=== PATIENT | female | born 1965 | race African-American/Black ===

== ENCOUNTER 2021-04-23 10:44 | Outpatient (CLI) | payer OTHER, SELFPAY ==
--- NOTE | 2021-04-23 | ECHO_ITS ---
Patient Info Name: Rosa Babb Age: 55 years : 1965 Gender: Female Ht: 62 in Wt: 220 lbs BSA: 2.14 m2 HR: 85 bpm BP: 115 / 69 mmHg Heart Rhythm: Sinus Rhythm Technical Quality: Good Exam Date: 04/23/2021 11:19 AM Exam Location: [facility] Patient Status: Outpatient Admit Date: 04/23/2021 Staff Ordering Physician: Aaron Smith MD Supervisor Special Effects: Lexi Attending Provider: Aaron Smith MD Referring Physician: Luis HERRON; Exam Type: CA echo doppler color flow Study Info Indications Z12.31 - Encounter for screening mammogram for malignant neoplasm of breast Complete two-dimensional, color flow and Doppler transthoracic echocardiogram is performed. Summary 1. Complete two-dimensional, color flow and Doppler transthoracic echocardiogram is performed. 2. Normal left ventricular size thickness and contractility, normal ejection fraction. 3. No valvular abnormalities. Left Ventricle Left ventricular chamber dimension is normal. Left ventricular systolic function is normal, estimated at 60-65%. The left ventricular diastolic function is normal. Right Ventricle Right ventricular chamber dimension is normal. Left Atria Left atrial chamber dimension is normal. Right Atria Right atrial chamber dimension is normal. Aortic Valve The aortic valve is normal. Pulmonic Valve The pulmonic valve is normal. Mitral Valve The mitral valve has normal leaflets. Tricuspid Valve The tricuspid valve leaflets are normal. Pericardium/Pleural The pericardium appears normal. Aorta The aortic root size at the sinus of Valsalva is normal. Left Ventricular Outflow Tract Name Value Normal LVOT 2D LVOT Diameter 2.0 cm LVOT Doppler LVOT Peak Gradient 6 mmHg LVOT Mean Gradient 4 mmHg LVOT VTI 25 cm LVOT VTI/AV VTI Ratio 0.5 LVOT Stroke Volume 81 ml LVOT CO 17.5 l/min LVOT CI 8.1 l/min/m2 Pulmonic Valve Name Value Normal PV Doppler PV Peak Gradient 6 mmHg Mitral Valve Name Value Normal MV Doppler MV Decel Angelina 336 cm/s2 MV PHT 68 ms MV Area (PHT) 3.3 cm2 4.0-5.0 MV Diastolic Function MV E Peak Velocity 78 cm/s MV A Peak Velocity 81
== END 2021-04-23 10:45 | disposition home or self-care (01) ==
LOC: ANHCARD 10:46
PROVIDERS: PCP Family Medicine; Visit Provider Internal Medicine Hematology & Oncology
DX: C50.012 Malignant neoplasm of nipple and areola, left female breast (principal); Z17.0 Estrogen receptor positive status [ER+]
CPT/HCPCS: 93306

== ENCOUNTER → 2021-06-21 01:10 | Outpatient (CLI) | payer OTHER, SELFPAY ==
[2021-06-21 22:45] LABS: SARS-CoV-2 RNA PCR Negative
== END ==
PROVIDERS: PCP Family Medicine
DX: Z01.812 Encounter for preprocedural laboratory examination (principal); C50.012 Malignant neoplasm of nipple and areola, left female breast; Z17.0 Estrogen receptor positive status [ER+]; Z20.822 Contact with and (suspected) exposure to COVID-19
CPT/HCPCS: C9803; U0003; U0005

== ENCOUNTER 2021-09-24 08:28 | Outpatient (CLI) | payer OTHER, SELFPAY ==
--- NOTE | 2021-09-24 | ECHO_ITS ---
Patient Info Name: Rosa Babb Age: 56 years : 1965 Gender: Female Ht: 63 in Wt: 215 lbs BSA: 2.13 m2 HR: 78 bpm BP: 141 / 83 mmHg Technical Quality: Fair Exam Date: 09/24/2021 9:20 AM Exam Location: [facility] Patient Status: Outpatient Admit Date: 09/24/2021 Staff Ordering Physician: Aaron Smith MD Z[employer] Technician: Elina Beckett RDCS Attending Provider: Aaron Smith MD Referring Physician: Luis HERRON; Exam Type: CA echo doppler color flow Study Info Indications - MALIGNANT NEOPLASM OF TH E LEFT BREAST Complete two-dimensional, color flow and Doppler transthoracic echocardiogram is performed. Summary 1. Complete two-dimensional, color flow and Doppler transthoracic echocardiogram is performed. 2. Left ventricular chamber dimension is normal. 3. Left ventricular systolic function is normal, estimated at 60-65%. 4. There is mildly increased left ventricular wall thickness. 5. The left ventricular diastolic function is grade I diastolic dysfunction. 6. E/e' 9 is minimally elevated. 7. There is mild aortic valve sclerosis. 8. There is trace mitral valve regurgitation. 9. No pulmonary hypertension, estimated pulmonary arterial systolic pressure is 35 mmHg. Left Ventricle E/e' 9 is minimally elevated. Left ventricular chamber dimension is normal. Left ventricular systolic function is normal, estimated at 60-65%. There is mildly increased left ventricular wall thickness. The left ventricular diastolic function is grade I diastolic dysfunction. Right Ventricle Right ventricular chamber dimension is normal. Right ventricular systolic function is normal. Left Atria Left atrial chamber dimension is normal. Right Atria Right atrial chamber dimension is normal. Aortic Valve The aortic valve is trileaflet. There is mild aortic valve sclerosis. There is no aortic valve stenosis. There is no aortic valve regurgitation. Pulmonic Valve There is no pulmonic regurgitation. Mitral Valve There is no mitral valve stenosis. There is trace mitral valve regurgitation. Tricuspid Valve There is no tricuspid valve regurgitation. No pulmonary hypertension, estimated pulmonary arterial systolic pressure is 35 mmHg. Pericardium/Pleural There is no pericardial effusion. Inferior Vena Cava Normal inferior vena cava with >50% collapse upon inspiration consistent with normal right atrial pressure, 5 mmHg. Aorta The aortic root size at the sinus of Valsalva is normal. Left Ventricular Outflow Tract Name Value Normal LVOT 2D LVOT Diameter 2.0 cm LVOT Doppler LVOT Peak Gradient 5 mmHg LVOT Mean Gradient 3 mmHg LVOT VTI 22 cm LVOT VTI/AV VTI Ratio 0.7 LVOT Stroke Volume 70 ml LVOT CO 13.7 l/min LVOT CI 6.5 l/min/m2 Pulmonic Valve Name Value
== END 2021-09-24 08:29 | disposition home or self-care (01) ==
LOC: ANHCARD 08:32
PROVIDERS: PCP Family Medicine; Visit Provider Internal Medicine Hematology & Oncology
DX: C50.012 Malignant neoplasm of nipple and areola, left female breast (principal); Z17.0 Estrogen receptor positive status [ER+]; I35.1 Nonrheumatic aortic (valve) insufficiency
CPT/HCPCS: 93306

== ENCOUNTER 2021-10-20 13:40 | Outpatient (CLI) | payer OTHER, SELFPAY ==
[2021-10-20 15:11] LABS: Cholesterol 207 mg/dL (0-200); HDL Direct 49 mg/dL; Triglycerides 154 mg/dL (<150)
[2021-10-20 15:16] LABS: Hemoglobin A1C 7.2 % (<5.7)
[2021-10-20 15:21] LABS: LDL Cholesterol Direct 108 mg/dL
[2021-10-20 15:46] LABS: Vitamin D 25 Hydroxy 30.7 ng/mL
== END 2021-10-20 13:41 | disposition home or self-care (01) ==
LOC: ANHLAB 13:44
PROVIDERS: PCP Family Medicine; Visit Provider Internal Medicine Hematology & Oncology
DX: E78.2 Mixed hyperlipidemia (principal); E11.9 Type 2 diabetes mellitus without complications; E55.9 Vitamin D deficiency, unspecified
CPT/HCPCS: 36415; 80061; 82306; 83036

== ENCOUNTER 2022-02-06 12:29 | Outpatient (CLI) | payer OTHER, SELFPAY ==
--- NOTE | 2022-02-06 | ECHO_ITS ---
Patient Info Name: Rosa Babb Age: 56 years : 1965 Gender: Female Ht: 61 in Wt: 222 lbs BSA: 2.14 m2 HR: 78 bpm BP: 136 / 73 mmHg Technical Quality: Fair Exam Date: 02/06/2022 12:58 PM Exam Location: [facility] Patient Status: Outpatient Admit Date: 02/06/2022 Staff Ordering Physician: Aaron Smith MD Hydrodynamics Teacher: Elina Beckett RDCS Attending Provider: Aaron Smith MD Referring Physician: Luis HERRON; Exam Type: CA echo doppler color flow Study Info Indications - MALIGNANT NEOPLASM LEFT BREAST Complete two-dimensional, color flow and Doppler transthoracic echocardiogram is performed. Summary 1. Complete two-dimensional, color flow and Doppler transthoracic echocardiogram is performed. 2. Left ventricular chamber dimension is normal. 3. Left ventricular systolic function is normal, estimated at 60-65%. 4. The left ventricular diastolic function is normal. 5. E/e' tissue doppler is not performed. 6. Global longitudinal strain is not performed. 7. No pulmonary hypertension, estimated pulmonary arterial systolic pressure is 31 mmHg. Left Ventricle E/e' tissue doppler is not performed. Global longitudinal strain is not performed. Left ventricular chamber dimension is normal. Left ventricular systolic function is normal, estimated at 60-65%. The left ventricular diastolic function is normal. Right Ventricle Right ventricular chamber dimension is normal. Right ventricular systolic function is normal. Left Atria Left atrial chamber dimension is normal. Right Atria Right atrial chamber dimension is normal. Aortic Valve The aortic valve is trileaflet. There is no aortic valve stenosis. There is no aortic valve regurgitation. Pulmonic Valve There is no pulmonic regurgitation. Mitral Valve There is no mitral valve stenosis. There is no mitral valve regurgitation. Tricuspid Valve There is no tricuspid valve regurgitation. No pulmonary hypertension, estimated pulmonary arterial systolic pressure is 31 mmHg. Pericardium/Pleural There is no pericardial effusion. Inferior Vena Cava Normal inferior vena cava with >50% collapse upon inspiration consistent with normal right atrial pressure, 5 mmHg. Aorta The aortic root size at the sinus of Valsalva is normal. Left Ventricular Outflow Tract Name Value Normal LVOT 2D LVOT Diameter 2.0 cm LVOT Doppler LVOT Peak Gradient 6 mmHg LVOT Mean Gradient 4 mmHg LVOT VTI 25 cm LVOT VTI/AV VTI Ratio 0.5 LVOT Stroke Volume 79 ml LVOT CO 17.9 l/min LVOT CI 8.4 l/min/m2 Pulmonic Valve Name Value Normal PV Doppler PV Peak Gradient
== END 2022-02-06 12:30 | disposition home or self-care (01) ==
LOC: ANHCARD 12:30
PROVIDERS: PCP Family Medicine; Visit Provider Internal Medicine Hematology & Oncology
DX: C50.012 Malignant neoplasm of nipple and areola, left female breast (principal); Z17.0 Estrogen receptor positive status [ER+]
CPT/HCPCS: 93306

== ENCOUNTER 2022-04-17 14:17 | Outpatient (CLI) | payer OTHER, SELFPAY ==
--- NOTE | 2022-04-17 | ECHO_ITS ---
Patient Info Name: Rosa Babb Age: 56 years : 1965 Gender: Female Ht: 62 in Wt: 249 lbs BSA: 2.29 m2 HR: 96 bpm BP: 163 / 80 mmHg Heart Rhythm: Sinus Rhythm Technical Quality: Fair Exam Date: 04/17/2022 2:42 PM Exam Location: [facility] Patient Status: Outpatient Admit Date: 04/17/2022 Staff Ordering Physician: Aaron Smith MD Supervisor Real Estate Office: Lexi Fried RDCS Attending Provider: Aaron Smith MD Referring Physician: Luis HERRON; Exam Type: CA echo doppler color flow Study Info Indications - Left breast cancer Complete two-dimensional, color flow and Doppler transthoracic echocardiogram is performed. Summary 1. Complete two-dimensional, color flow and Doppler transthoracic echocardiogram is performed. 2. Left ventricular chamber dimension is normal. 3. Left ventricular systolic function is normal, estimated at 65-70%. 4. The left ventricular diastolic function is grade II diastolic dysfunction. 5. E/e' 6 is not elevated. 6. There is moderate aortic valve sclerosis. 7. The mitral valve has mildly calcified leaflets. 8. There is trace tricuspid valve regurgitation. 9. No pulmonary hypertension, estimated pulmonary arterial systolic pressure is 21 mmHg. Left Ventricle E/e' 6 is not elevated. Left ventricular chamber dimension is normal. Left ventricular systolic function is normal, estimated at 65-70%. The left ventricular diastolic function is grade II diastolic dysfunction. Right Ventricle Right ventricular chamber dimension is normal. Right ventricular systolic function is normal. Left Atria Left atrial chamber dimension is normal. Right Atria Right atrial chamber dimension is normal. Aortic Valve The aortic valve is trileaflet. There is moderate aortic valve sclerosis. There is no aortic valve stenosis. There is no aortic valve regurgitation. Pulmonic Valve There is no pulmonic regurgitation. Mitral Valve The mitral valve has mildly calcified leaflets. There is no mitral valve stenosis. There is no mitral valve regurgitation. Tricuspid Valve There is trace tricuspid valve regurgitation. No pulmonary hypertension, estimated pulmonary arterial systolic pressure is 21 mmHg. Pericardium/Pleural There is no pericardial effusion. Inferior Vena Cava Normal inferior vena cava with >50% collapse upon inspiration consistent with normal right atrial pressure, 5 mmHg. Aorta The aortic root size at the sinus of Valsalva is normal. Left Ventricular Outflow Tract Name Value Normal LVOT 2D LVOT Diameter 2.0 cm LVOT Doppler LVOT Peak Gradient 9 mmHg LVOT Mean Gradient 4 mmHg LVOT VTI 23 cm LVOT VTI/AV VTI Ratio 0.5 LVOT Stroke Volume 69 ml LVOT CO 6.0 l/min LVOT CI 2.6 l/min/m2 Pulmonic Valve Name Value
== END 2022-04-17 14:18 | disposition home or self-care (01) ==
PROVIDERS: PCP Family Medicine; Visit Provider Internal Medicine Hematology & Oncology
DX: C50.012 Malignant neoplasm of nipple and areola, left female breast (principal); Z17.0 Estrogen receptor positive status [ER+]
CPT/HCPCS: 93306

== ENCOUNTER 2022-06-19 15:30 | Outpatient (RCR) | payer OTHER, SELFPAY ==
--- NOTE | 2022-04-14 10:12 | PTOPEVAL ---
PHYSICAL THERAPY EVALUATION AND PLAN OF CARE 04-14-22 Thank you for referring Rosa Babb to [facility] for the diagnosis of lymphedema. Mrs. Babb is scheduled to be seen for therapy? 2 x/week for 4 weeks. Please review, sign, date and return this plan of care LARRY. I agree with and certify that the following plan of care is medically necessary. Referring Physician Date Attending Provider: Chayo Zepeda MD Past Medical History Source of Past Medical History Patient Cardiovascular History Hx Hypertension Yes: meds Respiratory History Hx Asthma Yes Hx COVID-19 Yes: taste and smell still affected Hx Pneumonia Yes Endocrine History Hx Diabetes Yes: diet control/monitor Other History Hx Cancer Yes: L breast cancer Hx Chemotherapy Yes Hx Radiation Therapy Yes Hx Other Medical Conditions Yes: 229#- had lost about 25# with chemo, now starting to gain some back Evaluation Information Diagnosis lymphedema Onset January 2022 Prior Level of Function Activity Level (Last 3 Months) Occupation [employer]- off for summer Hand Dominance Right Activity of Daily Living Ability Independent Indoor/Home Mobility Independent Community Mobility Independent Stairs Ability Independent Functional Cognition (Planning, Shopping Independent , Taking Medications) Cooking Yes Cleaning Yes Laundry Yes Shopping Yes Driving Yes Home Setting Living Situation With Adult Child Support Available Local Family Support Comments Additional Prior Level of Function reports do not have all her Comments energy level back, about 75% of what she used to be; adult son just graduated college and lives with her; is walking for fitness; does not do any arm exercises Pain Assessment Self Report Self Report Pain Level 0 Pain Score Pain Score 0: Self Report General Upper Extremity Range of Motion Reason Not Measured WNL/Left,WNL/Right Gross Upper Extremity Range of Motion no pain reported with shoulder Comments motions General Upper Extremity Strength Reason Not Measured WNL/Left,WNL/Right Gross Upper Extremity Strength Comments reports doing all her home and self care task
--- NOTE | 2022-05-12 15:57 | PTOPEVAL ---
PHYSICAL THERAPY RE-EVALUATION AND UPDATED PLAN OF CARE 05-12-22 Refer to the clinical summary below, for her status today, compared to the initial evaluation. The goals were partially achieved. Continue PT treatment 1-2 x/week for 5 weeks. Thank you for referring Rosa Babb to [facility].? Please review, sign, date and return this updated plan of care LARRY. I agree with and certify that the following plan of care is medically necessary. Referring Physician Date Attending Provider: Chayo Zepeda MD Subjective Information Rosa reports: discomfort and Query Text:As Reported By Patient/ pain are less; still have the Family firm areas; doing her self massage and using the swell pad over the tight areas; is going to have the last infusion next week, then the following week, her port site will be taken out; returning to work on Jun 08 and want to continue to get the breast softer tissue; Pain Assessment Pain Scale Pain Scale Used Numeric (1 - 10) Self Report Pain Assessment Left Chest Reported Pain Level 1 Pain Description Soreness,Tightness Pain Frequency Chronic,Continuous Other Pain Description L breast and lateral trunk Lowest Pain Intensity 1 Greatest Pain Intensity 1 Additional Pain Score Comments pain is less and stays at 1/10 Interventions Used Interventions Used By Clinicians Education,Exercise General Upper Extremity Range of Motion Reason Not Measured WNL/Left,WNL/Right Gross Upper Extremity Range of Motion active L shoulder ROM is WNL Comments and reports tightness when horizontal adduction General Upper Extremity Strength Reason Not Measured WNL/Left,WNL/Right Gross Upper Extremity Strength Comments pt reports using L arm with home and self care tasks; good functional strength Skin Inspection Location Left Breast,Left Upper Extremity,Left Anterior Upper Quadrant Skin Observations [place] Tissue Texture Firm Lymphedema Stage II Skin Inspection Comment in supine: L breast fibrotic tissue measured out from nipple: - inner breast 7 cm-- reports of soreness with palpation; upper breast 1 cm- no tenderness; outer breast 10 cm- no ten
--- NOTE | 2022-06-19 16:06 | PTOPEVAL ---
PHYSICAL THERAPY DISCHARGE REPORT 06-19-22 Refer to the clinical summary below, for her status at discharge. The goals were partially achieved. Discharge PT services. Thank you for referring Rosa Babb to [facility].? Please review, sign, date and return this Discharge report LARRY. I agree with and certify that the following plan of care is medically necessary. Referring Physician Date Attending Provider: Chayo Zepeda MD Subjective Information Rosa reports: has been doing Query Text:As Reported By Patient/ her self massage, wearing the Family compression bra and everything is the same; does not want to be touched today-- just measure her arm and be done with therapy; She has returned to work and doing ok with work and everything at home. Pain Assessment Self Report Self Report Pain Level 0 Pain Score Pain Score 0: Self Report Lymphedema Evaluation LE Circumferential Measurement Left LE Lymphedema Side Left Total Left Lower Extremity Left LE: cm Circumferential Measurement (cm) Skin Inspection Location Left Upper Extremity Tissue Texture Firm Skin Inspection Comment L UE with good skin color; minimal fibrosis over upper- medial humerus area; in sitting, with posterior view, she has edema over R and L upper-lateral trunk; pt did not want her trunk or breast area examined today-- stated it is the same, nothing has changed ; education/review with pt: continue self MLD, skin monitor, wear compression over breasts and trunk; she did not have any questions ; reinforced with her to call if she has any other questions or concerns. And if need to continue therapy, would need a new dr order. UE Circumferential Measurement Left UE Lymphedema Side Left Mid-Proximal Third Finger (cm) 6.2 Palm (cm) 19.4 Wrist Crease (cm) 16 4 cm From Wrist (cm) 18.8 8 cm From Wrist (cm) 21.4 12 cm From Wrist (cm) 24.4 16 cm From Wrist (cm)
== END 2022-06-22 08:40 | disposition home or self-care (01) ==
LOC: ANHPT 15:30
PROVIDERS: PCP Family Medicine
DX: I89.0 Lymphedema, not elsewhere classified (principal); C50.012 Malignant neoplasm of nipple and areola, left female breast; Z17.0 Estrogen receptor positive status [ER+]
CPT/HCPCS: 97140; 97161

== ENCOUNTER 2022-12-07 15:08 | Outpatient (CLI) | payer OTHER, SELFPAY ==
[2022-12-07 18:36] LABS: Cholesterol 231 mg/dL (0-200); HDL Direct 50 mg/dL; Triglycerides 143 mg/dL (<150)
[2022-12-07 18:47] LABS: LDL Cholesterol Direct 116 mg/dL
== END 2022-12-07 15:09 | disposition home or self-care (01) ==
LOC: ANHLAB 15:09
PROVIDERS: PCP Family Medicine; Visit Provider Family Medicine
DX: E11.9 Type 2 diabetes mellitus without complications (principal); E78.2 Mixed hyperlipidemia
CPT/HCPCS: 36415; 80061; 83036

== ENCOUNTER 2023-01-26 13:40 | Outpatient (CLI) | payer OTHER, SELFPAY ==
--- NOTE | ~2023-01-26 | DEXA_ITS ---
Bone Density Report Name: KEVIN CHAKRABORTY Age: 57 Sex: Female Ethnicity: Black Date of : 1965 Indication: postmenopausal; screening for osteoporosis; height loss; cancer; asthma or emphysema; hysterectomy; Referring Provider: BOLA VASQUEZ Study: Bone densitometry was performed. Exam Date: January 26, 2023 Accession number: [id number] Bone Density: Region BMD T-score Z-score Classification AP Spine(L1-L4) 1.166 1.1 1.6 Normal Femoral Neck (Left) 0.802 -0.4 0.0 Normal Total Hip (Left) 1.084 1.2 1.1 Normal Femoral Neck (Right) 0.772 -0.7 -0.3 Normal Total Hip (Right) 0.984 0.3 0.4 Normal Total Hip Mean 1.034 0.8 0.8 Normal World Health Organization criteria for BMD impression classify patients as: Normal (T-score at or above -1.0), Osteopenia (T-score between -1.0 and -2.5), or Osteoporosis (T-score at or below -2.5). 10-year Fracture Risk: FRAX not reported because: All T-scores for Spine Total, Hip Total, Femoral Neck at or above -1.0 Clinical Information Provided by Patient: Has the following medical conditions: Asthma or Emphysema, Cancer, Hysterectomy Patient maximum height was 62 Menopause Age: 38 No regular weight bearing exercise Drinks caffeinated beverages Onset of menses at age 11 Number of children 1 Impression: The patient has normal bone mass. Discussion: BONE DENSITY IS ABOVE THE MINIMUM DESIRABLE LEVEL AT ALL SKELETAL SITES TESTED. This patient?s bone mineral density is above the minimum desirable level (T-score -1.0 or better) at all sites measured. The patient should follow a healthful lifestyle (good nutrition with adequate calcium and vitamin D, and appropriate weight-bearing exercise). Follow-Up: Consider repeating this study in 5 years or sooner if there is some new clinical indication. Reported by: NYLA on 01/26/2023 2:06:00 PM. Reviewed, dictated and finalized at location [facility]
== END 2023-01-26 13:41 | disposition home or self-care (01) ==
PROVIDERS: PCP Family Medicine; Visit Provider Internal Medicine Hematology & Oncology
DX: M85.89 Other specified disorders of bone density and structure, multiple sites (principal)
CPT/HCPCS: 77080

== ENCOUNTER 2023-07-26 15:13 | Outpatient (CLI) | payer OTHER, SELFPAY ==
[2023-07-26 15:28] LABS: Basophils Percent Auto 0.2 % (0.2-1.2); Hematocrit 39.7 % (37.0-47.0); Hemoglobin 12.9 g/dL (12.0-15.0); Immature Granulocyte Absolute 0.01 K/mm3 (0.00-0.031); Immature Granulocyte Percent A 0.2 % (0-0.5); Lymphocytes Absolute Auto 1.68 K/mm3 (0.9-3.2); Mean Corpuscular HGB Conc 32.5 g/dl (32-36); Mean Corpuscular Hemoglobin 27.8 pg (26-34); Mean Corpuscular Volume 85.6 fl (80-100); Mean Platelet Volume 9.2 fl (7.4-10.4); Monocytes Absolute Auto 0.4 K/mm3 (0.1-0.6); Neutrophils Absolute Auto 4.4 K/mm3 (1.3-6.7); Neutrophils Percent Auto 67.6 % (45.5-73.1); Platelet Count Result 285 k/mm3 (150-375); Red Blood Count 4.64 M/mm3 (4.2-5.4); Red Cell Distribution Width 13.2 % (11.5-14.5); White Blood Count 6.5 K/mm3 (4.5-10.0)
[2023-07-26 16:43] LABS: Cholesterol 223 mg/dL (0-200); HDL Direct 65 mg/dL; Triglycerides 88 mg/dL (<150)
[2023-07-26 16:44] LABS: Alanine Aminotransferase 19 U/L (6-35); Albumin Level 4.1 g/dL (3.5-5.1); Alkaline Phosphatase 84 U/L (38-126); Anion Gap 6 mmol/L (8-16); Aspartate Amino Transferase 23 U/L (14-36); Bilirubin,Total 0.3 mg/dL (0.2-1.3); Blood Urea Nitrogen 12 mg/dL (7-17); Calcium 9.1 mg/dL (8.4-10.2); Carbon Dioxide 31 mmol/L (22-30); Chloride 104 mmol/L (98-107); Estimated Glomerular Filt Rate > 60; Glucose 105 mg/dL (65-110); Potassium 3.5 mmol/L (3.4-5.0); Sodium 141 mmol/L (137-145)
[2023-07-26 16:45] LABS: Creatinine Urine 217.9 mg/dL
[2023-07-26 16:50] LABS: MALB Creatinine Ratio 3.1 mg/g (0-30); Microalbumin Urine Random 6.8 mg/L (0-16.7)
[2023-07-26 16:54] LABS: LDL Cholesterol Direct 123 mg/dL
[2023-07-26 16:58] LABS: Hemoglobin A1C 6.3 % (<5.7)
[2023-07-29 05:23] LABS: CA 15-3 18 U/mL (<32)
== END 2023-07-26 15:14 | disposition home or self-care (01) ==
PROVIDERS: PCP Family Medicine; Visit Provider Internal Medicine Hematology & Oncology
DX: E78.2 Mixed hyperlipidemia (principal); R79.0 Abnormal level of blood mineral; E11.9 Type 2 diabetes mellitus without complications; R53.83 Other fatigue; C50.012 Malignant neoplasm of nipple and areola, left female breast; Z17.0 Estrogen receptor positive status [ER+]
CPT/HCPCS: 36415; 80053; 80061; 82043; 82728; 83036; 84443; 85025; 86300

== ENCOUNTER 2023-11-30 15:27 | Outpatient (CLI) | payer OTHER, SELFPAY ==
[2023-11-30 15:48] LABS: Basophils Percent Auto 0.2 % (0.2-1.2); Hematocrit 40.5 % (37.0-47.0); Hemoglobin 13.1 g/dL (12.0-15.0); Immature Granulocyte Absolute 0.01 K/mm3 (0.00-0.031); Immature Granulocyte Percent A 0.2 % (0-0.5); Lymphocytes Absolute Auto 1.64 K/mm3 (0.9-3.2); Lymphocytes Percent Auto 29.7 % (18.3-44.2); Mean Corpuscular HGB Conc 32.3 g/dl (32-36); Mean Corpuscular Hemoglobin 27.5 pg (26-34); Mean Corpuscular Volume 84.9 fl (80-100); Mean Platelet Volume 9.6 fl (7.4-10.4); Monocytes Absolute Auto 0.5 K/mm3 (0.1-0.6); Monocytes Percent Auto 8.5 % (2.6-8.5); Neutrophils Absolute Auto 3.4 K/mm3 (1.3-6.7); Neutrophils Percent Auto 61.4 % (45.5-73.1); Platelet Count Result 275 k/mm3 (150-375); Red Blood Count 4.77 M/mm3 (4.2-5.4); Red Cell Distribution Width 12.9 % (11.5-14.5); White Blood Count 5.5 K/mm3 (4.5-10.0)
[2023-11-30 16:28] LABS: Alanine Aminotransferase 16 U/L (6-35); Alkaline Phosphatase 77 U/L (38-126); Anion Gap 5 mmol/L (8-16); Aspartate Amino Transferase 20 U/L (14-36); Bilirubin,Total 0.3 mg/dL (0.2-1.3); Blood Urea Nitrogen 16 mg/dL (7-17); Calcium 9.9 mg/dL (8.4-10.2); Carbon Dioxide 31 mmol/L (22-30); Chloride 103 mmol/L (98-107); Estimated Glomerular Filt Rate > 60; Glucose 115 mg/dL (65-110); Potassium 3.9 mmol/L (3.4-5.0); Sodium 139 mmol/L (137-145)
[2023-11-30 17:19] LABS: Hemoglobin A1C 6.1 % (<5.7)
[2023-12-03 06:31] LABS: CA 15-3 18 U/mL (<32)
== END 2023-11-30 15:28 | disposition home or self-care (01) ==
LOC: ANHLAB 15:29
PROVIDERS: PCP Family Medicine; Visit Provider Internal Medicine Hematology & Oncology
DX: C50.012 Malignant neoplasm of nipple and areola, left female breast (principal); Z17.0 Estrogen receptor positive status [ER+]; E11.9 Type 2 diabetes mellitus without complications
CPT/HCPCS: 36415; 80053; 83036; 85025; 86300

== ENCOUNTER 2024-03-31 09:54 | Outpatient (CLI) | payer OTHER, SELFPAY ==
[2024-03-31 10:10] LABS: Basophils Percent Auto 0.2 % (0.2-1.2); Hematocrit 41.6 % (37.0-47.0); Hemoglobin 13.5 g/dL (12.0-15.0); Immature Granulocyte Absolute 0.01 K/mm3 (0.00-0.031); Immature Granulocyte Percent A 0.2 % (0-0.5); Lymphocytes Absolute Auto 1.42 K/mm3 (0.9-3.2); Lymphocytes Percent Auto 26.2 % (18.3-44.2); Mean Corpuscular HGB Conc 32.5 g/dl (32-36); Mean Corpuscular Hemoglobin 27.9 pg (26-34); Mean Platelet Volume 9.5 fl (7.4-10.4); Monocytes Absolute Auto 0.3 K/mm3 (0.1-0.6); Monocytes Percent Auto 5.9 % (2.6-8.5); Neutrophils Absolute Auto 3.7 K/mm3 (1.3-6.7); Neutrophils Percent Auto 67.5 % (45.5-73.1); Platelet Count Result 292 k/mm3 (150-375); Red Blood Count 4.84 M/mm3 (4.2-5.4); Red Cell Distribution Width 13.3 % (11.5-14.5); White Blood Count 5.4 K/mm3 (4.5-10.0)
[2024-03-31 12:48] LABS: Alanine Aminotransferase 17 U/L (6-35); Alkaline Phosphatase 80 U/L (38-126); Anion Gap 5 mmol/L (4-12); Aspartate Amino Transferase 23 U/L (14-36); Bilirubin,Total 0.4 mg/dL (0.2-1.3); Blood Urea Nitrogen 10 mg/dL (7-17); Calcium 9.1 mg/dL (8.4-10.2); Carbon Dioxide 29 mmol/L (22-30); Chloride 107 mmol/L (98-107); Estimated Glomerular Filt Rate > 60; Glucose 132 mg/dL (65-110); Potassium 3.3 mmol/L (3.4-5.0); Sodium 141 mmol/L (137-145)
[2024-04-04 07:09] LABS: CA 15-3 19 U/mL (<32)
== END 2024-03-31 09:55 | disposition home or self-care (01) ==
LOC: ANHLAB 09:56
PROVIDERS: PCP Family Medicine; Visit Provider Internal Medicine Hematology & Oncology
DX: C50.012 Malignant neoplasm of nipple and areola, left female breast (principal); Z17.0 Estrogen receptor positive status [ER+]
CPT/HCPCS: 36415; 80053; 85025; 86300

== ENCOUNTER 2024-07-26 14:52 | Outpatient (CLI) | payer OTHER, SELFPAY ==
[2024-07-26 15:16] LABS: Basophils Percent Auto 0.2 % (0.2-1.2); Hematocrit 40.3 % (37.0-47.0); Hemoglobin 13.1 g/dL (12.0-15.0); Immature Granulocyte Absolute 0.02 K/mm3 (0.00-0.031); Immature Granulocyte Percent A 0.3 % (0-0.5); Lymphocytes Absolute Auto 1.59 K/mm3 (0.9-3.2); Mean Corpuscular HGB Conc 32.5 g/dl (32-36); Mean Corpuscular Hemoglobin 27.9 pg (26-34); Mean Corpuscular Volume 85.7 fl (80-100); Mean Platelet Volume 9.4 fl (7.4-10.4); Monocytes Absolute Auto 0.5 K/mm3 (0.1-0.6); Monocytes Percent Auto 7.4 % (2.6-8.5); Neutrophils Absolute Auto 4.3 K/mm3 (1.3-6.7); Neutrophils Percent Auto 67.1 % (45.5-73.1); Platelet Count Result 256 k/mm3 (150-375); Red Cell Distribution Width 13.1 % (11.5-14.5); White Blood Count 6.4 K/mm3 (4.5-10.0)
[2024-07-26 16:29] LABS: Alanine Aminotransferase 24 U/L (6-35); Alkaline Phosphatase 95 U/L (38-126); Anion Gap 8 mmol/L (4-12); Aspartate Amino Transferase 26 U/L (14-36); Bilirubin,Total 0.2 mg/dL (0.2-1.3); Blood Urea Nitrogen 15 mg/dL (7-17); Calcium 9.3 mg/dL (8.4-10.2); Carbon Dioxide 26 mmol/L (22-30); Chloride 106 mmol/L (98-107); Estimated Glomerular Filt Rate > 60; Glucose 92 mg/dL (65-110); Potassium 4.2 mmol/L (3.4-5.0); Sodium 140 mmol/L (137-145)
[2024-07-27 07:35] LABS: CA 15-3 19 U/mL (<32)
== END 2024-07-26 14:53 | disposition home or self-care (01) ==
LOC: ANHLAB 14:55
PROVIDERS: Visit Provider Internal Medicine Hematology & Oncology
DX: C50.012 Malignant neoplasm of nipple and areola, left female breast (principal); Z17.0 Estrogen receptor positive status [ER+]
CPT/HCPCS: 36415; 80053; 85025; 86300

== ENCOUNTER 2024-10-02 14:46 | Outpatient (CLI) | payer OTHER, SELFPAY ==
--- NOTE | ~2024-10-02 | DEXA_ITS ---
Bone Density Report Name: KEVIN CHAKRABORTY Age: 59 Sex: Female Ethnicity: Black Date of : 1965 Indication: postmenopausal; screening for osteoporosis; height loss; cancer; asthma or emphysema; hysterectomy; Referring Provider: BOLA VASQUEZ Study: Bone densitometry was performed. Exam Date: October 02, 2024 Accession number: [id number] Bone Density: Region BMD T-score Z-score Classification AP Spine(L1-L4) 1.130 0.8 1.5 Normal Femoral Neck (Left) 0.800 -0.4 0.0 Normal Total Hip (Left) 1.010 0.6 0.7 Normal Femoral Neck (Right) 0.737 -1.0 -0.4 Normal Total Hip (Right) 0.982 0.3 0.5 Normal Total Hip Mean 0.996 0.5 0.6 Normal World Health Organization criteria for BMD impression classify patients as: Normal (T-score at or above -1.0), Osteopenia (T-score between -1.0 and -2.5), or Osteoporosis (T-score at or below -2.5). 10-year Fracture Risk: FRAX not reported because: All T-scores for Spine Total, Hip Total, Femoral Neck at or above -1.0 Previous Exams: Region Exam Age BMD T-score BMD Change BMD Change Date g/cm2 vs Baseline vs Previous AP Spine (L1-L4) 10/02/2024 59 1.130 0.8 -0.035 (-3.0%) -0.035 (-3.0%) 01/26/2023 57 1.166 1.1 Total Hip(Left) 10/02/2024 59 1.010 0.6 -0.075 (-6.9%) -0.075 (-6.9%) 01/26/2023 57 1.084 1.2 Total Hip(Right) 10/02/2024 59 0.982 0.3 -0.002 (-0.2%) -0.002 (-0.2%) 01/26/2023 57 0.984 0.3 *Denotes significance at 95% confidence level, LSC for AP Spine = 0.022 g/cm2, LSC for Total Hip = 0.027 g/cm2 Clinical Information Provided by Patient: Has the following medical conditions: Asthma or Emphysema, Cancer, Hysterectomy, breast ca Patient maximum height was 62 Menopause Age: 38 No regular weight bearing exercise Drinks caffeinated beverages Onset of menses at age 11 Number of children 1 Impression: The patient has normal bone mass. The BMD for the AP Spine (L1-L4) decreased, changing by -3.0% since the last DXA exam. The BMD for the Total Hip(Left) decreased, changing by -6.9% since the last DXA exam. Discussion: BONE DENSITY IS ABOVE THE MINIMUM DESIRABLE LEVEL AT ALL SKELETAL SITES TESTED. This patient?s bone mineral density is above the minimum desirable level (T-score -1.0 or better) at all sites measured. The patient should follow a healthful lifestyle (good nutrition with adequate calcium and vitamin D, and appropriate weight-bearing exercise). Follow-Up: Consider repeating this study in 3 to 4 years to reassess this patient's status, or sooner if there is some new clinical indication. Reported by: PIERCE on 10/02/2024 3:15:00 PM. Reviewed, dictated and finalized at location A. [facility]
== END 2024-10-02 14:47 | disposition home or self-care (01) ==
LOC: ANHIMG 14:48
PROVIDERS: PCP Family Medicine; Visit Provider Internal Medicine Hematology & Oncology
DX: M85.89 Other specified disorders of bone density and structure, multiple sites (principal)
CPT/HCPCS: 77080

== ENCOUNTER 2024-10-16 00:27 | Day surgery (SDC) | payer OTHER, SELFPAY ==
[2024-10-05 14:40] VITALS: BMI 39.2
[2024-10-16 10:51] VITALS: BP 178/82; PULSE 86; RESP 16; TEMP 36.1; O2SAT 98
[2024-10-16] MEDS: LACTATED RINGERS 1,000 ML 150 ML IV CONT (11:01)
[2024-10-16 11:12] LABS: Glucose Point of Care 72 mg/dl (65-105)
--- NOTE | 2024-10-16 11:42 | WPDANESEPPF ---
Anes - Initial Pre Proc Eval Procedure: Operation Date: 10/16/24 12:30 Proposed Procedures p Screening Colonoscopy - Anshul Mccoy MD Date/Time: 10/16/24 11:42 Surgeon: Anshul Mccoy MD Pre Op Diagnosis: neoplasm screening Patient Data Age: 59 Gender: F Height: 1.57 m Weight: 96.5 kg Last Vital Signs Temp 97.0 F L 10/16/24 10:51 Pulse 86 10/16/24 10:51 Resp 16 10/16/24 10:51 BP 178/82 H 10/16/24 10:51 Pulse Ox 98 10/16/24 10:51 O2 Del Method Room Air 10/16/24 10:51 Allergies Allergy/AdvReac Type Severity Reaction Status Date / Time latex Allergy Mild Rash Verified 10/16/24 10:48 Home Medications ?Medication ?Instructions ?Recorded ?Confirmed ?Type anastrozole 1 mg tablet (Arimidex) 1 mg PO DAILY 10/13/21 10/16/24 History cholecalciferol (vitamin D3) 25 25 mcg PO DAILY #30 caps 10/13/21 10/16/24 Rx mcg (1,000 unit) capsule clobetasol 0.05 % topical cream 1 applic topical DAILY #90 grams 04/01/22 10/05/24 Rx montelukast 10 mg tablet 10 mg PO QHS #90 tabs 11/09/22 10/05/24 Rx fluticasone 500 mcg-salmeterol 50 1 inh inhalation Q12H 03/23/23 10/05/24 History mcg/dose blistr powdr for inhalation (Advair Diskus) budesonide 160 mcg-glycopyr 9 2 inh inhalation BID #10.7 grams 05/10/23 10/16/24 Rx mcg-formot 4.8 mcg/actuation HFA inhaler (Breztri Aerosphere) albuterol sulfate 90 mcg/actuation 1 inh inhalation QID PRN Shortness 02/10/24 10/16/24 Rx aerosol inhaler Of Breath Or Wheezing #3 device dulaglutide 0.75 mg/0.5 mL 0.75 mg (0.5 mL) subcut WEEKLY #6 06/22/24 10/05/24 Rx subcutaneous pen injector mL (Trulicity) atorvastatin 10 mg tablet 10 mg PO DAILY #90 tabs 08/01/24 10/16/24 Rx Laboratory Tests 10/16/24 11:10 POC Capillary Glucose 72 mg/dl (65-105) Patient hx anesthesia problems: none Family hx anesthesia problems: none Results Review: All pre-operative results and documents have been reviewed as part of the pre-operative evaluation. [facility] Past Medical History Medical History BRADY (obstructive sleep apnea) Vitamin D deficiency Malignant neoplasm of breast Hyperlipidemia associated with type 2 diabetes mellitus Mild persistent asthma Diabetes Essential hypertension Surgical History Surgical History History of lumpectomy of left breast H/O: hysterectomy Family History Family History Mother Diabetes mellitus Depression Hypertension High cholesterol Brain cancer Glaucoma Father Diabetes mellitus Hypertension Cerebrovascular accident Social History Social History Smoking status: Never smoker Second hand tobacco smoke exposure: No Alcohol intake: never Alcohol use details: rare Substance use: never Substance use type: does not use Lack of Transportation: No Lack of Food: Never True Current Housing: I Have Housing Concerned About Future Housing: No Difficulty Paying Gas/Electric Bills: No Difficulty Paying for Meds: No Currently Unemployed: No Education: Associate Degree Difficulty w/ Childcare or Family Care: No Living arrangements: with family Occupation/Education: occupation Gender identity (if verbalized by the patient): Female Spiritual care concerns: No Agree to blood products: Yes Anes - Eval Final PreProcedure Day of Procedure 10/16/24 11:42 Patient weight: obese Heart: regular rate and rhythm Lungs: clear to auscultation Airway: Mallampati scale class II Neurological: alert and oriented Last oral intake: >/= 8 hours ASA classification: III Emergent: no Anesthetic plan: proceed Anesthesia type and monitoring: general GIVS and standard monitoring Results Review: All pre-operative results and documents have been reviewed as part of the pre-operative evaluation. Hyperlipidemia, obesity, breast ca, in remission. Informed Consent: The patient's anesthetic plan and its attendant risks and benefits were discussed with the patient/family/POA. Questions were solicited and answers provided to the satisfaction of the patient/family/POA.
--- NOTE | 2024-10-16 11:49 | PM.HPGS ---
History of Present Illness History of Present Illness Consent: Risks, benefits, and alternatives have been discussed and questions answered. Patient agrees to proceed with procedure. Chief complaint: neoplasm screening Narrative: Rosa Babb is a 59 year old female here for screening colonoscopy, last one 10 years ago Review of Systems Review of Systems: All systems reviewed & are unremarkable except as noted in HPI and below PMFSH Past Medical History Medical History (Updated 10/16/24 @ 11:49 by Anshul Mccoy MD) Colon cancer screening BRADY (obstructive sleep apnea) Vitamin D deficiency Malignant neoplasm of breast Hyperlipidemia associated with type 2 diabetes mellitus Mild persistent asthma Diabetes Essential hypertension Surgical History Surgical History History of lumpectomy of left breast H/O: hysterectomy Family History Family History Mother Diabetes mellitus Depression Hypertension High cholesterol Brain cancer Glaucoma Father Diabetes mellitus Hypertension Cerebrovascular accident Social History Social History Smoking status: Never smoker Second hand tobacco smoke exposure: No Alcohol intake: never Alcohol use details: rare Substance use: never Substance use type: does not use Lack of Transportation: No Lack of Food: Never True Current Housing: I Have Housing Concerned About Future Housing: No Difficulty Paying Gas/Electric Bills: No Difficulty Paying for Meds: No Currently Unemployed: No Education: Associate Degree Difficulty w/ Childcare or Family Care: No Living arrangements: with family Occupation/Education: occupation Gender identity (if verbalized by the patient): Female Spiritual care concerns: No Agree to blood products: Yes Meds Home Medications and Allergies Home Medications ?Medication ?Instructions ?Recorded ?Confirmed ?Type anastrozole 1 mg tablet (Arimidex) 1 mg PO DAILY 10/13/21 10/16/24 History cholecalciferol (vitamin D3) 25 25 mcg PO DAILY #30 caps 10/13/21 10/16/24 Rx mcg (1,000 unit) capsule clobetasol 0.05 % topical cream 1 applic topical DAILY #90 grams 04/01/22 10/05/24 Rx montelukast 10 mg tablet 10 mg PO QHS #90 tabs 11/09/22 10/05/24 Rx fluticasone 500 mcg-salmeterol 50 1 inh inhalation Q12H 03/23/23 10/05/24 History mcg/dose blistr powdr for inhalation (Advair Diskus) budesonide 160 mcg-glycopyr 9 2 inh inhalation BID #10.7 grams 05/10/23 10/16/24 Rx mcg-formot 4.8 mcg/actuation HFA inhaler (Breztri Aerosphere) albuterol sulfate 90 mcg/actuation 1 inh inhalation QID PRN Shortness 02/10/24 10/16/24 Rx aerosol inhaler Of Breath Or Wheezing #3 device dulaglutide 0.75 mg/0.5 mL 0.75 mg (0.5 mL) subcut WEEKLY #6 06/22/24 10/05/24 Rx subcutaneous pen injector mL (Trulicity) atorvastatin 10 mg tablet 10 mg PO DAILY #90 tabs 08/01/24 10/16/24 Rx Allergies Allergy/AdvReac Type Severity Reaction Status Date / Time latex Allergy Mild Rash Verified 10/16/24 10:48 Vital Signs Vital Signs - 24 hr 10/16/24 10:51 Temperature 97.0 F L Pulse Rate 86 Respiratory Rate 16 Blood Pressure 178/82 H Pulse Oximetry 98 Oxygen Delivery Room Air Exam Const: General: comfortable and no acute distress HENMT: Face/Nose/Sinus: Normal nares present Eyes: General: appearance normal, both eyes and all related structures Neck: Neck: no JVD Resp: Auscultation: clear to auscultation bilaterally Cardio: Rate: regular rate Rhythm: regular rhythm GI: Inspection: non-distended GI Palp: Yes Soft to palpation Skin: General skin exam: normal color Neuro: General: gait normal Speech: normal speech Extrem: General: normal to inspection Psych: Mental Status: mental status grossly normal Assessment and Plan Assessment and plan (1) Colon cancer screening: Code(s): Z12.11 - Encounter for screening for malignant neoplasm of colon Status: Acute Assessment and Plan: colonoscopy
[2024-10-16 12:06] VITALS: BP 136/67; PULSE 82; RESP 18; O2SAT 100
[2024-10-16 12:16] VITALS: BP 153/72; PULSE 77; RESP 22; O2SAT 100
[2024-10-16 12:26] VITALS: BP 157/79; PULSE 67; RESP 20; O2SAT 100
[2024-10-16 12:36] LABS: Glucose Point of Care 54 mg/dl (65-105)
--- NOTE | 2024-10-16 12:38 | SUR.PHASEII ---
Notified of patients low blood sugar of 54, patient is not having symptoms. Patient was given crackers and juice.
[2024-10-16 12:55] LABS: Glucose Point of Care 54 mg/dl (65-105)
--- NOTE | 2024-10-16 13:16 | SUR.PHASEII ---
Patients blood sugar was 88, was notified
[2024-10-16 13:17] LABS: Glucose Point of Care 88 mg/dl (65-105)
--- OUTSIDE RECORDS SUMMARY | 2024-10-23 02:07 | XMS_ITS ---
Author Organization [facility] Address [address] [place] [address] Phone Care Team Providers Care Alarm Installation Technician Name Role Phone MARIUM العلي, EROS Lucas Unavailable [phone] Problems Includes: Active, inactive, and resolved Problems All Visits Onset Date Resolved Date Provider Condition S tatus Breast Neoplasm Malignant 12/26/2020 PABLO TA RN [facility] Active Last Documented On 12/26/2020 12:54PM ; [facility] Note: invasive ductal carcinoma 12/23/20 b x Lichen Sclerosus Et Atrophicus 08/05/2020 PABLO TA RN [facility] Active Last Documented On 08/05/2020 2:01PM ; [facility] Note: Unchanged Diabetes Mellitus Type 2 08/05/2020 PABLO TA RN [facility] Active Last Documented On 0 2:01PM ; [facility] Hypertension Systemic 08/05/2020 PABLO TA RN [place] Active Last Documented On 0 2:01PM ; [facility] Plan of Treatment Findings Encounter Date Ordered Clinical summary pro vided to patient WELL WOMAN EXAM with PABLO TA RN [place] 08/05/2020 Last Documented On 0 2:06PM ; [facility] Ordered weight loss diet WELL WOMAN EXAM with ISABELLA TA RN [facility] 08/05/2020 Last Documented On 0 2:06PM ; [facility] Ordered Clinical summary pro vided to patient NEW TRANSPORTATION DISPATCH MANAGER EXAM with PABLO TA RN [place] 06/21/2019 Last Documented On 9 5:20PM ; [facility] Ordered weight loss diet NEW TRANSPORTATION DISPATCH MANAGER EXAM with PABLO TA RN [place] 06/21/2019 Last Documented On 9 5:20PM ; [facility] Instructions to patient Instructed to call if excess gilberto bleeding or abdominal/pelvic pain Last Documented On 0 1:37PM ; [facility] Instructions For Patient: Mo nthly Self Breast Exam Last Documented On 0 1:37PM ; [facility] Recommend diet and exercise at least 30 min three times per week Last Documented On 0 1:37PM ; [facility] Instructions for patient : K eep the area around the vulva dry. Allow the area to have exposure to air. Avoid irritants such as fabric softeners and perfumed soaps.~ Last Documented On 0 3:32PM ; [facility] Lose weight Last Documented On 9 5:08PM ; [facility] Instructed to call if excess gilberto bleeding or abdominal/pelvic pain Last Documented On 9 5:08PM ; [facility] Instructions For Patient: Mo nthly Self Breast Exam Last Documented On 9 5:08PM ; [facility] Recommend diet and exercise at least 30 min three times per week Last Documented On 9 5:08PM ; [facility] Education and Decision Aids were provided during visit for: Patient Education: Daily franny cium and vitamin D Last Documented On 0 1:37PM ; [facility] Patient Education: Daily franny cium and vitamin D Last Documented On 9 5:08PM ; [facility] Assessments Includes: Assessments for all patient encounters Findings Encounter Date Lichen sclerosus et atrophicus WELL WOMA N EXAM with PABLO TA RN [place] 08/05/2020 Last Documented On 0 2:06PM ; [facility] Routine gynecological exam w ith abnormal findings WELL WOMAN EXAM with PABLO TA RN [place] 08/05/2020 Last Documented On 0 2:06PM ; [facility] Lichen sclerosus et atrophic us resolving per pt. report MED CHECK with PABLO MARQUEZ 11/13/2019 Last Documented On 0 3:35PM ; [facility] Lichen sclerosus et atrophicus 2 WK CK-UP with Shayy TA RN [facility] 08/08/2019 Last Documented On 9 11:21AM ; [facility] Assessment of abnormal Pap s mear of cervix PROCEDURE OFFICE with PABLO TA RN [facility] 07/11/2019 Last Documented On 9 5:14PM ; [facility] Vaginitis PROCEDURE OFFICE with PABLO BRIGGS RN [facility] 07/11/2019 Last Documented On 9 5:14PM ; [facility] Vulvitis r/o lichens PROCEDURE OFFICE with PABLO TA RN [facility] 07/11/2019 Last Documented On 9 5:14PM ; [facility] Furunculosis NEW TRANSPORTATION DISPATCH MANAGER EXAM with PABLO TA RN [facility] 06/21/2019 Last Documented On 9 5:20PM ; [facility] Routine gynecological exam w ith abnormal findings NEW TRANSPORTATION DISPATCH MANAGER EXAM with PABLO TA RN [facility] 06/21/2019 Last Documented On 9 5:20PM ; [facility] Vaginitis NEW TRANSPORTATION DISPATCH MANAGER EXAM with PABLO TA RN [facility] 06/21/2019 Last Documented On 9 5:20PM ; [facility] Vulvar ulceration NEW TRANSPORTATION DISPATCH MANAGER EXAM with PABLO Mcintyre RN [facility] 06/21/2019 Last Documented On 9 5:20PM ; [facility] Vulvitis r/o lichens NEW TRANSPORTATION DISPATCH MANAGER EXAM with PABLO PEREZ RN [facility] 06/21/2019 Last Documented On 9 5:20PM ; [facility] Instructions Includes: Instructions for all patient encounters Instructions to patient Instructed to call if excess gilberto bleeding or abdominal/pelvic pain Last Documented On 0 1:37PM ; [facility] Instructions For Patient: Mo nthly Self Breast Exam Last Documented On 0 1:37PM ; [facility] Recommend diet and exercise at least 30 min three times per week Last Documented On 0 1:37PM ; [facility] Instructions for patient : K eep the area around the vulva dry. Allow the area to have exposure to air. Avoid irritants such as fabric softeners and perfumed soaps.~ Last Documented On 0 3:32PM ; [facility] Lose weight Last Documented On 9 5:08PM ; [facility] Instructed to call if excess gilberto bleeding or abdominal/pelvic pain Last Documented On 9 5:08PM ; [facility] Instructions For Patient: Mo nthly Self Breast Exam Last Documented On 9 5:08PM ; [facility] Recommend diet and exercise at least 30 min three times per week Last Documented On 9 5:08PM ; [facility] Education and Decision Aids were provided during visit for: Patient Education: Daily franny cium and vitamin D Last Documented On 0 1:37PM ; [facility] Patient Education: Daily franny cium and vitamin D Last Documented On 9 5:08PM ; [facility] Medical Equipment - Implanted Devices Includes: Current and historical Devices No Medical Equipment Recorded Medications Includes: Current and historical Medications Current Medications (continue as prescribed) Lisinopril-hydroCHLOROthiazide 20-12.5 MG Oral Tablet 06/21/2019 Provider: Diagnosis: TAKE 2 TABLETS ONCE DAILY Last Documented On 06/21/2019 3:31PM By Rose Ny MA ; [facility] Turmeric 500 MG Oral Capsule 06/21/2019 Provider: Diagnosis: TAKE TWO TABLETS TWICE A DAY Last Documented On 06/21/2019 3:32PM By Rose Ny MA ; [facility] Meloxicam 15 MG Oral Tablet 06/21/2019 Provider: Diagnosis: TAKE ONE TABLET ONCE A DAY Last Documented On 06/21/2019 3:32PM By Rose Ny MA ; [facility] Indomethacin 25 MG Oral Capsule 06/21/2019 Provider: Diagnosis: TAKE ONE CAPSULE 3 TIMES A DAY NEEDED FOR KVNG N Last Documented On 06/21/2019 3:31PM By Rose Ny MA ; [facility] glipiZIDE 5 MG Oral Tablet 06/21/2019 Provider: Diagnosis: TAKE ONE TABLET DAILY Last Documented On 06/21/2019 3:30PM By Rose Ny MA ; [facility] Fluticasone Propionate (Inha l) 50 MCG/BLIST Inhalation Aerosol Powder Breath Activated 06/21/2019 Provider: Diagnosis: INHALE ONE PUFF TWO TIMES A DAY Last Documented On 06/21/2019 3:30PM By Rose Ny MA ; [facility] Cyanocobalamin 500 MCG Oral Tablet 06/21/2019 Provid er: Diagnosis: TAKE ONCE DAILY Last Documented On 06/21/2019 3:28PM By Rose Ny MA ; [facility] cloNIDine HCl 0.1 MG Oral Tablet 06/21/2019 Provider : Diagnosis: TAKE ONE TABLET TWICE A DAY Last Documented On 06/21/2019 3:27PM By Rose Ny MA ; [facility] amLODIPine Besylate 5 MG Oral Tablet 06/21/2019 Prov ider: Diagnosis: TAKE ONE TABLET DAILY Last Documented On 06/21/2019 3:25PM By Rose Ny MA ; [facility] Past Medications on file Clobetasol Propionate 0.05% External Cream 10/02/2021 - 10/22/2021 Provider: PABLO MARQUEZ Diagnosis: Lichen sclerosus et atrophicus DIRECTED, APPLY 2 TIMES W SHELBY no further refills authorized pt needs annual exam Last Documented On 1 8:07AM By PABLO KNAPP ; [facility] Clobetasol Propionate 0.05% External Cream 08/05/2020 - 10/02/2021 Provider: PABLO MARQUEZ Diagnosis: Lichen sclerosus et atrophicus as directed APPLY 3 times we ekly to ext. genitalia Last Documented On 1 8:07AM By PABLO WOODRUFF ; [facility] Clobetasol Propionate 0.05% External Cream 08/05/2020 - 08/05/2020 Provider: PABLO MARQUEZ Diagnosis: Lichen sclerosus et atrophicus as directed APPLY 3 times we ekly to ext. genitalia Last Documented On 0 1:56PM By PABLO WOODRUFF ; [facility] Sulfamethoxazole-Trimethopri m 800-160 MG Oral Tablet 08/05/2020 - 08/19/2020 Provider: PABLO TA RN [place] Diagnosis: Furuncle, unspecified One tablet twice a day ONE TAB 2 TIMES A DAY WIT H FOOD Last Documented On 0 2:05PM By PABLO WOODRUFF ; [facility] Fluconazole 150 MG Oral Tablet 08/05/2020 - 08/09/2020 Provider: PABLO TA RN [place] Diagnosis: Acute vulvitis 1 daily Pt. is to take 1 day 3 and 1 day 7 of antibiotics Last Documented On 0 2:05PM By PABLO KNAPP ; [facility] Clobetasol Propionate 0.05% External Cream 11/13/2019 - 08/05/2020 Provider: PABLO Navarro [place] Diagnosis: Lichen sclerosus et atrophicus as directed APPLY BID X 1 WE EKS THEN 1 TIME DAILY X 1 WEEK, THEN 2 TIMES WEEKLY Last Documented On 0 1:55PM By PABLO KNAPP ; [facility] Clobetasol Propionate 0.05% External Cream 08/08/2019 - 11/06/2019 Provider: PABLO Navarro [place] Diagnosis: Lichen sclerosus et atrophicus as directed apply two times weekly after BID x 1 week then qd use x 1 week Last Documented On 9 11:19AM By PABLO KNAPP ; [facility] Clobetasol Propionate 0.05% External Cream 08/08/2019 - 11/13/2019 Provider: PABLO Navarro [place] Diagnosis: Lichen sclerosus et atrophicus as directed APPLY BID X 1 WE EKS THEN 1 TIME DAILY X 1 WEEK, THEN 2 TIMES WEEKLY Last Documented On 0 3:34PM By PABLO KNAPP ; [facility] Clindamycin HCl 300 MG Oral Capsule 07/17/2019 - 07/24/2019 Provider: PABLO TA RN [place] Diagnosis: Acute vulvitis One tablet twice a day Last Documented On 9 9:57AM By PABLO KNAPP ; [facility] Sulfamethoxazole-Trimethopri m 800-160 MG Oral Tablet 07/11/2019 - 07/21/2019 Provider: PABLO TA RN [place] Diagnosis: Acute vulvitis One tablet twice a day ONE TAB 2 TIMES A DAY WIT H FOOD Last Documented On 9 4:52PM By PABLO KNAPP ; [facility] Naproxen 500 MG Oral Tablet 07/11/2019 - 07/18/2019 Provider: PABLO MARQUEZ Diagnosis: Acute vulvitis One tablet twice a day ONE T AB TWICE A DAY WITH FOOD DON'T EXCEED 2 TABS IN 24 HOURS Last Documented On 9 5:24PM By PABLO WOODRUFF ; [facility] Terazol 7 0.4% Vaginal Cream 07/11/2019 - 07/25/2019 Provider: PABLO MARQUEZ Diagnosis: Acute vulvitis as directed 1 KRISH IN VAGINA EVERY NIGHT X 14 apply bid to external genitalia Last Documented On 9 4:52PM By PABLO WOODRUFF ; [facility] Triamcinolone Acetonide 0.1% External Cream 06/21/2019 - 06/28/2019 Provider: PABLO MARQUEZ Diagnosis: Acute vulvitis as directed PLEASE DISPENSE 80 GM USE 50/50 MIX W/NYSTATIN CREAM AND APPLY TO AFFECTED AREAS 3 TIMES A DAY DIRECTED Last Documented On 9 5:00PM By PABLO KNAPP ; [facility] Nystatin 588781 UNIT/GM External Cream 06/21/2019 - 07/12/2019 Provider: PABLO TA RN [place] Diagnosis: Acute vulvitis as directed 50/50 mix with t riamcinolone cream apply THREE TIMES A DAY TO AFFECTED AREAS Last Documented On 9 5:00PM By PABLO WOODRUFF ; [facility] Sulfamethoxazole-Trimethopri m 800-160 MG Oral Tablet 06/21/2019 - 06/28/2019 Provider: PABLO MARQUEZ Diagnosis: Furuncle, unspecified One tablet twice a day ONE TAB 2 TIMES A DAY WIT H FOOD Last Documented On 9 5:00PM By PABLO WOODRUFF ; [facility] Terconazole 0.4% Vaginal Cream 06/21/2019 - 07/12/2019 Provider: PABLO MARQUEZ Diagnosis: Acute vaginitis as directed one krish in vagin a every night x 7 apply bid to perineum Last Documented On 9 5:00PM By PABLO WOODRUFF ; [facility] Aspirin 81 MG Oral Tablet 06/21/2019 - 08/08/2019 Prov ider: Diagnosis: TAKE ONE TABLET DAILY OR NEEDED Last Documented On 08/08/2019 9:14AM By Eloisa LR ; [facility] Medications Administered Includes: Administered Medications in patient's chart No Administered Medications Recorded Results Includes: Results from 10/23/2023 through 10/23/2024 No Results Recorded For Specified Dates History of Present Illness History of Present Illness not supported for this document type No History of Present Illness Recorded Social History Description Last Updated Activities 08/05/2020 Last Documented On 0 2:06PM ; [facility] Alcohol use occa 08/05/2020 Last Documented On 0 2:06PM ; [facility] Alcohol use: 2 drinks or less per day oc c 08/05/2020 Last Documented On 0 2:06PM ; [facility] Education history 08/05/2020 Last Documented On 0 2:06PM ; [facility] Non-smoker 08/05/2020 Last Documented On 0 2:06PM ; [facility] Not a smoker 08/05/2020 Last Documented On 0 2:06PM ; [facility] Not using drugs 08/05/2020 Last Documented On 0 2:06PM ; [facility] 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[employer] mom recently from brain cancer 08/05/2020 Last Documented On 0 2:06PM ; [facility] Sexually active 08/05/2020 Last Documented On 0 2:06PM ; [facility] Single partner x 6 yrs 08/05/2020 Last Documented On 0 2:06PM ; [facility] Smoking status : Never smoker 08/05/2020 Last Documented On 0 2:06PM ; [facility] Procedures and Surgical History Surgical History Last Updated History of hysterectomy 08/08/2019 Last Documented On 9 11:21AM ; [facility] History of vaginal hysterect albina PARTIAL d/t menorrhagia ovaries intact bilaterally 06/21/2019 Last Documented On 9 5:20PM ; [facility] Medical History Includes: Medical History in patient's chart Description Last Updated Sexually active with 1 partners in the l ast year 08/08/2019 Last Documented On 9 11:21AM ; [facility] History of asthma 08/08/2019 Last Documented On 9 11:21AM ; [facility] History of benign essential hypertension 08/08/2019 Last Documented On 9 11:21AM ; [facility] History of type 1 diabetes mellitus 07/25 Last Documented On 9 11:21AM ; [facility] LMP: 2009 08/08/2019 Last Documented On 9 11:21AM ; [facility] Sexually active 08/08/2019 Last Documented On 9 11:21AM ; [facility] History of a DXA of the lateral lumbar s pine was performed 07/04/2019 08/08/2019 Last Documented On 9 11:21AM ; [facility] History of complete colonoscopy 2016 Last Documented On 9 11:21AM ; [facility] History of Pap smear done 07/12/201907/25 Last Documented On 9 11:21AM ; [facility] History of screening mammogram was perfo rmed 05/09/2019 08/08/2019 Last Documented On 9 11:21AM ; [facility] Last pap smear date 06/21/2019 07/11/2019 Last Documented On 9 5:14PM ; [facility] A colonoscopy was performed 2016 [facility] Last Documented On 9 5:20PM ; [facility] Result: normal 06/21/2019 Last Documented On 9 5:20PM ; [facility] High blood pressure ~Diabete s- herself and parents ~Kindey failure- father ~Brain cancer- mother ~Infertility 06/21/2019 Last Documented On 9 5:20PM ; [facility] 1 06/21/2019 Last Documented On 9 5:20PM ; [facility] Last mammogram date: 05/09/2019 9 Last Documented On 9 5:20PM ; [facility] Para 1 06/21/2019 Last Documented On 9 5:20PM ; [facility] Family History Includes: Family History in patient's chart Description Last Updated Maternal history of hypertension both pa rtents 08/08/2019 Last Documented On 9 11:21AM ; [facility] Maternal history of pure hypercholestero lemia both parents 08/08/2019 Last Documented On 9 11:21AM ; [facility] No family history of malignant female br east neoplasm 08/08/2019 Last Documented On 9 11:21AM ; [facility] No family history of malignant neoplasm of large intestine 08/08/2019 Last Documented On 9 11:21AM ; [facility] No family history of malignant neoplasm of the ovary 08/08/2019 Last Documented On 9 11:21AM ; [facility] No family history of uterine cancer 07/25 Last Documented On 9 11:21AM ; [facility] Paternal history of diabetes mellitus agustina th parents 08/08/2019 Last Documented On 9 11:21AM ; [facility] Review of Systems Review of Systems not supported for this document type No Review of Systems Recorded Mental Status No Mental Status Recorded Functional Status No Functional Status Recorded Physical Exam Physical Exam not supported for this document type No Physical Exam Recorded Allergies Includes: Active, inactive, and resolved Allergies No Known Allergies Insurance Includes: Active Insurance Policies Plan Name Member ID Group # Subscriber Relationship Effect gilberto Dates 1 - [facility] [id number] KEVIN CHAKRABORTY Self Clinical Notes Includes: Signed Clinical Notes starting from 11/13/2022 No Clinical Notes Recorded
--- OUTSIDE RECORDS SUMMARY | 2024-10-23 02:07 | XMS_ITS ---
Care Plan - [facility] Created on: October 23, 2024 KEVIN CHAKRABORTY : 1965 Sex: Female Author Organization [facility] Address [address] [place] [address] Phone Care Team Providers Care Real Estate Asset Manager Name Role Phone MARIUM العلي, EROS C Unavailable [phone]
--- OUTSIDE RECORDS SUMMARY | 2024-10-23 02:07 | XMS_ITS | Clinical Summary ---
Author Organization [facility] Address [address] [place] [address] Phone Care Team Providers Care Chart Collector Name Role Phone EROS CAUSEY MD Unavailable [phone] Reason for Visit and Chief Complaint CHART UPDATE Problems Includes: Problems addressed during this encounter and other active Problems Current Visit Onset Date Resolved Date Provider Conditio n Status Breast Neoplasm Malignant 12/26/2020 PABLO TA RN [facility] Active Last Documented On 12/26/2020 12:54PM ; [facility] Note: invasive ductal carcinoma 12/23/20 b x Past Visits Onset Date Resolved Date Provider Condition Status Lichen Sclerosus Et Atrophicus 08/05/2020 PABLO TA RN [facility] Active Last Documented On 08/05/2020 2:01PM ; [facility] Note: Unchanged Diabetes Mellitus Type 2 08/05/2020 PABLO TA RN [facility] Active Last Documented On 0 2:01PM ; [facility] Hypertension Systemic 08/05/2020 PABLO TA RN [facility] Active Last Documented On 0 2:01PM ; [facility] Plan of Treatment No Plan of Treatment Recorded Assessments Includes: Assessments from this encounter No Assessments Recorded Medical Equipment - Implanted Devices Includes: Current Devices No Medical Equipment Recorded Medications Includes: Medications discussed during this encounter and other current Medications Current Medications (continue as prescribed) Lisinopril-hydroCHLOROthiazide 20-12.5 MG Oral Tablet 06/21/2019 Provider: Diagnosis: TAKE 2 TABLETS ONCE DAILY Last Documented On 06/21/2019 3:31PM By Rose Ny MA ; [facility] Turmeric 500 MG Oral Capsule 06/21/2019 Provider: Diagnosis: TAKE TWO TABLETS TWICE A DAY Last Documented On 06/21/2019 3:32PM By Rose Ny MA ; [facility] Meloxicam 15 MG Oral Tablet 06/21/2019 Provider: Diagnosis: TAKE ONE TABLET ONCE A DAY Last Documented On 06/21/2019 3:32PM By Rose Ny MA ; [facility] Indomethacin 25 MG Oral Capsule 06/21/2019 Provider: Diagnosis: TAKE ONE CAPSULE 3 TIMES A DAY NEEDED FOR KVNG N Last Documented On 06/21/2019 3:31PM By Rose Ny MA ; [facility] glipiZIDE 5 MG Oral Tablet 06/21/2019 Provider: Diagnosis: TAKE ONE TABLET DAILY Last Documented On 06/21/2019 3:30PM By Rose Ny MA ; [facility] Fluticasone Propionate (Inha l) 50 MCG/BLIST Inhalation Aerosol Powder Breath Activated 06/21/2019 Provider: Diagnosis: INHALE ONE PUFF TWO TIMES A DAY Last Documented On 06/21/2019 3:30PM By Rose Ny MA ; [facility] Cyanocobalamin 500 MCG Oral Tablet 06/21/2019 Provid er: Diagnosis: TAKE ONCE DAILY Last Documented On 06/21/2019 3:28PM By Rose Ny MA ; [facility] cloNIDine HCl 0.1 MG Oral Tablet 06/21/2019 Provider : Diagnosis: TAKE ONE TABLET TWICE A DAY Last Documented On 06/21/2019 3:27PM By Rose Ny MA ; [facility] amLODIPine Besylate 5 MG Oral Tablet 06/21/2019 Prov ider: Diagnosis: TAKE ONE TABLET DAILY Last Documented On 06/21/2019 3:25PM By Rose Ny MA ; [facility] Past Medications on file Clobetasol Propionate 0.05% External Cream 10/02/2021 - 10/22/2021 Provider: PABLO Navarro [place] Diagnosis: Lichen sclerosus et atrophicus DIRECTED, APPLY 2 TIMES W EEKLY no further refills authorized pt needs annual exam Last Documented On 8:07AM By PABLO TA HI- ; [facility] Sulfamethoxazole-Trimethopri m 800-160 MG Oral Tablet 08/05/2020 - 08/19/2020 Provider: PABLO TA RN [facility] Diagnosis: Furuncle, unspecified One tablet twice a day ONE TAB 2 TIMES A DAY WIT H FOOD Last Documented On 0 2:05PM By PABLO KNAPP ; [facility] Fluconazole 150 MG Oral Tablet 08/05/2020 - 08/09/2020 Provider: PABLO TA RN [place] Diagnosis: Acute vulvitis 1 daily Pt. is to take 1 day 3 and 1 day 7 of antibiotics Last Documented On 0 2:05PM By PABLO KNAPP ; [facility] Clobetasol Propionate 0.05% External Cream 08/08/2019 - 11/06/2019 Provider: PABLO Navarro [place] Diagnosis: Lichen sclerosus et atrophicus as directed apply two times weekly after BID x 1 week then qd use x 1 week Last Documented On 9 11:19AM By PABLO KNAPP ; [facility] Clindamycin HCl 300 MG Oral Capsule 07/17/2019 - 07/24/2019 Provider: PABLO TA RN [facility] Diagnosis: Acute vulvitis One tablet twice a day Last Documented On 9 9:57AM By PABLO KNAPP ; [facility] Sulfamethoxazole-Trimethopri m 800-160 MG Oral Tablet 07/11/2019 - 07/21/2019 Provider: PABLO TA RN [place] Diagnosis: Acute vulvitis One tablet twice a day ONE TAB 2 TIMES A DAY WIT H FOOD Last Documented On 9 4:52PM By PABLO KNAPP ; [facility] Naproxen 500 MG Oral Tablet 07/11/2019 - 07/18/2019 Provider: PABLO TA RN [place] Diagnosis: Acute vulvitis One tablet twice a day ONE T AB TWICE A DAY WITH FOOD DON'T EXCEED 2 TABS IN 24 HOURS Last Documented On 9 5:24PM By PABLO WOODRUFF ; [facility] Terazol 7 0.4% Vaginal Cream 07/11/2019 - 07/25/2019 Provider: PABLO TA RN [place] Diagnosis: Acute vulvitis as directed 1 ARLET IN VAGINA EVERY NIGHT X 14 apply bid to external genitalia Last Documented On 9 4:52PM By PABLO KNAPP ; [facility] Triamcinolone Acetonide 0.1% External Cream 06/21/2019 - 06/28/2019 Provider: PABLO TA RN [facility] Diagnosis: Acute vulvitis as directed PLEASE DISPENSE 80 GM USE 50/50 MIX W/NYSTATIN CREAM AND APPLY TO AFFECTED AREAS 3 TIMES A DAY DIRECTED Last Documented On 9 5:00PM By PABLO KNAPP ; [facility] Nystatin [id number] UNIT/GM External Cream 06/21/2019 - 07/12/2019 Provider: PABLO TA RN [place] Diagnosis: Acute vulvitis as directed 50/50 mix with t riamcinolone cream apply THREE TIMES A DAY TO AFFECTED AREAS Last Documented On 9 5:00PM By PABLO KNAPP ; [facility] Sulfamethoxazole-Trimethopri m 800-160 MG Oral Tablet 06/21/2019 - 06/28/2019 Provider: PABLO TA RN [place] Diagnosis: Furuncle, unspecified One tablet twice a day ONE TAB 2 TIMES A DAY WIT H FOOD Last Documented On 9 5:00PM By PABLO WOODRUFF ; [facility] Terconazole 0.4% Vaginal Cream 06/21/2019 - 07/12/2019 Provider: PABLO TA RN [facility] Diagnosis: Acute vaginitis as directed one arlet in vagin a every night x 7 apply bid to perineum Last Documented On 9 5:00PM By PABLO KNAPP ; [facility] Medications Administered Includes: Administered Medications from this encounter No Administered Medications Recorded Results Includes: Results discussed during this encounter No Results Recorded For Specified Dates History of Present Illness Includes: History of Present Illness from this encounter No History of Present Illness Recorded Social History No Social History Recorded - Smoking Status Unknown Procedures and Surgical History Surgical History Last Updated History of hysterectomy 08/08/2019 Last Documented On 1 12:51PM ; [facility] History of vaginal hysterect albina PARTIAL d/t menorrhagia ovaries intact bilaterally 06/21/2019 Last Documented On 1 12:51PM ; [facility] Medical History Includes: Medical History addressed during this encounter Description Last Updated Sexually active with 1 partners in the l ast year 08/08/2019 Last Documented On 1 12:51PM ; [facility] History of asthma 08/08/2019 Last Documented On 1 12:51PM ; [facility] History of benign essential hypertension 08/08/2019 Last Documented On 1 12:51PM ; [facility] History of type 1 diabetes mellitus 07/25 Last Documented On 1 12:51PM ; [facility] LMP: 2009 08/08/2019 Last Documented On 1 12:51PM ; [facility] Sexually active 08/08/2019 Last Documented On 1 12:51PM ; [facility] History of a DXA of the lateral lumbar s pine was performed 07/04/2019 08/08/2019 Last Documented On 1 12:51PM ; [facility] History of complete colonoscopy 2016 Last Documented On 1 12:51PM ; [facility] History of Pap smear done 07/12/201907/25 Last Documented On 1 12:51PM ; [facility] History of screening mammogram was perfo rmed 05/09/2019 08/08/2019 Last Documented On 1 12:51PM ; [facility] Last pap smear date 06/21/2019 07/11/2019 Last Documented On 1 12:51PM ; [facility] A colonoscopy was performed 2016 [facility] Last Documented On 1 12:51PM ; [facility] Result: normal 06/21/2019 Last Documented On 1 12:51PM ; [facility] High blood pressure ~Diabete s- herself and parents ~Kindey failure- father ~Brain cancer- mother ~Infertility 06/21/2019 Last Documented On 1 12:51PM ; [facility] 1 06/21/2019 Last Documented On 1 12:51PM ; [facility] Last mammogram date: 05/09/2019 9 Last Documented On 1 12:51PM ; [facility] Para 1 06/21/2019 Last Documented On 1 12:51PM ; [facility] Family History Includes: Family History addressed during this encounter Description Last Updated Maternal history of hypertension both pa rtents 08/08/2019 Last Documented On 1 12:51PM ; [facility] Maternal history of pure hypercholestero lemia both parents 08/08/2019 Last Documented On 1 12:51PM ; [facility] No family history of malignant female br east neoplasm 08/08/2019 Last Documented On 1 12:51PM ; [facility] No family history of malignant neoplasm of large intestine 08/08/2019 Last Documented On 1 12:51PM ; [facility] No family history of malignant neoplasm of the ovary 08/08/2019 Last Documented On 12:51PM ; [facility] No family history of uterine cancer 07/25 Last Documented On 1 12:51PM ; [facility] Paternal history of diabetes mellitus agustina th parents 08/08/2019 Last Documented On 1 12:51PM ; [facility] Review of Systems Includes: Review of Systems from this encounter No Review of Systems Recorded Mental Status Includes: Mental Status from this encounter No Mental Status Recorded Functional Status Includes: Functional Status from this encounter No Functional Status Recorded Physical Exam Includes: Physical Exam from this encounter No Physical Exam Recorded Allergies Includes: Active Allergies No Known Allergies Encounters Encounter Provider Location Date Check-In Time Check-Out Time Diagnosis CHART UPDATE PABLO TA RN [facility] 12/26/2020 12:51PM 11:59PM Insurance Includes: Active Insurance Policies Plan Name Member ID Group # Subscriber Relationship Effect gilberto Dates 1 - [facility] [id number] KEVIN CHAKRABORTY Self Clinical Notes Includes: Clinical Notes from this encounter No Clinical Notes Recorded
--- OUTSIDE RECORDS SUMMARY | 2024-10-23 02:08 | XMS_ITS | Encounter Summary ---
Author Organization [facility] Address [address] [place] [address] Phone Care Team Providers Care Salesperson Art Objects Name Role Phone Rosa Shi MD Primary Care Provider [phone] Reason for Referral * Consult, Test & Initiate Treatment (Routine) - Closed Specialty Diagnoses / Procedures Referred By Vi t Referred To Contact Diagnoses COVID-19 Sebastian Huang, DO [address] [facility] [address] [place] [address] Phone: tel: fax: [facility] [address] [place] [address] Phone: tel: fax: Referral ID Status Reason Start Date Expiration Date Visits Re quested Visits Authorized [id number] Closed 12/03/2020 1 1 Scheduling Instructions Rosa is being referred for Covid. Please contact patient for scheduling questions or concerns. See below for Rosa's current medications, allergies and problem list. CURRENT MEDS: Current Outpatient Medications: ALBUTEROL IN, take 1 Puff by inhalation every 4 hours as needed., Disp: , Rfl: amLODIPine (NORVASC) 5 MG Tablet, Take 1 Tablet by mouth daily., Disp: 90 Tablet, Rfl: 0 atorvastatin (LIPITOR) 20 MG Tablet, Take 1 Tablet by mouth daily., Disp: 90 Tablet, Rfl: 0 Blood Glucose Monitoring Suppl Device, Diagnosis: Diabetes type 2 Blood testing frequency: 3 times a day, Disp: 1 Each, Rfl: 0 dexamethasone 6 MG Tablet, Take 1 Tablet by mouth daily (with breakfast) for 8 days., Disp: 8 Tablet, Rfl: 0 fluticasone-salmeterol (Advair Diskus) 100-50 MCG/DOSE AEROSOL POWDER, BREATH ACTIVATED, take 1 Puff by inhalation 2 times daily as needed. Indications: Asthma, Disp: , Rfl: Glucose Blood Strip, Diagnosis: Diabetes type 2 Blood testing frequency: 3 times a day, Disp: 100 Strip, Rfl: 0 Lancets Misc, Use as directed, Disp: 100 Lancet, Rfl: 0 metFORMIN (GLUCOPHAGE) 500 MG Tablet, Take 1 Tablet by mouth daily., Disp: 180 Tablet, Rfl: 0 No current facility-administered medications for this visit. ALLERGIES: No Known Allergies PROBLEM LIST: Patient Active Problem List: COVID-19 HTN (hypertension) Type 2 diabetes mellitus, without long-term current use of insulin (HCC) Insomnia Hyperlipidemia ICAL INVESTIGATOR Reason for Visit * Reason Onset Date Comments Transition of Care 12/02/2020 Encounter Details Date Type Department Care Team (Latest Contact Info) Description 12/02/2020 Post Discharge Follow-up [facility] [employer] Designer Management [address] [place] [address] Cathy Cortes RN COVID-19 (Primary Dx) Social History Tobacco Use Types Packs/Day Years Used Date Smoking Tobacco: Never Smokeless Tobacco: Never Alcohol Use Standard Drinks/Week Comments Not Asked 0 (1 standard drink = 0.6 oz pur e alcohol) OCASIONALLY AUDIT-C Answer Date Recorded Q1: How often do you have a drink containing alc ohol? Never 11/28/2020 Average Number of Drinks Not on file 021 Frequency of Binge Drinking Not on file 01/2021 Comments No Sex and Gender Information Value Date Recorded Sex Assigned at Not on file Legal Sex Female 8:52 PM CDT Gender Identity Not on file Sexual Orientation Not on file COVID-19 Exposure Response Date Recorded In the last month, have you been in contact with someone who was confirmed or suspected to have Coronavirus / COVID-19? Yes 11/28/2020 7:05 AM CLERICAL INVESTIGATOR documented as of this encounter Miscellaneous Notes * Telephone Encounter - Cathy Cortes RN - 12/03/2020 10:18 AM CLERICAL INVESTIGATOR Care Management: Called patient for post discharge follow up; second attempt Patient states she is doing much better; denies any shortness of breath; denies any fever, chills, or cough She did not have any questions regarding discharge instructions; medication review complete; no issues She got all her medications and diabetic testing supplies picked up with out any issues She is checking her blood sugars; states she is checking three times a day before meals She states this am blood sugar was 109; educated on dexamethasone and how can increase blood sugars; she verbalized understanding Patient states she is scheduled for follow up on 12/09 with pcp; denies any issues with transportation Patient referred to [facility] program ICAL INVESTIGATOR * Telephone Encounter - Cathy Cortes RN - 12/02/2020 8:28 AM CST Care Management: Patient was discharged from [facility] on 12/01/2020 Dx: Acute respiratory failure with hypoxia (HCC) Principal problem Called patient for post discharge follow up; no answer Will attempt again at a later time ICAL INVESTIGATOR documented in this encounter Plan of Treatment Scheduled Referrals Name Type Priority Associated Diagnoses Order Schedule COVID ADVANCED MONITORING REFERRAL Outpatient Referral Routine COVID-19 Expected: 12/03/2020, Expires: 12/03/2021 documented as of this encounter Visit Diagnoses Diagnosis COVID-19- Primary documented in this encounter Additional Health Concerns Infection Onset Date Last Indicated Resolved Time COVID - 19 Confirmed 11/28/2020 11/28/2020 021 12:18 AM CLERICAL INVESTIGATOR documented as of this encounter Care Teams Salesperson Art Objects Relationship Specialty Start Date End Date Rosa Shi MD [address] [place] [address] PCP - General Family Medicine 11/28/20 documented as of this encounter
--- OUTSIDE RECORDS SUMMARY | 2024-10-23 02:08 | XMS_ITS | Clinical Summary ---
Author Organization [facility] Address [address] [place] [address] Phone Care Team Providers Care Car Whacker Name Role Phone MARIUM العلي, EROS Lucas Unavailable [phone] Reason for Visit and Chief Complaint The patient presents for a problem. L labial biopsy site check. Pt reports she completed all rx as directed, and is feeling much better after tx - The Chief Complaint is: 2 week site check, pt doing well as of today Problems Includes: Problems addressed during this encounter and other active Problems Current Visit Onset Date Resolved Date Provider Conditio n Status Lichen Sclerosus Et Atrophicus 08/05/2020 PABLO TA RN [facility] Active Last Documented On 08/05/2020 2:01PM ; [facility] Note: Unchanged Past Visits Onset Date Resolved Date Provider Condition Status Breast Neoplasm Malignant 12/26/2020 PABLO TA RN [facility] Active Last Documented On 12/26/2020 12:54PM ; [facility] Note: invasive ductal carcinoma 12/23/20 b x Diabetes Mellitus Type 2 08/05/2020 PABLO TA RN [place] Active Last Documented On 0 2:01PM ; [facility] Hypertension Systemic 08/05/2020 PABLO TA RN [place] Active Last Documented On 0 2:01PM ; [facility] Plan of Treatment No Plan of Treatment Recorded Assessments Includes: Assessments from this encounter Findings - Lichen sclerosus et atrophicus - Last Documented On 08/08/2019 11:21AM ; [facility] Medical Equipment - Implanted Devices Includes: Current Devices No Medical Equipment Recorded Medications Includes: Medications discussed during this encounter and other current Medications Discontinued / Stopped on this date on 06/21/2019 Aspirin 81 MG Oral Tablet Provider: Diagnosis: Last Documented On 08/08/2019 9:14AM By Eloisa LR ; [facility] New / Renewed during this visit PABLO TA RN [place] on 08/08/2019 Clobetasol Propionate 0.05% External Cream Provider: PABLO TA RN Melanie P 90 day supply: 1 tube, 0 refills Diagnosis: Lichen sclerosus et atrophicus as directed apply two times weekly after BID x 1 week then qd use x 1 week Pharmacy: [address] [address] - Last Documented On 9 11:19AM By PABLO MARQUEZ- ; [facility] Clobetasol Propionate 0.05% External Cream Provider: PABLO TA RN Melanie Cook 30 day supply: 1 tube, 2 refills Diagnosis: Lichen sclerosus et atrophicus as directed APPLY BID X 1 WE EKS THEN 1 TIME DAILY X 1 WEEK, THEN 2 TIMES WEEKLY Pharmacy: [facility] [address] , [facility] [place], [address] - Last Documented On 0 3:34PM By PABLO MARQUEZ- ; [facility] Current Medications (continue as prescribed) Lisinopril-hydroCHLOROthiazide 20-12.5 MG Oral Tablet 06/21/2019 Provider: Diagnosis: TAKE 2 TABLETS ONCE DAILY Last Documented On 06/21/2019 3:31PM By Rose Ny MA ; [facility] Turmeric 500 MG Oral Capsule 06/21/2019 Provider: Diagnosis: TAKE TWO TABLETS TWICE A DAY Last Documented On 06/21/2019 3:32PM By Roes Ny MA ; [facility] Meloxicam 15 MG Oral Tablet 06/21/2019 Provider: Diagnosis: TAKE ONE TABLET ONCE A DAY Last Documented On 06/21/2019 3:32PM By Rose Ny MA ; [facility] Indomethacin 25 MG Oral Capsule 06/21/2019 Provider: Diagnosis: TAKE ONE CAPSULE 3 TIMES A DAY NEEDED FOR KVNG N Last Documented On 06/21/2019 3:31PM By Rose Ny MA ; [facility] glipiZIDE 5 MG Oral Tablet 06/21/2019 Provider: Diagnosis: TAKE ONE TABLET DAILY Last Documented On 06/21/2019 3:30PM By Rose Ny MA ; [facility] Fluticasone Propionate (Inha l) 50 MCG/BLIST Inhalation Aerosol Powder Breath Activated 06/21/2019 Provider: Diagnosis: INHALE ONE PUFF TWO TIMES A DAY Last Documented On 06/21/2019 3:30PM By Rose Ny MA ; [facility] Cyanocobalamin 500 MCG Oral Tablet 06/21/2019 Provid er: Diagnosis: TAKE ONCE DAILY Last Documented On 06/21/2019 3:28PM By Rose Ny MA ; [facility] cloNIDine HCl 0.1 MG Oral Tablet 06/21/2019 Provider : Diagnosis: TAKE ONE TABLET TWICE A DAY Last Documented On 06/21/2019 3:27PM By Rose Ny MA ; [facility] amLODIPine Besylate 5 MG Oral Tablet 06/21/2019 Prov ider: Diagnosis: TAKE ONE TABLET DAILY Last Documented On 06/21/2019 3:25PM By Rose Ny MA ; [facility] Past Medications on file Clobetasol Propionate 0.05% External Cream 10/02/2021 - 10/22/2021 Provider: PABLO Navarro [place] Diagnosis: Lichen sclerosus et atrophicus DIRECTED, APPLY 2 TIMES W EEKLY no further refills authorized pt needs annual exam Last Documented On 1 8:07AM By PABLO KNAPP ; [facility] Sulfamethoxazole-Trimethopri m 800-160 MG Oral Tablet 08/05/2020 - 08/19/2020 Provider: PABLO TA RN [place] Diagnosis: Furuncle, unspecified One tablet twice a day ONE TAB 2 TIMES A DAY WIT H FOOD Last Documented On 0 2:05PM By PABLO KNAPP ; [facility] Fluconazole 150 MG Oral Tablet 08/05/2020 - 08/09/2020 Provider: PABLO TA RN [place] Diagnosis: Acute vulvitis 1 daily Pt. is to take 1 day 3 and 1 day 7 of antibiotics Last Documented On 0 2:05PM By PABLO KNAPP ; [facility] Clindamycin HCl 300 MG Oral Capsule 07/17/2019 - 07/24/2019 Provider: PABLO MARQUEZ Diagnosis: Acute vulvitis One tablet twice a day Last Documented On 9 9:57AM By PABLO WOODRUFF ; [facility] Sulfamethoxazole-Trimethopri m 800-160 MG Oral Tablet 07/11/2019 - 07/21/2019 Provider: PABLO OSPINA Diagnosis: Acute vulvitis One tablet twice a day ONE TAB 2 TIMES A DAY WIT H FOOD Last Documented On 9 4:52PM By PABLO WOODRUFF ; [facility] Naproxen 500 MG Oral Tablet 07/11/2019 - 07/18/2019 Provider: PABLO MARQUEZ Diagnosis: Acute vulvitis One tablet twice a day ONE T AB TWICE A DAY WITH FOOD DON'T EXCEED 2 TABS IN 24 HOURS Last Documented On 9 5:24PM By PABLO WOODRUFF ; [facility] Terazol 7 0.4% Vaginal Cream 07/11/2019 - 07/25/2019 Provider: PABLO MARQUEZ Diagnosis: Acute vulvitis as directed 1 KRISH IN VAGINA EVERY NIGHT X 14 apply bid to external genitalia Last Documented On 9 4:52PM By PABLO WOODRUFF ; [facility] Triamcinolone Acetonide 0.1% External Cream 06/21/2019 - 06/28/2019 Provider: PABLO OSPINA Diagnosis: Acute vulvitis as directed PLEASE DISPENSE 80 GM USE 50/50 MIX W/NYSTATIN CREAM AND APPLY TO AFFECTED AREAS 3 TIMES A DAY DIRECTED Last Documented On 9 5:00PM By PABLO WOODRUFF ; [facility] Nystatin 073723 UNIT/GM External Cream 06/21/2019 - 07/12/2019 Provider: PABLO MARQUEZ Diagnosis: Acute vulvitis as directed 50/50 mix with t riamcinolone cream apply THREE TIMES A DAY TO AFFECTED AREAS Last Documented On 9 5:00PM By PABLO WOODRUFF ; [facility] Sulfamethoxazole-Trimethopri m 800-160 MG Oral Tablet 06/21/2019 - 06/28/2019 Provider: PABLO MARQUEZ BC Diagnosis: Furuncle, unspecified One tablet twice a day ONE TAB 2 TIMES A DAY WIT H FOOD Last Documented On 9 5:00PM By PABLO WOODRUFF ; [facility] Terconazole 0.4% Vaginal Cream 06/21/2019 - 07/12/2019 Provider: PABLO MARQUEZ BC Diagnosis: Acute vaginitis as directed one krish in vagin a every night x 7 apply bid to perineum Last Documented On 9 5:00PM By PABLO WOODRUFF ; [facility] Medications Administered Includes: Administered Medications from this encounter No Administered Medications Recorded Vital Signs Includes: Vital Signs from this encounter Vital Name 08/08/2019 09:05A Blood Pressure Sitting L 140/80 BP Cuff Size Regular Height (in) 62 Weight (lb) 232 Body Mass Index (kg/m2) 42.4 Body Surface Area (m2) 2.0 Last Documented: On 08/08/2019 9:10AM ; [facility] Results Includes: Results discussed during this encounter No Results Recorded For Specified Dates History of Present Illness Includes: History of Present Illness from this encounter ALINE CHAKRABORTY is a 53 year old female. - Allergy list reviewed - Medication list reviewed - Medication reconciliation performed Social History Description Last Updated Activities 08/05/2020 Last Documented On 9 9:05AM ; [facility] Alcohol use: 2 drinks or less per day oc c 08/05/2020 Last Documented On 9 9:05AM ; [facility] Education history 08/05/2020 Last Documented On 9 9:05AM ; [facility] Non-smoker 08/05/2020 Last Documented On 9 9:05AM ; [facility] Not a smoker 08/05/2020 Last Documented On 9 9:05AM ; [facility] Personal history social [employer] mom recently from brain cancer 08/05/2020 Last Documented On 9 9:05AM ; [facility] Sexually active 1 partner 08/05/2020 Last Documented On 9 9:05AM ; [facility] Single partner x 6 yrs 08/05/2020 Last Documented On 9 9:05AM ; [facility] Alcohol use occa 08/08/2019 Last Documented On 9 11:21AM ; [facility] Not using drugs 08/08/2019 Last Documented On 9 11:21AM ; [facility] Smoking status : Never smoker 08/08/2019 Last Documented On 9 11:21AM ; [facility] Procedures and Surgical History Includes: Procedures from this encounter Procedures Code Diagnosis Performing Provider Service L ocation Service Date education and instructions Last Documented On 9 9:50AM ; [facility] Surgical History Last Updated History of hysterectomy 08/08/2019 Last Documented On 9 11:21AM ; [facility] History of vaginal hysterect albina PARTIAL d/t menorrhagia ovaries intact bilaterally 06/21/2019 Last Documented On 9 9:03AM ; [facility] Medical History Includes: Medical History addressed during this encounter Description Last Updated Sexually active with 1 partners in the l ast year 08/08/2019 Last Documented On 9 11:21AM ; [facility] History of asthma 08/08/2019 Last Documented On 9 11:21AM ; [facility] History of benign essential hypertension 08/08/2019 Last Documented On 9 11:21AM ; [facility] History of type 1 diabetes mellitus 07/25 Last Documented On 9 11:21AM ; [facility] LMP: 2009 08/08/2019 Last Documented On 9 11:21AM ; [facility] Sexually active 08/08/2019 Last Documented On 9 11:21AM ; [facility] History of a DXA of the lateral lumbar s pine was performed 07/04/2019 08/08/2019 Last Documented On 9 11:21AM ; [facility] History of complete colonoscopy 2016 Last Documented On 9 11:21AM ; [facility] History of Pap smear done 07/12/201907/25 Last Documented On 9 11:21AM ; [facility] History of screening mammogram was perfo rmed 05/09/2019 08/08/2019 Last Documented On 9 11:21AM ; [facility] Last pap smear date 06/21/2019 07/11/2019 Last Documented On 9 9:03AM ; [facility] A colonoscopy was performed 2016 [facility] Last Documented On 9 9:03AM ; [facility] Result: normal 06/21/2019 Last Documented On 9 9:03AM ; [facility] High blood pressure ~Diabete s- herself and parents ~Kindey failure- father ~Brain cancer- mother ~Infertility 06/21/2019 Last Documented On 9 9:03AM ; [facility] 1 06/21/2019 Last Documented On 9 9:03AM ; [facility] Last mammogram date: 05/09/2019 9 Last Documented On 9 9:03AM ; [facility] Para 1 06/21/2019 Last Documented On 9 9:03AM ; [facility] Family History Includes: Family History addressed during this encounter Description Last Updated Maternal history of hypertension both pa rtents 08/08/2019 Last Documented On 9 11:21AM ; [facility] Maternal history of pure hypercholestero lemia both parents 08/08/2019 Last Documented On 9 11:21AM ; [facility] No family history of malignant female br east neoplasm 08/08/2019 Last Documented On 9 11:21AM ; [facility] No family history of malignant neoplasm of large intestine 08/08/2019 Last Documented On 9 11:21AM ; [facility] No family history of malignant neoplasm of the ovary 08/08/2019 Last Documented On 9 11:21AM ; [facility] No family history of uterine cancer 07/25 Last Documented On 9 11:21AM ; [facility] Paternal history of diabetes mellitus agustina th parents 08/08/2019 Last Documented On 9 11:21AM ; [facility] Review of Systems Includes: Review of Systems from this encounter Systemic: No fever and no chills. Head: No headache. Eyes: No vision problems. Cardiovascular: No chest pain or discomfort. Pulmonary: No dyspnea. Gastrointestinal: No nausea, no vomiting, and no abdominal pain. Genitourinary: No increase in urinary frequency. No dysuria. Skin: No skin lesions and no rash. Mental Status Includes: Mental Status from this encounter No Mental Status Recorded Functional Status Includes: Functional Status from this encounter No Functional Status Recorded Physical Exam Includes: Physical Exam from this encounter Allergies Includes: Active Allergies No Known Allergies Encounters Encounter Provider Location Date Check-In Time Check-Out Time Diagnosis 2 WK CK-UP PABLO TA RN NP [facility] ICE CREAM VAN VENDOR 9 9:02AM 9:38AM Lichen Sclerosus Et Atrophicus Insurance Includes: Active Insurance Policies Plan Name Member ID Group # Subscriber Relationship Effect gilberto Dates 1 - [facility] [id number] KEVIN CHAKRABORTY Self Clinical Notes Includes: Clinical Notes from this encounter No Clinical Notes Recorded
--- OUTSIDE RECORDS SUMMARY | 2024-10-23 02:08 | XMS_ITS | Referral Summary ---
Author Organization [facility] Address [address] [place] [address] Care Team Providers Care Field Service Representative Name Role Phone Unavailable Primary Care Provider Unavailabl e Source Comments [facility],non-owned Affiliates and Associated Physician Practices is amultiple site organization consisting of ambulatory clinics and hospital sitesin [place], [place] and [place]. This disclosure is being madepursuant to the Care Everywhere program and may not contain all information available regarding this patient. Last updated 18.[facility] [employer] Allergies No known active allergies Social History Tobacco Use Types Packs/Day Years Used Date Smoking Tobacco: Never Alcohol Use Standard Drinks/Week Comments Yes 0 (1 standard drink = 0.6 oz pur e alcohol) occationally Sex and Gender Information Value Date Recorded Sex Assigned at Not on file Gender Identity Not on file Sexual Orientation Not on file Plan of Treatment Not on file
--- OUTSIDE RECORDS SUMMARY | 2024-10-23 02:08 | XMS_ITS | Encounter Summary ---
Author Organization [employer] Care Team Providers Care Messaging Architect Name Role Phone Rosa Shi MD Primary Care Provider [phone] Encounter Details Date Type Department Care Team (Latest Contact Info) Description 11/28/2020 Travel Social History Tobacco Use Types Packs/Day Years [...] Coronavirus / COVID-19? Yes 11/28/2020 7:05 AM INSIDE STEWARD/STEWARDESS documented as of this encounter Functional Status documented as of this encounter Plan of Treatment Not on file documented as of this encounter Visit Diagnoses Not on filedocumented in this encounter Additional Health Concerns Infection Onset Date Last Indicated Resolved Time COVID - 19 Confirmed 11/28/2020 11/28/2020 021 12:18 AM INSIDE STEWARD/STEWARDESS documented as of this encounter Care Teams Messaging Architect Relationship Specialty Start Date End Date Rosa Shi MD [address] [place] [address] PCP - General Family Medicine 11/28/20 documented as of this encounter
--- OUTSIDE RECORDS SUMMARY | 2024-10-23 02:08 | XMS_ITS | Encounter Summary ---
Author Organization [facility] Address [address] [place] [address] Phone Care Team Providers Care Pastry Sous Chef Name Role Phone Kevin Velásquez MD Primary Care Provider [phone] Reason for Visit * Reason Comments COVID-19 Shortness of Breath * Auth/Cert Specialty Diagnoses / Procedures Referred By Contac t Referred To Contact Diagnoses Acute hypoxemic respiratory failure due to COVID-19 (HCC) COVID-19 Referral ID Status Reason Start Date Expiration Date Visits Re quested Visits Authorized [id number] 1 1 Encounter Details Date Type Department Care Team (Latest Contact Info) Description 11/28/2020 7:01 AM MANAGER TRADE MARKETING - 12/01/2020 11:20 AM MANAGER TRADE MARKETING Hospital Encounter [facility] Med Surg [address] [place] [address] Skip Gudino MD Dianati, Behfar, MD [address] [place] [address] Candace Owens MD [address] [place] [address] Acute respiratory failure with hypoxia (HCC) Discharge Disposition: Discharged to home or Selfcare Social History Tobacco Use Types Packs/Day Years [...] Coronavirus / COVID-19? Yes 11/28/2020 7:05 AM MANAGER TRADE MARKETING documented as of this encounter Last Filed Vital Signs Vital Sign Reading Time Taken Comments Blood Pressure 172/88 12/01/2020 7:00 AM MANAGER TRADE MARKETING Pulse 89 12/01/2020 9:06 AM MANAGER TRADE MARKETING Temperature 36.2 ??C (97.2 ??F) 12/01/2020 7:00 AM CS T Respiratory Rate 18 12/01/2020 9:06 AM MANAGER TRADE MARKETING Oxygen Saturation 90% 12/01/2020 9:06 AM MANAGER TRADE MARKETING Inhaled Oxygen Concentration - - Weight 106.6 kg (235 lb) 11/28/2020 7:13 AM MANAGER TRADE MARKETING Height 160 cm (5' 3 ) 11/28/2020 7:13 AM MANAGER TRADE MARKETING Body Mass Index 41.63 11/28/2020 7:13 AM MANAGER TRADE MARKETING documented in this encounter Functional Status documented as of this encounter Discharge Summaries * Candace Owens MD - 12/01/2020 9:19 AM CST [facility] DISCHARGE SUMMARY Name: Kevin Babb Age: 55 y.o. : 1965 Attending Physician: Candace Owens MD Admission Date/Time: 11/28/2020 Expected Discharge Date: 12/01/2020 Primary Care Physician: KEVIN VELÁSQUEZ MD Discharging Provider: Candace Owens MD INSTRUCTIONS FOR PHYSICIANS ON FOLLOW UP AFTER DISCHARGE: Follow-up with PCP: KEVIN VELÁSQUEZ MD in 2 weeks Recommended Tests/Labs to order at follow-up: none Pending Labs/Path/Imaging: none Discharge Instructions: Discharge Condition: improved Disposition: Home Diet: Diabetic Diet Activity: activity as tolerated Primary Discharge Diagnosis: Acute respiratory failure with hypoxia (HCC) due to COVID-19, diabetes, hypertension, BMI 41.6, hyperlipidemia, Discharge Diagnoses: As above Active Hospital Problems Diagnosis Date Noted ??? Hyperlipidemia [E78.5] 12/01/2020 ??? COVID-19 [U07.1] 11/28/2020 ??? HTN (hypertension) [I10] 11/28/2020 ??? Type 2 diabetes mellitus, without long-term current use of insulin (HCC) [E11.9] 11/28/2020 ??? Insomnia [G47.00] 11/28/2020 Resolved Hospital Problems Diagnosis Date Noted Date Resolved ??? Acute respiratory failure with hypoxia (HCC) [J96.01] 11/28/2020 12/01/2020 ??? Acute hypoxemic respiratory failure due to COVID-19 (HCC) [U07.1, J96.01] 12/01/2020 12/01/2020 ??? Pneumonia [J18.9] 11/28/2020 12/01/2020 Admitting Diagnoses: As above HOSPITAL COURSE: Kevin Babb was admitted 11/28/2020 with Acute respiratory failure with hypoxia (HCC) . Surgeries performed during stay: * No surgery found * Consults: Patient admitted on 11/28/2020 for evaluation of increasing shortness of breath symptoms. Patient indicates she was diagnosed with COVID-19 on 11/22/2020. Since then, patient had been developing fevers chills and body aches over the past several days. Supportive care as prescribed by her PCP was not sufficient. Patient was placed into COVID isolation on 11/28/2020. COVID marker obtained on 11/28 2020 had returned positive. Patient was started on oxygen, Decadron, and remdesivir therapies. Respiratory status gradually improved, and patient was able to be removed from oxygen supplementation. Patient complete course of Decadron as apart outpatient management. While in hospital, elevated glucose levels were identified. Patient indicated she was not aware of diagnosis of diabetes. Patient was started on supportive measures. By time of discharge, it was identified patient was given prescription for glipizide and lisinopril hydrochlorothiazide combination medication over 1 year ago. However,patient indicates she was not aware of this, and she had not filled prescriptions in more than 6 months (as per discussion with pharmacist). Patient will be provided prescription for metformin, glucometer, lancets, and test strips. Patient is asked to record fingerstick glucose levels 3 times a day, and present this chart to coal trimmer office for evaluation for further adjustments. Lab testings were also identified patient having hyperlipidemia. Atorvastatin will be put started, and patient has been provided prescription as well. Patient is advised to monitor for signs of side effects ofatorvastatin medications such as muscle aches, yellowing of skin, or yellowing of white areas of eyes. Patient is as to monitor fingerstick glucose levels, and advised to contact PCP or go to emergenc y room if she has glucose levels below 60 or above 400. Patient advised to complete course of dexamethasone as apart of management of COVID-19. In addition, patient is advised to remain in quarantineuntil 12/12/2020, and patient advised to have minimal contact with persons during this time interval, avoid all ill persons during this time interval, wear a mask, maintain social distancing, and follow government guidelines post quarantine. Exam Day of Discharge: Temp Av.6 ??F (36.4 ??C) Min: 97.2 ??F (36.2 ??C) Max: 98.1 ??F (36.7 ??C) BP Min: 168/90 Max: 177/90 Pulse Av Min: 64 Max: 89 Heart Rate (Monitor) Av.1 Min: 64 Max: 83 Resp Av Min: 18 Max: 24 SpO2 Av.8 % Min: 85 % Max: 98 % O2 Flow Rate (l/min): 2 l/min General: alert, and in no distress. Neck: No JVD. CVS: RRR, no murmur. Chest: clear to auscultation, no wheezes, rales or rhonchi, symmetric air entry. Heart: regular rate and rhythm, S1, S2 normal, no murmur, click, rub or gallop Abdominal: soft, nontender, nondistended. Positive Bowel sounds. Extremities: no edema, no clubbing or cyanosis. Urology: deferred Lab / Imaging Review: Lab Results Component Value Date WBC 9.36 12/01/2020 HEMOGLOBIN 13.7 12/01/2020 HEMATOCRIT 43.1 12/01/2020 PLATELETCNT 404 12/01/2020 MCV 81.6 (L) 12/01/2020 Lab Results Component Value Date SODIUM 139 12/01/2020 POTASSIUM 4.0 12/01/2020 CHLORIDE 100 12/01/2020 CO2VEN 29 12/01/2020 ANIONGAP 14.0 12/01/2020 GLUCOSE 72 12/01/2020 BUN 15 12/01/2020 CREATININE 0.62 12/01/2020 BCRATIO8 24 (H) 12/01/2020 TOTALPROTEIN 7.3 12/01/2020 ALBUMIN 3.4 (L) 12/01/2020 CALCIUM 9.1 12/01/2020 TBIL 0.4 12/01/2020 SGOTAST 13 12/01/2020 SGPTALT 21 12/01/2020 ALKALINEPHO 86 12/01/2020 GFRNA >60 12/01/2020 GFRA >60 12/01/2020 Lab Results Component Value Date GLUCOSEPOCT 63 (L) 12/01/2020 Lab Results Component Value Date INR 1.0 12/01/2020 PTP 13.3 12/01/2020 Lab Results Component Value Date HGBA1C 8.5 (H) 11/29/2020 No results found for: [id number] Lab Results Component Value Date TROPONINI <0.300 11/28/2020 TROPONINI <0.300 11/28/2020 Lab Results Component Value Date FERRITIN 390 (H) 11/29/2020 No components found for: FOLATE No results found for: PHARTERIAL, PO2ART, FOX2RFT, CO2ART, O2ART No results found for: LACACIDPOCT, LACTICA CT CHEST W CONTRAST Result Date: 11/28/2020 IMPRESSION: 1. No large or central PE. Peripheral pulmonary arteries difficult to visualize due to motion. 2. Diffuse bilateral pulmonary ground-glass opacities and consolidation in keeping with COVID-19 pneumonia given patient has this diagnosis. 3. Left breast mass-correlate with mammogram when patient's clinical status is stable DISCHARGE MEDICATION LIST: Medication List START taking these medications atorvastatin 20 MG Tabs Commonly known as: LIPITOR Take 1 Tablet by mouth daily. Blood Glucose Monitoring Suppl Kristel Diagnosis: Diabetes type 2 Blood testing frequency: 3 times a day dexamethasone 6 MG Tabs Take 1 Tablet by mouth daily (with breakfast) for 8 days. Glucose Blood Strp Diagnosis: Diabetes type 2 Blood testing frequency: 3 times a day Lancets Misc Use as directed metFORMIN 500 MG Tabs Commonly known as: GLUCOPHAGE Take 1 Tablet by mouth daily. CONTINUE taking these medications Advair Diskus 100-50 MCG/DOSE Aepb Generic drug: fluticasone-salmeterol ALBUTEROL IN Where to Get Your Medications Information about where to get these medications is not yet available Ask your nurse or doctor about these medications ?? atorvastatin 20 MG Tabs ?? Blood Glucose Monitoring Suppl Kristel ?? dexamethasone 6 MG Tabs ?? Glucose Blood Strp ?? Lancets Misc ?? metFORMIN 500 MG Tabs Time spent on interview, examination, final orders, recommendations, and care coordination for thishospital discharge: Greater than 30 minutes spent in coordinating care----33 minutes Thank you very much for allowing the [facility] to participate in the care of this patient. If you have any questions, please don't hesitate to call. Signed: Candace Owens MD, 12/01/2020, 9:19 AM MANAGER TRADE MARKETING [employer] documented in this encounter Discharge Instructions * Appointments* Candace Owens MD - 12/01/2020 9:14 AM MANAGER TRADE MARKETING Quarantine end: 12/12/2020. Patient advised to have minimal contact with other persons during this time interval of quarantine. Patient advised to wear mask during this quarantine time interval, and as per government guidelines post quarantine time interval. Patient is requested to that have contactwith ill persons during time of quarantine. Patient's new diagnosis of diabetes, and she is requested to monitor fingerstick glucose levels before meals 3 times a day. These values need to be recorded on a sheet of paper, and this table needs to be presented to clinic evaluation with endocrinology, Dr. Conley. Patient will be discharged home with prescription for metformin 500 mg p.o. once a day. If patient is identified with elevated glucose levels over 400 OR if glucose levels less than 60, she should notify her PCP or present to emergency room for evaluation. Patient advised to complete course of steroid therapy for treatment of COVID-19 infection. Patient has a new diagnosis of hyperlipidemia, and is also started on atorvastatin as part of management. Patient advised to monitor for signs of muscle aches, abdominal pain, weakness, yellowing of skin, yellowing of the white areas of eyes, or if she experience other symptoms. Patient advised to n otify PCP /or present to emergency room if these symptoms or other were to present. 5. Patient indicated she was informed of dx of DM and HTN previously, but she did not have these medications. Patient will be given Rx for Amlodipine as it was prescribed for her in 10/2019. Follow upevaluation of BP and need for adjustments will be coordinated with PCP and coal trimmer. GER TRADE MARKETING GER TRADE MARKETING GER TRADE MARKETING documented in this encounter Medications at Time of Discharge ALBUTEROL IN take 1 Puff by inhalation every 4 hours as needed. amLODIPine (NORVASC) 5 MG Tablet Take 1 Tablet by mouth daily. 90 Tablet 12/02/2020 atorvastatin (LIPITOR) 20 MG Tablet Take 1 Tablet by mouth daily. 90 Tablet 12/01/2020 Blood Glucose Monitoring Suppl Device Diagnosis: Diabetes type 2 Blood testing frequency: 3 times a day 1 Each 12/01/2020 fluticasone-salm eterol (Advair Diskus) 100-50 MCG/DOSE AEROSOL POWDER, BREATH ACTIVATEDIndicat ions:Asthma take 1 Puff by inhalation 2 times daily as needed. Indications: Asthma Glucose Blood Strip Diagnosis: Diabetes type 2 Blood testing frequency: 3 times a day 100 Strip 12/01/2020 Lancets Misc Use as directed 100 Lancet 12/01/2020 metFORMIN (GLUCOPHAGE) 500 MG Tablet Take 1 Tablet by mouth daily. 180 Tablet 12/01/2020 dexamethasone 6 MG Tablet Take 1 Tablet by mouth daily (with breakfast) for 8 days. 8 Tablet 12/01/2020 documented as of this encounter Progress Notes * Candace Owens MD - 11/30/2020 6:43 PM CST [facility] INPATIENT DAILY PROGRESS NOTE Anticipated Date of Discharge: 12/02/2020 Kevin Babb is a 55 y.o. female at Hospital LOS: 2 days Assessment: Active Hospital Problems Diagnosis Date Noted ??? COVID-19 11/28/2020 ??? Acute respiratory failure with hypoxia (HCC) 11/28/2020 ??? HTN (hypertension) 11/28/2020 ??? Type 2 diabetes mellitus, without long-term current use of insulin (HCC) 11/28/2020 ??? Pneumonia 11/28/2020 ??? Insomnia 11/28/2020 Resolved Hospital Problems No resolved problems to display. Vitals: 11/30/20 1440 11/30/20 1500 11/30/20 1644 11/30/20 1652 Temp: 98.1 ??F (36.7 ??C) TempSrc: Heart Rate (Monitor): 81 70 Pulse: Resp: 20 BP: 177/90 Height: Weight: SpO2: (!) 85% 90% I/O last 3 completed shifts: In: 180 [P.O.:180] Out: 3 [Urine:3] Plan: 1. Acute respiratory failure with hypoxia -SpO2 upon ER arrival=??83%??on RA. Requiring??4??L oxygen with SpO2 of 95% -Not on home O2 -Chest CT??revealed diffuse bilateral pulmonary ground-glass opacities and consolidation in keeping with COVID-19 pneumonia given patient has this diagnosis.?? -Solumedrol IV -Scheduled??inhalers -Titrate O2 to keep O2 sats >92% -Supportive treatment -Continuous pulse oximeter -clinically improving---will attempt to wean off oxygen supplementation 11/30/2020 2.??Pneumonia, CAP -Most likely gram-positive bacteria vs atypical, will cover with Ceftriaxone and azithromycin?? -Chest CT??revealed diffuse bilateral pulmonary ground-glass opacities and consolidation in keeping with COVID-19 pneumonia given patient has this diagnosis.?? -WBC 12.65---11/30/2020 WBC 10.02 -Scheduled??inhalers -Supportive treatment with PRN O2 -procalcitonin negative; will discontinue IV antibiotics ?? 3. Covid 19 -Patient presented with??worsening shortness of breath, chest pain when coughing -Requiring 4L O2/NC; satting 95% -Remdesivir -Elevated??D-dimer=1.17 -CRP 22.33 -Ferritin ordered -LDH 381 -Procalcitonin??0.14 -COVID 19 test??positive on 11/22/2020 -CT chest??revealed diffuse bilateral pulmonary ground-glass opacities and consolidation in keeping with COVID-19 pneumonia given patient has this diagnosis -Albuterol by inhaler -Patient to remain in contact/droplet isolation -clinically improving ?? 4. DM type 2 New diagnosis -BS 173 -Hemoglobin A1C 8.5 Lantus insulin protocol Fingersticks q.a.c. and HS with sliding scale coverage Diabetic teaching ?? 4. Insomnia -Takes OTC melatonin -Melatonin 3mg nightly ?? 5. Asthma -Continue home inhaler ? Code Status:??CPR-Full Treatment DVT Prophylaxis:??Lovenox 40mg Q24h and Sequential Compression Devices?? Disposition: Possible discharge home 12/01/2020 if patient is able to be successfully weaned off ofoxygen supplementation ? Subjective: Interval History: Patient seen at chair side. No new complaints referred. Patient indicates she hasbeen able to sit without use of oxygen and ambulate without use of oxygen at times. Pending discussion with nursing staff for weaning attempt. Review of Systems: A 14 point comprehensive review of systems was negative, except as documented in HPI. Objective: Exam: General: alert, oriented and in no acute distress. Skin: normal coloration and turgor, no rashes. HEENT: normocephalic, atraumatic. Pupils equal, round and reactive to light. Extraocular movements intact. Oronasopharynx pink and moist, no lesion or exudate. Neck: Supple. No JVD, lymphadenopathy thyromegaly or carotid bruits auscultated. CVS: RRR, S1/S2 normal, no murmurs, gallops or rubs. Chest: clear to auscultation, no wheezes, rales or rhonchi, symmetric air entry and normal respiratory effort. Abdominal: soft, nontender, nondistended. Positive Bowel sounds, no organomegaly appreciated. Extremities: no edema, no clubbing or cyanosis. Neuro: CN 2-12 grossly intact, normal speech, no focal findings or movement disorder noted. Gait not tested.. Lab Results: No results found for: PHARTERIAL, PO2ART, JZX2IDO, CO2ART, O2ART Lab Results Component Value Date WBC 10.02 11/30/2020 HEMOGLOBIN 11.4 (L) 11/30/2020 HEMATOCRIT 37.5 11/30/2020 PLATELETCNT 277 11/30/2020 MCV 84.7 11/30/2020 Lab Results Component Value Date SODIUM 139 11/30/2020 POTASSIUM 4.4 11/30/2020 CHLORIDE 105 11/30/2020 CO2VEN 25 11/30/2020 ANIONGAP 13.4 11/30/2020 GLUCOSE 87 11/30/2020 BUN 16 11/30/2020 CREATININE 0.60 11/30/2020 BCRATIO8 27 (H) 11/30/2020 TOTALPROTEIN 7.0 11/30/2020 ALBUMIN 3.1 (L) 11/30/2020 CALCIUM 8.9 11/30/2020 TBIL <0.3 11/30/2020 SGOTAST 18 11/30/2020 SGPTALT 23 11/30/2020 ALKALINEPHO 88 11/30/2020 GFRNA >60 11/30/2020 GFRA >60 11/30/2020 Lab Results Component Value Date TROPONINI <0.300 11/28/2020 No components found for: FOLATE No results found for: LACACIDPOCT, LACTICA No results found for: [id number] Lab Results Component Value Date FERRITIN 390 (H) 11/29/2020 Lab Results Component Value Date GLUCOSEPOCT 142 (H) 11/30/2020 EKG: EKG 12 LEAD Result Date: 11/30/2020 Sinus tachycardia Left ventricular hypertrophy by voltage only ST junctional depression is nonspecific Comparison Summary: No serial comparison made Summary: Abnormal ECG Confirmed by Bill Ghosh [id number] on 11/30/2020 11:43:11 AM Imaging: No results found. By: Candace Owens MD, 11/30/2020 6:43 PM MANAGER TRADE MARKETING [employer] * Candace Owens MD - 11/29/2020 5:40 PM CST [facility] INPATIENT DAILY PROGRESS NOTE Anticipated Date of Discharge: 12/04/2020 Kevin Babb is a 55 y.o. female at Hospital LOS: 1 day Assessment: Active Hospital Problems Diagnosis Date Noted ??? COVID-19 11/28/2020 ??? Acute respiratory failure with hypoxia (HCC) 11/28/2020 ??? HTN (hypertension) 11/28/2020 ??? Type 2 diabetes mellitus, without long-term current use of insulin (HCC) 11/28/2020 ??? Pneumonia 11/28/2020 ??? Insomnia 11/28/2020 Resolved Hospital Problems No resolved problems to display. Vitals: 11/28/20 2307 11/29/20 0819 11/29/20 0852 11/29/20 1500 Temp: 97.5 ??F (36.4 ??C) 97.4 ??F (36.3 ??C) TempSrc: Tympanic Heart Rate (Monitor): 76 72 95 Pulse: 75 Resp: 16 18 BP: 146/74 Height: Weight: SpO2: 91% 97% I/O last 3 completed shifts: In: 690 [P.O.:400; IV Piggyback:290] Out: - Plan: 1. Acute respiratory failure with hypoxia -SpO2 upon ER arrival= 83% on RA. Requiring 4 L oxygen with SpO2 of 95% -Not on home O2 -Chest CT revealed diffuse bilateral pulmonary ground-glass opacities and consolidation in keeping with COVID-19 pneumonia given patient has this diagnosis. -Solumedrol IV -Scheduled inhalers -Titrate O2 to keep O2 sats >92% -Supportive treatment -Continuous pulse oximeter ?? 2. Pneumonia, CAP -Most likely gram-positive bacteria vs atypical, will cover with Ceftriaxone and azithromycin -Chest CT revealed diffuse bilateral pulmonary ground-glass opacities and consolidation in keeping with COVID-19 pneumonia given patient has this diagnosis. -WBC 12.65 -Scheduled inhalers -Supportive treatment with PRN O2 ?? 3. Covid 19 -Patient presented with worsening shortness of breath, chest pain when coughing -Requiring 4L O2/NC; satting 95% -Remdesivir -Elevated??D-dimer=1.17 -CRP 22.33 -Ferritin ordered -LDH 381 -Procalcitonin??0.14 -COVID 19 test positive on 11/22/2020 -CT chest revealed diffuse bilateral pulmonary ground-glass opacities and consolidation in keeping with COVID-19 pneumonia given patient has this diagnosis -Albuterol by inhaler -Patient to remain in contact/droplet isolation ?? 4. DM type 2 New diagnosis -BS 173 -Hemoglobin A1C 8.5 Lantus insulin protocol Fingersticks q.a.c. and HS with sliding scale coverage Diabetic teaching ?? 4. Insomnia -Takes OTC melatonin -Melatonin 3mg nightly ?? 5. Asthma -Continue home inhaler ? Code Status: CPR-Full Treatment DVT Prophylaxis: Lovenox 40mg Q24h and Sequential Compression Devices ?? Subjective: Interval History: Patient seen at chair side. No new complaints referred. At present time, patient refers decreased cough and phlegm production. Slight body aches with coughing events are noted at times. Review of Systems: A 14 point comprehensive review of systems was negative, except as documented in HPI. Objective: Exam: General: alert, oriented and in no acute distress. Skin: normal coloration and turgor, no rashes. HEENT: normocephalic, atraumatic. Pupils equal, round and reactive to light. Extraocular movements intact. Oronasopharynx pink and moist, no lesion or exudate. Neck: Supple. No JVD, lymphadenopathy thyromegaly or carotid bruits auscultated. CVS: RRR, S1/S2 normal, no murmurs, gallops or rubs. Chest: clear to auscultation, no wheezes, rales or rhonchi, symmetric air entry and normal respiratory effort. Abdominal: soft, nontender, nondistended. Positive Bowel sounds, no organomegaly appreciated. Extremities: no edema, no clubbing or cyanosis. Neuro: CN 2-12 grossly intact, normal speech, no focal findings or movement disorder noted. Gait not tested.. Lab Results: No results found for: PHARTERIAL, PO2ART, STZ6ZOI, CO2ART, O2ART Lab Results Component Value Date WBC 8.36 11/29/2020 HEMOGLOBIN 12.7 11/29/2020 HEMATOCRIT 40.4 11/29/2020 PLATELETCNT 340 11/29/2020 MCV 82.8 11/29/2020 Lab Results Component Value Date SODIUM 137 11/29/2020 POTASSIUM 4.5 11/29/2020 CHLORIDE 100 11/29/2020 CO2VEN 29 11/29/2020 ANIONGAP 12.5 11/29/2020 GLUCOSE 190 (H) 11/29/2020 BUN 16 11/29/2020 CREATININE 0.68 11/29/2020 BCRATIO8 24 (H) 11/29/2020 TOTALPROTEIN 7.6 11/29/2020 ALBUMIN 3.4 (L) 11/29/2020 CALCIUM 9.0 11/29/2020 TBIL 0.3 11/29/2020 SGOTAST 21 11/29/2020 SGPTALT 24 11/29/2020 ALKALINEPHO 102 11/29/2020 GFRNA >60 11/29/2020 GFRA >60 11/29/2020 Lab Results Component Value Date TROPONINI <0.300 11/28/2020 No components found for: FOLATE No results found for: LACACIDPOCT, LACTICA No results found for: [id number] Lab Results Component Value Date FERRITIN 390 (H) 11/29/2020 Lab Results Component Value Date GLUCOSEPOCT 270 (H) 11/29/2020 EKG: No results found. Imaging: No results found. By: Candace Owens MD, 11/29/2020 5:40 PM MANAGER TRADE MARKETING GER [employer]ET[employer] documented in this encounter H&P Notes * Komal Lugo APN, KEY MAKER - 11/28/2020 5:00 PM CST HOSPITALIST ADMISSION HISTORY & PHYSICAL EXAM Anticipated Date of Discharge: 12/04/2020 PATIENT NAME: Kevin Babb, : 1965, MR#[id number] CHIEF COMPLAINT Having trouble breathing HPI Kevin Babb is a 55 y.o. female with a pmhx of asthma, borderline DM, insomnia, and HTN who presented to the ED with worsening trouble breathing. She began feeling ill on 11/19/2020. She went toher PCP on 11/22/2020 and was diagnosed with COVID 19. She had a fever, chills, body aches, fatigue,head ache, congestion, cough, and nausea/vomiting. Her PCP prescribed steroids and an albuterol inhaler. She was unable to keep the steroid medication down due to vomiting. Her symptoms progressivelyworsened. Two days ago she knew she should go to the ER due to her worsening SOB, wheezing, lightheadedness, N/V but waited until today. Nothing improved her symptoms. Kevin describes her chest pain as midsternal non-radiating tightness that only occurs with coughing or moving. Upon getting to the ED her O2 sat was 84% on RA. After 4L O2/NC was applied, her O2 went up to 95%.She also received IV decadron 6mg in ED. A CT chest was done after D Dimer was found to be elevatedwhich revealed no large or central PE, and diffuse bilateral pulmonary ground-glass opacities and consolidation in keeping with COVID-19 pneumonia given patient has this diagnosis. HOME MEDICATIONS: Prior to Admission Medications Prescriptions Last Dose Informant Patient Reported? Taking? ALBUTEROL IN 11/27/2020 at 2200 Yes Yes Sig: take 1 Puff by inhalation every 4 hours as needed. fluticasone-salmeterol (Advair Diskus) 100-50 MCG/DOSE AEROSOL POWDER, BREATH ACTIVATED 11/27/2020 atunknown time Yes Yes Sig: take 1 Puff by inhalation 2 times daily as needed. Indications: Asthma Facility-Administered Medications: None ALLERGIES: Allergies There is no known ICA information for this patient. REVIEW OF SYSTEMS: Review of Systems Constitutional: Positive for chills, fever and malaise/fatigue. HENT: Positive for congestion and sore throat. Negative for ear pain, hearing loss and tinnitus. Eyes: Negative for blurred vision, double vision and pain. Respiratory: Positive for cough and shortness of breath. Cardiovascular: Positive for chest pain (when coughing or moving) and palpitations. Negative for leg swelling. Gastrointestinal: Positive for abdominal pain, nausea and vomiting. Negative for constipation, diarrhea and heartburn. Genitourinary: Negative. Musculoskeletal: Negative. Skin: Negative. Neurological: Positive for dizziness, weakness and headaches. Negative for loss of consciousness. Endo/Heme/Allergies: Negative. Psychiatric/Behavioral: Negative for depression, hallucinations and suicidal ideas. The patient is nervous/anxious and has insomnia. PAST MEDICAL HISTORY She has a past medical history of Asthma. PAST SURGICAL HISTORY: has a past surgical history that includes Hysterectomy. FAMILY HISTORY: family history includes Cancer in her mother; Diabetes in her father and mother; Hypertension in her father and mother; Stroke in her father and mother. SOCIAL HISTORY : reports that she has never smoked. She has never used smokeless tobacco. She reports that she does not use drugs. PHYSICAL EXAM : VITALS: BP 152/86 Pulse 90 Temp 97.7 ??F (36.5 ??C) (Tympanic) Resp (!) 36 Ht 5' 3 (1.6 m) Wt 235 lb (106.6 kg) SpO2 92% BMI 41.63 kg/m?? Temp (24hrs), Av.7 ??F (37.1 ??C), Min:97.7 ??F (36.5 ??C), Max:99.6 ??F (37.6 ??C) Weight: Wt Readings from Last 1 Encounters: 11/28/20 235 lb (106.6 kg) Body mass index is 41.63 kg/m??. EXAM: Physical Exam Constitutional: She is oriented to person, place, and time. Sitting in her bedside chair eating with O2/NC in place in no acute distress HENT: Head: Normocephalic and atraumatic. Right Ear: External ear normal. Left Ear: External ear normal. Eyes: Pupils are equal, round, and reactive to light. EOM and lids are normal. Neck: Normal range of motion and full passive range of motion without pain. Cardiovascular: Regular rhythm, normal heart sounds, intact distal pulses and normal pulses. Bradycardia present. Pulses: Radial pulses are 2+ on the right side and 2+ on the left side. Dorsalis pedis pulses are 2+ on the right side and 2+ on the left side. Pulmonary/Chest: Effort normal. Tachypnea noted. She has decreased breath sounds in the right upperfield and the left upper field. She has rales in the right middle field, the right lower field and the left lower field. She exhibits tenderness. Abdominal: Soft. Normal appearance and bowel sounds are normal. There is no abdominal tenderness. Musculoskeletal: Normal range of motion. Neurological: She is alert and oriented to person, place, and time. She has normal motor skills, normal sensation and intact cranial nerves. No cranial nerve deficit. Gait normal. GCS score is 15. Skin: Skin is warm, dry and intact. No cyanosis. Nails show no clubbing. Psychiatric: Mood, memory, affect and judgment normal. Nursing note and vitals reviewed. DATA REVIEW : Ct Chest W Contrast Result Date: 11/28/2020 IMPRESSION: 1. No large or central PE. Peripheral pulmonary arteries difficult to visualize due to motion. 2. Diffuse bilateral pulmonary ground-glass opacities and consolidation in keeping with COVID-19 pneumonia given patient has this diagnosis. 3. Left breast mass-correlate with mammogram when patient's clinical status is stable EKG: Time:0708 Rhythm: Sinus tachycardia Rate: 107 Interpretation: Normal axis, normal intervals, left ventricular hypertrophy by voltage criteria, noacute ischemic changes. CBC: Lab Results Component Value Date WBC 12.65 (H) 11/28/2020 RBC 5.41 (H) 11/28/2020 HEMOGLOBIN 14.0 11/28/2020 HEMATOCRIT 44.1 11/28/2020 PLATELETCNT 300 11/28/2020 CMP: Lab Results Component Value Date SODIUM 135 (L) 11/28/2020 POTASSIUM 3.8 11/28/2020 CHLORIDE 93 (L) 11/28/2020 CO2VEN 29 11/28/2020 ANIONGAP 16.8 11/28/2020 GLUCOSE 173 (H) 11/28/2020 BUN 11 11/28/2020 CREATININE 0.73 11/28/2020 BCRATIO8 15 11/28/2020 TOTALPROTEIN 8.4 (H) 11/28/2020 ALBUMIN 3.8 11/28/2020 CALCIUM 9.2 11/28/2020 TBIL 0.5 11/28/2020 SGPTALT 23 11/28/2020 ALKALINEPHO 110 (H) 11/28/2020 GFRNA >60 11/28/2020 GFRA >60 11/28/2020 Coagulation: Lab Results Component Value Date PTP 13.6 11/28/2020 INR 1.0 11/28/2020 PTT 32 11/28/2020 Cardiac markers: Lab Results Component Value Date TROPONINI <0.300 11/28/2020 TROPONINI <0.300 11/28/2020 Outside reports reviewed: ER records, radiology reports, lab reports, xray reports, historical medical records. ASSESSMENT: There are no hospital problems to display for this patient. PLAN: 1. Acute respiratory failure with hypoxia -SpO2 upon ER arrival= 83% on RA. Requiring 4 L oxygen with SpO2 of 95% -Not on home O2 -Chest CT revealed diffuse bilateral pulmonary ground-glass opacities and consolidation in keeping with COVID-19 pneumonia given patient has this diagnosis. -Solumedrol IV -Scheduled inhalers -Titrate O2 to keep O2 sats >92% -Supportive treatment -Continuous pulse oximeter 2. Pneumonia, CAP -Most likely gram-positive bacteria vs atypical, will cover with Ceftriaxone and azithromycin -Chest CT revealed diffuse bilateral pulmonary ground-glass opacities and consolidation in keeping with COVID-19 pneumonia given patient has this diagnosis. -WBC 12.65 -Scheduled inhalers -Supportive treatment with PRN O2 3. Covid 19 -Patient presented with worsening shortness of breath, chest pain when coughing -Requiring 4L O2/NC; satting 95% -Start Remdesivir -Elevated D-dimer=1.17 -CRP ordered -Ferritin ordered -LDH ordered -Procalcitonin pending -COVID 19 test positive on 11/22/2020 -CT chest revealed diffuse bilateral pulmonary ground-glass opacities and consolidation in keeping with COVID-19 pneumonia given patient has this diagnosis -Albuterol by inhaler -Patient to remain in contact/droplet isolation 4. DM type 2 -BS 173 -Hemoglobin A1C ordered -Starting basal bolus insulin therapy -Initiate 4. Insomnia -Takes OTC melatonin -Melatonin 3mg nightly 5. Asthma -Continue home inhaler Home meds to be resumed as appropriate. Other changes to meds to be made based on progress during hospitalization. Code Status: CPR-Full Treatment DVT Prophylaxis: Lovenox 40mg Q24h and Sequential Compression Devices Consult with: None Advance Care Planning: Aggregate face to face time discussing end of life advance care planning with patient and/or family and/or Power of K 12 Principal 1 minutes. Discussed CPR/Intubation/Treatment Goals/Quality of life/Intensity of Care. Patient desires: CPR-Full Treatment Komal Lugo APN, CNS 11/28/2020 5:01 PM MA[employer]GER [employer] Primary Care Physician: KEVIN VELÁSQUEZ MD Cosigned by Patrick Oliva MD at 11/29/2020 8:15 AM MANAGER [employer] Associated attestation - Patrick Oliva MD - 11/29/2020 8:15 AM MANAGER [employer] ADULT HOSPITALIST ATTENDING I have seen and evaluated the patient and discussed the patient's management with SILK SCREEN CUTTER Komal Lugo. I agree with the history, physical, assessment, and plan as outlined in the attached note. Patrick Oliva MD 11/28/2020 6:30 PM documented in this encounter ED Notes * Kathi Menchaca RN - 11/28/2020 11:19 AM CST Patient to [address] [place] [address] via stretcher with PCT. Pt remains on 2L via [place] for transfer. VSS and no distress noted at this time. Belongings sent with patient. NS continuing to infuse. [employer] * Kathi Menchaca RN - 11/28/2020 11:12 AM CST Pt medicated per provider orders. Pt educated on intended effects and side effects of medication and verbalized understanding, able to provide teach back of education. [employer] * Kathi Menchaca RN - 11/28/2020 11:01 AM CST Report given to SRINIVASAN Rodriguez on 2 . Kathi Raines RN - 11/28/2020 10:50 AM CST [place] from Medical Records at [facility] will be faxing patient's positive COVID results to ED. Kathi Raines RN - 11/28/2020 10:[address] Gudino patient will not need to be swabbed for COVID today due to her recent positive COVIDswab and clinical signs/results. Kathi Raines RN - 11/28/2020 10:01 AM CST Pt using bedside commode at this time. No distress noted; call light in reach. Kathi Raines RN - 11/28/2020 9:41 AM CST Pt updated on status and timeframe. No distress noted at this time. Call light in reach. Kathi Raines RN - 11/28/2020 8:30 AM CST Pt medicated per provider orders. Pt educated on intended effects and side effects of medication and verbalized understanding, able to provide teach back of education. [employer] * Skip Gudino MD - 11/28/2020 8:00 AM CST Chief Complaint Patient presents with ??? COVID-19 ??? Shortness of Breath The patient is a 55-year-old female who has a past history notable for asthma, hypertension, and diabetes currently not on any medical therapy. She tested positive for COVID-19 on November 28 and over the past couple of days she has noted decreased sense of smell, decreased sense of taste, shortness of breath, chest pain, fevers, nausea, vomiting, and myalgias. She presented to the emergency department with O2 sats on room air of 82%. She states that she has been unable to keep anything down for the past 2 days. On 2 L nasal cannula she is feeling less short of breath. She does complain of chest pain. Current Facility-Administered Medications Medication Dose Route Frequency Provider Last Rate Last Admin ??? ipratropium-albuterol (COMBIVENT RESPIMAT) 20-100 MCG/ACT inhaler 2 Puff 2 Puff Inhalation Skip Lagos MD No current outpatient medications on file. No Known Allergies Past Medical History Positives Diagnosis Date ??? Asthma Past Surgical History: Procedure Laterality Date ??? HYSTERECTOMY Social History Socioeconomic History ??? Marital status: Spouse name: Not on file ??? Number of children: Not on file ??? Years of education: Not on file ??? Highest education level: Not on file Occupational History ??? Not on file Social Needs ??? Financial resource strain: Not on file ??? Food insecurity Worry: Not on file Inability: Not on file ??? Transportation needs Medical: Not on file Non-medical: Not on file Tobacco Use ??? Smoking status: Never Smoker Substance and Sexual Activity ??? Alcohol use: Not on file Comment: OCASIONALLY ??? Drug use: Never ??? Sexual activity: Not on file Lifestyle ??? Physical activity Days per week: Not on file Minutes per session: Not on file ??? Stress: Not on file Relationships ??? Social connections Talks on phone: Not on file Gets together: Not on file Attends jehovah's witness service: Not on file Active member of club or organization: Not on file Attends meetings of clubs or organizations: Not on file Relationship status: Not on file ??? Intimate partner violence Fear of current or ex partner: Not on file Emotionally abused: Not on file Physically abused: Not on file Forced sexual activity: Not on file Other Topics Concern ??? Not on file Social History Narrative ??? Not on file BP (!) 132/96 Pulse 100 Temp 99.6 ??F (37.6 ??C) (Tympanic) Resp (!) 35 Ht 5' 3 (1.6 m) Wt 235 lb (106.6 kg) SpO2 95% BMI 41.63 kg/m?? Review of Systems Constitutional: Positive for appetite change, fatigue and fever. Respiratory: Positive for cough, chest tightness and shortness of breath. Cardiovascular: Positive for chest pain. Gastrointestinal: Positive for nausea and vomiting. Genitourinary: Negative. Musculoskeletal: Positive for myalgias. Skin: Negative. Neurological: Negative. Psychiatric/Behavioral: Negative. All other systems reviewed and are negative. Physical Exam Vitals signs and nursing note reviewed. Constitutional: General: She is not in acute distress. Appearance: She is obese. HENT: Head: Normocephalic and atraumatic. Eyes: Extraocular Movements: Extraocular movements intact. Pupils: Pupils are equal, round, and reactive to light. Neck: Musculoskeletal: Normal range of motion. Cardiovascular: Rate and Rhythm: Regular rhythm. Tachycardia present. Heart sounds: No murmur. No gallop. Pulmonary: Effort: Pulmonary effort is normal. Breath sounds: Normal breath sounds. No wheezing, rhonchi or rales. Chest: Chest wall: No tenderness. Abdominal: Palpations: Abdomen is soft. There is no mass. Tenderness: There is no abdominal tenderness. There is no guarding. Neurological: Mental Status: She is alert. Procedures Imaging Results CT CHEST W CONTRAST (Final result) Result time 11/28/20 09:41:51 Final result by Jeimy Alberto MD (11/28/20 09:41:51) Impression: IMPRESSION: 1. No large or central PE. Peripheral pulmonary arteries difficult to visualize due to motion. 2. Diffuse bilateral pulmonary ground-glass opacities and consolidation in keeping with COVID-19 pneumonia given patient has this diagnosis. 3. Left breast mass-correlate with mammogram when patient's clinical status is stable Narrative: EXAM DESCRIPTION: CT angiogram chest REASON FOR STUDY: PE suspected, intermediate prob, positive D-dimer, mid chest pain and shortness of breath, COVID positive 11/22/2020, D-dimer 1.17 TECHNIQUE: CT angiogram of the chest performed with intravenous contrast using helical scanning technique with dynamic intravenous contrast injection. Reconstructed coronal and sagittal MPR images reviewed. All images stored on PACS. 3D MIP images rendered on scanning unit and reviewed at time of interpretation. Automated exposure control was used as a dose optimization technique for this examination. CONTRAST TYPE/DOSE: 100 mL Isovue 370 injected via left antecubital fossa without complication COMPARISON: No prior chest CT FINDINGS: VASCULATURE: No large or central PE. The peripheral pulmonary arteries are difficult to visualize due to motion. 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 LUNGS: Diffuse bilateral pulmonary ground-glass opacities and consolidation with some medial basilar atelectasis. PLEURA: Tiny bilateral pleural effusions. No pneumothorax. MEDIASTINUM/YANN: No identified masses or abnormal nodes. HEART: Heart size is normal with no pericardial effusion. AXILLA: No adenopathy. CHEST WALL: 2.9 x 1.6 cm nodule lateral left breast. HARDWARE/LINES/TUBES: None. UPPER ABDOMEN: Hepatic steatosis. MUSCULOSKELETAL: No significant abnormality. OTHER: No significant abnormality. THIS IS AN ELECTRONICALLY VERIFIED FINAL REPORT 11/28/2020 9:38 AM - Electronically signed by Jeimy Alberto M.D. : Report ID: [id number] Reading Location: [place] [address] XR CHEST SINGLE VIEW PORTABLE (Canceled) Labs Reviewed CMP (COMPREHENSIVE METABOLIC PANEL) - Abnormal; Notable for the following components: Result Value SODIUM 135 (*) CHLORIDE 93 (*) GLUCOSE 173 (*) TOTAL PROTEIN 8.4 (*) A/G RATIO 0.8 (*) ALKALINE PHOSPHATASE 110 (*) All other components within normal limits D-DIMER - Abnormal; Notable for the following components: D DIMER 1.17 (*) All other components within normal limits Narrative: The FDA has approved this method to exclude the diagnosis of DVT and/or PE at the cutoff value of <0.50 mcg/mL FEU. CBC WITH AUTO DIFFERENTIAL - Abnormal; Notable for the following components: WBC 12.65 (*) RBC 5.41 (*) MCV 81.5 (*) MCH 25.9 (*) NEUTROPHILS 84.6 (*) LYMPHOCYTES 10.8 (*) ABSOLUTE NEUTROPHILS 10.71 (*) All other components within normal limits PROTIME (PT) (PROTHROMBIN TIME) - Normal APTT (PTT) - Normal Narrative: Therapeutic range for unfractionated heparin at 0.3-0.7 U/mL is an aPTT value in the range of 71-100 seconds. Critical value for the PTT test is >= 122 seconds. TROPONIN I (TRP I) - Normal EXTRA TUBES Narrative: The following orders were created for panel order Extra Tubes. Procedure Abnormality Status --------- ------ Blue Top Tube[[id number]] Final result Gold Top Tube[[id number]] Final result Lavender Top Tube[[id number]] Final result Lavender Top Tube[[id number]] Final result MINT GREEN, LI HEPARIN/S...[[id number]] Final result MINT GREEN, LI HEPARIN/S...[[id number]] Final result Please view results for these tests on the individual orders. COMPLETE BLOOD COUNT (CBC) WITH DIFF Narrative: The following orders were created for panel order Complete Blood Count (CBC) WITH Diff. Procedure Abnormality Status --------- ------ CBC with Auto Differential[[id number]] Abnormal Final result Please view results for these tests on the individual orders. PROCALCITONIN TROPONIN I (TRP I) BLUE TOP TUBE GOLD TOP TUBE LAVENDER TOP TUBE LAVENDER TOP TUBE MINT GREEN, LI HEPARIN/SST TOP TUBE MINT GREEN, LI HEPARIN/SST TOP TUBE CT CHEST W CONTRAST Final Result IMPRESSION: 1. No large or central PE. Peripheral pulmonary arteries difficult to visualize due to motion. 2. Diffuse bilateral pulmonary ground-glass opacities and consolidation in keeping with COVID-19 pneumonia given patient has this diagnosis. 3. Left breast mass-correlate with mammogram when patient's clinical status is stable Extra Tubes Final Result Complete Blood Count (CBC) WITH Diff Final Result CMP (Comprehensive Metabolic Panel) Final Result D-DIMER [id number] Final Result PROTIME (PT) (PROTHROMBIN TIME) Final Result APTT (PTT) Final Result Initial Troponin Final Result EKG 12 LEAD (Results Pending) Procalcitonin (Results Pending) Repeat Troponin in 3 hours (Results Pending) ECG Report Time:707 Rhythm: Sinus tachycardia Rate: 107 Interpretation: Normal axis, normal intervals, left ventricular hypertrophy by voltage criteria, noacute ischemic changes. MDM Number of Diagnoses or Management Options Critical Care Total time providing critical care: 30-74 minutes Total time providing critical care: 30-74 minutes. This excludes time spent performing separately reportable procedures and services. Clinical Impression 1. COVID-19 2. Acute hypoxemic respiratory failure due to COVID-19 (HCC) I discussed with Dr. Patrick Oliva, (Admitting Physician) all pertinent aspects of the case including HPI details, physical exam findings, testing completed, medications given, the pt's condition, my clinical impression, and the need for admission for for further evaluation and treatment. Dr. Patrick Oliva agrees to accept the patient at this time. The patient/family understand and agree with the plan. [employer] * Kathi Menchaca RN - 11/28/2020 7:[address] Gudino at bedside. [employer] * Kathi Menchaca RN - 11/28/2020 7:29 AM CST Pt's SpO2 now back down to 2L via NC and SPO2 94%. Continuing to closely monitor. IV access established and blood work drawn. Call light in reach. [employer] * Rossy Jackosn RN - 11/28/2020 7:16 AM CST Pt to ED with complaints of increased shortness of breath and medial chest pain radiating into her back and neck since yesterday. Pt reports she tested positive for COVID-19 on 11/22/20; symptoms began 11/19/20. Initial SpO2 83% on room air. Pt placed on 4L/NC O2 bringing SpO2 to 95%. Pt reports hx of asthma. States she has been using inhalers without relief. EKG obtained. Pt placed on NIBP, SpO2, a nd cardiac monitors. [employer] documented in this encounter Miscellaneous Notes * Plan of Care - Mady Harper RN - 12/01/2020 11:38 AM CST Problem: Adult Inpatient Plan of Care Goal: Plan of Care Review Outcome: Outcome Achieved Goal: Absence of Hospital-Acquired Illness or Injury Outcome: Outcome Achieved Goal: Optimal Comfort and Wellbeing Outcome: Outcome Achieved Goal: Readiness for Transition of Care Outcome: Outcome Achieved Goal: Rounds/Family Conference Outcome: Outcome Achieved Problem: Fluid Imbalance (Pneumonia) Goal: Fluid Balance Outcome: Outcome Achieved Problem: Infection (Pneumonia) Goal: Resolution of Infection Signs/Symptoms Outcome: Outcome Achieved Problem: Respiratory Compromise (Pneumonia) Goal: Effective Oxygenation and Ventilation Outcome: Outcome Achieved [employer] * Interdisciplinary - Mady Harper RN - 12/01/2020 11:20 AM CST Patient discharged to home in stable condition with discharge papers Patient stated she understood all discharge and follow up instructions IVs removed prior to discharge [employer] * Gui - Destiney Monge RN - 12/01/2020 10:30 AM CST Case Management Discharge Readiness Note Kevin's readmission risk level (if calculated) is: 1-Low Patient Class: Inpatient Consecutive Inpatient Midnights 3 Actual day(s) of hospital stay (compare to working DRG): 3 Discharge: Mode of transportation at discharge:: Family car Additional Information regarding DC Plan: Patient will discharge home with son. She is to follow upwith Dr. Conley in 2 weeks r/t new dx DM & HLD. Patient's Phone numbers: [phone] (home) Preferred contact number: (if different from above) : n/a Notifications of Discharge Plan: Nursing notified: YES . Patient/ Family notified: Kevin (If applicable, Medicare Notice Given to Responsible Green Party: ) Decision Maker / Plant Care Worker Information Medical Decision Maker Assessment: Patient is medical decision-maker [employer] * Gui - Marleny Browne, SYLVIE - 12/01/2020 9:06 AM CST Sa02-90% on room air HR-89 RR-18 [employer] * Surya Corbin RN - 12/01/2020 6:36 AM CST Spot checked pts O2 saturations after she ambulated to the bathroom. Pt was at 84-86%. Stuck pt on 1L of O2 via NC and pt was at 88%. Turned pt up to 2L via NC and pt read 91%. Will continue to monitor. [employer] * Surya Corbin RN - 12/01/2020 4:31 AM CST Pt up in chair resting at this. A&Ox4. Pt is on room air, with saturations around 95%. No SOB reported. Pt is still refusing IVF. No complaints or signs of distress at this time. Pt is up ADLIB. Call light is with in reach. Will continue to monitor. [employer] * Interdisciplinary - Surya Mota RN - 12/01/2020 1:24 AM CST Pt refusing IV fluids at this time. [employer] * Plan of Care - Surya Mota RN - 12/01/2020 12:48 AM CST Problem: Adult Inpatient Plan of Care Goal: Plan of Care Review Outcome: Ongoing (see interventions/notes) Flowsheets Taken 12/01/2020 0047 by Surya Mota RN Outcome Summary: Pt on 1L NC with saturations >92%. Will continue to spot check pt on room air and try to wean pt off of oxygen. Will continue to monitor. Taken 11/30/2020 1945 by Surya Mota RN Plan of Care Reviewed With: patient Today's Goal: titrate down to room air with saturations >92% Taken 11/30/2020 1717 by Mady Campo RN Progress: improving Does the patient need assistance with discharge and/or transitioning to the next level of care?: Yes, case management already following Goal: Absence of Hospital-Acquired Illness or Injury Outcome: Ongoing (see interventions/notes) Goal: Optimal Comfort and Wellbeing Outcome: Ongoing (see interventions/notes) Goal: Readiness for Transition of Care Outcome: Ongoing (see interventions/notes) Goal: Rounds/Family Conference Outcome: Ongoing (see interventions/notes) Problem: Fluid Imbalance (Pneumonia) Goal: Fluid Balance Outcome: Ongoing (see interventions/notes) Problem: Infection (Pneumonia) Goal: Resolution of Infection Signs/Symptoms Outcome: Ongoing (see interventions/notes) Problem: Respiratory Compromise (Pneumonia) Goal: Effective Oxygenation and Ventilation Outcome: Ongoing (see interventions/notes) [employer] * Interdisciplinary - Surya Mota RN - 11/30/2020 7:45 PM CST Pt up in chair. NS running @100mL/hr. Up ADLIB. Pt on 1L of oxygen via NC. Call light is with in reach. Will continue with assessment, documentation, and monitoring. [employer] * Interdisciplinary - Mady Harper RN - 11/30/2020 6:26 PM CST Patient has been resting in bed this shift without complaints of pain Patient titrated to 1L NC Sheis up around the room without assistance Will continue to monitor [employer] * Plan of Care - Mady Harper RN - 11/30/2020 5:18 PM CST Problem: Adult Inpatient Plan of Care Goal: Plan of Care Review Flowsheets Taken 11/30/2020 1717 Progress: improving Outcome Summary: Patient is down to 1L O2 NC Today's Goal: Titrate to room air Does the patient need assistance with discharge and/or transitioning to the next level of care?: Yes, case management already following Taken 11/30/2020 1100 Plan of Care Reviewed With: patient Goal: Absence of Hospital-Acquired Illness or Injury Intervention: Prevent VTE (venous thromboembolism) Flowsheets (Taken 11/30/2020 1100) VTE Prevention/Management: anticoagulant therapy maintained Goal: Optimal Comfort and Wellbeing Intervention: Provide Person-Centered Care Flowsheets (Taken 11/30/2020 1717) Trust Relationship/Rapport: care explained questions answered Goal: Rounds/Family Conference Flowsheets (Taken 11/29/2020 1720) Participants: patient case coordinator physician nursing physical therapy patient pharmacy occupational therapy Problem: Infection (Pneumonia) Goal: Resolution of Infection Signs/Symptoms Intervention: Prevent Infection Progression Flowsheets (Taken 11/30/2020 0200 by Tay Carlson, SRINIVASAN) Fever Reduction/Comfort Measures: lightweight bedding lightweight clothing Problem: Respiratory Compromise (Pneumonia) Goal: Effective Oxygenation and Ventilation Intervention: Promote Airway Secretion Clearance Flowsheets (Taken 11/30/2020 1717) Cough And Deep Breathing: done independently per patient [employer] * Interdisciplinary - aCthy Stoll CRT - 11/30/2020 7:58 AM CST Patient's O2 sats are 98% on 3L nasal cannula decreased to 2L [employer] * Interdisciplinary - Tay Carlson RN - 11/30/2020 5:11 AM CST Pt is resting in bed and is easily aroused. Pt is alert and oriented x 4. Pt has no complaints of pain or discomfort at this time. Pt has call light within reach and fall precautions are in place. [employer] * Plan of Care - Tay Carlson RN - 11/30/2020 2:50 AM CST Problem: Adult Inpatient Plan of Care Goal: Plan of Care Review Outcome: Ongoing (see interventions/notes) Flowsheets Taken 11/30/2020 0249 by Tay Carlson RN Outcome Summary: Pt has maintained levels on 3L of O2 Taken 11/30/2020 0200 by Tay Carlson, SRINIVASAN Plan of Care Reviewed With: patient Today's Goal: Titrate Oxygen Taken 11/29/2020 1720 by Mady Campo RN Progress: no change Does the patient need assistance with discharge and/or transitioning to the next level of care?: Yes, case management already following Goal: Absence of Hospital-Acquired Illness or Injury Outcome: Ongoing (see interventions/notes) Goal: Optimal Comfort and Wellbeing Outcome: Ongoing (see interventions/notes) Goal: Readiness for Transition of Care Outcome: Ongoing (see interventions/notes) Goal: Rounds/Family Conference Outcome: Ongoing (see interventions/notes) Problem: Fluid Imbalance (Pneumonia) Goal: Fluid Balance Outcome: Ongoing (see interventions/notes) Problem: Infection (Pneumonia) Goal: Resolution of Infection Signs/Symptoms Outcome: Ongoing (see interventions/notes) Problem: Respiratory Compromise (Pneumonia) Goal: Effective Oxygenation and Ventilation Outcome: Ongoing (see interventions/notes) [employer] * Interdisciplinary - Tay Carlson RN - 11/30/2020 2:26 AM CST Pt is resting in chair and is easily aroused. Pt is alert and oriented x 4. Pt has no complaints ofpain or discomfort at this time. Pt has call light within reach and fall precautions are in place [employer] * Gui - Mady Harper RN - 11/29/2020 6:48 PM CST Patient given incentive spirometer earlier this shift and educated on how to use it [employer] * Interdisciplinary - Mady Harper RN - 11/29/2020 6:13 PM CST Patient has been resting up in the recliner She goes to the bathroom without assistance Tylenol given for generalized aches Will continue to monitor [employer] * Plan of Care - Mady Harper RN - 11/29/2020 5:22 PM CST Problem: Adult Inpatient Plan of Care Goal: Plan of Care Review Flowsheets (Taken 11/29/2020 1720) Progress: no change Plan of Care Reviewed With: patient Outcome Summary: Patient has been titrated down from 4L to 3L this shift Today's Goal: Titrate oxygen Does the patient need assistance with discharge and/or transitioning to the next level of care?: Yes, case management already following Goal: Absence of Hospital-Acquired Illness or Injury Intervention: Prevent VTE (venous thromboembolism) Flowsheets (Taken 11/29/2020 1720) VTE Prevention/Management: ambulation encouraged anticoagulant therapy maintained Goal: Optimal Comfort and Wellbeing Intervention: Provide Person-Centered Care Flowsheets (Taken 11/29/2020 1720) Trust Relationship/Rapport: care explained questions answered Goal: Rounds/Family Conference Flowsheets (Taken 11/29/2020 1720) Participants: patient case coordinator physician nursing physical therapy patient pharmacy occupational therapy Problem: Infection (Pneumonia) Goal: Resolution of Infection Signs/Symptoms Intervention: Prevent Infection Progression Flowsheets (Taken 11/29/2020 1302) Fever Reduction/Comfort Measures: lightweight bedding medication administered [employer] * Plan of Care - Lianet Calix LCSW - 11/29/2020 3:13 PM [employer] Case Management Comprehensive Assessment Kevin's readmission risk level (if calculated) is: 1-Low Patient Class: Inpatient Consecutive Inpatient Midnights 1 Actual day(s) of hospital stay (compare to working DRG): 1 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 Patient and her adult son live in a house with no steps to enter. 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 She does her own ADL's,meals, laundry, housework and driving. She uses and has no DME. Her primary care is Dr. Velásquez. She has [employer] and prescription coverage through her employer. She manages her own medications and denies any trouble getting or paying for them. She does not have an advanced directive and did not want information when asked. Kevin is not a 30 day re-hospitalization. Plan of Care (Problem/ situation/ barrier + goals/ milestones + interventions + evaluation of progress = Plan of Care) Hospital Plan:supplemental oxygen, remdisivir, supportive care Anticipated Discharge Plan: Home (no arranged services) 11/29/20 Patient/ patient student services representative's preferences regarding the discharge plan: Home Discharge Planning Choice Documentation, if applicable: post acute choices were not presented during this contact. SUMMARY (summary of interaction with patient/decision maker, family and interdisciplinary team) Met with Kevin and introduced self and role and discussed plan of care. Patient plans to return home at nd. She has support of her son, sister and other family. She has already been isolating at home as was diagnosed with COVID 19 prior to admission. She denies any dc needs or concerns at this time. Worker will monitor for home oxygen needs. Suspected or Confirmed COVID-19 Home Assessment Does patient have ability to self isolate? Please explain. YES Does the patient have a mask or other [facility] approved covering to cover their mouth and nose when caregivers are present? YES Will patient have access to a private bathroom not shared with others? YES Does patient have adequate care giving? YES Are those caregivers able to adhere to the isolation precautions needed? YES Does patient need home health? NO Does patient have access to adequate food, water, and medications? YES IM Letter Documentation, if applicable N/A - Payor is not Medicare Decision Maker / Plant Care Worker Information Patient is medical decision-maker [employer] * Interdisciplinary - Pablo Oscar RD, LDN - 11/29/2020 1:36 PM [employer] Images from the original note were not included. ASSESSMENT: Nutrition Assessment triggered by hemoglobin A1c, newly diagnosed DM PROBLEM: Altered nutrition related laboratory values, related to DM as evidenced by hemoglobin A1C. Principal Problem: Acute respiratory failure with hypoxia (HCC) Past Medical History: Past Medical History Positives Diagnosis Date ??? Asthma Diet: DIET CHO CONSISTENT MEDIUM CALORIE Chew/swallow: no difficulty Intake Adequacy: reduced since onset of symptoms 11/19/20 IV's: decadron Skin/Wound: Oliver score 23, intact Labs noted: Hemoglobin A1C w/ Estimated Glucose Ref Range & Units 11/29/20 HGB-A1C 4.0 - 6.0 % 8.5High Est Average Glucose mg/dL 197.3 Glucose 135-386 Albumin 3.4 Triglycerides 156 Meds noted: remdesivir Diabetes Medications Insulin insulin glargine (LANTUS) 100 UNIT/ML injection 32 Units 32 Units, Subcutaneous, NIGHTLY insulin lispro (HumaLOG) 100 UNIT/ML injection 10 Units 10 Units, Subcutaneous, 3 TIMES DAILY BEFORE MEALS insulin lispro (HumaLOG) 100 UNIT/ML injection 2-12 Units 2-12 Units, Subcutaneous, 4 TIMES DAILY WITH MEALS & NIGHTLY, MILD SLIDING SCALE
If BS = 70-180, give no correction Insulin. ??
If BS = 181-200, give 2 Units. ??
If BS = 201-250, give 4 Units. ??
If BS = 251-300, give 6 Units.
If BS = 301-350, give 8 Units.
If BS = 351-400, give 10 Units.
If BS is greater than 400, give 12 Units and call physician. Diabetic Other glucose (GLUTOSE) 40 % gel GEL 15 g 15 g, Oral, PRN, Dose is based on glucose. 37.5 g tube = 15 GRAMS of GLUCOSE. For 15 GRAM GLUCOSE dose, give entire 37.5 g size tube.

Administer 1 dose if patient is unable to takefood, but conscious and able to swallow Linked Group 1: Or Linked Group Details Carbohydrates dextrose 50 % solution 12.5 g 12.5 g, Intravenous, PRN, If IV patent in patient with blood glucose of 50 or less, or Unconscious,Conscious but NPO or Unable to Swallow regardless of blood glucose, administer 1 dose of dextrose 50% solution. Linked Group 1: Or Linked Group Details Education needs: not addressed Patient needs history of glucose intolerance or DM Height: Ht Readings from Last 1 Encounters: 11/28/20 5' 3 (1.6 m) Weight: Wt Readings from Last 1 Encounters: 11/28/20 235 lb (106.6 kg) BMI weight range for height: 107-140 BMI: Body mass index is 41.63 kg/m??. BMI equal to or greater than 40 indicative of obesity Adjusted body weight: 145 pounds NEEDS: Calories: 3719-5613 Protein: 65(1.0 grams per kg adjusted body weight) Fluid: 1600 GOAL: promote nutritional adequacy INTERVENTION: patient admitted with shortness of breath and recent Covid19 diagnosis. Receiving decadron. Hemoglobin A1c was above the [employer] Diabetes [employer] treatment diagnostic criteria of of lessthan 6.5%. Patient denies history of glucose intolerance or Diabetes mellitis. Basel/bolus insulin in place to control blood glucose. General diet changed to 1800 calorie carbohydrate consistent diet. Suggest endocrinology referral. Reassess 12/02/[address], GABE [employer] * Interdisciplinary - Marleny Browne CRT - 11/29/2020 8:21 AM CST Sa02-91% on 3L nasal cannula RR-16 HR-75 [employer] * Interdisciplinary - Tay Carlson RN - 11/29/2020 6:04 AM CST Pt is resting in bed and is easily aroused. Pt is alert and oriented x 4. Pt has no complaints of pain or discomfort at this time. Pt has call light within reach and fall precautions are in place. [employer] * Plan of Care - Tay Carlson RN - 11/29/2020 1:52 AM CST Problem: Adult Inpatient Plan of Care Goal: Plan of Care Review Outcome: Ongoing (see interventions/notes) Flowsheets Taken 11/28/2020 2307 by Tay Carlson RN Plan of Care Reviewed With: patient Today's Goal: SPo2 greater than 92% this shift Taken 11/28/2020 1744 by Ivette Blount RN Progress: no change Outcome Summary: SPo2 maintained greater than 92% on 3L/NC Does the patient need assistance with discharge and/or transitioning to the next level of care?: Yes, will consult case management Goal: Absence of Hospital-Acquired Illness or Injury Outcome: Ongoing (see interventions/notes) Goal: Optimal Comfort and Wellbeing Outcome: Ongoing (see interventions/notes) Goal: Readiness for Transition of Care Outcome: Ongoing (see interventions/notes) Goal: Rounds/Family Conference Outcome: Ongoing (see interventions/notes) Problem: Fluid Imbalance (Pneumonia) Goal: Fluid Balance Outcome: Ongoing (see interventions/notes) Problem: Infection (Pneumonia) Goal: Resolution of Infection Signs/Symptoms Outcome: Ongoing (see interventions/notes) Problem: Respiratory Compromise (Pneumonia) Goal: Effective Oxygenation and Ventilation Outcome: Ongoing (see interventions/notes) [employer] * Interdisciplinary - Tay Carlson RN - 11/29/2020 12:07 AM CST Pt is resting in her chair. Pt is easily aroused and is alert and oriented x 4. Pt has no complaints of pain or discomfort at this time. Pt has call light within reach and fall precautions are in place. [employer] * Plan of Care - Ivette Blount RN - 11/28/2020 5:46 PM CST Problem: Adult Inpatient Plan of Care Goal: Plan of Care Review Outcome: Ongoing (see interventions/notes) Flowsheets Taken 11/28/2020 6594 Progress: no change Outcome Summary: SPo2 maintained greater than 92% on 3L/NC Today's Goal: SPo2 greater than 92% this shift Does the patient need assistance with discharge and/or transitioning to the next level of care?: Yes, will consult case management Taken 11/28/2020 1200 Plan of Care Reviewed With: patient Goal: Absence of Hospital-Acquired Illness or Injury Outcome: Ongoing (see interventions/notes) Goal: Optimal Comfort and Wellbeing Outcome: Ongoing (see interventions/notes) Goal: Readiness for Transition of Care Outcome: Ongoing (see interventions/notes) Goal: Rounds/Family Conference Outcome: Ongoing (see interventions/notes) Problem: Fluid Imbalance (Pneumonia) Goal: Fluid Balance Outcome: Ongoing (see interventions/notes) Problem: Infection (Pneumonia) Goal: Resolution of Infection Signs/Symptoms Outcome: Ongoing (see interventions/notes) Problem: Respiratory Compromise (Pneumonia) Goal: Effective Oxygenation and Ventilation Outcome: Ongoing (see interventions/notes) [employer] documented in this encounter Plan of Treatment Scheduled Orders Name Type Priority Associated Diagnoses Orde r Schedule Pulse Oximetry, Spot PFT Routine WITH VITALS until discontinued starting 11/28/2020 documented as of this encounter Procedures Procedure Name Priority Date/Time Associated Diagnosis Comments POCT GLUCOSE Routine 12/01/2020 9:15 AM [employer] N-TERMINAL- PRO B TYPE NATRIURETIC PEPTIDE STAT 12/01/2020 6:21 AM [employer] CBC WITH AUTO DIFFERENTIAL Routine 12/01/2020 6:21 AM [employer] PROTIME (PT) (PROTHROMBIN TIME) Routine 12/01/2020 6:21 AM [employer] CMP (COMPREHENSIVE METABOLIC PANEL) Routine 12/01/2020 6:21 AM [employer] COMPLETE BLOOD COUNT (CBC) WITH DIFF Routine 12/01/2020 6:21 AM [employer] POCT GLUCOSE Routine 12/01/2020 5:28 AM [employer] POCT GLUCOSE Routine 11/30/2020 8:47 PM [employer] POCT GLUCOSE Routine 11/30/2020 4:50 PM [employer] POCT GLUCOSE Routine 11/30/2020 12:20 PM [employer] CBC WITH AUTO DIFFERENTIAL Routine 11/30/2020 5:25 AM [employer] PROTIME (PT) (PROTHROMBIN TIME) Routine 11/30/2020 5:25 AM [employer] CMP (COMPREHENSIVE METABOLIC PANEL) Routine 11/30/2020 5:25 AM [employer] COMPLETE BLOOD COUNT (CBC) WITH DIFF Routine 11/30/2020 5:25 AM [employer] POCT GLUCOSE Routine 11/30/2020 5:07 AM [employer] POCT GLUCOSE Routine 11/29/2020 8:19 PM [employer] URINALYSIS REFLEX IF INDICATED BY ABNORMAL RESULTS Routine 11/29/2020 6:25 PM [employer] UR MICROALBUMIN/CREATININ E RATIO RANDOM Routine 11/29/2020 6:25 PM [employer] POCT GLUCOSE Routine 11/29/2020 5:07 PM [employer] POCT GLUCOSE Routine 11/29/2020 11:57 AM [employer] POCT GLUCOSE Routine 11/29/2020 5:43 AM [employer] HEMOGLOBIN A1C W/ ESTIMATED GLUCOSE Routine 11/29/2020 4:00 AM [employer] CBC WITH AUTO DIFFERENTIAL Routine 11/29/2020 4:00 AM [employer] THYROID STIMULATING HORMONE (TSH) Routine 11/29/2020 4:00 AM [employer] PROTIME (PT) (PROTHROMBIN TIME) Routine 11/29/2020 4:00 AM [employer] LIPID PANEL Routine 11/29/2020 4:00 AM [employer] LACTATE DEHYDROGENASE (LD) Routine 11/29/2020 4:00 AM [employer] FERRITIN Routine 11/29/2020 4:00 AM [employer] CMP (COMPREHENSIVE METABOLIC PANEL) Routine 11/29/2020 4:00 AM [employer] COMPLETE BLOOD COUNT (CBC) WITH DIFF Routine 11/29/2020 4:00 AM [employer] C-REACTIVE PROTEIN (CRP) QUANT Routine 11/29/2020 4:00 AM [employer] POCT GLUCOSE Routine 11/28/2020 8:13 PM [employer] TROPONIN I (TRP I) STAT 11/28/2020 4: 17 PM [employer] PROTIME (PT) (PROTHROMBIN TIME) Routine 11/28/2020 4:17 PM [employer] CMP (COMPREHENSIVE METABOLIC PANEL) Routine 11/28/2020 4:17 [address] [address] CHEST W CONTRAST STAT 11/28/2020 9 :23 AM [employer] MDI TREATMENT RT-INITIAL STAT 11/28/2020 8:34 AM [employer] PROCALCITONIN STAT 11/28/2020 7:18 AM [employer] EXTRA TUBES STAT 11/28/2020 7:18 AM [employer] MINT GREEN, LI HEPARIN/SST TOP TUBE STAT 11/28/2020 7:18 AM [employer] MINT GREEN, LI HEPARIN/SST TOP TUBE STAT 11/28/2020 7:18 AM [employer] GOLD TOP TUBE STAT 11/28/2020 7:18 AM [employer] BLUE TOP TUBE STAT 11/28/2020 7:18 AM [employer] LAVENDER TOP TUBE STAT 11/28/2020 7:1 8 AM [employer] LAVENDER TOP TUBE STAT 11/28/2020 7:1 8 AM [employer] CBC WITH AUTO DIFFERENTIAL STAT 11/28/2020 7:18 AM [employer] TROPONIN I (TRP I) STAT 11/28/2020 7: 18 AM [employer] APTT (PTT) STAT 11/28/2020 7:18 AM [employer] PROTIME (PT) (PROTHROMBIN TIME) STAT 11/28/2020 7:18 AM MA[employer] D-DIMER STAT 11/28/2020 7:18 AM [employer] CMP (COMPREHENSIVE METABOLIC PANEL) STAT 11/28/2020 7:18 AM [employer] COMPLETE BLOOD COUNT (CBC) WITH DIFF STAT 11/28/2020 7:18 AM [employer] EKG 12 LEAD STAT 11/28/2020 7:08 AM [employer] documented in this encounter Results * (ABNORMAL) POCT Glucose (12/01/2020 9:15 AM MANA[employer]) Only the most recent of11 resultswithin the time period is included. GLUCOSE,BEDSID E POCT 234(H) 70 - 99 mg/dL 12/01/2020 9:20 AM MANAGER [employer]ING [facility] Blood 12/01/2020 9:15 AM [employer] 12/01/2020 9:20 AM MANA[employer] us None Provider POINT OF CARE TESTING Final Resu lt [facility] [place] [address] * NT-proBNP (12/01/2020 6:21 AM MANAGER [employer]) [facility] NT PROBNP 168.1 5.0 - 227.0 pg/mL 12/01/2020 9:02 AM MANAGER [employer] MARK[employer]ING [facility] Comment:NT-proBNP values < 3 00 pg/mL have a 99% negative predictive value for excluding acute congestive heart failure (CHF) in all age groups. In the absence of renal failure, CHF is suggested in adults < 50 years of age with a NT-pro BNP > 450 pg/mL; in adults 50-75 years of age with a NT-proBNP > 900 pg/mL; and in adults > 75 years of age with a NT-proBNP > 1800 pg/mL. For patients with an e-GFR < 60 a NT-proBNP > 1200 pg/mL yields a diagnostic sensitivity and specificity of 89% and 72% for acute CHF. ([facility] data) Blood Venipuncture / Unknown 12/01/2020 6:21 AM [employer] 12/01/2020 6:25 AM [employer] us Candace Boyce MD CHEMISTRY ORDERABLES Final Re sult [facility] [place] [address] * (ABNORMAL) CBC with Auto Differential (12/01/2020 6:21 AM MANA[employer]) Only the most recent of4 resultswithin the time period is included. WBC 9.36 4.00 - 12.00 10(3)/mcL 12/01/2020 6:56 AM [facility] RBC 5.28 3.80 - 5.30 10(6)/mcL 12/01/2020 6:56 AM [facility] HEMOGLOBIN (HGB) 13.7 12.0 - 15.8 g/dL 12/01/2020 6:56 AM [facility] HEMATOCRIT (HCT) 43.1 36.0 - 47.0 % 12/01/2020 6:56 AM [facility] MCV 81.6(L) 82.0 - 96.0 fL 12/01/2020 6:56 AM [facility] MCH 25.9(L) 26.0 - 34.0 pg 12/01/2020 6:56 AM [facility] MCHC 31.8 31.0 - 36.0 g/dL 12/01/2020 6:56 AM [facility] PLATELET COUNT 404 140 - 440 10(3)/mcL 12/01/2020 6:56 AM [facility] RDW 12.8 11.8 - 15.5 % 12/01/2020 6:56 AM [facility] MPV 10.2 9.7 - 12.4 fL 12/01/2020 6:56 AM [facility] NEUTROPHILS 68.8 47.0 - 73.0 % 12/01/2020 6:56 AM [facility] LYMPHOCYTES 23.7 18.0 - 42.0 % 12/01/2020 6:56 AM [facility] MONOCYTES 7.4 4.0 - 12.0 % 12/01/2020 6:56 AM [facility] EOSINOPHILS 0.0 0.0 - 5.0 % 12/01/2020 6:56 AM [facility] BASOPHILS 0.1 0.0 - 1.0 % 12/01/2020 6:56 AM [facility] ABSOLUTE NEUTROPHILS 6.44 1.60 - 7.70 10(3)/[facility] 12/01/2020 6:56 AM [facility] ABSOLUTE LYMPHOCYTES 2.22 1.30 - 3.20 10(3)/[facility] 12/01/2020 6:56 AM [facility] ABSOLUTE MONOCYTES 0.69 0.20 - 1.00 10(3)/[facility] 12/01/2020 6:56 AM [facility] ABSOLUTE EOSINOPHIL 0.00 0.00 - 0.40 10(3)/[facility] 12/01/2020 6:56 AM [facility] ABSOLUTE BASOPHILS 0.01 0.00 - 0.10 10(3)/[facility] 12/01/2020 6:56 AM [facility] NRBC PER 100 WBC 0 12/01/19 6:56 AM [facility] Blood Venipuncture / Unknown 12/01/2020 6:21 AM [employer] 12/01/2020 6:25 AM [facility] us Komal Lugo SENIOR COMMUNICATIONS ENGINEER, KEY MAKER HEMATOLOGY ORDERABLE S Final Result [facility] [place] [address] * (ABNORMAL) CMP (Comprehensive Metabolic Panel) (12/01/2020 6:21 AM [employer]) Only the most recent of5 resultswithin the time period is included. SODIUM 139 136 - 144 mmol/L 12/01/2020 6:48 AM [facility] POTASSIUM 4.0 3.5 - 5.1 mmol/L 12/01/2020 6:48 AM [facility] CHLORIDE 100 100 - 110 mmol/L 12/01/2020 6:48 AM [facility] CO2, VENOUS 29 22 - 32 mmol/L 12/01/2020 6:48 AM [facility] ANION GAP 14.0 8.0 - 20.0 mmol/L 12/01/2020 6:48 AM [facility] GLUCOSE 72 70 - 99 mg/dL 12/01/2020 6:48 AM [facility] BUN 15 6 - 20 mg/dL 12/01/2020 6:48 AM [facility] CREATININE, BLOOD 0.62 0.60 - 1.10 mg/dL 12/01/2020 6:48 AM [facility] BUN/CREATININE RATIO 24(H) 12 - 20 ratio 12/01/2020 6:48 AM [facility] TOTAL PROTEIN 7.3 6.0 - 8.3 g/dL 12/01/2020 6:48 AM [facility] ALBUMIN 3.4(L) 3.5 - 5.2 g/dL 12/01/2020 6:48 AM [facility] Comment: The colormetric methods used for the determination of Albumin may lead to falsely elevated test results in patients suffering from renal failure or insufficiency due to interference with other proteins. A/G RATIO 0.9(L) 1.0 - 2.0 12/01/2020 6:48 AM [facility] CALCIUM 9.1 8.9 - 10.3 mg/dL 12/01/2020 6:48 AM [facility] T BILI 0.4 <=1.2 mg/dL 12/01/2020 6:48 AM [facility] SGOT (AST) 13 <=32 U/L 12/01/2020 6:48 AM [facility] SGPT (ALT) 21 <=41 U/L 12/01/2020 6:48 AM MANAGER TRADE MARKET[employer] [facility] ALKALINE PHOSPHATASE 86 35 - 105 U/L 12/01/2020 6:48 AM MANAGER TRADE [employer] [facility] GFR, EST. NONAFRICAN >60 >=60 12/01/2020 6:48 AM MANAGER [employer]ING [facility] GFR, EST. >60 >=60 021 6:48 AM MANAGER [employer] [facility] Comment: Creatinine Clearance is the preferred criteria for selecting drug dose adjustments in renally impaired patients. ??The GFR is provided as additional pertinent clinical information. GFR is reported in mL/min/1.73 sq m. Blood Venipuncture / Unknown 12/01/2020 6:21 AM MANAGER TR[employer] 12/01/2020 6:25 AM MANAGER TR[employer] MARK[employer] Patrick Oliva MD CHEMISTRY ORDERABLES Final Res ult Performing Organization Address City/State/[facility] Co de Phone Number [facility] [place] [address] * PROTIME (PT) (PROTHROMBIN TIME) (12/01/2020 6:21 AM MANAGER [employer]) Only the most recent of5 resultswithin the time period is included. PROTIME-PATIENT 13.3 11.6 - 14.8 sec 12/01/2020 6:56 AM MANAGER TRADE [employer] [facility] INR 1.0 0.9 - 1.2 12/01/2020 6:56 AM MANAGER TRADE [employer] [facility] Comment: Therapeutic Ranges INR = 2.0-3.0: Venous thromb, atrial fib, pul embolism, tissue heart valve, ami. INR = 2.5-3.5: Mechanical heart valve Critical value for INR is >/= 4.5 Blood Venipuncture / Unknown 12/01/2020 6:21 AM MANAGER [employer] 12/01/2020 6:25 AM MANAGER TR[employer] us Patrick Oliva MD HEMATOLOGY ORDERABLES Final Re sult [facility] [place] [address] * (ABNORMAL) URINALYSIS REFLEX IF INDICATED BY ABNORMAL RESULTS (11/29/2020 6:25 PM MANAGER [employer]) SPECIFIC GRAVITY 1.020 1.003 - 1.030 11/29/2020 6:57 PM MANAGER TRADE [employer] [facility] URINE PH 5.0 5.0 - 9.0 11/29/2020 6:57 PM MANAGER TRADE [employer] [facility] WBC ESTERASE Negative Negative 11/29/2020 6:57 PM MANAGER TRADE [employer] [facility] NITRITE Negative Negative 11/29/2020 6:57 PM [facility] PROTEIN, RANDOM URINE 30 mg/dL(A) Negative 11/29/2020 6:57 PM [facility] URINE GLUCOSE, QUAL 250 mg/dL(A) Negative 11/29/2020 6:57 PM MANAGER TRADE [employer] [facility] URINE KETONES 5 mg/dL(A) Negative 11/29/2020 6:57 PM MANAGER TRADE [employer] [facility] UROBILINOGEN Normal Normal mg/dL 11/29/2020 6:57 PM [facility] URINE BILIRUBIN Negative Negative 6:57 PM [facility] URINE BLOOD 10 /uL(A) Negative isma/ul 11/29/2020 6:57 PM [facility] URINALYSIS COLOR Yellow 11/29/19 6:57 PM [facility] URINALYSIS CLARITY Slightly Cloudy 11/29/2020 6:57 PM [facility] WBC (Urine) 0-5 Negative, 0-5 /hpf 11/29/2020 6:57 PM [facility] URINE RBC'S 6-10(A) Negative, 0-2 /hpf 11/29/2020 6:57 PM [facility] EPITHELIAL CELLS Large amount squamous /lpf 11/29/2020 6:57 PM MANAGER [employer]ING [facility] BACTERIA, URINE Moderate(A) Negative /hpf 11/29/2020 6:57 PM MANAGER TRADE [employer] [facility] Urine URINE SPECIMEN / Unknown Non-Phlebotomy Collection / Unknown 11/29/2020 6:25 PM MANAGER [employer] 11/29/2020 6:29 PM MANAGER [employer] Candace Boyce MD URINE ORDERABLES Final Result [facility] [place] [address] * Ur Microalbumin/Creatinine Ratio Random (11/29/2020 6:25 PM MANAGER [employer]) RAN UR MICROALBUMIN 1.26 <=2.00 mg/dL 11/29/2020 7:04 PM MANAGER [employer]ING [facility] CREATININE URINE 121.6 28.0 - 217.0 mg/dL 11/29/2020 7:04 PM MANAGER TRADE [employer] [facility] ALB/CREAT RATIO <13 1 - 30 mg/g CRE 11/29/2020 7:04 PM MANAGER TRADE [employer] [facility] Urine Non-Phlebotomy Collection / Unknown 11/29/2020 6:25 PM MANAGER [employer] 11/29/2020 6:29 PM MANAGER [employer] Candace Boyce MD URINE ORDERABLES Final Result [facility] [place] [address] * (ABNORMAL) Lipid Panel AM (11/29/2020 4:00 AM MANAGER [employer]) CHOLESTEROL 192 <=200 mg/dL 11/29/2020 5:47 AM MANAGER [employer]ING [facility] TRIGLYCERIDES 156(H) <150 mg/dL 11/29/2020 5:47 AM MANAGER [employer]ING [facility] HDL CHOLESTEROL 46.5 >40 mg/dL 02/05/202 1 5:47 AM MANAGER [employer]ING [facility] LDL 114 5 - 130 mg/dL 11/29/2020 5:47 AM MANAGER [employer]ING [facility] VLDL 31 5 - 55 mg/dL 11/29/2020 5:47 AM MANAGER [employer]ING [facility] CHOL/HDL RATIO 4.1 0.0 - 4.4 11/29/2020 5:47 AM MANAGER [employer]ING [facility] NON-HDL CHOLESTEROL 145.5(H) <130 mg/dL 11/29/2020 5:47 AM MANAGER [employer]ING [facility] Blood BLOOD SPECIMEN / Unknown Butterfly Puncture / Unknown 11/29/2020 4:00 AM MANAGER [employer] 11/29/2020 4:19 AM MANAGER [employer] Candace Boyce MD CHEMISTRY ORDERABLES Final Re sult Performing Organization Address City/[facility]/ZIP Co de Phone Number [facility] [place] [address] * Thyroid Stimulating Hormone (TSH) (11/29/2020 4:00 AM MANAGER [employer]) TSH 0.584 0.270 - 4.200 mIU/L 11/29/2020 5:55 AM MANAGER TRADE [employer] [facility] Blood Butterfly Punctu re / Unknown 11/29/2020 4:00 AM MANAGER [employer] 11/29/2020 4:19 AM MANAGER [employer] Patrick Oliva MD CHEMISTRY ORDERABLES Final Res ult Performing Organization Address City/[facility]/ZIP Co de Phone Number [facility] [place] [address] * (ABNORMAL) Hemoglobin A1C w/ Estimated Glucose (11/29/2020 4:00 AM MANAGER [employer]) HGB-A1C 8.5(H) 4.0 - 6.0 % 11/29/2020 7:19 AM MANAGER [employer]ING [facility] Est Average Glucose 197.3 mg/dL 11/29/2020 7:19 AM MANAGER [employer]ING [facility] Blood Butterfly Punctu re / Unknown 11/29/2020 4:00 AM MANAGER [employer] 11/29/2020 4:19 AM MANAGER [employer]ING Narrative [facility] - 11/29/2020 7:19 AM MANAGER [employer] HEMOGLOBIN A1C: DIABETIC PATIENTS: WELL-CONTROLLED: ?? 6.2 - 7.0 INTERMEDIATE WELL-CONTROLLED: ??7.0 - 9.0 POORLY-CONTROLLED: ??>9.0 us Komal Lugo APRN, KEY MAKER CHEMISTRY ORDERABLES Final Result Performing Organization Address City/[facility]/ZIP Co de Phone Number [facility] [place] [address] * (ABNORMAL) LACTATE DEHYDROGENASE (LD) (11/29/2020 4:00 AM MANAGER [employer]) LDH 381(H) 135 - 214 U/L 11/29/2020 6:42 AM MANAGER [employer]ING [facility] Comment: Hemolysis present: results may be falsely elevated. Blood Butterfly Punctu re / Unknown 11/29/2020 4:00 AM MANAGER [employer]ING 11/29/2020 4:19 AM MANAGER [employer] us Komal Lugo APRN, KEY MAKER CHEMISTRY ORDERABLES Final Result Performing Organization Address City/[facility]/ZIP Co de Phone Number [facility] [place] [address] * (ABNORMAL) Ferritin (11/29/2020 4:00 AM MANAGER [employer]) FERRITIN 390(H) 13 - 150 ng/mL 11/29/2020 5:55 AM MANAGER TRADE [employer] [facility] Blood Butterfly Punctu re / Unknown 11/29/2020 4:00 AM MANAGER [employer]ING 11/29/2020 4:19 AM MANAGER [employer]ING Komal Lugo APRN, KEY MAKER CHEMISTRY ORDERABLES Final Result Performing Organization Address [facility] Co de Phone Number [facility] [place] [address] * (ABNORMAL) C-Reactive Protein (CRP) Quant (11/29/2020 4:00 AM MANAGER [employer]) C-REACTIVE PROTEIN 22.33(H) <0.50 mg/dL 11/29/2020 5:55 AM MANAGER TRADE MARKETING [facility] Blood Butterfly Punctu re / Unknown 11/29/2020 4:00 AM MANAGER [employer]ING 11/29/2020 4:19 AM MANAGER [employer] MARK[employer]ING us Komal Lugo APRN, KEY MAKER CHEMISTRY ORDERABLES Final Result Performing Organization Address [facility] Co de Phone Number [facility] [place] [address] * Repeat Troponin in 3 hours (11/28/2020 4:17 PM MANAGER [employer]) Only the most recent of2 resultswithin the time period is included. TROPONIN I <0.300 <=0.300 ng/mL 11/28/2020 4:51 PM MANAGER [employer]ING [facility] Blood Venipuncture / Unknown 11/28/2020 4:17 PM MANAGER [employer]ING 11/28/2020 4:17 PM MANAGER [employer] MARKETING us Skip Gudino MD CHEMISTRY ORDERABLES Final Result Performing Organization Address [facility] Co de Phone Number [facility] [place] [address] * CT CHEST W CONTRAST (11/28/2020 9:23 AM MANAGER [employer]) Anatomical Region Laterality Modality Chest N/A Computed Tomogra phy 11/28/2020 9:38 AM MANAGER [employer]ING Impressions 11/28/2020 9:41 AM MANAGER [employer]ING IMPRESSION: ?? 1. ??No large or central PE. ??Peripheral pulmonary arteries difficult to visualize due to motion. 2. ??Diffuse bilateral pulmonary ground-glass opacities and consolidation in keeping with COVID-19 pneumonia given patient has this diagnosis. 3. ??Left breast mass-correlate with mammogram when patient's clinical status is stable Narrative 11/28/2020 9:41 AM MANAGER [employer] EXAM DESCRIPTION: ?? CT angiogram chest REASON FOR STUDY: ?? PE suspected, intermediate prob, positive D-dimer, mid chest pain and shortness of breath, COVID positive 11/22/2020, D-dimer 1.17 TECHNIQUE: ??CT angiogram of the chest performed with intravenous contrast using helical scanning technique with dynamic intravenous contrast injection. Reconstructed coronal and sagittal MPR images reviewed. All images stored on PACS. ??3D MIP images rendered on scanning unit and reviewed at time of interpretation. Automated exposure control was used as a dose optimization technique for this examination. CONTRAST TYPE/DOSE: ?? 100 mL Isovue 370 injected via ??left antecubital fossa without complication COMPARISON: ?? No prior chest CT FINDINGS: ??VASCULATURE: ??No large or central PE. ??The peripheral pulmonary arteries are difficult to visualize due to motion. 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 LUNGS: ??Diffuse bilateral pulmonary ground-glass opacities and consolidation with some medial basilar atelectasis. PLEURA: ??Tiny bilateral pleural effusions. ??No pneumothorax. MEDIASTINUM/YANN: ??No identified masses or abnormal nodes. HEART: ??Heart size is normal with no pericardial effusion. AXILLA: ??No adenopathy. CHEST WALL: ??2.9 x 1.6 cm nodule lateral left breast. HARDWARE/LINES/TUBES: ??None. UPPER ABDOMEN: ??Hepatic steatosis. MUSCULOSKELETAL: ??No significant abnormality. OTHER: ??No significant abnormality. THIS IS AN ELECTRONICALLY VERIFIED FINAL REPORT 11/28/2020 9:38 AM - Electronically signed by Jeimy Alberto M.D. : D: ??11/28/2020 9:38 AM T: ??11/28/2020 9:38 AM Report ID: [id number] Reading Location: ??[id number] Procedure Note Jeimy Alberto MD - 11/28/2020 EXAM DESCRIPTION: CT angiogram chest REASON FOR STUDY: PE suspected, intermediate prob, positive D-dimer, mid chest pain and shortness of breath, COVID positive 11/22/2020, D-dimer 1.17 TECHNIQUE: CT angiogram of the chest performed with intravenous contrast using helical scanning technique with dynamic intravenous contrast injection. Reconstructed coronal and sagittal MPR images reviewed. All images stored on PACS. 3D MIP images rendered on scanning unit and reviewed at time of interpretation. Automated exposure control was used as a dose optimization technique for this examination. CONTRAST TYPE/DOSE: 100 mL Isovue 370 injected via left antecubital fossa without complication COMPARISON: No prior chest CT FINDINGS: VASCULATURE: No large or central PE. The peripheral pulmonary arteries are difficult to visualize due to motion. 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 LUNGS: Diffuse bilateral pulmonary ground-glass opacities and consolidation with some medial basilar atelectasis. PLEURA: Tiny bilateral pleural effusions. No pneumothorax. MEDIASTINUM/YANN: No identified masses or abnormal nodes. HEART: Heart size is normal with no pericardial effusion. AXILLA: No adenopathy. CHEST WALL: 2.9 x 1.6 cm nodule lateral left breast. HARDWARE/LINES/TUBES: None. UPPER ABDOMEN: Hepatic steatosis. MUSCULOSKELETAL: No significant abnormality. OTHER: No significant abnormality. THIS IS AN ELECTRONICALLY VERIFIED FINAL REPORT 11/28/2020 9:38 AM - Electronically signed by Jeimy Alberto M.D. : Report ID: [id number] Reading Location: [id number] IMPRESSION: 1. No large or central PE. Peripheral pulmonary arteries difficult to visualize due to motion. 2. Diffuse bilateral pulmonary ground-glass opacities and consolidation in keeping with COVID-19 pneumonia given patient has this diagnosis. 3. Left breast mass-correlate with mammogram when patient's clinical status is stable us Skip Gudino MD IM CT ORDERABLES Final Res ult * Procalcitonin (11/28/2020 7:18 AM MANAGER [employer] MARK[employer]) PROCALCITONIN 0.14 <=0.25 ng/mL [facility] [id number] 11/28/2020 3:12 PM MANAGER TRADE MARKETING [facility] Blood Venous Catheter (IV) / Unknown 11/28/2020 7:18 AM MANAGER [employer] MARK[employer]ING 11/28/2020 7:36 AM MANAGER TR[employer] MARKETING Narrative [facility] - 11/28/2020 3:12 PM MANAGER [employer] MARK[employer]ING If the differential diagnosis is systemic bacterial infection, sepsis, or septic shock use these guidelines: <=0.25 ng/mL: Low risk for systemic bacterial infection, sepsis, or septic shock. ??Localized bacterial infection possible: Suggest re-testing in 24 hours >=0.50 ng/mL: ??Systemic bacterial infection, sepsis, or septic shock are possible: suggest re-testing in approximately 24 hours. ?? If the differential diagnosis is suspected lower respiratory tract infection (LRTI) or there is confirmed LRTI: < 0.1 ng/mL: ?? Suggests absence of bacterial infection. ?? Antibiotic therapy strongly discouraged. 0.1-0.25 ng/mL: ??Suggests bacterial infection is unlikely. ??Antibiotic therapy discouraged. 0.26-0.5 ng/mL: ??Suggests possible bacterial infection. ??Antibiotic therapy encouraged. > 0.5 ng/mL: Suggests bacterial infection. ?? Antibiotic therapy strongly encouraged us Skip Gudino MD IMMUNOLOGY ORDERABLES Final Result [facility] [address] [place] [address], * APTT (PTT) (11/28/2020 7:18 AM MANAGER [employer] MARK[employer]ING) PTT 32 24 - 36 sec 11/28/2020 8:25 AM MANAGER TRADE MARKETING [facility] Blood Venous Catheter (IV) / Unknown 11/28/2020 7:18 AM MANAGER [employer]ING 11/28/2020 7:36 AM MANAGER TR[employer] MARKETING Narrative [facility] - 11/28/2020 8:25 AM MANAGER TRADE MARK[employer]ING Therapeutic range for unfractionated heparin at 0.3-0.7 U/mL is an aPTT value in the range of 71-100 seconds. Critical value for the PTT test is >= 122 seconds. Skip Gudino MD HEMATOLOGY ORDERABLES Final Result Performing Organization Address [facility] Co de Phone Number [facility] [place] [address] * (ABNORMAL) D-DIMER [id number] (11/28/2020 7:18 AM MANAGER [employer] MARK[employer]) D DIMER 1.17(H) <0.50 mcg/mL FEU 11/28/2020 8:27 AM MANAGER TRADE MARKETING [facility] Blood Venous Catheter (IV) / Unknown 11/28/2020 7:18 AM MANAGER [employer] MARK[employer]ING 11/28/2020 7:36 AM MANAGER TR[employer] MARKETING Narrative [facility] - 11/28/2020 8:27 AM MANAGER TRADE MARK[employer]ING The FDA has approved this method to exclude the diagnosis of DVT and/or PE at the cutoff value of <0.50 mcg/mL FEU. Skip Gudino MD HEMATOLOGY ORDERABLES Final Result Performing Organization Address [facility] de Phone Number [facility] [place] [address] * MINDIAMANTE SAMAYOA HEPARIN/SST TOP TUBE (11/28/2020 7:18 AM MANAGER TRADE MARKETING) Only the most recent of2 resultswithin the time period is included. Blood Venous Catheter (IV) / Unknown 11/28/2020 7:18 AM MANAGER TR[employer] MARKETING 11/28/2020 7:36 AM MANAGER TR[employer] MARKETING Skip Gudino MD HEMATOLOGY ORDERABLES Final Result Performing Organization Address City/[facility] Co de Phone Number [facility] [place] [address] * Lavender Top Tube (11/28/2020 7:18 AM MANAGER TR[employer] MARKETING) Only the most recent of2 resultswithin the time period is included. Blood Venous Catheter (IV) / Unknown 11/28/2020 7:18 AM MANAGER TR[employer] MARKETING 11/28/2020 7:36 AM MANAGER TRADE MARKETING us Skip Gudino MD HEMATOLOGY ORDERABLES Final Result Performing Organization Address [facility] de Phone Number [facility] [place] [address] * Gold Top Tube (11/28/2020 7:18 AM MANAGER TR[employer] MARKETING) Blood Venous Catheter (IV) / Unknown 11/28/2020 7:18 AM MANAGER TR[employer] MARKETING 11/28/2020 7:36 AM MANAGER TRADE MARKETING Skip Gudino MD CHEMISTRY ORDERABLES Final Result Performing Organization Address [facility] de Phone Number [facility] [place] [address] * Blue Top Tube (11/28/2020 7:18 AM MANAGER TR[employer] MARKETING) Blood Venous Catheter (IV) / Unknown 11/28/2020 7:18 AM MANAGER TRADE MARKETING 11/28/2020 7:36 AM MANAGER TRADE MARKETING us Skip Gudino MD HEMATOLOGY ORDERABLES Final Result Performing Organization Address [facility] de Phone Number [facility] [place] [address] * EKG 12 LEAD (11/28/2020 7:08 AM MANAGER TR[employer] MARKETING) Ventricular Rate BPM EXTERNAL EKG Atrial Rate BPM EXTERNAL EKG P-R Interval 142 ms EXTERNAL EKG QRS Duration 76 ms EXTERNAL EKG Q-T Duration 312 ms EXTERNAL EKG QTC CALCULATION 417 ms EXTERNAL EKG P [place] 46 degrees EXTERNAL EKG R [place] -2 degrees EXTERNAL EKG T [place] 59 degrees EXTERNAL EKG 11/28/2020 7:08 AM MANAGER TR[employer] MARKETING Impressions EXTERNAL EKG - 11/30/2020 11:43 AM MANAGER [employer] MARK[employer]ING Sinus tachycardia Left ventricular hypertrophy by voltage only ST junctional depression is nonspecific Comparison Summary: No serial comparison made Summary: Abnormal ECG Confirmed by Bill Ghosh [id number] on 11/30/2020 11:43:11 AM Narrative Procedure Note Sharad Khan MD - 11/30/2020 IMPRESSION: Sinus tachycardia Left ventricular hypertrophy by voltage only ST junctional depression is nonspecific Comparison Summary: No serial comparison made Summary: Abnormal ECG Confirmed by Bill Ghosh [id number] on 11/30/2020 11:43:11 AM us Skip Gudino MD IMG ECG ORDERABLES Final Re sult EXTERNAL EKG documented in this encounter Visit Diagnoses Diagnosis Acute respiratory failure with hypoxia (HCC)- Primary Acute respiratory failure COVID-19 Acute hypoxemic respiratory failure due to COVID-19 (HCC) Pneumonia due to infectious organism, unspecified laterality, unspecified part of lung Type 2 diabetes mellitus with other oral complication, without long-term current use of insulin (HCC) COVID-19 HTN (hypertension) Unspecified essential hypertension Type 2 diabetes mellitus, without long-term current use of insulin (HCC) Pneumonia Pneumonia, organism unspecified Insomnia Insomnia, unspecified Hyperlipidemia Other and unspecified hyperlipidemia Acute hypoxemic respiratory failure due to COVID-19 (HCC) documented in this encounter Admitting Diagnoses Diagnosis COVID-19 Acute hypoxemic respiratory failure due to COVID-19 (HCC) documented in this encounter Administered Medications Inactive Administered Medications - up to 3 most recent administrations Medication Order MAR Action Action Date Dose Rate Site 0.9 % sodium chloride solution at 75 mL/hr, Intravenous, ONCE, 1 dose, On Daphnie 11/28/20 at 0830 New Bag 11/28/2020 8:26 AM MANAGER [employer] 1,000 mL 75 mL/hr 0.9 % sodium chloride solution at 100 mL/hr, Intravenous, CONTINUOUS, Starting on Daphnie 11/28/20 at 1400, Until 12/01/20 at 0756 New 11/30/2020 10:33 AM MANAGER [employer]ING 100 mL/hr New Bag 11/29/2020 3:45 PM MANAGER [employer]ING 100 mL/hr New 11/29/2020 12:38 AM MANAGER [employer]ING 100 mL/hr acetaminophen (TYLENOL) suppository 650 mg 650 mg, Rectal, EVERY 4 HOURS PRN, Starting on Daphnie 11/28/20 at 1335, Until 12/01/20 at 1340, Mild pain or more severe pain if patient requests, Fever, If patient is taking oral intake without complications and both PO/ND orders are active, administer through the oral route. acetaminophen (TYLENOL) tablet 650 mg 650 mg, Oral, ONCE, 1 dose, On Daphnie 11/28/20 at 0830, Maximum dose of acetaminophen is 4000 mg from all sources in 24 hours. Given 11/28/2020 8:27 AM MANAGER [employer] 650 mg acetaminophen (TYLENOL) tablet 650 mg 650 mg, Oral, EVERY 4 HOURS PRN, Starting on Daphnie 11/28/20 at 1335, Until [place] 12/01/20 at 1340, Mild pain or more severe pain if patient requests, Fever, If patient is taking oral intake without complications and both PO/ND orders are active, administer through the oral route. Given 11/29/2020 7:38 AM MANAGER [employer] 650 mg amLODIPine (NORVASC) tablet 2.5 mg 2.5 mg, Oral, DAILY, First dose on Daphnie 11/28/20 at 1130, Until Discontinued Given 12/01/2020 9:10 AM MANAGER [employer] 2.5 mg Given 11/30/2020 10:26 AM MANAGER [employer]ING 2.5 mg Given 11/29/2020 9:13 AM MANAGER [employer]ING 2.5 mg AMLODIPINE BESYLATE 5 MG PO TABS 1 dose, Starting on Daphnie 11/28/20 at 1104, Until [place] 11/28/20 at 1111, Created by cabinet override azithromycin (ZITHROMAX) tablet 500 mg 500 mg, Oral, DAILY, First dose on Daphnie 11/28/20 at 1400, Until Discontinued, Indications: Community Acquired PneumoniaIndications:Community Acquired Pneumonia Given 11/29/2020 9:13 AM MANAGER [employer] 500 mg Given 11/28/2020 3:23 PM MANAGER [employer]ING 500 mg cefTRIAXone (ROCEPHIN) injection 1 g 1 g, Intravenous, EVERY 24 HOURS, First dose on Daphnie 11/28/20 at 1400, Until Discontinued, Indications: Community Acquired PneumoniaIndications:Community Acquired Pneumonia Given 11/29/2020 3:46 PM MANAGER [employer]ING 1 g Given 11/28/2020 3:23 PM MANAGER [employer]ING 1 g dexamethasone (DECADRON) injection 6 mg 6 mg, Intravenous, ONCE, 1 dose, On Daphnie 11/28/20 at 0830 Given 11/28/2020 8:27 AM MANAGER [employer]ING 6 mg dexamethasone (DECADRON) injection 6 mg 6 mg, Intravenous, DAILY, First dose on Wed11/29/20 at 0900, Until Discontinued Given 11/29/2020 9:13 AM MANAGER [employer] 6 mg dexamethasone (DECADRON) tablet 6 mg 6 mg, Oral, DAILY WITH BREAKFAST, First dose on Wed11/30/20 at 0800, Until Discontinued Given 12/01/2020 9:10 AM MANAGER [employer]ING 6 mg Given 11/30/2020 10:26 AM MANAGER [employer]ING 6 mg dextrose 50 % solution 12.5 g 12.5 g, Intravenous, PRN, Starting on Daphnie 11/28/20 at 1817, Until 12/01/20 at 1340, Low blood sugar, If IV patent in patient with blood glucose of 50 or less, or Unconscious, Conscious but NPO or Unable to Swallow regardless of blood glucose, administer 1 dose of dextrose 50% solution. enoxaparin (LOVENOX) injection 40 mg 40 mg, Subcutaneous, EVERY 24 HOURS SCHEDULED (Daily), First dose on Daphnie 11/28/20 at 1400, Until Discontinued, Upon new order verification, pharmacy to adjust enoxaparin dose for creatinine clearance less than 30 mL/minIndications:Prophylaxis of Venous Thromboembolism Given 12/01/2020 9:09 AM MANAGER [employer] 40 mg Left Abdomen Given 11/30/2020 10:26 AM MANAGER [employer] 40 mg L eft Abdomen Given 11/29/2020 9:13 AM MANAGER [employer] 40 mg Le ft Abdomen glucagon injection SOLR 1 mg 1 mg, Intramuscular, PRN, Starting on Daphnie 11/28/20 at 1817, Until 12/01/20 at 1340, Low blood sugar, If patient has no intravenous access and blood glucose of 50 or less, or Unconscious, Conscious but NPO or Unable to Swallow regardless of blood glucose administer 1 dose of glucagon. Glucagon may cause vomiting. Position patient on the side. glucagon injection SOLR 1 mg 1 mg, Subcutaneous, PRN, Starting on Daphnie 11/28/20 at 1817, Until 12/01/20 at 1340, Low blood sugar, If patient has no intravenous access and blood glucose of 50 or less, or Unconscious, Conscious but NPO or Unable to Swallow regardless of blood glucose administer 1 dose of glucagon. Glucagon may cause vomiting. Position patient on the side. glucose (GLUTOSE) 40 % gel GEL 15 g 15 g, Oral, PRN, Starting on [facility] 11/28/20 at 1817, Until [place] 12/01/20 at 1340, Low blood sugar, Dose is based on glucose. 37.5 g tube = 15 GRAMS of GLUCOSE. For 15 GRAM GLUCOSE dose, give entire 37.5 g size tube. Administer 1 dose if patient is unable to take food, but conscious and able to swallow insulin glargine (LANTUS) 100 UNIT/ML injection 32 Units 32 Units, Subcutaneous, NIGHTLY, First dose on [facility] 11/28/20 at 2100, Until Discontinued Given 11/30/2020 9:00 PM [employer] 32 Units Left Abdomen Given 11/29/2020 9:35 PM [employer] 32 Units Ri ght Abdomen Given 11/28/2020 9:08 PM [employer] 32 Units Le ft Abdomen insulin lispro (HumaLOG) 100 UNIT/ML injection 10 Units 10 Units, Subcutaneous, 3 TIMES DAILY BEFORE MEALS, First dose on [facility] 11/28/20 at 1830, Until Discontinued Given 12/01/2020 9:09 AM [employer] 10 Units Left Abdomen Given 11/30/2020 5:39 PM [employer] 10 Units Le ft Abdomen Given 11/30/2020 1:18 PM [employer] 10 Units Le ft Abdomen insulin lispro (HumaLOG) 100 UNIT/ML injection 2-12 Units 2-12 Units, Subcutaneous, 4 TIMES DAILY WITH MEALS & NIGHTLY, First dose on [facility] 11/28/20 at 1830, Until Discontinued, MILD SLIDING SCALE If BS = 70-180, give no correction Insulin. ?? If BS = 181-200, give 2 Units. ?? If BS = 201-250, give 4 Units. ?? If BS = 251-300, give 6 Units. If BS = 301-350, give 8 Units. If BS = 351-400, give 10 Units. If BS is greater than 400, give 12 Units and call physician. Given 11/30/2020 1:18 PM [employer] 4 Units Left Abdomen Given 11/29/2020 9:35 PM [employer] 6 Units Le ft Abdomen Given 11/29/2020 5:58 PM [employer] 4 Units Le ft Abdomen iopamidol (ISOVUE-370) 76 % injection 100 mL 100 mL, Intravenous, ONCE, 1 dose, On [facility] 11/28/20 at 0930 Given 11/28/2020 9:22 AM [employer] 100 mL ketorolac (TORADOL) injection 15 mg 15 mg, Intravenous, ONCE, 1 dose, On [facility] 11/28/20 at 0830 Given 11/28/2020 8:27 AM [employer] 15 mg melatonin tablet 3 mg 3 mg, Oral, NIGHTLY, First dose on [facility] 11/28/20 at 2100, Until Discontinued Given 11/29/2020 9:35 PM [employer] 3 mg Given 11/28/2020 9:08 PM [employer] 3 mg ondansetron (ZOFRAN) injection 4 mg 4 mg, Intravenous, ONCE, 1 dose, On [facility] 11/28/20 at 0830 Given 11/28/2020 8:27 AM [employer] 4 mg ondansetron (ZOFRAN) injection 4 mg 4 mg, Intravenous, EVERY 6 HOURS PRN, Starting on [facility] 11/28/20 at 1335, Until 12/01/20 at 1340, Nausea - 1st line, 1. First Line Antiemetic. 2. Use Injection only if patient unable to tolerate oral medications. ondansetron (ZOFRAN-ODT) disintegrating tablet 4 mg 4 mg, Oral, EVERY 6 HOURS PRN, Starting on [facility] 11/28/20 at 1335, Until 12/01/20 at 1340, Nausea - 1st line, 1. First Line Antiemetic. 2. Use PO form unless unable to tolerate PO medications, then use Injection Given 11/29/2020 7:40 AM [employer] 4 mg Given 11/28/2020 4:33 PM [employer] 4 mg Remdesivir 100 mg in 0.9 % sodium chloride 270 mL Total Volume IVPB 100 mg, Intravenous, EVERY 24 HOURS, 4 doses, First dose on Wed11/29/20 at 1500, Last dose on Wed12/02/20 at 1500, Administer over 120 Minutes, After infusion is complete, flush with at least 30 mL of 0.9% sodium chloride., at 135 mL/hr New Bag 11/30/2020 4:35 PM [employer] 100 mg 135 mL/hr New Bag 11/29/2020 3:46 PM [employer] 100 mg 135 mL/hr Remdesivir 200 mg in 0.9 % sodium chloride 290 mL Total Volume IVPB 200 mg, Intravenous, ONCE, 1 dose, On [place] 11/28/20 at 1500, Administer over 120 Minutes, After infusion is complete, flush with at least 30 mL of 0.9% sodium chloride., at 145 mL/hr New Bag 11/28/2020 3:22 PM [employer] 200 mg 145 mL/hr senna (SENOKOT) tablet 8.6 mg 8.6 mg (1 Tablet), Oral, 2 TIMES DAILY PRN, Starting on [facility] 11/28/20 at 1336, Until 12/01/20 at 1340, Constipation - 1st lineIndications:Constipation traZODone (DESYREL) tablet 50 mg 50 mg, Oral, NIGHTLY PRN, Starting on 11/30/20 at 2124, Until 12/01/20 at 1340, Sleep Given 12/01/2020 1:23 AM [employer] 50 mg documented in this encounter Active and Recently Administered Medications Times are shown in [employer]. Scheduled Medication Order 11/29/2020 11/30/2020 12/01/2020 amLODIPine (NORVASC) tablet 2.5 mg 2.5 mg, Oral, DAILY, First dose on [facility] 11/28/20 at 1130, Until Discontinued 09 (Given - Provider: Mady Harper RN) 1026 (Given - Provider: Mady Harper RN) 0910 (Given - Provider: Mady Harper RN) azithromycin (ZITHROMAX) tablet 500 mg (CANCELED) 500 mg, Oral, DAILY, First dose on [place] 11/28/20 at 1400, Until Discontinued, Indications: Community Acquired Pneumonia 09 (Given - Provider: Mady Harper RN) cefTRIAXone (ROCEPHIN) injection 1 g (CANCELED) 1 g, Intravenous, EVERY 24 HOURS, First dose on [facility] 11/28/20 at 1400, Until Discontinued, Indications: Community Acquired Pneumonia 1546 (Given - Provider: Mady Harper RN) dexamethasone (DECADRON) injection 6 mg (CANCELED) 6 mg, Intravenous, DAILY, First dose on Wed11/29/20 at 0900, Until Discontinued 912 (Given - Provider: Mady Harper RN) dexamethasone (DECADRON) tablet 6 mg 6 mg, Oral, DAILY WITH BREAKFAST, First dose on [facility] 11/30/20 at 0800, Until Discontinued 1026 (Given - Provider: Mady Harper RN) 0910 (Given - Provider: Mady Harper RN) enoxaparin (LOVENOX) injection 40 mg 40 mg, Subcutaneous, EVERY 24 HOURS SCHEDULED (Daily), First dose on [facility] 11/28/20 at 1400, Until Discontinued, Upon new order verification, pharmacy to adjust enoxaparin dose for creatinine clearance less than 30 mL/min 09 (Given - Provider: Mady Harper RN) 1026 (Given - Provider: Mady Harper RN) 0909 (Given - Provider: Mady Harper RN) insulin glargine (LANTUS) 100 UNIT/ML injection 32 Units 32 Units, Subcutaneous, NIGHTLY, First dose on [place] 11/28/20 at 2100, Until Discontinued 2134 (Given - Provider: Tay Carlson RN) 2100 (Given - Provider: Surya Mota RN - Comment: bushra Vargas RN) insulin lispro (HumaLOG) 100 UNIT/ML injection 10 Units 10 Units, Subcutaneous, 3 TIMES DAILY BEFORE MEALS, First dose on [place] 11/28/20 at 1830, Until Discontinued 912 (Given - Provider: Mady Harper RN)1229 (Given - Provider: Mady Harper RN)1758 (Given - Provider: Mady Harper RN) 1026 (Given - Provider: Mady Harper RN)1318 (Given - Provider: Mady Harper RN)1739 (Given - Provider: Mady Harper RN) 0909 (Given - Provider: Mady Harper RN) insulin lispro (HumaLOG) 100 UNIT/ML injection 2-12 Units 2-12 Units, Subcutaneous, 4 TIMES DAILY WITH MEALS & NIGHTLY, First dose on [place] 11/28/20 at 1830, Until Discontinued, MILD SLIDING SCALE If BS = 70-180, give no correction Insulin. ?? If BS = 181-200, give 2 Units. ?? If BS = 201-250, give 4 Units. ?? If BS = 251-300, give 6 Units. If BS = 301-350, give 8 Units. If BS = 351-400, give 10 Units. If BS is greater than 400, give 12 Units and call physician. 0900 (Not Given - Provider: Mady Harper RN - Reason: Order parameters not met)1300 (Not Given - Provider: Mady Harper RN - Reason: Order parameters not met)1758 (Given - Provider: Mady Harper RN)2135 (Given - Provider: Tay Carlson RN) 0900 (Not Given - Provider: Mady Harper RN - Reason: Order parameters not met)1318 (Given - Provider: Mady Harper RN)1700 (Not Given - Provider: Mady Harper RN - Reason: Order parameters not met)2100 (Not Given - Provider: Surya Mota RN - Reason: Order parameters not met) 0900 (Not Given - Provider: Mady Harper RN - Reason: Order parameters not met) melatonin tablet 3 mg 3 mg, Oral, NIGHTLY, First dose on [facility] 11/28/20 at 2100, Until Discontinued 2134 (Given - Provider: Tay Carlson RN) 2099 (Not Given - Provider: Surya Mota RN - Reason: Patient/family refused) Remdesivir 100 mg in 0.9 % sodium chloride 270 mL Total Volume IVPB 100 mg, Intravenous, EVERY 24 HOURS, 4 doses, First dose on Wed11/29/20 at 1500, Last dose on Wed12/02/20 at 1500, Administer over 120 Minutes, After infusion is complete, flush with at least 30 mL of 0.9% sodium chloride., at 135 mL/hr 1546 (New Bag - Provider: Mady Harper RN)1746 (Stopped - Provider: Mady Harper RN) 1635 (New Bag - Provider: Mady Harper RN)1835 (Stopped - Provider: Surya Mota RN) Continuous Medication Order 11/29/2020 11/30/2020 12/01/2020 0.9 % sodium chloride solution (CANCELED) at 100 mL/hr, Intravenous, CONTINUOUS, Starting on [place] 11/28/20 at 1400, Until 12/01/20 at 0756 0038 (New Bag - Provider: Tay Carlson RN)1544 (Stopped - Provider: Mady Harper RN)1545 (New Bag - Provider: Mady Harper, SRINIVASAN) 1032 (Stopped - Provider: Mady Harper RN)1033 (New Bag - Provider: Mady Harper RN) 0123 (Stopped - Provider: Surya Mota RN) PRN Medication Order 11/29/2020 11/30/2020 12/01/2020 acetaminophen (TYLENOL) suppository 650 mg(Linked Group 1) 650 mg, Rectal, EVERY 4 HOURS PRN, Starting on [place] 11/28/20 at 1335, Until 12/01/20 at 1340, Mild pain or more severe pain if patient requests, Fever, If patient is taking oral intake without complications and both PO/ND orders are active, administer through the oral route. 0738 (See Alternative - Provider: Mady Harper RN) acetaminophen (TYLENOL) tablet 650 mg(Linked Group 1) 650 mg, Oral, EVERY 4 HOURS PRN, Starting on [place] 11/28/20 at 1335, Until 12/01/20 at 1340, Mild pain or more severe pain if patient requests, Fever, If patient is taking oral intake without complications and both PO/ND orders are active, administer through the oral route. 0738 (Given - Provider: Mady Harper RN) dextrose 50 % solution 12.5 g(Linked Group 2) 12.5 g, Intravenous, PRN, Starting on [place] 11/28/20 at 1817, Until 12/01/20 at 1340, Low blood sugar, If IV patent in patient with blood glucose of 50 or less, or Unconscious, Conscious but NPO or Unable to Swallow regardless of blood glucose, administer 1 dose of dextrose 50% solution. glucagon injection SOLR 1 mg(Linked Group 2) 1 mg, Intramuscular, PRN, Starting on [place] 11/28/20 at 1817, Until 12/01/20 at 1340, Low blood sugar, If patient has no intravenous access and blood glucose of 50 or less, or Unconscious, Conscious but NPO or Unable to Swallow regardless of blood glucose administer 1 dose of glucagon. Glucagon may cause vomiting. Position patient on the side. glucagon injection SOLR 1 mg(Linked Group 2) 1 mg, Subcutaneous, PRN, Starting on [facility] 11/28/20 at 1817, Until Sun 2 at 1340, Low blood sugar, If patient has no intravenous access and blood glucose of 50 or less, or Unconscious, Conscious but NPO or Unable to Swallow regardless of blood glucose administer 1 dose of glucagon. Glucagon may cause vomiting. Position patient on the side. glucose (GLUTOSE) 40 % gel GEL 15 g(Linked Group 2) 15 g, Oral, PRN, Starting on [facility] 11/28/20 at 1817, Until 12/01/20 at 1340, Low blood sugar, Dose is based on glucose. 37.5 g tube = 15 GRAMS of GLUCOSE. For 15 GRAM GLUCOSE dose, give entire 37.5 g size tube. Administer 1 dose if patient is unable to take food, but conscious and able to swallow ondansetron (ZOFRAN) injection 4 mg(Linked Group 3) 4 mg, Intravenous, EVERY 6 HOURS PRN, Starting on [facility] 11/28/20 at 1335, Until 12/01/20 at 1340, Nausea - 1st line, 1. First Line Antiemetic. 2. Use Injection only if patient unable to tolerate oral medications. 0740 (See Alternative - Provider: Mady Harper RN) ondansetron (ZOFRAN-ODT) disintegrating tablet 4 mg(Linked Group 3) 4 mg, Oral, EVERY 6 HOURS PRN, Starting on [facility] 11/28/20 at 1335, Until 12/01/20 at 1340, Nausea - 1st line, 1. First Line Antiemetic. 2. Use PO form unless unable to tolerate PO medications, then use Injection 0740 (Given - Provider: Mady Harper RN) senna (SENOKOT) tablet 8.6 mg 8.6 mg (1 Tablet), Oral, 2 TIMES DAILY PRN, Starting on [facility] 11/28/20 at 1336, Until 12/01/20 at 1340, Constipation - 1st line traZODone (DESYREL) tablet 50 mg 50 mg, Oral, NIGHTLY PRN, Starting on 11/30/20 at 2124, Until 12/01/20 at 1340, Sleep 0123 (Given - Provid er: Surya Mota RN) Linked Groups Order Group 1: acetaminophen (TYLENOL) tablet 650 mgJump to med 650 mg, Oral, EVERY 4 HOURS PRN, Starting on [facility] 11/28/20 at 1335, Until 12/01/20 at 1340, Mild pain or more severe pain if patient requests, Fever, If patient is taking oral intake without complications and both PO/ND orders are active, administer through the oral route. Or acetaminophen (TYLENOL) suppository 650 mgJump to med 650 mg, Rectal, EVERY 4 HOURS PRN, Starting on [facility] 11/28/20 at 1335, Until 12/01/20 at 1340, Mild pain or more severe pain if patient requests, Fever, If patient is taking oral intake without complications and both PO/ND orders are active, administer through the oral route. Group 2: glucose (GLUTOSE) 40 % gel GEL 15 gJump to med 15 g, Oral, PRN, Starting on [facility] 11/28/20 at 1817, Until 12/01/20 at 1340, Low blood sugar, Dose is based on glucose. 37.5 g tube = 15 GRAMS of GLUCOSE. For 15 GRAM GLUCOSE dose, give entire 37.5 g size tube. Administer 1 dose if patient is unable to take food, but conscious and able to swallow Or dextrose 50 % solution 12.5 gJump to med 12.5 g, Intravenous, PRN, Starting on [facility] 11/28/20 at 1817, Until 12/01/20 at 1340, Low blood sugar, If IV patent in patient with blood glucose of 50 or less, or Unconscious, Conscious but NPO or Unable to Swallow regardless of blood glucose, administer 1 dose of dextrose 50% solution. Or glucagon injection SOLR 1 mgJump to med 1 mg, Intramuscular, PRN, Starting on [facility] 11/28/20 at 1817, Until 12/01/20 at 1340, Low blood sugar, If patient has no intravenous access and blood glucose of 50 or less, or Unconscious, Conscious but NPO or Unable to Swallow regardless of blood glucose administer 1 dose of glucagon. Glucagon may cause vomiting. Position patient on the side. Or glucagon injection SOLR 1 mgJump to med 1 mg, Subcutaneous, PRN, Starting on [facility] 11/28/20 at 1817, Until 12/01/20 at 1340, Low blood sugar, If patient has no intravenous access and blood glucose of 50 or less, or Unconscious, Conscious but NPO or Unable to Swallow regardless of blood glucose administer 1 dose of glucagon. Glucagon may cause vomiting. Position patient on the side. Group 3: ondansetron (ZOFRAN-ODT) disintegrating tablet 4 mgJump to med 4 mg, Oral, EVERY 6 HOURS PRN, Starting on [facility] 11/28/20 at 1335, Until 12/01/20 at 1340, Nausea - 1st line, 1. First Line Antiemetic. 2. Use PO form unless unable to tolerate PO medications, then use Injection Or ondansetron (ZOFRAN) injection 4 mgJump to med 4 mg, Intravenous, EVERY 6 HOURS PRN, Starting on [facility] 11/28/20 at 1335, Until 12/01/20 at 1340, Nausea - 1st line, 1. First Line Antiemetic. 2. Use Injection only if patient unable to tolerate oral medications. documented in this encounter Additional Health Concerns Infection Onset Date Last Indicated Resolved Time COVID - 19 Confirmed 11/28/2020 11/28/2020 021 12:18 AM [employer] documented as of this encounter Care Teams [employer] Relationship Specialty Start Date End Date Kvein Velásquez MD [address] [place] [address] PCP - General Family Medicine 11/28/20 documented as of this encounter
--- OUTSIDE RECORDS SUMMARY | 2024-10-23 02:08 | XMS_ITS | Clinical Summary ---
Author Organization [facility] Address [address] [place] [address] Phone Care Team Providers Care Customer Service Correspondence Clerk Name Role Phone MARIUM العلي, EROS Lucas Unavailable [phone] Reason for Visit and Chief Complaint The Chief Complaint is: 3 month med check on Clobetasol Problems Includes: Problems addressed during this encounter and other active Problems Current Visit Onset Date Resolved Date Provider Conditio n Status Lichen Sclerosus Et Atrophicus 08/05/2020 PABLO TA RN [facility] Active Last Documented On 08/05/2020 2:01PM ; [facility] Note: Unchanged Past Visits Onset Date Resolved Date Provider Condition Status Breast Neoplasm Malignant 12/26/2020 PABLO TA RN [place] Active Last Documented On 12/26/2020 12:54PM ; [facility] Note: invasive ductal carcinoma 12/23/20 b x Diabetes Mellitus Type 2 08/05/2020 PABLO TA RN [place] Active Last Documented On 0 2:01PM ; [facility] Hypertension Systemic 08/05/2020 PABLO TA RN [place] Active Last Documented On 0 2:01PM ; [facility] Plan of Treatment Instructions to patient Instructions for patient : K eep the area around the vulva dry. Allow the area to have exposure to air. Avoid irritants such as fabric softeners and perfumed soaps.~ Last Documented On 0 3:32PM ; [facility] Assessments Includes: Assessments from this encounter Findings - Lichen sclerosus et atrophicus resolving per pt. report - Last Documented On 11/13/2019 3:35PM ; [facility] Instructions Includes: Instructions from this encounter Instructions to patient Instructions for patient : K eep the area around the vulva dry. Allow the area to have exposure to air. Avoid irritants such as fabric softeners and perfumed soaps.~ Last Documented On 0 3:32PM ; [facility] Medical Equipment - Implanted Devices Includes: Current Devices No Medical Equipment Recorded Medications Includes: Medications discussed during this encounter and other current Medications New / Renewed during this visit PABLO MARQUEZ BC on 11/13/2019 Clobetasol Propionate 0.05% External Cream Provider: PABLO HOPE P BC 30 day supply: 1 tube, 4 refills Diagnosis: Lichen sclerosus et atrophicus as directed APPLY BID X 1 WE EKS THEN 1 TIME DAILY X 1 WEEK, THEN 2 TIMES WEEKLY Pharmacy: [facility] [id number] , [place], [id number] - Last Documented On 0 1:55PM By PABLO WOODRUFF ; [facility] Current Medications (continue as prescribed) Lisinopril-hydroCHLOROthiazide 20-12.5 MG Oral Tablet 06/21/2019 Provider: Diagnosis: TAKE 2 TABLETS ONCE DAILY Last Documented On 06/21/2019 3:31PM By Rose Ny MA ; [facility] Turmeric 500 MG Oral Capsule 06/21/2019 Provider: Diagnosis: TAKE TWO TABLETS TWICE A DAY Last Documented On 06/21/2019 3:32PM By Rose Ny MA ; [facility] Meloxicam 15 MG Oral Tablet 06/21/2019 Provider: Diagnosis: TAKE ONE TABLET ONCE A DAY Last Documented On 06/21/2019 3:32PM By Rose Ny MA ; [facility] Indomethacin 25 MG Oral Capsule 06/21/2019 Provider: Diagnosis: TAKE ONE CAPSULE 3 TIMES A DAY NEEDED FOR KVNG N Last Documented On 06/21/2019 3:31PM By Rose Ny MA ; [facility] glipiZIDE 5 MG Oral Tablet 06/21/2019 Provider: Diagnosis: TAKE ONE TABLET DAILY Last Documented On 06/21/2019 3:30PM By Rose Ny MA ; [facility] Fluticasone Propionate (Inha l) 50 MCG/BLIST Inhalation Aerosol Powder Breath Activated 06/21/2019 Provider: Diagnosis: INHALE ONE PUFF TWO TIMES A DAY Last Documented On 06/21/2019 3:30PM By Rose Ny MA ; [facility] Cyanocobalamin 500 MCG Oral Tablet 06/21/2019 Provid er: Diagnosis: TAKE ONCE DAILY Last Documented On 06/21/2019 3:28PM By Rose Ny MA ; [facility] cloNIDine HCl 0.1 MG Oral Tablet 06/21/2019 Provider : Diagnosis: TAKE ONE TABLET TWICE A DAY Last Documented On 06/21/2019 3:27PM By Rose Ny MA ; [facility] amLODIPine Besylate 5 MG Oral Tablet 06/21/2019 Prov ider: Diagnosis: TAKE ONE TABLET DAILY Last Documented On 06/21/2019 3:25PM By Rose Ny MA ; [facility] Past Medications on file Clobetasol Propionate 0.05% External Cream 10/02/2021 - 10/22/2021 Provider: PABLO MARQUEZ Diagnosis: Lichen sclerosus et atrophicus DIRECTED, APPLY 2 TIMES W [id number] no further refills authorized pt needs annual exam Last Documented On 1 8:07AM By PABLO KNAPP ; [facility] Sulfamethoxazole-Trimethopri m 800-160 MG Oral Tablet 08/05/2020 - 08/19/2020 Provider: PABLO TA RN [place] Diagnosis: Furuncle, unspecified One tablet twice a day ONE TAB 2 TIMES A DAY WIT H FOOD Last Documented On 0 2:05PM By PABLO WOODRUFF ; [facility] Fluconazole 150 MG Oral Tablet 08/05/2020 - 08/09/2020 Provider: PABLO TA RN [place] Diagnosis: Acute vulvitis 1 daily Pt. is to take 1 day 3 and 1 day 7 of antibiotics Last Documented On 0 2:05PM By PABLO WOODRUFF ; [facility] Clobetasol Propionate 0.05% External Cream 08/08/2019 - 11/06/2019 Provider: PABLO MARQUEZ Diagnosis: Lichen sclerosus et atrophicus as directed apply two times weekly after BID x 1 week then qd use x 1 week Last Documented On 9 11:19AM By PABLO WOODRUFF ; [facility] Clindamycin HCl 300 MG Oral Capsule 07/17/2019 - 07/24/2019 Provider: PABLO MARQUEZ Diagnosis: Acute vulvitis One tablet twice a day Last Documented On 9 9:57AM By PABLO WOODRUFF ; [facility] Sulfamethoxazole-Trimethopri m 800-160 MG Oral Tablet 07/11/2019 - 07/21/2019 Provider: PABLO MARQUEZ Diagnosis: Acute vulvitis One tablet twice a day ONE TAB 2 TIMES A DAY WIT H FOOD Last Documented On 9 4:52PM By PABLO KNAPP ; [facility] Naproxen 500 MG Oral Tablet 07/11/2019 - 07/18/2019 Provider: PABLO MARQUEZ Diagnosis: Acute vulvitis One tablet twice a day ONE T AB TWICE A DAY WITH FOOD DON'T EXCEED 2 TABS IN 24 HOURS Last Documented On 9 5:24PM By PABLO KNAPP ; [facility] Terazol 7 0.4% Vaginal Cream 07/11/2019 - 07/25/2019 Provider: PABLO MARQUEZ Diagnosis: Acute vulvitis as directed 1 KRISH IN VAGINA EVERY NIGHT X 14 apply bid to external genitalia Last Documented On 9 4:52PM By PABLO WOODRUFF ; [facility] Triamcinolone Acetonide 0.1% External Cream 06/21/2019 - 06/28/2019 Provider: PABLO MARQUEZ Diagnosis: Acute vulvitis as directed PLEASE DISPENSE 80 GM USE 50/50 MIX W/NYSTATIN CREAM AND APPLY TO AFFECTED AREAS 3 TIMES A DAY DIRECTED Last Documented On 9 5:00PM By PABLO WOODRUFF ; [facility] Nystatin 240086 UNIT/GM External Cream 06/21/2019 - 07/12/2019 Provider: PABLO MARQUEZ Diagnosis: Acute vulvitis as directed 50/50 mix with t riamcinolone cream apply THREE TIMES A DAY TO AFFECTED AREAS Last Documented On 9 5:00PM By PABLO WOODRUFF ; [facility] Sulfamethoxazole-Trimethopri m 800-160 MG Oral Tablet 06/21/2019 - 06/28/2019 Provider: PABLO MARQUEZ BC Diagnosis: Furuncle, unspecified One tablet twice a day ONE TAB 2 TIMES A DAY WIT H FOOD Last Documented On 9 5:00PM By PABLO WOODRUFF ; [facility] Terconazole 0.4% Vaginal Cream 06/21/2019 - 07/12/2019 Provider: PABLO MARQUEZ BC Diagnosis: Acute vaginitis as directed one krish in vagin a every night x 7 apply bid to perineum Last Documented On 9 5:00PM By PABLO WOODRUFF ; [facility] Medications Administered Includes: Administered Medications from this encounter No Administered Medications Recorded Vital Signs Includes: Vital Signs from this encounter Vital Name 11/13/2019 03:22P 11/13/2019 02: 51P Blood Pressure Sitting (mmHg) 120/76 Height (in) 61 62 Weight (lb) 235 Body Mass Index (kg/m2) 44.4 Body Surface Area (m2) 2.0 Last Documented: On 11/13/2019 3:23PM ; [facility] On 11/13/2019 2:51PM ; [facility] Results Includes: Results discussed during this encounter No Results Recorded For Specified Dates History of Present Illness Includes: History of Present Illness from this encounter ALINE CHAKRABORTY is a 54 year old female. The patient presents with the following symptoms: - No genital lesion - No vulvar itching or burning - No vaginal itching or burning - No rash on the vulva Social History Description Last Updated Activities 08/05/2020 Last Documented On 0 2:51PM ; [facility] Alcohol use occa 08/05/2020 Last Documented On 0 2:51PM ; [facility] Alcohol use: 2 drinks or less per day oc c 08/05/2020 Last Documented On 0 2:51PM ; [facility] Education history 08/05/2020 Last Documented On 0 2:51PM ; [facility] Not using drugs 08/05/2020 Last Documented On 0 2:51PM ; [facility] 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[employer] mom recently from brain cancer 08/05/2020 Last Documented On 0 2:51PM ; [facility] Sexually active 1 partner 08/05/2020 Last Documented On 0 2:51PM ; [facility] Single partner x 6 yrs 08/05/2020 Last Documented On 0 2:51PM ; [facility] Smoking status : Never smoker 08/05/2020 Last Documented On 0 2:51PM ; [facility] Procedures and Surgical History Includes: Procedures from this encounter Procedures Code Diagnosis Performing Provider Service L ocation Service Date education and instructions Last Documented On 0 3:33PM ; [facility] Clinical summary provided to patient Last Documented On 0 3:33PM ; [facility] Surgical History Last Updated History of hysterectomy 08/08/2019 Last Documented On 0 2:50PM ; [facility] History of vaginal hysterect albina PARTIAL d/t menorrhagia ovaries intact bilaterally 06/21/2019 Last Documented On 0 2:50PM ; [facility] Medical History Includes: Medical History addressed during this encounter Description Last Updated Sexually active with 1 partners in the l ast year 08/08/2019 Last Documented On 0 2:50PM ; [facility] History of asthma 08/08/2019 Last Documented On 0 2:50PM ; [facility] History of benign essential hypertension 08/08/2019 Last Documented On 0 2:50PM ; [facility] History of type 1 diabetes mellitus 07/25 Last Documented On 0 2:50PM ; [facility] LMP: 200808/08/2019 Last Documented On 0 2:50PM ; [facility] Sexually active 08/08/2019 Last Documented On 0 2:50PM ; [facility] History of a DXA of the lateral lumbar s pine was performed 07/04/2019 08/08/2019 Last Documented On 0 2:50PM ; [facility] History of complete colonoscopy 2016 Last Documented On 0 2:50PM ; [facility] History of Pap smear done 07/12/201907/25 Last Documented On 0 2:50PM ; [facility] History of screening mammogram was perfo rmed 05/09/2019 08/08/2019 Last Documented On 0 2:50PM ; [facility] Last pap smear date 06/21/2019 07/11/2019 Last Documented On 0 2:50PM ; [facility] A colonoscopy was performed 2017 [facility] Last Documented On 0 2:50PM ; [facility] Result: normal 06/21/2019 Last Documented On 0 2:50PM ; [facility] High blood pressure ~Diabete s- herself and parents ~Kindey failure- father ~Brain cancer- mother ~Infertility 06/21/2019 Last Documented On 0 2:50PM ; [facility] 1 06/21/2019 Last Documented On 0 2:50PM ; [facility] Last mammogram date: 05/09/2019 9 Last Documented On 0 2:50PM ; [facility] Para 1 06/21/2019 Last Documented On 0 2:50PM ; [facility] Family History Includes: Family History addressed during this encounter Description Last Updated Maternal history of hypertension both pa rtents 08/08/2019 Last Documented On 0 2:50PM ; [facility] Maternal history of pure hypercholestero lemia both parents 08/08/2019 Last Documented On 0 2:50PM ; [facility] Paternal history of diabetes mellitus agustina th parents 08/08/2019 Last Documented On 0 2:50PM ; [facility] Review of Systems Includes: Review of Systems from this encounter Systemic: No fever and no chills. Head: No headache. Cardiovascular: No chest pain or discomfort. Pulmonary: No dyspnea. Gastrointestinal: No nausea, no vomiting, and no abdominal pain. Mental Status Includes: Mental Status from this encounter No Mental Status Recorded Functional Status Includes: Functional Status from this encounter No Functional Status Recorded Physical Exam Includes: Physical Exam from this encounter Allergies Includes: Active Allergies No Known Allergies Encounters Encounter Provider Location Date Check-In Time Check- Out Time Diagnosis MED CHECK PABLO TA RN NP [facility] 0 2:26PM 3:31PM Lichen Sclerosus Et Atrophicus Insurance Includes: Active Insurance Policies Plan Name Member ID Group # Subscriber Relationship Effect gilberto Dates 1 - [facility] [id number] KEVIN CHAKRABORTY Self Clinical Notes Includes: Clinical Notes from this encounter No Clinical Notes Recorded
--- OUTSIDE RECORDS SUMMARY | 2024-10-23 02:08 | XMS_ITS | Clinical Summary ---
Author Organization [facility] Address [address] [place] [address] Phone Care Team Providers Care Shop Tailor Name Role Phone MARIUM العلي, EROS Lucas Unavailable [phone] Reason for Visit and Chief Complaint CHART UPDATE Problems Includes: Problems addressed during this encounter and other active Problems All Visits Onset Date Resolved Date Provider Condition S tatus Breast Neoplasm Malignant 12/26/2020 PABLO TA RN [facility] Active Last Documented On 12/26/2020 12:54PM ; [facility] Note: invasive ductal carcinoma 12/23/20 b x Lichen Sclerosus Et Atrophicus 08/05/2020 PABLO TA RN [place] Active Last Documented On 08/05/2020 2:01PM ; [facility] Note: Unchanged Diabetes Mellitus Type 2 08/05/2020 PABLO TA RN [place] Active Last Documented On 0 2:01PM ; [facility] Hypertension Systemic 08/05/2020 PABLO TA RN [place] Active Last Documented On 0 2:01PM ; [facility] Plan of Treatment No Plan of [...] By Rose Ny MA ; [facility] Turmeric 500 MG Oral Capsule 06/21/2019 Provider: Diagnosis: TAKE TWO TABLETS TWICE A DAY Last Documented On 06/21/2019 3:32PM By Rose Ny MA ; [facility] Meloxicam 15 MG Oral Tablet 06/21/2019 Provider: Diagnosis: TAKE ONE TABLET ONCE A DAY Last Documented On 06/21/2019 3:32PM By Rose Ny MA ; [facility] Indomethacin 25 MG Oral Capsule 06/21/2019 Provider: Diagnosis: TAKE ONE CAPSULE 3 TIMES A DAY NEEDED FOR KVNG N Last Documented On 06/21/2019 3:31PM By Rose Ny MA ; [facility] glipiZIDE 5 MG Oral Tablet 06/21/2019 Provider: Diagnosis: TAKE ONE TABLET DAILY Last Documented On 06/21/2019 3:30PM By Rose Ny MA ; [facility] Fluticasone Propionate (Inha l) 50 MCG/BLIST Inhalation Aerosol Powder Breath Activated 06/21/2019 Provider: Diagnosis: INHALE ONE PUFF TWO TIMES A DAY Last Documented On 06/21/2019 3:30PM By Rose Ny MA ; [facility] Cyanocobalamin 500 MCG Oral Tablet 06/21/2019 Provid er: Diagnosis: TAKE ONCE DAILY Last Documented On 06/21/2019 3:28PM By Rose Ny MA ; [facility] cloNIDine HCl 0.1 MG Oral Tablet 06/21/2019 Provider : Diagnosis: TAKE ONE TABLET TWICE A DAY Last Documented On 06/21/2019 3:27PM By Rose Ny MA ; [facility] amLODIPine Besylate 5 MG Oral Tablet 06/21/2019 Prov ider: Diagnosis: TAKE ONE TABLET DAILY Last Documented On 06/21/2019 3:25PM By Rose Ny MA ; [facility] Medications Administered Includes: Administered Medications from this encounter No Administered Medications Recorded Results Includes: Results discussed during this encounter No Results Recorded For Specified Dates History of Present Illness Includes: History of Present Illness from this encounter No History of Present Illness Recorded Social History No Social History Recorded - Smoking Status Unknown Medical History Includes: Medical History addressed during this encounter No Medical History Recorded Family History Includes: Family History addressed during this encounter No Family History Recorded Review of Systems Includes: Review of Systems [...] Time Diagnosis CHART UPDATE PABLO TA RN [facility] 08/07/2020 3:29PM 11:59PM Insurance Includes: Active Insurance Policies Plan Name Member ID Group # Subscriber Relationship Effect gilberto Dates 1 - [facility] [id number] KEVIN CHAKRABORTY Self Clinical Notes Includes: Clinical Notes from this encounter No Clinical Notes Recorded
--- OUTSIDE RECORDS SUMMARY | 2024-10-23 02:08 | XMS_ITS | Clinical Summary ---
Author Organization [facility] Address [address] [place] [address] Care Team Providers Care Dry Plasterer Helper Name Role Phone Unavailable Primary Care Provider Unavailabl e Source Comments [facility],non-owned Affiliates and Associated Physician Practices is amultiple site organization consisting of ambulatory clinics and hospital sitesin [place], [place], [place] and [place]. This disclosure is being madepursuant to the Care Everywhere program and may not contain all information available regarding this patient. Last updated 18.[facility] [employer] Allergies No known active allergies Social History Tobacco Use Types Packs/Day Years Used Date Smoking Tobacco: Never Alcohol Use Standard Drinks/Week Comments Yes 0 (1 standard drink = 0.6 oz pur e alcohol) occationally Sex and Gender Information Value Date Recorded Sex Assigned at Not on file Gender Identity Not on file Sexual Orientation Not on file Plan of Treatment Health Maintenance Due Date Last Done Comments COLOGUARD (AGES 45-75) - COL ON CA SCREENING 1963 COLON MONITORING 1963 COLONOSCOPY - COLON CA SCREENING 1963 CT COLONOGRAPHY - COLON CA SCREENING 1963 Colorectal Cancer Screening 1963 FIT - COLON CA SCREENING 1963 FLEX SIG - COLON CA SCREENING 1963 LIPID TESTING 1963 MAMMOGRAM 1963 HIV SCREENING 1978 HEPATITIS C SCREENING 09/07/1981 DTAP/TDAP/TD VACCINES (1 - Tdap) 1982 ZOSTER VACCINE (1 of 2) 2013 PAP SMEAR 04/17/2014 04/17/2011 (Previously completed) DEPRESSION SCREENING 10/25/2023 COVID-19 VACCINE (2023-2 5 season) 2024 INFLUENZA VACCINE (#1) 2024 Respiratory Syncytial Virus (RSV) Vaccine Pt: or over 60 yrs (1 - 1-dose 75+ series) 2038 HEPATITIS B VACCINE Aged Out No longe r eligible based on patient's age to complete this topic HIB VACCINE Aged Out No longer eligi ble based on patient's age to complete this topic HPV VACCINE Aged Out No longer eligi ble based on patient's age to complete this topic MENINGOCOCCAL VACCINE Aged Out No camryn duong eligible based on patient's age to complete this topic PNEUMOCOCCAL VACCINE Aged Out No long er eligible based on patient's age to complete this topic
--- OUTSIDE RECORDS SUMMARY | 2024-10-23 02:08 | XMS_ITS | Encounter Summary ---
Author Organization [facility] Address [address] [place] [address] Phone Care Team Providers Care Administrative Assistant Receptionist Name Role Phone Rosa Shi MD Primary Care Provider [phone] Reason for Visit * Reason Onset Date Comments COVID-19 12/04/2020 Encounter Details Date Type Department Care Team (Latest Contact Info) Description 12/04/2020 [facility] [address] [place] [address] Abel Alvarez, BAR HELPER, RUG REPAIRER [address] [place] [address] COVID-19 virus infection (Primary Dx) Social History Tobacco Use Types [...] Coronavirus / COVID-19? Yes 11/28/2020 7:05 AM TAR DISTILLATION SUPERVISOR documented as of this encounter Progress Notes * Abel Alvarez APN, CNS - 12/04/2020 8:46 AM CST The patient was contacted regarding the recent Covid at Home referral. After chart review and patient discussion, the referral was declined for the following reason: Symptoms improved. Will follow with PCP . DISTILLATION SUPERVISOR documented in this encounter Plan of Treatment Not on file documented as of this encounter Visit Diagnoses Diagnosis COVID-19 virus infection- Primary documented in this encounter Additional Health Concerns Infection Onset Date Last Indicated Resolved Time COVID - 19 Confirmed 11/28/2020 11/28/2020 021 12:18 AM TAR DISTILLATION SUPERVISOR documented as of this encounter Care Teams Administrative Assistant Receptionist Relationship Specialty Start Date End Date Rosa Shi MD [address] [place] [address] PCP - General Family Medicine 11/28/20 documented as of this encounter
--- OUTSIDE RECORDS SUMMARY | 2024-10-23 02:08 | XMS_ITS | Clinical Summary ---
Author Organization [facility] Address [address] [place] [address] Phone Care Team Providers Care Heel Edge Inker Machine Name Role Phone EROS CAUSEY MD Unavailable [phone] Reason for Visit and Chief Complaint gynecologic annual exam - The Chief Complaint is: Annual Exam Problems Includes: Problems addressed during this encounter and other active Problems Current Visit Onset Date Resolved Date Provider Conditio n Status Lichen Sclerosus Et Atrophicus 08/05/2020 PABLO TA RN [facility] BC Active Last Documented On 08/05/2020 2:01PM ; [facility] Note: Unchanged Diabetes Mellitus Type 2 08/05/2020 PABLO TA RN [place] BC Active Last Documented On 0 2:01PM ; [facility] Hypertension Systemic 08/05/2020 PABLO TA RN [place] Active Last Documented On 0 2:01PM ; [facility] Past Visits Onset Date Resolved Date Provider Condition Status Breast Neoplasm Malignant 12/26/2020 PABLO TA RN [place] BC Active Last Documented On 12/26/2020 12:54PM ; [facility] Note: invasive ductal carcinoma 12/23/20 b x Plan of Treatment - Weight loss diet - Last Documented On 08/05/2020 2:06PM ; [facility] - Clinical summary provided to patient - Last Documented On 08/05/2020 2:06PM ; [facility] PT TO CALL WITH ANY CHANGE IN STATUS ALL QUESTIONS ANSWERED WITH UNDERSTANDING VERBALIZED BY PT. - Last Documented On 08/05/2020 2:06PM ; [facility] Instructions to patient Instructed to call if excess gilberto bleeding or abdominal/pelvic pain Last Documented On 0 1:37PM ; [facility] Instructions For Patient: Mo nthly Self Breast Exam Last Documented On 0 1:37PM ; [facility] Recommend diet and exercise at least 30 min three times per week Last Documented On 0 1:37PM ; [facility] Education and Decision Aids were provided during visit for: Patient Education: Daily franny cium and vitamin D Last Documented On 0 1:37PM ; [facility] Assessments Includes: Assessments from this encounter Findings - Routine gynecological exam with abnormal findings - Last Documented On 08/05/2020 2:06PM ; [facility] - Lichen sclerosus et atrophicus - Last Documented On 08/05/2020 2:06PM ; [facility] Instructions Includes: Instructions from this encounter Instructions to patient Instructed to call if excess gilberto bleeding or abdominal/pelvic pain Last Documented On 0 1:37PM ; [facility] Instructions For Patient: Mo nthly Self Breast Exam Last Documented On 0 1:37PM ; [facility] Recommend diet and exercise at least 30 min three times per week Last Documented On 0 1:37PM ; [facility] Education and Decision Aids were provided during visit for: Patient Education: Daily franny cium and vitamin D Last Documented On 0 1:37PM ; [facility] Medical Equipment - Implanted Devices Includes: Current Devices No Medical Equipment Recorded Medications Includes: Medications discussed during this encounter and other current Medications New / Renewed during this visit PABLO MARQUEZ on 08/05/2020 Clobetasol Propionate 0.05% External Cream Provider: PABLO TA RN Melanie [facility] 30 day supply: 1 tube, 7 refills Diagnosis: Lichen sclerosus et atrophicus as directed APPLY 3 times we ekly to ext. genitalia Pharmacy: [facility] [place] - [address] , [place], [address] - Last Documented On 1 8:07AM By PABLO MARQUEZ- ; [facility] Sulfamethoxazole-Trimethopri m 800-160 MG Oral Tablet Provider: PABLO MARQUEZ 7 day supply: 14 tablet, 1 refills Diagnosis: Furuncle, unspecified One tablet twice a day ONE T AB 2 TIMES A DAY WITH FOOD Pharmacy: [facility] [place] - [address] [place] [address] , [place], [address] - Last Documented On 0 2:05PM By PABLO WOODRUFF ; [facility] Fluconazole 150 MG Oral Tablet Provider: PABLO TA RN N [facility] 2 day supply: 2 tablet, 1 refills Diagnosis: Acute vulvitis 1 daily Pt. is to take 1 day 3 and 1 day 7 of antibiotics Pharmacy: [facility] [place] - [address] [place] [address] , [place], [address] - Last Documented On 0 2:05PM By PABLO WOODRUFF ; [facility] Current Medications (continue as prescribed) Lisinopril-hydroCHLOROthiazide 20-12.5 MG Oral Tablet 06/21/2019 Provider: Diagnosis: TAKE 2 TABLETS ONCE DAILY Last Documented On 06/21/2019 3:31PM By Rose Ny MA ; [facility] Turmeric 500 MG Oral Capsule 06/21/2019 Provider: Diagnosis: TAKE TWO TABLETS TWICE A DAY Last Documented On 06/21/2019 3:32PM By Rose Ny MA ; [facility] Meloxicam 15 MG Oral Tablet 06/21/2019 Provider: Diagnosis: TAKE ONE TABLET ONCE A DAY Last Documented On 06/21/2019 3:32PM By Rose Ny MA ; [facility] Indomethacin 25 MG Oral Capsule 06/21/2019 Provider: Diagnosis: TAKE ONE CAPSULE 3 TIMES A DAY NEEDED FOR KVNG N Last Documented On 06/21/2019 3:31PM By Rose Ny MA ; [facility] glipiZIDE 5 MG Oral Tablet 06/21/2019 Provider: Diagnosis: TAKE ONE TABLET DAILY Last Documented On 06/21/2019 3:30PM By Rose Ny MA ; [facility] Fluticasone Propionate (Inha l) 50 MCG/BLIST Inhalation Aerosol Powder Breath Activated 06/21/2019 Provider: Diagnosis: INHALE ONE PUFF TWO TIMES A DAY Last Documented On 06/21/2019 3:30PM By Rose Ny MA ; [facility] Cyanocobalamin 500 MCG Oral Tablet 06/21/2019 Provid er: Diagnosis: TAKE ONCE DAILY Last Documented On 06/21/2019 3:28PM By Rose Ny MA ; [facility] cloNIDine HCl 0.1 MG Oral Tablet 06/21/2019 Provider : Diagnosis: TAKE ONE TABLET TWICE A DAY Last Documented On 06/21/2019 3:27PM By Rose Ny MA ; [facility] amLODIPine Besylate 5 MG Oral Tablet 06/21/2019 Prov ider: Diagnosis: TAKE ONE TABLET DAILY Last Documented On 06/21/2019 3:25PM By Rose Ny MA ; [facility] Past Medications on file Clobetasol Propionate 0.05% External Cream 10/02/2021 - 10/22/2021 Provider: PABLO MARQUEZ Diagnosis: Lichen sclerosus et atrophicus DIRECTED, APPLY 2 TIMES W EEKLY no further refills authorized pt needs annual exam Last Documented On 1 8:07AM By PABLO KNAPP ; [facility] Clobetasol Propionate 0.05% External Cream 08/08/2019 - 11/06/2019 Provider: PABLO MARQUEZ Diagnosis: Lichen sclerosus et atrophicus as directed apply two times weekly after BID x 1 week then qd use x 1 week Last Documented On 9 11:19AM By PABLO WOODRUFF ; [facility] Clindamycin HCl 300 MG Oral Capsule 07/17/2019 - 07/24/2019 Provider: PABLO TA RN [place] Diagnosis: Acute vulvitis One tablet twice a day Last Documented On 9 9:57AM By PABLO WOODRUFF ; [facility] Sulfamethoxazole-Trimethopri m 800-160 MG Oral Tablet 07/11/2019 - 07/21/2019 Provider: PABLO TA RN [place] Diagnosis: Acute vulvitis One tablet twice a day ONE TAB 2 TIMES A DAY WIT H FOOD Last Documented On 9 4:52PM By PABLO WOODRUFF ; [facility] Naproxen 500 MG Oral Tablet 07/11/2019 - 07/18/2019 Provider: PABLO TA RN [place] Diagnosis: Acute vulvitis One tablet twice a day ONE T AB TWICE A DAY WITH FOOD DON'T EXCEED 2 TABS IN 24 HOURS Last Documented On 9 5:24PM By PABLO WOODRUFF ; [facility] Terazol 7 0.4% Vaginal Cream 07/11/2019 - 07/25/2019 Provider: PABLO MARQUEZ Diagnosis: Acute vulvitis as directed 1 KRISH IN VAGINA EVERY NIGHT X 14 apply bid to external genitalia Last Documented On 9 4:52PM By PABLO WOODRUFF ; [facility] Triamcinolone Acetonide 0.1% External Cream 06/21/2019 - 06/28/2019 Provider: PABLO TA RN [place] Diagnosis: Acute vulvitis as directed PLEASE DISPENSE 80 GM USE 50/50 MIX W/NYSTATIN CREAM AND APPLY TO AFFECTED AREAS 3 TIMES A DAY DIRECTED Last Documented On 9 5:00PM By PABLO WOODRUFF ; [facility] Nystatin 167783 UNIT/GM External Cream 06/21/2019 - 07/12/2019 Provider: PABLO MARQUEZ Diagnosis: Acute vulvitis as directed 50/50 mix with t riamcinolone cream apply THREE TIMES A DAY TO AFFECTED AREAS Last Documented On 9 5:00PM By PABLO KNAPP ; [facility] Sulfamethoxazole-Trimethopri m 800-160 MG Oral Tablet 06/21/2019 - 06/28/2019 Provider: PABLO TA RN [place] Diagnosis: Furuncle, unspecified One tablet twice a day ONE TAB 2 TIMES A DAY WIT H FOOD Last Documented On 9 5:00PM By PABLO WOODRUFF ; [facility] Terconazole 0.4% Vaginal Cream 06/21/2019 - 07/12/2019 Provider: PABLO TA RN [place] Diagnosis: Acute vaginitis as directed one krish in vagin a every night x 7 apply bid to perineum Last Documented On 9 5:00PM By PABLO WOODRUFF ; [facility] Medications Administered Includes: Administered Medications from this encounter No Administered Medications Recorded Vital Signs Includes: Vital Signs from this encounter Vital Name 08/05/2020 01:22P 08/05/2020 01: 19P Blood Pressure Sitting (mmHg) 128/68 Temp-Oral (F) 98.2 Weight (lb) 232 Height (in) 61 Last Documented: On 08/05/2020 1:26PM ; [facility] On 08/05/2020 1:19PM ; [facility] Results Includes: Results discussed during this encounter No Results Recorded For Specified Dates History of Present Illness Includes: History of Present Illness from this encounter HPI KEVIN CHAKRABORTY is a 54 year old female. - Allergy list reviewed - Medication reconciliation performed Pt using clobetasol cream twice weekly but still experiencing some itching. Pt also reports boils to breast and groin region Social History Description Last Updated Activities 08/05/2020 Last Documented On 0 2:06PM ; [facility] Alcohol use occa 08/05/2020 Last Documented On 0 2:06PM ; [facility] Alcohol use: 2 drinks or less per day oc c 08/05/2020 Last Documented On 0 2:06PM ; [facility] Education history 08/05/2020 Last Documented On 0 2:06PM ; [facility] Non-smoker 08/05/2020 Last Documented On 0 2:06PM ; [facility] Not a smoker 08/05/2020 Last Documented On 0 2:06PM ; [facility] Not using drugs 08/05/2020 Last Documented On 0 2:06PM ; [facility] 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[employer] mom recently from brain cancer 08/05/2020 Last Documented On 0 2:06PM ; [facility] Sexually active 08/05/2020 Last Documented On 0 2:06PM ; [facility] Sexually active 1 partner 08/05/2020 Last Documented On 0 2:06PM ; [facility] Single partner x 6 yrs 08/05/2020 Last Documented On 0 2:06PM ; [facility] Smoking status : Never smoker 08/05/2020 Last Documented On 0 2:06PM ; [facility] Procedures and Surgical History Includes: Procedures from this encounter Procedures Code Diagnosis Performing Provider Service L ocation Service Date education and instructions Last Documented On 0 1:37PM ; [facility] explanation of plan Last Documented On 0 1:37PM ; [facility] medical regimen review Last Documented On 0 1:37PM ; [facility] Urged Exercise and Diet , exercise at le ast 30 min three times per week Last Documented On 0 1:37PM ; [facility] Surgical History Last Updated History of hysterectomy 08/08/2019 Last Documented On 0 1:19PM ; [facility] History of vaginal hysterect albina PARTIAL d/t menorrhagia ovaries intact bilaterally 06/21/2019 Last Documented On 0 1:19PM ; [facility] Medical History Includes: Medical History addressed during this encounter Description Last Updated Sexually active with 1 partners in the l ast year 08/08/2019 Last Documented On 0 1:19PM ; [facility] History of asthma 08/08/2019 Last Documented On 0 1:19PM ; [facility] History of benign essential hypertension 08/08/2019 Last Documented On 0 1:19PM ; [facility] History of type 1 diabetes mellitus 07/25 Last Documented On 0 1:19PM ; [facility] LMP: [id number]/08/2019 Last Documented On 0 1:19PM ; [facility] Sexually active 08/08/2019 Last Documented On 0 1:19PM ; [facility] History of a DXA of the lateral lumbar s pine was performed 07/04/2019 08/08/2019 Last Documented On 0 1:19PM ; [facility] History of complete colonoscopy 2016 Last Documented On 0 1:19PM ; [facility] History of Pap smear done 07/12/201907/25 Last Documented On 0 1:19PM ; [facility] History of screening mammogram was perfo rmed 05/09/2019 08/08/2019 Last Documented On 0 1:19PM ; [facility] Last pap smear date 06/21/2019 07/11/2019 Last Documented On 0 1:19PM ; [facility] A colonoscopy was performed 2017 [facility] Last Documented On 0 1:19PM ; [facility] Result: normal 06/21/2019 Last Documented On 0 1:19PM ; [facility] High blood pressure ~Diabete s- herself and parents ~Kindey failure- father ~Brain cancer- mother ~Infertility 06/21/2019 Last Documented On 0 1:19PM ; [facility] 1 06/21/2019 Last Documented On 0 1:19PM ; [facility] Last mammogram date: 05/09/2019 9 Last Documented On 0 1:19PM ; [facility] Para 1 06/21/2019 Last Documented On 0 1:19PM ; [facility] Family History Includes: Family History addressed during this encounter Description Last Updated Maternal history of hypertension both pa rtents 08/08/2019 Last Documented On 0 1:19PM ; [facility] Maternal history of pure hypercholestero lemia both parents 08/08/2019 Last Documented On 0 1:19PM ; [facility] No family history of malignant female br east neoplasm 08/08/2019 Last Documented On 0 1:19PM ; [facility] No family history of malignant neoplasm of large intestine 08/08/2019 Last Documented On 0 1:19PM ; [facility] No family history of malignant neoplasm of the ovary 08/08/2019 Last Documented On 0 1:19PM ; [facility] No family history of uterine cancer 07/25 Last Documented On 0 1:19PM ; [facility] Paternal history of diabetes mellitus agustina th parents 08/08/2019 Last Documented On 0 1:19PM ; [facility] Review of Systems Includes: Review of Systems from this encounter Systemic: Not tiring easily. No fever, no chills, no unusual bleeding, and no recent weight change. No pain. Head: No headache. Neck: No neck pain and no swollen glands in the neck. Eyes: No vision problems. Breasts: No breast symptoms, no breast lump, no pain in breast, and patient performs self breast exams. Cardiovascular: No chest pain or discomfort and no palpitations. Pulmonary: No pulmonary symptoms, no dyspnea, no cough, and no wheezing. Gastrointestinal: No heartburn. No nausea, no vomiting, no abdominal pain, no diarrhea, and no constipation. Genitourinary: No change in urinary frequency and no incomplete emptying of bladder. No urinary loss of control and no dysuria. No genital lesion and no vaginal dryness. No vaginal discharge itching to L labia majora. Endocrine: No polydipsia, no hot flashes, and libido has not changed. Musculoskeletal: No back pain, no muscle aches, and no localized joint pain. Neurological: No dizziness. Psychological: No anxiety, no depression, and a desire to continue living. Skin: Pruritus and skin lesion: furuncle to R breast x 1 week. No rash. Mental Status Includes: Mental Status from this encounter Description Oriented to time, place, and person No anxiety A desire to continue living Functional Status Includes: Functional Status from this encounter No Functional Status Recorded Physical Exam Includes: Physical Exam from this encounter Allergies Includes: Active Allergies No Known Allergies Encounters Encounter Provider Location Date Check-In Time Check-Out Time Diagnosis WELL WOMAN EXAM PABLO TA RN HI [facility] 08/05/20 20 1:30PM 1:56PM Routine Gynecological Exam with Abnormal Findings,Lichen Sclerosus Et Atrophicus Insurance Includes: Active Insurance Policies Plan Name Member ID Group # Subscriber Relationship Effect gilberto Dates 1 - [facility] [id number] KEVIN CHAKRABORTY Self Clinical Notes Includes: Clinical Notes from this encounter No Clinical Notes Recorded
--- OUTSIDE RECORDS SUMMARY | 2024-10-23 02:08 | XMS_ITS | Patient Health Summary ---
Author Organization [facility] Address [address] [place] [address] Care Team Providers Care Carton Folder Name Role Phone Unavailable Primary Care Provider Unavailabl e Note from [facility],non-owned Affiliates and Associated Physician Practices is amultiple site organization consisting of ambulatory clinics and hospital sitesin [place], [place], [place] and [place]. This disclosure is being madepursuant to the Care Everywhere program and may not contain all information available regarding this patient. Last updated 18.[facility] Allergies No known active allergies Social History Tobacco Use Types Packs/Day Years Used Date Smoking Tobacco: Never Alcohol Use Standard Drinks/Week Comments Yes 0 (1 standard drink = 0.6 oz pur e alcohol) occationally Sex and Gender Information Value Date Recorded Sex Assigned at Not on file Gender Identity Not on file Sexual Orientation Not on file Procedures * GROSS + MICRO EXAM(Performed 02/24/2006) Results * GROSS + MICRO EXAM (02/24/2006 12:00 AM CDT) Result CASE NUMBER [id number] Comment: ORDERING PHYSICIAN ??CATALINO GALLARDO SPECIMEN TYPE ?Uterus and cervix Surgeon ?DR. CATALINO GALLARDO Gross Exam ? Dr. Fidel Hwang M.D. Gross Report ? COPY TO INDICATION FOR PROCEDURE ?? UTERINE FIBROIDS, DYSMENORRHEA, MENOMETRORRHAGIA OPERATION ?? YEHUDA GROSS THE SPECIMEN IS RECEIVED IN ONE CONTAINER LABELED WITH THE PATIENT'S NAME AND UTERUS, CERVIX AND CONSISTS OF A UTERUS WITH ATTACHED CERVIX. ??THE SPECIMEN WEIGHS 150 GRAMS AND MEASURES 11.5 CM. IN LENGTH X 7 CM. IN WIDTH X 6 CM. ANTERIOR TO POSTERIOR. ??THE SEROSAL SURFACE IS SMOOTH AND MOJICA. ??THE ECTOCERVIX IS SMOOTH AND MOIJCA WITH A DIAMETER OF 3.5 CM. ??THE SPECIMEN IS OPENED REVEALING AN ENDOCERVICAL CANAL MEASURING APPROXIMATELY 4 CM. IN LENGTH. ??THE ENDOMETRIAL CAVITY MEASURES APPROXIMATELY 3.5 X 3 CM. ??THE ENDOMETRIUM MEASURES 0.2 CM. IN THICKNESS. ??THE MYOMETRIAL WALL MEASURES 2.5 CM. IN THICKNESS. ??A FEW MOJICA NODULES ARE NOTED WITHIN THE MYOMETRIUM THAT MEASURES UP TO 0.8 CM. IN DIAMETER AND ARE MOJICA AND WHORLED ON CUT SURFACE. ??THE SPECIMEN IS SUBMITTED FOLLOWS A. ?? ANTERIOR CERVIX B. ?? POSTERIOR CERVIX C. ?? ANTERIOR ENDOMYOMETRIUM D. ?? POSTERIOR ENDOMYOMETRIUM E. ?? AMBULATORY SERVICE REPRESENTATIVE SECTIONS FROM NODULES [place]/CS MICROSCOPIC EXAM ? MICROSCOPIC SECTION OF THE CERVIX SHOW THAT IN PART TO BE SURFACED BY SQUAMOUS NORMALLY MATURING EPITHELIUM AND IN PART BY UNREMARKABLE COLUMNAR EPITHELIUM. ??ENDOCERVICAL GLANDS DISPLAY NORMAL MORPHOLOGY. ??ENDOMETRIUM SHOW PROLIFERATIVE PATTERN. ??HYPERPLASIA OR MALIGNANCY IS NOT SEEN. ??WITHIN THE MYOMETRIUM SMALL LEIOMYOMAS ARE PRESENT. THOSE ARE COMPOSED OF INTERLACING BUNDLES OF SMOOTH MUSCLE. ??THERE IS NO INCREASE IN CELLULARITY OR MITOTIC ACTIVITY IDENTIFIED. [employer] DIAGNOSIS ? DIAGNOSIS [1] ??UTERUS, TOTAL ABDOMINAL HYSTERECTOMY -- ?? CERVIX ? -NO PATHOLOGIC DIAGNOSIS -- ?? ENDOMETRIUM ? -PROLIFERATIVE PATTERN -- ?? MYOMETRIUM ? -LEIOMYOMATA. [employer] Released By ?LUDWIG MONAE CPT Code ? 57749 MISCELLANEOUS SAMPLE S / Unknown 02/24/2006 02/25/2006 7:22 AM CDT Historical Provider LAB - PATHOLOGY/C YTOLOGY ORDERABLES
--- OUTSIDE RECORDS SUMMARY | 2024-10-23 02:08 | XMS_ITS | Clinical Summary ---
Author Organization [facility] Address [address] [place] [address] Phone Care Team Providers Care Shirt Operator Name Role Phone Rosa Shi MD Primary Care Provider [phone] Allergies No known active allergies Medications fluticasone-césar meterol (Advair Diskus) 100-50 MCG/DOSE AEROSOL POWDER, BREATH ACTIVATEDIndica tions:Asthma take 1 Puff by inhalation 2 times daily as needed. Indications: Asthma Active ALBUTEROL IN take 1 Puff by inhalation every 4 hours as needed. Active Lancets Misc Use as directed 100 Lancet 1 Active Glucose Blood Strip Diagnosis: Diabetes type 2 Blood testing frequency: 3 times a day 100 Strip 1 Active Blood Glucose Monitoring Suppl Device Diagnosis: Diabetes type 2 Blood testing frequency: 3 times a day 1 Each 1 Active atorvastatin (LIPITOR) 20 MG Tablet Take 1 Tablet by mouth daily. 90 Tablet 1 Active metFORMIN (GLUCOPHAGE) 500 MG Tablet Take 1 Tablet by mouth daily. 180 Tablet 1 Active amLODIPine (NORVASC) 5 MG Tablet Take 1 Tablet by mouth daily. 90 Tablet 1 Active Active Problems Problem Noted Date Diagnosed Date Hyperlipidemia 12/01/2020 COVID-19 11/28/2020 HTN (hypertension) 11/28/2020 Type 2 diabetes mellitus, wi thout long-term current use of insulin 11/28/2020 Insomnia 11/28/2020 Resolved Problems Problem Noted Date Diagnosed Date Resolved Date Acute hypoxemic respiratory failure due to COVID-19 12/01/2020 12/01/2020 Acute respiratory failure with hypoxia 11/28/2020 12/01/2020 Pneumonia 11/28/2020 12/01/2020 Family History Medical History Relation Name Comments Diabetes Father Hypertension Father Stroke Father Cancer Mother Diabetes Mother Hypertension Mother Stroke Mother Relation Name Status Comments Father Mother Social History Tobacco Use Types Packs/Day Years [...] on file Sexual Orientation Not on file Last Filed Vital Signs Vital Sign Reading Time Taken Comments Blood Pressure 172/88 12/01/2020 7:00 AM SUPPORT MANAGER Pulse 89 12/01/2020 9:06 AM SUPPORT MANAGER Temperature 36.2 ??C (97.2 ??F) 12/01/2020 7:00 AM CS T Respiratory Rate 18 12/01/2020 9:06 AM SUPPORT MANAGER Oxygen Saturation 90% 12/01/2020 9:06 AM SUPPORT MANAGER Inhaled Oxygen Concentration - - Weight 106.6 kg (235 lb) 11/28/2020 7:13 AM SUPPORT MANAGER Height 160 cm (5' 3 ) 11/28/2020 7:13 AM SUPPORT MANAGER Body Mass Index 41.63 11/28/2020 7:13 AM SUPPORT MANAGER Plan of Treatment Health Maintenance Due Date Last Done Comments Diabetes: Eye Exam 1963 Diabetes: Foot Exam 1963 Hepatitis C Virus (HCV) Screening 1963 TdaP Immunization 1963 Pneumococcal Immunization Combined (1 of 2 - PCV) 1969 Pneumococcal Immunization (50+ years) (1 of 2 - PCV) 1982 Colonoscopy 2008 Colorectal Cancer Screening 2008 Cologuard 2013 Immunochemical Fecal Occult Blood 2013 Mammogram 2013 Zoster Immunization (1 of 2) 2013 Diabetes: Hemoglobin A1c 05/29/2021 11/29/2020 Diabetes: Nephropathy Screening 12/01/2021 12/01/2020, 11/30/2020, 11/29/2020, Additional history exists Influenza Immunization (#1) 2024 10/0 10/2018, 07/25/2018, 07/13/2018 SARS-COV-2 Immunization ( season) 2024 08/23/2021, 01/04/2021, 12/07/2020 Respiratory Syncytial Virus (RSV) Immunization (Adult) (1 - 1-dose 75+ series) 2038 Hepatitis B Immunization Aged Out No longer eligible based on patient's age to complete this topic Meningococcal Immunization (ACWY) Aged Out No longer eligible based on patient's age to complete this topic Rotavirus Immunization Aged Out No lo nger eligible based on patient's age to complete this topic Procedures Procedure Name Priority Date/Time Associated Diagnosis Comments CMP (COMPREHENSIVE METABOLIC PANEL) Routine 12/01/2020 6:21 AM SUPPORT MANAGER HEMOGLOBIN A1C W/ ESTIMATED GLUCOSE Routine 11/29/2020 4:00 AM SUPPORT MANAGER from Last 3 Months or Most Recently Relevant to Health Maintenance Results * (ABNORMAL) CMP (Comprehensive Metabolic Panel) (12/01/2020 6:21 AM SUPPORT MANAGER) SODIUM 139 136 - 144 mmol/L 12/01/2020 6:48 AM SUPPORT MANAGER [facility] POTASSIUM 4.0 3.5 - 5.1 mmol/L 12/01/2020 6:48 AM SUPPORT MANAGER [facility] CHLORIDE 100 100 - 110 mmol/L 12/01/2020 6:48 AM SUPPORT MANAGER [facility] CO2, VENOUS 29 22 - 32 mmol/L 12/01/2020 6:48 AM SUPPORT MANAGER [facility] ANION GAP 14.0 8.0 - 20.0 mmol/L 12/01/2020 6:48 AM [facility] GLUCOSE 72 70 - 99 mg/dL 12/01/2020 6:48 AM [facility] BUN 15 6 - 20 mg/dL 12/01/2020 6:48 AM [facility] CREATININE, BLOOD 0.62 0.60 - 1.10 mg/dL 12/01/2020 6:48 AM [facility] BUN/CREATININE RATIO 24(H) 12 - 20 ratio 12/01/2020 6:48 AM [facility] TOTAL PROTEIN 7.3 6.0 - 8.3 g/dL 12/01/2020 6:48 AM [facility] ALBUMIN 3.4(L) 3.5 - 5.2 g/dL 12/01/2020 6:48 AM [facility] Comment: The colormetric methods used for the determination of Albumin may lead to falsely elevated test results in patients suffering from renal failure or insufficiency due to interference with other proteins. A/G RATIO 0.9(L) 1.0 - 2.0 12/01/2020 6:48 AM [facility] CALCIUM 9.1 8.9 - 10.3 mg/dL 12/01/2020 6:48 AM [facility] T BILI 0.4 <=1.2 mg/dL 12/01/2020 6:48 AM [facility] SGOT (AST) 13 <=32 U/L 12/01/2020 6:48 AM [facility] SGPT (ALT) 21 <=41 U/L 12/01/2020 6:48 AM [facility] ALKALINE PHOSPHATASE 86 35 - 105 U/L 12/01/2020 6:48 AM [facility] GFR, EST. NONAFRICAN >60 >=60 12/01/2020 6:48 AM [facility] GFR, EST. >60 >=60 021 6:48 AM [facility] Comment: Creatinine Clearance is the preferred criteria for selecting drug dose adjustments in renally impaired patients. ??The GFR is provided as additional pertinent clinical information. GFR is reported in mL/min/1.73 sq m. Blood Venipuncture / Unknown 12/01/2020 6:21 AM SUPPORT MANAGER 12/01/2020 6:25 AM SUPPORT MANAGER Patrick Oliva MD CHEMISTRY ORDERABLES Final Res ult Performing Organization Address [facility] Co de Phone Number [facility] [address] [place] [address] * (ABNORMAL) Hemoglobin A1C w/ Estimated Glucose (11/29/2020 4:00 AM SUPPORT MANAGER) HGB-A1C 8.5(H) 4.0 - 6.0 % 11/29/2020 7:19 AM SUPPORT MANAGER [facility] Est Average Glucose 197.3 mg/dL 11/29/2020 7:19 AM SUPPORT MANAGER [facility] Blood Butterfly Punctu re / Unknown 11/29/2020 4:00 AM SUPPORT MANAGER 11/29/2020 4:19 AM SUPPORT MANAGER Narrative [facility] - 11/29/2020 7:19 AM SUPPORT MANAGER HEMOGLOBIN A1C: DIABETIC PATIENTS: WELL-CONTROLLED: ?? 6.2 - 7.0 INTERMEDIATE WELL-CONTROLLED: ??7.0 - 9.0 POORLY-CONTROLLED: ??>9.0 Komal Lugo APRN, CHARGEBACK SPECIALIST CHEMISTRY ORDERABLES Final Result Performing Organization Address [facility] de Phone Number [facility] [address] [place] [address] from Last 3 Months or Most Recently Relevant to Health Maintenance Advance Directives * Full Code (Latest Code Status on File) Date Activated Date Inactivated Comments 11/28/2020 9:45 AM 12/01/2020 1:45 PM CPR-Full Treat ment: FULL ARREST: Attempt Resuscitation/CPR wit intubation and mechanical ventilation. PRE-ARREST: Use entire range of life support measures to stabilize the patient. Care Teams Shirt Operator Relationship Specialty Start Date End Date Bird, Rosa S, MD [address] [place] [address] PCP - General Family Medicine 11/28/20
--- OUTSIDE RECORDS SUMMARY | 2024-10-23 02:08 | XMS_ITS | Encounter Summary ---
Author Organization [facility] Address [address] [place] [address] Care Team Providers Care Automatic Dry Starch Operator Name Role Phone Unavailable Primary Care Provider Unavailabl e Encounter Details Date Type Department Care Team (Late st Contact Info) Description 02/24/2006 Orders Only [facility] [address] [place] [address] ProviderCoty MD Social History Tobacco Use Types Packs/Day Years Used Date Smoking Tobacco: Never Assessed Sex and Gender Information Value Date Recorded Sex Assigned at Not on file Gender Identity Not on file Sexual Orientation Not on file documented as of this encounter Plan of Treatment Not on file documented as of this encounter Procedures Procedure Name Priority Date/Time Associated Diagnosis Comments GROSS + MICRO EXAM LARRY 02/24/2006 12 :00 AM CDT documented in this encounter Results * GROSS + MICRO EXAM (02/24/2006 [...] AND [place]. ??THE ECTOCERVIX IS SMOOTH AND [place] WITH A DIAMETER OF 3.5 CM. ??THE [...] ENDOMYOMETRIUM D. ?? POSTERIOR ENDOMYOMETRIUM E. ?? MANAGEMENT ACCOUNTS MANAGER SECTIONS FROM NODULES KS/CS MICROSCOPIC EXAM ? [...] INCREASE IN CELLULARITY OR MITOTIC ACTIVITY IDENTIFIED. [employer] DIAGNOSIS ? DIAGNOSIS [1] ??UTERUS, TOTAL ABDOMINAL HYSTERECTOMY -- ?? CERVIX ? -NO PATHOLOGIC DIAGNOSIS -- ?? ENDOMETRIUM ? -PROLIFERATIVE PATTERN -- ?? MYOMETRIUM ? -LEIOMYOMATA. [employer] Released By ?LUDWIG MONAE CPT Code ? 40297 MISCELLANEOUS SAMPLE S / Unknown 02/24/2006 02/25/2006 7:22 AM CDT Historical Provider LAB - PATHOLOGY/C YTOLOGY ORDERABLES documented in this encounter Visit Diagnoses Not on filedocumented in this encounter
--- OUTSIDE RECORDS SUMMARY | 2024-10-23 02:09 | XMS_ITS | Encounter Summary ---
Author Organization [facility] Healthcare Address [address] [place] [address] Care Team Providers Care Newspaper Manager Name Role Phone Rosa Shi MD Primary Care Provider [phone] Reason for Visit * Diagnostic Imaging (Routine) - Closed Specialty Diagnoses / Procedures Referred By Contac t Referred To Contact Diagnoses Closed displaced fracture of lateral malleolus of left fibula, initial encounter Procedures XR Ankle Left 3+ Vw Noah Villafana Jr., MD [address] [place] [address] Phone: tel: fax: [facility] Medical Group Referral ID Status Reason Start Date Expiration Date Visits Re quested Visits Authorized [id number] Closed 11/17/2023 12/16/2024 1 1 Encounter Details Date Type Department Care Team (Latest Contact Info) Description 11/17/2023 2:51 PM HIGH SCHOOL LIBRARIAN - 11/17/2023 11:59 PM HIGH SCHOOL LIBRARIAN Hospital Encounter [facility] [id number] [id number] Discharge Disposition: Discharge to home or self care Social History Tobacco Use Types Packs/Day Years Used Date Smoking Tobacco: Never Smokeless Tobacco: Never Alcohol Use Standard Drinks/Week Comments No 0 (1 standard drink = 0.6 oz pur e alcohol) PHQ-2 Answer Date Recorded PHQ-2 Score 1 11/23/2019 Comments No Sex and Gender Information Value Date Recorded Sex Assigned at Not on file Legal Sex Female 8:35 AM HIGH SCHOOL LIBRARIAN Gender Identity Not on file Sexual Orientation Not on file documented as of this encounter Medications at Time of Discharge acetaminophen-co deine (TYLENOL with CODEINE #3) 300-30 mg per tablet Take 1-2 tablets by mouth every 4-6 hours as needed for pain control. 40 tablet 11/03/2023 Advair Diskus 500-50 mcg/dose diskus inhaler USE 1 INHALATION TWICE A DAY 180 each 3 08/26/2020 amLODIPine (NORVASC) 10 mg tablet Take 1 tablet (10 mg total) by mouth daily 90 tablet 1 11/23/2019 anastrozole (ARIMIDEX) 1 mg tablet 10/09/2022 atorvastatin (LIPITOR) 20 mg tablet Take 1 tablet (20 mg total) by mouth daily 12/01/2020 blood glucose diagnostic strip Diagnosis: Diabetes type 2 Blood testing frequency: 3 times a day 12/01/2020 cholecalciferol (VITAMIN D-3) 1,000 unit capsule Take by mouth daily clobetasoL (TEMOVATE) 0.05 % cream DIRECTED APPLY TWICE DAILY TO AFFECTED AREA(S) FOR 1 WEEK THEN 1 TIME DAILY FOR 1 WEEK THEN 2 TIMES WEEKLY 11/13/2019 cloNIDine (CATAPRES) 0.1 mg tablet cloNIDine HCl 0.1 MG Oral Tablet QTY: 0 tablet Days: 0 Refills: 0 Written: 06/21/19 Patient Instructions: TAKE ONE TABLET TWICE A DAY 06/21/2019 cyanocobalamin (Vitamin B-12) 500 mcg tabletIndication s:Prevention of Vitamin B12 Deficiency Take 1 tablet (500 mcg total) by mouth daily flash glucose scanning reader ([employer] AISTYLE ANDIE 14 DAY READER) misc 1 application every 2 (two) weeks 2 each 5 07/04/2019 glipiZIDE (GLUCOTROL) 5 mg tablet Take 1 tablet (5 mg total) by mouth daily 90 tablet 3 11/23/2019 lisinopril-hydro CHLOROthiazide (ZESTORETIC) 20-12.5 mg per tablet Take 2 tablets by mouth daily 180 tablet 1 09/27/2019 metFORMIN (GLUCOPHAGE) 500 mg tablet Take 500 mg by mouth daily 12/01/2020 nystatin cream APPLY DIRECTED A 50 50 MIX WITH TRIAMCINOLONE CREAM TOPICALLY TO AFFECTED AREA THREE TIMES DAILY 11/17/2019 Trulicity 0.75 mg/0.5 mL pen injector 0.5 mL (0.75 mg total) by other route once a week 07/16/2023 turmeric root extract 500 mg capsule Take by mouth 2 (two) times a day. azithromycin (ZITHROMAX) 250 mg tabletIndication s:Upper respiratory tract infection, unspecified type Take 2 tablets the first day, then 1 tablet daily for 4 days. 6 tablet 07/15/2022 4 ibuprofen (ADVIL,MOTRIN) 600 mg tablet Take 1 tablet (600 mg total) by mouth 3 (three) times a day as needed for pain 10/31/2023 4 indomethacin (INDOCIN) 25 mg capsule Indomethacin 25 MG Oral Capsule QTY: 0 capsule Days: 0 Refills: 0 Written: 06/21/19 Patient Instructions: TAKE ONE CAPSULE 3 TIMES A DAY NEEDED FOR PAIN 06/21/2019 4 meloxicam (MOBIC) 15 mg tablet Meloxicam 15 MG Oral Tablet QTY: 0 tablet Days: 0 Refills: 0 Written: 06/21/19 Patient Instructions: TAKE ONE TABLET ONCE A DAY 06/21/2019 4 documented as of this encounter Discharge Disposition Disposition Code Departure Means Destination Discharge to home or self care documented in this encounter Plan of Treatment Not on file documented as of this encounter Procedures Procedure Name Priority Date/Time Associated Diagnosis Comments XR ANKLE LEFT 3 OR MORE VIEWS Schedule Routine, Read Routine (OP Routine) 11/17/2023 3:18 PM HIGH SCHOOL LIBRARIAN Closed displaced fracture of lateral malleolus of left fibula with routine healing, subsequent encounter documented in this encounter Results * XR Ankle Left 3+ Vw (11/17/2023 3:18 PM HIGH SCHOOL LIBRARIAN) Anatomical Region Laterality Modality Lower Extremities, Ankle Left Compute d Radiography Narrative 11/17/2023 3:18 PM HIGH SCHOOL LIBRARIAN Left ankle three views nonweightbearing in the cast shows the minimally displaced lateral malleolus fracture position is essentially unchanged. ?? The mortise is still anatomic, but the fracture is not healed. Noah Villafana Jr., MD IMG XR PROCEDURES F inal Result documented in this encounter Visit Diagnoses Not on filedocumented in this encounter Additional Health Concerns Infection Onset Date Last Indicated Resolved Time COVID: Recovered Comment:Added based on recent COVID infection. 09/16/2023 10/31/2023 12/15/2023 3:[address] documented as of this encounter Care Teams Newspaper Manager Relationship Specialty Start Date End Date Rosa Shi MD PCP - General Family Medicine 10/20/22 documented as of this encounter
--- OUTSIDE RECORDS SUMMARY | 2024-10-23 02:09 | XMS_ITS | Encounter Summary ---
Author Organization [facility] Healthcare Address [address] [place] [address] Care Team Providers Care Director Of Development Name Role Phone Rosa Shi MD Primary Care Provider [phone] Reason for Visit * Diagnostic Imaging (Routine) - Closed Specialty Diagnoses / Procedures Referred By Contac t Referred To Contact Diagnoses Pain Procedures XR Ankle Left 3 or More Views Minoo Wu NP [address] [place] [address] Phone: tel:[phone] fax:[phone] [address] Referral ID Status Reason Start Date Expiration Date Visits Re quested Visits Authorized [id number] Closed 10/31/2023 11/29/2024 1 1 Encounter Details Date Type Department Care Team (Latest Contact Info) Description 10/31/2023 11:27 AM GROUND CREW SUPERVISOR - 10/31/2023 11:59 PM GROUND CREW SUPERVISOR Hospital Encounter [facility] [address] [place] [address] Discharge Disposition: Discharge to home or self [...] on file Legal Sex Female 8:35 AM GROUND CREW SUPERVISOR Gender Identity Not on file Sexual Orientation Not on file documented as of this encounter Medications at Time of Discharge Advair Diskus 500-50 mcg/dose diskus inhaler USE [...] by mouth daily flash glucose scanning reader ([employer] ANDIE 14 DAY READER) [facility] 1 application every 2 (two) weeks 2 [...] ANKLE LEFT 3 OR MORE VIEWS Schedule LARRY, Read LARRY (Appt Today, Awaiting Results) 10/31/2023 11:43 AM GROUND CREW SUPERVISOR Pain documented in this encounter Results * XR Ankle Left 3 or More Views (10/31/2023 11:43 AM GROUND CREW SUPERVISOR) Anatomical Region Laterality Modality Lower Extremities, Ankle Left Compute d Radiography 10/31/2023 11:4 8 AM GROUND CREW SUPERVISOR Narrative 10/31/2023 11:50 AM GROUND CREW SUPERVISOR EXAM DESCRIPTION: XR ANKLE LEFT 3 OR MORE VIEWS REASON FOR STUDY: pain ?? Fell x yesterday. ?? Complaints of Pain/Swelling to mainly L knee/ankle. ?? Difficulty bearing weight. ?? No prior injuries/fractures/surgery to LLE. ?? Urgent care wrapped LLE prior to imaging. ?? TECHNIQUE: 3 ??radiographic view(s) of the ??left ankle . COMPARISON: None FINDINGS: BONES/JOINTS: There is a mildly displaced fracture of the distal fibula of a proximally 3 mm. ??No additional fractures are seen. ??The joint spaces are normal. ??There is a plantar calcaneal enthesophyte. SOFT TISSUES: Diffuse soft tissue swelling is present. ?? IMPRESSION: Distal fibular fracture. THIS IS AN ELECTRONICALLY VERIFIED FINAL REPORT 10/31/2023 11:50 AM - Electronically signed by ??Savita Shetty M.D. LL: LL D: ??10/31/2023 11:50 AM T: ??10/31/2023 11:50 AM Report ID: [id number] Reading Location: ??[id number] Procedure Note Savita Shetty MD - 10/31/2023 EXAM DESCRIPTION: XR ANKLE LEFT 3 OR MORE VIEWS REASON FOR STUDY: pain Fell x yesterday. Complaints of Pain/Swelling to mainly L knee/ankle. Difficulty bearing weight. No prior injuries/fractures/surgery to LLE. Urgent care wrapped LLE prior to imaging. TECHNIQUE: 3 radiographic view(s) of the left ankle . COMPARISON: None FINDINGS: BONES/JOINTS: There is a mildly displaced fracture of the distal fibula ofa proximally 3 mm. No additional fractures are seen. The joint spaces are normal. There is a plantar calcaneal enthesophyte. SOFT TISSUES: Diffuse soft tissue swelling is present. IMPRESSION: Distal fibular fracture. THIS IS AN ELECTRONICALLY VERIFIED FINAL REPORT 10/31/2023 11:50 AM - Electronically signed by Savita Shetty M.D. LL: LL Report ID: [id number] Reading Location: [id number] Minoo Wu RADIO ENGINEER IMG XR PROCEDURES Final Res ult documented in this encounter Visit Diagnoses Not on filedocumented in this encounter Additional Health Concerns Infection Onset Date Last Indicated Resolved Time COVID: Recovered Comment:Added based on recent COVID infection. 09/16/2023 10/31/2023 12/15/2023 3:[address] documented as of this encounter Care Teams Director Of Development Relationship Specialty Start Date End Date Rosa Shi MD PCP - General Family Medicine 12/27/22 documented as of this encounter
--- OUTSIDE RECORDS SUMMARY | 2024-10-23 02:09 | XMS_ITS | Encounter Summary ---
Author Organization [facility] Healthcare Address [address] [place] [address] Care Team Providers Care Research Agricultural Engineer Name Role Phone Rosa Shi MD Primary Care Provider [phone] Encounter Details Date Type Department Care Team (Late st Contact Info) Description 08/01/2023 Immunization [facility] [address] [place] [address] Fang Bernard RN Need for vaccination (Primary Dx) Social History Tobacco Use Types Packs/Day Years Used Date Smoking Tobacco: Never Smokeless Tobacco: Never Alcohol Use Standard Drinks/Week Comments No 0 (1 standard drink = 0.6 oz pur e alcohol) PHQ-2 Answer Date Recorded PHQ-2 Score 1 11/23/2019 Comments No Sex and Gender Information Value Date Recorded Sex Assigned at Not on file Legal Sex Female 8:35 AM GIFT SHOP CLERK Gender Identity Not on file Sexual Orientation Not on file documented as of this encounter Plan of Treatment Not on file documented as of this encounter Visit Diagnoses Diagnosis Need for vaccination- Primary Need for prophylactic vaccination and inoculation against unspecified single disease documented in this encounter Orders Immunization/Injection Count Last Ordered Date First Ordered Date FLU VACCINE QUAD PF 3Y+ IM - AFLURIA 1 05/2023 documented in this encounter Care Teams Research Agricultural Engineer Relationship Specialty Start Date End Date Rosa Shi MD PCP - General Family Medicine 10/20/22 documented as of this encounter
--- OUTSIDE RECORDS SUMMARY | 2024-10-23 02:09 | XMS_ITS | Encounter Summary ---
Author Organization [facility] Healthcare Address [address] [facility] [address] [place] [address] Care Team Providers Care Pruner Name Role Phone Rosa Shi MD Primary Care Provider [phone] Reason for Visit * Diagnostic Imaging (Routine) - Closed Specialty Diagnoses / Procedures Referred By Contac t Referred To Contact Diagnoses Closed displaced fracture of lateral malleolus of left fibula with routine healing, subsequent encounter Procedures XR Ankle Left 3+ [place] [address] [address] Phone: tel: fax: [facility] Medical Group Referral ID Status Reason Start Date Expiration Date Visits Re quested Visits Authorized [id number] Closed 12/01/2023 12/30/2024 1 1 Encounter Details Date Type Department Care Team (Latest Contact Info) Description 12/01/2023 3:28 PM KILN FIRER - 12/01/2023 11:59 PM KILN FIRER Hospital Encounter [facility] [address] [phone] Discharge Disposition: Discharge to home or self [...] on file Legal Sex Female 8:35 AM KILN FIRER Gender Identity Not on file Sexual Orientation [...] by mouth daily flash glucose scanning reader ([employer] ANDIE 14 DAY READER) misc 1 application [...] 1 tablet (600 mg total) by mouth every 6 (six) hours as needed for pain Take with food 90 tablet 11/18/2023 4 indomethacin (INDOCIN) 25 mg capsule Indomethacin [...] VIEWS Schedule Routine, Read Routine (OP Routine) 12/01/2023 3:45 PM KILN FIRER Closed displaced fracture of lateral malleolus of left fibula with routine healing, subsequent encounter documented in this encounter Results * XR Ankle Left 3+ Vw (12/01/2023 3:45 PM KILN FIRER) Anatomical Region Laterality Modality Lower Extremities, Ankle Left Compute d Radiography Narrative 12/01/2023 3:45 PM KILN FIRER My interpretation of her x-rays today: ??Three views of her left ankle including weight-bearing AP, lateral, and mortise show the Anaya B lateral malleolus fracture remains in good and is being treated non operatively. ?? There has been no change the alignment of the fracture fragment. ??There is callus formation present. Charlene HURD IMG XR PROCEDURES Final Resu lt documented in this encounter Visit Diagnoses Not on filedocumented in this encounter Additional Health Concerns Infection Onset Date Last Indicated Resolved Time COVID: Recovered Comment:Added based on recent COVID infection. 09/16/2023 10/31/2023 12/15/2023 3:[address] documented as of this encounter Care Teams Pruner Relationship Specialty Start Date End Date Rosa Shi MD PCP - General Family Medicine 10/20/22 documented as of this encounter
--- OUTSIDE RECORDS SUMMARY | 2024-10-23 02:09 | XMS_ITS | Encounter Summary ---
Author Organization [facility] Healthcare Address [address] [facility] [address] [place] [address] Care Team Providers Care Mitigation Supervisor Name Role Phone Rosa Shi MD Primary Care Provider [phone] Encounter Details Date Type Department Care Team (Late st Contact Info) Description 11/18/2023 Telephone [facility] Orthopedics and Sports Medicine at [address] [address] Noah Villafana Jr., MD [address] [place] [id number] Social History Tobacco Use Types Packs/Day Years Used Date Smoking Tobacco: Never Smokeless Tobacco: Never Alcohol Use Standard Drinks/Week Comments No 0 (1 standard drink = 0.6 oz pur e alcohol) PHQ-2 Answer Date Recorded PHQ-2 Score 1 11/23/2019 Comments No Sex and Gender Information Value Date Recorded Sex Assigned at Not on file Legal Sex Female 8:35 AM 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 Gender Identity Not on file Sexual Orientation Not on file documented as of this encounter Ordered Prescriptions Prescription Sig Dispense Quantity Refills Last Filled Start Date End Date ibuprofen (ADVIL,MOTRIN) 600 mg tablet Take 1 tablet (600 mg total) by mouth every 6 (six) hours as needed for pain Take with food 90 tablet 11/18/2023 12/22/2023 documented in this encounter Miscellaneous Notes * Telephone Encounter - Naty Barahona - 11/18/2023 2:06 PM CST Patient informed ING 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 * Telephone Encounter - Naty Barahona - 11/18/2023 10:14 AM CST Patient requesting refill on Ibuprofen DAVID Vega ING 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 documented in this encounter Plan of Treatment Not on file documented as of this encounter Visit Diagnoses Not on filedocumented in this encounter Discontinued Medications Medication Sig Discontinue Reason Start Date End Da te ibuprofen (ADVIL,MOTRIN) 600 mg tablet Take 1 tablet (600 mg total) by mouth 3 (three) times a day as needed for pain Reorder 10/31/2023 11/18/2023 documented as of this encounter Additional Health Concerns Infection Onset Date Last Indicated Resolved Time COVID: Recovered Comment:Added based on recent COVID infection. 09/16/2023 10/31/2023 12/15/2023 3:[address] documented as of this encounter Care Teams Mitigation Supervisor Relationship Specialty Start Date End Date Rosa Shi MD PCP - General Family Medicine 10/20/22 documented as of this encounter
--- OUTSIDE RECORDS SUMMARY | 2024-10-23 02:09 | XMS_ITS | Encounter Summary ---
Author Organization [facility] Healthcare Address [address] [place] [address] Care Team Providers Care Staking Engineer Name Role Phone Rosa Shi MD Primary Care Provider [phone] Reason for Referral * Diagnostic Imaging (Routine) - Closed Specialty Diagnoses / Procedures Referred By Vi t Referred To Contact Diagnoses Closed displaced fracture of lateral malleolus of left fibula with routine healing, subsequent encounter Procedures XR Ankle Left 3 or More Views Charlene [place] [id number] [place] [address] Phone: tel: fax: Referral ID Status Reason Start Date Expiration Date Visits Re quested Visits Authorized [id number] Closed 12/22/2023 01/20/2025 1 1 C COORDINATOR Reason for Visit * Reason Comments Follow-up Post-op Encounter Details Date Type Department Care Team (Late st Contact Info) Description 12/22/2023 3:00 PM MUSIC COORDINATOR Office Visit [facility] Medical Group Orthopedics and Sports Medicine at [facility] [address] [address] [place] [address] [address] Closed displaced fracture of lateral malleolus of left fibula with routine healing, subsequent encounter (Primary Dx) Social History Tobacco Use Types Packs/Day Years Used Date Smoking Tobacco: Never Smokeless Tobacco: Never Alcohol Use Standard Drinks/Week Comments No 0 (1 standard drink = 0.6 oz pur e alcohol) PHQ-2 Answer Date Recorded PHQ-2 Score 1 11/23/2019 Comments No Sex and Gender Information Value Date Recorded Sex Assigned at Not on file Legal Sex Female 8:35 AM MUSIC COORDINATOR Gender Identity Not on file Sexual Orientation Not on file documented as of this encounter Last Filed Vital Signs Vital Sign Reading Time Taken Comments Blood Pressure - - Pulse - - Temperature - - Respiratory Rate - - Oxygen Saturation - - Inhaled Oxygen Concentration - - Weight 95.3 kg (210 lb) 12/22/2023 2:34 PM MUSIC COORDINATOR Height 157.5 cm (5' 2.01 ) 12/22/2023 2:34 PM CS T Body Mass Index 38.4 12/22/2023 2:34 PM MUSIC COORDINATOR documented in this encounter Ordered Prescriptions Prescription Sig Dispense Quantity Refills Last Filled Start Date End Date ibuprofen (ADVIL,MOTRIN) 800 mg tablet Take 1 tablet (800 mg total) by mouth every 8 (eight) hours as needed for pain 90 tablet 12/22/2023 01/21/2024 documented in this encounter Progress Notes * Charlene Montano PA - 12/22/2023 3:00 PM CST Images from the original note were not included. FOLLOW UP VISIT Subjective CHIEF COMPLAINT She had concerns including Follow-up and Post-op of the Left Ankle. HISTORY OF PRESENT ILLNESS This is a 58-year-old female who is here today to be re-evaluated for left ankle lateral malleolus fracture which has been treated nonoperatively and occurred approximately 6 weeks ago. She appears to be doing better. She appears to have less edema. She is still having some difficulties with anklerange of motion. She is ambulating more easily in her boot now. She states that yesterday she had fa irly significant pain to the ankle. It is a little better today. She is wondering if there is any change to her x-rays or if she has done something to her ankle. Pain Assessment Pain Assessment: 0-10 Pain Score: 5 - Moderate pain Pain Location: Ankle Pain Orientation: Left Pain Descriptors: Tingling, Aching Pain Frequency: Intermittent MEDICATIONS She has a current medication list which includes the following prescription(s): acetaminophen-codeine, advair diskus, allopurinol, amlodipine, anastrozole, atorvastatin, blood glucose diagnostic, cholecalciferol, clobetasol, clonidine, cyanocobalamin, flash glucose scanning reader, glipizide, ibuprofen, lisinopril- hydrochlorothiazide, metformin, nystatin, trulicity, and turmeric root extract. REVIEW OF SYSTEMS Review of Systems Objective PHYSICAL EXAM Ht 157.5 cm (5' 2.01 ) Wt 95.3 kg (210 lb) BMI 38.40 kg/m?? She is alert and oriented x3. She has in no acute distress. He is cooperative with the exam. She still has some tenderness to her lateral malleolus as expected. She does not appear to have any significant tenderness medially. She has been doing a little bit with her exercises. However, she is stillhaving difficulty with dorsiflexion and plantar flexion when compared to her other side. She is still very limited on inversion and eversion as well. This is as expected. She still has mild to moderate edema throughout the foot and ankle. She is using her boot for ambulation and is doing fairly well with this but is still limping. She appears neurovascularly at baseline. REVIEW OF X-RAYS/STUDIES/LABS XR Ankle Left 3 or More Views My interpretation of her x-rays today: Three views of her left ankle including weight-bearing AP, lateral, and mortise show that the lateral malleolus fracture which was a Anaya B in nature remains in good position. There has been no migration or change the alignment of the fracture fragment. This was treated non operatively. She appears to have good callus formation present. Ankle mortise remains congruent and well aligned. Assessment/Plan Rosa was seen today for follow-up and post-op. Diagnoses and all orders for this visit: Closed displaced fracture of lateral malleolus of left fibula with routine healing, subsequent encounter - XR Ankle Left 3 or More Views Other orders - ibuprofen (ADVIL,MOTRIN) 800 mg tablet; Take 1 tablet (800 mg total) by mouth every 8 (eight) hours as needed for pain PLAN This is a 58-year-old female who is here today to be re-evaluated for her left ankle status post Anaya B lateral malleolus fracture which she sustained about 6 weeks ago. She is doing better with this. She will continue to work on her range of motion and start coming out of her boot as she tolerates this. She may start transitioning to regular shoe wear as she tolerates this. However, if she is st ill painful, I would stay in the boot for a little bit longer yet. We will see how she does with working on her exercises. I did let her know that if she is still very stiff when I see her in a monththat we will get her over to physical therapy. We will see how she does with this the next month. She will return in 1 month for re-evaluation and new weight-bearing x-rays of her left ankle. She knows to call with any further questions or concerns. I did refill her ibuprofen today. We did increaseher to the 800 mg dose 3 times a day at her request. VICKEY Aguirre C COORDINATOR documented in this encounter Plan of Treatment Not on file documented as of this encounter Procedures Procedure Name Priority Date/Time Associated Diagnosis Comments XR ANKLE LEFT 3 OR MORE VIEWS Schedule Routine, Read Routine (OP Routine) 12/22/2023 5:38 PM MUSIC COORDINATOR Closed displaced fracture of lateral malleolus of left fibula with routine healing, subsequent encounter documented in this encounter Results * XR Ankle Left 3 or More Views (12/22/2023 5:38 PM MUSIC COORDINATOR) Anatomical Region Laterality Modality Lower Extremities, Ankle Left Compute d Radiography Narrative 12/22/2023 5:38 PM MUSIC COORDINATOR My interpretation of her x-rays today: ??Three views of her left ankle including weight-bearing AP, lateral, and mortise show that the lateral malleolus fracture which was a Anaya B in nature remains in good position. There has been no migration or change the alignment of the fracture fragment. ??This was treated non operatively. ??She appears to have good callus formation present. ??Ankle mortise remains congruent and well aligned. us Charlene HURD IMG XR PROCEDURES Final Resu lt documented in this encounter Visit Diagnoses Diagnosis Closed displaced fracture of lateral malleolus of left fibula with routine healing, subsequent encounter- Primary documented in this encounter Discontinued Medications Medication Sig Discontinue Reason Start Date End Da te ibuprofen (ADVIL,MOTRIN) 600 mg tablet Take 1 tablet (600 mg total) by mouth every 6 (six) hours as needed for pain Take with food Dose adjustment 11/18/2023 12/22/2023 azithromycin (ZITHROMAX) 250 mg tabletIndications:Uppe r respiratory tract infection, unspecified type Take 2 tablets the first day, then 1 tablet daily for 4 days. Therapy completed 07/15/2022 12/22/2023 indomethacin (INDOCIN) 25 mg capsule Indomethacin 25 MG Oral Capsule QTY: 0 capsule Days: 0 Refills: 0 Written: 06/21/19 Patient Instructions: TAKE ONE CAPSULE 3 TIMES A DAY NEEDED FOR PAIN Alternate therapy 06/21/2019 12/22/2023 meloxicam (MOBIC) 15 mg tablet Meloxicam 15 MG Oral Tablet QTY: 0 tablet Days: 0 Refills: 0 Written: 06/21/19 Patient Instructions: TAKE ONE TABLET ONCE A DAY Alternate therapy 06/21/2019 12/22/2023 documented as of this encounter Care Teams Staking Engineer Relationship Specialty Start Date End Date Rosa Shi MD PCP - General Family Medicine 10/20/22 documented as of this encounter
--- OUTSIDE RECORDS SUMMARY | 2024-10-23 02:09 | XMS_ITS | Encounter Summary ---
Author Organization [facility] Healthcare Address [address] [place] [address] Care Team Providers Care Salesperson Shoes Name Role Phone Rosa Shi MD Primary Care Provider [phone] Encounter Details Date Type Department Care Team (Latest Contact Info) Description 10/31/2023 11:28 AM STOCK ROOM MANAGER - 10/31/2023 11:59 PM STOCK ROOM MANAGER Hospital Encounter [facility] [address] [place] [id number] Discharge Disposition: Discharge to home or self [...] on file Legal Sex Female 8:35 AM STOCK ROOM MANAGER Gender Identity Not on file Sexual Orientation [...] by mouth daily flash glucose scanning reader ([employer] 14 DAY READER) [facility] [place] 1 application every 2 (two) weeks 2 [...] Name Priority Date/Time Associated Diagnosis Comments XR TIBIA FIBULA LEFT 2 VIEWS Schedule LARRY, Read LARRY (Appt Today, Awaiting Results) 10/31/2023 11:43 AM STOCK ROOM MANAGER Pain documented in this encounter Results * XR Tibia Fibula Left 2 Views (10/31/2023 11:43 AM STOCK ROOM MANAGER) Anatomical Region Laterality Modality Lower Extremities, Lower Leg Left Com puted Radiography 10/31/2023 11:5 0 AM STOCK ROOM MANAGER Narrative 10/31/2023 11:51 AM STOCK ROOM MANAGER EXAM DESCRIPTION: XR TIBIA FIBULA LEFT 2 VIEWS REASON FOR STUDY: pain ?? Fell x yesterday. ?? Complaints of Pain/Swelling to mainly L knee/ankle. ?? Difficulty bearing weight. ?? No prior injuries/fractures/surgery to LLE. ?? Urgent care wrapped LLE prior to imaging. ?? TECHNIQUE: 2 ??radiographic view(s) of the ??left leg . COMPARISON: None FINDINGS: BONES/JOINTS: Minimally displaced fracture of the distal fibula. ??No additional fractures are seen. ??There are degenerative changes at the knee joint. SOFT TISSUES: Soft tissue swelling is present about the ankle. ?? IMPRESSION: Distal fibular fracture. THIS IS AN ELECTRONICALLY VERIFIED FINAL REPORT 10/31/2023 11:51 AM - Electronically signed by ??Savita Shetty M.D. LL: LL D: ??10/31/2023 11:51 AM T: ??10/31/2023 11:51 AM Report ID: [id number] Reading Location: ??[id number] Procedure Note Savita Shetty MD - 10/31/2023 EXAM DESCRIPTION: XR TIBIA FIBULA LEFT 2 VIEWS REASON FOR STUDY: pain Fell x yesterday. Complaints of Pain/Swelling to mainly L knee/ankle. Difficulty bearing weight. No prior injuries/fractures/surgery to LLE. Urgent care wrapped LLE prior to imaging. TECHNIQUE: 2 radiographic view(s) of the left leg . COMPARISON: None FINDINGS: BONES/JOINTS: Minimally displaced fracture of the distal fibula. No additional fractures are seen. There are degenerative changes at the knee joint. SOFT TISSUES: Soft tissue swelling is present about the ankle. IMPRESSION: Distal fibular fracture. THIS IS AN ELECTRONICALLY VERIFIED FINAL REPORT 10/31/2023 11:51 AM - Electronically signed by Savita Shetty M.D. LL: LL Report ID: [id number] Reading Location: [place] [address] us Minoo Wu EMBEDDED SOFTWARE DESIGN ENGINEER IMG XR PROCEDURES Final Res ult documented in this encounter Visit Diagnoses Not on filedocumented in this encounter Additional Health Concerns Infection Onset Date Last Indicated Resolved Time COVID: Recovered Comment:Added based on recent COVID infection. 09/16/2023 10/31/2023 12/15/2023 3:[address] documented as of this encounter Care Teams Salesperson Shoes Relationship Specialty Start Date End Date Rosa Shi MD PCP - General Family Medicine 10/20/22 documented as of this encounter
--- OUTSIDE RECORDS SUMMARY | 2024-10-23 02:09 | XMS_ITS | Encounter Summary ---
Author Organization [facility] Healthcare Address [address] [facility] [place] [address] Care Team Providers Care Dynamics Ax Technical Architect Name Role Phone Rosa Shi MD Primary Care Provider [phone] Reason for Visit * Diagnostic Imaging (Routine) - Closed Specialty Diagnoses / Procedures Referred By Contac t Referred To Contact Diagnoses Closed displaced fracture of lateral malleolus of left fibula with routine healing, subsequent encounter Procedures XR Ankle Left 3 [place] [address] [address] Phone: tel: fax: Referral ID Status Reason Start Date Expiration Date Visits Re quested Visits Authorized [id number] Closed 12/22/2023 01/20/2025 1 1 Encounter Details Date Type Department Care Team (Latest Contact Info) Description 12/22/2023 2:43 PM WAITER/WAITRESS - 12/22/2023 11:59 PM WAITER/WAITRESS Hospital Encounter [facility] [id number] [address] Discharge Disposition: Discharge to home or self [...] on file Legal Sex Female 8:35 AM WAITER/WAITRESS Gender Identity Not on file Sexual Orientation [...] by mouth daily flash glucose scanning reader ([employer] 14 DAY READER) misc 1 application [...] by mouth 2 (two) times a day. ibuprofen (ADVIL,MOTRIN) 800 mg tablet Take 1 tablet (800 mg total) by mouth every 8 (eight) hours as needed for pain 90 tablet 12/22/2023 4 documented as of this encounter Discharge Disposition Disposition Code Departure Means Destination Discharge to home or self care documented in this encounter Plan of Treatment Not on file documented as of this encounter Procedures Procedure Name Priority Date/Time Associated Diagnosis Comments XR ANKLE LEFT 3 OR MORE VIEWS Schedule Routine, Read Routine (OP Routine) 12/22/2023 5:38 PM WAITER/WAITRESS Closed displaced fracture of lateral malleolus of left fibula with routine healing, subsequent encounter documented in this encounter Results * XR Ankle Left 3 or More Views (12/22/2023 5:38 PM WAITER/WAITRESS) Anatomical Region Laterality Modality Lower Extremities, Ankle Left Compute d Radiography Narrative 12/22/2023 5:38 PM WAITER/WAITRESS My interpretation of her x-rays today: ??Three [...] ??Ankle mortise remains congruent and well aligned. Charlene HURD IMG XR PROCEDURES Final Resu lt documented in this encounter Visit Diagnoses Not on filedocumented in this encounter Care Teams Dynamics Ax Technical Architect Relationship Specialty Start Date End Date Rosa Shi MD PCP - General Family Medicine 10/20/22 documented as of this encounter
--- OUTSIDE RECORDS SUMMARY | 2024-10-23 02:09 | XMS_ITS | Encounter Summary ---
Author Organization [facility] Healthcare Address [address] [place] [address] Care Team Providers Care Carbonation Equipment Tender Name Role Phone Rosa Shi MD Primary Care Provider [phone] Reason for Referral * Diagnostic Imaging (Routine) - Closed Specialty Diagnoses / Procedures Referred By iV t Referred To Contact Diagnoses Closed displaced fracture of lateral malleolus of left fibula with routine healing, subsequent encounter Procedures XR Ankle Left 3+ Vw Charlene Montano [place] [id number] [place] [id number] Phone: tel: fax: [facility] Referral ID Status Reason Start Date Expiration Date Visits Re quested Visits Authorized [id number] Closed 01/21/2024 02/19/2025 1 1 Reason for Visit * Reason Comments Follow-up Post-op Encounter Details Date Type Department Care Team (Late st Contact Info) Description 01/21/2024 11:30 AM CDT Office Visit [facility] Orthopedics and Sports Medicine at [address] [phone] Charlene Montano PA [address] [place] [id number] Closed displaced fracture of lateral malleolus [...] on file Legal Sex Female 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 FOLLOW UP VISIT Subjective CHIEF COMPLAINT She had concerns including Follow-up and Post-op of the Left Ankle. HISTORY OF PRESENT ILLNESS This is a 58-year-old female who is here today to be re-evaluated for her left ankle status post Anaya B lateral malleolus fracture which she sustained just under 3 months ago. She continues to improve. She has been working on her exercises. However, she is a little frustrated as she is still having some swelling and tenderness especially over the lateral side. She is wondering if this is normal and what else we suggest. Pain Assessment Pain Assessment: 0-10 Pain Score: 4 Pain Location: Ankle Pain Orientation: Left Pain Descriptors: Aching, Sore, Discomfort, Tightness Pain Frequency: Positional MEDICATIONS She has a current medication list which includes the following prescription(s): acetaminophen-codeine, advair diskus, allopurinol, amlodipine, anastrozole, atorvastatin, blood glucose diagnostic, cholecalciferol, clobetasol, clonidine, cyanocobalamin, flash glucose scanning reader, glipizide, ibuprofen, lisinopril- hydrochlorothiazide, metformin, nystatin, trulicity, and turmeric root extract. REVIEW OF SYSTEMS Review of Systems Constitutional: Negative for chills and fever. HENT: Negative for hearing loss. Eyes: Negative for visual disturbance. Respiratory: Negative for cough and shortness of breath. Cardiovascular: Negative for chest pain and palpitations. Gastrointestinal: Negative for constipation, diarrhea, nausea and vomiting. Endocrine: Negative for cold intolerance, heat intolerance, polydipsia and polyuria. Genitourinary: Negative for difficulty urinating, enuresis and urgency. Musculoskeletal: See HPI Skin: Negative for rash. Neurological: Negative for seizures and weakness. Hematological: Does not bruise/bleed easily. Psychiatric/Behavioral: Negative for dysphoric mood. The patient is not nervous/anxious. Objective PHYSICAL EXAM Ht 157.5 cm (5' 2.01 ) BMI 38.40 kg/m?? She is alert and oriented x3. She has in no acute distress. She is cooperative with the exam. She appears to be doing better with range of motion. However, she is still having some difficulty with dorsiflexion as well as eversion. Plantar flexion is almost equal to her other side and inversion is almost equal to her other side. She does state that she still has a little bit of tenderness with inversion as well. She does have some mild to moderate edema throughout the foot and ankle most pronounced over the lateral malleolus. This is as expected. She still has a little bit of tenderness directly over the fracture itself as well. However, this is improving. She is ambulating more easily although she still limps intermittently to her left lower extremity as expected. REVIEW OF X-RAYS/STUDIES/LABS XR Ankle Left 3+ Vw My interpretation of her x-rays today: Three views of her left ankle including weight-bearing AP, lateral, and mortise show that the Anaya B lateral malleolus fracture remains in good position. Therehas been no migration or failure of the fracture fragment. There is continued callus formation present. This appears to be bridging now. Assessment/Plan Rosa was seen today for follow-up and post-op. Diagnoses and all orders for this visit: Closed displaced fracture of lateral malleolus of left fibula with routine healing, subsequent encounter - XR Ankle Left 3+ Vw PLAN This is a 58-year-old female who is here today to be re-evaluated for her left ankle status post Anaya B lateral malleolus fracture which she sustained just under 3 months ago. She appears to be doing better. She is working on her exercises. I have given her new foot and ankle conditioning program exercises to do from the [employer] website. We will see how she does with this. This will include strengthening for her. I believe this should help significantly. We also discussed compression stockings. We will see how she does with this as well. She will follow up in 6 weeks for re-evaluation. She will continue to work on her exercises. She does not need new x-rays at that time unless something has changed. She may continue to work back up to more of her normal activities as well. She knows to call with any further questions or concerns. VICKEY Aguirre documented in this encounter Plan of Treatment Not on file documented as of this encounter Procedures Procedure Name Priority Date/Time Associated Diagnosis Comments XR ANKLE LEFT 3 OR MORE VIEWS Schedule Routine, Read Routine (OP Routine) 01/21/2024 3:15 PM CDT Closed displaced fracture of lateral malleolus of left fibula with routine healing, subsequent encounter documented in this encounter Results * XR Ankle Left 3+ Vw (01/21/2024 3:15 PM CDT) Anatomical Region Laterality Modality Lower Extremities, Ankle Left Compute d Radiography Narrative 01/21/2024 3:15 PM CDT My interpretation of her x-rays today: ??Three views of her left ankle including weight-bearing AP, lateral, and mortise show that the Anaya B lateral malleolus fracture remains in good position. ??There has been no migration or failure of the fracture fragment. ??There is continued callus formation present. ??This appears to be bridging now. us Charlene HURD IMG XR PROCEDURES Final Resu lt documented in this encounter Visit Diagnoses Diagnosis Closed displaced fracture of lateral malleolus of left fibula with routine healing, subsequent encounter- Primary documented in this encounter Care Teams Carbonation Equipment Tender Relationship Specialty Start Date End Date Rosa Shi MD PCP - General Family Medicine 10/20/22 documented as of this encounter
--- OUTSIDE RECORDS SUMMARY | 2024-10-23 02:09 | XMS_ITS | Encounter Summary ---
Author Organization [facility] Healthcare Address [address] [facility] [address] [place] [address] Care Team Providers Care Press Assistant Name Role Phone Rosa Shi MD Primary Care Provider [phone] Reason for Visit * Reason Comments Nasal Congestion Fatigue/ Ear pain (R ight) nasel congestion/ productive diarrhea. BA exposed/covid Encounter Details Date Type Department Care Team (Late st Contact Info) Description 09/06/2023 9:00 AM BOILER OPERATORS SUPERVISOR Office Visit [facility] Convenient Care at [address] [place] [address] Cathy Taylor, VICKEY [address] [place], [place] [id number] COVID-19 (Primary Dx) Social History Tobacco Use Types Packs/Day Years Used Date Smoking Tobacco: Never Smokeless Tobacco: Never Alcohol Use Standard Drinks/Week Comments No 0 (1 standard drink = 0.6 oz pur e alcohol) PHQ-2 Answer Date Recorded PHQ-2 Score 1 11/23/2019 Comments No Sex and Gender Information Value Date Recorded Sex Assigned at Not on file Legal Sex Female 8:35 AM BOILER OPERATORS SUPERVISOR Gender Identity Not on file Sexual Orientation Not on file documented as of this encounter Last Filed Vital Signs Vital Sign Reading Time Taken Comments Blood Pressure 150/80 09/06/2023 9:05 AM BOILER OPERATORS SUPERVISOR Pulse 82 09/06/2023 9:05 AM BOILER OPERATORS SUPERVISOR Temperature 36.8 ??C (98.3 ??F) 09/06/2023 9:05 AM CS T Respiratory Rate 16 09/06/2023 9:05 AM BOILER OPERATORS SUPERVISOR Oxygen Saturation 96% 09/06/2023 9:05 AM BOILER OPERATORS SUPERVISOR Inhaled Oxygen Concentration - - Weight 98.4 kg (217 lb) 09/06/2023 9:05 AM BOILER OPERATORS SUPERVISOR Height 157.5 cm (5' 2 ) 09/06/2023 9:05 AM BOILER OPERATORS SUPERVISOR Body Mass Index 39.69 09/06/2023 9:05 AM BOILER OPERATORS SUPERVISOR documented in this encounter Patient Instructions * Patient Instructions* Cathy Taylor PA - 09/06/2023 9:00 AM BOILER OPERATORS SUPERVISOR You must isolate for 5 days after the day of your symptom onsetor until your symptoms are improvingand you have gone 24 hours without a fever without the use of medications, whichever happens last. You must then wear a well fitted mask for 5 additional days any time you are in public or around others. You can take Coricidin and use Flonase, a Neti pot, and a humidifier as directed for congestion. The Coricidin is also for your cough. You can take Tylenol or ibuprofen as directed for fever and aches/pains. Make sure to drink plenty of fluids and get plenty of rest. Follow-up with your primary care provider. Go to the ER if you develop difficulty swallowing, chest pain, or any other concerning symptoms. ER OPERATORS SUPERVISOR documented in this encounter Progress Notes * Cathy Taylor PA - 09/06/2023 9:00 AM CST Images from the original note were not included. Subjective/Objective Patient ID: Rosa Babb is a 57 y.o. female. Chief Complaint Nasal Congestion (Fatigue/ Ear pain (Right) nasel congestion/ productive diarrhea. BA exposed/covid) Patient is a 57-year-old female who presents for evaluation of loss of appetite, fatigue, fever, right ear pain, rhinorrhea, postnasal drip, congestion, cough, body aches, headache, onset 2 days ago.She also notes that she had 1 episode of diarrhea. She denies chest pain, vomiting, abdominal pain.She reports COVID exposure last week. Review of Systems All systems reviewed and are negative or non contributory for this patient's presentation today other than as stated in the HPI. Physical Exam Constitutional: General: She is not in acute distress. Appearance: Normal appearance. She is obese. She is not ill-appearing or toxic-appearing. HENT: Head: Normocephalic. Right Ear: Tympanic membrane, ear canal and external ear normal. Left Ear: Tympanic membrane, ear canal and external ear normal. Nose: Nose normal. Mouth/Throat: Mouth: Mucous membranes are moist. Pharynx: Oropharynx is clear. No oropharyngeal exudate or posterior oropharyngeal erythema. Eyes: General: Lids are normal. Conjunctiva/sclera: Conjunctivae normal. Cardiovascular: Rate and Rhythm: Normal rate and regular rhythm. Heart sounds: Murmur (Systolic) heard. Pulmonary: Effort: Pulmonary effort is normal. Breath sounds: Normal breath sounds and air entry. Musculoskeletal: General: Normal range of motion. Cervical back: Normal range of motion and neck supple. Skin: General: Skin is warm and dry. Neurological: General: No focal deficit present. Mental Status: She is alert and oriented to person, place, and time. Mental status is at baseline. Psychiatric: Mood and Affect: Mood normal. Behavior: Behavior normal. Vitals: 09/06/23 0905 BP: 150/80 BP Location: Right arm Patient Position: Sitting Pulse: 82 Resp: 16 Temp: 36.8 ??C (98.3 ??F) TempSrc: Oral SpO2: 96% Weight: 98.4 kg (217 lb) Height: 157.5 cm (5' 2 ) Assessment/Plan You must isolate for 5 days after the day of your symptom onsetor until your symptoms are improvingand you have gone 24 hours without a fever without the use of medications, whichever happens last. You must then wear a well fitted mask for 5 additional days any time you are in public or around others. You can take Coricidin and use Flonase, a Neti pot, and a humidifier as directed for congestion. The Coricidin is also for your cough. You can take Tylenol or ibuprofen as directed for fever and aches/pains. Make sure to drink plenty of fluids and get plenty of rest. Follow-up with your primary care provider. Go to the ER if you develop difficulty swallowing, chest pain, or any other concerning symptoms. Diagnoses and all orders for this visit: COVID-19 (Primary) - POC Influenza A/B, COVID-19 antigen Recent Results (from the past 4 hour(s)) POC Influenza A/B, COVID-19 antigen Collection Time: 09/06/23 9:10 AM Result Value Ref Range Influenza A Ag, POC Negative Negative Influenza B Ag, POC Negative Negative COVID-19 Ag POC Positive (A) Presumptive Negative, Invalid Patient Education: Disposition Treatment plan including expectations, follow up, and return precautions discussed with patient/parent, verbalizes understanding. Medication dosage, use, and potential adverse reactions discussed with patient/parent. Advised to follow up with PCP if symptoms do not resolve as expected or sooner if condition worsens. Signs/symptoms warranting ER evaluation reviewed. Patient and/or guardian was given an opportunity to ask questions, questions answered. VICKEY Paul ER OPERATORS SUPERVISOR ER OPERATORS SUPERVISOR documented in this encounter Plan of Treatment Not on file documented as of this encounter Procedures Procedure Name Priority Date/Time Associated Diagnosis Comments POC INFLUENZA A/B, COVID-19 ANTIGEN Routine 09/06/2023 9:10 AM BOILER OPERATORS SUPERVISOR COVID-19 documented in this encounter Results * (ABNORMAL) POC Influenza A/B, COVID-19 antigen (09/06/2023 9:10 AM BOILER OPERATORS SUPERVISOR) [facility] Influenza A Ag, POC Negative Negative [facility] Influenza B Ag, POC Negative Negative [facility] COVID-19 Ag POC Positive(A) Presumptive Negative, Invalid [facility] Swab 09/06/2023 9:10 AM BOILER OPERATORS SUPERVISOR us Cathy HURD POINT OF CARE TEST ORDERABLES Final Result [place] [id number] [address] [phone] documented in this encounter Visit Diagnoses Diagnosis COVID-19- Primary documented in this encounter Additional Health Concerns Infection Onset Date Last Indicated Resolved Time COVID: Suspected 09/06/2023 09/06/2023 09/06/2023 9:15 AM BOILER OPERATORS SUPERVISOR COVID19 09/06/2023 09/06/2023 09/16/2023 3:05 AM BOILER OPERATORS SUPERVISOR documented as of this encounter Care Teams Press Assistant Relationship Specialty Start Date End Date Rosa Shi MD PCP - General Family Medicine 10/20/22 documented as of this encounter
--- OUTSIDE RECORDS SUMMARY | 2024-10-23 02:09 | XMS_ITS | Clinical Summary ---
Author Organization [facility] Address [address] [place] [address] Care Team Providers Care Identification Printing Machine Setter Name Role Phone Kevin Shi MD Primary Care Provider [phone] Allergies Active Allergy Reactions Criticality Noted Date Comments Latex Rash Medium 05/07/2022 Medications cyanocobalamin (Vitamin B-12) 500 mcg tabletIndicati ons:Prevention of Vitamin B12 Deficiency Take 1 tablet (500 mcg total) by mouth daily Active turmeric root extract 500 mg capsule Take by mouth 2 (two) times a day. Active flash glucose scanning reader ([employer] ANDIE 14 DAY READER) misc 1 application every 2 (two) weeks 2 each 5 9 Active lisinopril-hyd roCHLOROthiazi de (ZESTORETIC) 20-12.5 mg per tablet Take 2 tablets by mouth daily 180 tablet 1 9 Active nystatin cream APPLY DIRECTED A 50 50 MIX WITH TRIAMCINOLONE CREAM TOPICALLY TO AFFECTED AREA THREE TIMES DAILY 0 Active clobetasoL (TEMOVATE) 0.05 % cream DIRECTED APPLY TWICE DAILY TO AFFECTED AREA(S) FOR 1 WEEK THEN 1 TIME DAILY FOR 1 WEEK THEN 2 TIMES WEEKLY 0 Active amLODIPine (NORVASC) 10 mg tablet Take 1 tablet (10 mg total) by mouth daily 90 tablet 1 0 Active glipiZIDE (GLUCOTROL) 5 mg tablet Take 1 tablet (5 mg total) by mouth daily 90 tablet 3 0 Active Additional Information Patient not taking.Reported on 10/20/2022 allopurinoL (ZYLOPRIM) 100 mg tablet Take 1 tablet (100 mg total) by mouth daily 90 tablet 1 0 Active cloNIDine (CATAPRES) 0.1 mg tablet cloNIDine HCl 0.1 MG Oral Tablet QTY: 0 tablet Days: 0 Refills: 0 Written: 06/21/19 Patient Instructions: TAKE ONE TABLET TWICE A DAY 9 Active Advair Diskus 500-50 mcg/dose diskus inhaler USE 1 INHALATION TWICE A DAY 180 each 3 0 Active anastrozole (ARIMIDEX) 1 mg tablet 2 Active atorvastatin (LIPITOR) 20 mg tablet Take 1 tablet (20 mg total) by mouth daily 1 Active blood glucose diagnostic strip Diagnosis: Diabetes type 2 Blood testing frequency: 3 times a day 1 Active cholecalcifero l (VITAMIN D-3) 1,000 unit capsule Take by mouth daily Active metFORMIN (GLUCOPHAGE) 500 mg tablet Take 500 mg by mouth daily 1 Active acetaminophen- codeine (TYLENOL with CODEINE #3) 300-30 mg per tablet Take 1-2 tablets by mouth every 4-6 hours as needed for pain control. 40 tablet 4 Active Trulicity 0.75 mg/0.5 mL pen injector 0.5 mL (0.75 mg total) by other route once a week 3 Active albuterol HFA (PROVENTIL HFA,VENTOLIN HFA,PROAIR HFA) 90 mcg/actuation inhaler INHALE 1 PUFF BY MOUTH 4 TIMES DAILY NEEDED FOR SHORTNESS OF BREATH OR WHEEZING 4 Active Active Problems Problem Noted Date Diagnosed Date Closed displaced fracture of lateral malleolus of fibula with routine healing 01/21/2024 Malignant neoplasm of left female breast 021 Hyperlipidemia 12/01/2020 COVID-19 11/28/2020 Menopause syndrome 06/14/2018 Depression 03/10/2014 Overview (01/27/2017): DEPRESSIVE DISORDER NEC Assessment & Plan (11/24/2019 8:07 PM GRAVITY PROSPECTING OPERATOR HELPER): History of depression. Currently listed on patient's problem list. She is not currently on medication. I had a long conversation with patient about depression, signs and symptoms of depression and treatment options. Patient denies true depression and thinks she handles stress well. Doesn't recognize her behavior as depressive behavior or thoughts. States she doesn't want to take medication and doesn't see the need because it will not change anything. I asked her to at least talk to her son and see if he recognizes any depression symptoms in her Type 2 diabetes mellitus, wi adilia long-term current use of insulin 03/10/2014 Overview (07/15/2022): DMII WO CMP NT ST UNCNTR Assessment & Plan (11/24/2019 8:01 PM GRAVITY PROSPECTING OPERATOR HELPER): Uncontrolled. Due for repeat hga1c. We discussed in depth that she needs to work on diet, weight loss and exercise if she wants to feel healthier, take less medication, and feel less tired. Order given for labs. Continue glipizide. Consider further treatment , endocrinology referral pending lab results. Assessment & Plan (07/06/2019 8:52 AM CDT): Diabetes is unchanged. Reminded to bring in blood sugar diary at next visit. Dietary recommendations for ADA diet. Discussed foot care. Diabetes will be reassessed in 6 months We discussed last hemoglobin A1c. Order given for repeat hemoglobin A1c. Discussed checking blood sugars. Patient is adamant that she cannot stick her finger on any kind of daily basis. She was interested and the [employer] 14 day reader and the sample reader was given with refills on the reader. Patient was still not sure about applying the reader ever 14 days.. She will check cost on the reader refills and considerate Asthma 03/10/2014 Overview (01/27/2017): ASTHMA NOS Hyperlipidemia due to type 2 diabetes mellitus 0 03/10/2014 Overview (01/27/2017): PURE HYPERCHOLESTEROLEM Assessment & Plan (11/24/2019 8:02 PM GRAVITY PROSPECTING OPERATOR HELPER): Due for repeat lipid panel. Ordered today. Not currently on statin. F/u 6-7 weeks with lab results Assessment & Plan (07/06/2019 8:54 AM CDT): Lipid abnormalities are improving with treatment. Pharmacotherapy as ordered. Lipids will be reassessed in 6 months. Atopic rhinitis 03/10/2014 Overview (01/27/2017): ALLERGIC RHINITIS NOS Insomnia 03/10/2014 Overview (07/15/2022): PERSISTENT INSOMNIA HTN (hypertension) 03/10/2014 Overview (07/15/2022): BENIGN HYPERTENSION Assessment & Plan (11/24/2019 7:58 PM GRAVITY PROSPECTING OPERATOR HELPER): Elevated in office today as patient is upset. She also takes all of her medication at bedtime. Clonidine makes her fatigued. Will discontinue clonidine. Increase amlodipine to 10mg daily. F/u 6-7 weeks Assessment & Plan (07/06/2019 8:53 AM CDT): Hypertension is improving with treatment. Continue current medications. Blood pressure will be reassessed 6 months. S/P YEHUDA (total abdominal hysterectomy) 2 Resolved Problems Problem Noted Date Diagnosed Date Resolved Date Acute non-recurrent maxillary sinusitis 11/17/2018 07/04/2019 Lichen 03/10/2014 11/24/2019 Overview (01/27/2017): LICHEN NOS Immunizations Name Administration Dates Next Due Influenza, Quadrivalent, Spl it, Preservative Free, Intramuscular 08/01/2023,10/20/2017 Influenza, Split 10/21/2011,08/04/2010 Influenza, Trivalent, IM (MDV) 08/01/2014 Influenza, Unspecified 07/25/2019,07/25/2018 Pneumococcal Polysaccharide PPV23 08/04/2010 Tdap 08/04/2010 Surgical History Surgery Date Site/Laterality Comments TUBAL LIGATION Bilateral tubal ligation HYSTERECTOMY Medical History Medical History Date Comments Diabetes mellitus (HCC) Asthma Malignant neoplasm of left female breast (HCC) Family History Medical History Relation Name Comments Diabetes type II Father Diabetes -T ype II; Hypertension Father Hypertension; Kidney disease Father Renal disease ; Stroke Father Stroke; Diabetes type II Mother Diabetes -T ype II; Hypertension Mother Hypertension; Relation Name Status Comments Father (Age 72) Mother (Age 73) Social History Tobacco Use Types Packs/Day Years Used Date Smoking Tobacco: Never Smokeless Tobacco: Never Tobacco Cessation:Counseling Given: Not Answered Alcohol Use Standard Drinks/Week Comments No 0 (1 standard drink = 0.6 oz pur e alcohol) PHQ-2 Answer Date Recorded PHQ-2 Score 1 11/23/2019 Comments No Sex and Gender Information Value Date Recorded Sex Assigned at Not on file Legal Sex Female 8:35 AM GRAVITY PROSPECTING OPERATOR HELPER Gender Identity Not on file Sexual Orientation Not on file Occupation Industry Job Start Date Job End Date Soon to be retired from [employer] March 09 Not on file Not on file Not on file Obstetrics History Para Term AB IAB SAB Ectopic Multiple Livin g Live Births 1 1 1 Date Outcome GA Total Labor Labor/2nd/3rd Weight Sex Type Anes PTL Herminia A1 A5 Name Clin Term Last Filed Vital Signs Vital Sign Reading Time Taken Comments Blood Pressure 144/80 11/03/2023 8:56 AM GRAVITY PROSPECTING OPERATOR HELPER Pulse 82 09/06/2023 9:05 AM GRAVITY PROSPECTING OPERATOR HELPER Temperature 36.8 ??C (98.3 ??F) 09/06/2023 9:05 AM CS T Respiratory Rate 16 09/06/2023 9:05 AM GRAVITY PROSPECTING OPERATOR HELPER Oxygen Saturation 96% 09/06/2023 9:05 AM GRAVITY PROSPECTING OPERATOR HELPER Inhaled Oxygen Concentration - - Weight 95.3 kg (210 lb) 03/06/2024 2:10 PM CDT Height 157.5 cm (5' 2 ) 03/06/2024 2:10 PM CDT Body Mass Index 38.41 03/06/2024 2:10 PM CDT Plan of Treatment Health Maintenance Due Date Last Done Comments Albumin Creatinine Ratio, Urine 1965 Hepatitis C Screening 1965 Hepatitis B Screening 1981 Regular Well Visit/Exam 18-64 1981 Zoster Vaccine (1 of 2) 1982 Pneumococcal vaccine <65 (2 of 2 - PCV) 08/04/2011 08/04/2010 Lipid Panel 04/20/2019 04/20/2018, 09/24, 03/18/2017, Additional history exists Hemoglobin A1C 08/15/2019 02/13/2019, 01/24, 08/18/2018, Additional history exists eGFR 02/14/2020 02/13/2019, 03/26, 10/05/2017, Additional history exists Foot Exam 07/04/2020 07/04/2019, 10/20/2017 DTaP/Tdap/Td Vaccine (2 - Td or Tdap) 08/04/2020 08/04/2010 Dilated Eye Exam 09/02/2020 09/02/2019, 08/2018, 11/30/2016 Depression Screening 11/23/2020 11/23/2019, 03/29/2019, 04/18/2018, Additional history exists Breast Cancer Screening-Mammogram 10/21/2022 10/21/2021, 04/18/2019, 04/09/2018, Additional history exists Influenza Vaccine (#1) 2024 3, 07/25/2019, 07/25/2018, Additional history exists Colon Cancer Screening-Colonoscopy 11/12/2024 11/12/2014, 11/12/2014, 11/12/2014 Colon Cancer Screening-CT Colonography Discontinued 11/12/2014, 11/12/2014, 11/12/2014 Colon Cancer Screening-DNA Stool Discontinued 11/12/2014, 11/12/2014, 11/12/2014 Colon Cancer Screening-FIT Discontinued 11/12, 11/12/2014, 11/12/2014 Colon Cancer Screening-Sigmoidoscopy Discontinued 11/12/2014, 11/12/2014, 11/12/2014 Procedures Procedure Name Priority Date/Time Associated Diagnosis Comments HM DIABETES EYE EXAM Routine 09/02/2019 SCREENING MAMMOGRAM BILATERAL W SHAY Schedule Routine, Read Routine (OP Routine) 04/18/2019 10:15 AM CDT Breast screening, unspecified EGFR Routine 02/13/2019 11:52 AM CDT Type 2 diabetes mellitus with hyperglycemia, unspecified whether jail insulin use ([facility]) HEMOGLOBIN A1C Routine 02/13/2019 11:52 AM CDT Type 2 diabetes mellitus with hyperglycemia, unspecified whether long term care administrator insulin use (CMS/HCC) LIPID PANEL Routine 04/20/2018 10:14 AM CDT Type 2 diabetes mellitus with hyperglycemia, unspecified whether long term care administrator insulin use (CMS/HCC) COLONOSCOPY IMAGES 11/12/2014 from Last 3 Months or Most Recently Relevant to Health Maintenance Results * DIABETES EYE EXAM (09/02/2019) Diabetic Eye Exam Normal [facility] Provider MD HEALTH MAINTENANCE Final Result * Screening Mammogram Bilateral W Shay (04/18/2019 10:15 AM CDT) Anatomical Region Laterality Modality Breast Bilateral Mammography 04/18/2019 10:2 0 AM CDT Impressions 04/18/2019 10:21 AM CDT 1. ??NO DEFINITIVE MAMMOGRAPHIC EVIDENCE OF MALIGNANCY. 2. ??ANNUAL FOLLOW-UP RECOMMENDED. BI-RADS 1 Electronically signed by: Keith Anguiano M.D Narrative 04/18/2019 10:21 AM CDT SCREENING MAMMOGRAM BILATERAL W SHAY HISTORY: Encounter for screening mammogram for malignant neoplasm of breast. TECHNIQUE: 2 views of each breast were obtained with bilateral breast tomosynthesis. COMPARISON: 04/09/2018. FINDINGS: Scattered parenchymal densities bilaterally. No suspicious mass or calcification is seen to suggest mammographic evidence of malignancy. Digital technology was employed plus computer aided detection software (R2) was utilized in interpretation of these images. ??This facility utilizes a reminder system to notify patient's of yearly mammograms. us Polina Rajput MD IMG MAMMO PROCEDURES F inal Result * eGFR (02/13/2019 11:52 AM CDT) eGFR 100 mL/min/1.7 3 m2 JEFE FOX (BERTA) Comment: Interpretive Data Reference Interval Normal ?>/= 90 mL/min/1.73m2 Mildly decreased* ? 60 - 89 mL/min/1.73m2 Mildly to moderately decreased ?45 - 59 mL/min/1.73m2 Moderately to severely decreased ??30 - 44 mL/min/1.73m2 Severely decreased ?15 - 29 mL/min/1.73m2 Kidney Failure ?< 15 ??mL/min/1.73m2 *Relative to young adult level If -Malawian multiply value by 1.16. Estimated glomerular filtration rate is determined by the CKD-EPI equation recommended by the National Kidney Foundation (KDIGO 2012 Clinical Practice Guideline for the Evaluation and Management of Chronic Kidney Disease. Kidney Intnl Suppl Oct 2012;3:1). The CKD-EPI equation should not be used for patients with unstable renal function and has not been validated in children and those over 70. Current interpretive data was last reviewed 2016. Blood specimen (specimen) 02/13/2019 11:52 AM CDT 02/13/2019 2:22 PM CDT Narrative JEFE FOX (BERTA) - 02/13/2019 2:40 PM CDT Polina Rajput MD LAB BLOOD ORDERABLES F inal Result JEFE CABA) [address] [facility] Department [place] [address] * (ABNORMAL) Hemoglobin A1c (02/13/2019 11:52 AM CDT) Hgb A1C 7.6(H) 4.0 - 5.6 % JEFE CABA) Estimated Average Glucose 171 mg/dL JEFE CABA) Comment: The ADA recommends reporting an estimated Average Glucose (eAG) with all Hemoglobin A1c results using the equation derived from a study of 507 normal and diabetic adults. ??Minority populations were underrepresented and children were not included. ?? (Diabetes Care 31:9428-7136, 2008). ??The eAG is not equivalent to a fasting glucose. Blood specimen (specimen) 02/13/2019 11:52 AM CDT 02/13/2019 2:22 PM CDT Narrative JEFE FOX (BERTA) - 02/13/2019 2:48 PM CDT Polina Rajput MD LAB BLOOD ORDERABLES F inal Result JEFE FOX (BERTA) [address] [facility] Department [place] [address] * Lipid panel (04/20/2018 10:14 AM CDT) Cholesterol 196 40 - 199 mg/dL JEFE FOX (BERTA) Comment: Interpretive Data Desirable: ??Less than 200 mg/dl ? Borderline High: ?200 - 239 mg/dl ? High: ??Greater than ?? 239 mg/dl Current interpretive data was last revised on 2014. Triglycerides 94.0 <=150.0 mg/dL JEFE FOX (BERTA) Comment: Interpretive Data Normal: ? Less than 150 mg/dl Borderline high: ??150-199 mg/dl ?? High: ? 200-499 mg/dl ? Very high: ??Greater than or equal to 500 mg/dl Current interpretive data was last revised on 2017. HDL 56 40 - 60 mg/dL JEFE FOX (BERTA) Comment: Interpretive Data Low HDL Cholesterol: ? Less than 40 mg/dl Normal HDL Cholesterol: ??40-60 mg/dl High HDL Cholesterol: ?Greater than 60 mg/dl Current interpretive data was last revised on 2014. LDL, calculated 121 mg/dL NAYELY FOX (BERTA) Comment: Interpretive Data Optimal ? Less than 100 mg/dL ? Near optimal/Above optimal ??100 - 129 mg/dL ? Borderline high ? 130 - 159 mg/dL ? High ?160 - 189 mg/dL ? Very high ? Greater than or = 190 mg/dL ? LDL values are not valid when the total Triglyceride is greater than 300 mg/dL. Current interpretive data was last revised on 2014. Non-HDL Cholesterol 140 mg/dL JEFE FOX (PARMA) Comment: Interpretive Data Optimal ? Less than 130 mg/dL Low Risk ?130 - 159 mg/dL Moderate Risk ? 160 - 189 mg/dL High Risk ? Greater than or equal to 190 mg/dL Current interpretive data was last revised on 2014. Blood specimen (specimen) 04/20/2018 10:14 AM CDT 04/20/2018 2:15 PM CDT Narrative JEFE RUDDY (BERTA) - 04/20/2018 2:56 PM CDT Has the patient been fasting for 8 hours or more?->Yes Has the patient fasted?->Yes Polina Rajput MD LAB BLOOD ORDERABLES F inal Result JEFE RUDDY MELCHORN) [address] [facility] Department [place] [address] * COLONOSCOPY IMAGES (11/12/2014) Anatomical Region Laterality Modality Other Narrative 11/12/2014 Ordered by an unspecified provider. us Historical Provider GI PROCEDURE ORDERABLES F inal Result from Last 3 Months or Most Recently Relevant to Health Maintenance Insurance [facility] CHOICE PLUS Member Subscriber Plan / Payer (Ef fective 2016-Present) Name:Kevin Chakraborty Relation to Subscriber:Self Name:Kevin Chakraborty Payer ID:[id number] (NAIC) Type:[facility] HMO/PPO Address: [address] CHOICE PLUS [facility] CHOICE PLUS [facility] CHOICE PLUS Care Teams Identification Printing Machine Setter Relationship Specialty Start Date End Date Kevin Shi MD PCP - General Family Medicine 10/20/22
--- OUTSIDE RECORDS SUMMARY | 2024-10-23 02:09 | XMS_ITS | Encounter Summary ---
Author Organization [facility] Address [address] [place] [address] Care Team Providers Care Vaccine Customer Representative Name Role Phone Rosa Shi MD Primary Care Provider [phone] Reason for Visit * Diagnostic Imaging (Routine) - Closed Specialty Diagnoses / Procedures Referred By Contac t Referred To Contact Diagnoses Pain Procedures XR Knee Left 1 or 2 Views Minoo Wu NP [address] [place] [address] Phone: tel:[phone] fax:[phone] [address] Referral ID Status Reason Start Date Expiration Date Visits Re quested Visits Authorized [id number] Closed 10/31/2023 11/29/2024 1 1 Encounter Details Date Type Department Care Team (Latest Contact Info) Description 10/31/2023 11:28 AM CHEMISTRY RESEARCH ASSISTANT - 10/31/2023 11:59 PM CHEMISTRY RESEARCH ASSISTANT Hospital Encounter [facility] [address] [place] [id number] Discharge Disposition: Discharge to home or self [...] on file Legal Sex Female 8:35 AM CHEMISTRY RESEARCH ASSISTANT Gender Identity Not on file Sexual Orientation [...] by mouth daily flash glucose scanning reader ([employer] ANDIE 14 DAY READER) [facility] [place] application every 2 (two) weeks 2 [...] Name Priority Date/Time Associated Diagnosis Comments XR KNEE LEFT 1 OR 2 VIEWS Schedule LARRY, Read LARRY (Appt Today, Awaiting Results) 10/31/2023 11:43 AM CHEMISTRY RESEARCH ASSISTANT Pain documented in this encounter Results * XR Knee Left 1 or 2 Views (10/31/2023 11:43 AM CHEMISTRY RESEARCH ASSISTANT) Anatomical Region Laterality Modality Lower Extremities, Knee Left Computed Radiography 10/31/2023 11:4 7 AM CHEMISTRY RESEARCH ASSISTANT Narrative 10/31/2023 11:48 AM CHEMISTRY RESEARCH ASSISTANT EXAM DESCRIPTION: XR KNEE LEFT 1 OR 2 VIEWS REASON FOR STUDY: pain ?? Fell x yesterday. ?? Complaints of Pain/Swelling to mainly L knee/ankle. ?? Difficulty bearing weight. ?? No prior injuries/fractures/surgery to LLE. ?? Urgent care wrapped LLE prior to imaging. ? TECHNIQUE: 2 ??radiographic view(s) of the ??left knee . COMPARISON: None FINDINGS: BONES/JOINTS: There is no acute fracture, malalignment or osseous abnormality. There is osteophyte formation joint space narrowing involving the patellofemoral and medial femorotibial joints. SOFT TISSUES: There is a small suprapatellar joint effusion. ?? IMPRESSION: Degenerative joint disease. Small joint effusion. THIS IS AN ELECTRONICALLY VERIFIED FINAL REPORT 10/31/2023 11:48 AM - Electronically signed by ??Savita Shetty M.D. LL: LL D: ??10/31/2023 11:48 AM T: ??10/31/2023 11:48 AM Report ID: [id number] Reading Location: ??[id number] Procedure Note Savita Shetty MD - 10/31/2023 EXAM DESCRIPTION: XR KNEE LEFT 1 OR 2 VIEWS REASON FOR STUDY: pain Fell x yesterday. Complaints of Pain/Swelling to mainly L knee/ankle. Difficulty bearing weight. No prior injuries/fractures/surgery to LLE. Urgent care wrapped LLE prior to imaging. TECHNIQUE: 2 radiographic view(s) of the left knee . COMPARISON: None FINDINGS: BONES/JOINTS: There is no acute fracture, malalignment or osseousabnormality. There is osteophyte formation joint space narrowing involving the patellofemoral and medial femorotibial joints. SOFT TISSUES: There is a small suprapatellar joint effusion. IMPRESSION: Degenerative joint disease. Small joint effusion. THIS IS AN ELECTRONICALLY VERIFIED FINAL REPORT 10/31/2023 11:48 AM - Electronically signed by Savita Shetty M.D. LL: LL Report ID: [id number] Reading Location: [id number] Minoo Wu RESEARCH AND DEVELOPMENT TESTER IMG XR PROCEDURES Final Res ult documented in this encounter Visit Diagnoses Not on filedocumented in this encounter Additional Health Concerns Infection Onset Date Last Indicated Resolved Time COVID: Recovered Comment:Added based on recent COVID infection. 09/16/2023 10/31/2023 12/15/2023 3:[address] documented as of this encounter Care Teams Vaccine Customer Representative Relationship Specialty Start Date End Date Rosa Shi MD PCP - General Family Medicine 10/20/22 documented as of this encounter
--- OUTSIDE RECORDS SUMMARY | 2024-10-23 02:09 | XMS_ITS | Encounter Summary ---
Author Organization [facility] Healthcare Address [address] [place] [address] Care Team Providers Care Service Specialist Name Role Phone Rosa Shi MD Primary Care Provider [phone] Reason for Visit * Reason Comments Fracture Follow-up Encounter Details Date Type Department Care Team (Late st Contact Info) Description 03/06/2024 2:30 PM CDT Office Visit [facility] Medical Group Orthopedics and Sports Medicine at [facility] [address] [phone] [place] Montano [place] [id number] [place] [address] Closed displaced fracture of lateral malleolus [...] on file 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 FOLLOW UP VISIT Subjective CHIEF COMPLAINT She had concerns including Fracture and Follow-up of the Left Ankle. HISTORY OF PRESENT ILLNESS Year old female here today to be re-evaluated for her left Anaya B lateral malleolus fracture whichwas treated non operatively. She is doing better. She is back to doing almost all of her normal activities. She is ambulating better. She does have some intermittent changes and swelling which she says is better as well. She is wondering if there is anything else she needs to do at this point. Pain Assessment Pain Assessment: 0-10 Pain Score: 4 Pain Location: Ankle Pain Orientation: Left Pain Descriptors: Aching Pain Frequency: Intermittent Pain Onset: Ongoing Clinical Progression: Not changed Result of Injury: No MEDICATIONS She has a current medication list which includes the following prescription(s): acetaminophen-codeine, advair diskus, albuterol hfa, amlodipine, anastrozole, atorvastatin, blood glucose diagnostic, cholecalciferol, clobetasol, cyanocobalamin, flash glucose scanning reader, lisinopril-hydrochlorothiazide, nystatin, trulicity, turmeric root extract, allopurinol, clonidine, glipizide, and metformin. REVIEW OF SYSTEMS Review of Systems Constitutional: [...] Objective PHYSICAL EXAM Ht 157.5 cm (5' 2 ) Wt 95.3 kg (210 lb) BMI 38.41 kg/m?? She is alert and oriented x3. She is in no acute distress. She is cooperative with the exam. Her range of motion is almost equal to her other side in all planes now. Strength is returning as well. She is ambulating fairly easily with intermittent limping to her left lower extremity. She appears neurovascularly intact. She has minimal edema. She has no significant tenderness to her ankle. REVIEW OF X-RAYS/STUDIES/LABS None today Assessment/Plan Rosa was seen today for fracture and follow-up. Diagnoses and all orders for this visit: Closed displaced fracture of lateral malleolus of left fibula with routine healing, subsequent encounter PLAN This is a 58-year-old female who is 4 months out from Anaya B lateral malleolus fracture of her left ankle. She appears to be doing very well. She is back to almost all of her normal activities. She will continue to work up with strengthening and the rest of her walking as she tolerates this. She will continue to do exercises as needed. She will follow up as needed and knows to call with any further questions or concerns. VICKEY Aguirre Cosigned by Noah Villafana Jr., MD at 03/07/2024 4:44 PM CDT documented in this encounter Plan of Treatment Not on file documented as of this encounter Visit Diagnoses Diagnosis Closed displaced fracture of lateral malleolus of left fibula with routine healing, subsequent encounter- Primary documented in this encounter Historical Medications * This list may reflect changes made after this encounter. albuterol HFA (PROVENTIL HFA,VENTOLIN HFA,PROAIR HFA) 90 mcg/actuation inhaler INHALE 1 PUFF BY MOUTH 4 TIMES DAILY NEEDED FOR SHORTNESS OF BREATH OR WHEEZING 02/10/2024 added in this encounter Care Teams Service Specialist Relationship Specialty Start Date End Date Rosa Shi MD PCP - General Family Medicine 10/20/22 documented as of this encounter
--- OUTSIDE RECORDS SUMMARY | 2024-10-23 02:09 | XMS_ITS | Encounter Summary ---
Author Organization [facility] Healthcare Address [address] [place] [address] Care Team Providers Care [employer] Scout Name Role Phone Rosa Shi MD Primary Care Provider [phone] Reason for Visit * Reason Onset Date Comments Covid-19 Home Monitoring 09/08/2023 Encounter Details Date Type Department Care Team (Late st Contact Info) Description 09/08/2023 Telephone [facility] Accountable Care Organization [address] [place] [address] Adwoa Ga MA [address] [place] [address] Covid-19 Home Monitoring Social History Tobacco Use Types Packs/Day Years Used Date Smoking Tobacco: Never Smokeless Tobacco: Never Alcohol Use Standard Drinks/Week Comments No 0 (1 standard drink = 0.6 oz pur e alcohol) PHQ-2 Answer Date Recorded PHQ-2 Score 1 11/23/2019 Comments No Sex and Gender Information Value Date Recorded Sex Assigned at Not on file 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 COVID-19 Symptom questionnaire was completed today. Symptoms were addressed to be Mild. Escalation was not needed. Next Program Call Due: 09/09 COVID-19 Home Monitoring Flowsheet Answers: Temp/Pulse Ox Temp: (no fever) Symptom Monitoring Are you feeling short of breath today?: No Are you having a cough today?: Yes Cough Details:: Better Are you experiencing weakness today?: No How is your appetite compared to yesterday?: Unchanged Are you vomiting?: No Are you experiencing diarrhea? : Yes Diarrhea Details:: Same SHOES SEWER documented in this encounter Plan of Treatment Not on file documented as of this encounter Visit Diagnoses Not on filedocumented in this encounter Additional Health Concerns Infection Onset Date Last Indicated Resolved Time COVID19 09/06/2023 09/06/2023 09/16/2023 3:05 AM HAND SHOES SEWER documented as of this encounter Care Teams [employer] Scout Relationship Specialty Start Date End Date Rosa Shi MD PCP - General Family Medicine 10/20/22 documented as of this encounter
--- OUTSIDE RECORDS SUMMARY | 2024-10-23 02:09 | XMS_ITS | Encounter Summary ---
Author Organization [facility] Healthcare Address [address] [place] [address] Care Team Providers Care Acquisition Professional Name Role Phone Rosa Shi MD Primary Care Provider [phone] Reason for Referral * Diagnostic Imaging (Routine) - Closed Specialty Diagnoses / Procedures Referred By Vi t Referred To Contact Diagnoses Closed displaced fracture of lateral malleolus of left fibula with routine healing, subsequent encounter Procedures XR Ankle Left 3+ Vw Charlene Montano [place] [id number] [place] [address] Phone: tel: fax: [facility] Medical Group Referral ID Status Reason Start Date Expiration Date Visits Re quested Visits Authorized [id number] Closed 12/01/2023 12/30/2024 1 1 ETING EFFECTIVENESS MANAGER Reason for Visit * Reason Comments Post-op Encounter Details Date Type Department Care Team (Late st Contact Info) Description 12/01/2023 3:30 PM MARKETING EFFECTIVENESS MANAGER Office Visit [facility] Medical [facility] Orthopedics and Sports Medicine at 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 Gender Identity Not on file Sexual Orientation Not on file documented as of this encounter Last Filed Vital Signs Vital Sign Reading Time Taken Comments Blood Pressure - - Pulse - - Temperature - - Respiratory Rate - - Oxygen Saturation - - Inhaled Oxygen Concentration - - Weight 97.5 kg (215 lb) 12/01/2023 3:05 PM MARKETING EFFECTIVENESS MANAGER Height 157.5 cm (5' 2.01 ) 12/01/2023 3:05 PM CS T Body Mass Index 39.31 12/01/2023 3:05 PM MARKETING EFFECTIVENESS MANAGER documented in this encounter Progress Notes * Charlene Montano PA - 12/01/2023 3:30 PM CST Images from the original note were not included. FOLLOW UP VISIT Subjective CHIEF COMPLAINT She had concerns including Post-op of the Left Ankle. HISTORY OF PRESENT ILLNESS This is a 58-year-old female who is here today to be re-evaluated for her left ankle status post Anaya B lateral malleolus fracture. She is approximately 1 month out from injury. She appears to be doing somewhat better. She states that her ankle is feeling better. She is wondering what her x-rays show. Pain Assessment Pain Assessment: 0-10 Pain Score: 2 Pain Location: Ankle Pain Orientation: Left Pain Descriptors: Tightness MEDICATIONS She has a current medication list which includes the following prescription(s): acetaminophen-codeine, advair diskus, allopurinol, amlodipine, anastrozole, atorvastatin, azithromycin, blood glucose diagnostic, cholecalciferol, clobetasol, clonidine, cyanocobalamin, flash glucose scanning reader, glipizide, ibuprofen, indomethacin, lisinopril-hydrochlorothiazide, meloxicam, metformin, nystatin, trulicity, and turmeric root extract. REVIEW OF SYSTEMS Review of Systems Objective PHYSICAL EXAM Ht 157.5 cm (5' 2.01 ) Wt 97.5 kg (215 lb) BMI 39.31 kg/m?? She is alert and oriented x3. She has in no acute distress. She is cooperative with the exam. She has been walking on her foot and ankle. She is using her cane. She is able to dorsiflex and plantar flex fairly easily although this is not equal to her other side. Inversion and eversion is still verylimited as expected. She is able to dorsiflex and plantar flex her toes appropriately. Sensation appears to be intact to light touch. REVIEW OF X-RAYS/STUDIES/LABS XR Ankle Left 3+ Vw My interpretation of her x-rays today: Three views of her left ankle including weight-bearing AP, lateral, and mortise show the Anaya B lateral malleolus fracture remains in good and is being treatednon operatively. There has been no change the alignment of the fracture fragment. There is callus formation present. Assessment/Plan Rosa was seen today for post-op. Diagnoses and all orders for this visit: Closed displaced fracture of lateral malleolus of left fibula with routine healing, subsequent encounter - XR Ankle Left 3+ Vw PLAN This is a 58-year-old female who is here today to be re-evaluated for her left ankle status post Anaya B lateral malleolus fracture from approximately 1 month ago. She appears to be doing better. Herpain level is better. She has callus formation present on x-ray. She may be weight-bearing as tolerated in her boot. She is not to ambulate without the boot. She may come out of the boot at least twice a day for [id number] exercises and writing the ABCs with her foot. We will see how she does with this. She will follow up in 3 weeks for re-evaluation and weight-bearing x-rays of her left ankle. She knows to call with any further questions or concerns. VICKEY Aguirre ETING EFFECTIVENESS MANAGER documented in this encounter Plan of Treatment Not on file documented as of this encounter Procedures Procedure Name Priority Date/Time Associated Diagnosis Comments XR ANKLE LEFT 3 OR MORE VIEWS Schedule Routine, Read Routine (OP Routine) 12/01/2023 3:45 PM MARKETING EFFECTIVENESS MANAGER Closed displaced fracture of lateral malleolus of left fibula with routine healing, subsequent encounter documented in this encounter Results * XR Ankle Left 3+ Vw (12/01/2023 3:45 PM MARKETING EFFECTIVENESS MANAGER) Anatomical Region Laterality Modality Lower Extremities, Ankle Left Compute d Radiography Narrative 12/01/2023 3:45 PM MARKETING EFFECTIVENESS MANAGER My interpretation of her x-rays today: ??Three views of her left ankle including weight-bearing AP, lateral, and mortise show the Anaya B lateral malleolus fracture remains in good and is being treated non operatively. ?? There has been no change the alignment of the fracture fragment. ??There is callus formation present. us Charlene HURD IMG XR PROCEDURES Final Resu lt documented in this encounter Visit Diagnoses Diagnosis Closed displaced fracture of lateral malleolus of left fibula with routine healing, subsequent encounter- Primary documented in this encounter Additional Health Concerns Infection Onset Date Last Indicated Resolved Time COVID: Recovered Comment:Added based on recent COVID infection. 09/16/2023 10/31/2023 12/15/2023 3:[address] documented as of this encounter Care Teams Acquisition Professional Relationship Specialty Start Date End Date Rosa Shi MD PCP - General Family Medicine 10/20/22 documented as of this encounter
--- OUTSIDE RECORDS SUMMARY | 2024-10-23 02:09 | XMS_ITS | Encounter Summary ---
Author Organization [facility] Healthcare Address [address] [place] [address] Care Team Providers Care Hospice Office Coordinator Name Role Phone Rosa Shi MD Primary Care Provider [phone] Reason for Visit * Reason Onset Date Comments Covid-19 Home Monitoring 09/07/2023 Enrollm ent call day 1 Encounter Details Date Type Department Care Team (Late st Contact Info) Description 09/07/2023 Telephone [facility] Accountable Care Organization [address] [place], [place] [id number] Adwoa Ga MA [address] [place] [address] Covid-19 Home Monitoring (Enrollment call day 1 ) Social History Tobacco Use Types Packs/Day Years Used Date Smoking Tobacco: Never Smokeless Tobacco: Never Alcohol Use Standard Drinks/Week Comments No 0 (1 standard drink = 0.6 oz pur e alcohol) PHQ-2 Answer Date Recorded PHQ-2 Score 1 11/23/2019 Comments No Sex and Gender Information Value Date Recorded Sex Assigned at Not on file 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 The patient was contacted via phone for enrollment in the program. The patient has declined to participate in the automated MyChart Injection Moulding Machine Operator Program, but has verbally agreed to the Phone Only Home Monitoring Program, which includes being contacted for a daily phone assessment by a [facility]/ staff member. The patient was informed that members of the healthcare team will contact them depending on the symptoms that they report. This call could come from a variety of phone numbers depending on which member of the healthcare team is contacting the patient, and the patient should be prepared to answer calls from a variety of phone numbers. If the patient is unable to be reached for 3 days, they will be disenrolled from the program. Patient is aware that we will try and reach them at every available phone number, including HIPAA contacts. After review, the patient agreed to participate. The ???COVID19 Home Monitoring?? order was placedto enroll the patient in the phone only version of the program. ON GUARD SUPERVISOR documented in this encounter Plan of Treatment Not on file documented as of this encounter Visit Diagnoses Not on filedocumented in this encounter Additional Health Concerns Infection Onset Date Last Indicated Resolved Time COVID19 09/06/2023 09/06/2023 09/16/2023 3:05 AM PRISON GUARD SUPERVISOR documented as of this encounter Care Teams Hospice Office Coordinator Relationship Specialty Start Date End Date Rosa Shi MD PCP - General Family Medicine 10/20/22 documented as of this encounter
--- OUTSIDE RECORDS SUMMARY | 2024-10-23 02:09 | XMS_ITS | Encounter Summary ---
Author Organization [facility] Healthcare Address [address] [place] [address] Care Team Providers Care Forestry Adviser Name Role Phone Rosa Shi MD Primary Care Provider [phone] Reason for Visit * Diagnostic Imaging (Routine) - Closed Specialty Diagnoses / Procedures Referred By Contac t Referred To Contact Diagnoses Closed displaced fracture of lateral malleolus of left fibula with routine healing, subsequent encounter Procedures XR Ankle Left 3+ [place] [address] [address] Phone: tel: fax: [facility] Medical Group Referral ID Status Reason Start Date Expiration Date Visits Re quested Visits Authorized [id number] Closed 01/21/2024 02/19/2025 1 1 Encounter Details Date Type Department Care Team (Latest Contact Info) Description 01/21/2024 11:15 AM CDT - 01/21/2024 11:59 PM CDT Hospital Encounter [facility] [address] [phone] Discharge Disposition: Discharge to home or self [...] on file 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 documented as of this encounter Discharge Disposition [...] present. ??This appears to be bridging now. Charlene HURD IMG XR PROCEDURES Final Resu lt documented in this encounter Visit Diagnoses Not on filedocumented in this encounter Care Teams Forestry Adviser Relationship Specialty Start Date End Date Rosa Shi MD PCP - General Family Medicine 10/20/22 documented as of this encounter
--- OUTSIDE RECORDS SUMMARY | 2024-10-23 02:09 | XMS_ITS | Encounter Summary ---
Author Organization [facility] Healthcare Address [address] [place] [address] Care Team Providers Care Painter Spring Name Role Phone Rosa Shi MD Primary Care Provider [phone] Reason for Visit * Reason Onset Date Comments Covid-19 Home Monitoring 09/09/2023 Encounter Details Date Type Department Care Team (Late st Contact Info) Description 09/09/2023 Telephone [facility] Accountable Care Organization [address] [place] [address] Adwoa Ga MA [address] [place] [address] Covid-19 Home Monitoring Social History Tobacco Use Types Packs/Day Years Used Date Smoking Tobacco: Never Smokeless Tobacco: Never Alcohol Use Standard Drinks/Week Comments No 0 (1 standard drink = 0.6 oz pur e alcohol) PHQ-2 Answer Date Recorded PHQ-2 Score 1 11/23/2019 Comments No Sex and Gender Information Value Date Recorded Sex Assigned at Not on file 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 COVID-19 Symptom questionnaire was not completed today, because the patient could not be reached. Next Program Call Due: 09/10+ [facility] day 1 OOM ATTENDANT * Telephone Encounter - Adwoa Ga MA - 09/09/2023 12:55 PM CST COVID Home Monitoring Unable to Reach Called patient for home monitoring URMILA assessment Unable to reach patient. Patient will receive follow up call today OOM ATTENDANT documented in this encounter Plan of Treatment Not on file documented as of this encounter Visit Diagnoses Not on filedocumented in this encounter Additional Health Concerns Infection Onset Date Last Indicated Resolved Time COVID19 09/06/2023 09/06/2023 09/16/2023 3:05 AM TAPROOM ATTENDANT documented as of this encounter Care Teams Painter Spring Relationship Specialty Start Date End Date Rosa Shi MD PCP - General Family Medicine 10/20/22 documented as of this encounter
--- OUTSIDE RECORDS SUMMARY | 2024-10-23 02:09 | XMS_ITS | Encounter Summary ---
Author Organization [facility] Healthcare Address [address] [place] [address] Care Team Providers Care Patient Registration Representative Name Role Phone Rosa Shi MD Primary Care Provider [phone] Reason for Referral * Procedure (Routine) - Authorized Specialty Diagnoses / Procedures Referred By Contac t Referred To Contact Diagnoses Closed displaced fracture of lateral malleolus of left fibula, initial encounter Procedures Orthopedic [place] [address] [address] Phone: tel: fax: [facility] Medical [facility] Referral ID Status Reason Start Date Expiration Date V isits Requested Visits Authorized [id number] Authorized 11/03/2023 12/02/2024 1 1 NSING ANALYST Reason for Visit * Reason Comments Pain Encounter Details Date Type Department Care Team (Latest Contact Info) Description 11/03/2023 9:00 AM LICENSING ANALYST Office Visit [facility] Orthopedics and Sports Medicine at [facility] [id number] [place] [phone] [place] [id number] [address] Closed displaced fracture of lateral malleolus of left fibula, initial encounter (Primary Dx); Primary osteoarthritis of left knee Social History Tobacco Use Types Packs/Day Years Used Date Smoking Tobacco: Never Smokeless Tobacco: Never Alcohol Use Standard Drinks/Week Comments No 0 (1 standard drink = 0.6 oz pur e alcohol) PHQ-2 Answer Date Recorded PHQ-2 Score 1 11/23/2019 Comments No Sex and Gender Information Value Date Recorded Sex Assigned at Not on file Legal Sex Female 8:35 AM LICENSING ANALYST Gender Identity Not on file Sexual Orientation Not on file documented as of this encounter Last Filed Vital Signs Vital Sign Reading Time Taken Comments Blood Pressure 144/80 11/03/2023 8:56 AM LICENSING ANALYST Pulse - - Temperature - - Respiratory Rate - - Oxygen Saturation - - Inhaled Oxygen Concentration - - Weight 97.5 kg (215 lb) 11/03/2023 8:56 AM LICENSING ANALYST Height 157.5 cm (5' 2 ) 11/03/2023 8:56 AM LICENSING ANALYST Body Mass Index 39.32 11/03/2023 8:56 AM LICENSING ANALYST documented in this encounter Ordered Prescriptions Prescription Sig Dispense Quantity Refills Last Filled Start Date End Date acetaminophen-code ine (TYLENOL with CODEINE #3) 300-30 mg per tablet Take 1-2 tablets by mouth every 4-6 hours as needed for pain control. 40 tablet 11/03/2023 documented in this encounter Progress Notes * Noah Villafana Jr., MD - 11/03/2023 9:00 AM CSTAssociated Order(s): Orthopedic Injury Treatment Post-Procedure Diagnose(s): Closed displaced fracture of lateral malleolus of left fibula, initial encounter Images from the original note were not included. NEW PATIENT VISIT Subjective CHIEF COMPLAINT Rosa Gupta Holley was seen today for consultation requested by Rosa Shi MD for Pain of the Left Ankle HISTORY OF PRESENT ILLNESS She has a 58-year-old black female with a painful left ankle. She slipped and fell on 10/31/2023 injuring her left ankle. Denies any loss of consciousness shortness of breath or chest pain just a simple mechanical fall. Went to an urgent care was diagnosed with a fracture placed into a splint and sent see me. 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 Pain Assessment Pain Assessment: 0-10 Pain Score: 7 Pain Location: Ankle Pain Descriptors: Aching Pain Frequency: With movement/cough Aggravating Factors: Walking, Standing Multiple Pain Sites: Two Pain 2 Pain Score 2: 2 Pain Location 2: Knee Pain Descriptors 2: Aching Aggravating Factors 2: Bending PAST MEDICAL HISTORY She has a past medical history of Asthma, Diabetes mellitus (HCC), and Malignant neoplasm of left female breast (HCC) (01/09/2021). She has no past medical history of Atypical ductal hyperplasia of breast, BRCA1 negative, BRCA1 positive, BRCA2 negative, BRCA2 positive, Breast cyst, Breast injury, Colon cancer (CMS/HCC) (HCC), Ductal hyperplasia of breast, Endometrial cancer (CMS/HCC) (HCC), Fibrocystic breast, History of chemotherapy, History of radiation therapy, Lobular carcinoma in situ of breast, Ovarian cancer (HCC), Smoking, or Thyroid cancer (HCC). PAST SURGICAL HISTORY She has a past surgical history that includes Tubal ligation and Hysterectomy. MEDICATIONS She has a current medication list which includes the following prescription(s): acetaminophen-codeine, advair diskus, allopurinol, amlodipine, anastrozole, atorvastatin, azithromycin, blood glucose diagnostic, cholecalciferol, clobetasol, clonidine, cyanocobalamin, flash glucose scanning reader, glipizide, indomethacin, lisinopril-hydrochlorothiazide, meloxicam, metformin, nystatin, and turmeric root extract. ALLERGIES She is allergic to latex. SOCIAL HISTORY She reports that she has never smoked. She has never used smokeless tobacco. No alcohol history on file. FAMILY HISTORY Her family history includes Diabetes type II in her father and mother; Hypertension in her father and mother; Kidney disease in her father; Stroke in her father. REVIEW OF SYSTEMS Review of Systems Objective PHYSICAL EXAM BP 144/80 Ht 157.5 cm (5' 2 ) Wt 97.5 kg (215 lb) BMI 39.32 kg/m?? Left foot Inspection Erythema: absent Effusion: 1+ Surgical scar/wound: absent. Deformity: absent Edema: 1+ Skin temperature: normal Gait: antalgic and unable to bear weight Standing exam: Hindfoot: neutral Forefoot: neutral Medial ankle: Deltoid: no Medial malleolus: no Lateral ankle: Lateral malleolus: yes Range of motion The patient has reduced range of motion of the left foot and ankle. The patient has pain with range of motion of the left foot and ankle. Neurovascular The patient has normal vascular on the left side of their body. The patient has normal sensation on the left side of their body. Comments: Range of motion and strength of the left ankle is decreased secondary to tenderness. All motor units are functional. Tenderness and swelling is localized to the lateral malleolar area. No evidence of a compartment syndrome. REVIW OF X-RAYS/STUDIES/LABS Left ankle three views nonweightbearing done on 10/31/2023 shows a minimally displaced Anaya B lateral malleolus fracture with some shortening and slight posterior displacement. The mortise is anatomic. Left tibia two views from the same date shows the minimally displaced distal fibular fracture as well as some left medial joint space arthritis joint space narrowing and spurring. Left knee two views nonweightbearing on the same date shows medial joint space narrowing with patellofemoral arthritic changes noted as well and a spurs off the superior patella. Assessment/Plan Rosa was seen today for pain. Diagnoses and all orders for this visit: Closed displaced fracture of lateral malleolus of left fibula, initial encounter - Orthopedic Injury Treatment Primary osteoarthritis of left knee Other orders - acetaminophen-codeine (TYLENOL with CODEINE #3) 300-30 mg per tablet; Take 1-2 tablets by mouth every 4-6 hours as needed for pain control. She has a minimally displaced left Anaya B lateral malleolus fracture after mechanical fall on 10/31/2023. She also has pre-existing left knee arthritis. She has no medial tenderness or swelling of the ankle. Since that has a minimally displaced fracture with no medial tenderness elected to treat her in a short-leg cast as opposed to needing surgery or a walker boot. Orthopedic Injury Treatment Performed by: Noah Villafana Jr., MD Authorized by: Noah Villafana Jr., MD [place] Protocol: Verbal consent obtained?: Yes Risks and benefits: Risks, benefits and alternatives were discussed Consent given by: Patient Patient states understanding of procedure being performed: Yes Patient's understanding of procedure matches consent: Yes A time out verifies correct patient, procedure, equipment, mining support worker and site/side marked as required: Injury: Injury location: Ankle Location details: Left ankle Injury type: Fracture Fracture type: lateral malleolus Fracture type: lateral malleolus Pre-procedure assessment: Neurovascular status: Neurovascularly intact Range of motion: reduced Procedure details: Selections made in this section will also lock the Injury type section above.: Manipulation performed?: No Immobilization: Cast Splint type: Short leg Supplies used: Fiberglass Post-procedure assessment: Neurovascular status: Neurovascularly intact Range of motion: unchanged patient tolerated the procedure well with no immediate complications PLAN She was placed into a short-leg nonweightbearing cast today. See me in 2 weeks, get x-rays of the ankle in the cast. She will probably need 1 month of immobilization in the cast. Given a prescriptionfor Tylenol 3 for pain control. Given a note to be off work and till 11/09/2023. I recommend her getting a knee scooter. Noah Villafana Jr., MD NSING ANALYST documented in this encounter Plan of Treatment Not on file documented as of this encounter Procedures Procedure Name Priority Date/Time Associated Diagnosis Comments [place] CLTX DSTL FIBULAR FX LAT MALLS W/O MANJ Routine 11/03/2023 9:00 AM LICENSING ANALYST Closed displaced fracture of lateral malleolus of left fibula, initial encounter [place] APPLICATION SHORT LEG SPLINT CALF FOOT Routine 11/03/2023 9:00 AM LICENSING ANALYST Closed displaced fracture of lateral malleolus of left fibula, initial encounter documented in this encounter Results * NJ APPLICATION SHORT LEG SPLINT CALF FOOT, [place] CLTX DSTL FIBULAR FX LAT MALLS W/O MANJ (11/03/2023 9:00 AM LICENSING ANALYST) Narrative Noah Villafana Jr., MD - 11/03/2023 9:00 AM LICENSING ANALYST Noah Villafana Jr., MD ? 11/03/2023 ??9:55 AM Orthopedic Injury Treatment Performed by: Noah Villafana Jr., MD Authorized by: Noah Villafana Jr., MD ?? [place] Protocol: ??Verbal consent obtained?: Yes ?Risks and benefits: Risks, benefits and alternatives were discussed ?Consent given by: ??Patient ??Patient states understanding of procedure being performed: Yes ?Patient's understanding of procedure matches consent: Yes ?? A time out verifies correct patient, procedure, equipment, mining support worker and site/side marked as required: Injury: ??Injury location: ??Ankle ??Location details: ??Left ankle ??Injury type: ??Fracture ??Fracture type: lateral malleolus ?Fracture type: lateral malleolus ?? Pre-procedure assessment: ??Neurovascular status: Neurovascularly intact ?Range of motion: reduced ?? Procedure details: Selections made in this section will also lock the Injury type section above.: ??Manipulation performed?: No ?Immobilization: ??Cast ??Splint type: ??Short leg ??Supplies used: ??Fiberglass Post-procedure assessment: ??Neurovascular status: Neurovascularly intact ?Range of motion: unchanged ? patient tolerated the procedure well with no immediate complications us Noah Villafana Jr., MD IN CLINIC/BEDSIDE O RDERABLES Final Result documented in this encounter Visit Diagnoses Diagnosis Closed displaced fracture of lateral malleolus of left fibula, initial encounter- Primary Primary osteoarthritis of left knee documented in this encounter Additional Health Concerns Infection Onset Date Last Indicated Resolved Time COVID: Recovered Comment:Added based on recent COVID infection. 09/16/2023 10/31/2023 12/15/2023 3:[address] documented as of this encounter Care Teams Patient Registration Representative Relationship Specialty Start Date End Date Rosa Shi MD PCP - General Family Medicine 10/20/22 documented as of this encounter
--- OUTSIDE RECORDS SUMMARY | 2024-10-23 02:09 | XMS_ITS | Encounter Summary ---
Author Organization [facility] Healthcare Address [address] [place] [address] Care Team Providers Care Housekeeping Room Attendant Name Role Phone Rosa Shi MD Primary Care Provider [phone] Reason for Visit * Reason Onset Date Comments Covid-19 Home Monitoring 09/11/2023 Encounter Details Date Type Department Care Team (Late st Contact Info) Description 09/11/2023 Telephone [facility] Accountable Care Organization [address] [place] [address] Jaz Sandoval MA [address] [facility] [address] [place] [address] Covid-19 Home Monitoring Social History Tobacco Use Types Packs/Day Years Used Date Smoking Tobacco: Never Smokeless Tobacco: Never Alcohol Use Standard Drinks/Week Comments No 0 (1 standard drink = 0.6 oz pur e alcohol) PHQ-2 Answer Date Recorded PHQ-2 Score 1 11/23/2019 Comments No Sex and Gender Information Value Date Recorded Sex Assigned at Not on file Legal Sex Female 8:35 AM TEXTILE SCREEN MAKER Gender Identity Not on file Sexual Orientation Not on file documented as of this encounter Miscellaneous Notes * Telephone Encounter - Jaz Sandoval MA - 09/11/2023 9:57 AM CST This patient is being disenrolled from the phone-only version of the COVID-19 home monitoring program for the following reason: Complete The patient has either completed the full 14-day program or has expressed 3 days of improved or no symptoms and 7 days since initial onset. We recommend that they are scheduled for a telemedicine evaluation with a primary care provider within 3 days of completion of the program. For questions or concerns about the home monitoring program, please contact . ILE SCREEN MAKER documented in this encounter Plan of Treatment Not on file documented as of this encounter Visit Diagnoses Not on filedocumented in this encounter Additional Health Concerns Infection Onset Date Last Indicated Resolved Time COVID19 09/06/2023 09/06/2023 09/16/2023 3:05 AM TEXTILE SCREEN MAKER documented as of this encounter Care Teams Housekeeping Room Attendant Relationship Specialty Start Date End Date Rosa Shi MD PCP - General Family Medicine 10/20/22 documented as of this encounter
--- OUTSIDE RECORDS SUMMARY | 2024-10-23 02:09 | XMS_ITS | Encounter Summary ---
Author Organization [facility] Healthcare Address [address] [place] [address] Care Team Providers Care Cloth Hauler Name Role Phone Rosa Shi MD Primary Care Provider [phone] Reason for Visit * Reason Onset Date Comments Covid-19 Home Monitoring 09/10/2023 Encounter Details Date Type Department Care Team (Late st Contact Info) Description 09/10/2023 Telephone [facility] Accountable Care Organization [address] [place] [address] Adwoa Ga MA [address] [place] [id number] Covid-19 Home Monitoring Social History Tobacco Use Types Packs/Day Years Used Date Smoking Tobacco: Never Smokeless Tobacco: Never Alcohol Use Standard Drinks/Week Comments No 0 (1 standard drink = 0.6 oz pur e alcohol) PHQ-2 Answer Date Recorded PHQ-2 Score 1 11/23/2019 Comments No Sex and Gender Information Value Date Recorded Sex Assigned at Not on file Legal Sex Female 8:35 AM COOKING CHEF Gender Identity Not on file Sexual Orientation Not on file documented as of this encounter Miscellaneous Notes * Telephone Encounter - Adwoa Ga MA - 09/10/2023 10:02 AM CST This patient has enrolled in the PHONE ONLY version of COVID-19 Home Monitoring Program. COVID-19 Symptom questionnaire was completed today. Symptoms were addressed to be Mild. Escalation was not needed. Next Program Call Due: 09/11 COVID-19 Home Monitoring Flowsheet Answers: Temp/Pulse Ox Temp: (no fever) Symptom Monitoring Are you feeling short of breath today?: No Are you having a cough today?: Yes Cough Details:: Better Are you experiencing weakness today?: No How is your appetite compared to yesterday?: Unchanged Are you vomiting?: No Are you experiencing diarrhea? : Yes Diarrhea Details:: Better ING CHEF documented in this encounter Plan of Treatment Not on file documented as of this encounter Visit Diagnoses Not on filedocumented in this encounter Additional Health Concerns Infection Onset Date Last Indicated Resolved Time COVID19 09/06/2023 09/06/2023 09/16/2023 3:05 AM COOKING CHEF documented as of this encounter Care Teams Cloth Hauler Relationship Specialty Start Date End Date Rosa Shi MD PCP - General Family Medicine 10/20/22 documented as of this encounter
--- OUTSIDE RECORDS SUMMARY | 2024-10-23 02:09 | XMS_ITS | Encounter Summary ---
Author Organization [facility] Healthcare Address [address] [place] [address] Care Team Providers Care Comb Machine Operator Name Role Phone Rosa Shi MD Primary Care Provider [phone] Reason for Referral * Diagnostic Imaging (Routine) - Closed Specialty Diagnoses / Procedures Referred By Ritaac t Referred To Contact Diagnoses Closed displaced fracture of lateral malleolus of left fibula, initial encounter Procedures XR Ankle Left 3+ [place] [address] [address] Phone: tel: fax: [facility] Medical Group Referral ID Status Reason Start Date Expiration Date Visits Re quested Visits Authorized [id number] Closed 11/17/2023 12/16/2024 1 1 UNTING FILE CLERK Reason for Visit * Reason Comments Post-op Encounter Details Date Type Department Care Team (Late st Contact Info) Description 11/17/2023 3:00 PM ACCOUNTING FILE CLERK Office Visit [facility] Medical [facility] Orthopedics and Sports Medicine at [address] [phone] [place] [address] [address] Closed displaced fracture of lateral [...] on file Legal Sex Female 8:35 AM ACCOUNTING FILE CLERK Gender Identity Not on file Sexual Orientation Not on file documented as of this encounter Last Filed Vital Signs Vital Sign Reading Time Taken Comments Blood Pressure - - Pulse - - Temperature - - Respiratory Rate - - Oxygen Saturation - - Inhaled Oxygen Concentration - - Weight 97.5 kg (215 lb) 11/17/2023 2:33 PM ACCOUNTING FILE CLERK Height 157.5 cm (5' 2.01 ) 11/17/2023 2:33 PM CS T Body Mass Index 39.31 11/17/2023 2:33 PM ACCOUNTING FILE CLERK documented in this encounter Progress Notes * Noah Villafana Jr., MD - 11/17/2023 3:00 PM CST Images from the original note were not included. FOLLOW UP VISIT Subjective CHIEF COMPLAINT She had concerns including Post-op of the Left Ankle. HISTORY OF PRESENT ILLNESS She is seen for her minimally displaced left Anaya B lateral malleolus fracture after mechanical fall on 10/31/23. She has been in a nonweightbearing cast. She comes in to the office just using a cane. Pain Assessment Pain Assessment: 0-10 Pain Score: 0 - No pain Pain Location: Ankle Pain Orientation: Left MEDICATIONS She has a current medication list which includes the following prescription(s): ibuprofen, trulicity, acetaminophen-codeine, advair diskus, allopurinol, amlodipine, anastrozole, atorvastatin, azithromycin, blood glucose diagnostic, cholecalciferol, clobetasol, clonidine, cyanocobalamin, flash glucose scanning reader, glipizide, indomethacin, lisinopril-hydrochlorothiazide, meloxicam, metformin, nystatin, and turmeric root extract. REVIEW OF SYSTEMS Review of Systems Objective PHYSICAL EXAM Ht 157.5 cm (5' 2.01 ) Wt 97.5 kg (215 lb) BMI 39.31 kg/m?? Ortho Exam Left foot and ankle The bottom of the cast is completely broken out. She comes in today weight- bearing just she has in a cane Saint she is just putting a little bit of weight on the foot. REVIEW OF X-RAYS/STUDIES/LABS XR Ankle Left 3+ Vw Left ankle three views nonweightbearing in the cast shows the minimally displaced lateral malleolusfracture position is essentially unchanged. The mortise is still anatomic, but the fracture is not healed. Assessment/Plan Rosa was seen today for post-op. Diagnoses and all orders for this visit: Closed displaced fracture of lateral malleolus of left fibula with routine healing, subsequent encounter - XR Ankle Left 3+ Vw She is about 2 weeks follow-up for her minimally displaced left Anaya B lateral malleolus fracture.She has been full weight-bearing in her cast and the bottom of the cast is broken out. X-ray position shows no change with some slight displacement of the fracture but similar to the prior radiographs with the mortise still being anatomic. PLAN Placed into a new short-leg cast supposedly nonweightbearing been built up more substantially said she probably will walk on it. See me in 2 weeks, remove the cast and get x-rays of the left ankle and hopefully allow protected weight- bearing in a walker boot. I told her to protect the ankle and stay off it. Noah Villafana Jr., MD UNTING FILE CLERK documented in this encounter Plan of Treatment Not on file documented as of this encounter Procedures Procedure Name Priority Date/Time Associated Diagnosis Comments XR ANKLE LEFT 3 OR MORE VIEWS Schedule Routine, Read Routine (OP Routine) 11/17/2023 3:18 PM ACCOUNTING FILE CLERK Closed displaced fracture of lateral malleolus of left fibula with routine healing, subsequent encounter documented in this encounter Results * XR Ankle Left 3+ Vw (11/17/2023 3:18 PM ACCOUNTING FILE CLERK) Anatomical Region Laterality Modality Lower Extremities, Ankle Left Compute d Radiography Narrative 11/17/2023 3:18 PM ACCOUNTING FILE CLERK Left ankle three views nonweightbearing in the [...] may reflect changes made after this encounter. Trulicity 0.75 mg/0.5 mL pen injector 0.5 mL (0.75 mg total) by other route once a week 07/16/2023 ibuprofen (ADVIL,MOTRIN) 600 mg tablet Take 1 tablet (600 mg total) by mouth 3 (three) times a day as needed for pain 10/31/2023 11/18/2023 added in this encounter Additional Health Concerns Infection Onset Date Last Indicated Resolved Time COVID: Recovered Comment:Added based on recent COVID infection. 09/16/2023 10/31/2023 12/15/2023 3:[address] documented as of this encounter Care Teams Comb Machine Operator Relationship Specialty Start Date End Date Rosa Shi MD PCP - General Family Medicine 10/20/22 documented as of this encounter
--- OUTSIDE RECORDS SUMMARY | 2024-10-23 02:09 | XMS_ITS | Referral Summary ---
Author Organization [facility] Address [address] [place] [address] Care Team Providers Care Foot Roentgenologist Name Role Phone Kevin Shi MD Primary Care Provider [phone] Allergies Active Allergy Reactions Criticality Noted Date Comments Latex Rash Medium 05/07/2022 Medications cyanocobalamin (Vitamin B-12) 500 mcg tabletIndicati ons:Prevention of Vitamin B12 Deficiency Take 1 tablet (500 mcg total) by mouth daily Active turmeric root extract 500 mg capsule Take by mouth 2 (two) times a day. Active flash glucose scanning reader ([employer] ANDIE 14 DAY READER) misc 1 application [...] NEC Assessment & Plan (11/24/2019 8:07 PM TRACTOR MECHANIC HELPER): History of depression. Currently listed on [...] UNCNTR Assessment & Plan (11/24/2019 8:01 PM TRACTOR MECHANIC HELPER): Uncontrolled. Due for repeat hga1c. We [...] daily basis. She was interested and the nprogress 14 day reader and the sample reader was given with refills on the reader. Patient was still not sure about applying the reader ever 14 days.. She will check cost on the reader refills and considerate Asthma 03/10/2014 Overview (01/27/2017): ASTHMA NOS Hyperlipidemia due to type 2 diabetes mellitus 0 03/10/2014 Overview (01/27/2017): PURE HYPERCHOLESTEROLEM Assessment & Plan (11/24/2019 8:02 PM TRACTOR MECHANIC HELPER): Due for repeat lipid panel. Ordered [...] HYPERTENSION Assessment & Plan (11/24/2019 7:58 PM TRACTOR MECHANIC HELPER): Elevated in office today as patient [...] 07/25/2019,07/25/2018 Pneumococcal Polysaccharide PPV23 08/04/2010 Tdap 08/04/2010 Social History Tobacco Use Types Packs/Day Years [...] on file Legal Sex Female 8:35 AM TRACTOR MECHANIC HELPER Gender Identity Not on file Sexual Orientation Not on file Occupation Industry Job Start Date Job End Date Soon to be retired from [employer] March 09 Not on file Not on file Not on file Last Filed Vital Signs Vital Sign Reading Time Taken Comments Blood Pressure 144/80 11/03/2023 8:56 AM TRACTOR MECHANIC HELPER Pulse 82 09/06/2023 9:05 AM TRACTOR MECHANIC HELPER Temperature 36.8 ??C (98.3 ??F) 09/06/2023 9:05 AM CS T Respiratory Rate 16 09/06/2023 9:05 AM TRACTOR MECHANIC HELPER Oxygen Saturation 96% 09/06/2023 9:05 AM TRACTOR MECHANIC HELPER Inhaled Oxygen Concentration - - Weight 95.3 kg (210 lb) 03/06/2024 2:10 PM CDT Height 157.5 cm (5' 2 ) 03/06/2024 2:10 PM CDT Body Mass Index 38.41 03/06/2024 2:10 PM CDT Plan of Treatment Not on file Procedures Procedure Name Priority Date/Time Associated Diagnosis Comments DIABETES EYE EXAM Routine 09/02/2019 SCREENING MAMMOGRAM BILATERAL W SHAY Schedule Routine, Read Routine (OP Routine) 04/18/2019 10:15 AM CDT Breast screening, unspecified EGFR Routine 02/13/2019 11:52 AM CDT Type 2 diabetes mellitus with hyperglycemia, unspecified whether oil heaterman insulin use (CMS/HCC) HEMOGLOBIN A1C Routine 02/13/2019 11:52 AM CDT Type 2 diabetes mellitus with hyperglycemia, unspecified whether oil heaterman insulin use (CMS/HCC) LIPID PANEL Routine 04/20/2018 10:14 AM CDT Type 2 diabetes mellitus with hyperglycemia, unspecified whether shelter insulin use (CMS/HCC) COLONOSCOPY IMAGES 11/12/2014 from Last 3 Months or Most Recently Relevant to Health Maintenance Results * HM DIABETES EYE EXAM (09/02/2019) Diabetic Eye Exam Normal [facility] Provider HEALTH MAINTENANCE Final Result * Screening Mammogram [...] system to notify patient's of yearly mammograms. Polina Rajput MD IMG MAMMO PROCEDURES F [...] ??mL/min/1.73m2 *Relative to young adult level If -Fijian multiply value by 1.16. Estimated glomerular filtration [...] 02/13/2019 2:22 PM CDT Narrative [facility] ([place]) - 02/13/2019 2:40 PM CDT Polina Rajput MD LAB BLOOD ORDERABLES F inal Result JEFE [facility] ([place]) 1 [facility] Department [place] [address] * (ABNORMAL) Hemoglobin A1c (02/13/2019 11:52 AM CDT) Hgb A1C 7.6(H) 4.0 - 5.6 % JEFE FOX ([place]) Estimated Average Glucose 171 mg/dL JEFE FOX ([place]) Comment: The ADA recommends reporting an estimated Average Glucose (eAG) with all Hemoglobin A1c results using the equation derived from a study of 507 normal and diabetic adults. ??Minority populations were underrepresented and children were not included. ?? (Diabetes Care 31:4578-2855, 2008). ??The eAG is not equivalent to a fasting glucose. Blood specimen (specimen) 02/13/2019 11:52 AM CDT 02/13/2019 2:22 PM CDT Narrative JEFE FOX ([place]) - 02/13/2019 2:48 PM CDT Polina Rajput MD LAB BLOOD ORDERABLES F inal Result JEFE FOX ([place]) 1 [facility] Department [place] [address] * Lipid panel (04/20/2018 10:14 AM CDT) [...] revised on 2014. Non-HDL Cholesterol 140 mg/dL KAYLAMIGUE FOX ([place]) Comment: Interpretive Data Optimal ? [...] BLOOD ORDERABLES F inal Result JEFE RUDDY ([place]) 1 [facility] [place] [address] * COLONOSCOPY IMAGES (11/12/2014) Anatomical Region Laterality Modality Other Narrative 11/12/2014 Ordered by an unspecified provider. us Historical Provider GI PROCEDURE ORDERABLES F inal Result from Last 3 Months or Most Recently Relevant to Health Maintenance Insurance [facility] CHOICE PLUS Member Subscriber Plan / Payer (Ef fective 2016-Present) Name:Palmer Kevin A Relation to Subscriber:Self Name:Kevin Babb Payer ID:[id number] (NA) Type:[facility] HMO/PPO Address: [address] CHOICE PLUS [facility] CHOICE PLUS [facility] CHOICE PLUS Care Teams Foot Roentgenologist Relationship Specialty Start Date End Date Kevin Shi MD PCP - General Family Medicine 10/20/22
--- OUTSIDE RECORDS SUMMARY | 2024-10-23 02:10 | XMS_ITS | Encounter Summary ---
Author Organization [facility] Address [address] [place] [address] Care Team Providers Care District Resource Officer Name Role Phone Emelia Yang NP Primary Care Provider [phone] Reason for Referral * Diagnostic Imaging (Routine) - Closed Specialty Diagnoses / Procedures Referred By Contac t Referred To Contact Diagnoses Special screening for osteoporosis Procedures Dexa Axial Skeleton Bone Density 1 or 2 Site Nani Mckeon NP Phone: tel: fax: [address] [phone] Referral ID Status Reason Start Date Expiration Date Visits Re quested Visits Authorized [id number] Closed 06/22/2019 12/31/2020 1 1 Reason for Visit * Diagnostic Imaging (Routine) - Closed Specialty Diagnoses / Procedures Referred By Contac t Referred To Contact Diagnoses Special screening for osteoporosis Procedures Dexa Axial Skeleton Bone Density 1 or 2 Site Nani Mckeon NP Phone: tel: fax: [address] [phone] Referral ID Status Reason Start Date Expiration Date Visits Re quested Visits Authorized [id number] Closed 06/22/2019 12/31/2020 1 1 Encounter Details Date Type Department Care Team (Latest Contact Info) Description 07/04/2019 2:14 PM CDT - 07/04/2019 11:59 PM CDT Hospital Encounter [facility] [address] [place] [address] Tucker Pedroza MD [address] [place] [address] Nani Mckeon NP [address] [place] [address] Special screening for osteoporosis Discharge Disposition: Discharge to home or self care Social History Tobacco Use Types Packs/Day Years Used Date Smoking Tobacco: Never Smokeless Tobacco: Never Alcohol Use Standard Drinks/Week Comments No 0 (1 standard drink = 0.6 oz pur e alcohol) PHQ-2 Answer Date Recorded PHQ-2 Score 0 06/14/2019 Comments No Sex and Gender Information Value Date Recorded Sex Assigned at Not on file Legal Sex Female 8:35 AM ASSET MANAGEMENT LEAD Gender Identity Not on file Sexual Orientation Not on file documented as of this encounter Medications at Time of Discharge cloNIDine (CATAPRES) 0.1 mg tablet cloNIDine HCl 0.1 MG Oral Tablet QTY: 0 tablet Days: 0 Refills: 0 Written: 06/21/19 Patient Instructions: TAKE ONE TABLET TWICE A DAY 06/21/2019 cyanocobalamin (Vitamin B-12) 500 mcg tabletIndication s:Prevention of Vitamin B12 Deficiency Take 1 tablet (500 mcg total) by mouth daily flash glucose scanning reader ([employer] ANDIE 14 DAY READER) [facility] application every 2 (two) weeks 2 each 5 07/04/2019 turmeric root extract 500 mg capsule Take by mouth 2 (two) times a day. allopurinol (ZYLOPRIM) 100 mg tablet Take 1 tablet (100 mg total) by mouth daily 90 tablet 03/29/2019 0 amLODIPine (NORVASC) 5 mg tablet TAKE 1 TABLET DAILY 90 tablet 2 01/02/2019 9 cloNIDine (CATAPRES) 0.1 mg tablet TAKE 1 TABLET BY MOUTH TWICE DAILY 180 tablet 1 05/15/2019 0 fluticasone propion-salmeter ol (ADVAIR DISKUS) 500-50 mcg/dose diskus inhalerIndicatio ns:Maintenance Therapy for Asthma Inhale 1 puff 2 (two) times a day 180 each 1 03/29/2019 9 fluticasone propionate (FLOVENT DISKUS) 50 mcg/actuation diskus inhaler Fluticasone Propionate (Inhal) 50 MCG/BLIST Inhalation Aerosol Powder Breath Activated QTY: 0 Days: 0 Refills: 0 Written: 06/21/19 Patient Instructions: INHALE ONE PUFF TWO TIMES A DAY 06/21/2019 0 glipiZIDE (GLUCOTROL) 5 mg tablet TAKE 1 TABLET DAILY 90 tablet 3 02/20/2019 0 indomethacin (INDOCIN) 25 mg capsule Take 1 capsule (25 mg total) by mouth 3 (three) times a day as needed for pain (pain) 30 capsule 5 02/14/2019 0 indomethacin (INDOCIN) 25 mg capsule Indomethacin 25 MG Oral Capsule QTY: 0 capsule Days: 0 Refills: 0 Written: 06/21/19 Patient Instructions: TAKE ONE CAPSULE 3 TIMES A DAY NEEDED FOR PAIN 06/21/2019 4 lisinopril-hydro CHLOROthiazide (PRINZIDE,ZESTOR ETIC) 20-12.5 mg per tablet TAKE 2 TABLETS ONCE DAILY 180 tablet 3 09/26/2018 9 meloxicam (MOBIC) 15 mg tablet Meloxicam 15 [...] Procedure Name Priority Date/Time Associated Diagnosis Comments DEXA AXIAL SKELETON BONE DENSITY 1 OR MORE SITES Schedule Routine, Read Routine (OP Routine) 07/04/2019 2:41 PM CDT Special screening for osteoporosis documented in this encounter Results * Dexa Axial Skeleton Bone Density 1 or 2 Site (07/04/2019 2:41 PM CDT) Anatomical Region Laterality Modality Body N/A Other 07/04/2019 3:04 PM CDT Impressions 07/04/2019 3:05 PM CDT 1. ??NORMAL BONE MINERAL DENSITY OF THE LUMBAR SPINE. 2. ??NORMAL BONE MINERAL DENSITY OF THE LEFT HIP. ?? Ten year fracture risk (FRAX Score) for major osteoporotic fracture is not reported because all T-scores are at or above -1.0. COMMENT: W.H.O. defines the T-score of between -1 and -2.5 as osteopenia, the level at which there may be an increased risk of developing osteoporosis and fractures in the future. ??Osteoporosis is defined as T-score lower than -2.5 (significantly increased risk of fracture due to osteoporosis). ??T-score is a comparison to peak bone mineral density of young adult reference population. ??Z-score is a comparison to bone mineral density of sex and age group population. ?? Electronically signed by: Miguel Dennis M.D. Narrative 07/04/2019 3:05 PM CDT EXAM: DEXA Bone Density Axial HISTORY: Encounter for screening for osteoporosis 53-year-old postmenopausal female who states no current medical therapy. FINDINGS: LUMBAR SPINE: Mean bone mineral content is 1.258 g/cm2. The T-score is 1.9. LEFT HIP: Mean bone mineral content is 0.754 g/cm2. The neck T-score is -0.9. ?? The total T-score is 1.4. ?? Procedure Note Miguel Dennis MD - 07/04/2019 EXAM: DEXA Bone Density Axial HISTORY: Encounter for screening for osteoporosis 53-year-old postmenopausal female who states no current medical therapy. FINDINGS: LUMBAR SPINE: Mean bone mineral content is 1.258 g/cm2. The T-score is 1.9. LEFT HIP: Mean bone mineral content is 0.754 g/cm2. The neck T-score is -0.9. The total T-score is 1.4. IMPRESSION: 1. NORMAL BONE MINERAL DENSITY OF THE LUMBAR SPINE. 2. NORMAL BONE MINERAL DENSITY OF THE LEFT HIP. Ten year fracture risk (FRAX Score) for major osteoporotic fracture is not reported because all T-scores are at or above -1.0. COMMENT: W.H.O. defines the T-score of between -1 and -2.5 as osteopenia, the level at which there may be an increased risk of developing osteoporosis and fractures in the future. Osteoporosis is defined as T-score lower than -2.5 (significantly increased risk of fracture due to osteoporosis). T-score is a comparison to peak bone mineral density of young adult reference population. Z-score is a comparison to bone mineral density of sex and age group population. Electronically signed by: Miguel Dennis M.D. Nani Mckeon NP IMJyoti DXA PROCEDURES Final Resul t documented in this encounter Visit Diagnoses Diagnosis Special screening for osteoporosis documented in this encounter Care Teams District Resource Officer Relationship Specialty Start Date End Date Emelia Yang NP PCP - General Family Medicine 05/15/19 08/25/20 documented as of this encounter
--- OUTSIDE RECORDS SUMMARY | 2024-10-23 02:10 | XMS_ITS | Encounter Summary ---
Author Organization [facility] Facility Care Team Providers Care Painter Aircraft Name Role Phone Polina Rajput MD Primary Care Provider Encounter Details Date Type Department Care Team (Latest Contact Info) Description 02/13/2019 Travel Social History Tobacco Use Types Packs/Day Years Used Date Smoking Tobacco: Never Smokeless Tobacco: Never Alcohol Use Standard Drinks/Week Comments No 0 (1 standard drink = 0.6 oz pur e alcohol) Comments No Sex and Gender Information Value Date Recorded Sex Assigned at Not on file Legal Sex Female 8:35 AM NEON TUBE PUMPER Gender Identity Not on file Sexual Orientation Not on file documented as of this encounter Plan of Treatment Not on file documented as of this encounter Visit Diagnoses Not on filedocumented in this encounter Care Teams Painter Aircraft Relationship Specialty Start Date End Date Polina Rajput MD PCP - General 01/22/17 05/14/19 documented as of this encounter
--- OUTSIDE RECORDS SUMMARY | 2024-10-23 02:10 | XMS_ITS | Encounter Summary ---
Author Organization [facility] Address [address] [place] [address] Care Team Providers Care Curtain Framer Name Role Phone Emelia Yang HI Primary Care Provider [phone] Encounter Details Date Type Department Care Team (Late st Contact Info) Description 04/23/2021 Orders Only [facility] Cardiology [address] [place] [id number] Pro Maurice MD [address] [facility] [address] [place] [address] Social History Tobacco Use Types Packs/Day Years Used Date Smoking Tobacco: Never Smokeless Tobacco: Never Alcohol Use Standard Drinks/Week Comments No 0 (1 standard drink = 0.6 oz pur e alcohol) PHQ-2 Answer Date Recorded PHQ-2 Score 1 11/23/2019 Comments No Sex and Gender Information Value Date Recorded Sex Assigned at Not on file Legal Sex Female 8:35 AM APPLIED TECHNOLOGIST Gender Identity Not on file Sexual Orientation Not on file documented as of this encounter Plan of Treatment Not on file documented as of this encounter Procedures Procedure Name Priority Date/Time Associated Diagnosis Comments CARDIOLOGY DOCUMENT SCAN Routine 04/23/2021 documented in this encounter Results * SCAN - CARDIOLOGY (04/23/2021) Anatomical Region Laterality Modality Other Pro Maurice MD CV CARDIAC SERVICES PROC EDURES Final Result documented in this encounter Visit Diagnoses Not on filedocumented in this encounter Care Teams Curtain Framer Relationship Specialty Start Date End Date Emelia Yang NP PCP - General 09/18/20 10/19/22 documented as of this encounter
--- OUTSIDE RECORDS SUMMARY | 2024-10-23 02:10 | XMS_ITS | Encounter Summary ---
Author Organization [facility] Facility Care Team Providers Care Drainage Inspector Name Role Phone Emelia Yang NP Primary Care Provider [phone] Encounter Details Date Type Department Care Team (Latest Contact Info) Description 11/23/2019 Travel Social History Tobacco Use Types Packs/Day Years Used Date Smoking Tobacco: Never Smokeless Tobacco: Never Alcohol Use Standard Drinks/Week Comments No 0 (1 standard drink = 0.6 oz pur e alcohol) PHQ-2 Answer Date Recorded PHQ-2 Score 1 11/23/2019 Comments No Sex and Gender Information Value Date Recorded Sex Assigned at Not on file Legal Sex Female 8:35 AM CORDUROY CUTTER OPERATOR Gender Identity Not on file Sexual Orientation Not on file documented as of this encounter Plan of Treatment Not on file documented as of this encounter Visit Diagnoses Not on filedocumented in this encounter Care Teams Drainage Inspector Relationship Specialty Start Date End Date Emelia Yang NP PCP - General Family Medicine 05/15/19 08/25/20 documented as of this encounter
--- OUTSIDE RECORDS SUMMARY | 2024-10-23 02:10 | XMS_ITS | Encounter Summary ---
Author Organization [facility] Facility Care Team Providers Care Compensation Advisor Name Role Phone Emelia Yang NP Primary Care Provider [phone] Encounter Details Date Type Department Care Team (Latest Contact Info) Description 07/04/2019 Travel Social History Tobacco Use Types Packs/Day Years Used Date Smoking Tobacco: Never Smokeless Tobacco: Never Alcohol Use Standard Drinks/Week Comments No 0 (1 standard drink = 0.6 oz pur e alcohol) PHQ-2 Answer Date Recorded PHQ-2 Score 0 06/14/2019 Comments No Sex and Gender Information Value Date Recorded Sex Assigned at Not on file Legal Sex Female 8:35 AM PLATEMAKER Gender Identity Not on file Sexual Orientation Not on file documented as of this encounter Plan of Treatment Not on file documented as of this encounter Visit Diagnoses Not on filedocumented in this encounter Care Teams Compensation Advisor Relationship Specialty Start Date End Date Emelia Yang NP PCP - General Family Medicine 05/15/19 08/25/20 documented as of this encounter
--- OUTSIDE RECORDS SUMMARY | 2024-10-23 02:10 | XMS_ITS | Encounter Summary ---
Author Organization [facility] Address [address] [place] [address] Care Team Providers Care Spray Painter Helper Name Role Phone Polina Rajput MD Primary Care Provider Encounter Details Date Type Department Care Team (Late st Contact Info) Description 03/14/2019 Telephone [facility] [address] [place] [address] Polina Rajput MD [address] [address] Social History Tobacco Use Types Packs/Day Years [...] encounter Miscellaneous Notes * Telephone Encounter - Polina Rajput MD - 03/16/2019 9:22 AM CDT Lab order for NRL has been generated. Thanks. * Telephone Encounter - Nickie Montalvo MA - 03/14/2019 9:57 AM CDT Pt wanting her uric acid level checked, she will use NRL documented in this encounter Plan of Treatment Not on file documented as of this encounter Visit Diagnoses Not on filedocumented in this encounter Care Teams Spray Painter Helper Relationship Specialty Start Date End Date Polina Rajput MD PCP - General 01/22/17 05/14/19 documented as of this encounter
--- OUTSIDE RECORDS SUMMARY | 2024-10-23 02:10 | XMS_ITS | Encounter Summary ---
Author Organization [facility] Address [address] [place] [address] Care Team Providers Care Aircraft Structural Design Engineer Name Role Phone Polina Rajput MD Primary Care Provider Reason for Visit * Reason Comments bump on R hand middle finger Encounter Details Date Type Department Care Team (Late st Contact Info) Description 02/13/2019 10:45 AM CDT Office Visit [facility] [address] [place] [address] Polina Rajput MD [address] [id number] Acute gout of right hand, unspecified cause (Primary Dx) Social History Tobacco Use Types Packs/Day Years Used Date Smoking Tobacco: Never Smokeless Tobacco: Never Alcohol Use Standard Drinks/Week Comments No 0 (1 standard drink = 0.6 oz pur e alcohol) Comments No Sex and Gender Information Value Date Recorded Sex Assigned at Not on file Legal Sex Female 8:35 AM PLATING DEPARTMENT HELPER Gender Identity Not on file Sexual Orientation Not on file documented as of this encounter Last Filed Vital Signs Vital Sign Reading Time Taken Comments Blood Pressure 171/98 02/13/2019 10:52 AM CDT Pulse - - Temperature 36.9 ??C (98.4 ??F) 02/13/2019 10:52 AM C DT Respiratory Rate - - Oxygen Saturation 95% 02/13/2019 10:52 AM CDT Inhaled Oxygen Concentration - - Weight 105.7 kg (233 lb) 02/13/2019 10:52 AM CDT Height 154.9 cm (5' 1 ) 02/13/2019 10:52 AM CDT Body Mass Index 44.02 02/13/2019 10:52 AM CDT documented in this encounter Ordered Prescriptions Prescription Sig Dispense Quantity Refills Last Filled Start Date End Date indomethacin (INDOCIN) 25 mg capsule Take 1 capsule (25 mg total) by mouth 3 (three) times a day as needed for pain (pain) 30 capsule 5 02/13/2019 9 documented in this encounter Progress Notes * Polina Rajput MD - 02/13/2019 10:45 AM CDT Images from the original note were not included. Subjective/Objective Patient ID: Rosa Babb is a 53 y.o. female. Chief Complaint bump on R hand middle finger HPI patient presents with chief complaint of above. Duration now is of the past 3-4 months. It is increasing in size. It is somewhat tender. Patient denies any specific trauma or injury. She did try a course of antibiotics without significant improvement in symptoms. Incidentally, patient notes that she has some swelling in her right ankle that usually is exacerbated whenever she eats seafood. She has not been told in the past that she has had history of gout. Denies chest pain shortness of breath or other associated symptoms. Review of Systems Constitutional: Positive for fatigue. Negative for activity change, appetite change, chills, diaphoresis, fever and unexpected weight change. HENT: Negative for congestion. Respiratory: Negative for cough, choking, chest tightness and stridor. Cardiovascular: Negative for chest pain. Musculoskeletal: Positive for joint swelling. Negative for arthralgias and back pain. Physical Exam Constitutional: She appears well-developed and well-nourished. No distress. HENT: Head: Atraumatic. Right Ear: External ear normal. Cardiovascular: Normal rate and regular rhythm. Pulmonary/Chest: Effort normal and breath sounds normal. No respiratory distress. Abdominal: Soft. Bowel sounds are normal. Musculoskeletal: Hands: Skin: Skin is warm. Rosa was seen today for bump on r hand middle finger. Diagnoses and all orders for this visit: Acute gout of right hand, unspecified cause Comments: Highly suspect this diagnosis. Treatment with indomethacin per EMR. Patient temporarily stop meloxicam. Check uric acid level. Adjust treatment plan accordi Orders: - Uric acid; Future Other orders - indomethacin (INDOCIN) 25 mg capsule; Take 1 capsule (25 mg total) by mouth 3 (three) times a dayas needed for pain (pain) documented in this encounter Plan of Treatment Not on file documented as of this encounter Results * (ABNORMAL) Uric acid (02/13/2019 11:52 AM CDT) Uric acid 7.5(H) 2.5 - 7.0 mg/dL JEFE FOX ([place]) Blood specimen (specimen) 02/13/2019 11:52 AM CDT 02/13/2019 2:22 PM CDT Narrative JEFE FOX ([place]) - 02/13/2019 2:40 PM CDT Polina Rajput MD LAB BLOOD ORDERABLES F inal Result JEFE FOX ([place]) 1 [facility] Department [place] [address] documented in this encounter Visit Diagnoses Diagnosis Acute gout of right hand, unspecified cause- Primary Acute gout of right hand, unspecified cause Type 2 diabetes mellitus with hyperglycemia, unspecified whether halfway insulin use (HCC) documented in this encounter Discontinued Medications Medication Sig Discontinue Reason Start Date End Da te cloNIDine (CATAPRES) 0.1 mg tablet Therapy completed 11/06/2018 02/13/2019 documented as of this encounter Care Teams Aircraft Structural Design Engineer Relationship Specialty Start Date End Date Polina Rajput MD PCP - General 01/22/17 05/14/19 documented as of this encounter
--- OUTSIDE RECORDS SUMMARY | 2024-10-23 02:10 | XMS_ITS | Encounter Summary ---
Author Organization [facility] Address [address] [facility] [address] [place] [id number] Care Team Providers Care Oracle Reports Developer Name Role Phone Emelia Yang NP Primary Care Provider [phone] Reason for Visit * Reason Comments Hood Eye Started last night m atted when woke up, painful Encounter Details Date Type Department Care Team (Late st Contact Info) Description 12/06/2019 8:00 AM ARTIST SCIENTIFIC Office Visit [facility] Care [address] [facility] [place] [address] [place] [address] Kiara Man NP [address] [facility] [place] [address] Acute conjunctivitis of left eye, unspecified acute conjunctivitis type (Primary Dx) Social History Tobacco Use Types Packs/Day Years Used Date Smoking Tobacco: Never Smokeless Tobacco: Never Alcohol Use Standard Drinks/Week Comments No 0 (1 standard drink = 0.6 oz pur e alcohol) PHQ-2 Answer Date Recorded PHQ-2 Score 1 11/23/2019 Comments No Sex and Gender Information Value Date Recorded Sex Assigned at Not on file Legal Sex Female 8:35 AM ARTIST SCIENTIFIC Gender Identity Not on file Sexual Orientation Not on file documented as of this encounter Last Filed Vital Signs Vital Sign Reading Time Taken Comments Blood Pressure 182/96 12/06/2019 8:20 AM ARTIST SCIENTIFIC Pulse 75 12/06/2019 8:20 AM ARTIST SCIENTIFIC Temperature 36.8 ??C (98.3 ??F) 12/06/2019 8:20 AM CS T Respiratory Rate 18 12/06/2019 8:20 AM ARTIST SCIENTIFIC Oxygen Saturation 97% 12/06/2019 8:20 AM ARTIST SCIENTIFIC Inhaled Oxygen Concentration - - Weight 106.1 kg (234 lb) 12/06/2019 8:20 AM ARTIST SCIENTIFIC Height 157.5 cm (5' 2 ) 12/06/2019 8:20 AM ARTIST SCIENTIFIC Body Mass Index 42.8 12/06/2019 8:20 AM ARTIST SCIENTIFIC documented in this encounter Patient Instructions * Patient Instructions* Kiara Zaragoza NP - 12/06/2019 8:00 AM ARTIST SCIENTIFIC Use your eye drops or ointment as directed Practice good hand hygiene before and after administering medication Wash your hands if you touch your eye Do not touch the tip of the medication bottle to your eye Follow up with PCP if you are not getting better in a 3-4 days Go to the ER if you experience deep eye pain or vision loss/changes ST SCIENTIFIC documented in this encounter Ordered Prescriptions Prescription Sig Dispense Quantity Refills Last Filled Start Date End Date ofloxacin (OCUFLOX) 0.3 % ophthalmic solutionIndications :Acute conjunctivitis of left eye, unspecified acute conjunctivitis type Administer 1 drop into both eyes every 4 (four) hours for 5 days 10 mL 12/06/2019 0 documented in this encounter Progress Notes * Kiara Zaragoza NP - 12/06/2019 8:00 AM CST Subjective/Objective Patient ID: Rosa Babb is a 54 y.o. female. Chief Complaint Hood Eye (Started last night matted when woke up, painful ) Presents to clinic for left eye redness, drainage, itching & pain that started today. She woke up w her eye matted shut. She has had a little bit of cold symptoms & has taken sudafed. 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 Conjunctivitis The current episode started today. The onset was sudden. The problem has been unchanged. Nothing relieves the symptoms. Associated symptoms include eye itching, congestion, cough, eye discharge, eye pain and eye redness. Pertinent negatives include no fever, no nausea, no vomiting and no headaches. Review of Systems Constitutional: Negative for chills and fever. HENT: Positive for congestion and postnasal drip. Eyes: Positive for pain, discharge, redness and itching. Respiratory: Positive for cough. Gastrointestinal: Negative for nausea and vomiting. Neurological: Negative for headaches. Physical Exam Constitutional: Appearance: She is well-developed. Eyes: General: Left eye: Discharge (yellow) present. Extraocular Movements: Extraocular movements intact. Conjunctiva/sclera: Left eye: Left conjunctiva is injected. Neck: Musculoskeletal: Normal range of motion. Cardiovascular: Rate and Rhythm: Normal rate and regular rhythm. Pulmonary: Effort: Pulmonary effort is normal. Breath sounds: Normal breath sounds. Musculoskeletal: Normal range of motion. Skin: General: Skin is warm and dry. Neurological: Mental Status: She is alert and oriented to person, place, and time. Psychiatric: Speech: Speech normal. Behavior: Behavior normal. Vitals: 12/06/19 0820 BP: (!) 182/96 BP Location: Left arm Patient Position: Sitting Pulse: 75 Resp: 18 Temp: 36.8 ??C (98.3 ??F) TempSrc: Oral SpO2: 97% Weight: 106.1 kg (234 lb) Height: 157.5 cm (5' 2 ) Assessment/Plan Use your eye drops or ointment as directed Practice good hand hygiene before and after administering medication Wash your hands if you touch your eye Do not touch the tip of the medication bottle to your eye Follow up with PCP if you are not getting better in a 3-4 days Go to the ER if you experience deep eye pain or vision loss/changes Diagnoses and all orders for this visit: Acute conjunctivitis of left eye, unspecified acute conjunctivitis type (Primary) - ofloxacin (OCUFLOX) 0.3 % ophthalmic solution; Administer 1 drop into both eyes every 4 (four) hours for 5 days Disposition- Discussed medications dosages, usage & potential side effects. Risks and interactions reviewed with patient. Indications for testing reviewed. Patient has been instructed to follow up w PCP or go to ER for any signs or symptoms that are of concern or worsening. Patient verbalizes understanding. The patient was given the opportunity to ask all questions and to have all questions answered. Patient is in agreement with the plan of care Kiara Zaragoza NP ST [facility]IFIC documented in this encounter Plan of Treatment Not on file documented as of this encounter Visit Diagnoses Diagnosis Acute conjunctivitis of left eye, unspecified acute conjunctivitis type- Primary documented in this encounter Discontinued Medications Medication Sig Discontinue Reason Start Date End Da te fluticasone propionate (FLOVENT DISKUS) 50 mcg/actuation diskus inhaler Fluticasone Propionate (Inhal) 50 MCG/BLIST Inhalation Aerosol Powder Breath Activated QTY: 0 Days: 0 Refills: 0 Written: 06/21/19 Patient Instructions: INHALE ONE PUFF TWO TIMES A DAY Duplicate order 06/21/2019 12/06/2019 documented as of this encounter Historical Medications * This list may reflect changes made after this encounter. cloNIDine (CATAPRES) 0.1 mg tablet cloNIDine HCl 0.1 MG Oral Tablet QTY: 0 tablet Days: 0 Refills: 0 Written: 06/21/19 Patient Instructions: TAKE ONE TABLET TWICE A DAY 06/21/2019 indomethacin (INDOCIN) 25 mg capsule Indomethacin 25 MG Oral Capsule QTY: 0 capsule Days: 0 Refills: 0 Written: 06/21/19 Patient Instructions: TAKE ONE CAPSULE 3 TIMES A DAY NEEDED FOR PAIN 06/21/2019 4 fluticasone propionate (FLOVENT DISKUS) 50 mcg/actuation diskus inhaler Fluticasone Propionate (Inhal) 50 MCG/BLIST Inhalation Aerosol Powder Breath Activated QTY: 0 Days: 0 Refills: 0 Written: 06/21/19 Patient Instructions: INHALE ONE PUFF TWO TIMES A DAY 06/21/2019 0 meloxicam (MOBIC) 15 mg tablet Meloxicam 15 MG Oral Tablet QTY: 0 tablet Days: 0 Refills: 0 Written: 06/21/19 Patient Instructions: TAKE ONE TABLET ONCE A DAY 06/21/2019 4 added in this encounter Care Teams Oracle Reports Developer Relationship Specialty Start Date End Date Emelia Yang NP PCP - General Family Medicine 05/15/19 08/25/20 documented as of this encounter
--- OUTSIDE RECORDS SUMMARY | 2024-10-23 02:10 | XMS_ITS | Encounter Summary ---
Author Organization [facility] Address [address] [facility] [address] [place] [address] Care Team Providers Care Director On Air Name Role Phone Trey Emelia CABLE SPLICER APPRENTICE Primary Care Provider [phone] Reason for Visit * Reason Comments Cough Sore throat X7 days Encounter Details Date Type Department Care Team (Late st Contact Info) Description 07/15/2022 1:15 PM CDT Office Visit [facility] [address] [facility] [place] [address] Kiara Man NP [address] [facility] [place] [address] Upper respiratory tract infection, unspecified type (Primary Dx) Social History Tobacco Use [...] on file 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 Gender Identity Not on file Sexual Orientation Not on file documented as of this encounter Last Filed Vital Signs Vital Sign Reading Time Taken Comments Blood Pressure 142/82 07/15/2022 1:18 PM CDT Pulse 91 07/15/2022 1:18 PM CDT Temperature 37.4 ??C (99.3 ??F) 07/15/2022 1:18 PM CD T Respiratory Rate 16 07/15/2022 1:18 PM CDT Oxygen Saturation 97% 07/15/2022 1:18 PM CDT Inhaled Oxygen Concentration - - Weight 106.1 kg (233 lb 14.5 oz) 07/15/2022 1:18 PM CDT Height 157.5 cm (5' 2.01 ) 07/15/2022 1:18 PM CD T Body Mass Index 42.77 07/15/2022 1:18 PM CDT documented in this encounter Patient Instructions * Patient Instructions* Kiara Man NP - 07/15/2022 1:15 PM CDT Complete any medications as prescribed You will need to take OTC medications Mucinex for chest congestion Sudafed for nasal/head congestion Zyrtec for nasal drainage Flonase for sinuses Dayquil/Delysm for cough Tylenol/Motrin for fever Drink plenty of fluids to stay hydrated Get plenty of rest If your symptoms worsen or you experience shortness of breath, RTC or go to ER. If you have been prescribed any medications, take them as directed documented in this encounter Ordered Prescriptions Prescription Sig Dispense Quantity Refills Last Filled Start Date End Date azithromycin (ZITHROMAX) 250 mg tabletIndications: Upper respiratory tract infection, unspecified type Take 2 tablets the first day, then 1 tablet daily for 4 days. 6 tablet 07/15/2022 4 documented in this encounter Progress Notes * Kiara Man NP - 07/15/2022 1:15 PM CDT Images from the original note were not included. Subjective/Objective Patient ID: Rosa Babb is a 56 y.o. female. Chief Complaint Cough (Sore throat X7 days) Presents to clinic for sore throat, cough, ear pain x1 week. She has taken sudafed, mucinex, tylenol. Just completed treatments for breast cancer. Cough Associated symptoms include ear pain, headaches, myalgias, postnasal drip, rhinorrhea and a sore throat. Pertinent negatives include no fever, rash or shortness of breath. Review of Systems Constitutional: Positive for fatigue. Negative for activity change, appetite change and fever. HENT: Positive for ear pain, postnasal drip, rhinorrhea and sore throat. Negative for congestion, ear discharge and sinus pressure. Eyes: Negative for discharge. Respiratory: Positive for cough. Negative for shortness of breath. Gastrointestinal: Negative for diarrhea, nausea and vomiting. Musculoskeletal: Positive for myalgias. Skin: Negative for rash. Neurological: Positive for headaches. Hematological: Negative for adenopathy. Physical Exam Vitals reviewed. Constitutional: General: She is not in acute distress. Appearance: Normal appearance. She is well-developed. She is not ill-appearing. HENT: Head: Normocephalic. Right Ear: Tympanic membrane, ear canal and external ear normal. Left Ear: Tympanic membrane, ear canal and external ear normal. Nose: No congestion or rhinorrhea. Right Sinus: No maxillary sinus tenderness or frontal sinus tenderness. Left Sinus: No maxillary sinus tenderness or frontal sinus tenderness. Mouth/Throat: Lips: [place]. Mouth: Mucous membranes are moist. Pharynx: Oropharynx is clear. Eyes: General: Right eye: No discharge. Left eye: No discharge. Conjunctiva/sclera: Conjunctivae normal. Cardiovascular: Rate and Rhythm: Normal rate and regular rhythm. Pulmonary: Effort: Pulmonary effort is normal. No respiratory distress. Breath sounds: Normal breath sounds and air entry. Abdominal: Tenderness: There is no abdominal tenderness. Musculoskeletal: General: Normal range of motion. Cervical back: Neck supple. Lymphadenopathy: Head: Right side of head: No tonsillar adenopathy. Left side of head: No tonsillar adenopathy. Cervical: No cervical adenopathy. Skin: General: Skin is warm and dry. Findings: No rash. Neurological: Mental Status: She is alert and oriented to person, place, and time. Mental status is at baseline. Psychiatric: Attention and Perception: Attention normal. Mood and Affect: Mood normal. Behavior: Behavior normal. Behavior is cooperative. Thought Content: Thought content normal. Judgment: Judgment normal. Vitals: 07/15/22 1318 BP: 142/82 BP Location: Right arm Patient Position: Sitting Pulse: 91 Resp: 16 Temp: 37.4 ??C (99.3 ??F) TempSrc: Oral SpO2: 97% Weight: 106.1 kg (233 lb 14.5 oz) Height: 157.5 cm (5' 2.01 ) Assessment/Plan Complete any medications as prescribed You will need to take OTC medications Mucinex for chest congestion Sudafed for nasal/head congestion Zyrtec for nasal drainage Flonase for sinuses Dayquil/Delysm for cough Tylenol/Motrin for fever Drink plenty of fluids to stay hydrated Get plenty of rest If your symptoms worsen or you experience shortness of breath, RTC or go to ER. If you have been prescribed any medications, take them as directed Diagnoses and all orders for this visit: Upper respiratory tract infection, unspecified type (Primary) - azithromycin (ZITHROMAX) 250 mg tablet; Take 2 tablets the first day, then 1 tablet daily for 4 days. No results found for this or any previous visit (from the past 4 hour(s)). Patient Education: Disposition Treatment plan including expectations, follow up, and return precautions discussed with patient/parent, verbalizes understanding. Medication dosage, use, and potential adverse reactions discussed with patient/parent. Advised to follow up with PCP if symptoms do not resolve as expected or sooner if condition worsens. Signs/symptoms warranting ER evaluation reviewed. Patient and/or guardian was given an opportunity to ask questions, questions answered. Kiara Man NP documented in this encounter Plan of Treatment Not on file documented as of this encounter Visit Diagnoses Diagnosis Upper respiratory tract infection, unspecified type- Primary documented in this encounter Care Teams Director On Air Relationship Specialty Start Date End Date Emelia Yang NP PCP - General 09/18/20 10/19/22 documented as of this encounter
--- OUTSIDE RECORDS SUMMARY | 2024-10-23 02:10 | XMS_ITS | Encounter Summary ---
Author Organization [facility] Address [address] [place] [address] Care Team Providers Care Balance Truing Inspector Name Role Phone Polina Rajput MD Primary Care Provider Reason for Referral * Diagnostic Imaging (Routine) - Closed Specialty Diagnoses / Procedures Referred By Vi jackson Referred To Contact Diagnoses Breast screening, unspecified Procedures Screening Mammogram Bilateral W Polina Call MD Phone: tel: fax: [address] [phone] Referral ID Status Reason Start Date Expiration Date Visits Re quested Visits Authorized [id number] Closed 04/03/2019 10/12/2020 1 1 Reason for Visit * Diagnostic Imaging (Routine) - Closed Specialty Diagnoses / Procedures Referred By Vi jackson Referred To Contact Diagnoses Breast screening, unspecified Procedures Screening Mammogram Bilateral W Polina Call MD Phone: tel: fax: [address] [phone] Referral ID Status Reason Start Date Expiration Date Visits Re quested Visits Authorized [id number] Closed 04/03/2019 10/12/2020 1 1 Encounter Details Date Type Department Care Team (Late st Contact Info) Description 04/18/2019 10:01 AM CDT - 04/18/2019 11:59 PM CDT Hospital Encounter [facility] [address] [place] [address] Polina Rapjut MD [address] [facility] [address] [address] Breast screening, unspecified Discharge Disposition: Discharge to home or self care Social History Tobacco Use Types Packs/Day Years Used Date Smoking Tobacco: Never Smokeless Tobacco: Never Alcohol Use Standard Drinks/Week Comments No 0 (1 standard drink = 0.6 oz pur e alcohol) Comments No Sex and Gender Information Value Date Recorded Sex Assigned at Not on file 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 Gender Identity Not on file Sexual Orientation Not on file documented as of this encounter Last Filed Vital Signs Vital Sign Reading Time Taken Comments Blood Pressure - - Pulse - - Temperature - - Respiratory Rate - - Oxygen Saturation - - Inhaled Oxygen Concentration - - Weight 105.7 kg (233 lb) 04/18/2019 10:09 AM CDT Height 157.5 cm (5' 2 ) 04/18/2019 10:09 AM CDT Body Mass Index 42.62 04/18/2019 10:09 AM CDT documented in this encounter Medications at Time of Discharge cyanocobalamin (Vitamin B-12) 500 mcg tabletIndications :Prevention of Vitamin B12 Deficiency Take 1 tablet (500 mcg total) by mouth daily turmeric root extract 500 mg capsule Take by mouth 2 (two) times a day. allopurinol (ZYLOPRIM) 100 mg tablet Take 1 tablet (100 mg total) by mouth daily 90 tablet 03/29/2019 11/23/2019 amLODIPine (NORVASC) 5 mg tablet TAKE 1 TABLET DAILY 90 tablet 2 01/02/2019 10/04/2019 cloNIDine (CATAPRES) 0.1 mg tablet Take 1 tablet (0.1 mg total) by mouth 2 (two) times a day. 60 tablet 5 04/18/2018 05/14/2019 fluticasone propion-salmetero l (ADVAIR DISKUS) 500-50 mcg/dose diskus inhalerIndication s:Maintenance Therapy for Asthma Inhale 1 puff 2 (two) times a day 180 each 1 03/29/2019 09/20/2019 glipiZIDE (GLUCOTROL) 5 mg tablet TAKE 1 TABLET DAILY 90 tablet 3 02/20/2019 11/23/2019 indomethacin (INDOCIN) 25 mg capsule Take 1 capsule (25 mg total) by mouth 3 (three) times a day as needed for pain (pain) 30 capsule 5 02/14/2019 11/23/2019 lisinopril-hydroC HLOROthiazide (PRINZIDE,ZESTORE TIC) 20-12.5 mg per tablet TAKE 2 TABLETS ONCE DAILY 180 tablet 3 09/26/2018 09/27/2019 documented as of this encounter Discharge Disposition Disposition Code Departure Means Destination Discharge to home or self care documented in this encounter Progress Notes * Polina Rajput MD - 04/18/2019 11:59 PM CDT Mammogram is negative for malignancy. Repeat in one year. Thanks. documented in this encounter Plan of Treatment Not on file documented as of this encounter Procedures Procedure Name Priority Date/Time Associated Diagnosis Comments SCREENING MAMMOGRAM BILATERAL W JESS Schedule Routine, Read Routine (OP Routine) 04/18/2019 10:15 AM CDT Breast screening, unspecified documented in this encounter Results * Screening Mammogram Bilateral W Jess (04/18/2019 10:15 AM CDT) Anatomical Region Laterality Modality Breast Bilateral Mammography 04/18/2019 10:2 0 AM CDT Impressions 04/18/2019 10:21 AM CDT 1. ??NO DEFINITIVE MAMMOGRAPHIC EVIDENCE OF MALIGNANCY. 2. ??ANNUAL FOLLOW-UP RECOMMENDED. BI-RADS 1 Electronically signed by: Lyndsey Lockhart 04/18/2019 10:21 AM CDT SCREENING MAMMOGRAM BILATERAL W JESS HISTORY: Encounter for screening mammogram for malignant [...] MD IMG MAMMO PROCEDURES F inal Result documented in this encounter Visit Diagnoses Diagnosis Breast screening, unspecified documented in this encounter Care Teams Balance Truing Inspector Relationship Specialty Start Date End Date Polina Rajput MD PCP - General 01/22/17 05/14/19 documented as of this encounter
--- OUTSIDE RECORDS SUMMARY | 2024-10-23 02:10 | XMS_ITS | Encounter Summary ---
Author Organization [facility] Medical Group Address [address] [place] [address] Care Team Providers Care Environmental Technical Officer Name Role Phone Polina Rajput MD Primary Care Provider Reason for Visit * Reason Comments Diabetes Encounter Details Date Type Department Care Team (Late st Contact Info) Description 03/29/2019 11:00 AM CDT Office Visit [facility] [address] [place] [address] Polina Rajput MD [address] [address] Gout involving toe, unspecified cause, unspecified chronicity, unspecified laterality (Primary Dx) Social History Tobacco Use Types Packs/Day Years Used Date Smoking Tobacco: Never Smokeless Tobacco: Never Alcohol Use Standard Drinks/Week Comments No 0 (1 standard drink = 0.6 oz pur e alcohol) Comments No Sex and Gender Information Value Date Recorded Sex Assigned at Not on file 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 Gender Identity Not on file Sexual Orientation Not on file documented as of this encounter Last Filed Vital Signs Vital Sign Reading Time Taken Comments Blood Pressure 156/82 03/29/2019 11:13 AM CDT Pulse 80 03/29/2019 11:13 AM CDT Temperature - - Respiratory Rate - - Oxygen Saturation 97% 03/29/2019 11:13 AM CDT Inhaled Oxygen Concentration - - Weight 105.7 kg (233 lb) 03/29/2019 11:13 AM CDT Height 154.9 cm (5' 1 ) 03/29/2019 11:13 AM CDT Body Mass Index 44.02 03/29/2019 11:13 AM CDT documented in this encounter Ordered Prescriptions Prescription Sig Dispense Quantity Refills Last Filled Start Date End Date fluticasone propion-salmeterol (ADVAIR DISKUS) 500-50 mcg/dose diskus inhalerIndications :Maintenance Therapy for Asthma Inhale 1 puff 2 (two) times a day 180 each 1 03/29/2019 09/20/2019 allopurinol (ZYLOPRIM) 100 mg tablet Take 1 tablet (100 mg total) by mouth daily 90 tablet 03/29/2019 11/23/2019 documented in this encounter Progress Notes * Polina Rajput MD - 03/29/2019 11:00 AM CDT Subjective/Objective Patient ID: Rosa Babb is a 53 y.o. female. 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 Uric acid levels are elevated, but she had significant improvement this go around of her symptoms after completing indomethacin therapy. She is interested in taking chronic m edication to help with prevent recurrences. She has also looked at her diet and is intentionally trying to reduce her intake through her food choices. Review of Systems Constitutional: Positive for activity change and appetite change. Negative for chills, diaphoresis,fever and unexpected weight change. Respiratory: Negative for cough, choking, chest tightness, shortness of breath, wheezing and stridor. Cardiovascular: Negative for chest pain, palpitations and leg swelling. Gastrointestinal: Negative for abdominal distention and abdominal pain. Endocrine: Negative for cold intolerance and heat intolerance. Genitourinary: Negative for difficulty urinating, dysuria, flank pain, frequency, hematuria and urgency. Musculoskeletal: Negative for arthralgias and back pain. Skin: Negative for color change. Neurological: Negative for dizziness, facial asymmetry, light-headedness and headaches. Hematological: Negative for adenopathy. Does not bruise/bleed easily. Physical Exam Constitutional: She appears well-developed and well-nourished. No distress. HENT: Right Ear: External ear normal. Left Ear: External ear normal. Mouth/Throat: Oropharynx is clear and moist. Neck: Normal range of motion. Neck supple. Cardiovascular: Normal rate and regular rhythm. Pulmonary/Chest: Effort normal and breath sounds normal. No stridor. No respiratory distress. She has no wheezes. Abdominal: Soft. Bowel sounds are normal. She exhibits no distension. Skin: Skin is warm and dry. Psychiatric: She has a normal mood and affect. Her behavior is normal. Rosa was seen today for diabetes. Diagnoses and all orders for this visit: Gout involving toe, unspecified cause, unspecified chronicity, unspecified laterality Comments: starting allopurinol per emr. use indomethacin only for acute attacks. consider recheck levels in 10-12 wks. Other orders - allopurinol (ZYLOPRIM) 100 mg tablet; Take 1 tablet (100 mg total) by mouth daily - fluticasone propion-salmeterol (ADVAIR DISKUS) 500-50 mcg/dose diskus inhaler; Inhale 1 puff 2 (two) times a day documented in this encounter Plan of Treatment Not on file documented as of this encounter Visit Diagnoses Diagnosis Gout involving toe, unspecified cause, unspecified chronicity, unspecified laterality- Primary documented in this encounter Discontinued Medications Medication Sig Discontinue Reason Start Date End Da te aspirin 81 mg tablet take 1 tablet (81MG) by ORAL route every day Therapy completed 01/15/2010 03/29/2019 fluticasone propion-salmeterol (ADVAIR DISKUS) 500-50 mcg/dose diskus inhaler Inhale 1 puff 2 (two) times a day Reorder 03/10/2019 03/29/2019 meloxicam (MOBIC) 15 mg tablet Take 1 tablet (15 mg total) by mouth daily. Therapy completed 08/01/2018 03/29/2019 documented as of this encounter Care Teams Environmental Technical Officer Relationship Specialty Start Date End Date Polina Rajput MD PCP - General 01/22/17 05/14/19 documented as of this encounter
--- OUTSIDE RECORDS SUMMARY | 2024-10-23 02:10 | XMS_ITS | Encounter Summary ---
Author Organization [facility] Care Team Providers Care Warehouse Associate Driver Name Role Phone Emelia Yang NP Primary Care Provider [phone] Encounter Details Date Type Department Care Team (Latest Contact Info) Description 01/23/2020 Travel Social History Tobacco Use Types Packs/Day Years Used Date Smoking Tobacco: Never Smokeless Tobacco: Never Alcohol Use Standard Drinks/Week Comments No 0 (1 standard drink = 0.6 oz pur e alcohol) PHQ-2 Answer Date Recorded PHQ-2 Score 1 11/23/2019 Comments No Sex and Gender Information Value Date Recorded Sex Assigned at Not on file 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 No / Unsure 01/23/2020 11:11 AM CDT documented as of this encounter Plan of Treatment Not on file documented as of this encounter Visit Diagnoses Not on filedocumented in this encounter Care Teams Warehouse Associate Driver Relationship Specialty Start Date End Date Emelia Yang NP PCP - General Family Medicine 05/15/19 08/25/20 documented as of this encounter
--- OUTSIDE RECORDS SUMMARY | 2024-10-23 02:10 | XMS_ITS | Encounter Summary ---
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
--- OUTSIDE RECORDS SUMMARY | 2024-10-23 02:10 | XMS_ITS | Encounter Summary ---
Author Organization [facility] Healthcare Address [address] [place] [address] Care Team Providers Care Facilities Manager Name Role Phone Emelia Yang NP Primary Care Provider [phone] Encounter Details Date Type Department Care Team (Late st Contact Info) Description 11/14/2019 3:25 PM GENERAL OFFICE DISPATCHER Lab [address] Irlanda Keating, [place] [address] [facility] [address] [place] [address] Emelia Yang NP [address] [facility] [address] [place], [place] [id number] Social History Tobacco Use Types Packs/Day Years Used Date Smoking Tobacco: Never Smokeless Tobacco: Never Alcohol Use Standard Drinks/Week Comments No 0 (1 standard drink = 0.6 oz pur e alcohol) PHQ-2 Answer Date Recorded PHQ-2 Score 0 06/14/2019 Comments No Sex and Gender Information Value Date Recorded Sex Assigned at Not on file 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
--- OUTSIDE RECORDS SUMMARY | 2024-10-23 02:10 | XMS_ITS | Encounter Summary ---
Author Organization [facility] Medical Group Address [address] [place] [address] Care Team Providers Care Powder Expert Name Role Phone Polina Rajput MD Primary Care Provider Encounter Details Date Type Department Care Team (Late st Contact Info) Description 01/02/2019 Orders Only [facility] of [address] [place] [address] Polina Rajput MD [address] [facility] [address] [place] [address] Social History Tobacco Use Types Packs/Day Years Used Date Smoking Tobacco: Never Smokeless Tobacco: Never Alcohol Use Standard Drinks/Week Comments No 0 (1 standard drink = 0.6 oz pur e alcohol) Comments No Sex and Gender Information Value Date Recorded Sex Assigned at Not on file 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
--- OUTSIDE RECORDS SUMMARY | 2024-10-23 02:10 | XMS_ITS | Encounter Summary ---
Author Organization [facility] Medical Group Address [address] [facility] [address] [place] [address] Care Team Providers Care Hay Farmer Name Role Phone Rosa Shi MD Primary Care Provider Reason for Visit * Reason Comments COVID-19 EVALUATION Fatigue, ear pain, p nd, nasal discharge, sinus pressure, sore throat, cough, sob, BA, JULIAN, loss of taste & smell. Sx onset 10/13 Encounter Details Date Type Department Care Team (Late st Contact Info) Description 10/20/2022 11:15 AM GRADUATE NURSE Office Visit [facility] [address] [place] [address] [place] [address] Cathy Taylor, VICKEY [address] [place] [address] Acute maxillary sinusitis, recurrence not specified (Primary Dx); Sore throat Social History Tobacco Use Types Packs/Day Years [...] on file Legal Sex Female 8:35 AM GRADUATE NURSE Gender Identity Not on file Sexual Orientation Not on file documented as of this encounter Last Filed Vital Signs Vital Sign Reading Time Taken Comments Blood Pressure 144/78 10/20/2022 11:09 AM GRADUATE NURSE Pulse 94 10/20/2022 11:09 AM GRADUATE NURSE Temperature 37 ??C (98.6 ??F) 10/20/2022 11:09 AM GRADUATE NURSE Respiratory Rate 18 10/20/2022 11:09 AM GRADUATE NURSE Oxygen Saturation 96% 10/20/2022 11:09 AM GRADUATE NURSE Inhaled Oxygen Concentration - - Weight 105.7 kg (233 lb) 10/20/2022 11:09 AM GRADUATE NURSE Height 157.5 cm (5' 2.01 ) 10/20/2022 11:09 AM C Body Mass Index 42.6 10/20/2022 11:09 AM GRADUATE NURSE documented in this encounter Patient Instructions * Patient Instructions* Cathy Taylor PA - 10/20/2022 11:15 AM GRADUATE NURSE Research has proven that unless you are running a fever or symptoms start to improve then get worseagain, sinus infections are typically viral until days 9-10. Finish the entire antibiotic prescription. Take this with food. Eat yogurt or take probiotic daily while on antibiotics. Symptomatic treatments include: - Over the counter antihistamine such as loratadine (Claritin) or cetirizine (Zyrtec) to reduce secretions. The D formula includes pseudoephedrine and can be helpful as a decongestant but SHOULD NOT BE USED IF YOU HAVE A HISTORY OF HIGH BLOOD PRESSURE. - Coricidin HBP may be taken for congestion if you have a history of high blood pressure. - Topical decongestants are another option such as Afrin. Do not use for more than 3 days as it cancause rebound congestion worse than original congestion. - Robitussin for cough - Guafenesin (Mucinex) to thin secretions - Acetaminophen (Tylenol), ibuprofen (Motrin, Advil), or Aleve (naproxen) for pain or fever. - The use of hypertonic saline to irrigate nasal passageways can be helpful. Over the counter systems include Neti Pot and Nasopure. Use with distilled water. - Salt water gargles and throat lozenges can be helpful for sore throat. - To prevent spreading the illness to others cover your sneeze and cough into your arm and not yourhand, don't allow others to eat or drink with the same utensils or glass, and use hand armature balancer before touching people or common surfaces. - Apply warm packs to face to facilitate sinus drainage. - Use cool mist humidifier in bedroom at night. - Increase fluid consumption and rest. - Follow up with your primary care provider. - Go to the ER if you develop difficulty breathing, chest pain, or any other concerning symptoms. UATE NURSE documented in this encounter Ordered Prescriptions Prescription Sig Dispense Quantity Refills Last Filled Start Date End Date doxycycline (VIBRAMYCIN) 100 mg capsuleIndications: Acute maxillary sinusitis, recurrence not specified Take 1 tablet/caps ule (100 mg total) by mouth 2 (two) times a day for 7 days 14 tablet/capsule 10/20/2022 10/27/2022 documented in this encounter Progress Notes * Cathy Taylor PA - 10/20/2022 11:15 AM CST Images from the original note were not included. Subjective/Objective Patient ID: Rosa Babb is a 57 y.o. female. Chief Complaint COVID-19 EVALUATION (Fatigue, ear pain, pnd, nasal discharge, sinus pressure, sore throat, cough, sob, BA, JULIAN, loss of taste & smell. Sx onset 10/13) Patient is a 57 y/o female with history of HTN, HLD, DM II, malignant neoplasm of left breast, who presents for evaluation of fatigue, right ear pain, rhinorrhea, postnasal drip, congestion, sinus pressure, cough, body aches, headache, and loss of taste and smell x 8 days. She states that she has baseline dyspnea on exertion and has noticed it a little bit more . She denies a fever, chest pain,or any other symptoms. Review of Systems Constitutional: Positive for fatigue. Negative for chills and fever. HENT: Positive for congestion, ear pain, postnasal drip, rhinorrhea and sinus pressure. Eyes: Negative for discharge. Respiratory: Positive for cough and shortness of breath. Cardiovascular: Negative for chest pain. Gastrointestinal: Negative for diarrhea, nausea and vomiting. Musculoskeletal: Positive for myalgias. Neurological: Positive for headaches. Physical Exam Constitutional: General: She is not in acute distress. Appearance: Normal appearance. She is obese. She is not ill-appearing or toxic-appearing. HENT: Head: Normocephalic. Right Ear: Tympanic membrane, ear canal and external ear normal. Left Ear: Tympanic membrane, ear canal and external ear normal. Nose: Right Sinus: Maxillary sinus tenderness present. Mouth/Throat: Mouth: Mucous membranes are moist. Pharynx: Oropharynx is clear. Eyes: General: Lids are normal. Extraocular Movements: Extraocular movements intact. Conjunctiva/sclera: Conjunctivae normal. Pupils: Pupils are equal, round, and reactive to light. Cardiovascular: Rate and Rhythm: Normal rate and regular rhythm. Heart sounds: Normal heart sounds. Pulmonary: Effort: Pulmonary effort is normal. No respiratory distress. Breath sounds: Normal breath sounds and air entry. No stridor. No wheezing, rhonchi or rales. Musculoskeletal: General: Normal range of motion. Cervical back: Normal range of motion and neck supple. Skin: General: Skin is warm and dry. Neurological: General: No focal deficit present. Mental Status: She is alert and oriented to person, place, and time. Mental status is at baseline. Psychiatric: Mood and Affect: Mood normal. Behavior: Behavior normal. Vitals: 10/20/22 1109 BP: 144/78 Pulse: 94 Resp: 18 Temp: 37 ??C (98.6 ??F) SpO2: 96% Weight: 105.7 kg (233 lb) Height: 157.5 cm (5' 2.01 ) Assessment/Plan Research has proven that unless you are running a fever or symptoms start to improve then get worseagain, sinus infections are typically viral until days 9-10. Finish the entire antibiotic prescription. Take this with food. Eat yogurt or take probiotic daily while on antibiotics. Symptomatic treatments include: - Over the counter antihistamine such as loratadine (Claritin) or cetirizine (Zyrtec) to reduce secretions. The D formula includes pseudoephedrine and can be helpful as a decongestant but SHOULD NOT BE USED IF YOU HAVE A HISTORY OF HIGH BLOOD PRESSURE. - Coricidin HBP may be taken for congestion if you have a history of high blood pressure. - Topical decongestants are another option such as Afrin. Do not use for more than 3 days as it cancause rebound congestion worse than original congestion. - Robitussin for cough - Guafenesin (Mucinex) to thin secretions - Acetaminophen (Tylenol), ibuprofen (Motrin, Advil), or Aleve (naproxen) for pain or fever. - The use of hypertonic saline to irrigate nasal passageways can be helpful. Over the counter systems include Neti Pot and Nasopure. Use with distilled water. - Salt water gargles and throat lozenges can be helpful for sore throat. - To prevent spreading the illness to others cover your sneeze and cough into your arm and not yourhand, don't allow others to eat or drink with the same utensils or glass, and use hand armature balancer before touching people or common surfaces. - Apply warm packs to face to facilitate sinus drainage. - Use cool mist humidifier in bedroom at night. - Increase fluid consumption and rest. - Follow up with your primary care provider. - Go to the ER if you develop difficulty breathing, chest pain, or any other concerning symptoms. Diagnoses and all orders for this visit: Acute maxillary sinusitis, recurrence not specified (Primary) - doxycycline (VIBRAMYCIN) 100 mg capsule; Take 1 tablet/capsule (100 mg total) by mouth 2 (two) times a day for 7 days Sore throat - POC Influenza A/B, COVID-19 antigen Recent Results (from the past 4 hour(s)) POC Influenza A/B, COVID-19 antigen Collection Time: 10/20/22 11:56 AM Result Value Ref Range Inflenza A Ag, POC Negative Negative Influenza B Ag, POC Negative Negative COVID-19 Ag POC Presumptive Negative Presumptive Negative, Invalid Patient Education: Disposition Treatment [...] to ask questions, questions answered. VICKEY Paul PA UATE NURSE documented in this encounter Plan of Treatment Not on file documented as of this encounter Procedures Procedure Name Priority Date/Time Associated Diagnosis Comments POC INFLUENZA A/B, COVID-19 ANTIGEN Routine 10/20/2022 11:56 AM GRADUATE NURSE Sore throat documented in this encounter Results * POC Influenza A/B, COVID-19 antigen (10/20/2022 11:56 AM GRADUATE NURSE) Influenza A Ag, POC Negative Negative [facility] Influenza B Ag, POC Negative Negative [facility] COVID-19 Ag POC Presumptive Negative Presumptive Negative, Invalid [facility] Nasal 10/20/2022 11:5 6 AM GRADUATE NURSE Cathy HURD POINT OF CARE TEST ORDERABLES Final Result [facility] [address] [facility] [place] [address] [place] [address] documented in this encounter Visit Diagnoses Diagnosis Acute maxillary sinusitis, recurrence not specified- Primary Sore throat Acute pharyngitis documented in this encounter Historical Medications * This list may reflect changes made after this encounter. metFORMIN (GLUCOPHAGE) 500 mg tablet Take 500 mg by mouth daily 12/01/2020 cholecalciferol (VITAMIN D-3) 1,000 unit capsule Take by mouth daily blood glucose diagnostic strip Diagnosis: Diabetes type 2 Blood testing frequency: 3 times a day 12/01/2020 atorvastatin (LIPITOR) 20 mg tablet Take 1 tablet (20 mg total) by mouth daily 12/01/2020 anastrozole (ARIMIDEX) 1 mg tablet 10/09/2022 added in this encounter Additional Health Concerns Infection Onset Date Last Indicated Resolved Time COVID: Suspected 10/20/2022 10/20/2022 10/20/2022 11:57 AM GRADUATE NURSE documented as of this encounter Care Teams Hay Farmer Relationship Specialty Start Date End Date Rosa Shi MD PCP - General Family Medicine 10/20/22 documented as of this encounter
--- OUTSIDE RECORDS SUMMARY | 2024-10-23 02:10 | XMS_ITS | Encounter Summary ---
Author Organization [facility] Medical Group Address [address] [facility] [address] [facility] [address] [place] [address] Care Team Providers Care Clinique Counter Manager Name Role Phone Polina Rajput MD Primary Care Provider Encounter Details Date Type Department Care Team (Late st Contact Info) Description 03/16/2019 Orders Only [facility] of [address] [place] [address] Polina Rajput MD [address] [facility] [address] [place] [address] Acute gout, unspecified cause, unspecified site (Primary Dx) Social History Tobacco Use Types Packs/Day Years Used Date Smoking Tobacco: Never Smokeless Tobacco: Never Alcohol Use Standard Drinks/Week Comments No 0 (1 standard drink = 0.6 oz pur e alcohol) Comments No Sex and Gender Information Value Date Recorded Sex Assigned at Not on file 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
--- OUTSIDE RECORDS SUMMARY | 2024-10-23 02:10 | XMS_ITS | Encounter Summary ---
Author Organization [facility] Address [address] [place] [address] Care Team Providers Care Beverage Host Name Role Phone Emelia Yang NP Primary Care Provider [phone] Reason for Visit * Reason Onset Date Comments lab reminder 08/15/2019 Encounter Details Date Type Department Care Team (Late st Contact Info) Description 08/15/2019 Telephone [facility] [address] [place] [address] Emelia Yang NP [address] [facility] [address] [place] [address] lab reminder Social History Tobacco Use Types Packs/Day Years Used Date Smoking Tobacco: Never Smokeless Tobacco: Never Alcohol Use Standard Drinks/Week Comments No 0 (1 standard drink = 0.6 oz pur e alcohol) PHQ-2 Answer Date Recorded PHQ-2 Score 0 06/14/2019 Comments No Sex and Gender Information Value Date Recorded Sex Assigned at Not on file 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 Also notified she needs to schedule appt for December 2019. She will call back to schedule when she has her calender. * Telephone Encounter - Eloisa Edmond MA - 08/15/2019 1:09 PM CDT LMOMTCB to remind her to get labs done that were ordered 07/04/19. Unable to leave detailed message due to hippa. documented in this encounter Plan of Treatment Not on file documented as of this encounter Visit Diagnoses Not on filedocumented in this encounter Care Teams Beverage Host Relationship Specialty Start Date End Date Emelia Yang NP PCP - General Family Medicine 05/15/19 08/25/20 documented as of this encounter
--- OUTSIDE RECORDS SUMMARY | 2024-10-23 02:10 | XMS_ITS | Encounter Summary ---
Author Organization [facility] Address [address] [place] [address] Care Team Providers Care Domain Architect Name Role Phone Emelia Yang NP Primary Care Provider [phone] Reason for Visit * Reason Comments Transfer from Dr. Fish Encounter Details Date Type Department Care Team (Late st Contact Info) Description 07/04/2019 4:15 PM CDT Office Visit [facility] [address] [place] [address] Emelia Yang NP [address] [place] [address] Type 2 diabetes mellitus with complication, without long-term current use of insulin (CMS/HCC) (Primary Dx); Hypertension associated with diabetes (CMS/HCC); Hyperlipidemia due to type 2 diabetes mellitus (CMS/HCC) Social History Tobacco Use Types Packs/Day Years Used Date Smoking Tobacco: Never Smokeless Tobacco: Never Alcohol Use Standard Drinks/Week Comments No 0 (1 standard drink = 0.6 oz pur e alcohol) PHQ-2 Answer Date Recorded PHQ-2 Score 0 06/14/2019 Comments No Sex and Gender Information Value Date Recorded Sex Assigned at Not on file Legal Sex Female 8:35 AM EGG TRAYER Gender Identity Not on file Sexual Orientation Not on file documented as of this encounter Last Filed Vital Signs Vital Sign Reading Time Taken Comments Blood Pressure 132/76 07/04/2019 4:10 PM CDT Pulse 95 07/04/2019 4:09 PM CDT Temperature - - Respiratory Rate - - Oxygen Saturation 96% 07/04/2019 4:09 PM CDT Inhaled Oxygen Concentration - - Weight 106.2 kg (234 lb 1.6 oz) 07/04/2019 4:09 PM CDT Height 157.5 cm (5' 2 ) 07/04/2019 4:09 PM CDT Body Mass Index 42.82 07/04/2019 4:09 PM CDT documented in this encounter Ordered Prescriptions Prescription Sig Dispense Quantity Refills Last Filled Start Date End Date flash glucose scanning reader ([employer] ANDIE 14 DAY READER) misc 1 application every 2 (two) weeks 2 each 5 07/04/2019 documented in this encounter Progress Notes * Emelia Yang, SECURITIES BROKER - 07/04/2019 4:15 PM CDT Images from the original note were not included. Chief Complaint Patient presents with ??? Transfer from Dr. Polina Cortes She presents for her follow-up diabetic visit. She has type 2 diabetes mellitus. No MedicAlert identification noted. Her disease course has been worsening (last hga1c was 7.8%). There are no hypoglycemic associated symptoms. Pertinent negatives for hypoglycemia include no dizziness or headaches. Pertinent negatives for diabetes include no blurred vision, no chest pain, no fatigue, no visual change, no weakness and no weight loss. Symptoms are stable. Risk factors for coronary artery disease include dyslipidemia, diabetes mellitus, hypertension and post-menopausal. Current diabetic treatment includes oral agent (monotherapy). She is compliant with treatment most of the time. Her weight is stable. She is following a diabetic diet. She has not had a previous visit with a dietitian. Home blood sugar record trend: Patient does not check blood sugars. States she does not like sticking her finger and cannot do it. An ERIC inhibitor/angiotensin II receptor debra is being taken. She does not see a financial representative.Eye exam is current. Subjective Hx htn and hyperlipidemia: Had labs drawn last January and had normal cmp and lipid panel. Blood pressure currently controlled She is in menopause - she continues to have dryness. -she has lichen sclerosis and sees gynecology.She is going to get a biopsy next week. Current Outpatient Medications: ??? allopurinol (ZYLOPRIM) 100 mg tablet, Take 1 tablet (100 mg total) by mouth daily, Disp: 90 tablet, Rfl: 0 ??? amLODIPine (NORVASC) 5 mg tablet, TAKE 1 TABLET DAILY, Disp: 90 tablet, Rfl: 2 ??? cloNIDine (CATAPRES) 0.1 mg tablet, TAKE 1 TABLET BY MOUTH TWICE DAILY, Disp: 180 tablet, Rfl: 1 ??? cyanocobalamin (Vitamin B-12) 500 mcg tablet, Take 500 mcg by mouth daily., Disp: , Rfl: ??? fluticasone propion-salmeterol (ADVAIR DISKUS) 500-50 mcg/dose diskus inhaler, Inhale 1 puff 2 (two) times a day, Disp: 180 each, Rfl: 1 ??? glipiZIDE (GLUCOTROL) 5 mg tablet, TAKE 1 TABLET DAILY, Disp: 90 tablet, Rfl: 3 ??? indomethacin (INDOCIN) 25 mg capsule, Take 1 capsule (25 mg total) by mouth 3 (three) times a day as needed for pain (pain), Disp: 30 capsule, Rfl: 5 ??? lisinopril-hydroCHLOROthiazide (PRINZIDE,ZESTORETIC) 20-12.5 mg per tablet, TAKE 2 TABLETS ONCEDAILY, Disp: 180 tablet, Rfl: 3 ??? turmeric root extract 500 mg capsule, Take by mouth 2 (two) times a day., Disp: , Rfl: ??? flash glucose scanning reader ([employer] ANDIE 14 DAY READER) [facility], 1 application every 2 (two)weeks, Disp: 2 each, Rfl: 5 Patient Active Problem List Diagnosis ??? Depression ??? Type 2 diabetes mellitus (CMS/HCC) ??? Asthma ??? Hyperlipidemia due to type 2 diabetes mellitus (CMS/HCC) ??? Lichen ??? Atopic rhinitis ??? Persistent insomnia ??? Hypertension associated with diabetes (CMS/HCC) ??? Menopause syndrome ??? S/P YEHUDA (total abdominal hysterectomy) Social History Socioeconomic History ??? Marital status: Legally Spouse name: Not on file ??? Number of children: Not on file ??? Years of education: Not on file ??? Highest education level: Not on file Tobacco Use ??? Smoking status: Never Smoker ??? Smokeless tobacco: Never Used Substance and Sexual Activity ??? Alcohol use: No BP 132/76 (BP Location: Left arm, Patient Position: Sitting) Pulse 95 Ht 157.5 cm (5' 2 ) Wt 106.2 kg (234 lb 1.6 oz) SpO2 96% BMI 42.82 kg/m?? Review of Systems Constitutional: Negative for chills, fatigue, fever, malaise/fatigue and weight loss. HENT: Negative for ear discharge and ear pain. Eyes: Negative for blurred vision, double vision, pain and discharge. Respiratory: Negative for cough. Cardiovascular: Negative for chest pain, palpitations, claudication and leg swelling. Gastrointestinal: Negative for abdominal pain, heartburn, nausea and vomiting. Genitourinary: Negative for dysuria. Musculoskeletal: Negative for myalgias. Skin: Negative for rash. Neurological: Negative for dizziness, weakness and headaches. Objective Physical Exam Constitutional: She is oriented to person, place, and time. She appears well- developed and well-nourished. No distress. HENT: Head: Normocephalic. Right Ear: Tympanic membrane, external ear and ear canal normal. Left Ear: Tympanic membrane, external ear and ear canal normal. Mouth/Throat: Oropharynx is clear and moist. Eyes: Conjunctivae are normal. Neck: Neck supple. No tracheal deviation present. No thyromegaly present. Cardiovascular: Normal rate, regular rhythm and normal heart sounds. Exam reveals no friction rub. No murmur heard. Pulses: Dorsalis pedis pulses are 2+ on the right side, and 2+ on the left side. Posterior tibial pulses are 2+ on the right side, and 2+ on the left side. Pulmonary/Chest: Effort normal and breath sounds normal. No respiratory distress. She has no wheezes. She has no rales. Musculoskeletal: She exhibits no edema. Right foot: There is normal range of motion and no deformity. Left foot: There is normal range of motion and no deformity. Feet: Right Foot: Monofilament exam normal. Protective Sensation: 3 sites tested. 3 sites sensed. Skin Integrity: Negative for ulcer, skin breakdown or dry skin. Left Foot: Monofilament exam normal. Protective Sensation: 3 sites tested. 3 sites sensed. Skin Integrity: Negative for ulcer, skin breakdown or dry skin. Lymphadenopathy: She has no cervical adenopathy. Neurological: She is alert and oriented to person, place, and time. Skin: Skin is warm and dry. Diagnoses and all orders for this visit: Type 2 diabetes mellitus with complication, without long-term current use of insulin ([facility]) (Primary) Assessment & Plan: Diabetes is unchanged. Reminded to bring in blood sugar diary at next visit. Dietary recommendations for ADA diet. Discussed foot care. Diabetes will be reassessed in 6 months We discussed last hemoglobin A1c. Order given for repeat hemoglobin A1c. Discussed checking blood sugars. Patient is adamant that she cannot stick her finger on any kind of daily basis. She was interested and the [employer] lever 14 day reader and the sample reader was given with refills on the reader. Patient was still not sure about applying the reader ever 14 days.. She will check cost on the reader refills and considerate Orders: - Albumin Creatinine Ratio, Urine; Future - Hemoglobin A1c; Future Hypertension associated with diabetes ([facility]) Assessment & Plan: Hypertension is improving with treatment. Continue current medications. Blood pressure will be reassessed 6 months. Hyperlipidemia due to type 2 diabetes mellitus ([facility]) Assessment & Plan: Lipid abnormalities are improving with treatment. Pharmacotherapy as ordered. Lipids will be reassessed in 6 months. Orders: - Lipid panel; Future - Comprehensive metabolic panel; Future Other orders - flash glucose scanning reader ([employer] ANDIE 14 DAY READER) misc; 1 application every 2 (two) weeks Pt voiced understanding of plan of care and f/u Return in about 6 months (around 01/02/2020). Emelia Yang NP Cosigned by Frank Dumont MD at 07/06/2019 9:01 AM CDT documented in this encounter Miscellaneous Notes * Assessment & Plan Note - Emelia Yang NP - 07/06/2019 8:53 AM CDT Associated Problem(s): Hyperlipidemia due to type 2 diabetes mellitus ([facility]) Lipid abnormalities are improving with treatment. Pharmacotherapy as ordered. Lipids will be reassessed in 6 months. * Assessment & Plan Note - Emelia Yang NP - 07/06/2019 8:53 AM CDT Associated Problem(s): HTN (hypertension) Hypertension is improving with treatment. Continue current medications. Blood pressure will be reassessed 6 months. * Assessment & Plan Note - Emelia Yang NP - 07/06/2019 8:44 AM CDT Associated Problem(s): Type 2 diabetes mellitus, without long-term current use of insulin (HCC) Diabetes is unchanged. Reminded to bring in blood sugar diary at next visit. Dietary recommendations for ADA diet. Discussed foot care. Diabetes will be reassessed in 6 months We discussed last hemoglobin A1c. Order given for repeat hemoglobin A1c. Discussed checking blood sugars. Patient is adamant that she cannot stick her finger on any kind of daily basis. She was interested and the [employer] 14 day reader and the sample reader was given with refills on the reader. Patient was still not sure about applying the reader ever 14 days.. She will check cost on the reader refills and considerate documented in this encounter Plan of Treatment Not on file documented as of this encounter Visit Diagnoses Diagnosis Type 2 diabetes mellitus with complication, without long-term current use of insulin (HCC)- Primary Hypertension associated with diabetes (HCC) Unspecified essential hypertension Hyperlipidemia due to type 2 diabetes mellitus (HCC) documented in this encounter Care Teams Domain Architect Relationship Specialty Start Date End Date Emelia Yang NP PCP - General Family Medicine 05/15/19 08/25/20 documented as of this encounter
--- OUTSIDE RECORDS SUMMARY | 2024-10-23 02:10 | XMS_ITS | Encounter Summary ---
Author Organization [facility] Medical Group Address [address] [place] [address] Care Team Providers Care Therapeutic Recreation Leader Name Role Phone Emelia Yang NP Primary Care Provider [phone] Reason for Visit * Reason Comments Diabetes Hypertension Hyperlipidemia Encounter Details Date Type Department Care Team (Late st Contact Info) Description 11/23/2019 3:30 PM SURGICAL ONCOLOGIST Office Visit [facility] [address] [place] [address] Emelia Yang NP [address] [facility] [address] [place] [address] Type 2 diabetes mellitus without complication, without long-term current use of insulin (CMS/HCC) (Primary Dx); Hyperlipidemia due to type 2 diabetes mellitus (CMS/HCC); Hypertension associated with diabetes (CMS/HCC); Encounter for hepatitis C screening test for low risk patient; Moderate episode of recurrent major depressive disorder (CMS/HCC) Social History Tobacco Use Types Packs/Day Years Used Date Smoking Tobacco: Never Smokeless Tobacco: Never Alcohol Use Standard Drinks/Week Comments No 0 (1 standard drink = 0.6 oz pur e alcohol) PHQ-2 Answer Date Recorded PHQ-2 Score 1 11/23/2019 Comments No Sex and Gender Information Value Date Recorded Sex Assigned at Not on file Legal Sex Female 8:35 AM SURGICAL ONCOLOGIST Gender Identity Not on file Sexual Orientation Not on file documented as of this encounter Last Filed Vital Signs Vital Sign Reading Time Taken Comments Blood Pressure 175/81 11/23/2019 3:41 PM SURGICAL ONCOLOGIST Pulse 92 11/23/2019 3:40 PM SURGICAL ONCOLOGIST Temperature - - Respiratory Rate - - Oxygen Saturation 97% 11/23/2019 3:40 PM SURGICAL ONCOLOGIST Inhaled Oxygen Concentration - - Weight 106.5 kg (234 lb 11.2 oz) 11/23/2019 3:40 PM SURGICAL ONCOLOGIST Height 157.5 cm (5' 2 ) 11/23/2019 3:40 PM SURGICAL ONCOLOGIST Body Mass Index 42.93 11/23/2019 3:40 PM SURGICAL ONCOLOGIST documented in this encounter Ordered Prescriptions Prescription Sig Dispense Quantity Refills Last Filled Start Date End Date allopurinoL (ZYLOPRIM) 100 mg tablet Take 1 tablet (100 mg total) by mouth daily 90 tablet 1 11/23/2019 glipiZIDE (GLUCOTROL) 5 mg tablet Take 1 tablet (5 mg total) by mouth daily 90 tablet 3 11/23/2019 amLODIPine (NORVASC) 10 mg tablet Take 1 tablet (10 mg total) by mouth daily 90 tablet 1 11/23/2019 fluticasone propion-salmeterol (Advair Diskus) 500-50 mcg/dose diskus inhalerIndications :Maintenance Therapy for Asthma Inhale 1 puff 2 (two) times a day 180 each 3 11/23/2019 08/26/2020 documented in this encounter Progress Notes * Emelia Yang, PHYSIOTHERAPY PRACTICE MANAGER - 11/23/2019 3:30 PM CST Images from the original note were not included. Chief Complaint Patient presents with ??? Diabetes ??? Hypertension ??? Hyperlipidemia Diabetes She presents for her follow-up diabetic visit. She has type 2 diabetes mellitus. Her disease coursehas been stable. There are no hypoglycemic associated symptoms. Pertinent negatives for hypoglycemia include no dizziness or headaches. Associated symptoms include fatigue. Pertinent negatives for diabetes include no blurred vision, no chest pain, no polydipsia, no polyphagia, no polyuria, no weakness and no weight loss. Symptoms are worsening. Risk factors for coronary artery disease include hypertension. Current diabetic treatment includes oral agent (monotherapy). She is compliant with treatment some of the time. She is following a generally healthy diet. When asked about meal planning, she reported none. Home blood sugar record trend: refuses to check. An ERIC inhibitor/angiotensin II receptor debra is being taken. She does not see a stable manager.Eye exam is current. Hypertension This is a chronic problem. The problem has been waxing and waning since onset. The problem is uncontrolled. Associated symptoms include malaise/fatigue. Pertinent negatives include no blurred vision,chest pain, headaches or palpitations. There are no associated agents to hypertension. Risk factorsfor coronary artery disease include diabetes mellitus, dyslipidemia, obesity, post- menopausal stateand stress. Past treatments include ERIC inhibitors, diuretics, calcium channel blockers and centralalpha agonists. The current treatment provides mild improvement. Compliance problems include medication side effects and diet. Hyperlipidemia This is a chronic problem. The problem is controlled. Lipid results: due for labs. Exacerbating diseases include diabetes and obesity. Pertinent negatives include no chest pain or myalgias. Current antihyperlipidemic treatment includes diet change. Compliance problems include adherence to diet and medication side effects. Subjective Pt is quite upset today. She didn't have her labs drawn because there was a mixup with the order. She is upset because she is on so many medications and she doesn't feel like she is any better nor is her health improved. . She thinks that after all of these years and taking all of these medications she should feel less tired and be more healthy than she is. Pt is angry that she is tired all the time. States she is tired of taking medications all the time.States she takes all of her medications at night because they make her tired. She knows that the one medication makes her tired. She is suppose to take it twice a day, but she takes it two tablets atbedtime otherwise she cannot go to work on it. Pt states she is still upset about her mother dying two years ago from brain cancer that her doctors didn't know about and then she 3 months after the diagnoses. States she doesn't trust health care providers. Pt crying and upset when she is talking about her mother. Has 23 y/o son living with her, who she is proud of since he graduated from college. Current Outpatient Medications: ??? allopurinoL (ZYLOPRIM) 100 mg tablet, Take 1 tablet (100 mg total) by mouth daily, Disp: 90 tablet, Rfl: 1 ??? amLODIPine (NORVASC) 10 mg tablet, Take 1 tablet (10 mg total) by mouth daily, Disp: 90 tablet,Rfl: 1 ??? clobetasoL (TEMOVATE) 0.05 % cream, DIRECTED APPLY TWICE DAILY TO AFFECTED AREA(S) FOR 1 WEEK THEN 1 TIME DAILY FOR 1 WEEK THEN 2 TIMES WEEKLY, Disp: , Rfl: ??? cyanocobalamin (Vitamin B-12) 500 mcg tablet, Take 500 mcg by mouth daily., Disp: , Rfl: ??? flash glucose scanning reader (Chorus ANDIE 14 DAY READER) [facility], 1 application every 2 (two)weeks, Disp: 2 each, Rfl: 5 ??? fluticasone propion-salmeterol (Advair Diskus) 500-50 mcg/dose diskus inhaler, Inhale 1 puff 2 (two) times a day, Disp: 180 each, Rfl: 3 ??? glipiZIDE (GLUCOTROL) 5 mg tablet, Take 1 tablet (5 mg total) by mouth daily, Disp: 90 tablet, Rfl: 3 ??? lisinopril-hydroCHLOROthiazide (ZESTORETIC) 20-12.5 mg per tablet, Take 2 tablets by mouth daily, Disp: 180 tablet, Rfl: 1 ??? nystatin cream, APPLY DIRECTED A 50 50 MIX WITH TRIAMCINOLONE CREAM TOPICALLY TO AFFECTED AREA THREE TIMES DAILY, Disp: , Rfl: ??? turmeric root extract 500 mg capsule, Take by mouth 2 (two) times a day., Disp: , Rfl: Patient Active Problem List Diagnosis ??? Depression ??? Type 2 diabetes mellitus (CMS/HCC) ??? Asthma ??? Hyperlipidemia due to type 2 diabetes mellitus (CMS/HCC) ??? Atopic rhinitis ??? Persistent insomnia ??? [...] Sexual Activity ??? Alcohol use: No BP (!) 175/81 (BP Location: Right arm, Patient Position: Sitting) Pulse 92 Ht 157.5 cm (5' 2 ) Wt 106.5 kg (234 lb 11.2 oz) SpO2 97% BMI 42.93 kg/m?? Review of Systems Constitutional: Positive for fatigue and malaise/fatigue. Negative for chills, fever and weight loss. HENT: Negative for ear discharge and ear pain. Eyes: Negative for blurred vision, double vision, pain and discharge. Respiratory: Negative for cough. Cardiovascular: Negative for chest pain, palpitations, claudication and leg swelling. Gastrointestinal: Negative for abdominal pain, heartburn, nausea and vomiting. Genitourinary: Negative for dysuria. Musculoskeletal: Negative for myalgias. Skin: Negative for rash. Neurological: Negative for dizziness, weakness and headaches. Endo/Heme/Allergies: Negative for polydipsia and polyphagia. Psychiatric/Behavioral: Negative for depression (pt denies depression, but upset, angry and crying in office). Objective Physical Exam Constitutional: General: She is not in acute distress. Appearance: She is well-developed. Cardiovascular: Rate and Rhythm: Normal rate and regular rhythm. Heart sounds: No murmur. Pulmonary: Effort: Pulmonary effort is normal. No respiratory distress. Breath sounds: Normal breath sounds. No wheezing. Skin: General: Skin is warm and dry. Neurological: Mental Status: She is alert and oriented to person, place, and time. Psychiatric: Mood and Affect: Affect is angry and tearful (at times). Speech: Speech normal. Behavior: Behavior is agitated. Behavior is not aggressive. Diagnoses and all orders for this visit: Type 2 diabetes mellitus without complication, without long-term current use of insulin ([facility]) (Primary) Assessment & Plan: Uncontrolled. Due for repeat hga1c. We discussed in depth that she needs to work on diet, weight loss and exercise if she wants to feel healthier, take less medication, and feel less tired. Order given for labs. Continue glipizide. Consider further treatment , endocrinology referral pending lab results. Orders: - Hemoglobin A1c; Future - Albumin Creatinine Ratio, Urine; Future Hyperlipidemia due to type 2 diabetes mellitus (CMS/HCC) Assessment & Plan: Due for repeat lipid panel. Ordered today. Not currently on statin. F/u 6-7 weeks with lab results Orders: - Lipid panel; Future - Comprehensive metabolic panel; Future Hypertension associated with diabetes ([facility]) Assessment & Plan: Elevated in office today as patient is upset. She also takes all of her medication at bedtime. Clonidine makes her fatigued. Will discontinue clonidine. Increase amlodipine to 10mg daily. F/u 6-7 weeks Orders: - TSH reflex to free T4; Future Encounter for hepatitis C screening test for low risk patient - Hepatitis C antibody; Future Moderate episode of recurrent major depressive disorder (CMS/HCC) Assessment & Plan: History of depression. Currently listed on patient's [...] he recognizes any depression symptoms in her Other orders - amLODIPine (NORVASC) 10 mg tablet; Take 1 tablet (10 mg total) by mouth daily - glipiZIDE (GLUCOTROL) 5 mg tablet; Take 1 tablet (5 mg total) by mouth daily - fluticasone propion-salmeterol (Advair Diskus) 500-50 mcg/dose diskus inhaler; Inhale 1 puff 2 (two) times a day - allopurinoL (ZYLOPRIM) 100 mg tablet; Take 1 tablet (100 mg total) by mouth daily I spent a total of 45 minutes of which more than 50% of the time was spent face to face in counseling and coordination of care. This time included: discussion of health problems, health solutions, medications, medications changes. Depression, depression treatment and definition. Pt voiced understanding of plan of care and f/u Return in about 6 weeks (around 01/04/2020). Emelia Yang NP Cosigned by Irlanda Keating DO at 11/24/2019 9:45 PM SURGICAL ONCOLOGIST ICAL ONCOLOGIST ICAL ONCOLOGIST documented in this encounter Miscellaneous Notes * Assessment & Plan Note - Emelia Yang NP - 11/24/2019 8:04 PM SURGICAL ONCOLOGIST Associated Problem(s): Depression History of depression. Currently listed on patient's [...] he recognizes any depression symptoms in her ICAL ONCOLOGIST * Assessment & Plan Note - Emelia Yang NP - 11/24/2019 8:01 PM SURGICAL ONCOLOGIST Associated Problem(s): Hyperlipidemia due to type 2 diabetes mellitus (HCC) Due for repeat lipid panel. Ordered today. Not currently on statin. F/u 6-7 weeks with lab results ICAL ONCOLOGIST * Assessment & Plan Note - Emelia Yang NP - 11/24/2019 7:59 PM SURGICAL ONCOLOGIST Associated Problem(s): Type 2 diabetes mellitus, without long-term current use of insulin (HCC) Uncontrolled. Due for repeat hga1c. We discussed in depth that she needs to work on diet, weight loss and exercise if she wants to feel healthier, take less medication, and feel less tired. Order given for labs. Continue glipizide. Consider further treatment , endocrinology referral pending lab results. ICAL ONCOLOGIST * Assessment & Plan Note - Emelia Yang NP - 11/24/2019 7:56 PM SURGICAL ONCOLOGIST Associated Problem(s): HTN (hypertension) Elevated in office today as patient is upset. She also takes all of her medication at bedtime. Clonidine makes her fatigued. Will discontinue clonidine. Increase amlodipine to 10mg daily. F/u 6-7 weeks ICAL ONCOLOGIST documented in this encounter Plan of Treatment Not on file documented as of this encounter Visit Diagnoses Diagnosis Type 2 diabetes mellitus without complication, without long-term current use of insulin (CMS/HCC) (HCC)- Primary Hyperlipidemia due to type 2 diabetes mellitus (HCC) Hypertension associated with diabetes (HCC) Unspecified essential hypertension Encounter for hepatitis C screening test for low risk patient Moderate episode of recurrent major depressive disorder (HCC) documented in this encounter Discontinued Medications Medication Sig Discontinue Reason Start Date End Da te cloNIDine (CATAPRES) 0.1 mg tablet TAKE 1 TABLET BY MOUTH TWICE DAILY 05/15/2019 11/23/2019 amLODIPine (NORVASC) 5 mg tablet Take 1 tablet (5 mg total) by mouth daily Reorder 10/04/2019 11/23/2019 glipiZIDE (GLUCOTROL) 5 mg tablet TAKE 1 TABLET DAILY Reorder 02/20/2019 11/23/2019 fluticasone propion-salmeterol (ADVAIR DISKUS) 500-50 mcg/dose diskus inhalerIndications:Ma intenance Therapy for Asthma Inhale 1 puff 2 (two) times a day Reorder 09/20/2019 11/23/2019 indomethacin (INDOCIN) 25 mg capsule Take 1 capsule (25 mg total) by mouth 3 (three) times a day as needed for pain (pain) 02/14/2019 11/23/2019 terconazole (TERAZOL 7) 0.4 % vaginal cream INSERT 1 APPLICATORFUL VAGINALLY NIGHTLY FOR 7 NIGHTS DIRECTED AND TWICE DAILY TO PERINEUM. 11/17/2019 11/23/2019 allopurinol (ZYLOPRIM) 100 mg tablet Take 1 tablet (100 mg total) by mouth daily Reorder 03/29/2019 11/23/2019 documented as of this encounter Historical Medications * This list may reflect changes made after this encounter. clobetasoL (TEMOVATE) 0.05 % cream DIRECTED APPLY TWICE DAILY TO AFFECTED AREA(S) FOR 1 WEEK THEN 1 TIME DAILY FOR 1 WEEK THEN 2 TIMES WEEKLY 11/13/2019 nystatin cream APPLY DIRECTED A 50 50 MIX WITH TRIAMCINOLONE CREAM TOPICALLY TO AFFECTED AREA THREE TIMES DAILY 11/17/2019 terconazole (TERAZOL 7) 0.4 % vaginal cream INSERT 1 APPLICATORFUL VAGINALLY NIGHTLY FOR 7 NIGHTS DIRECTED AND TWICE DAILY TO PERINEUM. 11/17/2019 0 added in this encounter Care Teams Therapeutic Recreation Leader Relationship Specialty Start Date End Date Emelia Yang NP PCP - General Family Medicine 05/15/19 08/25/20 documented as of this encounter
--- OUTSIDE RECORDS SUMMARY | 2024-10-23 02:10 | XMS_ITS | Encounter Summary ---
Author Organization [facility] Healthcare Address [address] [place] [address] Care Team Providers Care Community Representative Name Role Phone Polina Rajput MD Primary Care Provider Encounter Details Date Type Department Care Team (Late st Contact Info) Description 02/13/2019 11:55 AM CDT Lab [facility] [address] [place], [place] Polina Rajput MD [address] [facility] [address] [place] [address] Acute gout of right hand, unspecified cause; Type 2 diabetes mellitus with hyperglycemia, unspecified whether terminal clerk insulin use ([facility]) Discharge Disposition: Discharge to home or self care Social History Tobacco Use Types Packs/Day Years Used Date Smoking Tobacco: Never Smokeless Tobacco: Never Alcohol Use Standard Drinks/Week Comments No 0 (1 standard drink = 0.6 oz pur e alcohol) Comments No Sex and Gender Information Value Date Recorded Sex Assigned at Not on file Legal Sex Female 8:35 AM BLADDER CLEANER Gender Identity Not on file Sexual Orientation Not on file documented as of this encounter Discharge Disposition Disposition Code Departure Means Destination Discharge to home or self care documented in this encounter Progress Notes * Polina Rajput MD - 02/13/2019 11:55 AM CDT Ok to let patient know that uric acid level is elevated consistent with gout. Please stay on the new medication prescribed by me and keep follow up appointment. Thanks. documented in this encounter Plan of Treatment Not on file documented as of this encounter Procedures Procedure Name Priority Date/Time Associated Diagnosis Comments EGFR Routine 02/13/2019 11:52 AM CDT Type 2 diabetes mellitus with hyperglycemia, unspecified whether terminal clerk insulin use ([facility]) URIC ACID Routine 02/13/2019 11:52 AM CDT Acute gout of right hand, unspecified cause HEMOGLOBIN A1C Routine 02/13/2019 11:52 AM CDT Type 2 diabetes mellitus with hyperglycemia, unspecified whether terminal clerk insulin use ([facility]) COMPREHENSIVE METABOLIC PANEL Routine 02/13/2019 11:52 AM CDT Type 2 diabetes mellitus with hyperglycemia, unspecified whether longterm insulin use ([facility]) documented in this encounter Results * eGFR (02/13/2019 11:52 AM CDT) eGFR 100 mL/min/1.7 3 m2 [facility] ([place]) Comment: Interpretive Data Reference Interval Normal ?>/= 90 mL/min/1.73m2 Mildly decreased* ? 60 - 89 mL/min/1.73m2 Mildly to moderately decreased ?45 - 59 mL/min/1.73m2 Moderately to severely decreased ??30 - 44 mL/min/1.73m2 Severely decreased ?15 - 29 mL/min/1.73m2 Kidney Failure ?< 15 ??mL/min/1.73m2 *Relative to young adult level If -[place] multiply value by 1.16. Estimated glomerular filtration [...] CDT 02/13/2019 2:22 PM CDT Narrative [facility] ([place]) - 02/13/2019 2:40 PM CDT us Polina Rajput MD LAB BLOOD ORDERABLES F inal Result [facility] ([place]) [address] [facility] Department [place] [address] * Comprehensive metabolic panel (02/13/2019 11:52 AM CDT) Sodium 142 135 - 145 mmol/L [facility] ([place]) Potassium, pl 4.2 3.3 - 4.9 mmol/L [facility] ([place]) Chloride 105 97 - 110 mmol/L [facility] ([place]) CO2 27 22 - 32 mmol/L [facility] ([place]) Anion gap 10 2 - 15 mmol/L [facility] ([place]) BUN 11 8 - 25 mg/dL [facility] ([place]) Creatinine 0.65 0.60 - 1.10 mg/dL [facility] ([place]) Glucose 93 70 - 199 mg/dL [facility] ([place]) Comment: Interpretive Data Fasting glucose >/= 126 mg/dl is diagnostic for diabetes. ?? Fasting is defined as no caloric intake for at least 8 hours. Fasting glucose between 100 mg/dl to 125 mg/dl is diagnostic of prediabetes. In a patient with classic symptoms of hyperglycemia or hyperglycemic crisis, a random glucose >/= 200 mg/dl is diagnostic for diabetes. In the absence of unequivocal hyperglycemia, results should be confirmed by repeat testing. The classification and Diagnosis of Diabetes Diabetes Care 2017;40 (Suppl. 1):S11. Current interpretive data was last revised 2017. Calcium 9.2 8.5 - 10.3 mg/dL [facility] ([place]) Bilirubin, total 0.2 0.1 - 1.2 mg/dL [facility] ([place]) Protein, pl 7.7 6.5 - 8.5 g/dL [facility] ([place]) Albumin 3.9 3.5 - 5.0 g/dL [facility] ([place]) Alk phos 83 40 - 130 Units/L [facility] ([place]) ALT 18 7 - 45 Units/L [facility] ([place]) AST 21 10 - 45 Units/L [facility] ([place]) Blood specimen (specimen) 02/13/2019 11:52 AM CDT 02/13/2019 2:22 PM CDT [facility]ative [facility] ([place] - 02/13/2019 2:40 PM CDT Polina Rajput MD LAB BLOOD ORDERABLES F inal Result [facility] ([place]) [address] [facility] Department [place] [address] * (ABNORMAL) Hemoglobin A1c (02/13/2019 11:52 AM CDT) Hgb A1C 7.6(H) 4.0 - 5.6 % [facility] ([place]) Estimated Average Glucose 171 mg/dL [facility] ([place]) Comment: The ADA recommends reporting an estimated Average Glucose (eAG) with all Hemoglobin A1c results using the equation derived from a study of 507 normal and diabetic adults. ??Minority populations were underrepresented and children were not included. ?? (Diabetes Care 31:0745-1835, 2008). ??The eAG is not equivalent to a fasting glucose. Blood specimen (specimen) 02/13/2019 11:52 AM CDT 02/13/2019 2:22 PM CDT Narrative [facility] ([place]) - 02/13/2019 2:48 PM CDT Polina Rajput MD LAB BLOOD ORDERABLES F inal Result Performing Organization Address City/[facility]/ZIP Co de Phone Number [facility] ([place]) [address] [facility] [place] [address] * (ABNORMAL) Uric acid (02/13/2019 11:52 AM CDT) Uric acid 7.5(H) 2.5 - 7.0 mg/dL [facility] ([place]) Blood specimen (specimen) 02/13/2019 11:52 AM CDT 02/13/2019 2:22 PM CDT Narrative [facility] ([place]) - 02/13/2019 2:40 PM CDT Polina Rajput MD LAB BLOOD ORDERABLES F inal Result Performing Organization Address [facility] Co de Phone Number [facility] ([place]) [address] [facility] [place] [address] documented in this encounter Visit Diagnoses Diagnosis Acute gout of right hand, unspecified cause Type 2 diabetes mellitus with hyperglycemia, unspecified whether terminal clerk insulin use (HCC) documented in this encounter Care Teams Community Representative Relationship Specialty Start Date End Date Polina Rajput MD PCP - General 01/22/17 05/14/19 documented as of this encounter
--- OUTSIDE RECORDS SUMMARY | 2024-10-23 02:10 | XMS_ITS | Encounter Summary ---
Author Organization [facility] Healthcare Address [address] [place] [address] Care Team Providers Care Acoustic Warfare Analyst Name Role Phone Polina Rajput MD Primary Care Provider Encounter Details Date Type Department Care Team (Late st Contact Info) Description 03/02/2019 3:20 PM CDT Lab [address] Polina Rajput MD [address] [facility] [address] [place] [address] Social History Tobacco Use Types Packs/Day Years Used Date Smoking Tobacco: Never Smokeless Tobacco: Never Alcohol Use Standard Drinks/Week Comments No 0 (1 standard drink = 0.6 oz pur e alcohol) Comments No Sex and Gender Information Value Date Recorded Sex Assigned at Not on file Legal Sex Female 8:35 AM PSYCHOLOGY PROFESSOR Gender Identity Not on file Sexual Orientation Not on file documented as of this encounter Plan of Treatment Not on file documented as of this encounter Visit Diagnoses Not on filedocumented in this encounter Care Teams Acoustic Warfare Analyst Relationship Specialty Start Date End Date Polina Rajput MD PCP - General 01/22/17 05/14/19 documented as of this encounter
--- OUTSIDE RECORDS SUMMARY | 2024-10-23 02:10 | XMS_ITS | Encounter Summary ---
Author Organization [facility] Care Team Providers Care Non Ferrous Material Handler Name Role Phone Emelia Yang NP Primary Care Provider [phone] Encounter Details Date Type Department Care Team (Latest Contact Info) Description 12/06/2019 Travel Social History Tobacco Use Types Packs/Day Years Used Date Smoking Tobacco: Never Smokeless Tobacco: Never Alcohol Use Standard Drinks/Week Comments No 0 (1 standard drink = 0.6 oz pur e alcohol) PHQ-2 Answer Date Recorded PHQ-2 Score 1 11/23/2019 Comments No Sex and Gender Information Value Date Recorded Sex Assigned at Not on file Legal Sex Female 8:35 AM CATEGORY MANAGER Gender Identity Not on file Sexual Orientation Not on file documented as of this encounter Plan of Treatment Not on file documented as of this encounter Visit Diagnoses Not on filedocumented in this encounter Care Teams Non Ferrous Material Handler Relationship Specialty Start Date End Date Emelia Yang NP PCP - General Family Medicine 05/15/19 08/25/20 documented as of this encounter
--- OUTSIDE RECORDS SUMMARY | 2024-10-23 02:10 | XMS_ITS | Encounter Summary ---
Author Organization [facility] Medical Group Address [address] [place] [address] Care Team Providers Care Commissary Representative Name Role Phone Polina Rajput MD Primary Care Provider Encounter Details Date Type Department Care Team (Late st Contact Info) Description 01/02/2019 Telephone [facility] of [address] [place] [address] Polina Rajput MD [address] [address] Social History Tobacco Use Types Packs/Day Years Used Date Smoking Tobacco: Never Smokeless Tobacco: Never Alcohol Use Standard Drinks/Week Comments No 0 (1 standard drink = 0.6 oz pur e alcohol) Comments No Sex and Gender Information Value Date Recorded Sex Assigned at Not on file 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 Please follow up if sxschange or worsen. Thanks. * Telephone Encounter - Nickie Montalvo MA - 01/02/2019 2:34 PM CDT Pt calling stating she has a yeast infection from taking antibiotics a few weeks ago, She is wanting to know if you will send in something for this? documented in this encounter Plan of Treatment Not on file documented as of this encounter Visit Diagnoses Not on filedocumented in this encounter Care Teams Commissary Representative Relationship Specialty Start Date End Date Polina Rajput MD PCP - General 01/22/17 05/14/19 documented as of this encounter
--- OUTSIDE RECORDS SUMMARY | 2024-10-23 02:10 | XMS_ITS | Encounter Summary ---
Author Organization [facility] Address [address] [place] [address] Care Team Providers Care Rehab Care Assistant Name Role Phone Emelia Yang NP Primary Care Provider [phone] Reason for Referral * Diagnostic Imaging (Routine) - Closed Specialty Diagnoses / Procedures Referred By Vi jackson Referred To Contact Diagnoses Arthralgia of hand, unspecified laterality Localized swelling, mass, or lump of upper extremity, unspecified laterality Procedures XR Hand Right 2 Views Kevin Velásquez MD Phone: tel: fax: [address] [phone] Referral ID Status Reason Start Date Expiration Date Visits Re quested Visits Authorized [id number] Closed 09/18/2020 10/18/2021 1 1 ATTENDANT Reason for Visit * Diagnostic Imaging (Routine) - Closed Specialty Diagnoses / Procedures Referred By Vi t Referred To Contact Diagnoses Arthralgia of hand, unspecified laterality Localized swelling, mass, or lump of upper extremity, unspecified laterality Procedures XR Hand Right 2 Views eKvin Velásquez MD Phone: tel: fax: [address] [phone] Referral ID Status Reason Start Date Expiration Date Visits Re quested Visits Authorized [id number] Closed 09/18/2020 10/18/2021 1 1 Encounter Details Date Type Department Care Team (Late st Contact Info) Description 09/18/2020 9:30 AM AREA ATTENDANT - 09/18/2020 11:59 PM AREA ATTENDANT Hospital Encounter [facility] [address] [place] [address] Kevin Velásquez MD [address] [place] [address] Arthralgia of hand, unspecified laterality; Localized swelling, mass, or lump of upper extremity, unspecified laterality Discharge Disposition: Discharge to home or self [...] on file 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 Female 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 Gender Identity Not on file Sexual Orientation Not on file documented as of this encounter Medications at Time of Discharge Advair Diskus 500-50 mcg/dose diskus inhaler USE 1 INHALATION TWICE A DAY 180 each 3 08/26/2020 allopurinoL (ZYLOPRIM) 100 mg tablet Take 1 tablet (100 mg total) by mouth daily 90 tablet 1 11/23/2019 amLODIPine (NORVASC) 10 mg tablet Take 1 tablet (10 mg total) by mouth daily 90 tablet 1 11/23/2019 clobetasoL (TEMOVATE) 0.05 % cream DIRECTED APPLY [...] by mouth daily flash glucose scanning reader (Ancanco ANDIE 14 DAY READER) misc 1 application every 2 (two) weeks 2 each 5 07/04/2019 glipiZIDE (GLUCOTROL) 5 mg tablet Take 1 tablet (5 mg total) by mouth daily 90 tablet 3 11/23/2019 lisinopril-hydro CHLOROthiazide (ZESTORETIC) 20-12.5 mg per tablet Take 2 tablets by mouth daily 180 tablet 1 09/27/2019 nystatin cream APPLY DIRECTED A 50 50 MIX WITH TRIAMCINOLONE CREAM TOPICALLY TO AFFECTED AREA THREE TIMES DAILY 11/17/2019 turmeric root extract 500 mg capsule Take by mouth 2 (two) times a day. indomethacin (INDOCIN) 25 mg capsule Indomethacin 25 [...] Name Priority Date/Time Associated Diagnosis Comments XR HAND RIGHT 2 VIEWS Schedule Routine, Read Routine (OP Routine) 09/18/2020 9:40 AM AREA ATTENDANT Arthralgia of hand, unspecified laterality Localized swelling, mass, or lump of upper extremity, unspecified laterality documented in this encounter Results * XR Hand Right 2 Views (09/18/2020 9:40 AM AREA ATTENDANT) Anatomical Region Laterality Modality Upper Extremities, Hand Right Computed Radiography 09/18/2020 1:2 7 PM AREA ATTENDANT Impressions 09/18/2020 1:29 PM AREA ATTENDANT 1. 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 2. ??No discrete osseous erosion. 3. ??Posterior soft tissue swelling over the 3rd distal interphalangeal joint. Electronically signed by: Rudy Stanton M.D. Narrative 09/18/2020 1:29 PM AREA ATTENDANT EXAMINATION: XR HAND RIGHT 2 VIEWS ORDERING HEALTHCARE PROVIDER: KEVIN VELÁSQUEZ HISTORY: PAIN IN JOINTS OF UNSPECIFIED HAND, LOCALIZED SWELL, MASS & LUMP. Checking for gout. Chronic Pain when touched over a year ??. Blister on the 3rd digit No prior injuries or surgeries ?? TECHNIQUE: Right hand 2 views COMPARISON: None FINDINGS: There is no acute fracture or dislocation. ??There is osteoarthritis in the hand, including severe osteoarthritis of the 3rd distal interphalangeal joint with osteophyte formation and joint space narrowing. ??Posterior osteophyte from the 3rd metacarpal base may partially attributable abnormality. ??There is overlying soft tissue swelling. ??There is no osseous erosion. ??There is no radiopaque foreign body. Procedure Note Rudy Stanton MD - 09/18/2020 EXAMINATION: XR HAND RIGHT 2 VIEWS ORDERING HEALTHCARE PROVIDER: KEVIN VELÁSQUEZ HISTORY: PAIN IN JOINTS OF UNSPECIFIED HAND, LOCALIZED SWELL, MASS & LUMP. Checking for gout. Chronic Pain when touched over a year . Blister on the 3rd digit No prior injuries or surgeries TECHNIQUE: Right hand 2 views COMPARISON: None FINDINGS: There is no acute fracture or dislocation. There is osteoarthritis in the hand, including severe osteoarthritis of the 3rd distal interphalangeal joint with osteophyte formation and joint space narrowing. Posterior osteophyte from the 3rd metacarpal base may partially attributable abnormality. There is overlying soft tissue swelling. There is no osseous erosion. There is no radiopaque foreign body. IMPRESSION: 1. 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 2. No discrete osseous erosion. 3. Posterior soft tissue swelling over the 3rd distal interphalangeal joint. Electronically signed by: Rudy Stanton M.D. us Kevin Velásquez MD IMG XR PROCEDURES Final Result documented in this encounter Visit Diagnoses Diagnosis Arthralgia of hand, unspecified laterality Localized swelling, mass, or lump of upper extremity, unspecified laterality documented in this encounter Care Teams Rehab Care Assistant Relationship Specialty Start Date End Date Emelia Yang NP PCP - General 09/18/20 10/19/22 documented as of this encounter
--- OUTSIDE RECORDS SUMMARY | 2024-10-23 02:11 | XMS_ITS | Encounter Summary ---
Author Organization [facility] Healthcare Address [address] [place] [address] Care Team Providers Care Stopper Maker Name Role Phone Polina Rajput MD Primary Care Provider Encounter Details Date Type Department Care Team (Late st Contact Info) Description 11/09/2011 8:55 AM CLUTCH SPECIALIST - 11/09/2011 11:59 PM CLUTCH SPECIALIST Hospital Encounter [facility] Polina Rajput MD [address] [facility] [address] [place] [address] Osteoarthrosis; Other malaise and fatigue; Palindromic rheumatism, shoulder region; Localized osteoarthrosis, shoulder region; Effusion of lower leg joint Social History Tobacco Use Types Packs/Day Years Used Date Smoking Tobacco: Never Assessed Comments Unknown Sex and Gender Information Value Date Recorded Sex Assigned at Not on file 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 Gender Identity Not on file Sexual Orientation Not on file documented as of this encounter Medications at Time of Discharge aspirin 81 mg tablet take 1 tablet (81MG) by ORAL route every day 0 01/15/2010 03/29/2019 fluticasone-salme terol (ADVAIR DISKUS) 500-50 mcg/dose diskus inhaler INHALE ONE DOSE BY MOUTH TWICE DAILY 3 3 06/14/2007 08/01/2018 lisinopril-hydroC HLOROthiazide (PRINZIDE,ZESTORE TIC) 20-12.5 mg per tablet Take two by mouth one time per day 180 3 09/13/2007 10/01/2017 documented as of this encounter Plan of Treatment Not on file documented as of this encounter Visit Diagnoses Diagnosis Osteoarthrosis Osteoarthrosis, unspecified whether generalized or localized, unspecified site Other malaise and fatigue Palindromic rheumatism, shoulder region Localized osteoarthrosis, shoulder region Localized osteoarthrosis not specified whether primary or secondary, shoulder region Effusion of lower leg joint documented in this encounter Care Teams Stopper Maker Relationship Specialty Start Date End Date Polina Rajput MD PCP - General 04/16/10 01/21/17 documented as of this encounter
--- OUTSIDE RECORDS SUMMARY | 2024-10-23 02:11 | XMS_ITS | Encounter Summary ---
Author Organization [facility] Medical Group Address [address] [place] [address] Care Team Providers Care Senior Manager Creative Services Name Role Phone Polina Rajput MD Primary Care Provider Encounter Details Date Type Department Care Team (Late st Contact Info) Description 03/18/2017 Orders Only [facility] of [address] [place] [address] Polina Rajput MD [address] [facility] [address] [place] [address] Social History Tobacco Use Types Packs/Day Years Used Date Smoking Tobacco: Never Alcohol Use Standard Drinks/Week Comments No 0 (1 standard drink = 0.6 oz pur e alcohol) Comments Unknown Sex and Gender Information Value Date Recorded Sex Assigned at Not on file 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 Gender Identity Not on file Sexual Orientation Not on file documented as of this encounter Plan of Treatment Not on file documented as of this encounter Procedures Procedure Name Priority Date/Time Associated Diagnosis Comments TSH Routine 03/18/2017 8:33 AM CDT documented in this encounter Results * TSH (03/18/2017 8:33 AM CDT) Thyroid Stimulating Hormone 1.88 0.34 - 5.60 mcIUnit/mL [facility] Blood specimen (specimen) 03/18/2017 8:33 AM CDT 03/18/2017 8:33 AM CDT Polina Rajput MD LAB BLOOD ORDERABLES E dited Result - Final JE[facility] [id number] Department [place] [address] documented in this encounter Visit Diagnoses Not on filedocumented in this encounter Care Teams Senior Manager Creative Services Relationship Specialty Start Date End Date Polina Rajput MD PCP - General 01/22/17 05/14/19 documented as of this encounter
--- OUTSIDE RECORDS SUMMARY | 2024-10-23 02:11 | XMS_ITS | Encounter Summary ---
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 (CMS/HCC) Discharge Disposition: Discharge to home or self care Social History Tobacco Use Types Packs/Day Years Used Date Smoking Tobacco: Never Alcohol Use Standard Drinks/Week Comments No 0 (1 standard drink = 0.6 oz pur e alcohol) Comments Unknown Sex and Gender Information Value Date Recorded Sex Assigned at Not on file Legal Sex Female 8:[address] ATTENDANT Gender Identity Not on file Sexual Orientation Not on file documented as of this encounter Discharge Disposition Disposition Code Departure Means Destination Discharge to home or self care documented in this encounter Plan of Treatment Not on file documented as of this encounter Procedures Procedure Name Priority Date/Time Associated Diagnosis Comments EGFR Routine 10/05/2017 3:[address] ATTENDANT Type 2 diabetes mellitus without complication, unspecified 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 insulin use 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 (CMS/HCC) HEMOGLOBIN A1C Routine 10/05/2017 3:[address] ATTENDANT Type 2 diabetes mellitus without complication, unspecified 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 eGFR 73 mL/min/1.7 3 m2 [facility] LOVELL Comment: Interpretive Data Reference Interval Normal ?>/= 90 mL/min/1.73m2 Mildly decreased* ? 60 - 89 mL/min/1.73m2 Mildly to moderately decreased ?45 - 59 mL/min/1.73m2 Moderately to severely decreased ??30 - 44 mL/min/1.73m2 Severely decreased ?15 - 29 mL/min/1.73m2 Kidney Failure ?< 15 ??mL/min/1.73m2 *Relative to young adult level If -Kazakh multiply value by 1.16. Estimated glomerular filtration [...] was last reviewed 2016. Blood specimen (specimen) 10/05/2017 3:[address] ATTENDANT 10/05/2017 7:[address] ATTENDANT Narrative JEFE - 10/05/2017 8:[address] ATTENDANT Polina Rajput MD LAB BLOOD ORDERABLES F inal Result [facility] [address] [facility] Department [place] [address] * Lipid panel (10/05/2017 3:[address] ATTENDANT) Cholesterol 188 100 - 200 mg/dL [facility] Comment: Interpretive Data Desirable: ?<200 mg/dL Borderline high: ??200-239 mg/dL High: ? >240 mg/dL Current interpretive data was last revised on 2016. Triglycerides 136 10 - 150 mg/dL [facility] Comment: Interpretive Data Desirable: ? < 150 ? mg/dL Borderline High: ? 150 - 199 mg/dL High: ?200 - 499 mg/dL Very High: ? > or = 499 ??mg/dL Current interpretive data was last revised on 2016. HDL 52 40 - 59 mg/dL JEFE Comment: Interpretive Data Less than 40 mg/dL - Low; A major risk factor for heart disease. Greater than or equal to 60 mg/dL - High; ??Considered protective of heart disease. Current interpretive data was last revised on 2016. LDL, calculated 109 60 - 129 mg/dL [facility] Comment: Interpretive Data Optimal: ? < 100 mg/dL Near Optimal: ?100 - 129 mg/dL Borderline High: ?? 130 - 159 mg/dL High: ?> 160 mg/dL Current interpretive data was last revised on 2016. Non-HDL Cholesterol 136 mg/dL [facility] Comment: Interpretive Data When triglycerides are >200 mg/dL, non-HDL C is a secondary target of therapy, with a goal 30 mg/dL higher than the identified LDL-C goal. Current interpretive data was last revised 2016. Blood specimen (specimen) 10/05/2017 3:[address] ATTENDANT 10/05/2017 7:[address] ATTENDANT Narrative [facility]ERNER [facility] - 10/05/2017 8:[address] ATTENDANT Polina Rajput MD LAB BLOOD ORDERABLES F inal Result [facility] [address] [place] [address] * Comprehensive metabolic panel (10/05/2017 3:[address] ATTENDANT) Sodium 141 135 - 145 mmol/L [facility] Potassium, pl 3.8 3.5 - 5.1 mmol/L [facility] CO2 30 22 - 32 mmol/L [facility] BUN 10 8 - 24 mg/dL [facility] Glucose 149 70 - 199 mg/dL [facility] Comment: Interpretive Data Fasting glucose >/= 126 [...] Current interpretive data was last revised 2017. Creatinine 0.89 0.60 - 1.30 mg/dL [facility] Calcium 9.1 8.4 - 10.5 mg/dL [facility] Chloride 104 100 - 114 mmol/L [facility] Albumin 3.8 3.2 - 4.8 g/dL [facility] AST 17 7 - 40 Units/L [facility] ALT 16 1 - 45 Units/L [facility] Alk phos 76 30 - 110 Units/L [facility] Bilirubin, total 0.10 0.10 - 1.30 mg/dL [facility] Protein, pl 7.3 6.0 - 8.3 g/dL [facility] Anion gap 11 8 - 16 mmol/L [facility] Blood specimen (specimen) 10/05/2017 3:[address] ATTENDANT 10/05/2017 7:[address] ATTENDANT Narrative JEFE - 10/05/2017 8:[address] ATTENDANT Polina Rajput MD LAB BLOOD ORDERABLES F inal Result Performing Organization Address City/[facility]/ZIP Co de Phone Number JE[facility] NAS [address] Department [place] [address] * (ABNORMAL) Hemoglobin A1c (10/05/2017 3:[address] ATTENDANT) Hgb A1C 7.6(H) 4.0 - 6.0 % JE[facility] Comment: Interpretive Data Hemoglobin A1c ADA Interpretive Guidelines ??<7% ?? Glycemia controlled ??>8% ?? Hyperglycemia, additional action recommended Shree Immunochemical Method Current interpretive data was last revised on 2016 Testing performed by: [facility], [place] [address] Estimated Average Glucose 171 mg/dL JE[facility] Comment:Testing performed by : [facility], [address], [place] [address] Blood specimen (specimen) 10/05/2017 3:[address] ATTENDANT 10/06/2017 7:[address] ATTENDANT Narrative JEFE - 10/06/2017 8:[address] ATTENDANT Polina Rajput MD LAB BLOOD ORDERABLES F inal Result Performing Organization Address [facility] Co de Phone Number JEFE [address] Department [place] [address] * DISCHARGE LABORATORY CUMULATIVE REPORT (10/05/2017 12:[address] ATTENDANT) Narrative 10/05/2017 12:[address] ATTENDANT Ordered by an unspecified provider. [facility] Provider LAB BLOOD ORDERABLES Dede l Result documented in this encounter Visit Diagnoses Diagnosis Type 2 diabetes mellitus without complication, unspecified skilled nursing insulin use status documented in this encounter Care Teams Change Management Facilitator Relationship Specialty Start Date End Date Polina Rajput MD PCP - General 01/22/17 05/14/19 documented as of this encounter
--- OUTSIDE RECORDS SUMMARY | 2024-10-23 02:11 | XMS_ITS | Encounter Summary ---
Author Organization [facility] Healthcare Address [address] [place] [address] Care Team Providers Care Grinder Set Up Operator External Name Role Phone Polina Rajput MD Primary Care Provider Encounter Details Date Type Department Care Team (Late st Contact Info) Description 08/18/2018 11:55 AM CDT [facility] [address] [place], [place] Polina Rajput MD [address] [facility] [address] [place] [address] Type 2 diabetes mellitus with hyperglycemia, without long-term current use of insulin (CMS/[facility]) Discharge Disposition: Discharge to home or self care Social History Tobacco Use Types Packs/Day Years Used Date Smoking Tobacco: Never Smokeless Tobacco: Never Alcohol Use Standard Drinks/Week Comments No 0 (1 standard drink = 0.6 oz pur e alcohol) Comments No Sex and Gender Information Value Date Recorded Sex Assigned at Not on file 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 Gender Identity Not on file Sexual Orientation Not on file documented as of this encounter Discharge Disposition Disposition Code Departure Means Destination Discharge to home or self care documented in this encounter Plan of Treatment Not on file documented as of this encounter Procedures Procedure Name Priority Date/Time Associated Diagnosis Comments HEMOGLOBIN A1C Routine 08/18/2018 11:55 AM CDT Type 2 diabetes mellitus with hyperglycemia, without long-term current use of insulin (CMS/[facility]) documented in this encounter Results * (ABNORMAL) Hemoglobin A1c (08/18/2018 11:55 AM CDT) Hgb A1C 6.7(H) 4.0 - 5.6 % [facility] FOX (BERTA) Estimated Average Glucose 146 mg/dL [facility] FOX (BERTA) Comment: The ADA recommends reporting an estimated Average Glucose (eAG) with all Hemoglobin A1c results using the equation derived from a study of 507 normal and diabetic adults. ??Minority populations were underrepresented and children were not included. ?? (Diabetes Care 31:7449-9073, 2008). ??The eAG is not equivalent to a fasting glucose. Blood specimen (specimen) 08/18/2018 11:55 AM CDT 08/18/2018 2:18 PM CDT Narrative JEFE FOX (BERTA) - 08/18/2018 2:50 PM CDT Polina Rajput MD LAB BLOOD ORDERABLES F inal Result JE[facility] FOX (BERTA) [address] [facility] Department [place] [address] documented in this encounter Visit Diagnoses Diagnosis Type 2 diabetes mellitus with hyperglycemia, without long-term current use of insulin (HCC) documented in this encounter Care Teams Grinder Set Up Operator External Relationship Specialty Start Date End Date Polina Rajput MD PCP - General 01/22/17 05/14/19 documented as of this encounter
--- OUTSIDE RECORDS SUMMARY | 2024-10-23 02:11 | XMS_ITS | Encounter Summary ---
Author Organization [facility] Address [address] [facility] [address] [place] [address] Care Team Providers Care Inseminator Name Role Phone Polina Rajput MD Primary Care Provider Encounter Details Date Type Department Care Team (Late st Contact Info) Description 03/18/2017 Orders Only [facility] of [address] [place] [address] Polina Rajput MD [address] [facility] [address] [place] [address] Social History Tobacco Use Types Packs/Day Years Used Date Smoking Tobacco: Never Alcohol Use Standard Drinks/Week Comments No 0 (1 standard drink = 0.6 oz pur e alcohol) Comments Unknown Sex and Gender Information Value Date Recorded Sex Assigned at Not on file 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 1 - 9 ?? mIU/ml ??Mid-Follicular ?2 - 11 ??mIU/ml ??Mid-Cycle ?19 - 100 mIU/ml ??Mid-Luteal ?1 - 13 ??mIU/ml ??Post Menopausal ??11 - 60 ??mIU/ml -- Male ?1 - 9 ?? mIU/ml Current interpretive data was last revised 2016 Blood specimen (specimen) 03/18/2017 8:33 AM CDT 03/18/2017 8:33 AM CDT Polina Rajput MD LAB BLOOD ORDERABLES F inal Result [facility] [address] [facility] Department [place] [address] documented in this encounter Visit Diagnoses Not on filedocumented in this encounter Care Teams Inseminator Relationship Specialty Start Date End Date Polina Rajput MD PCP - General 01/22/17 05/14/19 documented as of this encounter
--- OUTSIDE RECORDS SUMMARY | 2024-10-23 02:11 | XMS_ITS | Encounter Summary ---
Author Organization [facility] Address [address] [place] [address] Care Team Providers Care Modeling Teacher Name Role Phone Polina Rajput MD Primary Care Provider Encounter Details Date Type Department Care Team (Late st Contact Info) Description 05/05/2018 Orders Only [facility] of [address] [place] [address] Polina Rajput MD [address] [facility] [address] [place] [address] Social History Tobacco Use Types Packs/Day Years Used Date Smoking Tobacco: Never Smokeless Tobacco: Never Alcohol Use Standard Drinks/Week Comments No 0 (1 standard drink = 0.6 oz pur e alcohol) Comments No Sex and Gender Information Value Date Recorded Sex Assigned at Not on file 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 45 g 05/05/2018 9 documented in this encounter Plan of Treatment Not on file documented as of this encounter Visit Diagnoses Not on filedocumented in this encounter Discontinued Medications Medication Sig Discontinue Reason Start Date End Da te mometasone (ELOCON) 0.1 % ointment Apply topically daily. Reorder 05/04/2018 05/05/2018 documented as of this encounter Care Teams Modeling Teacher Relationship Specialty Start Date End Date Polina Rajput MD PCP - General 01/22/17 05/14/19 documented as of this encounter
--- OUTSIDE RECORDS SUMMARY | 2024-10-23 02:11 | XMS_ITS | Encounter Summary ---
Author Organization [facility] Address [address] [place] [address] Care Team Providers Care Material Assistant Name Role Phone Polina Rajput MD Primary Care Provider Reason for Visit * Reason Comments Follow-up Encounter Details Date Type Department Care Team (Late st Contact Info) Description 08/01/2018 5:15 PM CDT Office Visit [facility] of [address] [place] [address] Polina Rajput MD [facility] [address] [address] Type 2 diabetes mellitus with hyperglycemia, without long-term current use of insulin (CMS/HCC) (Primary Dx); Benign hypertension; Moderate episode of recurrent major depressive disorder (CMS/HCC); Menopause syndrome; Uncomplicated asthma, unspecified asthma severity, unspecified whether persistent Social History Tobacco Use Types Packs/Day Years Used Date Smoking Tobacco: Never Smokeless Tobacco: Never Alcohol Use Standard Drinks/Week Comments No 0 (1 standard drink = 0.6 oz pur e alcohol) Comments No Sex and Gender Information Value Date Recorded Sex Assigned at Not on file 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 Gender Identity Not on file Sexual Orientation Not on file documented as of this encounter Last Filed Vital Signs Vital Sign Reading Time Taken Comments Blood Pressure 134/84 08/01/2018 5:01 PM CDT Pulse 84 08/01/2018 5:01 PM CDT Temperature - - Respiratory Rate - - Oxygen Saturation 99% 08/01/2018 5:01 PM CDT Inhaled Oxygen Concentration - - Weight 109.3 kg (241 lb) 08/01/2018 5:01 PM CDT Height 154.9 cm (5' 1 ) 08/01/2018 5:01 PM CDT Body Mass Index 45.54 08/01/2018 5:01 PM CDT documented in this encounter Ordered Prescriptions Prescription Sig Dispense Quantity Refills Last Filled Start Date End Date meloxicam (MOBIC) 15 mg tablet Take 1 tablet (15 mg total) by mouth daily. 90 tablet 2 08/01/2018 03/29/2019 fluticasone-salmet beny (ADVAIR DISKUS) 500-50 mcg/dose diskus inhaler Inhale 1 puff 2 (two) times a day. 60 each 3 08/01/2018 03/10/2019 documented in this encounter Progress Notes * Polina Rajput MD - 08/01/2018 5:15 PM CDT Subjective/Objective Patient ID: Rosa Babb is a 52 y.o. female. Chief Complaint Follow-up HPI She is here for follow-up of her chronic conditions. Overall, she is feeling discouraged. She is taking her medications as prescribed, but she feels as if nothing has changed for her. Feeling extreme fatigue particularly after 7:00 p.m.. 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 Patient is worried that her fatigue is related to her medications. Patient is quite teary-eyed today during her visit. She denies thoughts of hurting herself or others. She does notice some difference with regards to her Premarin in terms of vaginal dryness. Review of Systems Constitutional: Positive for fatigue. Negative for activity change, appetite change, chills, diaphoresis, fever and unexpected weight change. Respiratory: Negative for choking and chest tightness. Cardiovascular: Positive for leg swelling. Negative for chest pain. Gastrointestinal: Negative for abdominal distention and abdominal pain. Genitourinary: Negative for pelvic pain, vaginal bleeding and vaginal discharge. Musculoskeletal: Negative for back pain. Psychiatric/Behavioral: Positive for behavioral problems and decreased concentration. Negative for self-injury. Physical Exam Constitutional: She appears distressed. Neck: Normal range of motion. Neck supple. No JVD present. Cardiovascular: Normal rate and regular rhythm. No murmur heard. Pulmonary/Chest: Effort normal and breath sounds normal. Abdominal: Soft. Bowel sounds are normal. She exhibits no distension and no mass. There is no tenderness. There is no guarding. Musculoskeletal: Normal range of motion. She exhibits no edema. Neurological: She is alert. She displays normal reflexes. Psychiatric: She exhibits a depressed mood. Rosa was seen today for follow-up. Diagnoses and all orders for this visit: Type 2 diabetes mellitus with hyperglycemia, without long-term current use of insulin ([facility]) Comments: Check hemoglobin A1c. Reassurance that it is important for patient to take medication ensuring compliance. Orders: - Hemoglobin A1c; Future Benign hypertension Comments: Significant improvement in number since starting a medication. Advised patient not to discontinue medications. Moderate episode of recurrent major depressive disorder ([facility]) Comments: Strongly recommended patient start SS RI therapy. Patient declines. She will keep me posted of her symptoms Menopause syndrome Comments: clinically improved with start of Premarin. Recheck in 3-6 months. Other orders - fluticasone-salmeterol (ADVAIR DISKUS) 500-50 mcg/dose diskus inhaler; Inhale 1 puff 2 (two) times a day. - meloxicam (MOBIC) 15 mg tablet; Take 1 tablet (15 mg total) by mouth daily. documented in this encounter Plan of Treatment Not on file documented as of this encounter Results * (ABNORMAL) Hemoglobin A1c [...] children were not included. ?? (Diabetes Care 31:[id number], 2007). ??The eAG is not equivalent to a fasting glucose. Blood specimen (specimen) 08/18/2018 11:55 AM CDT 08/18/2018 2:18 PM CDT Narrative [facility] ([place]) - 08/18/2018 2:50 PM CDT Polina Rajput MD LAB BLOOD ORDERABLES F inal Result [facility] ([place]) [address] [facility] Department [place] [address] documented in this encounter Visit Diagnoses Diagnosis Type 2 diabetes mellitus with hyperglycemia, without long-term current use of insulin (HCC)- Primary Benign hypertension Essential hypertension, benign Moderate episode of recurrent major depressive disorder (HCC) Menopause syndrome Symptomatic menopausal or female climacteric states Uncomplicated asthma, unspecified asthma severity, unspecified whether persistent Type 2 diabetes mellitus with hyperglycemia, without long-term current use of insulin (HCC) documented in this encounter Discontinued Medications Medication Sig Discontinue Reason Start Date End Da te fluticasone-salmeterol (ADVAIR DISKUS) 500-50 mcg/dose diskus inhaler INHALE ONE DOSE BY MOUTH TWICE DAILY Reorder 06/14/2007 08/01/2018 meloxicam (MOBIC) 15 mg tablet TAKE 1 TABLET DAILY Reorder 11/26/2017 08/01/2018 documented as of this encounter Care Teams Material Assistant Relationship Specialty Start Date End Date Polina Rajput MD PCP - General 01/22/17 05/14/19 documented as of this encounter
--- OUTSIDE RECORDS SUMMARY | 2024-10-23 02:11 | XMS_ITS | Encounter Summary ---
Author Organization [facility] Address [address] [place] [address] Care Team Providers Care Textile Science Technician Name Role Phone Polina Rajput MD Primary Care Provider Reason for Visit * Reason Comments Follow-up vaginal itching Encounter Details Date Type Department Care Team (Late st Contact Info) Description 05/02/2018 4:15 PM CDT Office Visit [facility] of [address] [place] [address] Polina Rajput MD [address] [id number] Perimenopause (Primary Dx); Type 2 diabetes mellitus with hyperglycemia, unspecified whether intermediate accountant insulin use (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 Gender Identity Not on file Sexual Orientation Not on file documented as of this encounter Last Filed Vital Signs Vital Sign Reading Time Taken Comments Blood Pressure 132/74 05/02/2018 4:19 PM CDT Pulse 93 05/02/2018 4:19 PM CDT Temperature - - Respiratory Rate - - Oxygen Saturation 95% 05/02/2018 4:19 PM CDT Inhaled Oxygen Concentration - - Weight 103 kg (227 lb) 05/02/2018 4:19 PM CDT Height 154.9 cm (5' 1 ) 05/02/2018 4:19 PM CDT Body Mass Index 42.89 05/02/2018 4:19 PM CDT documented in this encounter Progress Notes * Polina Rajput MD - 05/02/2018 4:15 PM CDT Subjective/Objective Patient ID: Rosa Babb is a 52 y.o. female. Chief Complaint Follow-up (vaginal itching) HPI patient is here for follow-up of her recent check of diabetes hypertension and vaginitis. Her blood pressure and blood glucose has improved, however, her vaginal discomfort has not. She is restarted back her blood pressure medication as well as her diabetic medication. She denies any visual start disturbances chest pain or shortness of breath. She still has labia pruritic symptoms. No discharge. She has done 2 rounds of Diflucan therapy without significant improvement of her symptoms. Associated symptoms include hot flashes mood swings and irritability. Patient with history of partial hysterectomy greater than 10 years ago. She is wondering if her symptoms may be related to menopause. Review of Systems Constitutional: Positive for fatigue. Negative for activity change, appetite change, fever and unexpected weight change. Respiratory: Negative for shortness of breath and stridor. Cardiovascular: Negative for chest pain and leg swelling. Gastrointestinal: Negative for abdominal distention and abdominal pain. Endocrine: Negative for cold intolerance. Genitourinary: Positive for genital sores and vaginal pain. Negative for dysuria, hematuria and menstrual problem. Neurological: Negative for facial asymmetry and headaches. Hematological: Negative for adenopathy. Physical Exam Constitutional: She appears well-developed and well-nourished. No distress. HENT: Right Ear: External ear normal. Left Ear: External ear normal. Mouth/Throat: Oropharynx is clear and moist. Eyes: EOM are normal. Neck: Normal range of motion. Neck supple. No JVD present. Cardiovascular: Normal rate, regular rhythm and normal heart sounds. Pulmonary/Chest: Effort normal and breath sounds normal. Abdominal: Soft. Bowel sounds are normal. She exhibits no distension. There is no tenderness. Skin: Skin is warm and dry. Psychiatric: She has a normal mood and affect. Thought content normal. Vitals reviewed. Rosa was seen today for follow-up. Diagnoses and all orders for this visit: Perimenopause Comments: Check FSH and LH. Adjust treatment plan accordingly pending results. Orders: - LH; Future - Follicle stimulating hormone; Future Type 2 diabetes mellitus with hyperglycemia, unspecified whether intermediate accountant insulin use ([facility]) Comments: Doing much better with regimen. Recheck A1c in 3 months. Orders: - POCT microalbumin Benign hypertension Comments: Also it will significantly improved with restart of medications. Recheck in 3 months. documented in this encounter Plan of Treatment Not on file documented as of this encounter Procedures Procedure Name Priority Date/Time Associated Diagnosis Comments POCT MICROALBUMIN Routine 05/02/2018 6:3 0 PM CDT Type 2 diabetes mellitus with hyperglycemia, unspecified whether intermediate accountant insulin use ([facility]) HM URINE MICROALBUMNIN Routine 05/02/2018 documented in this encounter Results * Follicle stimulating hormone (05/04/2018 3:28 PM CDT) FSH 49.8 mIUnits/mL [facility] ([place]) Comment: Interpretive Data Reference Interval Female ??<10 years ? 1 - 19 ??mIU/ml ??Mid-Follicular ?4 - 9 ?? mIU/ml ??Mid-Cycle ? 4 - 23 ??mIU/ml ??Mid-Luteal ?2 - 5 ?? mIU/ml ??Post Menopausal ??16 - 114 mIU/ml -- Male ?1 - 19 ??mIU/ml Current interpretive data was last revised on 2016 Testing performed by: [facility], [address] [place] [address], [place]., [address] Blood specimen (specimen) 05/04/2018 3:28 PM CDT 05/05/2018 11:04 AM CDT Narrative [facility] ([place]) - 05/05/2018 12:04 PM CDT us Polina Rajput MD LAB BLOOD ORDERABLES F inal Result Performing Organization Address [facility] [[email or web address]] Co de Phone Number JEFE [facility] ([place]) [address] [facility] [place] [address] * LH (05/04/2018 3:28 PM CDT) LH 29 mIUnits/mL [facility] Hall ([place]) Comment: Interpretive Data Reference Interval Female ??<10 years ? 1 - 9 ?? mIU/ml ??Mid-Follicular ?2 - 11 ??mIU/ml ??Mid-Cycle ?19 - 100 mIU/ml ??Mid-Luteal ?1 - 13 ??mIU/ml ??Post Menopausal ??11 - 60 ??mIU/ml -- Male ?1 - 9 ?? mIU/ml Current interpretive data was last revised 2016 Testing performed by: [facility], [address] [place] [address]., [id number] Blood specimen (specimen) 05/04/2018 3:28 PM CDT 05/05/2018 11:04 AM CDT Narrative [facility] ([place]) - 05/05/2018 12:04 PM CDT us Polina Rajput MD LAB BLOOD ORDERABLES F inal Result Performing Organization Address [facility]/ZIP Co de Phone Number [facility] ([place]) 1 [facility] [place] [address] * POCT microalbumin (05/02/2018 6:30 PM CDT) Microalbumin, POC 30mg mg/L Urine 05/02/2018 6:30 PM CDT Polina Rajput MD POINT OF CARE TEST ORD ERABLES Final Result * HM URINE MICROALBUMNIN (05/02/2018) SCRIBED Microalbumin 30 mg Historical Provider HEALTH MAINTENANCE Final Result documented in this encounter Visit Diagnoses Diagnosis Perimenopause- Primary Symptomatic menopausal or female climacteric states Type 2 diabetes mellitus with hyperglycemia, unspecified whether intermediate accountant insulin use (HCC) Benign hypertension Essential hypertension, benign Perimenopause Symptomatic menopausal or female climacteric states documented in this encounter Discontinued Medications Medication Sig Discontinue Reason Start Date End Da te fluconazole (DIFLUCAN) 150 mg tablet Take 1 tablet (150 mg total) by mouth as directed. Take one tab now. Repeat in 7 days if symptoms persist. 04/25/2018 05/02/2018 documented as of this encounter Care Teams Textile Science Technician Relationship Specialty Start Date End Date Polina Rajput MD PCP - General 01/22/17 05/14/19 documented as of this encounter
--- OUTSIDE RECORDS SUMMARY | 2024-10-23 02:11 | XMS_ITS | Encounter Summary ---
Author Organization [facility] Address [address] [place] [address] Care Team Providers Care Quantitative Consultant Name Role Phone Polina Rajptu MD Primary Care Provider Encounter Details Date Type Department Care Team (Late st Contact Info) Description 05/04/2018 Telephone [facility] of [address] [place] [address] Polina Rajput MD [address] [address] Social History Tobacco Use Types Packs/Day Years Used Date Smoking Tobacco: Never Smokeless Tobacco: Never Alcohol Use Standard Drinks/Week Comments No 0 (1 standard drink = 0.6 oz pur e alcohol) Comments No Sex and Gender Information Value Date Recorded Sex Assigned at Not on file 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 Will have atpharmacy tomorrow. Thanks. * Telephone Encounter - Nickie Montalvo MA - 05/04/2018 3:36 PM CDT Pt calling stating she does not have the ointment she was given from the cyber systems administrator she saw awhile back soshe does not know the name of it. She is wanting to know if you will send in something for the vaginal problem she is having. documented in this encounter Plan of Treatment Not on file documented as of this encounter Visit Diagnoses Not on filedocumented in this encounter Care Teams Quantitative Consultant Relationship Specialty Start Date End Date Polina Rajput MD PCP - General 01/22/17 05/14/19 documented as of this encounter
--- OUTSIDE RECORDS SUMMARY | 2024-10-23 02:11 | XMS_ITS | Encounter Summary ---
Author Organization [facility] Address [address] [place] [address] Care Team Providers Care Research Management Associate Name Role Phone Lucas Rajput MD Primary Care Provider Encounter Details Date Type Department Care Team (Late st Contact Info) Description 12/14/2015 10:59 AM OIL DISPENSER - 12/14/2015 11:59 PM OIL DISPENSER Hospital Encounter [facility] Lucas Rajput MD [address] [facility] [address] [place] [address] Encounter for screening mammogram for malignant neoplasm of breast Social History Tobacco Use Types Packs/Day Years Used Date Smoking Tobacco: Never Alcohol Use Standard Drinks/Week Comments No 0 (1 standard drink = 0.6 oz pur e alcohol) Comments Unknown Sex and Gender Information Value Date Recorded Sex Assigned at Not on file Legal Sex Female 8:35 AM OIL DISPENSER Gender Identity Not on file Sexual Orientation Not on file documented as of this encounter Medications at Time of Discharge amLODIPine (NORVASC) 5 mg tablet TAKE ONE TABLET BY MOUTH EVERY DAY 90 2 05/30/2013 07/01/2017 aspirin 81 mg tablet take 1 tablet (81MG) by ORAL route every day 0 01/15/2010 03/29/2019 fluticasone-salme terol (ADVAIR DISKUS) 500-50 mcg/dose diskus inhaler INHALE ONE DOSE BY MOUTH TWICE DAILY 3 3 06/14/2007 08/01/2018 lisinopril-hydroC HLOROthiazide (PRINZIDE,ZESTORE TIC) 20-12.5 mg per tablet Take two by mouth one time per day 180 3 09/13/2007 10/01/2017 meloxicam (MOBIC) 7.5 mg tablet TAKE ONE TABLET BY MOUTH TWICE DAILY FOR PAIN/ARTHRITI S 60 0 12/24/2014 03/29/2017 documented as of this encounter Plan of Treatment Not on file documented as of this encounter Procedures Procedure Name Priority Date/Time Associated Diagnosis Comments DIGITAL MAMMOGRAPHY Routine 12/14/2015 1 1:14 AM OIL DISPENSER documented in this encounter Results * DIGITAL MAMMOGRAPHY (12/14/2015 11:14 AM OIL DISPENSER) Anatomical Region Laterality Modality Breast Mammography 12/14/2015 11:1 4 AM OIL DISPENSER Narrative 12/16/2015 12:12 PM OIL DISPENSER Screening Mamm Bi ??Acc#: ??[id number] DATE OF EXAM: ??Dec 14 2015 Performed by: virgilio CLINICAL HISTORY: Screening. RESULT: Craniocaudal and mediolateral oblique views demonstrate breasts composed of scattered fibroglandular densities. ??No dominant mass, skin thickening, nipple retraction or suspicious cluster of microcalcifications is seen. ??Left upper outer quadrant intramammary lymph node with fatty replacement is old and unchanged. Digital technology was employed plus computer-aided detection software (R2) was utilized in interpretation of these images. ??This facility utilizes a reminder system to notify patients of yearly mammograms. IMPRESSION: 1. NO FINDING SUSPICIOUS FOR MALIGNANCY. 2. NO SIGNIFICANT CHANGE SINCE 10 DECEMBER 2014 OR 13 NOVEMBER 2013. 3. RECOMMEND RE-SCREENING IN ONE YEAR. BI-RADS CATEGORY 2 - BENIGN Interpreting Physician: ??DR OBEY SHARPE M.D. ??Read on: ??Dec 16 2015 11:07A Transcribed by: ??mrr ??On: Dec 16 2015 11:07A Approved Electronically by: ??ANNEMARIE Regan, DR BARNHART ??on: ??Dec 16 2015 12:12P Attending: ??LUCAS RAJPUT Requesting: ??LUANGJAMEKORN, ZAVALA Requesting Fax: ??[phone] Attending Fax: ??[phone] Attending ID: ??[id number] Requesting ID: ??[id number] Report To 1 ID: ??[id number] Report To 1 Name: ??LUCAS RAJPUT Report To 1 FAX: ??[phone] NextGen Order #: Procedure Note Provider, MD Coty - 02/11/2017 Screening Mamm Bi Acc#: [id number] DATE OF EXAM: Dec 14 2015 Performed by: virgilio CLINICAL HISTORY: Screening. RESULT: Craniocaudal and mediolateral oblique views demonstrate breasts composedof scattered fibroglandular densities. No dominant mass, skin thickening,nipple retraction or suspicious cluster of microcalcifications is seen.Left upper outer quadrant intramammary lymph node with fatty replacementis old and unchanged. Digital technology was employed plus computer-aideddetection software (Maximus) was utilized in interpretation of these images.This facility utilizes a reminder system to notify patients of yearlymammograms. IMPRESSION: 1. NO FINDING SUSPICIOUS FOR MALIGNANCY. 2. NO SIGNIFICANT CHANGE SINCE 10 DECEMBER 2014 OR 13 NOVEMBER 2013. 3. RECOMMEND RE-SCREENING IN ONE YEAR. BI-RADS CATEGORY 2 - BENIGN Interpreting Physician: DR OBEY SHARPE M.D. Read on: Dec 16 201511:07A Transcribed by: aisha On: Dec 16 2015 11:07A Approved Electronically by: ANNEMARIE Regan, DR BARNHART on: Dec 16 201512:12P Attending: LUCAS RAJPUT Requesting: LUCAS RAJPUT Requesting Attending Attending ID: [id number] Requesting ID: [id number] Report To 1 ID: [id number] Report To 1 Name: LUCAS RAJPUT Report To 1 FAX: [phone] NextGen Order #: us Historical Provider MD [place] [facility]ED[facility] Dede l Result documented in this encounter Visit Diagnoses Diagnosis Encounter for screening mammogram for malignant neoplasm of breast documented in this encounter Care Teams Research Management Associate Relationship Specialty Start Date End Date Lucas Rajput MD PCP - General 04/16/10 01/21/17 documented as of this encounter
--- OUTSIDE RECORDS SUMMARY | 2024-10-23 02:11 | XMS_ITS | Encounter Summary ---
Author Organization [facility] Address [address] [place] [address] Care Team Providers Care Personnel Consultant Name Role Phone Polina Rajput MD Primary Care Provider Reason for Visit * Reason Comments Follow-up 6 months labs work Encounter Details Date Type Department Care Team (Late st Contact Info) Description 10/20/2017 11:00 AM CASING MAN Office Visit [facility] [address] [place] [address] Polina Rajput MD [address] [id number] Benign hypertension (Primary Dx); Need for vaccination; Pure hypercholesterolemia ; Recurrent major depressive disorder, remission status unspecified (CMS/HCC); Type 2 diabetes mellitus with complication, without long-term current use of insulin (CMS/[facility]) Social History Tobacco Use Types Packs/Day Years Used Date Smoking Tobacco: Never Smokeless Tobacco: Never Alcohol Use Standard Drinks/Week Comments No 0 (1 standard drink = 0.6 oz pur e alcohol) Comments Unknown Sex and Gender Information Value Date Recorded Sex Assigned at Not on file Legal Sex Female 8:35 AM CASING MAN Gender Identity Not on file Sexual Orientation Not on file documented as of this encounter Last Filed Vital Signs Vital Sign Reading Time Taken Comments Blood Pressure 159/86 10/20/2017 10:58 AM CASING MAN Pulse 81 10/20/2017 10:58 AM CASING MAN Temperature - - Respiratory Rate - - Oxygen Saturation 97% 10/20/2017 10:58 AM CASING MAN Inhaled Oxygen Concentration - - Weight 106.6 kg (235 lb) 10/20/2017 10:58 AM CASING MAN Height 154.9 cm (5' 1 ) 10/20/2017 10:58 AM CASING MAN Body Mass Index 44.4 10/20/2017 10:58 AM CASING MAN documented in this encounter Progress Notes * Polina Rajput MD - 10/20/2017 11:00 AM CST Subjective/Objective Patient ID: Rosa Babb is a 52 y.o. female. Chief Complaint Follow-up (6 months labs work) HPI she is here for follow up of her chronic conditons. Overall, she is doing well. She admits thatshe has not been taking her antihypertensive med as prescribed due to forgetfulness. Other meds sheis taking as prescribed. Denies chest pain, shortness of breath or other associated sxs. Review of Systems Constitutional: Positive for fatigue and unexpected weight change. Negative for activity change, appetite change, diaphoresis and fever. Eyes: Negative for visual disturbance. Respiratory: Negative for chest tightness. Cardiovascular: Negative for chest pain, palpitations and leg swelling. Gastrointestinal: Negative for abdominal distention. Genitourinary: Negative for difficulty urinating. Musculoskeletal: Positive for joint swelling. Neurological: Negative for dizziness. Hematological: Does not bruise/bleed easily. Psychiatric/Behavioral: Negative for sleep disturbance. The patient is not nervous/anxious. Physical Exam Eyes: EOM are normal. Left eye exhibits no discharge. Neck: Normal range of motion. Neck supple. Cardiovascular: Normal rate, regular rhythm and normal heart sounds. Pulses: Dorsalis pedis pulses are 2+ on the right side, and 2+ on the left side. Pulmonary/Chest: Effort normal and breath sounds normal. Abdominal: Soft. Bowel sounds are normal. She exhibits no distension. There is no tenderness. Musculoskeletal: Normal range of motion. She exhibits edema. Feet: Right Foot: Monofilament exam normal. Left Foot: Monofilament exam normal. Neurological: She is alert. Skin: Skin is warm. Rosa was seen today for follow-up. Diagnoses and all orders for this visit: Benign hypertension Comments: uncontrolled. pt. will restart med as prescribed.Take home bp readings for us. If not controlled orimproved, follow up in 6 weeks. If improved, 6 months Need for vaccination Comments: update immunizations today. Orders: - Flulaval Quad PF 6 months or older IM Pure hypercholesterolemia Comments: controlled on current regimen. r echeck in 6 months. Recurrent major depressive disorder, remission status unspecified (CMS/HCC) Comments: stable on current med regimen. REcheck in 6 months Type 2 diabetes mellitus with complication, without long-term current use of insulin (CMS/HCC) Comments: fairly stable on regimen. dietary modifications. rEcheck in 6 months. NG MAN documented in this encounter Plan of Treatment Not on file documented as of this encounter Visit Diagnoses Diagnosis Benign hypertension- Primary Essential hypertension, benign Need for vaccination Need for prophylactic vaccination and inoculation against unspecified single disease Pure hypercholesterolemia Recurrent major depressive disorder, remission status unspecified (HCC) Type 2 diabetes mellitus with complication, without long-term current use of insulin (HCC) documented in this encounter Orders Immunization/Injection Count Last Ordered Date First Ordered Date FLU VACCINE QUAD PRESV FREE 6 MO OR OLDER IM 1 10/20/2017 documented in this encounter Care Teams Personnel Consultant Relationship Specialty Start Date End Date Polina Rajput MD PCP - General 01/22/17 05/14/19 documented as of this encounter
--- OUTSIDE RECORDS SUMMARY | 2024-10-23 02:11 | XMS_ITS | Encounter Summary ---
Author Organization [facility] Healthcare Address [address] [place] [address] Care Team Providers Care Community Support Associate Name Role Phone Lucas Rajput MD Primary Care Provider Encounter Details Date Type Department Care Team (Late st Contact Info) Description 12/10/2014 7:48 AM SERVICE OR WORK DISPATCHER CHIEF - 12/10/2014 11:59 PM SERVICE OR WORK DISPATCHER CHIEF Hospital Encounter [facility] Lucas Rajput MD [address] [facility] [address] [place] [address] Other screening mammogram Social History Tobacco Use Types Packs/Day Years Used Date Smoking Tobacco: Never Assessed Comments Unknown Sex and Gender Information Value Date Recorded Sex Assigned at Not on file Legal Sex Female 8:35 AM SERVICE OR WORK 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 Screening Mamm Bi ??Acc#: ??[id number] DATE OF EXAM: ??Dec 10 2014 CLINICAL HISTORY: Routine screening. RESULT: A screening mammogram was performed and compared with prior studies dated 11/13/13 and 10/26/12. The breast tissue is composed of scattered fibroglandular densities (25 to 50% glandular). ??Little change since the prior mammograms is noted. An intramammary lymph node in the left upper outer quadrant is unchanged. No new dominant mass, architectural distortion or suspicious calcifications are seen. Digital technology was employed plus computer-aided detection software (R2) was utilized in interpretation of these images. ??This facility utilizes a reminder system to notify patients of yearly mammograms. IMPRESSION: 1. NO SUSPICIOUS FINDINGS TO INDICATE MALIGNANCY. BI-RADS CATEGORY 2 - BENIGN Interpreting Physician: ??TAMERA MUKHERJEE M.D. ??Read on: ??Dec 10 2014 8:12A Transcribed by: ??wale ?? On: Dec 10 2014 11:26A Approved Electronically by: ??TAMERA MUKHERJEE M.D. ??on: ??Dec 10 2014 11:27A Attending: ??LUCAS RAJPUT Requesting: ??LUCAS RAJPUT Requesting Fax: ??-- Attending Fax: ??-- Attending ID: ?? Requesting ID: ??[id number] Report To 1 ID: ??[id number] Report To 1 Name: ??LUCAS RAJPUT Report To 1 FAX: ??-- NextGen Order #: Procedure Note Provider, MD Coty - 02/11/2017 Performed by: Screening Mamm Bi Acc#: [id number] DATE OF EXAM: Dec 10 2014 CLINICAL HISTORY: Routine screening. RESULT: A screening mammogram was performed and compared with prior studies date11/13/13 and 10/26/12. The breast tissue is composed of scatteredfibroglandular densities (25 to 50% glandular). Little change since theprior mammograms is noted. An intramammary lymph node in the left upperouter quadrant is unchanged. No new dominant mass, architecturaldistortion or suspicious calcifications are seen. Digital technology wasemployed plus computer-aided detection software (R2) was utilized ininterpretation of these images. This facility utilizes a reminder systemto notify patients of yearly mammograms. IMPRESSION: 1. NO SUSPICIOUS FINDINGS TO INDICATE MALIGNANCY. BI-RADS CATEGORY 2 -BENIGN Interpreting Physician: TAMERA MUKHERJEE M.D. Read on: Dec 10 20148:12A Transcribed by: wale On: Dec 10 2014 11:26A Approved Electronically by: TAMERA MUKHERJEE M.D. on: Dec 10 201411:27A Attending: LUCAS RAJPUT Requesting: LUCAS RAJPUT Requesting Fax: -- Attending Fax: -- Attending ID: Requesting ID: [id number] Report To 1 ID: [id number] Report To 1 Name: LUCAS RAJPUT Report To 1 FAX: -- NextGen Order #: Historical Provider MD [facility] Dede l Result documented in this encounter Visit Diagnoses Diagnosis Other screening mammogram documented in this encounter Care Teams Community Support Associate Relationship Specialty Start Date End Date Lucas Rajptu MD PCP - General 04/16/10 01/21/17 documented as of this encounter
--- OUTSIDE RECORDS SUMMARY | 2024-10-23 02:11 | XMS_ITS | Encounter Summary ---
Author Organization [facility] Medical [facility] Address [address] [place] [address] Care Team Providers Care Debt Management Counselor Name Role Phone Polina Rajput MD Primary Care Provider Reason for Visit * Reason Onset Date Comments Med Refill 06/28/2018 Encounter Details Date Type Department Care Team (Late st Contact Info) Description 06/28/2018 Telephone [facility] [address] [place] [address] Polina Rajput MD [facility] [address] [address] Med Refill Social History Tobacco Use Types Packs/Day Years Used Date Smoking Tobacco: Never Smokeless Tobacco: Never Alcohol Use Standard Drinks/Week Comments No 0 (1 standard drink = 0.6 oz pur e alcohol) Comments No Sex and Gender Information Value Date Recorded Sex Assigned at Not on file Legal Sex Female 8:35 AM 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 Will send rx [facility]. Thanks. * Telephone Encounter - Nickie Montalvo MA - 06/28/2018 4:40 PM CDT Pt states these are working and would like a 90 day sent to mail order documented in this encounter Plan of Treatment Not on file documented as of this encounter Visit Diagnoses Not on filedocumented in this encounter Care Teams Debt Management Counselor Relationship Specialty Start Date End Date Polina Rajput MD PCP - General 01/22/17 05/14/19 documented as of this encounter
--- OUTSIDE RECORDS SUMMARY | 2024-10-23 02:11 | XMS_ITS | Encounter Summary ---
Author Organization [facility] Medical [facility] Address [address] [place] [address] Care Team Providers Care Internet Marketing Executive Name Role Phone Polina Rajput MD Primary Care Provider Reason for Visit * Reason Comments Cough x 5 days Encounter Details Date Type Department Care Team (Late st Contact Info) Description 12/19/2018 5:15 PM FAMILY AND CONSUMER SCIENCES TEACHER Office Visit [facility] [address] [place] [address] Polina Rajput MD [facility] [address] [address] Type 2 diabetes mellitus with hyperglycemia, unspecified whether detention insulin use ([facility]) (Primary Dx); Acute sinusitis, recurrence not specified, unspecified location Social History Tobacco Use Types Packs/Day Years Used Date Smoking Tobacco: Never Smokeless Tobacco: Never Alcohol Use Standard Drinks/Week Comments No 0 (1 standard drink = 0.6 oz pur e alcohol) Comments No Sex and Gender Information Value Date Recorded Sex Assigned at Not on file Legal Sex Female 8:35 AM FAMILY AND CONSUMER SCIENCES TEACHER Gender Identity Not on file Sexual Orientation Not on file documented as of this encounter Last Filed Vital Signs Vital Sign Reading Time Taken Comments Blood Pressure 144/83 12/19/2018 5:19 PM FAMILY AND CONSUMER SCIENCES TEACHER Pulse 83 12/19/2018 5:19 PM FAMILY AND CONSUMER SCIENCES TEACHER Temperature 36.8 ??C (98.2 ??F) 12/19/2018 5:19 PM CS T Respiratory Rate - - Oxygen Saturation 98% 12/19/2018 5:19 PM FAMILY AND CONSUMER SCIENCES TEACHER Inhaled Oxygen Concentration - - Weight 107 kg (236 lb) 12/19/2018 5:19 PM FAMILY AND CONSUMER SCIENCES TEACHER Height 154.9 cm (5' 1 ) 12/19/2018 5:19 PM FAMILY AND CONSUMER SCIENCES TEACHER Body Mass Index 44.59 12/19/2018 5:19 PM FAMILY AND CONSUMER SCIENCES TEACHER documented in this encounter Ordered Prescriptions Prescription Sig Dispense Quantity Refills Last Filled Start Date End Date methylPREDNISolone (MEDROL DOSEPACK) 4 mg Dosepack Take as directed on package. 21 tablet 12/19/2018 9 codeine-guaifenesi n 7.5-225 mg/5 mL liquid Take 1-2 tsp every 6 hours prn for cough 120 mL 12/19/2018 9 amoxicillin-clavul anate (AUGMENTIN) 875-125 mg per tablet Take 1 tablet by mouth 2 (two) times a day for 10 days. 20 tablet 12/19/2018 9 documented in this encounter Progress Notes * Polina Rajput MD - 12/19/2018 5:15 PM CST Subjective/Objective Patient ID: Rosa Babb is a 53 y.o. female. Chief Complaint Cough (x 5 days) HPIPt prsents with sxs of above. Duration is 5 days. Associated sxs include fatigue, cough, congestion of chest and sinuses. Multiple sick contacts with similar sxs. No other associated sxs or modifying factors. Review of Systems Constitutional: Positive for activity change and fatigue. Negative for appetite change, chills, fever and unexpected weight change. HENT: Positive for congestion, postnasal drip, sinus pain and sinus pressure. Respiratory: Positive for cough. Negative for shortness of breath and wheezing. Cardiovascular: Negative for chest pain and leg swelling. Gastrointestinal: Negative for abdominal pain. Endocrine: Negative for cold intolerance and heat intolerance. Genitourinary: Negative for difficulty urinating. Physical Exam Constitutional: She appears well-developed and well-nourished. She appears distressed. HENT: Nose: Right sinus exhibits maxillary sinus tenderness and frontal sinus tenderness. Left sinus exhibits maxillary sinus tenderness and frontal sinus tenderness. Cardiovascular: Normal rate and regular rhythm. Pulmonary/Chest: Effort normal and breath sounds normal. Abdominal: Soft. Bowel sounds are normal. Skin: Skin is warm. Psychiatric: She has a normal mood and affect. Her behavior is normal. Rosa was seen today for cough. Diagnoses and all orders for this visit: Type 2 diabetes mellitus with hyperglycemia, unspecified whether detention insulin use ([facility]) - Hemoglobin A1c; Future - Comprehensive metabolic panel; Future Acute sinusitis, recurrence not specified, unspecified location Comments: augmentin and medrol godwin per emr. follow up if sxs persist or worsen. Other orders - amoxicillin-clavulanate (AUGMENTIN) 875-125 mg per tablet; Take 1 tablet by mouth 2 (two) times aday for 10 days. - Discontinue: codeine-guaifenesin 7.5-225 mg/5 mL liquid; Take 1-2 tsp every 6 hours prn for cough - methylPREDNISolone (MEDROL DOSEPACK) 4 mg Dosepack; Take as directed on package. LY AND CONSUMER SCIENCES TEACHER documented in this encounter Plan of Treatment Not on file documented as of this encounter Results * Comprehensive metabolic panel (02/13/2019 11:52 AM [...] 2017. Calcium 9.2 8.5 - 10.3 mg/dL [facility] ([place]) Bilirubin, total 0.2 0.1 - 1.2 mg/dL [facility] ([place]) Protein, pl 7.7 6.5 - 8.5 g/dL [facility] ([place]) Albumin 3.9 3.5 - 5.0 g/dL [facility] ([place]) Alk phos 83 40 - 130 Units/L [facility] ([place]) ALT 18 7 - 45 Units/L [facility] ([place]) AST 21 10 - 45 Units/L [facility] ([place]) Blood specimen (specimen) 02/13/2019 11:52 AM CDT 02/13/2019 2:22 PM CDT Narrative [facility] ([place]) - 02/13/2019 2:40 PM CDT Polina Rajput MD LAB BLOOD ORDERABLES F inal Result [facility] ([place]) 1 [facility] Department [place] [address] * (ABNORMAL) Hemoglobin A1c (02/13/2019 11:52 AM CDT) Hgb A1C 7.6(H) 4.0 - 5.6 % [facility] ([place]) Estimated Average Glucose 171 mg/dL [facility] ([place]) Comment: The ADA recommends reporting an estimated Average Glucose (eAG) with all Hemoglobin A1c results using the equation derived from a study of 507 normal and diabetic adults. ??Minority populations were underrepresented and children were not included. ?? (Diabetes Care 31:5236-3886, 2008). ??The eAG is not equivalent to a fasting glucose. Blood specimen (specimen) 02/13/2019 11:52 AM CDT 02/13/2019 2:22 PM CDT Narrative [facility] ([place]) - 02/13/2019 2:48 PM CDT Polina Rajput MD LAB BLOOD ORDERABLES F inal Result [facility] ([place]) [facility] Department [place] [address] documented in this encounter Visit Diagnoses Diagnosis Type 2 diabetes mellitus with hyperglycemia, unspecified whether detention insulin use (HCC)- Primary Acute sinusitis, recurrence not specified, unspecified location Acute gout of right hand, unspecified cause Type 2 diabetes mellitus with hyperglycemia, unspecified whether detention insulin use (HCC) documented in this encounter Discontinued Medications Medication Sig Discontinue Reason Start Date End Da te estrogens, conjugated, (PREMARIN) 0.625 mg tabletIndications:Vasom otor Symptoms associated with Menopause Take 1 tablet (0.625 mg total) by mouth daily. Take daily for 21 days then do not take for 7 days. 06/30/2018 12/19/2018 fluconazole (DIFLUCAN) 150 mg tablet Take 1 tablet (150 mg total) by mouth as directed. Take one tab now. Repeat in 7 days if symptoms persist. 11/16/2018 12/19/2018 documented as of this encounter Historical Medications * This list may reflect changes made after this encounter. turmeric root extract 500 mg capsule Take by mouth 2 (two) times a day. cyanocobalamin (Vitamin B-12) 500 mcg tabletIndications :Prevention of Vitamin B12 Deficiency Take 1 tablet (500 mcg total) by mouth daily added in this encounter Care Teams Internet Marketing Executive Relationship Specialty Start Date End Date Polina Rajput MD PCP - General 01/22/17 05/14/19 documented as of this encounter
--- OUTSIDE RECORDS SUMMARY | 2024-10-23 02:11 | XMS_ITS | Encounter Summary ---
Author Organization [facility] Medical Group Address [address] [place] [address] Care Team Providers Care Master At Arms Name Role Phone IndiraPolina alcantar Primary Care Provider Reason for Visit * Reason Comments URI x 1 month Encounter Details Date Type Department Care Team (Late st Contact Info) Description 11/16/2018 4:00 PM HEAT TREATING BLUER Office Visit [facility] [address] [place] [address] Emelia Yang, [place] [address] [facility] [address] [place] [address] Acute non-recurrent maxillary sinusitis (Primary Dx) Social History Tobacco Use Types Packs/Day Years Used Date Smoking Tobacco: Never Smokeless Tobacco: Never Alcohol Use Standard Drinks/Week Comments No 0 (1 standard drink = 0.6 oz pur e alcohol) Comments No Sex and Gender Information Value Date Recorded Sex Assigned at Not on file Legal Sex Female 8:35 AM HEAT TREATING BLUER Gender Identity Not on file Sexual Orientation Not on file documented as of this encounter Last Filed Vital Signs Vital Sign Reading Time Taken Comments Blood Pressure 128/79 11/16/2018 4:03 PM HEAT TREATING BLUER Pulse 83 11/16/2018 4:03 PM HEAT TREATING BLUER Temperature 37.1 ??C (98.7 ??F) 11/16/2018 4:03 PM CS T Respiratory Rate - - Oxygen Saturation 96% 11/16/2018 4:03 PM HEAT TREATING BLUER Inhaled Oxygen Concentration - - Weight 108.3 kg (238 lb 11.2 oz) 11/16/2018 4:03 PM HEAT TREATING BLUER Height 154.9 cm (5' 1 ) 11/16/2018 4:03 PM HEAT TREATING BLUER Body Mass Index 45.1 11/16/2018 4:03 PM HEAT TREATING BLUER documented in this encounter Ordered Prescriptions Prescription Sig Dispense Quantity Refills Last Filled Start Date End Date fluconazole (DIFLUCAN) 150 mg tablet Take 1 tablet (150 mg total) by mouth as directed. Take one tab now. Repeat in 7 days if symptoms persist. 2 tablet 11/16/2018 9 guaiFENesin-codein e (GUAITUSS AC) liquid 100-10 mg/5 mL Take 5-10 mL by mouth every 4 (four) hours as needed for cough. 120 mL 11/16/2018 9 amoxicillin-clavul anate (AUGMENTIN) 875-125 mg per tablet Take 1 tablet by mouth 2 (two) times a day for 10 days. 20 tablet 11/16/2018 9 documented in this encounter Progress Notes * Emelia Yang, TANK WASHER - 11/16/2018 4:00 PM CST Images from the original note were not included. Chief Complaint Patient presents with ??? URI x 1 month HPI Subjective 53 y/o female here with c/o's of upper respiratory symptoms that started about a month ago. She states that she has congestion and a cough that has gradually worsened over the last month. She is having some pressure of the sinuses. She has a cough and thick phlegm. Nasal secretions are colored. Current Outpatient Prescriptions Medication ??? amLODIPine (NORVASC) 5 mg tablet ??? aspirin 81 mg tablet ??? cloNIDine (CATAPRES) 0.1 mg tablet ??? estrogens, conjugated, (PREMARIN) 0.625 mg tablet ??? fluticasone-salmeterol (ADVAIR DISKUS) 500-50 mcg/dose diskus inhaler ??? glipiZIDE (GLUCOTROL) 5 mg tablet ??? lisinopril-hydroCHLOROthiazide (PRINZIDE,ZESTORETIC) 20-12.5 mg per tablet ??? meloxicam (MOBIC) 15 mg tablet ??? amoxicillin-clavulanate (AUGMENTIN) 875-125 mg per tablet ??? cloNIDine (CATAPRES) 0.1 mg tablet ??? fluconazole (DIFLUCAN) 150 mg tablet ??? guaiFENesin-codeine (GUAITUSS AC) liquid 100-10 mg/5 mL No current facility-administered medications for this visit. Past Medical History: Diagnosis Date ??? Asthma ??? Diabetes mellitus (CMS/HCC) Social History Social History Main Topics ??? Smoking status: Never Smoker ??? Smokeless tobacco: Never Used ??? Alcohol use No ??? Drug use: Unknown Social History ??? Marital status: BP 128/79 (BP Location: Left arm, Patient Position: Sitting) Pulse 83 Temp 37.1 ??C (98.7 ??F) (Oral) Ht 154.9 cm (5' 1 ) Wt 108.3 kg (238 lb 11.2 oz) SpO2 96% BMI 45.10 kg/m?? Review of Systems Constitutional: Negative for chills, fever, malaise/fatigue and weight loss. HENT: Positive for congestion and sinus pain. Negative for ear discharge, ear pain and sore throat. Eyes: Negative for blurred vision, double vision, pain and discharge. Respiratory: Positive for cough. Negative for sputum production. Cardiovascular: Negative for chest pain. Gastrointestinal: Negative for heartburn, nausea and vomiting. Genitourinary: Negative for dysuria. Skin: Negative for rash. Neurological: Negative for dizziness, weakness and headaches. Objective Physical Exam Constitutional: She is oriented to person, place, and time. She appears well- developed and well-nourished. No distress. HENT: Head: Normocephalic. Right Ear: Tympanic membrane, external ear and ear canal normal. Left Ear: Tympanic membrane, external ear and ear canal normal. Nose: Mucosal edema, rhinorrhea and sinus tenderness present. Right sinus exhibits frontal sinus tenderness. Left sinus exhibits frontal sinus tenderness. Mouth/Throat: Oropharynx is clear and moist and mucous membranes are normal. No oral lesions. No oropharyngeal exudate or tonsillar abscesses. No tonsillar exudate. Eyes: Conjunctivae are normal. Neck: Neck supple. No tracheal deviation present. No thyromegaly present. Cardiovascular: Normal rate, regular rhythm and normal heart sounds. Exam reveals no friction rub. No murmur heard. Pulmonary/Chest: Effort normal and breath sounds normal. No respiratory distress. She has no wheezes. She has no rales. Musculoskeletal: She exhibits no edema. Lymphadenopathy: She has no cervical adenopathy. Neurological: She is alert and oriented to person, place, and time. Skin: Skin is warm and dry. Diagnoses and all orders for this visit: Acute non-recurrent maxillary sinusitis (Primary) Other orders - amoxicillin-clavulanate (AUGMENTIN) 875-125 mg per tablet; Take 1 tablet by mouth 2 (two) times a day for 10 days. - guaiFENesin-codeine (GUAITUSS AC) liquid 100-10 mg/5 mL; Take 5-10 mL by mouth every 4 (four) hours as needed for cough. - fluconazole (DIFLUCAN) 150 mg tablet; Take 1 tablet (150 mg total) by mouth as directed. Take onetab now. Repeat in 7 days if symptoms persist. 1. Claritin D 2. Augmentin 3. Nasal saline rinses as needed for congestion. 4. Follow-up in 5-7 days - if symptoms worsen or persist Chart testing for cough Pt voiced understanding of plan of care and f/u Return for as needed. Emelia Yang NP Cosigned by Polina Rajput MD at 11/18/2018 2:38 PM HEAT TREATING BLUER TREATING BLUER TREATING BLUER documented in this encounter Plan of Treatment Not on file documented as of this encounter Visit Diagnoses Diagnosis Acute non-recurrent maxillary sinusitis- Primary documented in this encounter Discontinued Medications Medication Sig Discontinue Reason Start Date End Da te mometasone (ELOCON) 0.1 % ointment Apply topically daily. 05/05/2018 11/16/2018 documented as of this encounter Historical Medications * This list may reflect changes made after this encounter. Medication Sig Dispense Quantity Refills Last Filled Start D ate End Date cloNIDine (CATAPRES) 0.1 mg tablet 11/06/2018 02/13/2019 added in this encounter Care Teams Master At Arms Relationship Specialty Start Date End Date Polina Rajput MD PCP - General 01/22/17 05/14/19 documented as of this encounter
--- OUTSIDE RECORDS SUMMARY | 2024-10-23 02:11 | XMS_ITS | Encounter Summary ---
Author Organization [facility] Healthcare Address [address] [place] [address] Care Team Providers Care Manager Combination Name Role Phone Polina Rajput MD Primary Care Provider Encounter Details Date Type Department Care Team (Late st Contact Info) Description 04/20/2018 10:15 AM CDT [facility] [address] [place], [place] Polina Rajput MD [address] [facility] [address] [place], [place] [id number] Type 2 diabetes mellitus with hyperglycemia, unspecified whether continuous churn buttermaker insulin use (CMS/[facility]) Discharge Disposition: Discharge to home or self care Social History Tobacco Use Types Packs/Day Years Used Date Smoking Tobacco: Never Smokeless Tobacco: Never Alcohol Use Standard Drinks/Week Comments No 0 (1 standard drink = 0.6 oz pur e alcohol) Comments No Sex and Gender Information Value Date Recorded Sex Assigned at Not on file 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 Gender Identity Not on file Sexual Orientation Not on file documented as of this encounter Discharge Disposition Disposition Code Departure Means Destination Discharge to home or self care documented in this encounter Plan of Treatment Not on file documented as of this encounter Procedures Procedure Name Priority Date/Time Associated Diagnosis Comments EGFR Routine 04/20/2018 10:14 AM CDT Type 2 diabetes mellitus with hyperglycemia, unspecified whether alf insulin use (CMS/[facility]) DIFFERENTIAL AUTO Routine 04/20/2018 10: 14 AM CDT Type 2 diabetes mellitus with hyperglycemia, unspecified whether continuous churn buttermaker insulin use (CMS/HCC) THYROID FUNCTION CASCADE Routine 04/20/2018 10:14 AM CDT Type 2 diabetes mellitus with hyperglycemia, unspecified whether alf insulin use (CMS/HCC) CBC WITH AUTO DIFFERENTIAL Routine 04/20/2018 10:14 AM CDT Type 2 diabetes mellitus with hyperglycemia, unspecified whether alf insulin use (CMS/[facility]) HEMOGLOBIN A1C Routine 04/20/2018 10:14 AM CDT Type 2 diabetes mellitus with hyperglycemia, unspecified whether continuous churn buttermaker insulin use (CMS/HCC) LIPID PANEL Routine 04/20/2018 10:14 AM CDT Type 2 diabetes mellitus with hyperglycemia, unspecified whether continuous churn buttermaker insulin use (CMS/HCC) COMPREHENSIVE METABOLIC PANEL Routine 04/20/2018 10:14 AM CDT Type 2 diabetes mellitus with hyperglycemia, unspecified whether alf insulin use (CMS/HCC) documented in this encounter Results * eGFR (04/20/2018 10:14 AM CDT) [facility] eGFR >60 mL/min/1.7 3 m2 [facility] ([place]) Comment: Interpretive Data Reference Interval Normal ?>/= 90 mL/min/1.73m2 Mildly decreased* ? 60 - 89 mL/min/1.73m2 Mildly to moderately decreased ?45 - 59 mL/min/1.73m2 Moderately to severely decreased ??30 - 44 mL/min/1.73m2 Severely decreased ?15 - 29 mL/min/1.73m2 Kidney Failure ?< 15 ??mL/min/1.73m2 *Relative to young adult level If -Greek multiply value by 1.16. Estimated glomerular filtration [...] was last reviewed 2016. Blood specimen (specimen) 04/20/2018 10:14 AM CDT 04/20/2018 2:15 PM CDT Narrative [facility] ([place]) - 04/20/2018 2:56 PM CDT Polina Rajput MD LAB BLOOD ORDERABLES F inal Result [facility] ([place]) [address] [facility] [place] [address] * Differential, auto (04/20/2018 10:14 AM CDT) Neutrophil abs 3.6 1.7 - 6.5 K/cumm [facility] ([place]) Imm gran abs 0.0 0.0 - 0.1 K/cumm [facility] ([place]) Lymphocyte abs 1.8 0.8 - 3.3 K/cumm [facility] ([place]) Monocyte abs 0.5 0.2 - 0.8 K/cumm [facility] ([place]) Eosinophil abs 0.0 0.0 - 0.5 K/cumm [facility] ([place]) Basophil abs 0.0 0.0 - 0.1 K/cumm [facility] ([place]) Neutrophil pct 60.6 % [facility] ([place]) Comment: Interpretive Data Percent cell count reference ranges are not reported, since discordance with absolute values may lead to misinterpretation of CBC data. Current Interpretive Data was last revised on 2018. Imm gran pct 0.3 % [facility] ([place]) Comment: Interpretive Data Percent cell count reference ranges are not reported, since discordance with absolute values may lead to misinterpretation of CBC data. Current Interpretive Data was last revised on 2018. Lymphocyte pct 30.5 % [facility] ([place]) Comment: Interpretive Data Percent cell count reference ranges are not reported, since discordance with absolute values may lead to misinterpretation of CBC data. Current Interpretive Data was last revised on 2018. Monocyte pct 8.3 % [facility] ([place]) Comment: Interpretive Data Percent cell count reference ranges are not reported, since discordance with absolute values may lead to misinterpretation of CBC data. Current Interpretive Data was last revised on 2018. Eosinophil pct 0.0 % [facility] ([place]) Comment: Interpretive Data Percent cell count reference ranges are not reported, since discordance with absolute values may lead to misinterpretation of CBC data. Current Interpretive Data was last revised on 2018. Basophil pct 0.3 % [facility] ([place]) Comment: Interpretive Data Percent cell count reference ranges are not reported, since discordance with absolute values may lead to misinterpretation of CBC data. Current Interpretive Data was last revised on 2018. Blood specimen (specimen) 04/20/2018 10:14 AM CDT 04/20/2018 2:15 PM CDT Narrative [facility] ([place]) - 04/20/2018 2:35 PM CDT Polina Rajput MD LAB BLOOD ORDERABLES F inal Result [facility] ([place]) [address] [facility] [place] [address] * Lipid panel (04/20/2018 10:14 AM CDT) Cholesterol 196 40 - 199 mg/dL [facility] ([place]) Comment: Interpretive Data Desirable: ??Less than 200 mg/dl ? Borderline High: ?200 - 239 mg/dl ? High: ??Greater than ?? 239 mg/dl Current interpretive data was last revised on 2014. Triglycerides 94.0 <=150.0 mg/dL [facility] ([place]) Comment: Interpretive Data Normal: ? Less than 150 mg/dl Borderline high: ??150-199 mg/dl ?? High: ? 200-499 mg/dl ? Very high: ??Greater than or equal to 500 mg/dl Current interpretive data was last revised on 2017. HDL 56 40 - 60 mg/dL [facility] ([place]) Comment: Interpretive Data Low HDL Cholesterol: ? Less than 40 mg/dl Normal HDL Cholesterol: ??40-60 mg/dl High HDL Cholesterol: ?Greater than 60 mg/dl Current interpretive data was last revised on 2014. LDL, calculated 121 mg/dL [facility] ([place]) Comment: Interpretive Data Optimal ? Less [...] revised on 2014. Non-HDL Cholesterol 140 mg/dL [facility] ([place]) Comment: Interpretive Data Optimal ? Less than 130 mg/dL Low Risk ?130 - 159 mg/dL Moderate Risk ? 160 - 189 mg/dL High Risk ? Greater than or equal to 190 mg/dL Current interpretive data was last revised on 2014. Blood specimen (specimen) 04/20/2018 10:14 AM CDT 04/20/2018 2:15 PM CDT Narrative [facility] ([place]) - 04/20/2018 2:56 PM CDT Has the patient been fasting for 8 hours or more?->Yes Has the patient fasted?->Yes Polina Rajput MD LAB BLOOD ORDERABLES F inal Result [facility] ([place]) 1 [facility] Department [place] [address] * (ABNORMAL) CBC with auto differential (04/20/2018 10:14 AM CDT) WBC 6.0 3.8 - 9.9 K/cumm [facility] ([place]) RBC 5.08 3.90 - 5.20 M/cumm [facility] ([place]) Hgb 13.2 11.9 - 15.5 g/dL [facility] ([place]) Hct 41.3 35.6 - 45.5 % [facility] ([place]) MCV 81.3 81.3 - 96.4 fL [facility] ([place]) MCH 26.0(L) 27.1 - 33.3 pg [facility] ([place]) MCHC 32.0(L) 32.3 - 35.7 g/dL [facility] ([place]) RDW CV 13.5 11.1 - 14.9 % [facility] ([place]) RDW SD 39.6 35.7 - 48.1 fL [facility] ([place]) Plt 303 150 - 400 K/cumm [facility] ([place]) MPV 10.8 9.1 - 12.3 fL [facility] ([place]) NRBC abs 0.00 0.00 - 0.01 K/cumm [facility] ([place]) Blood specimen (specimen) 04/20/2018 10:14 AM CDT 04/20/2018 2:15 PM CDT Narrative [facility] ([place]) - 04/20/2018 2:35 PM CDT Polina Rajput MD LAB BLOOD ORDERABLES F inal Result Performing Organization Address City/[facility]/ZIP Co de Phone Number [facility] ([place]) 1 [facility] [place] [address] * TSH reflex to free T4 (04/20/2018 10:14 AM CDT) TSH 1.69 0.30 - 5.00 mcIUnit/mL [facility] ([place]) Blood specimen (specimen) 04/20/2018 10:14 AM CDT 04/20/2018 2:15 PM CDT Narrative [facility] ([place]) - 04/20/2018 2:59 PM CDT Polina Rajput MD LAB BLOOD ORDERABLES F inal Result Performing Organization Address [facility] de Phone Number [facility] ([place]) [address] [place] [address] * (ABNORMAL) Hemoglobin A1c (04/20/2018 10:14 AM CDT) Hgb A1C 7.3(H) 4.0 - 5.6 % [facility] ([place]) Estimated Average Glucose 163 mg/dL [facility] ([place]) Comment: The ADA recommends reporting an estimated Average Glucose (eAG) with all Hemoglobin A1c results using the equation derived from a study of 507 normal and diabetic adults. ??Minority populations were underrepresented and children were not included. ?? (Diabetes Care 31:2521-5535, 2008). ??The eAG is not equivalent to a fasting glucose. Blood specimen (specimen) 04/20/2018 10:14 AM CDT 04/20/2018 2:15 PM CDT Narrative [facility] ([place]) - 04/20/2018 2:56 PM CDT Fishedvin Schaefer Atiya العلي LAB BLOOD ORDERABLES F inal Result [facility] ([place]) 1 [facility] [place] [address] * (ABNORMAL) Comprehensive metabolic panel (04/20/2018 10:14 AM CDT) Sodium 139 135 - 145 mmol/L [facility] ([place]) Potassium, pl 3.7 3.3 - 4.9 mmol/L [facility] ([place]) CO2 28 22 - 32 mmol/L [facility] ([place]) BUN 11 8 - 25 mg/dL [facility] ([place]) Glucose 73 70 - 199 mg/dL [facility] ([place]) [...] interpretive data was last revised 2017. Creatinine 0.55(L) 0.60 - 1.10 mg/dL [facility] ([place]) Calcium 9.1 8.5 - 10.3 mg/dL [facility] ([place]) Chloride 98 97 - 110 mmol/L [facility] ([place]) Albumin 3.6 3.5 - 5.0 g/dL [facility] ([place]) AST 28 10 - 45 Units/L [facility] ([place]) ALT 19 7 - 45 Units/L [facility] ([place]) Alk phos 97 40 - 130 Units/L [facility] ([place]) Bilirubin, total 0.4 0.1 - 1.2 mg/dL [facility] ([place]) Protein, pl 7.6 6.5 - 8.5 g/dL [facility] ([place]) Anion gap 13 2 - 15 mmol/L [facility] ([place]) Blood specimen (specimen) 04/20/2018 10:14 AM CDT 04/20/2018 2:15 PM CDT Narrative [facility] ([place]) - 04/20/2018 2:56 PM CDT Polina Rajput MD LAB BLOOD ORDERABLES F inal Result [facility] ([place]) 1 [facility] [place] [address] documented in this encounter Visit Diagnoses Diagnosis Type 2 diabetes mellitus with hyperglycemia, unspecified whether alf insulin use (HCC) documented in this encounter Care Teams Manager Combination Relationship Specialty Start Date End Date Polina Rajput MD PCP - General 01/22/17 05/14/19 documented as of this encounter
--- OUTSIDE RECORDS SUMMARY | 2024-10-23 02:11 | XMS_ITS | Encounter Summary ---
Author Organization [facility] Medical Group Address [address] [place] [address] Care Team Providers Care Hand Coremaker Name Role Phone Polina Rajput MD Primary Care Provider Encounter Details Date Type Department Care Team (Late st Contact Info) Description 05/04/2018 Orders Only [facility] [address] [place] [address] Polina Rajput MD [address] [facility] [address] [place] [address] Social History Tobacco Use Types Packs/Day Years Used Date Smoking Tobacco: Never Smokeless Tobacco: Never Alcohol Use Standard Drinks/Week Comments No 0 (1 standard drink = 0.6 oz pur e alcohol) Comments No Sex and Gender Information Value Date Recorded Sex Assigned at Not on file 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 45 g 05/04/2018 8 documented in this encounter Plan of Treatment Not on file documented as of this encounter Visit Diagnoses Not on filedocumented in this encounter Care Teams Hand Coremaker Relationship Specialty Start Date End Date Polina Rajput MD PCP - General 01/22/17 05/14/19 documented as of this encounter
--- OUTSIDE RECORDS SUMMARY | 2024-10-23 02:11 | XMS_ITS | Encounter Summary ---
Author Organization [facility] Medical [facility] Address [address] [facility] [address] [place] [address] Care Team Providers Care Radio Despatcher Name Role Phone Polina Rajput MD Primary Care Provider Encounter Details Date Type Department Care Team (Late st Contact Info) Description 03/18/2017 Orders Only [facility] [address] [place] [address] Polina Rajput MD [address] [facility] [address] [place] [address] Social History Tobacco Use Types Packs/Day Years Used Date Smoking Tobacco: Never Alcohol Use Standard Drinks/Week Comments No 0 (1 standard drink = 0.6 oz pur e alcohol) Comments Unknown Sex and Gender Information Value Date Recorded Sex Assigned at Not on file 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 60 - 89 mL/min/1.73m2 Mildly to moderately decreased ?45 - 59 mL/min/1.73m2 Moderately to severely decreased ??30 - 44 mL/min/1.73m2 Severely decreased ?15 - 29 mL/min/1.73m2 Kidney Failure ?< 15 ??mL/min/1.73m2 *Relative to young adult level If -Macanese multiply value by 1.16. Estimated glomerular filtration [...] was last reviewed 2016. Blood specimen (specimen) 03/18/2017 8:33 AM CDT 03/18/2017 11:41 AM CDT Polina Rajput MD LAB BLOOD ORDERABLES F inal Result Performing Organization Address City/State/[facility] Phone Number [facility] [address] [facility] Department [place] [address] documented in this encounter Visit Diagnoses Not on filedocumented in this encounter Care Teams Radio Despatcher Relationship Specialty Start Date End Date Polina Rajput MD PCP - General 01/22/17 05/14/19 documented as of this encounter
--- OUTSIDE RECORDS SUMMARY | 2024-10-23 02:11 | XMS_ITS | Encounter Summary ---
Author Organization [facility] Medical Group Address [address] [place] [address] Care Team Providers Care Soda Dry House Operator Name Role Phone Polina Rajput MD Primary Care Provider Reason for Visit * Reason Comments Follow-up Encounter Details Date Type Department Care Team (Late st Contact Info) Description 04/18/2018 4:00 PM CDT Office Visit [facility] of [address] [place] [address] Polina Rajput MD [facility] [address] [address] Type 2 diabetes mellitus with hyperglycemia, unspecified 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 Gender Identity Not on file Sexual Orientation Not on file documented as of this encounter Last Filed Vital Signs Vital Sign Reading Time Taken Comments Blood Pressure - - Pulse 86 04/18/2018 4:00 PM CDT Temperature - - Respiratory Rate - - Oxygen Saturation 95% 04/18/2018 4:00 PM CDT Inhaled Oxygen Concentration - - Weight 103.9 kg (229 lb) 04/18/2018 4:00 PM CDT Height 154.9 cm (5' 1 ) 04/18/2018 4:00 PM CDT Body Mass Index 43.27 04/18/2018 4:00 PM CDT documented in this encounter Ordered Prescriptions Prescription Sig Dispense Quantity Refills Last Filled Start Date End Date fluconazole (DIFLUCAN) 150 mg tablet Take 1 tablet (150 mg total) by mouth as directed. Take one tab now. Repeat in 7 days if symptoms persist. 2 tablet 04/18/2018 8 fluconazole (DIFLUCAN) 150 mg tablet Take 1 tablet (150 mg total) by mouth as directed. Take one tab now. Repeat in 7 days if symptoms persist. 2 tablet 04/18/2018 8 cloNIDine (CATAPRES) 0.1 mg tablet Take 1 tablet (0.1 mg total) by mouth 2 (two) times a day. 60 tablet 5 04/18/2018 9 documented in this encounter Progress Notes * Polina Rajput MD - 04/18/2018 4:00 PM CDT Subjective/Objective Patient ID: Rosa Babb is a 52 y.o. female. Chief Complaint Follow-up HPI she is here for follow-up of her chronic conditions. She admits that she has had a difficult time in the past 5 months that she has been caring for her mother who recently just 5 weeks ago. She has not been taking her diabetic medication. She has been having discomfort in the back of her head, frequent urination difficulty falling asleep and maintaining sleep. Also having itchy dry skin. She also is having trouble in her vaginal region of what she thinks may be a yeast infection. Associated symptoms include polyuria and fatigue. No other associated symptoms or modifying factors. Review of Systems Constitutional: Positive for fatigue. Negative for activity change, appetite change, chills and fever. Cardiovascular: Negative for chest pain and leg swelling. Gastrointestinal: Negative for abdominal pain. Musculoskeletal: Negative for arthralgias. Hematological: Negative for adenopathy. Does not bruise/bleed easily. Psychiatric/Behavioral: Negative for behavioral problems. Physical Exam Constitutional: She appears well-developed and well-nourished. No distress. HENT: Head: Atraumatic. Eyes: EOM are normal. Left eye exhibits no discharge. Neck: Neck supple. Cardiovascular: Normal rate and regular rhythm. Pulmonary/Chest: Effort normal and breath sounds normal. No respiratory distress. She has no wheezes. She has no rales. She exhibits no tenderness. Abdominal: Soft. Bowel sounds are normal. She exhibits no distension. There is no tenderness. Musculoskeletal: Normal range of motion. She exhibits no edema. Neurological: She is alert. Psychiatric: She has a normal mood and affect. Her behavior is normal. Assessment/Plan Diagnoses and all orders for this visit: Type 2 diabetes mellitus with hyperglycemia, unspecified whether senior care insulin use ([facility]) (Primary) - Comprehensive metabolic panel; Future - Hemoglobin A1c; Future - TSH reflex to free T4; Future - CBC with auto differential; Future - Lipid panel; Future Other orders - cloNIDine (CATAPRES) 0.1 mg tablet; Take 1 tablet (0.1 mg total) by mouth 2 (two) times a day. - fluconazole (DIFLUCAN) 150 mg tablet; Take 1 tablet (150 mg total) by mouth as directed. Take onetab now. Repeat in 7 days if symptoms persist. documented in this encounter Plan of Treatment Not on file documented as of this encounter Results * Lipid panel (04/20/2018 10:14 AM CDT) [facility] Signature Cholesterol 196 40 - 199 mg/dL JEFE [...] 2014. Non-HDL Cholesterol 140 mg/dL JEFE FOX (BERTA) Comment: Interpretive Data Optimal ? Less than 130 mg/dL Low Risk ?130 - 159 mg/dL Moderate Risk ? 160 - 189 mg/dL High Risk ? Greater than or equal to 190 mg/dL Current interpretive data was last revised on 2014. Blood specimen (specimen) 04/20/2018 10:14 AM CDT 04/20/2018 2:15 PM CDT Narrative JEFE FOX (BERTA) - 04/20/2018 2:56 PM CDT Has the patient been fasting for 8 hours or more?->Yes Has the patient fasted?->Yes us Polina Rajput MD LAB BLOOD ORDERABLES F inal Result [facility] (BERTA) 1 [facility] Department [place] [address] * (ABNORMAL) CBC with auto differential (04/20/2018 [...] 10.8 9.1 - 12.3 fL [facility] (BERTA) NRBC abs 0.00 0.00 - 0.01 K/cumm [facility] (BERTA) Blood specimen (specimen) 04/20/2018 10:14 AM CDT 04/20/2018 2:15 PM CDT Narrative [facility] (BERTA) - 04/20/2018 2:35 PM CDT Polina Rajput MD LAB BLOOD ORDERABLES F inal Result [facility] (BERTA) 1 [place] [address] * TSH reflex to free T4 (04/20/2018 10:14 AM CDT) Pathologist [facility] TSH 1.69 0.30 - 5.00 mcIUnit/mL JEFE FOX (KATHRYN) Blood specimen (specimen) 04/20/2018 10:14 AM CDT 04/20/2018 2:15 PM CDT Narrative JEFE FOX (KATHRYN) - 04/20/2018 2:59 PM CDT Polina Rajput MD LAB BLOOD ORDERABLES F inal Result Performing Organization Address [facility]/ZIP Co de Phone Number JEFE FOX (KATHRYN) 1 [place] [address] * (ABNORMAL) Hemoglobin A1c (04/20/2018 10:14 AM CDT) Pathologist [facility] Hgb A1C 7.3(H) 4.0 - 5.6 % JEFE FOX (KATHRYN) Estimated Average Glucose 163 mg/dL JEFE [facility] (KATHRYN) Comment: The ADA recommends reporting an estimated Average Glucose (eAG) with all Hemoglobin A1c results using the equation derived from a study of 507 normal and diabetic adults. ??Minority populations were underrepresented and children were not included. ?? (Diabetes Care 31:8453-9501, 2008). ??The eAG is not equivalent to a fasting glucose. Blood specimen (specimen) 04/20/2018 10:14 AM CDT 04/20/2018 2:15 PM CDT Narrative JEFE FOX (BERTA) - 04/20/2018 2:56 PM CDT Polina Rajput MD LAB BLOOD ORDERABLES F inal Result Performing Organization Address [facility]/ZIP Co de Phone Number JFEE FOX (KATHRYN) 1 [place] [address] * (ABNORMAL) Comprehensive metabolic panel (04/20/2018 10:14 [...] BLOOD ORDERABLES F inal Result JEFE FOX (KATHRYN) 1 [facility] Department [place] [address] documented in this encounter Visit Diagnoses Diagnosis Type 2 diabetes mellitus with hyperglycemia, unspecified 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 Take one tab now. Repeat in 7 days if symptoms persist. Reorder 04/18/2018 04/18/2018 documented as of this encounter Care Teams Soda Dry House Operator Relationship Specialty Start Date End Date Polina Rajput MD PCP - General 01/22/17 05/14/19 documented as of this encounter
--- OUTSIDE RECORDS SUMMARY | 2024-10-23 02:11 | XMS_ITS | Encounter Summary ---
Author Organization [facility] Medical Group Address [address] [place] [address] Care Team Providers Care Edge Grinder Name Role Phone Polina Rajput MD Primary Care Provider Encounter Details Date Type Department Care Team (Late st Contact Info) Description 06/30/2018 Orders Only [facility] of [address] [place] [address] Polina Rajput MD [address] [facility] [address] [place] [address] Social History Tobacco Use Types Packs/Day Years Used Date Smoking Tobacco: Never Smokeless Tobacco: Never Alcohol Use Standard Drinks/Week Comments No 0 (1 standard drink = 0.6 oz pur e alcohol) Comments No Sex and Gender Information Value Date Recorded Sex Assigned at Not on file 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 Take daily for 21 days then do not take for 7 days. 90 tablet 2 06/30/2018 06/30/2018 documented in this encounter Plan of Treatment Not on file documented as of this encounter Visit Diagnoses Not on filedocumented in this encounter Discontinued Medications Medication Sig Discontinue Reason Start Date End Da te estrogens, conjugated, (PREMARIN) 0.625 mg tabletIndications:Vasomo tor Symptoms associated with Menopause Take 1 tablet (0.625 mg total) by mouth daily. Take daily for 21 days then do not take for 7 days. Reorder 06/13/2018 06/30/2018 documented as of this encounter Care Teams Edge Grinder Relationship Specialty Start Date End Date Polina Rajput MD PCP - General 01/22/17 05/14/19 documented as of this encounter
--- OUTSIDE RECORDS SUMMARY | 2024-10-23 02:11 | XMS_ITS | Encounter Summary ---
Author Organization [facility] Healthcare Address [address] [place] [address] Care Team Providers Care Emerging Technologies Director Name Role Phone Polina Rajput MD Primary Care Provider Encounter Details Date Type Department Care Team (Late st Contact Info) Description 11/11/2015 11:24 AM TIRE CHANGER - 11/11/2015 11:59 PM [facility] Hospital Encounter CH CLINCONV Polina Rajput MD [address] [facility] [address] [place] [address] Essential (primary) hypertension; Type 2 diabetes mellitus without complications (CMS/HCC); 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 (CMS/HCC) Social History Tobacco Use Types Packs/Day Years Used Date Smoking Tobacco: Never Alcohol Use Standard Drinks/Week Comments No 0 (1 standard drink = 0.6 oz pur e alcohol) Comments Unknown Sex and Gender Information Value Date Recorded Sex Assigned at Not on file Legal Sex Female 8:35 AM TIRE CHANGER Gender Identity Not on file Sexual Orientation [...] Procedure Name Priority Date/Time Associated Diagnosis Comments URINE MICROALBUMIN Routine 11/11/2015 11 :28 AM TIRE CHANGER PLASMA THYROID-STIMULATING HORMONE (TSH) Routine 11/11/2015 11:28 AM TIRE CHANGER PLASMA LIPID PANEL Routine 11/11/2015 11 :28 AM TIRE CHANGER PLASMA COMPREHENSIVE METABOLIC PANEL Routine 11/11/2015 11:28 AM TIRE CHANGER BLOOD HEMOGLOBIN A1C Routine 11/11/2015 5:28 AM TIRE CHANGER DISCHARGE LABORATORY CUMULATIVE REPORT 11/11/2015 documented in this encounter Results * Urine microalbumin (11/11/2015 11:28 AM TIRE CHANGER) Creatinine, ur 116 20 - 300 mg/dl HISTORICAL RESULTS Microalbumin 7.0 0.0 - 29.9 mcg/ml HISTORICAL RESULTS Microalbumin/crea t ratio 6 0 - 30 mcg/mg Cr HISTORICAL RESULTS Comment: Microalbumin/Creatinine Ratio Reference Ranges: Normal: ? < 30 mcg/mg Microalbuminuria: ? 30 - 300 mcg/mg Clinical Albuminuria: ??300 mcg/mg Urine 11/11/2015 11:2 8 AM TIRE CHANGER us Polina Rajput MD LAB BLOOD ORDERABLES F inal Result HISTORICAL RESULTS * (ABNORMAL) Plasma comprehensive metabolic panel (11/11/2015 11:28 AM TIRE CHANGER) BUN 7(L) 8 - 24 mg/dl HISTORICAL RESULTS Glucose 86 70 - 199 mg/dl HISTORICAL RESULTS Sodium 138 135 - 145 mmol/L HISTORICAL RESULTS K, pl 4.2 3.5 - 5.1 mmol/L HISTORICAL RESULTS Chloride 103 100 - 114 mmol/L HISTORICAL RESULTS CO2 29 22 - 32 mmol/L HISTORICAL RESULTS Creatinine 0.81 0.60 - 1.30 mg/dl HISTORICAL RESULTS AST 19 7 - 40 Units/L HISTORICAL RESULTS ALT 23 1 - 45 Units/L HISTORICAL RESULTS Alk phos 87 30 - 110 Units/L HISTORICAL RESULTS Calcium 9.6 8.4 - 10.5 mg/dl HISTORICAL RESULTS Bilirubin 0.10 0.10 - 1.30 mg/dl HISTORICAL RESULTS Protein, pl 7.2 6.0 - 8.3 g/dl HISTORICAL RESULTS Alb 3.6 3.2 - 4.8 g/dl HISTORICAL RESULTS Globulin 3.6 2.0 - 4.3 g/dl HISTORICAL RESULTS A. gap 10 8 - 16 mmol/L HISTORICAL RESULTS eGFR 74 90 - 200 ml/min/1.7 3 m2 HISTORICAL RESULTS Comment: If this individual is -Maced[place], multiply result by 1.21 Repeated results of less than 60 is indicative of chronic kidney disease. MDRD formula has not been validated on individuals greater than 70 years old. Plasma 11/11/2015 11:2 8 AM TIRE CHANGER Polina Rajput MD LAB BLOOD ORDERABLES F inal Result HISTORICAL RESULTS * Plasma lipid panel (11/11/2015 11:28 AM TIRE CHANGER) Cholesterol 198 100 - 200 mg/dl HISTORICAL RESULTS Triglycerides 136 10 - 150 mg/dl HISTORICAL RESULTS HDL 49 40 - 59 mg/dl HISTORICAL RESULTS LDL 122 60 - 129 mg/dl HISTORICAL RESULTS Plasma 11/11/2015 11:2 8 AM TIRE CHANGER Polina Rajput MD LAB BLOOD ORDERABLES F inal Result Performing Organization Address [facility] de Phone Number HISTORICAL RESULTS * Plasma thyroid-stimulating hormone (TSH) (11/11/2015 11:28 AM TIRE CHANGER) TSH 1.60 0.34 - 5.60 mcIUnits/ml HISTORICAL RESULTS Plasma 11/11/2015 11:2 8 AM TIRE CHANGER Polina Rajput MD LAB BLOOD ORDERABLES F inal Result Performing Organization Address [facility] de Phone Number HISTORICAL RESULTS * (ABNORMAL) Blood hemoglobin A1C (11/11/2015 5:28 AM TIRE CHANGER) Hgb A1C 7.3(H) 4.0 - 6.0 % HISTORICAL RESULTS Comment: Hemoglobin A1c ADA Interpretive Guidelines: ?<7% ?? Glycemia controlled ?>8% ?? Hyperglycemia, additional action recommended ?Shree Immunochemical Method Blood specimen (specimen) 11/11/2015 5:28 AM TIRE CHANGER Narrative HISTORICAL RESULTS - 11/11/2015 1:09 PM TIRE CHANGER Test performed at [address], [facility]. Polina Rajput MD LAB BLOOD ORDERABLES F inal Result Performing Organization Address [facility] de Phone Number HISTORICAL RESULTS * DISCHARGE LABORATORY CUMULATIVE REPORT (11/11/2015) Narrative 11/11/2015 Ordered by an unspecified provider. 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
--- OUTSIDE RECORDS SUMMARY | 2024-10-23 02:11 | XMS_ITS | Encounter Summary ---
Author Organization [facility] Medical Group Address [address] [place] [address] Care Team Providers Care Five Roll Refiner Batch Mixer Name Role Phone Polina Rajput MD Primary Care Provider Encounter Details Date Type Department Care Team (Late st Contact Info) Description 04/25/2018 Telephone [facility] of [address] [place] [address] Polina Rajput MD [address] [address] Social History Tobacco Use Types Packs/Day Years Used Date Smoking Tobacco: Never Smokeless Tobacco: Never Alcohol Use Standard Drinks/Week Comments No 0 (1 standard drink = 0.6 oz pur e alcohol) Comments No Sex and Gender Information Value Date Recorded Sex Assigned at Not on file Legal Sex Female 8:35 AM SENIOR 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 Will send in another round for patient. Thanks. * Telephone Encounter - Nickie Montalvo MA - 04/25/2018 3:37 PM CDT Pt notified and said she took a round of 2, So she would like another round, She also states she has plenty of the glipizide and had already started it. * Telephone Encounter - Polina Rajput MD - 04/25/2018 3:18 PM CDT Did she do one pill and repeat a second dose or just the one pill? If just the one pill, I would have her repeat a second dosage. I can send to her preferred pharmacy. Also, blood work shows that hemoglobin a1c is elevated but not high enough to need insulin. I can restart her back on her oral medication for the diabetes. Does she still have some? If yes, start back the glipizide at one tablet daily. If not, I will call in to her pharmacy. Thanks. * Telephone Encounter - Nickie Montalvo MA - 04/25/2018 2:19 PM CDT Pt called and stated the antibiotics for the yeast infection did not work. documented in this encounter Plan of Treatment Not on file documented as of this encounter Visit Diagnoses Not on filedocumented in this encounter Care Teams Five Roll Refiner Batch Mixer Relationship Specialty Start Date End Date Polina Rajput MD PCP - General 01/22/17 05/14/19 documented as of this encounter
--- OUTSIDE RECORDS SUMMARY | 2024-10-23 02:11 | XMS_ITS | Encounter Summary ---
Author Organization [facility] Medical Group Address [address] [place] [address] Care Team Providers Care Hospitalist Program Director Name Role Phone Polina Rajput MD Primary Care Provider Encounter Details Date Type Department Care Team (Late st Contact Info) Description 03/18/2017 Orders Only [facility] of [address] [place] [address] Polina Rajput MD [address] [facility] [address] [place] [address] Social History Tobacco Use Types Packs/Day Years Used Date Smoking Tobacco: Never Alcohol Use Standard Drinks/Week Comments No 0 (1 standard drink = 0.6 oz pur e alcohol) Comments Unknown Sex and Gender Information Value Date Recorded Sex Assigned at Not on file Legal Sex Female 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 Glycemia controlled ??>8% ?? Hyperglycemia, additional action recommended Shree Immunochemical Method Current interpretive data was last revised on 2016 Testing performed by: [facility], [place] [address] Estimated Average Glucose 163 mg/dL JEFE LOVELL Comment:Testing performed by : [facility], [place] [address] Blood specimen (specimen) 03/18/2017 8:33 AM CDT 03/18/2017 6:50 PM CDT us Polina Rajput MD LAB BLOOD ORDERABLES F inal Result JEFE LOVELL [address] Department [place] [address] documented in this encounter Visit Diagnoses Not on filedocumented in this encounter Care Teams Hospitalist Program Director Relationship Specialty Start Date End Date Polina Rajput MD PCP - General 01/22/17 05/14/19 documented as of this encounter
--- OUTSIDE RECORDS SUMMARY | 2024-10-23 02:11 | XMS_ITS | Encounter Summary ---
Author Organization [facility] Healthcare Address [address] [place] [address] Care Team Providers Care Workers Compensation Consultant Name Role Phone Polina Rajput MD Primary Care Provider Encounter Details Date Type Department Care Team (Late st Contact Info) Description 03/18/2017 8:31 AM CDT - 03/18/2017 11:59 PM CDT Hospital Encounter CH OP INTERIM Polina Rajput MD [address] [facility] [address] [place] [address] Discharge Disposition: Discharge to home or self care Social History Tobacco Use Types Packs/Day Years Used Date Smoking Tobacco: Never Alcohol Use Standard Drinks/Week Comments No 0 (1 standard drink = 0.6 oz pur e alcohol) Comments Unknown Sex and Gender Information Value Date Recorded Sex Assigned at Not on file 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 Sex Female 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 Gender Identity Not on file [...] day 180 3 09/13/2007 10/01/2017 meloxicam (MOBIC) 15 mg tablet take 1 tablet by oral route every day 90 0 03/15/2017 04/21/2017 meloxicam (MOBIC) 7.5 mg tablet TAKE ONE TABLET BY MOUTH TWICE DAILY FOR PAIN/ARTHRITI S 60 0 12/24/2014 03/29/2017 metFORMIN XR (GLUCOPHAGE XR) 750 mg 24 hr tablet take 1 tablet by oral route every day with the evening meal 90 1 06/03/2016 03/29/2017 sulfamethoxazole- trimethoprim (BACTRIM DS) 800-160 mg per tablet take 1 tablet by oral route every 12 hours 20 0 03/15/2017 03/29/2017 documented as of this encounter Discharge Disposition Disposition Code Departure Means Destination Discharge to home or self care documented in this encounter Plan of Treatment Not on file documented as of this encounter Visit Diagnoses Not on filedocumented in this encounter Care Teams Workers Compensation Consultant Relationship Specialty Start Date End Date Polina Rajput MD PCP - General 01/22/17 05/14/19 documented as of this encounter
--- OUTSIDE RECORDS SUMMARY | 2024-10-23 02:11 | XMS_ITS | Encounter Summary ---
Author Organization [facility] Healthcare Address [address] [place] [address] Care Team Providers Care Operating Room Assistant Name Role Phone Polina Rajput MD Primary Care Provider Encounter Details Date Type Department Care Team (Late st Contact Info) Description 04/09/2018 10:25 AM CDT - 04/09/2018 11:59 PM CDT Hospital Encounter [facility] [address] [place] [address] Polina Rajput MD [address] [address] Encounter for screening mammogram for malignant neoplasm of breast Discharge Disposition: Discharge to home or self care Social History Tobacco Use Types Packs/Day Years Used Date Smoking Tobacco: Never Smokeless Tobacco: Never Alcohol Use Standard Drinks/Week Comments No 0 (1 standard drink = 0.6 oz pur e alcohol) Comments No Sex and Gender Information Value Date Recorded Sex Assigned at Not on file 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 90 tablet 2 04/05/2018 12/30/2018 aspirin 81 mg tablet take 1 tablet (81MG) by ORAL route every day 0 01/15/2010 03/29/2019 fluticasone-salme terol (ADVAIR DISKUS) 500-50 mcg/dose diskus inhaler INHALE ONE DOSE BY MOUTH TWICE DAILY 3 3 06/14/2007 08/01/2018 glipiZIDE (GLUCOTROL) 5 mg tablet TAKE 1 TABLET DAILY 90 tablet 3 02/24/2018 02/19/2019 lisinopril-hydroC HLOROthiazide (PRINZIDE,ZESTORE TIC) 20-12.5 mg per tablet TAKE 2 TABLETS ONCE DAILY 180 tablet 3 10/01/2017 09/25/2018 meloxicam (MOBIC) 15 mg tablet TAKE 1 TABLET DAILY 90 tablet 2 11/26/2017 08/01/2018 documented as of this encounter Discharge Disposition Disposition Code Departure Means Destination Discharge to home or self care documented in this encounter Plan of Treatment Not on file documented as of this encounter Procedures Procedure Name Priority Date/Time Associated Diagnosis Comments SCREENING MAMMOGRAM BILATERAL W SHAY Schedule Routine, Read Routine (OP Routine) 04/09/2018 10:47 AM CDT Encounter for screening mammogram for malignant neoplasm of breast documented in this encounter Results * Screening Mammogram Bilateral W Shay (04/09/2018 10:47 AM CDT) Anatomical Region Laterality Modality Breast Bilateral Mammography 04/10/2018 12:5 6 PM CDT Impressions 04/10/2018 12:59 PM CDT 1. ??NO FINDINGS SUSPICIOUS FOR MALIGNANCY. 2. ??ANNUAL FOLLOW-UP RECOMMENDED. BI-RADS 2--benign Electronically signed by: Tay Grover Jr., M.D. Narrative 04/10/2018 12:59 PM CDT SCREENING MAMMOGRAM BILATERAL W SHAY HISTORY: Encounter for screening mammogram for malignant neoplasm of breast. TECHNIQUE: 2 views of each breast were obtained with bilateral breast tomosynthesis. COMPARISON: 03/18/2017, 12/14/2015, 12/10/2014, 11/13/2013. FINDINGS: Scattered fibroglandular densities bilaterally. No dominant mass, skin thickening, nipple retraction or suspicious cluster of microcalcifications is seen. ??Fatty replaced posterior upper-outer quadrant left breast and bilateral axillary lymph nodes are again observed. ??A few scattered benign calcifications are also seen. Digital technology was employed plus computer aided detection software (R2) was utilized in interpretation of these images. ??This facility utilizes a reminder system to notify patient's of yearly mammograms. Polina Rajput MD IMG MAMMO PROCEDURES F inal Result documented in this encounter Visit Diagnoses Diagnosis Encounter for screening mammogram for malignant neoplasm of breast documented in this encounter Care Teams Operating Room Assistant Relationship Specialty Start Date End Date Polina Rajput MD PCP - General 01/22/17 05/14/19 documented as of this encounter
--- OUTSIDE RECORDS SUMMARY | 2024-10-23 02:11 | XMS_ITS | Encounter Summary ---
Author Organization [facility] Healthcare Address [address] [place] [address] Care Team Providers Care Mandrel Press Hand Name Role Phone Lucas Rajput MD Primary Care Provider Encounter Details Date Type Department Care Team (Late st Contact Info) Description 03/18/2017 1:30 PM CDT - 03/18/2017 11:59 PM CDT Hospital Encounter [facility]IM Lucas Rajput MD [address] [facility] [address] [place] [address] Discharge Disposition: Discharge to home or self care Social History Tobacco Use Types Packs/Day Years Used Date Smoking Tobacco: Never Alcohol Use Standard Drinks/Week Comments No 0 (1 standard drink = 0.6 oz pur e alcohol) Comments Unknown Sex and Gender Information Value Date Recorded Sex Assigned at Not on file 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 EXAMINATION: Digital screening mammogram with tomosynthesis. HISTORY: Breast cancer screening PRIOR: 12/14/2015 and 12/10/2014 DENSITY: Scattered fibroglandular densities FINDINGS: Little change is noted. ??No new dominant mass, architectural distortion, nipple retraction, skin thickening, or suspicious calcifications are seen. Again noted are benign-appearing lymph nodes in the upper outer quadrant/axillary regions. IMPRESSION: BIRADS Category 2: Benign finding(s). Digital technology was employed plus computer-aided detection software (R2) was utilized in interpretation of these images. This facility utilizes a reminder system to notify patients of yearly mammograms. Electronically signed by: Tamera Mukherjee M.D. Interpreting Physician: ??TAMERA MUKHERJEE M.D. ??Read on: ??Mar 18 2017 ?? 1:46P Transcribed by: ??PSC ??On: Mar 18 2017 ??1:44P Approved Electronically by: ??YAZ Regan, TAMERA ??on: ??Mar 18 2017 ?? 1:44P Ordering DR: REFERRAL SELF Attending DR: LUCAS RAJPUT Attending: ??LUCAS RAJPUT Requesting: ??SELF, REFERRAL Requesting Fax: ??-- Attending Fax: ??[phone] Attending ID: ??[id number] Requesting ID: ??[id number] Report To 1 ID: ??[id number] Report To 1 Name: ??LUCAS RAJPUT Report To 1 FAX: ??[phone] NextGen Order #: ?? Procedure Note Miscellaneous, Not In File / Provider, MD Coty - 03/21/2017 SCREENING MAMM W JESS BI Acc#: [id number] DATE OF EXAM: Mar 18 2017 EXAMINATION: Digital screening mammogram with tomosynthesis. HISTORY: Breast cancer screening PRIOR: 12/14/2015 and 12/10/2014 DENSITY: Scattered fibroglandular densities FINDINGS: Little change is noted. No new dominant mass, architectural distortion, nipple retraction, skin thickening, or suspicious calcifications are seen. Again noted are benign-appearing lymph nodes in the upper outer quadrant/axillary regions. IMPRESSION: BIRADS Category 2: Benign finding(s). Digital technology was employed plus computer-aided detection software (R2) was utilized in interpretation of these images. This facility utilizes a reminder system to notify patients of yearly mammograms. Electronically signed by: Tamera Mukherjee M.D. Interpreting Physician: TAMERA MUKHERJEE M.D. Read on: Mar 18 2017 1:46P Transcribed by: PSC On: Mar 18 2017 1:44P Approved Electronically by: TAMERA MUKHERJEE M.D. on: Mar 18 2017 1:44P Ordering DR: REFERRAL SELF Attending DR: LUCAS RAJPUT Attending: LUCAS RAJPUT Requesting: SELF, REFERRAL Requesting Fax: -- Attending Attending ID: [id number] Requesting ID: [id number] Report To 1 ID: [id number] Report To 1 Name: LUCAS RAJPUT Report To 1 FAX: [phone] NextGen Order #: us Not In File Miscellaneous IMG MAMMO PROCEDURES F inal Result documented in this encounter Visit Diagnoses Not on filedocumented in this encounter Care Teams Mandrel Press Hand Relationship Specialty Start Date End Date Lucas Rajput MD PCP - General 01/22/17 05/14/19 documented as of this encounter
--- OUTSIDE RECORDS SUMMARY | 2024-10-23 02:11 | XMS_ITS | Encounter Summary ---
Author Organization [facility] Healthcare Address [address] [place] [address] Care Team Providers Care Seed Packer Name Role Phone Polina Rajput MD Primary Care Provider Encounter Details Date Type Department Care Team (Late st Contact Info) Description 12/24/2014 7:41 PM CALL CENTER CONSULTANT - 12/24/2014 11:59 PM CALL CENTER CONSULTANT Hospital Encounter [facility] Polina Rajput MD [address] [facility] [address] [place] [address] Encounter for routine gynecological examination Social History Tobacco Use Types Packs/Day Years Used Date Smoking Tobacco: Never Assessed Comments Unknown Sex and Gender Information Value Date Recorded Sex Assigned at Not on file 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 us Historical Provider LAB CYTOLOGY ORDERABLES F inal Result documented in this encounter Visit Diagnoses Diagnosis Encounter for routine gynecological examination documented in this encounter Care Teams Seed Packer Relationship Specialty Start Date End Date Polina Rajput MD PCP - General 04/16/10 01/21/17 documented as of this encounter
--- OUTSIDE RECORDS SUMMARY | 2024-10-23 02:11 | XMS_ITS | Encounter Summary ---
Author Organization [facility] Healthcare Address [address] [facility] [place] [address] Care Team Providers Care Home Delivery Driver Name Role Phone Polina aRjput MD Primary Care Provider Encounter Details Date Type Department Care Team (Late st Contact Info) Description 05/04/2018 3:30 PM CDT Lab [address] Polina Rajput MD [address] [facility] [address] [place] [address] Perimenopause Discharge Disposition: Discharge to home or self care Social History Tobacco Use Types Packs/Day Years Used Date Smoking Tobacco: Never Smokeless Tobacco: Never Alcohol Use Standard Drinks/Week Comments No 0 (1 standard drink = 0.6 oz pur e alcohol) Comments No Sex and Gender Information Value Date Recorded Sex Assigned at Not on file 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 Gender Identity Not on file Sexual Orientation Not on file documented as of this encounter Discharge Disposition Disposition Code Departure Means Destination Discharge to home or self care documented in this encounter Plan of Treatment Not on file documented as of this encounter Procedures Procedure Name Priority Date/Time Associated Diagnosis Comments LUTEINIZING HORMONE (LH) Routine 05/04/2018 3:28 PM CDT Perimenopause FOLLICLE STIMULATING HORMONE Routine 05/04/2018 3:28 PM CDT Perimenopause documented in this encounter Results * Follicle [...] last revised on 2016 Testing performed by: [facility], [address] [place] [address], [id number] Blood specimen (specimen) 05/04/2018 3:28 PM CDT 05/05/2018 11:04 AM CDT Narrative [facility] ([facility]) - 05/05/2018 12:04 PM CDT Polina Rajput MD LAB BLOOD ORDERABLES F inal Result [facility] (ISOM) [address] [facility] Department of Laboratories [place], [place] [id number] * LH (05/04/2018 3:28 PM CDT) LH 29 mIUnits/mL [facility] (BERTA) Comment: Interpretive Data Reference Interval Female ??<10 years ? 1 - 9 ?? mIU/ml ??Mid-Follicular ?2 - 11 ??mIU/ml ??Mid-Cycle ?19 - 100 mIU/ml ??Mid-Luteal ?1 - 13 ??mIU/ml ??Post Menopausal ??11 - 60 ??mIU/ml -- Male ?1 - 9 ?? mIU/ml Current interpretive data was last revised 2016 Testing performed by: [facility], [address] [place] [address], [place]., [address] Blood specimen (specimen) 05/04/2018 3:28 PM CDT 05/05/2018 11:04 AM CDT Narrative [facility] (ISOM) - 05/05/2018 12:04 PM CDT us Polina Rajput MD LAB BLOOD ORDERABLES F inal Result [facility] (ISOM) [address] [facility] Department [place] [address] documented in this encounter Visit Diagnoses Diagnosis Perimenopause Symptomatic menopausal or female climacteric states documented in this encounter Care Teams Home Delivery Driver Relationship Specialty Start Date End Date Polina Rajput MD PCP - General 01/22/17 05/14/19 documented as of this encounter
--- OUTSIDE RECORDS SUMMARY | 2024-10-23 02:11 | XMS_ITS | Encounter Summary ---
Author Organization [facility] Healthcare Address [address] [place] [address] Care Team Providers Care History Card Clerk Name Role Phone Lucas Rajput MD Primary Care Provider Encounter Details Date Type Department Care Team (Late st Contact Info) Description 11/13/2013 5:23 PM SPRAY DRY OPERATOR - 11/13/2013 11:59 PM SPRAY DRY OPERATOR Hospital Encounter [facility] Lucas Rajput MD [address] [facility] [address] [place] [address] Other screening mammogram Social History Tobacco Use Types Packs/Day Years Used Date Smoking Tobacco: Never Assessed Comments Unknown Sex and Gender Information Value Date Recorded Sex Assigned at Not on file 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 RESULT: Craniocaudal and mediolateral oblique views demonstrate minimal fibroglandular density in the breasts bilaterally. ??No dominant mass, skin thickening, nipple retraction or suspicious cluster of microcalcifications is seen. Digital technology was employed plus computer-aided detection software (R2) was utilized in interpretation of these images. ??This facility utilizes a reminder system to notify patients of yearly mammograms. IMPRESSION: 1. NO FINDING SUSPICIOUS FOR MALIGNANCY. 2. NO SIGNIFICANT CHANGE SINCE 26 OCTOBER 2012 OR 21 OCTOBER 2011. BI-RADS CATEGORY 1 - NEGATIVE Interpreting Physician: ??OBEY SHARPE M.D. ??Read on: ??Nov 14 2013 8:32A Transcribed by: ??mrr ??On: Nov 14 2013 10:22A Approved Electronically by: ??OBEY SHARPE M.D. ??on: ??Nov 14 2013 3:02P Ordering DR: LUCAS RAJPUT Attending DR: LUCAS RAJPUT Procedure Note Provider, MD Coty - 02/11/2017 Screening Mamm Bi Acc#: [id number] DATE OF EXAM: Nov 13 2013 Performed by: melyssa CLINICAL HISTORY: Screening. RESULT: Craniocaudal and mediolateral oblique views demonstrate minimalfibroglandular density in the breasts bilaterally. No dominant mass, skinthickening, nipple retraction or suspicious cluster of microcalcificationsis seen. Digital technology was employed plus computer-aided detectionsoftware (R2) was utilized in interpretation of these images. Thisfacility utilizes a reminder system to notify patients of yearlymammograms. IMPRESSION: 1. NO FINDING SUSPICIOUS FOR MALIGNANCY. 2. NO SIGNIFICANT CHANGE SINCE 26 OCTOBER 2012 OR 21 OCTOBER 2011. BI- RADSCATEGORY 1 - NEGATIVE Interpreting Physician: OBEY SHARPE M.D. Read on: Nov 14 20138:32A Transcribed by: aisha On: Nov 14 2013 10:22A Approved Electronically by: OBEY SHARPE M.D. on: Nov 14 20133:02P Ordering DR: LUCAS RAJPUT Attending DR: LUCAS RAJPUT us Historical Provider MD [place] MAMMO PROCEDURES Dede l Result documented in this encounter Visit Diagnoses Diagnosis Other screening mammogram documented in this encounter Care Teams History Card Clerk Relationship Specialty Start Date End Date Lucas Rajput MD PCP - General 04/16/10 01/21/17 documented as of this encounter
--- OUTSIDE RECORDS SUMMARY | 2024-10-23 02:11 | XMS_ITS | Encounter Summary ---
Author Organization [facility] Address [address] [facility] [address] [place] [address] Care Team Providers Care Bobbin Hauler Name Role Phone Polina Rajput MD Primary Care Provider Encounter Details Date Type Department Care Team (Late st Contact Info) Description 04/25/2018 Orders Only [facility] [address] [place] [address] Polina Rajput MD [address] [facility] [address] [place] [address] Social History Tobacco Use Types Packs/Day Years Used Date Smoking Tobacco: Never Smokeless Tobacco: Never Alcohol Use Standard Drinks/Week Comments No 0 (1 standard drink = 0.6 oz pur e alcohol) Comments No Sex and Gender Information Value Date Recorded Sex Assigned at Not on file 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 Take one tab now. Repeat in 7 days if symptoms persist. 2 tablet 04/25/2018 8 documented in this encounter Plan of Treatment Not on file documented as of this encounter Visit Diagnoses Not on filedocumented in this encounter Discontinued Medications Medication Sig Discontinue Reason Start Date End Da te fluconazole (DIFLUCAN) 150 mg tablet Take 1 tablet (150 mg total) by mouth as directed. Take one tab now. Repeat in 7 days if symptoms persist. Duplicate order 04/18/2018 04/25/2018 documented as of this encounter Care Teams Bobbin Hauler Relationship Specialty Start Date End Date Polina Rajput MD PCP - General 01/22/17 05/14/19 documented as of this encounter
--- OUTSIDE RECORDS SUMMARY | 2024-10-23 02:11 | XMS_ITS | Encounter Summary ---
Author Organization [facility] Healthcare Address [address] [facility] [place] [address] Care Team Providers Care Millinery Worker Name Role Phone Lucas Rajput MD Primary Care Provider Encounter Details Date Type Department Care Team (Late st Contact Info) Description 10/06/2014 8:02 AM CLINICAL NURSE EDUCATOR - 10/06/2014 11:59 PM CLINICAL NURSE EDUCATOR Hospital Encounter [facility] Lucas Rajput MD [address] [facility] [address] [place] [address] Type 2 or unspecified type diabetes mellitus; Other and unspecified hyperlipidemia Social History Tobacco Use Types Packs/Day Years Used Date Smoking Tobacco: Never Assessed Comments Unknown Sex and Gender Information Value Date Recorded Sex Assigned at Not on file Legal Sex Female 8:35 AM CLINICAL NURSE EDUCATOR Gender Identity Not on file Sexual Orientation [...] Procedure Name Priority Date/Time Associated Diagnosis Comments SERUM THYROXINE (T4), FREE Routine 10/06/2014 8:20 AM CLINICAL NURSE EDUCATOR SERUM THYROID-STIMULATING HORMONE (TSH) Routine 10/06/2014 8:20 AM CLINICAL NURSE EDUCATOR SERUM LIPID PANEL Routine 10/06/2014 8:2 0 AM CLINICAL NURSE EDUCATOR SERUM COMPREHENSIVE METABOLIC PANEL Routine 10/06/2014 8:20 AM CLINICAL NURSE EDUCATOR BLOOD WBC CELL MORPHOLOGIC EXAM, AUTO Routine 10/06/2014 8:20 AM CLINICAL NURSE EDUCATOR BLOOD CELL COUNT (CBC) Routine 4 8:20 AM CLINICAL NURSE EDUCATOR BLOOD GLYCATED HEMOGLOBIN Routine 10/06/2014 2:20 AM CLINICAL NURSE EDUCATOR DISCHARGE LABORATORY CUMULATIVE REPORT Routine 10/06/2014 12:00 AM CLINICAL NURSE EDUCATOR documented in this encounter Results * Serum thyroid-stimulating hormone (TSH) (10/06/2014 8:20 AM CLINICAL NURSE EDUCATOR) TSH 1.16 0.35 - 4.80 mcIUnits/ml HISTORICAL RESULTS Serum 10/06/2014 8:20 AM CLINICAL NURSE EDUCATOR us Lucas Rajput MD LAB BLOOD ORDERABLES F inal Result HISTORICAL RESULTS * Serum lipid panel (10/06/2014 8:20 AM CLINICAL NURSE EDUCATOR) Cholesterol 202 mg/dl HISTORIC AL RESULTS Comment: DESIRABLE = LESS THAN 200 MG/DL BORDERLINE HIGH = 200-239 MG/DL HIGH= GREATER THAN 239 MG/DL Triglycerides 94 mg/dl HISTOR ICAL RESULTS Comment: Current guidelines recommend that lipid screen be performed on fasting blood samples for heart risk stratification. NORMAL = LESS THAN 150 MG/DL BORDERLINE HIGH = 150-199 MG/DL HIGH = 200-499 MG/DL VERY HIGH = GREATER THAN OR EQUAL TO 500 MG/DL HDL 62 mg/dl HISTORICAL RESULTS Comment: LOW HDL CHOLESTEROL = Less than 40 mg/dL NORMAL HDL CHOLESTEROL = 40-59 mg/dL HIGH HDL CHOLESTEROL = Greater than 59 mg/dL Non-HDL cholesterol, calculated 140 mg/dl HISTORICAL RESULTS Comment: OPTIMAL LESS THAN 130 LOW RISK 130 -159 MODERATE RISK 160 - 189 HIGH RISK GREATER THAN OR EQUAL TO 190 LDL, calculated 121 HIST ORICAL RESULTS Comment: LESS THAN 100 MG/DL OPTIMAL 100 - 129 MG/DL NEAR OPTIMAL / ABOVE OPTIMAL 130 - 159 MG/DL BORDERLINE HIGH 160 - 189 MG/DL HIGH GREATER THAN OR = 190 MG/DL VERY HIGH LDL VALUES ARE NOT VALID WHEN THE TOTAL TRIGLYCERIDE IS GREATER THAN 300 MG/DL. Serum 10/06/2014 8:20 AM CLINICAL NURSE EDUCATOR Lucas Rajput MD LAB BLOOD ORDERABLES F inal Result Performing Organization Address City/[facility] Co de Phone Number HISTORICAL RESULTS * Serum thyroxine (T4), free (10/06/2014 8:20 AM CLINICAL NURSE EDUCATOR) Free T4 0.7 0.7 - 1.3 ng/dl HISTORICAL RESULTS Serum 10/06/2014 8:20 AM CLINICAL NURSE EDUCATOR Lucas Rajput MD LAB BLOOD ORDERABLES F inal Result Performing Organization Address [facility] Co de Phone Number HISTORICAL RESULTS * Blood cell count (CBC) (10/06/2014 8:20 AM CLINICAL NURSE EDUCATOR) WBC 7.2 4.0 - 10.5 K/cumm HISTORICAL RESULTS RBC 4.84 4.20 - 5.40 M/cumm HISTORICAL RESULTS Hgb 12.8 12.0 - 16.0 g/dl HISTORICAL RESULTS Hct 39.6 37.0 - 47.0 % HISTORICAL RESULTS MCV 81.8 77.0 - 97.0 fl HISTORICAL RESULTS MCH 26.4 23.0 - 34.0 pg HISTORICAL RESULTS MCHC 32.3 32.0 - 36.0 g/dl HISTORICAL RESULTS Rdw 14.1 11.5 - 14.5 % HISTORICAL RESULTS Platelets 362 150 - 400 K/cumm HISTORICAL RESULTS MPV 9.8 7.4 - 10.4 fl HISTORICAL RESULTS Blood specimen (specimen) 10/06/2014 8:20 AM CLINICAL NURSE EDUCATOR Lucas Rajput MD LAB BLOOD ORDERABLES F inal Result HISTORICAL RESULTS * (ABNORMAL) Blood WBC cell morphologic exam, auto (10/06/2014 8:20 AM CLINICAL NURSE EDUCATOR) Lymphocytes 22.5(L) 25.0 - 33.0 % HISTORICAL RESULTS Monos 7.1 0.0 - 13.0 % HISTORICAL RESULTS Neutrophils 70.2(H) 54.0 - 69.0 % HISTORICAL RESULTS Eosinophils 0.0 0.0 - 10.0 % HISTORICAL RESULTS Basophils 0.1 0.0 - 1.0 % HISTORICAL RESULTS Immature granulocytes 0.1 0.0 - 1.0 % HISTORICAL RESULTS Lymphocytes, abs 1.6 1.2 - 3.4 K/cumm HISTORICAL RESULTS Monocytes, absolute 0.5(L) 1.1 - 1.9 K/cumm HISTORICAL RESULTS Neutrophils, abs 5.0 1.4 - 6.5 K/cumm HISTORICAL RESULTS Eosinophils, abs 0.0 0.0 - 0.7 cells/cum m HISTORICAL RESULTS Basophils, abs 0.0 0.0 - 0.2 K/cumm HISTORICAL RESULTS Immature granulocyte, abs 0.0 0.0 - 0.0 K/cumm HISTORICAL RESULTS Blood specimen (specimen) 10/06/2014 8:20 AM CLINICAL NURSE EDUCATOR Lucas Rajput MD LAB BLOOD ORDERABLES F inal Result HISTORICAL RESULTS * (ABNORMAL) Serum comprehensive metabolic panel (10/06/2014 8:20 AM CLINICAL NURSE EDUCATOR) BUN 11.0 6.0 - 23.0 mg/dl HISTORICAL RESULTS Sodium 136 134 - 143 mmol/L HISTORICAL RESULTS Potassium, sr 4.2 3.4 - 5.0 mmol/L HISTORICAL RESULTS Chloride 104 99 - 108 mmol/L HISTORICAL RESULTS CO2 28 23 - 32 mmol/L HISTORICAL RESULTS Glucose 108 70 - 199 mg/dl HISTORICAL RESULTS Comment: Note:The glucose is assumed non fasting Fastin-99 mg/dl Random: 70-199 mg/dl Either a fasting glucose > 126 mg/dL or a random glucose > 200 mg/dL plus symptoms is diagnostic of diabetes when confirmed on another day. Fasting values > 100 mg/dl but < 125 mg/dL are diagnostic of impaired fasting glucose. New reference ranges implemented 09/04/2013. Creatinine 0.88 0.60 - 1.30 mg/dl HISTORICAL RESULTS Comment: eGFR: >70 ml/min/1.73sq.m if non -[place]. eGFR: >70 ml/min/1.73sq.m if -Guatemalan. AVE GFR for 50-59 yr. age group: ??93 ml/min/1.73sq.m Calculated using MDRD Equation BUN/creat ratio 13 10 - 20 HIST ORICAL RESULTS A. gap 8 7 - 14 mmol/L HISTORICAL RESULTS Protein, sr 7.5 6.4 - 8.0 g/dl HISTORICAL RESULTS Alb 3.4 3.3 - 4.5 g/dl HISTORICAL RESULTS Alb/glob ratio 0.8(L) 1.1 - 1.8 HISTO RICAL RESULTS Calcium 8.6 8.6 - 9.8 mg/dl HISTORICAL RESULTS Bilirubin 0.3 0.0 - 1.1 mg/dl HISTORICAL RESULTS Alk phos 102 44 - 125 Units/L HISTORICAL RESULTS AST 14 5 - 40 Units/L HISTORICAL RESULTS ALT 23 15 - 70 Units/L HISTORICAL RESULTS Serum 10/06/2014 8:20 AM CLINICAL NURSE EDUCATOR Lucas Rajput MD LAB BLOOD ORDERABLES F inal Result HISTORICAL RESULTS * (ABNORMAL) Blood glycated hemoglobin (10/06/2014 2:20 AM CLINICAL NURSE EDUCATOR) Glycated hemoglobin 6.9(H) 4.2 - 5.9 % HISTORICAL RESULTS Blood specimen (specimen) 10/06/2014 2:20 AM CLINICAL NURSE EDUCATOR Narrative HISTORICAL RESULTS - 10/06/2014 4:08 AM CLINICAL NURSE EDUCATOR Estimated average Glucose A1C(%) ?? mg/dl ? A1C(%) ?? mg/dl ?? 5.0 ?97 ?9.0 ?212 ?? 5.5 ? 111 ?9.5 ?226 ?? 6.0 ? 126 ? 10.0 ?240 ?? 6.5 ? 140 ? 10.5 ?255 ?? 7.0 ? 154 ? 11.0 ?269 ?? 7.5 ? 169 ? 11.5 ?283 ?? 8.0 ? 183 ? 12.0 ?298 ?? 8.5 ? 197 95% Confidence levels are +/- 20% The ADA recommends reporting an estimated Average Glucose (eAG) with all hemoglobin A1C results using the equation derived from a study of 507 normal adults and diabetic adults (in stable control). Minority populations were underrepresented. Children and women were not included. (Diabetes Care 2008; 31:9810-5511) us Lucas Rajput MD LAB BLOOD ORDERABLES F inal Result HISTORICAL RESULTS * Discharge Laboratory Cumulative Report (10/06/2014 12:00 AM CLINICAL NURSE EDUCATOR) 10/06/2014 Narrative HISTORICAL RESULTS - 10/12/2014 12:38 AM CLINICAL NURSE EDUCATOR Patient No: [id number] ? [facility] Patient Name: KEVIN CHAKRABORTY ? [facility] Age: 49 YRS ?: 1965 ?Sex:F ?[address] )[phone] ?? Adm Dt: 10/06/2014 ?[place] ??[address] Created: 10/12/2014 ??0038 ?? Pt. Type: R ? Discharge Dt: 10/06/2014 ? Pathologists: Imelda Fernandez MD Admit Attend : LUCAS RAJPUT MD ? BLOOD CELL COUNTS ?Collection Date: ?10/06/14 ?Collection Time: ?0820 ? Ref Range: ?? Units: [4.00-10.50] /CMM ? WBC X 10^3 ?7.19 [4.20-5.40] ??/CMM ? RBC X 10^6 ?4.84 [12.0-16.0] ??G/DL ? HGB ? 12.8 [37.0-47.0] ??% ?HCT ? 39.6 [77.0-97.0] ??FL ? MCV ? 81.8 [23.0-34.0] ??PG ? MCH ? 26.4 [32.0-36.0] ??% ?MCHC ?32.3 [11.5-14.5] ??% ?RDW ? 14.1 [150-400] ?? /CMM ? PLT X 10^3 ? 362 ?BLOOD CELL DIFFERENTIAL ?Collection Date: ?10/06/14 ?Collection Time: ?0820 ? Ref Range: ?? Units: [54.0-69.0] ??% ?NEUTROPHILS ? 70.2 H [25.0-33.0] ??% ?LYMPHOCYTES ? 22.5 L [0.0-13.0] ??% ?MONOCYTES ?7.1 [0.0-10.0] ??% ?EOSINOPHILS ?0.0 [0.0-1.0] ?? % ?BASOPHILS ?0.1 ? /CMM ? A LYMPHOCYTE ? 1.6 [0.0-1.0] ?? % ?IMM GRAN % ? 0.1 [0.00-0.02] ??/CMM ? A IMM GRAN ?0.01 [1.1-1.9] ?? /CMM ? A MONOCYTE ? 0.5 L [1.4-6.5] ?? /CMM ? A NEUTROPHIL ? 5.0 [0.0-0.7] ?? /CMM ? A EOSINOPHIL ? 0.0 [0.0-0.2] ?? /CMM ? A BASOPHIL ? 0.0 Footnotes and Symbols: L = Low, H = High ?? CONTINUED ?Page: ?? 1 Patient No: [id number] ? [facility] Patient Name: KEVIN CHAKRABORTY ? [facility] Age: 49 YRS ?: 1965 ?Sex:F ?[address] )[phone] ?? Adm Dt: 10/06/2014 ?[place], [place] ??[address] Created: 10/12/2014 ??0038 ?? Pt. Type: R ? Discharge Dt: 10/06/2014 ? Pathologists: Imelda Fernandez MD Admit Attend Dr: LUCAS RAJPUT MD ?SPECIAL HEMATOLOGY ?Collection Date: ?10/06/14 ?Collection Time: ?0820 ? Ref Range: ?? Units: [4.2-5.9] ?? % ?HEMOGLOBIN A1C ? 6.9 Hf Footnotes and Symbols: H = High, f = Footnote HEMOGLOBIN A1C (06/10/11 -- Current) Estimated average Glucose A1C(%) ?? mg/dl ? A1C(%) ?? mg/dl ?? 5.0 ?97 ?9.0 ?212 ?? 5.5 ? 111 ?9.5 ?226 ?? 6.0 ? 126 ? 10.0 ?240 ?? 6.5 ? 140 ? 10.5 ?255 ?? 7.0 ? 154 ? 11.0 ?269 ?? 7.5 ? 169 ? 11.5 ?283 ?? 8.0 ? 183 ? 12.0 ?298 ?? 8.5 ? 197 95% Confidence levels are +/- 20% The ADA recommends reporting an estimated Average Glucose (eAG) with all hemoglobin A1C results using the equation derived from a study of 507 normal adults and diabetic adults (in stable control). Minority populations were underrepresented. Children and women were not included. (Diabetes Care 2008; 31:2791-9556) ?? CONTINUED ?Page: ?? 2 Patient No: [id number] ? [facility] Patient Name: KEVIN CHAKRABORTY ? [facility] Healthcare Age: 49 YRS ?: 1965 ?Sex:F ?[address] )[phone] ?? Adm Dt: 10/06/2014 ?[place], [place] ??[address] Created: 10/12/2014 ??0038 ?? Pt. Type: R ? Discharge Dt: 10/06/2014 ? Pathologists: Imelda Fernandez MD Admit Attend Dr: LUCAS RAJPUT MD ? GENERAL CHEMISTRY ?Collection Date: ?10/06/14 ?Collection Time: ?0820 ? Ref Range: ?? Units: [134-143] ?? MMOL/L ? SODIUM ? 136 [3.4-5.0] ?? MMOL/L ? POTASSIUM ?4.2 [99.0-108.0] MMOL/L ? CHLORIDE ? 104.0 [23.0-32.0] ??MMOL/L ? TOTAL CO2 ? 28.5 ?? [7-14] ?MMOL/L ? ANION GAP ?8 ??[70-199] ?? MG/DL ?GLUCOSE ?108 f [6.4-8.0] ?? G/DL ? TOTAL PROTEIN ?7.5 [3.3-4.5] ?? G/DL ? ALBUMIN ?3.4 [1.1-1.8] ?A/G RATIO ?0.8 L [8.6-9.8] ?? MG/DL ?CALCIUM ?8.6 [0.0-1.1] ?? MG/DL ?BILI TOTAL ? 0.3 ??[44-125] ?? U/L ?ALK PHOS ? 102 ?? [5-40] ?U/L ?AST(SGOT) ? 14 f ??[15-70] ?U/L ?ALT(SGPT) ? 23 f [6.0-23.0] ??MG/DL ?BUN ? 11.0 ??[10-20] ? B/C RATIO ? 13 Footnotes and Symbols: L = Low, f = Footnote GLUCOSE (09/26/13 -- Current) Note:The glucose is assumed non fasting Fastin-99 mg/dl Random: 70-199 mg/dl Either a fasting glucose > 126 mg/dL or a random glucose > 200 mg/dL plus symptoms is diagnostic of diabetes when confirmed on another day. Fasting values > 100 mg/dl but < 125 mg/dL are diagnostic of impaired fasting glucose. New reference ranges implemented 09/04/2013. AST(SGOT) (03/08/14 -- Current) ALT(SGPT) (05/16/13 -- Current) ?? CONTINUED ?Page: ?? 3 Patient No: [id number] ? [facility] Patient Name: KEVIN CHAKRABORTY ? [facility] Healthcare Age: 49 YRS ?: 1965 ?Sex:F ?[address] )[id number] ?? Adm Dt: 10/06/2014 ?[place], [place] ??[address] Created: 10/12/2014 ??0038 ?? Pt. Type: R ? Discharge Dt: 10/06/2014 ? Pathologists: Imelda Fernandez MD Admit DrMickey Attend Dr: LUCAS RAJPUT MD ? GENERAL CHEMISTRY ?Collection Date: ?10/06/14 ?Collection Time: ?0820 ? Ref Range: ?? Units: [0.60-1.30] ??MG/DL ?CREATININE ?0.88 f ?10/06/14 0820 eGFR: >70 ml/min/1.73sq.m if non -[place]atemalan. eGFR: >70 ml/min/1.73sq.m if -[place]atemalan. AVE GFR for 50-59 yr. age group: ??93 ml/min/1.73sq.m Calculated using MDRD Equation FOOTNOTE ADDED ON ?? 10/06/14 ?? AT 0900 BY 999 ?LIPIDS ?Collection Date: ?10/06/14 ?Collection Time: ?0820 ? Ref Range: ?? Units: ? MG/DL ?CHOLESTEROL ?202 f ? MG/DL ?HDL CHOLESTEROL ? 62 f Footnotes and Symbols: f = Footnote CHOLESTEROL (11/06/10 -- Current) DESIRABLE = LESS THAN 200 MG/DL BORDERLINE HIGH = 200-239 MG/DL HIGH= GREATER THAN 239 MG/DL HDL CHOLESTEROL (11/06/10 -- Current) LOW HDL CHOLESTEROL = Less than 40 mg/dL NORMAL HDL CHOLESTEROL = 40-59 mg/dL HIGH HDL CHOLESTEROL = Greater than 59 mg/dL ?? CONTINUED ?Page: ?? 4 Patient No: [id number] ? [facility] Patient Name: KEVIN CHAKRABORTY ? [facility] Healthcare Age: 49 YRS ?: 1965 ?Sex:F ?[address] )[phone] ?? Adm Dt: 10/06/2014 ?[place], [place] ??[address] Created: 10/12/2014 ??0038 ?? Pt. Type: R ? Discharge Dt: 10/06/2014 ? Pathologists: Imelda Fernandez MD Admit Attend Dr: LUCAS RAJPUT MD ?LIPIDS ?Collection Date: ?10/06/14 ?Collection Time: ?0820 ? Ref Range: ?? Units: ? MG/DL ?TRIGLYCERIDES ? 94 f ?10/06/14 0820 Current guidelines recommend that lipid screen be ??performed on fasting blood samples for heart risk stratification. FOOTNOTE ADDED ON ?? 12/13/14 ?? AT 0900 BY 999 ? MG/DL ?NON HDL CALC ? 140 f ?LDL CHOL CALC ?121 f Footnotes and Symbols: f = Footnote TRIGLYCERIDES (02/08/13 -- Current) NORMAL = LESS THAN 150 MG/DL BORDERLINE HIGH = 150-199 MG/DL HIGH = 200-499 MG/DL VERY HIGH = GREATER THAN OR EQUAL TO 500 MG/DL NON HDL CALC (01/30/13 -- Current) OPTIMAL LESS THAN 130 LOW RISK 130 -159 MODERATE RISK 160 - 189 HIGH RISK GREATER THAN OR EQUAL TO 190 LDL CHOL CALC (02/09/13 -- Current) LESS THAN 100 MG/DL OPTIMAL 100 - 129 MG/DL NEAR OPTIMAL / ABOVE OPTIMAL 130 - 159 MG/DL BORDERLINE HIGH 160 - 189 MG/DL HIGH GREATER THAN OR = 190 MG/DL VERY HIGH LDL VALUES ARE NOT VALID WHEN THE TOTAL TRIGLYCERIDE IS GREATER THAN 300 MG/DL. ?? CONTINUED ?Page: ?? 5 Patient No: [id number] ? [facility] Patient Name: KEVIN CHAKRABORTY ? [facility] Age: 49 YRS ?: 1965 ?Sex:F ?[address] )[phone] ?? Adm Dt: 10/06/2014 ?[place], [place] ??[address] Created: 10/12/2014 ??0038 ?? Pt. Type: R ? Discharge Dt: 10/06/2014 ? Pathologists: Imelda Fernandez MD Admit Dr. Reaves Dr: LUCAS RAJPUT MD ?THYROID FUNCTION TESTS ?Collection Date: ?10/06/14 ?Collection Time: ?0820 ? Ref Range: ?? Units: [0.7-1.3] ?? NG/DL ?FREE T4 ?0.7 [0.35-4.80] ??uIU/ML ? TSH ? 1.16 ?? END OF CHART ? Page: ?? 6 us Historical Provider LAB BLOOD ORDERABLES Dede l Result HISTORICAL RESULTS documented in this encounter Visit Diagnoses Diagnosis Type 2 or unspecified type diabetes mellitus Other and unspecified hyperlipidemia documented in this encounter Care Teams Millinery Worker Relationship Specialty Start Date End Date Lucas Rajput MD PCP - General 04/16/10 01/21/17 documented as of this encounter
--- OUTSIDE RECORDS SUMMARY | 2024-10-23 02:11 | XMS_ITS | Encounter Summary ---
Author Organization [facility] Healthcare Address [address] [place] [address] Care Team Providers Care Edger Liner Name Role Phone Polina Rajput MD Primary Care Provider Encounter Details Date Type Department Care Team (Late st Contact Info) Description 11/12/2011 9:30 AM PRODUCT MARKETING SPECIALIST - 11/12/2011 11:59 PM PRODUCT MARKETING SPECIALIST Hospital Encounter [facility] Polina Rajput MD [address] [facility] [address] [place] [address] Abdominal pain, right upper quadrant Social History Tobacco Use Types Packs/Day Years Used Date Smoking Tobacco: Never Assessed Comments Unknown Sex and Gender Information Value Date Recorded Sex Assigned at Not on file Legal Sex Female 8:35 AM PRODUCT MARKETING SPECIALIST Gender Identity Not on file Sexual [...] as of this encounter Visit Diagnoses Diagnosis Abdominal pain, right upper quadrant documented in this encounter Care Teams Edger Liner Relationship Specialty Start Date End Date Polina Rajput MD PCP - General 04/16/10 01/21/17 documented as of this encounter
--- OUTSIDE RECORDS SUMMARY | 2024-10-23 02:11 | XMS_ITS | Encounter Summary ---
Author Organization [facility] Address [address] [facility] [address] [facility] [address] [place] [address] Care Team Providers Care Supervisor Furnace Room Name Role Phone Polina Rajupt MD Primary Care Provider Encounter Details Date Type Department Care Team (Late st Contact Info) Description 03/18/2017 Orders Only [facility] [address] [place] [address] Polina Rajput MD [address] [facility] [address] [place] [address] Social History Tobacco Use Types Packs/Day Years Used Date Smoking Tobacco: Never Alcohol Use Standard Drinks/Week Comments No 0 (1 standard drink = 0.6 oz pur e alcohol) Comments Unknown Sex and Gender Information Value Date Recorded Sex Assigned at Not on file Legal Sex Female 8:35 AM HOSPITALIST MEDICAL DIRECTOR Gender Identity Not on file Sexual Orientation Not on file documented as of this encounter Plan of Treatment Not on file documented as of this encounter Procedures Procedure Name Priority Date/Time Associated Diagnosis Comments LIPID PANEL Routine 03/18/2017 8:33 AM CDT documented in this encounter Results * (ABNORMAL) Lipid panel (03/18/2017 8:33 AM CDT) Cholesterol 210(H) 100 - 200 mg/dL [facility] LOVE[facility] Comment: Interpretive Data Desirable: ?<200 mg/dL Borderline high: ??200-239 mg/dL High: ? >240 mg/dL Current interpretive data was last revised on 2016. Triglycerides 101 10 - 150 mg/dL [facility] Comment: Interpretive Data Desirable: ? < 150 ? mg/dL Borderline High: ? 150 - 199 mg/dL High: ?200 - 499 mg/dL Very High: ? > or = 499 ??mg/dL Current interpretive data was last revised on 2016. HDL 57 40 - 59 mg/dL [facility] Comment: Interpretive Data Less than 40 mg/dL - Low; A major risk factor for heart disease. Greater than or equal to 60 mg/dL - High; ??Considered protective of heart disease. Current interpretive data was last revised on 2016. LDL, calculated 133(H) 60 - 129 mg/dL [facility] Comment: Interpretive Data Optimal: ? < 100 mg/dL Near Optimal: ?100 - 129 mg/dL Borderline High: ?? 130 - 159 mg/dL High: ?> 160 mg/dL Current interpretive data was last revised on 2016. Non-HDL Cholesterol 153 mg/dL [facility] Comment: Interpretive Data When triglycerides are >200 mg/dL, non-HDL C is a secondary target of therapy, with a goal 30 mg/dL higher than the identified LDL-C goal. Current interpretive data was last revised 2016. Blood specimen (specimen) 03/18/2017 8:33 AM CDT 03/18/2017 8:33 AM CDT us Polina Rajput MD LAB BLOOD ORDERABLES F inal Result [facility] [address] Department [place] [address] documented in this encounter Visit Diagnoses Not on filedocumented in this encounter Care Teams Supervisor Furnace Room Relationship Specialty Start Date End Date Polina Rajput MD PCP - General 01/22/17 05/14/19 documented as of this encounter
--- OUTSIDE RECORDS SUMMARY | 2024-10-23 02:11 | XMS_ITS | Encounter Summary ---
Author Organization [facility] Healthcare Address [address] [place] [address] Care Team Providers Care Custom Home Installer Name Role Phone Polina Rajput MD Primary Care Provider Encounter Details Date Type Department Care Team (Late st Contact Info) Description 11/12/2014 11:18 AM ICER 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 - 11/12/2014 1:25 PM ICER 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 Hospital Encounter [facility] Warren Calvin MD [address] [place] [address] [place] [address] Special screening for malignant neoplasms, colon; Constipation; Obesity Social History Tobacco Use Types Packs/Day Years Used Date Smoking Tobacco: Never Assessed Comments Unknown Sex and Gender Information Value Date Recorded Sex Assigned at Not on file Legal Sex Female 8:35 AM ICER 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 Gender Identity Not on file [...] 09/13/2007 10/01/2017 documented as of this encounter Procedure Notes * Provider, MD Coty - 11/12/2014 12:00 AM CSTAssociated Order(s): COLONOSCOPY PROCEDURE REPORT Patient: KEVIN CHAKRABORTY Account: [id number] Room No: : 1965 Patient Type: SDS Attend.: Warren Schmitz M.D. Admit Date: 11/12/2014 Dict.: Warren Schmitz M.D. Disch. Date: 11/12/2014 NAME OF PROCEDURE: Diagnostic screening colonoscopy. INDICATION: Screening for colon cancer. DATE OF PROCEDURE: 11/12/14. PRIMARY CARE PHYSICIAN: Polina Rajput M.D. BRIEF HISTORY AND PHYSICAL: The patient is a 49-year-old -[place]ub[place] female with no previous colonoscopy, no family history of colon cancer. She has complaints of chronic constipation. The patient presented for screening colonoscopy test. The patient has obesity. PROCEDURE: Sedation was provided by anesthesia service. The procedure of colonoscopy including indications and possible complications of bleeding, infection, and perforation requiring surgery were discussed with the patient and consent was obtained. Rectal examination prior to colonoscopy was unremarkable. The scope was introduced in the rectum and advanced to the cecum which was identified by the ileocecal valve and appendiceal orifice. The quality of the colon preparation was not optimum overall. There were areas of thick and hard stool encountered in some areas of the colon. Extensive washing was applied and although we visualized most of the colon, lining, and mucosa with this quality of the prep small lesions can be missed. Otherwise there were no polyps and no mass lesions noted on the test. The rectum and retroflexed view of the rectum were unremarkable. IMPRESSION: Overall unremarkable colonoscopy, normal considering the not optimal colon preparation. RECOMMENDATIONS: Repeat colonoscopy for screening in five years. Shereen Young/didier TD: 11/13/2014 09:17 CC: Polina Rajput M.D. Electronically Authenticated and Edited by: Warren Schmitz MD On 11/21/2014 01:02 PM ICER 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 documented in this encounter Plan of Treatment Not on file documented as of this encounter Procedures Procedure Name Priority Date/Time Associated Diagnosis Comments COLONOSCOPY IMAGES 11/12/2014 COLONOSCOPY 11/12/2014 12:00 AM ICER 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 documented in this encounter Results * COLONOSCOPY (11/12/2014 12:00 AM ICER 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) Anatomical Region Laterality Modality Other Narrative 11/12/2014 12:00 AM ICER 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 Ordered by an unspecified provider. Procedure Note Provider, MD Coty - 11/12/2014 12:00 AM CST PROCEDURE REPORT Patient: KEVIN CHAKRABORTY Account: [id number] Room No: : 1965 Patient Type: SDS Attend.: Warren Schmitz M.D. Admit Date: 11/12/2014 Dict.: Warren Schmitz M.D. Disch. Date: 11/12/2014 NAME OF PROCEDURE: Diagnostic screening colonoscopy. INDICATION: Screening for colon cancer. DATE OF PROCEDURE: 11/12/14. PRIMARY CARE PHYSICIAN: Polina Rajput M.D. BRIEF HISTORY AND PHYSICAL: The patient is a 55-bepy-[id number]-[place] female with no previous colonoscopy, no family history of colon cancer.She has complaints of chronic constipation. The patient presented forscreening colonoscopy test. The patient has obesity. PROCEDURE: Sedation was provided by anesthesia service. The procedure of colonoscopy including indications and possible complications ofbleeding, infection, and perforation requiring surgery were discussed with thepatient and consent was obtained. Rectal examination prior to colonoscopy was unremarkable. The scope was introduced in the rectum and advanced to thececum which was identified by the ileocecal valve and appendiceal orifice. The quality of the colon preparation was not optimum overall. There were areasof thick and hard stool encountered in some areas of the colon. Extensivewashing was applied and although we visualized most of the colon, lining, andmucosa with this quality of the prep small lesions can be missed. Otherwisethere were no polyps and no mass lesions noted on the test. The rectum and retroflexed view of the rectum were unremarkable. IMPRESSION: Overall unremarkable colonoscopy, normal considering the not optimal colon preparation. RECOMMENDATIONS: Repeat colonoscopy for screening in five years. Warren Schmitz M.D. MOSHE/sp TD: 11/13/2014 09:17 CC: Polina Rajput M.D. Electronically Authenticated and Edited by: Warren Schmitz MD On 11/21/2014 01:02 PM ICER 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 us Historical Provider ENDOSCOPY PROCEDURES Dede l Result * COLONOSCOPY IMAGES (11/12/2014) Anatomical Region Laterality Modality Other Narrative 11/12/2014 Ordered by an unspecified provider. us Historical Provider GI PROCEDURE ORDERABLES F inal Result documented in this encounter Visit Diagnoses Diagnosis Special screening for malignant neoplasms, colon Constipation Unspecified constipation Obesity Obesity, unspecified documented in this encounter Care Teams Custom Home Installer Relationship Specialty Start Date End Date Polina Rajput MD PCP - General 04/16/10 01/21/17 documented as of this encounter
--- OUTSIDE RECORDS SUMMARY | 2024-10-23 02:11 | XMS_ITS | Encounter Summary ---
Author Organization [facility] Healthcare Address [address] [place] [address] Care Team Providers Care Field Recruiter Name Role Phone Polina Rajput MD Primary Care Provider Encounter Details Date Type Department Care Team (Late st Contact Info) Description 08/20/2016 3:15 PM CDT - 08/20/2016 11:59 PM CDT Hospital Encounter [facility] Polina Rajput MD [address] [facility] [address] [place] [address] Type 2 diabetes mellitus with hyperglycemia ([facility]) Social History Tobacco Use Types Packs/Day Years Used Date Smoking Tobacco: Never Alcohol Use Standard Drinks/Week Comments No 0 (1 standard drink = 0.6 oz pur e alcohol) Comments Unknown Sex and Gender Information Value Date Recorded Sex Assigned at Not on file 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 Gender Identity Not on file Sexual [...] the evening meal 90 1 06/03/2016 03/29/2017 documented as of this encounter Plan of Treatment Not on file documented as of this encounter Procedures Procedure Name Priority Date/Time Associated Diagnosis Comments DISCHARGE LABORATORY CUMULATIVE REPORT 08/21/2016 SERUM ESTIMATED GLOMERULAR FILTRATION RATE Routine 08/20/2016 3:23 PM CDT BLOOD HEMOGLOBIN A1C Routine 08/20/2016 3:23 PM CDT PLASMA COMPREHENSIVE METABOLIC PANEL Routine 08/20/2016 10:23 AM CDT documented in this encounter Results * DISCHARGE LABORATORY CUMULATIVE REPORT (08/21/2016) Narrative 08/21/2016 Ordered by an unspecified provider. us Historical Provider LAB BLOOD ORDERABLES Dede l Result * Serum estimated glomerular filtration rate (08/20/2016 3:23 PM CDT) eGFR >60 ml/min/1.7 3 m2 CDR HISTORICAL RESULTS Comment: Interpretation of Estimated GFR (eGFR): Normal ?>/= 60 mL/min/1.73m2 Possible Chronic Kidney Disease ??15 - 59 mL/min/1.73m2 Possible Kidney Failure ?< 15 ??mL/min/1.73m2 If -[place] multiply value by 1.16. ??Estimated glomerular filtration rate is determined by the CKD-EPI equation recommended by the National Kidney Foundation (KDIGO 2012 Clinical Practice Guideline for the Evaluation and Management of Chronic Kidney Disease. ??Kidney Intnl Suppl Oct 2012;3:1). ??The CKD-EPI equation should not be used in acute renal failure or acute kidney injury and is not valid in children. Serum 08/20/2016 3:23 PM CDT Historical Provider LAB BLOOD ORDERABLES Dede l Result Performing Organization Address [facility] de Phone Number CDR HISTORICAL RESULTS * (ABNORMAL) Blood hemoglobin A1C (08/20/2016 3:23 PM CDT) Hgb A1C 7.1(H) 4.0 - 6.0 % CDR HISTORICAL RESULTS Estimated average glucose 157 mg/dl CDR HISTORICAL RESULTS Blood specimen (specimen) 08/20/2016 3:23 PM CDT Historical Provider LAB BLOOD ORDERABLES Dede l Result Performing Organization Address [facility] de Phone Number CDR HISTORICAL RESULTS * Plasma comprehensive metabolic panel (08/20/2016 10:23 AM CDT) Sodium 136 135 - 145 mmol/L CDR HISTORICAL RESULTS K, pl 3.9 3.5 - 5.1 mmol/L CDR HISTORICAL RESULTS Chloride 97 97 - 110 mmol/L CDR HISTORICAL RESULTS CO2 27 22 - 32 mmol/L CDR HISTORICAL RESULTS A. gap 16 8 - 16 mmol/L CDR HISTORICAL RESULTS Glucose 127 70 - 199 mg/dl CDR HISTORICAL RESULTS Comment: Interpretive Data Note:The glucose is assumed non fasting Fastin-99 mg/dL Random: ??70-199 mg/dL Either a fasting glucose > 126 mg/dL or a random glucose > 200 mg/dL plus symptoms is diagnostic of diabetes when confirmed on another day. Fasting values > 100 mg/dL but < 125 mg/dL are diagnostic of impaired fasting glucose. Current interpretive data was last revised on 2014. BUN 11.5 8.0 - 25.0 mg/dl CDR HISTORICAL RESULTS Creatinine 0.62 0.60 - 1.10 mg/dl CDR HISTORICAL RESULTS BUN/creat ratio 19 10 - 20 CDR HISTORICAL RESULTS Calcium 9.3 8.6 - 10.2 mg/dl CDR HISTORICAL RESULTS Protein, sr 7.6 6.0 - 8.4 g/dl CDR HISTORICAL RESULTS Alb 3.9 3.6 - 5.0 g/dl CDR HISTORICAL RESULTS Alk phos 113 40 - 130 Units/L CDR HISTORICAL RESULTS ALT 24 5 - 45 Units/L CDR HISTORICAL RESULTS AST 22 10 - 40 Units/L CDR HISTORICAL RESULTS Bilirubin 0.2 <=1.2 mg/dl CDR HISTORICAL RESULTS Plasma 08/20/2016 10:2 3 AM CDT Narrative CDR HISTORICAL RESULTS - 08/20/2016 11:42 AM CDT FAX RESULTS TO [phone] us Historical Provider LAB BLOOD ORDERABLES Dede dorsey Result CDR HISTORICAL RESULTS documented in this encounter Visit Diagnoses Diagnosis Type 2 diabetes mellitus with hyperglycemia (CMS/HCC) (HCC) documented in this encounter Care Teams Field Recruiter Relationship Specialty Start Date End Date Polina Rajput MD PCP - General 04/16/10 01/21/17 documented as of this encounter
--- OUTSIDE RECORDS SUMMARY | 2024-10-23 02:11 | XMS_ITS | Encounter Summary ---
Author Organization [facility] Address [address] [place] [address] Care Team Providers Care Planning Assistant Name Role Phone Polina Rajput MD Primary Care Provider Reason for Visit * Reason Comments Follow-up hot flashes Encounter Details Date Type Department Care Team (Late st Contact Info) Description 06/13/2018 4:45 PM CDT Office Visit [facility] [address] [place] [address] Polina Rajput MD [address] [address] Menopause syndrome (Primary Dx); Benign hypertension Social History Tobacco Use Types Packs/Day Years Used Date Smoking Tobacco: Never Smokeless Tobacco: Never Alcohol Use Standard Drinks/Week Comments No 0 (1 standard drink = 0.6 oz pur e alcohol) Comments No Sex and Gender Information Value Date Recorded Sex Assigned at Not on file 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 Sex Female 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 Gender Identity Not on file Sexual Orientation Not on file documented as of this encounter Last Filed Vital Signs Vital Sign Reading Time Taken Comments Blood Pressure 147/84 06/13/2018 5:05 PM CDT Pulse 79 06/13/2018 5:05 PM CDT Temperature - - Respiratory Rate - - Oxygen Saturation 100% 06/13/2018 5:05 PM CDT Inhaled Oxygen Concentration - - Weight 104.3 kg (230 lb) 06/13/2018 5:05 PM CDT Height 154.9 cm (5' 1 ) 06/13/2018 5:05 PM CDT Body Mass Index 43.46 06/13/2018 5:05 PM CDT documented in this encounter Ordered Prescriptions Prescription Sig Dispense Quantity Refills Last Filled Start Date End Date estrogens, conjugated, (PREMARIN) 0.625 mg tabletIndications: Vasomotor Symptoms associated with Menopause Take 1 tablet (0.625 mg total) by mouth daily. Take daily for 21 days then do not take for 7 days. 30 tablet 11 06/13/2018 06/30/2018 documented in this encounter Progress Notes * Polina Rajput MD - 06/13/2018 4:45 PM CDT Subjective/Objective Patient ID: Rosa Babb is a 52 y.o. female. Chief Complaint Follow-up (hot flashes) HPI she is here for follow up of her hot flashes and post menopausal sxs. Had history of partial hysterectomy greater than 10 years ago and recently began having hot flashes and night sweats. Workup including bloodwork confirms postmenopausal state. /She is motivated to try HRT to help with her sxsincluding fatigue, decreased libido, fluctuating mood in addition to the hot flashes. Review of Systems Constitutional: Positive for activity change and fatigue. Negative for appetite change and chills. Respiratory: Negative for choking, chest tightness, shortness of breath, wheezing and stridor. Cardiovascular: Negative for palpitations and leg swelling. Gastrointestinal: Negative for abdominal distention. Endocrine: Positive for heat intolerance. Genitourinary: Positive for dyspareunia. Negative for difficulty urinating, vaginal bleeding and vaginal discharge. Musculoskeletal: Negative for arthralgias, back pain and gait problem. Skin: Negative for color change and pallor. Allergic/Immunologic: Negative for environmental allergies and food allergies. Neurological: Negative for dizziness, facial asymmetry and headaches. Hematological: Negative for adenopathy. Does not bruise/bleed easily. Physical Exam Constitutional: She appears well-developed and well-nourished. No distress. HENT: Head: Atraumatic. Right Ear: External ear normal. Left Ear: External ear normal. Mouth/Throat: Oropharynx is clear and moist. No oropharyngeal exudate. Eyes: EOM are normal. Left eye exhibits no discharge. Neck: Neck supple. No JVD present. Cardiovascular: Normal rate and regular rhythm. Pulmonary/Chest: Breath sounds normal. Abdominal: Soft. Bowel sounds are normal. She exhibits no distension. There is no tenderness. Musculoskeletal: Normal range of motion. She exhibits no edema or tenderness. Neurological: She is alert. She displays normal reflexes. No cranial nerve deficit or sensory deficit. She exhibits normal muscle tone. Coordination normal. Skin: Skin is warm. Psychiatric: She has a normal mood and affect. Her behavior is normal. Rosa was seen today for follow-up. Diagnoses and all orders for this visit: Menopause syndrome Comments: reviewed labs. start premarin per emr. Benefits and side effects reviewed. follow up in 2 months. Benign hypertension Comments: improved control with current regimen. recheck in 2 months after starting HRT therapy. Other orders - estrogens, conjugated, (PREMARIN) 0.625 mg tablet; Take 1 tablet (0.625 mg total) by mouth daily.Take daily for 21 days then do not take for 7 days. documented in this encounter Plan of Treatment Not on file documented as of this encounter Visit Diagnoses Diagnosis Menopause syndrome- Primary Symptomatic menopausal or female climacteric states Benign hypertension Essential hypertension, benign documented in this encounter Care Teams Planning Assistant Relationship Specialty Start Date End Date Polina Rajput MD PCP - General 01/22/17 05/14/19 documented as of this encounter
--- OUTSIDE RECORDS SUMMARY | 2024-10-23 02:11 | XMS_ITS | Encounter Summary ---
Author Organization [facility] Healthcare Address [address] [place] [address] Care Team Providers Care Precision Aircraft Structure Assembler Name Role Phone Polina Rajput MD Primary Care Provider Encounter Details Date Type Department Care Team (Late st Contact Info) Description 08/01/2012 8:02 AM CDT - 08/01/2012 11:59 PM CDT Hospital Encounter [facility]CON[facility] Patel MD [address] [facility] [address] [place] [address] Essential hypertension Social History Tobacco Use Types Packs/Day Years Used Date Smoking Tobacco: Never Assessed Comments Unknown Sex and Gender Information Value Date Recorded Sex Assigned at Not on file Legal Sex Female 8:35 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
--- OUTSIDE RECORDS SUMMARY | 2024-10-23 02:11 | XMS_ITS | Encounter Summary ---
Author Organization [facility] Healthcare Address [address] [place] [address] Care Team Providers Care Public [employer] Teacher Name Role Phone Lucas Davies MD Primary Care Provider Encounter Details Date Type Department Care Team (Late st Contact Info) Description 10/26/2012 10:03 AM CONSULTING TECHNICAL MANAGER - 10/26/2012 11:59 PM CONSULTING TECHNICAL MANAGER Hospital Encounter [facility]CON[facility] Lucas Davies MD [address] [facility] [address] [place] [address] Other screening mammogram; Essential hypertension Social History Tobacco Use Types Packs/Day Years Used Date Smoking Tobacco: Never Assessed Comments Unknown Sex and Gender Information Value Date Recorded Sex Assigned at Not on file Legal Sex Female 8:35 AM CONSULTING TECHNICAL MANAGER Gender Identity Not on file Sexual [...] Date/Time Associated Diagnosis Comments DIGITAL MAMMOGRAPHY Routine 10/26/2012 1 0:45 AM CONSULTING TECHNICAL MANAGER SERUM THYROID-STIMULATING HORMONE (TSH) Routine 10/26/2012 10:15 AM CONSULTING TECHNICAL MANAGER SERUM LIPID PANEL Routine 10/26/2012 10: 15 AM CONSULTING TECHNICAL MANAGER SERUM COMPREHENSIVE METABOLIC PANEL Routine 10/26/2012 10:15 AM CONSULTING TECHNICAL MANAGER DISCHARGE LABORATORY CUMULATIVE REPORT Routine 10/26/2012 12:00 AM CONSULTING TECHNICAL MANAGER documented in this encounter Results * DIGITAL MAMMOGRAPHY (10/26/2012 10:45 AM CONSULTING TECHNICAL MANAGER) Anatomical Region Laterality Modality Breast Mammography 10/26/2012 10:4 5 AM CONSULTING TECHNICAL MANAGER Narrative 10/26/2012 3:01 PM CONSULTING TECHNICAL MANAGER Copy: ??Dr. Patricia Alcocer Screening Mamm Bi ??Acc#: ??[id number] Performed by: ?? DATE OF EXAM: ??Oct ??2012 CLINICAL HISTORY: Routine screening, no current complaints. RESULT: Four view screening mammogram is compared to a prior exam dated 10/21/11. ??There has been no interval change. ??The breasts are composed primarily of fat. ??There are no suspicious calcifications or mass lesions present. Digital technology was employed plus computer-aided detection software (R2) was utilized in interpretation of these images. IMPRESSION: 1. BI-RADS CATEGORY 1: NEGATIVE EXAM. 1. BI-RADS CATEGORY 1: NEGATIVE EXAM. 2. RECOMMEND ROUTINE FOLLOWUP. Interpreting Physician: ??DR AIRAM MERINO M.D. ??Read on: ??Oct ??2012 10:45A Transcribed by: ??VLR ??On: Oct ??2 2012 11:16A Approved Electronically by: ??WILBER Regan, DR ALEGRIA ??on: ??Piyush ??2 2012 3:01P Ordering DR: LUCAS DAVIES Attending : LUCAS DAVIES Procedure Note Provider, MD Coty - 02/11/2017 Copy: Dr. Patricia Alcocer Screening Mamm Bi Acc#: [id number] Performed by: DATE OF EXAM: Oct 26 2012 CLINICAL HISTORY: Routine screening, no current complaints. RESULT: Four view screening mammogram is compared to a prior exam dated 10/21/11.There has been no interval change. The breasts are composed primarily offat. There are no suspicious calcifications or mass lesions present.Digital technology was employed plus computer-aided detection software(R2) was utilized in interpretation of these images. IMPRESSION: 1. BI-RADS CATEGORY 1: NEGATIVE EXAM. 1. BI-RADS CATEGORY 1: NEGATIVE EXAM. 2. RECOMMEND ROUTINE FOLLOWUP. Interpreting Physician: DR AIRAM MERINO M.D. Read on: Oct 26 201210:45A Transcribed by: GEOFFREY On: Oct 26 2012 11:16A Approved Electronically by: WILBER Regan, DR ALEGRIA on: Oct 26 20123:01P Ordering DR: LUCAS DAVIES Attending DR: LUCAS DAVIES us Historical Provider IMG MAMMO PROCEDURES Dede l Result * Serum thyroid-stimulating hormone (TSH) (10/26/2012 10:15 AM CONSULTING TECHNICAL MANAGER) TSH 1.61 0.35 - 4.80 mcIUnits/ml HISTORICAL RESULTS Serum 10/26/2012 10:1 5 AM CONSULTING TECHNICAL MANAGER Lucas Davies MD LAB BLOOD ORDERABLES F inal Result HISTORICAL RESULTS * Serum lipid panel (10/26/2012 10:15 AM CONSULTING TECHNICAL MANAGER) Cholesterol 197 mg/dl HISTORIC AL RESULTS Comment: DESIRABLE = LESS THAN 200 MG/DL BORDERLINE HIGH = 200-239 MG/DL HIGH= GREATER THAN 239 MG/DL Triglycerides 105 mg/dl HISTOR ICAL RESULTS Comment: NORMAL = LESS THAN 150 MG/DL BORDERLINE HIGH = 150-199 MG/DL HIGH = 200-499 MG/DL VERY HIGH = GREATER THAN OR EQUAL TO 500 MG/DL HDL 56 mg/dl HISTORICAL RESULTS Comment: LOW HDL CHOLESTEROL = Less than 40 mg/dL NORMAL HDL CHOLESTEROL = 40-59 mg/dL HIGH HDL CHOLESTEROL = Greater than 59 mg/dL LDL, direct 137 mg/dl HISTORIC AL RESULTS Comment: OPTIMAL = Less than 100 mg/dl NEAR OPTIMAL/ABOVE OPTIMAL = 100-129 mg/dl BORDERLINE HIGH = 130-159 mg/dl HIGH = 160-189 mg/dl VERY HIGH = Greater than 189 mg/dl Serum 10/26/2012 10:1 5 AM CONSULTING TECHNICAL MANAGER Lucas Davies MD LAB BLOOD ORDERABLES F inal Result Performing Organization Address [facility] Co de Phone Number HISTORICAL RESULTS * (ABNORMAL) Serum comprehensive metabolic panel (10/26/2012 10:15 AM CONSULTING TECHNICAL MANAGER) BUN 11.0 6.0 - 23.0 mg/dl HISTORICAL RESULTS Sodium 137 134 - 143 mmol/L HISTORICAL RESULTS Potassium, sr 3.8 3.4 - 5.0 mmol/L HISTORICAL RESULTS Chloride 103 99 - 108 mmol/L HISTORICAL RESULTS CO2 24 23 - 32 mmol/L HISTORICAL RESULTS Glucose, fasting 97 70 - 110 mg/dl HISTORICAL RESULTS Creatinine 0.92 0.60 - 1.30 mg/dl HISTORICAL RESULTS BUN/creat ratio 12 10 - 20 HIST ORICAL RESULTS A. gap 13 7 - 14 mmol/L HISTORICAL RESULTS Protein, sr 7.9 6.4 - 8.0 g/dl HISTORICAL RESULTS Alb 3.4 3.3 - 4.5 g/dl HISTORICAL RESULTS Alb/glob ratio 0.8(L) 1.1 - 1.8 HISTO RICAL RESULTS Calcium 9.2 8.6 - 9.8 mg/dl HISTORICAL RESULTS Bilirubin 0.3 0.0 - 1.1 mg/dl HISTORICAL RESULTS Alk phos 97 44 - 125 Units/L HISTORICAL RESULTS AST 7 4 - 32 Units/L HISTORICAL RESULTS ALT 17 16 - 66 Units/L HISTORICAL RESULTS Serum 10/26/2012 10:1 5 AM CONSULTING TECHNICAL MANAGER Lucas Davies MD LAB BLOOD ORDERABLES F inal Result HISTORICAL RESULTS * Discharge Laboratory Cumulative Report (10/26/2012 12:00 AM CONSULTING TECHNICAL MANAGER) 10/26/2012 Narrative HISTORICAL RESULTS - 10/28/2012 12:24 AM CONSULTING TECHNICAL MANAGER Patient No: [id number] ? [facility] Patient Name: KEVIN CHAKRABORTY ? [facility] Age: 47 YRS ?: 1965 ?Sex:F ?[address] )[phone] ?? Adm Dt: 10/26/2012 ?[place], [place] ??[address] Created: 10/28/2012 ??0024 ?? Pt. Type: R ? Discharge Dt: 10/26/2012 ? Pathologists: Imelda Fernandez MD Admit Attend Dr: LUCAS DAVIES MD ? GENERAL CHEMISTRY ?Collection Date: ?10/26/12 ?Collection Time: ?1015 ? Ref Range: ?? Units: [134-143] ?? MMOL/L ? SODIUM ? 137 [3.4-5.0] ?? MMOL/L ? POTASSIUM ?3.8 [99.0-108.0] MMOL/L ? CHLORIDE ? 103.0 [23.0-32.0] ??MMOL/L ? TOTAL CO2 ? 24.5 ?? [7-14] ?MMOL/L ? ANION GAP ? 13 ??[70-110] ?? MG/DL ?GLUCOSE FASTING ? 97 [6.4-8.0] ?? G/DL ? TOTAL PROTEIN ?7.9 [3.3-4.5] ?? G/DL ? ALBUMIN ?3.4 [1.1-1.8] ?A/G RATIO ?0.8 L [8.6-9.8] ?? MG/DL ?CALCIUM ?9.2 [0.0-1.1] ?? MG/DL ?BILI TOTAL ? 0.3 ??[44-125] ?? U/L ?ALK PHOS ?97 ?? [4-32] ?U/L ?AST(SGOT) ?7 ??[16-66] ?U/L ?ALT(SGPT) ? 17 [6.0-23.0] ??MG/DL ?BUN ? 11.0 ??[10-20] ? B/C RATIO ? 12 [0.60-1.30] ??MG/DL ?CREATININE ?0.92 Footnotes and Symbols: L = Low ?? CONTINUED ?Page: ?? 1 Patient No: [id number] ? [facility] Patient Name: KEVIN CHAKRABORTY ? [facility] Healthcare Age: 47 YRS ?: 1965 ?Sex:F ?[address] )[phone] ?? Adm Dt: 10/26/2012 ?[place], [place] ??[address] Created: 10/28/2012 ??0024 ?? Pt. Type: R ? Discharge Dt: 10/26/2012 ? Pathologists: Imelda Fernandez MD Admit Attend Dr: LUCAS DAVIES MD ?LIPIDS ?Collection Date: ?10/26/12 ?Collection Time: ?1015 ? Ref Range: ?? Units: ? MG/DL ?LDL DIRECT ? 137 f ? MG/DL ?CHOLESTEROL ?197 f ? MG/DL ?HDL CHOLESTEROL ? 56 f ? MG/DL ?TRIGLYCERIDES ?105 f Footnotes and Symbols: f = Footnote LDL DIRECT (11/06/10 -- Current) OPTIMAL = Less than 100 mg/dl NEAR OPTIMAL/ABOVE OPTIMAL = 100-129 mg/dl BORDERLINE HIGH = 130-159 mg/dl HIGH = 160-189 mg/dl VERY HIGH = Greater than 189 mg/dl CHOLESTEROL (11/06/10 -- Current) DESIRABLE = LESS THAN 200 MG/DL BORDERLINE HIGH = 200-239 MG/DL HIGH= GREATER THAN 239 MG/DL HDL CHOLESTEROL (11/06/10 -- Current) LOW HDL CHOLESTEROL = Less than 40 mg/dL NORMAL HDL CHOLESTEROL = 40-59 mg/dL HIGH HDL CHOLESTEROL = Greater than 59 mg/dL TRIGLYCERIDES (12/31/06 -- Current) NORMAL = LESS THAN 150 MG/DL BORDERLINE HIGH = 150-199 MG/DL HIGH = 200-499 MG/DL VERY HIGH = GREATER THAN OR EQUAL TO 500 MG/DL ?? CONTINUED ?Page: ?? 2 Patient No: [id number] ? [facility] Patient Name: KEVIN CHAKRABORTY ? [facility] Age: 47 YRS ?: 1965 ?Sex:F ?[address] )[phone] ?? Adm Dt: 10/26/2012 ?[place], [place] ??[address] Created: 10/28/2012 ??0024 ?? Pt. Type: R ? Discharge Dt: 10/26/2012 ? Pathologists: Imelda Fernandez MD Admit Attend Dr: LUCAS DAVIES MD ?THYROID FUNCTION TESTS ?Collection Date: ?10/26/12 ?Collection Time: ?1015 ? Ref Range: ?? Units: [0.35-4.80] ??uIU/ML ? TSH ? 1.61 ?? END OF CHART ? Page: ?? 3 us Historical Provider LAB BLOOD ORDERABLES Dede l Result HISTORICAL RESULTS documented in this encounter Visit Diagnoses Diagnosis Other screening mammogram Essential hypertension Unspecified essential hypertension documented in this encounter Care Teams Public School Teacher Relationship Specialty Start Date End Date Lucas Davies MD PCP - General 04/16/10 01/21/17 documented as of this encounter
--- OUTSIDE RECORDS SUMMARY | 2024-10-23 02:11 | XMS_ITS | Encounter Summary ---
Author Organization [facility] Address [address] [place] [address] Care Team Providers Care Splicer Operator Name Role Phone Polina Rajput MD Primary Care Provider Encounter Details Date Type Department Care Team (Late st Contact Info) Description 03/18/2017 Orders Only [facility] [address] [place] [address] Polina Rajput MD [address] [facility] [address] [place] [address] Social History Tobacco Use Types Packs/Day Years Used Date Smoking Tobacco: Never Alcohol Use Standard Drinks/Week Comments No 0 (1 standard drink = 0.6 oz pur e alcohol) Comments Unknown Sex and Gender Information Value Date Recorded Sex Assigned at Not on file Legal Sex Female 8:35 AM CALL CENTER DIRECTOR Gender Identity Not on file Sexual Orientation Not on file documented as of this encounter Plan of Treatment Not on file documented as of this encounter Procedures Procedure Name Priority Date/Time Associated Diagnosis Comments FOLLICLE STIMULATING HORMONE Routine 03/18/2017 8:33 AM CDT documented in this encounter Results * Follicle stimulating hormone (03/18/2017 8:33 AM CDT) FSH 37.8 mIUnits/mL JEFE LOVELL Comment: Interpretive Data Reference Interval Female ??<10 years ? 1 - 19 ??mIU/ml ??Mid-Follicular ?4 - 9 ?? mIU/ml ??Mid-Cycle ? 4 - 23 ??mIU/ml ??Mid-Luteal ?2 - 5 ?? mIU/ml ??Post Menopausal ??16 - 114 mIU/ml -- Male ?1 - 19 ??mIU/ml Current interpretive data was last revised on 2016 Blood specimen (specimen) 03/18/2017 8:33 AM CDT 03/18/2017 8:33 AM CDT Polina Rajput MD LAB BLOOD ORDERABLES F inal Result [facility] [address] [facility] Department [place] [address] documented in this encounter Visit Diagnoses Not on filedocumented in this encounter Care Teams Splicer Operator Relationship Specialty Start Date End Date Polina Rajput MD PCP - General 01/22/17 05/14/19 documented as of this encounter
--- OUTSIDE RECORDS SUMMARY | 2024-10-23 02:11 | XMS_ITS | Encounter Summary ---
Author Organization [facility] Healthcare Address [address] [place] [address] Care Team Providers Care Medical Record Technician Name Role Phone Polina Rajput MD Primary Care Provider Encounter Details Date Type Department Care Team (Late st Contact Info) Description 10/31/2013 11:48 AM OPTICAL ENGINEERING TECHNICIAN - 10/31/2013 11:59 PM OPTICAL ENGINEERING TECHNICIAN Hospital Encounter [facility] CLINCONV Cathy Payne MD [address] [place] [address] Type 2 or unspecified type diabetes mellitus Social History Tobacco Use Types Packs/Day Years Used Date Smoking Tobacco: Never Assessed Comments Unknown Sex and Gender Information Value Date Recorded Sex Assigned at Not on file Legal Sex Female 8:35 AM OPTICAL ENGINEERING TECHNICIAN Gender Identity Not on file Sexual [...] Date/Time Associated Diagnosis Comments URINE MICROALBUMIN Routine 10/31/2013 11 :52 AM OPTICAL ENGINEERING TECHNICIAN PLASMA LIPID PANEL Routine 10/31/2013 11 :52 AM OPTICAL ENGINEERING TECHNICIAN PLASMA BASIC METABOLIC PANEL Routine 10/31/2013 11:52 AM OPTICAL ENGINEERING TECHNICIAN BLOOD HEMOGLOBIN A1C Routine 10/31/2013 5:52 AM OPTICAL ENGINEERING TECHNICIAN DISCHARGE LABORATORY CUMULATIVE REPORT 10/31/2013 documented in this encounter Results * Urine microalbumin (10/31/2013 11:52 AM OPTICAL ENGINEERING TECHNICIAN) Creatinine, ur 238 20 - 300 mg/dl HISTORICAL RESULTS Microalbumin 4.0 0.0 - 29.9 mcg/ml HISTORICAL RESULTS Microalbumin/crea t ratio 2 0 - 30 mcg/mg Cr HISTORICAL RESULTS Comment: Microalbumin/Creatinine Ratio Reference Ranges: Normal: ? < 30 mcg/mg Microalbuminuria: ? 30 - 300 mcg/mg Clinical Albuminuria: ??300 mcg/mg Urine 10/31/2013 11:5 2 AM OPTICAL ENGINEERING TECHNICIAN us Cathy Shine MD LAB BLOOD ORDERABLES Final Result HISTORICAL RESULTS * (ABNORMAL) Plasma basic metabolic panel (10/31/2013 11:52 AM OPTICAL ENGINEERING TECHNICIAN) BUN 10 8 - 24 mg/dl HISTORICAL RESULTS Glucose 119 70 - 199 mg/dl HISTORICAL RESULTS Sodium 134(L) 135 - 145 mmol/L HISTORICAL RESULTS K, pl 4.0 3.5 - 5.1 mmol/L HISTORICAL RESULTS Chloride 102 100 - 114 mmol/L HISTORICAL RESULTS CO2 24 22 - 32 mmol/L HISTORICAL RESULTS Creatinine 0.87 0.60 - 1.30 mg/dl HISTORICAL RESULTS Calcium 9.3 8.4 - 10.5 mg/dl HISTORICAL RESULTS A. gap 12 8 - 16 mmol/L HISTORICAL RESULTS eGFR 69 90 - 200 ml/min/1.7 3 m2 HISTORICAL RESULTS Comment: If this individual is -Kittitian, multiply result by 1.21 Repeated results of less than 60 is indicative of chronic kidney disease. MDRD formula has not been validated on individuals greater than 70 years old. Plasma 10/31/2013 11:5 2 AM OPTICAL ENGINEERING TECHNICIAN Cathy Shine MD LAB BLOOD ORDERABLES Final Result Performing Organization Address [facility] Co de Phone Number HISTORICAL RESULTS * Plasma lipid panel (10/31/2013 11:52 AM OPTICAL ENGINEERING TECHNICIAN) Pathologist [facility] Cholesterol 198 100 - 200 mg/dl HISTORICAL RESULTS Triglycerides 119 10 - 150 mg/dl HISTORICAL RESULTS HDL 48 40 - 59 mg/dl HISTORICAL RESULTS LDL 126 60 - 129 mg/dl HISTORICAL RESULTS Plasma 10/31/2013 11:5 2 AM OPTICAL ENGINEERING TECHNICIAN Cathy Shine MD LAB BLOOD ORDERABLES Final Result Performing Organization Address [facility] de Phone Number HISTORICAL RESULTS * (ABNORMAL) Blood hemoglobin A1C (10/31/2013 5:52 AM OPTICAL ENGINEERING TECHNICIAN) Hgb A1C 6.1(H) 4.0 - 6.0 % HISTORICAL RESULTS Comment: Hemoglobin A1c ADA Interpretive Guidelines: ?<7% ?? Glycemia controlled ?>8% ?? Hyperglycemia, additional action recommended ?Shree Immunochemical Method Blood specimen (specimen) 10/31/2013 5:52 AM OPTICAL ENGINEERING TECHNICIAN Narrative HISTORICAL RESULTS - 10/31/2013 3:25 PM OPTICAL ENGINEERING TECHNICIAN Test performed at [facility], [address] [place] [address], [facility], [facility]. Cathy Shine MD LAB BLOOD ORDERABLES Final Result HISTORICAL RESULTS * DISCHARGE LABORATORY CUMULATIVE REPORT (10/31/2013) Narrative 10/31/2013 Ordered by an unspecified provider. us Historical Provider LAB BLOOD ORDERABLES Dede l Result documented in this encounter Visit Diagnoses Diagnosis Type 2 or unspecified type diabetes mellitus documented in this encounter Care Teams Medical Record Technician Relationship Specialty Start Date End Date Polina Rajput MD PCP - General 04/16/10 01/21/17 documented as of this encounter
--- OUTSIDE RECORDS SUMMARY | 2024-10-23 02:11 | XMS_ITS | Encounter Summary ---
Author Organization [facility] Healthcare Address [address] [place] [address] Care Team Providers Care Extruder Name Role Phone Atiya Polina Schaefer MD Primary Care Provider Encounter Details Date Type Department Care Team (Late st Contact Info) Description 10/27/2013 3:55 PM BAR 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 - 10/27/2013 11:59 PM BAR 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 Hospital Encounter [facility] CLINCONV Yumiko Seymour, DO [address] [place] [address] Urinary tract infection Social History Tobacco Use Types Packs/Day Years Used Date Smoking Tobacco: Never Assessed Comments Unknown Sex and Gender Information Value Date Recorded Sex Assigned at Not on file Legal Sex Female 8:35 AM BAR 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 Gender Identity Not on file [...] Name Priority Date/Time Associated Diagnosis Comments URINE MICROBIOLOGY Routine 10/27/2013 12 :00 AM BAR 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 documented in this encounter Results * Urine Microbiology (10/27/2013 12:00 AM BAR 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) 10/27/2013 Narrative HISTORICAL RESULTS - 10/29/2013 4:43 PM BAR 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 [facility] ?Patient Name: ?KEVIN CHAKRABORTY ?Med. Rec#: ?? [id number] ?Pt. Acct.#: ??[id number] ?Birthdate: ?? 1965 ?Age / Sex: ?? 48Y / F ?Location: ?[facility] (Laborato ?Admit Date: ??10/27/2013 ?Discharge Date: ? 10/27/2013 ?Doctor: ?Yumiko Seymour, DO ?Patient Type: ? Ref Lab - Insuran Culture, Urine ? Collected: 10/27/2013 15:30 Specimen: Urine ?? Specimen Source: Clean Voided Specimen Status: Final ??Last Update: 10/29/2013 11:57 Organism ?? 10,000 - 50,000 cfu/ml of ?? multiple Gram positive organisms Organism ?? 10,000 - 50,000 cfu/ml of ?? yeast Comment ? Mixed bacterial types present. ??Please call within 7 ?? days if further identification or sensitivity testing is ?? indicated. Suggest repeat specimen. us Historical Provider LAB MICROBIOLOGY - GENERA L ORDERABLES Final Result HISTORICAL RESULTS documented in this encounter Visit Diagnoses Diagnosis Urinary tract infection Urinary tract infection, site not specified documented in this encounter Care Teams Extruder Relationship Specialty Start Date End Date Polina Rajput MD PCP - General 04/16/10 01/21/17 documented as of this encounter
--- OUTSIDE RECORDS SUMMARY | 2024-10-23 02:11 | XMS_ITS | Encounter Summary ---
Author Organization [facility] Healthcare Address [address] [facility] [address] [address] Care Team Providers Care Roof Cement And Paint Maker Name Role Phone Polina Rajput MD Primary Care Provider Encounter Details Date Type Department Care Team (Late st Contact Info) Description 10/10/2011 9:29 AM SENIOR CHEMICAL PROCESS ENGINEER - 10/10/2011 11:59 PM SENIOR CHEMICAL PROCESS ENGINEER Hospital Encounter [facility]IN[facility] Polina Rajput MD [address] [facility] [address] [place] [address] Benign essential hypertension; Type 2 or unspecified type diabetes mellitus Social History Tobacco Use Types Packs/Day Years Used Date Smoking Tobacco: Never Assessed Comments Unknown Sex and Gender Information Value Date Recorded Sex Assigned at Not on file Legal Sex Female 8:35 AM SENIOR CHEMICAL PROCESS ENGINEER Gender Identity Not on file Sexual Orientation [...] of this encounter Visit Diagnoses Diagnosis Benign essential hypertension Essential hypertension, benign Type 2 or unspecified type diabetes mellitus documented in this encounter Care Teams Roof Cement And Paint Maker Relationship Specialty Start Date End Date Polina Rajput MD PCP - General 04/16/10 01/21/17 documented as of this encounter
--- OUTSIDE RECORDS SUMMARY | 2024-10-23 02:11 | XMS_ITS | Encounter Summary ---
Author Organization [facility] Address [address] [place] [address] Care Team Providers Care Estate Agent Name Role Phone Polina Rapjut MD Primary Care Provider Reason for Visit * Reason Comments Test Results Lab results Insomnia Diabetes She stopped her metf ormin Encounter Details Date Type Department Care Team (Late st Contact Info) Description 03/29/2017 2:00 PM CDT Office Visit [facility] [address] [place] [address] Polina Rajput MD [address] [address] Type 2 diabetes mellitus without complication, unspecified skilled nursing insulin use status (Primary Dx) Social History Tobacco Use Types Packs/Day Years Used Date Smoking Tobacco: Never Alcohol Use Standard Drinks/Week Comments No 0 (1 standard drink = 0.6 oz pur e alcohol) Comments Unknown Sex and Gender Information Value Date Recorded Sex Assigned at Not on file Legal Sex Female 8:35 AM SPECIAL EDUCATION PARA PROFESSIONAL Gender Identity Not on file Sexual Orientation Not on file documented as of this encounter Last Filed Vital Signs Vital Sign Reading Time Taken Comments Blood Pressure 144/81 03/29/2017 2:09 PM CDT Pulse 104 03/29/2017 2:09 PM CDT Temperature - - Respiratory Rate - - Oxygen Saturation - - Inhaled Oxygen Concentration - - Weight 103.8 kg (228 lb 12.8 oz) 03/29/2017 2:09 PM CDT Height - - Body Mass Index 43.23 03/15/2017 3:14 PM CDT documented in this encounter Ordered Prescriptions Prescription Sig Dispense Quantity Refills Last Filled Start Date End Date glipiZIDE (GLUCOTROL) 5 mg tabletIndications: type 2 diabetes mellitus Take 1 tablet (5 mg total) by mouth daily. 30 tablet 03/29/2017 04/21/2017 documented in this encounter Progress Notes * Polina Rajput MD - 03/29/2017 2:00 PM CDT Subjective/Objective Patient ID: Rosa Babb is a 51 y.o. female. Chief Complaint Results (Lab results ); Insomnia; and Diabetes (She stopped her metformin ) She is here for follow-up of her most recent laboratory results and check of her diabetes. She alsohad antibiotics for recent skin infection. Overall, she is doing better. She notices improvement inher skin as well as itching. She has stop the metformin and has not had further episodes of diarrhea. Still continuing to have some hot flashes. Had laboratory studies done recently which did show evidence of perimenopausal/postmenopausal status. She denies chest pain shortness of breath or other associated symptoms. Review of Systems Constitutional: Positive for fatigue. Negative for activity change and appetite change. Respiratory: Negative for shortness of breath and wheezing. Cardiovascular: Negative for chest pain, palpitations and leg swelling. Gastrointestinal: Negative for abdominal distention and abdominal pain. Endocrine: Positive for heat intolerance. Negative for cold intolerance. Genitourinary: Negative for difficulty urinating. Musculoskeletal: Negative for arthralgias. Psychiatric/Behavioral: The patient is not nervous/anxious. Physical Exam Constitutional: She appears well-developed and well-nourished. Neck: Normal range of motion. Cardiovascular: Normal rate. Psychiatric: She has a normal mood and affect. Assessment/Plan Diagnoses and all orders for this visit: 1. Type 2 diabetes mellitus without complication, unspecified skilled nursing insulin use status (Primary) - Hemoglobin A1c; Future - Comprehensive metabolic panel; Future - Lipid panel; Future Other orders - glipiZIDE (GLUCOTROL) 5 mg tablet; Take 1 tablet (5 mg total) by mouth daily. documented in this encounter Plan of Treatment Not on file documented as of this encounter Results * Lipid panel (10/05/2017 3:55 PM SPECIAL EDUCATION PARA PROFESSIONAL) Cholesterol 188 100 - 200 mg/dL [facility] Comment: Interpretive Data Desirable: ?<200 mg/dL Borderline high: ??200-239 mg/dL High: ? >240 mg/dL Current interpretive data was last revised on 2016. Triglycerides 136 10 - 150 mg/dL [facility] Comment: Interpretive [...] LDL, calculated 109 60 - 129 mg/dL [facility] Comment: Interpretive Data Optimal: ? < 100 mg/dL Near Optimal: ?100 - 129 mg/dL Borderline High: ?? 130 - 159 mg/dL High: ?> 160 mg/dL Current interpretive data was last revised on 2016. Non-HDL Cholesterol 136 mg/dL [facility] Comment: Interpretive Data When triglycerides are >200 mg/dL, non-HDL C is a secondary target of therapy, with a goal 30 mg/dL higher than the identified LDL-C goal. Current interpretive data was last revised 2016. Blood specimen (specimen) 10/05/2017 3:55 PM SPECIAL EDUCATION PARA PROFESSIONAL 10/05/2017 7:28 PM SPECIAL EDUCATION PARA PROFESSIONAL Narrative [facility] - 10/05/2017 8:13 PM SPECIAL EDUCATION PARA PROFESSIONAL Polina Rajput MD LAB BLOOD ORDERABLES F inal Result [facility] [address] Department [place] [address] * Comprehensive metabolic panel (10/05/2017 3:55 PM SPECIAL EDUCATION PARA PROFESSIONAL) Sodium 141 135 - 145 mmol/L [facility] [...] Protein, pl 7.3 6.0 - 8.3 g/dL [facility] Anion gap 11 8 - 16 mmol/L [facility] Blood specimen (specimen) 10/05/2017 3:55 PM SPECIAL EDUCATION PARA PROFESSIONAL 10/05/2017 7:28 PM SPECIAL EDUCATION PARA PROFESSIONAL Narrative [facility] - 10/05/2017 8:13 PM SPECIAL EDUCATION PARA PROFESSIONAL Polina Rajput MD LAB BLOOD ORDERABLES F inal Result Performing Organization Address [facility] Co de Phone Number KAYLAMIGUE [phone] [address] [facility] [place], [place] [id number] * (ABNORMAL) Hemoglobin A1c (10/05/2017 3:55 PM SPECIAL EDUCATION PARA PROFESSIONAL) Hgb A1C 7.6(H) 4.0 - 6.0 % [facility] Comment: Interpretive Data Hemoglobin A1c ADA Interpretive Guidelines ??<7% ?? Glycemia controlled ??>8% ?? Hyperglycemia, additional action recommended Shree Immunochemical Method Current interpretive data was last revised on 2016 Testing performed by: [facility], [address], [place] [address] Estimated Average Glucose 171 mg/dL [facility] Comment:Testing performed by : [facility], [address], [place] [address] Blood specimen (specimen) 10/05/2017 3:55 PM SPECIAL EDUCATION PARA PROFESSIONAL 10/06/2017 7:45 AM SPECIAL EDUCATION PARA PROFESSIONAL Narrative [facility] - 10/06/2017 8:22 AM SPECIAL EDUCATION PARA PROFESSIONAL Polina Rajput MD LAB BLOOD ORDERABLES F inal Result Performing Organization Address [facility] de Phone Number JEFE [phone] [place] [address] documented in this encounter Visit Diagnoses Diagnosis Type 2 diabetes mellitus without complication, unspecified skilled nursing insulin use status- Primary Type 2 diabetes mellitus without complication, unspecified long chain beamer insulin use status documented in this encounter Discontinued Medications Medication Sig Discontinue Reason Start Date End Da te metFORMIN XR (GLUCOPHAGE XR) 750 mg 24 hr tablet take 1 tablet by oral route every day with the evening meal Non-compliance 06/03/2016 03/29/2017 sulfamethoxazole-trimeth oprim (BACTRIM DS) 800-160 mg per tablet take 1 tablet by oral route every 12 hours Non-compliance 03/15/2017 03/29/2017 meloxicam (MOBIC) 7.5 mg tablet TAKE ONE TABLET BY MOUTH TWICE DAILY FOR PAIN/ARTHRITIS Non-compliance 12/24/2014 03/29/2017 documented as of this encounter Care Teams Estate Agent Relationship Specialty Start Date End Date Polina Rajput MD PCP - General 01/22/17 05/14/19 documented as of this encounter
--- OUTSIDE RECORDS SUMMARY | 2024-10-23 02:11 | XMS_ITS | Encounter Summary ---
Author Organization [facility] Medical [facility] Address [address] [place] [address] Care Team Providers Care Document Management Consultant Name Role Phone Polina Rajput MD Primary Care Provider Encounter Details Date Type Department Care Team (Late st Contact Info) Description 03/18/2017 Orders Only [facility] [address] [place] [address] Polina Rajput MD [address] [facility] [address] [place] [address] Social History Tobacco Use Types Packs/Day Years Used Date Smoking Tobacco: Never Alcohol Use Standard Drinks/Week Comments No 0 (1 standard drink = 0.6 oz pur e alcohol) Comments Unknown Sex and Gender Information Value Date Recorded Sex Assigned at Not on file Legal Sex Female 8:35 AM ENCAPSULATOR Gender Identity Not on file Sexual Orientation Not on file documented as of this encounter Plan of Treatment Not on file documented as of this encounter Procedures Procedure Name Priority Date/Time Associated Diagnosis Comments COMPREHENSIVE METABOLIC PANEL Routine 03/18/2017 8:33 AM CDT documented in this encounter Results * Comprehensive metabolic panel (03/18/2017 8:33 AM CDT) Sodium 139 135 - 145 mmol/L [facility] Potassium, pl 4.5 3.5 - 5.1 mmol/L [facility] CO2 28 22 - 32 mmol/L [facility] BUN 12 8 - 24 mg/dL [facility] Glucose 112 70 - 199 mg/dL [facility] Creatinine 0.98 0.60 - 1.30 mg/dL [facility] Calcium 9.4 8.4 - 10.5 mg/dL [facility] Chloride 102 100 - 114 mmol/L [facility] Albumin 3.4 3.2 - 4.8 g/dL [facility] AST 16 7 - 40 Units/L [facility] ALT 18 1 - 45 Units/L [facility] Alk phos 74 30 - 110 Units/L [facility] Bilirubin, total 0.60 0.10 - 1.30 mg/dL [facility] Protein, pl 7.5 6.0 - 8.3 g/dL [facility] Anion gap 14 8 - 16 mmol/L [facility] Blood specimen (specimen) 03/18/2017 8:33 AM CDT 03/18/2017 8:33 AM CDT Polina Rajput MD LAB BLOOD ORDERABLES F inal Result [facility] [address] Department [place] [address] documented in this encounter Visit Diagnoses Not on filedocumented in this encounter Care Teams Document Management Consultant Relationship Specialty Start Date End Date Polina Rajput MD PCP - General 01/22/17 05/14/19 documented as of this encounter
--- OUTSIDE RECORDS SUMMARY | 2024-10-23 02:11 | XMS_ITS | Encounter Summary ---
Author Organization [facility] Healthcare Address [address] [place] [address] Care Team Providers Care Electrical Superintendent Name Role Phone Polina Rajput MD Primary Care Provider Encounter Details Date Type Department Care Team (Late st Contact Info) Description 10/21/2011 7:19 AM BOUNTY HUNTER - 10/21/2011 11:59 PM BOUNTY HUNTER Hospital Encounter [facility] Polina Rajput MD [address] [facility] [address] [place] [address] Other screening mammogram Social History Tobacco Use Types Packs/Day Years Used Date Smoking Tobacco: Never Assessed Comments Unknown Sex and Gender Information Value Date Recorded Sex Assigned at Not on file Legal Sex Female 8:35 AM BOUNTY HUNTER Gender Identity Not on file Sexual Orientation [...] as of this encounter Visit Diagnoses Diagnosis Other screening mammogram documented in this encounter Care Teams Electrical Superintendent Relationship Specialty Start Date End Date Polina Rajput MD PCP - General 04/16/10 01/21/17 documented as of this encounter
--- OUTSIDE RECORDS SUMMARY | 2024-10-23 02:12 | XMS_ITS | Encounter Summary ---
Author Organization [facility] Healthcare Address [address] [place] [address] Care Team Providers Care General Helper Name Role Phone Polina Rajput MD Primary Care Provider Encounter Details Date Type Department Care Team (Late st Contact Info) Description 04/08/2009 9:28 AM CDT - 04/08/2009 11:59 PM CDT Hospital Encounter [facility]ston Benign essential hypertension; Other depressive disorder; Impaired fasting glucose Social History Tobacco Use Types Packs/Day Years Used Date Smoking Tobacco: Never Assessed Comments Unknown Sex and Gender Information Value Date Recorded Sex Assigned at Not on file 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
--- OUTSIDE RECORDS SUMMARY | 2024-10-23 02:12 | XMS_ITS ---
Author Organization [facility] Address [address] [place] [address] Care Team Providers Care Athletic Equipment Manager Name Role Phone Rosa Shi MD Primary Care Provider [phone] Transplant Episode Kidney Potential Donor [facility] ([place], [place]) - [facility] Referred on 01/23/2014 Marked as Ineligible on 03/21/2018 Kidney CoordinatorHistorical ProviderMD Fax: N/A Email: N/A Care Team Name Role Phone Fax Email Historical MD Marcy Kidney Coordinator [phone] N/ A N/A Events Pre-Donation Referred: 01/23/2014
--- OUTSIDE RECORDS SUMMARY | 2024-10-23 02:12 | XMS_ITS | Encounter Summary ---
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
--- OUTSIDE RECORDS SUMMARY | 2024-10-23 02:12 | XMS_ITS | Encounter Summary ---
Author Organization [facility] Healthcare Address [address] [place] [address] Care Team Providers Care Checker Name Role Phone Polina Rajput MD Primary Care Provider Encounter Details Date Type Department Care Team (Late st Contact Info) Description 12/20/2007 12:01 AM FENCE MAKER - 12/20/2007 11:59 PM FENCE MAKER Hospital Encounter [facility]CON[facility] El[facility] Social History Tobacco Use Types Packs/Day Years Used Date Smoking Tobacco: Never Assessed Comments Unknown Sex and Gender Information Value Date Recorded Sex Assigned at Not on file Legal Sex Female 8:35 AM FENCE MAKER Gender Identity Not on file Sexual [...] on filedocumented in this encounter Care Teams Checker Relationship Specialty Start Date End Date Polina Rajput MD PCP - General 06/14/07 03/22/08 documented as of this encounter
--- OUTSIDE RECORDS SUMMARY | 2024-10-23 02:12 | XMS_ITS | Encounter Summary ---
Author Organization [facility] Healthcare Address [address] [place] [address] Care Team Providers Care Stoner Hand Name Role Phone Atiya Polina Schaefer MD Primary Care Provider Encounter Details Date Type Department Care Team (Late st Contact Info) Description 05/28/2011 8:05 AM CDT - 05/28/2011 11:59 PM CDT Hospital Encounter [facility] Type 2 or unspecified type diabetes mellitus; Benign essential hypertension; Mixed hyperlipidemia; Pain in joint, multiple sites Social History Tobacco Use Types Packs/Day Years Used Date Smoking Tobacco: Never Assessed Comments Unknown Sex and Gender Information Value Date Recorded Sex Assigned at Not on file Legal Sex Female 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
--- OUTSIDE RECORDS SUMMARY | 2024-10-23 02:12 | XMS_ITS | Encounter Summary ---
Author Organization [facility] Healthcare Address [address] [place] [address] Care Team Providers Care Laboratory Scientist Name Role Phone IndirakarlosomairaPolina Olive العلي Primary Care Provider Encounter Details Date Type Department Care Team (Late st Contact Info) Description 07/19/2010 8:01 AM CDT - 07/19/2010 11:59 PM CDT Hospital Encounter [facility] Type 2 or unspecified type diabetes mellitus; Benign essential hypertension; Pure hypercholesterolemia Social History Tobacco Use Types Packs/Day Years Used Date Smoking Tobacco: Never Assessed Comments Unknown Sex and Gender Information Value Date Recorded Sex Assigned at Not on file 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
--- OUTSIDE RECORDS SUMMARY | 2024-10-23 02:12 | XMS_ITS | Encounter Summary ---
Author Organization [facility] Healthcare Address [address] [place] [address] Care Team Providers Care Economic Development Manager Name Role Phone Polina Rajput MD Primary Care Provider Encounter Details Date Type Department Care Team (Late st Contact Info) Description 01/11/2010 8:09 AM CDT - 01/11/2010 11:59 PM CDT Hospital Encounter [facility] Type 2 or unspecified type diabetes mellitus; Pure hypercholesterolemia ; Benign essential hypertension Social History Tobacco Use Types Packs/Day Years Used Date Smoking Tobacco: Never Assessed Comments Unknown Sex and Gender Information Value Date Recorded Sex Assigned at Not on file 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
--- OUTSIDE RECORDS SUMMARY | 2024-10-23 02:12 | XMS_ITS | Encounter Summary ---
Author Organization [facility] Healthcare Address [address] [place] [address] Care Team Providers Care Head Tennis Coach Name Role Phone Polina Rajput MD Primary Care Provider Encounter Details Date Type Department Care Team (Late st Contact Info) Description 10/17/2007 8:43 AM LABORER CONSTRUCTION OR LEAK GANG - 10/17/2007 11:59 PM LABORER CONSTRUCTION OR LEAK GANG Hospital Encounter [facility]INCON[facility] Elise Social History Tobacco Use Types Packs/Day Years Used Date Smoking Tobacco: Never Assessed Comments Unknown Sex and Gender Information Value Date Recorded Sex Assigned at Not on file Legal Sex Female 8:35 AM LABORER CONSTRUCTION OR LEAK GANG Gender Identity Not on file Sexual Orientation [...] on filedocumented in this encounter Care Teams Head Tennis Coach Relationship Specialty Start Date End Date Polina Rajput MD PCP - General 06/14/07 03/22/08 documented as of this encounter
--- OUTSIDE RECORDS SUMMARY | 2024-10-23 02:12 | XMS_ITS | Encounter Summary ---
Author Organization [facility] Healthcare Address [address] [place] [address] Care Team Providers Care Mounter Brass Wind Instruments Name Role Phone Polina Rajput MD Primary Care Provider Encounter Details Date Type Department Care Team (Late st Contact Info) Description 04/18/2009 12:01 AM CDT - 04/18/2009 11:59 PM CDT Hospital Encounter [facility]INCON[facility] El[facility] Social History Tobacco Use Types Packs/Day Years Used Date Smoking Tobacco: Never Assessed Comments Unknown Sex and Gender Information Value Date Recorded Sex Assigned at Not on file Legal Sex Female 8:35 AM PROFESSIONAL SERVICES MANAGER Gender Identity Not on file Sexual [...] on filedocumented in this encounter Care Teams Mounter Brass Wind Instruments Relationship Specialty Start Date End Date Polina Rajput MD PCP - General 03/23/08 04/15/10 documented as of this encounter
--- OUTSIDE RECORDS SUMMARY | 2024-10-23 02:12 | XMS_ITS | Encounter Summary ---
Author Organization [facility] Healthcare Address [address] [place] [address] Care Team Providers Care Industrial Yard Brake Coupler Name Role Phone Polina Rajput MD Primary Care Provider Encounter Details Date Type Department Care Team (Late st Contact Info) Description 10/16/2009 12:01 AM FOOD SERVICE TRAY ATTENDANT - 10/16/2009 11:59 PM FOOD SERVICE TRAY ATTENDANT Hospital Encounter [facility] CLINCONC[facility]va Elise Other screening mammogram Social History Tobacco Use Types Packs/Day Years Used Date Smoking Tobacco: Never Assessed Comments Unknown Sex and Gender Information Value Date Recorded Sex Assigned at Not on file Legal Sex Female 8:35 AM FOOD SERVICE TRAY ATTENDANT Gender Identity Not on file Sexual [...] mammogram documented in this encounter Care Teams Industrial Yard Brake Coupler Relationship Specialty Start Date End Date Polina Rajput MD PCP - General 03/23/08 04/15/10 documented as of this encounter
--- OUTSIDE RECORDS SUMMARY | 2024-10-23 02:12 | XMS_ITS | Encounter Summary ---
Author Organization [facility] Healthcare Address [address] [place] [address] Care Team Providers Care Construction Consultant Name Role Phone Polina Rajput MD Primary Care Provider Encounter Details Date Type Department Care Team (Late st Contact Info) Description 10/17/2010 10:25 AM HYGIENE ASSISTANT - 10/17/2010 11:59 PM HYGIENE ASSISTANT Hospital Encounter [facility]INCON[facility] Elise Other screening mammogram Social History Tobacco Use Types Packs/Day Years Used Date Smoking Tobacco: Never Assessed Comments Unknown Sex and Gender Information Value Date Recorded Sex Assigned at Not on file Legal Sex Female 8:35 AM HYGIENE ASSISTANT Gender Identity Not on file Sexual [...] mammogram documented in this encounter Care Teams Construction Consultant Relationship Specialty Start Date End Date Polina Rajput MD PCP - General 04/16/10 01/21/17 documented as of this encounter
--- OUTSIDE RECORDS SUMMARY | 2024-10-23 02:12 | XMS_ITS | Encounter Summary ---
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
--- OUTSIDE RECORDS SUMMARY | 2024-10-23 02:12 | XMS_ITS | Encounter Summary ---
Author Organization [facility] Healthcare Address [address] [place] [address] Care Team Providers Care Chief Learning Officer Name Role Phone Polina Rajput MD Primary Care Provider Encounter Details Date Type Department Care Team (Late st Contact Info) Description 10/13/2007 12:01 AM BIG DATA ANALYTICS LEAD - 10/13/2007 11:59 PM BIG DATA ANALYTICS LEAD Hospital Encounter [facility] Social History Tobacco Use Types Packs/Day Years Used Date Smoking Tobacco: Never Assessed Comments Unknown Sex and Gender Information Value Date Recorded Sex Assigned at Not on file Legal Sex Female 8:35 AM BIG DATA ANALYTICS LEAD Gender Identity Not on file Sexual [...] on filedocumented in this encounter Care Teams Chief Learning Officer Relationship Specialty Start Date End Date Polina Rajput MD PCP - General 06/14/07 03/22/08 documented as of this encounter
--- OUTSIDE RECORDS SUMMARY | 2024-10-23 02:12 | XMS_ITS | Encounter Summary ---
Author Organization [facility] Healthcare Address [address] [place] [address] Care Team Providers Care College Sports Coach Name Role Phone Polina Rajput MD Primary Care Provider Encounter Details Date Type Department Care Team (Late st Contact Info) Description 10/05/2009 8:24 AM LICENSED GUIDE - 10/05/2009 11:59 PM LICENSED GUIDE Hospital Encounter [facility] Impaired fasting glucose; Benign essential hypertension Social History Tobacco Use Types Packs/Day Years Used Date Smoking Tobacco: Never Assessed Comments Unknown Sex and Gender Information Value Date Recorded Sex Assigned at Not on file Legal Sex Female 8:35 AM LICENSED GUIDE Gender Identity Not on file Sexual Orientation [...] as of this encounter Visit Diagnoses Diagnosis Impaired fasting glucose Benign essential hypertension Essential hypertension, benign documented in this encounter Care Teams College Sports Coach Relationship Specialty Start Date End Date Polina Rajput MD PCP - General 03/23/08 04/15/10 documented as of this encounter
--- OUTSIDE RECORDS SUMMARY | 2024-10-23 02:12 | XMS_ITS | Encounter Summary ---
Author Organization [facility] Healthcare Address [address] [place] [address] Care Team Providers Care Gettering Filament Machine Operator Name Role Phone Polina Rajput MD Primary Care Provider Encounter Details Date Type Department Care Team (Late st Contact Info) Description 10/15/2008 12:01 AM BEAUTY OPERATOR - 10/15/2008 11:59 PM BEAUTY OPERATOR Hospital Encounter [facility] Other screening mammogram Social History Tobacco Use Types Packs/Day Years Used Date Smoking Tobacco: Never Assessed Comments Unknown Sex and Gender Information Value Date Recorded Sex Assigned at Not on file Legal Sex Female 8:35 AM BEAUTY OPERATOR Gender Identity Not on file Sexual [...] mammogram documented in this encounter Care Teams Gettering Filament Machine Operator Relationship Specialty Start Date End Date Polina Rajput MD PCP - General 03/23/08 04/15/10 documented as of this encounter
--- OUTSIDE RECORDS SUMMARY | 2024-10-23 02:12 | XMS_ITS | Encounter Summary ---
Author Organization [facility] Healthcare Address [address] [place] [address] Care Team Providers Care Field Service Engineer Name Role Phone Polina Rajput MD Primary Care Provider Encounter Details Date Type Department Care Team (Late st Contact Info) Description 10/06/2008 8:35 AM DIE PRESS OPERATOR - 10/06/2008 11:59 PM DIE PRESS OPERATOR Hospital Encounter [facility]CON[facility] Impaired fasting glucose; Benign essential hypertension Social History Tobacco Use Types Packs/Day Years Used Date Smoking Tobacco: Never Assessed Comments Unknown Sex and Gender Information Value Date Recorded Sex Assigned at Not on file Legal Sex Female 8:35 AM DIE PRESS OPERATOR Gender Identity Not on file Sexual [...] benign documented in this encounter Care Teams Field Service Engineer Relationship Specialty Start Date End Date Polina Rajput MD PCP - General 03/23/08 04/15/10 documented as of this encounter
--- OUTSIDE RECORDS SUMMARY | 2024-10-23 02:14 | XMS_ITS | Clinical Summary ---
Author Organization [facility] Address [address] [place] [address] Care Team Providers Care Two Needle Machine Operator Name Role Phone Rosa hSi MD Primary Care Provider [phone] Allergies Active Allergy Reactions Criticality Noted Date Comments Latex Rash Low 05/07/2022 Medications Medication Sig Dispensed Refills Start Date End Date Status fluticasone propion-salmeteroL (ADVAIR DISKUS,WIXELA INHUB) 500-50 mcg/dose disk inhaler Take 1 Puff by inhalation 2 times daily. Active ALBUTEROL INHALATION Take 1 Puff by inhalation Continuous as needed. Active LANCETS [facility] Use as directed 12/01/2020 Active blood sugar diagnostic Strip Diagnosis: Diabetes type 2 Blood testing frequency: 3 times a day 12/01/2020 Active blood-glucose meter (BLOOD GLUCOSE MONITOR KIT [facility]) Diagnosis: Diabetes type 2 Blood testing frequency: 3 times a day 12/01/2020 Active cholecalciferol, Vitamin D3, (VITAMIN D3) 25 mcg (1,000 unit) Capsule Take by mouth daily. Acti ve Trulicity 0.75 mg/0.5 mL injection 0.75 mg by See Admin Instructions route every 7 days. 07/16/2023 Active anastrozole (ARIMIDEX) 1 mg tabletIndications: 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, estrogen receptor positive take 1 tablet daily 90 Tablet 3 12/06/2023 Active ibuprofen (MOTRIN) 800 mg tablet Take 800 mg by mouth every 8 hours as needed for Pain. 12/22/2023 Active cyanocobalamin (VITAMIN B-12) 500 mcg tablet Take 500 mcg by mouth daily. Active atorvastatin (LIPITOR) 10 mg tablet Take 10 mg by mouth daily. Active Active Problems Patient Care Coordination No te Formatting of this note migh t be different from the original. Primary Care: Rosa Shi MD [place]: [place] [address] [place] [address] Other: Dr. Chayo Zepeda MD Problem Noted Date Diagnosed Date History of partial mastectomy, left 03/28/2024 Aromatase inhibitor use 03/28/2024 Lymphedema of breast 03/28/2024 History of left breast cancer 03/23/2023 Malignant neoplasm of left female breast 021 Cancer Staging:Clinical stage from 06/25/2021:No Stage Recommended(ycT1c, cN0, cM0, G3, ER+, NJ+, HER2+) - Signed by Chayo Zepeda MD on 07/02/2021 Vulvar dermatitis 12/26/2012 Overview (12/26/2012): Spongiotic by 11/2012 biopsy Vulvar itching 12/09/2012 Overview (12/09/2012): Chronic, despite medical treatment Chronic vulvitis 12/09/2012 S/P YEHUDA (total abdominal hysterectomy) 2 Essential hypertension, benign 06/08/2012 Diabetes mellitus 06/08/2012 Unspecified asthma(493.90) 06/08/2012 History of delivery 06/08/2012 S/P tubal ligation 06/08/2012 Lichen sclerosus et atrophicus of the vulva 05/25 Overview (12/26/2012): Remote hx of, no evidence on 11/2012 repeat vulvar biopsy Resolved Problems Problem Noted Date Diagnosed Date Resolved Date Well woman exam with routine gynecological exam 06/08/2012 10/26/2012 Encounters Date Type Department Care Team Description 10/04/2024 Orders Only [facility] Oncology and Hematology - [place] [address] [place] [address] Aaron Smith MD 08/28/2024 External Device Data STL ABSTRACTION Provider, Abstract 08/07/2024 3:30 PM CDT Office Visit [facility] Oncology [place] [address] [place] [address] Aaron Smith MD 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, estrogen receptor positive (Primary Dx) 07/28/2024 Orders Only [facility] Oncology [facility] [address] [place] [address] Aaron Smith MD 07/25/2024 External Device Data STL ABSTRACTION Provider, Abstract from Last 3 Months Immunizations Name Administration Dates Next Due (SPIKEVAX) (12 YRS UP PRIMAR Y SERIES) COVID-19 VACCINE - [id number](PF) 100 MCG/0.5 ML IM SUSP 01/04/2021,12/07/2020 Family History Medical History Relation Name Comments Stroke Father Cancer Mother Breast Cancer Paternal Cousin 1 Breast Cancer Paternal Cousin 2 Breast Cancer Paternal Cousin 3 Breast Cancer Paternal Cousin 4 Breast Cancer Paternal Cousin 5 Colon Cancer Neg Hx Lung Cancer Neg Hx Ovarian Cancer Neg Hx Uterine Cancer Neg Hx Relation Name Status Comments Father Mother BRAIN CANCER Paternal Cousin 1 Paternal Cousin 2 Paternal Cousin 3 Paternal Cousin 4 Paternal Cousin 5 Social History Tobacco Use Types Packs/Day Years Used Date Smoking Tobacco: Never Smokeless Tobacco: Never Tobacco Cessation:Counseling Given: Not Answered Alcohol Use Standard Drinks/Week Comments Yes 0 (1 standard drink = 0.6 oz pur e alcohol) 1/week Sex and Gender Information Value Date Recorded Sex Assigned at Not on file Gender Identity Not on file Sexual Orientation Not on file Last Filed Vital Signs Vital Sign Reading Time Taken Comments Blood Pressure 146/76 08/07/2024 3:17 PM CDT Pulse 94 08/07/2024 3:17 PM CDT Temperature 36.5 ??C (97.7 ??F) 08/07/2024 3:17 PM CD T Respiratory Rate 16 08/07/2024 3:17 PM CDT Oxygen Saturation 96% 08/07/2024 3:17 PM CDT Inhaled Oxygen Concentration - - Weight 95.7 kg (211 lb) 08/07/2024 3:17 PM CDT Height 157.5 cm (5' 2 ) 03/28/2024 1:13 PM CDT Body Mass Index 38.59 03/28/2024 1:13 PM CDT Plan of Treatment Upcoming Encounters Date Type Department Care Team (Late st Contact Info) Description 02/12/2025 1:00 PM CDT Office Visit [facility] Oncology and Hematology - [place] [address] [facility] [address] [place] [address] Aaron Smith MD [address] [facility] [address] [place] [address] 03/29/2025 12:30 PM CDT Appointment [facility] [place] [address] [place] [phone] [place] [address] [facility] [address] [place] [address] 03/29/2025 1:30 PM CDT Office Visit [facility] Breast Surgery [place] [address] [facility] [address] [place] [address] [place] [address] [facility] [address] [place] [address] Health Maintenance Due Date Last Done Comments DIABETES ANNUAL RETINAL EXAM 1981 DIABETES MICROALBUMIN ANNUAL SCREEN 1981 LDL CHOLESTEROL ANNUAL 1981 CERVICAL CANCER SCREENING 1993 FIT-DNA Q 3 years 2008 FIT/FOBT Q 1 year 2008 Flex Sig/CT Colonography Q 5 years 2008 PNEUMOCOCCAL VACCINE 0-64 YE ARS (2 of 2 - PCV) 08/04/2011 08/04/2010 ZOSTER VACCINE (1 of 2) 2013 DIABETES ANNUAL FOOT EXAM 07/04/2020 07/04/2019 DTAP/TDAP/TD VACCINES (2 - T d or Tdap) 08/04/2020 08/04/2010 DIABETES HBA1C Q 6 MONTHS 04/20/20222020, 11/29/2020, 02/13/2019 RSV VACCINE (60+ or ) (1 - Risk 60-74 years 1-dose series) 2023 INFLUENZA VACCINE (#1) 2024 3, 10/20/2017, 08/01/2014 COVID-19 Vaccine (3 - 2023-2 5 season) 2024 01/04/2021, 12/07/2020 COLORECTAL SCREENING 11/12/2024 11/12/2014, 11/12/19 15 Colorectal Cancer Screening 11/12/2024 BREAST CANCER SCREENING 03/28/2025 03/28/20 24, 03/23/2023, 03/24/2022, Additional history exists Medical Devices Implanted Type Area Lasting Floorworker Device Identifier Shelf Expiration Date Model / Serial / Lot Shot Polisher Clip Surgiclip Ii Jaime 9.75in [id number] - [id number] Implanted:Qty: 1 on 06/25/2021 by Chayo Zepeda MD at [facility] Clip Left: Axilla [employer] - COVIDIEN 12/22/2025 [id number] / / [id number] Shot Polisher Clip Surgiclip Ii Jaime 9.75in [id number] - [id number] Implanted:Qty: 1 on 06/25/2021 by Chayo Zepeda MD at [facility] Clip Left: Axilla [employer] - COVIDIEN 06/24/2025 [id number] / / [id number] Hemostatic Surgicel 2x14in 1950 - [id number] Implanted:Qty: 1 on 06/25/2021 by Chayo Zepeda MD at [facility] Hemostatic Left: Breast [employer] 01/22/20251950 / / [id number] Explanted Type Area Lasting Floorworker Device Identifier Shelf Expiration Date Model / Serial / Lot Port Powerport Clearvue 8fr Mri [id number] - [id number] Implanted:Qty: 1 on 01/29/2021 by Chayo Zepeda MD at [facility] Explanted:Qty: 1 on 05/27/2022 by Chayo Zepeda MD at [facility] Port Right: Chest CR [employer]ARD[employer] 04/23/2022 [id number] / / [id number] Procedures Procedure Name Priority Date/Time Associated Diagnosis Comments NM BONE DENSITY Routine 10/02/2024 12:46 PM SKIP MINER BLASTING CANCER ANTIGEN 15-3 Routine 07/27/2024 2 :27 PM CDT COMPREHENSIVE METABOLIC PANEL Routine 07/26/2024 11:10 AM CDT CBC WITH DIFFERENTIAL Routine 07/26/2024 10:16 AM CDT MAMMO DIAG BILAT 3D JESS W OR WO CAD Routine 03/28/2024 12:33 PM CDT History of left breast cancer Lymphedema HEMOGLOBIN A1C Routine 10/20/2021 from Last 3 Months or Most Recently Relevant to Health Maintenance Results * NM BONE DENSITY (10/02/2024 12:46 PM SKIP MINER BLASTING) Anatomical Region Laterality Modality Other Aaron Smith MD NM ORDERABLES * CANCER ANTIGEN 15-3 (07/27/2024 2:27 PM CDT) Blood Aaron Smith MD CHEMISTRY ORDERABLES * COMPREHENSIVE METABOLIC PANEL (07/26/2024 11:10 AM CDT) Blood Aaron Smith MD CHEMISTRY ORDERABLES * CBC WITH DIFFERENTIAL (07/26/2024 10:16 AM CDT) Blood Aaron Smith MD HEMATOLOGY ORDERABLE S * MAMMO DIAG BILAT 3D JESS W OR WO CAD (03/28/2024 12:33 PM CDT) Anatomical Region Laterality Modality Breast Bilateral Mammography 03/28/2024 12:3 3 PM CDT Impressions 03/28/2024 3:46 PM CDT IMPRESSION: 1. No concerning mammographic abnormalities identified. OVERALL FINAL ASSESSMENT: ??BI-RADS CATEGORY 2 - Benign findings. RECOMMENDATION: ?? 1. Recommend annual mammography. Narrative 03/28/2024 3:46 PM CDT BILATERAL DIAGNOSTIC DIGITAL MAMMOGRAM WITH 3D TOMOSYNTHESIS AND CAD DATE: 03/28/2024 12:33 PM DICTATION LOCATION: ??[place] HISTORY: Personal history of left-sided breast cancer treated with lumpectomy. Yearly exam. TECHNIQUE: Full-field digital diagnostic mammograms of both breasts were obtained with 2D and 3D acquisitions. CAD was utilized. COMPARISON: Studies dating back to 04/18/2019 BREAST COMPOSITION: There are scattered areas of fibroglandular density. FINDINGS: Mammographic changes consistent with breast conservation therapy within the left breast. ??No dominant masses, suspicious calcifications, parenchymal asymmetry or areas of architectural distortion are identified in either breast. ?? Procedure Note Derek Ponce MD - 03/28/2024 BILATERAL DIAGNOSTIC DIGITAL MAMMOGRAM WITH 3D TOMOSYNTHESIS AND CAD DATE: 03/28/2024 12:33 PM DICTATION LOCATION: [place] HISTORY: Personal history of left-sided breast cancer treated with lumpectomy. Yearly exam. TECHNIQUE: Full-field digital diagnostic mammograms of both breasts were obtained with 2D and 3D acquisitions. CAD was utilized. COMPARISON: Studies dating back to 04/18/2019 BREAST COMPOSITION: There are scattered areas of fibroglandular density. FINDINGS: Mammographic changes consistent with breast conservation therapy within the left breast. No dominant masses, suspicious calcifications, parenchymal asymmetry or areas of architectural distortion are identified in either breast. IMPRESSION: 1. No concerning mammographic abnormalities identified. OVERALL FINAL ASSESSMENT: BI-RADS CATEGORY 2 - Benign findings. RECOMMENDATION: 1. Recommend annual mammography. Chayo Zepeda MD MAMMO ORDERABLES * HEMOGLOBIN A1C (10/20/2021) Blood Abstract Provider CHEMISTRY ORDERABLES from Last 3 Months or Most Recently Relevant to Health Maintenance Advance Directives For more information, please contact: [phone] * Full Code (Latest Code Status on File) Date Activated Date Inactivated Comments 06/25/2021 5:53 AM 06/25/2021 3:54 PM * Full Code Date Activated Date Inactivated Comments 01/29/2021 7:01 AM 01/29/2021 11:48 AM Care Teams Two Needle Machine Operator Relationship Specialty Start Date End Date Rosa Shi MD [address] [place] [id number] PCP - General Family Practice 01/15/21
--- OUTSIDE RECORDS SUMMARY | 2024-10-23 02:15 | XMS_ITS | Encounter Summary ---
Author Organization [facility] Address [address] [place] [address] Care Team Providers Care Work Distributor Name Role Phone Rosa Shi MD Primary Care Provider [phone] Encounter Details Date Type Department Care Team (Late st Contact Info) Description 06/27/2024 External Device Data STL ABSTRACTION Provider, Abstract NO ADDRESS ON FILE Social History Tobacco Use Types Packs/Day Years Used Date Smoking Tobacco: Never Smokeless Tobacco: Never Alcohol Use Standard Drinks/Week Comments Yes 0 (1 standard drink = 0.6 oz pur e alcohol) 1/week Sex and Gender Information Value Date Recorded Sex Assigned at Not on file Gender Identity Not on file Sexual Orientation Not on file documented as of this encounter Plan of Treatment Upcoming Encounters Date Type Department Care Team (Late st Contact Info) Description 02/12/2025 1:00 PM CDT Office Visit [facility] Oncology and Hematology - [place] [address] [facility] [address] [place] [address] Aaron Smith MD [address] [facility] [address] [place] [address] 03/29/2025 12:30 PM CDT Appointment [facility] [place] [address] [place] [address] [place] [address] [facility] [address] [place] [address] 03/29/2025 1:30 PM CDT Office Visit [facility] Breast Surgery [place] [address] [facility] [address] [place] [address] [place] [address] [facility] [address] [place] [address] documented as of this encounter Visit Diagnoses Not on filedocumented in this encounter Care Teams Work Distributor Relationship Specialty Start Date End Date Rosa Shi MD [address] [place] [address] PCP - General Family Practice 01/15/21 documented as of this encounter
--- OUTSIDE RECORDS SUMMARY | 2024-10-23 02:15 | XMS_ITS | Encounter Summary ---
Author Organization [facility] Address [address] [place] [address] Care Team Providers Care Paint Mixer Name Role Phone Rosa Shi MD Primary Care Provider [phone] Reason for Referral * Radiology Services (Routine) - Closed Specialty Diagnoses / Procedures Referred By Contac t Referred To Contact Diagnoses History of left breast cancer Lymphedema Procedures MAMMO DIAG BILAT 3D JESS W OR WO CAD CHG DIAGNOSTIC MAMMOGRAPHY COMPUTER-AIDED DETCJ BI CHG DIGITAL BREAST TOMOS[place]TH[place] [address] [place] [address] Referral ID Status Reason Start Date Expiration Date Visits Re quested Visits Authorized [id number] Closed 03/23/2023 04/22/2024 1 1 Reason for Visit * Reason Comments Follow Up Malignant neoplasm o f left female breast Encounter Details Date Type Department Care Team (Late st Contact Info) Description 03/23/2023 1:15 PM CDT Office Visit [facility] BREAST SURGERY - [place] [address] [place] [address] [place] [address] [address] [address] History of left breast cancer (Primary Dx); Lymphedema Social History Tobacco Use Types Packs/Day Years [...] Sign Reading Time Taken Comments Blood Pressure 132/78 03/23/2023 1:11 PM CDT Pulse - - Temperature - - Respiratory Rate - - Oxygen Saturation - - Inhaled Oxygen Concentration - - Weight 100.2 kg (221 lb) 03/23/2023 1:11 PM CDT Height 157.5 cm (5' 2 ) 03/23/2023 1:11 PM CDT Body Mass Index 40.42 03/23/2023 1:11 PM CDT documented in this encounter Progress Notes * Chayo Zepeda MD - 03/23/2023 1:10 PM CDT PATIENT: Rosa Babb : 1965 DATE: 03/23/2023 Breast Cancer, LEFT UIQ Clinical Stage T2 N0 Mx Date of Diagnosis: 12/23/2020 Path: Left breast US guided core biopsy - invasive ductal carcinoma, intermediate grade ER positive (80%), ID weakly positive (1-5%), HER2 2+ equivocal (FISH - amplified) - positive. . Surgeon(s): [facility] Surgery: She is s/p left NL lumpectomy, SNB on 06/25/2021. Right port removal Med Onc: Dr. Smith Chemo: TCHP x 6 cycles (completed May 28, 2021); maintenance HP - completed on 05/18/2022. Rad Onc: Dr. Moreira Radiation: whole breast and regional LN radiation (completed August 2021) Antiestrogen Therapy: Arimidex (started October 03, 2021) Rosa Babb is a 57 y.o. female, -British, presents today for follow-up for her left breast cancer. She is s/p left NL lumpectomy, SNB on 06/25/2021. Pathology: 06/25/21 Left breast wide NL lumpectomy: invasive ductal carcinoma, 1.0 cm, high grade, < 1 mm from inferior margin, additional inferior margin clear. DCIS in 13 of 68 tissue blocks, high grade, < 1 mm from inferior margin, 2 mm from posterior margin, additional margins clear. 0/6 SNB, 0/4 additional palpable lymph nodes. Stage ypT1 ypN0 - ER/ID positive, HER2 2+ (FISH positive) Today, she reports she is doing well. She does report occasional left breast heaviness and pain, although her incisions have healed nicely without concern. She has continued to work with OT/PT for breast lymphedema, which has slowly improved her symptoms. Overall, she is happy and grateful for her care. Denies any changes in overall health or family history. For your review, she was initially referred in December [address] Rosa Shi because of a newly diagnosed left breast cancer. She was in her usual state of health, when she developed Covid with a pneumonia. A CT-chest was obtained that revealed an incidental finding of a left breast irregular mass. Additional breast imaging was obtained that revealed an invasive ductal carcinoma, ER positive, HER2 2+ equivocal, FISH amplified. She denies any associated symptoms, no nipple discharge. She denies prior breast surgeries or biopsies. She is 3, para 1. She was 9 at menarche and30 at first live . There is no family history of breast or ovarian cancer. Her mother had brain cancer from Herpes Simplex Virus and within 3 months of diagnosis at 74. 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 She is . She drinks a rare amount. She is a non-smoker. She is heretoday with her brother to discuss surgical options. 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 ID BX/EXC LYMPH NODE OPEN SUPERFICIAL Left 06/25/2021 LEFT AXILLARY SENTINEL LYMPH NODE BIOPSY WITH NUC MED AT 6:30 AM POSSIBLE AXILLARY LYMPH NODE DISSECTION performed by Chayo Zepeda MD at [facility] OR ID INSJ TUNNELED CVC W/O SUBQ PORT/APPLICATION DEVELOPER MANAGER AGE 5 YR/> Right 01/29/2021 RIGHT PORT A CATHETER PLACEMENT POSSIBLE LEFT PORT A CATHETER PLACEMENT performed by Chayo Zpeeda MD at [facility] OR ID MASTECTOMY PARTIAL Left 06/25/2021 LEFT BREAST WIDE LOCAL EXCISION LUMPECTOMY WITH NEEDLE LOCALIZATION AT 7:30 AM performed by Chayo Zepeda MD at [facility] OR ID RMVL MALDONADO CTR VAD W/SUBQ PORT/APPLICATION DEVELOPER MANAGER CTR/PRPH INSJ Right 05/27/2022 CATHETER VENOUS ACCESS REMOVAL performed by Chayo Zepeda MD at [facility] OR TONSILLECTOMY ALLERGY: Allergies Allergen Reactions Latex Rash MEDS: Current Outpatient Medications Medication Sig Dispense Refill anastrozole (Arimidex) 1 mg tablet Take 1 Tablet (1 mg) by mouth daily. 90 Tablet 3 cholecalciferol, Vitamin D3, (VITAMIN D3) 25 mcg (1,000 unit) Capsule Take by mouth daily. blood-glucose meter (BLOOD GLUCOSE MONITOR KIT MIS) Diagnosis: Diabetes type 2 Blood testing frequency: 3 times a day ALBUTEROL INHALATION Take 1 Puff by inhalation Continuous as needed. LANCETS MISC Use as directed blood sugar diagnostic Strip Diagnosis: Diabetes type 2 Blood testing frequency: 3 times a day fluticasone propion-salmeteroL (ADVAIR DISKUS,WIXELA INHUB) 500-50 mcg/dose disk inhaler Take 1 Puff by inhalation 2 times daily. No current facility-administered medications for this visit. FHX: Family History Problem Relation Name Age of Onset Stroke Father Cancer Mother Breast Cancer Paternal Cousin Breast Cancer Paternal Cousin Breast Cancer Paternal Cousin Breast Cancer Paternal Cousin Breast Cancer Paternal Cousin Colon Cancer Neg Hx Ovarian Cancer Neg Hx Uterine Cancer Neg Hx Lung Cancer Neg Hx SOC: Social History Socioeconomic History Marital status: Spouse name: Not on file Number of children: 1 Years of education: Not on file Highest education level: Not on file Occupational History Employer: [employer] Tobacco Use Smoking status: Never Smokeless tobacco: Never Vaping Use Vaping Use: Never used Substance and Sexual Activity Alcohol use: Yes Comment: 1/week Drug use: No Sexual activity: Yes Partners: Male Comment: YEHUDA Other Topics Concern Not on file Social History Narrative Not on file Social Determinants of Health Financial Resource Strain: Not on file Food Insecurity: Not on file Transportation Needs: Not on file Social Connections: Not on file Intimate Partner Violence: Not on file Housing Stability: Not on file BP 132/78 Ht 5' 2 (1.575 m) Wt 100.2 kg (221 lb) BMI 40.42 kg/m?? PHYSICAL EXAM: Well-developed, well-nourished, pleasant woman. . Neck - no thyromegaly no cervical adenopathy Resp - no labored breathing, no wheezing CV - regular rate, 2+ pulses Right port well healed - keloid scar. SCF- no adenopathy Axilla -no adenopathy Breasts - Right breast:normal in appearance, no masses, skin changes or nipple discharge Left breast: well healed lumpectomy and axillary incision. Postradiation changes. Improvement of dependent edema/lymphedema of the breast and axillary tissue. No evidence of recurrence. Abdomen - liver and spleen not palpably enlarged Extremities - Good range of motion of shoulders, no lymphedema present IMAGING: I personally reviewed the following films: Mammogram: 08/22/2020 ([place], [place]) - left breast UOQ posterior depth with mass measures 2.8 x 2.1 cm, stable. Left breast ultrasound: 12/18/2020 ([place], [place]) - newly palpable left breast periareolar 9:00 irregular mass, measures 1.2 cm. BIRADs 4. Left breast US guided core biopsy - 12/23/2020 - invasive ductal carcinoma, intermediate grade ER positive (80%), ID weakly positive (1-5%), HER2 2+ equivocal (FISH - amplified) - positive. Breast MRI: 01/14/21 Left breast - irregular enhancing mass anterior medial at 3:00 with biopsy clip, measures 2.5 cm x 2.1 x 1.5 cm (located 1.6 cm from nipple and 1 mm from dermis) - 2 additional satellite lesions posterior to main mass - 8 mm and 5 mm - spans 6.3 cm in total - [address] in UOQ axillary tail of breast - measures 2.5 cm and 1.7 cm. Right breast - negative Mammogram: 03/24/2022 - no evidence of malignancy Mammogram: 03/23/2023 - no evidence of malignancy. Postsurgical changes left breast. BIRADS 2 - benign findings. IMPRESSION /PLAN: 57 y.o. postmenopausal -British woman with palpable left breast invasive carcinoma, triple positive. Clinical Stage T1-2 cN0 Mx cancer of the left breast. She completed upfront HER2 directed chemotherapy with TCHP on May 28, 2021. She is s/p left NL lumpectomy, SNB on 06/25/2021, followed by radiation and endocrine therapy. I have personally examined her and there is no clinical evidence of malignancy at this time No further surgical intervention is necessary at this time. She will return to monthly self breast exams, bi-annual clinical breast exams, and will continue annual mammography, per [place] [employer] guidelines. I will see her back in one year for a clinical breast exam and annual 3D mammogram. See me back as needed if any new problems arise. Scar care with daily moisturizer. Risk reducing lifestyle modifications including regular exercise four times a week or more for 30-45 minutes, a healthy moderate diet, and avoidance of tobacco products reviewed and encouraged. 20 minutes were spent with the patient, preparing for the office visit, and reviewing pathology andradiologic data. Chayo Zepeda MD Breast Surgical Oncology [phone] cc: [place] [address] [facility] [address] [place] [address] documented in this encounter Plan of Treatment Upcoming Encounters Date Type Department Care Team (Late st Contact Info) Description 02/12/2025 1:00 PM CDT Office Visit [facility] Oncology and Hematology - [place] [address] [place] [address] Aaron Smith MD [address] [facility] [address] [place] [address] 03/29/2025 12:30 PM CDT Appointment [facility] [address] [address] [place] [address] [address] [address] 03/29/2025 1:30 PM CDT Office Visit [facility] Breast Surgery [address] [place] [address] [place] [address] [address] [address] documented as of this encounter Results * MAMMO DIAG BILAT 3D JESS W [...] CAD DATE: 03/28/2024 12:33 PM DICTATION LOCATION: ??[facility] [place] HISTORY: Personal history of left-sided breast [...] CAD DATE: 03/28/2024 12:33 PM DICTATION LOCATION: [facility] HISTORY: Personal history of left-sided breast [...] annual mammography. Chayo Zepeda MD MAMMO ORDERABLES documented in this encounter Visit Diagnoses Diagnosis History of left breast cancer- Primary Lymphedema Other lymphedema History of left breast cancer Lymphedema Other lymphedema documented in this encounter Care Teams Paint Mixer Relationship Specialty Start Date End Date Rosa Shi MD [address] [place] [address] PCP - General Family Practice 01/15/21 documented as of this encounter
--- OUTSIDE RECORDS SUMMARY | 2024-10-23 02:15 | XMS_ITS | Encounter Summary ---
Author Organization [facility] Address [address] [place] [address] Care Team Providers Care Oral Surgeon Name Role Phone Rosa Shi MD Primary Care Provider [phone] Reason for Referral * Radiology Services (Routine) - Authorized Specialty Diagnoses / Procedures Referred By Contac t Referred To Contact Diagnoses History of left breast cancer History of partial mastectomy, left Aromatase inhibitor use Procedures MAMMO 3D JESS DIAGNOSTIC BILAT W OR WO CAD CHG DIAGNOSTIC MAMMOGRAPHY COMPUTER-AIDED DETCJ BI CHG DIGITAL BREAST TOMOSYNTH[place] [address] [address] [facility] [address] [place] [address] Referral ID Status Reason Start Date Expiration Date V isits Requested Visits Authorized [id number] Authorized 03/28/2024 04/28/2025 1 1 Reason for Visit * Reason Comments Follow Up annual Encounter Details Date Type Department Care Team (Late st Contact Info) Description 03/28/2024 1:15 PM CDT Office Visit [facility] Breast Surgery [address] [facility] [address] [facility] [place] [address] [place] [address] [facility] [address] [place] [phone] History of left breast cancer (Primary Dx); History of partial mastectomy, left; Aromatase inhibitor use; Lymphedema of breast Social History Tobacco Use Types [...] Sign Reading Time Taken Comments Blood Pressure 136/76 03/28/2024 1:13 PM CDT Pulse - - Temperature - - Respiratory Rate - - Oxygen Saturation - - Inhaled Oxygen Concentration - - Weight 95.3 kg (210 lb) 03/28/2024 1:13 PM CDT Height 157.5 cm (5' 2 ) 03/28/2024 1:13 PM CDT Body Mass Index 38.41 03/28/2024 1:13 PM CDT documented in this encounter Progress Notes * Chayo Zepeda MD - 03/28/2024 1:16 PM CDT PATIENT: Rosa Babb : 1965 DATE: 03/28/2024 Breast Cancer, LEFT UIQ Clinical Stage T2 N0 Mx Date of Diagnosis: 12/23/2020 Path: Left breast US guided core biopsy - invasive ductal carcinoma, intermediate grade ER positive (80%), WI weakly positive (1-5%), HER2 2+ equivocal (FISH [...] Therapy: Arimidex (started October 03, 2021) Rosa Kauffmanington is a 58 y.o. female, -Turkmen, presents today for follow-up for her left [...] palpable lymph nodes. Stage ypT1 ypN0 - ER/WI positive, HER2 2+ (FISH positive) Today, she reports she is doing well. She has no current breast complaints and is happy with her surgical outcome. She continues to tolerate endocrine therapy with Arimidex, despite feeling joint aches. Denies any changes in her overall health or family history. 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 She is . She drinks a rare amount. She is a non-smoker. She is heretoday with her brother to discuss surgical options. 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 WI BX/EXC LYMPH NODE OPEN SUPERFICIAL Left 06/25/2021 LEFT AXILLARY SENTINEL LYMPH NODE BIOPSY WITH NUC MED AT 6:30 AM POSSIBLE AXILLARY LYMPH NODE DISSECTION performed by Chayo Zepeda MD at [facility] OR WI INSJ TUNNELED CVC W/O SUBQ PORT/ORDER PROCESSING MANAGER AGE 3 YR/> Right 01/29/2021 RIGHT PORT A CATHETER PLACEMENT POSSIBLE LEFT PORT A CATHETER PLACEMENT performed by Chayo Zepeda MD at [facility] OR WI MASTECTOMY PARTIAL Left 06/25/2021 LEFT BREAST WIDE LOCAL EXCISION LUMPECTOMY WITH NEEDLE LOCALIZATION AT 7:30 AM performed by Chayo Zepeda MD at [facility] OR WI RMVL MALDONADO CTR VAD W/SUBQ PORT/ORDER PROCESSING MANAGER CTR/PRPH INSJ Right 05/27/2022 CATHETER VENOUS ACCESS REMOVAL performed by Chayo Zepeda MD at [facility] OR TONSILLECTOMY ALLERGY: Allergies Allergen Reactions Latex Rash MEDS: Current Outpatient Medications Medication Sig Dispense Refill ibuprofen (MOTRIN) 800 mg tablet Take 800 mg by mouth every 8 hours as needed for Pain. cyanocobalamin (VITAMIN B-12) 500 mcg tablet Take 500 mcg by mouth daily. anastrozole (ARIMIDEX) 1 mg tablet take 1 tablet daily 90 Tablet 3 Trulicity 0.75 mg/0.5 mL injection 0.75 mg by See Admin Instructions route every 7 days. cholecalciferol, Vitamin D3, (VITAMIN D3) 25 mcg (1,000 unit) Capsule Take by mouth daily. blood-glucose meter (BLOOD GLUCOSE MONITOR KIT [facility]) Diagnosis: Diabetes type 2 Blood testing frequency: 3 times a day ALBUTEROL INHALATION Take 1 Puff by inhalation Continuous as needed. LANCETS [facility] Use as directed blood sugar diagnostic Strip [...] level: Not on file Occupational History Employer: [employer] Tobacco Use Smoking status: Never Smokeless tobacco: Never Vaping Use Vaping status: Never Used Substance and Sexual Activity Alcohol use: Yes [...] file Housing Stability: Not on file BP 136/76 Ht 5' 2 (1.575 m) Wt 95.3 kg (210 lb) BMI 38.41 kg/m?? PHYSICAL EXAM: Well-developed, well-nourished, pleasant woman. . Neck - no cervical adenopathy Resp - no labored [...] personally reviewed the following films: Mammogram: 08/22/2020 ([place], [place]) - left breast UOQ posterior depth with mass measures 2.8 x 2.1 cm, stable. Left breast ultrasound: 12/18/2020 ([place], [place]) - newly palpable left breast periareolar 9:00 irregular mass, measures 1.2 cm. BIRADs 4. Left breast US guided core biopsy - 12/23/2020 - invasive ductal carcinoma, intermediate grade ER positive (80%), WI weakly positive (1-5%), HER2 2+ equivocal (FISH [...] left breast. BIRADS 2 - benign findings. Bilateral 3D mammogram: 03/28/2024 - no evidence of malignancy. Postsurgical changes left breast. BIRADS 2. Benign findings. IMPRESSION /PLAN: 58 y.o. postmenopausal -Turk[place] woman with palpable left breast invasive carcinoma, [...] exams, and will continue annual mammography, per [place] [employer] guidelines. Continue endocrine therapy with a plan to continue for at least 5 years. I will see her back in one [...] data. Chayo Zepeda MD Breast Surgical Oncology [phone] cc: Rosa Shi MD [address] [facility] [address] documented in this encounter Plan of Treatment Upcoming Encounters Date Type Department Care Team (Late st Contact Info) Description 02/12/2025 1:00 PM CDT Office Visit [facility] Oncology and Hematology [facility] [address] [facility] [address] [place] [address] Aaron Smith MD [address] [facility] [address] [place] [address] 03/29/2025 12:30 PM CDT Appointment [facility] [address] [address] [facility] [place] [address] [place] [address] [facility] [address] [place] [address] 03/29/2025 1:30 PM CDT Office Visit [facility] Breast Surgery [address] [facility] [address] [place] [address] [place] [address] [facility] [address] [place] [address] Scheduled Orders Name Type Priority Associated Diagnoses Orde r Schedule MAMMO 3D JESS DIAGNOSTIC BILAT W OR WO CAD Imaging Routine History of left breast cancer History of partial mastectomy, left Aromatase inhibitor use Expected: 03/28/2025, Expires: 09/27/2025 documented as of this encounter Visit Diagnoses Diagnosis History of left breast cancer- Primary History of partial mastectomy, left Aromatase inhibitor use Use of aromatase inhibitors Lymphedema of breast Other lymphedema documented in this encounter Care Teams Oral Surgeon Relationship Specialty Start Date End Date Rosa Shi MD [address] [place] [address] PCP - General Family Practice 01/15/21 documented as of this encounter
--- OUTSIDE RECORDS SUMMARY | 2024-10-23 02:15 | XMS_ITS | Encounter Summary ---
Author Organization [facility] Address [address] [place] [address] Care Team Providers Care Baker Chef Name Role Phone Rosa Shi MD Primary Care Provider [phone] Encounter Details Date Type Department Care Team (Late Contact Info) Description 07/27/2023 Orders Only [facility] Oncology and Hematology [address] [place] [address] Aaron Smith MD [facility] [employer] [address] [place] [address] Social History Tobacco Use Types Packs/Day Years [...] Encounters Date Type Department Care Team (Late Contact Info) Description 02/12/2025 1:00 PM CDT Office Visit [facility] Oncology and Hematology [address] [place] [address] Aaron Smith MD [facility] [address] [place] [address] 03/29/2025 12:30 PM CDT Appointment [facility] [address] [place] [address] [place] [address] [address] [facility] [address] [place] [address] 03/29/2025 1:30 PM CDT Office Visit [facility] Breast Surgery [address] [address] [address] [facility] [address] [place] [address] [place] [address] [address] [facility] [address] [place] [address] documented as of this encounter Procedures Procedure Name Priority Date/Time Associated Diagnosis Comments FERRITIN Routine 07/26/2023 9:46 AM CDT COMPREHENSIVE METABOLIC PANEL Routine 07/26/2023 9:42 AM CDT CBC WITH DIFFERENTIAL Routine 07/26/2023 9:41 AM CDT documented in this encounter Results * FERRITIN (07/26/2023 9:46 AM CDT) Blood Aaron Smith MD CHEMISTRY ORDERABLES * COMPREHENSIVE METABOLIC PANEL (07/26/2023 9:42 AM CDT) Blood Aaron Smith MD CHEMISTRY ORDERABLES * CBC WITH DIFFERENTIAL (07/26/2023 9:41 AM CDT) Blood Aaron Smith MD HEMATOLOGY ORDERABLE S documented in this encounter Visit Diagnoses Not on filedocumented in this encounter Care Teams Baker Chef Relationship Specialty Start Date End Date Rosa Shi MD [address] [place] [address] PCP - General Family Practice 01/15/21 documented as of this encounter
--- OUTSIDE RECORDS SUMMARY | 2024-10-23 02:15 | XMS_ITS | Encounter Summary ---
Author Organization [facility] [employer] [facility] Address [address] [place] [address] Care Team Providers Care Clay Preparation Supervisor Name Role Phone Rosa Shi MD Primary Care Provider [phone] Encounter Details Date Type Department Care Team (Late Contact Info) Description 03/31/[address] [facility] Oncology and Hematology [address] [place] [address] Aaron Smith MD [facility] [address] [place] [address] Social History Tobacco Use Types Packs/Day [...] Description 02/12/2025 1:00 PM CDT Office Visit [facility] Oncology and Hematology [address] [place] [address] Aaron Smith MD [facility] [address] [address] 03/29/2025 12:30 PM CDT Appointment [facility] [address] [place] [address] [place] [address] [facility] [address] [place] [address] 03/29/2025 1:30 PM CDT Office Visit [facility] Breast Surgery [address] [address] [facility] [address] [place] [address] [place] [address] [facility] [address] [place] [address] documented as of this encounter Procedures Procedure Name Priority Date/Time Associated Diagnosis Comments CBC WITH DIFFERENTIAL Routine 03/31/2024 12:33 PM CDT documented in this encounter Results * CBC WITH DIFFERENTIAL (03/31/2024 12:33 PM CDT) Blood Aaron Smith MD HEMATOLOGY ORDERABLE S documented in this encounter Visit Diagnoses Not on filedocumented in this encounter Care Teams Clay Preparation Supervisor Relationship Specialty Start Date End Date Rosa Shi MD [address] [place] [address] PCP - General Family Practice 01/15/21 documented as of this encounter
--- OUTSIDE RECORDS SUMMARY | 2024-10-23 02:15 | XMS_ITS | Encounter Summary ---
Author Organization [facility] [employer] [facility] Address [address] [place] [address] Care Team Providers Care Soft Boarder Name Role Phone Rosa Shi MD Primary Care Provider [phone] Encounter Details Date Type Department Care Team (Late Contact Info) Description 04/02/2023 Orders Only [facility] Oncology and Hematology Levi Radha [address] [place] [address] Aaron Smith MD [facility] [address] [place] [address] Social History Tobacco Use Types Packs/Day [...] 02/12/2025 1:00 PM CDT Office Visit [facility] Oncology and Hematology Levi Radha Crowell [address] [place] [address] Aaron Smith MD [facility] [address] [address] 03/29/2025 12:30 PM CDT Appointment [facility] [address] [address] [place] [address] [place] [address] [facility] 120 [place] [address] 03/29/2025 1:30 PM CDT Office Visit [facility] Breast Surgery [address] [address] [facility] [facility] [address] [place] [address] [place] [address] [facility] [address] [place] [address] documented as of this encounter Procedures Procedure Name Priority Date/Time Associated Diagnosis Comments CANCER ANTIGEN 15-3 Routine 04/01/2023 9:52 AM CDT documented in this encounter Results * CANCER ANTIGEN 15-3 (04/01/2023 9:52 AM CDT) Blood Aaron Smith MD CHEMISTRY ORDERABLES documented in this encounter Visit Diagnoses Not on filedocumented in this encounter Care Teams Soft Boarder Relationship Specialty Start Date End Date Rosa Shi MD [address] [place] [address] PCP - General Family Practice 01/15/21 documented as of this encounter
--- OUTSIDE RECORDS SUMMARY | 2024-10-23 02:15 | XMS_ITS | Encounter Summary ---
Author Organization [facility] [employer] [facility] Address [address] [place] [address] Care Team Providers Care Engineering Director Name Role Phone Rosa Shi MD Primary Care Provider Encounter Details Date Type Department Care Team (Late Contact Info) Description 10/04/2024 Orders Only [facility] Oncology and Hematology Levi Radha Crowell [address] [place] [address] Aaron Smith MD [facility] [employer] [address] [place] [address] Social History Tobacco Use Types Packs/Day [...] Description 02/12/2025 1:00 PM CDT Office Visit [facility] Oncology and Hematology Levi Radha Crowell [address] [place] [address] Aaron Smith MD [facility] [address] [phone] 03/29/2025 12:30 PM CDT Appointment [facility] [address] [place] [address] [place] [address] [facility] [address] [place] [address] 03/29/2025 1:30 PM CDT Office [facility] Breast Surgery [address] [address] [address] [facility] [address] [place] [address] [place] [address] [facility] [address] [place] [address] documented as of this encounter Procedures Procedure Name Priority Date/Time Associated Diagnosis Comments NM BONE DENSITY Routine 10/02/2024 12:46 PM PLASTICS PRODUCTION 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 documented in this encounter Results * NM BONE DENSITY (10/02/2024 12:46 PM PLASTICS PRODUCTION 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) Anatomical Region Laterality Modality Other Aaron Smith MD NM ORDERABLES documented in this encounter Visit Diagnoses Not on filedocumented in this encounter Care Teams Engineering Director Relationship Specialty Start Date End Date Rosa Shi MD [address] [place] [address] PCP - General Family Practice 01/15/21 documented as of this encounter
--- OUTSIDE RECORDS SUMMARY | 2024-10-23 02:15 | XMS_ITS | Encounter Summary ---
Author Organization [facility] Address [address] [place] [address] Care Team Providers Care Commercial Baker Helper Name Role Phone Rosa Shi MD Primary Care Provider [phone] Encounter Details Date Type Department Care Team (Late st Contact Info) Description 02/29/2024 External Device Data STL ABSTRACTION Provider, Abstract [...] Description 02/12/2025 1:00 PM CDT Office Visit [facility] Oncology and Hematology - Levi 2227 [facility] 200 [place] [address] Aaron Smith MD 2227 [facility] [address] [place] [address] 03/29/2025 12:30 PM CDT Appointment [facility] [address] [place] [address] [place] [address] [facility] [address] [place] [address] 03/29/2025 1:30 PM CDT Office Visit [facility] Breast Surgery [address] [address] [address] [facility] [address] [place] [address] [place] [address] [facility] 120 [place] [address] documented as of this encounter Visit Diagnoses Not on filedocumented in this encounter Care Teams Commercial Baker Helper Relationship Specialty Start Date End Date Rosa Shi MD [address] [place] [phone] PCP - General Family Practice 01/15/21 documented as of this encounter
--- OUTSIDE RECORDS SUMMARY | 2024-10-23 02:15 | XMS_ITS | Encounter Summary ---
Author Organization [facility] Address [address] [place] [address] Care Team Providers Care Sugar Cane Grower Name Role Phone Rosa Shi MD Primary Care Provider [phone] Encounter Details Date Type Department Care Team (Late st Contact Info) Description 12/10/2023 External Device Data STL ABSTRACTION Provider, Abstract [...] Description 02/12/2025 1:00 PM CDT Office Visit [facility] Oncology and Hematology - Levi 2227 [facility] 200 [place] [address] Aaron Smith MD 2227 [facility] [address] [place] [address] 03/29/2025 12:30 PM CDT Appointment [facility] [address] [place] [address] [place] [address] [facility] [address] [place] [address] 03/29/2025 1:30 PM CDT Office Visit [facility] Breast Surgery [address] [address] [facility] [address] [place] [address] [place] [address] [facility] 120 [place] [address] documented as of this encounter Visit Diagnoses Not on filedocumented in this encounter Care Teams Sugar Cane Grower Relationship Specialty Start Date End Date Rosa Shi MD [address] [place] [address] PCP - General Family Practice 01/15/21 documented as of this encounter
--- OUTSIDE RECORDS SUMMARY | 2024-10-23 02:15 | XMS_ITS | Encounter Summary ---
Author Organization [facility] [employer] [facility] Address [address] [place] [address] Care Team Providers Care Hogshead Packer Name Role Phone Rosa Shi MD Primary Care Provider [phone] Encounter Details Date Type Department Care Team (Late st Contact Info) Description 02/15/2023 Orders Only [facility] Oncology and Hematology - Levi Radha Crowell [address] [place] [address] Aaron Smith MD 2229 [facility] [address] [place] [address] 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, estrogen receptor positive; Hypokalemia Social History Tobacco Use Types Packs/Day Years [...] Description 02/12/2025 1:00 PM CDT Office Visit [facility] Oncology and Hematology - Levi [address]Radha [address] [place] [address] Aaron Smith MD [address] [address] 03/29/2025 12:30 PM CDT Appointment [facility] [address] [address] [place] [address] [place] [address] [facility] 120 [place] [address] 03/29/2025 1:30 PM CDT Office Visit [facility] Breast Surgery [address] [address] [facility] [address] [place] [address] [place] [address] [facility] 120 [place] [address] documented as of this encounter Visit Diagnoses Diagnosis 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, estrogen receptor positive Hypokalemia Hypopotassemia documented in this encounter Care Teams Hogshead Packer Relationship Specialty Start Date End Date Rosa Shi MD [address] [place] [address] PCP - General Family Practice 01/15/21 documented as of this encounter
--- OUTSIDE RECORDS SUMMARY | 2024-10-23 02:15 | XMS_ITS | Encounter Summary ---
Author Organization [facility] Address [address] [place] [address] Care Team Providers Care Dental Nurse Name Role Phone Rosa Shi MD Primary Care Provider [phone] Encounter Details Date Type Department Care Team [...] Description 02/12/2025 1:00 PM CDT Office Visit [facility] Oncology and Hematology - Levi 2227 [facility] 200 [place] [address] Aaron Smith MD 2227 [facility] [address] [place] [address] 03/29/2025 12:30 PM CDT Appointment [facility] [address] [address] [place] [address] [place] [address] [facility] [address] [place] [address] 03/29/2025 1:30 PM CDT Office Visit [facility] Breast Surgery [address] [address] [address] [facility] [address] [place] [address] [place] [address] [facility] 120 [place] [address] documented as of this encounter Visit Diagnoses Not on filedocumented in this encounter Care Teams Dental Nurse Relationship Specialty Start Date End Date Rosa Shi MD [address] [place] [address] PCP - General Family Practice 01/15/21 documented as of this encounter
--- OUTSIDE RECORDS SUMMARY | 2024-10-23 02:15 | XMS_ITS | Encounter Summary ---
Author Organization [facility] Address [address] [place] [address] Care Team Providers Care Director Of Academic Name Role Phone Rosa Shi MD Primary Care Provider [phone] Encounter Details Date Type Department Care Team (Late st Contact Info) Description 07/25/2024 External Device Data STL ABSTRACTION Provider, [...] Description 02/12/2025 1:00 PM CDT Office Visit [facility] Oncology and Hematology - Levi 2227 [facility] 200 [place] [address] Aaron Smith MD 2227 [facility] [address] [place] [address] 03/29/2025 12:30 PM CDT Appointment [facility] [address] [place] [address] [place] [address] [facility] [address] [place] [address] 03/29/2025 1:30 PM CDT Office Visit [facility] Breast Surgery [place] [address] [facility] [address] [place] [address] [place] [address] [facility] 120 [place] [address] documented as of this encounter Visit Diagnoses Not on filedocumented in this encounter Care Teams Director Of Academic Relationship Specialty Start Date End Date Rosa Shi MD [address] [place] [address] PCP - General Family Practice 01/15/21 documented as of this encounter
--- OUTSIDE RECORDS SUMMARY | 2024-10-23 02:15 | XMS_ITS | Encounter Summary ---
Author Organization [facility] [employer] [facility] Address [address] [place] [address] Care Team Providers Care Television Cable Installer Name Role Phone Rosa Shi MD Primary Care Provider [phone] Encounter Details Date Type Department Care Team (Late st Contact Info) Description 02/01/2023 Orders Only [facility] Oncology and Hematology - Levi Radha Crowell [address] [place] [address] Aaron Smith MD 2228 [facility] [address] [place] [address] Malignant neoplasm of areola of [...] Description 02/12/2025 1:00 PM CDT Office Visit [facility] Oncology and Hematology - Levi [address]Radha [address] [place] [address] Aaron Smith MD [address] [address] 03/29/2025 12:30 PM CDT Appointment [facility] [address] [address] [place] [address] [place] [address] [facility] 120 [place] [address] 03/29/2025 1:30 PM CDT Office Visit [facility] Breast Surgery [address] [address] [facility] [address] [place] [address] [place] [address] [facility] 120 [place] [address] documented as of this encounter Visit Diagnoses Diagnosis 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, estrogen receptor positive Hypokalemia Hypopotassemia documented in this encounter Care Teams Television Cable Installer Relationship Specialty Start Date End Date Rosa Shi MD [address] [place] [address] PCP - General Family Practice 01/15/21 documented as of this encounter
--- OUTSIDE RECORDS SUMMARY | 2024-10-23 02:15 | XMS_ITS | Encounter Summary ---
Author Organization [facility] Language [employer] [facility] Address [address] [place] [address] Care Team Providers Care Peanut Shaker Name Role Phone Rosa Shi MD Primary Care Provider [phone] Encounter Details Date Type Department Care Team (Late st Contact Info) Description 01/27/2023 Orders Only [facility] Oncology and Hematology - Levi [address] Kim [address] [place] [address] Alma Rosa Lindo RN Osteopenia of multiple sites Social History Tobacco Use Types [...] Description 02/12/2025 1:00 PM CDT Office Visit [facility] Oncology and Hematology - Levi Radha Crowlel 200 [place] [address] Aaron Smith MD 3912 [facility] [address] [place] [address] 03/29/2025 12:30 PM CDT Appointment [facility] [address] [place] [address] [place] [address] [facility] [address] [place] [address] 03/29/2025 1:30 PM CDT Office Visit [facility] Breast Surgery [place] [address] [address] [facility] [address] [place] [address] [place] [address] [facility] [address] [place] [address] documented as of this encounter Visit Diagnoses Diagnosis Osteopenia of multiple sites documented in this encounter Care Teams Peanut Shaker Relationship Specialty Start Date End Date Rosa Shi MD [address] [place] [address] PCP - General Family Practice 01/15/21 documented as of this encounter
--- OUTSIDE RECORDS SUMMARY | 2024-10-23 02:15 | XMS_ITS | Encounter Summary ---
Author Organization [facility] Address [address] [place] [address] Care Team Providers Care Manager Hospice Name Role Phone Rosa Shi MD Primary Care Provider [phone] Encounter Details Date Type Department Care Team (Late st Contact Info) Description 07/04/2024 External Device Data STL ABSTRACTION Provider, Abstract [...] Description 02/12/2025 1:00 PM CDT Office Visit [facility] Oncology and Hematology - Levi 2227 [facility] 200 [place] [address] Aaron Smith MD 2227 [facility] [address] [place] [address] 03/29/2025 12:30 PM CDT Appointment [facility] [address] [address] [place] [address] [place] [address] [facility] [address] [place] [address] 03/29/2025 1:30 PM CDT Office Visit [facility] Breast Surgery [address] [address] [address] [facility] [address] [place] [address] [place] [address] [facility] 120 [place] [address] documented as of this encounter Visit Diagnoses Not on filedocumented in this encounter Care Teams Manager Hospice Relationship Specialty Start Date End Date Rosa Shi MD [address] [place] [address] PCP - General Family Practice 01/15/21 documented as of this encounter
--- OUTSIDE RECORDS SUMMARY | 2024-10-23 02:15 | XMS_ITS | Encounter Summary ---
Author Organization [facility] [employer] [facility] Address [address] [place] [address] Care Team Providers Care Showroom Sales Assistant Name Role Phone Rosa Shi MD Primary Care Provider [phone] Encounter Details Date Type Department Care Team (Late Contact Info) Description 04/03/2024 Orders Only [facility] Oncology and Hematology Levi Radha Crowell [address] [place] [address] Aaron Smith MD [facility] [employer] [address] [place] [address] Social History Tobacco Use Types Packs/Day [...] Description 02/12/2025 1:00 PM CDT Office Visit [facility] Oncology and Hematology Levi Radha Crowell [address] [place] [address] Aaron Smith MD [facility] [address] [address] 03/29/2025 12:30 PM CDT Appointment [facility] [address] [place] [address] [place] [address] [facility] 120 [place] [address] 03/29/2025 1:30 PM CDT Office Visit [facility] Breast Surgery [place] [address] [facility] [address] [place] [address] [place] [address] [facility] 120 [place] [address] documented as of this encounter Procedures Procedure Name Priority Date/Time Associated Diagnosis Comments COMPREHENSIVE METABOLIC PANEL Routine 03/31/2024 2:24 PM CDT documented in this encounter Results * COMPREHENSIVE METABOLIC PANEL (03/31/2024 2:24 PM CDT) Blood Aaron Smith MD CHEMISTRY ORDERABLES documented in this encounter Visit Diagnoses Not on filedocumented in this encounter Care Teams Showroom Sales Assistant Relationship Specialty Start Date End Date Rosa Shi MD [address] [place] [address] PCP - General Family Practice 01/15/21 documented as of this encounter
--- OUTSIDE RECORDS SUMMARY | 2024-10-23 02:15 | XMS_ITS | Encounter Summary ---
Author Organization [facility] Address [address] [place] [address] Care Team Providers Care Business Development Associate Name Role Phone Rosa Shi MD Primary Care Provider [phone] Reason for Referral * Radiology Services (Routine) - Closed Specialty Diagnoses / Procedures Referred By Vi jackson Referred To Contact Diagnoses History of left breast cancer Lymphedema Procedures MAMMO DIAG BILAT 3D JESS W OR WO CAD CHG DIAGNOSTIC MAMMOGRAPHY COMPUTER-AIDED DETCJ BI CHG DIGITAL BREAST TOMOSYNTHES[place] [address] [address] [facility] 120 [place] [address] Referral ID Status Reason Start Date Expiration Date Visits Re quested Visits Authorized [id number] Closed 03/23/2023 04/22/2024 1 1 Reason for Visit * Radiology Services (Routine) - Closed Specialty Diagnoses / Procedures Referred By Vi jackson Referred To Contact Diagnoses History of left breast cancer Lymphedema Procedures MAMMO DIAG BILAT 3D JESS W OR WO CAD CHG DIAGNOSTIC MAMMOGRAPHY COMPUTER-AIDED DETCJ BI CHG DIGITAL BREAST TOMOSYNTHESIS [place] [address] [address] [facility] 120 [place] [address] Referral ID Status Reason Start Date Expiration Date Visits Re quested Visits Authorized [id number] Closed 03/23/2023 04/22/2024 1 1 Encounter Details Date Type Department Care Team (Latest Contact Info) Description 03/28/2024 11:49 AM CDT - 03/28/2024 11:59 PM CDT Hospital Encounter [facility] [address] [place] [address] [place] [address] [address] [place] [address] Discharge Disposition: Home or Self Care Social History Tobacco Use Types Packs/Day Years [...] this encounter Medications at Time of Discharge Medication Sig Dispensed Refills Start Date End Date ibuprofen (MOTRIN) 800 mg tablet Take 800 mg by mouth every 8 hours as needed for Pain. 12/22/2023 cyanocobalamin (VITAMIN B-12) 500 mcg tablet Take 500 mcg by mouth daily. anastrozole (ARIMIDEX) 1 mg tabletIndications:Lynnette gnant neoplasm of areola of left breast in female, estrogen receptor positive take 1 tablet daily 90 Tablet 3 12/06/2023 Trulicity 0.75 mg/0.5 mL injection 0.75 mg by See Admin Instructions route every 7 days. 07/16/2023 cholecalciferol, Vitamin D3, (VITAMIN D3) 25 mcg (1,000 unit) Capsule Take by mouth daily. blood-glucose meter (BLOOD GLUCOSE MONITOR KIT [facility]) Diagnosis: Diabetes type 2 Blood testing frequency: 3 times a day 12/01/2020 ALBUTEROL INHALATION Take 1 Puff by inhalation Continuous as needed. LANCETS [facility] Use as directed 12/01/2020 blood sugar diagnostic Strip Diagnosis: Diabetes type 2 Blood testing frequency: 3 times a day 12/01/2020 fluticasone propion-salmeteroL (ADVAIR DISKUS,WIXELA INHUB) 500-50 mcg/dose disk inhaler Take 1 Puff by inhalation 2 times daily. documented as of this encounter Plan of Treatment Upcoming Encounters Date Type Department Care Team (Late st Contact Info) Description 02/12/2025 1:00 PM CDT Office Visit [facility] Oncology and Hematology - Levi 2227 [facility] 200 [place] [address] Aaron Smith MD 2227 [facility] [address] [place] [address] 03/29/2025 12:30 PM CDT Appointment [facility] [address] [place] [address] [place] [address] [facility] 120 [place] [address] 03/29/2025 1:30 PM CDT Office Visit [facility] Breast Surgery [address] [place] [address] [facility] [address] [place] [address] [place] [address] [facility] 120 [place] [address] documented as of this encounter Procedures Procedure Name Priority Date/Time Associated Diagnosis Comments MAMMO DIAG BILAT 3D JESS W OR WO CAD Routine 03/28/2024 12:33 PM CDT History of left breast cancer Lymphedema documented in this encounter Results * MAMMO DIAG BILAT [...] Visit Diagnoses Diagnosis History of left breast cancer Lymphedema Other lymphedema documented in this encounter Care Teams Business Development Associate Relationship Specialty Start Date End Date Rosa Shi MD [address] [place] [address] PCP - General Family Practice 01/15/21 documented as of this encounter
--- OUTSIDE RECORDS SUMMARY | 2024-10-23 02:15 | XMS_ITS | Encounter Summary ---
Author Organization [facility] Address [address] [place] [address] Care Team Providers Care Oil Seal Assembler Name Role Phone Rosa Shi MD Primary Care Provider [phone] Encounter Details Date Type Department Care Team (Late st Contact Info) Description 03/21/2024 External Device Data STL ABSTRACTION Provider, Abstract [...] Center Oncology and Hematology - Levi 2227 [facility] 200 [place] [address] Aaron Smith MD 2227 [facility] [address] [place] [address] 03/29/2025 12:30 PM CDT Appointment [facility] [address] [place] [address] [place] [address] [facility] [address] [place] [address] 03/29/2025 1:30 PM CDT Office Visit [facility] Breast Surgery [address] [address] [facility] [address] [place] [address] [place] [address] [facility] 120 [place] [address] documented as of this encounter Visit Diagnoses Not on filedocumented in this encounter Care Teams Oil Seal Assembler Relationship Specialty Start Date End Date Rosa Shi MD [address] [place] [address] PCP - General Family Practice 01/15/21 documented as of this encounter
--- OUTSIDE RECORDS SUMMARY | 2024-10-23 02:15 | XMS_ITS | Encounter Summary ---
Author Organization [facility] [employer] [facility] Address [address] [place] [address] Care Team Providers Care Journeyman Plumber Name Role Phone Rosa Shi MD Primary Care Provider [phone] Reason for Visit * Reason Comments Follow Up Encounter Details Date Type Department Care Team (Late st Contact Info) Description 04/05/2023 11:45 AM CDT Office Visit [facility] Oncology and Hematology - [place] [address] [place] [address] [address] [place] [address] Aaron Smith MD [address] [facility] [address] [place] [address] 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, estrogen receptor positive (Primary Dx) Social History Tobacco Use Types [...] Sign Reading Time Taken Comments Blood Pressure 148/63 04/05/2023 11:50 AM CDT Pulse 80 04/05/2023 11:47 AM CDT Temperature 36.1 ??C (97 ??F) 04/05/2023 11:47 AM CDT Respiratory Rate 10 04/05/2023 11:47 AM CDT Oxygen Saturation 98% 04/05/2023 11:47 AM CDT Inhaled Oxygen Concentration - - Weight 98.9 kg (218 lb) 04/05/2023 11:47 AM CDT Height - - Body Mass Index 39.87 03/23/2023 1:11 PM CDT documented in this encounter Progress Notes * Aaron Smith MD - 04/05/2023 12:16 PM CDT HEMATOLOGY / ONCOLOGY PROGRESS NOTE Patient Identification: Name: Rosa Babb Age: 57 y.o. Sex: female : 1965 DIAGNOSIS T2 N1 M0 stage IIB invasive mammary carcinoma status post left breast 9:00 needle biopsy done on January 14, 2021. ER strongly positive, OK weakly positive and HER-2/dez positive. Ultrasound-guided biopsy of satellite nodule 8 mm came back positive for invasive ductal carcinoma and biopsy of one of the nodule 4 mm also came back positive for invasive ductal carcinoma on January 23, 2021. CURRENT TREATMENT Arimidex started September 29, 2021. TREATMENT HISTORY Breast MRI: 01/14/21 Left breast - irregular [...] and 1.7 cm. Right breast - negative Patient had left breast lumpectomy and left axillary sentinel lymph node biopsy done on 06/25/2021 Patient has completed cycle 6/6 of chemotherapy with TCH Perjeta on 05/28/2021. Radiation therapy completed on September 22, 2021 Maintenance Herceptin started September 29, 2021. Completed May 19, 2022 SUBJECTIVE Patient came to the office for follow-up visit after the bone density and mammogram was performed. She is feeling good. Denies any neuropathy. Weight and appetite stable. No new lung bumps or lymphadenopathy. No other new complaints. Review of system Constitutional: denies fevers, sweats, denies any tiredness and fatigue HEENT: denies sinus congestion, hearing or vision problems Respiratory: denies cough, dyspnea, wheeze Cardiovascular: denies chest pain, exertional chest pressure/discomfort, nausea, syncope, shortnessof breath GI: denies dsyphagia, reflux symptoms, melena, denies any nausea vomiting and diarrhea, c : denies dysuria, frequency, incontinence, urgency Integumentary system: no lymphadenopathy, sweats, flushing Musculoskeletal: Denies any arthralgia Neurological: denies blurry or disturbed vision, numbness/weakness, dizziness Skin: No lumps, bumps or rashes. 12 point review system was reviewed Objective: Vital signs in last 24 hours: As per nursing note Exam: General appearance: alert, cooperative, no distress, appears stated age Head: normocephalic, without obvious abnormality, atraumatic Eyes: conjunctivae/corneas clear, EOM's intact Ears: normal external ear canals AU Nose: Nares normal. Septum midline. Mucosa normal. No drainage or sinus tenderness Throat: Lips, mucosa, and tongue normal. Teeth and gums normal Neck: supple, symmetrical, trachea midline. Lungs: clear to auscultation bilaterally Heart: regular rate and rhythm, S1, S2 normal, no murmur, click, rub or gallop Abdomen: soft, non-tender. Bowel sounds normal. No masses, No organomegaly Extremities: extremities normal, atraumatic, no cyanosis or edema Skin: Skin color, texture, turgor normal. No rashes or lesions Lymph nodes: No lymphadenopathy Neuro: No obvious focal deficit Bilateral breast examination showed postoperative and radiation changes in the left breast without any masses and lymphadenopathy. Exam as above PATH LABS Labs from February 16 showed WBC 7.1 hemoglobin 12.9 platelet 306,000 creatinine 0.7. Labs from March 26 showed WBC 5.6 hemoglobin 11.1 and platelets 354,000 creatinine 0.8. Labs from April 16 showed WBC 3.9 hemoglobin 10.6 platelet 252,000 creatinine 0.9 Labs from May 07 showed WBC 3.5 hemoglobin 10.2 platelet 218,000 creatinine 0.8 Labs from May 28 showed WBC 3.9 hemoglobin 10.6 platelet 246,000 ANC 2000 creatinine 0.7 Labs from July 09 showed WBC 5.1 hemoglobin 11.7 platelet 280,000 creatinine 0.8 Labs from August 21 showed WBC 4.3 hemoglobin 13 platelet 249,000 creatinine 0.9 Labs from September 29 showed creatinine 0.7 WBC 3.1 hemoglobin 12.4 platelet 210,000 Labs from November 10 showed WBC 4.1 hemoglobin 11.2 platelet 223,000 creatinine 0.7 Labs from January 08 showed WBC 4.8 hemoglobin 12.4 platelet 246,000 Labs from March 16 showed WBC 5.5 hemoglobin 12.2 platelet 247,000 creatinine 0.8 Labs from March 16 showed WBC 5.5 hemoglobin 12.2 platelet 247,000 CA 15-3 16 Labs from July 27 showed total bilirubin 0.4 WBC 4.3 hemoglobin 13.1 platelet 272,000 CA 15-3 21 creatinine 0.9 Labs from December 07 showed creatinine 0.8 total bilirubin 0.3 CBC normal CA 15-3 17 Labs from March 29 showed WBC 6.0 hemoglobin 12.4 platelet 255,000 creatinine 0.8 total bilirubin 0.4 Assessment: Plan: Patient Active Problem List Diagnosis Date Noted History of left breast cancer 03/23/2023 Malignant neoplasm of left female breast 01/09/2021 Vulvar dermatitis 12/26/2012 Overview Note: Spongiotic by 11/2012 biopsy Vulvar itching 12/09/2012 Overview Note: Chronic, despite medical treatment Chronic vulvitis 12/09/2012 S/P YEHUDA (total abdominal hysterectomy) 06/08/2012 Essential hypertension, benign 06/08/2012 Diabetes mellitus 06/08/2012 Unspecified asthma(493.90) 06/08/2012 History of delivery 06/08/2012 S/P tubal ligation 06/08/2012 Lichen sclerosus et atrophicus of the vulva 06/08/2012 Overview Note: Remote hx of, no evidence on 11/2012 repeat vulvar biopsy T1 N0 M0 stage I invasive ductal carcinoma of the left breast 1 cm size, high- grade with DCIS high-grade and 0/6 sentinel lymph node ER/OK positive and HER- 2/dez positive status post left-sided lumpectomy and left axillary lymph node biopsy done on 06/25/2021. Inferior margin less than 1 mm. Additional margins clear. Patient has completed cycle 6/6 of chemotherapy with TCH Perjeta on 05/28/2021. Patient completed radiation therapy treatment on September 22, 2021. Patient started maintenance Herceptin treatment on September 29, 2021. Completed May 19, 2022. Anastrozole 1 mg daily started September 29, 2021. Labs stable. CA 15-3 normal at 17. Patient had bilateral diagnostic mammogram done on March 23 showedno evidence of disease. On examination there is no evidence of relapse of disease. I will continue to see her back in 4 months. She has been tolerating anastrozole well. Bone health. Bone density done on January 26 showed normal findings. Continue vitamin D. Chemotherapy-induced anemia. Resolved. 04/05/2023 Aaron Smith MD documented in this encounter Plan of Treatment Upcoming Encounters Date Type Department Care Team (Late st Contact Info) Description 02/12/2025 1:00 PM CDT Office Visit [facility] Oncology and H[facility] 2[address] [facility] [address] [place] [address] Araon Smith MD [address] [facility] [address] [place] [address] 03/29/2025 12:30 PM CDT Appointment [facility] [place] [address] [place] [address] [place] [address] [address] 03/29/2025 1:30 PM CDT Office Visit [facility] Breast Surgery [place] [address] [facility] [address] [place] [address] [place] [address] [facility] [address] [place] [address] documented as of this encounter Visit Diagnoses Diagnosis 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, estrogen receptor positive- Primary documented in this encounter Care Teams Journeyman Plumber Relationship Specialty [place] [address] [place] [id number] PCP - General Family Practice 01/15/21 documented as of this encounter
--- OUTSIDE RECORDS SUMMARY | 2024-10-23 02:15 | XMS_ITS | Encounter Summary ---
Author Organization [facility] [employer] [facility] Address [address] [place] [address] Care Team Providers Care Clay Processing Factory Worker Name Role Phone Rosa Shi MD Primary Care Provider Reason for Referral * Radiology Services (Routine) - Closed Specialty Diagnoses / Procedures Referred By Contac t Referred To Contact Diagnoses Osteopenia of multiple sites Procedures XR DEXA BONE DENSITY AXIAL 1 OR MORE SITES Aaron Smith MD [address] [address] [facility] [address] [place] [address] Referral ID Status Reason Start Date Expiration Date V isits Requested Visits Authorized [id number] Closed [facility] CTS 04/12/2024 05/13/2025 1 1 Reason for Visit * Reason Comments Follow Up Cancer Encounter Details Date Type Department Care Team (Late st Contact Info) Description 04/12/2024 11:45 AM CDT Office Visit [facility] Oncology and Hematology - [place] [address] [facility] [address] [place] [address] Aaron Smith MD [address]75 [facility] [address] [place] [address] 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, estrogen receptor positive (Primary Dx); Osteopenia of multiple sites Social History Tobacco [...] Sign Reading Time Taken Comments Blood Pressure 128/68 04/12/2024 11:16 AM CDT Pulse 97 04/12/2024 11:16 AM CDT Temperature 36.6 ??C (97.8 ??F) 04/12/2024 11:13 AM C DT Respiratory Rate 16 04/12/2024 11:13 AM CDT Oxygen Saturation 96% 04/12/2024 11:13 AM CDT Inhaled Oxygen Concentration - - Weight 94.3 kg (208 lb) 04/12/2024 11:13 AM CDT Height - - Body Mass Index 38.04 03/28/2024 1:13 PM CDT documented in this encounter Progress Notes * Aaron Smith MD - 04/12/2024 11:48 AM CDT HEMATOLOGY / ONCOLOGY PROGRESS NOTE Patient Identification: Name: Rosa Babb Age: 58 y.o. Sex: female : 1965 DIAGNOSIS T2 N1 M0 stage IIB invasive mammary carcinoma status post left breast 9:00 needle biopsy done on January 14, 2021. ER strongly positive, ID weakly positive and HER-2/dez positive. Ultrasound-guided biopsy [...] Patient came to the office for follow-up visit. She has been tolerating anastrozole well. Denies any new lumps bumps or lymphadenopathy. Denies any chest pain and shortness of breath. Weight and appetite stable. No other new complaints. Review of system Constitutional: denies fevers, sweats, weight and appetite stable, denies any tiredness and fatigue HEENT: denies sinus congestion, hearing or vision problems Respiratory: denies cough, dyspnea, wheeze Cardiovascular: denies chest pain, exertional chest pressure/discomfort, nausea, syncope, shortnessof breath GI: denies dsyphagia, reflux symptoms, melena, denies any nausea vomiting and diarrhea, c : denies dysuria, frequency, incontinence, urgency Integumentary system: no lymphadenopathy, sweats, flushing Musculoskeletal: Denies any further musculoskeletal discomfort Neurological: denies blurry or disturbed vision, numbness/weakness, dizziness Skin: No lumps, bumps or rashes. 12 point review of system was reviewed Objective: Vital signs in [...] in the left breast without any masses or lymphadenopathy. Exam as above LABS Labs from February 16 showed WBC [...] platelet 255,000 creatinine 0.8 total bilirubin 0.4 Labs from July 26 showed WBC 6.5 hemoglobin 12.9 platelet 285,000 creatinine 0.8 CA 15-3 18 Labs from November 30 showed hemoglobin 13.1 creatinine 0.9 CA 15-3 18 Labs from March 31 showed CA 15-3 19 hemoglobin 13.5 creatinine 0.8 total bilirubin 0.4 Assessment: Plan: Patient Active Problem List Diagnosis Date Noted History of partial mastectomy, left 03/28/2024 Aromatase [...] DCIS high-grade and 0/6 sentinel lymph node ER/ID positive and HER- 2/dez positive status post [...] 1 mg daily started September 29, 2021. Patient had bilateral diagnostic mammogram done on March 28 showed no evidence of disease. Repeat mammogram will be done in 1 year. On my examination there is no evidence of relapse of disease. She will continue anastrozole which she has been tolerating well. I will see her back in 4 months. We will move her appointment to every 6-month basis after next appointment. Bone health. We will order the bone density in 4 months. Continue vitamin D. Chemotherapy-induced anemia. Resolved. TOBACCO COUNSELING She is not a tobacco/nicotine user. 04/12/2024 Aaron Smith MD documented in this encounter Plan of Treatment Upcoming Encounters Date Type Department Care Team (Late st Contact Info) Description 02/12/2025 1:00 PM CDT Office Visit [facility] Oncology and Hematology - [place] 2[address] [facility] [address] [place] [phone] Aaron Smith MD 2223 [facility] [address] [place] [address] 03/29/2025 12:30 PM CDT Appointment [facility] [place] [address] [place] [address] [place] [address] [facility] [address] [place] [address] 03/29/2025 1:30 PM CDT Office Visit [facility] Breast Surgery [place] [address] [facility] [address] [place] [address] [place] [address] [facility] [address] [place] [address] Scheduled Orders Name Type Priority Associated Diagnoses Orde r Schedule CBC WITH DIFFERENTIAL Lab Stat 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, estrogen receptor positive Expected: 08/02/2024, Expires: 04/12/2025 CANCER ANTIGEN 15-3 Lab Routine 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, estrogen receptor positive Expected: 08/02/2024, Expires: 04/12/2025 COMPREHENSIVE METABOLIC PANEL Lab Stat 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, estrogen receptor positive Expected: 08/02/2024, Expires: 04/12/2025 XR DEXA BONE DENSITY AXIAL 1 OR MORE SITES Imaging Routine Osteopenia of multiple sites Expected: 08/12/2024, Expires: 04/12/2025 documented as of this encounter Visit Diagnoses Diagnosis 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, estrogen receptor positive- Primary Osteopenia of multiple sites documented in this encounter Care Teams Clay Processing Factory Worker Relationship Specialty Start Date End Date Rosa Shi MD [address] [place] [phone] PCP - General Family Practice 01/15/21 documented as of this encounter
--- OUTSIDE RECORDS SUMMARY | 2024-10-23 02:15 | XMS_ITS | Encounter Summary ---
Author Organization [facility] Address [address] [place] [address] Care Team Providers Care Contract Administration Manager Name Role Phone Rosa Shi MD Primary Care Provider [phone] Encounter Details Date Type Department Care Team (Late st Contact Info) Description 10/28/2023 External Device Data STL ABSTRACTION Provider, Abstract [...] Center Oncology and Hematology - [place] 2[address] [facility] [address] [place] [address] Aaron Smith MD 2227 [facility] [address] [place] [address] 03/29/2025 12:30 PM CDT Appointment [facility] [address] [address] [place] [address] [place] [address] [facility] [address] [place] [address] 03/29/2025 1:30 PM CDT Office Visit [facility] Breast Surgery [place] [address] [facility] [address] [place] [address] [place] [address] [facility] [address] [place] [address] documented as of this encounter Visit Diagnoses Not on filedocumented in this encounter Care Teams Contract Administration Manager Relationship Specialty Start Date End Date Rosa Shi MD [address] [place] [phone] PCP - General Family Practice 01/15/21 documented as of this encounter
--- OUTSIDE RECORDS SUMMARY | 2024-10-23 02:15 | XMS_ITS | Encounter Summary ---
Author Organization [facility] [employer] [facility] Address [address] [place] [address] Care Team Providers Care Timber Cutter Name Role Phone Rosa Shi MD Primary Care Provider [phone] Reason for Visit * Reason Comments Cancer Follow Up Encounter Details Date Type Department Care Team (Late st Contact Info) Description 08/07/2024 3:30 PM CDT Office Visit [facility] Oncology and Hematology - [place] [address] [place] [address] [address] [place] [address] Aaron Smith MD 2[address] [facility] [address] [place] [address] Malignant neoplasm of areola of [...] (211 lb) 08/07/2024 3:17 PM CDT Height - - Body Mass Index 38.59 03/28/2024 1:13 PM CDT documented in this encounter Progress Notes * Aaron Smith MD - 08/07/2024 4:06 PM CDT HEMATOLOGY / ONCOLOGY PROGRESS NOTE Patient Identification: Name: Rosa Babb Age: 58 y.o. Sex: female : 1965 DIAGNOSIS T2 N1 M0 stage IIB invasive mammary carcinoma status post left breast 9:00 needle biopsy done on January 14, 2021. ER strongly positive, [place] weakly positive and HER-2/dez positive. Ultrasound-guided biopsy [...] has been tolerating anastrozole well. Denies any night sweat but has occasional hot flashes. Denies any new lumps bumps or lymphadenopathy. Weight and appetite stable. No other new complaints. Review of system Constitutional: denies fevers, sweats, denies any tiredness and fatigue, weight and appetite stable. Occasional hot flashes. HEENT: denies sinus congestion, hearing or vision problems Respiratory: denies cough, dyspnea, wheeze Cardiovascular: denies chest pain, exertional chest pressure/discomfort, nausea, syncope, shortnessof breath GI: denies dsyphagia, reflux symptoms, melena, denies any nausea vomiting and diarrhea, c : denies dysuria, frequency, incontinence, urgency Integumentary system: no lymphadenopathy, sweats, flushing Musculoskeletal: Stable musculoskeletal discomfort Neurological: denies blurry or disturbed [...] the left breast without any masses or lymphadenopathy Exam as above LABS Labs from February [...] hemoglobin 13.5 creatinine 0.8 total bilirubin 0.4 Labs from July 26 showed creatinine 0.9 total bilirubin 0.2 WBC 6.4 hemoglobin 13.1 platelet 256,000 CA 15-3 19 Assessment: Plan: Patient Active Problem List Diagnosis [...] DCIS high-grade and 0/6 sentinel lymph node ER/W[place] positive and HER- 2/dez positive status post [...] 1 mg daily started September 29, 2021. The no evidence of relapse of disease on my examination. Labs including tumor marker stable. She will continue anastrozole that she has been tolerating well. Bilateral screening mammogram will be done in March 2025. Follow-up in 6 months. Bone health. Bone density scheduled for October 02. She will continue vitamin D. Chemotherapy-induced anemia. Resolved. 08/07/2024 Aaron Smith MD documented in this encounter Plan of Treatment Upcoming Encounters Date Type Department Care Team (Late st Contact Info) Description 02/12/2025 1:00 PM CDT Office Visit [facility] Oncology and Hematology [facility] [address] [facility] [address] [place] [address] Aaron Smith MD 2[address] [facility] [address] [place] [address] 03/29/2025 12:30 PM CDT Appointment [facility] [address] [address] [address] [place] [address] [address] [address] 03/29/2025 1:30 PM CDT Office Visit [facility] Breast Surgery [place] [address] [place] [address] [place] [address] [place] [address] [place] [address] [place] [address] Scheduled Orders Name Type Priority Associated Diagnoses Orde r Schedule CANCER ANTIGEN 15-3 Lab Routine 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, estrogen receptor positive Expected: 02/05/2025, Expires: 08/07/2025 CBC WITH DIFFERENTIAL Lab Stat 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, estrogen receptor positive Expected: 02/05/2025, Expires: 08/07/2025 COMPREHENSIVE METABOLIC PANEL Lab Stat 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, estrogen receptor positive Expected: 02/05/2025, Expires: 08/07/2025 documented as of this encounter Visit Diagnoses Diagnosis 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, estrogen receptor positive- Primary documented in this encounter Care Teams Timber Cutter Relationship Specialty Start Date End Date Rosa Shi MD [address] [place] [phone] PCP - General Family Practice 01/15/21 documented as of this encounter
--- OUTSIDE RECORDS SUMMARY | 2024-10-23 02:15 | XMS_ITS | Encounter Summary ---
Author Organization [facility] [employer] [facility] Address [address] [place] [address] Care Team Providers Care Elevating Grader Operator Name Role Phone Rosa Shi MD Primary Care Provider [phone] Reason for Visit * Reason Comments Med Refill Encounter Details Date Type Department Care Team (Late st Contact Info) Description 12/06/2023 Refill [facility] Oncology and Hematology [place] [address] [place] [address] Aaron Smith MD [address] [facility] [address] [place] [address] 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, estrogen receptor positive Social History Tobacco Use Types Packs/Day Years [...] and Hematology - [place] [address] [place] [address] Aaron Smith MD [address] [phone] 03/29/2025 12:30 PM CDT Appointment [facility] [place] [address] [facility] [place] [address] [place] [address] [facility] [address] [place] [address] 03/29/2025 1:30 PM CDT Office Visit [facility] Breast Surgery [place] [address] [facility] [address] [place] [address] [place] [address] [facility] [address] [place] [address] documented as of this encounter Visit Diagnoses Diagnosis 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, estrogen receptor positive documented in this encounter Care Teams Elevating Grader Operator Relationship Specialty Start Date End Date Rosa Shi MD [address] [place] [phone] PCP - General Family Practice 01/15/21 documented as of this encounter
--- OUTSIDE RECORDS SUMMARY | 2024-10-23 02:15 | XMS_ITS | Encounter Summary ---
Author Organization [facility] [employer] [facility] Address [address] [place] [address] Care Team Providers Care Agent Telegrapher Name Role Phone Rosa Shi MD Primary Care Provider [phone] Encounter Details Date Type Department Care Team (Late st Contact Info) Description 01/18/2023 Orders Only [facility] Oncology and Hematology - [place] [address] [place] [address] Aaron Smith MD [address] [facility] [address] [place] [address] Malignant neoplasm of areola of [...] Description 02/12/2025 1:00 PM CDT Office Visit [facility] Oncology and Hematology - [place] [address] [place] [address] Aaron Smith MD [address] [address] 03/29/2025 12:30 PM CDT Appointment [facility] [address] [place] [address] [place] [address] [facility] 120 [place] [address] 03/29/2025 1:30 PM CDT Office Visit [facility] Breast Surgery [address] [address] [facility] [address] [place] [address] [place] [address] [facility] 120 [place] [address] documented as of this encounter Visit Diagnoses Diagnosis 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, estrogen receptor positive Hypokalemia Hypopotassemia documented in this encounter Care Teams Agent Telegrapher Relationship Specialty Start Date End Date Rosa Shi MD [address] [place] [address] PCP - General Family Practice 01/15/21 documented as of this encounter
--- OUTSIDE RECORDS SUMMARY | 2024-10-23 02:15 | XMS_ITS | Encounter Summary ---
Author Organization [facility] [employer] [facility] Address [address] [place] [address] Care Team Providers Care Psychiatric Rn Name Role Phone Rosa Shi MD Primary Care Provider [phone] Encounter Details Date Type Department Care Team (Late Contact Info) Description 12/02/2023 Orders Only [facility] Oncology and Hematology [place] Radha [address] [place] [address] Aaron Smith MD [facility] [employer] [address] [place] [address] Social History Tobacco Use Types Packs/Day [...] Description 02/12/2025 1:00 PM CDT Office Visit [facility] Oncology and Hematology [place] [address]ha [address] [place] [address] Aaron Smith MD [facility] [address] [address] 03/29/2025 12:30 PM CDT Appointment [facility] [address] [place] [address] [place] [address] [facility] [address] [place] [address] 03/29/2025 1:30 PM CDT Office Visit [facility] Breast Surgery [address] [address] [facility] [address] [place] [address] [place] [address] [facility] [address] [place] [address] documented as of this encounter Procedures Procedure Name Priority Date/Time Associated Diagnosis Comments COMPREHENSIVE METABOLIC PANEL Routine 11/30/2023 9:03 AM PAEDIATRICIAN documented in this encounter Results * COMPREHENSIVE METABOLIC PANEL (11/30/2023 9:03 AM PAEDIATRICIAN) Blood Aaron Smith MD CHEMISTRY ORDERABLES documented in this encounter Visit Diagnoses Not on filedocumented in this encounter Care Teams Psychiatric Rn Relationship Specialty Start Date End Date Rosa Shi MD [address] [place] [address] PCP - General Family Practice 01/15/21 documented as of this encounter
--- OUTSIDE RECORDS SUMMARY | 2024-10-23 02:15 | XMS_ITS | Encounter Summary ---
Author Organization [facility] [employer] [facility] Address [address] [place] [address] Care Team Providers Care Inspector Rough Castings Name Role Phone Rosa Shi MD Primary Care Provider [phone] Reason for Visit * Reason Comments Follow Up Encounter Details Date Type Department Care Team (Late st Contact Info) Description 12/13/2023 2:15 PM ALUMNI COORDINATOR Office Visit [facility] Oncology and Hematology - [place] [address] [place] [address] [facility] 200 [place] [address] Aaron Smith MD [address] [facility] [address] [place] [address] Malignant neoplasm of areola of [...] Sign Reading Time Taken Comments Blood Pressure 121/67 12/13/2023 2:21 PM ALUMNI COORDINATOR Pulse 109 12/13/2023 2:21 PM ALUMNI COORDINATOR Temperature 35.7 ??C (96.2 ??F) 12/13/2023 2:21 PM CS T Respiratory Rate 14 12/13/2023 2:21 PM ALUMNI COORDINATOR Oxygen Saturation 96% 12/13/2023 2:21 PM ALUMNI COORDINATOR Inhaled Oxygen Concentration - - Weight 97.5 kg (215 lb) 12/13/2023 2:21 PM ALUMNI COORDINATOR Height - - Body Mass Index 39.32 03/23/2023 1:11 PM CDT documented in this encounter Progress Notes * Aaron Smith MD - 12/13/2023 3:42 PM CST HEMATOLOGY / ONCOLOGY PROGRESS NOTE Patient Identification: Name: Rosa Babb Age: 58 y.o. Sex: female : 1965 DIAGNOSIS T2 N1 M0 stage IIB invasive mammary carcinoma status post left breast 9:00 needle biopsy done on January 14, 2021. ER strongly positive, MS weakly positive and HER-2/dez positive. Ultrasound-guided biopsy [...] to the office for follow-up visit. She denies any new lumps bumps or lymphadenopathy. She has been tolerating anastrozole without any significant side effects. Denies any new complaints. Review of system Constitutional: denies fevers, sweats, denies any tiredness and fatigue, weight and appetite stable HEENT: denies sinus congestion, hearing or vision [...] any masses and lymphadenopathy. 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 Inferior margin less than 1 mm. Additional margins clear. Patient has completed cycle 6/6 of chemotherapy with TCRafael Brycejeta on 05/28/2021. Patient completed radiation therapy treatment on September 22, 2021. Patient started maintenance Herceptin treatment on September 29, 2021. Completed May 19, 2022. Anastrozole 1 mg daily started September 29, 2021. Labs including tumor marker stable. There is no evidence of relapse of disease on my examination. She will continue anastrozole which she has been tolerating well. She will have repeat bilateral screening mammogram in February 2024. Follow-up with me in 4 months for total of 3 years duration then we will change appointment to every 6 months basis. Bone health. Continue vitamin D. Chemotherapy-induced anemia. Resolved. TOBACCO COUNSELING She is not a tobacco/nicotine user. 12/13/2023 Aaron Smith MD NI COORDINATOR documented in this encounter Plan of Treatment Upcoming Encounters Date Type Department Care Team (Late st Contact Info) Description 02/12/2025 1:00 PM CDT Office Visit [facility] Oncology and Hematology - [place] [address] [place] [address] [address] [place] [phone] Aaron Smith MD [address] [facility] [address] [place] [address] 03/29/2025 12:30 PM CDT Appointment [facility] [address] [place] [address] [place] [address] [address] [place] [address] 03/29/2025 1:30 PM CDT Office Visit [facility] Breast Surgery [address] [address] [place] [address] [place] [address] [place] [address] [address] [place] [address] Scheduled Orders Name Type Priority Associated Diagnoses Orde r Schedule CBC WITH DIFFERENTIAL Lab Stat 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, estrogen receptor positive Expected: 04/03/2024, Expires: 12/13/2024 CANCER ANTIGEN 15-3 Lab Routine 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, estrogen receptor positive Expected: 04/03/2024, Expires: 12/13/2024 COMPREHENSIVE METABOLIC PANEL Lab Stat 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, estrogen receptor positive Expected: 04/03/2024, Expires: 12/13/2024 documented as of this encounter Visit Diagnoses Diagnosis 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, estrogen receptor positive- Primary documented in this encounter Care Teams Inspector Rough Castings Relationship Specialty Start Date End Date Rosa Shi MD [address] [place] [address] PCP - General Family Practice 01/15/21 documented as of this encounter
--- OUTSIDE RECORDS SUMMARY | 2024-10-23 02:15 | XMS_ITS | Encounter Summary ---
Author Organization [facility] Address [address] [place] [address] Care Team Providers Care Implementation Analyst Name Role Phone Rosa Shi MD Primary Care Provider [phone] Reason for Referral * Radiology Services (Routine) - Closed Specialty Diagnoses / Procedures Referred By Vi jackson Referred To Contact Diagnoses Malignant neoplasm of left female breast, unspecified estrogen receptor status, unspecified site of breast Lymphedema Procedures MAMMO DIAG BILAT 3D JESS W OR WO CAD CHG DIAGNOSTIC MAMMOGRAPHY COMPUTER-AIDED DETCJ BI CHG DIGITAL BREAST TOMOSYNTH[place] [address] [facility] [address] [place] [address] Referral ID Status Reason Start Date Expiration Date Visits Re quested Visits Authorized [id number] Closed 09/22/2022 10/23/2023 1 1 Reason for Visit * Radiology Services (Routine) - Closed Specialty Diagnoses / Procedures Referred By Vi jackson Referred To Contact Diagnoses Malignant neoplasm of left female breast, unspecified estrogen receptor status, unspecified site of breast Lymphedema Procedures MAMMO DIAG BILAT 3D JESS W OR WO CAD CHG DIAGNOSTIC MAMMOGRAPHY COMPUTER-AIDED DETCJ BI CHG DIGITAL BREAST TOMOSYNTHES[place] [address] [facility] [address] [place] [address] Referral ID Status Reason Start Date Expiration Date Visits Re quested Visits Authorized [id number] Closed 09/22/2022 10/23/2023 1 1 Encounter Details Date Type Department Care Team (Latest Contact Info) Description 03/23/2023 12:00 PM CDT - 03/23/2023 11:59 PM CDT Hospital Encounter [facility] [address] [place] [phone] [place] [address] [address] [address] [place] [address] Discharge Disposition: Home or Self Care [...] Sig Dispensed Refills Start Date End Date cholecalciferol, Vitamin D3, (VITAMIN D3) 25 mcg (1,000 unit) Capsule Take by mouth daily. blood-glucose meter (BLOOD GLUCOSE MONITOR KIT [facility]) Diagnosis: Diabetes type 2 Blood testing frequency: 3 times a day 12/01/2020 ALBUTEROL INHALATION Take 1 Puff by inhalation Continuous as needed. LANCETS [facility] Use as directed 12/01/2020 blood sugar diagnostic Strip Diagnosis: Diabetes type 2 Blood testing frequency: 3 times a day 12/01/2020 fluticasone propion-salmeteroL (ADVAIR DISKUS,WIXELA INHUB) 500-50 mcg/dose disk inhaler Take 1 Puff by inhalation 2 times daily. anastrozole (Arimidex) 1 mg tabletIndications:Lynnette gnant neoplasm of areola of left breast in female, estrogen receptor positive Take 1 Tablet (1 mg) by mouth daily. 90 Tablet 3 10/15/2022 12/06/2023 documented as of this encounter Plan of Treatment Upcoming Encounters Date Type Department Care Team (Late st Contact Info) Description 02/12/2025 1:00 PM CDT Office Visit [facility] Oncology and Hematology - [place] [address] [facility] [address] [place] [address] Aaron Smith MD [address] [facility] [address] [place] [address] 03/29/2025 12:30 PM CDT Appointment [facility] [address] [place] [address] [place] [address] [facility] [address] [place] [address] 03/29/2025 1:30 PM CDT Office Visit [facility] Breast Surgery [address] [address] [facility] [address] [place] [address] [place] [address] [facility] [address] [place] [address] documented as of this encounter Procedures Procedure Name Priority Date/Time Associated Diagnosis Comments MAMMO DIAG BILAT 3D JESS W OR WO CAD Routine 03/23/2023 12:30 PM CDT Malignant neoplasm of left female breast, unspecified estrogen receptor status, unspecified site of breast Lymphedema documented in this encounter Results * MAMMO DIAG BILAT 3D JESS W OR WO CAD (03/23/2023 12:30 PM CDT) Anatomical Region Laterality Modality Breast Bilateral Mammography 03/23/2023 12:3 0 PM CDT Impressions 03/23/2023 1:27 PM CDT IMPRESSION: No suspicious finding within either breast. Annual mammography recommended. BI-RADS Category 2: Benign findings DICTATION LOCATION: [facility] Narrative 03/23/2023 1:27 PM CDT EXAM: BILATERAL DIGITAL DIAGNOSTIC MAMMOGRAPHY WITH TOMOSYNTHESIS AND CAD Exam date: 03/23/2023 INDICATION: Personal history of left breast cancer treated with conservation therapy. No current breast complaint. COMPARISON: 03/24/2022 mammography and older. BREAST COMPOSITION: There are scattered areas of fibroglandular density. FINDINGS: Redemonstration of the left breast conservation therapy changes. There are no suspicious masses or calcifications within either breast. There has been no significant interval change since her mammogram performed on 03/24/2022. Procedure Note Chirs Simmons MD - 03/23/2023 EXAM: BILATERAL DIGITAL DIAGNOSTIC MAMMOGRAPHY WITH TOMOSYNTHESIS AND CAD Exam date: 03/23/2023 INDICATION: Personal history of left breast cancer treated with conservation therapy. No current breast complaint. COMPARISON: 03/24/2022 mammography and older. BREAST COMPOSITION: There are scattered areas of fibroglandular density. FINDINGS: Redemonstration of the left breast conservation therapy changes. There are no suspicious masses or calcifications within either breast. There has been no significant interval change since her mammogram performed on 03/24/2022. IMPRESSION: No suspicious finding within either breast. Annual mammography recommended. BI-RADS Category 2: Benign findings DICTATION LOCATION: [facility] Chayo Zepeda MD MAMMO ORDERABLES documented in this encounter Visit Diagnoses Diagnosis Malignant neoplasm of left female breast, unspecified estrogen receptor status, unspecified site of breast Lymphedema Other lymphedema documented in this encounter Care Teams Implementation Analyst Relationship Specialty Start Date End Date Rosa Shi MD [address] [place] [address] PCP - General Family Practice 01/15/21 documented as of this encounter
--- OUTSIDE RECORDS SUMMARY | 2024-10-23 02:15 | XMS_ITS | Encounter Summary ---
Author Organization [facility] [employer] [facility] Address [address] [place] [address] Care Team Providers Care Weir Fisher Name Role Phone Rosa Shi MD Primary Care Provider [phone] Encounter Details Date Type Department Care Team (Late Contact Info) Description 04/04/[address] [facility] Oncology and Hematology [place] [address] [place] [address] Aaron Smith MD [facility] [employer] [address] [place] [address] Social History Tobacco Use Types Packs/Day [...] 02/12/2025 1:00 PM CDT Office Visit [facility] Oncology and Hematology [place] [address]ha [address] [place] [address] Aaron Smith MD [facility] [address] [phone] 03/29/2025 12:30 PM CDT Appointment [facility] [address] [place] [address] [place] [address] [facility] [address] [place] [address] 03/29/2025 1:30 PM CDT Office Visit [facility] Breast Surgery [address] [address] [facility] [address] [place] [address] [place] [address] [facility] [address] [place] [address] documented as of this encounter Procedures Procedure Name Priority Date/Time Associated Diagnosis Comments CANCER ANTIGEN 15-3 Routine 03/31/2024 10:49 AM CDT documented in this encounter Results * CANCER ANTIGEN 15-3 (03/31/2024 10:49 AM CDT) Blood Aaron Smith MD CHEMISTRY ORDERABLES documented in this encounter Visit Diagnoses Not on filedocumented in this encounter Care Teams Weir Fisher Relationship Specialty Start Date End Date Rosa Shi MD [address] [place] [address] PCP - General Family Practice 01/15/21 documented as of this encounter
--- OUTSIDE RECORDS SUMMARY | 2024-10-23 02:15 | XMS_ITS | Encounter Summary ---
Author Organization [facility] [employer] [facility] Address [address] [place] [address] Care Team Providers Care Area Field Person Name Role Phone Rosa Shi MD Primary Care Provider [phone] Encounter Details Date Type Department Care Team (Late Contact Info) Description 12/06/2023 Orders Only [facility] Oncology and Hematology [place] [address] [place] [address] Aaron Smith MD [facility] [employer] [address] [place] [address] Social History Tobacco Use Types Packs/Day [...] Description 02/12/2025 1:00 PM CDT Office Visit [facility] Oncology and Hematology [place] [address] [place] [address] Aaron Smith MD [facility] [address] [address] 03/29/2025 12:30 PM CDT Appointment [facility] [address] [place] [address] [place] [address] [facility] 120 [place] [address] 03/29/2025 1:30 PM CDT Office Visit [facility] Breast Surgery [address] [address] [facility] [address] [place] [address] [place] [address] [facility] [address] [place] [address] documented as of this encounter Procedures Procedure Name Priority Date/Time Associated Diagnosis Comments CANCER ANTIGEN 15-3 Routine 11/30/2023 2:18 PM MANAGER PSYCHOLOGY documented in this encounter Results * CANCER ANTIGEN 15-3 (11/30/2023 2:18 PM MANAGER PSYCHOLOGY) Blood Aaron Smith MD CHEMISTRY ORDERABLES documented in this encounter Visit Diagnoses Not on filedocumented in this encounter Care Teams Area Field Person Relationship Specialty Start Date End Date Rosa Shi MD [address] [place] [address] PCP - General Family Practice 01/15/21 documented as of this encounter
--- OUTSIDE RECORDS SUMMARY | 2024-10-23 02:15 | XMS_ITS | Encounter Summary ---
Author Organization [facility] [employer] [facility] Address [address] [place] [address] Care Team Providers Care [employer] Contact Printer Name Role Phone Rosa Shi MD Primary Care Provider [phone] Encounter Details Date Type Department Care Team (Late Contact Info) Description 07/29/2023 Orders Only [facility] Oncology and Hematology [place] [address] [place] [address] Aaron Smith MD [facility] [employer] [address] [place] [address] Social History Tobacco Use Types Packs/Day [...] Description 02/12/2025 1:00 PM CDT Office Visit [facility] Oncology and Hematology - [place] Radha [address] [place] [address] Aaron Smith MD [facility] [address] [address] 03/29/2025 12:30 PM CDT Appointment [facility] [address] [place] [address] [place] [address] [facility] 120 [place] [address] 03/29/2025 1:30 PM CDT Office Visit [facility] Breast Surgery [address] [address] [facility] [address] [place] [address] [place] [address] [facility] 120 [place] [address] documented as of this encounter Procedures Procedure Name Priority Date/Time Associated Diagnosis Comments CANCER ANTIGEN 15-3 Routine 07/26/2023 2:35 PM CDT documented in this encounter Results * CANCER ANTIGEN 15-3 (07/26/2023 2:35 PM CDT) Blood Aaron Smith MD CHEMISTRY ORDERABLES documented in this encounter Visit Diagnoses Not on filedocumented in this encounter Care Teams [employer]ed [employer] Boards Contact Printer Relationship Specialty Start Date End Date Rosa Shi MD [address] [place] [address] PCP - General Family Practice 01/15/21 documented as of this encounter
--- OUTSIDE RECORDS SUMMARY | 2024-10-23 02:15 | XMS_ITS | Encounter Summary ---
Author Organization [facility] Address [address] [place] [address] Care Team Providers Care Poultry Eviscerator Name Role Phone Rosa Shi MD Primary Care Provider [phone] Encounter Details Date Type Department Care Team (Late st Contact Info) Description 12/13/2023 External Device Data STL ABSTRACTION Provider, Abstract [...] Description 02/12/2025 1:00 PM CDT Office Visit [facility] Oncology and Hematology - [place] [address] [facility] 200 [place] [address] Aaron Smith MD [address] [facility] [address] [place] [address] 03/29/2025 12:[address] [facility] [address] [place] [address] [place] [address] [facility] [address] [place] [address] 03/29/2025 1:30 PM CDT Office Visit [facility] Breast Surgery [address] [address] [facility] [address] [place] [address] [place] [address] [facility] 120 [place] [address] documented as of this encounter Visit Diagnoses Not on filedocumented in this encounter Care Teams Poultry Eviscerator Relationship Specialty Start Date End Date Rosa Shi MD [address] [place] [address] PCP - General Family Practice 01/15/21 documented as of this encounter
--- OUTSIDE RECORDS SUMMARY | 2024-10-23 02:15 | XMS_ITS | Encounter Summary ---
Author Organization [facility] [employer] [facility] Address [address] [place] [address] Care Team Providers Care Named Account Executive Name Role Phone Rosa Shi MD Primary Care Provider [phone] Reason for Visit * Reason Comments Cancer Encounter Details Date Type Department Care Team (Late st Contact Info) Description 08/02/2023 2:00 PM CDT Office Visit [facility] Oncology and Hematology - [place] [address] [place] [address] 200 [place] [address] Aaron Smith MD 2[address] [facility] [address] [place] [address] Malignant neoplasm of areola of [...] Sign Reading Time Taken Comments Blood Pressure 140/79 08/02/2023 2:10 PM CDT Pulse 92 08/02/2023 2:10 PM CDT Temperature 36.3 ??C (97.3 ??F) 08/02/2023 2:10 PM CD T Respiratory Rate 16 08/02/2023 2:10 PM CDT Oxygen Saturation 97% 08/02/2023 2:10 PM CDT Inhaled Oxygen Concentration - - Weight 98.4 kg (217 lb) 08/02/2023 2:10 PM CDT Height - - Body Mass Index 39.69 03/23/2023 1:11 PM CDT documented in this encounter Progress Notes * Aaron Smith MD - 08/02/2023 2:26 PM CDT HEMATOLOGY / ONCOLOGY PROGRESS NOTE Patient Identification: Name: Rosa Babb Age: 57 y.o. Sex: female : 1965 DIAGNOSIS T2 N1 M0 stage IIB invasive mammary carcinoma status post left breast 9:00 needle biopsy done on January 14, 2021. ER strongly positive, WV weakly positive and HER-2/dez positive. Ultrasound-guided biopsy [...] for follow-up visit. She has been tolerating Arimidex well other than some tiredness. No hot flashes or night sweats. No new lumps lumps lymphadenopathy. She lost 1 pound weight. No other new complaints. Review of system Constitutional: denies fevers, sweats, denies any tiredness and fatigue, 1 pound weight loss HEENT: denies sinus congestion, hearing or vision [...] platelet 285,000 creatinine 0.8 CA 15-3 18 Assessment: Plan: Patient Active [...] DCIS high-grade and 0/6 sentinel lymph node ER/WV positive and HER- 2/dez positive status post [...] 1 mg daily started September 29, 2021. There is no evidence of relapse of disease on my examination. Labs including tumor marker stable. She will have bilateral diagnostic mammogram in March 2024. I plan to see her back in 4 months for total of 3 years duration and after that we will see her back on every 6 months duration until 5 years elizabeth. Bone health. She will continue vitamin D. Chemotherapy-induced anemia. Resolved. 08/02/2023 Aaron Smith MD documented in this encounter Plan of Treatment Upcoming Encounters Date Type Department Care Team (Late st Contact Info) Description 02/12/2025 1:00 PM CDT Office Visit [facility] Oncology and Hematology [facility] [address] [place] [address] [address] [place] [phone] Aaron Smith MD 2[address] [facility] [address] [place] [phone] 03/29/2025 12:30 PM CDT Appointment [facility] [address] [place] [address] [place] [address] [address] [place] [address] 03/29/2025 1:30 PM CDT Office Visit [facility] Breast Surgery [place] [address] [facility] [address] [place] [address] [place] [address] [facility] 120 [place] [address] documented as of this encounter Visit Diagnoses Diagnosis 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, estrogen receptor positive- Primary documented in this encounter Care Teams Named Account Executive Relationship Specialty Start Date End Date Roas Shi MD [address] [place] [address] PCP - General Family Practice 01/15/21 documented as of this encounter
--- OUTSIDE RECORDS SUMMARY | 2024-10-23 02:15 | XMS_ITS | Encounter Summary ---
Author Organization [facility] [employer] [facility] Address [address] [place] [address] Care Team Providers Care Probe Operator Name Role Phone Rosa Shi MD Primary Care Provider [phone] Encounter Details Date Type Department Care Team (Late st Contact Info) Description 07/28/2024 Orders Only [facility] Oncology and Hematology [place] [address] [place] [address] Aaron Smith MD [facility] [address] [place] [address] Social History Tobacco Use Types Packs/Day [...] Visit [facility] Oncology and Hematology [place] [address] [place] [address] Aaron Smith MD [facility] [address] [place] [address] 03/29/2025 12:30 PM CDT Appointment [facility] [address] [place] [place] [address] [place] [address] [address] [facility] [address] [place] [address] 03/29/2025 1:30 PM CDT Office Visit [facility] Breast Surgery [place] [address] [address] [facility] [address] [place] [address] [place] [address] [address] [facility] [address] [place] [address] documented as of this encounter Procedures Procedure Name Priority Date/Time Associated Diagnosis Comments CANCER ANTIGEN 15-3 Routine 07/27/2024 2 :27 PM CDT COMPREHENSIVE METABOLIC PANEL Routine 07/26/2024 11:10 AM CDT CBC WITH DIFFERENTIAL Routine 07/26/2024 10:16 AM CDT documented in this encounter Results * CANCER ANTIGEN 15-3 (07/27/2024 2:27 PM CDT) Blood Aaron Smith MD CHEMISTRY ORDERABLES * COMPREHENSIVE METABOLIC PANEL (07/26/2024 11:10 AM CDT) Blood Aaron Smith MD CHEMISTRY ORDERABLES * CBC WITH DIFFERENTIAL (07/26/2024 10:16 AM CDT) Blood Aaron Smith MD HEMATOLOGY ORDERABLE S documented in this encounter Visit Diagnoses Not on filedocumented in this encounter Care Teams Probe Operator Relationship Specialty Start Date End Date Rosa Shi MD [address] [place] [address] PCP - General Family Practice 01/15/21 documented as of this encounter
--- OUTSIDE RECORDS SUMMARY | 2024-10-23 02:15 | XMS_ITS | Encounter Summary ---
Author Organization [facility] Address [address] [place] [address] Care Team Providers Care Insurance Administrative Assistant Name Role Phone Rosa Shi MD Primary Care Provider [phone] Encounter Details Date Type Department Care Team (Late st Contact Info) Description 08/28/2024 External Device Data STL ABSTRACTION Provider, [...] Center Oncology and Hematology - [place] [address] [facility] 200 [place] [address] Aaron Smith MD [address]227 [facility] [address] [place] [address] 03/29/2025 12:30 PM CDT Appointment [facility] [address] [place] [address] [place] [address] [facility] [address] [place] [address] 03/29/2025 1:30 PM CDT Office Visit [facility] Breast Surgery [place] [address] [facility] [address] [place] [address] [place] [address] [facility] 120 [place] [address] documented as of this encounter Visit Diagnoses Not on filedocumented in this encounter Care Teams Insurance Administrative Assistant Relationship Specialty Start Date End Date Rosa Shi MD [address] [place] [address] PCP - General Family Practice 01/15/21 documented as of this encounter
--- OUTSIDE RECORDS SUMMARY | 2024-10-23 02:16 | XMS_ITS | Encounter Summary ---
Author Organization [facility] [employer] [facility] Address [address] [place] [address] Care Team Providers Care Supervisor Contingents Name Role Phone Rosa Shi MD Primary Care Provider [phone] Encounter Details Date Type Department Care Team (Late st Contact Info) Description 04/29/2022 Orders Only [facility] Oncology and Hematology - [place] 2227 [facility] 200 [place] [address] Aaron Smith MD 2[address] [facility] [address] [place] [address] Malignant neoplasm of areola of [...] Exposure Response Date Recorded In the last 10 days, have yo u been in contact with someone who was confirmed or suspected to have Coronavirus/COVID-19? No / Unsure 04/28/2022 10:38 AM CDT documented as of this encounter Plan of Treatment Upcoming Encounters Date Type Department Care Team (Late st Contact Info) Description 02/12/2025 1:00 PM CDT Office Visit [facility] Oncology and Hematology - [place] 2227 [facility] 200 [place] [address] Aaron Smith MD [address] [facility] [address] [place] [address] 03/29/2025 12:30 PM CDT Appointment [facility] [address] [place] [address] [place] [address] [facility] [address] [place] [address] 03/29/2025 1:30 PM CDT Office Visit [facility] Breast Surgery [facility] [address] [facility] [address] [place] [address] [place] [address] [facility] [address] [place] [address] documented as of this encounter Visit Diagnoses Diagnosis 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, estrogen receptor positive documented in this encounter Care Teams Supervisor Contingents Relationship Specialty Start Date End Date Rosa Shi MD [address] [place] [address] PCP - General Family Practice 01/15/21 documented as of this encounter
--- OUTSIDE RECORDS SUMMARY | 2024-10-23 02:16 | XMS_ITS | Encounter Summary ---
Author Organization [facility] [employer] [facility] Address [address] [place] [address] Care Team Providers Care Neon Sign Worker Name Role Phone Rosa Shi MD Primary Care Provider [phone] Reason for Referral * Radiology Services (Urgent) - Closed Specialty Diagnoses / Procedures Referred By Contac t Referred To Contact Diagnoses 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, estrogen receptor positive Procedures ECHO COMPLETE Aaron Smith MD [address] [address] [place] [address] [place] [address] [place] [address] Referral ID Status Reason Start Date Expiration Date V isits Requested Visits Authorized [id number] Closed STL CTS 04/08/2022 10/24/2022 1 1 Encounter Details Date Type Department Care Team (Late st Contact Info) Description 04/06/2022 Orders Only [facility] Oncology and Hematology [facility] [place] [facility] [address] [facility] [address] [place] [address] Aaron Smith MD [address] [address] [place] [address] Malignant neoplasm of areola of left breast [...] suspected to have Coronavirus/COVID-19? No / Unsure 03/24/2022 8:03 AM CDT documented as of this encounter Plan of Treatment Upcoming Encounters Date Type Department Care Team (Late st Contact Info) Description 02/12/2025 1:00 PM CDT Office Visit [facility] Oncology and Hematology - [place] [address] [place] [address] [facility] 200 [place] [address] Aaron Smith MD 2227 [facility] [address] [place] [address] 03/29/2025 12:30 PM CDT Appointment [facility] [address] [address] [place] [address] [place] [address] [address] 03/29/2025 1:30 PM CDT Office Visit [facility] Breast Surgery [place] [address] [address] [facility] [address] [place] [address] [place] [address] [address] Scheduled Orders Name Type Priority Associated Diagnoses Orde r Schedule ECHO COMPLETE Echocardiogram Stat 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, estrogen receptor positive Expected: 05/08/2022, Expires: 04/08/2023 documented as of this encounter Visit Diagnoses Diagnosis 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, estrogen receptor positive Hypokalemia Hypopotassemia documented in this encounter Care Teams Neon Sign Worker Relationship Specialty Start Date End Date Rosa Shi MD [address] [place] [address] PCP - General Family Practice 01/15/21 documented as of this encounter
--- OUTSIDE RECORDS SUMMARY | 2024-10-23 02:16 | XMS_ITS | Encounter Summary ---
Author Organization [facility] Address [address] [place] [address] Care Team Providers Care Operations Support Coordinator Name Role Phone Rosa Shi MD Primary Care Provider [phone] Encounter Details Date Type Department Care Team (Late st Contact Info) Description 09/21/2022 Orders Only [facility] Oncology and Hematology - [place] 2227 [facility] 200 [place] [address] Aaron Smith MD 2227 [facility] [address] [place] [address] Malignant neoplasm of areola of [...] suspected to have Coronavirus/COVID-19? No / Unsure 09/22/2022 1:13 PM CARDIAC CATH LAB RADIOLOGY TECHNOLOGIST documented as of this encounter Plan of Treatment Upcoming Encounters Date Type Department Care Team (Late st Contact Info) Description 02/12/2025 1:00 PM CDT Office Visit [facility] Oncology and Hematology - [place] 2227 [facility] [address] [place] [address] Aaron Smith MD [address] [facility] [address] [place] [address] 03/29/2025 12:30 PM CDT Appointment [facility] [place] [address] [place] [address] [place] [address] [facility] 120 [place] [address] 03/29/2025 1:30 PM CDT Office Visit [facility] Breast Surgery [place] [address] [facility] [address] [place] [address] [place] [address] [facility] 120 [place] [address] documented as of this encounter Visit Diagnoses Diagnosis 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, estrogen receptor positive Hypokalemia Hypopotassemia documented in this encounter Care Teams Operations Support Coordinator Relationship Specialty Start Date End Date Rosa Shi MD [address] [place] [address] PCP - General Family Practice 01/15/21 documented as of this encounter
--- OUTSIDE RECORDS SUMMARY | 2024-10-23 02:16 | XMS_ITS | Encounter Summary ---
Author Organization [facility] [employer] [facility] Address [address] [place] [address] Care Team Providers Care Intensive Care Unit Nurse Name Role Phone Rosa Shi MD Primary Care Provider [phone] Encounter Details Date Type Department Care Team (Late st Contact Info) Description 04/13/2022 Orders Only [facility] Oncology and Hematology - [place] 2227 [facility] 200 [place] [address] Aaron Smith MD 2227 [facility] [address] [place] [address] Malignant neoplasm of areola of [...] [facility] [place] Oncology and [facility]ematology - [place] 2227 [facility] [address] [place] [address] Aaron Smith MD 2227 [facility] [address] [place] [address] 03/29/2025 12:30 PM CDT Appointment [facility] [address] [place] [address] [place] [address] [facility] 120 [place] [address] 03/29/2025 1:30 PM CDT [facility] [place] [address] [facility] [address] [place] [address] [place] [address] [facility] 120 [place] [address] documented as of this encounter Visit Diagnoses Diagnosis 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, estrogen receptor positive Hypokalemia Hypopotassemia documented in this encounter Care Teams Intensive Care Unit Nurse Relationship Specialty Start Date End Date Rosa Shi MD [address] [place] [address] PCP - General Family Practice 01/15/21 documented as of this encounter
--- OUTSIDE RECORDS SUMMARY | 2024-10-23 02:16 | XMS_ITS | Encounter Summary ---
Author Organization [facility] [employer] [facility] Address [address] [place] [address] Care Team Providers Care Loop Cutter Name Role Phone Rosa Shi MD Primary Care Provider [phone] Encounter Details Date Type Department Care Team (Late st Contact Info) Description 04/27/2022 Orders Only [facility] Oncology and Hematology - [place] 2227 [facility] 200 [place] [address] Aaron Smith MD 2227 [facility] [address] [place] [address] Malignant neoplasm of areola of [...] Description 02/12/2025 1:00 PM CDT Office Visit [facility]3] Oncology and Hematology - [place] 2227 [facility] 200 [place] [address] Aaron Smith MD 2227 [facility] [address] [place] [address] 03/29/2025 12:30 PM CDT Appointment [facility] [address] [place] [address] [place] [address] [facility] 120 [place] [address] 03/29/2025 1:30 PM CDT Office Visit [facility] Breast Surgery [place] [address] [facility] [address] [place] [address] [place] [address] [facility] 120 [place] [address] documented as of this encounter Visit Diagnoses Diagnosis 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, estrogen receptor positive Hypokalemia Hypopotassemia documented in this encounter Care Teams Loop Cutter Relationship Specialty Start Date End Date Rosa Shi MD [address] [place] [address] PCP - General Family Practice 01/15/21 documented as of this encounter
--- OUTSIDE RECORDS SUMMARY | 2024-10-23 02:16 | XMS_ITS | Encounter Summary ---
Author Organization [facility] [employer] [facility] Address [address] [place] [address] Care Team Providers Care Account Executive Software Sales Name Role Phone Rosa Shi MD Primary Care Provider [phone] Encounter Details Date Type Department Care Team (Late st Contact Info) Description 10/12/2022 Orders Only [facility] Oncology and Hematology - [place] 2227 [facility] 200 [place] [address] Aaron Smith MD 2227 [facility] [address] [place] [address] Malignant neoplasm of areola of [...] Coronavirus/COVID-19? No / Unsure 09/22/2022 1:13 PM CERTIFIED PATHOLOGY ASSISTANT documented as of this encounter Plan of Treatment Upcoming Encounters Date Type Department Care Team (Late st Contact Info) Description 02/12/2025 1:00 PM CDT Office Visit [facility] Oncology and Hematology - [place] 2227 [facility] 200 [place] [address] Aaron Smith MD 2227 [facility] [address] [place] [address] 03/29/2025 12:[address] [facility] [place] [address] [place] [address] [place] [address] [facility] 120 [place] [address] 03/29/2025 1:30 PM CDT Office Visit [facility] Breast Surgery [place] [address] [facility] [address] [place] [address] [place] [address] [facility] 120 [place] [address] documented as of this encounter Visit Diagnoses Diagnosis 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, estrogen receptor positive Hypokalemia Hypopotassemia documented in this encounter Care Teams Account Executive Software Sales Relationship Specialty Start Date End Date Rosa Shi MD [address] [place] [address] PCP - General Family Practice 01/15/21 documented as of this encounter
--- OUTSIDE RECORDS SUMMARY | 2024-10-23 02:16 | XMS_ITS | Encounter Summary ---
Author Organization [facility] [employer] [facility] Address [address] [place] [address] Care Team Providers Care Dupligraph Operator Name Role Phone Rosa Shi MD Primary Care Provider [phone] Encounter Details Date Type Department Care Team (Late st Contact Info) Description 08/24/2022 Orders Only [facility] Oncology and Hematology - [place] 2227 [facility] 200 [place] [address] Aaron Smith MD 2227 [facility] [address] [place] [address] Malignant neoplasm of areola of [...] suspected to have Coronavirus/COVID-19? No / Unsure 08/03/2022 1:56 PM CDT documented as of this encounter Plan of Treatment Upcoming Encounters Date Type Department Care Team (Late st Contact Info) Description 02/12/2025 1:00 PM CDT Office Visit [facility] Oncology and Hematology - [place] 2227 [facility] 200 [place] [address] Aaron Smith MD 2227 [facility] [address] [place] [address] 03/29/2025 12:30 PM CDT Appointment [facility] [address] [place] [address] [place] [address] [place] [address] [facility] 120 [place] [address] 03/29/2025 1:30 PM CDT Office Visit [facility] Breast Surgery [place] [address] [facility] [address] [place] [address] [place] [address] [facility] 120 [place] [address] documented as of this encounter Visit Diagnoses Diagnosis 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, estrogen receptor positive Hypokalemia Hypopotassemia documented in this encounter Care Teams Dupligraph Operator Relationship Specialty Start Date End Date Rosa Shi MD [address] [place] [address] PCP - General Family Practice 01/15/21 documented as of this encounter
--- OUTSIDE RECORDS SUMMARY | 2024-10-23 02:16 | XMS_ITS | Encounter Summary ---
Author Organization [facility] [employer] [facility] Address [address] [place] [address] Care Team Providers Care Paper Cap Machine Operator Name Role Phone Rosa Shi MD Primary Care Provider [phone] Encounter Details Date Type Department Care Team (Late st Contact Info) Description 10/05/2022 Orders Only [facility] Oncology and Hematology - [place] 2227 [facility] 200 [place] [address] Aaron Smith MD 2227 [facility] [address] [place] [address] Malignant neoplasm of areola of [...] Coronavirus/COVID-19? No / Unsure 09/22/2022 1:13 PM SALES CORRESPONDENCE CLERK documented as of this encounter Plan of Treatment Upcoming Encounters Date Type Department Care Team (Late st Contact Info) Description 02/12/2025 1:00 PM CDT Office Visit [facility] Oncology and Hematology - [place] 2227 [facility] 200 [place] [address] Aaron Smith MD 2227 [facility] [address] [place] [address] 03/29/2025 12:30 PM CDT Appointment [facility] [address] [address] [place] [address] [place] [address] [facility] 120 [place] [address] 03/29/2025 1:30 PM CDT Office Visit [facility] Breast Surgery [place] [address] [facility] [address] [place] [address] [place] [address] [facility] 120 [place] [address] documented as of this encounter Visit Diagnoses Diagnosis 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, estrogen receptor positive Hypokalemia Hypopotassemia documented in this encounter Care Teams Paper Cap Machine Operator Relationship Specialty Start Date End Date Rosa Shi MD [address]4 [place] [address] PCP - General Family Practice 01/15/21 documented as of this encounter
--- OUTSIDE RECORDS SUMMARY | 2024-10-23 02:16 | XMS_ITS | Encounter Summary ---
Author Organization [facility] [employer] [facility] Address [address] [place] [address] Care Team Providers Care Fixture Maker Name Role Phone Rosa Shi MD Primary Care Provider [phone] Encounter Details Date Type Department Care Team (Late st Contact Info) Description 05/04/[address] [facility] Oncology and Hematology - [place] [address] [facility] 200 [place] [address] Aarno Smith MD [address] [facility] [address] [place] [address] Malignant neoplasm of areola of [...] suspected to have Coronavirus/COVID-19? No / Unsure 05/07/2022 3:21 PM CDT documented as of this encounter Plan of Treatment Upcoming Encounters Date Type Department Care Team (Late st Contact Info) Description 02/12/2025 1:00 PM CDT Office Visit [facility] Oncology and Hematology - [place] [address] [facility] 200 [place] [address] Aaron Smith MD [address] [facility] [address] [place] [address] 03/29/2025 12:30 PM CDT Appointment [facility] [address] [place] [address] [place] [address] [facility] 120 [place] [address] 03/29/2025 1:30 PM CDT Office Visit [facility] Breast Surgery [place] [address] [facility] [address] [place] [address] [place] [address] [facility] 120 [place] [address] documented as of this encounter Visit Diagnoses Diagnosis 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, estrogen receptor positive Hypokalemia Hypopotassemia documented in this encounter Care Teams Fixture Maker Relationship Specialty Start Date End Date Rosa Shi MD [address] [place] [address] PCP - General Family Practice 01/15/21 documented as of this encounter
--- OUTSIDE RECORDS SUMMARY | 2024-10-23 02:16 | XMS_ITS | Encounter Summary ---
Author Organization [facility] Address [address] Becerra: Epic Prelude ADT [place] [address] Care Team Providers Care Tunnel Miner Name Role Phone Rosa Shi MD Primary Care Provider [phone] Encounter Details Date Type Department Care Team (Latest Contact Info) Description 12/14/2022 Travel Social History Tobacco Use Types Packs/Day [...] suspected to have Coronavirus/COVID-19? No / Unsure 12/14/2022 11:09 AM MICROSOFT EXCHANGE ADMINISTRATOR documented as of this encounter Plan of Treatment Upcoming Encounters Date Type Department Care Team (Late st Contact Info) Description 02/12/2025 1:00 PM CDT Office Visit [facility] Oncology and Hematology - [place] [address] [facility] [address] [place] [address] Aaorn Smith MD [address] [facility] [address] [place] [address] 03/29/2025 12:30 PM CDT Appointment [facility] [address] [place] [address] [place] [address] [facility] [address] [place] [address] 03/29/2025 1:30 PM CDT Office Visit [facility] Breast Surgery [place] [address] [facility] [facility] [address] [place] [address] [place] [address] [facility] [address] [place] [address] documented as of this encounter Visit Diagnoses Not on filedocumented in this encounter Care Teams Tunnel Miner Relationship Specialty Start Date End Date Rosa Shi MD [address] [place] [address] PCP - General Family Practice 01/15/21 documented as of this encounter
--- OUTSIDE RECORDS SUMMARY | 2024-10-23 02:16 | XMS_ITS | Encounter Summary ---
Author Organization [facility] Address [address] Becerra: Epic Prelude ADT [place] [address] Care Team Providers Care Systems Test Technician Name Role Phone Rosa Shi MD Primary Care Provider [phone] Encounter Details Date Type Department Care Team (Latest Contact Info) Description 08/03/2022 Travel Social History Tobacco Use Types Packs/Day [...] Center Oncology and Hematology - [place] [address] [facility] [address] [place] [address] Aaron Smith MD [address] [facility] [address] [place] [address] 03/29/2025 12:30 PM CDT Appointment [facility] [address] [place] [address] [place] [address] [facility] [address] [place] [address] 03/29/2025 1:30 PM CDT Office Visit [facility] Breast Surgery [place] [address] [facility] [address] [place] [address] [place] [address] [facility] [address] [place] [address] documented as of this encounter Visit Diagnoses Not on filedocumented in this encounter Care Teams Systems Test Technician Relationship Specialty Start Date End Date Rosa Shi MD [address] [place] [address] PCP - General Family Practice 01/15/21 documented as of this encounter
--- OUTSIDE RECORDS SUMMARY | 2024-10-23 02:16 | XMS_ITS | Encounter Summary ---
Author Organization [facility] [employer] [facility] Address [address] [place] [address] Care Team Providers Care Horse Exerciser Name Role Phone Rosa Shi MD Primary Care Provider [phone] Encounter Details Date Type Department Care Team (Late Contact Info) Description 12/08/2022 Orders Only [facility] Oncology and Hematology [facility] [address] [place] [address] Michelle Aguero Malignant neoplasm of areola of left breast [...] 02/12/2025 1:00 PM CDT Office Visit [facility] Oncology and Hematology [facility] [address] [place] [address] Aaron Smith MD [address] [facility] [address] [place] [address] 03/29/2025 12:30 PM CDT Appointment [facility] [address] [place] [address] [place] [address] [facility] [address] [place] [address] 03/29/2025 1:30 PM CDT Office Visit [facility] Breast Surgery [place] [address] [facility] [address] [place] [address] [place] [address] [facility] 120 [place] [address] documented as of this encounter Visit Diagnoses Diagnosis 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, estrogen receptor positive Hypokalemia Hypopotassemia documented in this encounter Care Teams Horse Exerciser Relationship Specialty Start Date End Date Rosa Shi MD [address] [place] [address] PCP - General Family Practice 01/15/21 documented as of this encounter
--- OUTSIDE RECORDS SUMMARY | 2024-10-23 02:16 | XMS_ITS | Encounter Summary ---
Author Organization [facility] Address [address] [facility] [address] Becerra: Epic Prelude ADT [place] [address] Care Team Providers Care Computer Programming Manager Name Role Phone Rosa Shi MD Primary Care Provider [phone] Encounter Details Date Type Department Care Team (Latest Contact Info) Description 05/27/2022 Travel Social History Tobacco Use Types Packs/Day [...] suspected to have Coronavirus/COVID-19? No / Unsure 05/27/2022 5:54 AM CDT documented as of this encounter Plan of Treatment Upcoming Encounters Date Type Department Care Team (Late st Contact Info) Description 02/12/2025 1:00 PM CDT Office Visit [facility] Oncology and Hematology - [place] [address] [facility] [address] [place] [address] Aaron Smith MD [address] [facility] [address] [place] [address] 03/29/2025 12:30 PM CDT Appointment [facility] [address] [place] [address] [place] [address] [facility] [address] [place] [address] 03/29/2025 1:30 PM CDT Office Visit [facility] Breast Surgery [place] [address] [facility] [address] [place] [address] [place] [address] [facility] [address] [place] [address] documented as of this encounter Visit Diagnoses Not on filedocumented in this encounter Care Teams Computer Programming Manager Relationship Specialty Start Date End Date Rosa Shi MD [address] [place] [address] PCP - General Family Practice 01/15/21 documented as of this encounter
--- OUTSIDE RECORDS SUMMARY | 2024-10-23 02:16 | XMS_ITS | Encounter Summary ---
Author Organization [facility] [employer] [facility] Address [address] [place] [address] Care Team Providers Care Exhibits Coordinator Name Role Phone Rosa Shi MD Primary Care Provider [phone] Encounter Details Date Type Department Care Team (Late Contact Info) Description 12/14/2022 Orders Only [facility] Oncology and Hematology [facility] Radha [address] [place] [address] Michelle Aguero Malignant neoplasm of [...] Coronavirus/COVID-19? No / Unsure 12/14/2022 11:09 AM EQUIPMENT HIRE MANAGER documented as of this encounter Plan of Treatment Upcoming Encounters Date Type Department Care Team (Late st Contact Info) Description 02/12/2025 1:00 PM CDT Office Visit [facility] Oncology and Hematology [facility] Josh [address] [place] [address] Aaron Smith MD [address] [facility] [address] [place] [address] 03/29/2025 12:30 PM CDT Appointment [facility] [address] [address] [facility] [place] [address] [place] [address] [facility] 120 [place] [address] 03/29/2025 1:30 PM CDT Office Visit [facility] Breast Surgery [place] [address] [facility] [address] [place] [address] [place] [address] [facility] [address] [place] [address] documented as of this encounter Visit Diagnoses Diagnosis 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, estrogen receptor positive documented in this encounter Care Teams Exhibits Coordinator Relationship Specialty Start Date End Date Rosa Shi MD [address] [place] [address] PCP - General Family Practice 01/15/21 documented as of this encounter
--- OUTSIDE RECORDS SUMMARY | 2024-10-23 02:16 | XMS_ITS | Encounter Summary ---
Author Organization [facility] [employer] [facility] Address [address] [place] [address] Care Team Providers Care Lithograph Operator Name Role Phone Rosa Shi MD Primary Care Provider [phone] Encounter Details Date Type Department Care Team (Late st Contact Info) Description 11/09/2022 Orders Only [facility] Oncology and Hematology - [place] Radha [address] [place] [address] Aaron Smith MD [address] [facility] [address] [place] [address] Malignant neoplasm of areola of [...] Description 02/12/2025 1:00 PM CDT Office Visit [facility] Oncology and Hematology - [place] [address] [place] [address] Aaron Smith MD [address] [address] 03/29/2025 12:30 PM CDT Appointment [facility] [address] [address] [place] [address] [place] [address] [facility] [address] [place] [address] 03/29/2025 1:30 PM CDT Office Visit [facility] Breast Surgery [place] [address] [facility] [facility] [address] [place] [address] [place] [address] [facility] [address] [place] [address] documented as of this encounter Visit Diagnoses Diagnosis 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
--- OUTSIDE RECORDS SUMMARY | 2024-10-23 02:16 | XMS_ITS | Encounter Summary ---
Author Organization [facility] [employer] [facility] Address [address] [place] [address] Care Team Providers Care Material Reprocessing Associate Name Role Phone Rosa Shi MD Primary Care Provider [phone] Encounter Details Date Type Department Care Team (Late st Contact Info) Description 11/02/2022 Orders Only [facility] Oncology and Hematology - [place] Radha [address] [place] [address] Aaron Smith MD [address] [facility] [address] [place] [address] Malignant neoplasm of areola of [...] 02/12/2025 1:00 PM CDT Office Visit [facility] Oncology and Hematology - [place] [address] [place] [address] Aaron Smith MD [address] [address] 03/29/2025 12:30 PM CDT Appointment [facility] [address] [address] [place] [address] [place] [address] [facility] 120 [place] [address] 03/29/2025 1:30 PM CDT Office Visit [facility] Breast Surgery [place] [address] [facility] [address] [place] [address] [place] [address] [facility] [address] [place] [address] documented as of this encounter Visit Diagnoses Diagnosis 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
--- OUTSIDE RECORDS SUMMARY | 2024-10-23 02:16 | XMS_ITS | Encounter Summary ---
Author Organization [facility] [employer] [facility] Address [address] [place] [address] Care Team Providers Care Semiconductor Assembler Name Role Phone Rosa Shi MD Primary Care Provider [phone] Encounter Details Date Type Department Care Team (Late st Contact Info) Description 05/25/2022 Orders Only [facility] Oncology and Hematology - [place] [address] [facility] 200 [place] [address] Aaron Smith MD [address] [facility] [address] [place] [address] Malignant neoplasm of areola of [...] [facility] Oncology and Hematology - [place] 2[address] [facility] 200 [place] [address] Aaron Smith MD [address] [facility] [address] [place] [address] 03/29/2025 12:30 PM CDT Appointment [facility] [address] [place] [address] [place] [address] [facility] [address] [place] [address] 03/29/2025 1:30 PM CDT Office Visit [facility] Breast Surgery [place] [address] [facility] [address] [place] [address] [place] [address] [facility] [address] [place] [address] documented as of this encounter Visit Diagnoses Diagnosis 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
--- OUTSIDE RECORDS SUMMARY | 2024-10-23 02:16 | XMS_ITS | Encounter Summary ---
Author Organization [facility] Address [address] [place] [address] Care Team Providers Care Bindery Chief Name Role Phone Rosa Shi MD Primary Care Provider Reason for Visit * Reason Comments Cancer Encounter Details Date Type Department Care Team (Late st Contact Info) Description 08/03/2022 2:15 PM CDT Office Visit [facility] Oncology and Hematology - [place] [address] [place] [address] [facility] 200 [place] [address] Aaron Smith MD [address] [facility] [address] [place] [address] Malignant neoplasm of areola of [...] PM CDT documented as of this encounter Last Filed Vital Signs Vital Sign Reading Time Taken Comments Blood Pressure 141/79 08/03/2022 2:03 PM CDT Pulse 98 08/03/2022 2:03 PM CDT Temperature 36.6 ??C (97.9 ??F) 08/03/2022 2:03 PM CD T Respiratory Rate - - Oxygen Saturation 98% 08/03/2022 2:03 PM CDT Inhaled Oxygen Concentration - - Weight 105.2 kg (232 lb) 08/03/2022 2:03 PM CDT Height 157.5 cm (5' 2 ) 08/03/2022 2:03 PM CDT Body Mass Index 42.43 08/03/2022 2:03 PM CDT documented in this encounter Progress Notes * Aaron Smith MD - 08/03/2022 2:56 PM CDT HEMATOLOGY / ONCOLOGY PROGRESS NOTE Patient Identification: Name: Rosa Babb Age: 56 y.o. Sex: female : 1965 DIAGNOSIS T2 N1 M0 stage IIB invasive mammary carcinoma status post left breast 9:00 needle biopsy done on January 14, 2021. ER strongly positive, NE weakly positive and HER-2/dez positive. Ultrasound-guided biopsy [...] Completed May 19, 2022 SUBJECTIVE Patient came in to the office for follow-up visit. She is feeling much better after completion of treatment with Herceptin. Denies any hot flashes or night sweats. No other new lung bumps lymphadenopathy. No other new complaint. Review of system Constitutional: denies fevers, sweats, [...] rashes. 12 point review system was reviewed and as above Objective: Vital signs in last 24 hours: [...] left breast without any masses or lymphadenopathy. Examination as above PATH LABS Labs from February [...] platelet 272,000 CA 15-3 21 creatinine 0.9 Assessment: Plan: Patient Active Problem List Diagnosis Date Noted Malignant neoplasm of left female breast 01/09/2021 [...] DCIS high-grade and 0/6 sentinel lymph node ER/NE positive and HER- 2/dez positive status post left-sided lumpectomy and left axillary lymph node biopsy done on 06/25/2021. Inferior margin less than 1 mm. Additional margins clear. Patient has completed cycle 6/6 of chemotherapy with [facility] on 05/28/2021. Patient completed radiation therapy treatment on September 22, 2021. Patient started maintenance Herceptin treatment on September 29, 2021. Completed May 19, 2022. There is no evidence of relapse of disease on my examination. Labs including tumor marker stable. She will continue Arimidex which she has been tolerating well. Bilateral screening mammogram will be done in February 2023. Follow-up with me in 4 months. Chemotherapy-induced anemia. Resolved. Bone health. Continue vitamin D. Bone density will be done next year. TOBACCO COUNSELING She is not a tobacco user. 08/03/2022 Aaron Smith MD documented in this encounter Plan of Treatment Upcoming Encounters Date Type Department Care Team (Late st Contact Info) Description 02/12/2025 1:00 PM CDT Office Visit [facility] Oncology and Hematology [facility] 2[address] [facility] 200 [place] [address] Aaron Smith MD [address] [facility] [address] [place] [address] 03/29/2025 12:30 PM CDT Appointment [facility] [place] [address] [address] [address] [place] [address] [address] [address] 03/29/2025 1:30 PM CDT Office Visit [facility] Breast Surgery [place] [address] [address] [facility] [address] [place] [address] [place] [address] 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
--- OUTSIDE RECORDS SUMMARY | 2024-10-23 02:16 | XMS_ITS | Encounter Summary ---
Author Organization [facility] Address [address] [place] [address] Care Team Providers Care Parking Enforcer Name Role Phone Rosa Shi MD Primary Care Provider [phone] Reason for Visit * Auth/Cert Specialty Diagnoses / Procedures Referred By Contac t Referred To Contact Diagnoses Malignant neoplasm of left female breast, unspecified estrogen receptor status, unspecified site of breast Malignant neoplasm of left female breast, unspecified estrogen receptor status, unspecified site of breast [C50.912] Procedures [place] RMVL MALDONADO CTR VAD W/SUBQ PORT/INTELLIGENCE CLERK CTR/[place] [address] [place] [address] Referral ID Status Reason Start Date Expiration Date Visits Re quested Visits Authorized [id number] 03/25/2022 1 1 Encounter Details Date Type Department Care Team (Latest Contact Info) Description 05/27/2022 5:54 AM CDT - 05/27/2022 8:31 AM CDT Hospital Encounter [facility] [address] [place] [address] [place] [address] [place] [address] Malignant neoplasm of left female breast, unspecified estrogen receptor status, unspecified site of breast Discharge Disposition: Home or Self Care Social [...] AM CDT documented as of this encounter Last Filed Vital Signs Vital Sign Reading Time Taken Comments Blood Pressure 157/79 05/27/2022 8:15 AM CDT Pulse 70 05/27/2022 8:15 AM CDT Temperature 37.3 ??C (99.1 ??F) 05/27/2022 7:42 AM CD T Respiratory Rate 17 05/27/2022 8:15 AM CDT Oxygen Saturation 96% 05/27/2022 8:15 AM CDT Inhaled Oxygen Concentration - - Weight 103.4 kg (228 lb) 05/27/2022 6:23 AM CDT Height 157.5 cm (5' 2 ) 05/27/2022 6:23 AM CDT Body Mass Index 41.7 05/27/2022 6:23 AM CDT documented in this encounter Discharge Instructions * Discharge Instructions* Christiano Shankar MD - 05/26/2022 8:[address] [facility] [address] [place] [address] Post operative instructions: Activity: _x__Walk around every 2-4 hours to prevent blood clots _x__ No heavy lifting for one week _x__ No driving while taking narcotics or while drain is in _x__ Deep breathing 10x per hour if you had general anesthesia _x__ No strenuous exercise for one week _x__ Resume range of motion as tolerated (don???t force it) Medicines: _x__ May resume pre op medications _x__ Ask your surgeon when to resume aspirin and blood thinners _x__ Tylenol is okay for mild pain _x__ Prescriptions for narcotics will be given after surgery if needed _x__ Avoid alcoholic beverages, drive or make important decisions while taking pain medicines Diet: _x__ Resume a regular diet as tolerated _x__ Encourage fluids to avoid constipation Follow up Care: _x__ Call for an appointment if any concerns or issues with healing from the port removal. _x__ Follow-up with your oncology doctors as scheduled. Special Instructions: _x__ May remove outer dressing tomorrow _x__ Glue dressing intact, will begin to flake off in 7-10 days _x__ May shower today _x__ May use ice bag or warm compresses on incision for minor swelling and discomfort _x__ Call office or exchange if fever, redness, swelling, drainage ADDITIONAL PRECAUTIONS - If you become short of breath please proceed DIRECTLY to the Emergency Room. - new redness around the port site or warmth can be a sign of infection. Please call if you have concerns - if you note arm swelling and pain in the upper arm ON THE SIDE of the port, please call. If you have any questions, please call the office at between the hours of 9AM and 5PMMonday through Wednesday. After hours for emergencies, you may call this number to be connected to [facility]. Christiano Shankar MD Breast Surgical Oncology [phone] documented in this encounter Medications at Time of Discharge Medication Sig Dispensed Refills Start Date End Date cholecalciferol, Vitamin D3, (VITAMIN D3) 25 mcg (1,000 unit) Capsule Take by mouth daily. blood-glucose meter (BLOOD GLUCOSE MONITOR KIT MIS) Diagnosis: Diabetes type 2 Blood testing frequency: 3 times a day 12/01/2020 ALBUTEROL INHALATION Take 1 Puff by inhalation Continuous as needed. LANCETS [facility] Use as directed 12/01/2020 blood sugar diagnostic Strip Diagnosis: Diabetes type 2 Blood testing frequency: 3 times a day 12/01/2020 fluticasone propion-salmeteroL (ADVAIR DISKUS,WIXELA INHUB) 500-50 mcg/dose disk inhaler Take 1 Puff by inhalation 2 times daily. anastrozole (Arimidex) 1 mg tablet Take 1 Tablet (1 mg) by mouth daily. 90 Tablet 3 10/20/2021 10/09/2022 documented as of this encounter H&P Notes * Christiano Shankar MD - 05/27/2022 6:33 AM CDT PATIENT: Rosa Babb : 1965 DATE: 05/27/2022 CHIEF COMPLAINT: port removal HISTORY OF PRESENT ILLNESS: Rosa Babb is a 56 y.o. female who has completed chemotherapy for breast cancer. She presents for port removal. PMH: Past Medical History: Diagnosis Date ??? Asthma ??? Breast cancer ??? Depression ??? Diabetes mellitus ??? Endometriosis ??? Fibroids ??? High cholesterol ??? HTN (hypertension) ??? Latex sensitivity ??? Personal history of chemotherapy PSH: Past Surgical History: Procedure Laterality Date ??? HX BREAST LUMPECTOMY FOR CANCER Left 06/25/2021 IDC with radiation ??? HX SECTION ??? HX CORE NEEDLE BREAST BIOPSY Left 01/23/2021 & LN; IDC with mets ??? HX HYSTERECTOMY ??? 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 AZ BIOPSY/EXCISION, LYMPH NODE(S) Left 06/25/2021 LEFT AXILLARY SENTINEL LYMPH NODE BIOPSY WITH NUC MED AT 6:30 AM POSSIBLE AXILLARY LYMPH NODE DISSECTION performed by Christiano Shankar MD at [facility] OR ? ? AZ INSJ TUNNELED CVC W/O SUBQ PORT/INTELLIGENCE CLERK AGE 3 YR/> Right 01/29/2021 RIGHT PORT A CATHETER PLACEMENT POSSIBLE LEFT PORT A CATHETER PLACEMENT performed by Christiano Shankar MD at [facility] OR ??? AZ MASTECTOMY, PARTIAL Left 06/25/2021 LEFT BREAST WIDE LOCAL EXCISION LUMPECTOMY WITH NEEDLE LOCALIZATION AT 7:30 AM performed by Christiano Shankar MD at [facility] OR ??? TONSILLECTOMY ALLERGY: Allergies Allergen Reactions ??? Latex Rash MEDS: Current Facility-Administered Medications Medication Dose Route Frequency Provider Last Rate Last Admin ??? lactated ringers infusion IV pre-proc continuous Christiano Shankar MD ??? lidocaine PF 2% (XYLOCAINE MPF) injection 0.3 mL 0.3 mL Infiltration pre- proc one time Christiano Shankar MD ??? ceFAZolin in sterile water (ANCEF) 2 gram/20 mL IV Syringe (PREMIX) 2,000 mg 2,000 mg IV pre-proc one time Christiano Shankar MD FHX: Family History Problem Relation Name Age of Onset ??? Stroke Father ??? Cancer Mother ??? Breast Cancer Paternal Cousin ??? Breast Cancer Paternal Cousin ??? Breast Cancer Paternal Cousin ??? Breast Cancer Paternal Cousin ??? Breast Cancer Paternal Cousin ??? Colon Cancer Neg Hx ??? Ovarian Cancer Neg Hx ??? Uterine Cancer Neg Hx ??? Lung Cancer Neg Hx SOC: Social History Socioeconomic History ??? Marital status: Spouse name: Not on file ??? Number of children: 1 ??? Years of education: Not on file ??? Highest education level: Not on file Occupational History Employer: [employer] Tobacco Use ??? Smoking status: Never Smoker ??? Smokeless tobacco: Never Used Vaping Use ??? Vaping Use: Never used Substance and Sexual Activity ??? Alcohol use: Yes Comment: 1/week ??? Drug use: No ??? Sexual activity: Yes Partners: Male Comment: YEHUDA Other Topics Concern ??? Not on file Social History Narrative ??? Not on file Social Determinants of Health Financial Resource Strain: Not on file Food Insecurity: Not on file Transportation Needs: Not on file Physical Activity: Not on file Stress: Not on file Social Connections: Not on file Intimate Partner Violence: Not on file Housing Stability: Not on file ROS: Constitutional: Negative for fever, weight loss and malaise/fatigue. Respiratory: Negative for cough. Cardiovascular: Negative for chest pain and leg swelling. Gastrointestinal:. Negative for abdominal pain. Genitourinary: Negative for dysuria. Musculoskeletal: Negative for myalgias and joint pain. Skin: Negative for rash. Neurological: Negative for dizziness and headaches. Psychiatric/Behavioral: Negative for depression Female: OB History 3 Para 1 Term 0 0 AB 2 Living 1 SAB 2 IAB 0 Ectopic 0 Multiple 0 Live Births The remainder of the review of systems including cardiovascular, pulmonary, GI/, neurologic, and endocrine are negative except as noted above. Immunizations: non-contributory PHYSICAL EXAM: BP (!) 145/75 (BP Location: Right arm, Patient Position (BP): Supine) Pulse 84 Temp 97.5 ??F (36.4 ??C) (Temporal) Resp 13 Ht 5' 2 (1.575 m) Wt 103.4 kg (228 lb) SpO2 98% BMI 41.70 kg/m?? General: well-developed, well-nourished HEENT: normocephalic/atraumatic. Extra-occular movements are intact. Sclera anicteric. Neck is supple without masses. No thyroid nodules. No lymphadenopathy. Cardiovascular: S1, S2 without murmur. No palpable thrill. 2+ radial pulses. Chest: Right port Lungs: clear to auscultation bilaterally. No wheezes. Abdomen: Soft, non-tender. No masses. Extremities: no edema Neurologic: sensory and motor grossly intact. Alert and oriented x 3. ASSESSMENT AND PLAN: Breast cancer status post chemotherapy for breast cancer with need for port removal. We will proceed. Christiano Shankar MD 05/27/2022 6:33 AM documented in this encounter OR Notes * Operative Report - Christiano Shankar MD - 05/27/2022 7:34 AM CDT PATIENT: Rosa Babb : 1965 DATE OF SERVICE: 05/27/2022 SURGEON: CHRISTIANO SHANKAR MD PREOPERATIVE DIAGNOSIS: Breast cancer status post chemotherapy with need for port removal POSTOPERATIVE DIAGNOSIS: Breast cancer status post chemotherapy with need for port removal OPERATION NAME: 1-- right port removal ANESTHESIA: local MAC EBL: minimal COMPLICATIONS: none INDICATION FOR PROCEDURE: the patient is a 56 y.o. who has completed chemotherapy for breast cancer. She presents for port removal today. After discussing the risks versus benefits, including but notlimited to bleeding, infection, need for a further procedure, she wishes to proceed with port remova l. DESCRIPTION OF PROCEDURE: After informed consent she was taken to the operating room. After IV sedation the area around the right port site was prepped and draped. Local anesthetic was infiltrated along the scar line. The scar was then incised sharply with an ellipse around the scar, which was excised and removed. Dissection continued through the subcutaneous tissue until the capsule around the port was then entered. The anchoring stiches were snipped and removed. Prior to removal of the port and catheter, the patient was placed in trendelenburg position. The port was then removed from the pocket and the catheter was pulled out without resistance. The tip of the catheter appeared intact. Pressure was held on the internal jugular vein. The pocket was then irrigated and checked for hemostasis. The incision was then closed with an interrupted 3-0 vicryl and a running 4-0 monocryl subcuticular stitch. Skin glue was applied. Sterile dressing was applied. Needle and sponge counts were correct x2. Overall she tolerated the procedure well and was sent to the recovery room in stable condition. Christiano Shankar MD 05/27/2022 7:34 AM * Blank-OP - Nickie Moore RN - 05/07/2022 4:05 PM CDT Images from the original note were not included. [facility] Routine Orders Protocol [facility] Approved by: [facility] - Medical Executive Committee Approval Date: 01/08/2022 ORDERS ARE ENTERED ???PER PROTOCOL?? Enter the protocol in the patient's electronic health record using smart phrase: .paceroutineordersprotocol Laboratory Orders: PACE/Anesthesiology Care Screening for Procedures ??? Laboratory exams obtained within 3 months prior to surgery are acceptable if normal, or at baseline. ??? Hematocrit/Hemoglobin ([id number]) o Cases of expected major blood loss in patients of any age as evidenced by an order for Type and Cross or Type and Screen. ??? PT/INR (Lab 320) should be drawn day of surgery for patients: o Taking Warfarin (Coumadin) or who have had Warfarin (Coumadin) discontinued within prior 7 days ??? BMP (Lab15) Patients with: o Diabetes o Renal disease o Dialysis patients: Day of Surgery; If dialysis on day of surgery, post-dialysis o Patients taking the following medications: - Digoxin - Diuretics - Steroids ??? BUN (Fob608)/ Serum Cr (Lab66) o When use of intravenous contrast dye is planned ??? Liver function panel (Lab20) in any patient with: o Jaundice, or active liver disease ??? HgbA1c: If result not available from within 3 months of [facility] phone or in- person contact, for patients that meet the following conditions: o Planned operation is an orthopedic or neurosurgical implant, AND o Either a hx of diabetes or a BMI >35 ??? EKG (EKG) 12 lead EKG o EKG obtained within the last 3 months for the following: - Known cardiac disease (CAD, CHF, moderate or worse valvular disease - Patients undergoing cardiac, thoracic, or vascular surgery - CIED - Cardiac Symptoms: ??? Angina, dysrhythmia, palpitations, SOB, PND, S3 - Moderate or greater risk surgery with any of the following: ? ? Stroke/TIA/CVD, PAD/PVD, CKD (Cr>2), DM, or Drugs or toxins that alter conduction (e.g., digoxin, cocaine, MAOIs, antiarrhythmics, antipsychotics, TCAs) Medication Orders: ??? Unless otherwise ordered by a member of the [facility] Anesthesiology Staff. 1. STOP a. Seven (7) DAYS PRIOR TO SURGERY: the use of all vitamins, herbal supplements, and other alternative substances. b. Seven (7) DAYS PRIOR TO SURGERY: the use of any UNPRESCRIBED Aspirin, Excedrin and NSAIDs which include Motrin, Ibuprofen, Aleve, and Naprosyn. c. 24 HOURS PRIOR TO PLANNED ARRIVAL AT [facility]: use of angiotensin-converting enzyme (ERIC) inhibitorand angiotensin receptor debra (ARB). 2. Continue- on usual schedule and take medication day of surgery with sips of water to swallow a. Aspirin and NSAIDS unless specifically instructed by surgeon to discontinue. b. All prescription medicines on routine schedule as prescribed, unless instructed otherwise Blood Bank: ??? For surgical procedures, prepare blood per [facility] Blood Bank Orders and Patient Identification for Blood Products unless additional blood or blood products have been ordered by a provider, then follow provider order * Blank-OP - Nickie Moore RN - 05/07/2022 3:25 PM CDT Approved by: [facility] - Medical Executive Committee Approval Date: 05/08/2021 ORDERS ARE ENTERED ???PER PROTOCOL?? Enter the protocol in the patient's electronic health record using smartphrase:.preanesthesiadiabetesprotocol Nursing Orders: o Nurse should instruct patient to do the followin. If patient regularly checks blood sugar levels at home, instruct patient to check fasting blood sugar level upon wakening the morning of surgery and every 4 hours until patient arrives at the hospital 2. If patient has a blood sugar less than 70mg/dl during the time patient is fasting, the patient shoud drink 4 oz. (1/2 cup) of a clear, sugar-containing drink that patient is able to see through such as apple juice or regular Sprite???-like product. (No juice with pulp). No orange juice. 3. If patient's blood sugar level is greater than 250 mg/dL, patient should contact his/her physician. o Review diabetes medication regimen (night before and morning of procedure) with the patient basedon what the patient is currently taking at home Medication Orders If you take: Night before procedure Morning of procedure ORAL ANTI DIABETIC AGENTS Actos, Actoplus Met, Amaryl, Avandamet, Avandia, Cycloset, Duetact, Farxiga, Galvus, Glipizide, Glucovance, Glyburide, Glyset, Glyxambi, Invokamet, Invokana, Januvia, Janumet, Jardiance, Jentadueto, Kombiglyze, Metaglip, Metformin, Nesina, Onglyza, Prandin, Precose, Rybelsus, Starlix, Synjardy, Tradjenta, Welchol, Xigduo The following medications need to be stopped 3 days prior to surgery: - Farxiga - Invokana - Jardiance - Synjardy - Glyxambi - Invokamet Take usual dose Do NOT take Xultophy, Soliqua Take 70% of usual dose if regularly scheduled at bedtime (current dose x 0.7 = new dose) Take 50% (1/2) of usual dose if regularly scheduled in the morning Basaglar, Lantus, Levemir, Toujeo, Tresiba Take 70% of usual dose if regularly scheduled at bedtime (current dose x 0.7 = new dose) Take 50% (1/2) of usual dose if regularly scheduled in the morning NPH insulin Take 70% of usual evening dose (current dose x 0.7 = new dose) Take 50% (1/2) of usual morning dose Humulin R U-500 Contact prescribing doctor Contact prescribing doctor Apidra, Fiasp, Humalog, Lyumjev, Novolog, HumulinR, Novolin R Take usual dose at dinner (supper) Contact your prescribing provider for specific instructions. Premixed insulin: Humalog Mix 75/25, Humalog Mix 50/50, Humulin 70/30, Novolin 70/30, Novolog Mix 70/30 Take usual dose at dinner (supper) Do NOT take Byetta, Victoza, Symlin, Bydureon, Trulicity, Tanzeum, Ozempic Take usual dose Do NOT take Subcutaneous Insulin Pump Non-adjustable, V-GO insulin pump, will need to be removed prior to surgery. Please contact provider for alternate insulin source DO NOT REMOVE PUMP- Decrease basal rate by 20% using temporary basal rate features of the insulin pump. Example: (your rate x 0.8 = your new rate) Additional instructions if you use an insulin pump: ??? Change your insertion site and reservoir the day before surgery and bring extra supplies with you. (example: infusion set, reservoirs, glass smoother set if needed, PDM device). Insulin is provided by the hospital pharmacy. ??? For procedures involving your abdominal area, move your infusion site to an area outside the surgical field. ??? Tell nursing staff that you are wearing an insulin pump when you arrive. ??? If you need further assistance in calculating your basal rates, please call your doctor who manages your pump or the 1-800 number listed on your pump. Patients with type 1 diabetes: ??? Require insulin at all times. ??? 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 If a medication is not listed above, contact your prescribing physician for instructions. [facility] Pre-Procedure Instructions [facility] Name: Rosa Babb Age: 56 y.o. Please report to the: [facility] Date of Procedure: 05/27/2022 ??? Limit time spent out in the community (self-quarantine) prior to surgery/procedure to avoid anypotential for COVID-19 exposure. ??? Arrive at the time your surgeon's office has instructed. You will receive a call from your surgeon's office with your arrival time. The decision whether to stay overnight or go home will be made by the attending surgeon. PLEASE NOTIFY your surgeon promptly if you begin to feel ill prior to your surgery. A cold, sore throat, fever, flu or covid symptoms may require postponing the surgery to another date for your safety. Please follow these important instructions PRE-PROCEDURE DIETARY INSTRUCTIONS Follow your surgeon's instructions regarding oral intake prior to your scheduled procedure. If no specific instructions were given from your surgeon's office; below are the guidelines from the anesthesia department: Based on your health history and/or scheduled procedure, the following pre- procedure dietary instructions should be followed: Strict NPO ?? Do not eat food or drink liquids after midnight prior to your procedure. ?? Oral Hygiene: Patients are encouraged to brush teeth, without swallowing, on the day of the procedure. WITHIN 24 HOURS PRIOR TO SURGERY Shower (bathe) and shampoo the evening before and morning of surgery. If instructed to do so, please follow the directions on the provided soap or antibacterial soap. ? Before you bathe, or shower carefully read all directions and warnings on the product label. Shower or bathe with an antiseptic soap solution chosen by your surgeon, such as Chlorhexidine Gluconate (CHG) with brand names like Hibiclens. If you are allergic to CHG, Hibiclens or Aloe DO NOT use product. Showering will ensure removal of bacteria and minimize risk of infection. ?? Do not use the CHG soap on your face. Avoid getting the soap in your genital area, eyes, ears, mouth, or nose. While using the soap, if you feel itchy or experience red skin, stop using the product and immediately rinse off with water. Tell your care team about this reaction. ?? After rinsing off the soap, do not use regular soap. ?? After your shower, do not apply any powders, lotion, creams, deodorant, or makeup to your skin. ?? Do not shave or remove any hair at the surgical site four days prior to surgery. ?? Using a clean freshly laundered dry towel pat dry after the showers each time you shower. Sleep in clean freshly laundered sleepwear and bed linens. ?? DO NOT WEAR JEWELRY (rings, earrings, and body piercings), wigs, or hair pieces to the hospital. ??? We recommend patients abstain from SMOKING or VAPING TOBACCO / NICOTINE / MEDICAL MARIJUANA foras long as possible prior to surgery. ??? DO NOT SMOKE, VAPE OR USE any TOBACCO / NICOTINE/ MEDICAL MARIJUANA PRODUCTS (smoking, oral, edible products, ointments, tinctures and concentrates) on the day of your procedure. DAY OF SURGERY INSTRUCTIONS ?? YOU WILL NEED A RESPONSIBLE ADULT FAMILY MEMBER OR FRIEND WITH YOU UPON DISCHARGE. YOUR SURGERY MAY BE CANCELLED IF YOU DO NOT HAVE A RESPONSIBLE ADULT TO TAKE YOU HOME. It is highly suggested youhave a responsible adult with you overnight after receiving anesthesia. ?? WEAR comfortable, loose fitting clothes to the hospital that will fit over dressings after your surgery. ?? WEAR GLASSES instead of contact lenses to the hospital; bring a case if possible for glasses, dentures, and hearing aids as you will be asked to remove these items before your surgery. ?? BRING your insurance cards and local owner operator truck driver's license or photo ID. DO NOT BRING VALUABLES or large amounts of orourke with you to the hospital. ?? BRING any medical devices you need to the hospital, including remotes for stimulators, CPAP, BIPAP, or WOUND VAC machines. ?? Surgical times are estimates and can vary depending on numerous factors. ?? Expect a minimum post-op recovery of 1 hour. The medical staff will provide updates to family and/or friends as appropriate. ?? For surgical procedures, patient may be allowed two adult visitors. Special considerations may be allowed for pediatric patients under the age of 18 years. ?? Patient and any permitted visitor should arrive to the facility with a mask. If arriving to the facility without a mask, one will be provided. Special considerations may be allowed for pediatric patients under 2 years of age. ?? Patient will wear a mask from the time they enter the facility and will remain in a mask until they leave the facility. During your hospital stay you will receive a personal passcode to help protect your health information. This will be a number that you may share with anyone you choose to receive your protected health information (PHI). Family and friends will need to ask for you by name and use the passcode beforeyour care team can share information, either in person or by phone. Please ask those who have your passcode to protect it. ADVANCED PLANNING FOR MEDICATION USE CURRENT MEDICATION LIST Pre-Surgery Instructions Medication Instructions ??? anastrozole (Arimidex) 1 mg tablet Take morning of surgery with sip of water ??? ALBUTEROL INHALATION Use day of surgery and bring with you ??? fluticasone propion-salmeteroL (ADVAIR DISKUS,WIXELA INHUB) 500-50 mcg/dose disk inhaler Use the day of surgery and bring with you.?? documented in this encounter Plan of Treatment Upcoming Encounters Date Type Department Care Team (Late st Contact Info) Description 02/12/2025 1:00 PM CDT Office Visit [facility] Oncology and Hematology - Levi [address] [facility] [address] [place] [address] Aaron Smith MD 2227 [facility] [address] [place] [address] 03/29/2025 12:30 PM CDT Appointment [facility] [address] [place] [address] [place] [address] [facility] [address] [place] [address] 03/29/2025 1:30 PM CDT Office Visit [facility] Breast Surgery [place] [address] [facility] [address] [place] [address] [place] [address] [address] [facility] [address] [place] [address] documented as of this encounter Procedures Procedure Name Priority Date/Time Associated Diagnosis Comments [place] RMVL MALDONADO CTR VAD W/SUBQ PORT/INTELLIGENCE CLERK CTR/PRPH INSJ 05/27/2022 6:50 AM CDT Malignant neoplasm of left female breast, unspecified estrogen receptor status, unspecified site of breast documented in this encounter Visit Diagnoses Diagnosis Malignant neoplasm of left female breast, unspecified estrogen receptor status, unspecified site of breast documented in this encounter Administered Medications Inactive Administered Medications - up to 3 most recent administrations Medication Order MAR Action Action Date Dose Rate Site lactated ringers infusion IV, at 150 mL/hr, PRE-PROCEDURE CONTINUOUS, Starting on Wed05/27/22 at 0630, Until Wed05/27/22 at 1031, Routine, Pre-op Restarted 05/27/2022 7:00 AM CDT Continue from Pre-Op 05/27/2022 6:58 AM CDT 150 mL/hr New Bag 05/27/2022 6:53 AM CDT 150 mL/hr lidocaine PF 2% (XYLOCAINE MPF) injection 0.3 mL 0.3 mL, Infiltration, PRE-PROCEDURE ONCE, Starting on Wed05/27/22 at 0619, Until Wed05/27/22 at 1031, Routine, Pre-op Given 05/27/2022 6:46 AM CDT 0.3 mL documented in this encounter Active and Recently Administered Medications Times are shown in CDT. Scheduled Medication Order 05/25/2022 05/26/2022 05/27/2022 ceFAZolin in sterile water (ANCEF) 2 gram/20 mL IV Syringe (PREMIX) 2,000 mg (COMPLETED) 2,000 mg, IV, PRE-PROCEDURE ONCE, 1 dose, Starting on Wed05/27/22 at 0619, Until Wed05/27/22 at 0708, Routine, Pre-op, Antibiotic Indication: Surgical prophylaxis 0708 (Given - Provid er: Destiney Mejia CRNA) lidocaine PF 2% (XYLOCAINE MPF) injection 0.3 mL 0.3 mL, Infiltration, PRE-PROCEDURE ONCE, Starting on Wed05/27/22 at 0619, Until Wed05/27/22 at 1031, Routine, Pre-op 0646 (Given - Provid er: Asiya Li RN) Continuous Medication Order 05/25/2022 05/26/2022 05/27/2022 lactated ringers infusion IV, at 150 mL/hr, PRE-PROCEDURE CONTINUOUS, Starting on Wed05/27/22 at 0630, Until Wed05/27/22 at 1031, Routine, Pre-op 0653 (New Bag - Prov ider: Asiya Li RN)0658 (Continue from Pre-Op - Provider: Destiney Mejia CRNA)0659 (Paused - Provider: Destiney Mejia CRNA - Comment: Switch to gravity)0700 (Restarted - Provider: Destiney Mejia CRNA)0729 (Fluid Volume - Provider: Destiney Mejia CRNA)0830 (Stopped - Provider: Carley Anderson RN) PRN Medication Order 05/25/2022 05/26/2022 05/27/2022 lidocaine PF 1% (XYLOCAINE MPF) injection (CANCELED) INTRA-PROCEDURE PRN, Starting on Wed05/27/22 at 0728, Until Wed05/27/22 at 0743, Routine, Anesthesia Intra-op 0728 (Given - Provid er: Christiano Shankar MD) sodium chloride 0.9 % irrigation solution (CANCELED) INTRA-PROCEDURE PRN, Starting on Wed05/27/22 at 0728, Until Wed05/27/22 at 0743, Routine, Anesthesia Intra-op 0728 (Given - Provid er: Christiano Shankar MD) documented in this encounter Care Teams Parking Enforcer Relationship Specialty Start Date End Date Rosa Shi MD [address] [place] [address] PCP - General Family Practice 01/15/21 documented as of this encounter
--- OUTSIDE RECORDS SUMMARY | 2024-10-23 02:16 | XMS_ITS | Encounter Summary ---
Author Organization [facility] [employer] [facility] Address [address] [place] [address] Care Team Providers Care Seed Trucker Name Role Phone Rosa Shi MD Primary Care Provider [phone] Encounter Details Date Type Department Care Team (Late st Contact Info) Description 06/01/2022 Orders Only [facility] Oncology and Hematology - Levi 2[address] [facility] [address] [place] [address] Aaron Smith MD 2227 [facility] [address] [place] [address] Malignant neoplasm of areola of [...] Office Visit [facility] Oncology and Hematology - Levi 2227 [facility] [address] [place] [address] Aaron Smith MD 2[address] [facility] [address] [place] [address] 03/29/2025 12:30 PM CDT Appointment [facility] [address] [place] [address] [place] [address] [facility] [address] [place] [address] 03/29/2025 1:30 PM CDT Office Visit [facility] Breast Surgery [place] [address] [facility] [address] [place] [address] [place] [address] [facility] [address] [place] [address] documented as of this encounter Visit Diagnoses Diagnosis 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, estrogen receptor positive Hypokalemia Hypopotassemia documented in this encounter Care Teams Seed Trucker Relationship Specialty Start Date End Date Rosa Shi MD [address] [place] [address] PCP - General Family Practice 01/15/21 documented as of this encounter
--- OUTSIDE RECORDS SUMMARY | 2024-10-23 02:16 | XMS_ITS | Encounter Summary ---
Author Organization [facility] Address [address] Becerra: Epic Prelude ADT [place] [address] Care Team Providers Care Intercell Connector Placer Name Role Phone Rosa Shi MD Primary Care Provider [phone] Encounter Details Date Type Department Care Team (Latest Contact Info) Description 05/07/2022 Travel Social History Tobacco Use Types Packs/Day [...] Center Oncology and Hematology - Levi [address] [facility] [address] [place] [address] Aaron Smith MD 2227 [facility] [address] [place] [address] 03/29/2025 12:30 PM CDT Appointment [facility] [address] [place] [address] [place] [address] [facility] [address] [place] [address] 03/29/2025 1:30 PM CDT [facility] [address] [address] [facility] [address] [place] [address] [place] [address] [facility] [address] [place] [address] documented as of this encounter Visit Diagnoses Not on filedocumented in this encounter Care Teams Intercell Connector Placer Relationship Specialty Start Date End Date Rosa Shi MD [address] [place] [address] PCP - General Family Practice 01/15/21 documented as of this encounter
--- OUTSIDE RECORDS SUMMARY | 2024-10-23 02:16 | XMS_ITS | Encounter Summary ---
Author Organization [facility] [employer] [facility] Address [address] [place] [address] Care Team Providers Care Cardiopulmonary Physical Therapist Name Role Phone Rosa Shi MD Primary Care Provider [phone] Reason for Visit * Reason Onset Date Comments Medication Refill 10/15/2022 Encounter Details Date Type Department Care Team (Late st Contact Info) Description 10/15/2022 Refill [facility] Oncology and Hematology - [place] [address] [place] [address] [facility] [address] [place] [address] Aaron Smith MD 2227 [facility] [address] [place] [address] Malignant neoplasm of areola of [...] Coronavirus/COVID-19? No / Unsure 09/22/2022 1:13 PM COIL TIER documented as of this encounter Plan of Treatment Upcoming Encounters Date Type Department Care Team (Late st Contact Info) Description 02/12/2025 1:00 PM CDT Office Visit [facility] Oncology and Hematology - Levi 2[address] [facility] [address] [place] [address] Aaron Smith MD 2[address] [facility] [address] [place] [address] 03/29/2025 12:30 PM CDT Appointment [facility] [address] [place] [address] [place] [address] [facility] [address] [place] [address] 03/29/2025 1:30 PM CDT Office Visit [facility] Breast Surgery [facility] [address] [facility] [address] [place] [address] [place] [address] [facility] [address] [place] [address] documented as of this encounter Visit Diagnoses Diagnosis 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, estrogen receptor positive documented in this encounter Care Teams Cardiopulmonary Physical Therapist Relationship Specialty Start Date End Date Rosa Shi MD [address] [place] [address] PCP - General Family Practice 01/15/21 documented as of this encounter
--- OUTSIDE RECORDS SUMMARY | 2024-10-23 02:16 | XMS_ITS | Encounter Summary ---
Author Organization [facility] [employer] [facility] Address [address] [place] [address] Care Team Providers Care Appraiser Oil And Water Name Role Phone Rosa Shi MD Primary Care Provider [phone] Encounter Details Date Type Department Care Team (Late st Contact Info) Description 10/26/2022 Orders Only [facility] Oncology and Hematology - Levi [address] [place] [address] Aaron Smith MD 2222 [facility] [address] [place] [address] Malignant neoplasm of areola of [...] and Hematology - Levi [address] [place] [address] Aaron Smith MD [address] [address] 03/29/2025 12:30 PM CDT Appointment [facility] [address] [place] [address] [place] [address] [facility] [address] [place] [address] 03/29/2025 1:30 PM CDT Office Visit [facility] Breast Surgery [address] [facility] [address] [place] [address] [place] [address] [facility] [address] [place] [address] documented as of this encounter Visit Diagnoses Diagnosis 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, estrogen receptor positive Hypokalemia Hypopotassemia documented in this encounter Care Teams Appraiser Oil And Water Relationship Specialty Start Date End Date Rosa Shi MD [address] [place] [address] PCP - General Family Practice 01/15/21 documented as of this encounter
--- OUTSIDE RECORDS SUMMARY | 2024-10-23 02:16 | XMS_ITS | Encounter Summary ---
Author Organization [facility] Address [address] [place] [address] Care Team Providers Care Slide Forming Machine Tender Name Role Phone Rosa Shi MD Primary Care Provider [phone] Reason for Referral * Radiology Services (Routine) - Closed Specialty Diagnoses / Procedures Referred By Contac t Referred To Contact Diagnoses Malignant neoplasm of left female breast, unspecified estrogen receptor status, unspecified site of breast Lymphedema Procedures MAMMO DIAG BILAT 3D JESS W OR WO CAD CHG DIAGNOSTIC MAMMOGRAPHY COMPUTER-AIDED DETCJ BI CHG DIGITAL BREAST TOMOSYNTH[place] [address] [address] [facility] [address] [place] [address] Referral ID Status Reason Start Date Expiration Date Visits Re quested Visits Authorized [id number] Closed 09/22/2022 10/23/2023 1 1 CE ASSISTANT Reason for Visit * Reason Comments Follow Up Encounter Details Date Type Department Care Team (Late st Contact Info) Description 09/22/2022 1:45 PM OFFICE ASSISTANT Office Visit [facility] BREAST SURGERY - [place] CLRKS[facility] [address] [place] [address] [place] [address] [facility] [address] [place] [address] Malignant neoplasm of left female breast, unspecified estrogen receptor status, unspecified site of breast (Primary Dx); Lymphedema Social History Tobacco Use [...] Coronavirus/COVID-19? No / Unsure 09/22/2022 1:13 PM OFFICE ASSISTANT documented as of this encounter Last Filed Vital Signs Vital Sign Reading Time Taken Comments Blood Pressure 140/70 09/22/2022 1:24 PM OFFICE ASSISTANT Pulse - - Temperature - - Respiratory Rate - - Oxygen Saturation - - Inhaled Oxygen Concentration - - Weight 106.1 kg (234 lb) 09/22/2022 1:24 PM OFFICE ASSISTANT Height 157.5 cm (5' 2 ) 09/22/2022 1:24 PM OFFICE ASSISTANT Body Mass Index 42.8 09/22/2022 1:24 PM OFFICE ASSISTANT documented in this encounter Progress Notes * Chayo Zepeda MD - 09/22/2022 1:55 PM CST PATIENT: Rosa Babb : 1965 DATE: 09/22/2022 Breast Cancer, LEFT UIQ Clinical Stage T2 N0 Mx Date of Diagnosis: 12/23/2020 Path: Left breast US guided core biopsy - invasive ductal carcinoma, intermediate grade ER positive (80%), IN weakly positive (1-5%), HER2 2+ equivocal (FISH [...] Rosa Babb is a 57 y.o. female, -[place], presents today for follow-up for her left [...] palpable lymph nodes. Stage ypT1 ypN0 - ER/IN positive, HER2 2+ (FISH positive) Today, she reports she is doing well. She does report occasional left breast heaviness and pain, although her incisions have healed nicely without concern. She has worked with OT/PT for breast lymphedema, which has slowly improved her symptoms. Overall, she is happy and grateful for her care. She is tolerating endocrine therapy and completed maintenance chemotherapy on May 18, 2022, followed by her right port removal. 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 She is . She drinks a rare amount. She is a non-smoker. She is heretoday with her brother to discuss surgical options. SULFUR BURNER HX: OB History 3 Para 1 Term [...] with mets HX HYSTERECTOMY HX SURGICAL OTHER 2007 vulvar lichen sclerosis IN BIOPSY/EXCISION, LYMPH NODE(S) Left 06/25/2021 LEFT AXILLARY SENTINEL LYMPH NODE BIOPSY WITH NUC MED AT 6:30 AM POSSIBLE AXILLARY LYMPH NODE DISSECTION performed by Chayo Zepeda MD at [facility] OR IN INS TUNNELED CVC W/O SUBQ PORT/ALUMINA PLANT SUPERVISOR AGE 3 YR/> Right 01/29/2021 RIGHT PORT A CATHETER PLACEMENT POSSIBLE LEFT PORT A CATHETER PLACEMENT performed by Chayo Zepeda MD at [facility] OR IN MASTECTOMY, PARTIAL Left 06/25/2021 LEFT BREAST WIDE LOCAL EXCISION LUMPECTOMY WITH NEEDLE LOCALIZATION AT 7:30 AM performed by Chayo Zepeda MD at [facility] OR IN RMVL MALDONADO CTR VAD W/SUBQ PORT/ALUMINA PLANT SUPERVISOR CTR/PRPH INSJ Right 05/27/2022 CATHETER VENOUS ACCESS REMOVAL performed by Chayo Zepeda MD at [facility] OR TONSILLECTOMY ALLERGY: Allergies Allergen Reactions Latex Rash MEDS: Current Outpatient Medications Medication Sig Dispense Refill rosuvastatin (CRESTOR) 5 mg tablet Take 5 mg by mouth daily. cholecalciferol, Vitamin D3, (VITAMIN D3) 25 mcg (1,000 unit) Capsule Take by mouth daily. anastrozole (Arimidex) 1 mg tablet Take 1 Tablet (1 mg) by mouth daily. 90 Tablet 3 blood-glucose meter (BLOOD GLUCOSE MONITOR KIT MIS) Diagnosis: Diabetes type 2 Blood testing frequency: 3 times a day ALBUTEROL INHALATION Take 1 Puff by inhalation Continuous as needed. LANCETS [facility] Use as directed blood sugar diagnostic Strip [...] level: Not on file Occupational History Employer: [employer] Tobacco Use Smoking status: Never Smokeless tobacco: [...] file Housing Stability: Not on file BP (!) 140/70 (BP Location: Right arm, Patient Position (BP): Sitting) Ht 5' 2 (1.575 m) Wt 106.1 kg (234 lb) BMI 42.80 kg/m?? PHYSICAL EXAM: Well-developed, well-nourished, pleasant woman. [...] personally reviewed the following films: Mammogram: 08/22/2020 ([place], [place]) - left breast UOQ posterior depth with mass measures 2.8 x 2.1 cm, stable. Left breast ultrasound: 12/18/2020 ([place], [place]) - newly palpable left breast periareolar 9:00 irregular mass, measures 1.2 cm. BIRADs 4. Left breast US guided core biopsy - 12/23/2020 - invasive ductal carcinoma, intermediate grade ER positive (80%), IN weakly positive (1-5%), HER2 2+ equivocal (FISH [...] Mammogram: 03/24/2022 - no evidence of malignancy IMPRESSION /PLAN: 57 y.o. postmenopausal -[place] woman with palpable left breast invasive carcinoma, [...] exams, and will continue annual mammography, per [place] [employer] guidelines. I will see her back in 6 months for a clinical breast exam and annual mammogram. See me back as needed if [...] data. Chayo Zepeda MD Breast Surgical Oncology [phone] cc: No referring provider defined for this encounter. CE ASSISTANT documented in this encounter Plan of Treatment Upcoming Encounters Date Type Department Care Team (Late st Contact Info) Description 02/12/2025 1:00 PM CDT Office Visit [facility] Oncology and Hematology - Levi 2[address] [facility] 200 [place] [address] Aaron Smith MD 2227 [facility] [address] [place] [address] 03/29/2025 12:30 PM CDT Appointment [facility] [address] [place] [address] [place] [address] [facility] [place] [address] 03/29/2025 1:30 PM CDT Office Visit [facility] Breast Surgery [place] [address] [address] [facility] [address] [place] [address] [place] [address] [facility] 120 [place] [address] documented as of this encounter Results * MAMMO DIAG BILAT 3D JESS W OR WO CAD (03/23/2023 12:30 PM CDT) Anatomical Region Laterality Modality Breast Bilateral Mammography 03/23/2023 12:3 0 PM CDT Impressions 03/23/2023 1:27 PM CDT IMPRESSION: No suspicious finding within either breast. Annual mammography recommended. BI-RADS Category 2: Benign findings DICTATION LOCATION: [place] Narrative 03/23/2023 1:27 PM CDT EXAM: BILATERAL [...] her mammogram performed on 03/24/2022. Procedure Note Chris Simmons MD - 03/23/2023 EXAM: BILATERAL DIGITAL [...] BI-RADS Category 2: Benign findings DICTATION LOCATION: [facility] Chayo Zepeda MD MAMMO ORDERABLES documented in this encounter Visit Diagnoses Diagnosis Malignant neoplasm of left female breast, unspecified estrogen receptor status, unspecified site of breast- Primary Lymphedema Other lymphedema Malignant neoplasm of left female breast, unspecified estrogen receptor status, unspecified site of breast Lymphedema Other lymphedema documented in this encounter Care Teams Slide Forming Machine Tender Relationship Specialty Start Date End Date Rosa Shi MD [address] [place] [address] PCP - General Family Practice 01/15/21 documented as of this encounter
--- OUTSIDE RECORDS SUMMARY | 2024-10-23 02:16 | XMS_ITS | Encounter Summary ---
Author Organization [facility] [employer] [facility] Address [address] [place] [address] Care Team Providers Care Estate Planning Paralegal Name Role Phone Rosa Shi MD Primary Care Provider [phone] Encounter Details Date Type Department Care Team (Late Contact Info) Description 12/07/2022 Orders Only [facility] Oncology and Hematology [facility] [address] [place] [address] Michelle Aguero Malignant neoplasm of [...] [facility] Oncology and Hematology [facility] [address] [place] [address] Aaron Smith MD 2[address] [facility] [address] [place] [address] 03/29/2025 12:[address] [facility] [address] [place] [address] [place] [address] [facility] [address] [place] [address] 03/29/2025 1:30 PM CDT Office Visit [facility] Breast Surgery [address] [address] [address] [facility] [facility] [address] [place] [address] [place] [address] [facility] [address] [place] [address] documented as of this encounter Visit Diagnoses Diagnosis 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, estrogen receptor positive Hypokalemia Hypopotassemia documented in this encounter Care Teams Estate Planning Paralegal Relationship Specialty Start Date End Date Rosa Shi MD [address] [place] [address] PCP - General Family Practice 01/15/21 documented as of this encounter
--- OUTSIDE RECORDS SUMMARY | 2024-10-23 02:16 | XMS_ITS | Encounter Summary ---
Author Organization [facility] Address [address] [place] [address] Care Team Providers Care Certified First Assistant Name Role Phone Rosa Shi MD Primary Care Provider [phone] Encounter Details Date Type Department Care Team (Late st Contact Info) Description 03/24/2022 Orders Only [facility] BREAST SURGERY - [place] CLR[facility] [address] [facility] [address] [place] [address] [place] [address] [place] [address] 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, estrogen receptor positive (Primary Dx); Lymphedema Social History Tobacco Use [...] 02/12/2025 1:00 PM CDT Office Visit [facility] Oncology and Hematology - Levi 2[address] [facility] 200 [place] [address] Aaron Smith MD [address] [facility] [address] [place] [address] 03/29/2025 12:[address] [facility] [address] [place] [address] [place] [address] [facility] 120 [place] [address] 03/29/2025 1:30 PM CDT Office Visit [facility] Breast Surgery [address] [address] [facility] [address] [place] [address] [place] [address] [facility] [address] [place] [address] documented as of this encounter Visit Diagnoses Diagnosis 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, estrogen receptor positive- Primary Lymphedema Other lymphedema documented in this encounter Care Teams Certified First Assistant Relationship Specialty Start Date End Date Rosa Shi MD [address] [place] [address] PCP - General Family Practice 01/15/21 documented as of this encounter
--- OUTSIDE RECORDS SUMMARY | 2024-10-23 02:16 | XMS_ITS | Encounter Summary ---
Author Organization [facility] [employer] [facility] Address [address] [place] [address] Care Team Providers Care Teacher Early Childhood Development Name Role Phone Rosa Shi MD Primary Care Provider [phone] Encounter Details Date Type Department Care Team (Late st Contact Info) Description 03/30/2022 Orders Only [facility] Oncology and Hematology - [place] [address] [facility] [address] [place] [address] Aaron Smith MD [address] [facility] [address] [place] [address] Malignant neoplasm of areola of [...] Description 02/12/2025 1:00 PM CDT Office Visit [facility] Oncology and Hematology - [place] 2227 [facility] 200 [place] [address] Aaron Smith MD [address] [facility] [address] [place] [address] 03/29/2025 12:30 PM CDT Appointment [facility] [address] [place] [address] [place] [address] [facility] 120 [place] [address] 03/29/2025 1:30 PM CDT Office Visit [facility] Breast Surgery [place] [address] [facility] [address] [place] [address] [place] [address] [facility] [address] [place] [address] documented as of this encounter Visit Diagnoses Diagnosis 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, estrogen receptor positive Hypokalemia Hypopotassemia documented in this encounter Care Teams Teacher Early Childhood Development Relationship Specialty Start Date End Date Rosa Shi MD [address] [place] [address] PCP - General Family Practice 01/15/21 documented as of this encounter
--- OUTSIDE RECORDS SUMMARY | 2024-10-23 02:16 | XMS_ITS | Encounter Summary ---
Author Organization [facility] [employer] [facility] Address [address] [place] [address] Care Team Providers Care Aircraft Electronics Technical Officer Name Role Phone Rosa Shi MD Primary Care Provider [phone] Encounter Details Date Type Department Care Team (Late st Contact Info) Description 07/27/2022 Orders Only [facility] Oncology and Hematology - [place] Radha Crowell [address] [place] [address] Aaron Smith MD [address] [facility] [address] [place] [address] Malignant neoplasm of areola of [...] Description 02/12/2025 1:00 PM CDT Office Visit [facility] Oncology and Hematology - [place] [address] [place] [address] Aaron Smith MD [address] [address] 03/29/2025 12:[address] [facility] [address] [place] [address] [place] [address] [facility] 120 [place] [address] 03/29/2025 1:30 PM CDT Office Visit [facility] Breast Surgery [place] [address] [facility] [address] [place] [address] [place] [address] [facility] [address] [place] [address] documented as of this encounter Visit Diagnoses Diagnosis 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, estrogen receptor positive Hypokalemia Hypopotassemia documented in this encounter Care Teams Aircraft Electronics Technical Officer Relationship Specialty Start Date End Date Rosa Shi MD [address] [place] [address] PCP - General Family Practice 01/15/21 documented as of this encounter
--- OUTSIDE RECORDS SUMMARY | 2024-10-23 02:16 | XMS_ITS | Encounter Summary ---
Author Organization [facility] [employer] [facility] Address [address] [place] [address] Care Team Providers Care Resume Writer Name Role Phone Rosa Shi MD Primary Care Provider Reason for Visit * Reason Comments Follow Up FOLLOW UP LAB Encounter Details Date Type Department Care Team (Late st Contact Info) Description 04/28/2022 11:15 AM CDT Office Visit [facility]] Oncology and Hematology - [place] [address] [place] [address] [facility] 200 [place] [address] Aaron Smith MD [address] [facility] [address] [place] [address] Malignant neoplasm of areola of [...] Sign Reading Time Taken Comments Blood Pressure 171/87 04/28/2022 10:42 AM CDT Pulse 86 04/28/2022 10:42 AM CDT Temperature 36.3 ??C (97.3 ??F) 04/28/2022 10:42 AM C DT Respiratory Rate - - Oxygen Saturation 94% 04/28/2022 10:42 AM CDT Inhaled Oxygen Concentration - - Weight 103.4 kg (228 lb) 04/28/2022 10:42 AM CDT Height 157.5 cm (5' 2 ) 04/28/2022 10:42 AM CDT Body Mass Index 41.7 04/28/2022 10:42 AM CDT documented in this encounter Progress Notes * Aaron Smith MD - 04/28/2022 10:58 AM CDT HEMATOLOGY / ONCOLOGY PROGRESS NOTE Patient Identification: Name: Rosa Babb Age: 56 y.o. Sex: female : 1965 DIAGNOSIS T2 N1 M0 stage IIB invasive mammary carcinoma status post left breast 9:00 needle biopsy done on January 14, 2021. ER strongly positive, SD weakly positive and HER-2/dez positive. Ultrasound-guided biopsy of satellite nodule 8 mm came back positive for invasive ductal carcinoma and biopsy of one of the nodule 4 mm also came back positive for invasive ductal carcinoma on January 23, 2021. CURRENT TREATMENT Maintenance Herceptin started September 29, 2021 Arimidex started September 29, 2021. TREATMENT HISTORY [...] - measures 2.5 cm and 1.7 cm. ?? Right breast - negative Patient had left breast lumpectomy and left axillary sentinel lymph node biopsy done on 06/25/2021 Patient has completed cycle 6/6 of chemotherapy with TCH Perjeta on 05/28/2021. Radiation therapy completed on September 22, 2021 SUBJECTIVE Patient came into the office for follow-up visit and continuation of maintenance Herceptin. She hasbeen tolerating treatment well. She has been having some just diffuse musculoskeletal discomfort otherwise denies any other new complaint. Review of system Constitutional: [...] Integumentary system: no lymphadenopathy, sweats, flushing Musculoskeletal: Complain of diffuse musculoskeletal discomfort Neurological: denies blurry or disturbed [...] No lymphadenopathy Neuro: No obvious focal deficit Examination as above PATH LABS Labs from [...] hemoglobin 12.2 platelet 247,000 CA 15-3 16 Assessment: Plan: Patient Active Problem List Diagnosis Date Noted ??? Malignant neoplasm of left female breast 01/09/2021 ??? Vulvar dermatitis 12/26/2012 Overview Note: Spongiotic by 11/2012 biopsy ??? Vulvar itching 12/09/2012 Overview Note: Chronic, despite medical treatment ??? Chronic vulvitis 12/09/2012 ??? S/P YEHUDA (total abdominal hysterectomy) 06/08/2012 ??? Essential hypertension, benign 06/08/2012 ??? Diabetes mellitus 06/08/2012 ??? Unspecified asthma(493.90) 06/08/2012 ??? History of delivery 06/08/2012 ??? S/P tubal ligation 06/08/2012 ??? Lichen sclerosus et atrophicus of the vulva 06/08/2012 Overview Note: Remote hx of, no evidence on 11/2012 repeat vulvar biopsy T1 N0 M0 stage I invasive ductal carcinoma of the left breast 1 cm size, high- grade with DCIS high-grade and 0/6 sentinel lymph node ER/SD positive and HER- 2/dez positive status post left-sided lumpectomy and left axillary lymph node biopsy done on 06/25/2021. Inferior margin less than 1 mm. Additional margins clear. Patient has completed cycle 6/6 of chemotherapy with TCH Perjeta on 05/28/2021. Patient completed radiation therapy treatment on September 22, 2021. Patient started maintenance Herceptin treatment on September 29, 2021. Labs noted. She will proceed with maintenance Herceptin treatment today. He has 1 more treatment left. I will see her back in 3 months with repeat labs. We discussed changing endocrine therapy to tamoxifen for musculoskeletal discomfort. She will call me back in 4 weeks after completion of last main tenance Herceptin to discuss changing hormonal therapy. In the meantime she will continue Arimidex.I will see her back in 3 months. Bilateral screening mammogram will be done in February 2023. Chemotherapy-induced anemia. Resolved. Musculoskeletal discomfort. This is secondary to hormonal therapy. We discussed changing in therapy. She will call back in 4 weeks to discuss further after completion of maintenance Herceptin. TOBACCO COUNSELING She is not a tobacco user. . 04/28/2022 Aaron Smith MD documented in this encounter Plan of Treatment Upcoming Encounters Date Type Department Care Team (Late st Contact Info) Description 02/12/2025 1:00 PM CDT Office Visit [facility]3] Oncology and Hematology - [place] 2227 [facility] 200 [place] [address] Aaron Smith MD [address] [facility] [address] [place] [address] 03/29/2025 12:30 PM CDT Appointment [facility] [address] [place] [address] [place] [address] [address] 03/29/2025 1:30 PM CDT Office Visit [facility] Breast Surgery [address] [address] [address] [facility] [address] [place] [address] [place] [address] [address] Scheduled Orders Name Type Priority Associated Diagnoses Orde r Schedule CBC WITH DIFFERENTIAL Lab Stat 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, estrogen receptor positive Expected: 07/21/2022, Expires: 04/28/2023 COMPREHENSIVE METABOLIC PANEL Lab Stat 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, estrogen receptor positive Expected: 07/21/2022, Expires: 04/28/2023 documented as of this encounter Visit Diagnoses Diagnosis 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, estrogen receptor positive- Primary documented in this encounter Care Teams Resume Writer Relationship Specialty Start Date End Date Rosa Shi MD [address] [place] [address] PCP - General Family Practice 01/15/21 documented as of this encounter
--- OUTSIDE RECORDS SUMMARY | 2024-10-23 02:16 | XMS_ITS | Encounter Summary ---
Author Organization [facility] [employer] [facility] Address [address] [place] [address] Care Team Providers Care Steel Fabricator Name Role Phone Rosa Shi MD Primary Care Provider [phone] Encounter Details Date Type Department Care Team (Late st Contact Info) Description 07/13/2022 Orders Only [facility] Oncology and Hematology - [place] Radha Crowell [address] [place] [address] Aaron Smith MD 2[address] [facility] [address] [place] [address] Malignant neoplasm of areola of [...] and Hematology - [place] [address] [place] [address] Aaron Smith MD [address] [address] 03/29/2025 12:30 PM CDT Appointment [facility] [address] [address] [place] [address] [place] [address] [facility] 120 [place] [address] 03/29/2025 1:30 PM CDT Office Visit [facility] Breast Surgery [address] [address] [facility] [address] [place] [address] [place] [address] [facility] [address] [place] [address] documented as of this encounter Visit Diagnoses Diagnosis 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, estrogen receptor positive Hypokalemia Hypopotassemia documented in this encounter Care Teams Steel Fabricator Relationship Specialty Start Date End Date Rosa Shi MD [address] [place] [address] PCP - General Family Practice 01/15/21 documented as of this encounter
--- OUTSIDE RECORDS SUMMARY | 2024-10-23 02:16 | XMS_ITS | Encounter Summary ---
Author Organization [facility] Address [address] [place] [address] Care Team Providers Care Hydraulic Jack Adjuster Name Role Phone Rosa Shi MD Primary Care Provider [phone] Encounter Details Date Type Department Care Team (Late st Contact Info) Description 10/19/2022 Orders Only [facility] Oncology and Hematology - [place] 2227 [facility] [address] [place] [address] Aaron Smith MD [address] [facility] [address] [place] [address] Malignant neoplasm of areola of [...] Coronavirus/COVID-19? No / Unsure 09/22/2022 1:13 PM BOAT BUFFER PLASTIC documented as of this encounter Plan of Treatment Upcoming Encounters Date Type Department Care Team (Late st Contact Info) Description 02/12/2025 1:00 PM CDT Office Visit [facility] Oncology and Hematology - [place] 2227 [facility] 200 [place] [address] Aaron Smith MD [address] [facility] [address] [place] [address] 03/29/2025 12:30 PM CDT Appointment [facility] [place] [address] [place] [address] [place] [address] [facility] 120 [place] [address] 03/29/2025 1:30 PM CDT Office Visit [facility] Breast Surgery [address] [place] [address] [facility] [address] [place] [address] [place] [address] [facility] 120 [place] [address] documented as of this encounter Visit Diagnoses Diagnosis 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, estrogen receptor positive Hypokalemia Hypopotassemia documented in this encounter Care Teams Hydraulic Jack Adjuster Relationship Specialty Start Date End Date Rosa Shi MD [address] [place] [address] PCP - General Family Practice 01/15/21 documented as of this encounter
--- OUTSIDE RECORDS SUMMARY | 2024-10-23 02:16 | XMS_ITS | Encounter Summary ---
Author Organization [facility] [employer] [facility] Address [address] [place] [address] Care Team Providers Care Transplant Nurse Name Role Phone Rosa Shi MD Primary Care Provider [phone] Encounter Details Date Type Department Care Team (Late st Contact Info) Description 09/28/2022 Orders Only [facility] Oncology and Hematology - [place] 2227 [facility] 200 [place] [address] Aaron Smith MD 2227 [facility] [address] [place] [address] Malignant neoplasm of areola of [...] Coronavirus/COVID-19? No / Unsure 09/22/2022 1:13 PM SKEIN WASHER documented as of this encounter Plan of Treatment Upcoming Encounters Date Type Department Care Team (Late st Contact Info) Description 02/12/2025 1:00 PM CDT Office Visit [facility] Oncology and Hematology - [place] 2227 [facility] 200 [place] [address] Aaron Smith MD 2227 [facility] [address] [place] [address] 03/29/2025 12:30 PM CDT Appointment [facility] [place] [address] [place] [address] [place] [address] [facility] 120 [place] [address] 03/29/2025 1:30 PM CDT Office Visit [facility] Breast Surgery [address] [place] [address] [facility] [address] [place] [address] [place] [address] [facility] [address] [place] [address] documented as of this encounter Visit Diagnoses Diagnosis 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, estrogen receptor positive Hypokalemia Hypopotassemia documented in this encounter Care Teams Transplant Nurse Relationship Specialty Start Date End Date Rosa Shi MD [address] [place] [address] PCP - General Family Practice 01/15/21 documented as of this encounter
--- OUTSIDE RECORDS SUMMARY | 2024-10-23 02:16 | XMS_ITS | Encounter Summary ---
Author Organization [facility] Address [address] [place] [address] Care Team Providers Care Dynamicist Name Role Phone Rosa Shi MD Primary Care Provider [phone] Encounter Details Date Type Department Care Team (Late st Contact Info) Description 03/24/2022 Prep for Surgery [facility] BREAST SURGERY - [place] CLRKSN [address] [facility] [address] [place] [address] [place] [address] [place] [address] Malignant neoplasm of left female breast, unspecified estrogen receptor status, unspecified site of breast (Primary Dx) Social History Tobacco Use Types [...] Description 02/12/2025 1:00 PM CDT Office Visit [facility] Oncology and Hematology - [place] 2227 [facility] 200 [place] [address] Aaron Smith MD 2[address] [facility] [address] [place] [address] 03/29/2025 12:30 PM CDT Appointment [facility] [address] [address] [place] [address] [place] [address] [facility] 120 [place] [address] 03/29/2025 1:30 PM CDT Office Visit [facility] Breast Surgery [place] [address] [facility] [address] [place] [address] [place] [address] [facility] 120 [place] [address] Scheduled Orders Name Type Priority Associated Diagnoses Orde r Schedule EKG 12-LEAD ECG Routine Malignant neoplasm of left female breast, unspecified estrogen receptor status, unspecified site of breast Ordered: 03/24/2022 documented as of this encounter Visit Diagnoses Diagnosis Malignant neoplasm of left female breast, unspecified estrogen receptor status, unspecified site of breast- Primary documented in this encounter Care Teams Dynamicist Relationship Specialty Start Date End Date Rosa Shi MD [address] [place] [address] PCP - General Family Practice 01/15/21 documented as of this encounter
--- OUTSIDE RECORDS SUMMARY | 2024-10-23 02:16 | XMS_ITS | Encounter Summary ---
Author Organization [facility] [employer] [facility] Address [address] [place] [address] Care Team Providers Care Hydraulic Controls Technician Name Role Phone Rosa Shi MD Primary Care Provider [phone] Encounter Details Date Type Department Care Team (Late st Contact Info) Description 01/04/2023 Orders Only [facility] Oncology and Hematology - [place] 2227 [facility] 200 [place] [address] Aaron Smith MD 2227 [facility] [address] [place] [address] Malignant neoplasm of areola of [...] Coronavirus/COVID-19? No / Unsure 12/14/2022 11:09 AM MANAGER RENTAL documented as of this encounter Plan of Treatment Upcoming Encounters Date Type Department Care Team (Late st Contact Info) Description 02/12/2025 1:00 PM CDT Office Visit [facility] Oncology and Hematology - [place] 2227 [facility] 200 [place] [address] Aaron Smith MD 2227 [facility] [address] [place] [address] 03/29/2025 12:30 PM CDT Appointment [facility] [place] [address] [place] [address] [place] [address] [facility] [address] [place] [address] 03/29/2025 1:30 PM CDT Office Visit [facility] Breast Surgery [address] [place] [address] [facility] [address] [place] [address] [place] [address] [facility] [address] [place] [address] documented as of this encounter Visit Diagnoses Diagnosis 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, estrogen receptor positive Hypokalemia Hypopotassemia documented in this encounter Care Teams Hydraulic Controls Technician Relationship Specialty Start Date End Date Rosa Shi MD [address] [place] [address] PCP - General Family Practice 01/15/21 documented as of this encounter
--- OUTSIDE RECORDS SUMMARY | 2024-10-23 02:16 | XMS_ITS | Encounter Summary ---
Author Organization [facility] [employer] [facility] Address [address] [place] [address] Care Team Providers Care Central Office Operator Name Role Phone Rosa Shi MD Primary Care Provider [phone] Encounter Details Date Type Department Care Team (Late st Contact Info) Description 08/31/2022 Orders Only [facility] Oncology and Hematology - [place] 2227 [facility] 200 [place] [address] Aaron Smith MD [address] [facility] [address] [place] [address] Malignant neoplasm of areola of [...] Description 02/12/2025 1:00 PM CDT Office Visit [facility] Oncology and Hematology - [place] 2227 [facility] [address] [place] [address] Aaron Smith MD [address] [facility] [address] [place] [address] 03/29/2025 12:[address] [facility] [address] [place] [address] [place] [address] [facility] 120 [place] [address] 03/29/2025 1:30 PM CDT Office Visit [facility] Breast Surgery [place] [address] [facility] [address] [place] [address] [place] [address] [facility] 120 [place] [address] documented as of this encounter Visit Diagnoses Diagnosis 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, estrogen receptor positive Hypokalemia Hypopotassemia documented in this encounter Care Teams Central Office Operator Relationship Specialty Start Date End Date Rosa Shi MD [address] [place] [address] PCP - General Family Practice 01/15/21 documented as of this encounter
--- OUTSIDE RECORDS SUMMARY | 2024-10-23 02:16 | XMS_ITS | Encounter Summary ---
Author Organization [facility] [employer] [facility] Address [address] [place] [address] Care Team Providers Care Flat Hammerer Name Role Phone Rosa Shi MD Primary Care Provider [phone] Encounter Details Date Type Department Care Team (Late st Contact Info) Description 05/11/2022 Orders Only [facility] Oncology and Hematology - [place] 2227 [facility] 200 [place] [address] Aarno Smith MD 2[address] [facility] [address] [place] [address] Malignant neoplasm of areola of [...] Description 02/12/2025 1:00 PM CDT Office Visit [facility] Oncology and Hematology - [place] 2227 [facility] [address] [place] [address] Aaron Smith MD [address] [facility] [address] [place] [address] 03/29/2025 12:30 PM CDT Appointment [facility] [address] [place] [address] [place] [address] [facility] 120 [place] [address] 03/29/2025 1:30 PM CDT Office Visit [facility] Breast Surgery [place] [address] [facility] [address] [place] [address] [place] [address] [facility] 120 [place] [address] documented as of this encounter Visit Diagnoses Diagnosis 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, estrogen receptor positive Hypokalemia Hypopotassemia documented in this encounter Care Teams Flat Hammerer Relationship Specialty Start Date End Date Rosa Shi MD [address] [place] [address] PCP - General Family Practice 01/15/21 documented as of this encounter
--- OUTSIDE RECORDS SUMMARY | 2024-10-23 02:16 | XMS_ITS | Encounter Summary ---
Author Organization [facility] [employer] Address [address] [place] [address] Care Team Providers Care Rib Knitter Name Role Phone Rosa Shi MD Primary Care Provider [phone] Encounter Details Date Type Department Care Team (Late st Contact Info) Description 08/17/2022 Orders Only [facility] Oncology and Hematology - Levi [address] [facility] [address] [place] [address] Aaron Smith MD [address] [facility] [address] [place] [address] Malignant neoplasm of areola of [...] Description 02/12/2025 1:00 PM CDT Office Visit [facility] Oncology and Hematology - Levi 2227 [facility] [address] [place] [address] Aaron Smith MD [address] [facility] [address] [place] [address] 03/29/2025 12:30 PM CDT Appointment [facility] [address] [place] [address] [place] [address] [facility] [address] [place] [address] 03/29/2025 1:30 PM CDT Office Visit [facility] Breast Surgery [address] [address] [facility] [address] [place] [address] [place] [address] [facility] [address] [place] [address] documented as of this encounter Visit Diagnoses Diagnosis 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, estrogen receptor positive Hypokalemia Hypopotassemia documented in this encounter Care Teams Rib Knitter Relationship Specialty Start Date End Date Rosa Shi MD [address] [place] [address] PCP - General Family Practice 01/15/21 documented as of this encounter
--- OUTSIDE RECORDS SUMMARY | 2024-10-23 02:16 | XMS_ITS | Encounter Summary ---
Author Organization [facility] [employer] [facility] Address [address] [place] [address] Care Team Providers Care Casting Machine Operator Name Role Phone Rosa Shi MD Primary Care Provider [phone] Reason for Referral * Radiology Services (Routine) - Closed Specialty Diagnoses / Procedures Referred By Contac t Referred To Contact Diagnoses Osteopenia of multiple sites Procedures XR DEXA BONE DENSITY AXIAL 1 OR MORE SITES Aaron Smith MD [address] [employer] [address] [place] [address] [place] [address] Referral ID Status Reason Start Date Expiration Date V isits Requested Visits Authorized [id number] Closed STL CTS 12/14/2022 01/14/2024 1 1 HT ATTENDANT INFLIGHT SERVICES Reason for Visit * Reason Comments Follow Up Encounter Details Date Type Department Care Team (Late st Contact Info) Description 12/14/2022 11:30 AM FLIGHT ATTENDANT INFLIGHT SERVICES Office Visit [facility] Oncology and Hematology [facility] [address] [place] [address] Aaron Smith MD [address] [employer] [address] [place] [address] Malignant neoplasm of areola of [...] Coronavirus/COVID-19? No / Unsure 12/14/2022 11:09 AM FLIGHT ATTENDANT IN[employer] SERVICES documented as of this encounter Last Filed Vital Signs Vital Sign Reading Time Taken Comments Blood Pressure 163/84 12/14/2022 11:28 AM FLIGHT ATTENDANT [employer] Pulse 82 12/14/2022 11:25 AM FLIGHT ATTENDANT [employer] Temperature 36 ??C (96.8 ??F) 12/14/2022 11: 25 AM FLIGHT ATTENDANT [employer] Respiratory Rate 12 12/14/2022 11:2 5 AM FLIGHT ATTENDANT [employer] Oxygen Saturation 97% 12/14/2022 11: 25 AM FLIGHT ATTENDANT [employer] Inhaled Oxygen Concentration - - Weight 105.1 kg (231 lb 11.2 oz) 2022 11:25 AM FLIGHT ATTENDANT [employer]IGHT SERVICES Height - - Body Mass Index 42.38 09/22/2022 1:24 PM FLIGHT ATTENDANT IN[employer] SERVICES documented in this encounter Progress Notes * Aaron Smith MD - 12/14/2022 12:24 PM CST HEMATOLOGY / ONCOLOGY PROGRESS NOTE Patient Identification: Name: Rosa Babb Age: 57 y.o. Sex: female : 1965 DIAGNOSIS T2 N1 M0 stage IIB invasive mammary carcinoma status post left breast 9:00 needle biopsy done on January 14, 2021. ER strongly positive, MN weakly positive and HER-2/dez positive. Ultrasound-guided biopsy of satellite nodule 8 mm came back positive for invasive ductal carcinoma and biopsy of one of the nodule 4 mm also came back positive for invasive ductal carcinoma on January 23, 2021. CURRENT TREATMENT Arimidex started September 29, 2021. TREATMENT HISTORY Breast MRI: 3/23/21 Left breast - irregular enhancing mass anterior [...] the office for follow-up visit. She is been tolerating Arimidex well. Denies any new lumps on the lymphadenopathy. Denies any night sweats fever chills. No other new complaints. Review of system [...] No lymphadenopathy Neuro: No obvious focal deficit Lateral breast examination showed postoperative and radiation changes in the left breast without any masses and lymphadenopathy. examination as above [facility] Labs from February [...] bilirubin 0.3 CBC normal CA 15-3 17 Assessment: Plan: Patient Active Problem List Diagnosis [...] DCIS high-grade and 0/6 sentinel lymph node ER/MN positive and HER- 2/dez positive status post [...] of disease on my examination. She will have bilateral mammogram in February 2023. I will see her back in 4 months. Chemotherapy-induced anemia. Resolved. Bone health. Patient is on vitamin D. Will order bone density now. TOBACCO COUNSELING She is not a tobacco user. 12/14/2022 Aaron Smith MD HT ATTENDANT INFLIGHT SERVICES documented in this encounter Plan of Treatment Upcoming Encounters Date Type Department Care Team (Late st Contact Info) Description 02/12/2025 1:00 PM CDT Office Visit [facility] Oncology and Hematology - [place] [address] [facility] [address] [place] [address] Aaron Smith MD [address] [facility] [address] [place] [address] 03/29/2025 12:30 PM CDT Appointment [facility] [address] [place] [place] [address] [place] [address] [address] [address] 03/29/2025 1:30 PM CDT Office Visit [facility] Breast Surgery [place] [address] [facility] [address] [place] [address] [place] [address] [facility] [address] [place] [address] Scheduled Orders Name Type Priority Associated Diagnoses Orde r Schedule XR DEXA BONE DENSITY AXIAL 1 OR MORE SITES Imaging Routine Osteopenia of multiple sites 1 Occurrences starting 12/14/2022 until 12/14/2023 documented as of this encounter Visit Diagnoses Diagnosis 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, estrogen receptor positive- Primary Osteopenia of multiple sites documented in this encounter Care Teams Casting Machine Operator Relationship Specialty Start Date End Date Rosa Shi MD [address] [place] [address] PCP - General Family Practice 01/15/21 documented as of this encounter
--- OUTSIDE RECORDS SUMMARY | 2024-10-23 02:16 | XMS_ITS | Encounter Summary ---
Author Organization [facility] [employer] [facility] Address [address] [place] [address] Care Team Providers Care Demolition Specialist Name Role Phone Rosa Shi MD Primary Care Provider [phone] Encounter Details Date Type Department Care Team (Late st Contact Info) Description 07/20/2022 Orders Only [facility] Oncology and Hematology - Levi [address] [place] [address] Aaron Smith MD [address] [facility] [address] [place] [address] Malignant neoplasm of areola of [...] Description 02/12/2025 1:00 PM CDT Office Visit [facility] Oncology and Hematology - Levi [address] [place] [address] Aaron Smith MD [address] [address] 03/29/2025 12:30 PM CDT Appointment [facility] [address] [place] [address] [place] [address] [facility] [address] [place] [address] 03/29/2025 1:30 PM CDT Office Visit [facility] Breast Surgery [address] [address] [facility] [address] [place] [address] [place] [address] [facility] [address] [place] [address] documented as of this encounter Visit Diagnoses Diagnosis 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, estrogen receptor positive Hypokalemia Hypopotassemia documented in this encounter Care Teams Demolition Specialist Relationship Specialty Start Date End Date Rosa Shi MD [address] [place] [address] PCP - General Family Practice 01/15/21 documented as of this encounter
--- OUTSIDE RECORDS SUMMARY | 2024-10-23 02:16 | XMS_ITS | Encounter Summary ---
Author Organization [facility] Address [address] [facility] [address] Becerra: Epic Prelude ADT [place] [address] Care Team Providers Care Bar Pointer Name Role Phone Rosa Shi MD Primary Care Provider [phone] Encounter Details Date Type Department Care Team (Latest Contact Info) Description 04/28/2022 Travel Social History Tobacco Use Types Packs/Day [...] [facility] Oncology and Hematology - [place] [address] [facility] [address] [place] [address] Aaron Smith MD [address] [facility] [address] [place] [address] 03/29/2025 12:30 PM CDT Appointment [facility] [address] [place] [address] [place] [address] [facility] [address] [place] [address] 03/29/2025 1:30 PM CDT Office Visit [facility] Breast Surgery [address] [address] [facility] [address] [place] [address] [place] [address] [facility] [address] [place] [address] documented as of this encounter Visit Diagnoses Not on filedocumented in this encounter Care Teams Bar Pointer Relationship Specialty Start Date End Date Rosa Shi MD [address] [place] [address] PCP - General Family Practice 01/15/21 documented as of this encounter
--- OUTSIDE RECORDS SUMMARY | 2024-10-23 02:16 | XMS_ITS | Encounter Summary ---
Author Organization [facility] [employer] [facility] Address [address] [place] [address] Care Team Providers Care Door Frame Assembler Machine Name Role Phone Rosa Shi MD Primary Care Provider [phone] Encounter Details Date Type Department Care Team (Late st Contact Info) Description 09/14/2022 Orders Only [facility] Oncology and Hematology - [place] [address] [place] [address] Aaron Smith MD [address] [facility] [address] [place] [address] Malignant neoplasm of areola of [...] Description 02/12/2025 1:00 PM CDT Office Visit [facility] Oncology and Hematology - Levi [address] [place] [address] [place] Smith [place] [address] [address] 03/29/2025 12:30 PM CDT Appointment [facility] [address] [place] [address] [place] [address] [facility] [address] [place] [address] 03/29/2025 1:30 PM CDT Office Visit [facility] Breast Surgery [address] [address] [facility] [address] [place] [address] [place] [address] [facility] [address] [place] [address] documented as of this encounter Visit Diagnoses Diagnosis 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, estrogen receptor positive Hypokalemia Hypopotassemia documented in this encounter Care Teams Door Frame Assembler Machine Relationship Specialty Start Date End Date Rosa Shi MD [address] [place] [address] PCP - General Family Practice 01/15/21 documented as of this encounter
--- OUTSIDE RECORDS SUMMARY | 2024-10-23 02:16 | XMS_ITS | Encounter Summary ---
Author Organization [facility] [employer] [facility] Address [address] [place] [address] Care Team Providers Care Gear Repairer Name Role Phone Rosa Shi MD Primary Care Provider [phone] Encounter Details Date Type Department Care Team (Late st Contact Info) Description 07/06/2022 Orders Only [facility] Oncology and Hematology - [place] [address] [place] [address] Aaron Smith MD [address] [facility] [address] [place] [address] Malignant neoplasm of areola of [...] [place] On[facility]ology - [place] [address] [place] [address] Aaron Smith MD [address] [address] 03/29/2025 12:30 PM CDT Appointment [facility] [address] [place] [address] [place] [address] [facility] [address] [place] [address] 03/29/2025 1:30 PM CDT [facility] [address] [address] [facility] [address] [place] [address] [place] [address] [facility] [address] [place] [address] documented as of this encounter Visit Diagnoses Diagnosis 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, estrogen receptor positive Hypokalemia Hypopotassemia documented in this encounter Care Teams Gear Repairer Relationship Specialty Start Date End Date Rosa Shi MD [address] [place] [address] PCP - General Family Practice 01/15/21 documented as of this encounter
--- OUTSIDE RECORDS SUMMARY | 2024-10-23 02:16 | XMS_ITS | Encounter Summary ---
Author Organization [facility] [employer] [facility] Address [address] [place] [address] Care Team Providers Care Electronic Heat Seal Operator Name Role Phone Rosa Shi MD Primary Care Provider [phone] Encounter Details Date Type Department Care Team (Late st Contact Info) Description 06/08/2022 Orders Only [facility] Oncology and Hematology - Levi [address] [email or web address] [address] [place] [address] Aaron Smith MD [address] [facility] [address] [place] [address] Malignant neoplasm of areola of [...] Health) Oncology and Hematology - Levi 2[address] [facility] [address] [place] [address] Aaron Smith MD [address] [facility] [address] [place] [address] 03/29/2025 12:[address] [facility] [address] [place] [address] [place] [address] [facility] [address] [place] [address] 03/29/2025 1:30 PM CDT Office Visit [facility] Breast Surgery [address] [facility] [address] [place] [address] [place] [address] [facility] [address] [place] [address] documented as of this encounter Visit Diagnoses Diagnosis 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, estrogen receptor positive Hypokalemia Hypopotassemia documented in this encounter Care Teams Electronic Heat Seal Operator Relationship Specialty Start Date End Date Rosa Shi MD [address] [place] [address] PCP - General Family Practice 01/15/21 documented as of this encounter
--- OUTSIDE RECORDS SUMMARY | 2024-10-23 02:16 | XMS_ITS | Encounter Summary ---
Author Organization [facility] Address [address] [place] [address] Care Team Providers Care Template Worker Name Role Phone Rosa Shi MD Primary Care Provider [phone] Reason for Visit * Auth/Cert Specialty Diagnoses / Procedures Referred By Vi jackson Referred To Contact Diagnoses Malignant neoplasm of left female breast, unspecified estrogen receptor status, unspecified site of breast Malignant neoplasm of left female breast, unspecified estrogen receptor status, unspecified site of breast [C50.912] Procedures MD RMVL MALDONADO CTR VAD W/SUBQ PORT/HANDMADE TILE [place]IST [place] [address] [place] [address] Referral ID Status Reason Start Date Expiration Date Visits Re quested Visits Authorized [id number] 03/25/2022 1 1 Encounter Details Date Type Department Care Team (Late st Contact Info) Description 05/27/2022 6:58 AM CDT Anesthesia Event [facility] [place] [address] [address] [place] [address] Zachery Starr MD [address] [facility] [place] [address] Destiney Mejia CRNA [address] [place] [address] Anesthesia Record Procedure Summary Procedure Name Responsible Anesthesiologist Anesthesia Start Time Anesthesia Stop Time CATHETER VENOUS ACCESS REMOVAL (Right: Chest) Zachery Starr MD 05/27/22 0658 05/27/22 0744 Events Date Time Event Comment 05/27/2022 0658 An Start Patient identif ied, EPIC chart, anesthesia plan, and consent reviewed and discussed with patient. Questions elicited and answered. Patient/family verbalizes understanding of anesthesia plan and wishes to proceed, Preop medicine given as documented. 0659 0700 AN Equip Check Anesthesia eq uipment and materials checked in accordance with local policy. 0700 In Room This event disp lays the In Room time documented in the Surgical Log. Deleting this event will not remove it from the log but will remove it from the Grid and Graph timeline. 0701 An Start Data 0703 Pre-Induction Immediate pre- induction anesthetic assessment performed. Vital signs as noted on graphic. 0705 An Induction MAC anesthesia with Propofol titrated to effect for adequate depth of sedation for procedure. Initial dose given and charted, then total dose administered and charted at procedure end. 0707 Anesthesia Ready 0713 Procedure Start This event d isplays the Procedure Start time documented in the Surgical Log. Deleting this event will not remove it from the log but will remove it from the Grid and Graph timeline. 0736 Procedure Stop This event di splays the Procedure Stop time documented in the Surgical Log. Deleting this event will not remove it from the log but will remove it from the Grid and Graph timeline. 0740 an stop data 0741 Out of Room This event disp lays the Out of Room time documented in the Surgical Log. Deleting this event will not remove it from the log but will remove it from the Grid and Graph timeline. 0742 an elizabeth now Arrive in PACU, report to RN. Handoff report completed with questions addressed and answered. Vital signs charted on anesthesia flow sheet. 0744 Hand-off to Receiving Clinic juan Post-Anesthetic transfer of care report elements to appropriate post-anesthesia recovery environment completed in accordance with procedure. 0744 An Stop Meds Name Total propofol (DIPRIVAN) 10??mg/mL injection 40 mg propofol (DIPRIVAN) 10??mg/mL injection 237.82 mg lidocaine PF (XYLOCAINE MPF) 20 mg/mL sy ringe 60 mg midazolam PF (VERSED) 5 mg/mL injection 2.5 mg fentaNYL (SUBLIMAZE) PF 50??mcg/mL injec tion 50 mcg ceFAZolin in sterile water ( ANCEF) 2 gram/20 mL IV Syringe (PREMIX) 2,000 mg 2,000 mg ondansetron (ZOFRAN) 4??mg/2 mL injectio n 4 mg lactated ringers infusion 350 mL * Agents Name O2 N2O Inspired N2O O2 * Blood No blood administrations on file. Lines, Drains, and Airways Type Details Placement Removal Wound 06/25/21; 0936; No; 1; Left; axilla; surgical 06/25/21 0936 by Belen Li RN Wound 06/25/21; 1030; No; 2; Left; breast; surgical 06/25/21 1030 by Belen Li RN Peripheral IV Pre-Hospital Start: No; Orientation: Posterior, Right; Location: Wrist; Device: Angiocath; Gauge: 20 gauge; Needle Length: 1 in length; Insertion Attempts: 2; Patient Tolerance: tolerated well; Pain Prevention: intradermal injection; Power Injectable Compatible: No; Removal Indication: no longer indicated; Removal Interventions: pressure dressing, catheter intact 05/27/22 0653 by Asiya Li RN 05/27/22 0830 by Carley Anderson RN Incision 05/27/22; 07; surg ical incision; Right; chest; 05/27/22; 203005/27/22 0720 by Darling Cruz RN 05/27/222030 by PROVIDER, DISCHARGE PATIENT documented in this encounter Social History Tobacco Use Types Packs/Day Years [...] AM CDT documented as of this encounter OR Notes * Anesthesia Postprocedure Evaluation - Zachery Starr MD - 05/27/2022 8:50 AM CDT Phase II Postanesthesia Evaluation Including [facility] Modified Dena Score Patient seen and evaluated: [facility] Modified Dena Score: Score: 20 (05/27/22830) COMMENTS: No apparent Anesthesia related complications RESPIRATORY FUNCTION: Respiration: able to breath and cough freely (05/27/22830) [2=able to breathe and cough freely, 1=dyspnea, limited breathing or tachypnea, 0=apnea or mechanicventilator] O2 Saturation: able to maintain O2 saturation greater than 92% on room air (05/27/22830) [2=able to maintain O2 saturation greater than 92% on room air, 1=needs O2 inhalation to maintain O2 saturation greater than 90%, 0=O2 saturation less than 90% even with O2 supplement] Resp: 17 (05/27/22814)SpO2: 96 % (05/27/22814) CARDIOVASCULAR FUNCTION: Heart Rate: 69 bpm (05/27/22814) BP: (!) 157/79 (05/27/22814) Circulation: BP within 20% of preanesthetic level (05/27/22830) [2=BP within 20% of preanesthetic level, 1=BP within 20-49% of preanesthetic level, 0=BP within 50%of preanesthetic level] MENTAL STATUS, NEURO, ACTIVITY: PATIENT PARTICIPATION IN EVALUATIONyes Consciousness: fully awake (05/27/22830) [2=fully awake, 1=arousable on calling, 0=not responding] Activity: able to move 4 extremities voluntarily or on command (05/27/22830) [2=able to move 4 extremities voluntarily or on command, 1=able to move 2 extremities voluntarily or on command, 0=unable to move extremities voluntarily or on command] Ambulation: able to stand up and walk straight, on ordered bedrest, or performing at patient's prior level of function (05/27/22830) [2=able to stand up and walk straight, on ordered bedrest, or performing at patient's prior level of function, 1=vertigo when erect, 0=dizziness when supine] TEMPERATURE: Temp: 37.3 ??C (05/27/22 0742) PAIN: Pain: pain free (05/27/22830) [2=pain free, 1=pain handled by oral medication, 0=pain requiring parenteral medication] NAUSEA AND VOMITING: no nausea and no vomiting Fasting/Feeding: able to drink fluids, ice chips or NPO (05/27/22830) [2=able to drink fluids, ice chips or NPO, 1=nauseated, 0=nausea and vomiting] POSTOPERATIVE HYDRATION: well hydrated Intake/Output Summary (Last 24 hours) at 05/27/2022 0850 Last data filed at 05/27/2022 0830 Gross per 24 hour Intake 450 ml Output -- Net 450 ml Urine Output: has voided, adequate urine output per device, or not applicable (05/27/22830) [2=has voided, adequate urine output per device, or not applicable, 1=unable to void but comfortable, 0=unable to void and uncomfortable] WOUND: Dressing: dry and clean or not applicable (05/27/22830) [2=dry and clean or not applicable, 1=wet, marked and not increasing, 0=growing area of wetness] Zachery Starr MD 05/27/2022 8:50 AM Post Anesthesia Evaluation Vitals: Vitals Value Taken Time BP 157/79 05/27/2215 Temp 37.3 ??C 05/27/2242 Resp 16 05/27/22 0816 SpO2 96 % 05/27/22815 Pulse 77 05/27/22815 Heart Rate 77 bpm 05/27/22815 Vitals shown include unvalidated device data. Pain Rating: Anesthesia Post Evaluation No complications documented. Zachery Starr MD * Anesthesia Handoff - Destiney Mejia CRNA - 05/27/2022 7:44 AM CDT Post-Anesthetic transfer of care report elements to appropriate post-anesthesia recovery environment completed in accordance with procedure. I completed my handoff to the receiving nurse during which we: 1. Identified the patient 2. Identified the responsible provider 3. Reviewed the pertinent medical history 4. Discussed the surgical course 5. Reviewed intra-op anesthesia management and issues during anesthesia 6. Set expectations for post-procedure period 7. Orders as necessary and appropriate for continuation of care are present in Epic. 8. Allowed opportunity for questions and acknowledgement of understanding. Vital Signs: BP: (!) 158/89 (05/27/2022 7:42 AM) Pulse: 91 (05/27/2022 7:42 AM) Temp: 37.3 ??C (05/27/2022 7:42 AM) Resp: 11 (05/27/2022 7:42 AM) SpO2: 98 % (05/27/2022 7:42 AM) 7:45 AM Destiney Mejia CRNA * Anesthesia Preprocedure Evaluation - Zachery Starr MD - 05/27/2022 6:56 AM CDT Relevant Problems CARDIOVASCULAR (+) Essential hypertension, benign Anesthesia Evaluation Patient summary reviewed and Nursing notes reviewed Airway Mallampati: II TM distance: >3 FB Neck ROM: full Dental - normal exam Pulmonary - normal exam breath sounds clear to auscultation (+) asthma, ROS comment: Patients boyfriend says she snores. No sleep study. Cardiovascular - normal exam Exercise tolerance: good (+) hypertension well controlled, Rhythm: regular Rate: normal Neuro/Psych (+) psychiatric history GI/Hepatic/Renal - negative ROS Endo/Other (+) diabetes mellitus type 2 well controlled, Abdominal (+) obese, Anesthesia History No history of anesthetic complications. Anesthesia Plan ASA Final: 3 MAC Intravenous induction NPO status > 8 hours Anesthetic plan and risks discussed with Patient. Plan discussed with Nurse Technical Asst, Anesthesiologist and Surgeon. Post-op Pain Control Plan to use IV or IM medication, Oral medication and Per surgeon for post-op pain control. Plan for postoperative opioid use Smoking Compliance Patient did not smoke on day of surgery documented in this encounter Plan of Treatment Upcoming Encounters Date Type Department Care Team (Late st Contact Info) Description 02/12/2025 1:00 PM CDT Office Visit [facility] Oncology and Hematology - Levi [address] [facility] [address] [place] [address] Aaron Smith MD [address] [facility] [address] [place] [address] 03/29/2025 12:30 PM CDT Appointment [facility] [address] [place] [address] [place] [address] [facility] [address] [place] [address] 03/29/2025 1:30 PM CDT Office Visit [facility] Breast Surgery [address] [address] [facility] [address] [place] [address] [place] [address] [facility] [address] [place] [address] documented as of this encounter Visit Diagnoses Not on filedocumented in this encounter Administered Medications Inactive Administered Medications - up to 3 most recent administrations Medication Order MAR Action Action Date Dose Rate Site ceFAZolin in sterile water (ANCEF) 2 gram/20 mL IV Syringe (PREMIX) 2,000 mg 2,000 mg, IV, PRE-PROCEDURE ONCE, 1 dose, Starting on Wed05/27/22 at 0619, Until Wed05/27/22 at 0708, Routine, Pre-op, Antibiotic Indication: Surgical prophylaxis Given 05/27/2022 7:08 AM CDT 2,000 mg fentaNYL PF (SUBLIMAZE) 50 mcg/mL injection IV, INTRA-PROCEDURE PRN, Starting on Wed05/27/22 at 0710, Until Wed05/27/22 at 0745, Routine, Anesthesia Intra-op Given 05/27/2022 7:13 AM CDT 25 mcg Given 05/27/2022 7:10 AM CDT 25 mcg lactated ringers infusion IV, at 150 mL/hr, PRE-PROCEDURE CONTINUOUS, Starting on Wed05/27/22 at 0630, Until Wed05/27/22 at 1031, Routine, Pre-op Restarted 05/27/2022 7:00 AM CDT Continue from Pre-Op 05/27/2022 6:58 AM CDT 150 mL/hr New Bag 05/27/2022 6:53 AM CDT 150 mL/hr lidocaine (PF) (XYLOCAINE MPF) 60 mg/3 mL (2 %) injection syringe IV, INTRA-PROCEDURE PRN, Starting on Wed05/27/22 at 0705, Until Wed05/27/22 at 0745, Routine, Anesthesia Intra-op Given 05/27/2022 7:05 AM CDT 60 mg midazolam (PF) (VERSED) injection IV, INTRA-PROCEDURE PRN, Starting on Wed05/27/22 at 0658, Until Wed05/27/22 at 0745, Routine, Anesthesia Intra-op Given 05/27/2022 6:58 AM CDT 2.5 mg ondansetron (ZOFRAN) 4 mg/2 mL injection IV, INTRA-PROCEDURE PRN, Starting on Wed05/27/22 at 0729, Until Wed05/27/22 at 0745, Routine, Anesthesia Intra-op Given 05/27/2022 7:29 AM CDT 4 mg propofoL (DIPRIVAN) injection IV, INTRA-PROCEDURE PRN, Starting on Wed05/27/22 at 0705, Until Wed05/27/22 at 0745, Anesthesia Intra-op Given 05/27/2022 7:05 AM CDT 40 mg propofoL (DIPRIVAN) injection IV, INTRA-PROCEDURE CONTINUOUS PRN, Starting on Wed05/27/22 at 0705, Until Wed05/27/22 at 0745, Anesthesia Intra-op New Bag 05/27/2022 7:05 AM CDT 100 mcg/kg/min 62.04 mL/hr documented in this encounter Care Teams Template Worker Relationship Specialty Start Date End Date Rosa Shi MD [address] [place] [address] PCP - General Family Practice 01/15/21 documented as of this encounter
--- OUTSIDE RECORDS SUMMARY | 2024-10-23 02:16 | XMS_ITS | Encounter Summary ---
Author Organization [facility] [employer] [facility] Address [address] [place] [address] Care Team Providers Care Hot Saw Helper Name Role Phone Rosa Shi MD Primary Care Provider [phone] Encounter Details Date Type Department Care Team (Late st Contact Info) Description 09/07/2022 Orders Only [facility] Oncology and Hematology - Levi [address] [place] [address] Aaron Smith MD [address] [facility] [address] [place] [address] Malignant neoplasm of areola of [...] 02/12/2025 1:00 PM CDT Office Visit [facility] Oncology and Hematology - [place] [address] [place] [address] Aaron Smith MD [address] [address] 03/29/2025 12:30 PM CDT Appointment [facility] [address] [place] [address] [place] [address] [facility] [address] [place] [address] 03/29/2025 1:30 PM CDT Office Visit [facility] Breast Surgery [address] [address] [facility] [address] [place] [address] [place] [address] [facility] [address] [place] [address] documented as of this encounter Visit Diagnoses Diagnosis 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, estrogen receptor positive Hypokalemia Hypopotassemia documented in this encounter Care Teams Hot Saw Helper Relationship Specialty Start Date End Date Rosa Shi MD [address] [place] [address] PCP - General Family Practice 01/15/21 documented as of this encounter
--- OUTSIDE RECORDS SUMMARY | 2024-10-23 02:16 | XMS_ITS | Encounter Summary ---
Author Organization [facility] [employer] [facility] Address [address] [place] [address] Care Team Providers Care Professor Of Religion Name Role Phone Rosa Shi MD Primary Care Provider [phone] Encounter Details Date Type Department Care Team (Late st Contact Info) Description 04/20/2022 Orders Only [facility] Oncology and Hematology - Levi [address] [facility] [address] [place] [address] Aaron Smith MD [address] [facility] [address] [place] [address] Malignant neoplasm of areola of [...] [facility] Oncology and Hematology - [place] [address] [facility] [address] [place] [address] Aaron Smith MD [address] [facility] [address] [place] [address] 03/29/2025 12:30 PM CDT Appointment [facility] [address] [place] [address] [place] [address] [facility] [address] [place] [address] 03/29/2025 1:30 PM CDT Office Visit [facility] Breast Surgery [address] [address] [facility] [address] [place] [address] [place] [address] [facility] [address] [place] [address] documented as of this encounter Visit Diagnoses Diagnosis 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, estrogen receptor positive Hypokalemia Hypopotassemia documented in this encounter Care Teams Professor Of Religion Relationship Specialty Start Date End Date Rosa Shi MD [address] [place] [address] PCP - General Family Practice 01/15/21 documented as of this encounter
--- OUTSIDE RECORDS SUMMARY | 2024-10-23 02:16 | XMS_ITS | Encounter Summary ---
Author Organization [facility] [employer] [facility] Address [address] [place] [address] Care Team Providers Care Corporate Responsibility Officer Name Role Phone Rosa Shi MD Primary Care Provider [phone] Encounter Details Date Type Department Care Team (Late st Contact Info) Description 06/22/[address] [facility] Oncology and Hematology - [place] [address] [facility] [address] [place] [address] Aaron Smith MD [address] [facility] [address] [place] [address] Malignant neoplasm of areola of [...] 02/12/2025 1:00 PM CDT Office Visit [facility] Oncology and Hematology - Levi [address] [facility] [address] [place] [address] Aaron Smith MD [address] [facility] [address] [place] [address] 03/29/2025 12:30 PM CDT Appointment [facility] [address] [place] [address] [place] [address] [facility] [address] [place] [address] 03/29/2025 1:30 PM CDT Office Visit [facility] Breast Surgery [address] [address] [facility] [address] [place] [address] [place] [address] [facility] [address] [place] [address] documented as of this encounter Visit Diagnoses Diagnosis 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, estrogen receptor positive Hypokalemia Hypopotassemia documented in this encounter Care Teams Corporate Responsibility Officer Relationship Specialty Start Date End Date Rosa Shi MD [address] [place] [address] PCP - General Family Practice 01/15/21 documented as of this encounter
--- OUTSIDE RECORDS SUMMARY | 2024-10-23 02:16 | XMS_ITS | Encounter Summary ---
Author Organization [facility] [employer] [facility] Address [address] [place] [address] Care Team Providers Care Robotics Engineer Name Role Phone Rosa Shi MD Primary Care Provider [phone] Encounter Details Date Type Department Care Team (Late st Contact Info) Description 05/18/2022 Orders Only [facility] Oncology and Hematology - [place] [address] [facility] [address] [place] [address] Aaron Smith MD [address] [facility] [address] [place] [address] Malignant neoplasm of areola of [...] suspected to have Coronavirus/COVID-19? No / Unsure 05/21/2022 4:18 PM CDT documented as of this encounter Plan of Treatment Upcoming Encounters Date Type Department Care Team (Late st Contact Info) Description 02/12/2025 1:00 PM CDT Office Visit [facility] Oncology and Hematology - [place] [address] [facility] [address] [place] [address] Aaron Smith MD [address] [facility] [address] [place] [address] 03/29/2025 12:30 PM CDT Appointment [facility] [address] [place] [address] [place] [address] [facility] [address] [place] [address] 03/29/2025 1:30 PM CDT Office Visit [facility] Breast Surgery [address] [address] [facility] [address] [place] [address] [place] [address] [facility] [address] [place] [address] documented as of this encounter Visit Diagnoses Diagnosis 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, estrogen receptor positive Hypokalemia Hypopotassemia documented in this encounter Care Teams Robotics Engineer Relationship Specialty Start Date End Date Rosa Shi MD [address] [place] [address] PCP - General Family Practice 01/15/21 documented as of this encounter
--- OUTSIDE RECORDS SUMMARY | 2024-10-23 02:16 | XMS_ITS | Encounter Summary ---
Author Organization [facility] Address [address] [facility] [address] Becerra: Epic Prelude ADT [place] [address] Care Team Providers Care Service Desk Associate Name Role Phone Rosa Shi MD Primary Care Provider [phone] Encounter Details Date Type Department Care Team (Latest Contact Info) Description 05/21/2022 Travel Social History Tobacco Use Types Packs/Day [...] Center Oncology and Hematology - [place] [address] [facility] [address] [place] [address] Aaron Smith MD [address] [facility] [address] [place] [address] 03/29/2025 12:[address] [facility] [address] [place] [address] [place] [address] [facility] [address] [place] [address] 03/29/2025 1:30 PM CDT Office Visit [facility] Breast Surgery [address] [address] [facility] [address] [place] [address] [place] [address] [facility] [address] [place] [address] documented as of this encounter Visit Diagnoses Not on filedocumented in this encounter Care Teams Service Desk Associate Relationship Specialty Start Date End Date Rosa Shi MD [address] [place] [address] PCP - General Family Practice 01/15/21 documented as of this encounter
--- OUTSIDE RECORDS SUMMARY | 2024-10-23 02:16 | XMS_ITS | Encounter Summary ---
Author Organization [facility] [employer] [facility] Address [address] [place] [address] Care Team Providers Care Medicaid Business Analyst Name Role Phone Rosa Shi MD Primary Care Provider [phone] Encounter Details Date Type Department Care Team (Late st Contact Info) Description 06/29/2022 Orders Only [facility] Oncology and Hematology - [place] [address] [place] [address] Aaron Smith MD [address] [facility] [address] [place] [address] Malignant [...] Description 02/12/2025 1:00 PM CDT Office Visit [facility] Oncology and Hematology - [place] [address] [place] [address] Aaron Smith MD [address] [address] 03/29/2025 12:30 PM CDT Appointment [facility] [address] [place] [address] [place] [address] [facility] [address] [place] [address] 03/29/2025 1:30 PM CDT Office Visit [facility] Breast Surgery [address] [address] [facility] [address] [place] [address] [place] [address] [facility] [address] [place] [address] documented as of this encounter Visit Diagnoses Diagnosis 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, estrogen receptor positive Hypokalemia Hypopotassemia documented in this encounter Care Teams Medicaid Business Analyst Relationship Specialty Start Date End Date Rosa Shi MD [address] [place] [address] PCP - General Family Practice 01/15/21 documented as of this encounter
--- OUTSIDE RECORDS SUMMARY | 2024-10-23 02:16 | XMS_ITS | Encounter Summary ---
Author Organization [facility] [employer] [facility] Address [address] [place] [address] Care Team Providers Care Child Care Development Specialist Name Role Phone Rosa Shi MD Primary Care Provider [phone] Reason for Visit * Reason Onset Date Comments Medication Refill 10/09/2022 Encounter Details Date Type Department Care Team (Late st Contact Info) Description 10/09/[address] [facility] Oncology and Hematology - [place] [address] [place] [address] [facility] [address] [place] [address] Aaron Smith MD [address] [facility] [address] [place] [address] Malignant neoplasm of areola of [...] Coronavirus/COVID-19? No / Unsure 09/22/2022 1:13 PM STEM ROLLER OPERATOR documented as of this encounter Plan of Treatment Upcoming Encounters Date Type Department Care Team (Late st Contact Info) Description 02/12/2025 1:00 PM CDT Office Visit [facility] Oncology and Hematology - [place] [address] [facility] [address] [place] [address] Aaron Smith MD [address] [facility] [address] [place] [address] 03/29/2025 12:30 PM CDT Appointment [facility] [place] [address] [place] [address] [place] [address] [facility] [address] [place] [address] 03/29/2025 1:30 PM CDT Office Visit [facility] Breast Surgery [facility] [address] [facility] [address] [place] [address] [place] [address] [facility] [address] [place] [address] documented as of this encounter Visit Diagnoses Diagnosis 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, estrogen receptor positive documented in this encounter Care Teams Child Care Development Specialist Relationship Specialty Start Date End Date Rosa Shi MD [address] [place] [address] PCP - General Family Practice 01/15/21 documented as of this encounter
--- OUTSIDE RECORDS SUMMARY | 2024-10-23 02:16 | XMS_ITS | Encounter Summary ---
Author Organization [facility] [employer] [facility] Address [address] [place] [address] Care Team Providers Care Epic Manager Name Role Phone Rosa Shi MD Primary Care Provider [phone] Encounter Details Date Type Department Care Team (Late st Contact Info) Description 07/12/2022 Orders Only [facility] On[facility] Hematology [place] [address] [place] [address] Aaron Smith MD [address] [facility] [address] [place] [address] Malignant neoplasm of areola of [...] 02/12/2025 1:00 PM CDT Office Visit [facility] - [place] [address] [place] [address] Aaron Smith MD [address] [address] 03/29/2025 12:30 PM CDT Appointment [facility] [address] [place] [address] [place] [address] [facility] [address] [place] [address] 03/29/2025 1:30 PM CDT Office Visit [facility] Breast Surgery [address] [facility] [address] [place] [address] [place] [address] [facility] [address] [place] [address] documented as of this encounter Visit Diagnoses Diagnosis 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, estrogen receptor positive documented in this encounter Care Teams Epic Manager Relationship Specialty Start Date End Date Rosa Shi MD [address] [place] [address] PCP - General Family Practice 01/15/21 documented as of this encounter
--- OUTSIDE RECORDS SUMMARY | 2024-10-23 02:16 | XMS_ITS | Encounter Summary ---
Author Organization [facility] [employer] [facility] Address [address] [place] [address] Care Team Providers Care Zipper Slide Attacher Name Role Phone Rosa Shi MD Primary Care Provider [phone] Encounter Details Date Type Department Care Team (Late st Contact Info) Description 06/15/[address] [facility] Oncology and Hematology - [place] [address] [facility] [address] [place] [address] Aaron Smith MD [address] [facility] [address] [place] [address] Malignant neoplasm of areola of [...] [facility] Oncology and Hematology - [place] [address] [facility] [address] [place] [address] Aaron Smith MD [address] [facility] [address] [place] [address] 03/29/2025 12:30 PM CDT Appointment [facility] [address] [place] [address] [place] [address] [facility] [address] [place] [address] 03/29/2025 1:30 PM CDT Office Visit [facility] Breast Surgery [address] [address] [facility] [address] [place] [address] [place] [address] [facility] [address] [place] [address] documented as of this encounter Visit Diagnoses Diagnosis 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, estrogen receptor positive Hypokalemia Hypopotassemia documented in this encounter Care Teams Zipper Slide Attacher Relationship Specialty Start Date End Date Rosa Shi MD [address] [place] [address] PCP - General Family Practice 01/15/21 documented as of this encounter
--- OUTSIDE RECORDS SUMMARY | 2024-10-23 02:16 | XMS_ITS | Encounter Summary ---
Author Organization [facility] [email or web address] [facility] Address [address] [place] [address] Care Team Providers Care Bus Transportation Manager Name Role Phone Rosa Shi MD Primary Care Provider [phone] Reason for Visit * Reason Onset Date Comments Medication Refill 10/09/2022 Encounter Details Date Type Department Care Team (Late st Contact Info) Description 10/09/[address] [facility] Oncology and Hematology - [place] [address] [place] [address] [facility] 200 [place] [address] Aaron Smith MD [address] [facility] [address] [place] [address] Malignant neoplasm of areola of [...] Coronavirus/COVID-19? No / Unsure 09/22/2022 1:13 PM GAS APPLIANCE SERVICER HELPER documented as of this encounter Plan of Treatment Upcoming Encounters Date Type Department Care Team (Late st Contact Info) Description 02/12/2025 1:00 PM CDT Office Visit [facility] Oncology and Hematology - [place] [address] [facility] [address] [place] [address] Aaron Smith MD [address] [facility] [address] [place] [address] 03/29/2025 12:30 PM CDT Appointment [facility] [address] [place] [address] [place] [address] [facility] [address] [place] [address] 03/29/2025 1:30 PM CDT Office Visit [facility] Breast Surgery [facility] [address] [facility] [address] [place] [address] [place] [address] [facility] [address] [place] [address] documented as of this encounter Visit Diagnoses Diagnosis 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, estrogen receptor positive- Primary documented in this encounter Care Teams Bus Transportation Manager Relationship Specialty Start Date End Date Rosa Shi MD [address] [place] [address] PCP - General Family Practice 01/15/21 documented as of this encounter
--- OUTSIDE RECORDS SUMMARY | 2024-10-23 02:16 | XMS_ITS | Encounter Summary ---
Author Organization [facility] Address [address] [facility] [address] Becerra: Epic Prelude ADT [place] [address] Care Team Providers Care Waxer Floor Name Role Phone Rosa Shi MD Primary Care Provider [phone] Encounter Details Date Type Department Care Team (Latest Contact Info) Description 09/22/2022 Travel Social History Tobacco Use Types Packs/Day [...] Coronavirus/COVID-19? No / Unsure 09/22/2022 1:13 PM GRAPE PICKER documented as of this encounter Plan of Treatment Upcoming Encounters Date Type Department Care Team (Late st Contact Info) Description 02/12/2025 1:00 PM CDT Office Visit [facility] Oncology and Hematology - [place] [address] [facility] [address] [place] [address] Aaron Smith MD [address] [facility] [address] [place] [address] 03/29/2025 12:30 PM CDT Appointment [facility] [address] [place] [address] [place] [address] [facility] [address] [place] [address] 03/29/2025 1:30 PM CDT Office Visit [facility] Breast Surgery [address] [facility] [address] [place] [address] [place] [address] [facility] [address] [place] [address] documented as of this encounter Visit Diagnoses Not on filedocumented in this encounter Care Teams Waxer Floor Relationship Specialty Start Date End Date Rosa Shi MD [address] [place] [address] PCP - General Family Practice 01/15/21 documented as of this encounter
--- OUTSIDE RECORDS SUMMARY | 2024-10-23 02:17 | XMS_ITS | Encounter Summary ---
Author Organization [facility] [employer] [facility] Address [address] [place] [address] Care Team Providers Care Steel Burner Name Role Phone Rosa hSi MD Primary Care Provider [phone] Reason for Visit * Reason Comments Chemotherapy Chemo 6 wk f/u with labs Encounter Details Date Type Department Care Team (Late st Contact Info) Description 01/12/2022 1:45 PM CDT Office Visit [facility] Oncology and Hematology - [place] [address] [place] [address] [address] [place] [address] Aaron Smith MD [address] [facility] [address] [place] [address] Malignant neoplasm of areola of [...] have Coronavirus / COVID-19? No / Unsure 01/12/2022 12:52 PM CDT documented as of this encounter Last Filed Vital Signs Vital Sign Reading Time Taken Comments Blood Pressure 144/71 01/12/2022 12:55 PM CDT Pulse 86 01/12/2022 12:55 PM CDT Temperature 36.4 ??C (97.5 ??F) 01/12/2022 12:55 PM C DT Respiratory Rate - - Oxygen Saturation 94% 01/12/2022 12:55 PM CDT Inhaled Oxygen Concentration - - Weight 102.1 kg (225 lb) 01/12/2022 12:55 PM CDT Height 157.5 cm (5' 2 ) 01/12/2022 12:55 PM CDT Body Mass Index 41.15 01/12/2022 12:55 PM CDT documented in this encounter Progress Notes * Aaron Smith MD - 01/12/2022 2:22 PM CDT HEMATOLOGY / ONCOLOGY PROGRESS NOTE Patient Identification: Name: Rosa Babb Age: 56 y.o. Sex: female : 1965 DIAGNOSIS T2 N1 M0 stage IIB invasive mammary carcinoma status post left breast 9:00 needle biopsy done on January 14, 2021. ER strongly positive, AL weakly positive and HER-2/dez positive. Ultrasound-guided biopsy [...] for follow-up visit and continuation of maintenance Herceptin treatment. She has been tolerating treatment well. She is feeling much more energetic as hemoglobin has improved. Denies any chest pain or shortness of breath. No other new complaints. Review of system Constitutional: denies fevers, sweats, denies any tiredness and fatigue HEENT: denies sinus congestion, hearing or vision problems Respiratory: denies cough, dyspnea, wheeze Cardiovascular: denies chest pain, exertional chest pressure/discomfort, nausea, syncope, shortnessof breath GI: denies dsyphagia, reflux symptoms, melena, denies any nausea vomiting and diarrhea, complain ofoccasional constipation : denies dysuria, frequency, incontinence, urgency Integumentary system: no lymphadenopathy, sweats, flushing Musculoskeletal: denies: myalgia, arthralgia Neurological: denies blurry or disturbed vision, [...] showed WBC 4.8 hemoglobin 12.4 platelet 246,000 Assessment: Plan: Patient Active Problem List Diagnosis [...] 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 Inferior margin less than 1 mm. Additional margins clear. Patient has completed cycle 6/6 of chemotherapy with [facility] on 05/28/2021. Patient completed radiation therapy treatment on September 22, 2021. Patient started maintenance Herceptin treatment on September 29, 2021. Labs noted and stable. She is clinically feeling much better and more stronger. She has been tolerating Herceptin well. She will also continue Arimidex. Patient will have right-sided diagnostic mammogram in March 2022. I plan to see her back in 6 weeks. Chemotherapy-induced anemia. Resolved. Patient is taking oral iron once a day. TOBACCO COUNSELING She is not a tobacco user. . 01/12/2022 Aaron Smith MD documented in this encounter Plan of Treatment Upcoming Encounters Date Type Department Care Team (Late st Contact Info) Description 02/12/2025 1:00 PM CDT Office Visit [facility] Oncology and Hematology - [place] [address] [facility] 200 [place] [address] Aaron Smith MD [address] [facility] [address] [place] [address] 03/29/2025 12:[address] [facility] [address] [place] [address] [place] [address] [facility] [address] [place] [address] 03/29/2025 1:30 PM CDT Office Visit [facility] Breast Surgery [address] [address] [facility] [address] [place] [address] [place] [address] [facility] [address] [place] [address] Scheduled Orders Name Type Priority Associated Diagnoses Orde r Schedule BASIC METABOLIC PANEL Lab Stat 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, estrogen receptor positive Expected: 02/19/2022, Expires: 01/12/2023 CBC WITH DIFFERENTIAL Lab Stat 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, estrogen receptor positive Expected: 02/19/2022, Expires: 01/12/2023 documented as of this encounter Visit Diagnoses Diagnosis 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, estrogen receptor positive Hypokalemia Hypopotassemia documented in this encounter Care Teams Steel Burner Relationship Specialty Start Date End Date Rosa Shi MD [address] [place] [address] PCP - General Family Practice 01/15/21 documented as of this encounter
--- OUTSIDE RECORDS SUMMARY | 2024-10-23 02:17 | XMS_ITS | Encounter Summary ---
Author Organization [facility] [employer] [facility] Address [address] [place] [address] Care Team Providers Care Mobile Application Developer Name Role Phone Rosa Shi MD Primary Care Provider [phone] Encounter Details Date Type Department Care Team (Late st Contact Info) Description 01/19/2022 Orders Only [facility] Oncology and Hematology - [place] [address] [facility] 200 [place] [address] Aaron Smith MD [address] [facility] [address] [place] [address] Malignant neoplasm of areola of [...] [facility] Oncology and Hematology - [place] [address] [facility] [address] [place] [address] Aaron Smith MD [address] [facility] [address] [place] [address] 03/29/2025 12:30 PM CDT Appointment [facility] [address] [place] [address] [place] [address] [facility] [address] [place] [address] 03/29/2025 1:30 PM CDT Office Visit [facility] Breast Surgery [facility] [address] [facility] [address] [place] [address] [place] [address] [facility] [address] [place] [address] documented as of this encounter Visit Diagnoses Diagnosis 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, estrogen receptor positive documented in this encounter Care Teams Mobile Application Developer Relationship Specialty Start Date End Date Rosa Shi MD [address] [place] [address] PCP - General Family Practice 01/15/21 documented as of this encounter
--- OUTSIDE RECORDS SUMMARY | 2024-10-23 02:17 | XMS_ITS | Encounter Summary ---
Author Organization [facility] Address [address] [place] [address] Care Team Providers Care Agile Scrum Master Name Role Phone Rosa Shi MD Primary Care Provider [phone] Reason for Referral * Radiology Services (Routine) - Closed Specialty Diagnoses / Procedures Referred By Contac t Referred To Contact Diagnoses 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, estrogen receptor positive Visit for screening mammogram Procedures MAMMO DIAG BILAT 3D JESS W OR WO CAD MAMMO DIAG UNI LEFT 3D JESS W OR WO CAD CHG DIAGNOSTIC MAMMOGRAPHY COMPUTER-AIDED DETCJ UNI CHG DIGITAL BREAST TOMOSYNTHESIS UNILATERAL CHG DIAGNOSTIC MAMMOGRAPHY COMPUTER-AIDED DETCJ BI CHG DIGITAL BREAST TOMOSYNTHESIS [place] [address] [address] Referral ID Status Reason Start Date Expiration Date Visits Re quested Visits Authorized [id number] Closed 10/21/2021 11/21/2022 1 1 ORDER PERSON * Radiology Services (Routine) - Closed Specialty Diagnoses / Procedures Referred By Contac t Referred To Contact Diagnoses 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, estrogen receptor positive Visit for screening mammogram Procedures MAMMO SCRN UNI RT 3D JESS W OR WO CAD CHG SCREENING MAMMOGRAPHY BI 2-VIEW BREAST INC CAD CHG SCREENING DIGITAL BREAST [place] [address] [facility] [address] [place] [address] Referral ID Status Reason Start Date Expiration Date Visits Re quested Visits Authorized [id number] Closed 10/21/2021 11/21/2022 1 1 ORDER PERSON Encounter Details Date Type Department Care Team (Late st Contact Info) Description 10/21/[address] [facility] BREAST SURGERY - [place] [facility] [address] [facility] [address] [place] [address] [place] [address] [facility] [address] [place] [address] 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, estrogen receptor positive (Primary Dx); Visit for screening mammogram Social History Tobacco Use Types [...] have Coronavirus / COVID-19? No / Unsure 10/21/2021 1:08 PM BOX ORDER PERSON documented as of this encounter Plan of Treatment Upcoming Encounters Date Type Department Care Team (Late st Contact Info) Description 02/12/2025 1:00 PM CDT Office Visit [facility] Oncology and Hematology - [place] [address] [place] [address] Aaron Smith MD [address] [facility] [address] [place] [address] 03/29/2025 12:30 PM CDT Appointment [facility] [address] [address] [place] [address] [address] [address] 03/29/2025 1:30 PM CDT Office Visit [facility] Breast Surgery [place] [address] [address] [place] [address] [address] [address] documented as of this encounter Results * MAMMO DIAG BILAT 3D JESS W OR WO CAD (03/24/2022 8:49 AM CDT) Anatomical Region Laterality Modality Breast Bilateral Mammography 03/24/2022 8:49 AM CDT Impressions 03/24/2022 9:51 AM CDT IMPRESSION: No evidence of malignancy. RECOMMENDATIONS: Bilateral annual routine mammogram. Left breast overall assessment: BI-RADS Category 2. Benign findings. Right breast overall assessment: BI-RADS Category 1. Negative. DICTATION LOCATION: [facility]atheryn Berg [facility] 03/24/2022 9:51 AM CDT MAMMOGRAPHY DIGITAL DIAGNOSTIC BILATERAL 3-D TOMOGRAPHY WITH CAD 03/24/2022. HISTORY: Left breast cancer and left lumpectomy. Status post chemotherapy and radiation. This is the first mammogram after the surgery. TECHNIQUE: Low-dose full-field digital tomosynthesis of bilateral breasts was performed with 2-D and 3-D acquisitions. Computer aided diagnosis was also applied. COMPARISON: 10/21/2021, 01/23/2021, 12/18/2019 08/22/2020. FINDINGS: There are scattered fibroglandular tissues bilaterally. The post surgical and post radiation changes in the left breast are seen. No significant mass, malignant calcification or architectural distortion is noted bilaterally. CAD was used. Procedure Note Catherine Solano MD - 03/24/2022 MAMMOGRAPHY DIGITAL DIAGNOSTIC BILATERAL 3-D TOMOGRAPHY WITH CAD 03/24/2022. HISTORY: Left breast cancer and left lumpectomy. Status post chemotherapy and radiation. This is the first mammogram after the surgery. TECHNIQUE: Low-dose full-field digital tomosynthesis of bilateral breasts was performed with 2-D and 3-D acquisitions. Computer aided diagnosis was also applied. COMPARISON: 10/21/2021, 01/23/2021, 12/18/2019 08/22/2020. FINDINGS: There are scattered fibroglandular tissues bilaterally. The post surgical and post radiation changes in the left breast are seen. No significant mass, malignant calcification or architectural distortion is noted bilaterally. CAD was used. IMPRESSION: No evidence of malignancy. RECOMMENDATIONS: Bilateral annual routine mammogram. Left breast overall assessment: BI-RADS Category 2. Benign findings. Right breast overall assessment: BI-RADS Category 1. Negative. DICTATION LOCATION: [facility] Chayo Zepeda MD MAMMO ORDERABLES * MAMMO SCRN UNI RT 3D JESS W OR WO CAD (10/21/2021 2:40 PM BOX ORDER PERSON) Anatomical Region Laterality Modality Breast Right Mammography 10/21/2021 2:42 PM BOX ORDER PERSON Impressions 10/21/2021 6:25 PM BOX ORDER PERSON IMPRESSION: ?? No evidence of right breast malignancy. RECOMMENDATION: Patient will be due for diagnostic mammography March 2022. OVERALL FINAL ASSESSMENT: ??BI-RADS CATEGORY 1 - Negative Results will be sent to patient via lay letter by mail. ?? DICTATION LOCATION: ??[facility] Narrative 10/21/2021 6:25 PM BOX ORDER PERSON UNILATERAL DIGITAL RIGHT SCREENING MAMMOGRAM WITH TOMOSYNTHESIS WITH COMPUTER AIDED DETECTION EXAM DATE: 10/21/2021 2:40 PM INDICATION: Breast cancer screening. History of breast cancer. 56-year-old female with personal history of left breast cancer status post lumpectomy in 2020. ?? COMPARISON: 06/25/2021, 01/23/2021, 04/18/2019. TECHNIQUE: Low Dose full field Digital Breast tomosynthesis examination was performed with 2D and 3D acquisitions. ??Examination is read in conjunction with computer aided detection. BREAST COMPOSITION: There are scattered areas of fibroglandular density. ?? FINDINGS: ?? No suspicious microcalcifications, masses, or architectural distortion. ??No suspicious mammographic or tomographic finding to suggest malignancy or significant interval change. CAD was used. ?? Procedure Note Rani Murphy MD - 10/21/2021 UNILATERAL DIGITAL RIGHT SCREENING MAMMOGRAM WITH TOMOSYNTHESIS WITH COMPUTER AIDED DETECTION EXAM DATE: 10/21/2021 2:40 PM INDICATION: Breast cancer screening. History of breast cancer. 56-year-old female with personal history of left breast cancer status post lumpectomy in 2020. COMPARISON: 06/25/2021, 01/23/2021, 04/18/2019. TECHNIQUE: Low Dose full field Digital Breast tomosynthesis examination was performed with 2D and 3D acquisitions. Examination is read in conjunction with computer aided detection. BREAST COMPOSITION: There are scattered areas of fibroglandular density. FINDINGS: No suspicious microcalcifications, masses, or architectural distortion. No suspicious mammographic or tomographic finding to suggest malignancy or significant interval change. CAD was used. IMPRESSION: No evidence of right breast malignancy. RECOMMENDATION: Patient will be due for diagnostic mammography March 2022. OVERALL FINAL ASSESSMENT: BI-RADS CATEGORY 1 - Negative Results will be sent to patient via lay letter by mail. DICTATION LOCATION: [facility] Chayo Zepeda MD MAMMO ORDERABLES documented in this encounter Visit Diagnoses Diagnosis 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, estrogen receptor positive- Primary Visit for screening mammogram Other screening mammogram 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, estrogen receptor positive Visit for screening mammogram Other screening mammogram 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, estrogen receptor positive Visit for screening mammogram Other screening mammogram documented in this encounter Care Teams Agile Scrum Master Relationship Specialty Start Date End Date Rosa Shi MD [address] [place] [id number] PCP - General Family Practice 01/15/21 documented as of this encounter
--- OUTSIDE RECORDS SUMMARY | 2024-10-23 02:17 | XMS_ITS | Encounter Summary ---
Author Organization [facility] [employer] [facility] Address [address] [place] [address] Care Team Providers Care Timber Buyer Name Role Phone Rosa Shi MD Primary Care Provider [phone] Reason for Visit * Reason Comments Chemotherapy 3 week f/u w Tx Encounter Details Date Type Department Care Team (Late st Contact Info) Description 11/10/2021 9:00 AM BEATER LEAD Office Visit [facility] Oncology and Hematology - [place] [address] [place] [address] Aaron Smith MD [address] [facility] [address] [place] [address] Malignant neoplasm of areola of [...] have Coronavirus / COVID-19? No / Unsure 11/10/2021 8:53 AM BEATER LEAD documented as of this encounter Last Filed Vital Signs Vital Sign Reading Time Taken Comments Blood Pressure 158/80 11/10/2021 9:20 AM BEATER LEAD Pulse 72 11/10/2021 9:20 AM BEATER LEAD Temperature 36.7 ??C (98 ??F) 11/10/2021 9:20 AM BEATER LEAD Respiratory Rate - - Oxygen Saturation 93% 11/10/2021 9:20 AM BEATER LEAD Inhaled Oxygen Concentration - - Weight 100.4 kg (221 lb 6.4 oz) 11/10/2021 9:20 AM BEATER LEAD Height 157.5 cm (5' 2 ) 11/10/2021 9:20 AM BEATER LEAD Body Mass Index 40.49 11/10/2021 9:20 AM BEATER LEAD documented in this encounter Progress Notes * Aaron Smith MD - 11/10/2021 9:45 AM CST HEMATOLOGY / ONCOLOGY PROGRESS NOTE Patient Identification: Name: Rosa Babb Age: 56 y.o. Sex: female : 1965 DIAGNOSIS T2 N1 M0 stage IIB invasive mammary carcinoma status post left breast 9:00 needle biopsy done on January 14, 2021. ER strongly positive, MA weakly positive and HER-2/dez positive. Ultrasound-guided biopsy [...] treatment. She has been tolerating treatment well. Denies any new lumps on the lymphadenopathy. She has someconstipation and stopped taking the iron pills. No other new complaint. Review of system Constitutional: denies fevers, sweats, denies any tiredness and fatigue HEENT: denies sinus congestion, hearing or vision problems Respiratory: denies cough, dyspnea, wheeze Cardiovascular: denies chest pain, exertional chest pressure/discomfort, nausea, syncope, shortnessof breath GI: denies dsyphagia, reflux symptoms, melena, denies any nausea vomiting and diarrhea, complain ofconstipation : denies dysuria, frequency, incontinence, urgency Integumentary [...] 4.1 hemoglobin 11.2 platelet 223,000 creatinine 0.7 Assessment: Plan: Patient Active Problem List Diagnosis [...] DCIS high-grade and 0/6 sentinel lymph node ER/MA positive and HER- 2/dez positive status post left-sided lumpectomy and left axillary lymph node biopsy done on 06/25/2021. Inferior margin less than 1 mm. Additional margins clear. Patient has completed cycle 6/6 of chemotherapy with TCH Perjeta on 05/28/2021. Patient completed radiation therapy treatment on September 22, 2021. Patient started maintenance Herceptin treatment on September 29, 2021. Labs noted and stable. She will continue Arimidex. Patient had right-sided mammogram done on October 21 and came back unremarkable. I plan to see her back in 6 weeks. Chemotherapy-induced anemia. Hemoglobin has been dropped. I recommended her to restart taking oral iron once a day. Constipation. She will start FiberCon and MiraLAX as needed. TOBACCO COUNSELING She is not a tobacco user. . 11/10/2021 Aaron Smith MD ER LEAD documented in this encounter Plan of Treatment Upcoming Encounters Date Type Department Care Team (Late st Contact Info) Description 02/12/2025 1:00 PM CDT Office Visit [facility] Oncology and Hematology - [place] [address] [facility] [address] [place] [id number] Aaron Smith MD [address] [facility] [address] [place] [address] 03/29/2025 12:30 PM CDT [facility] [address] [place] [address] [place] [address] [facility] [address] [place] [address] 03/29/2025 1:30 PM CDT Office Visit [facility] Breast Surgery [address] [address] [facility] [address] [place] [address] [place] [address] [facility] [address] [place] [address] Scheduled Orders Name Type Priority Associated Diagnoses Orde r Schedule COMPREHENSIVE METABOLIC PANEL Lab Stat 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, estrogen receptor positive Expected: 12/18/2021, Expires: 11/10/2022 CBC WITH DIFFERENTIAL Lab Stat 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, estrogen receptor positive Expected: 12/18/2021, Expires: 11/10/2022 documented as of this encounter Visit Diagnoses Diagnosis 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, estrogen receptor positive documented in this encounter Care Teams Timber Buyer Relationship Specialty Start Date End Date Rosa Shi MD [address] [place] [address] PCP - General Family Practice 01/15/21 documented as of this encounter
--- OUTSIDE RECORDS SUMMARY | 2024-10-23 02:17 | XMS_ITS | Encounter Summary ---
Author Organization [facility] [employer] [facility] Address [address] [place] [address] Care Team Providers Care City Planning Aide Name Role Phone Rosa Shi MD Primary Care Provider [phone] Encounter Details Date Type Department Care Team (Late st Contact Info) Description 12/23/2021 Orders Only [facility] Oncology and Hematology - [place] [address] [place] [address] Jennifer Bernard Malignant neoplasm of areola of left breast [...] and Hematology - [place] [address] [place] [address] Aaron Smith MD [address] [facility] [address] [place] [address] 03/29/2025 12:[address] [facility] Bella Berg [address] [address] [place] [address] [address] [facility] [address] [address] 03/29/2025 1:30 PM CDT Office Visit [facility] Breast Surgery Bella [address] [facility] [address] [place] [address] [place] [address] [address] [facility] [address] [address] documented as of this encounter Procedures Procedure Name Priority Date/Time Associated Diagnosis Comments BASIC METABOLIC PANEL Routine 12/22/2021 documented in this encounter Results * BASIC METABOLIC PANEL (12/22/2021) Blood Abstract Provider CHEMISTRY ORDERABLES documented in this encounter Visit Diagnoses Diagnosis 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, estrogen receptor positive documented in this encounter Care Teams City Planning Aide Relationship Specialty Start Date End Date Rosa Shi MD [address] [place] [address] PCP - General Family Practice 01/15/21 documented as of this encounter
--- OUTSIDE RECORDS SUMMARY | 2024-10-23 02:17 | XMS_ITS | Encounter Summary ---
Author Organization [facility] [employer] [facility] Address [address] [place] [address] Care Team Providers Care Plumbing Assembler Installer Name Role Phone Rosa Shi MD Primary Care Provider [phone] Encounter Details Date Type Department Care Team (Late st Contact Info) Description 03/17/2022 Orders Only [facility] Oncology and Hematology - [place] [address] [place] [address] Jennifer Bernard Malignant neoplasm of [...] suspected to have Coronavirus/COVID-19? No / Unsure 03/19/2022 9:31 AM CDT documented as of this encounter Plan of Treatment Upcoming Encounters Date Type Department Care Team (Late st Contact Info) Description 02/12/2025 1:00 PM CDT Office Visit [facility] Oncology and Hematology - [place] [address] [place] [address] Aaron Smith MD [address] [phone] 03/29/2025 12:30 PM CDT Appointment [facility] [address] [place] [address] [place] [address] [facility] [address] [place] [address] 03/29/2025 1:30 PM CDT Office Visit [facility] Breast Surgery [address] [address] [facility] [address] [place] [address] [place] [address] [facility] [address] [place] [address] documented as of this encounter Procedures Procedure Name Priority Date/Time Associated Diagnosis Comments BASIC METABOLIC PANEL Routine 03/16/2022 documented in this encounter Results * BASIC METABOLIC PANEL (03/16/2022) Blood Abstract Provider CHEMISTRY ORDERABLES documented in this encounter Visit Diagnoses Diagnosis 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, estrogen receptor positive documented in this encounter Care Teams Plumbing Assembler Installer Relationship Specialty Start Date End Date Rosa Shi MD [address] [place] [id number] PCP - General Family Practice 01/15/21 documented as of this encounter
--- OUTSIDE RECORDS SUMMARY | 2024-10-23 02:17 | XMS_ITS | Encounter Summary ---
Author Organization [facility] Address [address] [place] [address] Care Team Providers Care Technology Manager Name Role Phone Rosa Shi MD Primary Care Provider [phone] Reason for Visit * Reason Comments Follow Up 5 months Malignant n eoplasm of areola of left breast in female, estrogen receptor positive Encounter Details Date Type Department Care Team (Late st Contact Info) Description 03/24/2022 10:05 AM CDT Office Visit [facility] BREAST SURGERY - [place] [address] [place] [address] [place] [address] [place] [address] Malignant neoplasm of areola of [...] Sign Reading Time Taken Comments Blood Pressure 162/85 03/24/2022 9:16 AM CDT Pulse 79 03/24/2022 9:16 AM CDT Temperature - - Respiratory Rate - - Oxygen Saturation - - Inhaled Oxygen Concentration - - Weight 103.9 kg (229 lb) 03/24/2022 9:16 AM CDT Height 157.5 cm (5' 2 ) 03/24/2022 9:16 AM CDT Body Mass Index 41.88 03/24/2022 9:16 AM CDT documented in this encounter Progress Notes * Chayo Zepeda MD - 03/24/2022 9:55 AM CDT PATIENT: Rosa Babb : 1965 DATE: 03/24/2022 Breast Cancer, LEFT UIQ Clinical Stage T2 N0 Mx Date of Diagnosis: 12/23/2020 Path: Left breast US guided core biopsy - invasive ductal carcinoma, intermediate grade ER positive (80%), AR weakly positive (1-5%), HER2 2+ equivocal (FISH - amplified) - positive. . Surgeon(s): [place] Surgery: She is s/p left NL lumpectomy, SNB on 06/25/2021. Med Onc: Dr. Smith Chemo: TCHP x 6 cycles (completed May 28, 2021); maintenance HP Rad Onc: Dr. Moreira Radiation: whole breast and regional LN radiation (completed August 2021) Antiestrogen Therapy: Arimidex (started October 03, 2021) Rosa Babb is a 56 y.o. female, -[place]ian, presents today for follow-up for her left [...] palpable lymph nodes. Stage ypT1 ypN0 - ER/AR positive, HER2 2+ (FISH positive) Today, she reports she is doing well. She does report occasional left breast heaviness and pain, although her incisions have healed nicely without concern. She continues to wear a light sports bra she reports that is not part of her compression or significant support her heavy breasts. Overall, sheis happy and grateful for her care. Denies any changes in overall health or family history. She is tolerating endocrine therapy and will complete maintenance chemotherapy on May 18, 2022 and hopes to have her port removed during that day and prior to when school starts June 08. 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 She is . She drinks a rare amount. She is a non-smoker. She is heretoday with her brother to discuss surgical options. GERMINATION TESTING MANAGER HX: OB History 3 Para 1 Term 0 0 AB 2 Living 1 SAB 2 IAB 0 Ectopic 0 Multiple 0 Live Births PMH: Past Medical History: Diagnosis Date ??? Asthma ??? Breast cancer ??? Depression ??? Diabetes mellitus ??? Endometriosis ??? Fibroids ??? High cholesterol ??? HTN (hypertension) ??? Personal history of chemotherapy PSH: Past Surgical History: Procedure Laterality Date ??? HX BREAST LUMPECTOMY FOR CANCER Left 06/25/2021 IDC with radiation ??? HX SECTION ??? HX CORE NEEDLE BREAST BIOPSY Left 01/23/2021 & LN; IDC with mets ??? HX HYSTERECTOMY ??? 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 AR BIOPSY/EXCISION, LYMPH NODE(S) Left 06/25/2021 LEFT AXILLARY SENTINEL LYMPH NODE BIOPSY WITH NUC MED AT 6:30 AM POSSIBLE AXILLARY LYMPH NODE DISSECTION performed by Chayo Zepeda MD at [facility] OR ? ? AR INSJ TUNNELED CVC W/O SUBQ PORT/MICA SPLITTER AGE 5 YR/> Right 01/29/2021 RIGHT PORT A CATHETER PLACEMENT POSSIBLE LEFT PORT A CATHETER PLACEMENT performed by Chayo Zepeda MD at [facility] OR ??? AR MASTECTOMY, PARTIAL Left 06/25/2021 LEFT BREAST WIDE LOCAL EXCISION LUMPECTOMY WITH NEEDLE LOCALIZATION AT 7:30 AM performed by Chayo Zepeda MD at [facility] OR ??? TONSILLECTOMY ALLERGY: No Known Allergies MEDS: Current Outpatient Medications Medication Sig Dispense Refill ??? cholecalciferol, Vitamin D3, (VITAMIN D3) 25 mcg (1,000 unit) Capsule Take by mouth daily. ??? lidocaine-prilocaine (EMLA) 2.5-2.5 % Cream Apply to affected area see administration instructions. Apply to port site 1 hour prior to needle sticks- cover in saran wrap 30 Gram 3 ??? anastrozole (Arimidex) 1 mg tablet Take 1 Tablet (1 mg) by mouth daily. 90 Tablet 3 ??? blood-glucose meter (BLOOD GLUCOSE MONITOR KIT MISC) Diagnosis: Diabetes type 2 Blood testing frequency: 3 times a day ??? ALBUTEROL INHALATION Take 1 Puff by inhalation Continuous as needed. ??? LANCETS MISC Use as directed ??? blood sugar diagnostic Strip Diagnosis: Diabetes type 2 Blood testing frequency: 3 times a day ??? fluticasone propion-salmeteroL (ADVAIR DISKUS,WIXELA INHUB) 500-50 mcg/dose disk inhaler Take 1Puff by inhalation 2 times daily. No current [...] level: Not on file Occupational History Employer: [employer] Tobacco Use ??? Smoking status: Never [...] Housing Stability: Not on file BP (!) 162/85 (BP Location: Right arm, Patient Position (BP): Sitting, BP Cuff Size: Adult) Pulse79 Ht 5' 2 (1.575 m) Wt 103.9 kg (229 lb) BMI 41.88 kg/m?? PHYSICAL EXAM: Well-developed, well-nourished, pleasant woman. . Neck - no thyromegaly no cervical adenopathy Resp - no labored breathing, no wheezing CV - regular rate, 2+ pulses Right port intact. SCF- no adenopathy Axilla -no adenopathy Breasts - Right breast:normal in appearance, no masses, skin changes or nipple discharge Left breast: well healed lumpectomy and axillary incision. Postradiation changes. Significant dependent edema/lymphedema of the breast and axillary tissue. No evidence of recurrence. Abdomen - liver and spleen not palpably enlarged Extremities - Good range of motion of shoulders, no lymphedema present IMAGING: I personally reviewed the following films: Mammogram: 08/22/2020 ([place], [place]) - left breast UOQ posterior depth with mass measures 2.8 x 2.1 cm, stable. Left breast ultrasound: 12/18/2020 ([place], [place]) - newly palpable left breast periareolar 9:00 irregular mass, measures 1.2 cm. BIRADs 4. Left breast US guided core biopsy - 12/23/2020 - invasive ductal carcinoma, intermediate grade ER positive (80%), AR weakly positive (1-5%), HER2 2+ equivocal (FISH [...] - no evidence of malignancy IMPRESSION /PLAN: 56 y.o. postmenopausal -[place]ian woman with palpable left breast invasive carcinoma, [...] exams, and will continue annual mammography, per [place] [employer] guidelines. I will see her back in 6 months for a clinical breast exam. OT/PT evaluation for left breast lymphedema She will complete maintenance chemotherapy in April 2022 and requests her right port removal after that time. See me back as needed if any [...] data. Chayo Zepeda MD Breast Surgical Oncology [phone] cc: Rosa Shi MD [address] [place] [address] documented in this encounter Plan of Treatment Upcoming Encounters Date Type Department Care Team (Late st Contact Info) Description 02/12/2025 1:00 PM CDT Office Visit [facility] Oncology and Hematology - [place] [address] [facility] [address] [place] [address] Aaron Smith MD [address] [facility] [address] [place] [address] 03/29/2025 12:30 PM CDT Appointment [facility] [address] [place] [address] [place] [address] [facility] [address] [place] [address] 03/29/2025 1:30 PM CDT Office Visit [facility] Breast Surgery [facility] [address] [facility] [address] [place] [address] [place] [address] [facility] [address] [place] [address] documented as of this encounter Visit Diagnoses Diagnosis 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, estrogen receptor positive- Primary documented in this encounter Care Teams Technology Manager Relationship Specialty Start Date End Date Rosa Shi MD [address] [place] [phone] PCP - General Family Practice 01/15/21 documented as of this encounter
--- OUTSIDE RECORDS SUMMARY | 2024-10-23 02:17 | XMS_ITS | Encounter Summary ---
Author Organization [facility] [employer] [facility] Address [address] [place] [address] Care Team Providers Care Manual Writer Name Role Phone Rosa Shi MD Primary Care Provider [phone] Encounter Details Date Type Department Care Team (Late st Contact Info) Description 10/21/2021 Orders Only [facility] Oncology and Hematology - [place] [address] [place] [address] Jennifer Bernard Malignant neoplasm of [...] COVID-19? No / Unsure 10/21/2021 1:08 PM OFFICE MACHINE MECHANIC documented as of this encounter Plan of Treatment Upcoming Encounters Date Type Department Care Team (Late st Contact Info) Description 02/12/2025 1:00 PM CDT Office Visit [facility] Oncology and Hematology - [place] [address] [place] [address] Aaron Smith MD [address] [facility] [address] [place] [address] 03/29/2025 12:30 PM CDT Appointment [facility] [address] [place] [address] [place] [address] [place] [address] 03/29/2025 1:30 PM CDT Office Visit [facility] Breast Surgery [address] [address] [facility] [address] [place] [address] [place] [address] [address] [facility] [address] [place] [address] documented as of this encounter Procedures Procedure Name Priority Date/Time Associated Diagnosis Comments VITAMIN D 25 HYDROXY Routine 10/20/2021 HEMOGLOBIN A1C Routine 10/20/2021 CHOLESTEROL TOTAL Routine 10/20/2021 BASIC METABOLIC PANEL Routine 10/20/2021 documented in this encounter Results * VITAMIN D 25 HYDROXY (10/20/2021) Blood Abstract Provider CHEMISTRY ORDERABLES * CHOLESTEROL TOTAL (10/20/2021) Blood Abstract Provider CHEMISTRY ORDERABLES * HEMOGLOBIN A1C (10/20/2021) Blood Abstract Provider CHEMISTRY ORDERABLES * BASIC METABOLIC PANEL (10/20/2021) Blood Abstract Provider CHEMISTRY ORDERABLES documented in this encounter Visit Diagnoses Diagnosis 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, estrogen receptor positive documented in this encounter Care Teams Manual Writer Relationship Specialty Start Date End Date Rosa Shi MD [address] [place] [address] PCP - General Family Practice 01/15/21 documented as of this encounter
--- OUTSIDE RECORDS SUMMARY | 2024-10-23 02:17 | XMS_ITS | Encounter Summary ---
Author Organization [facility] Address [address] [place] [address] Care Team Providers Care Body Former Name Role Phone Rosa Shi MD Primary Care Provider [phone] Reason for Visit * Reason Comments Nurse Navigation Encounter Details Date Type Department Care Team (Late Contact Info) Description 08/26/2021 Chart Note [facility] On[facility] Patient Navigation [address] [place] [address] Sonia Herrera, SRINIVASAN Nurse Navigation Social History Tobacco Use Types Packs/Day Years [...] have Coronavirus / COVID-19? No / Unsure 08/21/2021 11:04 AM CDT documented as of this encounter Plan of Treatment Upcoming Encounters Date Type Department Care Team (Late Contact Info) Description 02/12/2025 1:00 PM CDT Office Visit [facility] Oncology and Hematology - [place] [address] [address] Aaron Smith MD [address] [phone] 03/29/2025 12:30 PM CDT Appointment [facility] [address] [place] [address] [place] [address] [facility] [address] [place] [address] 03/29/2025 1:30 PM CDT Office Visit [facility] Breast [facility] [place] [address] [facility] [address] [place] [address] [place] [address] [facility] [address] [place] [address] documented as of this encounter Visit Diagnoses Not on filedocumented in this encounter Care Teams Body Former Relationship Specialty Start Date End Date Rosa Shi MD [address] [place] [address] PCP - General Family Practice 01/15/21 documented as of this encounter
--- OUTSIDE RECORDS SUMMARY | 2024-10-23 02:17 | XMS_ITS | Encounter Summary ---
Author Organization [facility] Address [address] [place] [address] Care Team Providers Care Forensic Materials Engineer Name Role Phone Rosa Shi MD Primary Care Provider [phone] Reason for Referral * Radiology Services (Routine) [...] BI CHG DIGITAL BREAST TOMOSYNTHESIS [place] [address] [address] Referral ID Status Reason Start Date Expiration Date Visits Re quested Visits Authorized [id number] Closed 10/21/2021 11/21/2022 1 1 Reason for Visit * Radiology Services (Routine) - Closed Specialty Diagnoses / Procedures Referred By Contastrid t Referred To Contact Diagnoses Malignant neoplasm [...] DIGITAL BREAST TOMOS[place] [address] [facility] [address] [place] [address] Referral ID Status Reason Start Date Expiration Date Visits Re quested Visits Authorized [id number] Closed 10/21/2021 11/21/2022 1 1 Encounter Details Date Type Department Care Team (Latest Contact Info) Description 03/24/2022 8:09 AM CDT - 03/24/2022 11:59 PM CDT Hospital Encounter [facility] [address] [place] [address] [place] [address] [facility] [address] [place] [address] Discharge Disposition: Home or Self Care [...] AM CDT documented as of this encounter Medications at Time of Discharge Medication Sig Dispensed Refills Start Date End Date cholecalciferol, Vitamin D3, (VITAMIN D3) 25 mcg (1,000 unit) Capsule Take by mouth daily. blood-glucose meter (BLOOD GLUCOSE MONITOR KIT MISC) Diagnosis: Diabetes type 2 Blood testing frequency: 3 times a day 12/01/2020 ALBUTEROL INHALATION Take 1 Puff by inhalation Continuous as needed. LANCETS [facility] Use as directed 12/01/2020 blood sugar diagnostic Strip Diagnosis: Diabetes type 2 Blood testing frequency: 3 times a day 12/01/2020 fluticasone propion-salmeteroL (ADVAIR DISKUS,WIXELA INHUB) 500-50 mcg/dose disk inhaler Take 1 Puff by inhalation 2 times daily. lidocaine-prilocaine (EMLA) 2.5-2.5 % CreamIndications:Mal ignant neoplasm of areola of left breast in female, estrogen receptor positive,Hypokalemia ,Chemotherapy-induce d neutropenia Apply to affected area see administration instructions. Apply to port site 1 hour prior to needle sticks- cover in saran wrap 30 Gram 3 10/20/2021 05/27/2022 anastrozole (Arimidex) 1 mg tablet Take 1 Tablet (1 mg) by mouth daily. 90 Tablet 3 10/20/2021 10/09/2022 documented as of this encounter Plan of Treatment Upcoming Encounters Date Type Department Care Team (Late st Contact Info) Description 02/12/2025 1:00 PM CDT Office Visit [facility] Oncology and Hematology - [place] [address] [place] [address] [facility] [address] [place] [address] Aaron Smith MD [address] [facility] [address] [place] [address] 03/29/2025 12:30 PM CDT Appointment [facility] [address] [place] [address] [place] [address] [address] 03/29/2025 1:30 PM CDT Office Visit [facility] Breast Surgery [address] [address] [facility] [address] [place] [address] [place] [address] [address] documented as of this encounter Procedures Procedure Name Priority Date/Time Associated Diagnosis Comments MAMMO DIAG BILAT 3D JESS W OR WO CAD Routine 03/24/2022 8:49 AM CDT 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, estrogen receptor positive Visit for screening mammogram documented in this encounter Results * MAMMO [...] Category 1. Negative. DICTATION LOCATION: [facility] 03/24/2022 9:51 AM CDT MAMMOGRAPHY DIGITAL [...] assessment: BI-RADS Category 1. Negative. DICTATION LOCATION: [facility] Chayo Zepeda MD MAMMO ORDERABLES documented in this encounter Visit Diagnoses Diagnosis 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, estrogen receptor positive Visit for screening mammogram Other screening mammogram documented in this encounter Care Teams Forensic Materials Engineer Relationship Specialty Start Date End Date Rosa Shi MD [address] [place] [address] PCP - General Family Practice 01/15/21 documented as of this encounter
--- OUTSIDE RECORDS SUMMARY | 2024-10-23 02:17 | XMS_ITS | Encounter Summary ---
Author Organization [facility] Address [address] [place] [address] Care Team Providers Care Comfort Filler Name Role Phone Rosa Shi MD Primary Care Provider [phone] Reason for Referral * Radiology Services (Routine) [...] DIGITAL BREAST [place] [address] [facility] [address] [place] [address] Referral ID Status Reason Start Date Expiration Date Visits Re quested Visits Authorized [id number] Closed 10/21/2021 11/21/2022 1 1 NG ADVISOR Reason for Visit * Radiology Services (Routine) [...] DIGITAL BREAST [place] [address] [facility] [address] [place] [address] Referral ID Status Reason Start Date Expiration Date Visits Re quested Visits Authorized [id number] Closed 10/21/2021 11/21/2022 1 1 Encounter Details Date Type Department Care Team (Latest Contact Info) Description 10/21/2021 1:20 PM CODING ADVISOR - 10/21/2021 11:59 PM CODING ADVISOR Hospital Encounter [facility] [address] [place] [phone] [place] [address] [address] [facility] [address] [place] [address] Discharge Disposition: Home or Self Care [...] COVID-19? No / Unsure 10/21/2021 1:08 PM CODING ADVISOR documented as of this encounter Medications at Time of Discharge Medication Sig Dispensed Refills Start Date End Date cholecalciferol, Vitamin D3, (VITAMIN D3) 25 mcg (1,000 unit) Capsule Take by mouth daily. blood-glucose meter (BLOOD GLUCOSE MONITOR KIT MIS) Diagnosis: Diabetes type 2 Blood testing frequency: 3 times a day 12/01/2020 ALBUTEROL INHALATION Take 1 Puff by inhalation Continuous as needed. LANCETS [facility] Use as directed 12/01/2020 blood sugar diagnostic [...] [facility] Oncology and Hematology [facility] [address] [facility] [address] [place] [address] Aaron Smith MD [address] [facility] [address] [place] [address] 03/29/2025 12:30 PM CDT Appointment [facility] [address] [address] [place] [address] [place] [address] [address] 03/29/2025 1:30 PM CDT Office Visit [facility] Breast Surgery [address] [facility] [address] [place] [address] [place] [address] [facility] [address] [place] [address] documented as of this encounter Procedures Procedure Name Priority Date/Time Associated Diagnosis Comments MAMMO 3D JESS SCREEN UNI RT W OR WO CAD Routine 10/21/2021 2:40 PM CODING ADVISOR 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, estrogen receptor positive Visit for screening mammogram documented in this encounter Results * MAMMO SCRN UNI RT 3D JESS W OR WO CAD (10/21/2021 2:40 PM CODING ADVISOR) Anatomical Region Laterality Modality Breast Right Mammography 10/21/2021 2:42 PM CODING ADVISOR Impressions 10/21/2021 6:25 PM CODING ADVISOR IMPRESSION: ?? No evidence of right breast malignancy. RECOMMENDATION: Patient will be due for diagnostic mammography March 2022. OVERALL FINAL ASSESSMENT: ??BI-RADS CATEGORY 1 - Negative Results will be sent to patient via lay letter by mail. ?? DICTATION LOCATION: ??[facility] 10/21/2021 6:25 PM CODING ADVISOR UNILATERAL DIGITAL RIGHT SCREENING MAMMOGRAM WITH TOMOSYNTHESIS [...] via lay letter by mail. DICTATION LOCATION: [facility] Chayo Zepeda MD MAMMO ORDERABLES documented in this encounter Visit Diagnoses Diagnosis 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, estrogen receptor positive Visit for screening mammogram Other screening mammogram documented in this encounter Care Teams Comfort Filler Relationship Specialty Start Date End Date Rosa Shi MD [address] [place] [address] PCP - General Family Practice 01/15/21 documented as of this encounter
--- OUTSIDE RECORDS SUMMARY | 2024-10-23 02:17 | XMS_ITS | Encounter Summary ---
Author Organization [facility] Address [address] [facility] [address] Becerra: Epic Prelude ADT [place] [address] Care Team Providers Care Chemistry Lab Instructor Name Role Phone Rosa Shi MD Primary Care Provider [phone] Encounter Details Date Type Department Care Team (Latest Contact Info) Description 08/21/2021 Travel Social History Tobacco Use Types Packs/Day [...] Description 02/12/2025 1:00 PM CDT Office Visit [facility] Oncology and Hematology - [place] [address] [facility] [address] [place] [address] Aaron Smith MD [address] [facility] [address] [place] [address] 03/29/2025 12:30 PM CDT Appointment [facility] [address] [place] [address] [place] [address] [facility] [address] [place] [address] 03/29/2025 1:30 PM CDT Office Visit [facility] Breast Surgery [address] [address] [facility] [address] [place] [address] [place] [address] [facility] [address] [place] [address] documented as of this encounter Visit Diagnoses Not on filedocumented in this encounter Care Teams Chemistry Lab Instructor Relationship Specialty Start Date End Date Rosa Shi MD [address] [place] [address] PCP - General Family Practice 01/15/21 documented as of this encounter
--- OUTSIDE RECORDS SUMMARY | 2024-10-23 02:17 | XMS_ITS | Encounter Summary ---
Author Organization [facility] Address [address] [place] [address] Care Team Providers Care Bomb Loader Name Role Phone Rosa Shi MD Primary Care Provider [phone] Encounter Details Date Type Department Care Team (Late st Contact Info) Description 03/23/2022 Orders Only [facility] Oncology and Hematology - [place] [address] [facility] [address] [place] [address] Aaron Smith MD [address] [facility] [address] [place] [address] Malignant neoplasm of areola of [...] [facility] - [place] [address] [facility] [address] [place] [address] Aaron Smith MD [address] [facility] [address] [place] [address] 03/29/2025 12:30 PM CDT Appointment [facility] [address] [place] [address] [place] [address] [facility] [address] [place] [address] 03/29/2025 1:30 PM CDT Office Visit [facility] Breast Surgery [address] [address] [facility] [address] [place] [address] [place] [address] [facility] [address] [place] [address] documented as of this encounter Visit Diagnoses Diagnosis 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, estrogen receptor positive Hypokalemia Hypopotassemia documented in this encounter Care Teams Bomb Loader Relationship Specialty Start Date End Date Rosa Shi MD [address] [place] [address] PCP - General Family Practice 01/15/21 documented as of this encounter
--- OUTSIDE RECORDS SUMMARY | 2024-10-23 02:17 | XMS_ITS | Encounter Summary ---
Author Organization [facility] Address [address] [place] [address] Care Team Providers Care Web Content Executive Name Role Phone Rosa Shi MD Primary Care Provider [phone] Encounter Details Date Type Department Care Team (Late st Contact Info) Description 08/22/2021 11:30 AM CDT - 08/22/2021 11:59 PM CDT Hospital Encounter [facility] [address] [place] [address] [place] [address] [facility] [address] [place] [address] Terese Rodriguez, Academic Records Specialist Discharge Disposition: Home or Self Care Social [...] Sig Dispensed Refills Start Date End Date blood-glucose meter (BLOOD GLUCOSE MONITOR KIT MISC) Diagnosis: Diabetes type 2 Blood testing frequency: 3 times a day 12/01/2020 ALBUTEROL INHALATION Take 1 Puff by inhalation Continuous as needed. LANCETS MISC Use as directed 12/01/2020 blood sugar diagnostic Strip Diagnosis: Diabetes type 2 Blood testing frequency: 3 times a day 12/01/2020 fluticasone propion-salmeteroL (ADVAIR DISKUS,WIXELA INHUB) 500-50 mcg/dose disk inhaler Take 1 Puff by inhalation 2 times daily. HYDROcodone-acetamin ophen (NORCO) 5-325 mg tabletIndications:Ma lignant neoplasm of areola of left breast in female, estrogen receptor positive Take 1 Tablet by mouth every 4 hours as needed for Pain, Break-Through or Pain, Severe. Max Daily Amount: 6 Tablets 15 Tablet 06/25/2021 10/10/2021 lidocaine-prilocaine (EMLA) 2.5-2.5 % Cream Apply to affected area see administration instructions. Apply to port site 1 hour prior to needle sticks- cover in saran wrap 30 Gram 3 01/16/2021 10/20/2021 documented as of this encounter Miscellaneous Notes * Therapy Treatment - Terese Rodriguez, Academic Records Specialist - 08/22/2021 11:30 AM CDT [facility] DAILY LYMPHEDEMA THERAPY LOG Date of Service: 08/22/2021 Patient Name: Rosa Babb Date of : 1965 Referring Physician: Duane Diagnosis: Diagnosis: breast cancer Surgery 06/25/21 lumpectomy L and 0+/10 lymph nodes Chemotherapy: Neoadjuvant Infusion port for chemotherapy: yes on the Right side. Radiation: started 08/05/21 Barriers to Communication (language, hearing, vision, reading): no Methodist, Traditional or Cultural Practices Which May Impact Care: no Pain: Pain is located 0/10 but describes this as dull and numb, and occurs continuously of the L breast. Progress Note Due By: 10 Visit #: 2 Precautions: Hypertension, Diabetes, Patietn is not comfortable with having lower stomach exposed. peau d'orange appearance of L breast Pre-treatment pain score: 0/10 SUBJECTIVE Comments: Patient reports that her schedule does not permit for her to come to therapy more often. She has started radiation and is doing ok with it so far. She does not feel increased swelling in her breast or arm today. She reports having a rash on central lower abdomin and not wanting to have that area exposed. She has been doing self massage for lower abdomin over clothing. She did agree thatshe would have rash looked at by MD. OBJECTIVE Treatment given: Supervising PT/ROLL CONTOUR GRINDER on site consult Discussed monitoring for is compression is needed by taking measurements. Circumferential measurements: Patient measures improved to -2 % on L UE on involved non-dominant. Peau d'orange appearance of L breast has improved. Patient is not yet presenting with a radiation ramirez. Reviewed Self MLD with performing lowed abdomin over clothing due to patient not wanting to expose this area. She reported having rash in central abdomin but not on sides where technique was performed. She was emotional about having be worked on. Discussed seeing Dr Gomes and patient voiced that shefeels most secure with leaning into her yohannes at this time. She was comfortable to continue with MLD to Left intact/non intact axilla & UE. She was instructed on MLD of left breast and advised toavoid field once radiation ramirez starts to appear. Fall Assessment: no Medicine Changes to Summary List:none ASSESSMENT Comments: Patient received skilled Physical therapy intervention to address L breast swelling, UE, and self care. Updated Problems/Goals: On Going Post-treatment pain score: 0/10 PLAN Continue treatment per plan of care. Take measurements consider if compression is needed. Time in: 1140 Time out: 1240 Total Treatment Time: 60 Total timed minutes: 57 Terese Rodriguez PTA, CLT documented in this encounter Plan of Treatment Upcoming Encounters Date Type Department Care Team (Late st Contact Info) Description 02/12/2025 1:00 PM CDT Office Visit [facility] Oncology and Hematology - [place] [address] [facility] [address] [place] [address] Aaron Smith MD [address] [phone] 03/29/2025 12:[address] [facility] [address] [place] [phone] [place] [address] [facility] [address] [place] [address] 03/29/2025 1:30 PM CDT Office Visit [facility] Breast Surgery [address] [address] [facility] [address] [place] [address] [place] [address] [facility] [address] [place] [address] documented as of this encounter Visit Diagnoses Not on filedocumented in this encounter Care Teams Web Content Executive Relationship Specialty Start Date End Date Rosa Shi MD [address] [place] [phone] PCP - General Family Practice 01/15/21 documented as of this encounter
--- OUTSIDE RECORDS SUMMARY | 2024-10-23 02:17 | XMS_ITS | Encounter Summary ---
Author Organization [facility] [employer] [facility] Address [address] [place] [address] Care Team Providers Care Sustainability Project Manager Name Role Phone Rosa Shi MD Primary Care Provider [phone] Reason for Visit * Reason Onset Date Comments Medication Refill 10/20/2021 Encounter Details Date Type Department Care Team (Late st Contact Info) Description 10/20/2021 Refill [facility] Oncology and Hematology - [place] [address] [place] [address] Jose Antonio Montez MD [address] [place] [address] Social History Tobacco Use Types Packs/Day [...] have Coronavirus / COVID-19? No / Unsure 10/20/2021 11:31 AM GRAPHIC DESIGN ASSISTANT documented as of this encounter Plan of Treatment Upcoming Encounters Date Type Department Care Team (Late st Contact Info) Description 02/12/2025 1:00 PM CDT Office Visit [facility] Oncology and Hematology - [place] [address] [facility] [address] [place] [address] Aaron Smith MD [address] [facility] [address] [place] [address] 03/29/2025 12:30 PM CDT Appointment [facility] [address] [place] [address] [place] [address] [facility] [address] [place] [address] 03/29/2025 1:30 PM CDT Office Visit [facility] Breast Surgery [address] [place] [address] [facility] [address] [place] [address] [place] [address] [facility] [address] [place] [address] documented as of this encounter Visit Diagnoses Not on filedocumented in this encounter Care Teams Sustainability Project Manager Relationship Specialty Start Date End Date Rosa Shi MD [address] [place] [phone] PCP - General Family Practice 01/15/21 documented as of this encounter
--- OUTSIDE RECORDS SUMMARY | 2024-10-23 02:17 | XMS_ITS | Encounter Summary ---
Author Organization [facility] [employer] [facility] Address [address] [place] [address] Care Team Providers Care Automatic Trimming Sewer Name Role Phone Rosa Shi MD Primary Care Provider [phone] Reason for Referral * Radiology Services (Urgent) - Closed Specialty Diagnoses / Procedures Referred By Contac t Referred To Contact Diagnoses 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, estrogen receptor positive Procedures ECHO COMPLETE Aaron Smith MD [address] [employer] [address] [place] [address] [place] [address] Referral ID Status Reason Start Date Expiration Date V isits Requested Visits Authorized [id number] Closed [facility] CTS 01/14/2022 03/16/2022 1 1 Encounter Details Date Type Department Care Team (Late st Contact Info) Description 01/12/2022 Orders Only [facility] Oncology and Hematology [facility] [address] [place] [address] Aaron Smith MD [address] [employer] [address] [place] [address] Malignant neoplasm of areola of [...] Visit [facility] Oncology and Hematology - [place] [address] [facility] [address] [place] [address] Aaron Smith MD [address] [facility] [address] [place] [address] 03/29/2025 12:30 PM CDT Appointment [facility] [address] [place] [address] [place] [address] [address] 03/29/2025 1:30 PM CDT Office Visit [facility] Breast Surgery [address] [facility] [address] [place] [address] [place] [address] [facility] [address] [place] [address] Scheduled Orders Name Type Priority Associated Diagnoses Orde r Schedule ECHO COMPLETE Echocardiogram Stat 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, estrogen receptor positive 1 Occurrences starting 01/12/2022 until 01/12/2023 documented as of this encounter Visit Diagnoses Diagnosis 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, estrogen receptor positive- Primary documented in this encounter Care Teams Automatic Trimming Sewer Relationship Specialty Start Date End Date Rosa Shi MD [address] [place] [phone] PCP - General Family Practice 01/15/21 documented as of this encounter
--- OUTSIDE RECORDS SUMMARY | 2024-10-23 02:17 | XMS_ITS | Encounter Summary ---
Author Organization [facility] Address [address] Becerra: Epic Prelude ADT [place] [address] Care Team Providers Care Jockey'S Agent Name Role Phone Rosa Shi MD Primary Care Provider [phone] Encounter Details Date Type Department Care Team (Latest Contact Info) Description 11/10/2021 Travel Social History Tobacco Use Types Packs/Day [...] COVID-19? 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 documented as of this encounter Plan of Treatment Upcoming Encounters Date Type Department Care Team (Late st Contact Info) Description 02/12/2025 1:00 PM CDT Office Visit [facility] Oncology and Hematology - [place] [address] [facility] [address] [place] [address] Aaron Smith MD [address] [facility] [address] [place] [address] 03/29/2025 12:30 PM CDT Appointment [facility] [address] [place] [address] [place] [address] [facility] [address] [place] [address] 03/29/2025 1:30 PM CDT Office Visit [facility] Breast Surgery [address] [address] [facility] [address] [place] [address] [place] [address] [facility] [address] [place] [address] documented as of this encounter Visit Diagnoses Not on filedocumented in this encounter Care Teams Jockey'S Agent Relationship Specialty Start Date End Date Rosa Shi MD [facility] [place] [address] PCP - General Family Practice 01/15/21 documented as of this encounter
--- OUTSIDE RECORDS SUMMARY | 2024-10-23 02:17 | XMS_ITS | Encounter Summary ---
Author Organization [facility] Address [address] [place] [address] Care Team Providers Care Comic Writer Name Role Phone Rosa Shi MD Primary Care Provider [phone] Encounter Details Date Type Department Care Team (Late st Contact Info) Description 10/27/2021 Orders Only [facility] Oncology and Hematology - [place] [address] [facility] [address] [place] [address] Aaron Smith MD [address] [facility] [address] [place] [address] Malignant [...] COVID-19? No / Unsure 10/21/2021 1:08 PM PRECISION ASSEMBLER documented as of this encounter Plan of Treatment Upcoming Encounters Date Type Department Care Team (Late st Contact Info) Description 02/12/2025 1:00 PM CDT Office Visit [facility] Oncology and Hematology - [place] [address] [facility] [address] [place] [address] Aaron Smith MD [address] [facility] [address] [place] [address] 03/29/2025 12:30 PM CDT Appointment [facility] [address] [address] [place] [address] [place] [address] [facility] [address] [place] [address] 03/29/2025 1:30 PM CDT Office Visit [facility] Breast Surgery [facility] [address] [facility] [address] [place] [address] [place] [address] [facility] [address] [place] [address] documented as of this encounter Visit Diagnoses Diagnosis 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
--- OUTSIDE RECORDS SUMMARY | 2024-10-23 02:17 | XMS_ITS | Encounter Summary ---
Author Organization [facility] Address [address] [place] [address] Care Team Providers Care Fare Collector Name Role Phone Rosa Shi MD Primary Care Provider Reason for Visit * Reason Comments Follow Up 3 MONTH Encounter Details Date Type Department Care Team (Late st Contact Info) Description 10/21/2021 1:00 PM FUNERAL HOME MAKEUP ARTIST Office Visit [facility] BREAST SURGERY - [place] [address] [place] [address] [place] [address] [place] [address] Malignant neoplasm of areola of [...] COVID-19? No / Unsure 10/21/2021 1:08 PM FUNERAL HOME MAKEUP ARTIST documented as of this encounter Last Filed Vital Signs Vital Sign Reading Time Taken Comments Blood Pressure 132/70 10/21/2021 1:14 PM FUNERAL HOME MAKEUP ARTIST Pulse - - Temperature - - Respiratory Rate - - Oxygen Saturation - - Inhaled Oxygen Concentration - - Weight 99.3 kg (219 lb) 10/21/2021 1:14 PM FUNERAL HOME MAKEUP ARTIST Height 157.5 cm (5' 2 ) 10/21/2021 1:14 PM FUNERAL HOME MAKEUP ARTIST Body Mass Index 40.06 10/21/2021 1:14 PM FUNERAL HOME MAKEUP ARTIST documented in this encounter Progress Notes * Chayo Zepeda MD - 10/21/2021 1:19 PM CST PATIENT: Rosa Babb : 1965 DATE: 10/21/2021 Breast Cancer, LEFT UIQ Clinical Stage T2 N0 Mx Date of Diagnosis: 12/23/2020 Path: Left breast US guided core biopsy - invasive ductal carcinoma, intermediate grade ER positive (80%), IA weakly positive (1-5%), HER2 2+ equivocal (FISH - amplified) - positive. . Surgeon(s): Duane Surgery: She is s/p left NL lumpectomy, SNB on 06/25/2021. Med Onc: Dr. Smith Chemo: TCHP x 6 cycles (completed May 28, 2021) Rad Onc: Dr. Moreira Radiation: whole breast and regional LN radiation (completed August 2021) Antiestrogen Therapy: Arimidex (started October 03, 2021) Rosa Babb is a 56 y.o. female, -[place], presents today for follow-up for her left [...] palpable lymph nodes. Stage ypT1 ypN0 - ER/IA positive, HER2 2+ (FISH positive) Today, she reports she is doing well. She tolerated radiation without significant side effects. 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 She is . She drinks a rare amount. She is a non-smoker. She is heretoday with her brother to discuss surgical options. PRESSURE WASHER HX: OB History 3 Para 1 Term 0 0 AB 2 Living 1 SAB 2 TAB 0 Ectopic 0 Multiple 0 Live Births PMH: Past Medical History: Diagnosis Date ??? Asthma ??? Breast cancer ??? Depression ??? Diabetes mellitus ??? Endometriosis ??? Fibroids ??? High cholesterol ??? HTN (hypertension) ??? Personal history of chemotherapy PSH: Past Surgical History: Procedure Laterality Date ??? HX BREAST LUMPECTOMY FOR CANCER ??? HX SECTION ??? HX CORE NEEDLE BREAST BIOPSY ??? HX HYSTERECTOMY ??? 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 IA BIOPSY/EXCISION, LYMPH NODE(S) Left 06/25/2021 LEFT AXILLARY SENTINEL LYMPH NODE BIOPSY WITH NUC MED AT 6:30 AM POSSIBLE AXILLARY LYMPH NODE DISSECTION performed by Chayo Zepeda MD at [facility] OR ? ? IA INSJ TUNNELED CVC W/O SUBQ PORT/COLOR DEVELOPER AGE 3 YR/> Right 01/29/2021 RIGHT PORT A CATHETER PLACEMENT POSSIBLE LEFT PORT A CATHETER PLACEMENT performed by Chayo Zepeda MD at [facility] OR ??? IA MASTECTOMY, PARTIAL Left 06/25/2021 LEFT BREAST WIDE LOCAL EXCISION LUMPECTOMY WITH NEEDLE LOCALIZATION AT 7:30 AM performed by Chayo Zepeda MD at [facility] OR ??? TONSILLECTOMY ALLERGY: No [...] Use as directed ??? blood sugar diagnostic (Carlos Blood Glucose Test Strip) Strip Diagnosis: Diabetes type 2 Blood testing frequency: 3 times a day ??? fluticasone-salmeterol (ADVAIR DISKUS) 500-50 mcg/dose Inhalation DsDv Take 1 Puff by inhalation 2 times [...] level: Not on file Occupational History Employer: [employer] Tobacco Use ??? Smoking status: Never [...] file Intimate Partner Violence: Not on file BP 132/70 (BP Location: Right arm, Patient Position (BP): Sitting, BP Cuff Size: Adult) Ht 5' 2 (1.575 m) Wt 99.3 kg (219 lb) BMI 40.06 kg/m?? PHYSICAL EXAM: Well-developed, well-nourished, pleasant woman. Anxious. Pleasant woman Neck - no thyromegaly no cervical adenopathy Resp - no labored breathing, no wheezing CV - regular rate, 2+ pulses Right port intact. SCF- no adenopathy Axilla -no adenopathy Breasts - Right breast:normal in appearance, no masses, skin changes or nipple discharge Left breast: well healed lumpectomy and axillary incision. Postradiation changes. No evidence of recurrence. Abdomen - liver and spleen not palpably enlarged Extremities - Good range of motion of shoulders, no lymphedema present IMAGING: I personally reviewed the following films: Mammogram: 08/22/2020 ([place], [place]) - left breast UOQ posterior depth with mass measures 2.8 x 2.1 cm, stable. Left breast ultrasound: 12/18/2020 ([place], [place]) - newly palpable left breast periareolar 9:00 irregular mass, measures 1.2 cm. BIRADs 4. Left breast US guided core biopsy - 12/23/2020 - invasive ductal carcinoma, intermediate grade ER positive (80%), IA weakly positive (1-5%), HER2 2+ equivocal (FISH [...] and 1.7 cm. Right breast - negative IMPRESSION /PLAN: 56 y.o. postmenopausal -[place] woman with palpable left breast invasive carcinoma, [...] and will continue annual mammography, per [place] [employer] guidelines. I ordered her right mammogram today. I will see her back in 6 months with a right diagnostic 3D mammogram. See me back as needed [...] data. Chayo Zepeda MD Breast Surgical Oncology [phone] cc: No referring provider defined for this encounter. RAL HOME MAKEUP ARTIST documented in this encounter Plan of Treatment Upcoming Encounters Date Type Department Care Team (Late st Contact Info) Description 02/12/2025 1:00 PM CDT Office Visit [facility] Oncology and Hematology [facility] [address] [facility] [address] [place] [address] Aaron Smith MD [address] [facility] [address] [place] [address] 03/29/2025 12:30 PM CDT Appointment [facility] [address] [address] [place] [address] [address] [place] [address] 03/29/2025 1:30 PM CDT Office Visit [facility] Breast Surgery [place] [address] [place] [address] [place] [address] [address] [facility] [address] [place] [address] documented as of this encounter Visit Diagnoses Diagnosis 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, estrogen receptor positive- Primary documented in this encounter Care Teams Fare Collector Relationship Specialty Start Date End Date Rosa Shi MD [address] [place] [phone] PCP - General Family Practice 01/15/21 documented as of this encounter
--- OUTSIDE RECORDS SUMMARY | 2024-10-23 02:17 | XMS_ITS | Encounter Summary ---
Author Organization [facility] [employer] [facility] Address [address] [place] [address] Care Team Providers Care Grants Assistant Name Role Phone Rosa Shi MD Primary Care Provider [phone] Reason for Visit * Reason Onset Date Comments lab orders 02/20/2022 Encounter Details Date Type Department Care Team (Late Contact Info) Description 02/20/2022 Telephone [facility] Oncology [facility] Hematology [facility] [address] [place] [address] Aarno Smith MD [address] [facility] [address] [place] [address] lab orders Social History Tobacco Use Types Packs/Day Years [...] Upcoming Encounters Date Type Department Care Team ([facility] Contact Info) Description 02/12/2025 1:00 PM CDT Office Visit [facility] Oncology and Hematology [address] [place] [address] Aaron Smith MD [address] [phone] 03/29/2025 12:30 PM CDT Appointment [facility] [address] [place] [phone] [place] [address] [facility] [address] [place] [address] 03/29/2025 1:30 PM CDT Office Visit [facility] Breast Surgery [address] [email or web address] [address] [place] [address] [place] [address] [address] [facility] [address] [place] [address] Scheduled Orders Name Type Priority Associated Diagnoses Orde r Schedule CBC WITH DIFFERENTIAL Lab Routine 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, estrogen receptor positive Hypokalemia Every Two Weeks for 99 Occurrences starting 02/20/2022 until 02/20/2023 COMPREHENSIVE METABOLIC PANEL Lab Routine 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, estrogen receptor positive Hypokalemia Every Two Weeks for 99 Occurrences starting 02/20/2022 until 02/20/2023 documented as of this encounter Visit Diagnoses Diagnosis 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, estrogen receptor positive- Primary Hypokalemia Hypopotassemia documented in this encounter Care Teams Grants Assistant Relationship Specialty Start Date End Date Rosa Shi MD [address] [place] [address] PCP - General Family Practice 01/15/21 documented as of this encounter
--- OUTSIDE RECORDS SUMMARY | 2024-10-23 02:17 | XMS_ITS | Encounter Summary ---
Author Organization [facility] TIMOTHYStretch [facility] Address [address] [place] [address] Care Team Providers Care Dye Can Operator Name Role Phone Rosa Shi MD Primary Care Provider [phone] Encounter Details Date Type Department Care Team (Late st Contact Info) Description 02/02/2022 Orders Only [facility] Oncology and Hematology - [place] 2227 [facility] 200 [place] [address] Aaron Smith MD 2227 [facility] [address] [place] [address] Malignant neoplasm of areola of [...] [place] Oncology and Hematology - [place] 2227 [facility] [address] [place] [address] Aaron Smith MD 2227 [facility] [address] [place] [address] 03/29/2025 12:30 PM CDT Appointment [facility] [address] [place] [address] [place] [address] [facility] 120 [place] [address] 03/29/2025 1:30 PM CDT Office Visit [facility] Breast Surgery [facility] [address] [facility] [address] [place] [address] [place] [address] [facility] 120 [place] [address] documented as of this encounter Visit Diagnoses Diagnosis 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, estrogen receptor positive documented in this encounter Care Teams Dye Can Operator Relationship Specialty Start Date End Date Rosa Shi MD [address]4 [place] [address] PCP - General Family Practice 01/15/21 documented as of this encounter
--- OUTSIDE RECORDS SUMMARY | 2024-10-23 02:17 | XMS_ITS | Encounter Summary ---
Author Organization [facility] Address [address] [place] [address] Care Team Providers Care Booth Operator Name Role Phone Rosa Shi MD Primary Care Provider [phone] Encounter Details Date Type Department Care Team (Late st Contact Info) Description 03/02/2022 Orders Only [facility] Oncology and Hematology - [place] Radha [address] 200 [place] [address] Aaron Smith MD 222 [facility] [address] [place] [address] Malignant neoplasm of areola of [...] [facility] Oncology and Hematology - [place] [address] [place] [address] aAron Smith MD [address] [address] 03/29/2025 12:30 PM CDT Appointment [facility] [address] [place] [address] [place] [address] [facility] 120 [place] [address] 03/29/2025 1:30 PM CDT Office Visit [facility] Breast Surgery [address] [address] [facility] [address] [place] [address] [place] [address] [facility] 120 [place] [address] documented as of this encounter Visit Diagnoses Diagnosis 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, estrogen receptor positive Hypokalemia Hypopotassemia documented in this encounter Care Teams Booth Operator Relationship Specialty Start Date End Date Rosa Shi MD [address] [place] [address] PCP - General Family Practice 01/15/21 documented as of this encounter
--- OUTSIDE RECORDS SUMMARY | 2024-10-23 02:17 | XMS_ITS | Encounter Summary ---
Author Organization [facility] TIMOTHYEntegrion [facility] Address [address] [place] [address] Care Team Providers Care Numerical Control Nesting Operator Name Role Phone Rosa Shi MD Primary Care Provider [phone] Encounter Details Date Type Department Care Team (Late st Contact Info) Description 09/29/2021 Orders Only [facility] Oncology and Hematology - [place] 2227 [facility] 200 [place] [address] Aaron Smith MD 2227 [facility] [address] [place] [address] Malignant neoplasm of areola of [...] have Coronavirus / COVID-19? 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 documented as of this encounter Plan of Treatment Upcoming Encounters Date Type Department Care Team (Late st Contact Info) Description 02/12/2025 1:00 PM CDT Office Visit [facility] Oncology and Hematology - [place] 2227 [facility] 200 [place] [address] Aaron Smith MD 2227 [facility] [address] [place] [address] 03/29/2025 12:30 PM CDT [facility]ment [facility] [address] [place] [address] [place] [address] [facility] 120 [place] [address] 03/29/2025 1:30 PM CDT Office Visit [facility] Breast [facility] [address] [facility] [address] [place] [address] [place] [address] [facility] 120 [place] [address] documented as of this encounter Visit Diagnoses Diagnosis 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, estrogen receptor positive documented in this encounter Care Teams Numerical Control Nesting Operator Relationship Specialty Start Date End Date Rosa Shi MD 2704 [place] [address] PCP - General Family Practice 01/15/21 documented as of this encounter
--- OUTSIDE RECORDS SUMMARY | 2024-10-23 02:17 | XMS_ITS | Encounter Summary ---
Author Organization [facility] Address [address] [place] [address] Care Team Providers Care Telecommunications Support Name Role Phone Rosa Shi MD Primary Care Provider [phone] Encounter Details Date Type Department Care Team (Late Contact Info) Description 11/10/2021 Orders Only [facility] Oncology and Hematology - [place] [address] 200 [place] [address] Jennifer Bernard Malignant neoplasm of [...] COVID-19? 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 documented as of this encounter Plan of Treatment Upcoming Encounters Date Type Department Care Team (Late st Contact Info) Description 02/12/2025 1:00 PM CDT Office Visit [facility] Oncology and Hematology - [place] [address] 200 [place] [address] Aaron Smith MD [address] [address] 03/29/2025 12:30 PM CDT Appointment [facility] [address] [place] [address] [place] [address] [facility] 120 [place] [address] 03/29/2025 1:30 PM CDT Office Visit [facility] Breast Surgery [address] [address] [facility] [address] [place] [address] [place] [address] [facility] 120 [place] [address] documented as of this encounter Visit Diagnoses Diagnosis 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, estrogen receptor positive documented in this encounter Care Teams Telecommunications Support Relationship Specialty Start Date End Date Rosa Shi MD [address]4 [place] [address] PCP - General Family Practice 01/15/21 documented as of this encounter
--- OUTSIDE RECORDS SUMMARY | 2024-10-23 02:17 | XMS_ITS | Encounter Summary ---
Author Organization [facility] Address [address] [facility] [address] Becerra: Epic Prelude ADT [place] [address] Care Team Providers Care Polish Maker Name Role Phone Rosa Shi MD Primary Care Provider [phone] Encounter Details Date Type Department Care Team (Latest Contact Info) Description 10/21/2021 Travel Social History Tobacco Use Types Packs/Day [...] COVID-19? No / Unsure 10/21/2021 1:08 PM CREDIT CARD CONTROL CLERK documented as of this encounter Plan of Treatment Upcoming Encounters Date Type Department Care Team (Late st Contact Info) Description 02/12/2025 1:00 PM CDT Office Visit [facility] Oncology and Hematology - [place] 2226 [facility] 200 [place] [address] Aaron Smith MD 2227 [facility] [address] [place] [address] 03/29/2025 12:30 PM CDT Appointment [facility] [address] [place] [address] [place] [address] [facility] [address] [place] [address] 03/29/2025 1:30 PM CDT Office [facility] Breast Surgery [address] [address] [facility] [address] [place] [address] [place] [address] [facility] [address] [place] [address] documented as of this encounter Visit Diagnoses Not on filedocumented in this encounter Care Teams Polish Maker Relationship Specialty Start Date End Date Rosa Shi MD [facility]4 [place] [address] PCP - General Family Practice 01/15/21 documented as of this encounter
--- OUTSIDE RECORDS SUMMARY | 2024-10-23 02:17 | XMS_ITS | Encounter Summary ---
Author Organization [facility] TIMOTHYModebo [facility] Address [address] [place] [address] Care Team Providers Care University Demonstrator Name Role Phone Rosa Shi MD Primary Care Provider [phone] Encounter Details Date Type Department Care Team (Late st Contact Info) Description 09/24/2021 Orders Only [facility] Oncology and Hematology - [place] 2227 [facility] 200 [place] [address] Aaron Smith MD 2227 [facility] [address] [place] [address] Malignant neoplasm of areola [...] COVID-19? No / Unsure 09/29/2021 10:31 AM OBGYN HOSPITALIST PHYSICIAN documented as of this encounter Plan of Treatment Upcoming Encounters Date Type Department Care Team (Late st Contact Info) Description 02/12/2025 1:00 PM CDT Office Visit [facility] Oncology and Hematology - [place] 2227 [facility] 200 [place] [address] Aaron Smith MD 0503 [facility] [address] [place] [address] 03/29/2025 12:30 PM CDT [facility]ment [facility] [address] [place] [address] [place] [address] [facility] 120 [place] [address] 03/29/2025 1:30 PM CDT Office Visit [facility] Breast [facility] [address] [facility] [address] [place] [address] [place] [address] [facility] [address] [place] [address] documented as of this encounter Procedures Procedure Name Priority Date/Time Associated Diagnosis Comments ECHO COMPLETE Stat 09/24/2021 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, estrogen receptor positive documented in this encounter Results * ECHO COMPLETE (09/24/2021) Aaron Smith MD US ORDERABLES documented in this encounter Visit Diagnoses Diagnosis 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, estrogen receptor positive documented in this encounter Care Teams University Demonstrator Relationship Specialty Start Date End Date Rosa Shi MD [address]4 [place] [address] PCP - General Family Practice 01/15/21 documented as of this encounter
--- OUTSIDE RECORDS SUMMARY | 2024-10-23 02:17 | XMS_ITS | Encounter Summary ---
Author Organization [facility] [employer] [facility] Address [address] [place] [address] Care Team Providers Care Tech Brazer Tester Name Role Phone Rosa Shi MD Primary Care Provider [phone] Reason for Visit * Reason Comments Follow Up fu w tx and labs Encounter Details Date Type Department Care Team (Late st Contact Info) Description 09/29/2021 10:45 AM HOPPER OPERATOR Office Visit [facility] Oncology and Hematology - [place] [address] [place] [address] [facility] 200 [place] [address] Aaron Smith MD 2227 [facility] [address] [place] [address] Malignant neoplasm of areola of [...] COVID-19? No / Unsure 09/29/2021 10:31 AM HOPPER OPERATOR documented as of this encounter Last Filed Vital Signs Vital Sign Reading Time Taken Comments Blood Pressure 144/84 09/29/2021 11:03 AM HOPPER OPERATOR Pulse 81 09/29/2021 11:03 AM HOPPER OPERATOR Temperature 36.6 ??C (97.9 ??F) 09/29/2021 11:[address] Respiratory Rate - - Oxygen Saturation 96% 09/29/2021 11:03 AM HOPPER OPERATOR Inhaled Oxygen Concentration - - Weight 96.4 kg (212 lb 8 oz) 09/29/2021 11:03 AM HOPPER OPERATOR Height 157.5 cm (5' 2 ) 09/29/2021 11:03 AM HOPPER OPERATOR Body Mass Index 38.87 09/29/2021 11:03 AM HOPPER OPERATOR documented in this encounter Progress Notes * Aaron Smith MD - 09/29/2021 11:33 AM CST HEMATOLOGY / ONCOLOGY PROGRESS NOTE Patient Identification: Name: Rosa Babb Age: 56 y.o. Sex: female : 1965 DIAGNOSIS T2 N1 M0 stage IIB invasive mammary carcinoma status post left breast 9:00 needle biopsy done on January 14, 2021. ER strongly positive, [place] weakly positive and HER-2/dez positive. Ultrasound-guided biopsy [...] into the office for follow-up visit and to start maintenance Herceptin treatment. She is recovering well from the surgery. Denies any bleeding and bruising. Weight and appetite stable. No other new complaint. 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 Inferior margin less than 1 mm. Additional margins clear. Patient has completed cycle 6/6 of chemotherapy with TCH Perjeta on 05/28/2021. Patient completed radiation therapy treatment on September 22, 2021. There is no evidence of relapse of disease on examination. She will start maintenance Herceptin on September 29, 2021 along with Arimidex 1 mg daily. I have discussed the side effects of Herceptin and Arimidex in detail. I plan to see her back in 3 weeks. Chemotherapy-induced anemia. Continue oral iron. Hemoglobin normal today. TOBACCO COUNSELING She is not a tobacco user. . 09/29/2021 Aaron Smith MD ER OPERATOR documented in this encounter Plan of Treatment Upcoming Encounters Date Type Department Care Team (Late st Contact Info) Description 02/12/2025 1:00 PM CDT Office Visit [facility] Oncology and Hematology - [place] 2227 [facility] 200 [place] [address] Aaron Smith MD 2227 [facility] [address] [place] [address] 03/29/2025 12:30 PM CDT Appointment [facility] [place] [address] [place] [address] [place] [address] [facility] 120 [place] [address] 03/29/2025 1:30 PM CDT Office Visit [facility] Breast Surgery [place] [address] [facility] [address] [place] [address] [place] [address] [facility] 120 [place] [address] Scheduled Orders Name Type Priority Associated Diagnoses Orde r Schedule COMPREHENSIVE METABOLIC PANEL Lab Stat 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, estrogen receptor positive Expected: 10/20/2021, Expires: 09/29/2022 CBC WITH DIFFERENTIAL Lab Stat 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, estrogen receptor positive Expected: 10/20/2021, Expires: 09/29/2022 documented as of this encounter Visit Diagnoses Diagnosis 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, estrogen receptor positive- Primary documented in this encounter Care Teams Tech Brazer Tester Relationship Specialty Start Date End Date Rosa Shi MD [address] [place] [address] PCP - General Family Practice 01/15/21 documented as of this encounter
--- OUTSIDE RECORDS SUMMARY | 2024-10-23 02:17 | XMS_ITS | Encounter Summary ---
Author Organization [facility] MELISS[employer]lever[employer] [facility] Address [address] [place] [address] Care Team Providers Care Upper Tier Name Role Phone Rosa Shi MD Primary Care Provider [phone] Reason for Visit * Reason Onset Date Comments Medication Refill 10/20/2021 Encounter Details Date Type Department Care Team (Late st Contact Info) Description 10/20/2021 Refill [facility] Oncology and Hematology - [place] [address] [place] [address] Jose Antonio Montez MD [address] [place] [address] 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, estrogen receptor positive (Primary Dx); Hypokalemia; Chemotherapy-induced neutropenia Social History Tobacco Use Types Packs/Day Years [...] COVID-19? No / Unsure 10/20/2021 11:31 AM COUNSELING CASE MANAGER documented as of this encounter Plan of Treatment Upcoming Encounters Date Type Department Care Team (Late st Contact Info) Description 02/12/2025 1:00 PM CDT Office Visit [facility] Oncology and Hematology - [place] 2227 [facility] 200 [place] [address] Aaron Smith MD 2227 [facility] [address] [place] [address] 03/29/2025 12:30 PM CDT Appointment [facility] [address] [address] [place] [address] [place] [address] [facility] 120 [place] [address] 03/29/2025 1:30 PM CDT Office [facility] Breast Surgery [address] [place] [address] [facility] [address] [place] [address] [place] [address] [facility] 120 [place] [address] documented as of this encounter Visit Diagnoses Diagnosis 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, estrogen receptor positive- Primary Hypokalemia Hypopotassemia Chemotherapy-induced neutropenia Drug induced neutropenia documented in this encounter Care Teams Upper Tier Relationship Specialty Start Date End Date Rosa Shi MD [address] [place] [address] PCP - General Family Practice 01/15/21 documented as of this encounter
--- OUTSIDE RECORDS SUMMARY | 2024-10-23 02:17 | XMS_ITS | Encounter Summary ---
Author Organization [facility]IS[facility] Address [address] [place] [address] Care Team Providers Care Weasand Trimmer Name Role Phone Rosa Shi MD Primary Care Provider [phone] Reason for Referral * Radiology Services (Urgent) - Closed Specialty Diagnoses / Procedures Referred By Contac t Referred To Contact Diagnoses 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, estrogen receptor positive Procedures ECHO COMPLETE Aaron Smith MD [address] [place] [address] [place] [address] Referral ID Status Reason Start Date Expiration Date V isits Requested Visits Authorized [id number] Closed [facility] CTS 08/21/2021 09/21/2022 1 1 Reason for Visit * Reason Comments Follow Up 6wk with labs Encounter Details Date Type Department Care Team (Late st Contact Info) Description 08/21/2021 11:30 AM CDT Office Visit [facility] Oncology and Hematology [place] [address] [facility] [address] [place] [address] Aaron Smith MD [address] [place] [address] Malignant neoplasm of areola of [...] Sign Reading Time Taken Comments Blood Pressure 154/74 08/21/2021 11:14 AM CDT Pulse 84 08/21/2021 11:14 AM CDT Temperature 36.4 ??C (97.6 ??F) 08/21/2021 11:14 AM C DT Respiratory Rate - - Oxygen Saturation 97% 08/21/2021 11:14 AM CDT Inhaled Oxygen Concentration - - Weight 96.7 kg (213 lb 1.6 oz) 08/21/2021 11:14 AM CDT Height 157.5 cm (5' 2 ) 08/21/2021 11:14 AM CDT Body Mass Index 38.98 08/21/2021 11:14 AM CDT documented in this encounter Progress Notes * Aaron Smith MD - 08/21/2021 1:03 PM CDT HEMATOLOGY / ONCOLOGY PROGRESS NOTE Patient Identification: Name: Rosa Babb Age: 55 y.o. Sex: female : 1965 DIAGNOSIS T2 N1 M0 stage IIB invasive mammary carcinoma status post left breast 9:00 needle biopsy done on January 14, 2021. ER strongly positive, [place] weakly positive and HER-2/dez positive. Ultrasound-guided biopsy of satellite nodule 8 mm came back positive for invasive ductal carcinoma and biopsy of one of the nodule 4 mm also came back positive for invasive ductal carcinoma on January 23, 2021. CURRENT TREATMENT Radiation therapy TREATMENT HISTORY Breast MRI: 01/14/21 Left breast [...] of chemotherapy with TCH Perjeta on 05/28/2021. SUBJECTIVE Patient came into the office for follow-up visit. She has been tolerating radiation therapy treatment well. Denies any bleeding and bruising. Weight and [...] 4.3 hemoglobin 13 platelet 249,000 creatinine 0.9 Assessment: Plan: Patient Active Problem [...] DCIS high-grade and 0/6 sentinel lymph node ER/[place] positive and HER- 2/dez positive status post left-sided lumpectomy and left axillary lymph node biopsy done on 06/25/2021. Inferior margin less than 1 mm. Additional margins clear. Patient has completed cycle 6/6 of chemotherapy with TCH Perjeta on 05/28/2021. Patient is started radiation therapy treatment about 2 weeks ago and tolerating it well. I will order echocardiogram in 4 weeks and will start maintenance Herceptin in 5 weeks. She will also start Arimidex after completion of radiation therapy treatment. Chemotherapy-induced anemia. Hemoglobin now became normal. She is taking oral iron once a day. TOBACCO COUNSELING She is not a tobacco user. . 08/21/2021 Aaron Smith MD documented in this encounter Plan of Treatment Upcoming Encounters Date Type Department Care Team (Late st Contact Info) Description 02/12/2025 1:00 PM CDT Office Visit [facility] Oncology and Hematology [facility] 2227 [facility] 200 [place] [address] Aaron Smith MD 2226 [facility] [address] [place] [address] 03/29/2025 12:30 PM CDT Appointment [facility] [address] [place] [address] [place] [address] [address] 03/29/2025 1:30 PM CDT Office Visit [facility] Breast Surgery [address] [address] [facility] [address] [place] [address] [place] [address] [facility] 120 [place] [address] Scheduled Orders Name Type Priority Associated Diagnoses Orde r Schedule BASIC METABOLIC PANEL Lab Stat 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, estrogen receptor positive Expected: 09/28/2021, Expires: 08/21/2022 CBC WITH DIFFERENTIAL Lab Stat 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, estrogen receptor positive Expected: 09/28/2021, Expires: 08/21/2022 documented as of this encounter Results * ECHO COMPLETE (09/24/2021) Aaron Smith MD ORDERABLES documented in this encounter Visit Diagnoses Diagnosis 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, estrogen receptor positive- Primary documented in this encounter Care Teams Weasand Trimmer Relationship Specialty Start Date End Date Rosa Shi MD [address] [place] [address] PCP - General Family Practice 01/15/21 documented as of this encounter
--- OUTSIDE RECORDS SUMMARY | 2024-10-23 02:17 | XMS_ITS | Encounter Summary ---
Author Organization [facility] Address [address] [place] [address] Care Team Providers Care Film Waxer Name Role Phone Rosa Shi MD Primary Care Provider [phone] Encounter Details Date Type Department Care Team (Late st Contact Info) Description 11/03/2021 Orders Only [facility] Oncology and Hematology - [place] [address] [facility] [address] [place] [address] Aaron Smith MD [address] [facility] [address] [place] [address] Malignant neoplasm of areola of [...] COVID-19? No / Unsure 10/21/2021 1:08 PM HELIUM ARC WELDER documented as of this encounter Plan of Treatment Upcoming Encounters Date Type Department Care Team (Late st Contact Info) Description 02/12/2025 1:00 PM CDT Office Visit [facility] Oncology and Hematology - [place] [address] [facility] [address] [place] [address] Aaron Smith MD [address] [facility] [address] [place] [address] 03/29/2025 12:30 PM CDT Appointment [facility] [address] [place] [address] [place] [address] [facility] [address] [place] [address] 03/29/2025 1:30 PM CDT Office Visit [facility] Breast Surgery [facility] [address] [facility] [address] [place] [address] [place] [address] [facility] [address] [place] [address] documented as of this encounter Visit Diagnoses Diagnosis 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, estrogen receptor positive documented in this encounter Care Teams Film Waxer Relationship Specialty Start Date End Date Rosa Shi MD [address] [place] [phone] PCP - General Family Practice 01/15/21 documented as of this encounter
--- OUTSIDE RECORDS SUMMARY | 2024-10-23 02:17 | XMS_ITS | Encounter Summary ---
Author Organization [facility] Address [address] [place] [address] Care Team Providers Care Engraver Flatware Name Role Phone Rosa Shi MD Primary Care Provider [phone] Encounter Details Date Type Department Care Team (Late st Contact Info) Description 11/24/2021 Orders Only [facility] Oncology and Hematology - [place] 2227 [facility] [address] [place] [address] Aaron Smith MD [address] [facility] [address] [place] [address] Malignant neoplasm of areola of [...] COVID-19? 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 documented as of this encounter Plan of Treatment Upcoming Encounters Date Type Department Care Team (Late st Contact Info) Description 02/12/2025 1:00 PM CDT Office Visit [facility] Oncology and Hematology - [place] [address]227 [facility] [address] [place] [address] Aaron Smith MD [address] [facility] [address] [place] [address] 03/29/2025 12:30 PM CDT [facility] [address] [place] [address] [place] [address] [facility] [address] [place] [address] 03/29/2025 1:30 PM CDT Office Visit [facility] Breast Surgery [facility] [address] [facility] [address] [place] [address] [place] [address] [facility] [address] [place] [address] documented as of this encounter Visit Diagnoses Diagnosis 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, estrogen receptor positive documented in this encounter Care Teams Engraver Flatware Relationship Specialty Start Date End Date Rosa Shi MD [address] [place] [phone] PCP - General Family Practice 01/15/21 documented as of this encounter
--- OUTSIDE RECORDS SUMMARY | 2024-10-23 02:17 | XMS_ITS | Encounter Summary ---
Author Organization [facility] Address [address] [place] [address] Care Team Providers Care Field Project Manager Name Role Phone Rosa Shi MD Primary Care Provider [phone] Encounter Details Date Type Department Care Team (Late st Contact Info) Description 08/04/2021 1:00 PM CDT - 08/04/2021 11:59 PM CDT Hospital Encounter [facility] [address] [place] [address] [place] [address] [facility] [address] [place] [address] Emilia Dang, Physical Therapist Discharge Disposition: Home or Self Care Social [...] have Coronavirus / COVID-19? No / Unsure 07/17/2021 9:49 AM CDT documented as of this encounter [...] of this encounter Miscellaneous Notes * Therapy Evaluation - Emilia Dang, Physical Therapist - 08/04/2021 1:00 PM CDT [facility] PHYSICAL THERAPY / LYMPHEDEMA EVALUATION HISTORY Date of Service: 08/04/2021 Demographics Patient Name: Rosa Babb Date of : 1965 Age: 55 y.o. Referring Physician: Duane Diagnosis: breast cancer Rehab Diagnosis: lymphedema risk, post-op L lumpectomy and ALND Medical History Manual Lymphatic Drainage Precautions x Diabetes Renal Dysfunction Vascular Problems/HD Cardiac Edema x Hypertension Malignant Disease Arrhythmia Acute Disease Hyperthyroidism Acute Infection Hypothyroidism Pacemaker Other: Abdominal Precautions /Menstrual sensitivity Liver Disease/Portal HTN Recent Abdominal Surgery Abdominal Pain Intestinal Disorders AAA Other: Allergies: No Known Allergies Subjective: Fatigue: 6/10. 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 Wants to be proactive about her rehab from cancer treatments. Starting radiation tomorrow. Surgery 06/25/21 lumpectomy L and 0+/10 lymph nodes Chemotherapy: Neoadjuvant Infusion port for chemotherapy: yes on the Right side. Radiation: starting tomorrow 08/05/21 Patient has had no history of infections. Social History The patient does not live alone. There is family support/caregiver. 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 The patient's current diet is a General Diet. Fall Risk: no Abuse Risk: no Suicide Risk: No intention or plan. Barriers to Communication or Education: no Zoroastrian, Traditional or Cultural Practices Which May Impact Care: no Pain Pain is located 0/10 but describes this as dull and numb, and occurs continuously of the L breast. Patient has sleep disturbances. States this is normal for her to wake up in the night and takes awhile to go back to sleep. Patient-stated functional limitations secondary to post-op, mildly, include reaching, lifting, dressing. Patient goals are as follows: Be proactive about lymphedema CLINICAL OBJECTIVE FINDINGS Observations/Palpations Stage: II Location: L breast Edema: Moderate Pittin+ Skin Color: normal Temperature: normal Sensation: Numbness over scar areas, L axilla and breast Lymphorea: no Fibrosis: mild Axillary cording: no Wounds: no Incisional Scars: Yes, superior to the nipple of L breast and L axilla - fully closed Scar Tissue Density: Moderate, pt only approx 5 week post-op Note: peau d'orange appearance of L breast Functional Mobility Patient transferred with independence. Patient's gait assessment is as follows: without assistive device. Patient ADLs performed with independence. Patient is not a fall risk. Volume Volume: Circumferential Measurements reveal a 0.3% difference between the upper extremities, with the R dominant arm larger than the L at-risk arm. Refer to scanned Lymphedema Measurement Chart. Range of Motion Shoulder: active Flexion: R= 160 deg L= 153 deg Extension: WNL B Abduction: R=170 deg L= 168 deg External Rotation: WNL B Internal Rotation: WNL B Yergason's Test Right: negative Left: negative Shoulder Impingement Sign Right: negative Left: negative Strength Strength assessment as follows: proximal weakness was noted symmetrically at 4+/5 level, otherwise normal in seated MMT of UEs Etiology Lymphedema is secondary. Secondary to surgery. However pt is only approx 5 weeks post-op. Onset: Surgery was 06/25/21 Today's Treatment Lymphedema precautions/risks with handouts provided, Compression options discussed recommending none at this time however we did discuss pt under close monitoring for lymphedema risk during radiationand the possibility of need for compression sleeve and hand piece., Home Exercise Program initiatedconsisting of self MLD deep system- handout given with lake performed today. Patient was instructed in plans for lymphedema management and precautions and handouts were provided. Instructed patient on risk reduction practices for lymphedema. Assessment Therapy plan of care will address the following: L breast stage 2 lymphedema including peau d'orange, reduced active ROM of shoulders mildly, scar tissue adherence, cancer-related fatigue. She will benefit from therapy to address this problem list, to reduce the congestion of the lymphatics, to learn home management tools for lymphedema, to be fitted for the appropriate compression garments, and to overall improve quality of life to return to her prior level of function before breastcancer treatments. Upcoming therapy plan will be with consideration to radiation therapy and skin precautions that go along with this. Current Impairment: 0% based on the clinical findings from [facility]. Patient will require skilled intervention to address listed impairments. Short Term Goals (Time frame: 4-6 weeks) include the followin) Patient and/or Caregiver will be independent with lymphedema precautions and skin care techniques 2) Patient and/or Caregiver will be independent with self-manual lymph drainage of deep system. 3) Patient will be fitted with the appropriate compression garment for the affected extremity and demonstrate independence in don/doffing and wearing schedule.- as needed 4) Shoulder range achieved to comfortably participate in radiation. Senior Living Goals (Time frame: 7-12 weeks) include the followin) Decongestion of breast edema by visible reduction of peau d'orange appearance. 2) Patient will be independent with a home exercise program for shoulder mobility 3) Patient and/or caregiver will be independent in self-MLD extended sequence. 4) pt will participate in aerobic exercise 30 min, 3x/week to combat CRF Rehab potential is Good. Plan of Care Patient will be seen for a frequency of 1-2 times per week for 8-12 weeks with skilled interventionto include Manual Lymphatic Drainage, Therapeutic Exercise, Skin/Wound Care, Education, Low-Level Laser Therapy, Self Care/ADL, Myofascial release, Scar Tissue Mobilization, compression garments, as needed. The patient has been informed of and agrees to the treatment plan and goals. Time in: 1:35 Time out: 2:23 Total Treatment Time: 48 min Total Timed Treatment: 30 min eval, 18 min self care Emilia Dang, Physical Therapist, DPT, CLT-WHIT [id number] I certify this patient is under my care and the above plan of care as appropriate and medically necessary for the treatment of the diagnosed condition. documented in this encounter Plan of Treatment Upcoming Encounters Date Type Department Care Team (Late st Contact Info) Description 02/12/2025 1:00 PM CDT Office Visit [facility] Oncology and Hematology [facility] [address] [facility] [address] [place] [phone] Aaron Smith MD [address] [facility] [address] [place] [address] 03/29/2025 12:30 PM CDT Appointment [facility] [address] [place] [address] [place] [address] [facility] [address] [place] [address] 03/29/2025 1:30 PM CDT Office Visit [facility] Breast Surgery [address] [address] [facility] [address] [place] [address] [place] [address] [facility] [address] [place] [address] documented as of this encounter Visit Diagnoses Not on filedocumented in this encounter Care Teams Field Project Manager Relationship Specialty [place] [address] [place] [address] PCP - General Family Practice 01/15/21 documented as of this encounter
--- OUTSIDE RECORDS SUMMARY | 2024-10-23 02:17 | XMS_ITS | Encounter Summary ---
Author Organization [facility] Address [address] [place] [address] Care Team Providers Care Python Engineer Name Role Phone Rosa Shi MD Primary Care Provider [phone] Reason for Visit * Reason Comments Nurse Navigation Encounter Details Date Type Department Care Team (Late st Contact Info) Description 10/01/2021 Chart Note [facility] Oncology Patient Navigation [address] [place] [address] Sonia Herrera, SRINIVASAN Nurse Navigation Social History [...] COVID-19? No / Unsure 09/29/2021 10:31 AM ACCOUNTING MACHINE SERVICER documented as of this encounter Progress Notes * Sonia Herrera RN - 10/01/2021 1:13 PM CST Navigation Assessment Note Spoke to patient following completion of radiation to check on well-being. Pt reports all went well aside from mild skin changes and fatigue. Pt states she began Herceptin infusions on 09/29 and will continue into April. Pt also states she started Arimidex. Emailed information on side effect management of endocrine therapy. Pt denies further needs at this time. Pt has contact info for this RN and will reach out with any non-emergent needs. This RN to follow up. Alyce Herrera, RN, Nurse Navigator UNTING MACHINE SERVICER documented in this encounter Plan of Treatment Upcoming Encounters Date Type Department Care Team ([facility] st Contact Info) Description 02/12/2025 1:00 PM CDT Office Visit [facility] Oncology and Hematology [facility] [address] [facility] [address] [place] [phone] Aaron Smith MD 2227 [facility] [address] [place] [address] 03/29/2025 12:30 PM CDT Appointment [facility] [address] [place] [address] [place] [address] [address] 03/29/2025 1:30 PM CDT Office Visit [facility] Breast Surgery [facility] [address] [facility] [address] [place] [address] [place] [address] [facility] [address] [place] [address] documented as of this encounter Visit Diagnoses Not on filedocumented in this encounter Care Teams Python Engineer Relationship Specialty Start Date End Date Rosa Shi MD [address] [place] [phone] PCP - General Family Practice 01/15/21 documented as of this encounter
--- OUTSIDE RECORDS SUMMARY | 2024-10-23 02:17 | XMS_ITS | Encounter Summary ---
Author Organization [facility] Address [address] [place] [address] Care Team Providers Care Production Drilling Machine Operator Name Role Phone Rosa Shi MD Primary Care Provider [phone] Encounter Details Date Type Department Care Team ([facility] Contact Info) Description 11/17/2021 Orders Only [facility] Oncology and Hematology - [place] [address] [facility] [address] [place] [address] Aaron Smith MD [address] [facility] [address] [place] [address] Malignant neoplasm of areola of [...] COVID-19? No / Unsure 11/10/2021 8:53 AM TECHNICIAN BIOLOGICAL HEALTH documented as of this encounter Plan of Treatment Upcoming Encounters Date Type Department Care Team ([facility] Contact Info) Description 02/12/2025 1:00 PM CDT Office Visit [facility] Oncology and Hematology - [place] 2[address] [facility] [address] [place] [address] Aaron Smith MD [address] [facility] [address] [place] [address] 03/29/2025 12:30 PM CDT Appointment [facility] [place] [address] [place] [address] [place] [address] [facility] [address] [place] [address] 03/29/2025 1:30 PM CDT Office Visit [facility] Breast Surgery [place] [address] [facility] [address] [place] [address] [place] [address] [facility] [address] [place] [address] documented as of this encounter Visit Diagnoses Diagnosis 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, estrogen receptor positive Hypokalemia Hypopotassemia documented in this encounter Care Teams Production Drilling Machine Operator Relationship Specialty Start Date End Date Rosa Shi MD [address] [place] [phone] PCP - General Family Practice 01/15/21 documented as of this encounter
--- OUTSIDE RECORDS SUMMARY | 2024-10-23 02:17 | XMS_ITS | Encounter Summary ---
Author Organization [facility] [employer] [facility] Address [address] [place] [address] Care Team Providers Care Line Installation Supervisor Name Role Phone Rosa Shi MD Primary Care Provider [phone] Encounter Details Date Type Department Care Team (Late Contact Info) Description 01/26/2022 Orders Only [facility] Oncology and Hematology - [place] 2227 [facility] [address] [place] [address] Aaron Smith MD [address] [facility] [address] [place] [address] Malignant neoplasm of areola of [...] [place] On[facility] - [place] 2[address] [facility] 200 [place] [address] Aaron Smith MD [address] [facility] [address] [place] [address] 03/29/2025 12:[address] [facility] [place] [address] [place] [address] [place] [address] [facility] [address] [place] [address] 03/29/2025 1:30 PM CDT Office Visit [facility] Breast Surgery [place] [address] [facility] [address] [place] [address] [place] [address] [facility] [address] [place] [address] documented as of this encounter Visit Diagnoses Diagnosis 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, estrogen receptor positive Hypokalemia Hypopotassemia documented in this encounter Care Teams Line Installation Supervisor Relationship Specialty Start Date End Date Rosa Shi MD [address] [place] [phone] PCP - General Family Practice 01/15/21 documented as of this encounter
--- OUTSIDE RECORDS SUMMARY | 2024-10-23 02:17 | XMS_ITS | Encounter Summary ---
Author Organization [facility] [employer] [facility] Address [address] [place] [address] Care Team Providers Care Parking Analyst Name Role Phone Rosa Shi MD Primary Care Provider [phone] Reason for Visit * Reason Comments Chemotherapy 3 week F/U with Tx Encounter Details Date Type Department Care Team (Late st Contact Info) Description 10/20/2021 11:30 AM KNITTING TESTER Office Visit [facility] Oncology and Hematology - [place] [address] [place] [address] Jose Antonio Montez MD [address] [place] [address] Malignant neoplasm of areola of [...] COVID-19? No / Unsure 10/20/2021 11:31 AM KNITTING TESTER documented as of this encounter Last Filed Vital Signs Vital Sign Reading Time Taken Comments Blood Pressure 138/82 10/20/2021 11:39 AM KNITTING TESTER Pulse 82 10/20/2021 11:39 AM KNITTING TESTER Temperature 36.7 ??C (98 ??F) 10/20/2021 11: 39 AM KNITTING TESTER Respiratory Rate - - Oxygen Saturation 97% 10/20/2021 11: 39 AM KNITTING TESTER Inhaled Oxygen Concentration - - Weight 98.7 kg (217 lb 11.2 oz) 021 11:39 AM KNITTING TESTER Height 157.5 cm (5' 2 ) 10/20/2021 11:3 9 AM KNITTING TESTER Body Mass Index 39.82 10/20/2021 11:39 AM KNITTING TESTER documented in this encounter Progress Notes * Jose Antonio Montez MD - 10/20/2021 1:41 PM CST HEMATOLOGY / ONCOLOGY PROGRESS NOTE Patient Identification: Name: Rosa Babb Age: 56 y.o. Sex: female : 1965 DIAGNOSIS T2 N1 M0 stage IIB invasive mammary carcinoma status post left breast 9:00 needle biopsy done on January 14, 2021. ER strongly positive, ME weakly positive and HER-2/dez positive. ?? Ultrasound-guided biopsy of satellite nodule 8 mm came back positive for invasive ductal carcinoma and biopsy of one of the nodule 4 mm also came back positive for invasive ductal carcinoma on January 23, 2021. ?? CURRENT TREATMENT ?? Maintenance Herceptin started September 29, 2021 Arimidex started September 29, 2021. TREATMENT HISTORY Breast MRI: 01/14/21 Left breast - irregular enhancing mass anterior medial at 3:00 with biopsy clip, measures 2.5 cm x 2.1 x 1.5 cm (located 1.6 cm from nipple and 1 mm from dermis) ?- 2 additional satellite lesions posterior to main mass - 8 mm and 5 mm - spans 6.3 cm in total ?- [address] in UOQ axillary tail of breast - measures 2.5 cm and 1.7 cm. ?? Right breast - negative ?? Patient had left breast lumpectomy and left axillary sentinel lymph node biopsy done on 06/25/2021 ?? Patient has completed cycle 6/6 of chemotherapy with TCH Perjeta on 05/28/2021. ?? Radiation therapy completed on September 22, 2021 SUBJECTIVE Patient has been doing well with only minimal side effects from the Arimidex notes some hip pain which responds to Tylenol she is tolerating the Herceptin without difficulty is doing well Review of system Constitutional: denies fevers, sweats, fatigue, malaise, weight loss HEENT: denies sinus congestion, hearing or vision problems Respiratory: denies cough, dyspnea, wheeze Cardiovascular: denies chest pain, exertional chest pressure/discomfort, nausea, syncope, shortnessof breath GI: denies constipation, diarrhea, dsyphagia, reflux symptoms, vomiting, melena : denies dysuria, frequency, incontinence, urgency Integumentary system: no lymphadenopathy, sweats, flushing Musculoskeletal: denies: myalgia, arthralgia Neurological: denies blurry or disturbed vision, numbness/weakness, dizziness Skin: No lumps, bumps or rashes. Objective: Vital signs in last 24 hours: [...] No lymphadenopathy Neuro: No obvious focal deficit PATH LABS White count is 4.9 thousand hemoglobin 11.4 bili down to 1 35,000 remainder of labs within normal range Assessment: Plan: Patient Active Problem List Diagnosis [...] no evidence on 11/2012 repeat vulvar biopsy ?? T1 N0 M0 stage I invasive ductal carcinoma of the left breast 1 cm size, high- grade with DCIS high-grade and 0/6 sentinel lymph node ER/ME positive and HER- 2/dez positive status post left-sided lumpectomy and left axillary lymph node biopsy done on 06/25/2021. Inferior margin less than 1 mm. Additional margins clear. ?? Patient has completed cycle 6/6 of chemotherapy with TCH Perjeta on 05/28/2021. ?? Patient completed radiation therapy treatment on September 22, 2021. ?? There is no evidence of relapse of disease on examination. She will start maintenance Herceptin on September 29, 2021 along with Arimidex 1 mg daily. I have discussed the side effects of Herceptin and Arimidex in detail. I plan to see her back in 3 weeks. ?? Chemotherapy-induced anemia. Continue oral iron. Hemoglobin normal today. ? TOBACCO COUNSELING She is not a tobacco user. 10/20/2021 This note was transcribed using bettermarks speaking computerized voice recognition without a human manager channel. This report may or may not have been adjusted for typographical, grammaticaland syntax errors. Jose Antonio Montez MD TING TESTER documented in this encounter Plan of Treatment Upcoming Encounters Date Type Department Care Team (Late st Contact Info) Description 02/12/2025 1:00 PM CDT Office Visit [facility] Oncology and Hematology - [place] [address] [facility] [address] [place] [address] Aaron Smith MD [address] [facility] [address] [place] [address] 03/29/2025 12:30 PM CDT Appointment [facility] [place] [address] [place] [address] [place] [address] [facility] [address] [place] [address] 03/29/2025 1:30 PM CDT Office Visit [facility] Breast Surgery [place] [address] [facility] [address] [place] [address] [place] [address] [facility] [address] [place] [address] documented as of this encounter Visit Diagnoses Diagnosis 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, estrogen receptor positive- Primary documented in this encounter Care Teams Parking Analyst Relationship Specialty Start Date End Date Rosa Shi MD [address] [place] [address] PCP - General Family Practice 01/15/21 documented as of this encounter
--- OUTSIDE RECORDS SUMMARY | 2024-10-23 02:17 | XMS_ITS | Encounter Summary ---
Author Organization [facility] Address [address] [facility] [address] Becerra: Epic Prelude ADT [place] [address] Care Team Providers Care Game Warden Name Role Phone Rosa Shi MD Primary Care Provider [phone] Encounter Details Date Type Department Care Team (Latest Contact Info) Description 01/12/2022 Travel Social History Tobacco Use Types Packs/Day [...] Center Oncology and Hematology - [place] [address] [place] [address] Aaron Smith MD [address] [facility] [address] [place] [address] 03/29/2025 12:30 PM CDT Appointment [facility] [place] [address] [place] [address] [place] [address] [facility] [address] [place] [address] 03/29/2025 1:30 PM CDT Office [facility] Breast Surgery [place] [address] [facility] [address] [place] [address] [place] [address] [facility] [address] [place] [address] documented as of this encounter Visit Diagnoses Not on filedocumented in this encounter Care Teams Game Warden Relationship Specialty Start Date End Date Rosa Shi MD [address] [place] [address] PCP - General Family Practice 01/15/21 documented as of this encounter
--- OUTSIDE RECORDS SUMMARY | 2024-10-23 02:17 | XMS_ITS | Encounter Summary ---
Author Organization [facility] [employer] [facility] Address [address] [place] [address] Care Team Providers Care Household Coordinator Name Role Phone Rosa Shi MD Primary Care Provider [phone] Encounter Details Date Type Department Care Team (Late st Contact Info) Description 03/09/2022 Orders Only [facility] Oncology and Hematology - [place] [address] [place] [address] Aaron Smith MD [address] [facility] [address] [place] [address] Malignant neoplasm of areola of [...] and Hematology - [place] [address] [place] [address] Aaron Smith MD [address] [address] 03/29/2025 12:30 PM CDT Appointment [facility] [place] [address] [place] [address] [place] [address] [facility] [address] [place] [address] 03/29/2025 1:30 PM CDT Office Visit [facility] Breast Surgery [place] [address] [facility] [address] [place] [address] [place] [address] [facility] [address] [place] [address] documented as of this encounter Visit Diagnoses Diagnosis 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, estrogen receptor positive Hypokalemia Hypopotassemia documented in this encounter Care Teams Household Coordinator Relationship Specialty Start Date End Date Rosa Shi MD [address] [place] [address] PCP - General Family Practice 01/15/21 documented as of this encounter
--- OUTSIDE RECORDS SUMMARY | 2024-10-23 02:17 | XMS_ITS | Encounter Summary ---
Author Organization [facility] [employer] [facility] Address [address] [place] [address] Care Team Providers Care Printing Plate Maker Name Role Phone Rosa Shi MD Primary Care Provider [phone] Encounter Details Date Type Department Care Team (Late Contact Info) Description 02/09/2022 Orders Only [facility] Oncology and Hematology - [place] [address] [facility] [address] [place] [address] Aaron Smith MD [address] [facility] [address] [place] [address] Malignant [...] 02/12/2025 1:00 PM CDT Office Visit [facility] Oncology and Hematology - [place] [address] [facility] [address] [place] [address] Aaron Smith MD [address] [facility] [address] [place] [address] 03/29/2025 12:30 PM CDT Appointment [facility] [place] [address] [place] [address] [place] [address] [facility] [address] [place] [address] 03/29/2025 1:30 PM CDT Office Visit [facility] Breast Surgery [place] [address] [facility] [address] [place] [address] [place] [address] [facility] [address] [place] [address] documented as of this encounter Visit Diagnoses Diagnosis 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, estrogen receptor positive Hypokalemia Hypopotassemia documented in this encounter Care Teams Printing Plate Maker Relationship Specialty Start Date End Date Rosa Shi MD [address] [place] [address] PCP - General Family Practice 01/15/21 documented as of this encounter
--- OUTSIDE RECORDS SUMMARY | 2024-10-23 02:17 | XMS_ITS | Encounter Summary ---
Author Organization [facility] Address [address] [facility] [address] Becerra: Epic Prelude ADT [place] [address] Care Team Providers Care Research Associate Molecular Biology Name Role Phone Rosa Shi MD Primary Care Provider [phone] Encounter Details Date Type Department Care Team (Latest Contact Info) Description 03/19/2022 Travel Social History Tobacco Use Types Packs/Day [...] and Hematology - [place] [address] [facility] [address] [place] [address] Aaron Smith MD [address] [facility] [address] [place] [address] 03/29/2025 12:30 PM CDT Appointment [facility] [address] [address] [place] [address] [place] [address] [facility] [address] [place] [address] 03/29/2025 1:30 PM CDT Office Visit [facility] Breast Surgery [place] [address] [facility] [address] [place] [address] [place] [address] [facility] [address] [place] [address] documented as of this encounter Visit Diagnoses Not on filedocumented in this encounter Care Teams Research Associate Molecular Biology Relationship Specialty Start Date End Date Rosa Shi MD [address] [place] [address] PCP - General Family Practice 01/15/21 documented as of this encounter
--- OUTSIDE RECORDS SUMMARY | 2024-10-23 02:17 | XMS_ITS | Encounter Summary ---
Author Organization [facility] Address [address] [facility] [address] Becerra: Epic Prelude ADT [place] [address] Care Team Providers Care Sports Book Server Name Role Phone Rosa Shi MD Primary Care Provider [phone] Encounter Details Date Type Department Care Team (Latest Contact Info) Description 03/24/2022 Travel Social History Tobacco Use Types Packs/Day [...] [place] Oncology and Hematology - [place] [address] [address] [place] [address] Aaron Smith MD [address] [facility] [address] [place] [address] 03/29/2025 12:30 PM CDT Appointment [facility] [address] [address] [place] [address] [place] [address] [facility] [address] [place] [address] 03/29/2025 1:30 PM CDT Office Visit [facility] Breast Surgery [place] [address] [facility] [address] [place] [address] [place] [address] [facility] [address] [place] [address] documented as of this encounter Visit Diagnoses Not on filedocumented in this encounter Care Teams Sports Book Server Relationship Specialty Start Date End Date Rosa Shi MD [address] [place] [address] PCP - General Family Practice 01/15/21 documented as of this encounter
--- OUTSIDE RECORDS SUMMARY | 2024-10-23 02:17 | XMS_ITS | Encounter Summary ---
Author Organization [facility] [employer] [facility] Address [address] [place] [address] Care Team Providers Care Straw Hat Washer Operator Name Role Phone Rosa Shi MD Primary Care Provider [phone] Reason for Visit * Reason Comments Follow Up 6 week f/u with labs Encounter Details Date Type Department Care Team (Late st Contact Info) Description 03/16/2022 2:15 PM CDT Office Visit [facility] Oncology and Hematology - [place] [address] [place] [address] 200 [place] [address] Aaron Smith MD [address] [facility] [address] [place] [address] Malignant neoplasm of areola of [...] suspected to have Coronavirus/COVID-19? No / Unsure 03/16/2022 1:27 PM CDT documented as of this encounter Last Filed Vital Signs Vital Sign Reading Time Taken Comments Blood Pressure 164/80 03/16/2022 1:57 PM CDT Pulse 91 03/16/2022 1:57 PM CDT Temperature 36.8 ??C (98.2 ??F) 03/16/2022 1:57 PM CD T Respiratory Rate - - Oxygen Saturation 91% 03/16/2022 1:57 PM CDT Inhaled Oxygen Concentration - - Weight 103.4 kg (228 lb) 03/16/2022 1:57 PM CDT Height 157.5 cm (5' 2 ) 03/16/2022 1:57 PM CDT Body Mass Index 41.7 03/16/2022 1:57 PM CDT documented in this encounter Progress Notes * Aaron Smith MD - 03/16/2022 2:49 PM CDT HEMATOLOGY / ONCOLOGY PROGRESS NOTE Patient Identification: Name: Rosa Babb Age: 56 y.o. Sex: female : 1965 DIAGNOSIS T2 N1 M0 stage IIB invasive mammary carcinoma status post left breast 9:00 needle biopsy done on January 14, 2021. ER strongly positive, [place] weakly positive and HER-2/dez positive. Ultrasound-guided biopsy [...] She has been tolerating treatment well. She has some discomfort in the left breast with swelling.Denies any other new complaint. Review of system [...] No obvious focal deficit Bilateral breast examination was performed. Right breast no masses or lymphadenopathy. Left breast 7 swelling and skin changes secondary to radiation therapy with some discomfort. No masses lymphadenopathy. PATH LABS Labs from February 16 showed [...] 5.5 hemoglobin 12.2 platelet 247,000 creatinine 0.8 Assessment: Plan: Patient Active Problem List Diagnosis [...] DCIS high-grade and 0/6 sentinel lymph node ER/FL positive and HER- 2/dez positive status post left-sided lumpectomy and left axillary lymph node biopsy done on 06/25/2021. Inferior margin less than 1 mm. Additional margins clear. Patient has completed cycle 6/6 of chemotherapy with TCH Perjeta on 05/28/2021. Patient completed radiation therapy treatment on September 22, 2021. Patient started maintenance Herceptin treatment on September 29, 2021. Labs noted and stable. On my examination there is some changes in the left breast secondary to radiation. I will order the tumor marker as well. Patient is going to discuss with Dr. Zepeda for discomfort in the left breast and will likely have mammogram done now. She will continue maintenance Herceptin as well as Arimidex which she has been tolerating well. I plan to see her back in 6 weeks. Chemotherapy-induced anemia. Resolved. TOBACCO COUNSELING She is not a tobacco user. . 03/16/2022 Aaron Smith MD documented in this encounter Plan of Treatment Upcoming Encounters Date Type Department Care Team (Late st Contact Info) Description 02/12/2025 1:00 PM CDT Office Visit [facility] Oncology and Hematology [facility] [address] [place] [address] [facility] [address] [place] [id number] [place] [address] [place] [address] [address] [place] [address] 03/29/2025 12:30 PM CDT Appointment [facility] [address] [address] [place] [address] [address] [facility] [address] [place] [address] 03/29/2025 1:30 PM CDT Office Visit [facility] Breast Surgery [place] [address] [facility] [address] [place] [address] [place] [address] [facility] [address] [place] [address] Scheduled Orders Name Type Priority Associated Diagnoses Orde r Schedule COMPREHENSIVE METABOLIC PANEL Lab Stat 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, estrogen receptor positive Expected: 04/23/2022, Expires: 03/16/2023 CBC WITH DIFFERENTIAL Lab Stat 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, estrogen receptor positive Expected: 04/23/2022, Expires: 03/16/2023 CANCER ANTIGEN 15-3 Lab Routine 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, estrogen receptor positive Expected: 03/16/2022, Expires: 03/16/2023 documented as of this encounter Visit Diagnoses Diagnosis 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, estrogen receptor positive Hypokalemia Hypopotassemia documented in this encounter Care Teams Straw Hat Washer Operator Relationship Specialty Start Date End Date Rosa Shi MD [address] [place] [address] PCP - General Family Practice 01/15/21 documented as of this encounter
--- OUTSIDE RECORDS SUMMARY | 2024-10-23 02:17 | XMS_ITS | Encounter Summary ---
Author Organization [facility] [employer] [facility] Address [address] [place] [address] Care Team Providers Care Business Education Professor Name Role Phone Rosa Shi MD Primary Care Provider [phone] Encounter Details Date Type Department Care Team (Late st Contact Info) Description 12/29/[address] [facility] Oncology and Hematology - [place] [address] [place] [address] Aaron Smith MD [address] [facility] [address] [place] [address] Malignant neoplasm of areola of [...] [facility] Oncology and Hematology - [place] [address] [place] [address] Aaron Smith MD [address] [address] 03/29/2025 12:30 PM CDT Appointment [facility] [place] [place] [address] [place] [address] [place] [address] [facility] [address] [place] [address] 03/29/2025 1:30 PM CDT Office Visit [facility] Breast Surgery [place] [address] [facility] [address] [place] [address] [place] [address] [facility] [address] [place] [address] documented as of this encounter Visit Diagnoses Diagnosis 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, estrogen receptor positive Hypokalemia Hypopotassemia documented in this encounter Care Teams Business Education Professor Relationship Specialty Start Date End Date Rosa Shi MD [address] [place] [address] PCP - General Family Practice 01/15/21 documented as of this encounter
--- OUTSIDE RECORDS SUMMARY | 2024-10-23 02:17 | XMS_ITS | Encounter Summary ---
Author Organization [facility] [employer] [facility] Address [address] [place] [address] Care Team Providers Care Kiln Firer Helper Name Role Phone Rosa Shi MD Primary Care Provider [phone] Encounter Details Date Type Department Care Team (Late Contact Info) Description 12/02/2021 Orders Only [facility] Oncology and Hematology - [place] [address] [place] [address] Jennifer Bernard Malignant neoplasm of [...] COVID-19? No / Unsure 11/10/2021 8:53 AM ICE CARVER documented as of this encounter Plan of Treatment Upcoming Encounters Date Type Department Care Team (Late st Contact Info) Description 02/12/2025 1:00 PM CDT Office Visit [facility] Oncology and Hematology - [place] [address] [place] [address] Aaron Smith MD [address] [address] 03/29/2025 12:[address] [facility] [place] [address] [place] [address] [place] [address] [facility] 120 [place] [address] 03/29/2025 1:30 PM CDT Office Visit [facility] Breast Surgery [place] [address] [facility] [address] [place] [address] [place] [address] [facility] [address] [place] [address] documented as of this encounter Procedures Procedure Name Priority Date/Time Associated Diagnosis Comments BASIC METABOLIC PANEL Routine 12/01/2021 documented in this encounter Results * BASIC METABOLIC PANEL (12/01/2021) Blood Abstract Provider CHEMISTRY ORDERABLES documented in this encounter Visit Diagnoses Diagnosis 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, estrogen receptor positive documented in this encounter Care Teams Kiln Firer Helper Relationship Specialty Start Date End Date Rosa hSi MD [address] [place] [address] PCP - General Family Practice 01/15/21 documented as of this encounter
--- OUTSIDE RECORDS SUMMARY | 2024-10-23 02:17 | XMS_ITS | Encounter Summary ---
Author Organization [facility] [employer] [facility] Address [address] [place] [address] Care Team Providers Care End Stapler Name Role Phone Rosa Shi MD Primary Care Provider [phone] Reason for Visit * Reason Onset Date Comments lab orders 11/07/2021 Encounter Details Date Type Department Care Team (Late Contact Info) Description 11/07/2021 Telephone [facility] Oncology and Hematology - [place] [address] [place] [address] [facility] [place] 200 [place] [address] Aaron Smith MD [address] [facility] [address] [place] [address] lab orders Social History Tobacco [...] COVID-19? 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 120 [place] [address] 03/29/2025 1:30 PM CDT Office Visit [facility] Breast Surgery [facility] [address] [facility] [address] [place] [address] [place] [address] [facility] 120 [place] [address] Scheduled Orders Name Type Priority Associated Diagnoses Orde r Schedule COMPREHENSIVE METABOLIC PANEL Lab Routine 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, estrogen receptor positive Hypokalemia Every Two Weeks for 99 Occurrences starting 11/07/2021 until 11/07/2022 documented as of this encounter Visit Diagnoses Diagnosis 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, estrogen receptor positive- Primary Hypokalemia Hypopotassemia documented in this encounter Care Teams End Stapler Relationship Specialty Start Date End Date Rosa Shi MD [address] [place] [address] PCP - General Family Practice 01/15/21 documented as of this encounter
--- OUTSIDE RECORDS SUMMARY | 2024-10-23 02:17 | XMS_ITS | Encounter Summary ---
Author Organization [facility] Address [address] [place] [address] Care Team Providers Care Motorman/Woman Name Role Phone Rosa Shi MD Primary Care Provider [phone] Encounter Details Date Type Department Care Team (Late st Contact Info) Description 01/13/2022 Chart Note [facility] BREAST SURGERY - [place] CLRKSN [address] [place] [address] Nickie Martinez, RN Social History Tobacco Use Types Packs/Day Years [...] PM CDT documented as of this encounter Progress Notes * Nickie Martinez, RN - 01/13/2022 11:02 AM CDT Patient called stating affected breast is sore and tight. No redness or drainage. She saw Dr Martel but was not examined. Suggested supportive bra and tylenol/ibuprofen. She will monitor and call me next week with update. documented in this encounter Plan of Treatment Upcoming Encounters Date Type Department Care Team (Late st Contact Info) Description 02/12/2025 1:00 PM CDT Office Visit [facility] Oncology and Hematology - [place] 2227 [facility] 200 [place] [address] Aaron Smith MD 2227 [facility] [address] [place] [address] 03/29/2025 12:30 PM CDT Appointment [facility] [address] [place] [address] [place] [address] [facility] 120 [place] [address] 03/29/2025 1:30 PM CDT Office Visit [facility] Breast Surgery [address] [address] [facility] [address] [place] [address] [place] [address] [facility] 120 [place] [address] documented as of this encounter Visit Diagnoses Not on filedocumented in this encounter Care Teams Motorman/Woman Relationship Specialty Start Date End Date Rosa Shi MD [address] [place] [address] PCP - General Family Practice 01/15/21 documented as of this encounter
--- OUTSIDE RECORDS SUMMARY | 2024-10-23 02:17 | XMS_ITS | Encounter Summary ---
Author Organization [facility] [employer] [facility] Address [address] [place] [address] Care Team Providers Care Information Broker Name Role Phone Rosa Shi MD Primary Care Provider [phone] Encounter Details Date Type Department Care Team (Late st Contact Info) Description 03/20/2022 Orders Only [facility] Oncology and Hematology - [place] [address] 200 [place] [address] [place] Malignant neoplasm of areola of left breast [...] PM CDT Office Visit [facility] Oncology and Hematology - [place] [address] [place] [address] Aaron Smith MD [address] [phone] 03/29/2025 12:30 PM CDT [facility] [address] [place] [address] [place] [address] [facility] 120 [place] [address] 03/29/2025 1:30 PM CDT Office Visit [facility] Breast Surgery [place] [address] [facility] [address] [place] [address] [place] [address] [facility] [address] [place] [address] documented as of this encounter Visit Diagnoses Diagnosis 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, estrogen receptor positive documented in this encounter Care Teams Information Broker Relationship Specialty Start Date End Date Rosa Shi MD [address] [place] [address] PCP - General Family Practice 01/15/21 documented as of this encounter
--- OUTSIDE RECORDS SUMMARY | 2024-10-23 02:17 | XMS_ITS | Encounter Summary ---
Author Organization [facility] [employer] [facility] Address [address] [place] [address] Care Team Providers Care Interactive Media Marketing Specialist Name Role Phone Rosa Shi MD Primary Care Provider [phone] Encounter Details Date Type Department Care Team (Late st Contact Info) Description 02/16/2022 Orders Only [facility] Oncology and Hematology Levi [address] [place] [address] Aaron Smith MD 2[address] [facility] [address] [place] [address] Malignant neoplasm of areola of [...] Hematology - Levi [address] [place] [address] Aaron Smith MD [address] [address] 03/29/2025 12:30 PM CDT Appointment [facility] [address] [place] [address] [place] [address] [facility] 120 [place] [address] 03/29/2025 1:30 PM CDT Office Visit [facility] Breast Surgery [address] [address] [facility] [address] [place] [address] [place] [address] [facility] 120 [place] [address] documented as of this encounter Visit Diagnoses Diagnosis 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, estrogen receptor positive documented in this encounter Care Teams Interactive Media Marketing Specialist Relationship Specialty Start Date End Date Rosa Shi MD [address] [place] [address] PCP - General Family Practice 01/15/21 documented as of this encounter
--- OUTSIDE RECORDS SUMMARY | 2024-10-23 02:17 | XMS_ITS | Encounter Summary ---
Author Organization [facility] Address [address] [facility] [address] Becerra: Epic Prelude ADT [place] [address] Care Team Providers Care Electric Tool Repairer Name Role Phone Rosa Shi MD Primary Care Provider [phone] Encounter Details Date Type Department Care Team (Latest Contact Info) Description 09/29/2021 Travel Social History Tobacco Use Types Packs/Day [...] COVID-19? No / Unsure 09/29/2021 10:31 AM DESTINATION IMAGINATION COORDINATOR documented as of this encounter Plan of Treatment Upcoming Encounters Date Type Department Care Team (Late st Contact Info) Description 02/12/2025 1:00 PM CDT Office Visit [facility] Oncology and Hematology - [place] [address] [facility] [address] [place] [address] Aaron Smith MD 2227 [facility] [address] [place] [address] 03/29/2025 12:[address] [facility] [address] [place] [address] [place] [address] [facility] [address] [place] [address] 03/29/2025 1:30 PM CDT Office Visit [facility] Breast Surgery [address] [address] [facility] [address] [place] [address] [place] [address] [facility] [address] [place] [address] documented as of this encounter Visit Diagnoses Not on filedocumented in this encounter Care Teams Electric Tool Repairer Relationship Specialty Start Date End Date Rosa Shi MD [facility]4 [place] [address] PCP - General Family Practice 01/15/21 documented as of this encounter
--- OUTSIDE RECORDS SUMMARY | 2024-10-23 02:17 | XMS_ITS | Encounter Summary ---
Author Organization [facility] [employer] [facility] Address [address] [place] [address] Care Team Providers Care Occupational Health Nurse Name Role Phone Rosa Shi MD Primary Care Provider [phone] Encounter Details Date Type Department Care Team (Late st Contact Info) Description 01/05/2022 Orders Only [facility] Oncology and Hematology Levi [address] [place] [address] Aaron Smith MD 2[address] [facility] [address] [place] [address] Malignant neoplasm of areola of [...] Center Oncology and Hematology - [place] [address] [place] [address] Aaron Smith MD [address] [address] 03/29/2025 12:30 PM CDT Appointment [facility] [address] [place] [address] [place] [address] [facility] 120 [place] [address] 03/29/2025 1:30 PM CDT Office Visit [facility] Breast Surgery [place] [address] [facility] [address] [place] [address] [place] [address] [facility] 120 [place] [address] documented as of this encounter Visit Diagnoses Diagnosis 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, estrogen receptor positive documented in this encounter Care Teams Occupational Health Nurse Relationship Specialty Start Date End Date Rosa Shi MD [address] [place] [address] PCP - General Family Practice 01/15/21 documented as of this encounter
--- OUTSIDE RECORDS SUMMARY | 2024-10-23 02:17 | XMS_ITS | Encounter Summary ---
Author Organization [facility] Address [address] [facility] [address] Becerra: Epic Prelude ADT [place] [address] Care Team Providers Care Paper Guillotine Operator Name Role Phone Rosa Shi MD Primary Care Provider [phone] Encounter Details Date Type Department Care Team (Latest Contact Info) Description 03/16/2022 Travel Social History Tobacco Use Types Packs/Day [...] [facility] Oncology and Hematology - [place] [address] [facility] [address] [place] [address] Aaron Smith MD 2227 [facility] [address] [place] [address] 03/29/2025 12:30 PM CDT Appointment [facility] [address] [place] [address] [place] [address] [facility] [address] [place] [address] 03/29/2025 1:30 PM CDT Office Visit [facility] Breast Surgery [address] [address] [facility] [address] [place] [address] [place] [address] [facility] [address] [place] [address] documented as of this encounter Visit Diagnoses Not on filedocumented in this encounter Care Teams Paper Guillotine Operator Relationship Specialty Start Date End Date Rosa Shi MD [address]4 [place] [address] PCP - General Family Practice 01/15/21 documented as of this encounter
--- OUTSIDE RECORDS SUMMARY | 2024-10-23 02:17 | XMS_ITS | Encounter Summary ---
Author Organization [facility] [employer] [facility] Address [address] [place] [address] Care Team Providers Care Hot Braider Name Role Phone Rosa Shi MD Primary Care Provider [phone] Encounter Details Date Type Department Care Team ([facility] Contact Info) Description 12/01/2021 Orders Only [facility] Oncology and Hematology - [place] 2[address] [facility] 200 [place] [address] Aaron Smith MD 2227 [facility] [address] [place] [address] Malignant neoplasm of areola of [...] COVID-19? No / Unsure 11/10/2021 8:53 AM ELECTRICIAN SUBSTATION documented as of this encounter Plan of Treatment Upcoming Encounters Date Type Department Care Team ([facility] Contact Info) Description 02/12/2025 1:00 PM CDT Office Visit [facility] Oncology and Hematology - [place] 2227 [facility] 200 [place] [address] Aaron Smith MD 2227 [facility] [address] [place] [address] 03/29/2025 12:30 PM CDT Appointment [facility] [place] [address] [place] [address] [place] [address] [facility] 120 [place] [address] 03/29/2025 1:30 PM CDT Office Visit [facility] Breast Surgery [place] [address] [facility] [address] [place] [address] [place] [address] [facility] 120 [place] [address] documented as of this encounter Visit Diagnoses Diagnosis 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, estrogen receptor positive Hypokalemia Hypopotassemia documented in this encounter Care Teams Hot Braider Relationship Specialty Start Date End Date Rosa Shi MD [address] [place] [address] PCP - General Family Practice 01/15/21 documented as of this encounter
--- OUTSIDE RECORDS SUMMARY | 2024-10-23 02:17 | XMS_ITS | Encounter Summary ---
Author Organization [facility] Address [address] [facility] [address] Becerra: Epic Prelude ADT [place] [address] Care Team Providers Care Material Specialist Name Role Phone Rosa Shi MD Primary Care Provider Encounter Details Date Type Department Care Team (Latest Contact Info) Description 10/20/2021 Travel Social History Tobacco Use Types Packs/Day [...] COVID-19? No / Unsure 10/20/2021 11:31 AM JOB PLACEMENT SPECIALIST documented as of this encounter Plan of Treatment Upcoming Encounters Date Type Department Care Team (Late st Contact Info) Description 02/12/2025 1:00 PM CDT Office Visit [facility] Oncology and Hematology - [place] 2[address] [facility] 200 [place] [address] Aaron Smith MD 2227 [facility] [address] [place] [address] 03/29/2025 12:30 PM CDT Appointment [facility] [place] [address] [place] [address] [place] [address] [facility] [address] [place] [address] 03/29/2025 1:30 PM CDT Office Visit [facility] Breast Surgery [place] [address] [facility] [address] [place] [address] [place] [address] [facility] [address] [place] [address] documented as of this encounter Visit Diagnoses Not on filedocumented in this encounter Care Teams Material Specialist Relationship Specialty Start Date End Date Rosa Shi MD [facility] [place] [address] PCP - General Family Practice 01/15/21 documented as of this encounter
--- OUTSIDE RECORDS SUMMARY | 2024-10-23 02:17 | XMS_ITS | Encounter Summary ---
Author Organization [facility] [employer] [facility] Address [address] [place] [address] Care Team Providers Care Veterinary Parasitologist Name Role Phone Rosa Shi MD Primary Care Provider [phone] Encounter Details Date Type Department Care Team (Late st Contact Info) Description 08/22/2021 Orders Only [facility] Oncology and Hematology - Levi [address] [place] [address] Jennifer Bernard Malignant neoplasm of [...] [facility] Oncology and Hematology - Levi [address] [place] [address] Aaron Smith MD [address] [address] 03/29/2025 12:30 PM CDT Appointment [facility] [address] [place] [address] [place] [address] [facility] 120 [place] [address] 03/29/2025 1:30 PM CDT Office Visit [facility] Breast Surgery [address] [address] [address] [facility] [address] [place] [address] [place] [address] [facility] [address] [place] [address] documented as of this encounter Procedures Procedure Name Priority Date/Time Associated Diagnosis Comments BASIC METABOLIC PANEL Routine 08/21/2021 documented in this encounter Results * BASIC METABOLIC PANEL (08/21/2021) Blood Abstract Provider CHEMISTRY ORDERABLES documented in this encounter Visit Diagnoses Diagnosis 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, estrogen receptor positive documented in this encounter Care Teams Veterinary Parasitologist Relationship Specialty Start Date End Date Rosa Shi MD [address] [place] [address] PCP - General Family Practice 01/15/21 documented as of this encounter
--- OUTSIDE RECORDS SUMMARY | 2024-10-23 02:17 | XMS_ITS | Encounter Summary ---
Author Organization [facility] [employer] [facility] Address [address] [place] [address] Care Team Providers Care Hematology Supervisor Name Role Phone Rosa Shi MD Primary Care Provider [phone] Encounter Details Date Type Department Care Team (Late st Contact Info) Description 10/13/2021 Orders Only [facility] Oncology and Hematology - Levi 2227 [facility] 200 [place] [address] Aaron Smith MD [address] [facility] [address] [place] [address] Malignant neoplasm of areola of [...] COVID-19? No / Unsure 09/29/2021 10:31 AM FORENSIC BALLISTICS EXPERT documented as of this encounter Plan of Treatment Upcoming Encounters Date Type Department Care Team (Late st Contact Info) Description 02/12/2025 1:00 PM CDT Office Visit [facility] Oncology and Hematology - Levi 2[address] [facility] 200 [place] [address] Aaron Smith MD [address] [facility] [address] [place] [address] 03/29/2025 12:30 PM CDT Appointment [facility] [address] [place] [address] [place] [address] [facility] 120 [place] [address] 03/29/2025 1:30 PM CDT Office Visit [facility] Breast Surgery [facility] [address] [facility] [address] [place] [address] [place] [address] [facility] 120 [place] [address] documented as of this encounter Visit Diagnoses Diagnosis 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, estrogen receptor positive documented in this encounter Care Teams Hematology Supervisor Relationship Specialty Start Date End Date Rosa Shi MD [address] [place] [address] PCP - General Family Practice 01/15/21 documented as of this encounter
--- OUTSIDE RECORDS SUMMARY | 2024-10-23 02:17 | XMS_ITS | Encounter Summary ---
Author Organization [facility] Address [address] [place] [address] Care Team Providers Care Rehab Consultant Name Role Phone Rosa Shi MD Primary Care Provider [phone] Reason for Visit * Reason Comments Nurse Navigation Encounter Details Date Type Department Care Team (Late st Contact Info) Description 07/30/2021 Chart Note [facility] Oncology Patient Navigation [address] [place] [address] Sonia Herrera, SRINIVASAN Nurse Navigation Social History [...] AM CDT documented as of this encounter Progress Notes * Sonia Herrera RN - 07/30/2021 9:17 AM CDT Navigation Assessment Note Pt call to office. Pt reports her insurance is denying radiation treatments, even though radiaition is indicated as next step in plan of care. Instructed patient to call her radiation oncologist to let them know so that they are aware. Unable to see in chart who patient's radiation oncologist is d[place] [place] Pt has contact info for this RN and will reach out with any non-emergent needs. This RN to follow up. Alyce Herrera, RN, Nurse Navigator documented in this encounter Plan of Treatment Upcoming Encounters Date Type Department Care Team ([facility] st Contact Info) Description 02/12/2025 1:00 PM CDT Office Visit [facility] Oncology and Hematology [facility] 2227 [facility] 200 [place] [address] Aaron Smith MD 2227 [facility] [address] [place] [address] 03/29/2025 12:30 PM CDT Appointment [facility] [address] [place] [address] [place] [address] [facility] 120 [place] [address] 03/29/2025 1:30 PM CDT Office Visit [facility] Breast Surgery [facility] [address] [facility] [address] [place] [address] [place] [address] [facility] 120 [place] [address] documented as of this encounter Visit Diagnoses Not on filedocumented in this encounter Care Teams Rehab Consultant Relationship Specialty Start Date End Date Rosa Shi MD [address]4 [place] [address] PCP - General Family Practice 01/15/21 documented as of this encounter
--- OUTSIDE RECORDS SUMMARY | 2024-10-23 02:17 | XMS_ITS | Encounter Summary ---
Author Organization [facility] [employer] [facility] Address [address] [place] [address] Care Team Providers Care Quiller Hand Name Role Phone Rosa Shi MD Primary Care Provider [phone] Encounter Details Date Type Department Care Team (Late st Contact Info) Description 02/24/2022 Orders Only [facility] Oncology and Hematology - Levi [address] [place] [address] Jennifer Bernard Malignant neoplasm of [...] [facility] Oncology and Hematology - Levi [address] [place] [address] Aaron Smith MD 6356 [facility] [address] [place] [address] 03/29/2025 12:30 PM CDT Appointment [facility] [address] [place] [address] [place] [address] [facility] [address] [place] [address] 03/29/2025 1:30 PM CDT Office Visit [facility] Breast Surgery [place] [address] [facility] [address] [place] [address] [place] [address] [facility] [address] [place] [address] documented as of this encounter Visit Diagnoses Diagnosis 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, estrogen receptor positive documented in this encounter Care Teams Quiller Hand Relationship Specialty Start Date End Date Rosa Shi MD [address]4 [place] [address] PCP - General Family Practice 01/15/21 documented as of this encounter
--- OUTSIDE RECORDS SUMMARY | 2024-10-23 02:17 | XMS_ITS | Encounter Summary ---
Author Organization [facility] [employer] [facility] Address [address] [place] [address] Care Team Providers Care Body Fitter Name Role Phone Rosa Shi MD Primary Care Provider [phone] Encounter Details Date Type Department Care Team (Late st Contact Info) Description 10/07/2021 Orders Only [facility] Oncology and Hematology - [place] [address] [facility] [address] [place] [address] Aaron Smith MD [address] [facility] [address] [place] [address] Malignant neoplasm of areola of [...] COVID-19? No / Unsure 09/29/2021 10:31 AM JEWELER APPRENTICE documented as of this encounter Plan of Treatment Upcoming Encounters Date Type Department Care Team (Late st Contact Info) Description 02/12/2025 1:00 PM CDT Office Visit [facility] Oncology and Hematology - [place] [address] [facility] [address] [place] [address] Aaron Smith MD [address] [facility] [address] [place] [address] 03/29/2025 12:30 PM CDT Appointment [facility] [address] [place] [address] [place] [address] [facility] [address] [place] [address] 03/29/2025 1:30 PM CDT Office Visit [facility] Breast Surgery [facility] [address] [facility] [address] [place] [address] [place] [address] [facility] [address] [place] [address] documented as of this encounter Visit Diagnoses Diagnosis 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, estrogen receptor positive- Primary documented in this encounter Care Teams Body Fitter Relationship Specialty Start Date End Date Rosa Shi MD [address] [place] [id number] PCP - General Family Practice 01/15/21 documented as of this encounter
--- OUTSIDE RECORDS SUMMARY | 2024-10-23 02:17 | XMS_ITS | Encounter Summary ---
Author Organization [facility] Domain Apps [facility] Address [address] [place] [address] Care Team Providers Care Front End Loader Driver Name Role Phone Rosa Shi MD Primary Care Provider [phone] Encounter Details Date Type Department Care Team (Late st Contact Info) Description 12/15/2021 Orders Only [facility] Oncology and Hematology - Levi Radha Crowell [address] [place] [address] Aaron Smith MD [address] [facility] [address] [place] [address] Malignant neoplasm [...] 1:00 PM CDT Office Visit [facility] Oncology and Hematology - Levi [address] Kim Crow[address] [place] [address] Aaron Smith MD [address] [address] 03/29/2025 12:30 PM CDT Appointment [facility] [address] [place] [address] [place] [address] [facility] [address] [place] [address] 03/29/2025 1:30 PM CDT Office Visit [facility] Breast Surgery [place] [address] [facility] [address] [place] [address] [place] [address] [facility] [address] [place] [address] documented as of this encounter Visit Diagnoses Diagnosis 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, estrogen receptor positive Hypokalemia Hypopotassemia documented in this encounter Care Teams Front End Loader Driver Relationship Specialty Start Date End Date Rosa Shi MD [address] [place] [address] PCP - General Family Practice 01/15/21 documented as of this encounter
--- OUTSIDE RECORDS SUMMARY | 2024-10-23 02:17 | XMS_ITS | Encounter Summary ---
Author Organization [facility] [employer] [facility] Address [address] [place] [address] Care Team Providers Care Gas Meter Installer Name Role Phone Rosa Shi MD Primary Care Provider [phone] Encounter Details Date Type Department Care Team (Late st Contact Info) Description 10/20/2021 Orders Only [facility] Oncology and Hematology - [place] [address] [facility] [address] [place] [address] Aaron Smith MD [address] [facility] [address] [place] [address] Malignant neoplasm of areola of [...] COVID-19? No / Unsure 10/21/2021 1:08 PM CARPENTER BR[place]GE documented as of this encounter Plan of Treatment Upcoming Encounters Date Type Department Care Team (Late st Contact Info) Description 02/12/2025 1:00 PM CDT Office Visit [facility] Oncology and Hematology - [place] [address] [facility] [address] [place] [address] Aaron Smith MD [address] [facility] [address] [place] [address] 03/29/2025 12:30 PM CDT Appointment [facility] [address] [place] [address] [place] [address] [facility] [address] [place] [address] 03/29/2025 1:30 PM CDT Office Visit [facility] Breast Surgery [facility] [address] [facility] [address] [place] [address] [place] [address] [facility] [address] [place] [address] documented as of this encounter Visit Diagnoses Diagnosis 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, estrogen receptor positive documented in this encounter Care Teams Gas Meter Installer Relationship Specialty Start Date End Date Rosa Shi MD [address] [place] [address] PCP - General Family Practice 01/15/21 documented as of this encounter
--- OUTSIDE RECORDS SUMMARY | 2024-10-23 02:18 | XMS_ITS | Encounter Summary ---
Author Organization [facility] Address [address] [place] [address] Care Team Providers Care Senior Asset Manager Name Role Phone Rosa Shi MD Primary Care Provider [phone] Reason for Visit * Reason Comments Nurse Navigation Encounter Details Date Type Department Care Team (Late st Contact Info) Description 05/07/2021 Chart Note [facility] Oncology Patient Navigation [address] [place] [address] Sonia Herrera, RN Nurse Navigation Social History Tobacco Use Types [...] have Coronavirus / COVID-19? No / Unsure 05/07/2021 8:43 AM CDT documented as of this encounter Progress Notes * Sonia Herrera RN - 05/07/2021 2:02 PM CDT Navigation Assessment Note Spoke to patient on the phone to check on well being and see how chemotherapy has been going. Pt reports things have been going well overall and states she has been able to manage symptoms fromchemotherapy with medications. Pt states she is on her 5th/6th chemo cycle and is scheduled to meetwith the surgeon next week. Denies needs and concerns. Pt has contact info for this RN and will reach out with any non-emergent needs. This RN to follow up. Alyce Herrera, RN, Nurse Navigator documented in this encounter Plan of Treatment Upcoming Encounters Date Type Department Care Team ([facility] st Contact Info) Description 02/12/2025 1:00 PM CDT Office Visit [facility] Oncology and Hematology [facility] [address] [facility] [address] [place] [phone] Aaron Smith MD [address] [facility] [address] [place] [address] 03/29/2025 12:30 PM CDT Appointment [facility] [address] [place] [address] [place] [address] [facility] [address] [place] [address] 03/29/2025 1:30 PM CDT Office Visit [facility] Breast Surgery [facility] [address] [facility] [address] [place] [address] [place] [address] [facility] [address] [place] [address] documented as of this encounter Visit Diagnoses Not on filedocumented in this encounter Care Teams Senior Asset Manager Relationship Specialty Start Date End Date Rosa Shi MD [address] [place] [address] PCP - General Family Practice 01/15/21 documented as of this encounter
--- OUTSIDE RECORDS SUMMARY | 2024-10-23 02:18 | XMS_ITS | Encounter Summary ---
Author Organization [facility] Address [address] [place] [address] Care Team Providers Care Judicial Clerk Name Role Phone Rosa Shi MD Primary Care Provider [phone] Reason for Referral * Radiology Services (Routine) - Closed Specialty Diagnoses / Procedures Referred By Contac t Referred To Contact Nuclear Medicine Diagnoses 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, estrogen receptor positive Procedures NM [place] [address] [address] Referral ID Status Reason Start Date Expiration Date V isits Requested Visits Authorized [id number] Closed Ordering Dept to Review 05/19/2021 06/19/2022 1 1 * Radiology Services (Routine) - Closed Specialty Diagnoses / Procedures Referred By Contastrid t Referred To Contact Diagnoses 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, estrogen receptor positive Procedures MAMMO POST [place] [address] [address] [facility] [address] [place] [address] Referral ID Status Reason Start Date Expiration Date V isits Requested Visits Authorized [id number] Closed Ordering Dept to Review 05/19/2021 06/19/2022 1 1 * Radiology Services (Routine) - Closed Specialty Diagnoses / Procedures Referred By Contac t Referred To Contact Diagnoses 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, estrogen receptor positive Procedures MAMMO NEEDLE [place] [address] [facility] [address] [place] [address] Referral ID Status Reason Start Date Expiration Date V isits Requested Visits Authorized [id number] Closed Ordering Dept to Review 05/19/2021 06/19/2022 1 1 Encounter Details Date Type Department Care Team ([facility] Contact Info) Description 05/19/2021 Prep for Surgery [facility] BREAST SURGERY - [place] CLRKS[facility] [address] [facility] [address] [place] [address] [place] [address] [facility] [address] [place] [address] Malignant neoplasm of areola of [...] have Coronavirus / COVID-19? No / Unsure 05/20/2021 10:04 AM CDT documented as of this encounter Plan of Treatment Upcoming Encounters Date Type Department Care Team (Late Contact Info) Description 02/12/2025 1:00 PM CDT Office Visit [facility] Oncology and Hematology - Levi [facility] Kim Crowell [address] [place] [address] Aaron Smith MD [address] [facility] [address] [place] [address] 03/29/2025 12:30 PM CDT Appointment [facility] [address] [place] [address] [place] [address] [facility] [address] [place] [address] 03/29/2025 1:30 PM CDT Office Visit [facility] Breast Surgery [address] [address] [facility] [address] [place] [address] [place] [address] [facility] [address] [place] [address] documented as of this encounter Results * MAMMO POST PROCEDURE MAMMO LEFT (06/25/2021 11:12 AM CDT) Anatomical Region Laterality Modality Breast Left Mammography 06/25/2021 11:1 2 AM CDT Impressions 06/25/2021 2:24 PM CDT IMPRESSION: Technically successful ultrasound-guided needle localizations, three sites. Technically successful mammographic guided needle localization. DICTATION LOCATION: ??Katheryn Berg Narrative 06/25/2021 2:24 PM CDT EXAM: LEFT BREAST NEEDLE LOCALIZATION UTILIZING ULTRASOUND GUIDANCE X3, LEFT BREAST WIRE LOCALIZATION USING DIGITAL MAMMOGRAPHIC GUIDANCE, UNILATERAL LEFT FULL-FIELD DIGITAL DIAGNOSTIC MAMMOGRAM, SPECIMEN RADIOGRAPH DATE: 06/25/2021 11:12 AM HISTORY: Malignant neoplasm of the left breast ?? PROCEDURE AND FINDINGS: The procedure was discussed with the patient. After sterile preparation of the skin, 1% lidocaine was utilized for local anesthesia. The first wire was placed under ultrasound guidance into the axillary tail lymph node. The hookwire system was inserted into the area of interest from a lateral to medial approach using sonographic guidance. 0.2 cc of methylene blue dye was injected through the hub of the needle prior to insertion of the wire. ??The patient tolerated the procedure well and there was no evidence of immediate complication. ?? The second wire was placed under ultrasound guidance from a lateral to medial approach into the subareolar left breast mass. The hookwire system was inserted into the area of interest from a lateral to medial approach using sonographic guidance. 0.2 cc of methylene blue dye was injected through the hub of the needle prior to insertion of the wire. The patient tolerated the procedure well and there was no evidence of immediate complication. ?? The third wire was placed under ultrasound guidance from a lateral to medial approach at the mass with the biopsy marking clip within the medial left breast. ??The hookwire system was inserted into the area of interest from a lateral to medial approach using sonographic guidance. 0.2 cc of methylene blue dye was injected through the hub of the needle prior to insertion of the wire. ??The patient tolerated the procedure well and there was no evidence of immediate complication. ?? The fourth wire was placed under mammographic guidance from a medial to lateral approach targeting the area 6 cm posterior to the subareolar left breast mass. ??The hookwire system was inserted into the area of interest from a medial to lateral approach using mammographic guidance. 0.2 cc of methylene blue dye was injected through the hub of the needle prior to insertion of the wire. ??The patient tolerated the procedure well and there was no evidence of immediate complication. A two-view full-field digital diagnostic mammogram was performed and reveals the wires to be in adequate position. The surgical specimen was subsequently received from the operating room. The breast specimen demonstrates three localization wires from the left breast containing the dense tissue and biopsy marking clips and also the wire placed posterior medial in the left breast. The localization wire of the axillary tail lymph node and tissue was sent directly to pathology without imaging. Findings communicated to the surgeon by myself at the time of the specimen radiograph. Chayo Zepeda MD MAMMO ORDERABLES * MAMMO NEEDLE LOC EA LESION LT (06/25/2021 8:50 AM CDT) Anatomical Region Laterality Modality Breast Left Ultrasound 06/25/2021 9:19 AM CDT Impressions 06/25/2021 2:24 PM CDT IMPRESSION: Technically successful ultrasound-guided needle localizations, three sites. Technically successful mammographic guided needle localization. DICTATION LOCATION: ??Katheryn Cornelius 06/25/2021 2:24 PM CDT EXAM: LEFT BREAST NEEDLE LOCALIZATION UTILIZING ULTRASOUND GUIDANCE X3, LEFT BREAST WIRE LOCALIZATION USING DIGITAL MAMMOGRAPHIC GUIDANCE, UNILATERAL LEFT FULL-FIELD DIGITAL DIAGNOSTIC MAMMOGRAM, SPECIMEN RADIOGRAPH DATE: 06/25/2021 11:12 AM HISTORY: Malignant neoplasm of the left breast ?? PROCEDURE AND FINDINGS: The procedure was discussed with the patient. After sterile preparation of the skin, 1% lidocaine was utilized for local anesthesia. The first wire was placed under ultrasound guidance into the axillary tail lymph node. The hookwire system was inserted into the area of interest from a lateral to medial approach using sonographic guidance. 0.2 cc of methylene blue dye was injected through the hub of the needle prior to insertion of the wire. ??The patient tolerated the procedure well and there was no evidence of immediate complication. ?? The second wire was placed under ultrasound guidance from a lateral to medial approach into the subareolar left breast mass. The hookwire system was inserted into the area of interest from a lateral to medial approach using sonographic guidance. 0.2 cc of methylene blue dye was injected through the hub of the needle prior to insertion of the wire. The patient tolerated the procedure well and there was no evidence of immediate complication. ?? The third wire was placed under ultrasound guidance from a lateral to medial approach at the mass with the biopsy marking clip within the medial left breast. ??The hookwire system was inserted into the area of interest from a lateral to medial approach using sonographic guidance. 0.2 cc of methylene blue dye was injected through the hub of the needle prior to insertion of the wire. ??The patient tolerated the procedure well and there was no evidence of immediate complication. ?? The fourth wire was placed under mammographic guidance from a medial to lateral approach targeting the area 6 cm posterior to the subareolar left breast mass. ??The hookwire system was inserted into the area of interest from a medial to lateral approach using mammographic guidance. 0.2 cc of methylene blue dye was injected through the hub of the needle prior to insertion of the wire. ??The patient tolerated the procedure well and there was no evidence of immediate complication. A two-view full-field digital diagnostic mammogram was performed and reveals the wires to be in adequate position. The surgical specimen was subsequently received from the operating room. The breast specimen demonstrates three localization wires from the left breast containing the dense tissue and biopsy marking clips and also the wire placed posterior medial in the left breast. The localization wire of the axillary tail lymph node and tissue was sent directly to pathology without imaging. Findings communicated to the surgeon by myself at the time of the specimen radiograph. Chayo Zepeda MD MAMMO ORDERABLES * NM LYMPHOSCINTIGRAPHY (06/25/2021 7:01 AM CDT) Anatomical Region Laterality Modality Nuclear Medicine 06/25/2021 7:01 AM CDT Impressions 06/25/2021 8:05 AM CDT IMPRESSION: ?? 1. Lymphoscintigraphy of left breast. 2. Visualization of left axillary sentinal node. DICTATION LOCATION: Location [address] [place] [address] Narrative 06/25/2021 8:05 AM CDT NM LYMPHOSCINTIGRAPHY DATE: 06/25/2021 7:01 AM HISTORY: ?? 55 years Female with left-sided breast carcinoma. PROCEDURE: ?? 2 injections of Tc 99m labeled Lymphoseek (for a total of 0.5 mCi injected) were made in the periareolar distribution after skin preparation with ChloraPrep wipes. Subsequently, multiple planar oblique views were obtained. FINDINGS: Images demonstrate the injection site. A left axillary sentinel node is visualized. ? Procedure Note Chava Ortiz DO - 06/25/2021 NM LYMPHOSCINTIGRAPHY DATE: 06/25/2021 7:01 AM HISTORY: 55 years Female with left-sided breast carcinoma. PROCEDURE: 2 injections of Tc 99m labeled Lymphoseek (for a total of 0.5 mCi injected) were made in the periareolar distribution after skin preparation with ChloraPrep wipes. Subsequently, multiple planar oblique views were obtained. FINDINGS: Images demonstrate the injection site. A left axillary sentinel node is visualized. IMPRESSION: 1. Lymphoscintigraphy of left breast. 2. Visualization of left axillary sentinal node. DICTATION LOCATION: Location - [facility] Chayo Zepeda MD NM ORDERABLES documented in this encounter Visit Diagnoses Diagnosis 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, estrogen receptor positive- Primary 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, estrogen receptor positive 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, estrogen receptor positive 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, estrogen receptor positive documented in this encounter Care Teams Judicial Clerk Relationship Specialty Start Date End Date Rosa Shi MD [address] [place] [id number] PCP - General Family Practice 01/15/21 documented as of this encounter
--- OUTSIDE RECORDS SUMMARY | 2024-10-23 02:18 | XMS_ITS | Encounter Summary ---
Author Organization [facility] ([facility] [employer] [facility] Address [address] [place] [address] Care Team Providers Care Bellman Driver Name Role Phone Rosa Shi MD Primary Care Provider [phone] Reason for Visit * Reason Comments Follow Up echo, labs, chemo, 3 wk Encounter Details Date Type Department Care Team (Late st Contact Info) Description 05/07/2021 8:45 AM CDT Office Visit [facility] Oncology and Hematology - [place] [address] [place] [address] [address] [place] [address] Aaron Smith MD [address] [facility] [address] [place] [address] Malignant neoplasm of areola of [...] Sign Reading Time Taken Comments Blood Pressure 175/88 05/07/2021 8:55 AM CDT 184/92 initial read with digital arm cuff Pulse 86 05/07/2021 8:55 AM CDT Temperature 36.7 ??C (98.1 ??F) 05/07/2021 8 :55 AM CDT Respiratory Rate - - Oxygen Saturation 97% 05/07/2021 8:5 5 AM CDT 89% initial read Inhaled Oxygen Concentration - - Weight 100 kg (220 lb 8 oz) 05/07/2021 8:55 AM CDT Height 157.5 cm (5' 2 ) 05/07/2021 8:55 AM CDT Body Mass Index 40.33 05/07/2021 8:55 AM CDT documented in this encounter Progress Notes * Aaron Smith MD - 05/07/2021 9:19 AM CDT HEMATOLOGY / ONCOLOGY PROGRESS NOTE [...] carcinoma on January 23, 2021. CURRENT TREATMENT Neoadjuvant chemotherapy with TCH Perjeta started February 12, 2021. TREATMENT HISTORY Breast MRI: 01/14/21 Left [...] 1.7 cm. ?? Right breast - negative SUBJECTIVE Patient came into the office for follow-up visit and continuation of chemotherapy treatment. So far she has been tolerating treatment well. Denies any neuropathy. No nausea vomiting. No other new complaints. 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 Labs noted. Patient will proceed with chemotherapy cycle #5/6 of TCH Perjeta today. So far she is tolerating treatment well. I plan to see her back in 3 weeks. Chemotherapy-induced anemia. Patient is already taking oral iron. I asked her to take multivitamin as well. Chemotherapy-induced neutropenia prophylaxis. Continue Neulasta. Chemotherapy-induced diarrhea. Under control with Imodium. TOBACCO COUNSELING She is not a tobacco user. . 05/07/2021 Aaron Smith MD documented in this encounter Plan of Treatment Upcoming Encounters Date Type Department Care Team (Late st Contact Info) Description 02/12/2025 1:00 PM CDT Office Visit [facility] Oncology and Hematology - [place] [address] [facility] [address] [place] [address] Aaron Smith MD [address] [facility] [address] [place] [address] 03/29/2025 12:30 PM CDT [facility] [place] [address] [place] [address] [place] [address] [facility] [address] [address] 03/29/2025 1:30 PM CDT Office Visit [facility] Breast Surgery [place] [address] [facility] [address] [place] [address] [place] [address] [facility] [address] [address] Scheduled Orders Name Type Priority Associated Diagnoses Orde r Schedule COMPREHENSIVE METABOLIC PANEL Lab Stat 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, estrogen receptor positive Expected: 05/28/2021 (Approximate), Expires: 05/07/2022 CBC WITH DIFFERENTIAL Lab Stat 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, estrogen receptor positive Expected: 05/28/2021 (Approximate), Expires: 05/07/2022 documented as of this encounter Visit Diagnoses Diagnosis 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, estrogen receptor positive- Primary documented in this encounter Care Teams Bellman Driver Relationship Specialty Start Date End Date Rosa Shi MD [address] [place] [id number] PCP - General Family Practice 01/15/21 documented as of this encounter
--- OUTSIDE RECORDS SUMMARY | 2024-10-23 02:18 | XMS_ITS | Encounter Summary ---
Author Organization [facility] [employer] [facility] Address [address] [place] [address] Care Team Providers Care Burlap Bag Sewer Name Role Phone Rosa Shi MD Primary Care Provider [phone] Encounter Details Date Type Department Care Team (Late st Contact Info) Description 05/30/2021 Orders Only [facility] Oncology and Hematology - [place] [address] [place] [address] Jennifer Bernard Malignant neoplasm of [...] have Coronavirus / COVID-19? No / Unsure 05/28/2021 8:44 AM CDT documented as of this encounter Plan of Treatment Upcoming Encounters Date Type Department Care Team (Late st Contact Info) Description 02/12/2025 1:00 PM CDT Office Visit [facility] Oncology and Hematology - [place] [address] [place] [address] Aaron Smith MD [address] [phone] 03/29/2025 12:30 PM CDT [facility] [address] [place] [address] [place] [address] [facility] [address] [place] [address] 03/29/2025 1:30 PM CDT Office Visit [facility] Breast Surgery [address] [place] [address] [facility] [address] [place] [address] [place] [address] [facility] [address] [place] [address] documented as of this encounter Visit Diagnoses Diagnosis 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, estrogen receptor positive documented in this encounter Care Teams Burlap Bag Sewer Relationship Specialty Start Date End Date Rosa Shi MD [address] [place] [phone] PCP - General Family Practice 01/15/21 documented as of this encounter
--- OUTSIDE RECORDS SUMMARY | 2024-10-23 02:18 | XMS_ITS | Encounter Summary ---
Author Organization [facility] Address [address] [place] [address] Care Team Providers Care Button Grader Name Role Phone Rosa Shi MD Primary Care Provider [phone] Reason for Referral * Radiology Services (Routine) - Closed Specialty Diagnoses / Procedures Referred By Vi jackson Referred To Contact Nuclear Medicine Diagnoses 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, estrogen receptor positive Procedures NM [place] [id number] [address] Referral ID Status Reason Start Date Expiration Date V isits Requested Visits Authorized [id number] Closed Ordering Dept to Review 05/19/2021 06/19/2022 1 1 Reason for Visit * Auth/Cert Specialty Diagnoses / Procedures Referred By Vi jackson Referred To Contact Diagnoses 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, estrogen receptor positive 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, estrogen receptor positive [C50.012, Z17.0] Procedures AK MASTECTOMY, PARTIAL AK BX/REMV,LYMPH NODE,DEEP AXILL CHG LYMPHATICS & LYMPH GLANDS IMAGING AK REMOVE ARMPITS LYMPH NODES COMPLT AK PERQ DEVICE PLACEMT BREAST LOC 1ST LES W GUIDNCE AK PERQ BREAST LOC DEVICE PLACEMT 1ST [place]IO [place] [id number] [facility] [address] [place] [address] Referral ID Status Reason Start Date Expiration Date Visits Re quested Visits Authorized [id number] 05/19/2021 1 1 Encounter Details Date Type Department Care Team (Latest Contact Info) Description 06/25/2021 6:08 AM CDT - 06/25/2021 11:59 PM CDT Hospital Encounter [facility] Nuclear Medicine Lab Testing [id number] [place] [address] [place] [id number] [facility] [address] [place] [address] Discharge Disposition: Home or Self Care [...] have Coronavirus / COVID-19? No / Unsure 06/25/2021 5:44 AM CDT documented as of this encounter Medications at Time of Discharge Medication Sig Dispensed Refills Start Date End Date blood-glucose meter (BLOOD GLUCOSE MONITOR KIT MISC) Diagnosis: Diabetes type 2 Blood testing frequency: 3 times a day 12/01/2020 ALBUTEROL INHALATION Take 1 Puff by inhalation Continuous as needed. LANCETS [facility] Use as directed 12/01/2020 blood sugar diagnostic [...] as of this encounter Miscellaneous Notes * Treatment Plan - Philomena Mcknight CNMT - 06/25/2021 6:30 AM CDT Images from the original note were not included. [facility] NM Medication and Flush Protocol [facility] Approved by: [facility] - Medical Executive Committee Approval Date: 01/09/2021 ORDERS ARE ENTERED ???PER PROTOCOL?? Enter the protocol in the patient's electronic health record using smartphrase: .imagingnucmedicineprotocol Any printed form of this document is an Uncontrolled Copy and may not be the most current version. Communication Orders: ??? For ordered imaging procedures requiring intravenous access: ??? Initiate a peripheral IV, if not already in place, and discontinue IV prior to discharge (if outpatient). ??? Enter order if needed: Insert Peripheral IV Medication Orders: o Local Anesthetic for use to initiate IV ADULT ??? Lidocaine 4% (L.M.X.4) applied topically ONE TIME prior to IV catheter insertion PRN (L.M.X.4 %should be applied 15 minutes prior to procedure) ??? Chart RBCTAGGINGSTL and/or WBCTAGGINGSTL smartphrase as appropriate PEDIATRIC ??? Lidocaine 4% (L.M.X.4) applied topically ONE TIME prior to IV catheter insertion PRN (apply 15 minutes prior to procedure) ??? Sucrose 24% (Tootsweet; Sweet-Ease) oral solution 0.2 mL oral (apply to tongue on pacifier or clean, gloved finger), ONE TIME 2 minutes prior to painful procedure. May repeat dose x1 PRN to complete procedure. o Sodium chloride 0.9% (normal saline) flush 10 mL PRN for saline lock or medication administration. o For respiratory distress, initiate oxygen and/or increase O2 to maintain saturation greater than 90% Procedure Specific Medications: Adult Procedures & Dosages: o Note: Radiopharmaceuticals dosages with a range are determined by space technologist calibration o Note: In acute Tc99m shortages, radiopharmaceutical dosages may be decreased with approval and documentation within department from biomedical equipment specialist/AU. PROCEDURE DOSAGE Bone Marrow Imaging Oi70f-Onirjjia Sulfur Colloid (Pqcckkoxfo86t- filtered sulfur colloid), Administer 8mCi, IV, ONE TIME. Bone Scan Imaging (Whole Body, Limited, 3-Phase, or SPECT) Wp09s-REC (Sevfaqsldz97e-gkwlvrluc diphosphonate), Administer 25mCi, IV, ONE TIME. OR Rn83i-XGZ (Dzsqrmtiau34i-migdxzmbxfpvmemj diphosphonate), Administer 25mCi, IV, ONE TIME. Page 1 of 17 Version: 5 Brain Imaging Tn88l-CFFY (Cxjbqshzrn09m-hsfnweydtx-edzzeyev- pentaacetate), Administer 20mCi,IV, ONE TIME. Brain SPECT Imaging Wf58w-DHNQJ (Ceretec) (Cemzjqmatx16g- hexamethylpropylene amine oxime), Administer 20mCi, IV, ONE TIME. OR Tl-201 (Thallium Chloride-201), Administer 6mCi, IV, ONE TIME. C14 Urea Breath Test (PY Test) N36-Dkgn (Carbon-14 Urea), Administer 1uCi capsule, Orally, ONE TIME. Cisternogram Imaging In-111 DTPA (Indium-111 diethylene-triamine- pentaacetate), Neuroradiologist to administer 0.5mCi, Intrathecally, ONE TIME. Cystogram Imaging Tc-99m Pertechnetate (Tjxodjavrl32q-dfqcpkxtscvsq) Administer 1mCi Bw84s-nuxtshzanfcxw, intra-butcher catheter, ONE TIME AND Administer NS per calculated expected bladder volume, intra-butcher catheter, ONE TIME. DaTscan Imaging I-123 Ioflupane (Iodine-123 ioflupane), Administer 5mCi, IV, ONE TIME. AND Administer SSKI (Potassium Iodide) drops, 130mg, Orally, ONE TIME 30 minutes prior to radiopharmaceutical injection. Diverticulum/Meckel's Imaging Tc-99m Pertechnetate (Cpjvwriffm14l- pertechnetate), Administer 15mCi,IV, ONE TIME. Esophageal Reflux Imaging Gy44w-Gcrfyn Colloid (Tznvzqytwy71v-cmqnce colloid), Administer 1mCi in 1oz whole milk. Follow with additional 7oz whole milk, Orally, ONE TIME. Ga-67 Citrate - Planar Imaging Ga-67 Citrate (Gallium-67 Citrate), Administer 5mCi, IV, ONE TIME. Ga-67 Citrate - SPECT Imaging Ga-67 Citrate (Gallium-67 Citrate), Administer 10mCi, IV, ONE TIME. Gastric Empty Imaging - Liquid Meal Ck33r-LZKB (Cmqtudbuei80e-cqbcvrtbtm-zyiwndmj- petaacetate), Administer 1mCi in 300mL tap water, Orally, ONE TIME. Gastric Empty Imaging - Solid Meal Tt57w-Fmpdvh Colloid (Lgadswfgsi03y-papjmg colloid), Administer 0.5mCi in 4 oz egg beaters or in 1 package of cooked instant oatmeal, Orally, ONE TIME. GI Bleed Imaging (GI Blood Loss) Tc-99m Pertechnetate (Cmyywaqgbr43k- pertechnetate), Administer 22mCi heparinized RBCs, IV, ONE TIME. Hepatic Blood Pool Imaging Tc-99m Pertechnetate (Oxeislnjdh16u-wwvoxqluouekh), Administer 22mCi heparinized RBCs, IV, ONE TIME. Hepatic Hemangioma Imaging Tc-99m Pertechnetate (Wnymqhummi94n-qpnqgpddfdebl), Administer 22mCi heparinized RBCs, IV, ONE TIME. Hepatobiliary Scan Imaging Tc-99m Mebrofenin (Wurgsdxrro29s-wggtasgpck), Administer 5 mCi IV, ONE TIME *For inpatients only, if bilirubin >5mg/dL, Administer 8 mCi IV, ONE TIME *For inpatients only, if bilirubin > 8mg/dL, consult nuclear medicine physician prior to administering radiopharmaceutical Hepatobiliary Scan with Ejection Fraction Imaging Tc-99m Mebrofenin (Dafjhmdjux71q-pedxgttufu), Administer 5 mCi IV, ONE TIME. *For inpatients only, if bilirubin >5mg/dL, Administer 8 mCi IV, ONE TIME *For inpatients only, if bilirubin > 8mg/dL, consult nuclear medicine physician prior to administering radiopharmaceutical AND For immediate use - Sincalide (Kinevac) 0.02 mcg/kg IV, ONE TIME, diluted with NS to a total infused volume of 30 mL. Infuse via an infusion device over 30 minutes. *If Sincalide unavailable, 240mL (8oz) Ensure Plus, Orally, ONE TIME. Hepatobiliary Scan with Pre- Treatment Imaging Tc-99m Mebrofenin (Odkqjhoidq06c- mebrofenin), Administer 5 mCi IV, ONE TIME. *For inpatients only, if bilirubin >5mg/dL, Administer 8 mCi IV, ONE TIME *For inpatients only, if bilirubin > 8mg/dL, consult nuclear medicine physician prior to administering radiopharmaceutical AND For immediate use - Sincalide (Kinevac) 0.01 mcg/kg IV, ONE TIME, diluted with NS to a total infused volume of 5 mL, Infuse via hand push over 5 minutes. In-111 Dual Isotope Imaging In-111 Oxine (Indium-111 Oxine), Administer at least 300uCi, up to 600uCi, heparanized WBC, IV, ONE TIME. AND Ds28p-KNK (Neckamiwrg43a-hctydefzw diphosphonate), Administer 20mCi for BMI < 35; Administer 25 mCi for BMI >= 35, IV, ONE TIME. OR In-111 Oxine (Indium-111 Oxine), Administer at least 300uCi, up to 600uCi, heparanized WBC, IV, ONETIME. AND Wh26s-Ozjfhzot Sulfur Colloid (Shyvymisxe59e-zisajmwh sulfur colloid), Administer 8mCi, IV, ONE TIME. In-111 WBC Imaging In-111 Oxine (Indium-111 Oxine), Administer at least 300uCi, up to 600uCi, heparanized WBC, IV, ONETIME. Liver/Spleen Imaging Me39h-Lrefzj Colloid (Dkpgxqeveo02w-eqbchd colloid), Administer 5mCi, IV, ONE TIME. Lung Aerosol Perfusion Imaging Tc-99m MAA (Msbqmmqkmm96s-xhwmgkhvwiysima albumin), Administer 5mCi,IV, ONE TIME. Lung Xenon Perfusion Imaging (normal or quantitative) Tc-99m MAA (Jcphawoqhg68b- macroaggregated albumin), Administer 4mCi, IV, ONE TIME. Lung Aerosol Ventilation Imaging Ey02c-RBTW (Ipeolbffnx52z-iezchswimi-idfsglpr- pentaacetate), Administer 40mCi in 2mL NS via aerosol delivery device, Inhalation, ONE TIME. Lung Xenon Ventilation Imaging (normal or quantitative) Xe-133 (Xenon-133), Administer at least 10 mCi, up to 30 mCi, Inhalation, ONE TIME. Lung Perfusion Imaging (normal or quantitative) Tc-99m MAA (Czfuaqhbqh65t- macroaggregated albumin),Administer 4mCi, IV, ONE TIME. Lung Perfusion SPECT Quantitative Tc-99m MAA (Ovqdrmukah54r-fefvnjranokbbdj albumin), Administer 7mCi, IV, ONE TIME Lung Perfusion Imaging - Patient (normal or quantitative) Tc-99m MAA (Sizpheiufz07y-pzambcrgqzgdojo albumin), Administer 2mCi, IV, ONE TIME. Lymphoscintigraphy - Breast Cancer, Next Day Surgery Up19q-Buuamropih (Pglvondmcc64r-nuuodfejyp), Administer 2mCi in 2 divided doses of 1mCi each, intradermal, ONE TIME. Lymphoscintigraphy - Breast Cancer, Same Day Surgery Bd00r-Aivoodbmxf (Lddifrkygq10r-pujrlcmrbs), Administer 0.5mCi in 2 divided doses of 250uCi each, intradermal, ONE TIME. Lymphoscintigraphy - Lymphedema In05q-Dswwocavey (Odbzjvnkps48w-qzzqkstauv), For each extremity, administer 2mCi in 2 divided doses of 1mCi each, subcutaneous, ONE TIME. Lymphoscintigraphy - Head & Neck Cancer, Next Day Surgery Hj56f-Wftdrrwhie (Pbmcprzbqg58y-wtnwjvncsg), Administer 2mCi in 2 divided doses of 1mCi each, intradermal, ONE TIME. Lymphoscintigraphy - Head & Neck Cancer, Same Day Surgery Om88g-Qykgelbfcf (Ikppovvdqf83o-wmlpwckwlu), Administer 0.5mCi in 2 divided doses of 250uCi each, intradermal, ONE TIME. Lymphoscintigraphy - Skin Cancer, Next Day Surgery Hm65x-Uedheiocgk (Ejvqwxnoxb38i-ibjwmrxeax), Administer 2mCi in 4 divided doses of 0.5mCi each, intradermal, ONE TIME. Lymphoscintigraphy - Skin Cancer, Same Day Surgery Bh47o-Bxgiihicqj (Glnedpsuyt55t-qopzwliqnn), Administer 0.5mCi in 4 divided doses of 125uCi each, intradermal, ONE TIME. Lymphoscintigraphy - Skin Cancer, Small Body Area, Next Day Surgery Tc99m- Lymphoseek (Wchhhnazxc64p-dbvhtrgdsx), Administer 2mCi in 2 divided doses of 1mCi each, intradermal, ONE TIME. Lymphoscintigraphy - Skin Cancer, Small Body Area, Same Day Surgery Tc99m- Lymphoseek (Zxjhchytug87i-skghcwjgoj), Administer 0.5mCi in 2 divided doses of 250uCi each, intradermal, ONE TIME. Lymphoscintigraphy - Vulvar Melanoma Next Day Surgery Sg91t-Riamdanuqt (Wkhspbvuub09i-uaushdkkxn), Administer 2mCi in 1 dose, intradermal, ONE TIME. Lymphoscintigraphy - Vulvar Melanoma, Same Day Surgery Di81t-Mbwttyooze (Dszbzrwrgx23l-dmlsmiuuho), Administer 0.5mCi in 1 dose, intradermal, ONE TIME. MIBG Imaging I-123 MIBG (Iodine-123 metaiodobenzylguandidine), Administer 10mCi, IV, ONE TIME. AND Administer SSKI (Potassium Iodide) drops, 130mg, Orally, ONE TIME 30 minutes prior to radiopharmaceutical injection. Microsphere Mapping (Y90 Mapping) Tc-99m MAA (Awbiruipre34e-fjhfjavkvqbpwrr albumin), Interventional Radiologist to administer (1) 2mCi in in 2mL NS, intra- arterial via catheter, ONE TIME. OR Tc-99m MAA (Rgiumtnkrp02r-dzosvajhuotczfo albumin), Interventional Radiologist to administer (2) 2mCi in in 2mL NS, intra-arterial via catheter, ONE TIME. MUGA/RVG Imaging Tc-99m Pertechnetate (Rliarfrwrb38a-xbqsuiwmntnda), Administer 22mCi heparinized RBCs, IV, ONE TIME. Myocardial Amyloid Scintigraphy (Hot PYP Scan) Fz63u-JXC (Thigwdrkcu83z- pyrophosphate), Administer 15mCi, IV, ONE TIME. Myocardial Dual Isotope Imaging Tl-201 (Thallium Chloride-201) AND Ri65s-Ixnuowu (Dxuktnexbc86l-htjmuds), Administer 3mCi Tl-201for resting images, IV, ONE TIME AND Administer Jn05t-Leijvki (Cnbpjvuvhv44r-coyzfmw), for stress images based on patient's weight, IV, ONE TIME. Male or Female Patients: <180lbs: 12mCi Male or Female Patients: 181-240lbs: 15mCi Female Patients 241-265lbs: 18mCi Male Patients 241-330lbs: 18mCi Female Patients >265lbs: 24mCi Male Patients >330lbs: 24mCi Myocardial Planar Imaging (for patients >= table weight limit) Th02f-Lilwkqd (Mmsxisunva62h-Pvqsifg), Administer 30mCi, IV, ONE TIME for rest images, ONE TIME forstress images. Myocardial Rest Imaging - SPECT Imaging Tl-201 (Thallium Chloride-201), Administer 4mCi, IV, ONE TIME. OR Jb43y-Ulkclhg (Qlbzsoccxu07x-Udcmett), Administer 6mCi for female patients ?? 264 lb., IV, ONE TIME. OR Up42k-Rdvohpk (Bxhxkkdaqg31x-Tpozodq), Administer 6mCi for male patients ?? 329 lb., IV, ONE TIME. OR Ux88m-Cuirxoj (Gszwoqlgus37g-Rwdwkom), Administer 8mCi for female patients >= 265-399 lb., IV, ONE TIME. OR Ff57i-Uxmwhxt (Xppntdxpnb72h-Unjtokr), Administer 8mCi for male patients >= 330-399 lb., IV, ONE TIME. OR Lz18j-Opomqzz (Hhelubtldc06f-Ptmpztj), Administer 10mCi for all patients >= 400- 500 lb., IV, ONETIME. Myocardial Stress - SPECT Imaging Ng58w-Cjqwdzb (Wwgdsegokf84f-Ucdbhnb), Administer 18mCi for female patients ?? 264 lb., IV, ONE TIME. OR Rb07f-Lbnuldk (Fqztzlehdr02t-Pbgiizq), Administer 18mCi for male patients ?? 329 lb., IV, ONE TIME. OR Tu81r-Rbkusph (Vkatosszah95f-Vsanwwk), Administer 24mCi for female patients >= 265-399 lb., IV, ONE TIME. OR Ej54o-Crvaidj (Yuydvftqrp97x-Fgelrrd), Administer 24mCi for male patients >= 330-399 lb., IV, ONE TIME. OR In65n-Pzzlpbj (Xwvcolkbsq93h-Wspoonv), Administer 30mCi for all patients >= 400- 500 lb., IV, ONETIME. Myocardial Viability Imaging Tl-201 (Thallium Chloride-201), Administer 3mCi, IV, ONE TIME. AND Administer 1mCi, IV, ONE TIME 3.5 hours post rest injection. Octreoscan In-111 Pentetreotide (Indium-111 Pentetreotide), Administer 6mCi, IV, ONE TIME. Parathyroid Imaging Jz17o-Mfmkrmuqb (Czuuvzczkg09w-piyefelld), Administer 20mCi, IV, ONE TIME. Peritoneal Cavity Scintigraphy Xz39y-Gmpdga Colloid (Kgelfudwnd04n-wnfjuh colloid), Administer 2mCiin 3mL NS, via peritoneal dialysis, ONE TIME. Peritoneovenous Shunt Scintigraphy Tc-99m MAA (Uysnzmgimx70z-kbgcadrcjzavpfw albumin), Physician toadminister 5mCi in 3mL NS, Intraperitoneal, ONE TIME. PET/CT Axumin F-18 Axumin (Iniuksmh50-mhkqcsfqktze), Administer 10mCi, IV, ONE TIME. PET/CT Bone Scan F18-NaF (Vjnuvxfy01-woorbt fluoride), Administer at least 8mCi, up to 11mCi, IV, ONE TIME. PET/CT Brain Imaging (Amyvid) F18- florbetapir [Amyvid??, (E)-4-(2-(6-(2-(2-(2[F-18]- (fluoroethoxy)ethoxy)ethoxy)snvdvfja-1-yd)vinyl)-N- methylbenzamine], Administer 10mCi, IV, ONE TIME. PET/CT Brain Imaging (FDG) F18-FDG (Dfywcqhd25-bnfcyyamztfkvzuft), Administer 10mCi, IV, ONE TIME. PET/CT Dotatate Imaging Ga-68 Dotatate (Gallium-68 Dotatate), Administer 5.4mCi, IV, ONE TIME. PET/CT Dotatate Imaging Cu-64 Detectnet (Copper-64 Dotatate), Administer 4mCi, IV, ONE TIME. PET/CT Myocardial Scan (Sarcoidosis or Viability) F18-FDG (Yyptdiny80- flurodeoxyglucose), Administer 0.11mCi/kg with at least 8mCi, up to 17mCi, IV, ONE TIME. Renal Scintigraphy (ERIC-Inhibitor Renal Scan) Qc85t-GDY7 (Ofjgoibvbk19g- mercaptoacetyltriglcine), Administer 5mCi, IV, ONE TIME. AND Administer Enalaprilat (Vasotec) 2.5mg, IV, ONE TIME. Dilute to 5mL total volume with normal salineand infuse via hand push injection over 5 minutes. OR Administer Captopril, 50mg capsule crushed and dissolved in 150mL tap water, Orally, ONE TIME. Renal Scintigraphy (Cortical Imaging) Rl95a-ZQAE (Eazgsknbwp60v- dimercaptosuccinic acid), Administer 5mCi, IV, ONE TIME. Renal Scintigraphy (Diuretic Renal Scan) Lf76q-KNRF (Semktwltbw00a-esmxiqaziu-ankrjoqw- pentaacetate), Administer 5mCi, IV, ONE TIME. AND Administer Lasix (furosemide) 40mg, IV push over 2 minutes, ONE TIME. OR Ba59e-CUZ1 (Ebzuqooibm74l-wvpmuwwrleovwertkslirdf), Administer 5mCi, IV, ONE TIME. AND Administer Lasix (furosemide), 40mg, IV push over 2 minutes, ONE TIME. Renal Scintigraphy (Flow and Function Scan) Of71o-CPUI (Amzwbnpqkl50h-ccnaoozonc-rkwwnpti- pentaacetate), Administer 5mCi, IV, ONE TIME. OR Gy09q-KQQ2 (Wcxssebtnb90v-cplviqeousetcnfmfmbfcuy), Administer 5mCi, IV, ONE TIME. Renal Scintigraphy (Renal Transplant Scan) Ov48b-OHDP (Vaulrqdtzi15a-npmlpuxdlw-auahajob- pentaacetate), Administer 5mCi, IV, ONE TIME. OR Ht43i-PKD3 (Ulcqwbqdhk79j-zmjwklywnnadgebxzadolmd), Administer 5mCi, IV, ONE TIME. Salivary Imaging Tc-99m Pertechnetate (Nxbehccxzi93p-jedfulepzevpa), Administer 5mCi, Orally, ONE TIME. Shunt Patency Imaging (CSF Shunt Imaging) Vm80f-FJPW (Aucenjzsfa97j-xxhetyinao-vdwlescz- pentaacetate), Neurosurgeon or neurosurgeon's PA to administer 0.5mCi, intra-shunt reservoir, ONE TIME. Splenic Imaging Tc-99m Pertechnetate (Upfetcqvfw33o-vtgciznrxcxpm), Administer 6mCi heparinized, heat damaged RBCs, IV, ONE TIME. Hr25v-NKY Imaging Lj86b-Nabloxk (Lhwxlcbpox71n-Vbykfdu), Administer 15mCi heparinized WBC, IV, ONE TIME. Thyrogen Injection Thyrogen (thyrotopin vinod), Administer 0.9mg, deep IM, every 24 hours for 2 doses. Thyroid Imaging Tc-99m Pertechnetate (Isdhmmqsiv34d-xorrpqccpaeua), Administer 10mCi, IV, ONE TIME. OR I-123 Na Iodide (Iodide-123 Na Iodide), Administer 200 uCi capsule, Orally, ONE TIME. Thyroid Scan & Uptake I-123 Na Iodide (Iodide-123 Na Iodide), Administer 200 uCi capsule, Orally, ONE TIME. Thyroid Uptake I-123 Na Iodide (Iodide-123 Na Iodide), Administer 200 uCi capsule, Orally, ONE TIME. OR I-131 Na Iodide (Iodide-131 Na Iodide), Administer at least 5 uCi, up to 25 uCi, Orally, ONE TIME. Whole Body I-123 Imaging I-123 Na Iodide (Iodide-123 Na Iodide), Administer 2.5 mCi capsule, Orally, ONE TIME. Whole Body I-131 Imaging I-131 Na Iodide (Iodide-131 Na Iodide), Administer 3 mCi capsule or solution, Orally, ONE TIME. Pediatric Procedures & Dosages: o Note: Radiopharmaceuticals dosages with a range are determined by space technologist calibration o Note: In acute Tc99m shortages, radiopharmaceutical dosages may be decreased with approval and documentation within department from biomedical equipment specialist/AU. PROCEDURE DOSAGE Bone Marrow Imaging Cw44l-Spfdmabx Sulfur Colloid (Esezzyrzhc91e-dsgfyvao sulfur colloid), Administer 0.14mCi/kg with at least 1mCi, up to 8mCi, IV, ONE TIME. Bone Scan Imaging (Whole Body, Limited, 3-Phase, or SPECT) Kt27u-QUF (Ullimejykr92r-jibeqftrj diphosphonate), Administer 0.25mCi/kg with at least 1mCi, up to 25mCi, IV, ONE TIME. OR Ih74f-IGH (Oymsgmaqhg54x-tkhvwfiioacxurws diphosphonate), Administer 0.25mCi/kg with at least 1mCi,up to 25mCi, IV, ONE TIME Brain Imaging Mq83n-TBUQ (Vnjpptosod29q-jpdaczhgzz-ekqwjuef- pentaacetate), Administer 0.3mCi/kg with at least 5mCi, up to 20mCi, IV, ONE TIME. Brain SPECT Imaging Ph14o-GVAAD (Ceretec) (Aeqdjpfdls45o- hexamethylpropylene amine oxime), Administer 0.3mCi/kg with at least 3mCi, up to 20mCi, IV, ONE TIME. C14 Urea Breath Test (PY Test) H68-Cfwp (Carbon-14 Urea), Administer 1uCi capsule, Orally, ONE TIME. Cisternogram Imaging In-111 DTPA (Indium-111 uipepfvqdx-ybfujvah-vgbrhhtpypps), Neuroradiologist to administer 0.07mCi/kg with at least 0.1mCi, up to 0.5mCi, Intrathecally, ONE TIME. Cystogram Imaging Tc-99m Pertechnetate (Srpeldnhee91n-vjzjlotzwqoeq) Administer 1mCi, intra-butcher catheter, ONE TIME AND Administer NS per calculated expected bladder volume, intra- butcher catheter, ONE TIME. Diverticulum/Meckel's Imaging Tc-99m Pertechnetate (Dendqqjdmz91u- pertechnetate), Administer 0.05mCi/kg with at least 0.25mCi, up to 15mCi, IV, ONE TIME. Esophageal Reflux Imaging - <1yoa Hg97p-Tplvjx Colloid (Daqlezaadw72u-phztez colloid), Administer 0.1mCi for patients <3.5lb., Orally, ONE TIME. OR Administer 0.2mCi for patients 3.5-6.5lb., Orally, ONE TIME. OR Administer 0.3mCi for patients >6.5lb., Orally, ONE TIME. *For all administrations, determine amount of formula or breast milk patient consumes in 1 hour by dividing their normal feed amount by 4. Then, take this calculated amount and divide into 2 so that you can tag ?? with the radiopharmaceutical and feed the remaining ?? 'cold'; feed the infant radioactive labeled formula/milk and then 'cold' formula/milk over a 10-minute total period of time. Esophageal Reflux Imaging - >1yoa Za14x-Scbykz Colloid (Mdedqkymob90r-wspjkb colloid), Administer 0.5mCi in 1 oz whole milk, Orally, ONE TIME. Follow with 7 oz whole milk. Ga-67 Citrate - Planar Imaging Ga-67 Citrate (Gallium-67 Citrate), Administer 0.07mCi/kg with at least 0.5mCi, up to 5mCi, IV, ONE TIME. Ga-67 Citrate - SPECT Imaging Ga-67 Citrate (Gallium-67 Citrate), Administer 0.14mCi/kg with at least 1mCi, up to 10mCi, IV, ONE TIME. Gastric Empty Imaging - Liquid Meal En51l-Mxtpad Colloid (Tcuvkqhjkt12m-ybcryh colloid), Administer7 uCi/kg with at least 250uCi, up to 500uCi, Orally, ONE TIME. *For all administrations, determine amount of formula or breast milk patient consumes in 1 hour by dividing their normal feed amount by 4. Then, take this calculated amount and divide into 2 so that you can tag ?? with the radiopharmaceutical and feed the remaining ?? 'cold'; feed the radioactive labeled formula/milk and then 'cold' formula/milk over a 10-minute total period of time.OR Vb36c-HAHH (Deuuhdnqiq83z-krwzahotyd-flbgaeqq- petaacetate), Administer 1mCi in 300mL tap water, Orally, ONE TIME. *Follow Ef09f-SHMM dosing if the pediatric patient is not an and consumes water. Gastric Empty Imaging - Solid Meal Ll33e-Idhlsi Colloid (Cdcyqssdft63f-esupqf colloid), Administer 7uCi/kg with at least 250uCi, up to 500uCi in 4 oz egg beaters or in 1 package of cooked instant oatmeal, Orally, ONE TIME. GI Bleed Imaging (GI Blood Loss) Tc-99m Pertechnetate (Dfxxpuryqu63g- pertechnetate), Administer 0.32mCi heparinized RBCs with at least 2mCi, up to 22mCi, IV, ONE TIME. Hepatic Blood Pool Imaging Tc-99m Pertechnetate (Nkczixwftc65f-sllzbutrjdmzx), Administer 0.32mCi heparinized RBCs with at least 2mCi, up to 22mCi, IV, ONE TIME. Hepatic Hemangioma Imaging Tc-99m Pertechnetate (Rkgrhobjdn35n-pbkgdfsfbzhzn), Administer 0.32mCi heparinized RBCs with at least 2mCi, up to 22mCi, IV, ONE TIME. Hepatobiliary Scan Imaging Tc-99m Mebrofenin (Gxiwmgjxiz10y-gyjiliyxzy), Administer 0.05mCi/kg withat least 0.5mCi, up to 5mCi, IV, ONE TIME *For inpatients only, if bilirubin >5mg/dL, Administer 0.08mCi/kg with at least 1mCi, up to 8mCi, IV, ONE TIME *For inpatients only, if bilirubin > 8mg/dL, consult nuclear medicine physician prior to administering radiopharmaceutical Hepatobiliary Scan Imaging for in Jaundice Tc-99m Mebrofenin (Psohwkfxao71d-ttsgzchhec), Administer 0.08mCi/kg with at least 1mCi, up to 8mCi, IV, ONE TIME AND Administer Phenobarbital 5mg/kg/day (may be administered in 2 divided doses) for 5 days prior to imaging, IV, ONE TIME PER DAY. Hepatobiliary Scan with Ejection Fraction Imaging Tc-99m Mebrofenin (Gvntxotcnk33v-clfeubhffh), Administer 0.05mCi/kg with a at least 0.5mCi, up to 5mCi IV, ONE TIME *For inpatients only, if bilirubin >5mg/dL, Administer 0.08mCi/kg with at least 1mCi, up to 8mCi, IV, ONE TIME *For inpatients only, if bilirubin > 8mg/dL, consult nuclear medicine physician prior to administering radiopharmaceutical AND For immediate use - Sincalide (Kinevac) 0.02 mcg/kg IV, ONE TIME, diluted with NS to a total infused volume of 30 mLs. Infuse via an infusion device over 30 minutes. *If Sincalide unavailable, 3.5ml/kg, up to 240mL (8oz) Ensure Plus, Orally, ONE TIME. Hepatobiliary Scan with Pre- Treatment Imaging Tc-99m Mebrofenin (Sxyioumadc04m- mebrofenin), Administer 0.05mCi/kg with a at least 0.5mCi, up to 5mCi IV, ONE TIME *For inpatients only, if bilirubin >5mg/dL, Administer 0.08mCi/kg with at least 1mCi, up to 8mCi, IV, ONE TIME *For inpatients only, if bilirubin > 8mg/dL, consult nuclear medicine physician prior to administering radiopharmaceutical AND For immediate use - Sincalide (Kinevac) 0.01 mcg/kg IV, ONE TIME, diluted with NS to a total infused volume of 5 mL, Infuse via hand push over 5 minutes. In-111 Dual Isotope Imaging In-111 Oxine (Indium-111 Oxine), Administer 5uCi/kg with at least 300uCi, up to 500uCi, heparanized WBC, IV, ONE TIME. AND Ze04o-QKJ (Iiwbraomdk81z-ysbtikwea diphosphonate), Administer 0.25mCi/kg with at least 1mCi, up to 20mCi, IV, ONE TIME. OR In-111 Oxine (Indium-111 Oxine), Administer 5uCi/kg with at least 300uCi, up to 500uCi, heparanizedWBC, IV, ONE TIME. AND Eq77y-Cjmpmzyn Sulfur Colloid (Gcvmmtjkxx68t-vpsktfed sulfur colloid), Administer 0.14mCi/kg with at least 1mCi, up to 8mCi, IV, ONE TIME. In-111 WBC Imaging In-111 Oxine (Indium-111 Oxine), Administer 5uCi/kg with at least 300uCi, up to 500uCi, heparanized WBC, IV, ONE TIME. Liver/Spleen Imaging Hy42n-Ogrbqh Colloid (Gdocmrcpqq91n-csvpwc colloid), Administer 0.05mCi/kg with at least 0.5mCi, up to 5mCi, IV, ONE TIME. Lung Aerosol Perfusion Imaging Tc-99m MAA (Imdnivuuaz21o-dqgnjtrjxrvxdex albumin), Administer 0.03mCi/kg, with at least 0.4mCi, up to 4mCi IV, ONE TIME. Lung Xenon Perfusion Imaging (normal or quantitative) Tc-99m MAA (Xnegitinzq49s- macroaggregated albumin), Administer 0.03mCi/kg, with at least 0.4mCi, up to 4mCi IV, ONE TIME. Lung Aerosol Ventilation Imaging Ti07q-EBDL (Fgheogavik94m-gjnblxmbzb-njibwgzl- pentaacetate), Administer 40mCi in 2mL NS via aerosol delivery device, Inhalation, ONE TIME. Lung Xenon Ventilation Imaging (normal or quantitative) Xe-133 (Xenon-133), Administer 10 mCi, inhalation, ONE TIME. Lung Perfusion Imaging (normal or quantitative) Tc-99m MAA (Bbegkdwayx89p- macroaggregated albumin),Administer 0.03mCi/kg, with at least 0.4mCi, up to 4mCi IV, ONE TIME. Lung Perfusion Imaging - Patient (normal or quantitative) Tc-99m MAA (Gzuabkqstw24r-zochpdktefugutr albumin), Administer 0.03mCi/kg, with at least 0.4mCi, up to 2mCi IV, ONE TIME. MIBG Imaging I-123 MIBG (Iodine-123 metaiodobenzylguandidine), Administer 0.14mCi/kg with at least 1mCi, up to 10mCi, IV, ONE TIME AND Administer SSKI (Potassium Iodide) drops 30 minutes prior to radiopharmaceutical injection. * to 1 month: 16mg, Orally, ONE TIME. * 1 month to 3 years of age: 32mg, Orally, ONE TIME. * Greater than 3 years to 17 years of age: 65mg, Orally, ONE TIME. MUGA/RVG Imaging Tc-99m Pertechnetate (Kfsnyipkpd55o-adrfphnqlfwni), Administer 0.32mCi/kg heparinized RBCs with at least 2mCi, up to 22mCi, IV, ONE TIME. Myocardial Amyloid Scintigraphy (Hot PYP Scan) Im87n-ABD (Yngtrkfzcm45w- pyrophosphate), Administer 0.28mCi/kg, with at least 2.5mCi, up to 15mCi IV, ONE TIME. Myocardial Rest Imaging - SPECT Imaging La33b-Hsdrwwz (Ugxnfldily39u-Zxquwee), Administer 0.15mCi/kg, with at least 2mCi, up to 8mCi IV, ONE TIME. Myocardial Stress Imaging - SPECT Imaging Zo18q-Irjzluy (Rczpfzupsn23f-Vpydxtt), Administer 0.45mCi/kg, with at least 6mCi, up to 24mCi IV, ONE TIME. Octreoscan In-111 Pentetreotide (Indium-111 Pentetreotide), Administer 0.08mCi/kg with at least 1mCi, up to 6mCi, IV, ONE TIME. Parathyroid Imaging Zs51n-Vrzknjqle (Pqnasrzdxe19m-wocnzanki), Administer 0.25mCi/kg, with at sytxb6iCi, up to 20mCi IV, ONE TIME. Peritoneal Cavity Scintigraphy Jd46g-Vtjmsg Colloid (Lcpcfpezmz16w-onbsoy colloid), Administer 0.07mCi/kg in 2mL NS with at least 1mCi, up to 2mCi, via peritoneal dialysis, ONE TIME. Peritoneovenous Shunt Scintigraphy Tc-99m MAA (Hxgxmmqyxx40c-yolnayhpjzdqmyd albumin), Physician toadminister 0.07mCi/kg with at least 1mCi, up to 5mCi in 2mL NS, Intraperitoneal, ONE TIME. PET/CT Bone Scan F18-NaF (Ihllfxzg86-mylobg fluoride), Administer 0.11mCi/kg with at least 2mCi, upto 11mCi, IV, ONE TIME. PET/CT Brain Imaging (FDG) F18-FDG (Vqbiiuyb06-ddjtwjrcozggrpwfo), Administer 0.10mCi/kg with at least 2mCi, up to 10mCi, IV, ONE TIME. PET/CT Limited, Standard, or Whole- Body Oncology Imaging F18-FDG (Eawppayb04- flurodeoxyglucose), Administer 0.11mCi/kg with at least 2mCi, up to 10mCi, IV, ONE TIME. PET/CT Dotatate Imaging Ga-68 Dotatate (Gallium-68 Dotatate), Administer 0.054mCi/kg up to 5.4mCi, IV, ONE TIME. (Minimum dose determined by AU). Renal Scintigraphy (ERIC-Inhibitor Renal Scan) Xf46y-UOD4 (Vosbgexlab81u- mercaptoacetyltriglcine), Administer 0.1mCi/kg with at least 1mCi, up to 5mCi, IV, ONE TIME. AND Administer Enalaprilat (Vasotec) 0.04mg/kg with a maximum dose of 2.5mg, IV, ONE TIME. Dilute to 5mL total volume with normal saline and infuse via hand push over 5 minutes. Renal Scintigraphy (Cortical Imaging) Xn91w-SKVM (Mkjzsmshvq45q- dimercaptosuccinic acid), Administer 0.05mCi/kg with at least 0.5mCi, up to 5mCi, IV, ONE TIME. Renal Scintigraphy (Diuretic Renal Scan) Gf49u-WNUY (Opjydiujls56w-kdlqgdjcux-zyjskobi- pentaacetate), Administer 0.2mCi/kg with at least 2mCi, up to 5mCi, IV, ONE TIME. AND Administer Lasix (furosemide), 1mg/kg, up to 40mg, IV push over 2 minutes, ONE TIME. A reduced dosage of 0.5mg/kg may be used per direction of nuclear medicine physician. OR Hp11q-KAZ8 (Uglxdobfns12y-aicivmixhgtuafsbcispkhd), Administer 0.1mCi/kg with at least 1mCi, up to 5mCi, IV, ONE TIME. AND Administer Lasix (furosemide), 1mg/kg, up to 40mg, IV push over 2 minutes, ONE TIME. A reduced dosage of 0.5mg/kg may be used per direction of the nuclear medicine physician. Renal Scintigraphy (Flow and Function Scan) Wl62d-TOLH (Obkoatvulp22e-oorvcopiio-yzswlikj- pentaacetate), Administer 0.2mCi/kg with at least 2mCi, up to 5mCi OR Aj64s-MSC7 (Foffghepbc12g-mgjmnfzipqssvsnmazilnje), Administer 0.1mCi/kg with at least 1mCi, up to 5mCi, IV, ONE TIME. Renal Scintigraphy (Renal Transplant Scan) Wa49o-FXOL (Gwgtclqlbt24t-rgrkjpmdtv-mowztaft- pentaacetate), Administer 0.2mCi/kg with at least 2mCi, up to 5mCi OR Do26e-UZM5 (Wmsfollwiw61g-hxhgnmucsfejdhrqvzhzwxm), Administer 0.1mCi/kg with at least 1mCi, up to 5mCi, IV, ONE TIME. Salivary Imaging Tc-99m Pertechnetate (Kmeprxkuby81i-tafmylgkmcfjh), Administer 0.05mCi/kg with at least 0.25mCi, upto 5mCi, Orally, ONE TIME. Shunt Patency Imaging (CSF Shunt Imaging) To96q-JBWP (Ysdvdtgeoe75v-ymbjiyzleo-kkbbmlid- pentaacetate), Neurosurgeon or neurosurgeon's PA to administer 0.01mCi/kg with at least 0.4mCi, up to 0.5mCi, intra-shunt reservoir, ONE TIME. Splenic Imaging Tc-99m Pertechnetate (Dbiiepixqb85t-gqsgyolfbhhoy), Administer 0.03mCi/kg with at least 0.5mCi, up to 6mCi heparinized, heat damaged RBCs, IV, ONE TIME. On42w-ABE Imaging Ae72t-Fhnhvgf (Aqrlovwvbd50e-Jgpfwow), Administer 0.2mCi/kg with at least 2mCi, up to 15mCi, heparinized WBC, IV, ONE TIME. Thyroid Imaging Tc-99m Pertechnetate (Mdqfnnfhct59a-ldxunhhtiqqwv), Administer 0.07mCi/kg with at least 1mCi, up to 10mCi, IV, ONE TIME. Thyroid Scan & Uptake I-123 Na Iodide (Iodide-123 Na Iodide), Administer dosage per treating AU& fill out special prescription form, Orally, ONE TIME. Thyroid Uptake I-123 Na Iodide (Iodide-123 Na Iodide), Administer dosage per treating AU & fillout special prescription form, Orally, ONE TIME. OR I-131 Na Iodide (Iodide-131 Na Iodide), Administer dosage per treating AU & fill out special prescription form, Orally, ONE TIME. Whole Body I-131 Imaging I-131 Na Iodide (Iodide-131 Na Iodide), Administer 0.07uCi/kg, up to 3mCi capsule or solution (minimum dose per treating AU), Orally, ONE TIME. documented in this encounter Plan of Treatment Upcoming Encounters Date Type Department Care Team (Late st Contact Info) Description 02/12/2025 1:00 PM CDT Office Visit [facility] Oncology and Hematology - [address] [phone] Aaron Smith MD [address] [facility] [address] [place] [phone] 03/29/2025 12:30 PM CDT Appointment [facility] [address] [place] [address] [place] [address] [facility] [address] [place] [address] 03/29/2025 1:30 PM CDT Office Visit [facility] Breast Surgery [address] [address] [facility] [address] [place] [address] [place] [address] [facility] [address] [place] [address] documented as of this encounter Procedures Procedure Name Priority Date/Time Associated Diagnosis Comments NM LYMPHOSCINTIGRAPHY Routine 06/25/2021 7:01 AM CDT 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, estrogen receptor positive documented in this encounter Results * NM LYMPHOSCINTIGRAPHY (06/25/2021 7:01 AM CDT) Anatomical Region Laterality Modality Nuclear Medicine 06/25/2021 7:01 AM CDT Impressions 06/25/2021 8:05 AM CDT IMPRESSION: ?? 1. Lymphoscintigraphy of left breast. 2. Visualization of left axillary sentinal node. DICTATION LOCATION: Location 1 - [facility] Narrative 06/25/2021 8:05 AM CDT NM LYMPHOSCINTIGRAPHY [...] sentinel node is visualized. ? Procedure Note Chvaa Ortiz DO - 06/25/2021 NM LYMPHOSCINTIGRAPHY DATE: [...] left axillary sentinal node. DICTATION LOCATION: Location 1 - [facility] Chayo Zepeda MD LA ORDERABLES documented in this encounter Visit Diagnoses Diagnosis 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, estrogen receptor positive documented in this encounter Care Teams Button Grader Relationship Specialty Start Date End Date Rosa Shi MD [address] [place] [id number] PCP - General Family Practice 01/15/21 documented as of this encounter
--- OUTSIDE RECORDS SUMMARY | 2024-10-23 02:18 | XMS_ITS | Encounter Summary ---
Author Organization [facility] Address [address] [place] [address] Care Team Providers Care Stick Roller Name Role Phone Kevin Shi MD Primary Care Provider Reason for Visit * Auth/Cert Specialty Diagnoses / Procedures Referred By Contac t Referred To Contact Diagnoses 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, estrogen receptor positive 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, estrogen receptor positive [C50.012, Z17.0] Procedures WA MASTECTOMY, PARTIAL WA BX/REMV,LYMPH NODE,DEEP AXILL CHG LYMPHATICS & LYMPH GLANDS IMAGING WA REMOVE ARMPITS LYMPH NODES COMPLT WA PERQ DEVICE PLACEMT BREAST LOC 1ST LES W GUIDNCE WA PERQ BREAST LOC DEVICE PLACEMT 1ST [place] [address] [place] [id number] Referral ID Status Reason Start Date Expiration Date Visits Re quested Visits Authorized [id number] 05/19/2021 1 1 Encounter Details Date Type Department Care Team (Latest Contact Info) Description 06/25/2021 5:45 AM CDT - 06/25/2021 1:54 PM CDT Hospital Encounter [facility] [place] [place] [place] [address] [place] [address] [facility] [address] [place] [address] 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, estrogen receptor positive Discharge Disposition: Home or Self Care Social [...] Sign Reading Time Taken Comments Blood Pressure 152/76 06/25/2021 1:25 PM CDT Pulse 93 06/25/2021 1:30 PM CDT Temperature 36.6 ??C (97.9 ??F) 06/25/2021 11:47 AM C DT Respiratory Rate 14 06/25/2021 1:25 PM CDT Oxygen Saturation 97% 06/25/2021 1:30 PM CDT Inhaled Oxygen Concentration - - Weight 94.3 kg (208 lb) 06/25/2021 6:19 AM CDT Height 157.5 cm (5' 2 ) 06/25/2021 6:19 AM CDT Body Mass Index 38.04 06/25/2021 6:19 AM CDT documented in this encounter Discharge Instructions * Discharge Instructions* Christiano Shankar MD - 06/25/2021 11:53 AM CDT [facility] BRE[facility] SURGERY [id number] [address] Post operative instructions: Activity: _x__Walk around every [...] to resume aspirin and blood thinners _x__ I recommend trying to take over the counter Tylenol/Acetaminophen and Advil/Ibuprophen (generic brand is OK) for your primary pain control, and using the prescription strength narcotic for breakthrough 9 out of 10 pain. _x__ A routine that works well for most of my patients is to take Tylenol 500 mg first thing in themorning, then 3 hours later take 2 or 3 Advil 200mg (total of 400-600mgs), then 3 hours later take Tylenol 500mg, and 3 hours after that take Advil. Continue this throughout the day. OK to supplementfor break through pain with [place]/ Hydrocodone 5mg / Acetaminophen 500mg. Do not take more than 3000mg of Tylenol/ Acetaminophen in a 24 hour period, and don't take more than 1000mg of Acetaminophen at a time. _x__Narcotics can cause constipation, and nausea. Take 1 tablespoon of Metamucil (over the counter fiber) after dinner with a large glass of water. _x__OK to take over the counter stool softeners, and laxatives as needed to have a normal bowel movement. _x__Drink plenty of water over the first couple of days to keep from getting dehydrated and keep your stools soft. _x__No driving or operating machinery while taking narcotics or valium or sedatives. _x__Do not take or mix prescription narcotics with other narcotics, alcohol, or sedatives. _x__OK to take over the counter Benadryl tablets for nausea and insomnia. Diet: _x__ Resume a regular diet as tolerated _x__ Encourage fluids to avoid constipation Follow up Care: _x__ Your doctors office will call within 5-7 days of surgery with pathology results and post operative appointments. _x__ Results for sentinel lymph nodes will take up to 5 days _x__ May call the office if you have not heard from us. Special Instructions: _x__ May remove outer dressing tomorrow _x__ Glue dressing intact, will begin to flake off in 7-10 days _x__ Ok to shower today _x__ Recommend wearing a supportive bra / x 7 days at minimum _x__ May use ice bag or warm compresses on incision for minor swelling and discomfort _x__ Call office or exchange if fever, redness, swelling, drainage PLEASE EMAIL IN 2 DAYS VIA MY [facility]: - TO LET ME KNOW HOW YOU ARE DOING - TO LET ME KNOW IF YOU NEED REFILLS - ANY PROBLEMS OR QUESTIONS If you have any questions, please call the office at between the hours of 9AM and 4PMMond through Wednesday. After hours for emergencies, you may call this number to be connected to [facility] service. Chirstiano Shankar MD Breast Surgical Oncology documented in this encounter Medications at Time [...] 01/16/2021 10/20/2021 documented as of this encounter H&P Notes * Christiano Shankar MD - 06/25/2021 8:20 AM CDT 06/25/2021 H&P has been reviewed. The patient has been examined. There are no changes. Plan for a left breast needle localized lumpectomy with axillary lymph node staging (localized axillary lymph node). Christiano Shankar MD 8:20 AM PATIENT: Kevin Chakraborty : 1965 DATE: 06/25/2021 Breast Cancer, LEFT UIQ Clinical Stage IIB (T2 N1 Mx) Date of Diagnosis: 12/23/2020 Path: Left breast US guided core biopsy - invasive ductal carcinoma, intermediate grade. US guided core of satellite nodule 8 mm: IDC, and bx additional nodule: IDC ER positive (80%), WA weakly positive (1-5%), HER2 2+ equivocal (FISH - amplified) - positive. Surgeon(s): [facility]: Med Onc: Dr. Smith Chemo: neoadjuvant TCHP x 6 cycles (February 12 - completed May 28, 2021) Rad Onc: Dr. Jacobo Radiation: Antiestrogen Therapy: Genetic testing: Kevin Chakraborty is a 55 y.o. female, -Omani, presents today to discuss surgical options as she nears completion of neoadjuvant chemotherapy for her left breast cancer. Her final cycle is scheduled May 28 and she still is hoping to pursue breast conservation surgery if possible. She reports she can no longer feel her left breast cancer, after a few cycles of chemotherapy. She has been tolerating chemotherapy, although with significant peripheral neuropathy. She presents with her son today for extra support. 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 She is . She drinks a rare amount. She is a non-smoker. She is heretoday with her brother to discuss surgical options. 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 Asthma ??? Depression ??? Diabetes mellitus ??? Endometriosis ??? Fibroids ??? High cholesterol ??? HTN (hypertension) PSH: Past Surgical History: Procedure Laterality Date ??? HX SECTION ??? HX HYSTERECTOMY ??? HX SURGICAL OTHER 2007 vulvar lichen sclerosis ? ? 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 TONSILLECTOMY ALLERGY: No Known Allergies MEDS: Current Facility-Administered Medications Medication Dose Route Frequency Provider Last Rate Last Admin ??? lactated ringers infusion IV pre-proc continuous Christiano Shankar MD ??? lidocaine PF 2% (XYLOCAINE MPF) injection 0.3 mL 0.3 mL Infiltration pre- proc one time Christiano Shankar MD ??? lactated ringers infusion IV post-proc continuous Tay Melgar, DO ??? fentaNYL PF (SUBLIMAZE) 50 mcg/mL injection 50 mcg 50 mcg IV post-proc every 3 minutes PRN Tay Melgar, DO ??? HYDROmorphone (DILAUDID) 2 mg/mL injection 0.6 mg 0.6 mg IV post-proc every 5 minutes PRN Tay Melgar, DO ??? naloxone (NARCAN) 0.4 mg/mL injection 0.1 mg 0.1 mg IV see admin instructions Lakhwinder Melgar, DO ??? ondansetron (ZOFRAN) 4 mg/2 mL injection 4 mg 4 mg IV post-proc one time PRN Tay Melgar, DO ??? prochlorperazine (COMPAZINE) injection 5 mg 5 mg IV post-proc one time PRN Tay Melgar,DO ??? diphenhydrAMINE (BENADRYL) injection 12.5 mg 12.5 mg IV post-proc one time PRN Tay Melgar, DO ??? [COMPLETED] acetaminophen (TYLENOL) tablet 975 mg 975 mg Oral ONE time only Tay Melgar, DO 975 mg at 06/25/21 0630 ??? ceFAZolin in sterile water (ANCEF) 2 [...] level: Not on file Occupational History Employer: [employer] Tobacco Use ??? Smoking status: Never Smoker ??? Smokeless tobacco: Never Used Vaping Use ??? Vaping Use: Never used Substance and Sexual Activity ??? Alcohol use: Yes Comment: 1/week ??? Drug use: No ??? Sexual activity: Yes Partners: Male Comment: YEHUDA Other Topics Concern ??? Not on file Social History Narrative ??? Not on file Social Determinants of Health Financial Resource Strain: ??? Difficulty of Paying Living Expenses: Food Insecurity: ??? Worried About Running Out of Food in the Last Year: ??? Ran Out of Food in the Last Year: Transportation Needs: ??? Lack of Transportation (Medical): ??? Lack of Transportation (Non-Medical): Physical Activity: ??? Days of Exercise per Week: ??? Minutes of Exercise per Session: Stress: ??? Feeling of Stress : Social Connections: ??? Frequency of Communication with Friends and Family: ??? Frequency of Social Gatherings with Friends and Family: ??? Attends Latter Day Services: ??? Active Member of Clubs or Organizations: ??? Attends Club or Organization Meetings: ??? Marital Status: Intimate Partner Violence: ??? Fear of Current or Ex-Partner: ??? Emotionally Abused: ??? Physically Abused: ??? Sexually Abused: BP 138/62 (BP Location: Right arm, Patient Position (BP): Supine) Pulse 78 Temp 97 ??F (36.1 ??C) (Temporal) Resp 21 Ht 5' 2 (1.575 m) Wt 94.3 kg (208 lb) SpO2 99% BMI 38.04 kg/m?? PHYSICAL EXAM: Well-developed, well-nourished, pleasant woman. Anxious. Pleasant woman Neck - no thyromegaly no cervical adenopathy Resp - no labored breathing, no wheezing CV - regular rate, 2+ pulses Right port intact. SCF- no adenopathy Axilla -no adenopathy Breasts - Right breast:normal in appearance, no masses, skin changes or nipple discharge Left breast: palpable solid irregular mass non-tender at periareolar inner quadrant at 9:00, close to base of nipple, significantly smaller then previous exam - now a pea-size, no nipple discharge, no axillary LAD. Abdomen - liver and spleen not palpably enlarged Extremities - Good range of motion of shoulders, no lymphedema present IMAGING: I personally reviewed the following films: Mammogram: 08/22/2020 ([place], [place]) - left breast UOQ posterior depth with mass measures 2.8 x 2.1 cm, stable. Left breast ultrasound: 12/18/2020 ([place], [place]) - newly palpable left breast periareolar 9:00 irregular mass, measures 1.2 cm. BIRADs 4. Left breast US guided core biopsy - 12/23/2020 - invasive ductal carcinoma, intermediate grade ER positive (80%), WA weakly positive (1-5%), HER2 2+ equivocal (FISH [...] cm. Right breast - negative IMPRESSION /PLAN: 55 y.o. postmenopausal -Omani woman with palpable left breast invasive carcinoma, triple positive. Clinical Stage T1-2 cN0 Mx cancer of the left breast. She is completing upfront HER2 directed chemotherapy with TCHP, and will completed final cycle on May 28, 2021. - I reviewed surgical options including lumpectomy versus mastectomy and the role of sentinel lymphnode biopsy. I explained that for all comers, lumpectomy and mastectomy were equivalent in treatingsingle site breast cancers. - I reviewed the possibilities to undergo a mastectomy, that may include a unilateral or bilateral (right prophylactic) mastectomy, with or without plastic reconstruction. We discussed she would not be a candidate for a nipple areolar sparing, given the close proximity to the base of the nipple. - I reviewed the role of sentinel lymph node biopsy with injection of blue dye at the time of surgery, in addition to a radioisotope injection per nuclear medicine the day of surgery or the day prior. We discussed if her lymph nodes had significant disease, then she would require a completion axillary lymph node dissection. - I have ordered a repeat left breast ultrasound to evaluate her response to chemotherapy and plan for possible breast conservation surgery with a bracketed lumpectomy. - I reviewed the role of the medical oncologist and the role of systemic therapy to include chemotherapy and/or endocrine therapy. I explained that due to her tumor being strongly ER positive, she would most likely be recommended for endocrine therapy to follow her cancer treatment that would include a daily pill for 5 years, with an Aromatase Inhibitor. - I reviewed the role of the radiation oncologist. -I discussed needle localization and open surgical biopsy as an outpatient. I explained local anesthesia for the localization and intravenous sedation for the biopsy. I described additional long acting local anesthesia and making an incision in the breast to remove the area. Benefits, risks, and alternatives were discussed including infection, bleeding, scarring, deformity, pain, and inability toremove the area in question. We talked about postop instructions. We discussed followup. I answeredany questions. Patient indicated understanding and wish to proceed. Summery of Plan: 1. Left breast ultrasound +/- diagnostic mammogram to plan for breast conservation surgery. 2. Schedule a left breast needle localized lumpectomy with axillary lymph node staging (localized axillary lymph node). 60 minutes were spent with the patient, preparing for the office visit, and reviewing pathology andradiologic data. Christiano Shankar MD Breast Surgical Oncology [phone] cc: No referring provider defined for this encounter. documented in this encounter OR Notes * Operative Report - Christiano Shankar MD - 06/25/2021 12:11 PM CDT [facility] OPERATIVE REPORT - [id number] Date of Procedure: 06/25/2021 Name: KEVIN CHAKRABORTY : 1965 Sex: Female Admit Date: 06/25/2021 Admitting Physician: CHRISTIANO SHANKAR Attending Physician: CHRISTIANO SHANKAR Proceduralist/Surgeon: CHRISTIANO SHANKAR PRE-OPERATIVE DIAGNOSES: Neoplasm of breast Malignant; Overlapping sites; Female; Left Estrogen receptor positive Location(s): Left Areola, Left Upper Inner Quadrant, Left 2:00, Left Axillary Tail POST-OPERATIVE DIAGNOSES: Neoplasm of breast Malignant; Overlapping sites; Female; Left Location(s): Left Areola, Left Upper Inner Quadrant, Left 2:00, Left Axillary Tail PROCEDURES PERFORMED: [place]ault node biopsy of deep axillary node(s) Left Side Intraoperative identification of sentinel lymph node with Non-radioactive dye Injection Left Side Lumpectomy needle localization x 4 wires Left Side ASSISTANTS: Medical Orderly - GODWIN ORR ESTIMATED BLOOD LOSS: Minimal FINDINGS: Radiograph specimen with biopsy clips x 2 and lesions and 3 wires Good hemostasis throughout the entirety of the procedure bulky matted axillary lymph nodes SPECIMEN REMOVED: [place]ault Lymph Node-Lt axillary sentinel lymph nodes -- FS Axilla, left-LT axillary tail N.L.; sutures S/S, L/L Breast, left-LT breast tissue, 3 wires; S/S, L/L Nipple, left-LT sub-nipple bx; clip @ true margin Axilla, left-Add. LT axillary sentinel lymph nodes Breast, left-Add. post. margin; clip @ true margin Breast, left-Add. inf. margin; clip @ true margin COMPLICATIONS: No complications were noted ANESTHESIA: General General Local IMPLANTS: CAPACITY PLANNING ENGINEER CLIP SURGICLIP II RAMIREZ 9.75IN 976196 (QTY - 1) CAPACITY PLANNING ENGINEER CLIP SURGICLIP II RAMIREZ 9.75IN 173994 (QTY - 1) HEMOSTATIC SURGICEL 2X14IN 1950 (QTY - 1) ANESTHESIOLOGIST: Anesthesiologist - Tay Melagr DO STAFF: Java User Interface Developer - MARGARITA ALMENDAREZ Scrub - MATEUS HANNA Medical Orderly - [facility] ORR INDICATIONS: Kevin Chakraborty is a very pleasant 55 year old year old female who was diagnosed with a right breast cancer, HER2 positive. She has completed neoadjuvant TCHP chemotherapy. After discussing treatment options she has elected to proceed with a wide local excisional lumpectomy and axillary sampling. This will be accompanied by any recommended adjuvant medical and radiation therapy. TECHNIQUE: After informed consent the patient was brought to the operating room and placed in supine position on the operating room table. Thrombo-guards and a warming blanket were placed. After adequate anesthesia, the right breast, chest, axillary area and upper arm were prepped and draped into the operative field. She had previously gone to nuclear medicine where a radiolabeled colloid had been injected into the breast. At this time 5 ml of isosulfan blue dye was injected into the subareolar plexus.The breast was then gently massaged for 5 minutes. The gamma probe was then used to identify an area of increased signal activity in the axilla. An incision was then made at the inferior border of the axillary hair line. The fascia was then opened up. A bulky palpable firm matted lymph node cluster was encountered that included the hottest axillary lymph node. This clump of lymph nodes was carefully excited by clipping the lymphatics and vasculature. An additional blue lymphatic channel was identified and followed down to a blue, radioactive lymph node. This was removed by clipping and transecting lymphatic and vascular channels. The procedure was repeated until the background count was less than 10% of the hottest node. Specimens were sent to pathology for intraoperative evaluation. No cancer was seen in 6 axillary lymph nodes by frozen section, which was an unexpected result as they felt highly suspicious. The axilla was then checked for palpably abnormal lymph nodes and a few targeted additional left axillary lymph nodes were sent for permanent evaluation. Through the same incision, a needle localized wire was inserting inferior to the axilla, which was pulled into the cavity and followed into the axillary tail of the breast where a palpable firm mass versus intramammary lymph node was targeted with the wire. This palpable mass and surrounding tissue was dissected around with a rim of normal feeling breast tissue down to the pectoralis muscle at the lateral edge of the axillary tail. This area was removed and oriented short superior and long lateral and sent to pathology labeled axillary tail of left breast with a single wire. The wound was irrigated and checked for hemostasis. The incision was then closed with some interrupted 3-0 Vicryl and a running subcuticular 4-0 monocryl stitch. Attention was then turned to the breast. The lesion had been previously localized with 3 separate wires, the most inferior/lateral wire targeted the main lesion, a second wire slightly medial included a satellite lesion with a biopsy clip of known cancer, and a third wire that entered medially in the upper inner quadrant targeting an abnormal suspicious MRI finding prior to initiating neoadjuvant chemotherapy (not biopsy proven). An elliptical incision was drawn around all 3 wires, including the superior portion of the nipple areolar complex. Dissection was further deepened with electrocautery bovie through the subcutaneous tissue and deeper breast tissue with an ellipse of skin, circumferentially dissected through the breast tissue down to the pectoralis fascia, using the wires as a guide to pursue clear margins. The specimen included breast tissue down to the chest wall at the pectoralis muscle. This was oriented short superior, long lateral and sent for specimen mammogram. The lesions and the previously placed biopsy clip x 2 were noted to be within the specimen. Additional margins were then excised to assure adequate clear margins in the sub-nipple region, medial margin, posterior and inferior margins. The wound was then irrigated and checked for hemostasis. After adequate hemostasis the incision was closed in an oncoplastic technique with local tissue rearrangement to help fill the space with multiple layers of interrupted 3-0 vicryl suture. The skin was then closed with interrupted 3-0 Vicryl suture and a running 4-0 Monocryl subcuticular stitch. A silver impregnated dressing was applied to both incisions. Needle and sponge counts were correct x 2. Overall she tolerated the procedure well and was sent to the recovery room in stable condition. Should the sentinel lymph nodes prove to have metastatic disease on final pathology, she will need to return for completion axillary lymph node dissection. Alternatively, should the margins be involved or too close on final pathology she will need to return for re-excision. DISPOSITION: The patient tolerated the procedure well without any complications and was transferred to recovery. [id number] by CHRISTIANO SHANKAR MD, 06/25/2021 12:11 CDT (Approved) Created in [facility] documented in this encounter Plan of Treatment Upcoming Encounters Date Type Department Care Team (Late st Contact Info) Description 02/12/2025 1:00 PM CDT Office Visit [facility] Oncology and Hematology - [place] [address] [facility] [address] [place] [id number] Aaron Smith MD [address] [facility] [address] [place] [address] 03/29/2025 12:30 PM CDT Appointment [facility] [address] [place] [address] [place] [address] [facility] [address] [place] [address] 03/29/2025 1:30 PM CDT Office Visit [facility] Breast Surgery [place] [address] [facility] [address] [place] [id number] [place] [address] [facility] [address] [place] [address] documented as of this encounter Procedures Procedure Name Priority Date/Time Associated Diagnosis Comments POC GLUCOSE Routine 06/25/2021 11:52 AM CDT PATHOLOGY Pathology 06/25/2021 10:24 AM CDT 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, estrogen receptor positive MAMMO US GUIDED BREAST LOCAL Routine 06/25/2021 8:50 AM CDT 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, estrogen receptor positive SENTINEL LYMPH NODE BIOPSY 06/25/2021 8:20 AM CDT 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, estrogen receptor positive BREAST LUMPECTOMY 06/25/2021 8:2 0 AM CDT 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, estrogen receptor positive POC GLUCOSE Routine 06/25/2021 7:11 AM CDT documented in this encounter Results * (ABNORMAL) POC GLUCOSE (06/25/2021 11:52 AM CDT) GLUCOSE POC 142(H) 74 - 99 mg/dL 06/25/2021 11:52 AM CDT [facility] MULTI SITE/OPS [place] SOLAR ELECTRIC/PHOTOVOLTAIC INSTALLER NAME POC SHANE YANIRA 06/25/2021 11:52 AM CDT [facility]I S[facility] [place] Blood, whole 06/25/2021 11:5 2 AM CDT 06/25/2021 12:01 PM CDT Christiano Shankar MD POINT OF CARE TE [facility] Organization Address City/State/ZIP Co de Phone Number [facility] MULTI SITE/OPS [place] CLIA # [id number] [place] [address] * PATHOLOGY (06/25/2021 10:24 AM CDT) CASE REPORT Surgical Pathology Report ? Case: [id number] ? Authorizing Provider: ??Christiano Shankar MD ??Collected: ? 06/25/2021 10:24 AM ? Ordering Location: ? [facility] ?? Received: ?06/25/2021 12:11 PM ? [place] [facility] ? Pathologist: ? Sheila, Jean Solares, DO ? Specimens: ?? A) - [place] Lymph Node, Lt axillary sentinel lymph nodes -- ??FS ? B) - Axilla, left, LT axillary tail N.L.; sutures S/S, L/L ? C) - Breast, left, LT breast tissue, 3 wires; S/S, L/L ? D) - Nipple, left, LT sub-nipple bx; clip @ true margin ? E) - Axilla, left, Add. LT axillary sentinel lymph nodes ? F) - Breast, left, Add. post. margin; clip @ true margin ? G) - Breast, left, Add. inf. margin; clip @ true margin ? 1 1:00 PM [facility] [employer] [facility] FINAL DIAGNOSIS Faribault lymph nodes , left axillary, biopsy (FS 1-4): -Six lymph nodes, no metastatic carcinoma identified (0/6). Axillary tail, left, excision: -Single lymph node with biopsy site changes, no metastatic carcinoma identified (0/1). -Benign breast tissue. -No in situ or invasive carcinoma identified. Breast, left, wide local excision lumpectomy: -Invasive ductal carcinoma, with the following features: 1. Size: 10 mm. 2. Leonard score: 8/9 (grade 3). 3. Margins: Invasive carcinoma <1 mm from the inferior margin. 4. Lymphvascular invasion: Present. 5. Stage: ypT1b, pN0. -Ductal carcinoma in situ, high nuclear grade, solid and cribriform patterns. 1. Extent: Not directly measurable, present in 13 of 68 tissue blocks. 2. Margins: Ductal carcinoma in situ <1 millimeter from the inferior margin. -Ductal carcinoma in situ 2 mm from the posterior margin. -Biopsy site changes. -Attached skin with no significant histopathologic abnormality. [place] lymph nodes, additional left axillary, biopsy: -Four lymph nodes, no metastatic carcinoma identified (0/4). Breast, left, additional posterior margin, excision: -Benign fibroadipose tissue. -No in situ or invasive carcinoma identified. Breast, left, additional inferior margin, excision: -Benign breast tissue. -No in situ or invasive carcinoma identified. 1 1:00 PM [facility] [employer] [facility] S DESCRIPTION Received are seven containers labeled Kevin Chakraborty. Received in the first container additionally labeled left axillary sentinel lymph nodes is a 7 x 6 x 1.6 cm portion of pink-yellow adipose tissue. Dissection of the fat identifies six cisse lymph node candidates, none containing blue dye stain. They measure 3.5 cm, 2 cm, 1.3 cm, 1.2 cm, 1.1 cm and 1 cm in greatest dimension. The 3.5 cm and 1.3 cm nodes are nearly fat-replaced. The 3.5 cm lymph node is bisected and entirely submitted for frozen section in FS1, the remnant of which is submitted in A1. The 1.3 cm node is bisected and all submitted for frozen section in FS2, the remnant of which is submitted in A2. The 2 cm node is bisected and all submitted for frozen section in FS3, the remnant of which is submitted in A3. The 1.2 cm, 1.1 cm, and 1 cm nodes are differentially inked and submitted uncut for frozen section in FS4, the remnants of which are submitted in A4. The outer fat that has been cut away is saved in the specimen container. Collected at 1024, in formalin at 1100. Received in the second container labeled left axillary tail SS/LL is a 7.4 cm S-I by 6 cm M-L by 2.5 cm A-P portion of ramirez-yellow mostly fatty tissue oriented using sutures as indicated on the requisition and specimen container. The bent tip of a localization wire extends from the inferior-medial aspect, and the straight end from the lateral-posterior surface. The tissue is inked as follows: Superior-blue, inferior-black, anterior-yellow, posterior-green. Serial sections from medial to lateral into 10 levels reveals soft ramirez-yellow fat with minimal cisse fibrous tissue. No discrete biopsy site or gross lesion is identified. Also submitted from medial to lateral as follows: B1-B3-level 1 (medial margin), sectioned, B4-B5-level 2, B6-B7-level 3, Z9-T19-wfcmm 4, E67-R57-zdpqq 5, B 16-B 18-level 6, N43-D84-zsrpo 7, B 23-B 25-level 8, C68-C20-fqtkj 9, F17-A64-rdysu 10 (lateral margin), sectioned. Collected at 1024, in formalin at 1120. Received in the third container labeled left breast tissue 3 wires, SS/LL is a 183 g portion of yellow-ramirez fatty tissue that is 14 cm M-L by 6.5 cm S-I by 6 cm A-P. The anterior surface consists of a skin ellipse that is 11.3 x 4 cm. The skin includes the edge of a brown areola along the lateral-inferior skin edge, 4 cm. No skin lesions are seen. There is an accompanying radiograph labeled with the patient's name that demonstrates the wire placement x3 and a metal clip and corkscrew clip adjacent to two of the wires. No interpretation is provided. The tissue is inked as follows: Superior-blue, inferior-black, anterior-skin surface (uninked), posterior-yellow. Serial sections from medial to lateral into 10 levels reveals abundant soft ramirez-yellow fat with scant hemorrhage. There is a vague slightly indurated 6 x 5 mm cisse focus with possible punctate yellow necrosis in level 9 that abuts the black-inked inferior margin. It is unclear whether this focus represents an actual lesion or mass. No additional significant gross findings are identified. The specimen is submitted entirely from medial to lateral as follows: C1-C3-level 1 (medial margin), C4-C7-level 2, R4-R92-ecxna 3, C13-C 17-level 4, C 18-C 28-level 5, C 29-C 40-level 6, C 41-C 53-level 7, C 54-C 66-level 8, C 67-C 80-level 9, C 81-C 87-level 10 (lateral margin). The moderately firm cisse focus described in level 9 was placed in C67 and C68. Collected at 1040 and placed in formalin at 1110. Received in the fourth container labeled left subnipple biopsy, clip at true margin is a roughly T-shaped piece of pink-cisse membranous tissue, 1.9 x 1.2 x 0.5 cm. The top of the T shape contains black cautery and a clip that indicates the true margin. The area with clip is marked with blue ink and the rest of the specimen is left uninked. The specimen is submitted entirely in D1. Collected at 1052 and in formalin at 1120. Received in the fifth container labeled additional left axillary sentinel lymph nodes are 3 fragments of ramirez-yellow fatty tissue, 19 g and 7 x 6 x 1.5 cm in aggregate. Four lymph node candidates versus firm oily fat are dissected from the tissue fragments. The largest is 2.3 cm, bisected, and completely submitted in E1. The second node candidate is 2.2 cm, bisected and all submitted in E2. The third possible node is 1.4 cm, bisected and all submitted in E3. The fourth possible node is 1.9 cm, bisected and all submitted in E4. Collected at 11:00 and in formalin at 1115. The remaining fat is saved in the specimen container. Received in the sixth container labeled left breast additional posterior margin, clip at true margin is a 4.5 x 2.9 x 0.9 cm unoriented piece of ramirez-yellow fatty tissue. A clip is present on one surface, marking the true posterior margin. This surface is marked with blue ink and the opposite surface with black ink. The tissue is serially sectioned and all submitted in F1 through F5. Collected at 1112 and in formalin at 1145. Received in the seventh container labeled left breast additional inferior margin, clip at true margin is a 6 x 4.5 x 0.8 cm unoriented piece of ramirez-yellow fatty tissue. A clip is present on one surface, marking the true inferior margin. This surface is marked with blue ink and the opposite surface with black ink. The specimen is serially sectioned and all submitted in G1 through G11. Collected at 1113 and in formalin at 1145. 1 1:00 PM [facility] MICROSCOPIC DESCRIPTION The slides are labeled [id number] and Kevin Chakraborty. Sections from the left axillary sentinel lymph nodes (FS 1-4) show 6 benign lymph nodes with reactive changes. No metastatic carcinoma is identified. Sections from the left axillary tail show benign breast tissue and a single lymph node with an adjacent focus of biopsy site change characterized by a nodular focus of exuberant foreign body type giant cell reaction with sparse associated lymphoid stroma. No residual metastatic carcinoma is identified. The remainder the specimen is composed predominantly of adipose tissue with sparse benign breast ducts and lobules. No in situ or invasive carcinoma is identified. Sections from the left breast tissue show a focus of residual invasive ductal carcinoma, 10 mm greatest dimension, that comes to within less than 1 mm of the inferior surgical margin. The tumor is composed of an infiltrative proliferation of malignant epithelial cells. There is no significant tubule formation (score 3). There is marked nuclear pleomorphism (score 3), and moderate mitotic activity is noted (score 2). In addition to the invasive carcinoma there are punctate foci of ductal carcinoma in situ, high nuclear grade, with solid and cribriform patterns. The carcinoma in situ is haphazardly distributed in a buckshot pattern, involving 13 of 68 tissue blocks. Carcinoma in situ comes to within less than 1 mm of the inferior margin. The carcinoma in situ comes to within 2 mm of the posterior margin. Associated biopsy site changes are noted. Within the tumor bed there are areas of dense stromal fibrosis, consistent with treatment effect. Focal lymphovascular space invasion is noted. The attached portion of skin is uninvolved by in situ invasive carcinoma. Please see the synoptic report for additional information. Sections of the left subnipple biopsy show benign breast tissue. No in situ or invasive carcinoma is identified. Sections of the additional left axillary sentinel lymph nodes show for benign lymph nodes with reactive changes. No metastatic carcinoma is identified. Sections of the additional posterior margin show benign fibroadipose tissue. No ducts or lobules are identified. No in situ or invasive carcinoma is seen. Sections of the additional inferior margin show benign breast tissue. No in situ or invasive carcinoma is identified. 1 1:00 PM [facility] [employer] [facility] INTRAOPERATIVE CONSULTATION [place] lymph nodes nodes, left axillary (FS1-FS4): - No tumor identified in [address] Shankar notified of results by phone in OR 4. Dr. Dorothy Patel 1 1:00 PM [facility] [employer] [facility] OPERATIVE PROCEDURE 1: BREAST LUMPECTOMY 2: SENTINEL LYMPH NODE BIOPSY 1 1:00 PM [facility] CLINICAL INFORMATION 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, estrogen receptor positive [C50.012, Z17.0] 1 1:00 PM [facility] [employer] [facility] SYNOPTIC REPORT INVASIVE CARCINOMA O F THE BREAST: Resection INVASIVE CARCINOMA OF THE BREAST: COMPLETE EXCISION - All Specimens 8th Edition - Protocol posted: 12/20/2019 SPECIMEN ?? Procedure: ?Excision (less than total mastectomy) ?? Specimen Laterality: ?Left TUMOR ?? Histologic Type: ?Invasive carcinoma of no special type (ductal) ?? Glandular (Acinar) / Tubular Differentiation: ?Score 3 ?? Nuclear Pleomorphism: ?Score 3 ?? Mitotic Rate: ?Score 2 ?? Overall Grade: ?Grade 3 (scores of 8 or 9) ?? Tumor Size: ?Greatest dimension of largest invasive focus (Millimeters): 10 mm ?? Ductal Carcinoma In Situ (DCIS): ?Present ? Size (Extent) of DCIS: ?Cannot be determined ? Number of Blocks with DCIS: ?13 ? Number of Blocks Examined: ?68 ? Architectural Patterns: ?Cribriform ? Architectural Patterns: ?Solid ? Nuclear Grade: ?Grade III (high) ?? Tumor Extent: ? Lymphovascular Invasion: ?Present ?? Dermal Lymphovascular Invasion: ?Not identified ?? Treatment Effect in the Breast: ?Probable or definite response to presurgical therapy in the invasive carcinoma ?? Treatment Effect in the Lymph Nodes: ?No lymph node metastases. Fibrous scarring or histiocytic aggregates, possibly related to prior lymph node metastases with pathologic complete response MARGINS ?? Invasive Carcinoma Margins: ?Uninvolved by invasive carcinoma ? Distance from Closest Margin (Millimeters): ?Less than: 1 mm ? Closest Margin(s): ?Inferior ?? DCIS Margins: ?Uninvolved by DCIS ? Distance from Closest Margin (Millimeters): ?Less than: 1 mm ? Closest Margin(s): ?Inferior LYMPH NODES ?? Regional Lymph Nodes: ?Uninvolved by tumor cells ? Total Number of Lymph Nodes Examined: ?11 ? Number of [place] Nodes Examined: ?6 PATHOLOGIC STAGE CLASSIFICATION (pTNM, AJCC 8th Edition) ? TNM Descriptors: ?y (post-treatment) ?? Primary Tumor (pT): ?pT1b ?? Regional Lymph Nodes (pN): ?pN0 1 1:00 PM CDT [facility] [employer] [facility] COMMENT Special stain and/or immunohistochemical results are interpreted with controls that demonstrate appropriate staining reactions. Note on use of immunocytochemistry reagents: This test was developed and its performance characteristics determined by [facility], Department of Laboratory Medicine. It has not been cleared or approved by the U.S. Food and Drug Administration. The FDA has determined that such clearance or approval is not necessary. The test is used for clinical purposes. It should not be regarded as investigational or for research. This laboratory is certified to perform high complexity testing. Frozen section/operating room consultation, gross examination and dissection, and case sign out may have been performed in part or completely in the following laboratories: [facility], CLIA #[id number] [address] [place] [address] [facility], CLIA #[id number] [address] [place] [address] [facility], CLIA #[id number] [address] [place] [address] 1:00 PM CDT [facility] LABORATORY SERVICES [facility] Tissue ([place] Lymph Node) Collection / Unknown 06/25/2021 10:24 AM CDT 06/25/2021 12:11 PM CDT Tissue specimen (specimen) (Axilla, left) Collection / Unknown 06/25/2021 10:24 AM CDT 06/25/2021 12:11 PM CDT Tissue specimen (specimen) LEFT BREAST STRUCTURE / Unknown 06/25/2021 10:40 AM CDT 06/25/2021 12:11 PM CDT Tissue specimen (specimen) ENTIRE NIPPLE / Unknown 06/25/2021 10:52 AM CDT 06/25/2021 12:11 PM CDT Tissue specimen (specimen) (Axilla, left) 06/25/2021 11:00 AM CDT 06/25/2021 12:11 PM CDT Tissue specimen (specimen) LEFT BREAST STRUCTURE / Unknown 06/25/2021 11:12 AM CDT 06/25/2021 12:11 PM CDT Tissue specimen (specimen) LEFT BREAST STRUCTURE / Unknown 06/25/2021 11:13 AM CDT 06/25/2021 12:11 PM CDT Christiano Shankar MD PATHOLOGY/CYTOLO GY ORDERABLES [facility]# [id number] [address] [place] [address] * MAMMO US GUIDE NEEDLE PLACEMENT (06/25/2021 8:50 AM CDT) Anatomical Region Laterality Modality Breast N/A Ultrasound 06/25/2021 9:24 AM CDT Impressions 06/25/2021 2:24 PM CDT IMPRESSION: Technically successful ultrasound-guided needle localizations, three sites. Technically successful mammographic guided needle localization. DICTATION LOCATION: ??Fabrice Berg Narrative 06/25/2021 2:24 PM CDT EXAM: [...] at the time of the specimen radiograph. Christiano Shankar MD MAMMO ORDERABLES * POC GLUCOSE (06/25/2021 7:11 AM CDT) GLUCOSE POC 97 74 - 99 mg/dL 06/25/2021 7:11 AM CDT [facility] RADIOLOGY MULTI SITE/OPS [place] SOLAR ELECTRIC/PHOTOVOLTAIC INSTALLER NAME POC REED AVILA 06/25/2021 7:11 AM CDT [facility] RADIOLOGY MULTI SITE/OPS [place] Blood, whole 06/25/2021 7:11 AM CDT 06/25/2021 7:22 AM CDT Christiano Shankar MD POINT OF CARE TE [facility] Organization Address City/State/ZIP Co de Phone Number [facility] RADIOLOGY MULTI SITE/OPS [place] CLIA # [id number] [facility] [place] [address] documented in this encounter Visit Diagnoses Diagnosis 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, estrogen receptor positive documented in this encounter Administered Medications Inactive Administered Medications - up to 3 most recent administrations Medication Order MAR Action Action Date Dose Rate Site acetaminophen (TYLENOL) tablet 975 mg 975 mg, Oral, ONE TIME ONLY, 1 dose, On Wed06/25/21 at 0615, Stat, Pre-op Given 06/25/2021 6:30 AM CDT 975 mg diphenhydrAMINE (BENADRYL) injection 12.5 mg 12.5 mg, IV, POST-PROCEDURE ONCE PRN, 1 dose, Starting on Wed06/25/21 at 0553, Until Wed06/25/21 at 1554, Nausea/Emesis, Routine, PACU fentaNYL PF (SUBLIMAZE) 50 mcg/mL injection 50 mcg 50 mcg, IV, POST-PROCEDURE Q 3 MINUTES PRN, 5 doses, Starting on Wed06/25/21 at 0553, Until Wed06/25/21 at 1554, Pain, Routine, PACU Given 06/25/2021 12:55 PM CDT 50 mcg Given 06/25/2021 12:14 PM CDT 50 mcg HYDROcodone-acetaminophen (NORCO) 5-325 mg per tablet 1 Tablet 1 Tablet, Oral, EVERY 4 HOURS PRN, Starting on Wed06/25/21 at 1301, Until Wed06/25/21 at 1554, Pain (See admin instructions), Routine Given 06/25/2021 1:01 PM CDT 1 Tablet HYDROmorphone (DILAUDID) 2 mg/mL injection 0.6 mg 0.6 mg, IV, POST-PROCEDURE Q 5 MINUTES PRN, 5 doses, Starting on Wed06/25/21 at 0553, Until Wed06/25/21 at 1554, Pain, Routine, PACU lactated ringers infusion IV, at 150 mL/hr, PRE-PROCEDURE CONTINUOUS, Starting on Wed06/25/21 at 0615, Until Wed06/25/21 at 1554, Routine, Pre-op Continue from Pre-Op 06/25/2021 9:13 AM CDT 150 mL/hr New Bag 06/25/2021 9:04 AM CDT 150 mL/hr lactated ringers infusion IV, at 30 mL/hr, POST-PROCEDURE CONTINUOUS, Starting on Wed06/25/21 at 0600, Until Wed06/25/21 at 1554, Routine, PACU lidocaine PF 2% (XYLOCAINE MPF) injection 0.3 mL 0.3 mL, Infiltration, PRE-PROCEDURE ONCE, Starting on Wed06/25/21 at 0603, Until Wed06/25/21 at 1554, Routine, Pre-op naloxone (NARCAN) 0.4 mg/mL injection 0.1 mg 0.1 mg, IV, SEE ADMIN INSTRUCTIONS, Starting on Wed06/25/21 at 0553, Until Wed06/25/21 at 1554, Routine, PACU ondansetron (ZOFRAN) 4 mg/2 mL injection 4 mg 4 mg, IV, POST-PROCEDURE ONCE PRN, 1 dose, Starting on Wed06/25/21 at 0553, Until Wed06/25/21 at 1554, Nausea/Emesis, Routine, PACU prochlorperazine (COMPAZINE) injection 5 mg 5 mg, IV, POST-PROCEDURE ONCE PRN, 1 dose, Starting on Wed06/25/21 at 0553, Until Wed06/25/21 at 1554, Nausea/Emesis, Routine, PACU documented in this encounter Active and Recently Administered Medications Times are shown in CDT. Scheduled Medication Order 06/23/2021 06/24/2021 06/25/2021 acetaminophen (TYLENOL) tablet 975 mg (COMPLETED) 975 mg, Oral, ONE TIME ONLY, 1 dose, On Wed06/25/21 at 0615, Stat, Pre-op 0630 (Given - Provid er: Andressa Monroe RN) ceFAZolin in sterile water (ANCEF) 2 gram/20 mL IV Syringe (PREMIX) 2,000 mg (COMPLETED) 2,000 mg, IV, PRE-PROCEDURE ONCE, 1 dose, Starting on Wed06/25/21 at 0603, Until Wed06/25/21 at 0927, Routine, Pre-op, Antibiotic Indication: Surgical prophylaxis 926 (Given - Provid er: Elina Schaefer CRNA) lidocaine PF 2% (XYLOCAINE MPF) injection 0.3 mL 0.3 mL, Infiltration, PRE-PROCEDURE ONCE, Starting on Wed06/25/21 at 0603, Until Wed06/25/21 at 1554, Routine, Pre-op naloxone (NARCAN) 0.4 mg/mL injection 0.1 mg 0.1 mg, IV, SEE ADMIN INSTRUCTIONS, Starting on Wed06/25/21 at 0553, Until Wed06/25/21 at 1554, Routine, PACU Continuous Medication Order 06/23/2021 06/24/2021 06/25/2021 lactated ringers infusion IV, at 150 mL/hr, PRE-PROCEDURE CONTINUOUS, Starting on Wed06/25/21 at 0615, Until Wed06/25/21 at 1554, Routine, Pre-op 0904 (New Bag - Prov ider: Yanira Zamarripa, SRINIVASAN)0913 (Continue from Pre-Op - Provider: Christiano Shankar MD)1120 (Fluid Volume - Provider: Elina Schaefer CRNA) lactated ringers infusion IV, at 30 mL/hr, POST-PROCEDURE CONTINUOUS, Starting on Wed06/25/21 at 0600, Until Wed06/25/21 at 1554, Routine, PACU 0600 (Due)1351 (Stop ped - Provider: Carley Anderson RN) PRN Medication Order 06/23/2021 06/24/2021 06/25/2021 bupivacaine PF (SENSORCAINE MPF) 2.5 mg/mL (0.25%) injection (CANCELED) INTRA-PROCEDURE PRN, Starting on Wed06/25/21 at 0947, Until Wed06/25/21 at 1146, Routine, Anesthesia Intra-op 0947 (Given - Provid er: Christiano Shankar MD) diphenhydrAMINE (BENADRYL) injection 12.5 mg 12.5 mg, IV, POST-PROCEDURE ONCE PRN, 1 dose, Starting on Wed06/25/21 at 0553, Until Wed06/25/21 at 1554, Nausea/Emesis, Routine, PACU fentaNYL PF (SUBLIMAZE) 50 mcg/mL injection 50 mcg 50 mcg, IV, POST-PROCEDURE Q 3 MINUTES PRN, 5 doses, Starting on Wed06/25/21 at 0553, Until Wed06/25/21 at 1554, Pain, Routine, PACU 1214 (Given - Provid er: Carley Anderson RN)1255 (Given - Provider: Carley Anderson RN) HYDROcodone-acetaminophen (NORCO) 5-325 mg per tablet 1 Tablet 1 Tablet, Oral, EVERY 4 HOURS PRN, Starting on Wed06/25/21 at 1301, Until Wed06/25/21 at 1554, Pain (See admin instructions), Routine 1301 (Given - Provid er: Carley Anderson RN) HYDROmorphone (DILAUDID) 2 mg/mL injection 0.6 mg 0.6 mg, IV, POST-PROCEDURE Q 5 MINUTES PRN, 5 doses, Starting on Wed06/25/21 at 0553, Until Wed06/25/21 at 1554, Pain, Routine, PACU isosulfan blue (LYMPHAZURIN) injection (CANCELED) INTRA-PROCEDURE PRN, Starting on Wed06/25/21 at 0936, Until Wed06/25/21 at 1146, Routine, Anesthesia Intra-op 0936 (Given - Provid er: Christiano Shankar MD) ondansetron (ZOFRAN) 4 mg/2 mL injection 4 mg 4 mg, IV, POST-PROCEDURE ONCE PRN, 1 dose, Starting on Wed06/25/21 at 0553, Until Wed06/25/21 at 1554, Nausea/Emesis, Routine, PACU prochlorperazine (COMPAZINE) injection 5 mg 5 mg, IV, POST-PROCEDURE ONCE PRN, 1 dose, Starting on Wed06/25/21 at 0553, Until Wed06/25/21 at 1554, Nausea/Emesis, Routine, PACU sodium chloride 0.9 % irrigation solution (CANCELED) INTRA-PROCEDURE PRN, Starting on Wed06/25/21 at 0947, Until Wed06/25/21 at 1146, Routine, Anesthesia Intra-op 0947 (Given - Provid er: Christiano Shankar MD)1048 (Given - Provider: Christiano Shankar MD) documented in this encounter Care Teams [employer]ler Relationship Specialty Start Date End Date Kevin Shi MD [address] [place] [address] PCP - General Family Practice 01/15/21 documented as of this encounter
--- OUTSIDE RECORDS SUMMARY | 2024-10-23 02:18 | XMS_ITS | Encounter Summary ---
Author Organization [facility] Address [address] [place] [address] Care Team Providers Care Desizing Machine Operator Name Role Phone Rosa Shi MD Primary Care Provider [phone] Reason for Visit * Auth/Cert Specialty Diagnoses / Procedures Referred By Contac t Referred To Contact Diagnoses 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, estrogen receptor positive 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, estrogen receptor positive [C50.012, Z17.0] Procedures MD MASTECTOMY, PARTIAL MD BX/REMV,LYMPH NODE,DEEP AXILL CHG LYMPHATICS & LYMPH GLANDS IMAGING MD REMOVE ARMPITS LYMPH NODES COMPLT MD PERQ DEVICE PLACEMT BREAST LOC 1ST LES W GUIDNCE MD PERQ BREAST LOC DEVICE PLACEMT 1ST [place] [address] [address] Referral ID Status Reason Start Date Expiration Date Visits Re quested Visits Authorized [id number] 05/19/2021 1 1 Encounter Details Date Type Department Care Team (Latest Contact Info) Description 06/25/2021 9:15 AM CDT - 06/25/2021 11:59 PM CDT Hospital Encounter [facility] [address] [place] [address] Discharge Disposition: Home or Self Care Social [...] 01/16/2021 10/20/2021 documented as of this encounter Plan of Treatment Upcoming Encounters Date Type Department Care Team (Late st Contact Info) Description 02/12/2025 1:00 PM CDT Office Visit [facility] Oncology and Hematology - [place] [address] [facility] [address] [place] [address] Aaron Smith MD [address] [facility] [address] [place] [address] 03/29/2025 12:30 PM CDT Appointment [facility] [place] [address] [address] [address] [place] [address] [address] [address] 03/29/2025 1:30 PM CDT Office Visit [facility] [address] [place] [address] [place] [address] [address] [address] documented as of this encounter Procedures Procedure Name Priority Date/Time Associated Diagnosis Comments MAMMO US GUIDED BREAST LOCAL Routine 06/25/2021 8:50 AM CDT 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, estrogen receptor positive documented in this encounter Results * MAMMO POST PROCEDURE [...] Chayo Zepeda MD MAMMO ORDERABLES * MAMMO US GUIDE NEEDLE PLACEMENT (06/25/2021 8:50 AM CDT) Anatomical Region Laterality Modality Breast N/A Ultrasound 06/25/2021 9:24 AM CDT Impressions 06/25/2021 2:24 PM CDT IMPRESSION: Technically successful ultrasound-guided needle localizations, three sites. Technically successful mammographic guided needle localization. DICTATION LOCATION: ??[place] Narrative 06/25/2021 2:24 PM CDT EXAM: LEFT [...] specimen radiograph. Chayo Zepeda MD MAMMO ORDERABLES documented in this encounter Visit Diagnoses Not on filedocumented in this encounter Care Teams Desizing Machine Operator Relationship Specialty Start Date End Date Rosa Shi MD [address] [place] [address] PCP - General Family Practice 01/15/21 documented as of this encounter
--- OUTSIDE RECORDS SUMMARY | 2024-10-23 02:18 | XMS_ITS | Encounter Summary ---
Author Organization [facility] Address [address] [place] [address] Care Team Providers Care Carver Hand Name Role Phone Rosa Shi MD Primary Care Provider [phone] Reason for Visit * Reason Comments Nurse Navigation Encounter Details Date Type Department Care Team (Late st Contact Info) Description 07/25/2021 Chart Note [facility] Oncology Patient Navigation [address] [place] [address] Sonia Herrera, SRINIVASAN Nurse Navigation Social History [...] Progress Notes * Sonia Herrera RN - 07/25/2021 9:12 AM CDT documented in this encounter Plan of Treatment Upcoming Encounters Date Type Department Care Team (Late st Contact Info) Description 02/12/2025 1:00 PM CDT Office Visit [facility] Oncology and Hematology - [place] [address] [facility] [address] [place] [address] Aaron Smith MD [address] [facility] [address] [place] [address] 03/29/2025 12:30 PM CDT [facility] [address] [place] [address] [place] [address] [facility] [address] [place] [address] 03/29/2025 1:30 PM CDT Office Visit [facility] Breast Surgery [address] [address] [facility] [address] [place] [address] [place] [address] [facility] [address] [place] [address] documented as of this encounter Visit Diagnoses Not on filedocumented in this encounter Care Teams Carver Hand Relationship Specialty Start Date End Date Rosa Shi MD [address] [place] [address] PCP - General Family Practice 01/15/21 documented as of this encounter
--- OUTSIDE RECORDS SUMMARY | 2024-10-23 02:18 | XMS_ITS | Encounter Summary ---
Author Organization [facility] Address [address] Becerra: Epic Prelude ADT [place] [address] Care Team Providers Care Rent And Miscellaneous Remittance Clerk Name Role Phone Rosa Shi MD Primary Care Provider Encounter Details Date Type Department Care Team (Latest Contact Info) Description 06/25/2021 Travel Social History Tobacco Use Types Packs/Day [...] Center Oncology and Hematology - [place] [address] [facility] [address] [place] [address] Aaron Smith MD [address] [facility] [address] [place] [address] 03/29/2025 12:30 PM CDT Appointment [facility] [address] [place] [address] [place] [address] [facility] [address] [place] [address] 03/29/2025 1:30 PM CDT Office Visit [facility] Breast Surgery [address] [facility] [place] [address] [place] [address] [place] [address] [facility] [address] [place] [address] documented as of this encounter Visit Diagnoses Not on filedocumented in this encounter Care Teams Rent And Miscellaneous Remittance Clerk Relationship Specialty Start Date End Date Rosa Shi MD [address] [place] [address] PCP - General Family Practice 01/15/21 documented as of this encounter
--- OUTSIDE RECORDS SUMMARY | 2024-10-23 02:18 | XMS_ITS | Encounter Summary ---
Author Organization [facility] Address [address] Becerra: Epic Prelude ADT [place] [address] Care Team Providers Care Construction Equipment Technician Name Role Phone Rosa Shi MD Primary Care Provider [phone] Encounter Details Date Type Department Care Team (Latest Contact Info) Description 07/09/2021 Travel Social History Tobacco Use Types Packs/Day [...] have Coronavirus / COVID-19? No / Unsure 07/09/2021 8:49 AM CDT documented as of this encounter Plan of Treatment Upcoming Encounters Date Type Department Care Team (Late st Contact Info) Description 02/12/2025 1:00 PM CDT Office Visit [facility] Oncology and Hematology - [place] [address] [facility] [address] [place] [address] Aaron Smith MD [address] [facility] [address] [place] [address] 03/29/2025 12:30 PM CDT Appointment [facility] [address] [place] [address] [place] [address] [facility] [address] [place] [address] 03/29/2025 1:30 PM CDT Office Visit [facility] Breast Surgery [address] [facility] [address] [place] [address] [place] [address] [facility] [address] [place] [address] documented as of this encounter Visit Diagnoses Not on filedocumented in this encounter Care Teams Construction Equipment Technician Relationship Specialty Start Date End Date Rosa Shi MD [address] [place] [address] PCP - General Family Practice 01/15/21 documented as of this encounter
--- OUTSIDE RECORDS SUMMARY | 2024-10-23 02:18 | XMS_ITS | Encounter Summary ---
Author Organization [facility] Address [address] [place] [address] Care Team Providers Care Fisheries Inspector Name Role Phone Rosa Shi MD Primary Care Provider [phone] Reason for Visit * Reason Onset Date Comments Research 06/23/2021 Encounter Details Date Type Department Care Team (Late Contact Info) Description 06/23/2021 Telephone [facility] [address] [place] [address] Emilia Dang, Physical Therapist Research Social History Tobacco Use Types Packs/Day Years [...] have Coronavirus / COVID-19? No / Unsure 06/11/2021 11:53 AM CDT documented as of this encounter Plan of Treatment Upcoming Encounters Date Type Department Care Team (Late Contact Info) Description 02/12/2025 1:00 PM CDT Office Visit [facility] Oncology and Hematology - [place] [address] [place] [address] [address] [place] [address] Aaron Smith MD [address] [facility] [address] [place] [address] 03/29/2025 12:30 PM CDT Appointment [facility] [address] [address] [place] [address] [place] [address] [facility] [address] [place] [address] 03/29/2025 1:30 PM CDT Office Visit [facility] Breast [facility] [address] [facility] [address] [place] [address] [place] [address] [address] documented as of this encounter Visit Diagnoses Not on filedocumented in this encounter Care Teams Fisheries Inspector Relationship Specialty Start Date End Date Rosa Shi MD [address] [place] [address] PCP - General Family Practice 01/15/21 documented as of this encounter
--- OUTSIDE RECORDS SUMMARY | 2024-10-23 02:18 | XMS_ITS | Encounter Summary ---
Author Organization [facility] Address [address] [place] [address] Care Team Providers Care Vacuum Caster Name Role Phone Rosa Shi MD Primary Care Provider [phone] Reason for Visit * Auth/Cert Specialty Diagnoses / Procedures Referred By Contac t Referred To Contact Diagnoses 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, estrogen receptor positive 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, estrogen receptor positive [C50.012, Z17.0] Procedures MI MASTECTOMY, PARTIAL MI BX/REMV,LYMPH NODE,DEEP AXILL CHG LYMPHATICS & LYMPH GLANDS IMAGING MI REMOVE ARMPITS LYMPH NODES COMPLT MI PERQ DEVICE PLACEMT BREAST LOC 1ST LES W GUIDNCE MI PERQ BREAST LOC DEVICE PLACEMT 1ST [place] [address] [address] [address] Referral ID Status Reason Start Date Expiration Date Visits Re quested Visits Authorized [id number] 05/19/2021 1 1 Encounter Details Date Type Department Care Team (Late st Contact Info) Description 06/25/2021 9:13 AM CDT Anesthesia Event [facility] [place] [address] [place] [address] Tay Melgar DO [address] [place] [address] Anesthesia Record Procedure Summary Procedure Name Responsible Anesthesiologist Anesthesia Start Time Anesthesia Stop Time LEFT BREAST WIDE LOCAL EXCISION LUMPECTOMY WITH NEEDLE LOCALIZATION AT 7:30 AM (Left: Breast) Tay Melgar DO 06/25/21 0913 06/25/21 1148 Events Date Time Event Comment 06/25/2021 0609 0913 An Start 0915 In Room This event disp lays the In Room time documented in the Surgical Log. Deleting this event will not remove it from the log but will remove it from the Grid and Graph timeline. 0915 AN Equip Check Anesthesia eq uipment and materials checked in accordance with local policy. 0915 An Start Data 0915 Pre-Induction Immediate pre- induction anesthetic assessment performed. Vital signs as noted on graphic. 0920 An Induction 0925 An LMA 0926 Anesthesia Ready 0936 Procedure Start This event d isplays the Procedure Start time documented in the Surgical Log. Deleting this event will not remove it from the log but will remove it from the Grid and Graph timeline. 1142 Supraglottic Removed Spontan eous respirations. LMA discontinued without difficulty. Oropharynx suctioned as indicated. 1143 Procedure Stop This event di splays the Procedure Stop time documented in the Surgical Log. Deleting this event will not remove it from the log but will remove it from the Grid and Graph timeline. 1146 Out of Room This event disp lays the Out of Room time documented in the Surgical Log. Deleting this event will not remove it from the log but will remove it from the Grid and Graph timeline. 1147 an stop data 1148 An Stop Meds Name Total midazolam PF (VERSED) 1 mg/mL injection 2 mg fentaNYL (SUBLIMAZE) PF 50??mcg/mL injec tion 100 mcg lidocaine PF (XYLOCAINE MPF) 20 mg/mL sy ringe 60 mg propofol (DIPRIVAN) 10??mg/mL injection 180 mg ceFAZolin in sterile water (ANCEF) 2 gra m/20 mL IV Syringe (PREMIX) 2,000 mg 2,000 mg dexamethasone (DECADRON) 4 mg/mL injecti on 8 mg famotidine (pf) (PEPCID) 20 mg/2 mL inje ction 20 mg hydromorPHONE (DILAUDID) 2 mg/mL injecti on 0.4 mg ondansetron (ZOFRAN) 4??mg/2 mL injectio n 4 mg labetalol (NORMODYNE;TRANDATE) 5??mg/mL injection 5 mg lactated ringers infusion 800 mL * Agents Name Sevoflurane % Sevoflurane O2 N2O Inspired N2O O2 * Blood No blood administrations on file. Lines, Drains, and Airways Type Details Placement Removal Wound 06/25/21; 0936; No; 1; Left; axilla; surgical 06/25/21 0936 by Belen Li RN Wound 06/25/21; 1030; No; 2; Left; breast; surgical 06/25/21 103 by Belen Li RN Peripheral IV Pre-Hospital Start: No; Orientation: Posterior, Right; Location: Hand; Device: Angiocath; Gauge: 20 gauge; Needle Length: 1 in length; Insertion Attempts: 1; Patient Tolerance: tolerated well; Power Injectable Compatible: No; Removal Indication: no longer indicated; Removal Interventions: pressure dressing, catheter intact 06/25/21 0631 by Andressa Monroe RN 06/25/21 1351 by Carley Anderson RN Supraglottic Airway Mask Gerson: mask ventilation not attempted; Type: LMA; Size: 4; Attempts: 1; Confirmation: satisfactory chest rise, end tidal CO2 06/25/21 0925 by Elina Schaefer CRNA 06/25/21 1142 by Elina Schaefer CRNA Supraglottic Airway Type: LMA; Size: 4; Attempts: 1; Confirmation: end tidal CO2, SAO2, satisfactory chest rise 06/25/21 0925 by Elina Schaefer CRNA 06/25/21 1142 by Elina Schaefer CRNA documented in this encounter Social History Tobacco [...] OR Notes * Anesthesia Postprocedure Evaluation - Tay Melgar DO - 06/25/2021 12:09 PM CDT Phase I Postanesthesia Evaluation Including Modified Dena Score Patient seen and evaluated: Modified Dena Score: Score: 8 (06/25/21 114) COMMENTS: No apparent Anesthesia related complications RESPIRATORY FUNCTION: Respiration: able to breath and cough freely (06/25/21 114) [2=able to breathe and cough freely, 1=dyspnea, limited breathing or tachypnea, 0=apnea or mechanicventilator] O2 Saturation: needs O2 inhalation to maintain O2 saturation greater than 90% (06/25/21 114) [2=able to maintain O2 saturation greater than 92% on room air, 1=needs O2 inhalation to maintain O2 saturation greater than 90%, 0=O2 saturation less than 90% even with O2 supplement] Resp: 19 (06/25/21 1203)SpO2: 100 % (06/25/21 1203) CARDIOVASCULAR FUNCTION: Heart Rate: 88 bpm (06/25/21 1203) BP: (!) 150/70 (06/25/21 1200) Circulation: BP within 20% of preanesthetic level (06/25/21 1147) [2=BP within 20% of preanesthetic level, 1=BP within 20-49% of preanesthetic level, 0=BP within 50%of preanesthetic level] MENTAL STATUS, NEURO, ACTIVITY: PATIENT PARTICIPATION IN EVALUATION:yes Consciousness: arousable on calling (06/25/21 114) [2=fully awake, 1=arousable on calling, 0=not responding] Activity: able to move 4 extremities voluntarily or on command (06/25/21 114) [2=able to move 4 extremities voluntarily or on command, 1=able to move 2 extremities voluntarily or on command, 0=unable to move extremities voluntarily or on command] TEMPERATURE: Temp: 36.6 ??C (06/25/21 114) PAIN: NAUSEA AND VOMITING: no nausea and no vomiting POSTOPERATIVE HYDRATION: well hydrated Intake/Output Summary (Last 24 hours) at 06/25/2021 1209 Last data filed at 06/25/2021 1120 Gross per 24 hour Intake 800 ml Output -- Net 800 ml Tay Melgar DO 06/25/2021 12:09 PM * Anesthesia Handoff - Elina Schaefer CRNA - 06/25/2021 11:53 AM CDT Post-Anesthetic transfer of care report [...] acknowledgement of understanding. Vital Signs: BP: (!) 178/92 (06/25/2021 11:47 AM) Pulse: 88 (06/25/2021 11:47 AM) Temp: 36.6 ??C (06/25/2021 11:47 AM) Resp: 20 (06/25/2021 11:47 AM) SpO2: 100 % (06/25/2021 11:47 AM) 11:53 AM Elina Schaefer CRNA * Anesthesia Procedure Notes - Elina Schaefer CRNA - 06/25/2021 9:45 AM CDT Associated Order(s): Airway Airway Date/Time: 06/25/2021 9:25 AM Location: OR Plan: routine intubation Patient Identity Confirmed by: Verbally with patient and armband Airway: not difficult Indications and Patient Condition: Indications for Airway Management: Anesthesia Preoxygenated: Yes Mask Difficulty Assessment: 0 - not attempted Plan to extubate at end of case: Yes Final Airway Details: Final Airway Type: Supraglottic airway Final Supraglottic Airway: LMA SGA Size: 4 LMA placed Tube secured with: Tape Placement Verified by: auscultation, end tidal CO2 and chest rise Airway Seal Pressure (cm H2O): 8 Number of Attempts at Approach: 1 * Anesthesia Preprocedure Evaluation - Tay Melgar DO - 06/25/2021 6:06 AM CDT Relevant Problems CARDIOVASCULAR (+) Essential hypertension, benign Neuro/Psych (+) History of delivery (+) S/P YEHUDA (total abdominal hysterectomy) (+) S/P tubal ligation Anesthesia Evaluation Patient summary reviewed and Nursing [...] - negative ROS Endo/Other (+) diabetes mellitus (diet controlled, no meds) type 2 well controlled, Comments: Left Breast Cancer. Lost 36 lbs on chemo. Has no appitite. Abdominal (+) obese, Anesthesia History No history of anesthetic complications. Anesthesia Plan ASA Final: 3 General Intravenous induction Oral ETT airway maintenance NPO status > 8 hours (last to drink 1600 yesterday) Anesthetic plan and risks discussed with Patient. Plan discussed with Nurse Manager Data Warehousing and Surgeon. Post-op Pain Control Plan to [...] [facility] - [place] [address] [facility] [address] [place] [address] Aaron Smith MD [address] [facility] [address] [place] [address] 03/29/2025 12:30 PM CDT Appointment [facility] [place] [address] [address] [place] [address] [address] 03/29/2025 1:30 PM CDT Office Visit [facility] Breast [facility] [address] [address] [facility] [address] [place] [address] [place] [address] [address] [facility] [address] [address] documented as of this encounter Procedures Procedure Name Priority Date/Time Associated Diagnosis Comments MI ANES INSERT SUPRAGLOTTIC AIRWAY Routine 06/25/2021 9:25 AM CDT documented in this encounter Results * MI ANES INSERT SUPRAGLOTTIC AIRWAY (06/25/2021 9:25 AM CDT) Narrative Elina Schaefer CRNA - 06/25/2021 9:25 AM CDT Elina Schaefer CRNA ? 06/25/2021 ??9:46 AM Airway Date/Time: 06/25/2021 9:25 AM Location: OR Plan: routine intubation Patient Identity Confirmed by: ??Verbally with patient and armband Airway: not difficult Indications and Patient Condition: ??Indications for Airway Management: ??Anesthesia ??Preoxygenated: Yes ?Mask Difficulty Assessment: ??0 - not attempted ??Plan to extubate at end of case: Yes ?? Final Airway Details: ??Final Airway Type: ??Supraglottic airway ??Final Supraglottic Airway: ??LMA ??SGA Size: ??4 LMA placed ??Tube secured with: ??Tape ??Placement Verified by: auscultation, end tidal CO2 and chest rise ?Airway Seal Pressure (cm H2O): ??8 ??Number of Attempts at Approach: ??1 Tay Sujatha Talia DO PROCEDURE/MINOR ALVARENGA RGICAL ORDERABLES documented in this encounter Visit Diagnoses [...] 0927, Routine, Pre-op, Antibiotic Indication: Surgical prophylaxis Given 06/25/2021 9:27 AM CDT 2,000 mg dexamethasone (DECADRON) injection IV, INTRA-PROCEDURE PRN, Starting on Wed06/25/21 at 0928, Until Wed06/25/21 at 1154, Routine, Anesthesia Intra-op Given 06/25/2021 9:28 AM CDT 8 mg famotidine PF (PEPCID) 20 mg/2 mL injection IV, INTRA-PROCEDURE PRN, Starting on Wed06/25/21 at 0930, Until Wed06/25/21 at 1154, Routine, Anesthesia Intra-op Given 06/25/2021 9:30 AM CDT 20 mg fentaNYL PF (SUBLIMAZE) 50 mcg/mL injection IV, INTRA-PROCEDURE PRN, Starting on Wed06/25/21 at 0935, Until Wed06/25/21 at 1154, Routine, Anesthesia Intra-op Given 06/25/2021 10:06 AM CDT 25 mcg Given 06/25/2021 10:00 AM CDT 25 mcg Given 06/25/2021 9:35 AM CDT 25 mcg HYDROmorphone (DILAUDID) 2 mg/mL injection IV, INTRA-PROCEDURE PRN, Starting on Wed06/25/21 at 1038, Until Wed06/25/21 at 1154, Routine, Anesthesia Intra-op Given 06/25/2021 10:52 AM CDT 0.2 mg Given 06/25/2021 10:38 AM CDT 0.2 mg labetaloL (NORMODYNE;TRANDATE) 5 mg/mL injection IV, INTRA-PROCEDURE PRN, Starting on Wed06/25/21 at 1144, Until Wed06/25/21 at 1154, Routine, Anesthesia Intra-op Given 06/25/2021 11:44 AM CDT 5 mg lactated ringers infusion IV, at 150 mL/hr, PRE-PROCEDURE CONTINUOUS, Starting on Wed06/25/21 at 0615, Until Wed06/25/21 at 1554, Routine, Pre-op Continue from Pre-Op 06/25/2021 9:13 AM CDT 150 mL/hr New Bag 06/25/2021 9:04 AM CDT 150 mL/hr lidocaine (PF) (XYLOCAINE MPF) 60 mg/3 mL (2 %) injection syringe IV, INTRA-PROCEDURE PRN, Starting on Wed06/25/21 at 0920, Until Wed06/25/21 at 1154, Routine, Anesthesia Intra-op Given 06/25/2021 9:20 AM CDT 60 mg midazolam (PF) (VERSED) injection IV, INTRA-PROCEDURE PRN, Starting on Wed06/25/21 at 0913, Until Wed06/25/21 at 1154, Routine, Anesthesia Intra-op Given 06/25/2021 9:13 AM CDT 2 mg ondansetron (ZOFRAN) 4 mg/2 mL injection IV, INTRA-PROCEDURE PRN, Starting on Wed06/25/21 at 1119, Until Wed06/25/21 at 1154, Routine, Anesthesia Intra-op Given 06/25/2021 11:19 AM CDT 4 mg propofoL (DIPRIVAN) injection IV, INTRA-PROCEDURE PRN, Starting on Wed06/25/21 at 0920, Until Wed06/25/21 at 1154, Anesthesia Intra-op Given 06/25/2021 9:20 AM CDT 180 mg documented in this encounter Care Teams Vacuum Caster Relationship Specialty Start Date End Date Rosa Shi MD [address] [place] [address] PCP - General Family Practice 01/15/21 documented as of this encounter
--- OUTSIDE RECORDS SUMMARY | 2024-10-23 02:18 | XMS_ITS | Encounter Summary ---
Author Organization [facility] Address [address] Becerra: Epic Prelude ADT [place] [address] Care Team Providers Care Watermaster Name Role Phone Rosa Shi MD Primary Care Provider [phone] Encounter Details Date Type Department Care Team (Latest Contact Info) Description 07/17/2021 Travel Social History Tobacco Use Types Packs/Day [...] [facility] Oncology [facility] Hematology - [place] [address] [address] [facility] [address] [place] [address] Aaron Smith MD [address] [facility] [address] [place] [address] 03/29/2025 12:30 PM CDT Appointment [facility] [address] [place] [address] [place] [address] [facility] [address] [place] [address] 03/29/2025 1:30 PM CDT Office Visit [facility] Breast Surgery [place] [address] [address] [place] [address] [place] [address] [facility] [address] [place] [address] documented as of this encounter Visit Diagnoses Not on filedocumented in this encounter Care Teams Watermaster Relationship Specialty Start Date End Date Rosa Shi MD [address] [place] [address] PCP - General Family Practice 01/15/21 documented as of this encounter
--- OUTSIDE RECORDS SUMMARY | 2024-10-23 02:18 | XMS_ITS | Encounter Summary ---
Author Organization [facility] [employer] [facility] Address [address] [place] [address] Care Team Providers Care Gift Officer Name Role Phone Rosa Shi MD Primary Care Provider [phone] Reason for Visit * Reason Comments Chemotherapy 3 week F/U with labs and Tx Encounter Details Date Type Department Care Team (Late st Contact Info) Description 04/16/2021 10:00 AM CDT Office Visit [facility] Oncology and Hematology - [place] [address] [place] [address] [address] [place] [address] Aaron Smith MD [address] [facility] [address] [place] [address] Malignant neoplasm of areola of [...] have Coronavirus / COVID-19? No / Unsure 04/16/2021 9:51 AM CDT documented as of this encounter Last Filed Vital Signs Vital Sign Reading Time Taken Comments Blood Pressure 180/77 04/16/2021 9:53 AM CDT Pulse 80 04/16/2021 9:53 AM CDT Temperature 36.7 ??C (98 ??F) 04/16/2021 9:53 AM CDT Respiratory Rate - - Oxygen Saturation 97% 04/16/2021 9:53 AM CDT Inhaled Oxygen Concentration - - Weight 99.8 kg (220 lb) 04/16/2021 9:53 AM CDT Height 157.5 cm (5' 2 ) 04/16/2021 9:53 AM CDT Body Mass Index 40.24 04/16/2021 9:53 AM CDT documented in this encounter Progress Notes * Aaron Smith MD - 04/16/2021 10:35 AM CDT HEMATOLOGY / ONCOLOGY PROGRESS NOTE [...] into the office for follow-up visit. She is feeling fine with some tiredness and fatigue. Denies any nausea vomiting. No abdominal pain and chest pain. So far she is tolerating treatmentwell. No other new complaint. Review of system Constitutional: denies fevers, sweats, mild tiredness and fatigue HEENT: denies sinus congestion, hearing or vision problems Respiratory: denies cough, dyspnea, wheeze Cardiovascular: denies chest pain, exertional chest pressure/discomfort, nausea, syncope, shortnessof breath GI: denies constipation, dsyphagia, reflux symptoms, vomiting, melena, complain of intermittent nausea and diarrhea : denies dysuria, frequency, incontinence, [...] 3.9 hemoglobin 10.6 platelet 252,000 creatinine 0.9 @IMAGEIMP@ Assessment: Plan: Patient Active Problem List Diagnosis [...] 2021. Labs noted. Patient will proceed with cycle 4/6 of chemotherapy with TCH Perjeta today. She is getting more anemic. I have also instructed her to contact Dr. Zepeda office for any visits prior to the surgery. I will see her back in 3 weeks. Chemotherapy-induced neutropenia prophylaxis. Continue Neulasta. Chemotherapy-induced diarrhea. Continue Imodium. TOBACCO COUNSELING She is not a tobacco user. 04/16/2021 Aaron Smith MD documented in this encounter Plan of Treatment Upcoming Encounters Date Type Department Care Team (Late st Contact Info) Description 02/12/2025 1:00 PM CDT Office Visit [facility] Oncology and Hematology - [place] [address] [facility] [address] [place] [address] Aaron Smith MD [address] [facility] [address] [place] [address] 03/29/2025 12:30 PM CDT Appointment [facility] [address] [place] [address] [place] [address] [address] [facility] [address] [address] 03/29/2025 1:30 PM CDT Office Visit [facility] Breast Surgery [address] [address] [facility] [address] [place] [address] [place] [address] [address] [facility] [address] [place] [address] Scheduled Orders Name Type Priority Associated Diagnoses Orde r Schedule BASIC METABOLIC PANEL Lab Stat 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, estrogen receptor positive Expected: 05/07/2021 (Approximate), Expires: 04/16/2022 CBC WITH DIFFERENTIAL Lab Stat 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, estrogen receptor positive Expected: 05/07/2021 (Approximate), Expires: 04/16/2022 documented as of this encounter Visit Diagnoses Diagnosis 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, estrogen receptor positive- Primary documented in this encounter Care Teams Gift Officer Relationship Specialty Start Date End Date Rosa Shi MD [address] [place] [address] PCP - General Family Practice 01/15/21 documented as of this encounter
--- OUTSIDE RECORDS SUMMARY | 2024-10-23 02:18 | XMS_ITS | Encounter Summary ---
Author Organization [facility] Address [address] [place] [address] Care Team Providers Care Laborer Mine Name Role Phone Rosa Shi MD Primary Care Provider [phone] Reason for Visit * Reason Onset Date Comments Results 07/02/2021 Encounter Details Date Type Department Care Team (Late st Contact Info) Description 07/02/2021 Telephone [facility] BREAST SURGERY - [place] [address] [facility] [address] [place] [address] [place] [address] [facility] [address] [place] [address] Results Social History Tobacco Use Types Packs/Day Years [...] AM CDT documented as of this encounter Miscellaneous Notes * Telephone Encounter - Chayo Zepeda MD - 07/02/2021 4:11 PM CDT Rosa Babb 1965 07/02/2021 4:11 PM I called the patient today to discuss her pathology results from surgery. Surgery : Left Breast Wide Local Excision Lumpectomy With Needle Localization At 7:30 Am - Left andLeft Axillary [place] Lymph Node Biopsy With Nuc Med At 6:30 Am Possible Axillary Lymph Node Dissection - Left done on 06/25/2021 Pathology: 06/25/21 Left breast wide NL lumpectomy: invasive ductal carcinoma, 1.0 cm, high grade, < 1 mm from inferior margin, additional inferior margin clear. DCIS in 13 of 68 tissue blocks, high grade, < 1 mm from inferior margin, 2 mm from posterior margin, additional margins clear. 0/6 SNB, 0/4 additional palpable lymph nodes. Stage ypT1 ypN0 - ER/SD positive, HER2 2+ (FISH positive) Pathology: Results for orders placed or performed during the hospital encounter of 06/25/21 PATHOLOGY Result Value Ref Range CASE REPORT Surgical Pathology Report Case: [id number] Authorizing Provider: Chyao Zepeda MD Collected: 06/25/2021 10:24 AM Ordering Location: [facility] OUTPATIENT SURGERY Received: 06/25/2021 12:11 PM [facility] Pathologist: Jean Sosa DO Specimens: A) - [place] Lymph Node, Lt axillary sentinel lymph nodes -- FS B) - Axilla, left, LT axillary tail N.L.; sutures S/S, L/L C) - Breast, left, LT breast tissue, 3 wires; S/S, L/L D) - Nipple, left, LT sub-nipple bx; clip @ true margin E) - Axilla, left, Add. LT axillary sentinel lymph nodes F) - Breast, left, Add. post. margin; clip @ true margin G) - Breast, left, Add. inf. margin; clip @ true margin FINAL DIAGNOSIS [place] lymph nodes, left axillary, biopsy (FS 1-4): -Six lymph nodes, no metastatic carcinoma identified (0/6). Axillary tail, left, excision: -Single lymph node with biopsy site changes, no metastatic carcinoma identified (0/1). -Benign breast tissue. -No in situ or invasive carcinoma identified. Breast, left, wide local excision lumpectomy: -Invasive ductal carcinoma, with the following features: 1. Size: 10 mm. 2. Greenwood score: 8/9 (grade 3). 3. Margins: Invasive [...] -Attached skin with no significant histopathologic abnormality. Scipio lymph nodes, additional left axillary, biopsy: -Four lymph nodes, no metastatic carcinoma identified (0/4). Breast, left, additional posterior margin, excision: -Benign fibroadipose tissue. -No in situ or invasive carcinoma identified. Breast, left, additional inferior margin, excision: -Benign breast tissue. -No in situ or invasive carcinoma identified. GROSS DESCRIPTION Received are seven containers labeled Rosa Babb. Received in the first container additionally labeled left axillary sentinel lymph nodes is a 7 x6 x 1.6 cm portion of pink-yellow adipose [...] in FS1, the remnant of which is submittedin A1. The 1.3 cm node is bisected and all submitted for frozen section in FS2, the remnant of which is submitted in A2. The 2 cm node is bisected and all submitted for frozen section in FS3, the remn ant of which is submitted in A3. The [...] of a localization wire extends from the inferior-medialaspect, and the straight end from the lateral-posterior surface. The tissue is inked as follows: Superior-blue, inferior-black, anterior-yellow, posterior-green. Serial sections from medial to lateral into 10 levels reveals soft ramirez-yellow fat with minimal cisse fibrous tissue. No discrete biopsy site or gross lesion is identified. Also submitted from medial to lateral as follows: B1-B3-level 1 (medial margin), sectioned, B4-B5-level 2, B6-B7-level 3, I5-A84-wbqxl 4, G92-K72-zpzct 5, B 16-B 18-level 6, E78-T37-pfqxq 7, B 23-B 25-level 8, Y04-Y17-xboas 9, Q08-P67-jnbjq 10 (lateral margin), sectioned. Collected at 1024, in formalin at 1120. Received in the third container labeled left breast tissue 3 wires, SS/LL is a 183 g portion of yellow-ramirez fatty tissue that is 14 cm M-L by 6.5 cm S-I by 6 cm A-P. The anterior surface consists ofa skin ellipse that is 11.3 x 4 [...] follows: C1-C3-level 1 (medial margin), C4-C7-level 2, V7-D76-ivrxj 3, C13-C 17-level 4, C 18-C 28-level [...] E3. The fourth possible node is 1.9 cm,bisected and all submitted in E4. Collected at 11:00 and in formalin at 1115. The remaining fat is saved in the specimen container. Received in the sixth container labeled left breast additional posterior margin, clip at true margin is a 4.5 x 2.9 x 0.9 cm unoriented piece of ramirez- yellow fatty tissue. A clip is present on [...] 4.5 x 0.8 cm unoriented piece of ramirez- yellow fatty tissue. A clip is present on one surface, marking the true inferior margin. This surface is marked with blue ink and the opposite surface with black ink. The specimen is serially sectioned and all submitted in G1 through G11. Collected at 1113 and in formalin at 1145. MICROSCOPIC DESCRIPTION The slides are labeled [id number] and Rosa Babb. Sections from the left axillary sentinel lymph [...] breast tissue. No in situ or invasive carcinomais identified. Sections of the additional left axillary [...] in situ or invasive carcinoma is identified. INTRAOPERATIVE CONSULTATION Scipio lymph nodes nodes, left axillary (FS1-FS4): - No tumor identified in [address] Zepeda notified of results by phone in OR 4. Dr. Dorothy Patel OPERATIVE PROCEDURE 1: BREAST LUMPECTOMY 2: SENTINEL LYMPH NODE BIOPSY CLINICAL INFORMATION 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, estrogen receptor positive [C50.012, Z17.0] SYNOPTIC REPORT INVASIVE CARCINOMA OF THE BREAST: Resection INVASIVE CARCINOMA OF THE BREAST: COMPLETE EXCISION - All Specimens 8th Edition - Protocol posted: 12/20/2019 SPECIMEN Procedure: Excision (less than total mastectomy) Specimen Laterality: Left TUMOR Histologic Type: Invasive carcinoma of no special type (ductal) Glandular (Acinar) / Tubular Differentiation: Score 3 Nuclear Pleomorphism: Score 3 Mitotic Rate: Score 2 Overall Grade: Grade 3 (scores of 8 or 9) Tumor Size: Greatest dimension of largest invasive focus (Millimeters): 10 mm Ductal Carcinoma In Situ (DCIS): Present Size (Extent) of DCIS: Cannot be determined Number of Blocks with DCIS: 13 Number of Blocks Examined: 68 Architectural Patterns: Cribriform Architectural Patterns: Solid Nuclear Grade: Grade III (high) Tumor Extent: Lymphovascular Invasion: Present Dermal Lymphovascular Invasion: Not identified Treatment Effect in the Breast: Probable or definite response to presurgical therapy in the invasive carcinoma Treatment Effect in the Lymph Nodes: No lymph node metastases. Fibrous scarring or histiocytic aggregates, possibly related to prior lymph node metastases with pathologic complete response MARGINS Invasive Carcinoma Margins: Uninvolved by invasive carcinoma Distance from Closest Margin (Millimeters): Less than: 1 mm Closest Margin(s): Inferior DCIS Margins: Uninvolved by DCIS Distance from Closest Margin (Millimeters): Less than: 1 mm Closest Margin(s): Inferior LYMPH NODES Regional Lymph Nodes: Uninvolved by tumor cells Total Number of Lymph Nodes Examined: 11 Number of Scipio Nodes Examined: 6 PATHOLOGIC STAGE CLASSIFICATION (pTNM, AJCC 8th Edition) TNM Descriptors: y (post-treatment) Primary Tumor (pT): pT1b Regional Lymph Nodes (pN): pN0 COMMENT Special stain and/or immunohistochemical results are interpreted with controls that demonstrate appropriate staining reactions. Note on use of immunocytochemistry reagents: This test was developed and its performance characteristics determined by , Department of Laboratory Medicine. It has not [...] examination and dissection, and case sign out mayhave been performed in part or completely in the following laboratories: , CLIA #[id number] [address] [place] [address] [facility], [place] #[id number] 1 [place] [address] [facility], [place] #[id number] [address] , [place] [address] I explained that her lymph nodes were negative for metastatic carcinoma and her margins were clear.She will not require any additional oncologic surgical intervention at this time. I answered her preliminary questions. She will come into the office in 1-2 weeks for a postoperative visit to have a more thorough discussion and to proceed with the next step of treatment. Chayo Zepeda MD documented in this encounter Plan of Treatment Upcoming Encounters Date Type Department Care Team (Late st Contact Info) Description 02/12/2025 1:00 PM CDT Office Visit [facility] Oncology and Hematology [facility] [address] [facility] 200 [place] [address] Aaron Smith MD [address] [facility] [address] [place] [address] 03/29/2025 12:30 PM CDT Appointment [facility] [place] [address] [place] [address] [place] [address] [facility] [address] [place] [address] 03/29/2025 1:30 PM CDT Office Visit [facility] Breast Surgery [place] [address] [facility] [address] [place] [address] [place] [address] [facility] [address] [address] documented as of this encounter Visit Diagnoses Diagnosis 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, estrogen receptor positive- Primary documented in this encounter Care Teams Laborer Mine Relationship Specialty Start Date End Date Rosa Shi MD [address] [place] [address] PCP - General Family Practice 01/15/21 documented as of this encounter
--- OUTSIDE RECORDS SUMMARY | 2024-10-23 02:18 | XMS_ITS | Encounter Summary ---
Author Organization [facility] [employer] [facility] Address [address] [place] [address] Care Team Providers Care Mold Bunch Trimmer Name Role Phone Rosa Shi MD Primary Care Provider [phone] Encounter Details Date Type Department Care Team (Late st Contact Info) Description 06/04/2021 Orders Only [facility] Oncology and Hematology - [place] [address] [place] [address] [place] Malignant neoplasm of [...] Hematology - [place] [address] [place] [address] Aaron Smith MD [address] [phone] 03/29/2025 12:[address] [facility] [place] [address] [place] [address] [place] [address] [facility] 120 [place] [address] 03/29/2025 1:30 PM CDT Office Visit [facility] Breast Surgery [place] [address] [facility] [address] [place] [address] [place] [address] [facility] [address] [place] [address] documented as of this encounter Visit Diagnoses Diagnosis 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, estrogen receptor positive documented in this encounter Care Teams Mold Bunch Trimmer Relationship Specialty Start Date End Date Rosa Shi MD [address] [place] [phone] PCP - General Family Practice 01/15/21 documented as of this encounter
--- OUTSIDE RECORDS SUMMARY | 2024-10-23 02:18 | XMS_ITS | Encounter Summary ---
Author Organization [facility] Address [address] [place] [address] Care Team Providers Care Beveling Machine Operator Name Role Phone Rosa Shi MD Primary Care Provider Encounter Details Date Type Department Care Team (Late st Contact Info) Description 05/29/2021 Chart Note [facility] Radiation Therapy [address] [place] [address] Charlene Jacobo MD [address] [facility] [address] [place] [address] Social History Tobacco Use Types Packs/Day Years [...] as of this encounter Progress Notes * Charlene Jacobo MD - 05/29/2021 10:08 AM CDT . documented in this encounter Plan of Treatment Upcoming Encounters Date Type Department Care Team (Late st Contact Info) Description 02/12/2025 1:00 PM CDT Office Visit [facility] Oncology and Hematology - [place] [address] [facility] 200 [place] [address] Aaron Smith MD [address] [facility] [address] [place] [address] 03/29/2025 12:30 PM CDT Appointment [facility] [address] [address] [place] [address] [place] [address] [facility] 120 [place] [address] 03/29/2025 1:30 PM CDT Office Visit [facility] Breast Surgery [place] [address] [facility] [address] [place] [address] [place] [address] [facility] [address] [place] [address] documented as of this encounter Visit Diagnoses Not on filedocumented in this encounter Care Teams Beveling Machine Operator Relationship Specialty Start Date End Date Rosa Shi MD [address] [place] [address] PCP - General Family Practice 01/15/21 documented as of this encounter
--- OUTSIDE RECORDS SUMMARY | 2024-10-23 02:18 | XMS_ITS | Encounter Summary ---
Author Organization [facility] Address [address] [place] [address] Care Team Providers Care Embosser Apprentice Name Role Phone Rosa Shi MD Primary Care Provider [phone] Reason for Visit * Reason Comments Nurse Navigation Encounter Details Date Type Department Care Team (Late st Contact Info) Description 07/10/2021 Chart Note [facility] Oncology Patient Navigation [address] [place] [address] Sonia Herrera, SRINIVASAN Nurse Navigation Social History [...] of this encounter Progress Notes * Sonia Hrerera RN - 07/10/2021 3:31 PM CDT Navigation Assessment Note Pt call to office. Pt called to discuss plan of care after medical oncology follow up. Went over expectations for upcoming biologic therapy and radiation expectations. Offered support to patient. Pt has contact info for this RN and will reach out with any non-emergent needs. This RN to follow up. Alyce Herrera, RN, Nurse Navigator documented in this encounter Plan of Treatment Upcoming Encounters Date Type Department Care Team ([facility] st Contact Info) Description 02/12/2025 1:00 PM CDT Office Visit [facility] Oncology and Hematology - [place] [address] [facility] 200 [place] [address] Aaron Smith MD [address] [facility] [address] [place] [address] 03/29/2025 12:30 PM CDT Appointment [facility] [place] [address] [place] [address] [place] [address] [facility] [address] [place] [address] 03/29/2025 1:30 PM CDT Office Visit [facility] Breast Surgery [facility] [address] [facility] [address] [place] [address] [place] [address] [address] documented as of this encounter Visit Diagnoses Not on filedocumented in this encounter Care Teams Embosser Apprentice Relationship Specialty [place] [address] [place] [phone] PCP - General Family Practice 01/15/21 documented as of this encounter
--- OUTSIDE RECORDS SUMMARY | 2024-10-23 02:18 | XMS_ITS | Encounter Summary ---
Author Organization [facility] Address [address] [place] [address] Care Team Providers Care Street Light Mechanic Name Role Phone Rosa Shi MD Primary Care Provider [phone] Reason for Referral * Eval and Treat (Routine) - Closed Specialty Diagnoses / Procedures Referred By Contac t Referred To Contact Diagnoses Infiltrating ductal carcinoma of breast, [place] [address] [address] Referral ID Status Reason Start Date Expiration Date Visits Re quested Visits Authorized [id number] Closed 06/23/2021 06/23/2022 1 1 Reason for Visit * Reason Comments Nurse Navigation Encounter Details Date Type Department Care Team (Late st Contact Info) Description 06/23/2021 Chart Note [facility] Oncology Patient Navigation [address] [place] [address] Sonia Herrera, SRINIVASAN Nurse Navigation Social History [...] Progress Notes * Sonia Herrera RN - 06/23/2021 1:47 PM CDT Navigation Assessment Note Spoke with patient prior to upcoming surgery. Discussed preoperative instructions, flow of day, andpost op expectations/suggestions. Also offered support for questions patient had about lymphedema likelihood and prevention. Referralplaced for lymphedema therapy following surgery. Pt aware [facility] will be reaching outto schedule appointment. Pt has contact info for this RN and will reach out with any non-emergent needs. This RN to follow up. Alyce Herrera RN, Nurse Navigator documented in this encounter Plan of Treatment Upcoming Encounters Date Type Department Care Team (Late st Contact Info) Description 02/12/2025 1:00 PM CDT Office Visit [facility] Oncology and Hematology - [place] [address] [place] [address] [facility] [address] [place] [phone] [place] [address] [place] [address] [address] [place] [address] 03/29/2025 12:30 PM CDT Appointment [facility] [address] [place] [address] [place] [address] [place] [address] [facility] [address] [place] [address] 03/29/2025 1:30 PM CDT Office Visit [facility] Breast Surgery [place] [address] [facility] [address] [place] [address] [place] [address] [address] [facility] [address] [place] [address] Scheduled Referrals Name Type Priority Associated Diagnoses Orde r Schedule AMB REFERRAL TO REHAB ONCOLOGY Outpatient Referral Routine Infiltrating ductal carcinoma of breast, unspecified laterality Ordered: 06/23/2021 documented as of this encounter Visit Diagnoses Diagnosis Infiltrating ductal carcinoma of breast, unspecified laterality- Primary documented in this encounter Care Teams Street Light Mechanic Relationship Specialty Start Date End Date Rosa Shi MD [address] [place] [address] PCP - General Family Practice 01/15/21 documented as of this encounter
--- OUTSIDE RECORDS SUMMARY | 2024-10-23 02:18 | XMS_ITS | Encounter Summary ---
Author Organization [facility] Address [address] Becerra: Epic Prelude ADT EFRAÍN SOLANO [address] Care Team Providers Care Ordnance Technician Name Role Phone Rosa Shi MD Primary Care Provider [phone] Encounter Details Date Type Department Care Team (Latest Contact Info) Description 05/20/2021 Travel Social History Tobacco Use Types Packs/Day [...] Rehabilitation Oncology and Hematology - [place] [address] [place] [address] Aaron Smith MD [address] [facility] [address] [place] [address] 03/29/2025 12:30 PM CDT Appointment [facility] [address] [place] [address] [place] [address] [facility] [address] [place] [address] 03/29/2025 1:30 PM CDT Office Visit [facility] Breast Surgery [address] [address] [facility] [address] [place] [address] [place] [address] [facility] [address] [place] [address] documented as of this encounter Visit Diagnoses Not on filedocumented in this encounter Care Teams Ordnance Technician Relationship Specialty Start Date End Date Rosa Shi MD [address] [place] [address] PCP - General Family Practice 01/15/21 documented as of this encounter
--- OUTSIDE RECORDS SUMMARY | 2024-10-23 02:18 | XMS_ITS | Encounter Summary ---
Author Organization [facility] Address [address] [place] [address] Care Team Providers Care Special Education Para Professional Name Role Phone Rosa Shi MD Primary Care Provider [phone] Reason for Visit * Reason Comments Cancer Talk Encounter Details Date Type Department Care Team (Late st Contact Info) Description 05/15/2021 2:15 PM CDT Office Visit [facility] BREAST SURGERY - CLYTMealnie GIPSON [address] [facility] [address] [place] [address] [place] [address] [place] [address] Malignant neoplasm of areola of [...] have Coronavirus / COVID-19? No / Unsure 05/15/2021 2:04 PM CDT documented as of this encounter Last Filed Vital Signs Vital Sign Reading Time Taken Comments Blood Pressure 152/95 05/15/2021 2:13 PM CDT Pulse - - Temperature - - Respiratory Rate - - Oxygen Saturation - - Inhaled Oxygen Concentration - - Weight 96.6 kg (213 lb) 05/15/2021 2:13 PM CDT Height - - Body Mass Index 38.96 05/07/2021 8:55 AM CDT documented in this encounter Progress Notes * Chayo Zepeda MD - 05/15/2021 2:15 PM CDT PATIENT: Rosa Babb : 1965 DATE: 05/15/2021 Breast Cancer, LEFT UIQ Clinical Stage T2 N0 Mx Date of Diagnosis: 12/23/2020 Path: Left breast US guided core biopsy - invasive ductal carcinoma, intermediate grade ER positive (80%), NC weakly positive (1-5%), HER2 2+ equivocal (FISH - amplified) - positive. . Surgeon(s): Duane Surgery: Med Onc: Dr. Smith OncotypeDX: score = Chemo: TCHP x 6 cycles (will completed May 28, 2021) Rad Onc: Dr. Moreira Radiation: Antiestrogen Therapy: Genetic testing: Rosa Babb is a 55 y.o. 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 She is . She drinks a rare amount. She is a non-smoker. She is heretoday with her brother to discuss surgical options. MILIEU MANAGER HX: OB History 3 Para 1 [...] HX SURGICAL OTHER 2006 vulvar lichen sclerosis ? ? NC INSJ TUNNELED CVC W/O SUBQ PORT/YARD CLEANER AGE 3 YR/> Right 01/29/2021 RIGHT PORT A CATHETER PLACEMENT POSSIBLE LEFT PORT A CATHETER PLACEMENT performed by Chayo Zepeda MD at [facility] OR ??? TONSILLECTOMY ALLERGY: No Known Allergies MEDS: Current Outpatient Medications Medication Sig Dispense Refill ??? prochlorperazine maleate (COMPAZINE) 10 mg tablet Take 1 Tablet (10 mg) by mouth every 6 hours as needed for Nausea/Emesis. 90 Tablet 3 ??? potassium chloride (KLOR-CON) 20 mEq Extended Release tablet Take 1 Tablet (20 mEq) by mouth 2 times daily. 60 Tablet 1 ??? ondansetron (Zofran) 8 mg Tablet Take 1 Tablet (8 mg) by mouth every 8 hours as needed for Nausea/Emesis. 90 Tablet 3 ??? HYDROcodone-acetaminophen (NORCO) 5-325 mg tablet Take 1 Tablet by mouth every 4 hours as needed for Pain, Moderate. Max Daily Amount: 6 Tablets 15 Tablet 0 ??? lidocaine-prilocaine (EMLA) 2.5-2.5 % Cream Apply to affected area see administration instructions. Apply to port site 1 hour prior to needle sticks- cover in saran wrap 30 Gram 3 ??? turmeric root extract 500 mg Capsule Take by mouth. ??? metFORMIN (GLUCOPHAGE) 500 mg tablet Take 500 mg by mouth. ??? cyanocobalamin (VITAMIN B-12) 500 mcg tablet Take 500 mcg by mouth. ??? atorvastatin (LIPITOR) 20 mg tablet Take 20 mg by mouth. ??? amLODIPine (NORVASC) 5 mg tablet Take 5 mg by mouth. ??? blood-glucose meter (BLOOD GLUCOSE MONITOR KIT [...] 1 Puff by inhalation 2 times daily. ??? multivitamin (MULTIPLE VITAMIN) Oral tablet Take 1 Tab by mouth daily. ??? Calcium-Magnesium Oral Tab Take by mouth. ??? lisinopril-hydrochlorothiazide (ZESTORETIC) 20-12.5 mg Oral tablet Take 1 Tab by mouth daily. No current facility-administered medications for this [...] level: Not on file Occupational History Employer: [employer] Tobacco Use ??? Smoking status: Never [...] Gatherings with Friends and Family: ??? Attends Restorationist Services: ??? Active Member of Clubs or Organizations: ??? Attends Club or Organization Meetings: ??? Marital Status: Intimate Partner Violence: ??? Fear of Current or Ex-Partner: ??? Emotionally Abused: ??? Physically Abused: ??? Sexually Abused: BP (!) 152/95 Wt 96.6 kg (213 lb) BMI 38.96 kg/m?? PHYSICAL EXAM: Well-developed, well-nourished, pleasant woman. [...] personally reviewed the following films: Mammogram: 08/22/2020 ([place], [place]) - left breast UOQ posterior depth with mass measures 2.8 x 2.1 cm, stable. Left breast ultrasound: 12/18/2020 ([place], [place]) - newly palpable left breast periareolar 9:00 irregular mass, measures 1.2 cm. BIRADs 4. Left breast US guided core biopsy - 12/23/2020 - invasive ductal carcinoma, intermediate grade ER positive (80%), NC weakly positive (1-5%), HER2 2+ equivocal (FISH [...] - negative IMPRESSION /PLAN: 55 y.o. postmenopausal -Malian woman with palpable left breast invasive carcinoma, [...] data. Chayo Zepeda MD Breast Surgical Oncology [phone] cc: Rosa Shi MD [address] [place] [address] documented in this encounter Plan of Treatment Upcoming Encounters Date Type Department Care Team (Late st Contact Info) Description 02/12/2025 1:00 PM CDT Office Visit [facility] Oncology and Hematology - [place] [address] [place] [address] [address] [place] [phone] Aaron Smith MD [address] [facility] [address] [place] [phone] 03/29/2025 12:30 PM CDT Appointment [facility] [address] [place] [address] [place] [address] [address] 03/29/2025 1:30 PM CDT Office Visit [facility] Breast Surgery [address] [address] [address] [facility] [facility] [address] [place] [address] [place] [address] [address] documented as of this encounter Visit Diagnoses Diagnosis 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, estrogen receptor positive- Primary documented in this encounter Care Teams Special Education Para Professional Relationship Specialty Start Date End Date Rosa Shi MD [address] [place] [address] PCP - General Family Practice 01/15/21 documented as of this encounter
--- OUTSIDE RECORDS SUMMARY | 2024-10-23 02:18 | XMS_ITS | Encounter Summary ---
Author Organization [facility] Address [address] Becerra: Epic Prelude ADT EFRAÍN SOLANO [address] Care Team Providers Care Physical Aerodynamicist Name Role Phone Rosa Shi MD Primary Care Provider [phone] Encounter Details Date Type Department Care Team (Latest Contact Info) Description 04/16/2021 Travel Social History Tobacco Use Types Packs/Day [...] Description 02/12/2025 1:00 PM CDT Office Visit [facility] Oncology and Hematology - [place] [address] [place] [address] Aaron Smith MD [address] [facility] [address] [place] [address] 03/29/2025 12:30 PM CDT Appointment [facility] [address] [place] [address] [place] [address] [facility] [address] [place] [address] 03/29/2025 1:30 PM CDT Office Visit [facility] Breast Surgery [address] [address] [facility] [facility] [address] [place] [address] [place] [address] [facility] [address] [place] [address] documented as of this encounter Visit Diagnoses Not on filedocumented in this encounter Care Teams Physical Aerodynamicist Relationship Specialty Start Date End Date Rosa Shi MD [address] [place] [address] PCP - General Family Practice 01/15/21 documented as of this encounter
--- OUTSIDE RECORDS SUMMARY | 2024-10-23 02:18 | XMS_ITS | Encounter Summary ---
Author Organization [facility] Address [address] [place] [address] Care Team Providers Care Clinical Operations Specialist Name Role Phone Rosa Shi MD Primary Care Provider [phone] Reason for Visit * Reason Comments Nurse Navigation Encounter Details Date Type Department Care Team (Late st Contact Info) Description 06/27/2021 Chart Note [facility] Oncology Patient Navigation [address] [place] [address] Sonia Herrera, SRINIVASAN Nurse Navigation Social History [...] Progress Notes * Sonia Herrera RN - 06/27/2021 11:04 AM CDT Navigation Assessment Note Spoke with patient post surgery. Pt reports doing overall well. Pain well tolerated, eating and drinking without difficulty. Denies needs and concerns at this time. Pt is aware that pathology typically takes 4-6 business days. Pt has contact info for this RN and will reach out with any needs. This RN to follow up. Alyce Herrera RN, Nurse Navigator documented in this encounter Plan of Treatment Upcoming Encounters Date Type Department Care Team ([facility] st Contact Info) Description 02/12/2025 1:00 PM CDT Office Visit [facility] Oncology and Hematology - [place] [address] [facility] [address] [place] [address] Aaron Smith MD [address] [facility] [address] 03/29/2025 12:[address] [facility] [address] [address] [place] [address] [place] [address] [facility] [address] [place] [address] 03/29/2025 1:30 PM CDT Office Visit [facility] Breast Surgery [facility] [address] [facility] [address] [place] [address] [place] [address] [facility] [address] [place] [address] documented as of this encounter Visit Diagnoses Not on filedocumented in this encounter Care Teams Clinical Operations Specialist Relationship Specialty Start Date End Date Rosa Shi MD [address] [place] [address] PCP - General Family Practice 01/15/21 documented as of this encounter
--- OUTSIDE RECORDS SUMMARY | 2024-10-23 02:18 | XMS_ITS | Encounter Summary ---
Author Organization [facility] Address [address] [place] [address] Care Team Providers Care Roll Dough Divider Name Role Phone Rosa Shi MD Primary Care Provider [phone] Reason for Referral * Radiology Services (Routine) - Closed Specialty Diagnoses / Procedures Referred By Contac t Referred To Contact Diagnoses 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, estrogen receptor positive Procedures MAM[place] [address] [place] [address] Referral ID Status Reason Start Date Expiration Date Visits Re quested Visits Authorized [id number] Closed 05/15/2021 06/15/2022 1 1 Encounter Details Date Type Department Care Team (Late st Contact Info) Description 05/15/2021 Orders Only [facility] BREAST SURGERY - CLYTN ALEXANDERKSMelanie [address] [place] [address] [place] [address] [address] [place] [address] Malignant neoplasm of areola of [...] [facility] - [place] [address] [place] [address] [address] [place] [address] Aaron Smith MD [address] [facility] [address] [place] [address] 03/29/2025 12:[address] [facility] [address] [place] [address] [place] [address] [address] 03/29/2025 1:30 PM CDT Office Visit [facility] Breast Surgery [address] [facility] [address] [place] [address] [place] [address] [facility] [address] [place] [address] documented as of this encounter Results * (ABNORMAL) MAMMO BREAST US LEFT LTD (05/20/2021 11:01 AM CDT) Anatomical Region Laterality Modality Left Ultrasound 05/20/2021 10:0 5 AM CDT Impressions 05/20/2021 3:46 PM CDT IMPRESSION: ?? 1. Positive response to therapy. 2. There were two areas biopsied within the medial left breast by distance of 4 cm however on the MRI additional area at the 9:00 position was noted more posteriorly with the total abnormal area of approximately 6 cm. If the patient is planning on lumpectomy this more posterior area should be included within the lumpectomy specimen. The area could be localized at the time of surgery utilizing digital mammographic guidance. 3. There were two relatively adjacent intramammary lymph nodes within the upper outer quadrant of the left breast one of which was biopsied. Both areas should be included in a lumpectomy specimen if the patient desires breast conservation therapy. OVERALL FINAL ASSESSMENT: ??BI-RADS CATEGORY 6: Known biopsy proven malignancy, appropriate action should be taken RECOMMENDATIONS: ?? 1. Recommend appropriate treatment. ?? Narrative 05/20/2021 3:46 PM CDT LIMITED ULTRASOUND OF THE LEFT BREAST ? DATE: 05/20/2021 ?? DICTATION LOCATION: ??[place] INDICATION: Assess for response to therapy. TECHNIQUE: Limited real-time cisse-scale ultrasound imaging of the left breast was performed and supplemented with color Doppler imaging as needed. COMPARISON: Comparison made to study dated January 2021. FINDINGS: Targeted ultrasound of the left breast was performed. Within the medial breast in the periareolar region at the 9:00 position 1 cm from the nipple there has been a decrease in size of the irregular hypoechoic solid mass which was previously biopsied and shown to represent carcinoma. This mass now measures 1.1 x 1.1 x 0.9 cm. The satellite lesion further laterally at the 9:00 position has also decreased in size. This now measures 8 mm x 3 mm x 4 mm and contains a biopsy site marker. On the previous MRI there was an additional area of concern at the 9:00 position further posterior which was not biopsied. Within the upper outer breast there has been a decrease in size of the previously biopsied intramammary lymph node which now measures 9 mm x 4 mm x 7 mm. This contains a biopsy site marker. The additional enlarged lymph node identified on the mammogram of January 2021 is not visible on this study. These intramammary lymph nodes are spread over a distance of 5 cm. Procedure Note Derek Ponce MD - 05/20/2021 LIMITED ULTRASOUND OF THE LEFT BREAST DATE: 05/20/2021 DICTATION LOCATION: [place] INDICATION: Assess for response to therapy. TECHNIQUE: Limited real-time cisse-scale ultrasound imaging of the left breast was performed and supplemented with color Doppler imaging as needed. COMPARISON: Comparison made to study dated January 2021. FINDINGS: Targeted ultrasound of the left breast was performed. Within the medial breast in the periareolar region at the 9:00 position 1 cm from the nipple there has been a decrease in size of the irregular hypoechoic solid mass which was previously biopsied and shown to represent carcinoma. This mass now measures 1.1 x 1.1 x 0.9 cm. The satellite lesion further laterally at the 9:00 position has also decreased in size. This now measures 8 mm x 3 mm x 4 mm and contains a biopsy site marker. On the previous MRI there was an additional area of concern at the 9:00 position further posterior which was not biopsied. Within the upper outer breast there has been a decrease in size of the previously biopsied intramammary lymph node which now measures 9 mm x 4 mm x 7 mm. This contains a biopsy site marker. The additional enlarged lymph node identified on the mammogram of January 2021 is not visible on this study. These intramammary lymph nodes are spread over a distance of 5 cm. IMPRESSION: 1. Positive response to therapy. 2. There were two areas biopsied within the medial left breast by distance of 4 cm however on the MRI additional area at the 9:00 position was noted more posteriorly with the total abnormal area of approximately 6 cm. If the patient is planning on lumpectomy this more posterior area should be included within the lumpectomy specimen. The area could be localized at the time of surgery utilizing digital mammographic guidance. 3. There were two relatively adjacent intramammary lymph nodes within the upper outer quadrant of the left breast one of which was biopsied. Both areas should be included in a lumpectomy specimen if the patient desires breast conservation therapy. OVERALL FINAL ASSESSMENT: BI-RADS CATEGORY 6: Known biopsy proven malignancy, appropriate action should be taken RECOMMENDATIONS: 1. Recommend appropriate treatment. Chayo Zepeda MD MAMMO ORDERABLES documented in this encounter Visit Diagnoses Diagnosis 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, estrogen receptor positive- Primary 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, estrogen receptor positive documented in this encounter Care Teams Roll Dough Divider Relationship Specialty Start Date End Date Rosa Shi MD [address] [place] [address] PCP - General Family Practice 01/15/21 documented as of this encounter
--- OUTSIDE RECORDS SUMMARY | 2024-10-23 02:18 | XMS_ITS | Encounter Summary ---
Author Organization [facility] Address [address] Becerra: Epic Prelude ADT EFRAÍN SOLANO [address] Care Team Providers Care Spectacle Truer Name Role Phone Rosa Shi MD Primary Care Provider [phone] Encounter Details Date Type Department Care Team (Latest Contact Info) Description 03/26/2021 Travel Social History Tobacco Use Types Packs/Day [...] have Coronavirus / COVID-19? No / Unsure 03/26/2021 8:55 AM CDT documented as of this encounter Plan of Treatment Upcoming Encounters Date Type Department Care Team (Late st Contact Info) Description 02/12/2025 1:00 PM CDT Office Visit [facility] Oncology and Hematology - [place] [address] [facility] [address] [place] [address] Aaron Smith MD [address] [facility] [address] [place] [address] 03/29/2025 12:[address] [facility] [address] [place] [address] [place] [address] [facility] [address] [place] [address] 03/29/2025 1:30 PM CDT Office Visit [facility] Breast Surgery [address] [address] [facility] [address] [place] [address] [place] [address] [facility] [address] [place] [address] documented as of this encounter Visit Diagnoses Not on filedocumented in this encounter Care Teams Spectacle Truer Relationship Specialty Start Date End Date Rosa Shi MD [address] [place] [address] PCP - General Family Practice 01/15/21 documented as of this encounter
--- OUTSIDE RECORDS SUMMARY | 2024-10-23 02:18 | XMS_ITS | Encounter Summary ---
Author Organization [facility] Address [address] [place] [address] Care Team Providers Care Yarn Polishing Machine Operator Name Role Phone Rosa Shi MD Primary Care Provider [phone] Reason for Visit * Reason Comments Nurse Navigation Encounter Details Date Type Department Care Team (Late st Contact Info) Description 05/16/2021 Chart Note [facility] Oncology Patient Navigation [address] [place] [address] Sonia Herrera, RN Nurse Navigation Social History [...] Progress Notes * Sonia Herrera RN - 05/16/2021 2:32 PM CDT Navigation Assessment Note Spoke to patient following consultation with Dr. Zepeda. Pt reports appointment went well and the plan is to receive an ultrasound and schedule surgery for 4 weeks after last chemotherapy infusion. Pt reports plan is to meet with radiation oncology next week. Pt denies any needs or concerns at this time. Pt has contact info for this RN and will reach out with any non-emergent needs. This RN to follow up. Alyce Herrera, RN, Nurse Navigator documented in this encounter Plan of Treatment Upcoming Encounters Date Type Department Care Team (Late st Contact Info) Description 02/12/2025 1:00 PM CDT Office Visit [facility] Oncology and Hematology [facility] [address] [facility] [address] [place] [address] Aaron Smith MD [address] [facility] [address] [place] [address] 03/29/2025 12:30 PM CDT Appointment [facility] [place] [address] [place] [address] [place] [address] [facility] [address] [place] [address] 03/29/2025 1:30 PM CDT Office Visit [facility] Breast Surgery [address] [place] [address] [address] [facility] [address] [place] [address] [place] [address] [facility] [address] [place] [address] documented as of this encounter Visit Diagnoses Not on filedocumented in this encounter Care Teams Yarn Polishing Machine Operator Relationship Specialty Start Date End Date Rosa Shi MD [address] [place] [phone] PCP - General Family Practice 01/15/21 documented as of this encounter
--- OUTSIDE RECORDS SUMMARY | 2024-10-23 02:18 | XMS_ITS | Encounter Summary ---
Author Organization [facility] Address [address] [place] [address] Care Team Providers Care Watch Crystal Edge Grinder Name Role Phone Rosa Shi MD Primary Care Provider [phone] Encounter Details Date Type Department Care Team (Late st Contact Info) Description 06/05/2021 Orders Only [facility] BREAST SURGERY - CLYTN CLRKSN [address] [facility] [address] [place] [address] [place] [address] [place] [address] Malignant neoplasm of areola of [...] PM CDT Office Visit [facility] Oncology and Hematology - [place] [address] [facility] [address] [place] [address] Aaron Smith MD [address] [facility] [address] [place] [address] 03/29/2025 12:[address] [facility] [place] [address] [place] [address] [place] [address] [facility] [address] [place] [address] 03/29/2025 1:30 PM CDT Office Visit [facility] Breast Surgery [facility] [address] [facility] [address] [place] [address] [place] [address] [facility] [address] [place] [address] documented as of this encounter Visit Diagnoses Diagnosis 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, estrogen receptor positive- Primary documented in this encounter Care Teams Watch Crystal Edge Grinder Relationship Specialty Start Date End Date Rosa Shi MD [address] [place] [address] PCP - General Family Practice 01/15/21 documented as of this encounter
--- OUTSIDE RECORDS SUMMARY | 2024-10-23 02:18 | XMS_ITS | Encounter Summary ---
Author Organization [facility] Address [address] [place] [address] Care Team Providers Care Residential Sales Consultant Name Role Phone Rosa Shi MD Primary Care Provider [phone] Encounter Details Date Type Department Care Team (Late st Contact Info) Description 06/24/2021 Orders Only [facility] BREAST SURGERY - [place] [facility] [address] [place] [address] Tiffanie Steinberg Malignant neoplasm of areola of left breast [...] Medical Center Oncology and Hematology - Levi [facility] Kim Crowell [address] [place] [phone] Aaron Smith MD [address] [facility] [address] [place] [address] 03/29/2025 12:[address] [facility] [address] [place] [address] [place] [address] [facility] [address] [place] [address] 03/29/2025 1:30 PM CDT Office Visit [facility] Breast Surgery [place] [address] [facility] [address] [place] [address] [place] [address] [facility] [address] [place] [address] documented as of this encounter Procedures Procedure Name Priority Date/Time Associated Diagnosis Comments 2019 NOVEL CORONAVIRUS (COVID-19) PCR DETECTION Routine 06/21/2021 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, estrogen receptor positive documented in this encounter Results * 2019 NOVEL CORONAVIRUS (COVID-19) PCR DETECTION (06/21/2021) Upper Respiratory ENTIRE OROPHARYNX / Unknown Chayo Zepeda MD MICROBIOLOGY - G ENERAL ORDERABLES [facility] documented in this encounter Visit Diagnoses Diagnosis 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, estrogen receptor positive documented in this encounter Care Teams Residential Sales Consultant Relationship Specialty Start Date End Date Rosa Shi MD [address] [place] [phone] PCP - General Family Practice 01/15/21 documented as of this encounter
--- OUTSIDE RECORDS SUMMARY | 2024-10-23 02:18 | XMS_ITS | Encounter Summary ---
Author Organization [facility]ir [facility] Address [address] [place] [address] Care Team Providers Care Oven Dauber Name Role Phone Rosa Shi MD Primary Care Provider [phone] Encounter Details Date Type Department Care Team (Late Contact Info) Description 04/23/2021 Orders Only [facility] Oncology and Hematology [facility] Radha Crowell [address] [place] [address] Vita Astorga, RN Malignant neoplasm of areola of left breast [...] Description 02/12/2025 1:00 PM CDT Office Visit [facility] Oncology and Hematology [facility] Josh Crowell [address] [place] [phone] Aaron Smith MD [address]114 [facility] [address] [place] [phone] 03/29/2025 12:30 PM CDT Appointment [facility] [address] [place] [phone] [place] [address] [facility] [address] [place] [address] 03/29/2025 1:30 PM CDT Office Visit [facility] Breast Surgery [place] [address] [facility] [address] [place] [address] [place] [address] [facility] [address] [place] [address] documented as of this encounter Procedures Procedure Name Priority Date/Time Associated Diagnosis Comments ECHO COMPLETE Stat 04/23/2021 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, estrogen receptor positive documented in this encounter Results * ECHO COMPLETE (04/23/2021) Aaron Smith MD ORDERABLES documented in this encounter Visit Diagnoses Diagnosis 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, estrogen receptor positive documented in this encounter Care Teams Oven Dauber Relationship Specialty Start Date End Date Rosa Shi MD [address] [place] [phone] PCP - General Family Practice 01/15/21 documented as of this encounter
--- OUTSIDE RECORDS SUMMARY | 2024-10-23 02:18 | XMS_ITS | Encounter Summary ---
Author Organization [facility] Address [address] [place] [address] Care Team Providers Care Wafer Fabrication Technician Name Role Phone Rosa Shi MD Primary Care Provider [phone] Encounter Details Date Type Department Care Team (Late st Contact Info) Description 06/05/2021 Orders Only [facility] BREAST SURGERY - [place] [facility] [address] [facility] [address] [place] [address] [place] [address] [place] [place] [address] Malignant neoplasm of [...] Center Oncology and Hematology - Levi [address] [facility] [address] [place] [address] Aaron Smith MD [address] [facility] [address] [place] [address] 03/29/2025 12:30 PM CDT [facility] [address] [place] [address] [place] [address] [facility] [address] [place] [address] 03/29/2025 1:30 PM CDT Office Visit [facility] [address] [facility] [address] [place] [address] [place] [address] [facility] [address] [place] [address] documented as of this encounter Results * 2019 NOVEL CORONAVIRUS (COVID-19) PCR DETECTION (06/21/2021) Upper Respiratory ENTIRE OROPHARYNX / Unknown Chayo Zepeda MD MICROBIOLOGY - G ENERAL ORDERABLES [facility] documented in this encounter Visit Diagnoses Diagnosis 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, estrogen receptor positive- Primary documented in this encounter Care Teams Wafer Fabrication Technician Relationship Specialty Start Date End Date Rosa Shi MD [address] [place] [phone] PCP - General Family Practice 01/15/21 documented as of this encounter
--- OUTSIDE RECORDS SUMMARY | 2024-10-23 02:18 | XMS_ITS | Encounter Summary ---
Author Organization [facility] Address [address] [place] [address] Care Team Providers Care Healthcare Network Consultant Name Role Phone Rosa Shi MD Primary Care Provider [phone] Reason for Referral * Radiology Services (Routine) - Closed Specialty Diagnoses / Procedures Referred By Vi jackson Referred To Contact Diagnoses 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, estrogen receptor positive Procedures MAMMO NEEDLE [place] [address] [facility] [address] [place] [address] Referral ID Status Reason Start Date Expiration Date V isits Requested Visits Authorized [id number] Closed Ordering Dept to Review 05/19/2021 06/19/2022 1 1 Reason for Visit * Auth/Cert Specialty Diagnoses / Procedures Referred By Vi jackson Referred To Contact Diagnoses 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, estrogen receptor positive 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, estrogen receptor positive [C50.012, Z17.0] Procedures RI MASTECTOMY, PARTIAL RI BX/REMV,LYMPH NODE,DEEP AXILL CHG LYMPHATICS & LYMPH GLANDS IMAGING RI REMOVE ARMPITS LYMPH NODES COMPLT RI PERQ DEVICE PLACEMT BREAST LOC 1ST LES W GUIDNCE RI PERQ BREAST LOC DEVICE PLACEMT 1ST [place] [address] [facility] [address] [place] [address] Referral ID Status Reason Start Date Expiration Date Visits Re quested Visits Authorized [id number] 05/19/2021 1 1 Encounter Details Date Type Department Care Team (Latest Contact Info) Description 06/25/2021 7:12 AM CDT - 06/25/2021 11:59 PM CDT Hospital Encounter [facility] [address] [address] [place] [phone] [place] [address] [facility] [address] [place] [address] Discharge Disposition: Home or Self Care [...] Puff by inhalation Continuous as needed. [facility] Use as directed 12/01/2020 blood sugar diagnostic [...] [facility] Oncology and Hematology [facility] [address] [facility] [address] [place] [address] Aaron Smith MD [address] [facility] [address] [place] [address] 03/29/2025 12:30 PM CDT Appointment [facility] [place] [address] [place] [address] [place] [address] [address] 03/29/2025 1:30 PM CDT Office Visit [facility] Breast Surgery [place] [address] [facility] [address] [place] [address] [place] [address] [facility] [address] [place] [address] documented as of this encounter Procedures Procedure Name Priority Date/Time Associated Diagnosis Comments MAMMO NEEDLE LOC EA LESION LT Routine 06/25/2021 8:50 AM CDT 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, estrogen receptor positive documented in this encounter Results * MAMMO NEEDLE LOC EA LESION LT [...] MAR Action Action Date Dose Rate Site lidocaine PF 1% (XYLOCAINE MPF) injection 30 mL 30 mL, See Admin Instructions, ONE TIME ONLY, 1 dose, On Wed06/25/21 at 0900, Routine Admin by Another Clinician (Comment) 06/25/2021 8:15 AM CDT 16 mL Operative Site methylene blue (UROLENE BLUE) 1 % (10 mg/mL) injection 5 mg 5 mg, See Admin Instructions, ONE TIME ONLY, 1 dose, On Wed06/25/21 at 0900, Routine Admin by Another Clinician (Comment) 06/25/2021 8:15 AM CDT 1.6 mg Operative Site sodium bicarbonate 4.2 % (0.5 mEq/mL) syringe 5 mEq 5 mEq, See Admin Instructions, ONE TIME ONLY, 1 dose, On Wed06/25/21 at 0900, Routine Started by Another Clinician 06/25/2021 8:15 AM CDT 2.5 mEq Operative Site documented in this encounter Care Teams Healthcare Network Consultant Relationship Specialty Start Date End Date Rosa Shi MD [address] [place] [address] PCP - General Family Practice 01/15/21 documented as of this encounter
--- OUTSIDE RECORDS SUMMARY | 2024-10-23 02:18 | XMS_ITS | Encounter Summary ---
Author Organization [facility] Address [address] [place] [address] Care Team Providers Care Ship'S Surveyor Name Role Phone Rosa Shi MD Primary Care Provider [phone] Reason for Referral * Radiology Services (Routine) - Closed Specialty Diagnoses / Procedures Referred By Vi jackson Referred To Contact Diagnoses 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, estrogen receptor positive Procedures MAMMO POST [place] [address] [facility] [address] [place] [address] Referral ID Status Reason Start Date Expiration Date V isits Requested Visits Authorized [id number] Closed Ordering Dept to Review 05/19/2021 06/19/2022 1 1 Reason for Visit * Auth/Cert Specialty Diagnoses / Procedures Referred By Vi jackson Referred To Contact Diagnoses 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, estrogen receptor positive 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, estrogen receptor positive [C50.012, Z17.0] Procedures OK MASTECTOMY, PARTIAL OK BX/REMV,LYMPH NODE,DEEP AXILL CHG LYMPHATICS & LYMPH GLANDS IMAGING OK REMOVE ARMPITS LYMPH NODES COMPLT OK PERQ DEVICE PLACEMT BREAST LOC 1ST LES W GUIDNCE OK PERQ BREAST LOC DEVICE PLACEMT 1ST [place] [address] [address] [facility] [address] [place] [address] Referral ID Status Reason Start Date Expiration Date Visits Re quested Visits Authorized [id number] 05/19/2021 1 1 Encounter Details Date Type Department Care Team (Latest Contact Info) Description 06/25/2021 7:13 AM CDT - 06/25/2021 11:59 PM CDT Hospital Encounter [facility] [address] [place] [address] [place] [address] [facility] [address] [place] [address] Discharge Disposition: Home or Self Care [...] Puff by inhalation Continuous as needed. L[facility] Use as directed 12/01/2020 blood sugar diagnostic [...] [facility] Oncology and Hematology [facility] [address] [facility] [address] [place] [address] Aaron Smith MD [address] [facility] [address] [place] [address] 03/29/2025 12:30 PM CDT Appointment [facility] [address] [address] [place] [address] [place] [address] [address] 03/29/2025 1:30 PM CDT Office Visit [facility] Breast Surgery [place] [address] [facility] [address] [place] [address] [place] [address] [facility] [address] [place] [address] documented as of this encounter Procedures Procedure Name Priority Date/Time Associated Diagnosis Comments MAMMO POST PROCEDURE MAMMO LEFT Routine 06/25/2021 11:12 AM CDT Malignant neoplasm of areola of [...] positive documented in this encounter Care Teams Ship'S Surveyor Relationship Specialty Start Date End Date Rosa Shi MD [address] [place] [address] PCP - General Family Practice 01/15/21 documented as of this encounter
--- OUTSIDE RECORDS SUMMARY | 2024-10-23 02:18 | XMS_ITS | Encounter Summary ---
Author Organization [facility] Address [address] [place] [address] Care Team Providers Care Fire Sprinkler Designer Name Role Phone Kevin Shi MD Primary Care Provider Reason for Visit * Auth/Cert Specialty Diagnoses / Procedures Referred By Contac t Referred To Contact Diagnoses 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, estrogen receptor positive 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, estrogen receptor positive [C50.012, Z17.0] Procedures WI MASTECTOMY, PARTIAL WI BX/REMV,LYMPH NODE,DEEP AXILL CHG LYMPHATICS & LYMPH GLANDS IMAGING WI REMOVE ARMPITS LYMPH NODES COMPLT WI PERQ DEVICE PLACEMT BREAST LOC 1ST LES W GUIDNCE WI PERQ BREAST LOC DEVICE PLACEMT 1ST [place] [address] [place] [address] Referral ID Status Reason Start Date Expiration Date Visits Re quested Visits Authorized [id number] 05/19/2021 1 1 Encounter Details Date Type Department Care Team (Late st Contact Info) Description 06/25/2021 8:20 AM CDT - 06/25/2021 10:12 AM CDT Surgery [facility] [place] [address] [place] [address] [place] [address] [address] LEFT BREAST WIDE LOCAL EXCISION LUMPECTOMY WITH NEEDLE LOCALIZATION AT 7:30 AM Surgery Details Date/Time Status Location OR Service Patient Class Case Class Case Type Trauma Case? 06/25/2021 8:20 AM Posted [facility] CC OR CC OR 04 General Surgery Surgical OP/Extended Care Elective No Panel 1 Procedure LRB Anes Op Region Wound Class Comments LEFT BREAST WIDE LOCAL EXCIS ION LUMPECTOMY WITH NEEDLE LOCALIZATION AT 7:30 AM Left General Breast Clean-I LEFT AXILLARY SENTINEL LYMPH NODE BIOPSY WITH NUC MED AT 6:30 AM POSSIBLE AXILLARY LYMPH NODE DISSECTION Left General Axilla Clean-I Surgeon Surgeon Role Service Panel Christiano Shankar MD Primary General Surgery 1 documented in this encounter Social History Tobacco [...] Sign Reading Time Taken Comments Blood Pressure 138/62 06/25/2021 6:19 AM CDT Pulse 78 06/25/2021 6:19 AM CDT Temperature 36.1 ??C (97 ??F) 06/25/2021 6:19 AM CDT Respiratory Rate 21 06/25/2021 6:19 AM CDT Oxygen Saturation 99% 06/25/2021 6:19 AM CDT Inhaled Oxygen Concentration - - Weight 94.3 kg (208 lb) 06/25/2021 6:19 AM CDT Height 157.5 cm (5' 2 ) 06/25/2021 6:19 AM CDT Body Mass Index 38.04 06/25/2021 6:19 AM CDT documented in this encounter Discharge Instructions * Discharge Instructions* Christiano Shankar MD - 06/25/2021 11:53 AM CDT [facility] BREAST SURGERY [address] [place] [address] Post operative instructions: Activity: _x__Walk around every [...] OK to supplementfor break through pain with Oketo/ Hydrocodone 5mg / Acetaminophen 500mg. Do not [...] call this number to be connected to theMapluck service. Christiano Shankar MD Breast Surgical Oncology documented in this encounter Medications at Time of Discharge Medication Sig Dispensed Refills Start Date End Date blood-glucose meter (BLOOD GLUCOSE MONITOR KIT MISC) Diagnosis: Diabetes type 2 Blood testing frequency: 3 times a day 12/01/2020 ALBUTEROL INHALATION Take 1 Puff by inhalation Continuous as needed. LANCETS [facility] Use as directed 12/01/2020 blood sugar diagnostic [...] bx additional nodule: IDC ER positive (80%), WI weakly positive (1-5%), HER2 2+ equivocal (FISH - amplified) - positive. Surgeon(s): [facility]: Med Onc: Dr. Smith Chemo: neoadjuvant TCHP x 6 cycles (February 12 - completed May 28, 2021) Rad Onc: Dr. Jacobo Radiation: Antiestrogen Therapy: Genetic testing: Kevin Chakraborty is a 55 y.o. 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 She is . She drinks a rare amount. She is a non-smoker. She is heretoday with her brother to discuss surgical options. 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 ? WI INSJ TUNNELED CVC W/O SUBQ PORT/CONCRETE PRECAST MOULDER AGE 3 YR/> Right 01/29/2021 RIGHT PORT A CATHETER PLACEMENT POSSIBLE LEFT PORT A CATHETER PLACEMENT performed by Christiano Shankar MD at [facility] OR ??? TONSILLECTOMY ALLERGY: No Known [...] level: Not on file Occupational History Employer: [employer] Tobacco Use ??? Smoking status: Never [...] Gatherings with Friends and Family: ??? Attends Cheondoism Services: ??? Active Member of Clubs or [...] personally reviewed the following films: Mammogram: 08/22/2020 ([place], [place]) - left breast UOQ posterior depth with mass measures 2.8 x 2.1 cm, stable. Left breast ultrasound: 12/18/2020 ([place], [place]) - newly palpable left breast periareolar [...] - negative IMPRESSION /PLAN: 55 y.o. postmenopausal -[place] woman with palpable left breast invasive carcinoma, [...] data. Christiano Shankar MD Breast Surgical Oncology [phone] cc: No referring provider defined for this encounter. documented in this encounter OR Notes * Operative Report - Christiano Shankar MD - 06/25/2021 12:11 PM CDT [facility] OPERATIVE REPORT - [id number] Date of Procedure: 06/25/2021 Name: KEVIN CHAKRABORTY [...] Left 2:00, Left Axillary Tail PROCEDURES PERFORMED: [place] node biopsy of deep axillary node(s) Left Side Intraoperative identification of sentinel lymph node with Non-radioactive dye Injection Left Side Lumpectomy needle localization x 4 wires Left Side ASSISTANTS: Peanut Sheller - GODWIN ORR ESTIMATED BLOOD LOSS: Minimal FINDINGS: Radiograph specimen with biopsy clips x 2 and lesions and 3 wires Good hemostasis throughout the entirety of the procedure bulky matted axillary lymph nodes SPECIMEN REMOVED: [place] Lymph Node-Lt axillary sentinel lymph nodes -- [...] were noted ANESTHESIA: General General Local IMPLANTS: HOUSEKEEPER CLIP SURGICLIP II RAMIREZ 9.75IN 940601 (QTY - 1) HOUSEKEEPER CLIP SURGICLIP II RAMIREZ 9.75IN [id number] (QTY - 1) HEMOSTATIC SURGICEL 2X14IN 1950 (QTY - 1) ANESTHESIOLOGIST: Anesthesiologist - Tay Melgar DO STAFF: Barrel Rifler - MARGARITA ALMENDAREZ Scrub - MATEUS HANNA Peanut Sheller - GODWIN ORR INDICATIONS: Kevin Chakraborty is [...] any complications and was transferred to recovery. [id number] by CHRISTIANO SHANKAR MD, 06/25/2021 12:11 CDT (Approved) Created in [facility] documented in this encounter Plan of Treatment Upcoming Encounters Date Type Department Care Team (Late st Contact Info) Description 02/12/2025 1:00 PM CDT Office Visit [facility] Oncology and Hematology - [employer] [address] [place] [address] [facility] [address] [place] [address] Aaron Smith MD [address] [facility] [address] [place] [address] 03/29/2025 12:30 PM CDT Appointment [facility] [address] [place] [address] [place] [address] [address] [facility] [address] [place] [address] 03/29/2025 1:30 PM CDT Office Visit [facility] Breast Surgery [address] [address] [facility] [address] [place] [address] [place] [address] [facility] [address] [place] [address] documented as of this encounter Procedures [...] (ABNORMAL) POC GLUCOSE (06/25/2021 11:52 AM CDT) Pathologist [facility] GLUCOSE POC 142(H) 74 - 99 mg/dL 06/25/2021 11:52 AM CDT [facility] RADIOLOGY MULTI SITE/OPS [place] ADMINISTRATIVE SECRETARY NAME POC YANIRA LYNN 06/25/2021 11:52 AM CDT [facility] RADIOLOGY MULTI SITE/OPS [place] Blood, whole 06/25/2021 11:5 2 AM CDT 06/25/2021 12:01 PM CDT Christiano Shankar MD POINT OF CARE TE [facility] Organization Address City/State/ZIP Co de Phone Number [facility] RADIOLOGY MULTI SITE/OPS [place] CLIA # [id number] [place] [address] * PATHOLOGY (06/25/2021 10:24 AM CDT) CASE REPORT Surgical Pathology Report ? Case: [id number] ? Authorizing Provider: ??Christiano Shankar MD ??Collected: ? 06/25/2021 10:24 AM ? Ordering Location: ? [facility] ?? Received: ?06/25/2021 12:11 PM ? [facility] [place] ? Pathologist: ? Sheila, Jean R, DO ? Specimens: ?? A) - [place] Lymph Node, Lt axillary sentinel lymph nodes [...] @ true margin ? 1 1:00 PM [facility] [employer] [facility] FINAL DIAGNOSIS [place] lymph nodes , left axillary, biopsy (FS 1-4): -Six lymph nodes, no metastatic carcinoma identified (0/6). Axillary tail, left, excision: -Single lymph node with biopsy site changes, no metastatic carcinoma identified (0/1). -Benign breast tissue. -No in situ or invasive carcinoma identified. Breast, left, wide local excision lumpectomy: -Invasive ductal carcinoma, with the following features: 1. Size: 10 mm. 2. Jose score: 8/9 (grade 3). 3. Margins: Invasive [...] -Attached skin with no significant histopathologic abnormality. [place] lymph nodes, additional left axillary, biopsy: -Four lymph nodes, no metastatic carcinoma identified (0/4). Breast, left, additional posterior margin, excision: -Benign fibroadipose tissue. -No in situ or invasive carcinoma identified. Breast, left, additional inferior margin, excision: -Benign breast tissue. -No in situ or invasive carcinoma identified. 1:00 PM [facility] [employer] [facility] S DESCRIPTION Received are seven containers labeled [...] (medial margin), sectioned, B4-B5-level 2, B6-B7-level 3, Y1-R99-fbdmd 4, H51-Y47-totaj 5, B 16-B 18-level 6, T39-N68-mpkga 7, B 23-B 25-level 8, Q21-M24-tfupn 9, U63-R26-cpkof 10 (lateral margin), sectioned. Collected at 1024, [...] follows: C1-C3-level 1 (medial margin), C4-C7-level 2, P6-L00-qdpuc 3, C13-C 17-level 4, C 18-C 28-level [...] in formalin at 1145. 1 1:00 PM [facility] MICROSCOPIC DESCRIPTION The slides are labeled [id number] and Kevin Chakraborty. Sections from the left [...] invasive carcinoma is identified. 1 1:00 PM [facility] [employer] [facility] INTRAOPERATIVE CONSULTATION [place] lymph nodes nodes, left axillary (FS1-FS4): - No tumor identified in [address] Shankar notified of results by phone in OR 4. Dr. Dorothy Patel 1 1:00 PM [facility] OPERATIVE PROCEDURE 1: BREAST LUMPECTOMY 2: SENTINEL LYMPH NODE BIOPSY 1 1:00 PM [facility] CLINICAL INFORMATION 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, estrogen receptor positive [C50.012, Z17.0] 1 1:00 PM CDT [facility] SYNOPTIC REPORT INVASIVE CARCINOMA O F THE [...] Lymph Nodes Examined: ?11 ? Number of [place] Nodes Examined: ?6 PATHOLOGIC STAGE CLASSIFICATION (pTNM, AJCC 8th Edition) ? TNM Descriptors: ?y (post-treatment) ?? Primary Tumor (pT): ?pT1b ?? Regional Lymph Nodes (pN): ?pN0 1 1:00 PM CDT [facility] COMMENT Special stain and/or immunohistochemical results are interpreted with controls that demonstrate appropriate staining reactions. Note on use of immunocytochemistry reagents: This test was developed and its performance characteristics determined by [facility], Department of Laboratory Medicine. It has not [...] part or completely in the following laboratories: [facility], CLIA #[id number] [address] [place] [address] [id number] [address] [place] [address] [facility], [place] #[id number] [address] [place] [address] 1 1:00 PM CDT [facility] Tissue ([place] Lymph Node) Collection / Unknown 06/25/2021 10:24 [...] Shankar MD PATHOLOGY/CYTOLO GY ORDERABLES [facility]# [id number] [address] [place] [address] * MAMMO US GUIDE NEEDLE PLACEMENT (06/25/2021 [...] - 99 mg/dL 06/25/2021 7:11 AM CDT [facility] RADIOLOGY MULTI SITE/OPS [place] ADMINISTRATIVE SECRETARY NAME POC REED AVILA 06/25/2021 7:11 AM CDT [facility] RADIOLOGY MULTI SITE/OPS [place] Blood, whole 06/25/2021 7:11 AM CDT 06/25/2021 7:22 AM CDT Christiano Shankar MD POINT OF CARE TE [facility] MULTI SITE/OPS [place] CLIA # [id number] [address] [place] [address] documented in this encounter Visit Diagnoses Diagnosis [...] Given 06/25/2021 6:30 AM CDT 975 mg bupivacaine PF (SENSORCAINE MPF) 2.5 mg/mL (0.25%) injection INTRA-PROCEDURE PRN, Starting on Wed06/25/21 at 0947, Until Wed06/25/21 at 1146, Routine, Anesthesia Intra-op Given 06/25/2021 9:47 AM CDT 50 mL Operative Site diphenhydrAMINE (BENADRYL) injection 12.5 mg 12.5 mg, [...] Given 06/25/2021 12:14 PM CDT 50 mcg HYDROcodone-acetamin ophen (NORCO) 5-325 mg per tablet 1 Tablet [...] Pain, Routine, PACU isosulfan blue (LYMPHAZURIN) injection INTRA-PROCEDURE PRN, Starting on Wed06/25/21 at 0936, Until Wed06/25/21 at 1146, Routine, Anesthesia Intra-op Given 06/25/2021 9:36 AM CDT 3 mL Operative Site lactated ringers infusion IV, at 150 [...] PACU sodium chloride 0.9 % irrigation solution INTRA-PROCEDURE PRN, Starting on Wed06/25/21 at 0947, Until Wed06/25/21 at 1146, Routine, Anesthesia Intra-op Given 06/25/2021 10:48 AM CDT 500 mL Operative Site Given 06/25/2021 9:47 AM CDT 500 mL Op erative Site documented in this encounter Active and Recently [...] 0927, Routine, Pre-op, Antibiotic Indication: Surgical prophylaxis 0927 (Given - Provid er: Elina Schaefer CRNA) [...] 0904 (New Bag - Prov ider: Yanira Lynn RN)0913 (Continue from Pre-Op - Provider: Christiano Shankar [...] Routine, PACU 1214 (Given - Provid er: Calrey Anderson RN)1255 (Given - Provider: Carley Anderson [...] MD) documented in this encounter Care Teams Fire Sprinkler Designer Relationship Specialty Start Date End Date Kevin Shi MD [address] [place] [address] PCP - General Family Practice 01/15/21 documented as of this encounter
--- OUTSIDE RECORDS SUMMARY | 2024-10-23 02:18 | XMS_ITS | Encounter Summary ---
Author Organization [facility] Address [address] Bec[place]: Epic Prelude ADT [place] [address] Care Team Providers Care Bulk Folder Name Role Phone Rosa Shi MD Primary Care Provider [phone] Encounter Details Date Type Department Care Team (Latest Contact Info) Description 05/28/2021 Travel Social History Tobacco Use Types Packs/Day [...] Health) Oncology and Hematology - [place] [address] [facility] [address] [place] [address] Aaron Smith MD [address] [facility] [address] [place] [address] 03/29/2025 12:30 PM CDT Appointment [facility] [address] [place] [address] [place] [address] [facility] [address] [place] [address] 03/29/2025 1:30 PM CDT Office Visit [facility] Breast Surgery [address] [address] [facility] [address] [place] [address] [place] [address] [facility] [address] [place] [address] documented as of this encounter Visit Diagnoses Not on filedocumented in this encounter Care Teams Bulk Folder Relationship Specialty Start Date End Date Rosa Shi MD [address] [place] [address] PCP - General Family Practice 01/15/21 documented as of this encounter
--- OUTSIDE RECORDS SUMMARY | 2024-10-23 02:18 | XMS_ITS | Encounter Summary ---
Author Organization [facility] Address [address] [place] [address] Care Team Providers Care Pooling Operator Name Role Phone Rosa Shi MD Primary Care Provider [phone] Reason for Visit * Reason Comments Nurse Navigation Encounter Details Date Type Department Care Team (Late st Contact Info) Description 07/16/2021 Chart Note [facility] Oncology Patient Navigation [address] [place] [address] Sonia Herrera, SRINIVASAN Nurse Navigation Social History [...] Progress Notes * Sonia Herrera RN - 07/16/2021 12:23 PM CDT Navigation Assessment Note Spoke to patient following radiation oncology consult and simulation. Pt reports it went well and states she will be receiving 34 treatments. Offered support for questions patient had about radiation and Herceptin/Perjeta therapy and timing of radiation. Pt denies further needs and concerns. Pt has contact info for this RN and will reach out with any non-emergent needs. This RN to follow up. Alyce Herrera, RN, Nurse Navigator documented in this encounter Plan of Treatment Upcoming Encounters Date Type Department Care Team ([facility] st Contact Info) Description 02/12/2025 1:00 PM CDT Office Visit [facility] Oncology and Hematology [facility] [address] [facility] [address] [place] [address] Aaron Smith MD [address] [facility] [address] [place] [address] 03/29/2025 12:30 PM CDT Appointment [facility] [address] [address] [place] [address] [place] [address] [facility] [address] [place] [address] 03/29/2025 1:30 PM CDT Office Visit [facility] Breast Surgery [facility] [address] [facility] [address] [place] [address] [place] [address] [facility] [address] [place] [address] documented as of this encounter Visit Diagnoses Not on filedocumented in this encounter Care Teams Pooling Operator Relationship Specialty Start Date End Date Rosa Shi MD [address] [place] [address] PCP - General Family Practice 01/15/21 documented as of this encounter
--- OUTSIDE RECORDS SUMMARY | 2024-10-23 02:18 | XMS_ITS | Encounter Summary ---
Author Organization [facility] Address [address] [facility] [address] Becerra: Epic Prelude ADT [place] [address] Care Team Providers Care Portable Feed Mill Operator Name Role Phone Rosa Shi MD Primary Care Provider [phone] Encounter Details Date Type Department Care Team (Latest Contact Info) Description 06/11/2021 Travel Social History Tobacco Use Types Packs/Day [...] [facility] Oncology and Hematology - [place] [address] [facility] [address] [place] [address] Aaron Smith MD [address] [facility] [address] [place] [address] 03/29/2025 12:30 PM CDT Appointment [facility] [address] [place] [address] [place] [address] [facility] [address] [place] [address] 03/29/2025 1:30 PM CDT Office Visit [facility] Breast Surgery [address] [address] [address] [facility] [address] [place] [address] [place] [address] [facility] [address] [place] [address] documented as of this encounter Visit Diagnoses Not on filedocumented in this encounter Care Teams Portable Feed Mill Operator Relationship Specialty Start Date End Date Rosa Shi MD [address] [place] [address] PCP - General Family Practice 01/15/21 documented as of this encounter
--- OUTSIDE RECORDS SUMMARY | 2024-10-23 02:18 | XMS_ITS | Encounter Summary ---
Author Organization [facility] Address [address] [place] [address] Care Team Providers Care Trim Technician Name Role Phone Rosa Shi MD Primary Care Provider [phone] Reason for Visit * Reason Comments Post-op Visit Encounter Details Date Type Department Care Team (Late st Contact Info) Description 07/17/2021 10:00 AM CDT Office Visit [facility] BREAST SURGERY - [place] [address] [facility] [address] [place] [address] [place] [address] [place] [address] Malignant neoplasm of areola of [...] Sign Reading Time Taken Comments Blood Pressure 148/70 07/17/2021 9:55 AM CDT Pulse - - Temperature - - Respiratory Rate - - Oxygen Saturation - - Inhaled Oxygen Concentration - - Weight 96.6 kg (213 lb) 07/17/2021 9:55 AM CDT Height 157.5 cm (5' 2 ) 07/17/2021 9:55 AM CDT Body Mass Index 38.96 07/17/2021 9:55 AM CDT documented in this encounter Progress Notes * Chayo Zepeda MD - 07/17/2021 10:09 AM CDT PATIENT: Rosa Babb : 1965 DATE: 07/17/2021 CHIEF COMPLAINT: Post-operative visit. HPI: The patient underwent Left Breast Wide Local Excision Lumpectomy With Needle Localization At 7:30 Am - Left and Left Axillary Dalhart Lymph Node Biopsy With Nuc Med At 6:30 Am Possible AxillaryLymph Node Dissection - Left on 06/25/2021. She reports that she is healing well. Vitals: 07/17/21 0955 BP: (!) 148/70 On exam her left breast and axillary incision are healing nicely. There is no evidence of infection. Pathology: 06/25/21 Left breast wide NL lumpectomy: invasive ductal carcinoma, 1.0 cm, high grade, < 1 mm from inferior margin, additional inferior margin clear. DCIS in 13 of 68 tissue blocks, high grade, < 1 mm from inferior margin, 2 mm from posterior margin, additional margins clear. 0/6 SNB, 0/4 additional palpable lymph nodes. Stage ypT1 ypN0 - ER/WV positive, HER2 2+ (FISH positive) ?? PATHOLOGY: Results for orders placed or performed during the hospital encounter of 06/25/21 PATHOLOGY Result Value Ref Range CASE REPORT Surgical Pathology Report Case: [id number] Authorizing Provider: Chayo Zepeda MD Collected: 06/25/2021 10:24 AM Ordering Location: [facility] OUTPATIENT SURGERY Received: 06/25/2021 12:11 PM HURST EBLLA BERG Pathologist: Jean Sosa DO Specimens: A) - Dalhart Lymph Node, Lt axillary sentinel lymph nodes [...] margin; clip @ true margin FINAL DIAGNOSIS Dalhart lymph nodes, left axillary, biopsy (FS 1-4): [...] -Attached skin with no significant histopathologic abnormality. Dalhart lymph nodes, additional left axillary, biopsy: -Four [...] (medial margin), sectioned, B4-B5-level 2, B6-B7-level 3, G0-V84-fdxtj 4, Q52-I61-xznjm 5, B 16-B 18-level 6, M93-O28-nlkdg 7, B 23-B 25-level 8, B40-N83-ddhuk 9, R23-U62-xqwdk 10 (lateral margin), sectioned. Collected at 1024, [...] follows: C1-C3-level 1 (medial margin), C4-C7-level 2, X2-B06-ivzqj 3, C13-C 17-level 4, C 18-C 28-level [...] 1145. MICROSCOPIC DESCRIPTION The slides are labeled [id number] and Rosa Babb. Sections from the left [...] or invasive carcinoma is identified. INTRAOPERATIVE CONSULTATION Dalhart lymph nodes nodes, left axillary (FS1-FS4): - [...] of Lymph Nodes Examined: 11 Number of Dalhart Nodes Examined: 6 PATHOLOGIC STAGE CLASSIFICATION (pTNM, AJCC 8th Edition) TNM Descriptors: y (post-treatment) Primary Tumor (pT): pT1b Regional Lymph Nodes (pN): pN0 COMMENT Special stain and/or immunohistochemical results are interpreted with controls that demonstrate appropriate staining reactions. Note on use of immunocytochemistry reagents: This test was developed and its performance characteristics determined by [facility], Department of Laboratory Medicine. It has not [...] part or completely in the following laboratories: [facility], CLIA #[id number] [address] [place] [address] [facility], [place] #[id number] [address] [place] [address] [facility], CLIA #[id number] [address] [place] [address] Rosa Kauffmanington 55 y.o. with left breast cancer s/p neoadjuvant TCHP chemotherapy. She is s/p left NL bracketed wide local excisional lumpectomy with SNB/ALND on 06/25/2021. No further surgery is recommended at this time. I will see her in 3 months for a clinical breast exam. She will follow-up with medical oncology and radiation oncology to discuss the next step of treatment. Scar care with daily moisturizer. Risk reducing lifestyle modifications including regular exercise four times a week or more for 30-45 minutes, a healthy moderate diet, and avoidance of tobacco products reviewed and encouraged. She was instructed to call our clinic with any breast concerns or questions. All of her questions were answered to her satisfaction. Chayo Zepeda MD Breast Surgical Oncology [phone] * Nickie Martinez RN - 07/17/2021 9:55 AM CDT Patient comes in today for f/u on left lumpectomy and SNB done on 06/25/2021. Doing RT at [place] starting next week with Dr Lange. and saw Dr Smith on 07/09 for consult. Incisions healing well. Tenderness at axilla. ROM great. Seeing OT at [place] for lymphedema and rom instructions Dr Zepeda saw patient and discussed pathology documented in this encounter Plan of Treatment Upcoming Encounters Date Type Department Care Team (Late st Contact Info) Description 02/12/2025 1:00 PM CDT Office Visit [facility] Oncology and Hematology [facility] [address] [place] [address] [address] [place] [phone] Aaron Smith MD [address] [facility] [address] [place] [address] 03/29/2025 12:[address] [facility] [address] [place] [address] [place] [address] [address] 03/29/2025 1:30 PM CDT Office Visit [facility] Breast Surgery [address] [facility] [address] [place] [address] [place] [address] [facility] [address] [place] [address] documented as of this encounter Visit Diagnoses Diagnosis Malignant neoplasm of areola of left breast in female, estrogen receptor positive- Primary documented in this encounter Care Teams Trim Technician Relationship Specialty Start Date End Date Rosa Shi MD [address] [place] [phone] PCP - General Family Practice 01/15/21 documented as of this encounter
--- OUTSIDE RECORDS SUMMARY | 2024-10-23 02:18 | XMS_ITS | Encounter Summary ---
Author Organization [facility] Address [address] Becerra: Epic Prelude ADT [place] [address] Care Team Providers Care Ambulance Driver Name Role Phone Rosa Shi MD Primary Care Provider [phone] Encounter Details Date Type Department Care Team (Latest Contact Info) Description 05/07/2021 Travel Social History Tobacco Use Types Packs/Day [...] [facility] Oncology and Hematology - [place] [address] [place] [address] Aaron Smith MD [address] [facility] [address] [place] [address] 03/29/2025 12:30 PM CDT Appointment [facility] [address] [place] [address] [place] [address] [facility] [address] [place] [address] 03/29/2025 1:30 PM CDT Office Visit [facility] Breast Surgery [address] [address] [facility] [address] [place] [address] [place] [address] [facility] [address] [place] [address] documented as of this encounter Visit Diagnoses Not on filedocumented in this encounter Care Teams Ambulance Driver Relationship Specialty Start Date End Date Rosa Shi MD [address] [place] [address] PCP - General Family Practice 01/15/21 documented as of this encounter
--- OUTSIDE RECORDS SUMMARY | 2024-10-23 02:18 | XMS_ITS | Encounter Summary ---
Author Organization [facility] Address [address] Becerra: Epic Prelude ADT [place] [address] Care Team Providers Care Copy Chaser Name Role Phone Rosa Shi MD Primary Care Provider [phone] Encounter Details Date Type Department Care Team (Latest Contact Info) Description 05/15/2021 Travel Social History Tobacco Use Types Packs/Day [...] [facility] Oncology and Hematology - [place] [address] [facility] [address] [place] [address] Aaron Smith MD [address] [facility] [address] [place] [address] 03/29/2025 12:30 PM CDT Appointment [facility] [address] [place] [address] [place] [address] [facility] [address] [place] [address] 03/29/2025 1:30 PM CDT Office Visit [facility] Breast Surgery [address] [address] [facility] [address] [place] [address] [place] [address] [facility] [address] [place] [address] documented as of this encounter Visit Diagnoses Not on filedocumented in this encounter Care Teams Copy Chaser Relationship Specialty Start Date End Date Rosa Shi MD [address] [place] [address] PCP - General Family Practice 01/15/21 documented as of this encounter
--- OUTSIDE RECORDS SUMMARY | 2024-10-23 02:18 | XMS_ITS | Encounter Summary ---
Author Organization [facility] Address [address] Becerra: Epic Prelude ADT [place] [address] Care Team Providers Care Non Clinical Advisor Name Role Phone Rosa Shi MD Primary Care Provider [phone] Encounter Details Date Type Department Care Team (Latest Contact Info) Description 05/19/2021 Travel Social History Tobacco Use Types Packs/Day [...] or suspected to have Coronavirus / COVID-19? Unable to assess 05/19/2021 11:00 AM CDT documented as of this encounter Plan of Treatment Upcoming Encounters Date Type Department Care Team (Late st Contact Info) Description 02/12/2025 1:00 PM CDT Office Visit [facility] Oncology and Hematology - [place] [address] [facility] [address] [place] [address] Aaron Smith MD [address] [facility] [address] [place] [address] 03/29/2025 12:30 PM CDT Appointment [facility] [address] [place] [address] [place] [address] [facility] [address] [place] [address] 03/29/2025 1:30 PM CDT Office Visit [facility] Breast Surgery [address] [address] [facility] [address] [place] [address] [place] [address] [facility] [address] [place] [address] documented as of this encounter Visit Diagnoses Not on filedocumented in this encounter Care Teams Non Clinical Advisor Relationship Specialty Start Date End Date Rosa Shi MD [facility] [place] [address] PCP - General Family Practice 01/15/21 documented as of this encounter
--- OUTSIDE RECORDS SUMMARY | 2024-10-23 02:18 | XMS_ITS | Encounter Summary ---
Author Organization [facility] [facility] Address [address] [place] [address] Care Team Providers Care Tile Erector Name Role Phone Rosa Shi MD Primary Care Provider [phone] Reason for Referral * Radiology Services (Routine) - Closed Specialty Diagnoses / Procedures Referred By Contac t Referred To Contact Diagnoses Malignant neoplasm of areola of left breast in female, estrogen receptor positive Procedures ECHO COMPLETE Aaron Smith MD [address] [place] [address] [place] [address] Referral ID Status Reason Start Date Expiration Date V isits Requested Visits Authorized [id number] Closed STL CTS 04/15/2021 05/16/2022 1 1 Encounter Details Date Type Department Care Team (Late st Contact Info) Description 04/15/2021 Orders Only [facility] Oncology and Hematology [facility] [address] [place] [address] Aaron Smith MD [address] [place] [address] Malignant neoplasm of areola of [...] [facility] Oncology and Hematology - [place] [address] [place] [address] [address] [place] [phone] [place] [address] [place] [address] [address] [place] [phone] 03/29/2025 12:30 PM CDT Appointment [facility] [address] [address] [place] [address] [place] [address] [facility] [address] [place] [address] 03/29/2025 1:30 PM CDT Office Visit [facility] Breast Surgery [address] [address] [facility] [address] [place] [address] [place] [address] [facility] [address] [place] [address] documented as of this encounter Results * ECHO COMPLETE (04/23/2021) Aaron Smith MD US ORDERABLES documented in this encounter Visit Diagnoses Diagnosis Malignant neoplasm of areola of left breast in female, estrogen receptor positive- Primary documented in this encounter Care Teams Tile Erector Relationship Specialty Start Date End Date Rosa Shi MD [address] [place] [address] PCP - General Family Practice 01/15/21 documented as of this encounter
--- OUTSIDE RECORDS SUMMARY | 2024-10-23 02:18 | XMS_ITS | Encounter Summary ---
Author Organization [facility] Address [address] [place] [address] Care Team Providers Care Dust Box Worker Name Role Phone Rosa Shi MD Primary Care Provider [phone] Reason for Referral * Radiology Services (Routine) - Closed Specialty Diagnoses / Procedures Referred By Contac t Referred To Contact Diagnoses Malignant neoplasm of areola of left breast in female, estrogen receptor positive Procedures MAMMO [place] [address] [address] [address] Referral ID Status Reason Start Date Expiration Date Visits Re quested Visits Authorized [id number] Closed 05/15/2021 06/15/2022 1 1 Reason for Visit * Radiology Services (Routine) - Closed Specialty Diagnoses / Procedures Referred By Contac t Referred To Contact Diagnoses Malignant neoplasm of areola of left breast in female, estrogen receptor positive Procedures MAMMO [place] [address] [address] Referral ID Status Reason Start Date Expiration Date Visits Re quested Visits Authorized [id number] Closed 05/15/2021 06/15/2022 1 1 Encounter Details Date Type Department Care Team (Latest Contact Info) Description 05/20/2021 10:00 AM CDT - 05/20/2021 11:59 PM CDT Hospital Encounter [facility] [address] [place] [phone] [place] [address] [address] [place] [address] Discharge Disposition: Home or Self Care [...] Amount: 6 Tablets 15 Tablet 06/25/2021 10/10/2021 HYDROcodone-acetamin ophen (NORCO) 5-325 mg tabletIndications:Ma lignant neoplasm of areola of left breast in female, estrogen receptor positive Take 1 Tablet by mouth every 4 hours as needed for Pain, Moderate. Max Daily Amount: 6 Tablets 15 Tablet 01/29/2021 06/25/2021 lidocaine-prilocaine (EMLA) 2.5-2.5 % Cream Apply to affected area see administration instructions. Apply to port site 1 hour prior to needle sticks- cover in saran wrap 30 Gram 3 01/16/2021 10/20/2021 documented as of this encounter Plan of Treatment Upcoming Encounters Date Type Department Care Team (Late st Contact Info) Description 02/12/2025 1:00 PM CDT Office Visit [facility] Oncology and Hematology [facility] [address] [facility] [address] [place] [address] Aaron Smith MD [address] [facility] [address] [place] [address] 03/29/2025 12:[address] [facility] [address] [address] [place] [address] [place] [address] [facility] [address] [place] [address] 03/29/2025 1:30 PM CDT Office Visit [facility] Breast Surgery [address] [address] [facility] [address] [place] [address] [place] [address] [facility] [address] [place] [address] documented as of this encounter Procedures Procedure Name Priority Date/Time Associated Diagnosis Comments MAMMO BREAST US LEFT LTD Routine 05/20/2021 11:01 AM CDT Malignant neoplasm of areola of left breast in female, estrogen receptor positive documented in this encounter Results * (ABNORMAL) MAMMO BREAST [...] positive documented in this encounter Care Teams Dust Box Worker Relationship Specialty Start Date End Date Rosa Shi MD [address] [place] [address] PCP - General Family Practice 01/15/21 documented as of this encounter
--- OUTSIDE RECORDS SUMMARY | 2024-10-23 02:18 | XMS_ITS | Encounter Summary ---
Author Organization [facility] Address [address] [place] [address] Care Team Providers Care Plastic Parts Fabricator Trimmer Name Role Phone Rosa Shi MD Primary Care Provider [phone] Reason for Visit * Reason Comments Follow Up 6 week f/u with labs Encounter Details Date Type Department Care Team (Late st Contact Info) Description 07/09/2021 8:45 AM CDT Office Visit [facility] Oncology and Hematology - [place] [address] [place] [address] [address] [place] [address] Aaron Smith MD [address] [facility] [address] [place] [address] Malignant neoplasm of areola of [...] Sign Reading Time Taken Comments Blood Pressure 134/77 07/09/2021 8:52 AM CDT Pulse 83 07/09/2021 8:52 AM CDT Temperature 36.9 ??C (98.4 ??F) 07/09/2021 8:52 AM CD T Respiratory Rate - - Oxygen Saturation 94% 07/09/2021 8:52 AM CDT Inhaled Oxygen Concentration - - Weight 97 kg (213 lb 12.8 oz) 07/09/2021 8:52 AM CDT Height 157.5 cm (5' 2 ) 07/09/2021 8:52 AM CDT Body Mass Index 39.1 07/09/2021 8:52 AM CDT documented in this encounter Progress Notes * Aaron Smith MD - 07/09/2021 10:23 AM CDT HEMATOLOGY / ONCOLOGY PROGRESS NOTE Patient Identification: Name: Rosa Babb Age: 55 y.o. Sex: female : 1965 DIAGNOSIS T2 N1 M0 stage IIB invasive mammary carcinoma status post left breast 9:00 needle biopsy done on January 14, 2021. ER strongly positive, LA weakly positive and HER-2/dez positive. Ultrasound-guided biopsy [...] sentinel lymph node biopsy done on 06/25/2021 SUBJECTIVE Patient came into the office for follow-up visit after lumpectomy. She is healing well from her surgery. Denies any drainage and discharge. No fevers and chills. No other new complaints. Review of [...] lumps, bumps or rashes. 12 point review systems reviewed and as above Objective: Vital signs [...] No lymphadenopathy Neuro: No obvious focal deficit Left breast postoperative changes and some swelling without any mass or lymphadenopathy. Right breast no masses or lymphadenopathy. Examination as above PATH [...] 5.1 hemoglobin 11.7 platelet 280,000 creatinine 0.8 Assessment: Plan: Patient Active Problem [...] DCIS high-grade and 0/6 sentinel lymph node ER/LA positive and HER- 2/dez positive status post left-sided lumpectomy and left axillary lymph node biopsy done on 06/25/2021. Inferior margin less than 1 mm. Additional margins clear. Patient has completed cycle 6/6 of chemotherapy with TCH Perjeta on 05/28/2021. She is recovering well from the surgery. Patient is going to have radiation therapy treatment. She will start maintenance Herceptin after completion of ration therapy treatment along with hormonal therapy with Arimidex. I will see her back in 6 weeks. Chemotherapy-induced anemia. Patient is taking oral iron. I will repeat labs in 6 weeks. TOBACCO COUNSELING She is not a tobacco user. . 07/09/2021 Aaron Smith MD documented in this encounter Plan of Treatment Upcoming Encounters Date Type Department Care Team (Late st Contact Info) Description 02/12/2025 1:00 PM CDT Office Visit [facility] Oncology and Hematology - [place] [address] [place] [address] Aaron Smith MD [address] [facility] [address] [place] [address] 03/29/2025 12:30 PM CDT Appointment [facility] [address] [place] [address] [place] [address] [facility] [address] [place] [address] 03/29/2025 1:30 PM CDT Office Visit [facility] Breast [facility] [address] [address] [facility] [address] [place] [address] [place] [address] [facility] [address] [place] [address] Scheduled Orders Name Type Priority Associated Diagnoses Orde r Schedule COMPREHENSIVE METABOLIC PANEL Lab Stat Malignant neoplasm of areola of left breast in female, estrogen receptor positive Expected: 08/16/2021 (Approximate), Expires: 07/09/2022 CBC WITH DIFFERENTIAL Lab Stat Malignant neoplasm of areola of left breast in female, estrogen receptor positive Expected: 08/16/2021 (Approximate), Expires: 07/09/2022 documented as of this encounter Visit Diagnoses Diagnosis Malignant neoplasm of areola of left breast in female, estrogen receptor positive- Primary documented in this encounter Care Teams Plastic Parts Fabricator Trimmer Relationship Specialty Start Date End Date Rosa Shi MD [address] [place] [address] PCP - General Family Practice 01/15/21 documented as of this encounter
--- OUTSIDE RECORDS SUMMARY | 2024-10-23 02:19 | XMS_ITS | Encounter Summary ---
Author Organization [facility] Address [address] [place] [address] Care Team Providers Care Graphic Editor Name Role Phone Rosa Shi MD Primary Care Provider [phone] Reason for Visit * Reason Onset Date Comments Question 02/17/2021 Encounter Details Date Type Department Care Team (Late st Contact Info) Description 02/17/2021 Telephone [facility] BREAST SURGERY - OLIVIA GIPSON [address] [facility] [address] [place] [address] [place] [address] [facility] [address] [place] [address] Question Social History Tobacco Use Types Packs/Day Years [...] have Coronavirus / COVID-19? No / Unsure 02/12/2021 8:40 AM CDT documented as of this encounter Miscellaneous Notes * Telephone Encounter - Chayo Zepeda MD - 02/17/2021 8:48 AM CDT Rosa Babb 02/17/2021 8:48 AM T2 N1 M0 stage IIB invasive mammary carcinoma -ER strongly positive, OH weakly positive and HER-2/dez positive. Right port placed 01/29/2021 1st cycle of TCHP on 02/12/2021 I called the patient to discuss her questions regarding a surgery plan after she completes neoadjuvant chemotherapy for her left breast HER2 positive locally advanced cancer. We discussed the benefitof upfront chemotherapy is that it has the potential to downsize the area of breast tissue involved. Treating with chemotherapy upfront has the potential to be able to offer for a wide local excisional lumpectomy with bracketed localization versus total mastectomy. We also discussed the possibilityof wide lumpectomy with breast reduction. Because she has a large amount of breast tissue to work, it may enable her to still be a candidate for breast conservation surgery, even in the setting of widespread segmental disease. I explained it will likely lead to asymmetry, but under clothes may not be noticeable. We will re-image her left breast one month prior to her final cycle of chemotherapy to help preparefor surgery. Chayo Zepeda MD documented in this encounter Plan of Treatment Upcoming Encounters Date Type Department Care Team (Late st Contact Info) Description 02/12/2025 1:00 PM CDT Office Visit [facility] Oncology and Hematology [facility] [address] [place] [phone] Aaron Smith MD [address] [place] [phone] 03/29/2025 12:30 PM CDT Appointment [facility] [address] [address] [phone] [place] [address] [address] [place] [address] 03/29/2025 1:30 PM CDT Office Visit [facility] Breast Surgery [address] [facility] [address] [place] [address] [place] [address] [facility] [address] [place] [address] documented as of this encounter Visit Diagnoses Not on filedocumented in this encounter Care Teams Graphic Editor Relationship Specialty Start Date End Date Rosa Shi MD [address] [place] [phone] PCP - General Family Practice 01/15/21 documented as of this encounter
--- OUTSIDE RECORDS SUMMARY | 2024-10-23 02:19 | XMS_ITS | Encounter Summary ---
Author Organization [facility] Address [address] [place] [address] Care Team Providers Care Soil Sampler Name Role Phone Rosa Shi MD Primary Care Provider [phone] Reason for Visit * Reason Comments Nurse Navigation Encounter Details Date Type Department Care Team (Late st Contact Info) Description 02/05/2021 Chart Note [facility] Oncology Patient Navigation [address] [place] [address] Sonia Herrera, RN Nurse Navigation Social History [...] have Coronavirus / COVID-19? No / Unsure 01/29/2021 6:52 AM CDT documented as of this encounter Progress Notes * Sonia Herrera RN - 02/05/2021 9:49 AM CDT Navigation Assessment Note This RN reached out to [place] [facility] to understand flow of day of infusion for patient. Pt plans to start chemo 02/12/21. Discussed and emailed resources to patient including nutrition, side effect management, hair loss resources, and flow of day. Discussed financial resources and encouraged patient to fill out FMLA paperwork if this has not yetbeen done. Pt has contact info for this RN and will reach out with any needs. This RN to follow up. Alyce Herrera, RN, Nurse Navigator documented in this encounter Plan of Treatment Upcoming Encounters Date Type Department Care Team (Late st Contact Info) Description 02/12/2025 1:00 PM CDT Office Visit [facility] Oncology and Hematology - [place] [address] [facility] [address] [place] [phone] Aaron Smith MD [address] [facility] [address] [place] [address] 03/29/2025 12:30 PM CDT Appointment [facility] [address] [place] [address] [place] [address] [address] 03/29/2025 1:30 PM CDT Office Visit [facility] Breast Surgery [facility] [address] [facility] [address] [place] [address] [place] [address] [facility] [address] [place] [phone] documented as of this encounter Visit Diagnoses Not on filedocumented in this encounter Care Teams Soil Sampler Relationship Specialty Start Date End Date Rosa Shi MD [address] [place] [phone] PCP - General Family Practice 01/15/21 documented as of this encounter
--- OUTSIDE RECORDS SUMMARY | 2024-10-23 02:19 | XMS_ITS | Encounter Summary ---
Author Organization [facility] Address [address] [place] [address] Care Team Providers Care Lot Technician Name Role Phone Rosa Shi MD Primary Care Provider [phone] Encounter Details Date Type Department Care Team (Latest Contact Info) Description 01/17/2021 2:05 PM CDT - 01/17/2021 11:59 PM CDT Hospital Encounter [facility] Laboratory Services [address] [facility] [address] [place] [address] [place] [address] [address] Discharge Disposition: Home or Self Care [...] have Coronavirus / COVID-19? No / Unsure 01/15/2021 2:01 PM CDT documented as of this encounter Medications at Time of Discharge Medication Sig Dispensed Refills Start Date End Date blood-glucose meter (BLOOD GLUCOSE MONITOR KIT MIS) Diagnosis: Diabetes type 2 Blood testing frequency: 3 times a day 12/01/2020 ALBUTEROL INHALATION Take 1 Puff by inhalation Continuous as needed. LANCETS [facility] Use as directed 12/01/2020 [...] Description 02/12/2025 1:00 PM CDT Office Visit [facility] Oncology and Hematology - [place] [address] [facility] [address] [place] [address] Aaron Smith MD [address] [facility] [address] [place] [address] 03/29/2025 12:[address] [facility] [address] [address] [place] [address] [facility] [address] [address] 03/29/2025 1:30 PM CDT Office Visit [facility] Breast Surgery [place] [address] [facility] [address] [phone] [place] [address] [facility] [address] [address] documented as of this encounter Visit Diagnoses Not on filedocumented in this encounter Care Teams Lot Technician Relationship Specialty Start Date End Date Rosa Shi MD [address] [place] [address] PCP - General Family Practice 01/15/21 documented as of this encounter
--- OUTSIDE RECORDS SUMMARY | 2024-10-23 02:19 | XMS_ITS | Encounter Summary ---
Author Organization [facility] Address [address] [place] [address] Care Team Providers Care Stripping Machine Operator Name Role Phone Kevin Shi MD Primary Care Provider [phone] Reason for Visit * Auth/Cert Specialty Diagnoses / Procedures Referred By Contastrid t Referred To Contact Diagnoses Malignant neoplasm of left female breast, unspecified estrogen receptor status, unspecified site of breast Malignant neoplasm of left female breast, unspecified estrogen receptor status, unspecified site of breast [C50.912] Procedures SC INSJ TUNNELED CTR VAD W/SUBQ PORT AGE 3 YR/> CHG FLUOROGUIDE CNTRL RYNE ACCESS,PLACE,REPLACE,REMOVE CHG US GUIDE, VASCULAR ACCESS RIGHT [place] [address] [address] Referral ID Status Reason Start Date Expiration Date Visits Re quested Visits Authorized [id number] 01/16/2021 1 1 Encounter Details Date Type Department Care Team (Late st Contact Info) Description 01/29/2021 8:04 AM CDT - 01/29/2021 9:12 AM CDT Surgery [facility] [place] [address] [place] [address] [place] [address] [facility] [address] [phone] RIGHT PORT A CATHETER PLACEMENT POSSIBLE LEFT PORT A CATHETER PLACEMENT Surgery Details Date/Time Status Location OR Service Patient Class Case Class Case Type Trauma Case? 01/29/2021 8:04 AM Posted STLO CC OR CC OR 04 General Surgery Surgical OP/Extended Care Elective No Panel 1 Procedure LRB Anes Op Region Wound Class Comments RIGHT PORT A CATHETER PLACEMENT POSSIBLE LEFT PORT A CATHETER PLACEMENT Right Monitored Anesthetic Care Chest Clean-I Surgeon Surgeon Role Service Panel Christiano [...] Sign Reading Time Taken Comments Blood Pressure 214/111 01/29/2021 9:10 AM CDT Pulse 76 01/29/2021 9:10 AM CDT Temperature 36.1 ??C (97 ??F) 01/29/2021 8:52 AM CDT Respiratory Rate 19 01/29/2021 9:10 AM CDT Oxygen Saturation 92% 01/29/2021 9:10 AM CDT Inhaled Oxygen Concentration - - Weight 100.7 kg (222 lb) 01/29/2021 7:25 AM CDT Height 157.5 cm (5' 2 ) 01/29/2021 7:25 AM CDT Body Mass Index 40.6 01/29/2021 7:25 AM CDT documented in this encounter Discharge Instructions * Discharge Instructions* Christiano Shankar MD - 01/29/2021 7:44 AM CDT DISCHARGE INSTRUCTIONS AFTER PORT PLACEMENT 1. Using ice intermittently at the port site may help with the discomfort 2. Diet as tolerated 3. Your dressing is a skin glue. It looks like a nail [place]. It will flake off over a week or so. 4. You may shower starting tomorrow. 5. Follow-up with your medical oncologist as planned. 6. Call with any questions or concerns [phone]. ADDITIONAL PRECAUTIONS - If you become short of breath please proceed to the Emergency Room. - new redness around the port or warmth can be a sign of infection. Please call if you have concerns - if you note arm swelling and pain in the upper arm ON THE SIDE of the port, please call. documented in this encounter Medications at Time of Discharge Medication Sig Dispensed Refills Start Date End Date blood-glucose meter (BLOOD GLUCOSE MONITOR KIT MIS) Diagnosis: Diabetes type 2 Blood testing frequency: 3 times a day 12/01/2020 ALBUTEROL INHALATION Take 1 Puff by inhalation Continuous as needed. LANCETS [facility] Use as directed 12/01/2020 blood [...] H&P Notes * Christiano Shankar MD - 01/29/2021 7:42 AM CDT PATIENT: Kevin Babb : 1965 DATE: 01/29/2021 CHIEF COMPLAINT: port placement HISTORY OF PRESENT ILLNESS: Kevin Babb is a 55 y.o. female who was recently diagnosed with a left breast cancer. She is referred by Dr. Smith for port placement for chemotherapy. PMH: Past Medical History: Diagnosis Date ??? Asthma ??? Depression ??? Diabetes mellitus ??? Endometriosis ??? Fibroids ??? High cholesterol ??? HTN (hypertension) PSH: Past Surgical History: Procedure Laterality Date ??? HX SECTION ??? HX HYSTERECTOMY ??? 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 TONSILLECTOMY ALLERGY: No Known Allergies MEDS: Current Facility-Administered Medications Medication Dose Route Frequency Provider Last Rate Last Admin ??? lactated ringers infusion IV pre-proc continuous Christiano Shankar MD 150 mL/hr at 01/29/21733 New Bag at 01/29/21733 ??? lidocaine PF 2% (XYLOCAINE MPF) injection 0.3 mL 0.3 mL Infiltration pre- proc one time Christiano Shankar MD ??? lactated ringers infusion IV post-proc continuous Tay Melgar, DO ??? fentaNYL PF (SUBLIMAZE) 50 mcg/mL injection 10 mcg 10 mcg IV post-proc every 3 minutes PRN Tay Melgar, DO ??? HYDROmorphone (DILAUDID) 2 mg/mL injection 0.2 mg 0.2 mg IV post-proc every 5 minutes PRN Tay Melgar, DO ??? naloxone (NARCAN) 0.4 mg/mL injection 0.1 mg 0.1 mg IV see admin instructions Lakhwinder Melgar, DO ??? ondansetron (ZOFRAN) 4 mg/2 mL injection 4 mg 4 mg IV post-proc one time PRN Tay Melgar, DO ??? prochlorperazine (COMPAZINE) injection 5 mg 5 mg IV post-proc one time PRN Tay Melgar,DO ??? [COMPLETED] acetaminophen (TYLENOL) tablet 650 mg 650 mg Oral ONE time only Tay Melgar, DO 650 mg at 01/29/21 07 ??? ceFAZolin in sterile water (ANCEF) 2 [...] level: Not on file Occupational History Employer: [employer] Tobacco Use ??? Smoking status: Never [...] Gatherings with Friends and Family: ??? Attends Mor[employer] Services: ??? Active Member of Clubs or Organizations: ??? Attends Club or Organization Meetings: ??? Marital Status: Intimate Partner Violence: ??? Fear of Current or Ex-Partner: ??? Emotionally Abused: ??? Physically Abused: ??? Sexually Abused: ROS: Constitutional: Negative for fever, weight loss [...] above. Immunizations: non-contributory PHYSICAL EXAM: BP (!) 142/99 (BP Location: Right arm, Patient Position (BP): Sitting) Pulse 79 Temp 97.3 ??F (36.3 ??C) (Temporal) Resp 25 Ht 5' 2 (1.575 m) Wt 100.7 kg (222 lb) SpO2 98% BMI 40.60 kg/m?? General: well-developed, well-nourished HEENT: normocephalic/atraumatic. Extra-occular movements are intact. Sclera anicteric. Neck is supple without masses. No thyroid nodules. No lymphadenopathy. Cardiovascular: S1, S2 without murmur. No palpable thrill. 2+ radial pulses. Lungs - clear to auscultation bilaterally. No wheezes. Abdomen: Soft, non-tender. No masses. Extremities: no edema Neurologic: sensory and motor grossly intact. Alert and oriented x 3. ASSESSMENT AND PLAN: Breast cancer with need for IV access for chemotherapy. I reviewed the port placment with her. We discussed risks including but not limited to infection, bleeding, pneumothorax and deep venous thrombosis. I answered her questions. We will proceed with port placement. Christiano Shankar MD 01/29/2021 7:42 AM documented in this encounter OR Notes * Blank-OP - Maria E Faulkner RN - 01/29/2021 9:15 AM CDT Chest X-ray results read by Dr. Diaz, showed tip of port a cath in junction of SVC and Right Atrium. No pneumo. * Operative Report - Christiano Shankar MD - 01/29/2021 8:50 AM CDT [facility] OPERATIVE REPORT - [id number] ----- Date of Procedure: 01/29/2021 Name: Kevin Babb : 1965 Sex: Female Proceduralist/Surgeon: CHRISTIANO SHANKAR MD ----- PRE-OPERATIVE DIAGNOSES: Venous access for IV chemotherapy Neoplasm of breast POST-OPERATIVE DIAGNOSES: Venous access for IV chemotherapy Neoplasm of breast PROCEDURES PERFORMED: Use and interpretation of Sonosite ultrasound images Right power port insertion Central Line Insertion Use and interpretation of fluoroscopy and Sonosite ultrasound images Right Side Catheter Type(s): Power Port Tunnelled with Subcutaneous Port Localization Technique(s): Fluoroscopy, Ultrasound Site(s): Internal Jugular Vein Catheter Tip Location: Superior Vena Cava Hand Hygiene Performed Time-Out Performed Guidewire Utilized: Guidewire Utilized Placement Condition(s): Routine Unit: Operating room Prep: CHG Skin Agent Dry at Time of Procedure Anesthesia: Monitored Anesthetic Care , Local Needle Passes: 1 Blood Flow Satisfactory to All Ports ASSISTANTS: Apprise Counselor - GODWIN ORR ESTIMATED BLOOD LOSS: Minimal FINDINGS: See Post-Operative Diagnoses SPECIMEN REMOVED: None COMPLICATIONS: No complications were noted ANESTHESIA: Monitored Anesthetic Care Monitored Anesthetic Care IMPLANTS: PORT POWERPORT CLEARVUE 8FR MRI [id number] (QTY - 1) SURGICAL WOUND CLASSIFICATION: Clean-I ASA CLASS: P3 ANESTHESIOLOGIST: Anesthesiologist - Tay Melgar DO CUSTOMER RELATIONS CONSULTANT: Ivon Watts CRNA ANESTHESIA STAFF: Anesthesiologist - TaliaTay casillas DO CRNA - Ivon Osorio CRNA STAFF: Silo Erector - KEVIN MAGALLON Scrub - MATEUS HANNA Apprise Counselor - GODWIN ORR Radiology - CARITO FUENTES INDICATIONS: Kevin Babb is a very pleasant 55 year old year old female recently diagnosed with a left breast cancer. After discussion with a medical oncologist she has elected to proceed with adjuvant chemotherapy. She presents for port placement today. TECHNIQUE: The procedure was reviewed with the patient pre-operatively. Specific risks including infection, bleeding, deep venous thrombosis, and pneumothorax were reviewed. After informed consent she was taken to the operating room. After IV sedation she was positioned on the table. Bilateral chest and neck were prepped and draped. The Sonosite was used to interrogate the right neck. The vessels were identified. The internal jugular vein was noted to be widely patent and easily compressible. Local anesthetic was administered at the apex of the triangle where the sternal and clavicular heads of the sternocleidomastoid muscle meet. The internal jugular vein was then cannulated under US guidance. Dark non-pulsatile blood was noted. A wire was fed through the needle and position was checked via fluoroscopy. The wire was noted to be going towards the right heart. Next more local anesthetic was infiltrated on the anterior right chest below the clavicle. An incision was made and a pocket was made for the port. Local anesthetic was injection in the subcutaneous tissue up to the wire entry site. An 11 blade was used to incise the platysma at the wire entry site. The muscle was then gently spread using a hemostat. The tunneler in the kit was used to bring the catheter from the port pocket to the neck. Next an introducer was advanced over the wire under real-time fluoroscopy. The catheter was then fed through the introducer and position was checked via fluoroscopy. The introducer was removed. The tip of the catheter was adjusted until it was noted to be at the superior vena cava/right atrial junction. The catheter was then pulled through to the chest site, trimmed and assembled to the port. The port was then placed in the pocket and once again the position was checked via fluoroscopy. The port was accessed with a Garcia needle. It aspirated and flushed easily. The port was then anchored in two locations with a 3-0 prolene suture. The pocket was then irrigated. The incision was closed with an interrupted 3-0 Vicryl and a running 4-0 Biosyn subcuticular stitch. Skin glue was applied. Needle and sponge counts were correct x2. DISPOSITION: Overall she tolerated the procedure well and was sent to the recovery room in stable condition. A portable chest x-ray was pending. [id number] by CHRISTIANO SHANKAR MD, 01/29/2021 08:50 CDT (Approved) Created in [facility] documented in this encounter Plan of Treatment Upcoming Encounters Date Type Department Care Team (Late st Contact Info) Description 02/12/2025 1:00 PM CDT Office Visit [facility] Oncology and H[facility]ology - [place] [address] [facility] [address] [place] [id number] Aaron Smith MD [address] [facility] [address] [place] [address] 03/29/2025 12:30 PM CDT Appointment [facility] [address] [place] [address] [place] [address] [address] [facility] [address] [place] [address] 03/29/2025 1:30 PM CDT Office Visit [facility] Breast Surgery [address] [facility] [address] [place] [address] [place] [address] [address] [facility] [address] [place] [address] documented as of this encounter Procedures Procedure Name Priority Date/Time Associated Diagnosis Comments XR CHEST PA OR AP 1 VW Routine 01/29/2021 9:07 AM CDT SC INSJ TUNNELED CVC W/O SUBQ PORT/UPTWISTER TENDER AGE 3 YR/> 01/29/2021 8:04 AM CDT Malignant neoplasm of left female breast, unspecified estrogen receptor status, unspecified site of breast POC GLUCOSE Routine 01/29/2021 7:32 AM CDT documented in this encounter Results * XR CHEST PA OR AP 1 VW (01/29/2021 9:07 AM CDT) Anatomical Region Laterality Modality Chest Computed Radiogr aphy 01/29/2021 9:0 7 AM CDT Impressions 01/29/2021 11:19 AM CDT IMPRESSION: New right jugular central venous catheter with tip at the cavoatrial junction. No pneumothorax demonstrated. DICTATION LOCATION: [address] Narrative 01/29/2021 11:19 AM CDT PORTABLE CHEST, AP ERECT, 01/29/2021 AT 0907 HOURS. CLINICAL HISTORY: Postoperative. FINDINGS: There is a right central venous catheter with its tip at the junction of the superior vena cava and right atrium. No pneumothorax is seen. Lung volumes are low. Some fibrotic change at the left lung base. Heart size is normal. There is degenerative change of the dorsal spine. Procedure Note Mark Diaz MD - 01/29/2021 PORTABLE CHEST, AP ERECT, 01/29/2021 AT 0907 HOURS. CLINICAL HISTORY: Postoperative. FINDINGS: There is a right central venous catheter with its tip at the junction of the superior vena cava and right atrium. No pneumothorax is seen. Lung volumes are low. Some fibrotic change at the left lung base. Heart size is normal. There is degenerative change of the dorsal spine. IMPRESSION: New right jugular central venous catheter with tip at the cavoatrial junction. No pneumothorax demonstrated. DICTATION LOCATION: Location - [facility] Christiano Shankar MD DIAGNOSTIC IMAGI NG ORDERABLES * (ABNORMAL) POC GLUCOSE (01/29/2021 7:32 AM CDT) GLUCOSE POC 103(H) 74 - 99 mg/dL 01/29/2021 7:32 AM CDT [facility] [place] RETAIL BUSINESS DEVELOPMENT MANAGER NAME CLEMENTINE ODONNELL (PN- SCHNEIDER )NADER 01/29/2021 7:32 AM CDT [facility] [place] Blood, whole 01/29/2021 7:32 AM CDT 01/29/2021 7:46 AM CDT Christiano Shankar MD POINT OF CARE TE [facility] Organization Address City/State/ZIP Co de Phone Number [facility] [place] CLIA # [id number] [place] [address] documented in this encounter Visit Diagnoses Diagnosis Malignant neoplasm of areola of left breast in female, estrogen receptor positive- Primary Malignant neoplasm of left female breast, unspecified estrogen receptor status, unspecified site of breast documented in this encounter Administered Medications Inactive Administered Medications - up to 3 most recent administrations Medication Order MAR Action Action Date Dose Rate Site acetaminophen (TYLENOL) tablet 650 mg 650 mg, Oral, ONE TIME ONLY, 1 dose, On Wed01/29/21 at 0715, Stat, Pre-op Now Given 01/29/2021 7:35 AM CDT 650 mg fentaNYL PF (SUBLIMAZE) 50 mcg/mL injection 10 mcg 10 mcg, IV, POST-PROCEDURE Q 3 MINUTES PRN, 5 doses, Starting on Wed01/29/21 at 0700, Until Wed01/29/21 at 1148, Pain, Routine, PACU heparin, porcine (pf) 10 unit/mL IV syringe INTRA-PROCEDURE PRN, Starting on Wed01/29/21 at 0823, Until Wed01/29/21 at 0851, Routine, Anesthesia Intra-op Given 01/29/2021 8:23 AM CDT 10 Units Operative Site HYDROmorphone (DILAUDID) 2 mg/mL injection 0.2 mg 0.2 mg, IV, POST-PROCEDURE Q 5 MINUTES PRN, 10 doses, Starting on Wed01/29/21 at 0700, Until Wed01/29/21 at 1148, Pain, Routine, PACU lactated ringers infusion IV, at 150 mL/hr, PRE-PROCEDURE CONTINUOUS, Starting on Wed01/29/21 at 0715, Until Wed01/29/21 at 1148, Routine, Pre-op Restarted 01/29/2021 8:41 AM CDT New Bag 01/29/2021 7:34 AM CDT 150 mL/hr lactated ringers infusion IV, at 30 mL/hr, POST-PROCEDURE CONTINUOUS, Starting on Wed01/29/21 at 0715, Until Wed01/29/21 at 1148, Routine, PACU lidocaine 1 % (XYLOCAINE) injection INTRA-PROCEDURE PRN, Starting on Wed01/29/21 at 0823, Until Wed01/29/21 at 0851, Routine, Anesthesia Intra-op Given 01/29/2021 8:23 AM CDT 20 mL lidocaine PF 2% (XYLOCAINE MPF) injection 0.3 mL 0.3 mL, Infiltration, PRE-PROCEDURE ONCE, Starting on Wed01/29/21 at 0710, Until Wed01/29/21 at 1148, Routine, Pre-op naloxone (NARCAN) 0.4 mg/mL injection 0.1 mg 0.1 mg, IV, SEE ADMIN INSTRUCTIONS, Starting on Wed01/29/21 at 0700, Until Wed01/29/21 at 1148, Routine, PACU ondansetron (ZOFRAN) 4 mg/2 mL injection 4 mg 4 mg, IV, POST-PROCEDURE ONCE PRN, 1 dose, Starting on Wed01/29/21 at 0700, Until Wed01/29/21 at 1148, Nausea/Emesis, Routine, PACU prochlorperazine (COMPAZINE) injection 5 mg 5 mg, IV, POST-PROCEDURE ONCE PRN, 1 dose, Starting on Wed01/29/21 at 0700, Until Wed01/29/21 at 1148, Nausea/Emesis, Routine, PACU documented in this encounter Active and Recently Administered Medications Times are shown in CDT. Scheduled Medication Order 01/27/2021 01/28/2021 01/29/2021 acetaminophen (TYLENOL) tablet 650 mg (COMPLETED) 650 mg, Oral, ONE TIME ONLY, 1 dose, On Wed01/29/21 at 0715, Stat, Pre-op Now 0735 (Given - Provid er: Nader Odonnell RN) ceFAZolin in sterile water (ANCEF) 2 gram/20 mL IV Syringe (PREMIX) 2,000 mg (COMPLETED) 2,000 mg, IV, PRE-PROCEDURE ONCE, 1 dose, Starting on Wed01/29/21 at 0710, Until Wed01/29/21 at 0800, Routine, Pre-op, Antibiotic Indication: Surgical prophylaxis 0800 (Given - Provid er: Ivon Osorio CRNA) lidocaine PF 2% (XYLOCAINE MPF) injection 0.3 mL 0.3 mL, Infiltration, PRE-PROCEDURE ONCE, Starting on Wed01/29/21 at 0710, Until Wed01/29/21 at 1148, Routine, Pre-op naloxone (NARCAN) 0.4 mg/mL injection 0.1 mg 0.1 mg, IV, SEE ADMIN INSTRUCTIONS, Starting on Wed01/29/21 at 0700, Until Wed01/29/21 at 1148, Routine, PACU Continuous Medication Order 01/27/2021 01/28/2021 01/29/2021 lactated ringers infusion IV, at 150 mL/hr, PRE-PROCEDURE CONTINUOUS, Starting on Wed01/29/21 at 0715, Until Wed01/29/21 at 1148, Routine, Pre-op 0734 (New Bag - Prov ider: Nader Odonnell RN)0840 (Paused - Provider: Ivon Osorio CRNA - Comment: Switch to gravity)0841 (Restarted - Provider: Ivon Osorio CRNA) lactated ringers infusion IV, at 30 mL/hr, POST-PROCEDURE CONTINUOUS, Starting on Wed01/29/21 at 0715, Until Wed01/29/21 at 1148, Routine, PACU 0715 (Due)0924 (Stop ped - Provider: Maria E Faulkner RN) PRN Medication Order 01/27/2021 01/28/2021 01/29/2021 fentaNYL PF (SUBLIMAZE) 50 mcg/mL injection 10 mcg 10 mcg, IV, POST-PROCEDURE Q 3 MINUTES PRN, 5 doses, Starting on Wed01/29/21 at 0700, Until Wed01/29/21 at 1148, Pain, Routine, PACU heparin, porcine (pf) 10 unit/mL IV syringe (CANCELED) INTRA-PROCEDURE PRN, Starting on Wed01/29/21 at 0823, Until Wed01/29/21 at 0851, Routine, Anesthesia Intra-op 0823 (Given - Provid er: Christiano Shankar MD) HYDROmorphone (DILAUDID) 2 mg/mL injection 0.2 mg 0.2 mg, IV, POST-PROCEDURE Q 5 MINUTES PRN, 10 doses, Starting on Wed01/29/21 at 0700, Until Wed01/29/21 at 1148, Pain, Routine, PACU lidocaine 1 % (XYLOCAINE) injection (CANCELED) INTRA-PROCEDURE PRN, Starting on Wed01/29/21 at 0823, Until Wed01/29/21 at 0851, Routine, Anesthesia Intra-op 0823 (Given - Provid er: Christiano Shankar MD) ondansetron (ZOFRAN) 4 mg/2 mL injection 4 mg 4 mg, IV, POST-PROCEDURE ONCE PRN, 1 dose, Starting on Wed01/29/21 at 0700, Until Wed01/29/21 at 1148, Nausea/Emesis, Routine, PACU prochlorperazine (COMPAZINE) injection 5 mg 5 mg, IV, POST-PROCEDURE ONCE PRN, 1 dose, Starting on Wed01/29/21 at 0700, Until Wed01/29/21 at 1148, Nausea/Emesis, Routine, PACU documented in this encounter Care Teams Stripping Machine Operator Relationship Specialty Start Date End Date Kevin Shi MD [address] [place] [id number] PCP - General Family Practice 01/15/21 documented as of this encounter
--- OUTSIDE RECORDS SUMMARY | 2024-10-23 02:19 | XMS_ITS | Encounter Summary ---
Author Organization [facility] Address [address] [place] [address] Care Team Providers Care Mechanical Engineering Specialist Name Role Phone Rosa Shi MD Primary Care Provider [phone] Reason for Visit * Auth/Cert Specialty Diagnoses / Procedures Referred By Contac t Referred To Contact Diagnoses Malignant neoplasm of left female breast, unspecified estrogen receptor status, unspecified site of breast Malignant neoplasm of left female breast, unspecified estrogen receptor status, unspecified site of breast [C50.912] Procedures [place] INSJ TUNNELED CTR VAD W/SUBQ PORT AGE 3 YR/> CHG FLUOROGUIDE CNTRL RYNE ACCESS,PLACE,REPLACE,REMOVE CHG US GUIDE, VASCULAR ACCESS RIGHT [place] [address] [address] Referral ID Status Reason Start Date Expiration Date Visits Re quested Visits Authorized [id number] 01/16/2021 1 1 Encounter Details Date Type Department Care Team (Latest Contact Info) Description 01/29/2021 7:07 AM CDT - 01/29/2021 11:59 PM CDT Hospital Encounter [facility] Imaging Services [address] [address] [place] [address] [address] [phone] Discharge Disposition: Home or Self Care Social [...] Puff by inhalation Continuous as needed. [facility] Use as directed 12/01/2020 blood sugar diagnostic [...] [facility] Oncology and Hematology - [place] [address] [address] [place] [address] Aaron Smith MD [address] [facility] [address] [place] [address] 03/29/2025 12:30 PM CDT Appointment [facility] [address] [address] [place] [address] [place] [address] [place] [address] 03/29/2025 1:30 PM CDT Office Visit [facility] Breast Surgery [place] [address] [place] [address] [place] [address] [address] [place] [address] documented as of this encounter Procedures Procedure Name Priority Date/Time Associated Diagnosis Comments XR FLUORO CENTRAL VENOUS ACCESS Routine 01/29/2021 8:46 AM CDT History of left breast cancer documented in this encounter Results * XR FLUORO CENTRAL VENOUS ACCESS (01/29/2021 8:46 AM CDT) Anatomical Region Laterality Modality Computed Radiogr aphy 01/29/2021 8:47 AM CDT Impressions 01/29/2021 10:27 AM CDT IMPRESSION: ??Intraoperative fluoroscopy. Please refer to the dedicated operative report for further details. DICTATION LOCATION: Location 2 - [facility] Narrative 01/29/2021 10:27 AM CDT EXAM: XR FLUORO CENTRAL VENOUS ACCESS DATE: 01/29/2021 8:46 AM HISTORY: ??Intraoperative FINDINGS: ?? A single intraoperative fluoroscopic image of the upper right chest was performed during surgical placement of a right-sided Port-A-Cath. The tip of the catheter projects over the cavoatrial junction. ??A radiologist was not present during the procedure. 0.1 minutes of fluoroscopic time were used. Procedure Note Sergio Pedraza MD - 01/29/2021 EXAM: XR FLUORO CENTRAL VENOUS ACCESS DATE: 01/29/2021 8:46 AM HISTORY: Intraoperative FINDINGS: A single intraoperative fluoroscopic image of the upper right chest was performed during surgical placement of a right-sided Port-A-Cath. The tip of the catheter projects over the cavoatrial junction. A radiologist was not present during the procedure. 0.1 minutes of fluoroscopic time were used. IMPRESSION: Intraoperative fluoroscopy. Please refer to the dedicated operative report for further details. DICTATION LOCATION: [address] Chayo Zepeda MD DIAGNOSTIC IMAGI NG ORDERABLES documented in this encounter Visit Diagnoses Diagnosis History of left breast cancer documented in this encounter Care Teams Mechanical Engineering Specialist Relationship Specialty Start Date End Date Rosa Shi MD [address] [place] [address] PCP - General Family Practice 01/15/21 documented as of this encounter
--- OUTSIDE RECORDS SUMMARY | 2024-10-23 02:19 | XMS_ITS | Encounter Summary ---
Author Organization [facility] Address [address] [place] [address] Care Team Providers Care Parts Sales Counterperson Name Role Phone Kevin Shi MD Primary Care Provider [phone] Reason for Visit * Auth/Cert Specialty Diagnoses / Procedures Referred By Contac t Referred To Contact Diagnoses Malignant neoplasm of left female breast, unspecified estrogen receptor status, unspecified site of breast Malignant neoplasm of left female breast, unspecified estrogen receptor status, unspecified site of breast [C50.912] Procedures [place] INSJ TUNNELED CTR VAD W/SUBQ PORT AGE 3 YR/> CHG FLUOROGUIDE CNTRL RYNE ACCESS,PLACE,REPLACE,REMOVE CHG US GUIDE, VASCULAR ACCESS RIGHT CHE[place] [address] [address] [address] Referral ID Status Reason Start Date Expiration Date Visits Re quested Visits Authorized [id number] 01/16/2021 1 1 Encounter Details Date Type Department Care Team (Latest Contact Info) Description 01/29/2021 6:54 AM CDT - 01/29/2021 9:47 AM CDT Hospital Encounter [facility] [place] [address] [address] [place] [address] [place] [address] [facility] [address] [phone] Malignant neoplasm of left female breast, unspecified [...] Sign Reading Time Taken Comments Blood Pressure 179/64 01/29/2021 9:25 AM CDT Pulse 78 01/29/2021 9:25 AM CDT Temperature 36.1 ??C (97 ??F) 01/29/2021 8:52 AM CDT Respiratory Rate 18 01/29/2021 9:25 AM CDT Oxygen Saturation 93% 01/29/2021 9:25 AM CDT Inhaled Oxygen Concentration - - [...] skin glue. It looks like a nail german. It will flake off over a week or so. 4. You may shower starting tomorrow. 5. Follow-up with your medical oncologist as planned. 6. Call with any questions or concerns [phone]. ADDITIONAL PRECAUTIONS - If you become short [...] continuous Christiano Shankar MD 150 mL/hr at 01/29/21 0734 New Bag at 01/29/21 0734 ??? lidocaine PF 2% (XYLOCAINE MPF) injection [...] Tay Melgar, DO 650 mg at 01/29/21 0735 ??? ceFAZolin in sterile water (ANCEF) 2 [...] level: Not on file Occupational History Employer: [employer] Tobacco Use ??? Smoking status: Never [...] Gatherings with Friends and Family: ??? Attends Orthodox Services: ??? Active Member of Clubs or [...] Shankar MD - 01/29/2021 8:50 AM CDT [facility] OPERATIVE REPORT - [id number] ----- Date of Procedure: 01/29/2021 Name: Kevin [...] Blood Flow Satisfactory to All Ports ASSISTANTS: Home Health Clinician - [facility] ESTIMATED BLOOD LOSS: Minimal FINDINGS: See Post-Operative Diagnoses SPECIMEN REMOVED: None COMPLICATIONS: No complications were noted ANESTHESIA: Monitored Anesthetic Care Monitored Anesthetic Care IMPLANTS: PORT POWERPORT CLEARVUE 8FR MRI [id number] (QTY - 1) SURGICAL WOUND CLASSIFICATION: Clean-I ASA CLASS: P3 ANESTHESIOLOGIST: Anesthesiologist - Tay Melgar DO GROUP FITNESS MANAGER: Ivon Watts CRNA ANESTHESIA STAFF: Anesthesiologist - Tay Melgar DO GROUP FITNESS MANAGER - Ivon Osorio CRNA STAFF: Jorge A - KEVIN MAGALLON Scrjuan - MATEUS HANNA Home Health Clinician - [facility] Radiology - CARITO FUENTES [...] condition. A portable chest x-ray was pending. [id number] by CHRISTIANO SHANKAR MD, 01/29/2021 08:50 CDT (Approved) Created in [facility] documented in this encounter Plan of Treatment Upcoming Encounters Date Type Department Care Team (Late st Contact Info) Description 02/12/2025 1:00 PM CDT Office Visit [facility] Oncology and Hematology - [place] [address] [facility] [address] [place] [id number] Aaron Smtih MD [address] [facility] [address] [place] [address] 03/29/2025 12:30 PM CDT Appointment [facility] [address] [place] [address] [place] [address] [facility] [address] [place] [address] 03/29/2025 1:30 PM CDT Office Visit [facility] Breast Surgery [place] [address] [facility] [address] [place] [address] [place] [address] [facility] [address] [place] [address] documented as of this encounter Procedures Procedure Name Priority Date/Time Associated Diagnosis Comments XR CHEST PA OR AP 1 VW Routine 01/29/2021 9:07 AM CDT [place] INSJ TUNNELED CVC W/O SUBQ PORT/TESTER SEMICONDUCTOR PACKAGES AGE 3 YR/> 01/29/2021 8:04 AM CDT Malignant neoplasm of left female breast, unspecified estrogen receptor status, unspecified site of breast POC GLUCOSE Routine 01/29/2021 7:32 AM CDT documented in this encounter Results * XR CHEST PA OR AP 1 VW (01/29/2021 9:07 AM CDT) Anatomical Region Laterality Modality Chest Computed Radiogr aphy 01/29/2021 9:07 AM CDT Impressions 01/29/2021 11:19 AM CDT IMPRESSION: New right jugular central venous catheter with tip at the cavoatrial junction. No pneumothorax demonstrated. DICTATION LOCATION: Location [address] [place] [address] Narrative 01/29/2021 11:19 AM CDT PORTABLE CHEST, [...] junction. No pneumothorax demonstrated. DICTATION LOCATION: Location [address] [place] [address] Christiano Shankar MD DIAGNOSTIC IMAGI NG ORDERABLES * (ABNORMAL) POC GLUCOSE (01/29/2021 7:32 AM CDT) GLUCOSE POC 103(H) 74 - 99 mg/dL 01/29/2021 7:[address] [facility] RADIOLOGY MULTI SITE/OPS [place] FLIGHT PHYSICIAN NAME POC MARGAUXVianey (SINA SCHNEIDER )PATRICIAA 01/29/2021 7:[address] [facility] RAD[facility]OLOGY MULTI SITE/OPS [place] Blood, whole 01/29/2021 7:32 AM CDT 01/29/2021 7:46 AM CDT Christiano Shankar MD POINT OF CARE TE STING [facility] RADIOLOGY MULTI SITE/OPS [place] CLIA # [id number] [address] [place] [address] documented in this encounter Visit Diagnoses Diagnosis Malignant neoplasm of areola of left breast in female, estrogen receptor positive- Primary documented in this encounter Administered Medications Inactive [...] Until Wed01/29/21 at 1148, Pain, Routine, PACU HYDROmorphone (DILAUDID) 2 mg/mL injection 0.2 mg [...] Until Wed01/29/21 at 1148, Routine, PACU lidocaine PF 2% (XYLOCAINE MPF) [...] PACU documented in this encounter Care Teams Parts Sales Counterperson Relationship Specialty Start Date End Date Kevin Shi MD [address] [place] [phone] PCP - General Family Practice 01/15/21 documented as of this encounter
--- OUTSIDE RECORDS SUMMARY | 2024-10-23 02:19 | XMS_ITS | Encounter Summary ---
Author Organization [facility] Address [address] [place] [address] Care Team Providers Care Hyperion Administrator Name Role Phone Rosa Shi MD Primary Care Provider [phone] Reason for Visit * Reason Comments Nurse Navigation Encounter Details Date Type Department Care Team (Late st Contact Info) Description 02/14/[address] [facility] Oncology Patient Navigation [address] [place] [address] Sonia Herrera, RN Nurse Navigation Social History [...] Progress Notes * Sonia Herrera RN - 02/14/2021 1:38 PM CDT Navigation Assessment Note Attempted to touch base with patient following first infusion. Message left for pt on self-identified voice mail. Pt has contact info for this RN and will reach out with any non-emergent needs. This RN to follow up. Alyce Herrera, RN, Nurse Navigator documented in this encounter Plan of Treatment Upcoming Encounters Date Type Department Care Team ([facility] Contact Info) Description 02/12/2025 1:00 PM CDT Office Visit [facility] Oncology and Hematology - [place] [address] [facility] [address] [place] [phone] Aaron Smith MD [address] [facility] [address] [place] [address] 03/29/2025 12:30 PM CDT Appointment [facility] [address] [place] [address] [place] [address] [facility] [address] [place] [address] 03/29/2025 1:30 PM CDT Office Visit [facility] Breast Surgery [place] [address] [facility] [address] [place] [address] [place] [address] [facility] [address] [place] [address] documented as of this encounter Visit Diagnoses Not on filedocumented in this encounter Care Teams Hyperion Administrator Relationship Specialty Start Date End Date Rosa Shi MD [address] [place] [address] PCP - General Family Practice 01/15/21 documented as of this encounter
--- OUTSIDE RECORDS SUMMARY | 2024-10-23 02:19 | XMS_ITS | Encounter Summary ---
Author Organization [facility] Address [address] [place] [address] Care Team Providers Care Employment Program Representative Name Role Phone Rosa Shi MD Primary Care Provider [phone] Reason for Visit * Reason Onset Date Comments Needs Orders Written 02/11/2021 Encounter Details Date Type Department Care Team (Late Contact Info) Description 02/11/2021 Telephone [facility] Oncology and Hematology - [place] [address] [place] [address] [facility] [address] [place] [address] Aaron Smith MD [address] [facility] [address] [place] [address] Needs Orders Written Social History Tobacco Use Types Packs/Day Years [...] and Hematology - [place] [address] [facility] [address] [place] [address] Aaron Smith MD [address] [facility] [address] [place] [address] 03/29/2025 12:30 PM CDT Appointment [facility] [place] [address] [place] [address] [place] [address] [facility] 120 [place] [address] 03/29/2025 1:30 PM CDT Office Visit [facility] Breast Surgery [address] [place] [address] [address] [facility] [address] [place] [address] [place] [address] [facility] [address] [place] [address] Scheduled Orders Name Type Priority Associated Diagnoses Orde r Schedule MAGNESIUM LEVEL Lab Routine Malignant neoplasm of areola of left breast in female, estrogen receptor positive See Treatment Plan for 999 Occurrences starting 02/11/2021 until 02/11/2022 documented as of this encounter Visit Diagnoses Diagnosis Malignant neoplasm of areola of left breast in female, estrogen receptor positive- Primary documented in this encounter Care Teams Employment Program Representative Relationship Specialty Start Date End Date Rosa Shi MD [address] [place] [address] PCP - General Family Practice 01/15/21 documented as of this encounter
--- OUTSIDE RECORDS SUMMARY | 2024-10-23 02:19 | XMS_ITS | Encounter Summary ---
Author Organization [facility] Address [address] [place] [address] Care Team Providers Care Delivery Clerk Name Role Phone Rosa Shi MD Primary Care Provider [phone] Reason for Visit * Reason Comments Nurse Navigation Encounter Details Date Type Department Care Team (Late st Contact Info) Description 01/28/2021 Chart Note [facility] Oncology Patient Navigation [address] [place] [address] Sonia Herrera, RN Nurse Navigation Social History [...] have Coronavirus / COVID-19? No / Unsure 01/24/2021 8:02 AM CDT documented as of this encounter Progress Notes * Sonia Herrera RN - 01/28/2021 11:23 AM CDT Navigation Assessment Note Spoke to patient on the phone regarding request for itemized report from recent biopsy. Gave pt contact info for [facility]. Otherwise pt reports doing well and is hopeful to start chemo soon. This RN reached out to to inquire about possible chemo start date and will contact patient when I receive further information. Pt has contact info for this RN and will reach out with any non-emergent needs. This RN to follow up. Alyce Herrera, RN, Nurse Navigator documented in this encounter Plan of Treatment Upcoming Encounters Date Type Department Care Team (Late st Contact Info) Description 02/12/2025 1:00 PM CDT Office Visit [facility] Oncology and Hematology - [place] [address] [facility] [address] [place] [phone] Aaron Smith MD [address] [facility] [address] [place] [address] 03/29/2025 12:30 PM CDT [facility] [address] [place] [address] [place] [address] [facility] [address] [place] [address] 03/29/2025 1:30 PM CDT Office Visit [facility] Breast Surgery [address] [address] [address] [facility] [address] [place] [address] [place] [address] [facility] [address] [place] [address] documented as of this encounter Visit Diagnoses Not on filedocumented in this encounter Additional Health Concerns Infection Onset Date Last Indicated Resolved Time COVID-19 Comment:Pt with positive Covid test 11/22/2020 noted in the media tab on 01/15/2021 01/28/2021-outside 10 and up to 20 days from last positive culture-resolved. 11/22/2020 01/28/2021 01/28/2021 9:04 AM C DT documented as of this encounter Care Teams Delivery Clerk Relationship Specialty Start Date End Date Rosa Shi MD [address] [place] [phone] PCP - General Family Practice 01/15/21 documented as of this encounter
--- OUTSIDE RECORDS SUMMARY | 2024-10-23 02:19 | XMS_ITS | Encounter Summary ---
Author Organization [facility] Address [address] [facility] [address] Becerra: Epic Prelude [place]T [place] [address] Care Team Providers Care Dance Entertainer Name Role Phone Rosa Shi MD Primary Care Provider [phone] Encounter Details Date Type Department Care Team (Latest Contact Info) Description 02/12/2021 Travel Social History Tobacco Use Types Packs/Day [...] Hospital Oncology and Hematology - [place] [address] [facility] [address] [place] [address] Aaron Smith MD [address] [facility] [address] [place] [address] 03/29/2025 12:30 PM CDT Appointment [facility] [address] [place] [address] [place] [address] [facility] [address] [place] [address] 03/29/2025 1:30 PM CDT Office Visit [facility] Breast Surgery [address] [address] [address] [facility] [address] [place] [address] [place] [address] [facility] [address] [place] [address] documented as of this encounter Visit Diagnoses Not on filedocumented in this encounter Care Teams Dance Entertainer Relationship Specialty Start Date End Date Rosa Shi MD [address] [place] [phone] PCP - General Family Practice 01/15/21 documented as of this encounter
--- OUTSIDE RECORDS SUMMARY | 2024-10-23 02:19 | XMS_ITS | Encounter Summary ---
Author Organization [facility] Address [address] [place] [address] Care Team Providers Care Travel Guide Name Role Phone Rosa Shi MD Primary Care Provider [phone] Reason for Visit * Radiology Services (Routine) - Closed Specialty Diagnoses / Procedures Referred By Contac t Referred To Contact Cardiology Diagnoses Malignant neoplasm of areola of left breast in female, estrogen receptor positive Procedures ECHOCARDIOGRAM W/ CONTRAST AGENT ECHO COMPLETE Monae Hurtado MD [address] [place] [address] [facility] Non Invasive Cardiology [address] [place] [address] Referral ID Status Reason Start Date Expiration Date V isits Requested Visits Authorized [id number] Closed STL CTS 01/16/2021 02/16/2022 1 1 Encounter Details Date Type Department Care Team (Latest Contact Info) Description 01/23/2021 7:27 AM CDT - 01/23/2021 11:59 PM CDT Hospital Encounter [facility] Non Invasive Cardiology [address] [place] [address] Monae Hurtado MD [facility] [place] [address] Discharge Disposition: Home or Self Care Social [...] have Coronavirus / COVID-19? No / Unsure 01/23/2021 7:20 AM CDT documented as of this encounter Medications at Time of Discharge Medication Sig Dispensed Refills Start Date End Date blood-glucose meter (BLOOD GLUCOSE MONITOR KIT MISC) Diagnosis: Diabetes type 2 Blood testing frequency: 3 times a day 12/01/2020 ALBUTEROL INHALATION Take 1 Puff by inhalation Continuous as needed. LANCETS [facility] Use as directed 12/01/2020 [...] 01/16/2021 10/20/2021 documented as of this encounter Procedure Notes * Aria Sevilla, RT - 01/23/2021 7:30 AM CDT Definity given to enhance echo images. Diluted bolus tolerated well by patient. ? STL DCS Definity Protocol [facility] Approved by: [facility] - Medical Executive Committee Approval Date: 08/08/2020 ORDERS ARE ENTERED ???PER PROTOCOL?? Enter the protocol in the patient???s electronic health record using [employer]: .definityprotocol Diagnostic Test Orders: 1. Verify patient does not meet any of these exclusion criteria ??? Allergy or hypersensitivity to Definity or octafluoropropane ??? Is or nursing 2. If patient states yes to any exclusion criteria, STOP THE PROCEDURE AND CONTACT Credentialed Provider 3. Patient meets at least one of these inclusion criteria ??? Credentialed provider request ??? Patient is technically difficult to image ([place] [employer] of Echocardiography guidelines of 2or more segments within the apical views not discernable) ??? The question of left ventricular function has been raised 4. Educate patient or responsible democrat on Definity indications and side effects. 5. Have emergency equipment available 6. Definity may be ordered by a credentialed provider, RN or pantograph transferrer 7. Enter Definity medication order per protocol and document using [employer] .definityprotocol 8. Change procedure order to include contrast 9. Verify peripheral or central line IV access. If IV access not available a trained pantograph transferrer orRN may place peripheral IV access as appropriate for medication administration and follow Adult Flush Protocol. NOTE: Do NOT access dialysis catheter or arterial line catheter. 10. Activate Definity using the VialMix machine: o Vial of Definity should be vented prior to withdrawing medication o Dilute the Definity in a syringe with 8.7 ml Normal Saline to make 10 ml o Administer Definity in small increments as needed to enhance visualization up to a total of 10 mlof the diluted Definity 11. RN or trained pantograph transferrer may discontinue peripheral IV access when IV no longer required for treatment Medication Orders: ; Perflutren Lipid microspheres (DEFINITY) 1.1 mg/mL injection, 2mL given IV intra-procedure, one time only. documented in this encounter Plan of Treatment Upcoming Encounters Date Type Department Care Team (Late st Contact Info) Description 02/12/2025 1:00 PM CDT Office Visit [facility] Oncology and Hematology - [place] [address] [facility] [address] [place] [address] Aaron Smith MD [address] [facility] [address] [place] [address] 03/29/2025 12:30 PM CDT Appointment [facility] [place] [address] [place] [address] [place] [address] [facility] [address] [place] [address] 03/29/2025 1:30 PM CDT Office Visit [facility] Breast Surgery [place] [address] [facility] [address] [place] [address] [place] [address] [facility] [address] [place] [address] documented as of this encounter Procedures Procedure Name Priority Date/Time Associated Diagnosis Comments ECHOCARDIOGRAM W/ CONTRAST AGENT Routine 01/23/2021 8:42 AM CDT Malignant neoplasm of areola of left breast in female, estrogen receptor positive documented in this encounter Results * ECHOCARDIOGRAM W/ CONTRAST AGENT (01/23/2021 8:42 AM CDT) EJECTION FRACTION INTERFACE SYSTEM 01/23/2021 7:38 AM CDT Narrative INTERFACE SYSTEM - 01/23/2021 9:59 AM CDT -- [address] [place] [address] [email or web address] -- Transthoracic Echocardiography -- Patient: ? Rosa Babb MRN: ? [id number] Study ID: ?[id number] Gender: ?F : ? 1965 Age: ? 55 Race: ?CARMELO Height ? 157.5cm Study Date: ?01/23/2021 Weight: ?102.7kg Access. #: ? [id number] Account #: ? [id number] BP: -- -- *Referring Physician:* Monae Hurtado Ludimila *Ordering Physician:* ??Monae Hurtado Counter Hand: single stayer operator: Nurse: -- Indications: Breast cancer. STUDY CONCLUSIONS: SUMMARY: -- - Left ventricle: The cavity size was normal. Wall thickness was normal. ??Global systolic function was normal. Diastolic function assessment ??consistent with abnormal left ventricular relaxation (grade 1 diastolic ??dysfunction). The ejection fraction (2-plane MOD) is 60%. - Left atrium: The atrium was normal in size. - Right ventricle: The cavity size was normal. Systolic function was normal. -- Cardiac Anatomy: LEFT VENTRICLE: ??The cavity size was normal. Wall thickness was normal. Global systolic function was normal. Wall motion was normal; there were no regional wall motion abnormalities. Wall motion score: 1.00. Diastolic function assessment consistent with abnormal left ventricular relaxation (grade 1 diastolic dysfunction). AORTIC VALVE: ?? Structurally normal valve. Trileaflet. ??Doppler: Transvalvular velocity was within the normal range. There was no stenosis. Trivial regurgitation. ?The valve area by the velocity-time integral method is 1.7cm^2. The valve area index by the velocity-time integral method is 0.83cm^2/m^2. The ratio of LVOT to aortic valve peak velocity is 0.58. The valve area by the peak velocity method is 1.8cm^2. The valve area index by the peak velocity method is 0.9cm^2/m^2. ?The mean systolic gradient is 8mm Hg. The peak systolic gradient is 13mm Hg. AORTA: ??Aortic root: The aortic root was normal in size. MITRAL VALVE: ?? Structurally normal valve. ?Doppler: ??Transvalvular velocity was within the normal range. There is no evidence for stenosis. ??Trivial regurgitation. ?The peak diastolic gradient is 3mm Hg. LEFT ATRIUM: ??The atrium was normal in size. RIGHT VENTRICLE: ??The cavity size was normal. Systolic function was normal. PULMONIC VALVE: ?? Structurally normal valve. ?Doppler: ?? No significant regurgitation. The peak systolic gradient is 5mm Hg. TRICUSPID VALVE: ?? Structurally normal valve. ?Doppler: ?? No significant regurgitation. PULMONARY ARTERY: ?? Systolic pressure could not be estimated. RIGHT ATRIUM: ??The atrium was normal in size. PERICARDIUM: ??There was no pericardial effusion. Systemic veins: Inferior vena cava: The vessel was normal in size. Measurements -- -- Left ventricle ?Value ?Ref IRISH, LAX ? (L) ?3.1 ?? cm ? 3.8 - 5.2 IRISH/bsa, LAX ? (L) ?1.5 ?? cm/m^2 ?? 2.3 - 3.1 IRISH, LAX chord ? (N) ?4.8 ?? cm ? 3.8 - 5.2 ESD, LAX chord ? (N) ?3.1 ?? cm ? 2.2 - 3.5 PW, ED ? (N) ?0.9 ?? cm ? 0.6 - 0.9 SV ?68 ?ml ? --------- SV/bsa ?34 ?ml/m^2 ?? --------- EDV, 2-p ? (N) ?91 ?ml ? 46 - 106 ESV, 2-p ? (N) ?36 ?ml ? 14 - 42 EF, 2-p ?(N) ?60 ?% ?54 - 74 EDV/bsa, 2-p ? (N) ?45 ?ml/m^2 ?? 29 - 61 ESV/bsa, 2-p ? (N) ?18 ?ml/m^2 ?? 8 - 24 E', lat gennaro, TDI ?? (L) ?9.2 ?? cm/sec ?? >=10.0 E/e', lat gennaro, TDI ?9 ?--------- E', med gennaro, TDI ?? (N) ?7.4 ?? cm/sec ?? >=7.0 E/e', med gennaro, TDI ?12 ? --------- E', avg, TDI ?8.3 ?? cm/sec ?? --------- E/e', avg, TDI ? (N) ?10 ? <=14 LVOT ?Value ?Ref Diam, S ? 2.0 ?? cm ? --------- Area ?3.1 ?? cm^2 ? --------- Peak eufemia, S ? 1.04 ??m/sec ?--------- VTI, S ?21.5 ??cm ? --------- Ventricular septum ?Value ?Ref IVS, ED ?(H) ?1.0 ?? cm ? 0.6 - 0.9 Left atrium ? Value ?Ref AP dim, ES ? (N) ?3.3 ?? cm ? 2.7 - 3.8 AP dim index ? (N) ?1.6 ?? cm/m^2 ?? 1.5 - 2.3 Vol, ES, 2-p ?30 ?ml ? --------- Vol/bsa, ES, 2-p ?? (L) ?15 ?ml/m^2 ?? 16 - 34 Aortic valve ?Value ?Ref Peak v, S ? 1.8 ?? m/sec ?--------- Mean grad, S ?8 ? mm Hg ?--------- Peak grad, S ?13 ?mm Hg ?--------- MARITZA, VTI ?1.7 ?? cm^2 ? --------- MARTIZA/bsa, VTI ?0.83 ??cm^2/m^2 --------- AR PHT ?942 ?? ms ? --------- Mitral valve ?Value ?Ref Peak E ?0.86 ??m/sec ?--------- Peak A ?0.99 ??m/sec ?--------- Decel time ?194 ?? ms ? --------- Peak E/A ratio ?0.9 ?--------- Max MR v ?4.66 ??m/sec ?--------- Pulmonic valve ?Value ?Ref Peak v, S ? 1.17 ??m/sec ?--------- Peak grad, S ?5 ? mm Hg ?--------- Aortic root ? Value ?Ref Root diam, S ?3.1 ?? cm ? --------- Ascending aorta ? Value ?Ref AAo AP diam, S ?2.5 ?? cm ? --------- AAo AP diam/bsa, S ?1.2 ?? cm/m^2 ?? --------- -- -- Legend: (L) ??and ??(H) ??elizabeth values outside specified reference range. (N) ??schaefer values inside specified reference range. Procedure data: Procedure information: ??Transthoracic echocardiography. Scanning was performed from the parasternal, apical, and subcostal acoustic windows. Intravenous contrast (Definity) was administered. ?Transthoracic echocardiography. Complete 2D, complete spectral Doppler, and color Doppler. ??Birthdate: Patient birthdate: 1965. ??Age: ??Patient is 55yr old. ??Sex: ?? gender: female. ??Height: ??157.5cm. 62in. ??Weight: ??102.7kg. 226lb. ??Body mass index: ??41.4kg/m^2. ??Body surface area: ?2.02m^2. ??Study date: ??Study date: 01/23/2021. Study time: 07:38 AM. ?Prepared and Electronically Authenticated Harshal Patel MD [id number]:20 Procedure Note Harshal Patel MD - 01/23/2021 -- [place] [address] [email or web address] [email or web address] Seo Internet [email or web address] -- Transthoracic Echocardiography -- Patient: Rosa Babb Study ID: [id number] Gender: F : 1965 Age: 55 Race: CARMELO Height 157.5cm Study Date: 01/23/2021 Weight: 102.7kg Access. #: [id number] BP: -- -- *Referring Physician:* Monae Hurtado Ludimila *Ordering Physician:* Monae Hurtado Counter Hand: single stayer operator: Nurse: -- Indications: Breast cancer. STUDY CONCLUSIONS: SUMMARY: -- - Left ventricle: The cavity size was normal. Wall thickness was normal. Global systolic function was normal. Diastolic function assessment consistent with abnormal left ventricular relaxation (grade 1diastolic dysfunction). The ejection fraction (2-plane MOD) is 60%. - Left atrium: The atrium was normal in size. - Right ventricle: The cavity size was normal. Systolic function wasnormal. -- Cardiac Anatomy: LEFT VENTRICLE: The cavity size was normal. Wall thickness was normal.Global systolic function was normal. Wall motion was normal; there were noregional wall motion abnormalities. Wall motion score: 1.00. Diastolic function assessment consistent with abnormal left ventricular relaxation (grade 1 diastolic dysfunction). AORTIC VALVE: Structurally normal valve. Trileaflet. Doppler: Transvalvular velocity was within the normal range. There was nostenosis. Trivial regurgitation. The valve area by the velocity-time integralmethod is 1.7cm^2. The valve area index by the velocity-time integral method is 0.83cm^2/m^2. The ratio of LVOT to aortic valve peak velocity is 0.58.The valve area by the peak velocity method is 1.8cm^2. The valve area index bythe peak velocity method is 0.9cm^2/m^2. The mean systolic gradient is 8mmHg. The peak systolic gradient is 13mm Hg. AORTA: Aortic root: The aortic root was normal in size. MITRAL VALVE: Structurally normal valve. Doppler: Transvalvularvelocity was within the normal range. There is no evidence for stenosis. Trivial regurgitation. The peak diastolic gradient is 3mm Hg. LEFT ATRIUM: The atrium was normal in size. RIGHT VENTRICLE: The cavity size was normal. Systolic function wasnormal. PULMONIC VALVE: Structurally normal valve. Doppler: Nosignificant regurgitation. The peak systolic gradient is 5mm Hg. TRICUSPID VALVE: Structurally normal valve. Doppler: Nosignificant regurgitation. PULMONARY ARTERY: Systolic pressure could not be estimated. RIGHT ATRIUM: The atrium was normal in size. PERICARDIUM: There was no pericardial effusion. Systemic veins: Inferior vena cava: The vessel was normal in size. Measurements -- -- Left ventricle Value Ref IRISH, LAX (L) 3.1 cm 3.8 - 5.2 IRISH/bsa, LAX (L) 1.5 cm/m^2 2.3 - 3.1 IRISH, LAX chord (N) 4.8 cm 3.8 - 5.2 ESD, LAX chord (N) 3.1 cm 2.2 - 3.5 PW, ED (N) 0.9 cm 0.6 - 0.9 SV 68 ml --------- SV/bsa 34 ml/m^2 --------- EDV, 2-p (N) 91 ml 46 - 106 ESV, 2-p (N) 36 ml 14 - 42 EF, 2-p (N) 60 % 54 - 74 EDV/bsa, 2-p (N) 45 ml/m^2 29 - 61 ESV/bsa, 2-p (N) 18 ml/m^2 8 - 24 E', lat gennaro, TDI (L) 9.2 cm/sec >=10.0 E/e', lat gennaro, TDI 9 --------- E', med gennaro, TDI (N) 7.4 cm/sec >=7.0 E/e', med gennaro, TDI 12 --------- E', avg, TDI 8.3 cm/sec --------- E/e', avg, TDI (N) 10 <=14 LVOT Value Ref Diam, S 2.0 cm --------- Area 3.1 cm^2 --------- Peak eufemia, S 1.04 m/sec --------- VTI, S 21.5 cm --------- Ventricular septum Value Ref IVS, ED (H) 1.0 cm 0.6 - 0.9 Left atrium Value Ref AP dim, ES (N) 3.3 cm 2.7 - 3.8 AP dim index (N) 1.6 cm/m^2 1.5 - 2.3 Vol, ES, 2-p 30 ml --------- Vol/bsa, ES, 2-p (L) 15 ml/m^2 16 - 34 Aortic valve Value Ref Peak v, S 1.8 m/sec --------- Mean grad, S 8 mm Hg --------- Peak grad, S 13 mm Hg --------- MARITZA, VTI 1.7 cm^2 --------- MARITZA/bsa, VTI 0.83 cm^2/m^2 --------- AR PHT 942 ms --------- Mitral valve Value Ref Peak E 0.86 m/sec --------- Peak A 0.99 m/sec --------- Decel time 194 ms --------- Peak E/A ratio 0.9 --------- Max MR v 4.66 m/sec --------- Pulmonic valve Value Ref Peak v, S 1.17 m/sec --------- Peak grad, S 5 mm Hg --------- Aortic root Value Ref Root diam, S 3.1 cm --------- Ascending aorta Value Ref AAo AP diam, S 2.5 cm --------- AAo AP diam/bsa, S 1.2 cm/m^2 --------- -- -- Legend: (L) and (H) elizabeth values outside specified reference range. (N) schaefer values inside specified reference range. Procedure data: Procedure information: Transthoracic echocardiography. Scanning wasperformed from the parasternal, apical, and subcostal acoustic windows.Intravenous contrast (Definity) was administered. Transthoracicechocardiography. Complete 2D, complete spectral Doppler, and color Doppler. Birthdate: Patient birthdate: 1965. Age: Patient is 55yr old. Sex: gender: female. Height: 157.5cm. 62in. Weight: 102.7kg. 226lb. Bodymass index: 41.4kg/m^2. Body surface area: 2.02m^2. Study date: Studydate: 01/23/2021. Study time: 07:38 AM. Prepared and Electronically Authenticated Harshal Patel MD [id number]:20 Monae Hurtado MD ORDERABLES Performing Organization Address City/State/[facility] Co de Phone Number INTERFACE SYSTEM Refer to clinic/hospital department documented in this encounter Visit Diagnoses Diagnosis Malignant neoplasm of areola of left breast in female, estrogen receptor positive documented in this encounter Administered Medications Inactive Administered Medications - up to 3 most recent administrations Medication Order MAR Action Action Date Dose Rate Site perflutren lipid microspheres (DEFINITY) 1.1 mg/mL injection 2 mL 2 mL, IV, INTRA-PROCEDURE ONCE, 1 dose, Starting on Daphnie 01/23/21 at 0840, Until Daphnie 01/23/21 at 0841, Routine Contrast Given 01/23/2021 8:41 AM CDT 2 mL documented in this encounter Care Teams Travel Guide Relationship Specialty Start Date End Date Rosa Shi MD [address] [place] [address] PCP - General Family Practice 01/15/21 documented as of this encounter
--- OUTSIDE RECORDS SUMMARY | 2024-10-23 02:19 | XMS_ITS | Encounter Summary ---
Author Organization [facility] Address [address] [place] [address] Care Team Providers Care Practice Professional Name Role Phone Rosa Shi MD Primary Care Provider [phone] Reason for Referral * Radiology Services (Routine) - Closed Specialty Diagnoses / Procedures Referred By Vi jackson Referred To Contact Diagnoses Malignant neoplasm of areola of left breast in female, estrogen receptor positive Procedures MAMMO [place] [address] [address] [facility] [address] [place] [address] [facility] Test Scheduling [address] [address] Referral ID Status Reason Start Date Expiration Date V isits Requested Visits Authorized [id number] Closed STL CTS 01/17/2021 02/16/2021 1 1 Reason for Visit * Radiology Services (Routine) - Closed Specialty Diagnoses / Procedures Referred By Vi jackson Referred To Contact Diagnoses Malignant neoplasm of areola of left breast in female, estrogen receptor positive Procedures MAMMO [place] [address] [address] [facility] [address] [place] [address] [facility] Test Scheduling [facility] [address] [place] [address] Referral ID Status Reason Start Date Expiration Date V isits Requested Visits Authorized [id number] Closed STL CTS 01/17/2021 02/16/2021 1 1 Encounter Details Date Type Department Care Team (Latest Contact Info) Description 01/23/2021 11:09 AM CDT - 01/23/2021 11:59 PM CDT Hospital Encounter [facility] [address] [place] [address] [place] [address] [address] [place] [address] Discharge Disposition: Home or Self Care [...] Puff by inhalation Continuous as needed. LANCETS MIS Use as directed 12/01/2020 blood sugar diagnostic [...] as of this encounter Miscellaneous Notes * Result Encounter Note - Luzma Lombardo RN - 01/23/2021 12:30 PM CDT Results for left breast mass and left breast lymph node are positive diagnoses. The findings and recommendations for appropriate surgical management will be discussed with the patient by the office of Dr. Chayo Zepeda. Surgical planning in process for the previously biopsied left breast IMC. Luzma Lombardo COATER SLATE,CBCN, Breast Health Nurse Navigator-[facility] documented in this encounter Plan of Treatment Upcoming Encounters Date Type Department Care Team (Late st Contact Info) Description 02/12/2025 1:00 PM CDT Office Visit [facility] Oncology and Hematology - [address] [facility] [address] [place] [phone] Aaron Smith MD [address] [facility] [address] [place] [address] 03/29/2025 12:30 PM CDT Appointment [facility] [address] [place] [address] [place] [address] [address] [facility] [address] [place] [address] 03/29/2025 1:30 PM CDT Office Visit [facility] Breast Surgery [place] [address] [facility] [address] [place] [address] [place] [address] [facility] [address] [place] [address] documented as of this encounter Procedures Procedure Name Priority Date/Time Associated Diagnosis Comments MAMMO BREAST US BIOPSY LEFT Routine 01/23/2021 3:06 PM CDT Malignant neoplasm of areola of left breast in female, estrogen receptor positive PATHOLOGY Pathology 01/23/2021 2:55 PM CDT documented in this encounter Results * MAMMO BREAST US BIOPSY LEFT (01/23/2021 3:06 PM CDT) Anatomical Region Laterality Modality Breast Left Ultrasound Tissue SPECIMEN FROM BREAST / Unknown 01/23/2021 11:09 AM CDT Addenda Addendum by Catherine Solano MD on 01/28/2021 10:35 AM CDT PATHOLOGY ADDENDUM: The pathology of the lymph node shows invasive ductal carcinoma. The pathology of the satellite lesion shows invasive ductal carcinoma. Another satellite lesion could not be seen on the ultrasound. Therefore, MRI-guided core biopsy should be obtained. Impressions 01/23/2021 3:35 PM CDT IMPRESSION: Technically successful ultrasound-guided core biopsy of left breast mass and a lymph node. DICTATION LOCATION: Katheryn Cornelius 01/23/2021 3:35 PM CDT ULTRASOUND-GUIDED LEFT BREAST CORE BIOPSY, ULTRASOUND-GUIDED LYMPH NODE BIOPSY LEFT AND MAMMOGRAPHY POST PROCEDURE LEFT, 01/23/2021 HISTORY: The Second Look ultrasound of the left breast showed a small mass at 9:00 of the left breast which likely corresponds to the more proximal nodule seen on the MRI. A lymph node with thickened cortices at 2:00, 12 cm from nipple. PROCEDURE AND FINDINGS: The risks and benefits of the procedure were discussed with the patient and written informed consent was obtained. After the skin is cleaned and prepped in a sterile fashion, 1% lidocaine was utilized for local anesthesia. A 12-gauge Celero needle was advanced to the lymph node at 2:00 under sonographic guidance. A total of three tissue cores were obtained. A metallic clip was deployed into the lymph node under ultrasound. The needle was removed and hemostasis was achieved. The mass at 9:00 was targeted using sonogram. After skin is cleaned and prepped in a sterile fashion, 1% lidocaine was utilized for local anesthesia. A 12-gauge Celero needle was advanced to the mass under sonographic guidance. A total of two tissue cores were obtained. A metallic clip was deployed into the mass under ultrasound. The needle was removed and hemostasis was achieved. The postprocedural left digital mammogram was obtained which demonstrated adequate placement of tissue markers. The patient tolerated procedure well without immediate complication. The patient was given verbal as well as written postprocedural instructions prior to being released from the department. The tissue cores were submitted for surgical pathology in formalin. Chayo Zepeda MD MAMMO ORDERABLES * PATHOLOGY (01/23/2021 2:55 PM CDT) CASE REPORT Surgical Pathology Report ? Case: [id number] ? Authorizing Provider: ??Catherine Solano MD ? Collected: ? 01/23/2021 02:55 PM ? Ordering Location: ? [facility] ?Received: ?01/24/2021 08:19 AM ? [place] ? Pathologist: ? Rosa Alves MD ? Specimens: ?? A) - Lymph nodes, left, breast ? B) - Breast, left ? 1 7:00 AM [facility] FINAL DIAGNOSIS Lymph node, left breast, ultrasound-guided core biopsy: - Involvement by invasive ductal carcinoma, 8 mm Breast, left, mass, satellite lesion, ultrasound-guided core biopsy: - Invasive ductal carcinoma, with the following features: 1. Size: 4 mm 2. Wimbledon score: 6. 3. Margins: Not applicable. 4. Lymphvascular invasion: Not identified. - No microcalcifications identified - See microscopic description 1 7:00 AM [facility] S DESCRIPTION Two containers are received labeled Rosa Babb . Received in the first container additionally labeled left breast lymph node are 4 cores of pink-ramirez tissue and one core of red-brown blood clot all 0.3 cm in diameter and 0.6, 1.7, 0.8 (blood clot), 1.4, and 1.1 cm in length. The specimen is submitted entirely in cassettes A1 and A2. Received in the second container additionally labeled left breast mass are 2 cores of yellow-ramirez tissue by 0.3 cm in diameter and 2.3 and 2.2 cm in length. The specimen is submitted entirely in cassettes B1 and B2. KA 1 7:00 AM [facility] MICROSCOPIC DESCRIPTION The slides are labeled [id number] and Rosa Babb. Sections from the left breast lymph node core show 3 cores containing tumor and additional cores of fat. On one edge is small amount of lymphoid tissue. The tumor is an invasive ductal carcinoma composed of small nests and trabeculae of moderately pleomorphic neoplastic cells as seen in the previous 9:00 left breast core biopsy ([id number]). Tumor is embedded in dense fibrosis. The tumor measures 8 mm in greatest dimension. Sections from the left breast mass show 2 cores of fatty breast tissue with small foci of an invasive mammary carcinoma composed of small nests and trabeculae of moderately pleomorphic neoplastic cells (2) with no significant tubule formation (3) and low mitotic activity (1). The carcinoma focally infiltrates as single cells and loose clusters of cells with a focally plasmacytoid appearance. In order to evaluate for a lobular component, E-cadherin and P120 are performed on block B2 and are negative, confirming ductal origin. The tumor measures 4 mm. ER, NE and HER-2 were performed on the previous biopsy [id number] and not will not be repeated. This showed positive ER (8/8, proportion score 5 in intensity score 3) and NE (5/8, proportion score 4 and intensity score 1). The HER-2 overexpression was reportedly equivocal (2+) by immunohistochemistry and found to be amplified by FISH. Please see previous report [id number]. 1 7:00 AM [facility] OPERATIVE PROCEDURE US guided core biopsy 1 7:00 AM [facility] CLINICAL INFORMATION Left Breast Lymph Node, r/o metastasis TISSUE OBTAINED @ 1322 IN FORMALIN @1326 Left Breast Mass, satellite lesion : FA vs. cancer TISSUE OBTAINED @ 1336 IN FORMALIN @ 1346 left breast mass and lymph node No Dx found. 1 7:00 AM [facility] COMMENT Special stain and/or immunohistochemical results are [...] is certified to perform high complexity testing. Cases may have been signed out in part or completely in the following laboratories: [facility], CLIA #[id number] [address] [place] [address] [facility], CLIA #[id number] [address] [place] [address] [facility], CLIA #[id number] [address] [place] [address]. 7:00 AM CDT [facility] Tissue (Lymph nodes, left) Collection / Unknown 01/23/2021 2:55 PM CDT 01/24/2021 8:19 AM CDT Comment:Left Breast Lymph No de, r/o metastasisTISSUE OBTAINED @ 1322IN FORMALIN @1326Left Breast Mass, satellite lesion : FA vs. cancerTISSUE OBTAINED @ 1336 IN FORMALIN @ 1346 Tissue specimen (specimen) LEFT BREAST STRUCTURE / Unknown 01/23/2021 2:55 PM CDT 01/24/2021 8:19 AM CDT Comment:Left Breast Lymph No de, r/o metastasisTISSUE OBTAINED @ 1322IN FORMALIN @1326Left Breast Mass, satellite lesion : FA vs. cancerTISSUE OBTAINED @ 1336 IN FORMALIN @ 1346 Catherine Jimenez MD PATHOLOGY/CYTOLOGY O [id number] [address] [place] [address] [place] [address] documented in this encounter Visit Diagnoses Diagnosis Malignant neoplasm of areola of left breast in female, estrogen receptor positive documented in this encounter Administered Medications Inactive Administered Medications - up to 3 most recent administrations Medication Order MAR Action Action Date Dose Rate Site lidocaine PF 1% (XYLOCAINE MPF) injection 30 mL 30 mL, See Admin Instructions, ONE TIME ONLY, 1 dose, On Wed01/23/21 at 1345, Routine Admin by Another Clinician (Comment) 01/23/2021 1:30 PM CDT 26 mL Operative Site sodium bicarbonate 4.2 % injection 2.5 mEq 2.5 mEq (5 mL), See Admin Instructions, ONE TIME ONLY, 1 dose, On Wed01/23/21 at 1345, Routine Started by Another Clinician 01/23/2021 1:30 PM CDT 4 mEq Operative Site documented in this encounter Care Teams Practice Professional Relationship Specialty Start Date End Date Rosa Shi MD [address] [place] [address] PCP - General Family Practice 01/15/21 documented as of this encounter
--- OUTSIDE RECORDS SUMMARY | 2024-10-23 02:19 | XMS_ITS | Encounter Summary ---
Author Organization [facility] Address [address] [place] [address] Care Team Providers Care Archaeology Professor Name Role Phone Rosa Shi MD Primary Care Provider [phone] Reason for Referral * Radiology Services (Routine) - Closed Specialty Diagnoses / Procedures Referred By Vi jackson Referred To Contact Diagnoses Malignant neoplasm of areola of left breast in female, estrogen receptor positive Procedures MAMMO [place] [address] [address] [facility] Test Scheduling [address] [address] Referral ID Status Reason Start Date Expiration Date V isits Requested Visits Authorized [id number] Closed STL CTS 01/17/2021 02/17/2022 1 1 Reason for Visit * Radiology Services (Routine) - Closed Specialty Diagnoses / Procedures Referred By Vi jackson Referred To Contact Diagnoses Malignant neoplasm of areola of left breast in female, estrogen receptor positive Procedures MAMMO [place] [address] [address] [facility] [address] [place] [address] [facility] Test Scheduling [facility] [address] [place] [address] Referral ID Status Reason Start Date Expiration Date V isits Requested Visits Authorized [id number] Closed STL CTS 01/17/2021 02/17/2022 1 1 Encounter Details Date Type Department Care Team (Latest Contact Info) Description 01/23/2021 11:08 AM CDT - 01/23/2021 11:59 PM CDT Hospital Encounter [facility] [place] [address] [place] [address] [place] [address] [address] [place] [address] Discharge Disposition: Home or Self Care [...] [place] Oncology and Hematology - [place] [address] [facility] [address] [place] [address] Aaron Smith MD [address] [facility] [address] [place] [address] 03/29/2025 12:30 PM CDT Appointment [facility] [place] [address] [address] [place] [address] [place] [address] [facility] [address] [place] [address] 03/29/2025 1:30 PM CDT Office Visit [facility] Breast Surgery [place] [address] [facility] [address] [place] [address] [place] [address] [facility] [address] [place] [address] documented as of this encounter Procedures Procedure Name Priority Date/Time Associated Diagnosis Comments MAMMO BREAST US LEFT LTD Routine 01/23/2021 12:15 PM CDT Malignant neoplasm of areola of left breast in female, estrogen receptor positive documented in this encounter Results * (ABNORMAL) MAMMO BREAST US LEFT LTD (01/23/2021 12:15 PM CDT) Anatomical Region Laterality Modality Left Ultrasound 01/23/2021 12:1 5 PM CDT Impressions 01/23/2021 3:42 PM CDT IMPRESSION: A small hypoechoic nodule at 9:00 of the left breast which likely corresponds to the more proximal nodule seen on the MRI. Another more posterior nodule is not well seen on the ultrasound. A prominent lymph node with thickened cortices at 2:00 of the left breast. RECOMMENDATIONS: Ultrasound-guided core biopsy of the mass at 9:00 and lymph node at 2:00. OVERALL FINAL ASSESSMENT: BI-RADS CATEGORY 4C: Suspicious Findings (High suspicion). Tissue biopsy is needed. DICTATION LOCATION: Katheryn Cornelius 01/23/2021 3:42 PM CDT LEFT BREAST ULTRASOUND LIMITED, 01/23/2021 HISTORY: MRI study dated 01/14/2021 showed possible two satellite nodules posterior to the biopsy-proven malignancy in the left breast. It also shows a prominent lymph node with thickened cortices in the upper-outer quadrant of the left breast. Second Look ultrasound was requested. Left breast ultrasound findings: At 9:00, a small hypoechoic nodule is visualized measuring about 0.7 x 0.4 x 0.6 cm. It is 2.3 cm from the index mass. It likely corresponds to the more proximal nodule seen on the MRI. Another satellite nodule more posteriorly is not well seen on the ultrasound. A prominent lymph node is visualized at 2:00, 12 cm from the nipple measuring about 2.6 x 1.6 cm. It has lobulated thickened cortices. Procedure Note Catherine Solano MD - 01/23/2021 LEFT BREAST ULTRASOUND LIMITED, 01/23/2021 HISTORY: MRI study dated 01/14/2021 showed possible two satellite nodules posterior to the biopsy-proven malignancy in the left breast. It also shows a prominent lymph node with thickened cortices in the upper-outer quadrant of the left breast. Second Look ultrasound was requested. Left breast ultrasound findings: At 9:00, a small hypoechoic nodule is visualized measuring about 0.7 x 0.4 x 0.6 cm. It is 2.3 cm from the index mass. It likely corresponds to the more proximal nodule seen on the MRI. Another satellite nodule more posteriorly is not well seen on the ultrasound. A prominent lymph node is visualized at 2:00, 12 cm from the nipple measuring about 2.6 x 1.6 cm. It has lobulated thickened cortices. IMPRESSION: A small hypoechoic nodule at 9:00 of the left breast which likely corresponds to the more proximal nodule seen on the MRI. Another more posterior nodule is not well seen on the ultrasound. A prominent lymph node with thickened cortices at 2:00 of the left breast. RECOMMENDATIONS: Ultrasound-guided core biopsy of the mass at 9:00 and lymph node at 2:00. OVERALL FINAL ASSESSMENT: BI-RADS CATEGORY 4C: Suspicious Findings (High suspicion). Tissue biopsy is needed. DICTATION LOCATION: [facility] Chayo Zepeda MD MAMMO ORDERABLES documented in this encounter Visit Diagnoses Diagnosis Malignant neoplasm of areola of left breast in female, estrogen receptor positive documented in this encounter Care Teams Archaeology Professor Relationship Specialty Start Date End Date Rosa Shi MD [address] [place] [address] PCP - General Family Practice 01/15/21 documented as of this encounter
--- OUTSIDE RECORDS SUMMARY | 2024-10-23 02:19 | XMS_ITS | Encounter Summary ---
Author Organization [facility] Address [address] [place] [address] Care Team Providers Care Line Construction Engineer Name Role Phone Rosa Shi MD Primary Care Provider [phone] Reason for Visit * Reason Onset Date Comments Results 01/17/2021 Encounter Details Date Type Department Care Team (Late st Contact Info) Description 01/17/2021 Telephone [facility] BREAST SURGERY - [place] [address] [facility] [address] [place] [address] [place] [address] [facility] [address] [place] [address] Results Social History Tobacco Use [...] PM CDT documented as of this encounter Miscellaneous Notes * Telephone Encounter - Chayo Zepeda MD - 01/17/2021 9:19 AM CDT Rosa Babb 01/17/2021 9:20 AM I called the patient to discuss her Breast MRI results and visit with medical oncology at [facility]. Breast MRI: 01/14/21 Left breast - irregular [...] and 1.7 cm. Right breast - negative 12/18/2020 ([place], [place]) - newly palpable left breast periareolar 9:00 irregular mass, measures 1.2 cm. BIRADs 4. Left breast US guided core biopsy - 12/23/2020 - invasive ductal carcinoma, intermediate grade ER positive (80%), [place] weakly positive (1-5%), HER2 2+ equivocal (FISH - amplified) - positive. I discussed surgical management options include wide local excisional lumpectomy with bracketed wires to plan to remove the main mass and additional satellite lesions versus total mastectomy. I wouldlike to biopsy and leave a clip in place of the additional findings seen on the breast MRI to elizabeth the territory before starting with upfront HER2 directed chemotherapy, which will help with surgical planning. Plan for right port placement as well prior to chemotherapy. She agrees to this plan and her questions were answered. Chayo Zepeda MD documented in this encounter Plan of Treatment Upcoming Encounters Date Type Department Care Team (Late st Contact Info) Description 02/12/2025 1:00 PM CDT Office Visit [facility] Oncology and Hematology - [place] [address] [facility] [address] [place] [address] Aaron Smith MD [address] [facility] [address] [place] [address] 03/29/2025 12:30 PM CDT Appointment [facility] [address] [place] [address] [place] [address] [facility] [address] [place] [address] 03/29/2025 1:30 PM CDT Office Visit [facility] Breast Surgery [place] [address] [facility] [place] [address] [place] [address] [place] [address] [facility] [address] [place] [address] documented as of this encounter Visit Diagnoses Not on filedocumented in this encounter Care Teams Line Construction Engineer Relationship Specialty Start Date End Date Rosa Shi MD [address] [place] [address] PCP - General Family Practice 01/15/21 documented as of this encounter
--- OUTSIDE RECORDS SUMMARY | 2024-10-23 02:19 | XMS_ITS | Encounter Summary ---
Author Organization [facility] Address [address] [place] [address] Care Team Providers Care Retort Forker Name Role Phone Rosa Shi MD Primary Care Provider [phone] Reason for Visit * Auth/Cert Specialty Diagnoses / Procedures Referred By Contastrid t Referred To Contact Diagnoses Malignant neoplasm of left female breast, unspecified estrogen receptor status, unspecified site of breast Malignant neoplasm of left female breast, unspecified estrogen receptor status, unspecified site of breast [C50.912] Procedures HI INSJ TUNNELED CTR VAD W/SUBQ PORT AGE 3 YR/> CHG FLUOROGUIDE CNTRL RYNE ACCESS,PLACE,REPLACE,REMOVE CHG US GUIDE, VASCULAR ACCESS RIGHT [place] [address] [place] [address] Referral ID Status Reason Start Date Expiration Date Visits Re quested Visits Authorized [id number] 01/16/2021 1 1 Encounter Details Date Type Department Care Team (Late st Contact Info) Description 01/29/2021 8:00 AM CDT Anesthesia Event [facility] [place] [address] [place] [address] Tay Melgar DO [address] [place] [address] Anesthesia Record Procedure Summary Procedure Name Responsible Anesthesiologist Anesthesia Start Time Anesthesia Stop Time RIGHT PORT A CATHETER PLACEMENT POSSIBLE LEFT PORT A CATHETER PLACEMENT (Right: Chest) Tay Melgar DO 01/29/21 0800 01/29/21 0856 Events Date Time Event Comment 01/29/2021 0730 0800 An Start Patient identif ied. Reviewed EPIC, VS, allergies, MEDICAL CLERICAL ASSISTANT Meds, Labs and History. Consent/procedure verified. Anesthesia plan explained to patient/family. Anesthesia options given. Questions solicited, answered. Patient and/or family verbalized understanding of plan and wish to proceed. Pre-op med given as documented. 0804 AN Equip Check Anesthesia eq uipment and materials checked in accordance with local policy. 0804 An Start Data Data not trans ferring from anesthesia machine. Patient receiving 02FM at 10L 0804 In Room This event disp lays the In Room time documented in the Surgical Log. Deleting this event will not remove it from the log but will remove it from the Grid and Graph timeline. 0809 Pre-Induction Immediate pre- induction anesthetic assessment performed. Vital signs as noted on graphic. End-Tidal Carbon Dioxide Monitoring Disclosure End-Tidal Carbon Dioxide Monitoring used during procedure. Since neither an endotracheal tube nor supraglottic device used, recorded numbers are not indicative of a true end tidal CO2 concentration. The values indicate presence of carbon dioxide and have no bearing on the quality of respiration. Monitoring is also subject to the measuring device and its location, implying that a low or absent reading does not necessarily indicate apnea or obstruction. Clinical correlation will be used. 0810 An Induction MAC anesthesia with Propofol titrated to effect for adequate depth of sedation for procedure. Initial dose given and charted, then total dose administered and charted at procedure end. 0812 Anesthesia Ready 0821 Local Inj by Surgeon 0821 Procedure Start This event d isplays the Procedure Start time documented in the Surgical Log. Deleting this event will not remove it from the log but will remove it from the Grid and Graph timeline. 0824 Local Inj by Surgeon 0848 Procedure Stop This event di splays the Procedure Stop time documented in the Surgical Log. Deleting this event will not remove it from the log but will remove it from the Grid and Graph timeline. 0851 an stop data Patient stable. Data Collection ends from intraop monitors. Patient moved self to bed/stretcher. Taken to PACU. 0851 Out of Room This event disp lays the Out of Room time documented in the Surgical Log. Deleting this event will not remove it from the log but will remove it from the Grid and Graph timeline. 0856 An Stop 0856 Hand-off to Receiving Clinic juan Post-Anesthetic transfer of care report elements to appropriate post-anesthesia recovery environment completed in accordance with procedure. Report to FRONT DESK COORDINATOR, including but not limited to Patient ID, Surgeon/proceduralist of record, pertinent medical history, allergies, OR-Procedure room procedure, Intra-op anesthetic management, I+O's. Provided opportunity for Q+A with verbal understanding by receiving RN, Patient stable. Care transferred. Vital Signs charted on flowsheet. Meds Name Total midazolam PF (VERSED) 1 mg/mL injection 2 mg fentaNYL (SUBLIMAZE) PF 50??mcg/mL injec tion 100 mcg lidocaine PF (XYLOCAINE MPF) 20 mg/mL sy ringe 60 mg propofol (DIPRIVAN) 10??mg/mL injection 60 mg propofol (DIPRIVAN) 10??mg/mL injection 365.04 mg ceFAZolin in sterile water ( ANCEF) 2 gram/20 mL IV Syringe (PREMIX) 2,000 mg 2,000 mg dexamethasone (DECADRON) 4 mg/mL injecti on 4 mg lactated ringers infusion 800 mL * Agents No agents on file. * Blood No blood administrations on file. Lines, Drains, and Airways Type Details Placement Removal Peripheral IV Pre-Hospital Start: No; Orientation: Posterior, Right; Location: Hand; Device: Angiocath; Gauge: 20 gauge; Needle Length: 1 in length; Insertion Attempts: 1; Patient Tolerance: tolerated well; Pain Prevention: distraction; Power Injectable Compatible: No 01/29/21 0733 by Nader Odonnell RN 01/29/21 09 by Maria E Faulkner RN Wound 01/29/21; 0821; No; 1; Right; chest; surgical; 01/29/21; 92301/29/21 08 by Rosa Browning RN 01/29/21 09 by Maria E Faulkner RN Vascular Access Port 01/29/21; 0825; No; Right:; top entry; 1; tolerated well; intradermal injection; 01/29/21; 92301/29/21824 by Rosa Browning RN 01/29/21923 by Maria E Faulkner RN documented in this encounter Social History Tobacco [...] Postprocedure Evaluation - Tay Melgar DO - 01/29/2021 9:15 AM CDT Phase II Postanesthesia Evaluation Including [facility] Modified Dena Score Patient seen and evaluated: [facility] Modified Dena Score: Score: 20 (01/29/21851) COMMENTS: No apparent Anesthesia related complications RESPIRATORY FUNCTION: Respiration: able to breath and cough freely (01/29/21851) [2=able to breathe and cough freely, 1=dyspnea, limited breathing or tachypnea, 0=apnea or mechanicventilator] O2 Saturation: able to maintain O2 saturation greater than 92% on room air (01/29/21851) [2=able to maintain O2 saturation greater than 92% on room air, 1=needs O2 inhalation to maintain O2 saturation greater than 90%, 0=O2 saturation less than 90% even with O2 supplement] Resp: 12 (01/29/21904)SpO2: 90 % (01/29/21904) CARDIOVASCULAR FUNCTION: Heart Rate: 82 bpm (01/29/21904) BP: (!) 189/104 (01/29/21904) Circulation: BP within 20% of preanesthetic level (01/29/21851) [2=BP within 20% of preanesthetic level, 1=BP within 20-49% of preanesthetic level, 0=BP within 50%of preanesthetic level] MENTAL STATUS, NEURO, ACTIVITY: PATIENT PARTICIPATION IN EVALUATIONyes Consciousness: fully awake (01/29/21851) [2=fully awake, 1=arousable on calling, 0=not responding] Activity: able to move 4 extremities voluntarily or on command (01/29/21851) [2=able to move 4 extremities voluntarily or on command, 1=able to move 2 extremities voluntarily or on command, 0=unable to move extremities voluntarily or on command] Ambulation: able to stand up and walk straight, on ordered bedrest, or performing at patient's prior level of function (01/29/21851) [2=able to stand up and walk straight, on ordered bedrest, or performing at patient's prior level of function, 1=vertigo when erect, 0=dizziness when supine] TEMPERATURE: Temp: 36.1 ??C (01/29/21851) PAIN: Pain: pain free (01/29/21851) [2=pain free, 1=pain handled by oral medication, 0=pain requiring parenteral medication] NAUSEA AND VOMITING: no nausea and no vomiting Fasting/Feeding: able to drink fluids, ice chips or NPO (01/29/21851) [2=able to drink fluids, ice chips or NPO, 1=nauseated, 0=nausea and vomiting] POSTOPERATIVE HYDRATION: well hydrated Intake/Output Summary (Last 24 hours) at 01/29/2021 0915 Last data filed at 01/29/2021 0842 Gross per 24 hour Intake 800 ml Output 20 ml Net 780 ml Urine Output: has voided, adequate urine output per device, or not applicable (01/29/21851) [2=has voided, adequate urine output per device, or not applicable, 1=unable to void but comfortable, 0=unable to void and uncomfortable] WOUND: Dressing: dry and clean or not applicable (01/29/21851) [2=dry and clean or not applicable, 1=wet, marked and not increasing, 0=growing area of wetness] Tay Melgar DO 01/29/2021 9:15 AM * Anesthesia Handoff - Ivon Osorio CRNA - 01/29/2021 8:56 AM CDT Post-Anesthetic transfer of care report [...] acknowledgement of understanding. Vital Signs: BP: (!) 182/95 (01/29/2021 8:52 AM) Pulse: 95 (01/29/2021 8:52 AM) Temp: 36.1 ??C (01/29/2021 8:52 AM) Resp: 12 (01/29/2021 8:52 AM) SpO2: 96 % (01/29/2021 8:52 AM) 8:58 AM Ivon Osorio CRNA * Anesthesia Preprocedure Evaluation - Tay Melgar DO - 01/29/2021 7:29 AM CDT Relevant Problems CARDIOVASCULAR (+) Essential [...] complications. Anesthesia Plan ASA Final: 3 General and MAC Intravenous induction Supraglottic airway maintenance NPO status > 8 hours Anesthetic plan and risks discussed with Patient. Plan discussed with Nurse Senior Treasury Consultant, Anesthesiologist and Surgeon. Post-op Pain Control Plan to use IV or IM medication, Oral medication and Per surgeon for post-op pain control. Plan for postoperative opioid use Smoking Compliance Patient did not smoke on day of surgery documented in this encounter Miscellaneous Notes * Addendum Note - Ivon Osorio CRNA - 01/29/2021 9:25 AM CDT Addendum created 01/29/21924 by Ivon Osorio CRNA Flowsheet accepted, Intraprocedure Flowsheets edited documented in this encounter Plan of Treatment Upcoming Encounters Date Type Department Care Team (Late st Contact Info) Description 02/12/2025 1:00 PM CDT Office Visit [facility] Oncology and Hematology - [place] [address] [place] [address] [address] [phone] Aaron Smith MD [address] [facility] [address] [place] [address] 03/29/2025 12:30 PM CDT Appointment [facility] [place] [address] [place] [address] [place] [address] [address] 03/29/2025 1:30 PM CDT Office Visit [facility] Breast Surgery [place] [address] [facility] [address] [place] [address] [place] [address] [address] documented as of this encounter [...] 0800, Routine, Pre-op, Antibiotic Indication: Surgical prophylaxis Given 01/29/2021 8:00 AM CDT 2,000 mg dexamethasone (DECADRON) injection IV, INTRA-PROCEDURE PRN, Starting on Wed01/29/21 at 0819, Until Wed01/29/21 at 0856, Routine, Anesthesia Intra-op Given 01/29/2021 8:19 AM CDT 4 mg fentaNYL PF (SUBLIMAZE) 50 mcg/mL injection IV, INTRA-PROCEDURE PRN, Starting on Wed01/29/21 at 0819, Until Wed01/29/21 at 0856, Routine, Anesthesia Intra-op Given 01/29/2021 8:23 AM CDT 25 mcg Given 01/29/2021 8:19 AM CDT 25 mcg Given 01/29/2021 8:00 AM CDT 50 mcg lactated ringers infusion IV, at 150 mL/hr, PRE-PROCEDURE CONTINUOUS, Starting on Wed01/29/21 at 0715, Until Wed01/29/21 at 1148, Routine, Pre-op Restarted 01/29/2021 8:41 AM CDT New Bag 01/29/2021 7:34 AM CDT 150 mL/hr lidocaine (PF) (XYLOCAINE MPF) 60 mg/3 mL (2 %) injection syringe IV, INTRA-PROCEDURE PRN, Starting on Wed01/29/21 at 0810, Until Wed01/29/21 at 0856, Routine, Anesthesia Intra-op Given 01/29/2021 8:10 AM CDT 60 mg midazolam (PF) (VERSED) injection IV, INTRA-PROCEDURE PRN, Starting on Wed01/29/21 at 0800, Until Wed01/29/21 at 0856, Routine, Anesthesia Intra-op Given 01/29/2021 8:00 AM CDT 2 mg propofoL (DIPRIVAN) injection IV, INTRA-PROCEDURE PRN, Starting on Wed01/29/21 at 0810, Until Wed01/29/21 at 0856, Anesthesia Intra-op Given 01/29/2021 8:10 AM CDT 60 mg propofoL (DIPRIVAN) injection IV, INTRA-PROCEDURE CONTINUOUS PRN, Starting on Wed01/29/21 at 0812, Until Wed01/29/21 at 08, Anesthesia Intra-op New Bag 01/29/2021 8:12 AM CDT 125 mcg/kg/min 75.525 mL/hr documented in this encounter Care Teams Retort Forker Relationship Specialty Start Date End Date Rosa Shi MD [address] [place] [phone] PCP - General Family Practice 01/15/21 documented as of this encounter
--- OUTSIDE RECORDS SUMMARY | 2024-10-23 02:19 | XMS_ITS | Encounter Summary ---
Author Organization [facility] Address [address] [place] [address] Care Team Providers Care Shell Maker Lockstitch Name Role Phone Rosa Shi MD Primary Care Provider [phone] Reason for Visit * Reason Onset Date Comments Medication Refill 03/06/2021 Encounter Details Date Type Department Care Team (Late st Contact Info) Description 03/06/2021 Refill [facility] Oncology and Hematology - [place] [address] [place] [address] [facility] [address] [place] [address] Aaron Smith MD [address] [facility] [address] [place] [address] Hypokalemia (Primary Dx) Social History Tobacco Use Types [...] Levi [address] [facility] [address] [place] [address] Aaron Smith MD [address] [facility] [address] [place] [address] 03/29/2025 12:30 PM CDT [facility] [address] [place] [address] [place] [address] [facility] [address] [place] [address] 03/29/2025 1:30 PM CDT Office Visit [facility] Breast Surgery [place] [address] [facility] [address] [place] [address] [place] [address] [facility] [address] [place] [address] documented as of this encounter Visit Diagnoses Diagnosis Hypokalemia- Primary Hypopotassemia documented in this encounter Care Teams Shell Maker Lockstitch Relationship Specialty Start Date End Date Rosa Shi MD [address] [place] [phone] PCP - General Family Practice 01/15/21 documented as of this encounter
--- OUTSIDE RECORDS SUMMARY | 2024-10-23 02:19 | XMS_ITS | Encounter Summary ---
Author Organization [facility] Address [address] [place] [address] Care Team Providers Care Hide And Skin Fleshing Machine Operator Name Role Phone Rosa Shi MD Primary Care Provider [phone] Reason for Referral * Radiology Services (Routine) - Closed Specialty Diagnoses / Procedures Referred By Vi jackson Referred To Contact Diagnoses Malignant neoplasm of areola of left breast in female, estrogen receptor positive Procedures MAMMO POST US/STEREO [place]UID[place] [address] [address] [facility] Test Scheduling [address] [address] Referral ID Status Reason Start Date Expiration Date V isits Requested Visits Authorized [id number] Closed [facility] CTS 01/17/2021 02/16/2021 1 1 Reason for Visit * Radiology Services (Routine) - Closed Specialty Diagnoses / Procedures Referred By Vi jackson Referred To Contact Diagnoses Malignant neoplasm of areola of left breast in female, estrogen receptor positive Procedures MAMMO POST US/STERE[place] [address] [facility] [address] [place] [address] [facility] Test Scheduling [id number] [place] [address] Referral ID Status Reason Start Date Expiration Date V isits Requested Visits Authorized [id number] Closed [facility] CTS 01/17/2021 02/16/2021 1 1 Encounter Details Date Type Department Care Team (Latest Contact Info) Description 01/23/2021 11:09 AM CDT - 01/23/2021 11:59 PM CDT Hospital Encounter [facility] [address] [address] [place] [address] [place] [address] [facility] [address] [place] [address] Discharge Disposition: Home or Self [...] Continuous as needed. LANCETS [facility] Use as directed 12/01/2020 blood [...] [facility] - [place] [address] [facility] [address] [place] [address] Aaron Smith MD [address] [facility] [address] [place] [address] 03/29/2025 12:30 PM CDT Appointment [facility] [place] [address] [place] [address] [place] [address] [facility] [address] [place] [address] 03/29/2025 1:30 PM CDT Office [facility] Breast Surgery [place] [address] [facility] [address] [place] [address] [place] [address] [facility] [address] [place] [address] documented as of this encounter Procedures Procedure Name Priority Date/Time Associated Diagnosis Comments MAMMO POST US/STEREO GUIDED PROCEDURE LT Routine 01/23/2021 3:07 PM CDT Malignant neoplasm of areola of left breast in female, estrogen receptor positive documented in this encounter Results * MAMMO POST US/STEREO GUIDED PROCEDURE LT (01/23/2021 3:07 PM CDT) Anatomical Region Laterality Modality Breast Left Mammography 01/23/2021 11:0 9 AM CDT Addenda Addendum by Catherine Solano [...] and a lymph node. DICTATION LOCATION: [facility] Narrative 01/23/2021 3:35 PM CDT ULTRASOUND-GUIDED LEFT BREAST [...] were submitted for surgical pathology in formalin. Procedure Note Catherine Solano MD - 01/23/2021 ULTRASOUND-GUIDED LEFT BREAST CORE BIOPSY, ULTRASOUND-GUIDED LYMPH [...] were submitted for surgical pathology in formalin. IMPRESSION: Technically successful ultrasound-guided core biopsy of left breast mass and a lymph node. DICTATION LOCATION: [facility] Chayo Pietro Zepeda MD MAMMO ORDERABLES documented in this encounter Visit Diagnoses Diagnosis Malignant neoplasm of areola of left breast in female, estrogen receptor positive documented in this encounter Care Teams Hide And Skin Fleshing Machine Operator Relationship Specialty Start Date End Date Rosa Shi MD [address] [place] [address] PCP - General Family Practice 01/15/21 documented as of this encounter
--- OUTSIDE RECORDS SUMMARY | 2024-10-23 02:19 | XMS_ITS | Encounter Summary ---
Author Organization [facility] Address [address] [facility] [facility] [address] Becerra: Epic Prelude ADT [place] [address] Care Team Providers Care Environmental Test Technician Name Role Phone Rosa Shi MD Primary Care Provider [phone] Encounter Details Date Type Department Care Team (Latest Contact Info) Description 01/21/2021 Travel Social History Tobacco Use Types Packs/Day [...] have Coronavirus / COVID-19? No / Unsure 01/21/2021 9:44 AM CDT documented as of this encounter Plan of Treatment Upcoming Encounters Date Type Department Care Team (Late st Contact Info) Description 02/12/2025 1:00 PM CDT Office Visit [facility] Oncology and Hematology - [place] [address] [place] [address] [place] [address] Aaron Smith MD [address] [facility] [address] [place] [address] 03/29/2025 12:30 PM CDT Appointment [facility] [address] [place] [address] [place] [address] [facility] [address] [place] [address] 03/29/2025 1:30 PM CDT Office Visit [facility] Breast Surgery [place] [address] [facility] [address] [place] [address] [place] [address] [facility] [address] [place] [address] documented as of this encounter Visit Diagnoses Not on filedocumented in this encounter Care Teams Environmental Test Technician Relationship Specialty Start Date End Date Rosa Shi MD [address] [place] [address] PCP - General Family Practice 01/15/21 documented as of this encounter
--- OUTSIDE RECORDS SUMMARY | 2024-10-23 02:19 | XMS_ITS | Encounter Summary ---
Author Organization [facility] Address [address] Becerra: Epic Prelude ADT [place] [address] Care Team Providers Care Corral Boss Name Role Phone Rosa Shi MD Primary Care Provider Encounter Details Date Type Department Care Team (Latest Contact Info) Description 01/23/2021 Travel Social History Tobacco Use Types Packs/Day [...] PM CDT Office Visit [facility] Oncology and Hematology - [place] [address] [facility] [address] [place] [address] Aaron Smith MD [address] [facility] [address] [place] [address] 03/29/2025 12:30 PM CDT Appointment [facility] [address] [address] [place] [address] [place] [address] [facility] [address] [place] [address] 03/29/2025 1:30 PM CDT Office Visit [facility] Breast Surgery [address] [address] [facility] [address] [place] [address] [place] [address] [facility] [address] [place] [address] documented as of this encounter Visit Diagnoses Not on filedocumented in this encounter Care Teams Corral Boss Relationship Specialty Start Date End Date Rosa Shi MD [address] [place] [address] PCP - General Family Practice 01/15/21 documented as of this encounter
--- OUTSIDE RECORDS SUMMARY | 2024-10-23 02:19 | XMS_ITS | Encounter Summary ---
Author Organization [facility] [employer] [facility] Address [address] [place] [address] Care Team Providers Care Install Technician Name Role Phone Rosa Shi MD Primary Care Provider [phone] Reason for Visit * Reason Onset Date Comments Medication Refill 03/11/2021 Encounter Details Date Type Department Care Team (Late st Contact Info) Description 03/11/2021 Refill [facility] Oncology and Hematology - [place] [address] [place] [address] [facility] [address] [place] [address] Aaron Smith MD [address] [facility] [address] [place] [address] Malignant neoplasm of areola of [...] Description 02/12/2025 1:00 PM CDT Office Visit [facility] Oncology and Hematology - [place] [address] [facility] [address] [place] [address] Aaron Smith MD [address] [facility] [address] [place] [address] 03/29/2025 12:30 PM CDT Appointment [facility] [place] [address] [place] [address] [place] [address] [facility] [address] [place] [address] 03/29/2025 1:30 PM CDT Office Visit [facility] Breast Surgery [facility] [address] [facility] [address] [place] [address] [place] [address] [facility] [address] [place] [address] documented as of this encounter Visit Diagnoses Diagnosis Malignant neoplasm of areola of left breast in female, estrogen receptor positive- Primary documented in this encounter Care Teams Install Technician Relationship Specialty Start Date End Date Rosa Shi MD [address] [place] [address] PCP - General Family Practice 01/15/21 documented as of this encounter
--- OUTSIDE RECORDS SUMMARY | 2024-10-23 02:19 | XMS_ITS | Encounter Summary ---
Author Organization [facility] Address [address] [facility] [address] Becerra: Epic Prelude ADT [place] [address] Care Team Providers Care Social Worker Palliative Care Name Role Phone Rosa Shi MD Primary Care Provider [phone] Encounter Details Date Type Department Care Team (Latest Contact Info) Description 01/24/2021 Travel Social History Tobacco Use Types Packs/Day [...] Center Oncology and Hematology - [place] [address] [facility] [address] [place] [address] Aaron Smith MD [address] [facility] [address] [place] [address] 03/29/2025 12:30 PM CDT Appointment [facility] [address] [place] [address] [place] [address] [facility] [address] [place] [address] 03/29/2025 1:30 PM CDT Office Visit [facility] Breast Surgery [address] [facility] [facility] [address] [place] [address] [place] [address] [facility] [address] [place] [address] documented as of this encounter Visit Diagnoses Not on filedocumented in this encounter Care Teams Social Worker Palliative Care Relationship Specialty Start Date End Date Rosa Shi MD [address] [place] [address] PCP - General Family Practice 01/15/21 documented as of this encounter
--- OUTSIDE RECORDS SUMMARY | 2024-10-23 02:19 | XMS_ITS | Encounter Summary ---
Author Organization [facility] ([facility]3] [employer] [facility] Address [address] [place] [address] Care Team Providers Care Shipping Weigher Name Role Phone Rosa Shi MD Primary Care Provider [phone] Reason for Visit * Reason Onset Date Comments Medication Refill 02/04/2021 Encounter Details Date Type Department Care Team (Late st Contact Info) Description 02/04/2021 Refill [facility] Oncology and Hematology - [place] [address] [place] [address] [address] Aaron Smith MD [address] [facility] [address] [place] [address] Malignant neoplasm [...] [place] Oncology and Hematology - [place] [address] [facility] [address] [place] [address] Aaron Smith MD [address] [facility] [address] [place] [address] 03/29/2025 12:30 PM CDT Appointment [facility] [place] [address] [place] [address] [place] [address] [facility] [address] [place] [address] 03/29/2025 1:30 PM CDT Office Visit [facility] Breast Surgery [facility] [address] [facility] [address] [place] [address] [place] [address] [facility] 120 [place] [address] documented as of this encounter Visit Diagnoses Diagnosis Malignant neoplasm of areola of left breast in female, estrogen receptor positive- Primary documented in this encounter Care Teams Shipping Weigher Relationship Specialty Start Date End Date Rosa Shi MD [address] [place] [address] PCP - General Family Practice 01/15/21 documented as of this encounter
--- OUTSIDE RECORDS SUMMARY | 2024-10-23 02:19 | XMS_ITS | Encounter Summary ---
Author Organization [facility] Address [address] [place] [address] Care Team Providers Care Portuguese Tutor Name Role Phone Rosa Shi MD Primary Care Provider [phone] Reason for Referral * Radiology Services (Routine) - Closed Specialty Diagnoses / Procedures Referred By Vi t Referred To Contact Diagnoses Malignant neoplasm of areola of left breast in female, estrogen receptor positive Procedures MAMMO POST US/STEREO GUID[place] [address] [address] [facility] [address] [place] [address] [facility] Test Scheduling [address] [address] Referral ID Status Reason Start Date Expiration Date V isits Requested Visits Authorized [id number] Closed STL CTS 01/17/2021 02/16/2021 1 1 * Radiology Services (Routine) - Closed Specialty Diagnoses / Procedures Referred By Vi jackson Referred To Contact Diagnoses Malignant neoplasm of areola of left breast in female, estrogen receptor positive Procedures MAMMO BRE[place] [address] [address] [facility] 120 [place] [address] [facility] Test Scheduling [facility] [address] [place] [address] Referral ID Status Reason Start Date Expiration Date V isits Requested Visits Authorized [id number] Closed STL CTS 01/17/2021 02/16/2021 1 1 * Radiology Services (Routine) - Closed Specialty Diagnoses / Procedures Referred By Contac t Referred To Contact Diagnoses Malignant neoplasm of areola of left breast in female, estrogen receptor positive Procedures MAMMO [place]AST [place] [address] [facility] [address] [place] [address] [facility] Test Scheduling [facility] [address] [place] [address] Referral ID Status Reason Start Date Expiration Date V isits Requested Visits Authorized [id number] Closed STL CTS 01/17/2021 02/17/2022 1 1 Encounter Details Date Type Department Care Team (Late st Contact Info) Description 01/17/2021 Orders Only [facility] BREAST SURGERY - [place] [address] [place] [address] [place] [address] [facility] [place] [address] Malignant neoplasm of areola of [...] PM CDT Office Visit [facility] Oncology and Hematology - [place] [address] [facility] [address] [place] [address] Aaron Smith MD [address] [facility] [address] [place] [address] 03/29/2025 12:30 PM CDT Appointment [facility] [address] [place] [address] [place] [address] [facility] [address] [place] [address] 03/29/2025 1:30 PM CDT Office Visit [facility] Breast Surgery [address] [address] [facility] [address] [place] [address] [place] [address] [facility] [address] [place] [address] documented as of this encounter Results * MAMMO POST US/STEREO [...] mass and a lymph node. DICTATION LOCATION: [facility] Narrative 01/23/2021 3:35 PM CDT ULTRASOUND-GUIDED LEFT [...] a lymph node. DICTATION LOCATION: [place] Chayo Zepeda MD MAMMO ORDERABLES * MAMMO BREAST US BIOPSY LEFT (01/23/2021 [...] formalin. Chayo Zepeda MD MAMMO ORDERABLES * (ABNORMAL) MAMMO BREAST US LEFT [facility] (01/23/2021 12:15 PM CDT) Anatomical Region Laterality [...] Tissue biopsy is needed. DICTATION LOCATION: [facility] Narrative 01/23/2021 3:42 PM CDT LEFT BREAST ULTRASOUND [...] suspicion). Tissue biopsy is needed. DICTATION LOCATION: [facility] Chayo Zepeda MD MAMMO ORDERABLES documented [...] positive documented in this encounter Care Teams Portuguese Tutor Relationship Specialty Start Date End Date Rosa Shi MD [address] [place] [address] PCP - General Family Practice 01/15/21 documented as of this encounter
--- OUTSIDE RECORDS SUMMARY | 2024-10-23 02:19 | XMS_ITS | Encounter Summary ---
Author Organization [facility] Address [address] [place] [address] Care Team Providers Care Tube Teller Name Role Phone Rosa Shi MD Primary Care Provider [phone] Reason for Referral * Eval and Treat (Routine) - Closed Specialty Diagnoses / Procedures Referred By Contac t Referred To Contact Hematology and Oncology Diagnoses Infiltrating ductal carcinoma of breast, [place] [address] [address] [facility] Oncology Patient Navigation [address] [place] [address] Referral ID Status Reason Start Date Expiration Date Visits Requested Visits Authorized [id number] Closed Performing Department to Schedule 02/14/2021 02/14/2022 1 1 Reason for Visit * Reason Comments Nurse Navigation Encounter Details Date Type Department Care Team (Late st Contact Info) Description 02/14/2021 [facility] [address] [place] [address] Sonia Herrera RN Nurse Navigation Social History Tobacco Use [...] Notes * Sonia Herrera RN - 02/14/2021 1:53 PM CDT Navigation Assessment Note Spoke to patient following first chemo infusion. Pt reports feeling physically well overall and denies any N/V. Pt expressed some financial concerns. Referral placed for [employer] and pt provided with [place] [facility] application. Social work referral placed. Pt also requesting to speak with Dr. Zepeda regaurding results of biopsy. This RN notfiied Dr. Zepeda's RN of the patient's request. Alyce Herrera RN, Nurse Navigator documented in this encounter Plan of Treatment Upcoming Encounters Date Type Department Care Team (Late st Contact Info) Description 02/12/2025 1:00 PM CDT Office Visit [facility] Oncology and Hematology - [place] [address] [place] [address] [facility] [address] [place] [address] Aaron Smith MD [address] [facility] [address] [place] [address] 03/29/2025 12:30 PM CDT Appointment [facility] [address] [address] [place] [address] [address] [facility] [address] [place] [address] 03/29/2025 1:30 PM CDT Office Visit [facility] Breast Surgery [address] [address] [facility] [address] [place] [address] [place] [address] [place] [address] [place] [address] Scheduled Referrals Name Type Priority Associated Diagnoses Orde r Schedule AMB REFERRAL TO SOCIAL WORK Outpatient Referral Routine Infiltrating ductal carcinoma of breast, unspecified laterality Ordered: 02/14/2021 documented as of this encounter Visit Diagnoses Diagnosis Infiltrating ductal carcinoma of breast, unspecified laterality- Primary documented in this encounter Care Teams Tube Teller Relationship Specialty Start Date End Date oRsa Shi MD [address] [place] [address] PCP - General Family Practice 01/15/21 documented as of this encounter
--- OUTSIDE RECORDS SUMMARY | 2024-10-23 02:19 | XMS_ITS | Encounter Summary ---
Author Organization [facility] [email or web address] [facility] Address [address] [place] [address] Care Team Providers Care Stock Handler Floorperson Name Role Phone Rosa Shi MD Primary Care Provider [phone] Encounter Details Date Type Department Care Team (Late st Contact Info) Description 02/18/2021 Orders Only [facility] Oncology and Hematology - [place] [address] [facility] 200 [place] [address] Aaron Smith MD [address] [facility] [address] [place] [address] Malignant neoplasm of areola of [...] 02/12/2025 1:00 PM CDT Office Visit [facility] Oncology and Hematology - [place] [address] [facility] [address] [place] [address] Aaron Smith MD [address] [facility] [address] [place] [address] 03/29/2025 12:30 PM CDT Appointment [facility] [address] [place] [address] [place] [address] [facility] 120 [place] [address] 03/29/2025 1:30 PM CDT Office Visit [facility] Breast Surgery [facility] [address] [facility] [address] [place] [address] [place] [address] [facility] 120 [place] [address] documented as of this encounter Visit Diagnoses Diagnosis Malignant neoplasm of areola of left breast in female, estrogen receptor positive documented in this encounter Care Teams Stock Handler Floorperson Relationship Specialty Start Date End Date Rosa Shi MD [address] [place] [address] PCP - General Family Practice 01/15/21 documented as of this encounter
--- OUTSIDE RECORDS SUMMARY | 2024-10-23 02:19 | XMS_ITS | Encounter Summary ---
Author Organization [facility] [employer] [facility] Address [address] [place] [address] Care Team Providers Care Water Pump Operator Name Role Phone Rosa Shi MD Primary Care Provider [phone] Reason for Visit * Reason Comments Follow Up Pt having discomfort accross top L breast area/ slept with ice pack and tylenol Follow Up 3 week f/u with labs and Tx Encounter Details Date Type Department Care Team (Late st Contact Info) Description 03/26/2021 9:00 AM CDT Office Visit [facility] Oncology and Hematology - [place] [address] [place] [address] 200 [place] [address] Aaron Smith MD 2[address] [facility] [address] [place] [address] Malignant neoplasm of areola of [...] Sign Reading Time Taken Comments Blood Pressure 159/77 03/26/2021 9:17 AM CDT Pulse 81 03/26/2021 9:17 AM CDT Temperature 36.9 ??C (98.4 ??F) 03/26/2021 9:17 AM CD T Respiratory Rate - - Oxygen Saturation 96% 03/26/2021 9:17 AM CDT Inhaled Oxygen Concentration - - Weight 101.5 kg (223 lb 12.8 oz) 03/26/2021 9:17 AM CDT Height 157.5 cm (5' 2 ) 03/26/2021 9:17 AM CDT Body Mass Index 40.93 03/26/2021 9:17 AM CDT documented in this encounter Progress Notes * Aaron Smith MD - 03/26/2021 10:23 AM CDT HEMATOLOGY / ONCOLOGY PROGRESS [...] the office for follow-up visit. She has intermittent nausea and diarrhea. She hasbeen taking Imodium with good diarrhea control. Some tiredness and fatigue. No other new complaints. ?? Review of system Constitutional: denies fevers, sweats, [...] hemoglobin 11.1 and platelets 354,000 creatinine 0.8. @IMAGEIMP@ Assessment: Plan: Patient Active Problem List [...] Labs noted. Patient will proceed with cycle 3/6 of chemotherapy with TCH Perjeta today. So far she is tolerating treatment well. I plan to see her back in 3 weeks. Chemotherapy-induced neutropenia prophylaxis. Continue Neulasta. Chemotherapy-induced diarrhea. Continue Imodium. TOBACCO COUNSELING She is not a tobacco user. 03/26/2021 Aaron Smith MD documented in this encounter Plan of Treatment Upcoming Encounters Date Type Department Care Team (Late st Contact Info) Description 02/12/2025 1:00 PM CDT Office Visit [facility] Oncology and Hematology - [place] [address] [facility] [address] [place] [address] Aaron Smith MD [address] [facility] [address] [place] [address] 03/29/2025 12:30 PM CDT Appointment [facility] [place] [address] [address] [place] [address] [address] [place] [phone] 03/29/2025 1:30 PM CDT Office Visit [facility] Breast Surgery [place] [address] [address] [facility] [address] [place] [address] [place] [address] [address] [facility] [address] [place] [address] Scheduled Orders Name Type Priority Associated Diagnoses Orde r Schedule BASIC METABOLIC PANEL Lab Routine Malignant neoplasm of areola of left breast in female, estrogen receptor positive Expected: 04/16/2021 (Approximate), Expires: 03/26/2022 CBC WITH DIFFERENTIAL Lab Routine Malignant neoplasm of areola of left breast in female, estrogen receptor positive Expected: 04/16/2021 (Approximate), Expires: 03/26/2022 documented as of this encounter Visit Diagnoses Diagnosis Malignant neoplasm of areola of left breast in female, estrogen receptor positive- Primary documented in this encounter Care Teams Water Pump Operator Relationship Specialty Start Date End Date Rosa Shi MD [address] [place] [address] PCP - General Family Practice 01/15/21 documented as of this encounter
--- OUTSIDE RECORDS SUMMARY | 2024-10-23 02:19 | XMS_ITS | Encounter Summary ---
Author Organization [facility] Address [address] [place] [address] Care Team Providers Care Process Control Tech Name Role Phone Rosa Shi MD Primary Care Provider [phone] Reason for Visit * Auth/Cert Specialty Diagnoses / Procedures Referred By Contac t Referred To Contact Diagnoses Malignant neoplasm of left female breast, unspecified estrogen receptor status, unspecified site of breast Malignant neoplasm of left female breast, unspecified estrogen receptor status, unspecified site of breast [C50.912] Procedures ID INSJ TUNNELED CTR VAD W/SUBQ PORT AGE 3 YR/> CHG FLUOROGUIDE CNTRL RYNE ACCESS,PLACE,REPLACE,REMOVE CHG US GUIDE, VASCULAR ACCESS RIGHT [place] [address] [address] [place] [address] Referral ID Status Reason Start Date Expiration Date Visits Re quested Visits Authorized [id number] 01/16/2021 1 1 Encounter Details Date Type Department Care Team (Latest Contact Info) Description 01/29/2021 8:49 AM CDT - 01/29/2021 11:59 PM CDT Hospital Encounter [facility] Imaging Services [place] [address] [address] [place] [address] [address] [place] [phone] Discharge Disposition: Home or Self Care Social [...] by inhalation Continuous as needed. LANCETS [facility] Use as directed 12/01/2020 blood sugar diagnostic [...] Visit [facility] Oncology and Hematology - [place] [address] [address] [place] [address] Aaron Smith MD [address] [facility] [address] [place] [address] 03/29/2025 12:30 PM CDT Appointment [facility] [address] [place] [address] [place] [address] [address] [place] [address] 03/29/2025 1:30 PM CDT Office Visit [facility] Breast Surgery [place] [address] [place] [address] [place] [address] [address] [facility] [address] [place] [address] documented as of this encounter Procedures Procedure Name Priority Date/Time Associated Diagnosis Comments XR CHEST PA OR AP 1 VW Routine 01/29/2021 9:07 AM CDT documented in this encounter Results * XR CHEST PA OR AP 1 VW (01/29/2021 9:07 AM CDT) Anatomical Region Laterality Modality Chest Computed Radiogr aphy 01/29/2021 9:07 AM CDT Impressions 01/29/2021 11:19 AM CDT IMPRESSION: New right jugular central venous catheter with tip at the cavoatrial junction. No pneumothorax demonstrated. DICTATION LOCATION: Location 1 - [facility] Narrative 01/29/2021 11:19 AM CDT PORTABLE CHEST, [...] junction. No pneumothorax demonstrated. DICTATION LOCATION: Location 1 - [facility] Chayo Zepeda MD DIAGNOSTIC IMAGI NG ORDERABLES documented in this encounter Visit Diagnoses Not on filedocumented in this encounter Care Teams Process Control Tech Relationship Specialty Start Date End Date Rosa Shi MD [address] [place] [address] PCP - General Family Practice 01/15/21 documented as of this encounter
--- OUTSIDE RECORDS SUMMARY | 2024-10-23 02:19 | XMS_ITS | Encounter Summary ---
Author Organization [facility] [employer] [facility] Address [address] [place] [address] Care Team Providers Care Electronics Inspector Name Role Phone Rosa Shi MD Primary Care Provider [phone] Encounter Details Date Type Department Care Team (Late st Contact Info) Description 02/14/2021 Orders Only [facility] Oncology and Hematology - [place] [address] [place] [address] [place] Malignant neoplasm of [...] [facility] - [place] [address] [place] [address] Aaron Smith MD [address] [phone] 03/29/2025 12:30 PM CDT [facility] [address] [place] [address] [place] [address] [facility] 120 [place] [address] 03/29/2025 1:30 PM CDT Office Visit [facility] Breast Surgery [address] [address] [facility] [address] [place] [address] [place] [address] [facility] 120 [place] [address] documented as of this encounter Visit Diagnoses Diagnosis Malignant neoplasm of areola of left breast in female, estrogen receptor positive documented in this encounter Care Teams Electronics Inspector Relationship Specialty Start Date End Date Rosa Shi MD [address] [place] [address] PCP - General Family Practice 01/15/21 documented as of this encounter
--- OUTSIDE RECORDS SUMMARY | 2024-10-23 02:19 | XMS_ITS | Encounter Summary ---
Author Organization [facility] Address [address] [place] [address] Care Team Providers Care Nuclear Plant Operator Name Role Phone Rosa Shi MD Primary Care Provider [phone] Reason for Visit * Reason Comments Nurse Navigation Encounter Details Date Type Department Care Team (Late st Contact Info) Description 01/23/2021 Chart Note [facility] Oncology Patient Navigation [address] [place] [address] Sonia Herrera, RN Nurse Navigation Social History [...] of this encounter Progress Notes * Sonia Herrera, RN - 01/23/2021 2:01 PM CDT Navigation Assessment Note Met with patient prior to biopsy and consented pt for procedure. Pt tearful so this RN remained at pt's bedside during procedure and offered support. Pt aware that pathology can take 4-6 days and will hear from Dr. Zepeda's office when results are available. Pt scheduled for port placement 01/29/21. Pt has contact info for this RN and will reach out with any non-emergent needs. This RN to follow up. Alyce Herrera, RN, Nurse Navigator documented in this encounter Plan of Treatment Upcoming Encounters Date Type Department Care Team ([facility] st Contact Info) Description 02/12/2025 1:00 PM CDT Office Visit [facility] Oncology and Hematology - [place] [address] [facility] 200 [place] [address] Aaron Smith MD 2[address] [facility] [address] [place] [address] 03/29/2025 12:30 PM CDT Appointment [facility] [address] [place] [address] [place] [address] [facility] [address] [place] [address] 03/29/2025 1:30 PM CDT Office Visit [facility] Breast Surgery [facility] [address] [facility] [address] [place] [address] [place] [address] [facility] [address] [place] [address] documented as of this encounter Visit Diagnoses Not on filedocumented in this encounter Care Teams Nuclear Plant Operator Relationship Specialty Start Date End Date Rosa Shi MD [address] [place] [address] PCP - General Family Practice 01/15/21 documented as of this encounter
--- OUTSIDE RECORDS SUMMARY | 2024-10-23 02:19 | XMS_ITS | Encounter Summary ---
Author Organization [facility] [employer] [facility] Address [address] [place] [address] Care Team Providers Care Building Construction Ironworker Name Role Phone Rosa Shi MD Primary Care Provider [phone] Reason for Visit * Reason Comments Follow Up F/U with Initial Tx / Chemo Consent Encounter Details Date Type Department Care Team (Late st Contact Info) Description 02/12/2021 8:30 AM CDT Office Visit [facility] Oncology and Hematology - [place] [address] [place] [address] [address] [place] [address] Aaron Smith MD [address] [facility] [address] [place] [address] Malignant neoplasm of areola of left breast in female, estrogen receptor positive (Primary Dx); Chemotherapy-induced neutropenia Social History Tobacco Use Types [...] Sign Reading Time Taken Comments Blood Pressure 185/95 02/12/2021 8:51 AM CDT Pulse 80 02/12/2021 8:51 AM CDT Temperature 36.7 ??C (98 ??F) 02/12/2021 8:51 AM CDT Respiratory Rate - - Oxygen Saturation 94% 02/12/2021 8:51 AM CDT Inhaled Oxygen Concentration - - Weight 101.7 kg (224 lb 1.6 oz) 02/12/2021 8:51 AM CDT Height 157.5 cm (5' 2 ) 02/12/2021 8:51 AM CDT Body Mass Index 40.99 02/12/2021 8:51 AM CDT documented in this encounter Progress Notes * Aaron Smith MD - 02/12/2021 1:58 PM CDT HEMATOLOGY / ONCOLOGY PROGRESS NOTE Patient Identification: Name: Rosa Babb Age: 55 y.o. Sex: female : 1965 DIAGNOSIS T2 N1 M0 stage IIB invasive mammary carcinoma status post left breast 9:00 needle biopsy done on January 14, 2021. ER strongly positive, ME weakly positive and HER-2/dez positive. Ultrasound-guided biopsy [...] office for follow-up visit and to start the initial round of chemotherapy today. She denies any nausea vomiting. Denies any chest pain or shortness of breath. No other new complaints. ?? Review of [...] focal deficit Bilateral breast examination was performed. Left breast mass palpable almost 3 cm in size at 11 o'clock position. [facility] Labs from February 16 showed WBC 7.1 hemoglobin 12.9 platelet 306,000 creatinine 0.7. @IMAGEIMP@ Assessment: Plan: Patient Active Problem List [...] positive, ME weakly positive and HER-2/dez positive. Ultrasound-guided biopsy of satellite nodule 8 mm came back positive for invasive ductal carcinoma and biopsy of one of the nodule 4 mm also came back positive for invasive ductal carcinoma on January 23, 2021. MRI findings and labs discussed with the patient and the son in detail. I will proceed with initialneoadjuvant chemotherapy with TC Perjeta today. I will also order genetic testing. I will see her back in 3 weeks. Chemotherapy-induced neutropenia prophylaxis. Patient will receive Neulasta. Follow-up in 3 weeks. ? TOBACCO COUNSELING She is not a tobacco user. 02/12/2021 Aaron Smith MD documented in this encounter Miscellaneous Notes * Addendum Note - Aaron Smith MD - 03/05/2021 5:21 PM CDTAddended by: AARON SMITH on: 03/05/2021 05:21 PM Modules accepted: Level of Service documented in this encounter Plan of Treatment Upcoming Encounters Date Type Department Care Team (Late st Contact Info) Description 02/12/2025 1:00 PM CDT Office Visit [facility] Oncology and Hematology [facility] [address] [facility] [address] [place] [address] Aaron Smith MD [address] [facility] [address] [place] [address] 03/29/2025 12:30 PM CDT Appointment [facility] [address] [address] [address] [place] [address] [place] [address] [address] [facility] [address] [address] 03/29/2025 1:30 PM CDT Office Visit [facility] Breast Surgery [place] [address] [address] [facility] [address] [address] [place] [address] [address] [facility] [address] [address] Scheduled Orders Name Type Priority Associated Diagnoses Orde r Schedule BASIC METABOLIC PANEL Lab Routine Malignant neoplasm of areola of left breast in female, estrogen receptor positive Expected: 03/05/2021 (Approximate), Expires: 02/12/2022 CBC WITH DIFFERENTIAL Lab Routine Malignant neoplasm of areola of left breast in female, estrogen receptor positive Expected: 03/05/2021 (Approximate), Expires: 02/12/2022 documented as of this encounter Visit Diagnoses Diagnosis Malignant neoplasm of areola of left breast in female, estrogen receptor positive- Primary Chemotherapy-induced neutropenia Drug induced neutropenia documented in this encounter Care Teams Building Construction Ironworker Relationship Specialty Start Date End Date Rosa Shi MD [address] [place] [id number] PCP - General Family Practice 01/15/21 documented as of this encounter
--- OUTSIDE RECORDS SUMMARY | 2024-10-23 02:19 | XMS_ITS | Encounter Summary ---
Author Organization [facility] Address [address] [facility] [address] Becerra: Epic Prelude ADT [address] [place] [address] Care Team Providers Care Radiation Oncology Nurse Name Role Phone Rosa Shi MD Primary Care Provider [phone] Encounter Details Date Type Department Care Team (Latest Contact Info) Description 01/29/2021 Travel Social History Tobacco Use Types Packs/Day [...] Hospital Oncology and Hematology - [place] [address] [place] [address] Aaron Smith MD [address] [facility] [address] [place] [address] 03/29/2025 12:30 PM CDT Appointment [facility] [address] [place] [address] [place] [address] [facility] [address] [place] [address] 03/29/2025 1:30 PM CDT Office Visit [facility] Breast Surgery [place] [address] [facility] [address] [place] [address] [place] [address] [facility] [address] [place] [address] documented as of this encounter Visit Diagnoses Not on filedocumented in this encounter Care Teams Radiation Oncology Nurse Relationship Specialty Start Date End Date Rosa Shi MD [address] [place] [address] PCP - General Family Practice 01/15/21 documented as of this encounter
--- OUTSIDE RECORDS SUMMARY | 2024-10-23 02:20 | XMS_ITS | Encounter Summary ---
Author Organization [facility] Address [address] [place] [address] Care Team Providers Care Wood Sash And Frame Carpenter Name Role Phone Polina Rajput MD Primary Care Provider Sabi cervantes Reason for Visit * Reason Comments Results Pain Management Encounter Details Date Type Department Care Team (Late st Contact Info) Description 12/26/2012 9:30 AM TOY ASSEMBLER WOOD Office Visit [address] [address] Patricia Priest MD NO ADDRESS ON FILE Vulvar dermatitis (Primary Dx); Vaginal itching; Chronic vulvitis; S/P JEFF (total abdominal hysterectomy); Diabetes mellitus; Lichen sclerosus et atrophicus of the vulva Social History Tobacco Use Types Packs/Day Years Used Date Smoking Tobacco: Unknown Smokeless Tobacco: Never Alcohol Use Standard Drinks/Week Comments Yes 0 (1 standard drink = 0.6 oz pur e alcohol) 1/week Sex and Gender Information Value Date Recorded Sex Assigned at Not on file Gender Identity Not on file Sexual Orientation Not on file documented as of this encounter Last Filed Vital Signs Vital Sign Reading Time Taken Comments Blood Pressure 164/99 12/26/2012 9:21 AM TOY ASSEMBLER WOOD Pulse - - Temperature - - Respiratory Rate - - Oxygen Saturation - - Inhaled Oxygen Concentration - - Weight 105.1 kg (231 lb 9.6 oz) 12/26/2012 9:21 AM TOY ASSEMBLER WOOD Height 157.5 cm (5' 2 ) 12/26/2012 9:21 AM TOY ASSEMBLER WOOD Body Mass Index 42.36 12/26/2012 9:21 AM TOY ASSEMBLER WOOD documented in this encounter Progress Notes * Patricia Priest MD - 12/26/2012 11:46 AM CST Pt here for follow-up after a repeat vulvar biopsy given refractory vulvar itching despite treatment with topical clobetasol cream and premarin cream. She has a remote hx of vulvar lichen sclerosus by biopsy. She denies any new lesions, symptoms or problems. She had borderline diabetes and is seeing her insole rounder today. Filed Vitals: 12/26/12 0920 12/26/12 0921 BP: 164/99 Height: 5' 2 (1.575 m) Weight: 231 lb 9.6 oz (105.053 kg) 231 lb 9.6 oz (105.053 kg) PE: Deferred Results for orders placed during the hospital encounter of 12/09/12 PATHOLOGY Component Value Range SURGICAL PATHOLOGY Value: [address] [place] [address] [address] Patient: KEVIN CHAKRABORTY : 1965 Procedure Date: 12/09/2012 Accession Date: 12/10/2012 Case No: [id number] Ordering Dr: PATRICIA PRIEST [place] [address]; all other case types are performed by [address] [address] SURGICAL PATHOLOGY & NON-GYNECOLOGIC CYTOPATHOLOGY REPORT DIAGNOSIS SKIN, RIGHT POSTERIOR LABIA MAJORA, PUNCH BIOPSY: - SUBACUTE SPONGIOTIC DERMATITIS. Specimen Description: Right posterior labia majora. Operative Procedure: Right vulvar Geni punch biopsy. Patient Information/History/Diagnosis: Chronic vulvitis with vulvar itching; prior history of lichen sclerosis (failed steroid cream, Premarin cream); rule out infection and neoplasia. ICD code 698.1AK, vulvar itching; ICD code 701.0J, lichen sclerosis et atrophicus of the vulval; ICD code 616.1OQ, chronic vulvitis. Gross: The specimen is received in a container labeled Kevin Chakraborty and vulva biopsy and consists of a single fragment of dark ramirez skin and underlying subcutaneous tissue that measures 0.3 x 0.2 x 0.7 cm. The specimen is entirely submitted in A1. OJL/LKP 12.11.2012 09:03 am Microscopic: Received are slides labeled [id number], Kevin Chakraborty. Sections of right posterior labia majora identify hyperkeratosis and parakeratosis, acanthosis, and spongiosis. Lymphocyte exocytosis is noted. There is superficial dermal edema and fibrosis that is associated with perivascular and interstitial infiltrates of chronic inflammatory cells. There is pigmentary incontinence. A PAS stain for fungus was performed and is interpreted as negative. An eczematous process is a consideration. Changes of lichen sclerosus are not present. PJC/PJS 12.12.2012 11:44 am Staging Form: No ELECTRONIC SIGNATURE FOR SUSHIL MCGRAW M.D.- 12/12/12 04:47 pm Assessment and Plan: Kevin was seen today for results and pain management. Diagnoses and associated orders for this visit: Vulvar dermatitis - clobetasol (TEMOVATE) 0.05 % Topical Oint; Apply to affected area 2 times daily. - methylPREDNISolone (MEDROL DOSPACK) 4 mg Oral DsPk; For use as directed - treatment and taper. 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 Pt will convert to clobetasol 0.05% ointment to repeat bid topically to vulva for another 6 weeks. She will decide on supplementing with a medrol dose pack after discussion with her insole rounder and management of potential effect on blood sugars accordingly. The patient has been counseled on the administration, benefits, risks, potential effects and alternatives to treatment. Questions have been answered and the patient requests to proceed with treatment. RTO in 6 weeks if symptoms unimproved with management. ASSEMBLER WOOD documented in this encounter Plan of Treatment Upcoming Encounters Date Type Department Care Team (Late st Contact Info) Description 02/12/2025 1:00 PM CDT Office Visit [facility] Oncology and Hematology - [place] [address] [facility] [address] [place] [address] Aaron Smith MD [address] [facility] [address] [place] [address] 03/29/2025 12:30 PM CDT Appointment [facility] [place] [address] [place] [phone] [place] [address] [facility] [address] [place] [address] 03/29/2025 1:30 PM CDT Office Visit [facility] Breast Surgery [place] [address] [facility] [address] [place] [address] [place] [address] [facility] [address] [place] [address] documented as of this encounter Visit Diagnoses Diagnosis Vulvar dermatitis- Primary Other inflammatory disease of cervix, vagina and vulva Vaginal itching Pruritus of genital organs Chronic vulvitis Vaginitis and vulvovaginitis, unspecified S/P JEFF (total abdominal hysterectomy) Acquired absence of both cervix and uterus Diabetes mellitus Type II or unspecified type diabetes mellitus without mention of complication, not stated as uncontrolled 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
--- OUTSIDE RECORDS SUMMARY | 2024-10-23 02:20 | XMS_ITS | Encounter Summary ---
Author Organization [facility] Address 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, estrogen receptor positive Procedures [place] [address] [address] Referral ID Status Reason Start Date Expiration Date Visits Re quested Visits Authorized [id number] Closed 01/10/2021 02/10/2021 1 1 Reason for Visit * MRI (Routine) - Closed Specialty Diagnoses / Procedures Referred By Contac t Referred To Contact Diagnoses Malignant neoplasm of areola of left breast in female, estrogen receptor positive Procedures [place] [address] [address] Referral ID Status Reason Start Date Expiration Date Visits Re quested Visits Authorized [id number] Closed 01/10/2021 02/10/2021 1 1 Encounter Details Date Type Department Care Team (Latest Contact Info) Description 01/14/2021 2:15 PM CDT - 01/14/2021 11:59 PM CDT [facility] [address] [place] [address] [place] [address] [address] [facility] [address] [place] [address] Discharge Disposition: Home or Self Care [...] have Coronavirus / COVID-19? No / Unsure 01/14/2021 2:09 PM CDT documented as of this encounter [...] Center Oncology and Hematology - [place] [address] [facility] [address] [place] [address] Aaron Smith MD [address] [facility] [address] [place] [address] 03/29/2025 12:30 PM CDT Appointment [facility] [place] [address] [address] [place] [address] [address] [address] 03/29/2025 1:30 PM CDT Office Visit [facility] Breast Surgery [place] [address] [address] [address] [place] [address] [address] [address] documented as of this encounter Procedures Procedure Name Priority Date/Time Associated Diagnosis Comments MRI BREAST DIAGNOSTIC WWO CONTRAST BILATERAL Routine 01/14/2021 3:50 PM CDT Malignant neoplasm of areola of left breast in female, estrogen receptor positive documented in this encounter Results * (ABNORMAL) MRI BREAST W WO CONT BILAT (01/14/2021 3:50 PM CDT) Anatomical Region Laterality Modality Breast Bilateral Magnetic Resonan ce 01/14/2021 3:50 PM CDT Addenda Addendum by Derek Ponce MD on 05/20/2021 3:08 PM CDT ADDENDUM: This is to correct an error within the findings section. This study was reviewed at the time of an ultrasound for response to therapy and an error was noticed in the findings section. Within the section for the left breast it should state that the anterior medial left breast mass is located at the 9:00 position not the 3:00 position. The impression, assessment and recommendations remain unchanged. Impressions 01/14/2021 4:55 PM CDT IMPRESSION: 1. Biopsy-proven malignancy within the medial left breast. There are two additional suspected satellite nodules posterior to this with the total abnormal area of enhancement extending over a distance of approximately 6 cm. Additionally the dominant mass extends towards the dermis although there is no enhancement within the dermis itself. In addition this is an close proximity to the base of the nipple. 2. Enlarged intramammary lymph nodes in the upper outer left breast. 3. No pathologically enlarged axillary lymph nodes. 4. The contralateral right breast is unremarkable. OVERALL FINAL ASSESSMENT: ??BI-RADS CATEGORY 4: Suspicious Findings RECOMMENDATION: 1. Recommend second look ultrasound of the left breast for further evaluation of the two suspected satellite nodules posterior to the biopsy-proven malignancy and for further evaluation of the intramammary lymph nodes within the upper outer left breast. If breast conservation therapy is being considered then recommend biopsy of at least one of the inframammary lymph nodes and one or both of the satellite nodules. Narrative 01/14/2021 4:55 PM CDT BILATERAL BREAST MRI WITH AND WITHOUT IV CONTRAST WITH CAD DATE: 01/14/2021 3:50 PM DICTATION LOCATION: ??[place] HISTORY: Malignant neoplasm of areola of left breast in female, estrogen receptor positive. TECHNIQUE: Bilateral multisequence dynamic breast MRI was performed before and after intravenous gadolinium contrast. Images are acquired on dedicated breast coil system. CONTRAST: GADOBENATE DIMEGLUMINE 529 MG/ML(0.1 MMOL/0.2 ML) INTRAVENOUS SOLUTION. ??Given: 20 mL. COMPARISON: None. FINDINGS: Background enhancement: Mild symmetric background enhancement. RIGHT BREAST: No concerning enhancing masses identified that stand out above background parenchymal enhancement. The nipple and periareolar structures are unremarkable. No pathologically enlarged lymph nodes are identified. LEFT BREAST: There is an irregular enhancing mass with restricted diffusion and predominantly washout-type kinetics within the anterior medial left breast at the 3:00 position. This mass contains a biopsy site marker centrally. It measures 2.5 cm in craniocaudal dimension by 2.1 cm in transverse dimension by 1.5 cm in AP dimension. Posterior to the mass within the medial breast there are two additional nodules with predominantly washout-type kinetics. The first measures 8 mm and is best seen on image 634. The more posterior measures 5 mm and appears to contain a fatty hilum. The more proximal nodule is located 2.2 cm from the dominant mass and the more posterior is located 4.9 cm with the total abnormal area extending over a distance of 6.3 cm. This mass is located approximately 1.6 cm from the base of nipple. This mass extends towards the dermal layer with no abnormal enhancement within the dermis. There is approximately 1 mm distance between this mass and the dermis. In addition to the masses within the medial breast there are two enlarged lymph nodes within the upper outer aspect of the breast the largest of which measures 2.5 cm and is located approximately 11 cm from the nipple. An additional lymph node with a nodular cortex is identified superior and posterior to this with the nodular component of the lymph node measuring up to 1.7 cm. These are best identified on image 403 and 414 respectively. There are no abnormal lymph nodes within the axilla. Procedure Note Derek Ponce MD - 01/14/2021 BILATERAL BREAST MRI WITH AND WITHOUT IV CONTRAST WITH CAD DATE: 01/14/2021 3:50 PM DICTATION LOCATION: [place] HISTORY: Malignant neoplasm of areola of left breast in female, estrogen receptor positive. TECHNIQUE: Bilateral multisequence dynamic breast MRI was performed before and after intravenous gadolinium contrast. Images are acquired on dedicated breast coil system. CONTRAST: GADOBENATE DIMEGLUMINE 529 MG/ML(0.1 MMOL/0.2 ML) INTRAVENOUS SOLUTION. Given: 20 mL. COMPARISON: None. FINDINGS: Background enhancement: Mild symmetric background enhancement. RIGHT BREAST: No concerning enhancing masses identified that stand out above background parenchymal enhancement. The nipple and periareolar structures are unremarkable. No pathologically enlarged lymph nodes are identified. LEFT BREAST: There is an irregular enhancing mass with restricted diffusion and predominantly washout-type kinetics within the anterior medial left breast at the 3:00 position. This mass contains a biopsy site marker centrally. It measures 2.5 cm in craniocaudal dimension by 2.1 cm in transverse dimension by 1.5 cm in AP dimension. Posterior to the mass within the medial breast there are two additional nodules with predominantly washout-type kinetics. The first measures 8 mm and is best seen on image 634. The more posterior measures 5 mm and appears to contain a fatty hilum. The more proximal nodule is located 2.2 cm from the dominant mass and the more posterior is located 4.9 cm with the total abnormal area extending over a distance of 6.3 cm. This mass is located approximately 1.6 cm from the base of nipple. This mass extends towards the dermal layer with no abnormal enhancement within the dermis. There is approximately 1 mm distance between this mass and the dermis. In addition to the masses within the medial breast there are two enlarged lymph nodes within the upper outer aspect of the breast the largest of which measures 2.5 cm and is located approximately 11 cm from the nipple. An additional lymph node with a nodular cortex is identified superior and posterior to this with the nodular component of the lymph node measuring up to 1.7 cm. These are best identified on image 403 and 414 respectively. There are no abnormal lymph nodes within the axilla. IMPRESSION: 1. Biopsy-proven malignancy within the medial left breast. There are two additional suspected satellite nodules posterior to this with the total abnormal area of enhancement extending over a distance of approximately 6 cm. Additionally the dominant mass extends towards the dermis although there is no enhancement within the dermis itself. In addition this is an close proximity to the base of the nipple. 2. Enlarged intramammary lymph nodes in the upper outer left breast. 3. No pathologically enlarged axillary lymph nodes. 4. The contralateral right breast is unremarkable. OVERALL FINAL ASSESSMENT: BI-RADS CATEGORY 4: Suspicious Findings RECOMMENDATION: 1. Recommend second look ultrasound of the left breast for further evaluation of the two suspected satellite nodules posterior to the biopsy-proven malignancy and for further evaluation of the intramammary lymph nodes within the upper outer left breast. If breast conservation therapy is being considered then recommend biopsy of at least one of the inframammary lymph nodes and one or both of the satellite nodules. Chayo Zepeda MD MR ORDERABLES documented in this encounter Visit Diagnoses Diagnosis Malignant neoplasm of areola of left breast in female, estrogen receptor positive documented in this encounter Administered Medications Inactive Administered Medications - up to 3 most recent administrations Medication Order MAR Action Action Date Dose Rate Site gadobenate dimeglumine (MULTIHANCE) 529 mg/mL (0.1mmol/0.2mL) injection 20 mL 20 mL, IV, INTRA-PROCEDURE ONCE, 1 dose, Starting on Wed01/14/21 at 1521, Until Wed01/14/21 at 1522, Routine Contrast Given 01/14/2021 3:22 PM CDT 20 mL sodium chloride 0.9% infusion IV, at 50 mL/hr, CONTINUOUS, Starting on Tu01/14/21 at 1530, Until Wed01/15/21 at 0307, Routine New Bag 01/14/2021 3:30 PM CDT 50 mL/hr sodium chloride flush injection 10 mL 10 mL, IV, ONE TIME ONLY, 1 dose, On Wed01/14/21 at 1530, Routine Given 01/14/2021 3:30 PM CDT 10 mL documented in this encounter
--- OUTSIDE RECORDS SUMMARY | 2024-10-23 02:20 | XMS_ITS | Encounter Summary ---
Author Organization [facility] Address [address] [place] [address] Care Team Providers Care Electrician Journeyman Wireman Name Role Phone Polina Rajput MD Primary Care Provider Sabi cervantes Reason for Visit * Reason Onset Date Comments Question 11/17/2012 Regarding Result s Encounter Details Date Type Department Care Team (Late st Contact Info) Description 11/17/2012 Telephone [facility] OBGYN - [address] [address] Patricia Priest MD NO ADDRESS ON FILE Question (Regarding Results ) Social History Tobacco Use Types Packs/Day Years Used Date Smoking Tobacco: Never Assessed Alcohol Use Standard Drinks/Week Comments Yes 0 (1 standard drink = 0.6 oz pur e alcohol) 1/week Sex and Gender Information Value Date Recorded Sex Assigned at Not on file Gender Identity Not on file Sexual Orientation Not on file documented as of this encounter Miscellaneous Notes * Telephone Encounter - Luzma Keating - 11/28/2012 11:54 AM CST Patient scheduled appt for 12/09/2012 for vulva bx RS SUPERINTENDENT * Telephone Encounter - Lety Lewis - 11/17/2012 1:19 PM CST Pt would like to know what steps she should take for tx RS SUPERINTENDENT documented in this encounter Plan of Treatment Upcoming Encounters Date Type Department Care Team (Late st Contact Info) Description 02/12/2025 1:00 PM CDT Office Visit [facility] Oncology and Hematology - Levi [address] [facility] 200 [place] [address] Aaron Smith MD [address] [facility] [address] [place] [address] 03/29/2025 12:30 PM CDT Appointment [facility] [address] [place] [address] [place] [address] [facility] [address] [place] [address] 03/29/2025 1:30 PM CDT Office Visit [facility] [address] [address] [address] [facility] [address] [place] [address] [place] [address] [facility] [address] [place] [address] documented as of this encounter Visit Diagnoses Not on filedocumented in this encounter Care Teams Electrician Journeyman Wireman Relationship Specialty Start Date End Date Polina Rajput MD PCP - General Family Practice 06/08/12 10/27/15 documented as of this encounter
--- OUTSIDE RECORDS SUMMARY | 2024-10-23 02:20 | XMS_ITS | Encounter Summary ---
Author Organization [facility] Address [address] [facility] Becerra: Epic Prelude ADT [place] [address] Care Team Providers Care Timber Packer Name Role Phone Unavailable Primary Care Provider Unavailabl e Encounter Details Date Type Department Care Team (Latest Contact Info) Description 01/09/2021 Travel Social History Tobacco Use Types Packs/Day [...] have Coronavirus / COVID-19? No / Unsure 01/09/2021 2:28 PM CDT documented as of this encounter Plan of Treatment Upcoming Encounters Date Type Department Care Team (Late Contact Info) Description 02/12/2025 1:00 PM CDT Office Visit [facility] Oncology and Hematology - [place] [address] [place] [address] Aaron Smith MD [address] [facility] [address] [place] [address] 03/29/2025 12:[address] [facility] [address] [place] [address] [place] [address] [address] [facility] [address] [place] [address] 03/29/2025 1:30 PM CDT Office Visit [facility] Breast Surgery [place] [address] [address] [facility] [address] [place] [address] [place] [address] [address] [facility] [address] [place] [address] documented as of this encounter Visit Diagnoses Not on filedocumented in this encounter
--- OUTSIDE RECORDS SUMMARY | 2024-10-23 02:20 | XMS_ITS | Encounter Summary ---
Author Organization [facility] Address [address] [facility] [address] Becerra: Epic Prelude ADT [place] [address] Care Team Providers Care Director Cardiovascular Name Role Phone Unavailable Primary Care Provider Unavailabl e Encounter Details Date Type Department Care Team (Latest Contact Info) Description 01/10/2021 Travel Social History Tobacco Use Types Packs/Day [...] have Coronavirus / COVID-19? No / Unsure 01/10/2021 2:04 PM CDT documented as of this encounter Plan of Treatment Upcoming Encounters Date Type Department Care Team (Late Contact Info) Description 02/12/2025 1:00 PM CDT Office Visit [facility] Oncology and Hematology - [place] [address] [place] [address] Aaron Smith MD [address] [facility] [address] [place] [address] 03/29/2025 12:30 PM CDT Appointment [facility] [address] [place] [address] [place] [address] [address] [facility] [address] [place] [address] 03/29/2025 1:30 PM CDT Office Visit [facility] Breast Surgery [place] [address] [address] [facility] [address] [place] [address] [place] [address] [address] [facility] [address] [place] [address] documented as of this encounter Visit Diagnoses Not on filedocumented in this encounter
--- OUTSIDE RECORDS SUMMARY | 2024-10-23 02:20 | XMS_ITS | Encounter Summary ---
Author Organization [facility] Address [address] [place] [address] Care Team Providers Care Licensed Vocational Nurse Name Role Phone Polina Rajput MD Primary Care Provider Sabi cervantes Encounter Details Date Type Department Care Team (Late st Contact Info) Description 10/28/2012 Abstract [facility] [address] [address] Patricia Priest MD NO ADDRESS ON FILE Social History Tobacco [...] [facility] Center Oncology and Hematology - [place] [address] [place] [address] Aaron Smith MD [address] [facility] [address] [place] [address] 03/29/2025 12:30 PM CDT Appointment [facility] [address] [place] [address] [place] [address] [facility] [address] [place] [address] 03/29/2025 1:30 PM CDT Office Visit [facility] Breast Surgery [address] [address] [facility] [address] [place] [address] [place] [address] [address] [facility] [address] [place] [address] documented as of this encounter Visit Diagnoses Not on filedocumented in this encounter Care Teams Licensed Vocational Nurse Relationship Specialty Start Date End Date Polina Rajput MD PCP - General Family Practice 06/08/12 10/27/15 documented as of this encounter
--- OUTSIDE RECORDS SUMMARY | 2024-10-23 02:20 | XMS_ITS | Encounter Summary ---
Author Organization [facility] Address [address] [place] [address] Care Team Providers Care Cognos Bi Administrator Name Role Phone Unavailable Primary Care Provider Unavailabl e Encounter Details Date Type Department Care Team (Latest Contact Info) Description 12/18/2020 9:10 AM ABSTRACT WRITER - 12/18/2020 11:59 PM [facility] Hospital Encounter [facility] [address] [address] [facility], External Provider [address] [address] Discharge Disposition: Home or Self Care Social [...] testing frequency: 3 times a day 12/01/2020 LANCETS MISC Use as directed 12/01/2020 blood [...] Hematology - [place] [address] [facility] [address] [place] [address] Aaron Smith MD [address] [facility] [address] [place] [address] 03/29/2025 12:30 PM CDT Appointment [facility] [address] [place] [address] [place] [address] [address] [facility] [address] [place] [address] 03/29/2025 1:30 PM CDT Office Visit [facility] Breast Surgery [place] [address] [facility] [address] [place] [address] [place] [address] [facility] [address] [place] [address] documented as of this encounter Procedures Procedure Name Priority Date/Time Associated Diagnosis Comments MAMMO PRIOR STUDY Routine 12/18/2020 9:1 0 AM ABSTRACT WRITER Follow up documented in this encounter Results * MAMMO PRIOR STUDY (12/18/2020 9:10 AM ABSTRACT WRITER) Narrative 01/10/2021 9:08 AM CDT This exam was auto finalized to allow images to be scanned to PACS. External Provider [facility] DIAGNOSTIC IMAGI NG ORDERABLES documented in this encounter Visit Diagnoses Diagnosis Follow up documented in this encounter
--- OUTSIDE RECORDS SUMMARY | 2024-10-23 02:20 | XMS_ITS | Encounter Summary ---
Author Organization [facility] Address [address] [place] [address] Care Team Providers Care Data Keyer Name Role Phone Unavailable Primary Care Provider Unavailabl e Encounter Details Date Type Department Care Team (Latest Contact Info) Description 08/22/2020 9:10 AM CDT - 08/22/2020 11:59 PM CDT Hospital Encounter [facility] [address] [address] [facility], External Provider [address] [place] [address] Discharge Disposition: Home or Self Care Social [...] Sig Dispensed Refills Start Date End Date fluticasone propion-salmeteroL (ADVAIR DISKUS,WIXELA INHUB) 500-50 mcg/dose disk inhaler Take 1 Puff by inhalation 2 times daily. documented as of this encounter Plan of Treatment Upcoming Encounters Date Type Department Care Team (Late st Contact Info) Description 02/12/2025 1:00 PM CDT Office Visit [facility] Oncology and Hematology - [place] [address] [place] [address] Aaron Smith MD [address] [facility] [address] [place] [address] 03/29/2025 12:30 PM CDT Appointment [facility] [place] [address] [place] [address] [place] [address] [facility] 120 [place] [address] 03/29/2025 1:30 PM CDT Office Visit [facility] Breast Surgery [place] [address] [facility] [address] [place] [address] [place] [address] [facility] 120 [place] [address] documented as of this encounter Procedures Procedure Name Priority Date/Time Associated Diagnosis Comments MAMMO PRIOR STUDY Routine 08/22/2020 9:1 0 AM CDT Follow up documented in this encounter Results * MAMMO PRIOR STUDY (08/22/2020 9:10 AM CDT) Narrative 01/10/2021 9:08 AM CDT This exam was auto finalized to allow images to be scanned to PACS. External Provider [facility] DIAGNOSTIC IMAGI NG ORDERABLES documented in this encounter Visit Diagnoses Diagnosis Follow up documented in this encounter
--- OUTSIDE RECORDS SUMMARY | 2024-10-23 02:20 | XMS_ITS | Encounter Summary ---
Author Organization [facility] Address [address] [facility] [address] Becerra: Epic Prelude ADT [place] [address] Care Team Providers Care Health Plan Manager Name Role Phone Unavailable Primary Care Provider Unavailabl e Encounter Details Date Type Department Care Team (Latest Contact Info) Description 01/14/2021 Travel Social History Tobacco Use Types Packs/Day [...] [facility] Oncology and H[facility] - [place] [facility] [address] [place] [address] Aaron Smith MD [address] [facility] [address] [place] [address] 03/29/2025 12:[address] [facility] [address] [place] [address] [place] [address] [address] [facility] [address] [place] [address] 03/29/2025 1:30 PM CDT Office Visit [facility] Breast Surgery [place] [address] [facility] [address] [place] [address] [place] [address] [address] [facility] [address] [place] [address] documented as of this encounter Visit Diagnoses Not on filedocumented in this encounter
--- OUTSIDE RECORDS SUMMARY | 2024-10-23 02:20 | XMS_ITS | Encounter Summary ---
Author Organization [facility] Address [address] [facility] [address] Becerra: Epic Prelude ADT [place] [address] Care Team Providers Care Container Washer Name Role Phone Rosa Shi MD Primary Care Provider Encounter Details Date Type Department Care Team (Latest Contact Info) Description 01/15/2021 Travel Social History Tobacco Use Types Packs/Day [...] and Hematology - [place] [address] [facility] [address] [place] [address] Aaron Smith MD [address] [facility] [address] [place] [address] 03/29/2025 12:30 PM CDT Appointment [facility] [address] [place] [address] [place] [address] [facility] [address] [place] [address] 03/29/2025 1:30 PM CDT Office Visit [facility] Breast Surgery [address] [address] [facility] [address] [place] [address] [place] [address] [facility] [address] [place] [address] documented as of this encounter Visit Diagnoses Not on filedocumented in this encounter Care Teams Container Washer Relationship Specialty Start Date End Date Rosa Shi MD [address] [place] [address] PCP - General Family Practice 01/15/21 documented as of this encounter
--- OUTSIDE RECORDS SUMMARY | 2024-10-23 02:20 | XMS_ITS | Encounter Summary ---
Author Organization [facility] Address [address] [place] [address] Care Team Providers Care Multiple Punch Press Operator Name Role Phone Rosa Shi MD Primary Care Provider [phone] Reason for Visit * Reason Onset Date Comments discuss treatment plan 01/16/2021 Encounter Details Date Type Department Care Team (Late st Contact Info) Description 01/16/2021 Telephone [facility] Oncology and Hematology - Levi [facility] Kim Barney [address] [address] Monae Hurtado MD [facility] [place] [address] discuss treatment plan Social History Tobacco Use Types Packs/Day Years [...] encounter Miscellaneous Notes * Telephone Encounter - Monae Hurtado MD - 01/16/2021 3:09 PM CDT Called patient today after discussion with Dr. Zepeda. Explained plan will be to get biopsy of satellite tumors in the L breast which will serve as markers for pathologic response assessment post surgery. She will have a port placed by Dr. Zepeda and a baseline 2D echo, and we will plan to start neoadjuvant chemotherapy with TCHP soon after. She will be followed by Dr. Smith moving forward. Patient expressed understanding and is in agreement with this plan. Yesterday in clinic had been provided with patient information on TCHP regimen and side effects of treatment explained to her then as well. documented in this encounter Plan of Treatment Upcoming Encounters Date Type Department Care Team (Late st Contact Info) Description 02/12/2025 1:00 PM CDT Office Visit [facility] Oncology and Hematology [facility] [address] [place] [address] [facility] 200 [place] [address] Aaron Smith MD [address] [facility] [address] [place] [address] 03/29/2025 12:30 PM CDT Appointment [facility] [address] [address] [place] [address] [place] [address] [address] [address] 03/29/2025 1:30 PM CDT Office Visit [facility] Breast Surgery [place] [address] [facility] [address] [place] [address] [place] [address] [facility] [address] [place] [address] documented as of this encounter Visit Diagnoses Not on filedocumented in this encounter Care Teams Multiple Punch Press Operator Relationship Specialty Start Date End Date Rosa Shi MD [address] [place] [address] PCP - General Family Practice 01/15/21 documented as of this encounter
--- OUTSIDE RECORDS SUMMARY | 2024-10-23 02:20 | XMS_ITS | Encounter Summary ---
Author Organization [facility] Address [address] [place] [address] Care Team Providers Care It Desktop Support Technician Name Role Phone Rosa Shi MD Primary Care Provider [phone] Encounter Details Date Type Department Care Team (Late st Contact Info) Description 01/16/2021 Prep for Surgery [facility] [place] CLRKSN [address] [facility] [address] [place] [address] [place] [address] [place] [address] Malignant neoplasm of areola of [...] [place] Oncology and Hematology - [place] [address] [facility] 200 [place] [address] Aaron Smith MD [address] [facility] [address] [place] [address] 03/29/2025 12:30 PM CDT Appointment [facility] [address] [place] [address] [place] [address] [facility] 120 [place] [address] 03/29/2025 1:30 PM CDT Office Visit [facility] Breast Surgery [facility] [address] [facility] [address] [place] [address] [place] [address] [facility] 120 [place] [address] documented as of this encounter Visit Diagnoses Diagnosis 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
--- OUTSIDE RECORDS SUMMARY | 2024-10-23 02:20 | XMS_ITS | Encounter Summary ---
Author Organization [facility] Address [address] [place] [address] Care Team Providers Care Unix Administrator Name Role Phone Polina Rajput MD Primary Care Provider Sabi cervantes Reason for Visit * Reason Comments Follow Up vulva Encounter Details Date Type Department Care Team (Late st Contact Info) Description 10/26/2012 1:15 PM SEISMOGRAPH OPERATOR HELPER Office Visit [address] [address] Patricia Priest MD NO ADDRESS ON FILE Lichen sclerosus et atrophicus of the vulva (Primary Dx); Chronic vulvitis; Vulvar ulceration; S/P JEFF (total abdominal hysterectomy) Social History Tobacco Use Types Packs/Day Years [...] Sign Reading Time Taken Comments Blood Pressure 135/85 10/26/2012 12:55 PM SEISMOGRAPH OPERATOR HELPER Pulse 93 10/26/2012 12:55 PM SEISMOGRAPH OPERATOR HELPER Temperature - - Respiratory Rate - - Oxygen Saturation - - Inhaled Oxygen Concentration - - Weight 103.9 kg (229 lb) 10/26/2012 12:55 PM SEISMOGRAPH OPERATOR HELPER Height 154.9 cm (5' 1 ) 10/26/2012 12:55 PM SEISMOGRAPH OPERATOR HELPER Body Mass Index 43.27 10/26/2012 12:55 PM SEISMOGRAPH OPERATOR HELPER documented in this encounter Progress Notes * Patricia Priest MD - 10/26/2012 1:19 PM CST Pt here with chronic vulvar itching. She has not noticed a vulvar lesion or bleeding. She denies vaginal discharge or odor. She reports some bilateral groin discomfort but no masses there. She reports minor improvement in itching with 6 weeks bid treatment with clobetasol and vaginal symptoms resolved after Tindamax. She has vulvar itching that is so bad that she will scratch the vulva at work. She denies any vaginal discharge or itching today. Filed Vitals: 10/26/12 1255 BP: 135/85 Pulse: 93 Height: 5' 1 (1.549 m) Weight: 229 lb (103.874 kg) Abdomen: Soft, non-tender. Bowel sounds normal. No masses, no organomegaly. Vulva: No detectable inguinal lymphadenopathy or mass, ~3 mm right X 1 and left X 2 contralateral posterior vulvar ulcerations with surrounding mildly hypopigmented inflammatory change, baseline atrophy : normal Vagina: atrophic Cervix: absent Uterus: Surgically Absent Left Adnexa: Normal, Non tender Right Adnexa: Normal, Non tender Assessment and Plan: Rosa was seen today for follow up. Diagnoses and associated orders for this visit: Lichen sclerosus et atrophicus of the vulva Chronic vulvitis - conjugated estrogens (PREMARIN) 0.625 mg/gram Vaginal vaginal cream; Insert 2 Gram vaginally daily at bedtime. X 2 weeks then 1 gram per vagina twice per week for custodial management. Vulvar ulceration S/p jeff (total abdominal hysterectomy) Other Orders - Cancel: POC LISETTE,PREP - Cancel: POC VAGINAL WET PREP One Swab sent including assessment for vulvar ulceration. RTO in one month on a procedure day. If symptoms persistent with negative infectious work-up and persistent vulvar lesions will plan to repeat a vulvar biopsy and the technique, benefits and risks were reviewed with the pt. The pt will proceed with a trial of premarin intravaginal cream in the meantime. MOGRAPH OPERATOR HELPER documented in this encounter Plan of Treatment Upcoming Encounters Date Type Department Care Team (Late st Contact Info) Description 02/12/2025 1:00 PM CDT Office Visit [facility] Oncology and Hematology - Levi [address] [facility] 200 [place] [address] Aaron Smith MD [address] [facility] [address] [place] [address] 03/29/2025 12:30 PM CDT Appointment [facility] [address] [place] [address] [place] [address] [facility] 120 [place] [address] 03/29/2025 1:30 PM CDT Office Visit [facility] Breast Surgery [place] [address] [facility] [address] [place] [address] [place] [address] [facility] 120 [place] [address] documented as of this encounter Visit Diagnoses Diagnosis Lichen sclerosus et atrophicus of the vulva- Primary Circumscribed scleroderma Chronic vulvitis Vaginitis and vulvovaginitis, unspecified Vulvar ulceration Ulceration of vulva, unspecified S/P JEFF (total abdominal hysterectomy) Acquired absence of both cervix and uterus documented in this encounter Care Teams Unix Administrator Relationship Specialty Start Date End Date Polina Rajput MD PCP - General Family Practice 06/08/12 10/27/15 documented as of this encounter
--- OUTSIDE RECORDS SUMMARY | 2024-10-23 02:20 | XMS_ITS | Encounter Summary ---
Author Organization [facility] Address [address] [place] [address] Care Team Providers Care Country Singer Name Role Phone Polina Rajput MD Primary Care Provider U billy Reason for Visit * Reason Comments Well Woman Exam Encounter Details Date Type Department Care Team (Latest Contact Info) Description 06/08/2012 3:00 PM CDT Office Visit [address] [address] Patricia Priest MD NO ADDRESS ON FILE Breast screening, unspecified (Primary Dx); Well woman exam with routine gynecological exam; S/P YEHUDA (total abdominal hysterectomy); Essential hypertension, benign; Diabetes mellitus; Unspecified asthma; History of delivery; S/P tubal ligation; Lichen sclerosus et atrophicus of the vulva; Vaginal itching; Vaginal dryness; BV (bacterial vaginosis) Social History Tobacco Use Types Packs/Day Years [...] Sign Reading Time Taken Comments Blood Pressure 163/88 06/08/2012 3:28 PM CDT Pulse 80 06/08/2012 3:28 PM CDT Temperature - - Respiratory Rate - - Oxygen Saturation - - Inhaled Oxygen Concentration - - Weight 102.4 kg (225 lb 12.8 oz) 06/08/2012 3:22 PM CDT Height 154.9 cm (5' 1 ) 06/08/2012 3:22 PM CDT Body Mass Index 42.66 06/08/2012 3:22 PM CDT documented in this encounter Progress Notes * Patricia Priest MD - 06/08/2012 3:41 PM CDT SUBJECTIVE: 46 y.o. No LMP recorded. Patient has had a hysterectomy. For annual checkup. Additional concerns include: 2-3 months of severe and intolerable vulvar itching without vaginal discharge, hx of LS by vulvar bx 2006, some vaginal dryness with hot flashes and moodiness. STD cervical testing desired - no. STD serology testing desired - no. ROS: Feeling well. Denies headaches or ENT problems, difficulty swallowing, SOB or respiratory problems. No palpitations or chest pain. Abdominal pain, change in bowel habits, black or bloody stools or other GI problems: no. Urinary tract symptoms: no. Urinary incontinence: no Denies skin changes or edema. Weight stable. HAT BAND ATTACHER HX: Menarche @ 10 yo, Menses: hyst, Sexual history: is sexually active, 2 lifetime partners, Contraception: hysterectomy, Last Pap 2010 normal with negative HRHPV, hx of abnormal Pap - no , Hx of std - none, Hx of breast disease - no, Last Mammogram 2010 was normal, Other HAT BAND ATTACHER problems - YEHUDA, vulvar lichen sclerosis by biopsy 2006, Hx of domestic violence/assualt - no, Last Dexa Scan 2010 Adequate Bone Density OBJECTIVE: Well Developed, well nourished in NAD. BP 163/88 Pulse 80 Ht 5' 1 (1.549 m) Wt 225 lb 12.8 oz (102.422 kg) BMI 42.66 kg/m2 HEENT: normal. No lymphadenopathy or thyromegaly. Lungs: clear without wheezes. Heart: RRR, nl S1 S2, without murmur. Abdomen: soft, without tenderness, guarding, masses or hepatosplenomegaly. Back: No CVAT. Skin: No rashes or lesions, no edema. Neuro: WNL, alert, oriented. BREAST EXAM: normal appearance, no masses or tenderness. PELVIC EXAM: Ext/BUS: generalized atrophic appearance and bilateral posterior vulvar including labial thin parchment-appearing epithelium Vagina: normal mucosa, atrophic, thin frothy appearing vaginal discharge Cervix: absent Pap smear done today, Pap smear not performed (hyst with normal testing) Uterus: uterus absent Adnexa: Normal adnexa Rectal: deferred ASSESSMENT: Encounter Diagnoses Name Primary? Breast screening, unspecified Yes ??? Well woman exam with routine gynecological exam ??? S/P YEHUDA (total abdominal hysterectomy) ??? Essential hypertension, benign ??? Diabetes mellitus ??? Unspecified asthma ??? History of delivery ??? S/P tubal ligation ??? Lichen sclerosus et atrophicus of the vulva PLAN: Orders Placed This Encounter ??? fluticasone-salmeterol (ADVAIR DISKUS) 500-50 mcg/dose Inhalation DsDv ??? multivitamin (MULTIPLE VITAMIN) Oral tablet ??? Calcium-Magnesium Oral Tab ??? OTHER Annual mammography screen and monthly SBE. Calcium and vitamin D dietary intake and supplementation. Exercise at least 30 minutes 3 times per week. Pt evaluated and treated as above for recurrent vulvar lichen sclerosus, BV, and possible atrophic vaginitis. Will treat with Tindamax and 6 weeks of topical clobetasol bid then reassess. Is symptomsstill unresolved will consider One Swab, vaginal estrogen. If all medical options fail consider a repeat vulvar biopsy. Return visit in 1 year or prn. documented in this encounter Plan of Treatment Upcoming Encounters Date Type Department Care Team (Late st Contact Info) Description 02/12/2025 1:00 PM CDT Office Visit [facility] Oncology and Hematology - [place] [address] [facility] [address] [place] [address] Aaron Smith MD [address] [facility] [address] [place] [address] 03/29/2025 12:30 PM CDT Appointment [facility] [place] [address] [address] [place] [address] [address] [address] 03/29/2025 1:30 PM CDT Office Visit [facility] Breast Surgery [place] [address] [place] [address] [place] [address] [address] [facility] [address] [address] documented as of this encounter Procedures Procedure Name Priority Date/Time Associated Diagnosis Comments POC VAGINAL WET PREP Routine 06/08/2012 4:27 PM CDT Vaginal itching BV (bacterial vaginosis) POC LISETTE PREP (SKIN,HAIR,NAILS) Routine 06/08/2012 4:27 PM CDT Vaginal itching BV (bacterial vaginosis) documented in this encounter Results * (ABNORMAL) POC VAGINAL WET PREP (06/08/2012 4:27 PM CDT) WET WBCS 5-10 [facility] W[facility] RBCS none [facility] WET YEAST none [facility] WET TRICHOMONAS none [facility] WET CLUE CELLS 50% [facility] Vaginal Patricia Priest MD POINT OF CARE TE STING [facility] * (ABNORMAL) POC LISETTE,PREP (06/08/2012 4:27 PM CDT) LISETTE POC POS [facility] YEAST/FUNGAL ELEMENT, LISETTE POC none [facility] AMINE ODOR, LISETTE POC equivocal [facility] Specimen of unknown material (specimen) Patricia Priest MD POINT OF CARE TE STING [facility] documented in this encounter Visit Diagnoses Diagnosis Breast screening, unspecified- Primary Well woman exam with routine gynecological exam Routine gynecological examination S/P YEHUDA (total abdominal hysterectomy) Acquired absence of both cervix and uterus Essential hypertension, benign Diabetes mellitus Type II or unspecified type diabetes mellitus without mention of complication, not stated as uncontrolled Unspecified asthma(493.90) Unspecified asthma History of delivery Other postprocedural status S/P tubal ligation Tubal ligation status Lichen sclerosus et atrophicus of the vulva Circumscribed scleroderma Vaginal itching Pruritus of genital organs Vaginal dryness Other specified symptom associated with female genital organs BV (bacterial vaginosis) Vaginitis and vulvovaginitis, unspecified documented in this encounter Care Teams Country Singer Relationship Specialty Start Date End Date Polina Rajput MD PCP - General Family Practice 06/08/12 10/27/15 documented as of this encounter
--- OUTSIDE RECORDS SUMMARY | 2024-10-23 02:20 | XMS_ITS | Encounter Summary ---
Author Organization [facility] Address [address] [place] [address] Care Team Providers Care Mobile Product Manager Name Role Phone Unavailable Primary Care Provider Unavailabl e Encounter Details Date Type Department Care Team (Late Contact Info) Description 01/09/2021 Orders Only [facility] BREAST SURGERY - [place] C[facility]KS[facility] [address] [facility] [address] [place] [address] Provider, Abstract NO ADDRESS ON FILE Social [...] Hospital Oncology and Hematology - [place] [address] [facility] [address] [place] [address] Aaron Smith MD [address] [address] 03/29/2025 12:30 PM CDT Appointment [facility] [place] [address] [place] [phone] [place] [address] [address] [address] 03/29/2025 1:30 PM CDT Office Visit [facility] Breast Surgery [place] [address] [address] [place] [address] [address] [facility] [address] [address] documented as of this encounter Procedures Procedure Name Priority Date/Time Associated Diagnosis Comments MAMMO DIAG UNI LEFT 3D JESS W OR WO CAD Routine 12/23/2020 MAMMO BREAST US BIOPSY LEFT Routine 12/23/2020 MAMMO BREAST US LEFT LTD Routine 12/18/2020 MAMMO 3D JESS SCREEN BILAT W OR WO CAD Routine 08/22/2020 MAMMO 3D JESS SCREEN BILAT W OR WO CAD Routine 04/18/2019 MAMMO 3D JESS SCREEN BILAT W OR WO CAD Routine 04/09/2018 MAMMO 3D JESS SCREEN BILAT W OR WO CAD Routine 03/18/2017 documented in this encounter Results * MAMMO DIAG UNI LEFT 3D JESS W OR WO CAD (12/23/2020) Anatomical Region Laterality Modality Breast Left Other Abstract Provider MAMMO ORDERABLES * MAMMO BREAST US BIOPSY LEFT (12/23/2020) Anatomical Region Laterality Modality Breast Left Other Tissue SPECIMEN FROM BREAST / Unknown Abstract Provider MAMMO ORDERABLES * MAMMO BREAST US LEFT LTD (12/18/2020) Anatomical Region Laterality Modality Left Other Abstract Provider MAMMO ORDERABLES * MAMMO SCRN BILAT 3D JESS W OR WO CAD (08/22/2020) Anatomical Region Laterality Modality Breast Bilateral Other Abstract Provider MAMMO ORDERABLES * MAMMO SCRN BILAT 3D JESS W OR WO CAD (04/18/2019) Anatomical Region Laterality Modality Breast Bilateral Other Abstract Provider MAMMO ORDERABLES * MAMMO SCRN BILAT 3D JESS W OR WO CAD (04/09/2018) Anatomical Region Laterality Modality Breast Bilateral Other Abstract Provider MAMMO ORDERABLES * MAMMO SCRN BILAT 3D JESS W OR WO CAD (03/18/2017) Anatomical Region Laterality Modality Breast Bilateral Other Abstract Provider MAMMO ORDERABLES documented in this encounter Visit Diagnoses Not on filedocumented in this encounter
--- OUTSIDE RECORDS SUMMARY | 2024-10-23 02:20 | XMS_ITS | Encounter Summary ---
Author Organization [facility] Address [address] [place] [address] Care Team Providers Care Ingredient Handler Name Role Phone Polina Rajput MD Primary Care Provider Sabi cervantes Encounter Details Date Type Department Care Team (Latest Contact Info) Description 12/09/2012 7:00 PM VETERINARY EPIDEMIOLOGIST - 12/09/2012 11:59 PM [facility] Hospital Encounter [facility] Laboratory Support Services [facility] [address] [place] [address] Patricia Gallardo MD NO ADDRESS ON FILE Vulvar itching Discharge Disposition: Home or Self Care Social [...] Hospital Oncology and Hematology - [place] [address] [facility] [address] [place] [address] Aaron Smith MD [address] [facility] [address] [place] [address] 03/29/2025 12:30 PM CDT Appointment [facility] [address] [address] [place] [address] [place] [address] [facility] [address] [place] [address] 03/29/2025 1:30 PM CDT Office Visit [facility] Breast Surgery [place] [address] [facility] [address] [place] [address] [place] [address] [facility] [address] [place] [address] documented as of this encounter Procedures Procedure Name Priority Date/Time Associated Diagnosis Comments PATHOLOGY Routine 12/09/2012 5:00 PM VETERINARY EPIDEMIOLOGIST documented in this encounter Results * PATHOLOGY (12/09/2012 5:00 PM VETERINARY EPIDEMIOLOGIST) SURGICAL PATHOLOGY ?[facility] ?[address] ? [place], [place] ??[address] ? Patient: ??KEVIN CHAKRABORTY ? : ??1965 ? Procedure Date: ??12/09/2012 ? Accession Date: ??12/10/2012 ? Case No: ??[id number] ? Ordering Dr: ??PATRICIA GALLARDO ? Case type SW is performed by [facility], [address] [facility], ? [place], [place] ??[address]; all other case types are performed by [facility] ? [facility], [address] [place], [place] ??[address] ?SURGICAL PATHOLOGY & NON-GYNECOLOGIC CYTOPATHOLOGY REPORT ? DIAGNOSIS ? SKIN, RIGHT POSTERIOR LABIA MAJORA, PUNCH BIOPSY: ? - SUBACUTE SPONGIOTIC DERMATITIS. ? Specimen Description: ? Right posterior labia majora. ? Operative Procedure: ? Right vulvar Luckey punch biopsy. ? Patient Information/Histo ry/Diagnosis: ? Chronic vulvitis with vulvar itching; prior history of lichen sclerosis ? (failed steroid cream, Premarin cream); rule out infection and neoplasia. ? ICD code 698.1AK, vulvar itching; ICD code 701.0J, lichen sclerosis et ? atrophicus of the vulval; ICD code 616.1OQ, chronic vulvitis. ? Gross: ? The specimen is received in a container labeled Kevin Chakraborty and ? vulva biopsy and consists of a single fragment of dark ramirez skin and ? underlying subcutaneous tissue that measures 0.3 x 0.2 x 0.7 cm. The ? specimen is entirely submitted in A1. ? OJL/LKP 12.11.2012 09:03 am ? Microscopic: ? Received are slides labeled [id number], Kevin Chakraborty. ? Sections of right posterior labia majora identify hyperkeratosis and ? parakeratosis, acanthosis, and spongiosis. Lymphocyte exocytosis is noted. ? There is superficial dermal edema and fibrosis that is associated with ? perivascular and interstitial infiltrates of chronic inflammatory cells. ? There is pigmentary incontinence. A PAS stain for fungus was performed and ? is interpreted as negative. An eczematous process is a consideration. ? Changes of lichen sclerosus are not present. ? PJC/PJS 12.12.2012 11:44 am ? Staging Form: ? No ? ELECTRONIC SIGNATURE FOR SUSHIL MCGRAW M.D.- 12/12/12 04:47 pm [facility] 12/09/2012 5:00 PM VETERINARY EPIDEMIOLOGIST Patricia Gallardo MD PATHOLOGY/CYTOLO GY ORDERABLES [facility] [id number] [address] [place] [address] documented in this encounter Visit Diagnoses Not on filedocumented in this encounter Care Teams Ingredient Handler Relationship Specialty Start Date End Date Polina Rajput MD PCP - General Family Practice 06/08/12 10/27/15 documented as of this encounter
--- OUTSIDE RECORDS SUMMARY | 2024-10-23 02:20 | XMS_ITS | Encounter Summary ---
Author Organization [facility] Address [address] [place] [address] Care Team Providers Care Emc Storage Architect Name Role Phone Rosa Shi MD Primary Care Provider [phone] Reason for Visit * Reason Comments Establish Care Establish care for B reast Cancer Encounter Details Date Type Department Care Team (Late st Contact Info) Description 01/15/2021 3:00 PM CDT Office Visit [facility] Oncology and Hematology [place] [address] [address] [address] Monae Carpenter MD [address] [place] [address] Malignant neoplasm of areola of left breast [...] Sign Reading Time Taken Comments Blood Pressure 181/94 01/15/2021 2:17 PM CDT took 3 times all were high takes meds at night. Pulse 88 01/15/2021 2:17 PM CDT Temperature 36.6 ??C (97.9 ??F) 01/15/2021 2 :17 PM CDT Respiratory Rate - - Oxygen Saturation 97% 01/15/2021 2:1 7 PM CDT Inhaled Oxygen Concentration - - Weight 102.7 kg (226 lb 8 oz) 01/15/2021 2:17 PM CDT Height 157.5 cm (5' 2 ) 01/15/2021 2:17 PM CDT Body Mass Index 41.43 01/15/2021 2:17 PM CDT documented in this encounter Progress Notes * Monae Carpenter MD - 01/15/2021 4:29 PM CDT Hematology-oncology consult Note Requesting Physician: Chayo Zepeda Primary Care Physician Rosa Shi MD Problem list Patient Active Problem List Diagnosis Code ??? S/P YEHUDA (total abdominal hysterectomy) Z90.710 ??? Essential hypertension, benign I10 ??? Diabetes mellitus E11.9 ??? Unspecified asthma(493.90) J45.909 ??? History of delivery Z98.891 ??? S/P tubal ligation Z98.51 ??? Lichen sclerosus et atrophicus of the vulva N90.4 ??? Vulvar itching L29.2 ??? Chronic vulvitis N76.3 ??? Vulvar dermatitis L30.9 ??? Malignant neoplasm of left female breast C50.912 ? Reason for Visit Rosa Babb is a 55 y.o. AA female who was referred for consultation of a newly diagnosed multifocal Stage IA (cT1c cN0 Mx) triple positive L breast cancer, here for discussion of systemic therapy options. History of present illness Ms Babb is a 55 y.o -Micron[place] female with pmhx of HTN, DLP, asthma and DM2, referred byDr Chayo Zepeda for newly diagnosed early stage left breast cancer. She reports being in her usual state of health until a work exposure to COVID-19 in late October of this year. She subsequently developed Covid and pneumonia, was admitted to [facility] in November and a CT-chest was obtained that revealed an incidental finding of a left breast irregular mass. Additional breast imaging revealed an invasive ductal carcinoma, ER positive, HER-2 amplified by FISH. She was seen by Dr. Zepeda from breast surgery on 01/09/2021 who reviewed her diagnosis and discussed possible treatment plans with her. She was then referred for an MRI for further evaluation of her tumor and to medical oncology. She denies any associated symptoms, no nipple discharge. Can palpate the mass medial to her L areola. She is here today accompanied by her brother for initial evaluation and to discuss systemic therapy options. ?? Past Medical History Past Medical History: Diagnosis Date ??? Asthma ??? Depression ??? Diabetes mellitus ??? Endometriosis ??? Fibroids ??? High cholesterol ??? HTN (hypertension) Surgical History Past Surgical History: Procedure Laterality Date ??? HX SECTION ??? HX HYSTERECTOMY ??? 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 TONSILLECTOMY Medications Current Outpatient Medications Medication Sig Dispense Refill ??? metFORMIN (GLUCOPHAGE) 500 mg tablet Take 500 mg by mouth. ??? atorvastatin (LIPITOR) 20 mg tablet Take 20 mg by mouth. ??? amLODIPine (NORVASC) 5 mg tablet Take 5 mg by mouth. ??? blood-glucose meter (BLOOD GLUCOSE MONITOR KIT [facility]) Diagnosis: Diabetes type 2 Blood testing frequency: 3 times a day ??? turmeric root extract 500 mg Capsule Take by mouth. ??? cyanocobalamin (VITAMIN B-12) 500 mcg tablet Take 500 mcg by mouth. ??? ALBUTEROL INHALATION Take 1 Puff by inhalation Continuous as needed. ??? LANCETS [facility] Use as directed ??? blood sugar diagnostic [...] No current facility-administered medications for this visit. Facility-Administered Medications Ordered in Other Visits Medication Dose Route Frequency Provider Last Rate Last Admin ??? [DISCONTINUED] sodium chloride 0.9% infusion IV continuous Lety Gant, DO 50 mL/hr at 01/14/21 1530 New Bag at 01/14/21 1530 Allergies No Known Allergies Immunizations: There is no immunization history on file for this patient. Family History Mother had HSV-induced brain tumor and passed at the age of 74. No other family history of breast, ovarian or Airline Captain cancers. Family History Problem Relation Name Age of Onset ??? Stroke Father ??? Cancer Mother ??? Breast Cancer Paternal Cousin ??? Breast Cancer Paternal Cousin ??? Breast Cancer Paternal Cousin ??? Breast Cancer Paternal Cousin ??? Breast Cancer Paternal Cousin ??? Colon Cancer Neg Hx ??? Ovarian Cancer Neg Hx ??? Uterine Cancer Neg Hx ??? 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 Lives with her son. . Social History Tobacco Use ??? Smoking status: Never Smoker ??? Smokeless tobacco: Never Used Substance Use Topics ??? Alcohol use: Yes Comment: 1/week Airline Captain Hx 3, para 1. She was 9 at menarche and 30 at first live Review of Systems Constitutional: No fever; no night sweats; no anorexia; no weight loss; no fatique NEENT: No headache; no change in vision; no change in hearing; no sore throat; no dysphagia Respiratory: No shortness of breath; no pleuritic chest pain; no cough; no hemoptysis Cardiac: No cardiac-like chest pain; no palpitations; no orthopnea; no PND; no MONTESINOS Breasts: No tenderness; reports palpable mass medial to the L areola. GI: No abdominal pain; no nausea; no vomiting; no diarrhea; no hematochezia; no melena : No dysuria; no frequency; no hesitancy; no hematuria AEROTRIANGULATION SPECIALIST: Musculosketetal: no bone pain; no arthralgia; no joint swelling; no myalgia; Skin: no pruritis; no rash; no petechiae; no ecchymoses Endocrine: no polydipsia; no polyuria; no unusual weight gain Neuro: No headache; no change in vision; no sensory changes; no muscle weakness; no confusion; no seizures Psych: no anxiety; no depression; Physical Exam Vitals: Vitals: 01/15/21 1417 BP: (!) 181/94 Pulse: 88 Temp: 97.9 ??F (36.6 ??C) SpO2: 97% Patient has not taken her BP meds yet today, takes them at night as they cause drowsiness. Is asymptomatic. Constitutional: Well developed, well nourished, no acute distress, non-toxic appearance Teeth and gum. No signs of infection or swelling. Eyes: PERRL, conjunctiva normal HEENT: Atraumatic, external ears normal, nose normal, oropharynx moist, no pharyngeal exudates. no sinus tenderness Neck- normal range of motion, no tenderness, supple Respiratory: No respiratory distress, normal breath sounds, no rales, no wheezing Breasts: Symmetric, No nipple discharge, ~2cm L mass palpable at 9 o'clock, medial to the areola. Non-tender. No axillary LAD. No skin abnormalities noted. Cardiovascular: Normal rate, normal rhythm, no murmurs, no gallops, no rubs GI: Soft, nondistended, normal bowel sounds, nontender, no splenomegaly, no hepatomegaly, no mass, no rebound, no guarding : No costovertebral angle tenderness Musculoskeletal: No edema, no tenderness, no deformities. Back- no tenderness Integument: Well hydrated, no rash, Digits and nails inspection normal Lymphatic: No lymphadenopathy noted Neurologic: Alert & oriented x 3, CN 2-12 normal, normal motor function, normal sensory function, no focal deficits noted Psychiatric: Speech and behavior appropriate ? labs No results found for this or any previous visit (from the past 24 hour(s)). Pathology L breast biopsy of 9:00 o'clock areolar lesion on 12/23/2020: Invasive ductal carcinoma, grade 2 of 3 ER+ 80% SC+ 1-3% (weakly positive) HER-2 2+ by IHC and amplified by FISH ? Imaging & Other Studies Mammogram: 08/22/2020 ([place], [place]) - left breast UOQ posterior depth with mass measures 2.8 x 2.1 cm, stable. No mention of 9 o'clock tumor. Left breast ultrasound: 12/18/2020 ([place], [place]) - newly palpable left breast periareolar 9:00 irregular mass, measures 1.5 cm. BIRADs 4. BL Breast MRI 01/14/2021: IMPRESSION: 1. Biopsy-proven malignancy within the medial left breast. There are two additional suspected satellite nodules posterior to this with the total abnormal area of enhancement extending over a distanceof approximately 6 cm. Additionally the dominant mass [...] one or both of the satellite nodules. Performance Status: ECOG 0 Assessment / Plan: ASSESSMENT: Encounter Diagnosis Name Primary? Malignant neoplasm of areola of left breast in female, estrogen receptor positive Yes This is a 55 year-old AA female with a history of HTN, DLP, DM2 and asthma, with newly diagnosed??clinical stage IA (cT1c cN0 Mx) multifocal triple positive L breast cancer. We reviewed her MRI report in detail today, and discussed recommendation for further workup with biopsies of other foci and intramammary suspicious lymph nodes. Patient would prefer to forego furtherworkup in favor of starting treatment as soon as possible. We discussed her stage of disease as being highly curable, with cure rates > 90% with completionof therapy. We reviewed the role of neoadjuvant vs adjuvant chemotherapy in early stage HER-2 positive breast cancer. Although most trials looked at patients with T2 tumors or greater, and NCCN recommendations for neoadjuvant chemotherapy in this setting are reserved for patients with at least T2 disease, it is also common practice to offer neoadjuvant chemotherapy for T1 tumors, and in the case of multifocal disease would not be unreasonable. Due to early stage of her disease would prefer an anthracycline-spearing regimen such as TCH +/- P or even TH. Although her original tumor measured 1.5cm and recommendations for node negative tumors measuring <2cm usually favor TH alone, due to hermultifocal disease extending over 6cm, discussed logistics of the TCH +/- P regimen with her today,per the phase II TRYPHAENA study, with docetaxel, carboplatin and herceptin, +/- pertuzumab given every 3 weeks for 6 cycles (Benji Gupta et al. 2013). Also went over adjuvant therapy in this scenario, comprising of herceptin to complete one year of therapy and an aromatase inhibitor for 5 years.The patient would prefer to have a lumpectomy if possible, and we briefly discussed the role of adjuvant RT in this case. Due to MRI showing multifocal disease spanning 6 cm, will discuss with Dr. Zepeda if neoadjuvant vs adjuvant systemic therapy will provide best surgical outcomes, as the patient would prefer to havea lumpectomy if that is an option for her. PLAN: ? - Discuss case with Dr. Zepeda in light of new MRI findings of multifocal disease and if there is a preference for neoadjuvant chemotherapy in view of the patient's personal preference for lumpectomy. - If neoadjuvant chemotherapy is preferred for potentially superior outcomes and greater likelihoodof successful lumpectomy, will order port placement, 2D echo and likely plan to start chemotherapy with TCH +/- P in the next 2-[address] Smith. - No f/u appointment scheduled yet. Will call pt with plan after discussion with breast surgery. TOBACCO COUNSELING She is not a tobacco user. Monae Carpenter MD ,01/15/2021 4:50 PM ? Total time spent 80 minutes, two third of the total time spent counseling patient [id number]. CC:? Spoke with Dr. Zepeda on 01/16/2021: Because of patient's borderline tumor size, multifocal disease and patient's desire for a lumpectomy, neoadjuvant chemotherapy with TCHP is preferred. In addition, Dr. Zepeda would like to biopsy the multifocal sites of disease to have a marker for evaluation post-operatively. If residual disease is seen on pathology, patient will receive TDM1 for 14 cycles instead of herceptin. Will discuss plan with patient today. Ordered 2D echo in preparation for treatment. Dr. Zepeda to place a port. - As this patient will need to start therapy urgently, would recommend foregoing 2nd pathology readat [facility] in [facility] in favor of placing port LARRY and starting neoadjuvant chemotherapy. documented in this encounter Miscellaneous Notes * Addendum Note - Monae Carpenter MD - 01/16/2021 12:10 PM CDTAddended by: MONAE CARPENTER on: 01/16/2021 12:10 PM Modules accepted: Orders documented in this encounter Plan of Treatment Upcoming Encounters Date Type Department Care Team (Late st Contact Info) Description 02/12/2025 1:00 PM CDT Office Visit [facility] Oncology and Hematology [facility] [address] [place] [address] [address] [place] [address] Aaron Smith MD [address] [facility] [address] [place] [address] 03/29/2025 12:[address] [facility] [place] [address] [place] [address] [place] [address] [address] 03/29/2025 1:30 PM CDT Office Visit [facility] Breast Surgery [place] [address] [facility] [address] [place] [address] [place] [address] [facility] [address] [place] [address] documented as of this encounter Visit Diagnoses Diagnosis Malignant neoplasm of areola of left breast in female, estrogen receptor positive- Primary documented in this encounter Care Teams Emc Storage Architect Relationship Specialty Start Date End Date Rosa Shi MD [address] [place] [address] PCP - General Family Practice 01/15/21 documented as of this encounter
--- OUTSIDE RECORDS SUMMARY | 2024-10-23 02:20 | XMS_ITS | Encounter Summary ---
Author Organization [facility] Address [address] [place] [address] Care Team Providers Care Field Account Manager Name Role Phone Polina Rajput MD Primary Care Provider + Encounter Details Date Type Department Care Team (Latest Contact Info) Description 04/09/2018 8:55 AM CDT - 04/09/2018 11:59 PM T Hospital Encounter [facility] [place] [address] [place] [address] [facility], External Provider [address] [place] [address] Discharge Disposition: Home or Self Care Social [...] - [place] [address] [facility] [address] [place] [phone] Aaron Smith MD [address] [facility] [address] [place] [address] 03/29/2025 12:30 PM CDT [facility] [address] [place] [address] [place] [address] [facility] [address] [place] [address] 03/29/2025 1:30 PM CDT Office Visit [facility] Breast Surgery [place] [address] [facility] [address] [place] [address] [place] [address] [facility] [address] [place] [address] documented as of this encounter Procedures Procedure Name Priority Date/Time Associated Diagnosis Comments MAMMO PRIOR STUDY Routine 04/09/2018 8:5 5 AM CDT Follow up documented in this encounter Results * MAMMO PRIOR STUDY (04/09/2018 8:55 AM CDT) Narrative 01/10/2021 8:51 AM CDT This exam was auto finalized to allow images to be scanned to PACS. External Provider [facility] DIAGNOSTIC IMAGI NG ORDERABLES documented in this encounter Visit Diagnoses Diagnosis Follow up documented in this encounter Care Teams Field Account Manager Relationship Specialty Start Date End Date Polina Rajput MD PCP - General 10/28/15 07/06/19 documented as of this encounter
--- OUTSIDE RECORDS SUMMARY | 2024-10-23 02:20 | XMS_ITS | Encounter Summary ---
Author Organization [facility] Address [address] [place] [address] Care Team Providers Care Food Technologist Name Role Phone Polina Rajput MD Primary Care Provider + Encounter Details Date Type Department Care Team (Latest Contact Info) Description 03/18/2017 8:55 AM CDT - 03/18/2017 11:59 PM T Hospital Encounter [facility] [place] [address] [place] [address] [facility], External Provider [address] [place] [address] Discharge Disposition: Home or Self Care Social [...] CDT Office Visit [facility] Oncology and Hematology - [place] [address] [facility] [address] [place] [address] Aaron Smith MD [address] [facility] [address] [place] [address] 03/29/2025 12:30 PM CDT [facility] [address] [facility] [place] [address] [place] [address] [facility] [address] [place] [address] 03/29/2025 1:30 PM CDT Office Visit [facility] Breast Surgery [place] [address] [facility] [address] [place] [address] [place] [address] [facility] [address] [place] [address] documented as of this encounter Procedures Procedure Name Priority Date/Time Associated Diagnosis Comments MAMMO PRIOR STUDY Routine 03/18/2017 8:5 5 AM CDT Follow up documented in this encounter Results * MAMMO PRIOR STUDY (03/18/2017 8:55 AM CDT) Narrative 01/10/2021 8:51 AM CDT This exam was auto finalized to allow images to be scanned to PACS. External Provider [facility] DIAGNOSTIC IMAGI NG ORDERABLES documented in this encounter Visit Diagnoses Diagnosis Follow up documented in this encounter Care Teams Food Technologist Relationship Specialty Start Date End Date Polina Rajput MD PCP - General 10/28/15 07/06/19 documented as of this encounter
--- OUTSIDE RECORDS SUMMARY | 2024-10-23 02:20 | XMS_ITS | Encounter Summary ---
Author Organization [facility] Address [address] [place] [address] Care Team Providers Care Process Cheese Cooker Name Role Phone Unavailable Primary Care Provider Unavailabl e Encounter Details Date Type Department Care Team (Latest Contact Info) Description 01/14/2021 3:25 PM CDT - 01/14/2021 11:59 PM CDT Hospital Encounter [facility] Imaging Services [place] [address] [place] [address] [place] [address] [address] [place] [address] Discharge Disposition: Home or Self Care Social [...] Puff by inhalation Continuous as needed. LANCETS [facility] Use as directed 12/01/2020 blood sugar diagnostic [...] [facility] Oncology and Hematology - [place] [address] [facility] [address] [place] [address] Aaron Smith MD [address] [facility] [address] [place] [address] 03/29/2025 12:30 PM CDT Appointment [facility] [place] [address] [place] [address] [place] [address] [address] 03/29/2025 1:30 PM CDT Office Visit [facility] Breast Surgery [place] [address] [facility] [address] [place] [address] [place] [address] [facility] [address] [place] [address] documented as of this encounter Procedures Procedure Name Priority Date/Time Associated Diagnosis Comments XR CHEST PA AND LATERAL 2 VW Routine 01/14/2021 3:33 PM CDT Malignant neoplasm of areola of left breast in female, estrogen receptor positive documented in this encounter Results * XR CHEST PA AND LATERAL 2 VW (01/14/2021 3:33 PM CDT) Anatomical Region Laterality Modality Chest Computed Radiogr aphy 01/14/2021 3:34 PM CDT Impressions 01/14/2021 4:20 PM CDT IMPRESSION: No acute airspace opacity seen DICTATION LOCATION: Location 1 [facility] Narrative 01/14/2021 4:20 PM CDT XR CHEST PA AND LATERAL 2 VW DATE: 01/14/2021 3:33 PM HISTORY: See Diagnosis. ?? Malignant neoplasm of areola of left breast in female, estrogen receptor positive; Malignant neoplasm of areola of left breast in female, estrogen receptor positive COMPARISON: None. FINDINGS: Scarring/atelectasis in the left lower lobe. No acute airspace opacity seen. No pleural effusion or pneumothorax. Cardia mediastinal silhouette is normal INCIDENTAL FINDINGS: ??None. Procedure Note Cris Alexis MD - 01/14/2021 XR CHEST PA AND LATERAL 2 VW DATE: 01/14/2021 3:33 PM HISTORY: See Diagnosis. Malignant neoplasm of areola of left breast in female, estrogen receptor positive; Malignant neoplasm of areola of left breast in female, estrogen receptor positive COMPARISON: None. FINDINGS: Scarring/atelectasis in the left lower lobe. No acute airspace opacity seen. No pleural effusion or pneumothorax. Cardia mediastinal silhouette is normal INCIDENTAL FINDINGS: None. IMPRESSION: No acute airspace opacity seen DICTATION LOCATION: Location 1 - [facility] Chayo Zepeda MD DIAGNOSTIC IMAGI NG ORDERABLES documented in this encounter Visit Diagnoses Diagnosis Malignant neoplasm of areola of left breast in female, estrogen receptor positive documented in this encounter
--- OUTSIDE RECORDS SUMMARY | 2024-10-23 02:20 | XMS_ITS | Encounter Summary ---
Author Organization [facility] Address [address] [place] [address] Care Team Providers Care Concrete Curer Name Role Phone Rosa Shi MD Primary Care Provider [phone] Encounter Details Date Type Department Care Team (Late st Contact Info) Description 01/15/2021 Orders Only [facility] BREAST SURGERY - [place] [facility] [address] [facility] [address] [place] [address] Rosa Shi MD [address] [place] [address] Social History Tobacco Use Types Packs/Day Years [...] Center Oncology and Hematology - [place] [address] [facility] [address] [place] [address] Aaron Smith MD [address] [facility] [address] [place] [address] 03/29/2025 12:30 PM CDT [facility] [address] [place] [address] [place] [address] [facility] [address] [place] [address] 03/29/2025 1:30 PM CDT Office Visit [facility] Breast Surgery [place] [address] [facility] [address] [place] [address] [place] [address] [facility] [address] [place] [address] documented as of this encounter Procedures Procedure Name Priority Date/Time Associated Diagnosis Comments 2019 NOVEL CORONAVIRUS (COVI D-19) PCR DETECTION Routine 11/22/2020 documented in this encounter Results * 2019 NOVEL CORONAVIRUS (COVID-19) PCR DETECTION (11/22/2020) Upper Respiratory Rosa Shi MD MICROBIOLOGY - [facility] AL ORDERABLES [facility] documented in this encounter Visit Diagnoses Not on filedocumented in this encounter Care Teams Concrete Curer Relationship Specialty Start Date End Date Rosa Shi MD [address] [place] [address] PCP - General Family Practice 01/15/21 documented as of this encounter
--- OUTSIDE RECORDS SUMMARY | 2024-10-23 02:20 | XMS_ITS | Encounter Summary ---
Author Organization [facility] Address [address] [place] [address] Care Team Providers Care Desktop Specialist Name Role Phone Polina Rajput MD Primary Care Provider Sabi cervantes Reason for Visit * Reason Onset Date Comments Results 11/16/2012 Encounter Details Date Type Department Care Team (Late st Contact Info) Description 11/16/2012 Telephone [facility] OBGYN - [address] [address] Patricia Priest MD NO ADDRESS ON FILE Results Social History Tobacco Use Types Packs/Day [...] encounter Miscellaneous Notes * Telephone Encounter - Patricia Priest MD - 11/16/2012 5:15 PM CST Called pt to confirm and MLOR (cell) no infectious genital ulcerative disease on One Swab. If thereis a persistent vulvar ulcer or lesion plan for a repeat vulvar biopsy on a Wednesday AM in the office. If recurrent vaginal discharge with itching will proceed with trial of bactrim DS (some strep & staph on One Swab) and pt was informed this could be skin contaminant. CARE LIAISON documented in this encounter Plan of Treatment Upcoming Encounters Date Type Department Care Team (Late st Contact Info) Description 02/12/2025 1:00 PM CDT [facility] Oncology and Hematology - [place] [address] [facility] [address] [place] [address] Aaron Smith MD [address] [facility] [address] [place] [address] 03/29/2025 12:[address] [facility] [address] [place] [address] [place] [address] [facility] [address] [place] [address] 03/29/2025 1:30 PM CDT Office Visit [facility] Breast Surgery [address] [address] [facility] [address] [place] [address] [place] [address] [facility] [address] [place] [address] documented as of this encounter Visit Diagnoses Diagnosis Vulvitis- Primary Vaginitis and vulvovaginitis, unspecified documented in this encounter Care Teams Desktop Specialist Relationship Specialty Start Date End Date Polina Rajput MD PCP - General Family Practice 06/08/12 10/27/15 documented as of this encounter
--- OUTSIDE RECORDS SUMMARY | 2024-10-23 02:20 | XMS_ITS | Encounter Summary ---
Author Organization [facility] Address [address] [place] [address] Care Team Providers Care Stretch Press Operator Name Role Phone Unavailable Primary Care Provider Unavailabl e Encounter Details Date Type Department Care Team (Late Contact Info) Description 12/31/2020 Orders Only [facility] - [place] C[facility]KS[facility] [address] [facility] [address] [place] [address] Provider, Abstract NO ADDRESS ON [...] have Coronavirus / COVID-19? Unable to assess 12/31/2020 10:09 AM SENIOR DATABASE ENGINEER documented as of this encounter Plan of Treatment Upcoming Encounters Date Type Department Care Team (Late Contact Info) Description 02/12/2025 1:00 PM CDT [facility]ology - [place] [address] [facility] [address] [place] [address] Aaron Smith MD [address] [facility] [address] [place] [address] 03/29/2025 12:30 PM CDT Appointment [facility] [address] [place] [address] [place] [address] [facility] [address] [place] [address] 03/29/2025 1:30 PM CDT Office Visit [facility] Breast Surgery [address] [address] [address] [address] [facility] [address] [place] [address] [place] [address] [facility] [address] [place] [address] documented as of this encounter Procedures Procedure Name Priority Date/Time Associated Diagnosis Comments PATHOLOGY Routine 12/25/2020 documented in this encounter Results * PATHOLOGY (12/25/2020) Tissue Abstract Provider PATHOLOGY/CYTOLOGY O RDERABLES [facility] documented in this encounter Visit Diagnoses Not on filedocumented in this encounter
--- OUTSIDE RECORDS SUMMARY | 2024-10-23 02:20 | XMS_ITS | Encounter Summary ---
Author Organization [facility] Address [address] [place] [address] Care Team Providers Care Cleaning Attendant Name Role Phone Polina Rajput MD Primary Care Provider Sabi cervantes Reason for Visit * Reason Comments Biopsy vulva Encounter Details Date Type Department Care Team (Latest Contact Info) Description 12/09/2012 10:30 AM CORRUGATED BOX 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 Procedure visit [address] [address] Patricia Priest MD NO ADDRESS ON FILE Vulvar itching; Lichen sclerosus et atrophicus of the vulva; Chronic vulvitis; Vaginal itching Social History Tobacco Use Types Packs/Day Years [...] Sign Reading Time Taken Comments Blood Pressure 122/75 12/09/2012 10:23 AM CORRUGATED BOX 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 Pulse 82 12/09/2012 10:23 AM CORRUGATED BOX 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 Temperature - - Respiratory Rate - - Oxygen Saturation - - Inhaled Oxygen Concentration - - Weight 103.8 kg (228 lb 12.8 oz) 2012 10:23 AM CORRUGATED BOX 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 Height 157.5 cm (5' 2 ) 12/09/2012 10:2 3 AM CORRUGATED BOX 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 Body Mass Index 41.85 12/09/2012 10:23 AM CORRUGATED BOX 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 documented in this encounter Progress Notes * Patricia Priest MD - 12/09/2012 10:51 AM CST See office procedure note for vulvar biopsy. UGATED BOX 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 documented in this encounter Procedure Notes * Patricia Priest MD - 12/09/2012 11:26 AM CSTAssociated Order(s): BIOPSY VULVA Procedure(s): IA BIOPSY VULVA/PERINEUM 1 LESION SPX Pre-Procedure Diagnose(s): Lichen sclerosus et atrophicus of the vulva; Chronic vulvitis; Vaginal itching Post-Procedure Diagnose(s): Lichen sclerosus et atrophicus of the vulva; Chronic vulvitis; Vaginal itching PROCEDURE NOTE The patient presents for chronic vulvar itching (R>L) despite prior clobetasol and premarin treatment. She has no additional complaints. The patient was counseled regarding the indication, technique, anticipated perioperative course, benefits, risks, alternatives, and potential effects of the surgical procedure. The risks explained to the patient include bleeding or hemorrhage, infection, trauma to surrounding organs, scarring, allergic reaction; cardiopulmonary, thromboembolic and anesthetic complications. The patient's questions were answered. The patient was informed that incidental findings may be encountered during surgery which may affect or change the anticipated operative course. The patient states understanding regarding the above and requests to proceed with the surgical procedure. The operative consent has been signed. Pre-procedural diagnosis: 47 y.o. year old with hx of chronic vulvar itching/vulvitis, hx of lichen sclerosus, refractory to steroid and estrogen cream Post-procedural diagnosis: Same, S/P repeat right vulvar biopsy Procedure: right posterior [place] punch vulvar biopsy Instructor [employer]: Patricia Priest MD Prep: Betadine Analgesia: Subcutaneous 2 ml 1% lidocaine Findings: Hypopigmented (most consistent with chronically inflamed) ~ 3 cm plaques at the right andleft posterior labia majora, subjectively right most pruritic and was biopsied, no ulceration, no bleeding or necrotic tissue Specimens: right posterior vulvar biopsy EBL: minimal (<1 ml) Hemostasis: Present Complications: None Condition: Stable, tolerated well. Advised the patient on pelvic rest for 1 week. She was counseled on vaginal bleeding, pain and infectious precautions. She was advised to take tylenol and NSAID prn cramps or pain. May use ice topically for 24 hours and sitz baths otherwise. Return to the office in 2 weeks for a postprocedural check, pathology results and management planning. If results non-diagnostic consider completing another burst of steroid cream or other treatment or second opinion with oncology prn. UGATED BOX 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 documented in this encounter Plan of Treatment Upcoming Encounters Date Type Department Care Team (Late st Contact Info) Description 02/12/2025 1:00 PM CDT Office Visit [facility] Oncology and Hematology [facility] [address] [facility] 200 [place] [address] Aaron Smith MD [address] [facility] [address] [place] [address] 03/29/2025 12:30 PM CDT Appointment [facility] [address] [place] [address] [place] [address] [facility] [address] [place] [address] 03/29/2025 1:30 PM CDT Office Visit [facility] Breast Surgery [place] [address] [facility] [address] [place] [address] [place] [address] [facility] [address] [place] [address] documented as of this encounter Procedures Procedure Name Priority Date/Time Associated Diagnosis Comments IA BIOPSY VULVA/PERINEUM 1 LESION SPX Routine 12/09/2012 11:36 AM CORRUGATED BOX 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 Lichen sclerosus et atrophicus of the vulva Chronic vulvitis Vaginal itching documented in this encounter Results * IA BIOPSY VULVA/PERINEUM 1 LESION SPX (12/09/2012 11:36 AM CORRUGATED BOX 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) Narrative [facility] - 12/09/2012 11:36 AM CORRUGATED BOX 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 Patricia Priest MD ? 12/09/2012 11:36 AM PROCEDURE NOTE The patient presents for chronic vulvar itching (R>L) despite prior clobetasol and premarin treatment. She has no additional complaints. The patient was counseled regarding the indication, technique, anticipated perioperative course, benefits, risks, alternatives, and potential effects of the surgical procedure. The risks explained to the patient include bleeding or hemorrhage, infection, trauma to surrounding organs, scarring, allergic reaction; cardiopulmonary, thromboembolic and anesthetic complications. The patient's questions were answered. The patient was informed that incidental findings may be encountered during surgery which may affect or change the anticipated operative course. The patient states understanding regarding the above and requests to proceed with the surgical procedure. The operative consent has been signed. Pre-procedural diagnosis: 47 y.o. year old with hx of chronic vulvar itching/vulvitis, hx of lichen sclerosus, refractory to steroid and estrogen cream Post-procedural diagnosis: Same, S/P repeat right vulvar biopsy Procedure: right posterior [place] punch vulvar biopsy Instructor [employer]: Patricia Priest MD Prep: Betadine Analgesia: ??Subcutaneous 2 ml 1% lidocaine Findings: ??Hypopigmented (most consistent with chronically inflamed) ~ 3 cm plaques at the right and left posterior labia majora, subjectively right most pruritic and was biopsied, no ulceration, no bleeding or necrotic tissue Specimens: right posterior vulvar biopsy EBL: minimal (<1 ml) Hemostasis: Present Complications: None Condition: Stable, tolerated well. Advised the patient on pelvic rest for 1 week. She was counseled on vaginal bleeding, pain and infectious precautions. She was advised to take tylenol and NSAID prn cramps or pain. ??May use ice topically for 24 hours and sitz baths otherwise. Return to the office in 2 weeks for a postprocedural check, pathology results and management planning. ??If results non-diagnostic consider completing another burst of steroid cream or other treatment or second opinion with oncology prn. Procedure Note Patricia Priest MD - 12/09/2012 11:26 AM CST PROCEDURE NOTE The patient presents for chronic vulvar itching (R>L) despite priorclobetasol and premarin treatment. She has no additional complaints. The patient was counseled regarding the indication, technique, anticipated perioperative course, benefits, risks, alternatives, and potential effects of the surgical procedure. The risks explained to the patient include bleeding or hemorrhage, infection, trauma to surrounding organs, scarring, allergic reaction; cardiopulmonary, thromboembolic and anesthetic complications. The patient's questions were answered. The patient was informed that incidental findings may be encountered during surgery which may affect or change the anticipated operative course. The patient states understanding regarding the above and requests to proceed with the surgical procedure. The operative consent has been signed. Pre-procedural diagnosis: 47 y.o. year old with hx of chronicvulvar itching/vulvitis, hx of lichen sclerosus, refractory to steroid andestrogen cream Post-procedural diagnosis: Same, S/P repeat right vulvar biopsy Procedure: right posterior [place] punch vulvar biopsy Instructor [employer]: Patricia Priest MD Prep: Betadine Analgesia: Subcutaneous 2 ml 1% lidocaine Findings: Hypopigmented (most consistent with chronically inflamed) ~ 3cm plaques at the right and left posterior labia majora, subjectivelyright most pruritic and was biopsied, no ulceration, no bleeding ornecrotic tissue Specimens: right posterior vulvar biopsy EBL: minimal (<1 ml) Hemostasis: Present Complications: None Condition: Stable, tolerated well. Advised the patient on pelvic rest for 1 week. She was counseled on vaginal bleeding, pain and infectious precautions. She was advised to take tylenol and NSAID prncramps or pain. May use ice topically for 24 hours and sitz bathsotherwise. Return to the office in 2 weeks for a postprocedural check, pathologyresults and management planning. If results non-diagnostic considercompleting another burst of steroid cream or other treatment or secondopinion with oncology prn. 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
--- OUTSIDE RECORDS SUMMARY | 2024-10-23 02:20 | XMS_ITS | Encounter Summary ---
Author Organization [facility] Address [address] [place] [address] Care Team Providers Care Runner Man Name Role Phone Unavailable Primary Care Provider Unavailabl e Encounter Details Date Type Department Care Team (Latest Contact Info) Description 12/23/2020 9:10 AM PHYSICAL THERAPY ATTENDANT - 12/23/2020 11:59 PM [facility] Hospital Encounter [facility] [place] [address] [address] [facility], External Provider [address] [place] [address] Discharge Disposition: Home or Self Care Social [...] [facility] Oncology and Hematology - [place] [address] [facility] [address] [place] [address] Aaron Smith MD [address] [facility] [address] [place] [address] 03/29/2025 12:30 PM CDT Appointment [facility] [place] [address] [place] [address] [place] [address] [address] [place] [address] 03/29/2025 1:30 PM CDT Office Visit [facility] Breast Surgery [place] [address] [address] [address] [place] [address] [place] [address] [facility] [address] [place] [address] documented as of this encounter Procedures Procedure Name Priority Date/Time Associated Diagnosis Comments MAMMO PRIOR STUDY Routine 12/23/2020 9:1 0 AM PHYSICAL THERAPY ATTENDANT Follow up documented in this encounter Results * MAMMO PRIOR STUDY (12/23/2020 9:10 AM PHYSICAL THERAPY ATTENDANT) Narrative 01/10/2021 9:07 AM CDT This exam was auto finalized to allow images to be scanned to PACS. External Provider [facility] DIAGNOSTIC IMAGI NG ORDERABLES documented in this encounter Visit Diagnoses Diagnosis Follow up documented in this encounter
--- OUTSIDE RECORDS SUMMARY | 2024-10-23 02:20 | XMS_ITS | Encounter Summary ---
Author Organization [facility] Address [address] [place] [address] Care Team Providers Care Pinking Machine Operator Name Role Phone Rosa Shi MD Primary Care Provider [phone] Reason for Visit * Reason Comments Nurse Navigation Encounter Details Date Type Department Care Team (Late st Contact Info) Description 01/16/2021 Chart Note [facility] Oncology Patient Navigation [address] [place] [address] Sonia Herrera, SRINIVASAN Nurse Navigation Social History [...] Progress Notes * Sonia Herrera RN - 01/16/2021 3:52 PM CDT Navigation Assessment Note Spoke to patient on the phone following consult with medical oncologist. Patient denies any questions about wallace-adjuvant chemo and is scheduled to have port placement on 01/29/21. Pt reports some worry about needing to rely on family for help and burdening those around her. She also voiced some concerns about transportation to chemo. I informed patient about [employer] as an option for transportation needs and also went over available financial resources. Offered referral to Dr. Kishan Peraza's services for helping navigate the anxiety and worry that she is experiencing. Pt denies wanting to utilize these resources at this time. Email routed to pt with resources. Pt states she will reach out if she decides she would like to use any of them. Pt has contact info for this RN [...] Medical Center)[3] Oncology and Hematology - [place] [address] [place] [address] [facility] [address] [place] [phone] Aaron Smith MD [address] [facility] [address] [place] [address] 03/29/2025 12:30 PM CDT Appointment [facility] [address] [address] [place] [address] [place] [address] [address] [address] 03/29/2025 1:30 PM CDT Office Visit [facility] Breast Surgery [place] [address] [address] [place] [address] [place] [address] [address] documented as of this encounter Visit Diagnoses Not on filedocumented in this encounter Care Teams Pinking Machine Operator Relationship Specialty Start Date End Date Rosa Shi MD [address] [place] [phone] PCP - General Family Practice 01/15/21 documented as of this encounter
--- OUTSIDE RECORDS SUMMARY | 2024-10-23 02:20 | XMS_ITS | Encounter Summary ---
Author Organization [facility] Address [address] [place] [address] Care Team Providers Care Child Nutrition Manager Name Role Phone Polina Rajput MD Primary Care Provider + Encounter Details Date Type Department Care Team (Latest Contact Info) Description 04/18/2019 8:50 AM CDT - 04/18/2019 11:59 PM T Hospital Encounter [facility] [address] [address] [address] [facility], External Provider [address] [place] [address] Discharge Disposition: Home or Self Care Social [...] - [place] [address] [facility] [address] [place] [address] Aaron Smith MD [address] [facility] [address] [place] [address] 03/29/2025 12:30 PM CDT [facility] [address] [facility] [address] [place] [address] [facility] [address] [place] [address] 03/29/2025 1:30 PM CDT Office Visit [facility] Breast Surgery [place] [address] [facility] [address] [place] [address] [place] [address] [facility] [address] [place] [address] documented as of this encounter Procedures Procedure Name Priority Date/Time Associated Diagnosis Comments MAMMO PRIOR STUDY Routine 04/18/2019 8:5 0 AM CDT Follow up documented in this encounter Results * MAMMO PRIOR STUDY (04/18/2019 8:50 AM CDT) Narrative 01/10/2021 8:50 AM CDT This exam was auto finalized to allow images to be scanned to PACS. External Provider [facility] DIAGNOSTIC IMAGI NG ORDERABLES documented in this encounter Visit Diagnoses Diagnosis Follow up documented in this encounter Care Teams Child Nutrition Manager Relationship Specialty Start Date End Date Polina Rajput MD PCP - General 10/28/15 07/06/19 documented as of this encounter
--- OUTSIDE RECORDS SUMMARY | 2024-10-23 02:20 | XMS_ITS | Encounter Summary ---
Author Organization [facility] Address [address] [place] [address] Care Team Providers Care Farebox Repairer Name Role Phone Polina Rajput MD Primary Care Provider Sabi cervantes Encounter Details Date Type Department Care Team (Late st Contact Info) Description 06/09/2012 Abstract [facility] [address] [address] Patricia Priest MD NO ADDRESS [...] [facility] - [place] [address] [place] [address] Aaron Smith MD [address] [facility] [address] [place] [address] 03/29/2025 12:30 PM CDT Appointment [facility] [place] [address] [place] [address] [place] [address] [facility] [address] [place] [address] 03/29/2025 1:30 PM CDT Office [facility] Breast Surgery [place] [address] [facility] [address] [place] [address] [place] [address] [address] [facility] [address] [place] [address] documented as of this encounter Visit Diagnoses Not on filedocumented in this encounter Care Teams Farebox Repairer Relationship Specialty Start Date End Date Polina Rajput MD PCP - General Family Practice 06/08/12 10/27/15 documented as of this encounter
--- OUTSIDE RECORDS SUMMARY | 2024-10-23 02:20 | XMS_ITS | Encounter Summary ---
Author Organization [facility] Address [address] Becerra: Epic Prelude ADT [address] [place] [address] Care Team Providers Care Political Science Instructor Name Role Phone Unavailable Primary Care Provider Unavailabl e Encounter Details Date Type Department Care Team (Latest Contact Info) Description 12/31/2020 Travel Social History Tobacco Use Types Packs/Day [...] COVID-19? Unable to assess 12/31/2020 10:09 AM HOUSEKEEPER CLEANING COOKING documented as of this encounter Plan of Treatment Upcoming Encounters Date Type Department Care Team (Late st Contact Info) Description 02/12/2025 1:00 PM CDT Office Visit [facility] Oncology and Hematology - [place] [address] [facility] [facility] [address] [place] [address] Aaron Smith MD [address] [facility] [address] [place] [address] 03/29/2025 12:30 PM CDT Appointment [facility] [address] [place] [address] [place] [address] [address] [facility] [address] [place] [address] 03/29/2025 1:30 PM CDT Office Visit [facility] Breast Surgery [place] [address] [address] [facility] [address] [place] [address] [place] [address] [address] [facility] [address] [place] [address] documented as of this encounter Visit Diagnoses Not on filedocumented in this encounter
--- OUTSIDE RECORDS SUMMARY | 2024-10-23 02:20 | XMS_ITS | Encounter Summary ---
Author Organization [facility] Address 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 LANCETS [facility] Use as directed 12/01/2020 blood sugar diagnostic [...] [facility] Oncology and Hematology - Levi [address] [facility] [address] [place] [address] Aaron Smith MD 2[address] [facility] [address] [place] [address] 03/29/2025 12:30 PM CDT Appointment [facility] [address] [place] [address] [place] [address] [address] 03/29/2025 1:30 PM CDT Office Visit [facility] Breast Surgery [address] [facility] [address] [place] [address] [place] [address] [facility] [address] [place] [address] documented as of this encounter Procedures Procedure Name Priority Date/Time Associated Diagnosis Comments CBC WITH DIFFERENTIAL Routine 01/14/2021 3:53 PM CDT Malignant neoplasm of areola of left breast in female, estrogen receptor positive COMPREHENSIVE METABOLIC PANEL Routine 01/14/2021 3:51 PM CDT Malignant neoplasm of areola of left breast in female, estrogen receptor positive PATHOLOGY Pathology 01/14/2021 1:44 PM CDT Malignant neoplasm of areola of left breast in female, estrogen receptor positive documented in this encounter Results * (ABNORMAL) CBC WITH DIFFERENTIAL (01/14/2021 3:53 PM CDT) WBC 6.2 4.0 - 9.8 K/uL 01/14/2021 6:39 PM CDT [facility] RBC 5.02(H) 3.90 - 4.90 M/uL 01/14/2021 6:39 PM CDT [facility] HEMOGLOBIN 12.7 11.8 - 14.8 g/dL 01/14/2021 6:39 PM CDT [facility] HEMATOCRIT 41.9 35.5 - 44.0 % 01/14/2021 6:39 PM CDT [facility] MCV 83.5 82.0 - 99.0 fL 01/14/2021 6:39 PM CDT [facility] MCH 25.3(L) 27.2 - 32.6 pg 01/14/2021 6:39 PM CDT [facility] MCHC 30.3(L) 31.5 - 35.5 g/dL 01/14/2021 6:39 PM CDT [facility] RDW 13.7 11.5 - 14.5 % 01/14/2021 6:39 PM CDT [facility] RDW-STDEV 41.9 37.1 - 48.7 fL 01/14/2021 6:39 PM CDT [facility] PLATELETS 308 140 - 350 K/uL 01/14/2021 6:39 PM CDT [facility] MPV 11.8 9.3 - 12.4 fL 01/14/2021 6:39 PM CDT [facility] NEUTROPHILS 63 % 01/14/2021 6:39 PM CDT [facility] - [facility] LYMPHOCYTES 28 % 01/14/2021 6:39 PM CDT [facility] MONOCYTES 9 % 01/14/2021 6:39 PM CDT [facility] EOSINOPHILS 0 % 01/14/2021 6:39 PM CDT [facility] BASOPHILS 0 % 01/14/2021 6:39 PM CDT [facility] IMMATURE GRANULOCYTES 0 % 01/14/2021 6:39 PM CDT [facility] - [facility] [place] NEUTROPHIL ABSOLUTE 3.93 1.90 - 7.00 K/uL 01/14/2021 6:39 PM CDT [facility] LYMPHOCYTE ABSOLUTE 1.76 0.70 - 4.50 K/uL 01/14/2021 6:39 PM CDT [facility] MONOCYTE ABSOLUTE 0.53 0.10 - 1.30 K/uL 01/14/2021 6:39 PM CDT [facility] EOSINOPHIL ABSOLUTE 0.00 0.00 - 0.70 K/uL 01/14/2021 6:39 PM CDT [facility] BASOPHILS ABSOLUTE 0.01 0.00 - 0.20 K/uL 01/14/2021 6:39 PM CDT [facility] - . [facility] IMMATURE GRANULOCYTES ABSOLUTE 0.01 0.00 - 0.03 K/uL 01/14/2021 6:39 PM CDT [facility] . [place] Blood Venipuncture / Unknown 01/14/2021 3:53 PM CDT 01/14/2021 3:53 PM CDT Chayo Zepeda MD HEMATOLOGY ORDER ANTONELLA [facility] CLIA# [id number] [address] [facility] [address] [address] * (ABNORMAL) COMPREHENSIVE METABOLIC PANEL (01/14/2021 3:51 PM CDT) [facility] SODIUM 143 136 - 145 mmol/L 01/14/2021 7:30 PM CDT [facility] POTASSIUM 4.1 3.5 - 5.0 mmol/L 01/14/2021 7:30 PM T [facility] CHLORIDE 102 98 - 107 mmol/L 01/14/2021 7:30 PM [facility] CO2 30(H) 22 - 29 mmol/L 01/14/2021 7:30 PM [facility] CALCIUM 9.8 8.6 - 10.2 mg/dL 01/14/2021 7:30 PM [facility] BUN 9 6 - 20 mg/dL 01/14/2021 7:30 PM [facility] [place] CREATININE 0.72 0.51 - 0.95 mg/dL 01/14/2021 7:30 PM [facility] GLUCOSE 149(H) 74 - 99 mg/dL 01/14/2021 7:30 PM [facility] [place] TOTAL PROTEIN 7.7 6.7 - 8.6 g/dL 01/14/2021 7:30 PM [facility] ALBUMIN 4.0 3.5 - 5.2 g/dL 01/14/2021 7:30 PM [facility] BILIRUBIN TOTAL 0.2(L) 0.3 - 1.2 mg/dL 01/14/2021 7:30 PM [facility] ALKALINE PHOSPHATASE 86 35 - 104 U/L 01/14/2021 7:30 PM [facility] [place] AST 19 <33 U/L 01/14/2021 7:30 PM [facility] - [facility] [place] ALT 20 <34 U/L 01/14/2021 7:30 PM [facility] - [facility] [place] GFR >60 >=60 mL/min/1.7 3 sq meter 01/14/2021 7:30 PM [facility] [place] Comment: eGFR has not been validated for use in the elderly (> 70 years of age), women, patients with serious co-morbid conditions, or persons with extremes of body size or muscle mass and should also be interpreted with caution in patients with acute kidney failure, dialysis dependent patients, patients reporting exceptional dietary intake (e.g. vegetarian diet, high protein diets, creatine supplementation), and patients with severe liver disease. Based on National Kidney Disease Education Program If patient is , please refer to the GFR result. GFR, >60 >=60 mL/min/1.7 3 sq meter 01/14/2021 7:30 PM CDT [facility] ANION GAP 11 8 - 16 mmol/L 01/14/2021 7:30 PM CDT [facility] Blood Venipuncture / Unknown 01/14/2021 3:51 PM CDT 01/14/2021 3:53 PM CDT Narrative [facility] - 01/14/2021 7:30 PM CDT Samples containing indocyanine green cause interferences on Total and/or Direct Bilirubin and must not be measured. Chayo Zepeda MD [facility] Performing Organization Address City/State/[facility] Co de Phone Number [facility]# [id number] [address] [facility] [place] [address] * PATHOLOGY (01/14/2021 1:44 PM CDT) CASE REPORT Surgical Pathology Report ? Case: [id number] ? Authorizing Provider: ??Chayo Zepeda MD ??Collected: ? 01/14/2021 01:44 PM ? Ordering Location: ? [facility] ? Received: ?01/17/2021 01:46 PM ? Laboratory Services ? [address] ? Pathologist: ? Patsy Booker MD ? Specimen: ?Other, specify, 13 slides labeled [id number] ? 1 1:59 PM T [facility] FINAL DIAGNOSIS Breast, left 9:00 areolar, needle biopsy: - Invasive mammary carcinoma, with the following features: 1. Size: 10 mm, greatest core dimension. 2. Jose score: 7. 3. Margins: Not applicable. 4. Lymphvascular invasion: Not identified. 5. Stage: Provisional pT1b. 1 1:59 PM [facility] OSCOPIC DESCRIPTION Per the accompanying pathology report, the submitted specimen consists of a left breast 9:00 areolar needle biopsy, procured on 12/23/2020. Sections contain 4 breast cores, all of which are involved by invasive mammary carcinoma composed of small nests and trabeculae of moderately pleomorphic neoplastic cells (2), with little to no tubular formation (3) and intermediate mitotic activity (2), for a Fairview score of 7. The carcinoma focally infiltrates as singly dispersed cells and loose clusters of focally plasmacytoid appearing neoplastic cells, raising the consideration of lobular differentiation. Lymphovascular invasion is not definitively identified. An associated in situ component is also not noted. The carcinoma measures 10 mm in greatest core dimension. The carcinoma is diffusely positive for CK7, GATA3, GCDFP and ER, shows fairly diffuse weak to moderate positivity for PAX 8, and is negative for CK20, mammaglobin and TTF-1. The invasive carcinoma is positive for ER (8/8, proportion score 5 and intensity score 3) and CT (5/8, proportion score 4 and intensity score 1). HER-2/dez overexpression is reportedly equivocal (2+) by immunohistochemistry and found to be amplified by FISH (HER-2: CEP17 ratio= 2.3, HER-2 average count 5.7). 1 1:59 PM CDT [facility] CLINICAL INFORMATION C50.012, Z17.0 - Malignant neoplasm of areola of left breast in female, estrogen receptor positive [ICD-10-CM] 1 1:59 PM T [facility] SUBMITTED BY Chayo Zepeda MD, [facility] Breast Surgery, [address] [place] [address], [address], Department of Laboratory Medicine and Pathology, [address] [place] [address] 1 1:59 PM T [facility] MATERIAL RECEIVED Received are 4 H&E slides labeled [id number], Rosa Babb (2 sub-labeled A1 and 2 sub-labeled A2) 8 immunohistochemical slides performed on A1 (GATA3, GCDFP the, mammaglobin, ER, CT, CK7, CK20, PAX 8 and TTF-1) as well as the accompanying pathology report from [facility] in [place], [place]. The slides will be returned upon complete evaluation of this case. 1 1:59 PM CDT [facility] COMMENT Special stain and/or immunohistochemical results are interpreted with controls that demonstrate appropriate staining reactions. Note on use of immunocytochemistry reagents: This test was developed and its performance characteristics determined by [facility], Department of Laboratory Medicine. It has [...] part or completely in the following laboratories: [facility], CLIA #[id number] [address] [place] [address] [facility], [place] #[id number] [address] [place] [address] [facility], CLIA #[id number] [address] [place] [address]. 1 1:59 PM CDT [facility] Tissue (Other, specify) 01/14/2021 1:44 PM CDT 01/17/2021 1:46 PM CDT Chayo Zepeda MD PATHOLOGY/CYTOLO GY ORDERABLES [id number] [address] [place] [address] [place] [address] documented in this encounter Visit Diagnoses Diagnosis Malignant neoplasm of areola of left breast in female, estrogen receptor positive documented in this encounter
--- OUTSIDE RECORDS SUMMARY | 2024-10-23 02:20 | XMS_ITS | Encounter Summary ---
Author Organization [facility] Address 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 Name Role Phone Unavailable Primary Care Provider Unavailabl e Reason for Referral * MRI (Routine) - Closed Specialty Diagnoses / Procedures Referred By Vi jackson Referred To Contact Diagnoses Malignant neoplasm of areola of left breast in female, estrogen receptor positive Procedures MRI [place] [address] [address] [place] [address] Referral ID Status Reason Start Date Expiration Date Visits Re quested Visits Authorized [id number] Closed 01/10/2021 02/10/2021 1 1 Reason for Visit * Reason Comments Breast Cancer left breast palpable periareolar cancer Encounter Details Date Type Department Care Team (Late st Contact Info) Description 01/09/2021 3:00 PM CDT Office Visit [facility] BREAST SURGERY - CLYTMelanie CLRKSN [address] [place] [address] [place] [address] [address] [place] [address] Malignant neoplasm of areola of left breast in female, estrogen receptor positive (Primary Dx); Morbid obesity with body mass index (BMI) of 40.0 or higher Social History Tobacco Use Types Packs/Day Years [...] Reading Time Taken Comments Blood Pressure 132/76 01/09/2021 2:48 PM CDT Pulse - - Temperature - - Respiratory Rate - - Oxygen Saturation - - Inhaled Oxygen Concentration - - Weight 102.5 kg (226 lb) 01/09/2021 2:48 PM CDT Height 160 cm (5' 3 ) 01/09/2021 2:48 PM CDT Body Mass Index 40.03 01/09/2021 2:48 PM CDT documented in this encounter Progress Notes * Chayo Zepeda MD - 01/09/2021 3:03 PM CDT PATIENT: Rosa Babb : 1965 DATE: 01/09/2021 Rosa Babb is a 55 y.o. female, -[place]. She is referred by Dr Rosa Shi because of a newly diagnosed left breast cancer. She was in her usual state of health, when she developed Covidwith a pneumonia. 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 She is . She drinks a rare amount. She is a non-smoker. She is heretoday with her brother to discuss surgical options. 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 ALBUTEROL INHALATION Take 1 Puff by inhalation Continuous as needed. ??? LANCETS MISC Use as directed ??? blood sugar diagnostic ([employer] Blood Glucose Test Strip) Strip Diagnosis: Diabetes type 2 Blood testing frequency: 3 times a day ??? clobetasol (TEMOVATE) 0.05 % Topical Oint Apply to affected area 2 times daily. 60 Gram 0 ??? methylPREDNISolone (MEDROL DOSPACK) 4 mg Oral DsPk For use as directed - treatment and taper. 1Package 0 ??? conjugated estrogens (PREMARIN) 0.625 mg/gram Vaginal vaginal cream Insert 2 Gram vaginally daily at bedtime. X 2 weeks then 1 gram per vagina twice per week for care home management. 32 Gram 12 ??? fluticasone-salmeterol (ADVAIR DISKUS) 500-50 mcg/dose Inhalation [...] level: Not on file Occupational History Employer: [employer] Tobacco Use ??? Smoking status: Never [...] Gatherings with Friends and Family: ??? Attends Confucianism Services: ??? Active Member of Clubs or Organizations: ??? Attends Club or Organization Meetings: ??? Marital Status: Intimate Partner Violence: ??? Fear of Current or Ex-Partner: ??? Emotionally Abused: ??? Physically Abused: ??? Sexually Abused: BP 132/76 Ht 5' 3 (1.6 m) Wt 102.5 kg (226 lb) No BMI 40.03 kg/m?? PHYSICAL EXAM: Well-developed, well-nourished, pleasant woman. Anxious. Pleasant woman Neck - no thyromegaly no cervical adenopathy Resp - no labored breathing, no wheezing CV - regular rate, 2+ pulses SCF- no adenopathy Axilla -no adenopathy Breasts - Right breast:normal in appearance, no masses, skin changes or nipple discharge Left breast: palpable solid irregular mass non-tender at periareolar inner quadrant at 9:00, close to base of nipple, no nipple discharge, no axillary LAD. Abdomen - liver and spleen not palpably enlarged Extremities - Good range of motion of shoulders, no lymphedema present IMAGING: I personally reviewed the following films: Mammogram: 08/22/2020 ([place], [place]) - left breast UOQ posterior depth with mass measures 2.8 x 2.1 cm, stable. Left breast ultrasound: 12/18/2020 ([place], [place]) - newly palpable left breast periareolar 9:00 irregular mass, measures 1.2 cm. BIRADs 4. Left breast US guided core biopsy - 12/23/2020 - invasive ductal carcinoma, intermediate grade ER positive (80%), WV weakly positive (1-5%), HER2 2+ equivocal (FISH - amplified) - positive. IMPRESSION /PLAN: 55 y.o. postmenopausal -[place]zech woman with palpable left breast invasive carcinoma, triple positive. Clinical Stage T1-2 cN0 Mx cancer of the left breast. - I reviewed her pathology with her as well as her imaging findings. A copy of her pathology reportwas provided for the patient. - I reviewed surgical options including lumpectomy [...] proximity to the base of the nipple. She voiced that she would like a referral to plastic surgery to learn more about her options. - I reviewed the role of sentinel lymph node biopsy with injection of blue dye at the time of surgery, in addition to a radioisotope injection per nuclear medicine the day of surgery or the day prior. We discussed if her lymph nodes had significant disease, then she would require a completion axillary lymph node dissection. - I have ordered an MRI of the breasts to better evaluate the known malignancy and to evaluate the opposite breast. - I reviewed the role of the medical oncologist and the role of systemic therapy to include chemotherapy and/or endocrine therapy. I explained that due to her tumor being strongly ER positive, she would most likely be recommended for endocrine therapy to follow her cancer treatment that would include a daily pill for 5 years, with an Aromatase Inhibitor. In addition, because her tumor is HER2 amplified, she will likely benefit from HER2 directed chemotherapy upfront versus after surgery. I willrefer her to medical oncology to discuss HER2 directed chemotherapy and right port placement. - I reviewed the role of the radiation oncologist. -- Preoperative testing was ordered, including CBC, CMP, CXR and 12-lead EKG. Summery of Plan: 1. Genetic testing? 2. Breast MRI 3. Referral to medical oncology to discuss upfront vs adjuvant chemotherapy 4. Right port placement - I will call her with the MRI results and discuss the next step to scheduling surgery. - A breast cancer book was provided to the patient. - Please see the individualized family conference sheet. A copy was sent with the patient. 60 minutes were spent with the patient, preparing for the office visit, and reviewing pathology andradiologic data. Chayo Zepeda MD Breast Surgical Oncology [phone] cc: No referring provider defined for this encounter. documented in this encounter Plan of Treatment Upcoming Encounters Date Type Department Care Team (Late st Contact Info) Description 02/12/2025 1:00 PM CDT Office Visit [facility] Oncology and Hematology [facility] [address] [place] [address] [facility] [address] [place] [address] Aaron Smith MD [address] [facility] [address] [place] [address] 03/29/2025 12:30 PM CDT Appointment [facility] [address] [address] [place] [address] [address] [place] [address] 03/29/2025 1:30 PM CDT Office Visit [facility] Breast Surgery [address] [place] [address] [place] [address] [facility] [address] [place] [phone] documented as of this encounter Results * (ABNORMAL) MRI BREAST [...] breast in female, estrogen receptor positive- Primary Morbid obesity with body mass index (BMI) of 40.0 or higher Malignant neoplasm of areola of left breast in female, estrogen receptor positive documented in this encounter
--- OUTSIDE RECORDS SUMMARY | 2024-10-23 02:20 | XMS_ITS | Encounter Summary ---
Author Organization [facility] Address 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 Zepeda. Gave intro to navigation. Discussed Cancer Support Services that are available as needed and that the Navigator role is designed to help as a resource person as well as an educator when needed. Pt is scheduled to meet with medical oncologist on 01/15. I will check in with patient to ensure allquestions are answered to her satisfaction. Pt has contact info for this RN and will reach out with any needs. This RN to follow up. Alcye Herrera, RN, Nurse Navigator documented in this encounter Plan of Treatment Upcoming Encounters Date Type Department Care Team (Late st Contact Info) Description 02/12/2025 1:00 PM CDT Office Visit [facility] Oncology and Hematology - [place] [address] [facility] [address] [place] [address] Aaron Smith MD [address] [facility] [address] [place] [address] 03/29/2025 12:30 PM CDT Appointment [facility] [address] [place] [address] [place] [address] [facility] [address] [place] [address] 03/29/2025 1:30 PM CDT Office Visit [facility] Breast Surgery [address] [address] [facility] [address] [place] [address] [place] [address] [facility] [address] [place] [address] documented as of this encounter Visit Diagnoses Not on filedocumented in this encounter
--- OUTSIDE RECORDS SUMMARY | 2024-10-23 02:20 | XMS_ITS | Encounter Summary ---
Author Organization [facility] Address [address] [place] [address] Care Team Providers Care Heating Systems Installer Name Role Phone Rosa Shi MD Primary Care Provider [phone] Encounter Details Date Type Department Care Team (Late st Contact Info) Description 01/13/2021 Orders Only [facility] BREAST SURGERY - [place] CLRKSN [address] [facility] [address] [place] [address] [place] [address] [place] [address] Malignant neoplasm of areola of [...] [facility] - [place] [address] [facility] [address] [place] [address] Aaron Smith MD [address] [facility] [address] [place] [address] 03/29/2025 12:30 PM CDT Appointment [facility] [address] [address] [place] [address] [place] [address] [facility] [address] [place] [address] 03/29/2025 1:30 PM CDT Office Visit [facility] Breast Surgery [place] [address] [facility] [address] [place] [address] [place] [address] [facility] [address] [place] [address] Scheduled Orders Name Type Priority Associated Diagnoses Orde r Schedule EKG 12-LEAD ECG Routine Malignant neoplasm of areola of left breast in female, estrogen receptor positive Ordered: 01/13/2021 documented as of this encounter Results * (ABNORMAL) CBC WITH DIFFERENTIAL (01/14/2021 3:53 PM CDT) Pathologist [facility] WBC 6.2 4.0 - 9.8 K/uL 01/14/2021 6:39 PM CDT [facility] RBC 5.02(H) 3.90 - 4.90 M/uL 01/14/2021 6:39 PM CDT [facility] HEMOGLOBIN 12.7 11.8 - 14.8 g/dL 01/14/2021 6:39 PM CDT [facility] HEMATOCRIT 41.9 35.5 - 44.0 % 01/14/2021 6:39 PM CDT [facility] MCV 83.5 82.0 - 99.0 fL 01/14/2021 6:39 PM CDT [facility] [place] MCH 25.3(L) 27.2 - 32.6 pg 01/14/2021 6:39 PM CDT [facility] MCHC 30.3(L) 31.5 - 35.5 g/dL 01/14/2021 6:39 PM CDT [facility] RDW 13.7 11.5 - 14.5 % 01/14/2021 6:39 PM CDT [facility] RDW-STDEV 41.9 37.1 - 48.7 fL 01/14/2021 6:39 PM CDT [facility] PLATELETS 308 140 - 350 K/uL 01/14/2021 6:39 PM CDT [facility] MPV 11.8 9.3 - 12.4 fL 01/14/2021 6:39 PM CDT [facility] [place] NEUTROPHILS 63 % 01/14/2021 6:39 PM CDT [facility] [place] LYMPHOCYTES 28 % 01/14/2021 6:39 PM CDT [facility] MONOCYTES 9 % 01/14/2021 6:39 PM CDT [facility] EOSINOPHILS 0 % 01/14/2021 6:39 PM CDT [facility] BASOPHILS 0 % 01/14/2021 6:39 PM CDT [facility] [place] IMMATURE GRANULOCYTES 0 % 01/14/2021 6:39 PM CDT [facility] NEUTROPHIL ABSOLUTE 3.93 1.90 - 7.00 K/uL 01/14/2021 6:39 PM CDT [facility] LYMPHOCYTE ABSOLUTE 1.76 0.70 - 4.50 K/uL 01/14/2021 6:39 PM CDT [facility] MONOCYTE ABSOLUTE 0.53 0.10 - 1.30 K/uL 01/14/2021 6:39 PM CDT [facility] [place] EOSINOPHIL ABSOLUTE 0.00 0.00 - 0.70 K/uL 01/14/2021 6:39 PM CDT [facility] BASOPHILS ABSOLUTE 0.01 0.00 - 0.20 K/uL 01/14/2021 6:39 PM CDT [facility] IMMATURE GRANULOCYTES ABSOLUTE 0.01 0.00 - 0.03 K/uL 01/14/2021 6:39 PM CDT [facility] Blood Venipuncture / Unknown 01/14/2021 3:53 PM CDT 01/14/2021 3:53 PM CDT Chayo Zepeda MD HEMATOLOGY ORDER ANTONELLA [facility] - [facility] CLIA# [id number] [address] [facility] [place] [address] * (ABNORMAL) COMPREHENSIVE METABOLIC PANEL (01/14/2021 3:51 PM CDT) SODIUM 143 136 - 145 mmol/L 01/14/2021 7:30 PM CDT [facility] [place] POTASSIUM 4.1 3.5 - 5.0 mmol/L 01/14/2021 7:30 PM CDT [facility] CHLORIDE 102 98 - 107 mmol/L 01/14/2021 7:30 PM CDT [facility] CO2 30(H) 22 - 29 mmol/L 01/14/2021 7:30 PM CDT [facility] CALCIUM 9.8 8.6 - 10.2 mg/dL 01/14/2021 7:30 PM CDT [facility] BUN 9 6 - 20 mg/dL 01/14/2021 7:30 PM CDT [facility] CREATININE 0.72 0.51 - 0.95 mg/dL 01/14/2021 7:30 PM CDT [facility] GLUCOSE 149(H) 74 - 99 mg/dL 01/14/2021 7:30 PM CDT [facility] TOTAL PROTEIN 7.7 6.7 - 8.6 g/dL 01/14/2021 7:30 PM CDT [facility] ALBUMIN 4.0 3.5 - 5.2 g/dL 01/14/2021 7:30 PM T [facility] BILIRUBIN TOTAL 0.2(L) 0.3 - 1.2 mg/dL 01/14/2021 7:30 PM T [facility] ALKALINE PHOSPHATASE 86 35 - 104 U/L 01/14/2021 7:30 PM T [facility] AST 19 <33 U/L 01/14/2021 7:30 PM T [facility] ALT 20 <34 U/L 01/14/2021 7:30 PM T [facility] GFR >60 >=60 mL/min/1.7 3 sq meter 01/14/2021 7:30 PM T [facility] Comment: eGFR has not been validated for [...] mL/min/1.7 3 sq meter 01/14/2021 7:30 PM T [facility] ANION GAP 11 8 - 16 mmol/L 01/14/2021 7:30 PM [facility] Blood Venipuncture / Unknown 01/14/2021 3:51 PM CDT 01/14/2021 3:53 PM CDT [facility] - 01/14/2021 7:30 PM CDT Samples containing indocyanine green cause interferences on Total and/or Direct Bilirubin and must not be measured. Chayo Zepeda MD CHEMISTRY ORDERA BLES [facility] CLIA# [id number] [address] [address] * XR CHEST PA AND LATERAL 2 VW (01/14/2021 3:33 PM CDT) Anatomical Region Laterality Modality Chest Computed Radiogr aphy 01/14/2021 3:34 PM CDT Impressions 01/14/2021 4:20 PM CDT IMPRESSION: No acute airspace opacity seen DICTATION LOCATION: Location [address] [place] [address] Narrative 01/14/2021 4:20 PM CDT XR CHEST [...] opacity seen DICTATION LOCATION: Location 1 - [facility] Chayo Zepeda MD DIAGNOSTIC IMAGI NG ORDERABLES documented in this encounter Visit Diagnoses Diagnosis Malignant neoplasm of areola of left breast in female, estrogen receptor positive- Primary Malignant neoplasm of areola of left breast in female, estrogen receptor positive documented in this encounter Care Teams Heating Systems Installer Relationship Specialty Start Date End Date Rosa Shi MD [address] [place] [address] PCP - General Family Practice 01/15/21 documented as of this encounter
== END 2024-10-16 13:19 | disposition home or self-care (01) ==
PROVIDERS: PCP Family Medicine; Referring Provider Family Medicine; Visit Provider Internal Medicine Gastroenterology
PROC: 0DJD8ZZ Inspection of Lower Intestinal Tract, Via Natural or Artificial Opening Endoscopic (ICD-10-PCS; CPT 45378; principal; 2024-10-16 12:30)
DX: Z12.11 Encounter for screening for malignant neoplasm of colon (principal); D12.3 Benign neoplasm of transverse colon; D12.4 Benign neoplasm of descending colon; K64.8 Other hemorrhoids; I10 Essential (primary) hypertension; E11.9 Type 2 diabetes mellitus without complications; J45.30 Mild persistent asthma, uncomplicated; G47.33 Obstructive sleep apnea (adult) (pediatric); E78.5 Hyperlipidemia, unspecified; E55.9 Vitamin D deficiency, unspecified; Z85.3 Personal history of malignant neoplasm of breast; Z79.51 Long term (current) use of inhaled steroids; Z79.85 Long-term (current) use of injectable non-insulin antidiabetic drugs; E66.9 Obesity, unspecified; Z68.38 Body mass index [BMI] 38.0-38.9, adult
CPT/HCPCS: 45385; 82948; 88305; J2003; J2704; J7120

== ENCOUNTER 2025-02-08 14:54 | Outpatient (CLI) | payer OTHER, SELFPAY ==
--- OUTSIDE RECORDS SUMMARY | 2025-02-08 15:03 | XMS_ITS | Referral Summary ---
Author Organization [facility] Address [address] [place] [address] Care Team Providers Care Clinical Operations Consultant Name Role Phone Kevin Shi MD Primary Care Provider [phone] Allergies Active Allergy Reactions Criticality Noted Date Comments Latex Rash Medium 05/07/2022 Medications cyanocobalamin (Vitamin B-12) 500 mcg tabletIndicati ons:Prevention of Vitamin B12 Deficiency Take 1 tablet (500 mcg total) by mouth daily Active turmeric root extract 500 mg capsule Take by mouth 2 (two) times a day. 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 Currently listed on patient's [...] UNCNTR Assessment & Plan (11/24/2019 8:01 PM CLAY HOUSE WORKER): Uncontrolled. Due for repeat hga1c. We discussed [...] daily basis. She was interested and the bookjam 14 day reader and the sample reader was given with refills on the reader. Patient was still not sure about applying the reader ever 14 days.. She will check cost on the reader refills and considerate Asthma 03/10/2014 Overview (01/27/2017): ASTHMA NOS Hyperlipidemia due to type 2 diabetes mellitus 0 03/10/2014 Overview (01/27/2017): PURE HYPERCHOLESTEROLEM Assessment & Plan (11/24/2019 8:02 PM CLAY HOUSE WORKER): Due for repeat lipid panel. Ordered today. [...] HYPERTENSION Assessment & Plan (11/24/2019 7:58 PM CLAY HOUSE WORKER): Elevated in office today as patient is [...] 03/10/2014 11/24/2019 Overview (01/27/2017): LICHEN NOS Immunizations Immunization Administration Dates Next Due Influenza, Quadrivalent, Spl [...] on file Legal Sex Female 8:35 AM CLAY HOUSE WORKER Gender Identity Not on file Sexual Orientation Not on file Occupation Industry Job Start Date Job End Date Soon to be retired from [email or web address] March 09 Not on file Not on file Not on file Last Filed Vital Signs Vital Sign Reading Time Taken Comments Blood Pressure 144/80 11/03/2023 8:56 AM CLAY HOUSE WORKER Pulse 82 09/06/2023 9:05 AM CLAY HOUSE WORKER Temperature 36.8 C (98.3 F) 09/06/2023 9:05 AM CLAY HOUSE WORKER Respiratory Rate 16 09/06/2023 9:05 AM CLAY HOUSE WORKER Oxygen Saturation 96% 09/06/2023 9:05 AM CLAY HOUSE WORKER Inhaled Oxygen Concentration - - Weight 95.3 [...] 2 diabetes mellitus with hyperglycemia, unspecified whether emt intermediate insulin use (HCC) HEMOGLOBIN A1C Routine 02/13/2019 11:52 AM CDT Type 2 diabetes mellitus with hyperglycemia, unspecified whether correction insulin use (HCC) LIPID PANEL Routine 04/20/2018 10:14 AM CDT Type 2 diabetes mellitus with hyperglycemia, unspecified whether correction insulin use (HCC) COLONOSCOPY IMAGES 11/12/2014 from Last 3 Months or Most Recently Relevant to Health Maintenance Results * DIABETES EYE EXAM (09/02/2019) Diabetic Eye Exam Normal [place] Provider HEALTH MAINTENANCE Final Result * Screening Mammogram Bilateral W Shay (04/18/2019 10:15 AM CDT) Anatomical Region Laterality Modality Breast Bilateral Mammography 04/18/2019 10:2 0 AM CDT Impressions 04/18/2019 10:21 AM CDT 1. NO DEFINITIVE MAMMOGRAPHIC EVIDENCE OF MALIGNANCY. 2. ANNUAL FOLLOW-UP RECOMMENDED. BI-RADS 1 Electronically signed by: [...] (BERTA) Comment: Interpretive Data Reference Interval Normal >/= 90 mL/min/1.73m2 Mildly decreased* 60 - 89 mL/min/1.73m2 Mildly to moderately decreased 45 - 59 mL/min/1.73m2 Moderately to severely decreased 30 - 44 mL/min/1.73m2 Severely decreased 15 - 29 mL/min/1.73m2 Kidney Failure < 15 mL/min/1.73m2 *Relative to young adult level If -Vietnamese multiply value by 1.16. Estimated glomerular filtration [...] ORDERABLES F inal Result Performing Organization Address City/[facility]/ZIP Co de Phone Number JEFE RUDDY (BERTA) [address] [facility] [place] [address] * (ABNORMAL) Hemoglobin A1c (02/13/2019 11:52 AM CDT) Hgb A1C 7.6(H) 4.0 - 5.6 % JEFE FOX (BERTA) Estimated Average Glucose 171 mg/dL JEFE FOX (BERTA) Comment: The ADA recommends reporting an estimated Average Glucose (eAG) with all Hemoglobin A1c results using the equation derived from a study of 507 normal and diabetic adults. Minority populations were underrepresented and children were not included. (Diabetes Care 31:0965-7446, 2008). The eAG is not equivalent to a fasting glucose. Blood specimen (specimen) 02/13/2019 11:52 AM CDT 02/13/2019 2:22 PM CDT Adryan FOX (BERTA) - 02/13/2019 2:48 PM CDT Polina Rajput MD LAB BLOOD ORDERABLES F inal Result Performing Organization Address City/[facility]/ZIP Co de Phone Number JEFE FOX (BERTA) [address] [facility] [place] [address] * Lipid panel (04/20/2018 10:14 AM CDT) Cholesterol 196 40 - 199 mg/dL JEFE FOX (BERTA) Comment: Interpretive Data Desirable: Less than 200 mg/dl Borderline High: 200 - 239 mg/dl High: Greater than 239 mg/dl Current interpretive data was last revised on 2014. Triglycerides 94.0 <=150.0 mg/dL JEFE FOX (BERTA) Comment: Interpretive Data Normal: Less than 150 mg/dl Borderline high: 150-199 mg/dl High: 200-499 mg/dl Very high: Greater than or equal to 500 mg/dl Current interpretive data was last revised on 2017. HDL 56 40 - 60 mg/dL JEFE FOX (BERTA) Comment: Interpretive Data Low HDL Cholesterol: Less than 40 mg/dl Normal HDL Cholesterol: 40-60 mg/dl High HDL Cholesterol: Greater than 60 mg/dl Current interpretive data was last revised on 2014. LDL, calculated 121 mg/dL NAYELY FOX (BERTA) Comment: Interpretive Data Optimal Less than 100 mg/dL Near optimal/Above optimal 100 - 129 mg/dL Borderline high 130 - 159 mg/dL High 160 - 189 mg/dL Very high Greater than or = 190 mg/dL LDL values are not valid when the total Triglyceride is greater than 300 mg/dL. Current interpretive data was last revised on 2014. Non-HDL Cholesterol 140 mg/dL JEFE FOX (BERTA) Comment: Interpretive Data Optimal Less than 130 mg/dL Low Risk 130 - 159 mg/dL Moderate Risk 160 - 189 mg/dL High Risk Greater than or equal to 190 mg/dL Current interpretive data was last revised on 2014. Blood specimen (specimen) 04/20/2018 10:14 AM CDT 04/20/2018 2:15 PM CDT Narrative JEFE FOX (BERTA) - 04/20/2018 2:56 PM CDT Has the patient been fasting for 8 hours or more?->Yes Has the patient fasted?->Yes Polina Rajput MD LAB BLOOD ORDERABLES F inal Result JEFE CABA) 1 [facility] Department [place] [address] * COLONOSCOPY IMAGES (11/12/2014) Anatomical Region Laterality Modality Other Narrative 11/12/2014 Ordered by an unspecified provider. us Historical Provider GI PROCEDURE ORDERABLES F inal Result from Last 3 Months or Most Recently Relevant to Health Maintenance Insurance [facility] CHOICE PLUS Member Subscriber Plan / Payer (Ef fective 2016-Present) Name:Kevin Chakraborty Relation to Subscriber:Self Name:Kevin Chakraborty Payer ID:[id number] (NAIC) Type:[facility] HMO/PPO Address: [address] CHOICE PLUS [facility] CHOICE PLUS [facility] CHOICE PLUS Care Teams Clinical Operations Consultant Relationship Specialty Start Date End Date Kevin Shi MD PCP - General Family Medicine 10/20/22
--- OUTSIDE RECORDS SUMMARY | 2025-02-08 15:03 | XMS_ITS | Clinical Summary ---
Author Organization [facility] Address [address] [place] [address] Phone Care Team Providers Care After School Counselor Name Role Phone EROS CAUSEY MD Unavailable [phone] Reason for Visit and Chief Complaint gynecologic annual exam - The Chief Complaint is: Annual Exam Problems Includes: Problems addressed during this encounter and other active Problems Current Visit Onset Date Resolved Date Provider Conditio n Status Lichen Sclerosus Et Atrophicus 08/05/2020 PABLO TA RN [facility] BC Active Last Documented On 08/05/2020 2:01PM ; [facility] Note: Unchanged Diabetes Mellitus Type 2 08/05/2020 PABLO TA RN [place] BC Active Last Documented On 0 2:01PM ; [facility] Hypertension Systemic 08/05/2020 PABOL TA RN [place] Active Last Documented On 0 2:01PM ; [facility] Past Visits Onset Date Resolved Date Provider Condition Status Breast Neoplasm Malignant 12/26/2020 PABLO TA RN [place] BC Active Last Documented On 12/26/2020 12:54PM ; [facility] Note: invasive ductal carcinoma 12/23/20 b x Plan of Treatment - Weight loss diet - Last Documented On 08/05/2020 2:06PM ; [facility] - Clinical summary provided to patient - Last Documented On 08/05/2020 2:06PM ; [facility] PT TO CALL WITH ANY CHANGE IN STATUS ALL QUESTIONS ANSWERED WITH UNDERSTANDING VERBALIZED BY PT. - Last Documented On 08/05/2020 2:06PM ; [facility] Instructions to patient Instructed to call if excess gilberto bleeding or abdominal/pelvic pain Last Documented On 0 1:37PM ; [facility] Instructions For Patient: Mo nthly Self Breast Exam Last Documented On 0 1:37PM ; [facility] Recommend diet and exercise at least 30 min three times per week Last Documented On 0 1:37PM ; [facility] Education and Decision Aids were provided during visit for: Patient Education: Daily franny cium and vitamin D Last Documented On 0 1:37PM ; [facility] Assessments Includes: Assessments from this encounter Findings - Routine gynecological exam with abnormal findings - Last Documented On 08/05/2020 2:06PM ; [facility] - Lichen sclerosus et atrophicus - Last Documented On 08/05/2020 2:06PM ; [facility] Instructions Includes: Instructions from this encounter Instructions to patient Instructed to call if excess gilberto bleeding or abdominal/pelvic pain Last Documented On 0 1:37PM ; [facility] Instructions For Patient: Mo nthly Self Breast Exam Last Documented On 0 1:37PM ; [facility] Recommend diet and exercise at least 30 min three times per week Last Documented On 0 1:37PM ; [facility] Education and Decision Aids were provided during visit for: Patient Education: Daily franny cium and vitamin D Last Documented On 0 1:37PM ; [facility] Medical Equipment - Implanted Devices Includes: Current Devices No Medical Equipment Recorded Medications Includes: Medications discussed during this encounter and other current Medications New / Renewed during this visit PABLO MARQUEZ on 08/05/2020 Clobetasol Propionate 0.05% External Cream Provider: PABLO TA RN Melanie [facility] 30 day supply: 1 tube, 7 refills Diagnosis: Lichen sclerosus et atrophicus as directed APPLY 3 times we ekly to ext. genitalia Pharmacy: [facility] [place] - [address] , [place], [address] - Last Documented On 1 8:07AM By PABLO MARQUEZ- ; [facility] Sulfamethoxazole-Trimethopri m 800-160 MG Oral Tablet Provider: PABLO MARQUEZ 7 day supply: 14 tablet, 1 refills Diagnosis: Furuncle, unspecified One tablet twice a day ONE T AB 2 TIMES A DAY WITH FOOD Pharmacy: [facility] [place] - [address] [place] [address] , [place], [address] - Last Documented On 0 2:05PM By PABLO WOODRUFF ; [facility] Fluconazole 150 MG Oral Tablet Provider: PABLO TA RN N [facility] 2 day supply: 2 tablet, 1 refills Diagnosis: Acute vulvitis 1 daily Pt. is to take 1 day 3 and 1 day 7 of antibiotics Pharmacy: [facility] [place] - [address] [place] [address] , [place], [address] - Last Documented On 0 2:05PM By PABLO WOODRUFF ; [facility] Current Medications (continue as prescribed) Lisinopril-hydroCHLOROthiazide 20-12.5 MG Oral Tablet 06/21/2019 Provider: Diagnosis: TAKE 2 TABLETS ONCE DAILY Last Documented On 06/21/2019 3:31PM By Rose Ny MA ; [facility] Turmeric 500 MG Oral Capsule 06/21/2019 Provider: Diagnosis: TAKE TWO TABLETS TWICE A DAY Last Documented On 06/21/2019 3:32PM By Rose Ny MA ; [facility] Meloxicam 15 MG Oral Tablet 06/21/2019 Provider: Diagnosis: TAKE ONE TABLET ONCE A DAY Last Documented On 06/21/2019 3:32PM By Rose Ny MA ; [facility] Indomethacin 25 MG Oral Capsule 06/21/2019 Provider: Diagnosis: TAKE ONE CAPSULE 3 TIMES A DAY NEEDED FOR KVNG N Last Documented On 06/21/2019 3:31PM By Rose Ny MA ; [facility] glipiZIDE 5 MG Oral Tablet 06/21/2019 Provider: Diagnosis: TAKE ONE TABLET DAILY Last Documented On 06/21/2019 3:30PM By Rose Ny MA ; [facility] Fluticasone Propionate (Inha l) 50 MCG/BLIST Inhalation Aerosol Powder Breath Activated 06/21/2019 Provider: Diagnosis: INHALE ONE PUFF TWO TIMES A DAY Last Documented On 06/21/2019 3:30PM By Rose Ny MA ; [facility] Cyanocobalamin 500 MCG Oral Tablet 06/21/2019 Provid er: Diagnosis: TAKE ONCE DAILY Last Documented On 06/21/2019 3:28PM By Rose Ny MA ; [facility] cloNIDine HCl 0.1 MG Oral Tablet 06/21/2019 Provider : Diagnosis: TAKE ONE TABLET TWICE A DAY Last Documented On 06/21/2019 3:27PM By Rose Ny MA ; [facility] amLODIPine Besylate 5 MG Oral Tablet 06/21/2019 Prov ider: Diagnosis: TAKE ONE TABLET DAILY Last Documented On 06/21/2019 3:25PM By Rose Ny MA ; [facility] Past Medications on file Clobetasol Propionate 0.05% External Cream 10/02/2021 - 10/22/2021 Provider: PABLO MARQUEZ Diagnosis: Lichen sclerosus et atrophicus DIRECTED, APPLY 2 TIMES W EEKLY no further refills authorized pt needs annual exam Last Documented On 1 8:07AM By PABLO KNAPP ; [facility] Clobetasol Propionate 0.05% External Cream 08/08/2019 - 11/06/2019 Provider: PABLO MARQUEZ Diagnosis: Lichen sclerosus et atrophicus as directed apply two times weekly after BID x 1 week then qd use x 1 week Last Documented On 9 11:19AM By PABLO WOODRUFF ; [facility] Clindamycin HCl 300 MG Oral Capsule 07/17/2019 - 07/24/2019 Provider: PABLO TA RN [place] Diagnosis: Acute vulvitis One tablet twice a day Last Documented On 9 9:57AM By PABLO WOODRUFF ; [facility] Sulfamethoxazole-Trimethopri m 800-160 MG Oral Tablet 07/11/2019 - 07/21/2019 Provider: PABLO TA RN [place] Diagnosis: Acute vulvitis One tablet twice a day ONE TAB 2 TIMES A DAY WIT H FOOD Last Documented On 9 4:52PM By PABLO WOODRUFF ; [facility] Naproxen 500 MG Oral Tablet 07/11/2019 - 07/18/2019 Provider: PABLO TA RN [place] Diagnosis: Acute vulvitis One tablet twice a day ONE T AB TWICE A DAY WITH FOOD DON'T EXCEED 2 TABS IN 24 HOURS Last Documented On 9 5:24PM By PABLO WOODRUFF ; [facility] Terazol 7 0.4% Vaginal Cream 07/11/2019 - 07/25/2019 Provider: PABLO MARQUEZ Diagnosis: Acute vulvitis as directed 1 ARLET IN VAGINA EVERY NIGHT X 14 apply bid to external genitalia Last Documented On 9 4:52PM By PABLO WOODRUFF ; [facility] Triamcinolone Acetonide 0.1% External Cream 06/21/2019 - 06/28/2019 Provider: PABLO TA RN [place] Diagnosis: Acute vulvitis as directed PLEASE DISPENSE 80 GM USE 50/50 MIX W/NYSTATIN CREAM AND APPLY TO AFFECTED AREAS 3 TIMES A DAY DIRECTED Last Documented On 9 5:00PM By PABLO WOODRUFF ; [facility] Nystatin [id number] UNIT/GM External Cream 06/21/2019 - 07/12/2019 Provider: PABLO MARQUEZ Diagnosis: Acute vulvitis as directed 50/50 mix with t riamcinolone cream apply THREE TIMES A DAY TO AFFECTED AREAS Last Documented On 9 5:00PM By PABLO KNAPP ; [facility] Sulfamethoxazole-Trimethopri m 800-160 MG Oral Tablet 06/21/2019 - 06/28/2019 Provider: PABLO TA RN [place] Diagnosis: Furuncle, unspecified One tablet twice a day ONE TAB 2 TIMES A DAY WIT H FOOD Last Documented On 9 5:00PM By PABLO WOODRUFF ; [facility] Terconazole 0.4% Vaginal Cream 06/21/2019 - 07/12/2019 Provider: PABLO TA RN [place] Diagnosis: Acute vaginitis as directed one arlet in vagin a every night x 7 apply bid to perineum Last Documented On 9 5:00PM By PABLO WOODRUFF ; [facility] Medications Administered Includes: Administered Medications from this encounter No Administered Medications Recorded Vital Signs Includes: Vital Signs from this encounter Vital Name 08/05/2020 01:22P 08/05/2020 01: 19P Blood Pressure Sitting (mmHg) 128/68 Temp-Oral (F) 98.2 Weight (lb) 232 Height (in) 61 Last Documented: On 08/05/2020 1:26PM ; [facility] On 08/05/2020 1:19PM ; [facility] Results Includes: Results discussed during [...] Documented On 0 2:06PM ; [facility] Alcohol use occa 08/05/2020 Last Documented On 0 2:06PM ; [facility] Alcohol use: 2 drinks or less per day oc c 08/05/2020 Last Documented On 0 2:06PM ; [facility] Education history 08/05/2020 Last Documented On 0 2:06PM ; [facility] Non-smoker 08/05/2020 Last Documented On 0 2:06PM ; [facility] Not a smoker 08/05/2020 Last Documented On 0 2:06PM ; [facility] Not using drugs 08/05/2020 Last Documented On 0 2:06PM ; 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 Sexually active 08/05/2020 Last Documented On 0 2:06PM ; [facility] Sexually active 1 partner 08/05/2020 Last Documented On 0 2:06PM ; [facility] Single partner x 6 yrs 08/05/2020 Last Documented On 0 2:06PM ; [facility] Smoking status : Never smoker 08/05/2020 Last Documented On 0 2:06PM ; [facility] Procedures and Surgical History Includes: Procedures from this encounter Procedures Code Diagnosis Performing Provider Service L ocation Service Date education and instructions Last Documented On 0 1:37PM ; [facility] explanation of plan Last Documented On 0 1:37PM ; [facility] medical regimen review Last Documented On 0 1:37PM ; [facility] Urged Exercise and Diet , exercise at le ast 30 min three times per week Last Documented On 0 1:37PM ; [facility] Surgical History Last Updated History of hysterectomy 08/08/2019 Last Documented On 0 1:19PM ; [facility] History of vaginal hysterect albina PARTIAL d/t menorrhagia ovaries intact bilaterally 06/21/2019 Last Documented On 0 1:19PM ; [facility] Medical History Includes: Medical History addressed during this encounter Description Last Updated Sexually active with 1 partners in the l ast year 08/08/2019 Last Documented On 0 1:19PM ; [facility] History of asthma 08/08/2019 Last Documented On 0 1:19PM ; [facility] History of benign essential hypertension 08/08/2019 Last Documented On 0 1:19PM ; [facility] History of type 1 diabetes mellitus 07/25 Last Documented On 0 1:19PM ; [facility] LMP: 200808/08/2019 Last Documented On 0 1:19PM ; [facility] Sexually active 08/08/2019 Last Documented On 0 1:19PM ; [facility] History of a DXA of the lateral lumbar s pine was performed 07/04/2019 08/08/2019 Last Documented On 0 1:19PM ; [facility] History of complete colonoscopy 2016 Last Documented On 0 1:19PM ; [facility] History of Pap smear done 07/12/201907/25 Last Documented On 0 1:19PM ; [facility] History of screening mammogram was perfo rmed 05/09/2019 08/08/2019 Last Documented On 0 1:19PM ; [facility] Last pap smear date 06/21/2019 07/11/2019 Last Documented On 0 1:19PM ; [facility] A colonoscopy was performed 2017 [facility] Last Documented On 0 1:19PM ; [facility] Result: normal 06/21/2019 Last Documented On 0 1:19PM ; [facility] High blood pressure ~Diabete s- herself and parents ~Kindey failure- father ~Brain cancer- mother ~Infertility 06/21/2019 Last Documented On 0 1:19PM ; [facility] 1 06/21/2019 Last Documented On 0 1:19PM ; [facility] Last mammogram date: 05/09/2019 9 Last Documented On 0 1:19PM ; [facility] Para 1 06/21/2019 Last Documented On 0 1:19PM ; [facility] Family History Includes: Family History addressed during this encounter Description Last Updated Maternal history of hypertension both pa rtents 08/08/2019 Last Documented On 0 1:19PM ; [facility] Maternal history of pure hypercholestero lemia both parents 08/08/2019 Last Documented On 0 1:19PM ; [facility] No family history of malignant female br east neoplasm 08/08/2019 Last Documented On 0 1:19PM ; [facility] No family history of malignant neoplasm of large intestine 08/08/2019 Last Documented On 0 1:19PM ; [facility] No family history of malignant neoplasm of the ovary 08/08/2019 Last Documented On 0 1:19PM ; [facility] No family history of uterine cancer 07/25 Last Documented On 0 1:19PM ; [facility] Paternal history of diabetes mellitus agustina th parents 08/08/2019 Last Documented On 0 1:19PM ; [facility] Review of Systems Includes: Review of [...] WELL WOMAN EXAM PABLO TA RN HI [facility] 08/05/20 20 1:30PM 1:56PM Routine Gynecological Exam with Abnormal Findings,Lichen Sclerosus Et Atrophicus Insurance Includes: Active Insurance Policies Plan Name Member ID Group # Subscriber Relationship Effect gilberto Dates 1 - [facility] [id number] KEVIN CHAKRABORTY Self Clinical Notes Includes: Clinical Notes from this encounter No Clinical Notes Recorded
--- OUTSIDE RECORDS SUMMARY | 2025-02-08 15:03 | XMS_ITS | Clinical Summary ---
Author Organization [facility] Address [address] [place] [address] Phone Care Team Providers Care Family Worker Name Role Phone Rosa Shi MD Primary Care Provider [phone] Allergies No known active allergies Medications fluticasone-césar [...] Comments Blood Pressure 172/88 12/01/2020 7:00 AM [facility] Pulse 89 12/01/2020 9:06 AM [facility] Temperature 36.2 C (97.2 F) 12/01/2020 7:00 AM [facility] Respiratory Rate 18 12/01/2020 9:06 AM [facility] Oxygen Saturation 90% 12/01/2020 9:06 AM [facility] Inhaled Oxygen Concentration - - Weight 106.6 kg (235 lb) 11/28/2020 7:13 AM [facility] Height 160 cm (5' 3 ) 11/28/2020 7:13 AM [facility] Body Mass Index 41.63 11/28/2020 7:13 AM [facility] Plan of Treatment Health Maintenance Due Date Last Done Comments Diabetes: Eye Exam 1965 Diabetes: Foot Exam 1965 Hepatitis C Virus (HCV) Screening 1963 TdaP Immunization 1963 Pneumococcal Immunization (50+ years) (1 of 2 - PCV) 1982 Colonoscopy 2008 Colorectal Cancer Screening 2008 Cologuard 2013 Immunochemical Fecal Occult Blood 2013 Zoster Immunization (1 of 2) 2013 [...] (COMPREHENSIVE METABOLIC PANEL) Routine 12/01/2020 6:21 AM [facility] HEMOGLOBIN A1C W/ ESTIMATED GLUCOSE Routine 11/29/2020 4:00 AM [facility] from Last 3 Months or Most Recently Relevant to Health Maintenance Results * (ABNORMAL) CMP (Comprehensive Metabolic Panel) (12/01/2020 6:21 AM [facility]) SODIUM 139 136 - 144 mmol/L 12/01/2020 6:48 AM [facility] POTASSIUM 4.0 3.5 - 5.1 mmol/L 12/01/2020 6:48 AM [facility] CHLORIDE 100 100 - 110 mmol/L 12/01/2020 6:48 AM [facility] CO2, VENOUS 29 22 - 32 mmol/L 12/01/2020 6:48 AM [facility] ANION GAP 14.0 8.0 - 20.0 mmol/L 12/01/2020 6:48 AM [facility] GLUCOSE 72 70 - 99 mg/dL 12/01/2020 6:48 AM [facility] BUN 15 6 - 20 mg/dL 12/01/2020 6:48 AM [facility] CREATININE, BLOOD 0.62 0.60 - 1.10 mg/dL 12/01/2020 6:48 AM [facility] BUN/CREATININE RATIO 24(H) 12 - 20 ratio 12/01/2020 6:48 AM [facility] TOTAL PROTEIN 7.3 6.0 - 8.3 g/dL 12/01/2020 6:48 AM [facility] ALBUMIN 3.4(L) 3.5 - 5.2 g/dL 12/01/2020 6:48 AM [facility] Comment: The colormetric methods used for the determination of Albumin may lead to falsely elevated test results in patients suffering from renal failure or insufficiency due to interference with other proteins. A/G RATIO 0.9(L) 1.0 - 2.0 12/01/2020 6:48 AM [facility] CALCIUM 9.1 8.9 - 10.3 mg/dL 12/01/2020 6:48 AM [facility] T BILI 0.4 <=1.2 mg/dL 12/01/2020 6:48 AM [facility] SGOT (AST) 13 <=32 U/L 12/01/2020 6:48 AM [facility] SGPT (ALT) 21 <=41 U/L 12/01/2020 6:48 AM [facility] ALKALINE PHOSPHATASE 86 35 - 105 U/L 12/01/2020 6:48 AM [facility] GFR, EST. NONAFRICAN >60 >=60 12/01/2020 6:48 AM [facility] GFR, EST. >60 >=60 021 6:48 AM [facility] Comment: Creatinine Clearance is the preferred criteria for selecting drug dose adjustments in renally impaired patients. The GFR is provided as additional pertinent clinical information. GFR is reported in mL/min/1.73 sq m. Blood Venipuncture / Unknown 12/01/2020 6:21 AM [facility] 12/01/2020 6:25 AM [facility] Patrick Oliva MD CHEMISTRY ORDERABLES Final Res ult [facility] [address] [place] [address] * (ABNORMAL) Hemoglobin A1C w/ Estimated Glucose (11/29/2020 4:00 AM [facility]) HGB-A1C 8.5(H) 4.0 - 6.0 % 11/29/2020 7:19 AM [facility] Est Average Glucose 197.3 mg/dL 11/29/2020 7:19 AM [facility] Blood Butterfly Punctu re / Unknown 11/29/2020 4:00 AM [facility] 11/29/2020 4:19 AM [facility] Narrative [facility] - 11/29/2020 7:19 AM [facility] HEMOGLOBIN A1C: DIABETIC PATIENTS: WELL-CONTROLLED: 6.2 - 7.0 INTERMEDIATE WELL-CONTROLLED: 7.0 - 9.0 POORLY-CONTROLLED: >9.0 Komal Lugo CARBONATION TESTER, ASSISTED LIVING COORDINATOR CHEMISTRY ORDERABLES Final Result Performing Organization Address City/[facility] Co de Phone Number [facility] [address] [place] [address] from Last 3 Months or Most Recently Relevant to Health Maintenance Advance Directives * Full Code (Latest Code Status on File) Date Activated Date Inactivated Comments 11/28/2020 9:45 AM 12/01/2020 1:45 PM CPR-Full Treat ment: FULL ARREST: Attempt Resuscitation/CPR wit intubation and mechanical ventilation. PRE-ARREST: Use entire range of life support measures to stabilize the patient. Care Teams Family Worker Relationship Specialty Start Date End Date Rosa Shi MD [address] [place] [address] PCP - General Family Medicine 11/28/20
--- OUTSIDE RECORDS SUMMARY | 2025-02-08 15:03 | XMS_ITS | Clinical Summary ---
Author Organization [facility] Address [address] [place] [address] Care Team Providers Care Forensic Document Examiner Name Role Phone Rosa Shi MD Primary Care Provider [phone] Allergies Active Allergy Reactions Criticality Noted Date Comments Latex Rash Low 05/07/2022 Medications fluticasone propion-salmete roL (ADVAIR DISKUS,WIXELA INHUB) 500-50 mcg/dose disk inhaler Take 1 Puff by inhalation 2 times daily. Active ALBUTEROL INHALATION Take 1 Puff by inhalation Continuous as needed. Active LANCETS [facility] Use as directed 1 Active blood sugar diagnostic Strip Diagnosis: Diabetes type 2 Blood testing frequency: 3 times a day 1 Active blood-glucose meter (BLOOD GLUCOSE MONITOR KIT [facility]) Diagnosis: Diabetes type 2 Blood testing frequency: 3 times a day 1 Active cholecalciferol , Vitamin D3, (VITAMIN D3) 25 mcg (1,000 unit) Capsule Take by mouth daily. Active Trulicity 0.75 mg/0.5 mL injection 0.75 mg by See Admin Instructions route every 7 days. 3 Active ibuprofen (MOTRIN) 800 mg tablet Take 800 mg by mouth every 8 hours as needed for Pain. 4 Active cyanocobalamin (VITAMIN B-12) 500 mcg tablet Take 500 mcg by mouth daily. Active atorvastatin (LIPITOR) 10 mg tablet Take 10 mg by mouth daily. Active anastrozole (ARIMIDEX) 1 mg tabletIndicatio ns:Malignant neoplasm of areola of left breast in female, estrogen receptor positive (CMS/HCC) TAKE 1 TABLET DAILY 90 Tablet 3 5 Active Active Problems Patient Care Coordination No te Formatting of this note migh t be different from the original. Primary Care: Rosa Shi MD [place]: [place] [address] [place] [address] Other: Dr. Chayo Zepeda MD Problem Noted Date Diagnosed Date History of partial mastectomy, left 03/28/2024 Aromatase inhibitor use 03/28/2024 Lymphedema of breast 03/28/2024 History of left breast cancer 03/23/2023 Malignant neoplasm of left female breast 021 Cancer Staging:Clinical stage from 06/25/2021:No Stage Recommended(ycT1c, cN0, cM0, G3, ER+, MD+, HER2+) - Signed by Chayo Zepeda MD [...] Encounters Date Type Department Care Team Description 01/10/2025 External Device Data [facility] ABSTRACTION Provider, Abstract 01/01/2025 External Device Data [facility] ABSTRACTION Provider, Abstract 12/30/2024 External Device Data [facility] ABSTRACTION Provider, Abstract 12/30/2024 External Device Data [facility] ABSTRACTION Provider, Abstract 12/13/2024 External Device Data [facility] ABSTRACTION Provider, Abstract 12/13/2024 External Device Data [facility] ABSTRACTION Provider, Abstract 11/30/2024 Refill [facility] Oncology and Hematology - [place] [address] [address] [place] [phone] Aaron Smith MD 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, estrogen receptor positive (CMS/HCC) 11/16/2024 External Device Data [facility] ABSTRACTION Provider, Abstract from Last 3 Months Immunizations Immunization Administration Dates Next Due (SPIKEVAX) (12 YRS [...] = 0.6 oz pur e alcohol) 1/week Comments No Sex and Gender Information Value Date Recorded Sex Assigned at Not on file Legal Sex Female 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 Gender Identity Not on file Sexual Orientation Not on file Occupation Industry Job Start Date Job End Date Not on file Not on file Not on file Not on file Last Filed Vital Signs Vital Sign Reading Time Taken Comments Blood Pressure 146/76 08/07/2024 3:17 PM CDT Pulse 94 08/07/2024 3:17 PM CDT Temperature 36.5 C (97.7 F) 08/07/2024 3:17 PM CDT Respiratory Rate 16 08/07/2024 3:17 PM CDT Oxygen Saturation 96% 08/07/2024 3:17 PM CDT Inhaled Oxygen Concentration - - Weight 95.7 kg (211 lb) 08/07/2024 3:17 PM CDT Height 157.5 cm (5' 2 ) 03/28/2024 1:13 PM CDT Body Mass Index 38.59 03/28/2024 1:13 PM CDT Plan of Treatment Upcoming Encounters Date Type Department Care Team (Late st Contact Info) Description 02/22/2025 3:45 PM CDT Office Visit [facility] Oncology and Hematology - [place] [address] [facility] [address] [place] [address] Aaron Smith MD [address] [facility] [address] [place] [address] 03/29/2025 12:[address] [facility] [address] [place] [address] [place] [address] [facility] [address] [place] [address] 03/29/2025 1:30 PM CDT Office Visit [facility] Breast Surgery [place] [address] [facility] [address] [place] [address] [place] [address] [facility] [address] [place] [address] Health Maintenance Due Date Last Done Comments DIABETES ANNUAL RETINAL EXAM 1981 DIABETES MICROALBUMIN ANNUAL SCREEN 1981 LDL CHOLESTEROL ANNUAL 1981 FIT-DNA Q 3 years 2008 FIT/FOBT Q 1 year 2008 Flex Sig/CT Colonography Q 5 years 2008 ZOSTER VACCINE (1 of 2) 2013 DIABETES ANNUAL FOOT EXAM 07/04/2020 07/04/2019 DTAP/TDAP/TD VACCINES (2 - T d or Tdap) 08/04/2020 08/04/2010 DIABETES HBA1C Q 6 MONTHS 04/20/20222020, 11/29/2020, 02/13/2019 RSV VACCINE (60+ or ) (1 - Risk 60-74 years 1-dose series) 2023 INFLUENZA VACCINE (#1) 2024 , 10/20/2017, 08/01/2014 COVID-19 Vaccine (3 - 2023-2 5 season) 2024 01/04/2021, 12/07/2020 Preventative Visit- Commercial 10/25/2024 06/08/2012 COLORECTAL SCREENING 11/12/2024 11/12/2014, 11/12/19 Colorectal Cancer Screening 11/12/2024 BREAST CANCER SCREENING 03/28/2025 03/28/20, 03/23/2023, 03/24/2022, Additional history exists Medical Devices Implanted Type Area Park Manager Device Identifier Shelf Expiration Date Model / Serial / Lot Oven Heater Helper Clip Surgiclip Ii Jaime 9.75in [id number] - [id number] Implanted:Qty: 1 on 06/25/2021 by Chayo Zepeda MD at [facility] Clip Left: Axilla [employer] - COVIDIEN 12/22/2025 [id number] / / [id number] Oven Heater Helper Clip Surgiclip Ii Jaime 9.75in [id number] - [id number] Implanted:Qty: 1 on 06/25/2021 by Chayo Zepeda MD at [facility] Clip Left: Axilla [employer] - COVIDIEN 06/24/2025 [id number] / / [id number] Hemostatic Surgicel 2x14in 1950 - [id number] Implanted:Qty: 1 on 06/25/2021 by Chayo Zepeda MD at [facility] Hemostatic Left: Breast [employer] 01/22/20251950 / / [id number] Explanted Type Area Park Manager Device Identifier Shelf Expiration Date Model / Serial / Lot Port Powerport Clearvue 8fr Mri [id number] - [id number] Implanted:Qty: 1 on 01/29/2021 by Chayo Zepeda MD at [facility] Explanted:Qty: 1 on 05/27/2022 by Chayo Zepeda MD at [facility] Port Right: Chest CR BARD[employer]ASC [employer] 04/23/2022 [id number] / / [id number] Procedures Procedure Name Priority Date/Time Associated Diagnosis Comments MAMMO 3D JESS DIAGNOSTIC BILAT W OR WO CAD Routine 03/28/2024 12:33 PM CDT History of left breast cancer Lymphedema HEMOGLOBIN A1C Routine 10/20/2021 from Last 3 Months or Most Recently Relevant to Health Maintenance Results * MAMMO DIAG BILAT 3D JESS W OR WO CAD (03/28/2024 12:33 PM CDT) Anatomical Region Laterality Modality Breast Bilateral Mammography 03/28/2024 12:3 3 PM CDT Impressions 03/28/2024 3:46 PM CDT IMPRESSION: 1. No concerning mammographic abnormalities identified. OVERALL FINAL ASSESSMENT: BI-RADS CATEGORY 2 - Benign findings. RECOMMENDATION: 1. Recommend annual mammography. Narrative 03/28/2024 3:46 PM CDT BILATERAL DIAGNOSTIC DIGITAL MAMMOGRAM WITH 3D TOMOSYNTHESIS AND CAD DATE: 03/28/2024 12:33 PM DICTATION LOCATION: [facility] HISTORY: Personal history of left-sided breast cancer [...] architectural distortion are identified in either breast. Procedure Note Derek Ponce MD - 03/28/2024 BILATERAL DIAGNOSTIC DIGITAL MAMMOGRAM WITH 3D TOMOSYNTHESIS AND CAD DATE: 03/28/2024 12:33 PM DICTATION LOCATION: [facility] [place] HISTORY: Personal history of left-sided breast cancer [...] annual mammography. Chayo Zepeda MD MAMMO ORDERABLES Final R esult * HEMOGLOBIN A1C (10/20/2021) Blood Abstract Provider CHEMISTRY ORDERABLES Final Res ult from Last 3 Months or Most Recently Relevant to Health Maintenance Insurance [employer] [id number] [place] [id number] Advance Directives For more information, please contact: [phone] * Full Code (Latest Code Status on File) Date Activated Date Inactivated Comments 06/25/2021 5:53 AM 06/25/2021 3:54 PM * Full Code Date Activated Date Inactivated Comments 01/29/2021 7:01 AM 01/29/2021 11:48 AM Care Teams Forensic Document Examiner Relationship Specialty Start Date End Date Rosa Shi MD [address] [place] [address] PCP - General Family Practice 01/15/21
--- OUTSIDE RECORDS SUMMARY | 2025-02-08 15:03 | XMS_ITS | Clinical Summary ---
Author Organization [facility] Address [address] [place] [address] Phone Care Team Providers Care Engraver Steel Plate Name Role Phone EROS CAUSEY MD Unavailable [phone] Reason for Visit and Chief Complaint CHART UPDATE Problems Includes: Problems addressed during this encounter and other active Problems Current Visit Onset Date Resolved Date Provider Conditio n Status Breast Neoplasm Malignant 12/26/2020 PABLO TA RN [facility] Active Last Documented On 12/26/2020 12:54PM ; [facility] Note: invasive ductal carcinoma 12/23/20 b x Past Visits Onset Date Resolved Date Provider Condition Status Lichen Sclerosus Et Atrophicus 08/05/2020 PABLO TA RN [facility] Active Last Documented On 08/05/2020 2:01PM ; [facility] Note: Unchanged Diabetes Mellitus Type 2 08/05/2020 PABLO TA RN [place] Active Last Documented On 0 2:01PM ; [facility] Hypertension Systemic 08/05/2020 PABLO TA RN [place] Active Last Documented On 0 2:01PM ; [facility] Plan of Treatment No Plan of Treatment [...] 06/21/2019 3:31PM By Rose Ny MA ; [facility] Turmeric 500 MG Oral Capsule 06/21/2019 Provider: Diagnosis: TAKE TWO TABLETS TWICE A DAY Last Documented On 06/21/2019 3:32PM By Rose Ny MA ; [facility] Meloxicam 15 MG Oral Tablet 06/21/2019 Provider: Diagnosis: TAKE ONE TABLET ONCE A DAY Last Documented On 06/21/2019 3:32PM By Rose Ny MA ; [facility] Indomethacin 25 MG Oral Capsule 06/21/2019 Provider: Diagnosis: TAKE ONE CAPSULE 3 TIMES A DAY NEEDED FOR KVNG N Last Documented On 06/21/2019 3:31PM By Rose Ny MA ; [facility] glipiZIDE 5 MG Oral Tablet 06/21/2019 Provider: Diagnosis: TAKE ONE TABLET DAILY Last Documented On 06/21/2019 3:30PM By Rose Ny MA ; [facility] Fluticasone Propionate (Inha l) 50 MCG/BLIST Inhalation Aerosol Powder Breath Activated 06/21/2019 Provider: Diagnosis: INHALE ONE PUFF TWO TIMES A DAY Last Documented On 06/21/2019 3:30PM By Rose Ny MA ; [facility] Cyanocobalamin 500 MCG Oral Tablet 06/21/2019 Provid er: Diagnosis: TAKE ONCE DAILY Last Documented On 06/21/2019 3:28PM By Rose Ny MA ; [facility] cloNIDine HCl 0.1 MG Oral Tablet 06/21/2019 Provider : Diagnosis: TAKE ONE TABLET TWICE A DAY Last Documented On 06/21/2019 3:27PM By Rose Ny MA ; [facility] amLODIPine Besylate 5 MG Oral Tablet 06/21/2019 Prov ider: Diagnosis: TAKE ONE TABLET DAILY Last Documented On 06/21/2019 3:25PM By Rose Ny MA ; [facility] Past Medications on file Clobetasol Propionate 0.05% External Cream 10/02/2021 - 10/22/2021 Provider: PABLO Navarro [place] Diagnosis: Lichen sclerosus et atrophicus DIRECTED, APPLY 2 TIMES W EEKLY no further refills authorized pt needs annual exam Last Documented On 8:07AM By PABLO TA HI- ; [facility] Sulfamethoxazole-Trimethopri m 800-160 MG Oral Tablet 08/05/2020 - 08/19/2020 Provider: PABLO TA RN [facility] Diagnosis: Furuncle, unspecified One tablet twice a day ONE TAB 2 TIMES A DAY WIT H FOOD Last Documented On 0 2:05PM By PABLO KNAPP ; [facility] Fluconazole 150 MG Oral Tablet 08/05/2020 - 08/09/2020 Provider: PABLO TA RN [place] Diagnosis: Acute vulvitis 1 daily Pt. is to take 1 day 3 and 1 day 7 of antibiotics Last Documented On 0 2:05PM By PABLO KNAPP ; [facility] Clobetasol Propionate 0.05% External Cream 08/08/2019 - 11/06/2019 Provider: PABLO aNvarro [place] Diagnosis: Lichen sclerosus et atrophicus as directed apply two times weekly after BID x 1 week then qd use x 1 week Last Documented On 9 11:19AM By PABLO KNAPP ; [facility] Clindamycin HCl 300 MG Oral Capsule 07/17/2019 - 07/24/2019 Provider: PABLO TA RN [place] Diagnosis: Acute vulvitis One tablet twice a day Last Documented On 9 9:57AM By PABLO KNAPP ; [facility] Sulfamethoxazole-Trimethopri m 800-160 MG Oral Tablet 07/11/2019 - 07/21/2019 Provider: PABLO TA RN [place] Diagnosis: Acute vulvitis One tablet twice a day ONE TAB 2 TIMES A DAY WIT H FOOD Last Documented On 9 4:52PM By PABLO KNAPP ; [facility] Naproxen 500 MG Oral Tablet 07/11/2019 - 07/18/2019 Provider: PABLO TA RN [place] Diagnosis: Acute vulvitis One tablet twice a day ONE T AB TWICE A DAY WITH FOOD DON'T EXCEED 2 TABS IN 24 HOURS Last Documented On 9 5:24PM By PABLO WOODRUFF ; [facility] Terazol 7 0.4% Vaginal Cream 07/11/2019 - 07/25/2019 Provider: PABLO TA RN [place] Diagnosis: Acute vulvitis as directed 1 ARLET IN VAGINA EVERY NIGHT X 14 apply bid to external genitalia Last Documented On 9 4:52PM By PABLO KNAPP ; [facility] Triamcinolone Acetonide 0.1% External Cream 06/21/2019 - 06/28/2019 Provider: PABLO TA RN [place] Diagnosis: Acute vulvitis as directed PLEASE DISPENSE 80 GM USE 50/50 MIX W/NYSTATIN CREAM AND APPLY TO AFFECTED AREAS 3 TIMES A DAY DIRECTED Last Documented On 9 5:00PM By PABLO KNAPP ; [facility] Nystatin [id number] UNIT/GM External Cream 06/21/2019 - 07/12/2019 Provider: PABLO TA RN [place] Diagnosis: Acute vulvitis as directed 50/50 mix with t riamcinolone cream apply THREE TIMES A DAY TO AFFECTED AREAS Last Documented On 9 5:00PM By PABLO KNAPP ; [facility] Sulfamethoxazole-Trimethopri m 800-160 MG Oral Tablet 06/21/2019 - 06/28/2019 Provider: PABLO TA RN [place] Diagnosis: Furuncle, unspecified One tablet twice a day ONE TAB 2 TIMES A DAY WIT H FOOD Last Documented On 9 5:00PM By PABLO WOODRUFF ; [facility] Terconazole 0.4% Vaginal Cream 06/21/2019 - 07/12/2019 Provider: PABLO TA RN [place] Diagnosis: Acute vaginitis as directed one arlet in vagin a every night x 7 apply bid to perineum Last Documented On 9 5:00PM By PABLO KNAPP ; [facility] Medications Administered Includes: Administered Medications from this [...] 08/08/2019 Last Documented On 1 12:51PM ; [facility] History of vaginal hysterect albina PARTIAL d/t menorrhagia ovaries intact bilaterally 06/21/2019 Last Documented On 1 12:51PM ; [facility] Medical History Includes: Medical History addressed during this encounter Description Last Updated Sexually active with 1 partners in the l ast year 08/08/2019 Last Documented On 1 12:51PM ; [facility] History of asthma 08/08/2019 Last Documented On 1 12:51PM ; [facility] History of benign essential hypertension 08/08/2019 Last Documented On 1 12:51PM ; [facility] History of type 1 diabetes mellitus 07/25 Last Documented On 1 12:51PM ; [facility] LMP: 2009 08/08/2019 Last Documented On 1 12:51PM ; [facility] Sexually active 08/08/2019 Last Documented On 1 12:51PM ; [facility] History of a DXA of the lateral lumbar s pine was performed 07/04/2019 08/08/2019 Last Documented On 1 12:51PM ; [facility] History of complete colonoscopy 2016 Last Documented On 1 12:51PM ; [facility] History of Pap smear done 07/12/201907/25 Last Documented On 1 12:51PM ; [facility] History of screening mammogram was perfo rmed 05/09/2019 08/08/2019 Last Documented On 1 12:51PM ; [facility] Last pap smear date 06/21/2019 07/11/2019 Last Documented On 1 12:51PM ; [facility] A colonoscopy was performed 2016 [facility] Last Documented On 1 12:51PM ; [facility] Result: normal 06/21/2019 Last Documented On 1 12:51PM ; [facility] High blood pressure ~Diabete s- herself and parents ~Kindey failure- father ~Brain cancer- mother ~Infertility 06/21/2019 Last Documented On 1 12:51PM ; [facility] 1 06/21/2019 Last Documented On 1 12:51PM ; [facility] Last mammogram date: 05/09/2019 9 Last Documented On 1 12:51PM ; [facility] Para 1 06/21/2019 Last Documented On 1 12:51PM ; [facility] Family History Includes: Family History addressed during this encounter Description Last Updated Maternal history of hypertension both pa rtents 08/08/2019 Last Documented On 1 12:51PM ; [facility] Maternal history of pure hypercholestero lemia both parents 08/08/2019 Last Documented On 1 12:51PM ; [facility] No family history of malignant female br east neoplasm 08/08/2019 Last Documented On 1 12:51PM ; [facility] No family history of malignant neoplasm of large intestine 08/08/2019 Last Documented On 1 12:51PM ; [facility] No family history of malignant neoplasm of the ovary 08/08/2019 Last Documented On 12:51PM ; [facility] No family history of uterine cancer 07/25 Last Documented On 1 12:51PM ; [facility] Paternal history of diabetes mellitus agustina th parents 08/08/2019 Last Documented On 1 12:51PM ; [facility] Review of Systems Includes: Review of Systems [...] Subscriber Relationship Effect gilberto Dates 1 - [facility] [id number] KEVIN CHAKRABORTY Self Clinical Notes Includes: Clinical Notes from this encounter No Clinical Notes Recorded
--- OUTSIDE RECORDS SUMMARY | 2025-02-08 15:03 | XMS_ITS | Clinical Summary ---
Author Organization [facility] Address [address] [place] [address] Phone Care Team Providers Care Director Organizational Name Role Phone MARIUM العلي, EROS Lucas Unavailable [phone] Reason for Visit and Chief Complaint CHART UPDATE Problems Includes: Problems addressed during this encounter and other active Problems All Visits Onset Date Resolved Date Provider Condition S tatus Breast Neoplasm Malignant 12/26/2020 PABLO TA RN [facility] Active Last Documented On 12/26/2020 12:54PM ; [facility] Note: invasive ductal carcinoma 12/23/20 b x Lichen Sclerosus Et Atrophicus 08/05/2020 PABLO TA RN [place] Active Last Documented On 08/05/2020 2:01PM ; [facility] Note: Unchanged Diabetes Mellitus Type 2 08/05/2020 PABLO TA RN [place] Active Last Documented On 0 2:01PM ; [facility] Hypertension Systemic 08/05/2020 PABLO TA RN [place] Active Last Documented On 0 2:01PM ; [facility] Plan of Treatment No Plan of Treatment [...] 06/21/2019 3:31PM By Rose Ny MA ; [facility] Turmeric 500 MG Oral Capsule 06/21/2019 Provider: Diagnosis: TAKE TWO TABLETS TWICE A DAY Last Documented On 06/21/2019 3:32PM By Rose Ny MA ; [facility] Meloxicam 15 MG Oral Tablet 06/21/2019 Provider: Diagnosis: TAKE ONE TABLET ONCE A DAY Last Documented On 06/21/2019 3:32PM By Rose Ny MA ; [facility] Indomethacin 25 MG Oral Capsule 06/21/2019 Provider: Diagnosis: TAKE ONE CAPSULE 3 TIMES A DAY NEEDED FOR KVNG N Last Documented On 06/21/2019 3:31PM By Rose Ny MA ; [facility] glipiZIDE 5 MG Oral Tablet 06/21/2019 Provider: Diagnosis: TAKE ONE TABLET DAILY Last Documented On 06/21/2019 3:30PM By Rose Ny MA ; [facility] Fluticasone Propionate (Inha l) 50 MCG/BLIST Inhalation Aerosol Powder Breath Activated 06/21/2019 Provider: Diagnosis: INHALE ONE PUFF TWO TIMES A DAY Last Documented On 06/21/2019 3:30PM By Rose Ny MA ; [facility] Cyanocobalamin 500 MCG Oral Tablet 06/21/2019 Provid er: Diagnosis: TAKE ONCE DAILY Last Documented On 06/21/2019 3:28PM By Rose Ny MA ; [facility] cloNIDine HCl 0.1 MG Oral Tablet 06/21/2019 Provider : Diagnosis: TAKE ONE TABLET TWICE A DAY Last Documented On 06/21/2019 3:27PM By Rose Ny MA ; [facility] amLODIPine Besylate 5 MG Oral Tablet 06/21/2019 Prov ider: Diagnosis: TAKE ONE TABLET DAILY Last Documented On 06/21/2019 3:25PM By Rose Ny MA ; [facility] Medications Administered Includes: Administered [...] Time Diagnosis CHART UPDATE PABLO TA RN [facility] 08/07/2020 3:29PM 11:59PM Insurance Includes: Active Insurance Policies Plan Name Member ID Group # Subscriber Relationship Effect gilberto Dates 1 - [facility] [id number] KEVIN CHAKRABORTY Self Clinical Notes Includes: Clinical Notes from this encounter No Clinical Notes Recorded
--- OUTSIDE RECORDS SUMMARY | 2025-02-08 15:03 | XMS_ITS | Clinical Summary ---
Author Organization [facility] Address [address] [place] [address] Care Team Providers Care Ramp Lead Name Role Phone Unavailable Primary Care Provider Unavailabl e Source Comments [facility],non-owned Affiliates and Associated Physician Practices is amultiple site organization consisting of ambulatory clinics and hospital sitesin [place], [place], [place] and [place]. This disclosure is being madepursuant to the Care Everywhere program and may not contain all information available regarding this patient. Last updated 18.[facility] Allergies No known active allergies Social History Tobacco Use Types Packs/Day Years Used Date Smoking Tobacco: Never Alcohol Use Standard Drinks/Week Comments Yes 0 (1 standard drink = 0.6 oz pur e alcohol) occationally Comments Unknown Sex and Gender Information Value Date Recorded Sex Assigned at Not on file Legal Sex Female 6:07 AM [employer] Gender Identity Not on file Sexual [...] 09/07/1981 DTAP/TDAP/TD VACCINES (1 - Tdap) 1982 PNEUMOCOCCAL VACCINE 50+ (1 of 1 - PCV) 2013 ZOSTER VACCINE (1 of 2) 2013 PAP SMEAR 04/17/2014 04/17/2011 (Previously completed) COVID-19 VACCINE (2023-2 5 season) 2024 DEPRESSION SCREENING 10/25/2024 INFLUENZA VACCINE (Season Ended) 2025 Respiratory Syncytial Virus (RSV) Vaccine Pt: or [...] patient's age to complete this topic MENINGOCOCCAL (Group B) VACCINE SHARED DECISION-MAKING Aged Out No longer eligible based on patient's age to complete this topic MENINGOCOCCAL GROUPS A/C/Y/W VACCINE Aged Out No longer eligible b ased on patient's age to complete this topic Insurance SELF PAY NO INSURANCE Member Subscriber Plan / Payer (Ef fective for All Dates) Name:Kevin Chakraborty Member ID:Not on file Relation to Subscriber:Not on file Name:KEVIN CHAKRABORTY Subscriber ID:Not on file (Home) Address: [address] [place] [id number] Payer ID:Not on file Group ID:Not on file Type:Self Pay Address: [facility]
--- OUTSIDE RECORDS SUMMARY | 2025-02-08 15:03 | XMS_ITS | Clinical Summary ---
Author Organization [facility] Address [address] [place] [address] Phone Care Team Providers Care Transfusion Aide Name Role Phone MARIUM العلي, EROS Lucas Unavailable [phone] Reason for Visit and Chief Complaint The [...] Sclerosus Et Atrophicus 08/05/2020 PABLO TA RN [facility] Active Last Documented On 08/05/2020 2:01PM ; [facility] Note: Unchanged Past Visits Onset Date Resolved Date Provider Condition Status Breast Neoplasm Malignant 12/26/2020 PABOL TA RN [place] Active Last Documented On 12/26/2020 12:54PM ; [facility] Note: invasive ductal carcinoma 12/23/20 b x Diabetes Mellitus Type 2 08/05/2020 PABLO TA RN [place] Active Last Documented On 0 2:01PM ; [facility] Hypertension Systemic 08/05/2020 PABLO TA RN [place] Active Last Documented On 0 2:01PM ; [facility] Plan of Treatment No Plan of Treatment Recorded Assessments Includes: Assessments from this encounter Findings - Lichen sclerosus et atrophicus - Last Documented On 08/08/2019 11:21AM ; [facility] Medical Equipment - Implanted Devices Includes: Current Devices No Medical Equipment Recorded Medications Includes: Medications discussed during this encounter and other current Medications Discontinued / Stopped on this date on 06/21/2019 Aspirin 81 MG Oral Tablet Provider: Diagnosis: Last Documented On 08/08/2019 9:14AM By Eloisa LR ; [facility] New / Renewed during this visit PABLO TA RN [place] on 08/08/2019 Clobetasol Propionate 0.05% External Cream Provider: PABLO TA RN Melanie P 90 day supply: 1 tube, 0 refills Diagnosis: Lichen sclerosus et atrophicus as directed apply two times weekly after BID x 1 week then qd use x 1 week Pharmacy: [address] [address] - Last Documented On 9 11:19AM By PABLO MARQUEZ- ; [facility] Clobetasol Propionate 0.05% External Cream Provider: PABLO TA RN Melanie Cook 30 day supply: 1 tube, 2 refills Diagnosis: Lichen sclerosus et atrophicus as directed APPLY BID X 1 WE EKS THEN 1 TIME DAILY X 1 WEEK, THEN 2 TIMES WEEKLY Pharmacy: [facility] [address] , [facility], [address] - Last Documented On 0 3:34PM By PABLO MARQUEZ- ; [facility] Current Medications (continue as prescribed) Lisinopril-hydroCHLOROthiazide 20-12.5 MG Oral Tablet 06/21/2019 Provider: Diagnosis: TAKE 2 TABLETS ONCE DAILY Last Documented On 06/21/2019 3:31PM By Rose Ny MA ; [facility] Turmeric 500 MG Oral Capsule 06/21/2019 Provider: Diagnosis: TAKE TWO TABLETS TWICE A DAY Last Documented On 06/21/2019 3:32PM By Rose Ny MA ; [facility] Meloxicam 15 MG Oral Tablet 06/21/2019 Provider: Diagnosis: TAKE ONE TABLET ONCE A DAY Last Documented On 06/21/2019 3:32PM By Rose Ny MA ; [facility] Indomethacin 25 MG Oral Capsule 06/21/2019 Provider: Diagnosis: TAKE ONE CAPSULE 3 TIMES A DAY NEEDED FOR KVNG N Last Documented On 06/21/2019 3:31PM By Rose Ny MA ; [facility] glipiZIDE 5 MG Oral Tablet 06/21/2019 Provider: Diagnosis: TAKE ONE TABLET DAILY Last Documented On 06/21/2019 3:30PM By Rose Ny MA ; [facility] Fluticasone Propionate (Inha l) 50 MCG/BLIST Inhalation Aerosol Powder Breath Activated 06/21/2019 Provider: Diagnosis: INHALE ONE PUFF TWO TIMES A DAY Last Documented On 06/21/2019 3:30PM By Rose Ny MA ; [facility] Cyanocobalamin 500 MCG Oral Tablet 06/21/2019 Provid er: Diagnosis: TAKE ONCE DAILY Last Documented On 06/21/2019 3:28PM By Rose Ny MA ; [facility] cloNIDine HCl 0.1 MG Oral Tablet 06/21/2019 Provider : Diagnosis: TAKE ONE TABLET TWICE A DAY Last Documented On 06/21/2019 3:27PM By Rose Ny MA ; [facility] amLODIPine Besylate 5 MG Oral Tablet 06/21/2019 Prov ider: Diagnosis: TAKE ONE TABLET DAILY Last Documented On 06/21/2019 3:25PM By Rose Ny MA ; [facility] Past Medications on file Clobetasol Propionate 0.05% External Cream 10/02/2021 - 10/22/2021 Provider: PABLO Navarro [place] Diagnosis: Lichen sclerosus et atrophicus DIRECTED, APPLY 2 TIMES W EEKLY no further refills authorized pt needs annual exam Last Documented On 1 8:07AM By PABLO KNAPP ; [facility] Sulfamethoxazole-Trimethopri m 800-160 MG Oral Tablet 08/05/2020 - 08/19/2020 Provider: PABLO TA RN [place] Diagnosis: Furuncle, unspecified One tablet twice a day ONE TAB 2 TIMES A DAY WIT H FOOD Last Documented On 0 2:05PM By PABLO KNAPP ; [facility] Fluconazole 150 MG Oral Tablet 08/05/2020 - 08/09/2020 Provider: PABLO TA RN [place] Diagnosis: Acute vulvitis 1 daily Pt. is to take 1 day 3 and 1 day 7 of antibiotics Last Documented On 0 2:05PM By PABLO KNAPP ; [facility] Clindamycin HCl 300 MG Oral Capsule 07/17/2019 - 07/24/2019 Provider: PABLO MARQUEZ Diagnosis: Acute vulvitis One tablet twice a day Last Documented On 9 9:57AM By PABLO WOODRUFF ; [facility] Sulfamethoxazole-Trimethopri m 800-160 MG Oral Tablet 07/11/2019 - 07/21/2019 Provider: PABLO OSPINA Diagnosis: Acute vulvitis One tablet twice a day ONE TAB 2 TIMES A DAY WIT H FOOD Last Documented On 9 4:52PM By PABLO WOODRUFF ; [facility] Naproxen 500 MG Oral Tablet 07/11/2019 - 07/18/2019 Provider: PABLO MARQUEZ Diagnosis: Acute vulvitis One tablet twice a day ONE T AB TWICE A DAY WITH FOOD DON'T EXCEED 2 TABS IN 24 HOURS Last Documented On 9 5:24PM By PABLO WOODRUFF ; [facility] Terazol 7 0.4% Vaginal Cream 07/11/2019 - 07/25/2019 Provider: PABLO MARQUEZ Diagnosis: Acute vulvitis as directed 1 KRISH IN VAGINA EVERY NIGHT X 14 apply bid to external genitalia Last Documented On 9 4:52PM By PABLO WOODRUFF ; [facility] Triamcinolone Acetonide 0.1% External Cream 06/21/2019 - 06/28/2019 Provider: PABLO OSPINA Diagnosis: Acute vulvitis as directed PLEASE DISPENSE 80 GM USE 50/50 MIX W/NYSTATIN CREAM AND APPLY TO AFFECTED AREAS 3 TIMES A DAY DIRECTED Last Documented On 9 5:00PM By PABLO WOODRUFF ; [facility] Nystatin 218973 UNIT/GM External Cream 06/21/2019 - 07/12/2019 Provider: PABLO MARQUEZ Diagnosis: Acute vulvitis as directed 50/50 mix with t riamcinolone cream apply THREE TIMES A DAY TO AFFECTED AREAS Last Documented On 9 5:00PM By PABLO WOODRUFF ; [facility] Sulfamethoxazole-Trimethopri m 800-160 MG Oral Tablet 06/21/2019 - 06/28/2019 Provider: PABLO MARQUEZ BC Diagnosis: Furuncle, unspecified One tablet twice a day ONE TAB 2 TIMES A DAY WIT H FOOD Last Documented On 9 5:00PM By PABLO WOODRUFF ; [facility] Terconazole 0.4% Vaginal Cream 06/21/2019 - 07/12/2019 Provider: PABLO MARQUEZ BC Diagnosis: Acute vaginitis as directed one krish in vagin a every night x 7 apply bid to perineum Last Documented On 9 5:00PM By PABLO WOODRUFF ; [facility] Medications Administered Includes: Administered Medications from this encounter No Administered Medications Recorded Vital Signs Includes: Vital Signs from this encounter Vital Name 08/08/2019 09:05A Blood Pressure Sitting L 140/80 BP Cuff Size Regular Height (in) 62 Weight (lb) 232 Body Mass Index (kg/m2) 42.4 Body Surface Area (m2) 2.0 Last Documented: On 08/08/2019 9:10AM ; [facility] Results Includes: Results discussed during this encounter No Results Recorded For Specified Dates History of Present Illness Includes: History of Present Illness from this encounter ALINE CHAKRBAORTY is a 53 year old female. 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[employer] mom recently from brain cancer 08/05/2020 Last Documented On 9 9:05AM ; [facility] Sexually active 1 partner 08/05/2020 Last Documented On 9 9:05AM ; [facility] Single partner x 6 yrs 08/05/2020 Last Documented On 9 9:05AM ; [facility] Alcohol use occa 08/08/2019 Last Documented On 9 11:21AM ; [facility] Not using drugs 08/08/2019 Last Documented On 9 11:21AM ; [facility] Smoking status : Never smoker 08/08/2019 Last Documented On 9 11:21AM ; [facility] Procedures and Surgical History Includes: Procedures from this encounter Procedures Code Diagnosis Performing Provider Service L ocation Service Date education and instructions Last Documented On 9 9:50AM ; [facility] Surgical History Last Updated History of hysterectomy 08/08/2019 Last Documented On 9 11:21AM ; [facility] History of vaginal hysterect albina PARTIAL d/t menorrhagia ovaries intact bilaterally 06/21/2019 Last Documented On 9 9:03AM ; [facility] Medical History Includes: Medical History addressed during this encounter Description Last Updated Sexually active with 1 partners in the l ast year 08/08/2019 Last Documented On 9 11:21AM ; [facility] History of asthma 08/08/2019 Last Documented On 9 11:21AM ; [facility] History of benign essential hypertension 08/08/2019 Last Documented On 9 11:21AM ; [facility] History of type 1 diabetes mellitus 07/25 Last Documented On 9 11:21AM ; [facility] LMP: 2009 08/08/2019 Last Documented On 9 11:21AM ; [facility] Sexually active 08/08/2019 Last Documented On 9 11:21AM ; [facility] History of a DXA of the lateral lumbar s pine was performed 07/04/2019 08/08/2019 Last Documented On 9 11:21AM ; [facility] History of complete colonoscopy 2016 Last Documented On 9 11:21AM ; [facility] History of Pap smear done 07/12/201907/25 Last Documented On 9 11:21AM ; [facility] History of screening mammogram was perfo rmed 05/09/2019 08/08/2019 Last Documented On 9 11:21AM ; [facility] Last pap smear date 06/21/2019 07/11/2019 Last Documented On 9 9:03AM ; [facility] A colonoscopy was performed 2016 [facility] Last Documented On 9 9:03AM ; [facility] Result: normal 06/21/2019 Last Documented On 9 9:03AM ; [facility] High blood pressure ~Diabete s- herself and parents ~Kindey failure- father ~Brain cancer- mother ~Infertility 06/21/2019 Last Documented On 9 9:03AM ; [facility] 1 06/21/2019 Last Documented On 9 9:03AM ; [facility] Last mammogram date: 05/09/2019 9 Last Documented On 9 9:03AM ; [facility] Para 1 06/21/2019 Last Documented On 9 9:03AM ; [facility] Family History Includes: Family History addressed during this encounter Description Last Updated Maternal history of hypertension both pa rtents 08/08/2019 Last Documented On 9 11:21AM ; [facility] Maternal history of pure hypercholestero lemia both parents 08/08/2019 Last Documented On 9 11:21AM ; [facility] No family history of malignant female br east neoplasm 08/08/2019 Last Documented On 9 11:21AM ; [facility] No family history of malignant neoplasm of large intestine 08/08/2019 Last Documented On 9 11:21AM ; [facility] No family history of malignant neoplasm of the ovary 08/08/2019 Last Documented On 9 11:21AM ; [facility] No family history of uterine cancer 07/25 Last Documented On 9 11:21AM ; [facility] Paternal history of diabetes mellitus agustina th parents 08/08/2019 Last Documented On 9 11:21AM ; [facility] Review of Systems Includes: [...] 2 WK CK-UP PABLO TA RN NP [facility] TAX SERVICES SPECIALIST 9 9:02AM 9:38AM Lichen Sclerosus Et Atrophicus Insurance Includes: Active Insurance Policies Plan Name Member ID Group # Subscriber Relationship Effect gilberto Dates 1 - [facility] [id number] KEVIN CHAKRABORTY Self Clinical Notes Includes: Clinical Notes from this encounter No Clinical Notes Recorded
--- OUTSIDE RECORDS SUMMARY | 2025-02-08 15:04 | XMS_ITS | Clinical Summary ---
Author Organization [facility] Address [address] [place] [address] Care Team Providers Care Strip Tank Tender Name Role Phone Kevin Shi MD Primary Care Provider [phone] Allergies Active Allergy Reactions Criticality Noted Date Comments Latex Rash Medium 05/07/2022 Medications cyanocobalamin (Vitamin B-12) 500 mcg tabletIndicati ons:Prevention of Vitamin B12 Deficiency Take 1 tablet (500 mcg total) by mouth daily Active turmeric root extract 500 mg capsule Take by mouth 2 (two) times a day. 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 Currently listed on patient's [...] UNCNTR Assessment & Plan (11/24/2019 8:01 PM RENOVATOR 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): Uncontrolled. Due for repeat hga1c. We discussed [...] daily basis. She was interested and the [employer] 14 day reader and the sample reader was given with refills on the reader. Patient was still not sure about applying the reader ever 14 days.. She will check cost on the reader refills and considerate Asthma 03/10/2014 Overview (01/27/2017): ASTHMA NOS Hyperlipidemia due to type 2 diabetes mellitus 0 03/10/2014 Overview (01/27/2017): PURE HYPERCHOLESTEROLEM Assessment & Plan (11/24/2019 8:02 PM RENOVATOR 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): Due for repeat lipid panel. Ordered today. [...] HYPERTENSION Assessment & Plan (11/24/2019 7:58 PM RENOVATOR 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): Elevated in office today as patient is [...] on file Legal Sex Female 8:35 AM RENOVATOR 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 Gender Identity Not on file Sexual Orientation Not on file Occupation Industry Job Start Date Job End Date Soon to be retired from [employer] March 09 Not on file Not on file Not on file Obstetrics History Para Term AB IAB SAB Ectopic Multiple Livin g Live Births 1 1 1 Date Outcome GA Total Labor Labor/2nd/3rd Weight Sex Type Anes PTL Herminia A1 A5 Name Clin Term Last Filed Vital Signs Vital Sign Reading Time Taken Comments Blood Pressure 144/80 11/03/2023 8:56 AM RENOVATOR 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 Pulse 82 09/06/2023 9:05 AM RENOVATOR 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 Temperature 36.8 C (98.3 F) 09/06/2023 9:05 AM RENOVATOR 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 Respiratory Rate 16 09/06/2023 9:05 AM RENOVATOR 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 Oxygen Saturation 96% 09/06/2023 9:05 AM RENOVATOR 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 Inhaled Oxygen Concentration - - Weight 95.3 [...] 10/21/2022 10/21/2021, 04/18/2019, 04/09/2018, Additional history exists Colon Cancer Screening-Colonoscopy 11/12/2024 11/12/2014, 11/12/2014, 11/12/2014 Influenza Vaccine (Season Ended) 2025 08/01/2023, 07/25/2019, 07/25/2018, Additional history exists Colon Cancer Screening-CT Colonography Discontinued 11/12/2014, 11/12/2014, [...] 2 diabetes mellitus with hyperglycemia, unspecified whether group home insulin use (HCC) HEMOGLOBIN A1C Routine 02/13/2019 11:52 AM CDT Type 2 diabetes mellitus with hyperglycemia, unspecified whether group home insulin use (HCC) LIPID PANEL Routine 04/20/2018 10:14 AM CDT Type 2 diabetes mellitus with hyperglycemia, unspecified whether group home insulin use (HCC) COLONOSCOPY IMAGES 11/12/2014 from Last 3 Months or Most Recently Relevant to Health Maintenance Results * DIABETES EYE EXAM (09/02/2019) Diabetic Eye Exam Normal [facility] Provider MD HEALTH MAINTENANCE Final Result [...] mL/min/1.73m2 *Relative to young adult level If -Tajik multiply value by 1.16. Estimated glomerular filtration [...] ORDERABLES F inal Result Performing Organization Address City/[facility] Co de Phone Number JEFE FOX ([place]) [address] [facility] [place] [address] * (ABNORMAL) Hemoglobin A1c (02/13/2019 11:52 AM CDT) Hgb A1C 7.6(H) 4.0 - 5.6 % JEFE FOX ([place]) Estimated Average Glucose 171 mg/dL JEFE FOX ([place]) Comment: The ADA recommends reporting an estimated Average Glucose (eAG) with all Hemoglobin A1c results using the equation derived from a study of 507 normal and diabetic adults. Minority populations were underrepresented and children were not included. (Diabetes Care 31:6510-2638, 2008). The eAG is not equivalent to a fasting glucose. Blood specimen (specimen) 02/13/2019 11:52 AM CDT 02/13/2019 2:22 PM CDT Narrative JEFE FOX ([place]) - 02/13/2019 2:48 PM CDT Polina Rajput MD LAB BLOOD ORDERABLES F inal Result Performing Organization Address City/[facility] Co de Phone Number JEFE FOX ([place]) 1 [facility] [place] [address] * Lipid panel (04/20/2018 10:14 AM CDT) [...] MD LAB BLOOD ORDERABLES F inal Result [facility] ([place]) [facility] [place] [address] * COLONOSCOPY IMAGES (11/12/2014) Anatomical Region Laterality Modality Other Narrative 11/12/2014 Ordered by an unspecified provider. Historical Provider GI PROCEDURE ORDERABLES F inal Result from Last 3 Months or Most Recently Relevant to Health Maintenance Insurance [facility] CHOICE PLUS Member Subscriber Plan / Payer ( fective 2016-Present) Name:Kevin Chakraborty Relation to Subscriber:Self Name:Kevin Chakraborty Payer ID:[id number] (NAIC) Type:[facility] HMO/PPO Address: [address] CHOICE PLUS [facility] CHOICE PLUS [facility] CHO[facility] PLUS Care Teams Strip Tank Tender Relationship Specialty Start Date End Date Kevin Shi MD PCP - General Family Medicine 10/20/22
--- OUTSIDE RECORDS SUMMARY | 2025-02-08 15:04 | XMS_ITS | Clinical Summary ---
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 Name Role Phone MARIUM العلي, EROS Lucas Unavailable [phone] Reason for Visit and Chief Complaint The Chief Complaint is: 3 month med check on Clobetasol Problems Includes: Problems addressed during this encounter and other active Problems Current Visit Onset Date Resolved Date Provider Conditio n Status Lichen Sclerosus Et Atrophicus 08/05/2020 PABLO TA RN [facility] Active Last Documented On 08/05/2020 2:01PM ; [facility] Note: Unchanged Past Visits Onset Date Resolved Date Provider Condition Status Breast Neoplasm Malignant 12/26/2020 PABLO TA RN [place] Active Last Documented On 12/26/2020 12:54PM ; [facility] Note: invasive ductal carcinoma 12/23/20 b x Diabetes Mellitus Type 2 08/05/2020 PABLO TA RN [place] Active Last Documented On 0 2:01PM ; [facility] Hypertension Systemic 08/05/2020 PABLO TA RN [place] Active Last Documented On 0 2:01PM ; [facility] Plan of Treatment Instructions to patient Instructions for patient : K eep the area around the vulva dry. Allow the area to have exposure to air. Avoid irritants such as fabric softeners and perfumed soaps.~ Last Documented On 0 3:32PM ; [facility] Assessments Includes: Assessments from this encounter Findings - Lichen sclerosus et atrophicus resolving per pt. report - Last Documented On 11/13/2019 3:35PM ; [facility] Instructions Includes: Instructions from this encounter Instructions to patient Instructions for patient : K eep the area around the vulva dry. Allow the area to have exposure to air. Avoid irritants such as fabric softeners and perfumed soaps.~ Last Documented On 0 3:32PM ; [facility] Medical Equipment - Implanted Devices [...] 1 WEEK, THEN 2 TIMES WEEKLY Pharmacy: [facility] [id number] , [place], [id number] - Last Documented On 0 1:55PM By PABLO WOODRUFF ; [facility] Current Medications (continue as prescribed) Lisinopril-hydroCHLOROthiazide 20-12.5 MG Oral Tablet 06/21/2019 Provider: Diagnosis: TAKE 2 TABLETS ONCE DAILY Last Documented On 06/21/2019 3:31PM By Rose Ny MA ; [facility] Turmeric 500 MG Oral Capsule 06/21/2019 Provider: Diagnosis: TAKE TWO TABLETS TWICE A DAY Last Documented On 06/21/2019 3:32PM By Rose Ny MA ; [facility] Meloxicam 15 MG Oral Tablet 06/21/2019 Provider: Diagnosis: TAKE ONE TABLET ONCE A DAY Last Documented On 06/21/2019 3:32PM By Rose Ny MA ; [facility] Indomethacin 25 MG Oral Capsule 06/21/2019 Provider: Diagnosis: TAKE ONE CAPSULE 3 TIMES A DAY NEEDED FOR KVNG N Last Documented On 06/21/2019 3:31PM By Rose Ny MA ; [facility] glipiZIDE 5 MG Oral Tablet 06/21/2019 Provider: Diagnosis: TAKE ONE TABLET DAILY Last Documented On 06/21/2019 3:30PM By Rose Ny MA ; [facility] Fluticasone Propionate (Inha l) [...] 2:05PM By PABLO WOODRUFF ; [facility] Fluconazole 150 MG Oral Tablet 08/05/2020 - 08/09/2020 Provider: PABLO TA RN [place] Diagnosis: Acute vulvitis 1 daily Pt. is to take 1 day 3 and 1 day 7 of antibiotics Last Documented On 0 2:05PM By PABLO WOODRUFF ; [facility] Clobetasol Propionate 0.05% External Cream 08/08/2019 - 11/06/2019 Provider: PABLO MARQUEZ Diagnosis: Lichen sclerosus et atrophicus as directed apply two times weekly after BID x 1 week then qd use x 1 week Last Documented On 9 11:19AM By PABLO WOODRUFF ; [facility] Clindamycin HCl 300 MG Oral Capsule 07/17/2019 - 07/24/2019 Provider: PABLO MARQUEZ Diagnosis: Acute vulvitis One tablet twice a day Last Documented On 9 9:57AM By PABLO WOODRUFF ; [facility] Sulfamethoxazole-Trimethopri m 800-160 MG Oral Tablet 07/11/2019 - 07/21/2019 Provider: PABLO MARQUEZ Diagnosis: Acute vulvitis One tablet twice a day ONE TAB 2 TIMES A DAY WIT H FOOD Last Documented On 9 4:52PM By PABLO KNAPP ; [facility] Naproxen 500 MG Oral Tablet 07/11/2019 - 07/18/2019 Provider: PABLO MARQUEZ Diagnosis: Acute vulvitis One tablet twice a day ONE T AB TWICE A DAY WITH FOOD DON'T EXCEED 2 TABS IN 24 HOURS Last Documented On 9 5:24PM By PABLO KNAPP ; [facility] Terazol 7 0.4% [...] PABLO WOODRUFF ; [facility] Nystatin 224626 UNIT/GM External Cream 06/21/2019 - 07/12/2019 Provider: [...] On 9 5:00PM By PABLO WOODRUFF ; [facility] Terconazole 0.4% Vaginal Cream 06/21/2019 - 07/12/2019 Provider: PABLO MARQUEZ BC Diagnosis: Acute vaginitis as directed one krish in vagin a every night x 7 apply bid to perineum Last Documented On 9 5:00PM By PABLO WOODRUFF ; [facility] Medications Administered Includes: Administered Medications from this encounter No Administered Medications Recorded Vital Signs Includes: Vital Signs from this encounter Vital Name 11/13/2019 03:22P 11/13/2019 02: 51P Blood Pressure Sitting (mmHg) 120/76 Height (in) 61 62 Weight (lb) 235 Body Mass Index (kg/m2) 44.4 Body Surface Area (m2) 2.0 Last Documented: On 11/13/2019 3:23PM ; [facility] On 11/13/2019 2:51PM ; [facility] Results Includes: Results discussed [...] 08/05/2020 Last Documented On 0 2:51PM ; [facility] Alcohol use occa 08/05/2020 Last Documented On 0 2:51PM ; [facility] Alcohol use: 2 drinks or less per day oc c 08/05/2020 Last Documented On 0 2:51PM ; [facility] Education history 08/05/2020 Last Documented On 0 2:51PM ; [facility] Not using drugs 08/05/2020 Last Documented On 0 2:51PM ; [facility] 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[employer] mom recently from brain cancer 08/05/2020 Last Documented On 0 2:51PM ; [facility] Sexually active 1 partner 08/05/2020 Last Documented On 0 2:51PM ; [facility] Single partner x 6 yrs 08/05/2020 Last Documented On 0 2:51PM ; [facility] Smoking status : Never smoker 08/05/2020 Last Documented On 0 2:51PM ; [facility] Procedures and Surgical History Includes: Procedures from this encounter Procedures Code Diagnosis Performing Provider Service L ocation Service Date education and instructions Last Documented On 0 3:33PM ; [facility] Clinical summary provided to patient Last Documented On 0 3:33PM ; [facility] Surgical History Last Updated History of hysterectomy 08/08/2019 Last Documented On 0 2:50PM ; [facility] History of vaginal hysterect albina PARTIAL d/t menorrhagia ovaries intact bilaterally 06/21/2019 Last Documented On 0 2:50PM ; [facility] Medical History Includes: Medical History addressed during this encounter Description Last Updated Sexually active with 1 partners in the l ast year 08/08/2019 Last Documented On 0 2:50PM ; [facility] History of asthma 08/08/2019 Last Documented On 0 2:50PM ; [facility] History of benign essential hypertension 08/08/2019 Last Documented On 0 2:50PM ; [facility] History of type 1 diabetes mellitus 07/25 Last Documented On 0 2:50PM ; [facility] LMP: [id number]/08/2019 Last Documented On 0 2:50PM ; [facility] Sexually active 08/08/2019 Last Documented On 0 2:50PM ; [facility] History of a DXA of the lateral lumbar s pine was performed 07/04/2019 08/08/2019 Last Documented On 0 2:50PM ; [facility] History of complete colonoscopy 2016 Last Documented On 0 2:50PM ; [facility] History of Pap smear done 07/12/201907/25 Last Documented On 0 2:50PM ; [facility] History of screening mammogram was perfo rmed 05/09/2019 08/08/2019 Last Documented On 0 2:50PM ; [facility] Last pap smear date 06/21/2019 07/11/2019 Last Documented On 0 2:50PM ; [facility] A colonoscopy was performed 2017 [facility] Last Documented On 0 2:50PM ; [facility] Result: normal 06/21/2019 Last Documented On 0 2:50PM ; [facility] High blood pressure ~Diabete s- herself and parents ~Kindey failure- father ~Brain cancer- mother ~Infertility 06/21/2019 Last Documented On 0 2:50PM ; [facility] 1 06/21/2019 Last Documented On 0 2:50PM ; [facility] Last mammogram date: 05/09/2019 9 Last Documented On 0 2:50PM ; [facility] Para 1 06/21/2019 Last Documented On 0 2:50PM ; [facility] Family History Includes: Family History addressed during this encounter Description Last Updated Maternal history of hypertension both pa rtents 08/08/2019 Last Documented On 0 2:50PM ; [facility] Maternal history of pure hypercholestero lemia both parents 08/08/2019 Last Documented On 0 2:50PM ; [facility] Paternal history of diabetes mellitus agustina th parents 08/08/2019 Last Documented On 0 2:50PM ; [facility] Review of Systems Includes: Review of Systems [...] Diagnosis MED CHECK PABLO TA RN NP [facility] 0 2:26PM 3:31PM Lichen Sclerosus Et Atrophicus Insurance Includes: Active Insurance Policies Plan Name Member ID Group # Subscriber Relationship Effect gilberto Dates 1 - [facility] [id number] KEVIN CHAKRABORTY Self Clinical Notes Includes: Clinical Notes from this encounter No Clinical Notes Recorded
--- OUTSIDE RECORDS SUMMARY | 2025-02-08 15:04 | XMS_ITS ---
Author Organization [facility] Address [address] [place] [address] Phone Care Team Providers Care Coal Digger Name Role Phone MARIUM العلي, EROS Lucas Unavailable [phone] Problems Includes: Active, inactive, and resolved Problems All Visits Onset Date Resolved Date Provider Condition S tatus Breast Neoplasm Malignant 12/26/2020 PABLO TA RN [facility] Active Last Documented On 12/26/2020 12:54PM ; [facility] Note: invasive ductal carcinoma 12/23/20 b x Lichen Sclerosus Et Atrophicus 08/05/2020 PABLO TA RN [facility] Active Last Documented On 08/05/2020 2:01PM ; [facility] Note: Unchanged Diabetes Mellitus Type 2 08/05/2020 PABLO TA RN [facility] Active Last Documented On 0 2:01PM ; [facility] Hypertension Systemic 08/05/2020 PABLO TA RN [place] Active Last Documented On 0 2:01PM ; [facility] Plan of Treatment Findings Encounter Date Ordered Clinical summary pro vided to patient WELL WOMAN EXAM with PABLO TA RN [place] 08/05/2020 Last Documented On 0 2:06PM ; [facility] Ordered weight loss diet WELL WOMAN EXAM with ISABELLA TA RN [facility] 08/05/2020 Last Documented On 0 2:06PM ; [facility] Ordered Clinical summary pro vided to patient 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 PABLO TA RN [place] 06/21/2019 Last Documented On 9 5:20PM ; [facility] Ordered weight loss diet 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 Allow the area to have exposure to air. Avoid irritants such as fabric softeners and perfumed soaps.~ Last Documented On 0 3:32PM ; [facility] Lose weight Last Documented On 9 5:08PM ; [facility] Instructed to call if excess gilberto bleeding or abdominal/pelvic pain Last Documented On 9 5:08PM ; [facility] Instructions For Patient: Mo nthly Self Breast Exam Last Documented On 9 5:08PM ; [facility] Recommend diet and exercise at least 30 min three times per week Last Documented On 9 5:08PM ; [facility] Education and Decision Aids were provided during visit for: Patient Education: Daily franny cium and vitamin D Last Documented On 0 1:37PM ; [facility] Patient Education: Daily franny cium and vitamin D Last Documented On 9 5:08PM ; [facility] Assessments Includes: Assessments for all patient encounters Findings Encounter Date Lichen sclerosus et atrophicus WELL WOMA N EXAM with PABLO TA RN [place] 08/05/2020 Last Documented On 0 2:06PM ; [facility] Routine gynecological exam w ith abnormal findings WELL WOMAN EXAM with PABLO TA RN [place] 08/05/2020 Last Documented On 0 2:06PM ; [facility] Lichen sclerosus et atrophic us resolving per pt. report MED CHECK with PABLO MARQUEZ 11/13/2019 Last Documented On 0 3:35PM ; [facility] Lichen sclerosus et atrophicus 2 WK CK-UP with Shayy TA RN [facility] 08/08/2019 Last Documented On 9 11:21AM ; [facility] Assessment of abnormal Pap s mear of cervix PROCEDURE OFFICE with PABLO TA RN [facility] 07/11/2019 Last Documented On 9 5:14PM ; [facility] Vaginitis PROCEDURE OFFICE with PABLO BRIGGS RN [facility] 07/11/2019 Last Documented On 9 5:14PM ; [facility] Vulvitis r/o lichens PROCEDURE OFFICE with PABLO TA RN [facility] 07/11/2019 Last Documented On 9 5:14PM ; [facility] Furunculosis 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 PABLO TA RN [facility] 06/21/2019 Last Documented On 9 5:20PM ; [facility] Routine gynecological exam w ith abnormal findings 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 TA RN [facility] 06/21/2019 Last Documented On 9 5:20PM ; [facility] Vaginitis 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 TA RN [facility] 06/21/2019 Last Documented On 9 5:20PM ; [facility] Vulvar ulceration 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 PABLO Mcintyre RN [facility] 06/21/2019 Last Documented On 9 5:20PM ; [facility] Vulvitis r/o lichens 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 PABLO PEREZ RN [facility] 06/21/2019 Last Documented On 9 5:20PM ; [facility] Instructions Includes: Instructions for all patient encounters Instructions to patient Instructed to call if excess gilberto bleeding or abdominal/pelvic pain Last Documented On 0 1:37PM ; [facility] Instructions For Patient: Mo nthly Self Breast Exam Last Documented On 0 1:37PM ; [facility] Recommend diet and exercise at least 30 min three times per week Last Documented On 0 1:37PM ; [facility] Instructions for patient : K eep the area around the vulva dry. Allow the area to have exposure to air. Avoid irritants such as fabric softeners and perfumed soaps.~ Last Documented On 0 3:32PM ; [facility] Lose weight Last Documented On 9 5:08PM ; [facility] Instructed to call if excess gilberto bleeding or abdominal/pelvic pain Last Documented On 9 5:08PM ; [facility] Instructions For Patient: Mo nthly Self Breast Exam Last Documented On 9 5:08PM ; [facility] Recommend diet and exercise at least 30 min three times per week Last Documented On 9 5:08PM ; [facility] Education and Decision Aids were provided during visit for: Patient Education: Daily franny cium and vitamin D Last Documented On 0 1:37PM ; [facility] Patient Education: Daily franny cium and vitamin D Last Documented On 9 5:08PM ; [facility] Medical Equipment - Implanted Devices Includes: Current and historical Devices No Medical Equipment Recorded Medications Includes: Current and historical Medications Current Medications (continue as prescribed) Lisinopril-hydroCHLOROthiazide 20-12.5 MG Oral Tablet 06/21/2019 Provider: Diagnosis: TAKE 2 TABLETS ONCE DAILY Last Documented On 06/21/2019 3:31PM By Rose Ny MA ; [facility] Turmeric 500 MG Oral Capsule 06/21/2019 Provider: Diagnosis: TAKE TWO TABLETS TWICE A DAY Last Documented On 06/21/2019 3:32PM By Rose Ny MA ; [facility] Meloxicam 15 MG Oral Tablet 06/21/2019 Provider: Diagnosis: TAKE ONE TABLET ONCE A DAY Last Documented On 06/21/2019 3:32PM By Rose Ny MA ; [facility] Indomethacin 25 MG Oral Capsule 06/21/2019 Provider: Diagnosis: TAKE ONE CAPSULE 3 TIMES A DAY NEEDED FOR KVNG N Last Documented On 06/21/2019 3:31PM By Rose Ny MA ; [facility] glipiZIDE 5 MG Oral Tablet 06/21/2019 Provider: Diagnosis: TAKE ONE TABLET DAILY Last Documented On 06/21/2019 3:30PM By Rose Ny MA ; [facility] Fluticasone Propionate (Inha l) 50 MCG/BLIST Inhalation Aerosol Powder Breath Activated 06/21/2019 Provider: Diagnosis: INHALE ONE PUFF TWO TIMES A DAY Last Documented On 06/21/2019 3:30PM By Rose Ny MA ; [facility] Cyanocobalamin 500 MCG Oral Tablet 06/21/2019 Provid er: Diagnosis: TAKE ONCE DAILY Last Documented On 06/21/2019 3:28PM By Rose Ny MA ; [facility] cloNIDine HCl 0.1 MG Oral Tablet 06/21/2019 Provider : Diagnosis: TAKE ONE TABLET TWICE A DAY Last Documented On 06/21/2019 3:27PM By Rose Ny MA ; [facility] amLODIPine Besylate 5 MG Oral Tablet 06/21/2019 Prov ider: Diagnosis: TAKE ONE TABLET DAILY Last Documented On 06/21/2019 3:25PM By Rose Ny MA ; [facility] Past Medications on file Clobetasol Propionate 0.05% External Cream 10/02/2021 - 10/22/2021 Provider: PABLO MARQUEZ Diagnosis: Lichen sclerosus et atrophicus DIRECTED, APPLY 2 TIMES W SHELBY no further refills authorized pt needs annual exam Last Documented On 1 8:07AM By PABLO KNAPP ; [facility] Clobetasol Propionate 0.05% External Cream 08/05/2020 - 10/02/2021 Provider: PABLO MARQUEZ Diagnosis: Lichen sclerosus et atrophicus as directed APPLY 3 times we ekly to ext. genitalia Last Documented On 1 8:07AM By PABLO WOODRUFF ; [facility] Clobetasol Propionate 0.05% External Cream 08/05/2020 - 08/05/2020 Provider: PABLO MARQUEZ Diagnosis: Lichen sclerosus et atrophicus as directed APPLY 3 times we ekly to ext. genitalia Last Documented On 0 1:56PM By PABLO WOODRUFF ; [facility] Sulfamethoxazole-Trimethopri m 800-160 MG Oral Tablet 08/05/2020 - 08/19/2020 Provider: PABLO TA RN [place] Diagnosis: Furuncle, unspecified One tablet twice a day ONE TAB 2 TIMES A DAY WIT H FOOD Last Documented On 0 2:05PM By PABLO WOODRUFF ; [facility] Fluconazole 150 MG Oral Tablet 08/05/2020 - 08/09/2020 Provider: PABLO TA RN [place] Diagnosis: Acute vulvitis 1 daily Pt. is to take 1 day 3 and 1 day 7 of antibiotics Last Documented On 0 2:05PM By PABLO KNAPP ; [facility] Clobetasol Propionate 0.05% External Cream 11/13/2019 - 08/05/2020 Provider: PABLO Navarro [place] Diagnosis: Lichen sclerosus et atrophicus as directed APPLY BID X 1 WE EKS THEN 1 TIME DAILY X 1 WEEK, THEN 2 TIMES WEEKLY Last Documented On 0 1:55PM By PABLO KNAPP ; [facility] Clobetasol Propionate 0.05% External Cream 08/08/2019 - 11/06/2019 Provider: PABLO Navarro [place] Diagnosis: Lichen sclerosus et atrophicus as directed apply two times weekly after BID x 1 week then qd use x 1 week Last Documented On 9 11:19AM By PABLO KNAPP ; [facility] Clobetasol Propionate 0.05% External Cream 08/08/2019 - 11/13/2019 Provider: PABLO Navarro [place] Diagnosis: Lichen sclerosus et atrophicus as directed APPLY BID X 1 WE EKS THEN 1 TIME DAILY X 1 WEEK, THEN 2 TIMES WEEKLY Last Documented On 0 3:34PM By PABLO KNAPP ; [facility] Clindamycin HCl 300 MG Oral Capsule 07/17/2019 - 07/24/2019 Provider: PABLO TA RN [place] Diagnosis: Acute vulvitis One tablet twice a day Last Documented On 9 9:57AM By PABLO KNAPP ; [facility] Sulfamethoxazole-Trimethopri m 800-160 MG Oral Tablet 07/11/2019 - 07/21/2019 Provider: PABLO TA RN [place] Diagnosis: Acute vulvitis One tablet twice a day ONE TAB 2 TIMES A DAY WIT H FOOD Last Documented On 9 4:52PM By PABLO KNAPP ; [facility] Naproxen 500 MG Oral Tablet 07/11/2019 - 07/18/2019 Provider: PABLO MARQUEZ Diagnosis: Acute vulvitis One tablet twice a day ONE T AB TWICE A DAY WITH FOOD DON'T EXCEED 2 TABS IN 24 HOURS Last Documented On 9 5:24PM By PABLO WOODRUFF ; [facility] Terazol 7 0.4% Vaginal Cream 07/11/2019 - 07/25/2019 Provider: APBLO MARQUEZ Diagnosis: Acute vulvitis as directed 1 KRISH IN VAGINA EVERY NIGHT X 14 apply bid to external genitalia Last Documented On 9 4:52PM By PABLO WOODRUFF ; [facility] Triamcinolone Acetonide 0.1% External Cream 06/21/2019 - 06/28/2019 Provider: PABLO MARQUEZ Diagnosis: Acute vulvitis as directed PLEASE DISPENSE 80 GM USE 50/50 MIX W/NYSTATIN CREAM AND APPLY TO AFFECTED AREAS 3 TIMES A DAY DIRECTED Last Documented On 9 5:00PM By PABLO KNAPP ; [facility] Nystatin 179489 UNIT/GM External Cream 06/21/2019 - 07/12/2019 Provider: PABLO TA RN [place] Diagnosis: Acute vulvitis as directed 50/50 mix with t riamcinolone cream apply THREE TIMES A DAY TO AFFECTED AREAS Last Documented On 9 5:00PM By PABLO WOODRUFF ; [facility] Sulfamethoxazole-Trimethopri m 800-160 MG Oral Tablet 06/21/2019 - 06/28/2019 Provider: PABLO MARQUEZ Diagnosis: Furuncle, unspecified One tablet twice a day ONE TAB 2 TIMES A DAY WIT H FOOD Last Documented On 9 5:00PM By PABLO WOODRUFF ; [facility] Terconazole 0.4% Vaginal Cream 06/21/2019 - 07/12/2019 Provider: PABLO MARQUEZ Diagnosis: Acute vaginitis as directed one krish in vagin a every night x 7 apply bid to perineum Last Documented On 9 5:00PM By PABLO WOODRUFF ; [facility] Aspirin 81 MG Oral Tablet 06/21/2019 - 08/08/2019 Prov ider: Diagnosis: TAKE ONE TABLET DAILY OR NEEDED Last Documented On 08/08/2019 9:14AM By Eloisa LR ; [facility] Medications Administered Includes: Administered Medications in patient's chart No Administered Medications Recorded Results Includes: Results from 02/09/2024 through 02/08/2025 No Results Recorded For Specified Dates History of Present Illness History of Present Illness not supported for this document type No History of Present Illness Recorded Social History Description Last Updated Activities 08/05/2020 Last Documented On 0 2:06PM ; [facility] Alcohol use occa 08/05/2020 Last Documented On 0 2:06PM ; [facility] Alcohol use: 2 drinks or less per day oc c 08/05/2020 Last Documented On 0 2:06PM ; [facility] Education history 08/05/2020 Last Documented On 0 2:06PM ; [facility] Non-smoker 08/05/2020 Last Documented On 0 2:06PM ; [facility] Not a smoker 08/05/2020 Last Documented On 0 2:06PM ; [facility] Not using drugs 08/05/2020 Last Documented On 0 2:06PM ; [facility] 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[employer] mom recently from brain cancer 08/05/2020 Last Documented On 0 2:06PM ; [facility] Sexually active 08/05/2020 Last Documented On 0 2:06PM ; [facility] Single partner x 6 yrs 08/05/2020 Last Documented On 0 2:06PM ; [facility] Smoking status : Never smoker 08/05/2020 Last Documented On 0 2:06PM ; [facility] Procedures and Surgical History Surgical History Last Updated History of hysterectomy 08/08/2019 Last Documented On 9 11:21AM ; [facility] History of vaginal hysterect albina PARTIAL d/t menorrhagia ovaries intact bilaterally 06/21/2019 Last Documented On 9 5:20PM ; [facility] Medical History Includes: Medical History in patient's chart Description Last Updated Sexually active with 1 partners in the l ast year 08/08/2019 Last Documented On 9 11:21AM ; [facility] History of asthma 08/08/2019 Last Documented On 9 11:21AM ; [facility] History of benign essential hypertension 08/08/2019 Last Documented On 9 11:21AM ; [facility] History of type 1 diabetes mellitus 07/25 Last Documented On 9 11:21AM ; [facility] LMP: 2009 08/08/2019 Last Documented On 9 11:21AM ; [facility] Sexually active 08/08/2019 Last Documented On 9 11:21AM ; [facility] History of a DXA of the lateral lumbar s pine was performed 07/04/2019 08/08/2019 Last Documented On 9 11:21AM ; [facility] History of complete colonoscopy 2016 Last Documented On 9 11:21AM ; [facility] History of Pap smear done 07/12/201907/25 Last Documented On 9 11:21AM ; [facility] History of screening mammogram was perfo rmed 05/09/2019 08/08/2019 Last Documented On 9 11:21AM ; [facility] Last pap smear date 06/21/2019 07/11/2019 Last Documented On 9 5:14PM ; [facility] A colonoscopy was performed 2016 [facility] Last Documented On 9 5:20PM ; [facility] Result: normal 06/21/2019 Last Documented On 9 5:20PM ; [facility] High blood pressure ~Diabete s- herself and parents ~Kindey failure- father ~Brain cancer- mother ~Infertility 06/21/2019 Last Documented On 9 5:20PM ; [facility] 1 06/21/2019 Last Documented On 9 5:20PM ; [facility] Last mammogram date: 05/09/2019 9 Last Documented On 9 5:20PM ; [facility] Para 1 06/21/2019 Last Documented On 9 5:20PM ; [facility] Family History Includes: Family History in patient's chart Description Last Updated Maternal history of hypertension both pa rtents 08/08/2019 Last Documented On 9 11:21AM ; [facility] Maternal history of pure hypercholestero lemia both parents 08/08/2019 Last Documented On 9 11:21AM ; [facility] No family history of malignant female br east neoplasm 08/08/2019 Last Documented On 9 11:21AM ; [facility] No family history of malignant neoplasm of large intestine 08/08/2019 Last Documented On 9 11:21AM ; [facility] No family history of malignant neoplasm of the ovary 08/08/2019 Last Documented On 9 11:21AM ; [facility] No family history of uterine cancer 07/25 Last Documented On 9 11:21AM ; [facility] Paternal history of diabetes mellitus agustina th parents 08/08/2019 Last Documented On 9 11:21AM ; [facility] Review of Systems Review of Systems [...] Subscriber Relationship Effect gilberto Dates 1 - [facility] [phone] KEVIN CHAKRABORTY Self Clinical Notes Includes: Signed Clinical Notes starting from 11/13/2022 No Clinical Notes Recorded
[2025-02-08 15:07] LABS: Basophils Percent Auto 0.1 % (0.2-1.2); Hematocrit 39.1 % (37.0-47.0); Hemoglobin 12.6 g/dL (12.0-15.0); Immature Granulocyte Absolute 0.02 K/mm3 (0.00-0.031); Immature Granulocyte Percent A 0.3 % (0-0.5); Lymphocytes Percent Auto 21.9 % (18.3-44.2); Mean Corpuscular HGB Conc 32.2 g/dl (32-36); Mean Corpuscular Hemoglobin 27.2 pg (26-34); Mean Corpuscular Volume 84.4 fl (80-100); Mean Platelet Volume 9.7 fl (7.4-10.4); Monocytes Absolute Auto 0.5 K/mm3 (0.1-0.6); Monocytes Percent Auto 7.7 % (2.6-8.5); Neutrophils Absolute Auto 4.8 K/mm3 (1.3-6.7); Platelet Count Result 259 k/mm3 (150-375); Red Blood Count 4.63 M/mm3 (4.2-5.4); Red Cell Distribution Width 13.2 % (11.5-14.5); White Blood Count 6.9 K/mm3 (4.5-10.0)
[2025-02-08 16:56] LABS: Alanine Aminotransferase 26 U/L (6-35); Albumin Level 4.1 g/dL (3.5-5.1); Alkaline Phosphatase 108 U/L (38-126); Anion Gap 7 mmol/L (4-12); Aspartate Amino Transferase 36 U/L (14-36); Bilirubin,Total 0.3 mg/dL (0.2-1.3); Blood Urea Nitrogen 10 mg/dL (7-17); Carbon Dioxide 27 mmol/L (22-30); Chloride 105 mmol/L (98-107); Estimated Glomerular Filt Rate > 60; Glucose 92 mg/dL (65-110); Potassium 4.2 mmol/L (3.4-5.0); Sodium 139 mmol/L (137-145)
[2025-02-09 08:19] LABS: CA 15-3 15 U/mL (<32)
== END 2025-02-08 14:55 | disposition home or self-care (01) ==
LOC: ANHLAB 14:55
PROVIDERS: PCP Family Medicine; Visit Provider Internal Medicine Hematology & Oncology
DX: C50.012 Malignant neoplasm of nipple and areola, left female breast (principal); Z17.0 Estrogen receptor positive status [ER+]
CPT/HCPCS: 36415; 80053; 85025; 86300

== ENCOUNTER 2025-08-17 10:49 | Outpatient (CLI) | payer OTHER, SELFPAY ==
--- OUTSIDE RECORDS SUMMARY | 2025-08-16 11:30 | XMS_ITS | Encounter Summary ---
Author Organization [facility] Address [address] [facility] [address] [place] [address] Care Team Providers Care Singe Winder Name Role Phone George Jeff MD Primary Care Provider + Reason for Visit * Reason Comments New Patient Encounter Details Date Type Department Care Team (Late st Contact Info) Description 08/16/2025 11:30 AM CDT Office Visit [facility] Primary Care at [address] [place] [id number] George Jeff MD [address] [place] [id number] Encounter for screening mammogram for malignant neoplasm of breast (Primary Dx); Type 2 diabetes mellitus without complication, without long-term current use of insulin (HCC); Encounter for immunization; Need for vaccination; Mild persistent asthma, unspecified whether complicated; Hyperlipidemia due to type 2 diabetes mellitus (HCC); Hypertension associated with diabetes (HCC); S/P YEHUDA (total abdominal hysterectomy); Obesity, morbid; Malignant neoplasm of left female breast, unspecified estrogen receptor status, unspecified site of breast (HCC); Need for hepatitis C screening test; Screening for thyroid disorder Social History Tobacco Use Types Packs/Day Years Used Date Smoking Tobacco: Never Smokeless Tobacco: Never Alcohol Use Standard Drinks/Week Comments Never 0 (1 standard drink = 0.6 oz pur e alcohol) PHQ-2 Answer Date Recorded PHQ-2 Total Score (If total score is 3 or more points, staff should administer the PHQ-9) 2 08/16/2025 PHQ-9 Answer Date Recorded PHQ-9 Total Score 7 08/16/2025 AUDIT-C Answer Date Recorded Q1: How often do you have a drink containing alcohol? Never 08/16/2025 Q2: How many drinks containi ng alcohol do you have on a typical day when you are drinking? Patient does not drink Q3: How often do you have si x or more drinks on one occasion? 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 Gender Identity Not on file Sexual Orientation Not on file Occupation Industry Job Start Date Job End Date Soon to be retired from [employer] March 09 Not on file Not on file Not on file documented as of this encounter Last Filed Vital Signs Vital Sign Reading Time Taken Comments Blood Pressure 142/82 08/16/2025 11:21 AM CDT Pulse 83 08/16/2025 11:21 AM CDT Temperature 36.3 C (97.3 F) 08/16/2025 11:21 AM CDT Respiratory Rate - - Oxygen Saturation 96% 08/16/2025 11:21 AM CDT Inhaled Oxygen Concentration - - Weight 97.5 kg (215 lb) 08/16/2025 11:21 AM CDT Height 157.5 cm (5' 2) 08/16/2025 11:21 AM CDT Body Mass Index 39.32 08/16/2025 11:21 AM CDT documented in this encounter Functional Status * AUDIT-C Score Answer Date of Assessment Author 0 08/16/2025 11:33 AM CDT Amanda Archer i, MA * Question Answer Date of Assessment Author Q1: How often do you have a drink containing alcohol? Never 08/16/2025 11:33 AM BAILEET Bev Whitt MA Q2: How many drinks containing alcohol do you have on a typical day when you are drinking? Patient does not drink 08/16/2025 11:33 AM BAILEET Amanda Whitt MA Q3: How often do you have six or more drinks on one occasion? Never 08/16/2025 11:33 AM BAILEEBev Harmon MA documented as of this encounter Patient Instructions * Patient Instructions* George Jeff MD - 08/16/2025 11:30 AM CDT We also wanted to let you know how much we appreciated you allowing us to be part of your healthcare journey today. Your trust in us means so much. My medical assistants and our [facility] team are honored to support your health and well- being, and hope that you received EXCELLENT care. If you have any questions or concerns, please do not hesitate to reach out to us at [phone]. Additionally, you may be contacted asking about your experience, and we would be grateful to hear how we did in providing you with EXCELLENT care. With our warmest wishes for your health and happiness, Dr. Jeff and [facility] Team documented in this encounter Ordered Prescriptions Prescription Sig Dispense Quantity Refills Last Filled Start Date End Date dulaglutide (TRULICITY) 1.5 mg/0.5 mL pen injectorIndications :type 2 diabetes mellitus Inject 0.5 mL (1.5 mg total) under the skin every 7 days 6 mL 08/16/2025 metFORMIN (GLUCOPHAGE) 500 mg tablet Take 1 tablet (500 mg total) by mouth daily 90 tablet 08/16/2025 documented in this encounter Miscellaneous Notes * Assessment & Plan Note - George Jeff MD - 08/16/2025 11:30 AM CDT Associated Problem(s): Type 2 diabetes mellitus, without long-term current use of insulin (HCC) Orders: Albumin Creatinine Ratio, Urine; Future POCT hemoglobin A1c * Assessment & Plan Note - George Jeff MD - 08/16/2025 11:30 AM CDT Associated Problem(s): Mild persistent asthma * Assessment & Plan Note - George eJff MD - 08/16/2025 11:30 AM CDT Associated Problem(s): Hyperlipidemia due to type 2 diabetes mellitus (HCC) Orders: Lipid panel; Future * Assessment & Plan Note - George Jeff MD - 08/16/2025 11:30 AM CDT Associated Problem(s): S/P YEHUDA (total abdominal hysterectomy) * Assessment & Plan Note - George Jeff MD - 08/16/2025 11:30 AM CDT Associated Problem(s): Obesity, morbid * Assessment & Plan Note - George Jeff MD - 08/16/2025 11:30 AM CDT Associated Problem(s): Malignant neoplasm of left female breast (HCC) documented in this encounter Plan of Treatment Scheduled Orders Name Type Priority Associated Diagnoses Orde r Schedule Thyroid Function [facility] Lab Routine Screening for thyroid disorder Expected: 08/16/2025, Expires: 08/15/2026 Lipid panel Lab Routine Hyperlipidemia due to type 2 diabetes mellitus (HCC) Expected: 08/16/2025, Expires: 08/15/2026 Comprehensive metabolic panel Lab Routine Hypertension associated with diabetes (HCC) Expected: 08/19/2025, Expires: 08/16/2026 documented as of this encounter Procedures Procedure Name Priority Date/Time Associated Diagnosis Comments POCT HEMOGLOBIN A1C Routine 08/16/2025 1 2:21 PM CDT Type 2 diabetes mellitus without complication, without long-term current use of insulin (HCC) documented in this encounter Results * Albumin Creatinine Ratio, Urine (08/16/2025 12:36 PM CDT) Albumin Ur <12.0 mg/L Comment: Interpretive Data No reference range established. Current interpretive data was last revised 2019. Testing performed by: [facility], [address] [place] [address]., [id number] Creatinine Ur 182.3 mg/dL [facility] Comment: Interpretive Data No reference range established. Current interpretive data was last revised 2019. Testing performed by: [address] [address] Albumin Creatinine Ratio, Ur <7 1 - 29 mg/g [facility] Comment:Testing performed by : [address] [address] Urine 08/16/2025 12:3 6 PM CDT 08/16/2025 5:35 PM CDT George Jeff MD LAB URINE ORDERABLES Fin al Result Performing Organization Address City/State/[facility] Co de Phone Number [address] [place] [address] * (ABNORMAL) POCT hemoglobin A1c (08/16/2025 12:21 PM CDT) Pathologist [facility] Hemoglobin A1C, POC 6.1(A) 4.0 - 5.6 % Blood 08/16/2025 12:2 1 PM CDT George Jeff MD POINT OF CARE TEST ORDER ANTONELLA Final Result documented in this encounter Visit Diagnoses Diagnosis Encounter for screening mammogram for malignant neoplasm of breast- Primary Type 2 diabetes mellitus without complication, without long-term current use of insulin (HCC) Encounter for immunization Need for vaccination Need for prophylactic vaccination and inoculation against unspecified single disease Mild persistent asthma, unspecified whether complicated Hyperlipidemia due to type 2 diabetes mellitus (HCC) Hypertension associated with diabetes (HCC) Unspecified essential hypertension S/P YEHUDA (total abdominal hysterectomy) Acquired absence of both cervix and uterus Obesity, morbid Morbid obesity Malignant neoplasm of left female breast, unspecified estrogen receptor status, unspecified site of breast (HCC) Need for hepatitis C screening test Special screening examination for other specified viral diseases Screening for thyroid disorder documented in this encounter Discontinued Medications Medication Sig Discontinue Reason Start Date End Da te clobetasoL (TEMOVATE) 0.05 % cream DIRECTED APPLY TWICE DAILY TO AFFECTED AREA(S) FOR 1 WEEK THEN 1 TIME DAILY FOR 1 WEEK THEN 2 TIMES WEEKLY Therapy completed 11/13/2019 08/16/2025 lisinopril-hydroCHLOROt hiazide (ZESTORETIC) 20-12.5 mg per tablet Take 2 tablets by mouth daily Therapy completed 09/27/2019 08/16/2025 cloNIDine (CATAPRES) 0.1 mg tablet cloNIDine HCl 0.1 MG Oral Tablet QTY: 0 tablet Days: 0 Refills: 0 Written: 06/21/19 Patient Instructions: TAKE ONE TABLET TWICE A DAY Therapy completed 06/21/2019 08/16/2025 acetaminophen-codeine (TYLENOL with CODEINE #3) 300-30 mg per tablet Take 1-2 tablets by mouth every 4-6 hours as needed for pain control. Therapy completed 11/03/2023 08/16/2025 glipiZIDE (GLUCOTROL) 5 mg tablet Take 1 tablet (5 mg total) by mouth daily Therapy completed 11/23/2019 08/16/2025 Trulicity 0.75 mg/0.5 mL pen injector 0.5 mL (0.75 mg total) by other route once a week 07/16/2023 08/16/2025 metFORMIN (GLUCOPHAGE) 500 mg tablet Take 500 mg by mouth daily Reorder 12/01/2020 08/16/2025 documented as of this encounter Historical Medications * This list may reflect changes made after this encounter. Medication Sig Dispense Quantity Refills Last Filled Start D ate End Date budesonide/glycopyr/ formoterol (BREZTRI AEROSPHERE INHAL) Inhale added in this encounter Orders Immunization/Injection Count Last Ordered Date First Ordered Date FLU VACCINE TRI (6 M OS UP) PF - FLULAVAL/FLUARIX/FLUZONE 1 08/16/2025 PNEUMOCOCCAL CONJUGATE VACCI NE 20 VALENT IM 1 08/16/2025 documented in this encounter Care Teams Singe Winder Relationship Specialty Start Date End Date George Jeff MD [address] [facility] [address] [place] [address] PCP - General Family Medicine 08/16/25 documented as of this encounter
--- OUTSIDE RECORDS SUMMARY | 2025-08-16 12:36 | XMS_ITS | Encounter Summary ---
Author Organization [facility] Address [address] [place] [address] Care Team Providers Care Senior Climate Advisor Name Role Phone George Jeff MD Primary Care Provider + Encounter Details Date Type Department Care Team (Latest Contact Info) Description 08/16/2025 12:36 PM CDT - 08/16/2025 11:59 PM CDT Hospital Encounter [facility] Outpatient Lab - Outpatient Center at [address] [address] Type 2 diabetes mellitus without complication, without long-term current use of insulin (HCC) Discharge Disposition: Discharge to home or self [...] on file 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 Never 08/16/2025 11:33 AM Bev Porter MA Q2: How many drinks containing alcohol do you have on a typical day when you are drinking? Patient does not drink 08/16/2025 11:33 AM Amanda Porter MA Q3: How often do you have six or more drinks on one occasion? Never 08/16/2025 11:33 AM Bev Porter MA documented as of this encounter Medications at Time of Discharge Advair Diskus 500-50 mcg/dose diskus inhaler USE 1 INHALATION TWICE A DAY 180 each 3 08/26/2020 albuterol HFA (PROVENTIL HFA,VENTOLIN HFA,PROAIR HFA) 90 mcg/actuation inhaler INHALE 1 PUFF BY MOUTH 4 TIMES DAILY NEEDED FOR SHORTNESS OF BREATH OR WHEEZING 02/10/2024 amLODIPine (NORVASC) 10 mg tablet Take 1 tablet (10 mg total) by mouth daily 90 tablet 1 11/23/2019 anastrozole (ARIMIDEX) 1 mg tablet 10/09/2022 atorvastatin (LIPITOR) 20 mg tablet Take 1 tablet (20 mg total) by mouth daily 12/01/2020 blood glucose diagnostic strip Diagnosis: Diabetes type 2 Blood testing frequency: 3 times a day 12/01/2020 budesonide/glyco pyr/formoterol (BREZTRI AEROSPHERE INHAL) Inhale cholecalciferol (VITAMIN D-3) 1,000 unit capsule Take by mouth daily cyanocobalamin (Vitamin B-12) 500 mcg tabletIndication s:Prevention of Vitamin B12 Deficiency Take 1 tablet (500 mcg total) by mouth daily dulaglutide (TRULICITY) 1.5 mg/0.5 mL pen injectorIndicati ons:type 2 diabetes mellitus Inject 0.5 mL (1.5 mg total) under the skin every 7 days 6 mL 08/16/2025 flash glucose scanning reader ([employer] ANDIE 14 DAY READER) misc 1 application every 2 (two) weeks 2 each 5 07/04/2019 metFORMIN (GLUCOPHAGE) 500 mg tablet Take 1 tablet (500 mg total) by mouth daily 90 tablet 08/16/2025 nystatin cream APPLY DIRECTED A 50 50 [...] Procedure Name Priority Date/Time Associated Diagnosis Comments ALBUMIN CREATININE RATIO, URINE Routine 08/16/2025 12:36 PM CDT Type 2 diabetes mellitus without complication, without long-term current use of insulin ([facility]) documented in this encounter Results * Albumin Creatinine Ratio, Urine (08/16/2025 12:36 PM CDT) Albumin Ur <12.0 mg/L Comment: Interpretive Data No reference range established. Current interpretive data was last revised 2019. Testing performed by: [address] [address] Creatinine Ur 182.3 mg/dL [facility] Comment: Interpretive Data No reference range established. Current interpretive data was last revised 2019. Testing performed by: [facility], [address] [place] [address]., [id number] Albumin Creatinine Ratio, Ur <7 1 - 29 mg/g [facility] Comment:Testing performed by : [address] [address] Urine 08/16/2025 12:3 6 PM CDT 08/16/2025 5:35 PM CDT George Jeff MD LAB URINE ORDERABLES Fin al Result [address] [address] [address] Department [place] [address] documented in this encounter Visit Diagnoses Diagnosis Type 2 diabetes mellitus without complication, without long-term current use of insulin (HCC) documented in this encounter Care Teams Senior Climate Advisor Relationship Specialty Start Date End Date George Jeff MD [address] [address] PCP - General Family Medicine 08/16/25 documented as of this encounter
[2025-08-17 11:02] LABS: Hematocrit 40.6 % (37.0-47.0); Hemoglobin 13.0 g/dL (12.0-15.0); Immature Granulocyte Percent A 0.3 % (0-0.5); Lymphocytes Absolute Auto 1.39 K/mm3 (0.9-3.2); Mean Corpuscular HGB Conc 32.0 g/dl (32-36); Mean Corpuscular Hemoglobin 27.4 pg (26-34); Mean Corpuscular Volume 85.5 fl (80-100); Nucleated Red Blood Cells Absolute Auto 0.000 K/mm3 (0.0-0.012); Nucleated Red Blood Cells Perc 0.0 % (0.0-0.2); Platelet Count Result 272 k/mm3 (150-375); Red Blood Count 4.75 M/mm3 (4.2-5.4); White Blood Count 6.0 K/mm3 (4.5-10.0)
--- OUTSIDE RECORDS SUMMARY | 2025-08-17 11:10 | XMS_ITS | Clinical Summary ---
Author Organization [facility] Address [address] [place] [address] Care Team Providers Care Cloth Mercerizing Supervisor Name Role Phone George Jeff MD Primary Care Provider + Allergies Active Allergy Reactions Criticality Noted Date Comments Latex Rash Medium 05/07/2022 Medications cyanocobalami n (Vitamin B-12) 500 mcg tabletIndicat ions:Preventi on of Vitamin B12 Deficiency Take 1 tablet (500 mcg total) by mouth daily Active turmeric root extract 500 mg capsule Take by mouth 2 (two) times a day. Active flash glucose scanning reader (Leisure[employer] ANDIE 14 DAY READER) misc 1 application every 2 (two) weeks 2 each 5 07/04/20 19 Active nystatin cream APPLY DIRECTED A 50 50 MIX WITH TRIAMCINOLONE CREAM TOPICALLY TO AFFECTED AREA THREE TIMES DAILY 11/17/19 20 Active amLODIPine (NORVASC) 10 mg tablet Take 1 tablet (10 mg total) by mouth daily 90 tablet 1 11/23/19 20 Active allopurinoL (ZYLOPRIM) 100 mg tablet Take 1 tablet (100 mg total) by mouth daily 90 tablet 1 11/23/19 20 Active Advair Diskus 500-50 mcg/dose diskus inhaler USE 1 INHALATION TWICE A DAY 180 each 3 08/26/20 20 Active anastrozole (ARIMIDEX) 1 mg tablet 10/09/20 22 Active atorvastatin (LIPITOR) 20 mg tablet Take 1 tablet (20 mg total) by mouth daily 12/01/19 21 Active blood glucose diagnostic strip Diagnosis: Diabetes type 2 Blood testing frequency: 3 times a day 12/01/19 21 Active cholecalcifer ol (VITAMIN D-3) 1,000 unit capsule Take by mouth daily Active albuterol HFA (PROVENTIL HFA,VENTOLIN HFA,PROAIR HFA) 90 mcg/actuation inhaler INHALE 1 PUFF BY MOUTH 4 TIMES DAILY NEEDED FOR SHORTNESS OF BREATH OR WHEEZING 02/10/20 24 Active budesonide/gl ycopyr/formot beny (BREZTRI AEROSPHERE INHAL) Inhale Active metFORMIN (GLUCOPHAGE) 500 mg tablet Take 1 tablet (500 mg total) by mouth daily 90 tablet 08/16/20 25 Active dulaglutide (TRULICITY) 1.5 mg/0.5 mL pen injectorIndic ations:type 2 diabetes mellitus Inject 0.5 mL (1.5 mg total) under the skin every 7 days 6 mL 08/16/20 25 Active lisinopril-hy droCHLOROthia zide (ZESTORETIC) 20-12.5 mg per tablet Take 2 tablets by mouth daily 180 tablet 1 09/27/20 19 2024 Discontinued(T herapy completed) clobetasoL (TEMOVATE) 0.05 % cream DIRECTED APPLY TWICE DAILY TO AFFECTED AREA(S) FOR 1 WEEK THEN 1 TIME DAILY FOR 1 WEEK THEN 2 TIMES WEEKLY 11/13/19 20 2024 Discontinued(T herapy completed) glipiZIDE (GLUCOTROL) 5 mg tablet Take 1 tablet (5 mg total) by mouth daily 90 tablet 3 11/23/19 20 2024 Discontinued(T herapy completed) cloNIDine (CATAPRES) 0.1 mg tablet cloNIDine HCl 0.1 MG Oral Tablet QTY: 0 tablet Days: 0 Refills: 0 Written: 06/21/19 Patient Instructions: TAKE ONE TABLET TWICE A DAY 06/21/20 19 2024 Discontinued(T herapy completed) metFORMIN (GLUCOPHAGE) 500 mg tablet Take 500 mg by mouth daily 12/01/19 21 2024 Discontinued(R eorder) acetaminophen -codeine (TYLENOL with CODEINE #3) 300-30 mg per tablet Take 1-2 tablets by mouth every 4-6 hours as needed for pain control. 40 tablet 11/03/19 24 2024 Discontinued(T herapy completed) Trulicity 0.75 mg/0.5 mL pen injector 0.5 mL (0.75 mg total) by other route once a week 07/16/202024 Discontinued Active Problems Problem Noted Date Diagnosed Date Obesity, morbid 08/16/2025 Assessment & Plan (08/16/2025 4:18 PM CDT): Arthralgia of hand 08/15/2025 Breast mass, left 08/15/2025 Chemotherapy induced neutropenia 08/15/2025 Fatigue 08/15/2025 Left ankle swelling 08/15/2025 Mild persistent asthma 08/15/2025 Assessment & Plan (08/16/2025 4:18 PM CDT): Nodule of finger 08/15/2025 Vitamin D deficiency 08/15/2025 Asthma exacerbation 08/15/2025 History of partial mastectomy, left 03/28/2024 Lymphedema of breast 03/28/2024 Closed displaced fracture of lateral malleolus of fibula with routine healing 01/21/2024 Malignant neoplasm of left female breast 021 Assessment & Plan (08/16/2025 4:18 PM CDT): Malignant neoplasm of breast 12/26/2020 Overview (08/15/2025): Note: invasive ductal carcinoma 12/23/20 bx COVID-19 11/28/2020 Lichen sclerosus et atrophicus 08/05/2020 Overview (08/15/2025): Note: Unchanged Menopause syndrome 06/14/2018 Depression 03/10/2014 Overview (01/27/2017): DEPRESSIVE DISORDER NEC Assessment & Plan (11/24/2019 8:07 PM FUR CUTTING 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): History of depression. Currently listed [...] symptoms in her Type 2 diabetes mellitus, cindi pat long-term current use of insulin 03/10/2014 Overview (07/15/2022): DMII WO CMP NT ST UNCNTR Assessment & Plan (08/16/2025 4:18 PM CDT): Orders: Albumin Creatinine Ratio, Urine; Future POCT hemoglobin A1c Assessment & Plan (11/24/2019 8:01 PM FUR CUTTING 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): Uncontrolled. Due for repeat hga1c. [...] daily basis. She was interested and the [employer]merix 14 day reader and the sample reader was given with refills on the reader. Patient was still not sure about applying the reader ever 14 days.. She will check cost on the reader refills and considerate Hyperlipidemia due to type 2 diabetes mellitus 0 03/10/2014 Overview (01/27/2017): PURE HYPERCHOLESTEROLEM Assessment & Plan (08/16/2025 4:18 PM CDT): Orders: Lipid panel; Future Assessment & Plan (11/24/2019 8:02 PM FUR CUTTING 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): Due for repeat lipid panel. Ordered today. Not currently on statin. F/u 6-7 weeks with lab results Assessment & Plan (07/06/2019 8:54 AM CDT): Lipid abnormalities are improving with treatment. Pharmacotherapy as ordered. Lipids will be reassessed in 6 months. Atopic rhinitis 03/10/2014 Overview (01/27/2017): ALLERGIC RHINITIS NOS Insomnia 03/10/2014 Overview (07/15/2022): PERSISTENT INSOMNIA S/P YEHUDA (total abdominal hysterectomy) 2 Assessment & Plan (08/16/2025 4:18 PM CDT): Resolved Problems Problem Noted Date Diagnosed Date Resolved Date Essential hypertension 08/15/202508/16 Hyperlipidemia associated wi th type 2 diabetes mellitus 08/15/2025 08/16/2025 Hyperlipidemia 12/01/2020 08/16/2025 Acute non-recurrent maxillary sinusitis 11/17/2018 07/04/2019 Asthma 03/10/2014 08/16/2025 Overview (01/27/2017): ASTHMA NOS Lichen 03/10/2014 11/24/2019 Overview (01/27/2017): LICHEN NOS HTN (hypertension) 03/10/2014 Overview (07/15/2022): BENIGN HYPERTENSION Assessment & Plan (11/24/2019 7:58 PM FUR CUTTING 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): Elevated in office today as patient is upset. She also takes all of her medication at bedtime. Clonidine makes her fatigued. Will discontinue clonidine. Increase amlodipine to 10mg daily. F/u 6-7 weeks Assessment & Plan (07/06/2019 8:53 AM CDT): Hypertension is improving with treatment. Continue current medications. Blood pressure will be reassessed 6 months. Encounters Date Type Department Care Team Description 08/16/2025 12:36 PM CDT - 08/16/2025 11:59 PM CDT Hospital Encounter [facility] Outpatient [facility] - Outpatient Center at [address] [address] Type 2 diabetes mellitus without complication, without long-term current use of insulin (HCC) Discharge Disposition: Discharge to home or self care 08/16/2025 11:30 AM CDT Office Visit [facility] Primary Care at [address] [place] [address] George Jeff MD Encounter for screening mammogram for malignant neoplasm [...] C screening test; Screening for thyroid disorder 08/16/2025 Telephone [facility] Primary Care at [address] [phone] George Jeff MD Medical Question from Last 3 Months Immunizations Immunization Administration Dates Next Due Influenza, Quadrivalent, Rec ombinant, Egg Free, Preservative Free, Intramuscular 08/23/2021 Influenza, Quadrivalent, Spl it, Preservative Free, Intramuscular 08/01/2023,07/13/2018,10/20/2017 Influenza, Split 10/21/2011,08/04/2010 Influenza, Trivalent, IM (MDV) 08/01/2014 Influenza, Trivalent, Preser vative Free, Intramuscular 08/16/2025 Influenza, Unspecified 07/25/2019,07/25/2018 Moderna SARS-CoV-2 Monovalen t Vaccination (12+ YRS) 01/04/2021,12/07/2020 Pneumococcal Conjugate Pcv20 08/16/2025 Pneumococcal Polysaccharide PPV23 08/04/2010 Tdap 08/04/2010 Surgical History Surgery Date Site/Laterality Comments TUBAL LIGATION Bilateral tubal ligation HYSTERECTOMY Medical History Medical History Date Comments Diabetes mellitus Asthma Malignant neoplasm of left female breast [...] Not Answered Alcohol Use Standard Drinks/Week Comments Never 0 [...] on file Legal Sex Female 8:35 AM FUR CUTTING 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 Gender Identity Not on file Sexual Orientation Not on file Occupation Industry Job Start Date Job End Date Soon to be retired from [employer] March 09 Not on file Not on file Not on file Obstetrics History Para Term AB IAB SAB Ectopic Multiple Livin g Live Births 3 1 1 2 2 Date Outcome GA Total Labor Labor/2nd/3rd Weight Sex Type Anes PTL Herminia A1 A5 Name Clin SAB SAB 1996 Term M C-S j incis Last Filed Vital Signs Vital Sign Reading Time Taken Comments Blood Pressure 142/82 08/16/2025 11:21 AM CDT Pulse 83 08/16/2025 11:21 AM CDT Temperature 36.3 C (97.3 F) 08/16/2025 11:21 AM CDT Respiratory Rate 16 09/06/2023 9:05 AM FUR CUTTING 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 Oxygen Saturation 96% 08/16/2025 11:21 AM CDT Inhaled Oxygen Concentration - - Weight 97.5 kg (215 lb) 08/16/2025 11:21 AM CDT Height 157.5 cm (5' 2) 08/16/2025 11:21 AM CDT Body Mass Index 39.32 08/16/2025 11:21 AM CDT Plan of Treatment Health Maintenance Due Date Last Done Comments Hepatitis C Screening 1965 Hepatitis B Screening 1981 Regular Well Visit/Exam 18-64 1981 Zoster Vaccine (1 of 2) 1982 Colon Cancer Screening-DNA Stool 11/12/2017 11/12/2014, 11/12/2014, 11/12/2014 eGFR 02/14/2020 02/13/2019, 03/26, 10/05/2017, Additional history exists Foot Exam 07/04/2020 07/04/2019, 10/20/2017 DTaP/Tdap/Td Vaccine (2 - Td or Tdap) 08/04/2020 08/04/2010 Dilated Eye Exam 09/02/2020 09/02/2019, 08/2018, 11/30/2016 Lipid Panel 11/29/2021 11/29/2020, 03/26, 10/05/2017, Additional history exists Covid-19 Vaccine (2024-2 6 season) 2025 08/23/2021, 01/04/2021, 12/07/2020 Hemoglobin A1C 02/14/2026 08/16/2025, 01/24, 02/13/2019, Additional history exists Breast Cancer Screening-Mammogram 03/29/2026 03/29/2025, 03/29/2025, 03/28/2024, Additional history exists Albumin Creatinine Ratio, Urine 08/16/2026 Depression Screening 08/16/2026 08/16/2025, 08/16/2025, 11/23/2019, Additional history exists Colon Cancer Screening-CT Colonography Discontinued 11/12/2014, 11/12/2014, 11/12/2014 Colon Cancer Screening-Colonoscopy Discontinued 11/12/2014, 11/12/2014, 11/12/2014 Colon Cancer Screening-FIT Discontinued 11/12, 11/12/2014, 11/12/2014 Colon Cancer Screening-Sigmoidoscopy Discontinued 11/12/2014, 11/12/2014, 11/12/2014 Influenza Vaccine Completed 08/16/2025, , 08/23/2021, Additional history exists Pneumococcal vaccine <65 Completed 08/16/2025, 07/25 Procedures Procedure Name Priority Date/Time Associated Diagnosis Comments ALBUMIN CREATININE RATIO, URINE Routine 08/16/2025 12:36 PM CDT Type 2 diabetes mellitus without complication, without long-term current use of insulin (HCC) POCT HEMOGLOBIN A1C Routine 08/16/2025 1 2:21 PM CDT Type 2 diabetes mellitus without complication, without long-term current use of insulin (HCC) HM DIABETES EYE EXAM Routine 09/02/2019 SCREENING MAMMOGRAM BILATERAL W SHAY Schedule Routine, Read Routine (OP Routine) 04/18/2019 10:15 AM CDT Breast screening, unspecified EGFR Routine 02/13/2019 11:52 AM CDT Type 2 diabetes mellitus with hyperglycemia, unspecified whether group home insulin use (HCC) LIPID PANEL Routine 04/20/2018 10:14 AM CDT Type 2 diabetes mellitus with hyperglycemia, unspecified whether terminal system operator insulin use (HCC) COLONOSCOPY IMAGES 11/12/2014 from Last 3 Months or Most Recently Relevant to Health Maintenance Results * Albumin Creatinine Ratio, Urine (08/16/2025 12:36 PM CDT) Albumin Ur <12.0 mg/L Comment: Interpretive Data No reference range established. Current interpretive data was last revised 2019. Testing performed by: [facility], [address] [place] [address], [place]., [address] Creatinine Ur 182.3 mg/dL JEFE LOVELL Comment: Interpretive Data No reference range established. Current interpretive data was last revised 2019. Testing performed by: [facility], [address] [place] [address], [place]., [address] Albumin Creatinine Ratio, Ur <7 1 - 29 mg/g JEFE LOVELL Comment:Testing performed by : [facility], [address] [facility], [place]., [address] Urine 08/16/2025 12:3 6 PM CDT 08/16/2025 5:35 PM CDT George Jeff MD LAB URINE ORDERABLES Fin al Result JEFE LOVELL [address] [facility] [place] [address] * (ABNORMAL) POCT hemoglobin A1c (08/16/2025 12:21 PM CDT) Hemoglobin A1C, POC 6.1(A) 4.0 - 5.6 % Blood 08/16/2025 12:2 1 PM CDT George Jeff MD POINT OF CARE TEST ORDER ANTONELLA Final Result * DIABETES EYE EXAM (09/02/2019) Diabetic Eye Exam Normal [facility] Provider HEALTH MAINTENANCE Final Result * Screening [...] eGFR 100 mL/min/1.7 3 m2 JEFE FOX (MERETA) Comment: Interpretive Data Reference Interval Normal >/= 90 mL/min/1.73m2 Mildly decreased* 60 - 89 mL/min/1.73m2 Mildly to moderately decreased 45 - 59 mL/min/1.73m2 Moderately to severely decreased 30 - 44 mL/min/1.73m2 Severely decreased 15 - 29 mL/min/1.73m2 Kidney Failure < 15 mL/min/1.73m2 *Relative to young adult level If -Kosovan multiply value by 1.16. Estimated glomerular filtration [...] BLOOD ORDERABLES F inal Result JEFE FOX (MERETA) 1 [facility] Department of Laboratories [place], [place] [id number] * Lipid panel (04/20/2018 10:14 AM CDT) Cholesterol 196 40 - 199 mg/dL JEFE FOX (MERETA) Comment: Interpretive Data Desirable: Less than 200 [...] F inal Result JEFE FOX (BERTA) 1 [facility] Department [place] [address] * COLONOSCOPY IMAGES (11/12/2014) Anatomical Region Laterality Modality Other Narrative 11/12/2014 Ordered by an unspecified provider. Historical Provider MD DOTY PROCEDURE ORDERABLES F inal Result from Last 3 Months or Most Recently Relevant to Health Maintenance Insurance [employer] CHOICE PLUS Member Subscriber Plan / Payer (Ef fective 2016-Present) Name:Kevin Chakraborty Relation to Subscriber:Self Name:Kevin Chakraborty Payer ID:[id number] (NAIC) Type:[employer] HMO/PPO Address: [address] CHOICE PLUS [employer] CHOICE PLUS [employer] CHOICE PLUS Care Teams Cloth Mercerizing Supervisor Relationship Specialty Start Date End Date George Jeff MD [address] [facility] [address] [place] [address] PCP - General Family Medicine 08/16/25
--- OUTSIDE RECORDS SUMMARY | 2025-08-17 11:10 | XMS_ITS | Encounter Summary ---
Author Organization [facility] Address [address] [place] [address] Care Team Providers Care Energy Control Officer Name Role Phone George Jeff MD Primary Care Provider + Reason for Visit * Reason Onset Date Comments Medical Question 08/16/2025 Encounter Details Date Type Department Care Team (Late st Contact Info) Description 08/16/2025 Telephone [facility] Primary Care at [address] [place] [address] George Jeff MD [address] [place] [address] [address] [place] [address] Medical Question Social History Tobacco Use Types Packs/Day [...] on file Legal Sex Female 8:35 AM MOTION PICTURE PROJECTIONIST Gender Identity Not on file Sexual Orientation Not on file Occupation Industry Job Start Date Job End Date Soon to be retired from [employer] March 09 Not on file Not on file Not on file documented as of this encounter Functional Status * AUDIT-C Score Answer Date of Assessment Author 0 08/16/2025 11:33 AM BAILEET Amanda Archer i, MA * Question Answer [...] on one occasion? Never 08/16/2025 11:33 AM BAILEET Bev Whitt MA documented as of this encounter Miscellaneous Notes * Telephone Encounter - Libby Davis - 08/16/2025 4:57 PM CDT Patient has been notified. * Telephone Encounter - Libby Davis - 08/16/2025 3:29 PM CDT Patient wanted to clarify if she needed to be seen in 4 weeks or 4 months. She is currently scheduled for 4 weeks per providers note. documented in this encounter Plan of Treatment Not on file documented as of this encounter Visit Diagnoses Not on filedocumented in this encounter Care Teams Energy Control Officer Relationship Specialty Start Date End Date George Jeff MD [address] [facility] [address] [place] [address] PCP - General Family Medicine 08/16/25 documented as of this encounter
--- OUTSIDE RECORDS SUMMARY | 2025-08-17 11:10 | XMS_ITS | Clinical Summary ---
Author Organization [facility] Address [address] [place] [address] Care Team Providers Care Video Recorder Mechanic Name Role Phone Unavailable Primary Care Provider Unavailabl e Source Comments [facility],non-owned Affiliates and Associated Physician Practices is amultiple site organization consisting of ambulatory clinics and hospital sitesin [place], [place], [place] and [place]. This disclosure is being madepursuant to the Care Everywhere program and may not contain all information available regarding this patient. Last updated 18.[facility] Allergies No known active allergies Social History Tobacco Use Types Packs/Day Years Used Date Smoking Tobacco: Never Alcohol Use Standard Drinks/Week Comments Yes 0 (1 standard drink = 0.6 oz pur e alcohol) occationally Comments Unknown Sex and Gender Information Value Date Recorded Sex Assigned at Not on file Legal Sex Female 6:07 AM STORE DETECTIVE Gender Identity Not on file Sexual Orientation [...] SMEAR 04/17/2014 04/17/2011 (Previously completed) DEPRESSION SCREENING 10/25/2024 COVID-19 VACCINE (2023-2 5 season) 2025 INFLUENZA VACCINE (#1) 2025 Respiratory Syncytial Virus (RSV) Vaccine Pt: [...] CHAKRABORTY Subscriber ID:Not on file (Home) Address: [address] [place] [id number] Payer ID:Not on file Group ID:Not on file Type:Self Pay Address: [facility]
--- OUTSIDE RECORDS SUMMARY | 2025-08-17 11:10 | XMS_ITS | Clinical Summary ---
Author Organization [facility] Address [address] [place] [address] Phone Care Team Providers Care Guidance Secretary Name Role Phone Rosa Shi MD Primary Care Provider [phone] Allergies No known active allergies Medications fluticasone-césar [...] Comments Blood Pressure 172/88 12/01/2020 7:00 AM POUNCING 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 Pulse 89 12/01/2020 9:06 AM POUNCING 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 Temperature 36.2 C (97.2 F) 12/01/2020 7:00 AM POUNCING 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 Respiratory Rate 18 12/01/2020 9:06 AM POUNCING 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 Oxygen Saturation 90% 12/01/2020 9:06 AM POUNCING 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 Inhaled Oxygen Concentration - - Weight 106.6 kg (235 lb) 11/28/2020 7:13 AM POUNCING 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 Height 160 cm (5' 3) 11/28/2020 7:13 AM POUNCING 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 Body Mass Index 41.63 11/28/2020 7:13 AM POUNCING 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 Plan of Treatment Health Maintenance Due Date Last Done Comments Diabetes: Eye Exam 1965 Diabetes: Foot Exam 1963 Hepatitis C Virus (HCV) Screening 1965 TdaP Immunization 1963 Pneumococcal Immunization (50+ years) (1 of 2 - PCV) 1982 Cologuard 2008 Colonoscopy 2008 Colorectal Cancer Screening 2008 Immunochemical Fecal Occult Blood 2008 Zoster Immunization (1 of 2) 2013 Diabetes: Hemoglobin A1c 05/29/2021 11/29/2020 Diabetes: Nephropathy Screening 12/01/2021 12/01/2020, 11/30/2020, 11/29/2020, Additional history exists Influenza Immunization (#1) 2025 10/0 10/2018, 07/25/2018, 07/13/2018 SARS-COV-2 Immunization ( season) 2025 08/23/2021, 01/04/2021, 12/07/2020 Respiratory Syncytial Virus (RSV) Immunization (Adult) (1 - 1-dose 75+ series) 2038 Hepatitis B Immunization Aged Out No longer eligible based on patient's age to complete this topic Human Papillomavirus (HPV) Immunization Aged Out No longer eligible based on patient's age to complete this topic Meningococcal Immunization (ACWY) Aged Out No longer eligible based on patient's age to complete this topic Rotavirus Immunization Aged Out No lo nger eligible based on patient's age to complete this topic Procedures Procedure Name Priority Date/Time Associated Diagnosis Comments CMP (COMPREHENSIVE METABOLIC PANEL) Routine 12/01/2020 6:21 AM POUNCING 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 HEMOGLOBIN A1C W/ ESTIMATED GLUCOSE Routine 11/29/2020 4:00 AM POUNCING 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 from Last 3 Months or Most Recently Relevant to Health Maintenance Results * (ABNORMAL) CMP (Comprehensive Metabolic Panel) (12/01/2020 6:21 AM POUNCING 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) SODIUM 139 136 - 144 mmol/L 12/01/2020 6:48 AM POUNCING 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 [facility] POTASSIUM 4.0 3.5 - 5.1 mmol/L 12/01/2020 6:48 AM POUNCING 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 [facility] CHLORIDE 100 100 - 110 mmol/L 12/01/2020 6:48 AM POUNCING 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 [facility] CO2, VENOUS 29 22 - 32 mmol/L 12/01/2020 6:48 AM POUNCING 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 [facility] ANION GAP 14.0 8.0 - 20.0 mmol/L 12/01/2020 6:48 AM POUNCING 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 [facility] GLUCOSE 72 70 - 99 [...] Blood Venipuncture / Unknown 12/01/2020 6:21 AM POUNCING 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 12/01/2020 6:25 AM POUNCING 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 Patrick Oliva MD CHEMISTRY ORDERABLES Final Res ult Performing Organization Address City/[facility] Co de Phone Number [facility] [address] [place] [address] * (ABNORMAL) Hemoglobin A1C w/ Estimated Glucose (11/29/2020 4:00 AM POUNCING 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) HGB-A1C 8.5(H) 4.0 - 6.0 % 11/29/2020 7:19 AM POUNCING 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 [facility] Est Average Glucose 197.3 mg/dL 11/29/2020 7:19 AM POUNCING 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 [facility] Blood Butterfly Punctu re / Unknown 11/29/2020 4:00 AM POUNCING 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 11/29/2020 4:19 AM POUNCING 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 Narrative [facility] - 11/29/2020 7:19 AM POUNCING 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 HEMOGLOBIN A1C: DIABETIC PATIENTS: WELL-CONTROLLED: 6.2 - 7.0 INTERMEDIATE WELL-CONTROLLED: 7.0 - 9.0 POORLY-CONTROLLED: >9.0 Komal Lugo APRN, GLOBAL SUPPLY CHAIN VICE PRESIDENT CHEMISTRY ORDERABLES Final Result Performing Organization Address City/[facility] Co de Phone Number [facility] [address] [place] [address] from Last 3 Months or Most Recently Relevant to Health Maintenance Advance Directives * Full Code (Latest Code Status on File) Date Activated Date Inactivated Comments 11/28/2020 9:45 AM 12/01/2020 1:45 PM CPR-Full Treat ment: FULL ARREST: Attempt Resuscitation/CPR wit intubation and mechanical ventilation. PRE-ARREST: Use entire range of life support measures to stabilize the patient. Care Teams Guidance Secretary Relationship Specialty Start Date End Date Rosa Shi MD [address] [place] [address] PCP - General Family Medicine 11/28/20
[2025-08-17 13:44] LABS: Alanine Aminotransferase 22 U/L (6-35); Albumin Level 3.9 g/dL (3.5-5.1); Alkaline Phosphatase 118 U/L (38-126); Anion Gap 8 mmol/L (4-12); Aspartate Amino Transferase 54 U/L (14-36); Bilirubin,Total 0.3 mg/dL (0.2-1.3); Blood Urea Nitrogen 13 mg/dL (7-17); Calcium 8.9 mg/dL (8.4-10.2); Carbon Dioxide 27 mmol/L (22-30); Chloride 104 mmol/L (98-107); Estimated Glomerular Filt Rate > 60; Glucose 121 mg/dL (65-110); Potassium 3.5 mmol/L (3.4-5.0); Sodium 139 mmol/L (137-145); Total Protein 7.3 g/dL (6.3-8.2)
== END 2025-08-17 10:50 | disposition home or self-care (01) ==
LOC: ANHLAB 10:50
PROVIDERS: PCP Family Medicine; Visit Provider Internal Medicine Hematology & Oncology
DX: C50.012 Malignant neoplasm of nipple and areola, left female breast (principal); Z17.0 Estrogen receptor positive status [ER+]
CPT/HCPCS: 36415; 80053; 85025; 86300